=== PATIENT | female | born 1985 | race Caucasian/White ===

== ENCOUNTER → 2018-04-16 12:22 | Outpatient (CLI) | payer OTHER, SELFPAY ==
--- NOTE | 2018-04-16 | XR_ITS ---
XR lumbar spine min 4V Ordering Physician: Luciano Falk MD Patient Age: 32 years: Female HISTORY: ITS.REASON: ACUTE MID LBP WITHOUT SCIATICA Low back pain TECHNIQUE: Five-view lumbar spine series COMPARISON : CT lumbar spine 04/07/2014, & plain films lumbar spine 04/03/2014 FINDINGS . Large patient. Imaging is somewhat decreased resolution due to the patient's large size. Vertebral bodies appear intact L5/S1. Mild Degenerative disc space narrowing. Previous 2013 CT showed left paracentral disc protrusion.. Question, & suspect may have been been interval discectomy, laminectomy noting what appears to be partial resection at the inferior spinous process of L5 on the lateral view. Correlation clinically required. Mild degenerative facet changes L5-S1 L4/5 bilaterally evident. The other disc spaces the lumbar spine appear intact pedicles transverse processes SI joints unremarkable. Moderate stool throughout the colon IMPRESSION.......... No acute findings. Mild degenerative disc space narrowing at L5/S1. Question Possible previous discectomy & laminectomy at this L5/S1 level. -Question/ & suggestion partial resection inferior L5 spinous process on lateral view.
== END ==
PROVIDERS: PCP Internal Medicine Adolescent Medicine; Visit Provider Internal Medicine Adolescent Medicine
DX: M54.5 Low back pain (principal)
CPT/HCPCS: 72110

== ENCOUNTER → 2018-05-10 13:59 | Outpatient (POV) | payer OTHER, SELFPAY | PROVIDERS: Family Provider Internal Medicine Adolescent Medicine; PCP Internal Medicine Adolescent Medicine; Visit Provider Nurse Practitioner Acute Care | DX: Z00.00 Encounter for general adult medical examination without abnormal findings (principal) ==

== ENCOUNTER → 2018-05-11 10:33 | Outpatient (CLI) | payer OTHER, SELFPAY ==
--- NOTE | 2018-05-11 10:41 | NVE_ITS ---
Venous Exam Indications: 729.5 Pain in limb. IMPRESSIONS 1. There is no evidence of significant Reflux. 2. No evidence of deep or superficial vein thrombosis involving the right lower extremity 3. No evidence of deep or superficial vein thrombosis involving the left lower extremity Complete lower extremity venous duplex evaluation. Doppler flow study including spectral analysis, color and alberto scale imaging. Location: Vascular laboratory. Patient status: Outpatient. Tables: Venous flow and imaging: + +-------+ + Location Overall Flow properties + +-------+ + Right common femoral Patent Normal phasicity; spontaneous; normal augmentation; compressible + +-------+ + Right saphenofemoral junction Patent Compressible + +-------+ + Right profunda femoral Patent Compressible + +-------+ + Right femoral Patent Normal phasicity; spontaneous; normal augmentation; compressible; no reflux + +-------+ + Right greater saphenous Patent Normal phasicity; spontaneous; normal augmentation; compressible + +-------+ + Right popliteal Patent Normal phasicity; spontaneous; normal augmentation; compressible + +-------+ + Right posterior tibial Patent Compressible + +-------+ + Right peroneal Patent Compressible + +-------+ + Right gastrocnemius Patent Compressible + +-------+ + Right soleal Patent Compressible + +-------+ + Left common femoral Patent Normal phasicity; spontaneous; normal augmentation; compressible + +-------+ + Left saphenofemoral junction Patent Compressible + +-------+ + Left profunda femoral Patent Compressible + +-------+ + Left femoral Patent Normal phasicity; spontaneous; normal augmentation; compressible + +-------+ + Left greater saphenous Patent Normal phasicity; spontaneous; normal augmentation; compressible + +-------+ + Left popliteal Patent Normal phasicity; spontaneous; no
== END ==
PROVIDERS: Family Provider Internal Medicine Adolescent Medicine; PCP Internal Medicine Adolescent Medicine; Visit Provider Internal Medicine Adolescent Medicine
DX: M79.604 Pain in right leg (principal)
CPT/HCPCS: 93970

== ENCOUNTER → 2018-05-28 08:40 | Outpatient (CLI) | payer OTHER, SELFPAY ==
--- NOTE | 2018-05-28 08:44 | CT_ITS ---
CT angio chest HISTORY: Palpitations, chest pain, tension ascending aorta, heart murmur ITS.REASON: cta chest ORDERING PHYSICIAN: Woo Cleaning MD PATIENT AGE: 33 years COMPARISON: None TECHNIQUE: Axial images obtained following the administration of 75 mL of Isovue 370 . Sagittal, and coronal reformatted images are also generated and reviewed. All CT scans at the facility use one or more dose reduction, viz: automated exposure control, ma/kV adjustment per patient size (including targeted exams where dose is matched to indication, i.e. head), or iterative reconstruction technique. FINDINGS: PULMONARY ARTERIES:No pulmonary embolus evident. AORTA:No acute finding. No thoracic aortic aneurysm or dissection evident LUNGS:There is calcified granuloma right upper lobe. There are minimal dependent changes in the lung bases. Lungs are otherwise clear PLEURAL SPACES:No significant effusion. No evidence of pneumothorax. HEART:Unremarkable. Normal heart size. No significant pericardial effusion. MEDIASTINAL AND HILAR STRUCTURES:No mediastinal or hilar mass evident. No dominant adenopathy. BONY STRUCTURES:No acute bony abnormalities apparent LYMPH NODES:No enlarged lymph nodes evident UPPER ABDOMEN:Unremarkable IMPRESSION: No acute finding. No evidence of aortic aneurysm or dissection and no evidence of pulmonary embolus
== END ==
PROVIDERS: Family Provider Internal Medicine Adolescent Medicine; PCP Internal Medicine Adolescent Medicine; Visit Provider Internal Medicine
DX: R07.9 Chest pain, unspecified (principal); R06.00 Dyspnea, unspecified; R00.2 Palpitations; F41.9 Anxiety disorder, unspecified; G43.909 Migraine, unspecified, not intractable, without status migrainosus; I10 Essential (primary) hypertension; I95.1 Orthostatic hypotension; J45.909 Unspecified asthma, uncomplicated; K21.9 Gastro-esophageal reflux disease without esophagitis; Q79.6 Ehlers-Danlos syndromes; R42 Dizziness and giddiness; Z85.42 Personal history of malignant neoplasm of other parts of uterus; Z86.711 Personal history of pulmonary embolism; Z86.718 Personal history of other venous thrombosis and embolism; Z87.891 Personal history of nicotine dependence
CPT/HCPCS: 71275; Q9967

== ENCOUNTER → 2018-06-22 14:54 | Outpatient (CLI) | payer OTHER, SELFPAY ==
--- NOTE | 2018-06-22 14:56 | XR_ITS ---
XR foot wt bearing RT 3V HISTORY: ITS.REASON: pain ORDERING PHYSICIAN: Camilla Darden DPM PATIENT AGE: 33 years COMPARISON: None FINDINGS: No fracture or dislocation. No lytic or blastic change. There is normal mineralization.. The joint spaces are well-preserved. No significant degenerative/arthritic changes. No erosive changes evident. There is a small calcaneal spur without erosive change IMPRESSION: Negative, no acute finding
--- NOTE | 2018-06-22 14:56 | XR_ITS ---
XR ankle wt bearing RT min 3V HISTORY: ITS.REASON: pain ORDERING PHYSICIAN: Camilla Darden DPM PATIENT AGE: 33 years Comparison: None FINDINGS: No fracture or dislocation. No lytic or blastic change. There is normal mineralization.. The joint spaces are well-preserved. No significant degenerative/arthritic changes. No erosive changes evident. IMPRESSION: Negative ankle, no acute finding
--- NOTE | 2018-06-22 14:56 | XR_ITS ---
XR foot wt bearing LT 3V HISTORY: ITS.REASON: pain ORDERING PHYSICIAN: Camilla Darden DPM PATIENT AGE: 33 years COMPARISON: None FINDINGS: No fracture or dislocation. No lytic or blastic change. There is normal mineralization.. The joint spaces are well-preserved. No significant degenerative/arthritic changes. No erosive changes evident. Small calcific density overlies the mid aspect of the cuneiforms on the lateral view nonspecific. IMPRESSION: Negative, no acute finding
--- NOTE | 2018-06-22 14:56 | XR_ITS ---
XR ankle wt bearing LT min 3V HISTORY: ITS.REASON: pain ORDERING PHYSICIAN: Camilla Darden DPM PATIENT AGE: 33 years Comparison: None FINDINGS: No fracture or dislocation. No lytic or blastic change. There is normal mineralization.. The joint spaces are well-preserved. No significant degenerative/arthritic changes. No erosive changes evident. IMPRESSION: Negative ankle, no acute finding
== END ==
PROVIDERS: PCP Internal Medicine Adolescent Medicine; Visit Provider Podiatrist
DX: M19.072 Primary osteoarthritis, left ankle and foot (principal); M19.071 Primary osteoarthritis, right ankle and foot; M21.6X1 Other acquired deformities of right foot; M21.6X2 Other acquired deformities of left foot; M76.72 Peroneal tendinitis, left leg; M25.371 Other instability, right ankle; Q66.89 Other specified congenital deformities of feet
CPT/HCPCS: 73610; 73630

== ENCOUNTER → 2018-07-01 12:30 | Outpatient (CLI) | payer OTHER, SELFPAY ==
--- NOTE | 2018-07-01 12:32 | MR_ITS ---
MR foot LT wo/w con HISTORY: Right foot pain, pain in the entire foot ITS.REASON: pain ORDERING PHYSICIAN: Camilla Darden DPM PATIENT AGE: 33 years Comparison: None TECHNIQUE: Standard multiplanar multiecho sequences are performed without and with gadolinium enhancement. FINDINGS: The exam is performed of the entire foot and ankle. Larger field of view decreases the sensitivity of the exam. No obvious fracture or dislocation.. There is a small amount of fluid at the talonavicular joint with mild osteoarthritic changes of the talonavicular joint. Small amount of fluid is also present along the superior aspect of the calcaneus at the posterior talar calcaneal joint. There is increased T2 signal involving the central and inferior aspect of the calcaneus. This area measures approximate 8 mm. Just superior to this in the subarticular region of the posterior subtalar articulation there is a cystic area measuring 7 x 3 mm. This is of questioned clinical significance. There is some mild widening of the distal aspect of the posterior tibialis tendon just proximal to the navicular insertion suggesting tendinopathy/tendinosis with only slight increase T2 signal. No obvious ligamentous abnormalities. Small amount of fluid also noted at the first through fifth metatarsophalangeal joints. IMPRESSION: 1. Tendinopathy/tendinosis of the distal aspect of the posterior tibialis tendon. 2. First through fifth metatarsophalangeal joint synovitis 3. Nonspecific edema involves the mid aspect of the calcaneus with a small cystic area in the mid aspect of the calcaneus as well. 4. Osteoarthritic change of the talonavicular joint with small amount of fluid at this region
== END ==
PROVIDERS: PCP Internal Medicine Adolescent Medicine; Visit Provider Podiatrist
DX: Q66.89 Other specified congenital deformities of feet (principal)
CPT/HCPCS: 73720; A9576

== ENCOUNTER → 2018-07-16 12:56 | Outpatient (CLI) | payer OTHER, SELFPAY ==
--- NOTE | 2018-07-16 13:00 | MR_ITS ---
MR ankle RT wo con CLINICAL INDICATION: Ankle pain and instability ITS.REASON: pain ORDERING PHYSICIAN: Camilla Darden DPM PATIENT AGE: 33 years Comparison: 06/22/2018 TECHNIQUE: Routine multiplanar multiecho sequences are performed without contrast. The patient gives a history of allergic reaction to gadolinium therefore, gadolinium was not utilized. FINDINGS: There is slight increased T2 bone marrow signal intensity involving the mid aspect of the calcaneus laterally just inferior to the posterior subtalar joint. There is minimal increased T2 signal involving the anterior aspect of the calcaneus at the mid subtalar region. Small amount fluid is present posterior to the posterior talocalcaneal joint space. There is some increased T2 signal within the soft tissues in this region. Small amount fluid is also present posterior tibial talar joint. The talar dome has an unremarkable appearance. Small area of loculated fluid signal intensity is present along the anterolateral aspect of the midfoot adjacent to the anterior and lateral aspect of the distal aspect of the talus. This area measures approximately 19 x 7 mm and does not appear to be associated with the extensor digitorum longus. No obvious ligamentous or tendinous abnormality. IMPRESSION: 1. Bone marrow edema involving the mid aspect of the calcaneus which could be postinflammatory or posttraumatic. 2. Small posterior talocalcaneal effusion with a small amount loculated fluid at the posterior tibiotalar joint as well. 3. Loculated small collection of fluid along the anterior and lateral aspect of the distal talus.
--- NOTE | 2018-07-16 13:00 | MR_ITS ---
MR foot RT wo con CLINICAL INDICATION: Foot and ankle pain and instability ITS.REASON: pain ORDERING PHYSICIAN: Camilla Darden DPM PATIENT AGE: 33 years Comparison: None FINDINGS: Mild degree of artifact which does somewhat obscure fine detail There is slight increased T2 bone marrow signal intensity involving the mid aspect of the calcaneus laterally just inferior to the posterior subtalar joint. There is minimal increased T2 signal involving the anterior aspect of the calcaneus at the mid subtalar region. Small amount fluid is present posterior to the posterior talocalcaneal joint space. There is some increased T2 signal within the soft tissues in this region. Small amount fluid is also present posterior tibial talar joint. The talar dome has an unremarkable appearance. Small area of loculated fluid signal intensity is present along the anterolateral aspect of the midfoot adjacent to the anterior and lateral aspect of the distal aspect of the talus. This area measures approximately 19 x 7 mm and does not appear to be associated with the extensor digitorum longus. No obvious ligamentous or tendinous abnormality. No fracture or dislocation. No evidence of stress fracture. Normal alignment. A small amount fluid is present along the distal aspect of the first and second metatarsal junction IMPRESSION: 1. Bone marrow edema involving the mid aspect of the calcaneus which could be postinflammatory or posttraumatic. 2. Small posterior talocalcaneal effusion with a small amount loculated fluid at the posterior tibiotalar joint as well. 3. Loculated small collection of fluid along the anterior and lateral aspect of the distal talus. 4. Small amount of fluid between the distal aspect of the first and second metatarsal which may be due to intermetatarsal bursitis
[2018-07-16 14:45] LABS: Thyroid Stimulating Hormone 2.59 uIU/ml (0.358-3.740); Uric Acid 5.9 mg/dL (2.6-7.2)
[2018-07-16 15:13] LABS: Erythrocyte Sedimentation Rate 26 mm/hr (0-20)
[2018-07-19 09:34] LABS: Folate 11.1 ng/mL (>3.0); RA Latex Turbid. <10.0 IU/mL (0.0-13.9); Vitamin B12 593 pg/mL (232-1245); Vitamin D 25 Hydroxy 20.5 ng/mL (30.0-100.0)
[2018-07-20 10:28] LABS: Antinuclear Antibodies, IFA Positive (.)
== END ==
PROVIDERS: PCP Internal Medicine Adolescent Medicine; Visit Provider Podiatrist
DX: Q66.89 Other specified congenital deformities of feet (principal)
CPT/HCPCS: 36415; 73718; 73721; 82607; 82652; 82746; 84443; 84550; 85651; 86038; 86431

== ENCOUNTER → 2018-07-16 14:36 | Outpatient (CLI) | payer OTHER, SELFPAY ==
--- NOTE | 2018-07-16 14:50 | MM_ITS ---
MM Dig screening mamm BI w/CAD ORDERING PHYSICIAN : Luciano Falk MD PATIENT AGE: 33 years GENDER: Female COMPARISON: We have been waiting to obtain previous comparison mammogram studies from [facility] but they have not arrived. And in this appears to be a negative mammogram shows dictated facilitate patient care INDICATION: ITS.REASON: SCREENING. No hormones. Previous stereotactic biopsy left breast. Family history. Mother with breast cancer age 27. Maternal grandmother with breast cancer age 50. Maternal aunt with breast cancer age 40 TECHNIQUE: Standard CC and MLO images were obtained. R2 CAD reviewed. Additional nipple profile MLO views bilateral FINDINGS: Low-density breast with generalized fatty replacement. No dominant mass nor suspicious calcifications in either breast. RIGHT BREAST:No areas of significant concern. Follow-up in one year LEFT BREAST: . A metallic clip from previous stereotactic biopsy upper-outer quadrant left breast. Scant area minimal nodularity at left breast on cc view dissipates on the2 MLO views. Other to what appear to be small intramammary nodes in the deep axillary tail the left breast. These can be followed in one year. No significant areas of concern. IMPRESSION: No areas of significant concern in either breast. .. Low-density breast. Bilateral follow-up in one year recommended & should be encouraged-, particularly in view of family history BI-RADS Category: 2 Benign Finding(s) RECOMMENDED FOLLOW-UP: 1YR 1 YEAR FOLLOW-UP (A letter has been sent to the patient regarding results of the study.)
== END ==
PROVIDERS: PCP Internal Medicine Adolescent Medicine; Visit Provider Internal Medicine Adolescent Medicine
DX: N64.4 Mastodynia (principal)
CPT/HCPCS: 77067

== ENCOUNTER → 2018-08-12 12:00 | Outpatient (CLI) | payer OTHER, SELFPAY ==
--- NOTE | 2018-08-12 12:02 | XR_ITS ---
XR knee LT 4V, XR knee RT 4V Ordering Physician: Zully Hannon MD Patient Age: 33 years: Female HISTORY: ITS.REASON: b/l knee pain . Technique: Weightbearing AP, lateral and Krishnamurthy views were performed as well as oblique. Performed at left knee and right knee. === LEFT KNEE . Joint spaces adequate with no joint effusion. Medial and lateral compartment adequate maintained. Satisfactory patellofemoral relationships on the sunrise view Bones well mineralized. Soft tissues unremarkable ======= RIGHT KNEE Joint spaces adequate with no joint effusion. Medial and lateral compartment adequate maintained. Satisfactory patellofemoral relationships on the sunrise view Bones well mineralized. Soft tissues unremarkable IMPRESSION Right and left knee intact. Right and left knee joint spaces overall fairly well-maintained with no joint effusion evident either knee.
--- NOTE | 2018-08-12 14:56 | NVE_ITS ---
Venous Exam Indications: 729.81 Swelling of limb. 729.5 Pain in limb x 8 yrs IMPRESSIONS 1. There is no evidence of significant Reflux. 2. No evidence of deep or superficial vein thrombosis involving the right lower extremity and left lower extremity History: PMH: Pulmonary embolus. Deep vein thrombosis. Risk factors: Obese. Malignancy: skin, uterine. Complete lower extremity venous duplex evaluation. Doppler flow study including spectral analysis, color and alberto scale imaging. Location: Vascular laboratory. Patient status: Outpatient. Tables: Venous flow and imaging: + + + + + Location Overall Flow properties Comments + + + + + Right common femoral Patent Normal phasicity; spontaneous; normal augmentation; compressible + + + + + Right saphenofemoral Patent Compressible junction + + + + + Right profunda Patent Compressible femoral + + + + + Right femoral Patent Normal phasicity; spontaneous; normal augmentation; compressible; no reflux + + + + + Right greater Patent Normal phasicity; saphenous spontaneous; normal augmentation; compressible + + + + + Right popliteal Patent Normal phasicity; spontaneous; normal augmentation; compressible + + + + + Right posterior Difficult Compressible Difficult to tibial study image. + + + + + Right peroneal Difficult Compressible Difficult to study image. + + + + + Right gastrocnemius Not visualized + + + + + Right soleal Not visualized + + + + + Left common femoral Patent Normal p
== END ==
PROVIDERS: PCP Internal Medicine Adolescent Medicine; Visit Provider Orthopaedic Surgery
DX: M25.561 Pain in right knee (principal); M25.562 Pain in left knee
CPT/HCPCS: 73564; 93970

== ENCOUNTER → 2018-08-26 07:49 | Outpatient (CLI) | payer OTHER, SELFPAY ==
--- NOTE | 2018-08-26 07:52 | MR_ITS ---
MR knee LT wo con HISTORY: Posterior knee pain, hyperextension injury with instability ITS.REASON: left knee pain/ without contrast ORDERING PHYSICIAN: Zully Hannon MD PATIENT AGE: 33 years Comparison: 08/12/2019 TECHNIQUE: Standard multiplanar multiecho sequences are performed without contrast. FINDINGS: The knee is hyperextended. The posterior cruciate in the anterior cruciate ligaments are unremarkable. The collateral ligaments have an unremarkable appearance. No evidence of meniscal tear. Quadriceps tendon is unremarkable. The patellar tendon is buckled secondary to the hyperextension of the knee. There is lateral subluxation of the patella with a shallow trochlea groove. The medial trochlear facet appears somewhat small suggesting trochlear dysplasia. The patellar cartilage is preserved. There are small amount of fluid within the knee joint. No bone bruises are evident IMPRESSION: 1. Hyperextension of the knee with buckling of the patellar tendon 2. 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 3. No internal derangement
== END ==
PROVIDERS: PCP Internal Medicine Adolescent Medicine; Visit Provider Orthopaedic Surgery
DX: M21.869 Other specified acquired deformities of unspecified lower leg (principal)
CPT/HCPCS: 73721

== ENCOUNTER → 2018-09-09 12:51 | Outpatient (CLI) | payer OTHER, SELFPAY ==
--- NOTE | 2018-09-09 12:51 | MR_ITS ---
MR knee RT wo con HISTORY: ITS.REASON: Rt knee pain ORDERING PHYSICIAN: Zully Hannon MD PATIENT AGE: 33 years Comparison: 08/12/2018 TECHNIQUE: Standard multiplanar multiecho sequences are performed without contrast. The study is performed with a body coil therefore, there is some decrease in resolution FINDINGS: The cruciate ligaments, collateral ligaments, patellar tendon, and quadriceps tendon are intact. No evidence of meniscal tear. The patellar cartilage is preserved. There is some mild lateral patellar subluxation and there is shallow trochlear groove. The patellofemoral ligaments do appear intact. There is a small amount fluid within the knee joint. No fracture or dislocation. IMPRESSION: 1. 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 No evidence of internal derangement. 3. Small knee joint effusion
== END ==
PROVIDERS: PCP Internal Medicine Adolescent Medicine; Visit Provider Orthopaedic Surgery
DX: M25.561 Pain in right knee (principal)
CPT/HCPCS: 73721

== ENCOUNTER → 2018-10-11 14:43 | Outpatient (CLI) | payer OTHER, SELFPAY ==
[2018-10-11 15:07] LABS: Microscopic, Urine URINE MICROSCOPIC (MICROSCOPIC)
--- NOTE | 2018-10-11 15:28 | XR_ITS ---
XR chest 2V HISTORY: ITS.REASON: ASTHMA,H/O TOBACCO USE ORDERING PHYSICIAN: Camilla Darden DPM PATIENT AGE: 33 years COMPARISON: None FINDINGS: The cardiomediastinal silhouette and pulmonary vascularity are within normal limits. There is an ill-defined 1 cm nodular density in the right midlung zone laterally. This corresponds to a previously noted partially calcified nodule as seen on chest CT of 05/28/2018. The remaining lungs are clear. No acute bony findings. IMPRESSION: No change 1 cm nodule right midlung laterally consistent with a granuloma. No acute finding
[2018-10-11 15:35] LABS: Basophils % 0.3 % (0.1-2.0); Eosinophils # 0.3 K/mm3 (0.0-0.4); Eosinophils % 3.5 % (0.1-12.0); Hematocrit 39.4 % (37.0-47.0); Hemoglobin 12.8 g/dL (12.2-16.2); Lymphocytes # 2.8 K/mm3 (0.7-4.5); Lymphocytes % 33.3 % (10-50); Mean Corpuscular HGB Conc 32.4 g/dL (31.8-35.4); Mean Corpuscular Hemoglobin 26.5 pg (27.0-31.2); Mean Corpuscular Volume 81.7 fl (81-99); Mean Platelet Volume 7.4 fl (7.4-10.4); Monocytes # 0.5 K/mm3 (0.1-1.0); Monocytes % 5.7 % (1.7-9.3); Neutrophils # 4.8 K/mm3 (1.8-7.8); Neutrophils % 57.2 % (37.0-80.0); Platelet Count 302 K/mm3 (142-424); Red Blood Count 4.83 M/mm3 (4.20-5.40); Red Cell Distribution Width 14.7 % (11.5-17.5); White Blood Count 8.4 K/mm3 (4.8-10.8)
[2018-10-11 15:38] LABS: Prothrombin Time 10.3 seconds (9.4-11.8)
[2018-10-11 16:01] LABS: Amphetamine/Metha Screen,Urine Positive ng/mL (<1000); Barbiturates Screen,Urine Negative ng/mL (<200); Benzodiazepines Screen,Urine Negative ng/mL (<200); Cannabinoid Screen,Urine Positive ng/mL (<50); Cocaine Screen,Urine Negative ng/mL (<300); Methadone Screen,Urine Negative ng/mL (<300); Opiate Screen,Urine Positive ng/mL (<300); Phencyclidine Screen,Urine Negative ng/mL (<25)
[2018-10-11 16:41] LABS: Alanine Aminotransferase 21 U/L (12-78); Albumin Level 3.5 gm/dL (3.4-5.0); Albumin/Globulin Ratio 0.8 (1.1-1.8); Alkaline Phosphatase 147 U/L (46-116); Anion Gap 13.9 mEq/L (5-15); Aspartate Amino Transferase 18 U/L (15-37); Bilirubin,Total 0.4 mg/dL (0.2-1.0); Blood Urea Nitrogen 14 mg/dL (7-18); Carbon Dioxide 28 mmol/L (21.0-32.0); Chloride 103 mmol/L (98-107); Estimated Glomerular Filt Rate 63 ml/min (>60); GFR (African American) 77 ML/MIN (>60); Globulin 4.2 gm/dl (1.3-3.2); Glucose 87 mg/dL (74-106); Potassium 3.9 mmoL/L (3.5-5.1); Sodium 141 mmol/L (136-145); Total Protein,Serum 7.7 gm/dL (6.4-8.2)
[2018-10-12 00:41] LABS: Bilirubin,Urine Negative (Negative); Blood, Urine TRACE-I (Negative); Color,Urine YELLOW (Yellow); Glucose,Urine (UA) Negative (Negative); Ketones,Urine Negative (Negative); Leukocyte Esterase,Urine Negative (Negative); Nitrate,Urine Negative (Negative); PH,Urine 5.5 (5.0-8.5); Protein,Urine Negative (Negative); Specific Gravity, Urine >= 1.030 (1.005-1.030); Urobilinogen,Urine 0.2 EU/dl (0.2)
[2018-10-12 00:49] LABS: Appearance,Urine Slightly Cloudy (Clear)
[2018-10-12 01:04] LABS: Amorphous Sediment,Urine 3+ /lpf; Bacteria,Urine 1+ /lpf; Calcium Oxalate Crystals,Urine 1+ /lpf; WBC,Urine Occasional #/hpf (0-3)
[2018-10-13 08:06] LABS: Vitamin D 25 Hydroxy 19.1 ng/mL (30.0-100.0)
== END ==
PROVIDERS: PCP Internal Medicine Adolescent Medicine; Visit Provider Podiatrist
DX: Z01.818 Encounter for other preprocedural examination (principal); M25.372 Other instability, left ankle
CPT/HCPCS: 36415; 71046; 80053; 80305; 81001; 82652; 85025; 85610; 93005

== ENCOUNTER → 2018-11-01 06:41 | Outpatient (CLI) | payer OTHER, SELFPAY ==
--- NOTE | 2018-11-01 06:44 | CA_ITS ---
PROCEDURE: 2-D M-mode and color Doppler study INDICATIONS FOR THE TEST: Chest pain + COPD Heart Murmur Tobacco Smokingex Palpitations Fatigue Syncope Edema Hypertension+Diabetes Mellitus Rheumatic Fever SOB SEALS+Obesity Hyperlipidemia Family History HD Additional History a-fib,Estevan-Danlos disease,cardiac clearance PATIENT INFORMATION HEIGHT: 69 WEIGHT:300 GENDER: Female B/P:105/59 2-D/M-MODE INTERPRETATION: 2-D MEASUREMENTS OBSERVED VALUES IN CMS Right Ventricular Dimension (RVDd) 2.4 Interventricular Septum (Thickness)(IVsd) 0.6 Left Ventricular Internal Dimensions(LVIDd) 5.3 Left Ventricular Posterior Wall (Thickness)(LVPWd) 0.8 Aortic Root 2.3 Aortic Cusp Separation 2.1 Left Atrial Dimensions (LAD) 4.0 2D 1. Left atrium is normal size, left ventricle is normal size, there is no concentric left ventricular hypertrophy, visually estimated ejection fraction of 55% with no regional wall motion abnormality. 2. The right atrium and right ventricle are normal size and contractility. 3. The aortic, mitral and tricuspid valvular grossly normal. 4. The pulmonic valve is poorly visualized. 5. No significant pericardial effusion noted. DOPPLER INTERROGATION: Doppler interrogation of the aortic, mitral and tricuspid valve is essentially unremarkable, diastolic parameters are within normal range. CONCLUSION: 1. Normal left ventricular size, preserved left ventricular systolic function, visually estimated ejection fraction 55% with no regional wall motion abnormality, diastolic parameters are within normal range. 2. No significant pericardial effusion noted.
--- NOTE | 2018-11-01 06:46 | NM_ITS ---
History and Indications: Family history, chest pain, shortness of breath, syncope and fatigue Procedure: Patient received a 0.4 mg of intravenous Lexiscan, resting heart rate was 70 bpm resting blood pressure 153/94, with Lexiscan maximum heart rate achieved was 95 bpm which is less than 85% of the maximum] heart rate and a blood pressure was 156/93. With Lexiscan patient complained of dizziness Electrocardiogram: Resting electrocardiogram showed sinus rhythm with Lexiscan there is less than 1.[address] segment depression noted from the baseline EKG. The EKG portion of the Lexiscan Myoview is nondiagnostic. Cardiac stress and resting SPECT images: Cardiac stress and resting SPECT images were obtained using technetium 99 Myoview 31.4 mCi at stress and 10.9 mCi at rest. Gated SPECT further analysis of segmental wall motion and admission of the ejection fraction also done. Cardiac stress and resting SPECT images show a fixed defect in the anterior wall normal contractility in the gated SPECT is likely secondary to soft tissue attenuation, no reversible ischemia seen. Computer derived ejection fraction is over 65% with no regional wall motion abnormality, right ventricle is normal size and contractility. Conclusion: 1. The EKG portion of the Lexiscan Myoview is nondiagnostic. 2. No scintigraphic evidence of reversible ischemia seen, computer derived ejection fraction is over 65% with no regional wall motion abnormality, right ventricle is normal size and contractility. 3. Normal Lexiscan Myoview study.
--- NOTE | 2018-11-01 07:46 | HMH.ITSHM ---
Current Home Medications as stated by this patient Alexei Macias or liability claims representative. []propranolol
== END ==
PROVIDERS: PCP Internal Medicine Adolescent Medicine; Visit Provider Internal Medicine
DX: R07.9 Chest pain, unspecified (principal); R06.09 Other forms of dyspnea; I48.0 Paroxysmal atrial fibrillation; Q79.6 Ehlers-Danlos syndromes; F41.9 Anxiety disorder, unspecified; G43.909 Migraine, unspecified, not intractable, without status migrainosus; I10 Essential (primary) hypertension; J45.909 Unspecified asthma, uncomplicated; K21.9 Gastro-esophageal reflux disease without esophagitis; R00.2 Palpitations; R42 Dizziness and giddiness; R55 Syncope and collapse; Z01.818 Encounter for other preprocedural examination; Z85.42 Personal history of malignant neoplasm of other parts of uterus; Z86.711 Personal history of pulmonary embolism; Z86.718 Personal history of other venous thrombosis and embolism; Z87.891 Personal history of nicotine dependence
CPT/HCPCS: 78452; 93017; 93306; A9502; J2785

== ENCOUNTER 2018-12-02 20:24 | Observation (INO) ==
[2018-12-02 21:23] LABS: Basophils % 0.2 % (0.1-2.0); Eosinophils # 0.1 K/mm3 (0.0-0.4); Eosinophils % 0.3 % (0.1-12.0); Hematocrit 48.7 % (37.0-47.0); Hemoglobin 16.6 g/dL (12.2-16.2); Lymphocytes % 19.7 % (10-50); Mean Corpuscular HGB Conc 34.1 g/dL (31.8-35.4); Mean Corpuscular Hemoglobin 26.5 pg (27.0-31.2); Mean Corpuscular Volume 77.6 fl (81-99); Mean Platelet Volume 6.7 fl (7.4-10.4); Monocytes # 1.4 K/mm3 (0.1-1.0); Monocytes % 7.1 % (1.7-9.3); Neutrophils # 14.6 K/mm3 (1.8-7.8); Neutrophils % 72.7 % (37.0-80.0); Platelet Count 426 K/mm3 (142-424); Red Blood Count 6.27 M/mm3 (4.20-5.40); Red Cell Distribution Width 13.5 % (11.5-17.5); White Blood Count 20.1 K/mm3 (4.8-10.8)
[2018-12-02 21:43] LABS: Albumin Level 4.4 gm/dL (3.4-5.0); Albumin/Globulin Ratio 0.7 (1.1-1.8); Anion Gap 19.9 mEq/L (5-15); Bilirubin,Total 0.4 mg/dL (0.2-1.0); C-Reactive Protein 0.7 mg/L (0.0-0.9); Calcium 9.4 mg/dL (8.5-10.1); Globulin 6.1 gm/dl (1.3-3.2); Total Protein,Serum 10.5 gm/dL (6.4-8.2)
[2018-12-02 21:46] LABS: Potassium 2.9 mmoL/L (3.5-5.1)
--- NOTE | 2018-12-02 22:08 | Emergency Department Note ---
ED Disposition Clinical Impression: Gastroenteritis, Hypokalemia, Acute renal insufficiency Leukocytosis Qualifiers: Leukocytosis type: unspecified Qualified Code(s): D72.829 - Elevated white blood cell count, unspecified Obesity Qualifiers: Obesity type: due to excess calories Obesity classification: adult class 3 (BMI >= 40) Serious obesity comorbidity presence: with serious comorbidity Body mass index: BMI 40.0-44.9 Qualified Code(s): E66.01 - Morbid (severe) obesity due to excess calories; Z68.41 - Body mass index (BMI) 40.0-44.9, adult Disposition: Admitted as Observation Condition on Discharge: Fair - Critical Care Critical Care Time: No Attestation: On 12/02/18, the high probability of a clinically significant, sudden or life threatening deterioration of the following system(s) required my full and direct attention, intervention and personal management. The time I documented below is in addition to time spent performing reported procedures but includes the following listed in this critical care notation. Medical Decision Making - Medical Records Medical records reviewed: Yes: I reviewed the patient's medical records. - Dinesh Inquiry Pt receiving controlled substance: No Vital Signs: 12/02/18 20:37 Temperature 99 F Temperature Source Oral Pulse Rate [Right] 89 Respiratory Rate 18 Blood Pressure [Right Arm] 137/113 H Blood Pressure Mean [Right Arm] 121 Blood Pressure Source [Right Arm] Automatic Cuff Blood Pressure Position [Right Arm] Sitting 02 Sat by Pulse Oximetry 97 Oxygen Delivery Method Room Air - Lab Data Lab results reviewed: Yes: I reviewed the patient's lab results. Lab Results 12/02/18 20:15: Urine Color Dk yellow, Urine Appearance Sl cloudy, Urine pH 5.5, Ur Specific [place] >= 1.030, Urine Protein 3+, Urine Glucose (UA) Negative, Urine Ketones Negative, Urine Blood 3+, Urine Nitrate Negative, Urine Bilirubin Negative, Urine Urobilinogen 0.2, Ur Leukocyte Esterase Negative, Urine WBC Occasional, Ur Squamous Epith Cells Occasional, Amorphous Sediment Trace, Urine Bacteria 1+ 12/02/18 21:00: WBC 20.1 H*, RBC 6.27 H, Hgb 16.6 H, Hct 48.7 H, MCV 77.6 L, MCH 26.5 L, MCHC 34.1, RDW 13.5, Plt Count 426 H, MPV 6.7 L, Neut % (Auto) 72.7, Lymph % (Auto) 19.7, [place] % (Auto) 7.1, Eos % (Auto) 0.3, Baso % (Auto) 0.2, Neut # (Auto) 14.6 H, Lymph # (Auto) 4.0, [place] # (Auto) 1.4 H, Eos # (Auto) 0.1, Baso # (Auto) 0.0, Total Counted 100, Neutrophils % (Manual) 72, Lymphocytes % (Manual) 23, Monocytes % (Manual) 5, Platelet Estimate Normal, Anisocytosis 1+, ESR 39 H 12/02/18 21:00: Sodium 137, Potassium 2.9 L*, Chloride 96 L, Carbon Dioxide 24, Anion Gap 19.9 H, BUN 37 H, Creatinine 1.90 H, Estimated Creat Clear 44, Estimated GFR 30 L, Est GFR ( Amer) 37 L, Glucose 122 H, Calcium 9.4, Total Bilirubin 0.4, AST 11 L, ALT 20, Alkaline Phosphatase 139 H, C-Reactive Protein 0.7, Total Protein 10.5 H D, Albumin 4.4, Globulin 6.1 H, Albumin/Globulin Ratio 0.7 L, Amylase 94, Lipase 354 12/02/18 21:00: Lactate 1.7 Result diagrams: 12/02/18 21:00 12/02/18 21:00 Orders (Tests/Meds): ED MEDICATIONS Generic Name Dose Route Start Last Admin Trade Name Freq PRN Reason Stop Dose Admin Sodium Chloride 1,000 mls @ 999 mls/hr 12/02/18 21:15 12/02/18 21:18 Sod Chlor 0.9% 1000ml Bag IV 12/02/18 22:15 999 mls/hr .Q1H1M CLARISA Administration Sodium Chloride 1,000 mls @ 999 mls/hr 12/02/18 21:15 12/03/18 01:09 Sod Chlor 0.9% 1000ml Bag IV 12/02/18 22:15 999 mls/hr .Q1H1M CLARISA Administration Discontinued Medications Generic Name Dose Route Start Last Admin Trade Name Freq PRN Reason Stop Dose Admin Diatrizoate Meglum/Diatrizoate Sod 30 ml 12/02/18 20:45 12/02/18 21:19 Gastrografin 66%-10% 30ml PO 12/02/18 20:46 30 ml ONCE ONE Administration Famotidine 20 mg 12/03/18 01:02 12/03/18 01:08 Pepcid 20mg/2ml Vial IV 12/03/18 01:03 20 mg ONCE ONE Administration Ketorolac Tromethamine 30 mg 12/02/18 21:06 12/02/18 21:18 Toradol 30mg/Ml Vial IV 12/02/18 21:07 30 mg ONCE ONE Administration Metoclopramide HCl 10 mg 12/03/18 01:02 12/03/18 01:09 Reglan 10mg/2ml Vial IVP 12/03/18 01:03 10 mg ONCE ONE Administration Ondansetron HCl 4 mg 12/02/18 21:05 12/02/18 21:18 Zofran 4mg/2ml Vial IV 12/02/18 21:06 4 mg ONCE ONE Administration Potassium Chloride 20 meq 12/03/18 02:58 Klor-Con 20meq Tablet PO 12/03/18 02:59 ONCE ONE Promethazine HCl 25 mg 12/02/18 22:44 12/02/18 22:49 Phenergan 25mg/Ml 1ml Vial IV 12/02/18 22:45 25 mg ONCE ONE Administration Sodium Chloride 25 ml 12/02/18 22:44 12/02/18 22:49 Sod Chlor 0.9% 25ml Bag IV 12/02/18 22:45 25 ml ONCE ONE Administration ORDERS Category Date Time Status CT abdomen pelvis wo con Stat Cat Scan 12/02/18 20:45 Taken Diarrhea 6-11 Panel, Cdiff PCR Stat Lab 12/03/18 02:05 Received Blood Culture Stat Micro 12/02/18 21:00 Received - CT Data CT Scan: Abdomen, Pelvis Time Received: 03:[address] Reviewed: Yes: I have viewed the radiologist's interpretation Preliminary Findings: Abnormal (nonspecific ) - Physician Consults Physician Consulted: uriel Reason -: Admission Nausea/Vomiting/Diarrhea HPI - General Chief complaint: Nausea/Vomiting/Diarrhea Stated complaint: V&D,Fever Time Seen by Provider: 12/02/18 20:45 Mode of Arrival: Ambulatory Source of Information: Patient, Relative, Medical Record Limitations: No Limitations Description of Symptoms (Recalled from ER Triage Doc. by RN): Pt states she has has N/V/D for 3 days - History of Present Illness HPI Narrative: over the last few days has had n/v and diarrhea with some blood in stool- no known exposure - no fever but has crampy abd pain MD complaint: nausea, vomiting, diarrhea, abdominal pain Onset (ago): day(s) Associated Abdominal Pain: Yes Location of pain: diffuse Severity: moderate Associated symptoms: denies other symptoms - Related Data Home Medications Medication Instructions Recorded Confirmed propranolol 40 mg tablet 40 mg PO BID 05/17/18 12/02/18 Allergies Allergy/AdvReac Type Severity Reaction Status Date / Time From Lactose Intolerance AdvReac Mild NA-NAUSEA/V Uncoded 12/02/18 20:43 OMITING [facility] History - Hepatitis A Screen Drug use history?: No High risk sexual behaviors?: No History of sexually transmitted infection?: No Currently employed?: No Childcare worker?: No Do you have indoor plumbing?: Yes Do you have electricity?: Yes Attestation statement:: This patient has been screened for Hepatitis A risk factors. I have reviewed the patient's past medical history: Yes Medical History: Reports:: Anxiety, Arrhythmia, Asthma, Atrial Fibrillation, Cancer, Deep Vein Thrombosis, Gastroesophageal Reflux Disease(GERD), Heart Murmur, Hypertension, Migraine, Osteoporosis, Pulmonary Embolism, Supraventricular Tachycardia, Ulcer Denies:: Internal Pacemaker Other Medical History: Reports: Anemia, Arthritis, Blood Transfusion Reaction (anemia from transfusion ), Chemotherapy, Fibromyalgia, Hormone Therapy, Hypothyroidism, Liver Disease (being evaluated ), Osteoporosis Laterality Cases: Bilateral: Arthroscopy Knee Other Surgeries: Yes: BSO, EGD, Hysterectomy-Total, Other. No: Pacemaker Amputation: No Fractures: No Comment: Right foot surgery 2016, throat - Social History Smoking Status: Former smoker Alcohol Intake: never Alcohol Intake Frequency:: other Substance Use Type: denies use Occupational Status: unemployed, other - Psychiatric History Expresses thoughts of harming self/others: None Suicide Plan Description: No Plan Pschychiatric History:: Reports:: Anxiety Family Hx:: Hypertension, Thyroid Disorder ROS Obtained: Yes All systems reviewed & no additional complaints - Constitutional Constitutional: Denies fever(s) - Eyes Eyes: Denies change in vision - ENT Ears, Nose, Mouth, and Throat: Denies sinus pressure - Cardiovascular Cardiovascular: Denies chest pain - Respiratory Respiratory: No cough - Gastrointestinal Gastrointestingal: Reports: abdominal pain, diarrhea, nausea, vomiting - Genitourinary Female Genitourinary: Denies hematuria - Musculoskeletal Musculoskeletal: Denies joint pain, Denies neck pain - Integumentary/Breasts Skin/Breast: Denies rash - Neurologic Neurologic: Denies syncope Physical Exam - General General appearance: alert, obese - Head Head exam: atraumatic - Eye Eye exam: Present: PERRL, EOMI. Absent: scleral icterus - ENT ENT exam: Present: mucous membranes dry - Neck Neck exam: Present: trachea midline - Respiratory Respiratory exam: Absent: respiratory distress - Cardiovascular Cardiovascular exam: Present: regular rate - Abdominal Exam Abdominal exam: Present: soft, tenderness Abdominal tenderness: Present: epigastrium, moderate - Extremities Exam Extremities exam: Present: full ROM - Neurological Exam Neurological exam: Present: alert, oriented X3, CN II-XII intact - Psychiatric Psychiatric exam: Present: normal affect - Skin Skin exam: Absent: rash
[2018-12-02 22:20] LABS: Microscopic, Urine URINE MICROSCOPIC (MICROSCOPIC)
[2018-12-02 22:23] LABS: Appearance,Urine SL CLOUDY (Clear); Blood, Urine 3+ (Negative); Color,Urine DK YELLOW (Yellow); Glucose,Urine (UA) Negative (Negative); Ketones,Urine Negative (Negative); Leukocyte Esterase,Urine Negative (Negative); PH,Urine 5.5 (5.0-8.5); Protein,Urine 3+ (Negative); Specific Gravity, Urine >= 1.030 (1.005-1.030); Urobilinogen,Urine 0.2 EU/dl (0.2)
[2018-12-02 22:37] LABS: Bilirubin,Urine Negative (Negative)
[2018-12-02 22:43] LABS: Amorphous Sediment,Urine Trace /lpf; Bacteria,Urine 1+ /lpf; Squamous Epithelial Cell,Urine Occasional #/hpf (0-5); WBC,Urine Occasional #/hpf (0-3)
[2018-12-02 23:13] LABS: Anisocytosis 1+; Lymphocytes % 23 % (10-50); Monocytes % 5 % (2-9); Neutrophils % 72 % (42-76); Total Cells Counted 100
[2018-12-03 00:01] LABS: Erythrocyte Sedimentation Rate 39 mm/hr (0-20)
[2018-12-03 07:10] LABS: Basophils # 0.1 K/mm3 (0-0.2); Basophils % 0.3 % (0.1-2.0); Eosinophils % 0.1 % (0.1-12.0); Hematocrit 43.7 % (37.0-47.0); Lymphocytes # 4.1 K/mm3 (0.7-4.5); Lymphocytes % 23.9 % (10-50); Mean Corpuscular HGB Conc 32.9 g/dL (31.8-35.4); Mean Corpuscular Hemoglobin 26.2 pg (27.0-31.2); Mean Corpuscular Volume 79.8 fl (81-99); Mean Platelet Volume 7.2 fl (7.4-10.4); Monocytes # 1.3 K/mm3 (0.1-1.0); Monocytes % 7.6 % (1.7-9.3); Neutrophils # 11.7 K/mm3 (1.8-7.8); Neutrophils % 68.1 % (37.0-80.0); Platelet Count 337 K/mm3 (142-424); Red Blood Count 5.47 M/mm3 (4.20-5.40); Red Cell Distribution Width 13.4 % (11.5-17.5); White Blood Count 17.2 K/mm3 (4.8-10.8)
[2018-12-03 07:15] LABS: Anion Gap 16.3 mEq/L (5-15); Potassium 3.3 mmoL/L (3.5-5.1)
[2018-12-03 07:27] LABS: Hemoglobin 14.3 g/dL (12.2-16.2)
[2018-12-03 07:29] LABS: Calcium 8.5 mg/dL (8.5-10.1)
--- NOTE | 2018-12-03 07:29 | Pharmacy Consult Notes ---
[facility] Pharmacy VTE Monitoring - Patient Demographics Admission date: 12/03/18 Report Date: 12/03/18 Time: 07:28 Allergies/Adverse Reactions: Patient Allergies From Lactose Intolerance Adverse Reaction (Mild, Uncoded 12/02/18 20:43) NA-NAUSEA/VOMITING Height: 1.75 m Weight: 127.187 kg Patient Problems: Current Active Problems (Updated 12/03/18 @ 03:06 by Connor Soto MD) Gastroenteritis (Acute) Hypokalemia (Acute) Acute renal insufficiency (Acute) Leukocytosis (Acute) Obesity (Acute) - VTE Risk Labs: VTE Related Lab Results Hgb 14.3 g/dL (12.2-16.2) D 12/03/18 06:38 Hct 43.7 % (37.0-47.0) 12/03/18 06:38 Plt Count 337 K/mm3 (142-424) 12/03/18 06:38 BUN 41 mg/dL (7-18) H 12/03/18 06:38 Creatinine 1.67 mg/dL (0.55-1.02) H 12/03/18 06:38 Estimated Creat Clear 48 mL/min (50-200) 12/03/18 06:38 Was VTE Risk Assessment Performed: Yes VTE Score: 5 VTE Risk Level: Low Risk - Prophylaxis VTE Prophylaxis Ordered?: Yes Types of VTE Prophylaxis: TEDS Knee High Location of Applied Device: Not Applicable
--- NOTE | 2018-12-03 09:06 | History & Physical Report ---
*Admission Date: 12/03/18 *Chief complaint: diarrhea *History of present illness: Ms. Macias is a 33-year-old female with history of migraines who presents with 3 days of severe abdominal pain, nausea, copious watery diarrhea. Was into the emergency room last night due to persistent symptoms and dizziness. Found to have significant dehydration, hypokalemia, acute kidney injury, and imaging positive for colitis. Admitted for fluid rehydration and due to inability to tolerate p.o. This morning states she has had no further emesis. No anti- medics this morning. Remains afebrile. No diarrhea yet this morning. Review of labs showed panel was negative obtained in the ER. Denies chest pain, shortness of breath, palpitations [facility] History I have reviewed the patient's past medical history: Yes Medical History: Reports:: Anxiety, Arrhythmia, Asthma, Atrial Fibrillation, Cancer, Deep Vein Thrombosis, Gastroesophageal Reflux Disease(GERD), Heart Murmur, Hyperlipidemia, Hypertension, Migraine, Osteoporosis, Pulmonary Embolism, Supraventricular Tachycardia, Ulcer Denies:: Internal Pacemaker *Have you ever received a pneumonia vaccine?: No *Have you received a flu vaccine this season?: No Other Medical History: Reports: Anemia, Arthritis, Blood Transfusion Reaction (anemia from transfusion ), Chemotherapy, Fibromyalgia, Hormone Therapy, Hypothyroidism, Liver Disease (being evaluated ), Osteoporosis Laterality Cases: Bilateral: Arthroscopy Knee Other Surgeries: Yes: BSO, EGD, Hysterectomy-Total, Other. No: Pacemaker Amputation: No Fractures: No - *Social History Educational Level: Completed High School Smoking Status: Former smoker Alcohol Intake: never Alcohol Intake Frequency:: other Substance Use Type: denies use *Occupational Status:: unemployed, other *Travel in the last 8 weeks: None - Psychiatric History Expresses thoughts of harming self/others: None Suicide Plan Description: No Plan Pschychiatric History:: Reports:: Anxiety Family Hx:: Hypertension, Thyroid Disorder Review of Systems - Review of Systems Review of systems:: pertinent systems reviewed and negative unless documented below - *Neurologic Denies fainting Meds Home Medications Medication Instructions Recorded Confirmed Type propranolol 40 mg tablet 40 mg PO BID 05/17/18 12/03/18 History Allergies Allergy/AdvReac Type Severity Reaction Status Date / Time No Known Drug Allergies Allergy Unknown Verified 12/03/18 07:50 allergy reaction From Lactose Intolerance AdvReac Mild NA-NAUSEA/V Uncoded 12/02/18 20:43 OMITING Exam Vital signs and Labs for Last 24 Hours: Temp Pulse Resp BP Pulse Ox 98.4 F 71 16 135/80 97 12/03/18 08:00 12/03/18 08:00 12/03/18 08:00 12/03/18 08:00 12/03/18 08:00 Laboratory Results - last 24 hr 12/02/18 20:15: Urine Color Dk yellow, Urine Appearance Sl cloudy, Urine pH 5.5, Ur Specific [place] >= 1.030, Urine Protein 3+, Urine Glucose (UA) Negative, Urine Ketones Negative, Urine Blood 3+, Urine Nitrate Negative, Urine Bilirubin Negative, Urine Urobilinogen 0.2, Ur Leukocyte Esterase Negative, Urine WBC Occasional, Ur Squamous Epith Cells Occasional, Amorphous Sediment Trace, Urine Bacteria 1+ 12/02/18 21:00: WBC 20.1 H*, RBC 6.27 H, Hgb 16.6 H, Hct 48.7 H, MCV 77.6 L, MCH 26.5 L, MCHC 34.1, RDW 13.5, Plt Count 426 H, MPV 6.7 L, Neut % (Auto) 72.7, Lymph % (Auto) 19.7, [place] % (Auto) 7.1, Eos % (Auto) 0.3, Baso % (Auto) 0.2, Neut # (Auto) 14.6 H, Lymph # (Auto) 4.0, [place] # (Auto) 1.4 H, Eos # (Auto) 0.1, Baso # (Auto) 0.0, Total Counted 100, Neutrophils % (Manual) 72, Lymphocytes % (Manual) 23, Monocytes % (Manual) 5, Platelet Estimate Normal, Anisocytosis 1+, ESR 39 H 12/02/18 21:00: Sodium 137, Potassium 2.9 L*, Chloride 96 L, Carbon Dioxide 24, Anion Gap 19.9 H, BUN 37 H, Creatinine 1.90 H, Estimated Creat Clear 44, Estimated GFR 30 L, Est GFR ( Amer) 37 L, Glucose 122 H, Calcium 9.4, Total Bilirubin 0.4, AST 11 L, ALT 20, Alkaline Phosphatase 139 H, C-Reactive Protein 0.7, Total Protein 10.5 H D, Albumin 4.4, Globulin 6.1 H, Albumin/Globulin Ratio 0.7 L, Amylase 94, Lipase 354 12/02/18 21:00: Lactate 1.7 12/03/18 02:05: Stl Aeromonas (PCR) Not detected, Stl C. cayetanensis PCR Not detected, Stool Rotavirus (PCR) Not detected, Stl Adenov F 40/41 PCR Not detect ed, Stool Astrovirus (PCR) Not detected, Stool Campylobacter PCR Not detected, Stl C.difficile Tox PCR Not detected, Stool Cryptosporidium PCR Not detected, Stl E.coli Shiga Tox PCR Not detected, Stool E coli O157 PCR Not detected, Stl Enterotoxigenic E PCR Not detected, Stool EPEC (PCR) Not detected, Stool EAEC (PCR) Not detected, Stl E. histolytica PCR Not detected, Stool Giardia Lamblia PCR Not detected, Stool Salmonella PCR Not detected, Stool Sapovirus (PCR) Not detected, Stl P. shigelloides PCR Not detected, Stl Shigella/EIEC PCR Not detected, St Y.enterocolitica PCR Not detected, Stool Vibrio (PCR) Not detected, Stl Vibrio cholerae PCR Not detected, Stl Norovirus GI/GII PCR Not detected 12/03/18 06:38: WBC 17.2 H, RBC 5.47 H, Hgb 14.3 D, Hct 43.7, MCV 79.8 L, MCH 26.2 L, MCHC 32.9, RDW 13.4, Plt Count 337, MPV 7.2 L, Neut % (Auto) 68.1, Lymph % (Auto) 23.9, [place] % (Auto) 7.6, Eos % (Auto) 0.1, Baso % (Auto) 0.3, Neut # (Auto) 11.7 H, Lymph # (Auto) 4.1, [place] # (Auto) 1.3 H, Eos # (Auto) 0.0, Baso # (Auto) 0.1 12/03/18 06:38: Sodium 140, Potassium 3.3 L, Chloride 104, Carbon Dioxide 23, Anion Gap 16.3 H, BUN 41 H, Creatinine 1.67 H, Estimated Creat Clear 48, Estimated GFR 35 L, Est GFR ( Amer) 42 L, Glucose 104, Calcium 8.5, Magnesium 2.2 I & O for Last 24 hours: Intake & Output 11/30/18 12/01/18 12/02/18 12/03/18 23:59 23:59 23:59 23:59 Intake Total 2250 Output Total 0 / 0 Balance 2250 Weight 136.078 kg 127.187 kg - *Routine HEENT Exam Head: Present: normocephalic, atraumatic Eye: Present: EOMI, PERRL ENT: Present: mucous membranes moist - *Routine Neck Exam Present: supple - *Routine Respiratory Exam Present: CTA bilaterally. Absent: wheezes, crackles - *Routine Cardiovascular Exam Present: RRR, Normal S1. Absent: murmur - *Routine Abdominal Exam Present: soft, normoactive bowel sounds, tenderness (Diffuse, nonfocal) - *Routine Rectal Exam Patient deferred: visual exam - *Routine Exam Patient deferred: external exam - *Routine Extremities Exam Absent: cyanosis, clubbing, edema - *Routine Skin Exam Present: intact. Absent: cyanosis, erythema - *Routine Neurological Exam Present: alert, oriented X3. Absent: altered mental status - Routine Psychiatric Exam Present: normal affect, normal thought process, cooperative Assessment and Plan (1) Acute renal insufficiency Current visit: Yes Status: Acute Category: Medical Code(s): N28.9 - Disorder of kidney and ureter, unspecified Light improvement with fluid resuscitation. We will continue to monitor with repeat labs this evening in the morning. Continuing IV fluid rehydration (2) Gastroenteritis Current visit: Yes Status: Acute Category: Medical Code(s): K52.9 - Noninfective gastroenteritis and colitis, unspecified SPECT infectious even though stool sample negative. Continue treatment for nausea. Monitor for decrease in stools. No antibiotics initiated at this time. (3) Hypokalemia Current visit: Yes Status: Acute Category: Medical Code(s): E87.6 - Hypokalemia Suspect due to gastroenteritis, nausea and vomiting. Replete as necessary. (4) Obesity Current visit: Yes Status: Chronic Qualifiers: Obesity type: due to excess calories Obesity classification: adult class 3 (BMI >= 40) Serious obesity comorbidity presence: with serious comorbidity Body mass index: BMI 40.0-44.9 Qualified Code(s): E66.01 - Morbid (severe) obesity due to excess calories; Z68.41 - Body mass index (BMI) 40.0-44.9, adult Category: Medical Code(s): E66.9 - Obesity, unspecified Complicates all aspects of care - Assessment and plan all Dx Assessment and Plan for all problems:: Bonilla diet today to clear liquids. If tolerates, will advance to full liquids this evening. Continue to monitor. If significantly improved by this evening, will discharge home however if still having difficulty with p.o. fluid hydration, in the setting of an SHAUN, will likely discharge tomorrow.
[2018-12-03 11:09] LABS: Lymphocytes % 24 % (10-50); Monocytes % 6 % (2-9); Neutrophils % 67 % (42-76); RBC Morphology Normal; Total Cells Counted 100
[2018-12-03 16:23] LABS: Anion Gap 11.1 mEq/L (5-15); Calcium 8.3 mg/dL (8.5-10.1); Potassium 3.1 mmoL/L (3.5-5.1)
[2018-12-04 06:44] LABS: Basophils # 0.1 K/mm3 (0-0.2); Eosinophils # 0.1 K/mm3 (0.0-0.4); Lymphocytes # 4.3 K/mm3 (0.7-4.5); Red Cell Distribution Width 13.4 % (11.5-17.5)
[2018-12-04 06:56] LABS: Basophils % 0.6 % (0.1-2.0); Eosinophils % 1.3 % (0.1-12.0); Lymphocytes % 44.8 % (10-50); Mean Corpuscular HGB Conc 32.1 g/dL (31.8-35.4); Mean Corpuscular Hemoglobin 26.3 pg (27.0-31.2); Mean Corpuscular Volume 82.1 fl (81-99); Mean Platelet Volume 6.9 fl (7.4-10.4); Monocytes # 0.7 K/mm3 (0.1-1.0); Monocytes % 7.2 % (1.7-9.3); Neutrophils # 4.4 K/mm3 (1.8-7.8); Neutrophils % 46.1 % (37.0-80.0); Platelet Count 245 K/mm3 (142-424); Red Blood Count 4.87 M/mm3 (4.20-5.40); White Blood Count 9.6 K/mm3 (4.8-10.8)
[2018-12-04 06:58] LABS: Anion Gap 10.1 mEq/L (5-15); Calcium 8.4 mg/dL (8.5-10.1); Potassium 3.1 mmoL/L (3.5-5.1)
[2018-12-04 07:04] LABS: Hemoglobin 12.8 g/dL (12.2-16.2)
--- NOTE | 2018-12-04 08:07 | Discharge Summary ---
General - General Admission date:: 12/03/18 Discharge date: 12/04/18 HPI HPI: Ms. Macias is a 33-year-old female with history of migraines who presents with 3 days of severe abdominal pain, nausea, copious watery diarrhea. Was into the emergency room last night due to persistent symptoms and dizziness. Found to have significant dehydration, hypokalemia, acute kidney injury, and imaging positive for colitis. Admitted for fluid rehydration and due to inability to tolerate p.o. This morning states she has had no further emesis. No anti- medics this morning. Remains afebrile. No diarrhea yet this morning. Review of labs showed panel was negative obtained in the ER. Denies chest pain, shortness of breath, palpitations Hospital Course Hospital Course: Patient was admitted, placed on IV fluids, antiemetics. Did well, tolerated clear liquid and low-fat diet through the day yesterday and evening. This morning she has had some nausea but no vomiting. Exam is improved. She will be discharged home with antiemetics, and follow-up in our office in the next week. Objective Vital signs: Temp Pulse Resp BP Pulse Ox 97.8 F 64 16 123/68 98 12/04/18 04:00 12/04/18 04:00 12/04/18 04:00 12/04/18 04:00 12/04/18 04:00 Narrative: Patient is alert. Pleasant. Talkative. Oropharynx clear and moist. Previously noted tongue alterations unchanged. Lungs are clear, heart rate regular. Abdomen soft, minimal superficial tenderness but no deep tenderness or masses. No edema or clubbing. Results Labs on day of discharge: Labs from last 24 hours 12/04/18 12/04/18 12/03/18 06:10 06:10 16:02 WBC 9.6 D RBC 4.87 Hgb 12.8 D Hct 40.0 MCV 82.1 MCH 26.3 L MCHC 32.1 RDW 13.4 Plt Count 245 D MPV 6.9 L Neut % (Auto) 46.1 Lymph % (Auto) 44.8 [place] % (Auto) 7.2 Eos % (Auto) 1.3 Baso % (Auto) 0.6 Neut # (Auto) 4.4 Lymph # (Auto) 4.3 [place] # (Auto) 0.7 Eos # (Auto) 0.1 Baso # (Auto) 0.1 Total Counted Neutrophils % (Manual) Band Neutrophils % Lymphocytes % (Manual) Monocytes % (Manual) Platelet Estimate RBC Morphology Sodium 142 139 Potassium 3.1 L 3.1 L Chloride 106 103 Carbon Dioxide 29 28 D Anion Gap 10.1 11.1 BUN 25 H D 35 H Creatinine 1.13 H 1.35 H Estimated Creat Clear 71 59 Estimated GFR 55 L 45 L Est GFR ( Amer) 67 D 54 L D Glucose 84 87 Calcium 8.4 L 8.3 L Magnesium 2.1 12/03/18 06:38 WBC RBC Hgb Hct MCV MCH MCHC RDW Plt Count MPV Neut % (Auto) Lymph % (Auto) [place] % (Auto) Eos % (Auto) Baso % (Auto) Neut # (Auto) Lymph # (Auto) [place] # (Auto) Eos # (Auto) Baso # (Auto) Total Counted 100 Neutrophils % (Manual) 67 Band Neutrophils % 3.0 Lymphocytes % (Manual) 24 Monocytes % (Manual) 6 Platelet Estimate Normal RBC Morphology Normal Sodium Potassium Chloride Carbon Dioxide Anion Gap BUN Creatinine Estimated Creat Clear Estimated GFR Est GFR ( Amer) Glucose Calcium Magnesium DS: Diagnosis - Discharge Diagnosis (1) Acute renal insufficiency Status: Resolved (2) Gastroenteritis Status: Resolved (3) Hypokalemia Status: Resolved (4) Obesity Status: Chronic Problem details: Complicates all aspects of her care (5) History of major depression Status: Acute Problem details: Complicates all aspects of her care and follow- up Discharge Plan - Patient Discharge Instructions ACTIVITY: Continue current activity DIET: continue same diet - Follow up Plan Follow up with: Malini Mitchell APRN [Nurse Practitioner] - 12/08/18 Disposition: Home, Self-Halfway Medications: Home Medications Medication Instructions Recorded Confirmed Type propranolol 40 mg tablet 40 mg PO BID 05/17/18 12/03/18 History Ondansetron HCl [Zofran 4mg Tab] 4 mg PO TIDP PRN #15 tab 12/04/18 Rx Prescriptions/Medication Reconciliation: New Ondansetron HCl [Zofran 4mg Tab] 4 mg PO TIDP PRN #15 tab PRN Reason: Nausea Continued propranolol 40 mg tablet 40 mg PO BID
== END 2018-12-04 09:55 | disposition home or self-care (01) ==
LOC: 2ND 20:24 → ER 20:24 → 2ND 12-03 03:33
PROVIDERS: ADMIT Family Medicine; ATTEND Internal Medicine Adolescent Medicine
DX: F32.9 Major depressive disorder, single episode, unspecified; E66.01 Morbid (severe) obesity due to excess calories; N28.9 Disorder of kidney and ureter, unspecified; R11.2 Nausea with vomiting, unspecified; R19.7 Diarrhea, unspecified; R42 Dizziness and giddiness; E87.6 Hypokalemia; K52.9 Noninfective gastroenteritis and colitis, unspecified; Z79.899 Other long term (current) drug therapy; Z68.41 Body mass index [BMI] 40.0-44.9, adult; D72.829 Elevated white blood cell count, unspecified
CPT/HCPCS: 36415; 74176; 80048; 80053; 81001; 82150; 83605; 83690; 83735; 85007; 85025; 85651; 86140; 87040; 87506; 96365; 96366; 96375; 99285; G0378; J2405

== ENCOUNTER → 2018-12-13 14:54 | Outpatient (CLI) | payer OTHER, SELFPAY ==
--- NOTE | 2018-12-13 15:18 | XR_ITS ---
XR chest 2V HISTORY: Hypertension, former smoker, ITS.REASON: preop clearance ORDERING PHYSICIAN: Camilla Darden DPM PATIENT AGE: 33 years COMPARISON: 05/28/2018 FINDINGS: The cardiomediastinal silhouette and pulmonary vascularity are within normal limits. The lungs are clear without infiltrates, suspicious nodules, or pleural effusions. Partially calcified nodule is again noted in the right midlung laterally. No acute bony abnormalities. IMPRESSION: No acute finding
[2018-12-13 15:34] LABS: Basophils % 0.3 % (0.1-2.0); Eosinophils # 0.2 K/mm3 (0.0-0.4); Eosinophils % 1.6 % (0.1-12.0); Hematocrit 39.2 % (37.0-47.0); Hemoglobin 12.7 g/dL (12.2-16.2); Lymphocytes # 2.2 K/mm3 (0.7-4.5); Mean Corpuscular HGB Conc 32.4 g/dL (31.8-35.4); Mean Corpuscular Hemoglobin 26.6 pg (27.0-31.2); Mean Corpuscular Volume 82.3 fl (81-99); Mean Platelet Volume 7.3 fl (7.4-10.4); Monocytes # 0.6 K/mm3 (0.1-1.0); Monocytes % 6.1 % (1.7-9.3); Neutrophils # 6.3 K/mm3 (1.8-7.8); Neutrophils % 67.9 % (37.0-80.0); Platelet Count 277 K/mm3 (142-424); Red Blood Count 4.76 M/mm3 (4.20-5.40); Red Cell Distribution Width 13.8 % (11.5-17.5); White Blood Count 9.3 K/mm3 (4.8-10.8)
[2018-12-13 15:51] LABS: Amphetamine/Metha Screen,Urine Negative ng/mL (<1000); Barbiturates Screen,Urine Negative ng/mL (<200); Benzodiazepines Screen,Urine Negative ng/mL (<200); Cannabinoid Screen,Urine Negative ng/mL (<50); Cocaine Screen,Urine Negative ng/mL (<300); Methadone Screen,Urine Negative ng/mL (<300); Opiate Screen,Urine Negative ng/mL (<300); Phencyclidine Screen,Urine Negative ng/mL (<25)
[2018-12-13 16:04] LABS: Alanine Aminotransferase 23 U/L (12-78); Albumin Level 3.3 gm/dL (3.4-5.0); Albumin/Globulin Ratio 0.8 (1.1-1.8); Alkaline Phosphatase 113 U/L (46-116); Anion Gap 11.4 mEq/L (5-15); Aspartate Amino Transferase 9 U/L (15-37); Bilirubin,Total 0.2 mg/dL (0.2-1.0); Blood Urea Nitrogen 9 mg/dL (7-18); Calcium 8.7 mg/dL (8.5-10.1); Carbon Dioxide 28 mmol/L (21.0-32.0); Chloride 107 mmol/L (98-107); Creatinine,Serum 0.93 mg/dL (0.55-1.02); Estimated Glomerular Filt Rate 69 ml/min (>60); GFR (African American) 84 ML/MIN (>60); Globulin 4.1 gm/dl (1.3-3.2); Glucose 78 mg/dL (74-106); Potassium 3.4 mmoL/L (3.5-5.1); Sodium 143 mmol/L (136-145); Total Protein,Serum 7.4 gm/dL (6.4-8.2)
[2018-12-13 16:08] LABS: C-Reactive Protein < 0.2 mg/L (0.0-0.9)
[2018-12-13 16:13] LABS: Erythrocyte Sedimentation Rate 30 mm/hr (0-20)
[2018-12-15 12:42] LABS: Vitamin D 25 Hydroxy 16.5 ng/mL (30.0-100.0)
[2018-12-18 20:34] LABS: Cotinine None Detected (.); Nicotine 13.3 ng/mL (.)
== END ==
PROVIDERS: PCP Internal Medicine Adolescent Medicine; Visit Provider Podiatrist
DX: Z01.818 Encounter for other preprocedural examination (principal); Z98.890 Other specified postprocedural states; L02.619 Cutaneous abscess of unspecified foot; L03.119 Cellulitis of unspecified part of limb
CPT/HCPCS: 36415; 71046; 80053; 80305; 80323; 82652; 85025; 85651; 86140; 93005; G0480

== ENCOUNTER 2019-01-05 17:54 | Observation (INO) | payer OTHER, SELFPAY ==
[2019-01-04 13:12] VITALS: BMI 45.1
[2019-01-05] VITALS (18 sets, daily range): BP systolic 98–145; BP diastolic 61–103; PULSE 74–89; RESP 16–20; TEMP 36.2–43; O2SAT 92–99
[2019-01-05 09:13] LABS: Activated Partial Thrombo Time 23.8 seconds (23.6-34.0); INR 0.95 (0.9-1.1); Prothrombin Time 9.9 seconds (9.4-11.8)
[2019-01-05 09:25] LABS: Microscopic, Urine URINE MICROSCOPIC (MICROSCOPIC)
[2019-01-05 09:30] LABS: Appearance,Urine CLEAR (Clear); Bilirubin,Urine Negative (Negative); Blood, Urine 2+ (Negative); Color,Urine YELLOW (Yellow); Glucose,Urine (UA) Negative (Negative); Ketones,Urine Negative (Negative); Leukocyte Esterase,Urine Negative (Negative); Nitrate,Urine Negative (Negative); Protein,Urine Negative (Negative); Specific Gravity, Urine 1.025 (1.005-1.030); Urobilinogen,Urine 0.2 EU/dl (0.2)
[2019-01-05 09:43] LABS: Bacteria,Urine 3+ /lpf; Mucus,Urine 1+ /lpf; WBC,Urine Occasional #/hpf (0-3)
--- NOTE | 2019-01-05 10:24 | HMH.ANESCL ---
[facility] Anesthesia Checklist - Patient Identification Patient Identification: Arm Band, Verbal (Name & ) - Structural Data Admitted From: Home Planned Operative Procedure/s: Left ankle triple arthrodesis, synovectomy, tendon repair, ligament repair, Consent for Planned Operative Procedure(s) Verified: Yes Verified Documents: Surgical Consent, History and Physical, Cardiac Clearance - NPO Status Verified Time NPO: 21:30 - Chart Verification Results Verified: CBC, BMP, PT, PTT, INR - Additional verifications Patient : No Anesthesia Reactions: Yes (awareness during Hyster) - Airway Assessment C-Spine Mobility Assessed: Yes TMJ Mobility Assessed: Yes Dentition: Good Dentition (Split tongue) - Neurological Assessment Level of Consciousness: Awake Hx Seizures: No Numbness or tingling in extremities: No - Anesthesia Plan Anesthesia Risk discussed: Yes Anesthesia Plan: Verified ASA Class: IV Anesthesia Type: General (with PNB (popliteal)) [facility] History Medical History: Reports:: Anxiety, Arrhythmia, Asthma, Atrial Fibrillation, Cancer (endometrial and skin ), Deep Vein Thrombosis (3 years ago ), Gastroesophageal Reflux Disease(GERD), Heart Murmur, Hyperlipidemia, Hypertension, Migraine, Osteoporosis, Pulmonary Embolism, Supraventricular Tachycardia, Ulcer Denies:: Diabetes Mellitus Type 1, Diabetes Mellitus Type 2, Internal Pacemaker, MRSA, Seizures *Have you ever received a pneumonia vaccine?: Yes *Have you received a flu vaccine this season?: Yes Other Medical History: Reports: Anemia, Arthritis, Blood Transfusion Reaction (anemia from transfusion ), Chemotherapy, Fibromyalgia, Hormone Therapy, Hypothyroidism, Liver Disease (being evaluated ), Osteoporosis Laterality Cases: Bilateral: Arthroscopy Knee Other Surgeries: Yes: BSO, EGD, Hysterectomy-Total, Skin Cancer Excision, Other. No: Pacemaker Amputation: No Fractures: No - *Social History Educational Level: Attended College Smoking Status: Former smoker Alcohol Intake: never Alcohol Intake Frequency:: other Substance Use Type: marijuana *Occupational Status:: unemployed, other Housing: house Household Members: spouse *Travel in the last 8 weeks: None - Psychiatric History Expresses thoughts of harming self/others: None Suicide Plan Description: No Plan Pschychiatric History:: Reports:: Anxiety Family Hx:: Hypertension, Thyroid Disorder
--- NOTE | 2019-01-05 12:26 | HMH.OPNOTE ---
Date of procedure: 01/05/19 Pre-op Diagnosis:: 1. Posterior tibial tendon dysfunction (PTTD) of both lower extremities M76.821; M76.822 2. Acquired bilateral metatarsus adductus M21.6X1; M21.6X2 3. Primary osteoarthritis of both feet M19.071; M19.072 4. Edema of both lower extremities R60.0 5. Left ankle instability M25.372 6. 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 Synovitis of left foot M65.9 8. Peroneal tendonitis of left lower extremity M76.72 9. Posterior tibial tendinitis of left lower extremity M76.822 10. Bone marrow edema D75.89 11. History of pulmonary embolus (PE) Z86.711 12. History of chest pain Z87.898 13. Morbid obesity with BMI of 40.0-44.9, adult E66.01; Z68.41 14. Marijuana smoker F12.90 15. History of vitamin D deficiency Z86.39 16. Personal history of DVT (deep vein thrombosis) Z86.718 17. Rheumatoid arthritis involving multiple sites with positive rheumatoid factor M05.79 Post-op Diagnosis:: Same Procedure performed:: 1. Left triple arthrodesis 2. Left tarsal coalition resection 3. Left modified Brostrum lateral ankle ligament stabilization 4. Left gastroc recession 5. Left peroneal tendon debridement and brevis repair 6. Left posterior tibial tendon lenghtening, debridement and repair 7. Left ankle synovectomy 8. Left foot synovectomy 9. Application of amniotic membrane graft Surgeon:: Camilla Darden DPM INTEGRATED MARKETING MANAGER:: Luciano Brush Anesthesia: regional (L popliteal block), local (30cc 0.5% adalberto plain), LMA Estimated blood loss (mL): 100 Clinical Note:: MRI Right foot and ankle, 07/16/18: FOOT IMPRESSION: 1. Bone marrow edema involving the mid aspect of the calcaneus which could be post inflammatory or traumatic. 2. Small posterior talocalcaneal effusion with a small amount loculated fluid at the posterior tibiotalar joint as well. 3. Loculated small collection of fluid along the anterior and lateral aspect of the distal talus. 4. Small amount of fluid between the distal aspect of the first and second metatarsal which may be due to intermetatarsal bursitis. MRI Left foot and ankle, 07/16/18: FOOT IMPRESSION: 1. Tendinopathy/tendinosis of the distal aspect of the posterior tibialis tendon. 2. First through fifth metatarsophalangeal joint synovitis. 3. Nonspecific edema involves the mid aspect of the calcaneus with a small cystic area in the mid aspect of the calcaneus as well. 4. Osteoarthritic change of the talonavicular joint with small amount of fluid at this region. Radiographs and MRI images were reviewed and discussed with the patient. See impressions above. I discussed the condition and etiology of arthritis with the patient in detail. Patient has had symptoms since 15 y/o. I discussed the condition and etiology of peroneal tendonitis with the patient in detail. We discussed how inflammation can cause swelling and pain. Also explained how coalition can cause the subtalar joint range of motion restriction and pain. Would also explain the peroneal tendon symptoms and feelings of instability on the lateral foot and ankle. We discussed how weakness of the peroneal tendon can cause the instability and pain. After a long discussion with the patient in regards to the conservative versus surgical treatment for the arthritic deformity, the patient has elected to proceed with surgery because they have failed conservative treatment and continue to have pain and worsening symptoms affecting daily activities. Conservative treatment options were discussed with the patient in including strapping, taping, splints, icing, anti-inflammatory medication, change in shoe wear, prefab or custom orthotics, bracing, stretching, and physical therapy. At this point, she has failed NWB and WB immobilization in fracture boot and brace, failed NSAIDs, RICE protocol, physical therapy, modification of shoe gear and activity restriction with continued pain and symptoms. The patient has been instructed on the planned procedure, all r
--- NOTE | 2019-01-05 15:05 | SUR.OPER ---
1327-Family updated per Kip TAVERAS. 1455-Family updated per Kip TAVERAS.
[2019-01-05 15:12] LABS: Microscopic,Cath URINE MICROSCOPIC (MICROSCOPIC)
[2019-01-05 15:30] LABS: Appearance,Urine/Cath CLEAR (Clear); Bilirubin,Cath Negative (Negative); Blood, Urine/Cath 1+ (Negative); Color,Urine/Cath YELLOW (Yellow); Glucose,Urine/Cath (UA) Negative (Negative); Ketones,Urine/Cath Negative (Negative); Leukocyte Esterase,Cath Negative (Negative); Nitrate,Cath Negative (Negative); PH,Urine/Cath 6.5 (5.0-8.5); Protein,Urine/Cath Negative (Negative); Specific Gravity, Urine/Cath 1.015 (1.005-1.030); Urobilinogen,Cath 0.2 EU/dl (0.2)
[2019-01-05 15:59] LABS: Bacteria,Urine/Cath TRACE /lpf; RBC,Urine/Cath Occasional # /hpf (0-3); Squamous Epithelial Ur./Cath Occasional #/hpf (0-5)
--- NOTE | 2019-01-05 16:11 | XR_ITS ---
XR foot LT min 3V HISTORY: Follow-up ORIF ITS.REASON: PACU ORDERING PHYSICIAN: Camilla Darden DPM PATIENT AGE: 33 years COMPARISON: None FINDINGS: Status post ORIF. Long screws placed from the posterior inferior aspect of the calcaneus into the region of the neck of the talus inferiorly. Additional screws placed from the anterior medial aspect of the talus into the superior aspect of the calcaneus through this posterior subtalar region. Medial bone plate is present at the talus and navicular region with a lateral bone plate at the calcaneal cuneiform region. There has been osteotomy at the neck of the talus with the appearance of a bone graft at the talonavicular region. An additional screw is placed from the graft to the talus. There is overlying skin clips medially and laterally and a drain present laterally. There is good alignment. IMPRESSION: Status post hindfoot and midfoot fusion with talonavicular graft as described above
--- NOTE | 2019-01-05 16:11 | XR_ITS ---
XR calcaneus LT min 2V CLINICAL INDICATION: Follow-up ORIF ITS.REASON: PACU ORDERING PHYSICIAN: Camilla Darden DPM PATIENT AGE: 33 years Comparison: None FINDINGS: Status post ORIF. Long screws placed from the posterior inferior aspect of the calcaneus into the region of the neck of the talus inferiorly. Additional screws placed from the anterior medial aspect of the talus into the superior aspect of the calcaneus through this posterior subtalar region. Medial bone plate is present at the talus and navicular region with a lateral bone plate at the calcaneal cuneiform region. There has been osteotomy at the neck of the talus with the appearance of a bone graft at the talonavicular region. An additional screw is placed from the graft to the talus. There is overlying skin clips medially and laterally and a drain present laterally. There is good alignment. IMPRESSION: Status post hindfoot and midfoot fusion with talonavicular graft as described above
--- NOTE | 2019-01-05 16:11 | XR_ITS ---
XR ankle LT min 3V HISTORY: Follow-up surgery/ORIF ITS.REASON: PACU ORDERING PHYSICIAN: Camilla Darden DPM PATIENT AGE: 33 years Comparison: 06/22/2018 FINDINGS: Status post ORIF. Long screws placed from the posterior inferior aspect of the calcaneus into the region of the neck of the talus inferiorly. Additional screws placed from the anterior medial aspect of the talus into the superior aspect of the calcaneus through this posterior subtalar region. Medial bone plate is present at the talus and navicular region with a lateral bone plate at the calcaneal cuneiform region. There has been osteotomy at the neck of the talus with the appearance of a bone graft at the talonavicular region. An additional screw is placed from the graft to the talus. There is overlying skin clips medially and laterally and a drain present laterally. There is good alignment. IMPRESSION: Status post hindfoot and midfoot fusion with talonavicular graft as described above
--- NOTE | 2019-01-05 16:22 | XR_ITS ---
XR foot LT 2V HISTORY: ITS.REASON: ORIF LEFT FOOT ORDERING PHYSICIAN: Camilla Darden DPM PATIENT AGE: 33 years COMPARISON: None Fluoroscopy time: 2 minutes and 32 seconds FINDINGS: Status post ORIF left foot screws are placed from the talar neck posteriorly into the calcaneus and from the posterior inferior aspect of the calcaneus to the mid talar region. Bone plates are noted along the lateral aspect of the cuboid calcaneal region and medially at the talonavicular area with an additional screw from the navicular into the talus. IMPRESSION: Status post ORIF left foot with fluoroscopic guidance
--- NOTE | 2019-01-05 17:50 | P.PN_ITS ---
[facility] Anesthesia Record Part I Intake, IV Amount: 1,500 (.) Estimated blood loss (mL): 95 Urine output (mL): 1,900 Blood Products used (#): none Blood Pressure: 133/84 SaO2: 97 Pulse Rate: 86 Respiratory Rate: 20 Temperature: 97.2 F Patient is:: Awake, Nasal O2, Stable Stable to PACU at:: 17:40
--- NOTE | 2019-01-05 17:51 | P.PN_ITS ---
[facility] Anesthesia Record Part II Discharge Time: 18:10 Destination: Medical Surgical Department PACU nurse assessment reviewed?: Yes Patient Condition:: Good Anesthesia Complications:: None Swallowing reflex intact?: Yes Cyanosis?: No
--- NOTE | 2019-01-05 18:04 | HMH.ORTHHP ---
*Admission Date: 01/05/19 *Chief complaint: Left foot pain and ankle instability *History of present illness: Mrs. Macias is a 33 y/o F who is being admitted for 23-hour observations following a left foot and ankle surgery. The patient has an extensive medical history, including: Anxiety, Arrhythmia, Asthma, Atrial Fibrillation, Cancer (endometrial and skin), Deep Vein Thrombosis (3 years ago), Gastroesophageal Reflux Disease (GERD), Heart Murmur, Hyperlipidemia, Hypertension, Migraine, Osteoporosis, Pulmonary Embolism, Supraventricular Tachycardia and Ulcer. PCP: Dr. Falk and she sees [facility] cardiology. She reports history of DVT/PE in 2016 from [place] ride. She was treated with Lovenox x 6 months. She has not been on blood thinner for over 2.5 years. She also reports chronic knee and back pain. She has discussed bariatric surgery and breast reduction with a physician in [place]. They recommended to wait on these 2 things until the foot has been addressed. Patient also recently saw Dr. Hannon for chronic knee pain. Patient was seen by a Java Developer Architect many years ago but no definitive diagnosis given. She has experienced pain in the feet, ankle joints, hands and wrists. Patient's mother reports normal developmental and walking milestones. But reports a complication from some medication during , that left her in hospital for 7 months. Patient wore inserts as a child but denies bracing or casting. Given the recent lab work and Intra-Op findings will recommend rheumatology referral outpatient for new diagnosis of rheumatoid arthritis. [facility] History I have reviewed the patient's past medical history: Yes Medical History: Reports:: Anxiety, Arrhythmia, Asthma, Atrial Fibrillation, Cancer (endometrial and skin ), Deep Vein Thrombosis (3 years ago ), Gastroesophageal Reflux Disease(GERD), Heart Murmur, Hyperlipidemia, Hypertension, Migraine, Osteoporosis, Pulmonary Embolism, Supraventricular Tachycardia, Ulcer Denies:: Diabetes Mellitus Type 1, Diabetes Mellitus Type 2, Internal Pacemaker, MRSA, Seizures *Have you ever received a pneumonia vaccine?: Yes *Have you received a flu vaccine this season?: Yes Other Medical History: Reports: Anemia, Arthritis, Blood Transfusion Reaction (anemia from transfusion ), Chemotherapy, Fibromyalgia, Hormone Therapy, Hypothyroidism, Liver Disease (being evaluated ), Osteoporosis Laterality Cases: Bilateral: Arthroscopy Knee Other Surgeries: Yes: BSO, EGD, Hysterectomy-Total, Skin Cancer Excision, Other. No: Pacemaker Amputation: No Fractures: No - *Social History Educational Level: Attended College Smoking Status: Former smoker Alcohol Intake: never Alcohol Intake Frequency:: other Substance Use Type: marijuana *Occupational Status:: unemployed, other Housing: house Household Members: spouse *Travel in the last 8 weeks: None - Psychiatric History Expresses thoughts of harming self/others: None Suicide Plan Description: No Plan Pschychiatric History:: Reports:: Anxiety Family Hx:: Hypertension, Thyroid Disorder Review of Systems - Review of Systems Review of systems:: pertinent systems reviewed and negative unless documented below - Constitutional Reports fatigue, Reports weakness, Denies chills - Eyes Denies blurry vision - ENT Denies poor balance - *Cardiovascular Denies chest pain, Denies shortness of breath - *Respiratory Denies cough, Denies shortness of breath - *Gastrointestinal Denies abdominal pain, Denies loose stools, Denies nausea, Denies vomiting - *Genitourinary Denies abnormal periods - *Musculoskeletal Reports limited joint movement, Reports muscle weakness, Reports stiffness - Integumentary/Breasts Reports dry skin - *Neurologic Reports unsteadiness (ankle instability) - Psychiatric Reports anxiety - Endocrine Reports cold intolerance - Allergic/Immunologic Reports GI upset with certain foods Meds Home Medications Medication Instructi
--- NOTE | 2019-01-05 18:21 | P.HP_ITS ---
*Admission Date: 01/05/19 *Chief complaint: Left foot pain and ankle instability *History of present illness: Mrs. Macias is a 33 y/o F who is being admitted for 23-hour observations following a left foot and ankle surgery. The patient has an extensive medical history, including: Anxiety, Arrhythmia, Asthma, Atrial Fibrillation, Cancer (endometrial and skin), Deep Vein Thrombosis (3 years ago), Gastroesophageal Reflux Disease (GERD), Heart Murmur, Hyperlipidemia, Hypertension, Migraine, Osteoporosis, Pulmonary Embolism, Supraventricular Tachycardia and Ulcer. PCP: Dr. Falk and she sees [facility] cardiology. She reports history of DVT/PE in 2016 from [place] car ride. She was treated with Lovenox x 6 months. She has not been on blood thinner for over 2.5 years. She also reports chronic knee and back pain. She has discussed bariatric surgery and breast reduction with a physician in [place]. They recommended to wait on these 2 things until the foot has been addressed. Patient also recently saw Dr. Hannon for chronic knee pain. Patient was seen by a High Raw Sugar Boiler many years ago but no definitive diagnosis given. She has experienced pain in the feet, ankle joints, hands and wrists. Patient's mother reports normal developmental and walking milestones. But reports a complication from some medication during , that left her in hospital for 7 months. Patient wore inserts as a child but denies bracing or casting. Given the recent lab work and Intra-Op findings will recommend rheumatology referral outpatient for new diagnosis of rheumatoid arthritis. [facility] History I have reviewed the patient's past medical history: Yes Medical History: Reports:: Anxiety, Arrhythmia, Asthma, Atrial Fibrillation, Cancer (endometrial and skin ), Deep Vein Thrombosis (3 years ago ), Gastroesophageal Reflux Disease(GERD), Heart Murmur, Hyperlipidemia, Hypertension, Migraine, Osteoporosis, Pulmonary Embolism, Supraventricular Tachycardia, Ulcer Denies:: Diabetes Mellitus Type 1, Diabetes Mellitus Type 2, Internal Pacemaker, MRSA, Seizures *Have you ever received a pneumonia vaccine?: Yes *Have you received a flu vaccine this season?: Yes Other Medical History: Reports: Anemia, Arthritis, Blood Transfusion Reaction (anemia from transfusion ), Chemotherapy, Fibromyalgia, Hormone Therapy, Hypothyroidism, Liver Disease (being evaluated ), Osteoporosis Laterality Cases: Bilateral: Arthroscopy Knee Other Surgeries: Yes: BSO, EGD, Hysterectomy-Total, Skin Cancer Excision, Other. No: Pacemaker Amputation: No Fractures: No - *Social History Educational Level: Attended College Smoking Status: Former smoker Alcohol Intake: never Alcohol Intake Frequency:: other Substance Use Type: marijuana *Occupational Status:: unemployed, other Housing: house Household Members: spouse *Travel in the last 8 weeks: None - Psychiatric History Expresses thoughts of harming self/others: None Suicide Plan Description: No Plan Pschychiatric History:: Reports:: Anxiety Family Hx:: Hypertension, Thyroid Disorder Review of Systems - Review of Systems Review of systems:: pertinent systems reviewed and negative unless documented below - Constitutional Reports fatigue, Reports weakness, Denies chills - Eyes Denies blurry vision - ENT Denies poor balance - *Cardiovascular Denies chest pain, Denies shortness of breath - *Respiratory Denies cough, Denies shortness of breath - *Gastrointestinal Denies abdominal pain, Denies loose stools, Denies nausea, Denies vomiting - *Genitourinary Denies abnormal periods - *Musculoskeletal Reports limited joint m
--- NOTE | 2019-01-05 18:31 | PC.NURSE ---
1750-radiology at bedside for post op xrays. 1803-Dr. Darden at bedside.
--- NOTE | 2019-01-05 19:19 | PC.NURSE ---
report given to angelito
[2019-01-06 00:15] VITALS: BP 105/61; PULSE 82; RESP 16; TEMP 37.2; O2SAT 93
[2019-01-06 01:15] VITALS: BP 96/66; PULSE 83; RESP 16; TEMP 36.9; O2SAT 93
[2019-01-06 04:00] VITALS: BP 105/56; PULSE 75; RESP 16; TEMP 36.8; O2SAT 98
[2019-01-06 06:39] VITALS: BMI 45.2
--- NOTE | 2019-01-06 07:28 | P.CONPHA_ITS ---
[facility] Pharmacy VTE Monitoring - Patient Demographics Admission date: 01/05/19 Report Date: 01/06/19 Time: 07:27 Allergies/Adverse Reactions: Patient Allergies No Known Drug Allergies Allergy (Verified 01/05/19 08:27) Unknown allergy reaction cilantro Allergy (Severe, Uncoded 01/05/19 08:26) throat and tongue swells, hives on face From Lactose Intolerance Adverse Reaction (Mild, Uncoded 12/02/18 20:43) NA-NAUSEA/VOMITING Height: 1.75 m Weight: 138.998 kg Patient Problems: Current Active Problems (Updated 01/05/19 @ 18:59 by Camilla Darden DPM) Posterior tibial tendon dysfunction (PTTD) of left lower extremity (Acute) Metatarsus adductus of left foot (Acute) Gastrocnemius equinus of left lower extremity (Acute) Osteoarthritis of left ankle and foot (Acute) Rheumatoid arthritis (Acute) Left ankle instability (Acute) Vitamin D deficiency (Acute) Marijuana smoker (Acute) - VTE Risk Labs: VTE Related Lab Results PT 9.9 seconds (9.4-11.8) 01/05/19 08:47 INR 0.95 (0.9-1.1) 01/05/19 08:47 APTT 23.8 seconds (23.6-34.0) 01/05/19 08:47 Was VTE Risk Assessment Performed: Yes VTE Score: 4 VTE Risk Level: Low Risk - Prophylaxis VTE Prophylaxis Ordered?: Yes Types of VTE Prophylaxis: TEDS Knee High, IPCS Thigh High, Pharmacological Location of Applied Device: Right Leg Pharmacologic Type: Enoxaparin - VTE Diagnosis Confirmed Treatment or plan recommended: Continue Current Treatment
[2019-01-06 07:30] LABS: Basophils % 0.2 % (0.1-2.0); Eosinophils % 0.1 % (0.1-12.0); Hematocrit 31.2 % (37.0-47.0); Hemoglobin 10.2 g/dL (12.2-16.2); Lymphocytes # 2.5 K/mm3 (0.7-4.5); Lymphocytes % 19.2 % (10-50); Mean Corpuscular HGB Conc 32.7 g/dL (31.8-35.4); Mean Corpuscular Hemoglobin 27.2 pg (27.0-31.2); Mean Corpuscular Volume 83.2 fl (81-99); Mean Platelet Volume 6.8 fl (7.4-10.4); Monocytes % 7.7 % (1.7-9.3); Neutrophils # 9.6 K/mm3 (1.8-7.8); Neutrophils % 72.9 % (37.0-80.0); Platelet Count 254 K/mm3 (142-424); Red Blood Count 3.75 M/mm3 (4.20-5.40); Red Cell Distribution Width 14.7 % (11.5-17.5); White Blood Count 13.2 K/mm3 (4.8-10.8)
--- NOTE | 2019-01-06 07:32 | PC.NURSE ---
pt rested well. c/o pain throughout night. PRN meds admin with relief. VIRGINIE drain had 0ml. VSS. will cont to monitor.
[2019-01-06 07:35] LABS: Alanine Aminotransferase 36 U/L (12-78); Albumin Level 2.6 gm/dL (3.4-5.0); Albumin/Globulin Ratio 0.7 (1.1-1.8); Alkaline Phosphatase 89 U/L (46-116); Anion Gap 10.7 mEq/L (5-15); Aspartate Amino Transferase 21 U/L (15-37); Bilirubin,Total 0.3 mg/dL (0.2-1.0); Blood Urea Nitrogen 9 mg/dL (7-18); Carbon Dioxide 29 mmol/L (21.0-32.0); Chloride 105 mmol/L (98-107); Creatinine Clearance Estimated 90 mL/min (50-200); Creatinine,Serum 0.92 mg/dL (0.55-1.02); Estimated Glomerular Filt Rate 70 ml/min (>60); GFR (African American) 85 ML/MIN (>60); Globulin 3.5 gm/dl (1.3-3.2); Glucose 99 mg/dL (74-106); Potassium 3.7 mmoL/L (3.5-5.1); Sodium 141 mmol/L (136-145); Total Protein,Serum 6.1 gm/dL (6.4-8.2)
[2019-01-06 08:00] VITALS: BP 134/74; PULSE 64; RESP 17; TEMP 36.9; O2SAT 96
--- NOTE | 2019-01-06 08:07 | HMH.DCSUM ---
General - General Admission date:: 01/05/19 Discharge date: 01/06/19 HPI HPI: Ms. Macias is a pleasant 33-year-old female who was admitted 01/05/2019 after left foot and ankle reconstructive surgery. Patient is currently resting comfortably in bed. Pain controlled with Percocet. Anxiety controlled with Xanax. Hospital Course Hospital Course: Patient had a relatively uneventful hospital course. She was admitted overnight for 23-hour observation for pain control. Patient controlled with Percocet. She did report some anxiety which is controlled usually at home with marijuana. Patient understands she cannot use that in the perioperative course. She was given Xanax which she has taken in the past which she did very well with. The VIRGINIE drain to the left lower extremity was accidentally partially pulled out last night. Dressing reinforced today. Patient talked with case management and they will get her her DME. She has a rolling knee scooter at home and has family that will help her. She is ready for discharge, after one session of physical therapy this morning for transition and gait training. Objective Vital signs: Temp Pulse Resp BP Pulse Ox 98.2 F 75 16 105/56 L 98 01/06/19 04:00 01/06/19 04:00 01/06/19 04:00 01/06/19 04:00 01/06/19 04:00 no acute distress - *Routine HEENT Exam Head: Present: normocephalic Eye: Present: PERRL ENT: Present: mucous membranes moist - *Routine Neck Exam Present: supple - *Routine Respiratory Exam Present: accessory muscle use, CTA bilaterally - *Routine Cardiovascular Exam Present: RRR - *Routine Abdominal Exam Present: soft. Absent: guarding - *Routine Rectal Exam Patient deferred: visual exam - *Routine Exam Patient deferred: external exam - *Routine Extremities Exam Present: edema, pulses intact, normal capillary refill. Absent: calf tenderness - *Routine Skin Exam Present: intact - *Routine Neurological Exam Present: alert, oriented X3, moving all extremities - Detailed Lower Extremity Exam Comments: The left lower extremity dressing is clean dry and intact. There is some strikethrough noted to the left lateral heel. The VIRGINIE drain was pulled out last night. Dressing was reinforced. No active bleeding noted. Capillary fill time within normal limits. No calf or thigh pain and noted bilaterally. Results Labs on day of discharge: Labs from last 24 hours 01/06/19 01/06/19 01/05/19 05:47 05:47 12:11 WBC 13.2 H RBC 3.75 L Hgb 10.2 L Hct 31.2 L MCV 83.2 MCH 27.2 MCHC 32.7 RDW 14.7 Plt Count 254 MPV 6.8 L Neut % (Auto) 72.9 Lymph % (Auto) 19.2 [place] % (Auto) 7.7 Eos % (Auto) 0.1 Baso % (Auto) 0.2 Neut # (Auto) 9.6 H Lymph # (Auto) 2.5 [place] # (Auto) 1.0 Eos # (Auto) 0.0 Baso # (Auto) 0.0 PT INR APTT Sodium 141 Potassium 3.7 Chloride 105 Carbon Dioxide 29 Anion Gap 10.7 BUN 9 Creatinine 0.92 Estimated Creat Clear 90 Estimated GFR 70 Est GFR ( Amer) 85 Glucose 99 Calcium 8.0 L Total Bilirubin 0.3 AST 21 ALT 36 Alkaline Phosphatase 89 Total Protein 6.1 L Albumin 2.6 L Globulin 3.5 H Albumin/Globulin Ratio 0.7 L Urine Color Yellow Urine Appearance Clear Urine pH 6.5 Ur Specific [place] 1.015 Urine Protein Negative Urine Glucose (UA) Negative Urine Ketones Negative Urine Blood 1+ Urine Nitrate Negative Urine Bilirubin Negative Urine Urobilinogen 0.2 Ur Leukocyte Esterase Negative Urine RBC Occasional Urine WBC 3-5 Ur Squamous Epith Cells Occasional Urine Bacteria Trace Urine Mucus 01/05/19 01/05/19 08:47 08:17 WBC RBC Hgb Hct MCV MCH MCHC RDW Plt Count MPV Neut % (Auto) Lymph % (Auto) [place] % (Auto) Eos % (Auto) Baso % (Auto) Neut # (Auto) Lymph # (Auto) [place] # (Auto)
--- NOTE | 2019-01-06 08:11 | P.DS_ITS ---
General - General Admission date:: 01/05/19 Discharge date: 01/06/19 HPI HPI: Ms. Macias is a pleasant 33-year-old female who was admitted 01/05/2019 after left foot and ankle reconstructive surgery. Patient is currently resting comfortably in bed. Pain controlled with Percocet. Anxiety controlled with Xanax. Hospital Course Hospital Course: Patient had a relatively uneventful hospital course. She was admitted overnight for 23-hour observation for pain control. Patient controlled with Percocet. She did report some anxiety which is controlled usually at home with marijuana. Patient understands she cannot use that in the perioperative course. She was given Xanax which she has taken in the past which she did very well with. The [place] drain to the left lower extremity was accidentally partially pulled out last night. Dressing reinforced today. Patient talked with case management and they will get her her DME. She has a rolling knee scooter at home and has family that will help her. She is ready for discharge, after one session of physical therapy this morning for transition and gait training. Objective Vital signs: Temp Pulse Resp BP Pulse Ox 98.2 F 75 16 105/56 L 98 01/06/19 04:00 01/06/19 04:00 01/06/19 04:00 01/06/19 04:00 01/06/19 04:00 no acute distress - *Routine HEENT Exam Head: Present: normocephalic Eye: Present: PERRL ENT: Present: mucous membranes moist - *Routine Neck Exam Present: supple - *Routine Respiratory Exam Present: accessory muscle use, CTA bilaterally - *Routine Cardiovascular Exam Present: RRR - *Routine Abdominal Exam Present: soft. Absent: guarding - *Routine Rectal Exam Patient deferred: visual exam - *Routine Exam Patient deferred: external exam - *Routine Extremities Exam Present: edema, pulses intact, normal capillary refill. Absent: calf tenderness - *Routine Skin Exam Present: intact - *Routine Neurological Exam Present: alert, oriented X3, moving all extremities - Detailed Lower Extremity Exam Comments: The left lower extremity dressing is clean dry and intact. There is some strikethrough noted to the left lateral heel. The [place] drain was pulled out last night. Dressing was reinforced. No active bleeding noted. Capillary fill time within normal limits. No calf or thigh pain and noted bilaterally. Results Labs on day of discharge: Labs from last 24 hours 01/06/19 01/06/19 01/05/19 05:47 05:47 12:11 WBC 13.2 H RBC 3.75 L Hgb 10.2 L Hct 31.2 L MCV 83.2 MCH 27.2 MCHC 32.7 RDW 14.7 Plt Count 254 MPV 6.8 L Neut % (Auto) 72.9 Lymph % (Auto) 19.2 [place] % (Auto) 7.7 Eos % (Auto) 0.1 Baso % (Auto) 0.2 Neut # (Auto) 9.6 H Lymph # (Auto) 2.5 [place] # (Auto) 1.0 Eos # (Auto) 0.0 Baso # (Auto) 0.0 PT INR APTT Sodium 141 Potassium 3.7 Chloride 105 Carbon Dioxide 29 Anion Gap 10.7 BUN 9 Creatinine 0.92 Estimated Creat Clear 90 Estimated GFR 70 Est GFR ( Amer) 85 Glucose 99 Calcium 8.0 L Total Bilirubin
--- NOTE | 2019-01-06 08:29 | HMH.CONS ---
*Admission Date: 01/05/19 *Chief complaint: Status post podiatry surgery *History of present illness: Mrs. Macias is a 33 y/o F who is being admitted for 23-hour observations following a left foot and ankle surgery. The patient has an extensive medical history, including: Anxiety, Arrhythmia, Asthma, Atrial Fibrillation, Cancer (endometrial and skin), Deep Vein Thrombosis (3 years ago), Gastroesophageal Reflux Disease (GERD), Heart Murmur, Hyperlipidemia, Hypertension, Migraine, Osteoporosis, Pulmonary Embolism, Supraventricular Tachycardia and Ulcer. PCP: Dr. Falk and she sees [facility] cardiology. She reports history of DVT/PE in 2016 from [place] ride. She was treated with Lovenox x 6 months. She has not been on blood thinner for over 2.5 years. She also reports chronic knee and back pain. She has discussed bariatric surgery and breast reduction with a physician in [place]. They recommended to wait on these 2 things until the foot has been addressed. Patient also recently saw Dr. Hannon for chronic knee pain. Patient was seen by a [employer] many years ago but no definitive diagnosis given. She has experienced pain in the feet, ankle joints, hands and wrists. Patient's mother reports normal developmental and walking milestones. But reports a complication from some medication during , that left her in hospital for 7 months. Patient wore inserts as a child but denies bracing or casting. Given the recent lab work and Intra-Op findings will recommend rheumatology referral outpatient for new diagnosis of rheumatoid arthritis. Above note per Dr. Darden: Patient does have extensive medical problems are currently they are in remission state-she has been feeling well lately and has been much more functional. Currently on no medications at home except propranolol for rate control and mild anxiety. Her asthma has been under excellent control. She has had no recurrent clots She has a history of some substance abuse issues. Please see recent drug screens but in preparation for surgery has been able to be maintained/stay off controlled substances from the street. [facility] History I have reviewed the patient's past medical history: Yes Medical History: Reports:: Anxiety, Arrhythmia, Asthma, Atrial Fibrillation, Cancer (endometrial and skin ), Deep Vein Thrombosis, Gastroesophageal Reflux Disease(GERD), Heart Murmur, Hyperlipidemia, Hypertension, Migraine, Osteoporosis, Pulmonary Embolism, Supraventricular Tachycardia, Ulcer Denies:: Diabetes Mellitus Type 1, Diabetes Mellitus Type 2, Internal Pacemaker, MRSA, Seizures *Have you ever received a pneumonia vaccine?: No *Have you received a flu vaccine this season?: Yes Other Medical History: Reports: Anemia, Arthritis, Blood Transfusion Reaction (anemia from transfusion ), Chemotherapy, Fibromyalgia, Hormone Therapy, Hypothyroidism, Liver Disease (being evaluated ), Osteoporosis Laterality Cases: Bilateral: Arthroscopy Knee Other Surgeries: Yes: BSO, EGD, Hysterectomy-Total, Skin Cancer Excision, Other. No: Pacemaker Amputation: No Fractures: No - *Social History Educational Level: Completed High School Smoking Status: Former smoker Alcohol Intake: never Alcohol Intake Frequency:: other Substance Use Type: marijuana Last Used Substance: unknown *Occupational Status:: unemployed, other Housing: house Household Members: spouse *Travel in the last 8 weeks: None - Psychiatric History Expresses thoughts of harming self/others: None Suicide Plan Description: No Plan Pschychiatric History:: Reports:: Anxiety Family Hx:: Hypertension, Thyroid Disorder Review of Systems - Review of Systems Review of systems:: pertinent systems reviewed and negative unless documented below - *Neurologic Reports unsteadiness (ankle instability), Reports weakness Meds Home Medications Medication Instructions Recorded Confirmed Type propranolol 40 mg tablet 40 mg PO BID 05/17/18 01/05/19 History e
--- NOTE | 2019-01-06 08:32 | P.CONS_ITS ---
*Admission Date: 01/05/19 *Chief complaint: Status post podiatry surgery *History of present illness: Mrs. Macias is a 33 y/o F who is being admitted for 23-hour observations following a left foot and ankle surgery. The patient has an extensive medical history, including: Anxiety, Arrhythmia, Asthma, Atrial Fibrillation, Cancer (endometrial and skin), Deep Vein Thrombosis (3 years ago), Gastroesophageal Reflux Disease (GERD), Heart Murmur, Hyperlipidemia, Hypertension, Migraine, Osteoporosis, Pulmonary Embolism, Supraventricular Tachycardia and Ulcer. PCP: Dr. Falk and she sees [facility] cardiology. She reports history of DVT/PE in 2016 from cross country car ride. She was treated with Lovenox x 6 months. She has not been on blood thinner for over 2.5 years. She also reports chronic knee and back pain. She has discussed bariatric surgery and breast reduction with a physician in [place]. They recommended to wait on these 2 things until the foot has been addressed. Patient also recently saw Dr. Hannon for chronic knee pain. Patient was seen by a [employer] many years ago but no definitive diagnosis given. She has experienced pain in the feet, ankle joints, hands and wrists. Patient's mother reports normal developmental and walking milestones. But reports a complication from some medication during , that left her in hospital for 7 months. Patient wore inserts as a child but denies bracing or casting. Given the recent lab work and Intra-Op findings will recommend rheumatology referral outpatient for new diagnosis of rheumatoid arthritis. Above note per Dr. Darden: Patient does have extensive medical problems are currently they are in remission state-she has been feeling well lately and has been much more functional. Currently on no medications at home except propranolol for rate control and mild anxiety. Her asthma has been under excellent control. She has had no recurrent clots She has a history of some substance abuse issues. Please see recent drug s creens but in preparation for surgery has been able to be maintained/stay off controlled substances from the street. [facility] History I have reviewed the patient's past medical history: Yes Medical History: Reports:: Anxiety, Arrhythmia, Asthma, Atrial Fibrillation, Cancer (endometrial and skin ), Deep Vein Thrombosis, Gastroesophageal Reflux Disease(GERD), Heart Murmur, Hyperlipidemia, Hypertension, Migraine, Osteoporosis, Pulmonary Embolism, Supraventricular Tachycardia, Ulcer Denies:: Diabetes Mellitus Type 1, Diabetes Mellitus Type 2, Internal Pacemaker, MRSA, Seizures *Have you ever received a pneumonia vaccine?: No *Have you received a flu vaccine this season?: Yes Other Medical History: Reports: Anemia, Arthritis, Blood Transfusion Reaction (anemia from transfusion ), Chemotherapy, Fibromyalgia, Hormone Therapy, Hypothyroidism, Liver Disease (being evaluated ), Osteoporosis Laterality Cases: Bilateral: Arthroscopy Knee Other Surgeries: Yes: BSO, EGD, Hysterectomy-Total, Skin Cancer Excision, Other. No: Pacemaker Amputation: No Fractures: No - *Social History Educational Level: Completed High School Smoking Status: Former smoker Alcohol Intake: never Alcohol Intake Frequency:: other Substance Use Type: marijuana Last Used Substance: unknown *Occupational Status:: unemployed, other Housing: house Household Members: spouse *Travel in the last 8 weeks: None - Psychiatric History Expresses thoughts of harming self/others: None Suicide Plan Description: No Plan Pschychiatric History:: Reports:: Anxiety Family Hx:: Hypertension, Thyroid Disorder Review of Systems - Review of Systems Review
--- NOTE | 2019-01-06 08:34 | PC.NURSE ---
sanders catheter removed, patient educated on need inform us when she need to urinate. patient tolerated procedure without incident and voiced understanding
--- NOTE | 2019-01-06 09:10 | PC.NURSE ---
pt is wanting a bsc due to ankle surgery. distance to ambulate to the bathroom at home
--- NOTE | 2019-01-06 09:35 | PC.NURSE ---
0830 physician at bedside. jody drain pulled, patient tolerated without incident
--- NOTE | 2019-01-06 09:48 | HMH.PHAINT ---
DISCHARGE COUNSELING PROVIDED TO PATIENT FOR ALL MEDICATIONS. PATIENT VERBALIZED UNDERSTANDING AND DID NOT HAVE ANY QUESTIONS.
--- NOTE | 2019-01-06 09:51 | SW/DCPLANNER ---
Addendum entered by Lamar Holloway 01/06/19 11:49: Patient information was faxed to [facility]....Shirin stated that patient does NOT have a benefit under her insurance that covers DME. Shirin stated that she called and spoke with patient regarding situation and patient stated that her family was going to purchase a bedside commode private pay. Original Note: I have received an order for: bedside commode, shower chair, and wheelchair. Patient stated that she already has a wheel chair at home and is going to wait on getting a shower chair (insurance does NOT cover expense and family may have one). I have faxed order and patient information to [facility] for this patient to have a bedside commode at home. I will follow up with [facility] this morning. Patient will discharge home today.
--- NOTE | 2019-01-06 11:36 | PC.NURSE ---
discharged, patient transported via w/c to private vehicle, assisted patient to transfer self into car with non weight bearing left lower extremity. pateint awake alert and oriented, zero complaints at time of discharge. medications and belongings with patient
== END 2019-01-06 11:38 | disposition home or self-care (01) ==
LOC: 2ND 17:55
PROVIDERS: Admitting Provider Podiatrist; PCP Internal Medicine Adolescent Medicine; Visit Provider Podiatrist
PROC: (CPT 28715; principal; 2019-01-05 09:45)
DX: M76.821 Posterior tibial tendinitis, right leg (principal); M76.822 Posterior tibial tendinitis, left leg; M21.6X1 Other acquired deformities of right foot; M21.6X2 Other acquired deformities of left foot; M19.071 Primary osteoarthritis, right ankle and foot; M19.072 Primary osteoarthritis, left ankle and foot; M25.372 Other instability, left ankle; I10 Essential (primary) hypertension; I48.91 Unspecified atrial fibrillation; Q79.6 Ehlers-Danlos syndromes; E66.01 Morbid (severe) obesity due to excess calories; Z68.42 Body mass index [BMI] 45.0-49.9, adult; Q66.89 Other specified congenital deformities of feet; M05.79 Rheumatoid arthritis with rheumatoid factor of multiple sites without organ or systems involvement; F32.9 Major depressive disorder, single episode, unspecified
CPT/HCPCS: 28715; 28116; 27698; 27687; 27659; 27664; 27625; 73610; 73620; 73630; 73650; 76000; 80053; 81001; 85025; 85610; 85730; 87086; 88304; 88305; 96372; 96374; 97162; C1713; C1762; C1776; G0378; J2405

== ENCOUNTER → 2019-01-19 10:28 | Outpatient (CLI) | payer OTHER, SELFPAY ==
--- NOTE | 2019-01-19 10:34 | XR_ITS ---
XR ankle wt bearing LT min 3V HISTORY: Follow-up fusion ITS.REASON: post-op ORDERING PHYSICIAN: Camilla Darden DPM PATIENT AGE: 33 years Comparison: 01/05/2019 FINDINGS: There remains good alignment status post fusion of the talocalcaneal, talonavicular, and calcaneocuboid joint. Surgical hardware remains in place with good alignment. Posterior splint is noted and there are surgical skin clips present. IMPRESSION: No change status post hindfoot and midfoot fusion as described above
--- NOTE | 2019-01-19 10:34 | XR_ITS ---
XR foot wt bearing LT 3V HISTORY: Follow-up fusion, arthrodesis ITS.REASON: post-op ORDERING PHYSICIAN: Camilla Darden DPM PATIENT AGE: 33 years COMPARISON: 01/05/2019 FINDINGS: Posterior splint remains in place. Skin clips are also noted. Status post arthrodesis with fusion of the talocalcaneal joint, talonavicular joint, and calcaneocuboid joint with good alignment and no significant change. IMPRESSION: No change status post mid and hindfoot fusion
== END ==
PROVIDERS: PCP Internal Medicine Adolescent Medicine; Visit Provider Podiatrist
DX: Z98.890 Other specified postprocedural states (principal)
CPT/HCPCS: 73610; 73630

== ENCOUNTER → 2019-02-14 14:33 | Outpatient (CLI) | payer OTHER, SELFPAY ==
--- NOTE | 2019-02-14 14:44 | XR_ITS ---
XR foot wt bearing LT 3V HISTORY: Follow-up fusion ITS.REASON: post-op ORDERING PHYSICIAN: Camilla Darden DPM PATIENT AGE: 33 years COMPARISON: 01/19/2019 FINDINGS: The splint has been removed. Status post calcaneal cuboid arthrodesis with lateral bone plate. Status post talocalcaneal arthrodesis with longitudinal screw and medial bone plate. The longitudinal screw and the medial bone plate along the posterior and medial margin of the navicular. There remains good alignment. There is diffuse osteopenia. IMPRESSION: Interval removal of the posterior splint status post arthrodesis as described above with good alignment
--- NOTE | 2019-02-14 14:44 | XR_ITS ---
XR calcaneus LT min 2V CLINICAL INDICATION: Follow-up surgery ITS.REASON: post-op ORDERING PHYSICIAN: Camilla Darden DPM PATIENT AGE: 33 years Comparison: 01/05/2019 FINDINGS: The posterior splint has been removed. There remains good alignment status post arthrodesis of the talocalcaneal, calcaneocuboid, and talonavicular fusion. IMPRESSION: Status post arthrodesis of the mid and hindfoot with good alignment
== END ==
PROVIDERS: PCP Internal Medicine Adolescent Medicine; Visit Provider Podiatrist
DX: Z98.890 Other specified postprocedural states (principal)
CPT/HCPCS: 73630; 73650

== ENCOUNTER → 2019-02-24 15:47 | Outpatient (CLI) | payer OTHER, SELFPAY ==
--- NOTE | 2019-02-24 15:50 | XR_ITS ---
XR foot wt bearing LT 3V HISTORY: Follow-up fusion ITS.REASON: postop views ORDERING PHYSICIAN: Camilla Darden DPM PATIENT AGE: 33 years COMPARISON: 02/14/2019 FINDINGS: Overall no change status post arthrodesis of the talocalcaneal, talonavicular, and calcaneocuboid joint as previously described. There remains good alignment. There is mild disuse osteoporosis noted at the metatarsal heads. IMPRESSION: No change status post midfoot and hindfoot fusion
--- NOTE | 2019-02-24 15:50 | XR_ITS ---
XR calcaneus LT min 2V CLINICAL INDICATION: Follow-up surgery/fusion ITS.REASON: posotp views ORDERING PHYSICIAN: Camilla Darden DPM PATIENT AGE: 33 years Comparison: 02/14/2019 FINDINGS: Status post arthrodesis of the talocalcaneal joint, calcaneocuboid joint, and talonavicular joint as previously described. Orthopedic hardware is unchanged. No evidence of screw loosening or fracture. There is some persistent lucency in the subtalar region suggesting incomplete bony fusion. IMPRESSION: No change status post hind and midfoot arthrodesis as described above
== END ==
PROVIDERS: PCP Internal Medicine Adolescent Medicine; Visit Provider Podiatrist
DX: Z98.890 Other specified postprocedural states (principal)
CPT/HCPCS: 73630; 73650

== ENCOUNTER → 2019-03-22 12:54 | Outpatient (CLI) | payer OTHER, SELFPAY ==
--- NOTE | 2019-03-22 12:57 | XR_ITS ---
XR ankle wt bearing LT min 3V HISTORY: Follow-up fusion ITS.REASON: post operation ORDERING PHYSICIAN: Camilla Darden DPM PATIENT AGE: 33 years Comparison: 01/19/2019 FINDINGS: Status post subtalar fusion with fusion also at the calcaneocuboid and talonavicular region. There is diffuse disuse osteoporosis. The subtalar joint does appear to be fused. A cortical lucency is present at the talar dome consistent with the diffuse osteoporosis. IMPRESSION: Good alignment status post fusion with worsening disuse osteoporosis
--- NOTE | 2019-03-22 12:57 | XR_ITS ---
XR calcaneus LT min 2V CLINICAL INDICATION: Follow-up surgeryITS.REASON: post-op ORDERING PHYSICIAN: Camilla Darden DPM PATIENT AGE: 33 years Comparison: 02/24/2019 FINDINGS: Status post subtalar fusion, calcaneocuboid fusion, and talonavicular fusion. There remains good alignment with fusion of the subtalar joint. IMPRESSION: Good alignment, status post fusion
--- NOTE | 2019-03-22 12:57 | XR_ITS ---
XR foot wt bearing LT 3V HISTORY: Follow-up ORIF ITS.REASON: post-op ORDERING PHYSICIAN: Camilla Darden DPM PATIENT AGE: 33 years COMPARISON: 02/24/2019 FINDINGS: Status post subtalar arthrodesis, talonavicular fusion, and calcaneocuboid fusion. The subtalar joint does appear fused at least centrally and posteriorly. There is diffuse osteopenia which is worse compared to the previous exam. There remains good alignment. IMPRESSION: Good alignment status post subtalar and midfoot fusion with worsening disuse osteoporosis
== END ==
PROVIDERS: PCP Internal Medicine Adolescent Medicine; Visit Provider Podiatrist
DX: Z98.890 Other specified postprocedural states (principal); T81.31XA Disruption of external operation (surgical) wound, not elsewhere classified, initial encounter
CPT/HCPCS: 73610; 73630; 73650

== ENCOUNTER → 2019-04-12 10:05 | Outpatient (CLI) | payer OTHER, SELFPAY ==
--- NOTE | 2019-04-12 10:06 | CT_ITS ---
PROCEDURE: CT FOOT LT WO CON CLINICAL HISTORY: evaluate for postoperative changes and arthrodesis Persistent pain following surgery/arthrodesis, evaluate for fusion L 0 okay thanks my COMPARISON: from 03/22/2019 TECHNIQUE: Axial images obtained with sagittal and coronal reformats. All CT scans at the facility use one or more dose reduction, viz: automated exposure control, ma/kV adjustment per patient size (including targeted exams where dose is matched to indication, i.e. head), or iterative reconstruction technique. FINDINGS: There is diffuse osteopenia. Status post triple arthrodesis of the talocalcaneal, talonavicular, and calcaneocuboid joints as previously described with hardware in place as previously described. Lag screws are present from the lateral mid calcaneal region into the talus and the posterior calcaneal region into the talus. There is partial fusion of the subtalar joints with some persistent lucency along the posterior subtalar joint. Significant artifact is present from the hardware. Lateral bone plate is present at the calcaneocuboid region. A screws directed from the medial aspect of the navicular into the talus with talonavicular bone plate present. No abnormal fluid collections are evident. There is mild subcutaneous soft tissue swelling. IMPRESSION: Status post triple arthrodesis. There does not appear to be complete fusion with a faint lucency noted along the medial aspect of the talocalcaneal joint posteriorly. There are postsurgical changes with diffuse osteopenia as described above with good alignment. Dictated by: Errol Allen MD 04/12/2019 18:59 Signed by: <Electronically signed by Errol Allen MD in [place]> 04/14/2019 10:53
== END ==
PROVIDERS: PCP Internal Medicine Adolescent Medicine; Visit Provider Podiatrist
DX: Z98.890 Other specified postprocedural states (principal)
CPT/HCPCS: 73700

== ENCOUNTER 2019-05-28 15:51 | Observation (INO) ==
--- NOTE | 2019-05-28 16:15 | Emergency Department Note ---
ED Disposition Clinical Impression: Gastroenteritis, Leukocytosis Disposition: Admitted as Observation Condition on Discharge: Fair Referrals: Provider,Referral, [Primary Care Provider] - Time of Disposition: 19:33 - Critical Care Critical Care Time: No Attestation: On 05/28/19, the high probability of a clinically significant, sudden or life threatening deterioration of the following system(s) required my full and direct attention, intervention and personal management. The time I documented below is in addition to time spent performing reported procedures but includes the following listed in this critical care notation. Medical Decision Making - Medical Records Medical records reviewed: Yes: I reviewed the patient's medical records. - Dinesh Inquiry Pt receiving controlled substance: No Dinesh was queried for this patient: No Vital Signs: 05/28/19 15:59 05/28/19 17:25 05/28/19 17:58 Temperature 98.8 F Temperature Source Oral Pulse Rate [Right Radial] 53 L 52 L 59 L Respiratory Rate 22 Blood Pressure [Right Arm] 142/90 H 142/72 H 116/74 Blood Pressure Mean [Right Arm] 107 95 88 Blood Pressure Source [Right Arm] Automatic Cuff Blood Pressure Position [Right Arm] Sitting 02 Sat by Pulse Oximetry 98 98 99 Oxygen Delivery Method Room Air - Lab Data Lab results reviewed: Yes: I reviewed the patient's lab results. Lab Results 05/28/19 15:55: WBC 15.4 H, RBC 4.97, Hgb 12.5, Hct 42.0, MCV 84.5, MCH 25.1 L, MCHC 29.7 L, RDW 16.7, Plt Count 386, MPV 8.8, Neut % (Auto) 81.1 H, Lymph % (Auto) 13.3, [place] % (Auto) 5.0, Eos % (Auto) 0.2, Baso % (Auto) 0.4, Neut # (Auto) 12.5 H, Lymph # (Auto) 2.0, [place] # (Auto) 0.8, Eos # (Auto) 0.0, Baso # (Auto) 0.1, Total Counted 100, Neutrophils % (Manual) 78 H, Band Neutrophils % 1.0, Lymphocytes % (Manual) 18, Monocytes % (Manual) 3, Platelet Estimate Normal, Hypochromasia 2+ 05/28/19 15:55: Sodium 141, Potassium 3.5, Chloride 104, Carbon Dioxide 20 L, Anion Gap 20.5 H, BUN 8, Creatinine 1.15 H, Estimated Creat Clear 74, Estimated GFR 54 L, Est GFR ( Amer) 65, Glucose 165 H, Calcium 9.5, Total Bilirubin 0.5, AST 15, ALT 14, Alkaline Phosphatase 129 H, Total Protein 8.5 H D, Albumin 3.7, Globulin 4.8 H, Albumin/Globulin Ratio 0.8 L, Lipase 154 05/28/19 18:20: Lactate 2.6 H Result diagrams: 05/28/19 15:55 05/28/19 15:55 Orders (Tests/Meds): ED MEDICATIONS Generic Name Dose Route Start Last Admin Trade Name Freq PRN Reason Stop Dose Admin Sodium Chloride 1,000 mls @ 999 mls/hr 05/28/19 16:15 05/28/19 16:33 Sod Chlor 0.9% 1000ml Bag IV 05/28/19 18:15 999 mls/hr .Q1H1M CLARISA Administration Discontinued Medications Generic Name Dose Route Start Last Admin Trade Name Freq PRN Reason Stop Dose Admin Dicyclomine HCl 10 mg 05/28/19 16:11 05/28/19 16:33 Bentyl 10mg Capsule PO 05/28/19 16:12 10 mg ONCE ONE Administration Ioversol 75 ml 05/28/19 17:33 05/28/19 17:35 Rad-Optiray 350 100ml Vial IV 05/28/19 17:34 75 ml ONCE ONE Administration Protocol Ondansetron HCl 4 mg 05/28/19 18:46 05/28/19 18:54 Zofran 4mg/2ml Vial IV 05/28/19 18:47 4 mg ONCE ONE Administration Promethazine HCl 12.5 mg 05/28/19 16:10 05/28/19 16:23 Phenergan 25mg/Ml 1ml Vial IV 05/28/19 16:11 12.5 mg ONCE ONE Administration Sodium Chloride 25 ml 05/28/19 16:10 05/28/19 16:23 Sod Chlor 0.9% 25ml Bag IV 05/28/19 16:11 25 ml ONCE ONE Administration Sodium Chloride 10 ml 05/28/19 17:33 05/28/19 17:35 Rad-Saline Flush 10ml Syringe IV 05/28/19 17:34 10 ml ONCE ONE Administration ORDERS Category Date Time Status CT abdomen pelvis w con Stat Cat Scan 05/28/19 16:09 Taken Diarrhea 6-11 Panel, Cdiff PCR Stat Lab 05/28/19 19:14 Ordered UA [Urinalysis and Microscopic] Stat Lab 05/28/19 16:11 Ordered Blood Culture Stat Micro 05/28/19 18:20 Received Nausea/Vomiting/Diarrhea HPI - General Chief complaint: Nausea/Vomiting/Diarrhea Stated complaint: n/v/d/ Time Seen by Provider: 05/28/19 16:13 Mode of Arrival: Ambulatory Source of Information: Patient Limitations: No Limitations - History of Present Illness HPI Narrative: 2 days of n/v/d - Related Data Home Medications Medication Instructions Recorded Confirmed propranolol 40 mg tablet 40 mg PO BID 05/17/18 04/12/19 onabotulinumtoxinA 100 unit 300 unit INTRADERMA MONTHLY each 12/30/18 04/12/19 solution for injection alprazolam 0.5 mg tablet 0.5 mg PO #30 tab 01/12/19 04/14/19 fremanezumab-vfrm 225 mg/1.5 mL SQ #2 ml 04/14/19 04/14/19 subcutaneous syringe Allergies Allergy/AdvReac Type Severity Reaction Status Date / Time No Known Drug Allergies Allergy Unknown Verified 04/14/19 14:56 allergy reaction cilantro Allergy Severe throat and Uncoded 04/12/19 13:11 tongue swells, hives on face From Lactose Intolerance AdvReac Mild NA-NAUSEA/V Uncoded 04/12/19 13:11 OMITING [facility] History - Hepatitis A Screen Attestation statement:: This patient has been screened for Hepatitis A risk factors. I have reviewed the patient's past medical history: Yes Medical History: Reports:: Anxiety, Arrhythmia, Asthma, Atrial Fibrillation, Cancer, Deep Vein Thrombosis, Gastroesophageal Reflux Disease(GERD), Heart Murmur, Hyperlipidemia, Hypertension, Migraine, Osteoporosis, Pulmonary Embolism, Supraventricular Tachycardia, Ulcer Denies:: Diabetes Mellitus Type 1, Diabetes Mellitus Type 2, Internal Pacemaker, MRSA, Seizures Other Medical History: Reports: Anemia, Arthritis, Blood Transfusion Reaction (anemia from transfusion ), Chemotherapy, Fibromyalgia, Hormone Therapy, Hypothyroidism, Liver Disease (being evaluated ), Osteoporosis Laterality Cases: Other Surgeries: Yes: BSO, EGD, Hysterectomy-Total, Skin Cancer Excision, Other. No: Pacemaker Amputation: No Fractures: No Comment: Right foot surgery 2016, throat, abodminal exploratory, 2 back surgeries, esophagus stretching - Social History Smoking Status: Former smoker Alcohol Intake: never Alcohol Intake Frequency:: other Substance Use Type: marijuana Occupational Status: unemployed, other, disabled Housing: house Household Members: spouse - Psychiatric History Pschychiatric History:: Reports:: Anxiety Family Hx:: Hypertension, Thyroid Disorder ROS Obtained: Yes All systems reviewed & no additional complaints - Constitutional Constitutional: Reports chills - Cardiovascular Cardiovascular: Denies chest pain - Respiratory Respiratory: No chest congestion, No cough, No dyspnea - Gastrointestinal Gastrointestingal: Reports: cramping, diarrhea, vomiting - Genitourinary Female Genitourinary: Denies dysuria, Denies flank pain Physical Exam - General General appearance: alert, in distress, obese - Head Head exam: atraumatic, normocephalic, normal inspection - Eye Eye exam: Present: normal appearance, PERRL, EOMI - ENT ENT exam: Present: normal exam, normal oropharynx, mucous membranes moist, TM's normal bilaterally, normal external ear exam - Neck Neck exam: Present: normal inspection, full ROM, trachea midline. Absent: meningismus, lymphadenopathy - Chest Chest inspection: Present: normal inspection, symmetric chest wall rise. Absent : tenderness - Respiratory Respiratory exam: Present: normal lung sounds bilaterally. Absent: respiratory distress - Cardiovascular Cardiovascular exam: Present: regular rate, normal rhythm. Absent: JVD - Abdominal Exam Abdominal exam: Present: soft, tenderness. Absent: distention, guarding, rebound - Extremities Exam Extremities exam: Present: normal inspection, full ROM, normal capillary refill. Absent: calf tenderness - Back Exam Back exam: Present: normal inspection. Absent: tenderness - Neurological Exam Neurological exam: Present: alert, oriented X3 - Psychiatric Psychiatric exam: Present: normal affect, normal mood - Skin Skin exam: Present: warm, dry, intact, normal color
[2019-05-28 16:21] LABS: Basophils # 0.1 K/mm3 (0-0.2); Basophils % 0.4 % (0.1-2.0); Eosinophils % 0.2 % (0.1-12.0); Hemoglobin 12.5 g/dL (12.2-16.2); Lymphocytes % 13.3 % (10-50); Mean Corpuscular HGB Conc 29.7 g/dL (31.8-35.4); Mean Corpuscular Volume 84.5 fl (81-99); Mean Platelet Volume 8.8 fl (7.4-10.4); Monocytes # 0.8 K/mm3 (0.1-1.0); Neutrophils # 12.5 K/mm3 (1.8-7.8); Neutrophils % 81.1 % (37.0-80.0); Platelet Count 386 K/mm3 (142-424); Red Blood Count 4.97 M/mm3 (4.20-5.40); Red Cell Distribution Width 16.7 % (11.5-17.5); White Blood Count 15.4 K/mm3 (4.8-10.8)
[2019-05-28 16:32] LABS: Albumin Level 3.7 gm/dL (3.4-5.0); Albumin/Globulin Ratio 0.8 (1.1-1.8); Anion Gap 20.5 mEq/L (5-15); Bilirubin,Total 0.5 mg/dL (0.2-1.0); Calcium 9.5 mg/dL (8.5-10.1); Globulin 4.8 gm/dl (1.3-3.2); Total Protein,Serum 8.5 gm/dL (6.4-8.2)
[2019-05-28 17:55] LABS: Lymphocytes % 18 % (10-50); Neutrophils % 78 % (42-76); Total Cells Counted 100
[2019-05-28 17:56] LABS: Hypochromasia 2+; Monocytes % 3 % (2-9)
[2019-05-28 20:00] LABS: Appearance,Urine SL CLOUDY (Clear); Blood, Urine 3+ (Negative); Color,Urine YELLOW (Yellow); Glucose,Urine (UA) Negative (Negative); Ketones,Urine 3+ (Negative); Leukocyte Esterase,Urine Negative (Negative); Microscopic, Urine URINE MICROSCOPIC (MICROSCOPIC); PH,Urine 6.5 (5.0-8.5); Protein,Urine TRACE (Negative); Specific Gravity, Urine <= 1.005 (1.005-1.030); Urobilinogen,Urine 0.2 EU/dl (0.2)
[2019-05-28 20:02] LABS: Bilirubin,Urine Negative (Negative); WBC,Urine Occasional #/hpf (0-3)
[2019-05-29 06:03] LABS: Basophils % 0.1 % (0.1-2.0); Eosinophils # 0.1 K/mm3 (0.0-0.4); Eosinophils % 0.4 % (0.1-12.0); Hematocrit 36.5 % (37.0-47.0); Lymphocytes # 2.3 K/mm3 (0.7-4.5); Mean Corpuscular HGB Conc 29.6 g/dL (31.8-35.4); Mean Platelet Volume 8.3 fl (7.4-10.4); Monocytes % 8.2 % (1.7-9.3); Neutrophils # 8.8 K/mm3 (1.8-7.8); Neutrophils % 72.3 % (37.0-80.0); Platelet Count 310 K/mm3 (142-424); Red Blood Count 4.34 M/mm3 (4.20-5.40); Red Cell Distribution Width 16.8 % (11.5-17.5); White Blood Count 12.2 K/mm3 (4.8-10.8)
[2019-05-29 06:04] LABS: Hemoglobin 10.8 g/dL (12.2-16.2)
[2019-05-29 06:26] LABS: Phosphorous 2.7 mg/dL (2.4-4.9)
[2019-05-29 06:28] LABS: Calcium 8.2 mg/dL (8.5-10.1)
--- NOTE | 2019-05-29 09:14 | History & Physical Report ---
*Admission Date: 05/28/19 *Chief complaint: diarrhea and vomiting *History of present illness: Ms. Macias is a 34-year-old female with multiple comorbidities who presents with 3 to 4 days of diarrhea and subjective fevers. Started having emesis over the past 24 to 36 hours to the point that she is unable to hold down any fluids. States she is having decreased urine output, fatigue, dizziness. Came to the ER due to worsening symptoms and was found to be dehydrated, unable to tolerate oral intake. Did not respond to antiemetics and oral challenge. Was admitted for further management of her gastroenteritis and inability to maintain hydration enterally. On interview this morning, she states she still having vomiting that is strictly bilious at this time. Diarrhea is catrina liquid. Zofran not helping her nausea. No blood in vomit or stool. Feels weak but better since getting IV fluids. Review of labs this morning shows patient to have some hypokalemia consistent with her vomiting and diarrhea as well as mild SHAUN with a bump of 20% in her creatinine. Denies chest pain, shortness of breath, rash, syncope. [facility] History I have reviewed the patient's past medical history: Yes Medical History: Reports:: Anxiety, Arrhythmia, Asthma, Atrial Fibrillation, Cancer (ENDOMETRIAL, SKIN), Deep Vein Thrombosis, Gastroesophageal Reflux Disease(GERD), Heart Murmur, Hyperlipidemia, Hypertension, Migraine, Osteoporosis, Pulmonary Embolism, Supraventricular Tachycardia, Ulcer Denies:: Diabetes Mellitus Type 1, Diabetes Mellitus Type 2, Internal Pacemaker, MRSA, Seizures *Have you ever received a pneumonia vaccine?: Yes *Have you received a flu vaccine this season?: No Other Medical History: Reports: Anemia, Arthritis, Blood Transfusion Reaction (anemia from transfusion ), Chemotherapy, Fibromyalgia, Hormone Therapy, Hypothyroidism, Liver Disease (being evaluated ), Osteoporosis Laterality Cases: Bilateral: Arthroscopy Knee, Total Knee Replacement Other Surgeries: Yes: BSO, EGD, Hysterectomy-Total, Skin Cancer Excision, Other. No: Pacemaker Amputation: No Fractures: No - *Social History Educational Level: Completed College Smoking Status: Former smoker Tobacco Type: cigarettes # Packs/Day (cigarettes): 1 Alcohol Intake: never Alcohol Intake Frequency:: other Substance Use Type: marijuana Last Used Substance: days (ago) *Occupational Status:: unemployed, other, disabled Housing: house Household Members: spouse, family *Travel in the last 8 weeks: None - Psychiatric History Pschychiatric History:: Reports:: Anxiety Family Hx:: Cancer, Hypertension, Kidney Disease, Alcoholism, Mental illness Review of Systems - Review of Systems Review of systems:: pertinent systems reviewed and negative unless documented below Meds Home Medications Medication Instructions Recorded Confirmed Type propranolol 40 mg tablet 40 mg PO BID 05/17/18 05/28/19 History onabotulinumtoxinA 100 unit 300 unit INTRADERMA MONTHLY each 12/30/18 05/28/19 History solution for injection alprazolam 0.5 mg tablet 0.5 mg PO TIDP PRN #30 tab 01/12/19 05/28/19 History fremanezumab-vfrm 225 mg/1.5 mL 1.5 mg SQ MONTHLY #2 ml 04/14/19 05/28/19 History subcutaneous syringe Allergies Allergy/AdvReac Type Severity Reaction Status Date / Time No Known Drug Allergies Allergy Unknown Verified 04/14/19 14:56 allergy reaction cilantro Allergy Severe throat and Uncoded 04/12/19 13:11 tongue swells, hives on face From Lactose Intolerance AdvReac Mild NA-NAUSEA/V Uncoded 04/12/19 13:11 OMITING Exam Vital signs and Labs for Last 24 Hours: Temp Pulse Resp BP Pulse Ox 99.3 F 59 L 18 110/58 L 99 05/29/19 07:42 05/29/19 07:42 05/29/19 07:42 05/29/19 07:42 05/29/19 07:42 Laboratory Results - last 24 hr 05/28/19 15:55: WBC 15.4 H, RBC 4.97, Hgb 12.5, Hct 42.0, MCV 84.5, MCH 25.1 L, MCHC 29.7 L, RDW 16.7, Plt Count 386, MPV 8.8, Neut % (Auto) 81.1 H, Lymph % (Auto) 13.3, [place] % (Auto) 5.0, Eos % (Auto) 0.2, Baso % (Auto) 0.4, Neut # (Auto) 12.5 H, Lymph # (Auto) 2.0, [place] # (Auto) 0.8, Eos # (Auto) 0.0, Baso # (Auto) 0.1, Total Counted 100, Neutrophils % (Manual) 78 H, Band Neutrophils % 1.0, Lymphocytes % (Manual) 18, Monocytes % (Manual) 3, Platelet Estimate Normal, Hypochromasia 2+ 05/28/19 15:55: Sodium 141, Potassium 3.5, Chloride 104, Carbon Dioxide 20 L, Anion Gap 20.5 H, BUN 8, Creatinine 1.15 H, Estimated Creat Clear 74, Estimated GFR 54 L, Est GFR ( Amer) 65, Glucose 165 H, Calcium 9.5, Total Bilirubin 0.5, AST 15, ALT 14, Alkaline Phosphatase 129 H, Total Protein 8.5 H D, Albumin 3.7, Globulin 4.8 H, Albumin/Globulin Ratio 0.8 L, Lipase 154 05/28/19 18:20: Lactate 2.6 H 05/28/19 19:55: Urine Color Yellow, Urine Appearance Sl cloudy, Urine pH 6.5, Ur Specific [place] <= 1.005, Urine Protein Trace, Urine Glucose (UA) Negative, Urine Ketones 3+, Urine Blood 3+, Urine Nitrate Negative, Urine Bilirubin Negative, Urine Urobilinogen 0.2, Ur Leukocyte Esterase Negative, Urine RBC 5- 10, Urine WBC Occasional, Ur Squamous Epith Cells 10-20 05/28/19 22:15: Stl Aeromonas (PCR) Not detected, Stl C. cayetanensis PCR Not detected, Stool Rotavirus (PCR) Not detected, Stl Adenov F 40/41 PCR Not detected, Stool Astrovirus (PCR) Not detected, Stool Campylobacter PCR Detected A, Stl C.difficile Tox PCR Not detected, Stool Cryptosporidium PCR Not detected, Stl E.coli Shiga Tox PCR Not detected, Stool E coli O157 PCR Not detected, Stl Enterotoxigenic E PCR Not detected, Stool EPEC (PCR) Not detected, Stool EAEC (PCR) Not detected, Stl E. histolytica PCR Not detected, Stool Giardia Lamblia PCR Not detected, Stool Salmonella PCR Not detected, Stool Sapovirus (PCR) Not detected, Stl P. shigelloides PCR Not detected, Stl Shigella/EIEC PCR Not detected, St Y.enterocolitica PCR Not detected, Stool Vibrio (PCR) Not detected, Stl Vibrio cholerae PCR Not detected, Stl Norovirus GI/GII PCR Not detected 05/28/19 22:20: Lactate 2.6 H 05/29/19 00:30: Lactate 1.4 05/29/19 05:55: WBC 12.2 H, RBC 4.34, Hgb 10.8 L D, Hct 36.5 L, MCV 84.0, MCH 24.8 L, MCHC 29.6 L, RDW 16.8, Plt Count 310, MPV 8.3, Neut % (Auto) 72.3, Lymph % (Auto) 19.0, [place] % (Auto) 8.2, Eos % (Auto) 0.4, Baso % (Auto) 0.1, Neut # (Auto) 8.8 H, Lymph # (Auto) 2.3, [place] # (Auto) 1.0, Eos # (Auto) 0.1, Baso # (Auto) 0.0 05/29/19 05:55: Sodium 146 H, Potassium 3.0 L, Chloride 110 H, Carbon Dioxide 22, Anion Gap 17.0 H, BUN 7, Creatinine 1.05 H, Estimated Creat Clear 150, Estimated GFR 60, Est GFR ( Amer) 72, Glucose 123 H D, Calcium 8.2 L D, Phosphorus 2.7, Magnesium 1.5 I & O for Last 24 hours: Intake & Output 05/26/19 05/27/19 05/28/19 05/29/19 23:59 23:59 23:59 23:59 Intake Total 0 / 0 Output Total 400 / 400 Balance -400 / -400 0 / 0 Weight 129.274 kg 127.006 kg - Constitutional mild distress, morbidly obese - *Routine HEENT Exam Head: Present: normocephalic Eye: Present: EOMI, PERRL ENT: Present: mucous membranes moist - *Routine Neck Exam Present: supple. Absent: lymphadenopathy - *Routine Respiratory Exam Present: CTA bilaterally - *Routine Cardiovascular Exam Present: RRR - *Routine Abdominal Exam Present: soft Comments: Diffusely tender, worse in left side of abdomen. Bowel sounds hyperactive - *Routine Extremities Exam Absent: cyanosis, clubbing, edema - *Routine Skin Exam Present: warm. Absent: rash Comments: Numerous tattoos all over body - *Routine Neurological Exam Present: alert, oriented X3 Assessment and Plan (1) Class 3 severe obesity due to excess calories in adult Current visit: Yes Status: Acute Qualifiers: Serious obesity comorbidity presence: without serious comorbidity Body mass index: BMI 40.0-44.9 Qualified Code(s): E66.01 - Morbid (severe) obesity due to excess calories; Z68.41 - Body mass index (BMI) 40.0-44.9, adult Category: Medical Code(s): E66.01 - Morbid (severe) obesity due to excess calories Complicates all aspects of her care (2) SHAUN (acute kidney injury) Current visit: Yes Status: Acute Category: Medical Code(s): N17.9 - Acute kidney failure, unspecified Suspected due to prerenal given dehydration from vomiting and diarrhea. Will monitor for improvement with fluid resuscitation (3) Hypokalemia Current visit: Yes Status: Acute Category: Medical Code(s): E87.6 - Hypokalemia Secondary to vomiting diarrhea. Replace as needed (4) Gastroenteritis Current visit: Yes Status: Acute Category: Medical Code(s): K52.9 - Noninfective gastroenteritis and colitis, unspecified Stool sample obtained on admission. Patient found to have Campylobacter. Unable to tolerate p.o. intake at this time. We will continue aggressive antiemetics and p.o. challenge with clear liquid diet today. Until patient is able to keep down p.o. fluids and rehydrate, she requires inpatient management.
--- NOTE | 2019-05-29 11:37 | Pharmacy Consult Notes ---
[facility] Pharmacy VTE Monitoring - Patient Demographics Admission date: 05/28/19 Report Date: 05/29/19 Time: 11:37 Allergies/Adverse Reactions: Patient Allergies No Known Drug Allergies Allergy (Verified 04/14/19 14:56) Unknown allergy reaction cilantro Allergy (Severe, Uncoded 04/12/19 13:11) throat and tongue swells, hives on face From Lactose Intolerance Adverse Reaction (Mild, Uncoded 04/12/19 13:11) NA-NAUSEA/VOMITING Height: 1.78 m Weight: 127.006 kg Patient Problems: Current Active Problems Leukocytosis (Acute) Gastroenteritis (Acute) Class 3 severe obesity due to excess calories in adult (Acute) SHAUN (acute kidney injury) (Acute) Hypokalemia (Acute) - VTE Risk Labs: VTE Related Lab Results Hgb 10.8 g/dL (12.2-16.2) L D 05/29/19 05:55 Hct 36.5 % (37.0-47.0) L 05/29/19 05:55 Plt Count 310 K/mm3 (142-424) 05/29/19 05:55 BUN 7 mg/dL (7-18) 05/29/19 05:55 Creatinine 1.05 mg/dL (0.55-1.02) H 05/29/19 05:55 Estimated Creat Clear 150 mL/min (50-200) 05/29/19 05:55 Was VTE Risk Assessment Performed: Yes VTE Score: 7 VTE Risk Level: Moderate Risk - Prophylaxis VTE Prophylaxis Ordered?: Yes Types of VTE Prophylaxis: TEDS Knee High Location of Applied Device: Bilateral Lower Extremeties
--- NOTE | 2019-05-29 23:50 | Discharge Summary ---
General - General Admission date:: 05/28/19 Discharge date: 06/02/19 HPI HPI: Ms. Macias is a 34-year-old female with multiple comorbidities who presents with 3 to 4 days of diarrhea and subjective fevers. Started having emesis over the past 24 to 36 hours to the point that she is unable to hold down any fluids. States she is having decreased urine output, fatigue, dizziness. Came to the ER due to worsening symptoms and was found to be dehydrated, unable to tolerate oral intake. Did not respond to antiemetics and oral challenge. Was admitted for further management of her gastroenteritis and inability to maintain hydration enterally. On interview this morning, she states she still having vomiting that is strictly bilious at this time. Diarrhea is catrina liquid. Zofran not helping her nausea. No blood in vomit or stool. Feels weak but better since getting IV fluids. Review of labs this morning shows patient to have some hypokalemia consistent with her vomiting and diarrhea as well as mild SHAUN with a bump of 20% in her creatinine. Denies chest pain, shortness of breath, rash, syncope. Hospital Course Hospital Course: 34-year-old female who presented to the ER due to inability to keep down fluids and food for 4 to 5 days. She was admitted for gastroenteritis. Stool PCR found to be positive for Campylobacter. Initiated on aggressive and escalated antiemetic regimen during admission as she had significant nausea and vomiting throughout the entire admission. Diarrhea was very prominent, watery on initial presentation and gradually improved after treating Campylobacter with azit hromycin x3 days. Gradually had improvement in her emesis with escalation of therapy. Patient tolerating Zofran, Phenergan, Compazine, dexamethasone, sucralfate, Protonix twice daily. Initiated on probiotic. Tolerating p.o. fluids though intolerant of p.o. food. Further history elicits the patient has had similar episode several months ago where she had vomiting for days with initial inpatient treatment and symptoms resolving after about 2 weeks. Given that she continues to have some emesis but is tolerating p.o. intake with good urine output, feel she is stable enough to go home and continue oral outpatient regimen with follow-up in a week for repeat labs. Will pursue EGD over the next week as an outpatient to assess any gastric anomalies that may be underlying her emesis. ROS: Afebrile, no shortness of breath or chest pain. no Headache; abdominal pain intervally improved. Decreased stool output. Objective Vital signs: Temp Pulse Resp BP Pulse Ox 98.9 F 48 L 18 143/87 H 100 05/29/19 20:00 05/29/19 20:00 05/29/19 20:00 05/29/19 20:00 05/29/19 20:00 Narrative: - Constitutional No acute distress, morbidly obese - *Routine HEENT Exam Head: Present: normocephalic Eye: Present: EOMI, PERRL ENT: Present: mucous membranes moist - *Routine Neck Exam Present: supple. Absent: lymphadenopathy - *Routine Respiratory Exam Present: CTA bilaterally - *Routine Cardiovascular Exam Present: RRR - *Routine Abdominal Exam Present: soft Comments: Interval improvement in abdominal tenderness, most prominent in epigastric, bowel sounds normal, no CVA tenderness - *Routine Extremities Exam Absent: cyanosis, clubbing, edema - *Routine Skin Exam Present: warm. Absent: rash Comments: Numerous tattoos all over body - *Routine Neurological Exam Present: alert, oriented X3 Results Labs on day of discharge: Labs from last 24 hours 05/29/19 05/29/19 05/29/19 20:44 16:29 10:49 WBC RBC Hgb Hct MCV MCH MCHC RDW Plt Count MPV Neut % (Auto) Lymph % (Auto) [place] % (Auto) Eos % (Auto) Baso % (Auto) Neut # (Auto) Lymph # (Auto) [place] # (Auto) Eos # (Auto) Baso # (Auto) Sodium Potassium Chloride Carbon Dioxide Anion Gap BUN Creatinine Estimated Creat Clear Estimated GFR Est GFR ( Amer) Glucose POC Glucose 105 93 113 H Lactate Calcium Phosphorus Magnesium Stl Aeromonas (PCR) Stl C. cayetanensis PCR Stool Rotavirus (PCR) Stl Adenov F 40/41 PCR Stool Astrovirus (PCR) Stool Campylobacter PCR Stl C.difficile Tox PCR Stool Cryptosporidium PCR Stl E.coli Shiga Tox PCR Stool E coli O157 PCR Stl Enterotoxigenic E PCR Stool EPEC (PCR) Stool EAEC (PCR) Stl E. histolytica PCR Stool Giardia Lamblia PCR Stool Salmonella PCR Stool Sapovirus (PCR) Stl P. shigelloides PCR Stl Shigella/EIEC PCR St Y.enterocolitica PCR Stool Vibrio (PCR) Stl Vibrio cholerae PCR Stl Norovirus GI/GII PCR 05/29/19 05/29/19 05/29/19 05:55 05:55 00:30 WBC 12.2 H RBC 4.34 Hgb 10.8 L D Hct 36.5 L MCV 84.0 MCH 24.8 L MCHC 29.6 L RDW 16.8 Plt Count 310 MPV 8.3 Neut % (Auto) 72.3 Lymph % (Auto) 19.0 [place] % (Auto) 8.2 Eos % (Auto) 0.4 Baso % (Auto) 0.1 Neut # (Auto) 8.8 H Lymph # (Auto) 2.3 [place] # (Auto) 1.0 Eos # (Auto) 0.1 Baso # (Auto) 0.0 Sodium 146 H Potassium 3.0 L Chloride 110 H Carbon Dioxide 22 Anion Gap 17.0 H BUN 7 Creatinine 1.05 H Estimated Creat Clear 150 Estimated GFR 60 Est GFR ( Amer) 72 Glucose 123 H D POC Glucose Lactate 1.4 Calcium 8.2 L D Phosphorus 2.7 Magnesium 1.5 Stl Aeromonas (PCR) Stl C. cayetanensis PCR Stool Rotavirus (PCR) Stl Adenov F 40/41 PCR Stool Astrovirus (PCR) Stool Campylobacter PCR Stl C.difficile Tox PCR Stool Cryptosporidium PCR Stl E.coli Shiga Tox PCR Stool E coli O157 PCR Stl Enterotoxigenic E PCR Stool EPEC (PCR) Stool EAEC (PCR) Stl E. histolytica PCR Stool Giardia Lamblia PCR Stool Salmonella PCR Stool Sapovirus (PCR) Stl P. shigelloides PCR Stl Shigella/EIEC PCR St Y.enterocolitica PCR Stool Vibrio (PCR) Stl Vibrio cholerae PCR Stl Norovirus GI/GII PCR 05/28/19 22:15 WBC RBC Hgb Hct MCV MCH MCHC RDW Plt Count MPV Neut % (Auto) Lymph % (Auto) [place] % (Auto) Eos % (Auto) Baso % (Auto) Neut # (Auto) Lymph # (Auto) [place] # (Auto) Eos # (Auto) Baso # (Auto) Sodium Potassium Chloride Carbon Dioxide Anion Gap BUN Creatinine Estimated Creat Clear Estimated GFR Est GFR ( Amer) Glucose POC Glucose Lactate Calcium Phosphorus Magnesium Stl Aeromonas (PCR) Not detected Stl C. cayetanensis PCR Not detected Stool Rotavirus (PCR) Not detected Stl Adenov F 40/41 PCR Not detected Stool Astrovirus (PCR) Not detected Stool Campylobacter PCR Detected A Stl C.difficile Tox PCR Not detected Stool Cryptosporidium PCR Not detected Stl E.coli Shiga Tox PCR Not detected Stool E coli O157 PCR Not detected Stl Enterotoxigenic E PCR Not detected Stool EPEC (PCR) Not detected Stool EAEC (PCR) Not detected Stl E. histolytica PCR Not detected Stool Giardia Lamblia PCR Not detected Stool Salmonella PCR Not detected Stool Sapovirus (PCR) Not detected Stl P. shigelloides PCR Not detected Stl Shigella/EIEC PCR Not detected St Y.enterocolitica PCR Not detected Stool Vibrio (PCR) Not detected Stl Vibrio cholerae PCR Not detected Stl Norovirus GI/GII PCR Not detected DS: Diagnosis - Discharge Diagnosis (1) Class 3 severe obesity due to excess calories in adult Status: Chronic (2) SHAUN (acute kidney injury) Status: Resolved (3) Hypokalemia Status: Resolved (4) Gastroenteritis Status: Acute Problem details: Intractable nausea and vomiting with inability to tolerate p.o. intake until the last 24 hours before discharge. Discharge Plan - Patient Discharge Instructions ACTIVITY: Continue current activity DIET: advance to your usual diet Patient Instructions: DI for Bacterial Gastroenteritis -- Adult, Gastroenteritis Diet - Follow up Plan Follow up with: Jayden Marcum MD [Primary Care Provider] - Disposition: Home, Self-Skilled Nursing Medications: Home Medications Medication Instructions Recorded Confirmed Type propranolol 40 mg tablet 40 mg PO BID 05/17/18 05/28/19 History onabotulinumtoxinA 100 unit 300 unit INTRADERMA DIRECTED 12/30/18 05/29/19 History solution for injection each alprazolam 0.5 mg tablet 0.5 mg PO TIDP PRN #30 tab 01/12/19 05/28/19 History fremanezumab-vfrm 225 mg/1.5 mL 1.5 ml SQ MONTHLY #2 ml 04/14/19 05/29/19 History subcutaneous syringe Promethazine HCl [Phenergan 25mg 25 mg PO Q6H PRN 10 Days #40 tab 05/29/19 Rx tab] Dexamethasone [Decadron] 4 mg PO BID 3 Days #6 tab 06/02/19 Rx L. Acidophilus/Strept/LA P-Dennis 1 cap PO BID 30 Days #60 cap 06/02/19 Rx [Flores-Q Probiotic Capsule] Ondansetron [Zofran 4mg ODT] 4 mg PO TID PRN 5 Days #15 06/02/19 Rx tab.rapdis Pantoprazole Sodium [Protonix 40mg 40 mg PO BID 30 Days #60 tab 06/02/19 Rx tablet] Prochlorperazine Maleate 5 mg PO TID PRN 3 Days #5 tab 06/02/19 Rx [Compazine 10mg tablet] Promethazine HCl [Phenergan 25mg 25 mg PO Q6HP PRN 10 Days #40 tab 06/02/19 Rx tab] Sucralfate [Carafate 1gm/10mL 1 gm PO TID 10 Days #30 udc 06/02/19 Rx Susp] Prescriptions/Medication Reconciliation: New Promethazine HCl [Phenergan 25mg tab] 25 mg PO Q6H PRN 10 Days #40 tab PRN Reason: Nausea And Vomiting Sucralfate [Carafate 1gm/10mL Susp] 1 gm PO TID 10 Days #30 udc Prochlorperazine Maleate [Compazine 10mg tablet] 5 mg PO TID PRN 3 Days #5 tab PRN Reason: Nausea Dexamethasone [Decadron] 4 mg PO BID 3 Days #6 tab Pantoprazole Sodium [Protonix 40mg tablet] 40 mg PO BID 30 Days #60 tab Ondansetron [Zofran 4mg ODT] 4 mg PO TID PRN 5 Days #15 tab.rapdis PRN Reason: Nausea L. Acidophilus/Strept/LA P-Dennis [Flores-Q Probiotic Capsule] 1 cap PO BID 30 Days #60 cap Promethazine HCl [Phenergan 25mg tab] 25 mg PO Q6HP PRN 10 Days #40 tab PRN Reason: Nausea And Vomiting Continued propranolol 40 mg tablet 40 mg PO BID onabotulinumtoxinA 100 unit solution for injection 300 unit INTRADERMA DIRECTED each alprazolam 0.5 mg tablet 0.5 mg PO TIDP PRN #30 tab PRN Reason: Anxiety fremanezumab-vfrm 225 mg/1.5 mL subcutaneous syringe 1.5 ml SQ MONTHLY #2 ml - Problem Reconciliation Problems Reviewed?: Yes
[2019-05-30 07:28] LABS: Basophils % 0.2 % (0.1-2.0); Eosinophils % 0.1 % (0.1-12.0); Hematocrit 34.5 % (37.0-47.0); Hemoglobin 10.4 g/dL (12.2-16.2); Lymphocytes # 3.4 K/mm3 (0.7-4.5); Lymphocytes % 29.7 % (10-50); Mean Corpuscular HGB Conc 30.1 g/dL (31.8-35.4); Mean Corpuscular Volume 83.1 fl (81-99); Mean Platelet Volume 8.9 fl (7.4-10.4); Monocytes # 1.1 K/mm3 (0.1-1.0); Monocytes % 9.7 % (1.7-9.3); Neutrophils # 6.8 K/mm3 (1.8-7.8); Neutrophils % 60.3 % (37.0-80.0); Platelet Count 258 K/mm3 (142-424); Red Blood Count 4.15 M/mm3 (4.20-5.40); Red Cell Distribution Width 16.9 % (11.5-17.5); White Blood Count 11.3 K/mm3 (4.8-10.8)
[2019-05-30 07:31] LABS: Anion Gap 12.1 mEq/L (5-15); Calcium 8.5 mg/dL (8.5-10.1)
--- NOTE | 2019-05-30 08:59 | Progress Note ---
Internal Medicine - PN: Subj *Date: 05/30/19 *Time: 08:56 Interval history: Continues to complain of nausea and vomiting. Also complains of having diarrhea. Charted volumes do not quite match patient's reported output. Denies chest pain or shortness of breath however complains of abdominal discomfort still. Tolerating liquid diet but having emesis soon after. Denies blood in stool or vomit. Afebrile. Hemodynamically stable. Exam Vital signs and Labs for Last 24 Hours: Temp Pulse Resp BP Pulse Ox 97.9 F 45 L 17 129/79 95 05/30/19 08:00 05/30/19 08:00 05/30/19 08:00 05/30/19 08:00 05/30/19 08:00 Laboratory Results - last 24 hr 05/29/19 10:49: POC Glucose 113 H 05/29/19 16:29: POC Glucose 93 05/29/19 20:44: POC Glucose 105 05/30/19 05:34: POC Glucose 99 05/30/19 07:00: WBC 11.3 H, RBC 4.15 L, Hgb 10.4 L, Hct 34.5 L, MCV 83.1, MCH 25.0 L, MCHC 30.1 L, RDW 16.9, Plt Count 258, MPV 8.9, Neut % (Auto) 60.3, Lymph % (Auto) 29.7, [place] % (Auto) 9.7 H, Eos % (Auto) 0.1, Baso % (Auto) 0.2, Neut # (Auto) 6.8, Lymph # (Auto) 3.4, [place] # (Auto) 1.1 H, Eos # (Auto) 0.0, Baso # (Auto) 0.0 05/30/19 07:00: Sodium 144, Potassium 3.1 L, Chloride 109 H, Carbon Dioxide 26, Anion Gap 12.1, BUN 9 D, Creatinine 1.06 H, Estimated Creat Clear 80, Estimated GFR 59, Est GFR ( Amer) 71, Glucose 96, Calcium 8.5, Magnesium 1.6 I & O for Last 24 hours: Intake & Output 05/27/19 05/28/19 05/29/19 05/30/19 23:59 23:59 23:59 23:59 Intake Total 2783 / 2883 460 / 460 Output Total 400 / 400 Balance -400 / -400 2783 / 2883 460 / 460 Weight 129.274 kg 127.006 kg 130.635 kg Narrative: - Constitutional No acute distress, morbidly obese - *Routine HEENT Exam Head: Present: normocephalic Eye: Present: EOMI, PERRL ENT: Present: mucous membranes moist - *Routine Neck Exam Present: supple. Absent: lymphadenopathy - *Routine Respiratory Exam Present: CTA bilaterally - *Routine Cardiovascular Exam Present: RRR - *Routine Abdominal Exam Present: soft Comments: Diffusely tender, worse in left side of abdomen. Bowel sounds hyperactive - *Routine Extremities Exam Absent: cyanosis, clubbing, edema - *Routine Skin Exam Present: warm. Absent: rash Comments: Numerous tattoos all over body - *Routine Neurological Exam Present: alert, oriented X3 Assessment and Plan (1) Class 3 severe obesity due to excess calories in adult Current visit: Yes Status: Acute Qualifiers: Serious obesity comorbidity presence: without serious comorbidity Body mass index: BMI 40.0-44.9 Qualified Code(s): E66.01 - Morbid (severe) obesity due to excess calories; Z68.41 - Body mass index (BMI) 40.0-44.9, adult Category: Medical Code(s): E66.01 - Morbid (severe) obesity due to excess calories (2) SHAUN (acute kidney injury) Current visit: Yes Status: Acute Category: Medical Code(s): N17.9 - Acute kidney failure, unspecified (3) Hypokalemia Current visit: Yes Status: Acute Category: Medical Code(s): E87.6 - Hypokalemia (4) Gastroenteritis Current visit: Yes Status: Acute Category: Medical Code(s): K52.9 - Noninfective gastroenteritis and colitis, unspecified - Assessment and plan all Dx Assessment and Plan for all problems:: Patient continues to have significant symptoms and inability to tolerate p.o. intake. Needing continued IV hydration support. Boluses of LR PRN. Monitor for p.o. tolerance. If able to keep down fluids will meet criteria to go home. Strict I's and O's today.
[2019-05-31 07:18] LABS: Basophils # 0.1 K/mm3 (0-0.2); Basophils % 0.3 % (0.1-2.0); Eosinophils % 0.3 % (0.1-12.0); Hematocrit 37.2 % (37.0-47.0); Hemoglobin 11.1 g/dL (12.2-16.2); Lymphocytes # 3.4 K/mm3 (0.7-4.5); Lymphocytes % 24.8 % (10-50); Mean Corpuscular HGB Conc 29.8 g/dL (31.8-35.4); Mean Corpuscular Volume 83.4 fl (81-99); Mean Platelet Volume 8.8 fl (7.4-10.4); Monocytes # 1.1 K/mm3 (0.1-1.0); Monocytes % 8.4 % (1.7-9.3); Neutrophils % 66.2 % (37.0-80.0); Platelet Count 273 K/mm3 (142-424); Red Blood Count 4.46 M/mm3 (4.20-5.40); Red Cell Distribution Width 16.6 % (11.5-17.5); White Blood Count 13.6 K/mm3 (4.8-10.8)
[2019-05-31 07:33] LABS: Albumin Level 3.4 gm/dL (3.4-5.0); Albumin/Globulin Ratio 0.9 (1.1-1.8); Anion Gap 11.8 mEq/L (5-15); Bilirubin,Total 0.5 mg/dL (0.2-1.0); Calcium 8.5 mg/dL (8.5-10.1); Globulin 3.9 gm/dl (1.3-3.2); Phosphorous 2.1 mg/dL (2.4-4.9); Total Protein,Serum 7.3 gm/dL (6.4-8.2)
--- NOTE | 2019-05-31 09:39 | Progress Note ---
Internal Medicine - PN: Subj *Date: 05/31/19 *Time: 09:36 Interval history: Ms. Macias continues to have significant emesis and difficulty keeping down oral fluids. She had improvement in her urine output however with intermittent bolus rehydration. Additionally her stools are waning in frequency though still loose. Given her consistent emesis and symptomatic nature from her gastroenteritis due to Campylobacter, initiated azithromycin last night. Continuing to try different antiemetics with limited benefit. At this time she denies any other symptoms, confusion, blood in her vomit or her stool, fevers, dysuria, flank pain, chest pain, shortness of breath. Exam Vital signs and Labs for Last 24 Hours: Temp Pulse Resp BP Pulse Ox 99.0 F 52 L 20 155/86 H 99 05/31/19 08:00 05/31/19 08:00 05/31/19 08:00 05/31/19 08:00 05/31/19 08:00 Laboratory Results - last 24 hr 05/31/19 06:25: WBC 13.6 H, RBC 4.46, Hgb 11.1 L, Hct 37.2, MCV 83.4, MCH 24.9 L , MCHC 29.8 L, RDW 16.6, Plt Count 273, MPV 8.8, Neut % (Auto) 66.2, Lymph % (Auto) 24.8, [place] % (Auto) 8.4, Eos % (Auto) 0.3, Baso % (Auto) 0.3, Neut # (Auto) 9.0 H, Lymph # (Auto) 3.4, [place] # (Auto) 1.1 H, Eos # (Auto) 0.0, Baso # (Auto) 0.1 05/31/19 06:25: Sodium 143, Potassium 2.8 L*, Chloride 105, Carbon Dioxide 29, Anion Gap 11.8, BUN 8, Creatinine 1.27 H, Estimated Creat Clear 67, Estimated GFR 48 L, Est GFR ( Amer) 58 L, Glucose 83, Calcium 8.5, Phosphorus 2.1 L , Magnesium 1.9 D, Total Bilirubin 0.5, AST 70 H D, ALT 58 D, Alkaline Phosphatase 108, Total Protein 7.3, Albumin 3.4, Globulin 3.9 H, Albumin/Globulin Ratio 0.9 L I & O for Last 24 hours: Intake & Output 05/28/19 05/29/19 05/30/19 05/31/19 23:59 23:59 23:59 23:59 Intake Total 2783 / 2883 3285 / 3285 2091 Output Total 400 / 400 2600 / 2600 225 / 225 Balance -400 / -400 2783 / 2883 685 / 685 1867 / 1867 Weight 129.274 kg 127.006 kg 130.635 kg 130.635 kg Microbiology Reports for the Last 24 Hours: Microbiology 05/28/19 18:20 Blood Blood Culture - Preliminary NO GROWTH AFTER 48 HOURS 05/28/19 16:32 Blood Blood Culture - Preliminary NO GROWTH AFTER 48 HOURS Narrative: - Constitutional No acute distress, morbidly obese - *Routine HEENT Exam Head: Present: normocephalic Eye: Present: EOMI, PERRL ENT: Present: mucous membranes moist - *Routine Neck Exam Present: supple. Absent: lymphadenopathy - *Routine Respiratory Exam Present: CTA bilaterally - *Routine Cardiovascular Exam Present: RRR - *Routine Abdominal Exam Present: soft Comments: Diffusely tender, worse in left side of abdomen. Bowel sounds improving but still very active - *Routine Extremities Exam Absent: cyanosis, clubbing, edema - *Routine Skin Exam Present: warm. Absent: rash Comments: Numerous tattoos all over body - *Routine Neurological Exam Present: alert, oriented X3 Assessment and Plan (1) Class 3 severe obesity due to excess calories in adult Current visit: Yes Status: Acute Qualifiers: Serious obesity comorbidity presence: without serious comorbidity Body mass index: BMI 40.0-44.9 Qualified Code(s): E66.01 - Morbid (severe) obesity due to excess calories; Z68.41 - Body mass index (BMI) 40.0-44.9, adult Category: Medical Code(s): E66.01 - Morbid (severe) obesity due to excess calories (2) SHAUN (acute kidney injury) Current visit: Yes Status: Acute Category: Medical Code(s): N17.9 - Acute kidney failure, unspecified (3) Hypokalemia Current visit: Yes Status: Acute Category: Medical Code(s): E87.6 - Hypokalemia (4) Gastroenteritis Current visit: Yes Status: Acute Category: Medical Code(s): K52.9 - Noninfective gastroenteritis and colitis, unspecified - Assessment and plan all Dx Assessment and Plan for all problems:: 34-year-old with persistent nausea and vomiting due to Campylobacter enteritis. Improving quantity of diarrhea however still very loose watery. Initiated azithromycin. Add Compazine for antiemetic benefit today. Patient continues to be day by day as she is unable to tolerate oral fluids. Additionally will address hypokalemia with aggressive repletion today. Continues to require inpatient management as she is unable to tolerate oral fluids or keep down oral medications.
--- NOTE | 2019-05-31 16:33 | Electrocardiograph Report ---
APPROVED REPORT Exam: Resting ECG HR:61 bpm ECG Measurements Heart Rate 61 AXES AZ 114 P 32 QRSd 84 QRS 40 QT 436 T27 QTc 438 <Conclusion> Normal sinus rhythm with sinus arrhythmia Normal ECG Electronically signed by : Mak Edwards, 05/31/2019 16:32:59
[2019-06-01 09:00] LABS: Basophils % 0.5 % (0.1-2.0); Eosinophils # 0.2 K/mm3 (0.0-0.4); Eosinophils % 1.7 % (0.1-12.0); Hemoglobin 11.5 g/dL (12.2-16.2); Lymphocytes # 2.2 K/mm3 (0.7-4.5); Lymphocytes % 23.3 % (10-50); Mean Corpuscular Volume 81.2 fl (81-99); Mean Platelet Volume 8.6 fl (7.4-10.4); Monocytes % 10.1 % (1.7-9.3); Neutrophils # 6.2 K/mm3 (1.8-7.8); Neutrophils % 64.4 % (37.0-80.0); Platelet Count 206 K/mm3 (142-424); Red Blood Count 4.55 M/mm3 (4.20-5.40); Red Cell Distribution Width 16.4 % (11.5-17.5); White Blood Count 9.6 K/mm3 (4.8-10.8)
[2019-06-01 09:09] LABS: Anion Gap 12.9 mEq/L (5-15); Calcium 8.5 mg/dL (8.5-10.1)
--- NOTE | 2019-06-01 12:36 | Progress Note ---
Internal Medicine - PN: Subj *Date: 06/01/19 *Time: 12:32 Interval history: Ms. Macias continues to have emesis overnight. Poor tolerance of p.o. fluids. Having good urine output and decrease in stools. Had 3 small loose stools in the past 24 hours. Continues to complain of significant nausea. Gets the most benefit from Compazine. States her discomfort is predominantly mid epigastric and then through the distribution of her abdominal muscle. Denies any blood in her vomit or stool. No fever. Labs this morning her white count has normalized but she continues to have hypokalemia due to emesis. Discussed the need for her to challenge herself with oral fluids after taking medication for nausea especially if they decreased her nausea. She says she will try today. Exam Vital signs and Labs for Last 24 Hours: Temp Pulse Resp BP Pulse Ox 99.2 F 68 18 169/107 H 100 06/01/19 08:00 06/01/19 08:00 06/01/19 08:00 06/01/19 08:00 06/01/19 08:00 Laboratory Results - last 24 hr 06/01/19 08:50: WBC 9.6 D, RBC 4.55, Hgb 11.5 L, Hct 37.0, MCV 81.2, MCH 25.2 L , MCHC 31.0 L, RDW 16.4, Plt Count 206, MPV 8.6, Neut % (Auto) 64.4, Lymph % (Auto) 23.3, [place] % (Auto) 10.1 H, Eos % (Auto) 1.7, Baso % (Auto) 0.5, Neut # (Auto) 6.2, Lymph # (Auto) 2.2, [place] # (Auto) 1.0, Eos # (Auto) 0.2, Baso # (Auto) 0.0 06/01/19 08:50: Sodium 143, Potassium 2.9 L*, Chloride 104, Carbon Dioxide 29, Anion Gap 12.9, BUN 5 L D, Creatinine 1.05 H, Estimated Creat Clear 81, Estimated GFR 60, Est GFR ( Amer) 72 D, Glucose 86, Calcium 8.5, Magnesium 1.7 D I & O for Last 24 hours: Intake & Output 05/29/19 05/30/19 05/31/19 06/01/19 23:59 23:59 23:59 23:59 Intake Total 2783 / 2883 3285 / 3285 4030 / 4030 1434 / 1434 Output Total 2600 / 2600 2575 / 2575 1000 / 1000 Balance 2783 / 2883 685 / 685 1455 / 1455 434 / 434 Weight 127.006 kg 130.635 kg 130.635 kg 130.635 kg Narrative: - Constitutional No acute distress, morbidly obese - *Routine HEENT Exam Head: Present: normocephalic Eye: Present: EOMI, PERRL ENT: Present: mucous membranes moist - *Routine Neck Exam Present: supple. Absent: lymphadenopathy - *Routine Respiratory Exam Present: CTA bilaterally - *Routine Cardiovascular Exam Present: RRR - *Routine Abdominal Exam Present: soft Comments: Diffusely tender, worse in left side of abdomen. Bowel sounds improving but still very active - *Routine Extremities Exam Absent: cyanosis, clubbing, edema - *Routine Skin Exam Present: warm. Absent: rash Comments: Numerous tattoos all over body - *Routine Neurological Exam Present: alert, oriented X3 Assessment and Plan (1) Class 3 severe obesity due to excess calories in adult Current visit: Yes Status: Chronic Qualifiers: Serious obesity comorbidity presence: without serious comorbidity Body mass index: BMI 40.0-44.9 Qualified Code(s): E66.01 - Morbid (severe) obesity due to excess calories; Z68.41 - Body mass index (BMI) 40.0-44.9, adult Category: Medical Code(s): E66.01 - Morbid (severe) obesity due to excess calories (2) SHAUN (acute kidney injury) Current visit: Yes Status: Acute Category: Medical Code(s): N17.9 - Acute kidney failure, unspecified (3) Hypokalemia Current visit: Yes Status: Acute Category: Medical Code(s): E87.6 - Hypokalemia (4) Gastroenteritis Current visit: Yes Status: Acute Category: Medical Code(s): K52.9 - Noninfective gastroenteritis and colitis, unspecified - Assessment and plan all Dx Assessment and Plan for all problems:: 34-year-old female with intractable nausea and vomiting. Status post treatment for Campylobacter enteritis. White count has normalized. Continues to have electrolyte disturbances. Kidney function back to baseline. We will continue aggressive IV rehydration and treatment options for her nausea as she is not appropriate for discharge if she cannot tolerate oral medication or fluids. Would be at high risk for kidney injury and dehydration and readmission. We will add dexamethasone to her antiemetic regimen today. Additionally will add sucralfate to help coat and ease her stomach discomfort. Has finished 3 days of azithromycin for Campylobacter treatment. Encouraged to drink at least 8 ounces of fluid by 1 PM. If unable to tolerate further interval advancement, will need reassessment with possible EGD. Continues to require inpatient management at this time.
[2019-06-02 07:23] LABS: Anion Gap 12.4 mEq/L (5-15); Calcium 8.7 mg/dL (8.5-10.1)
== END 2019-06-02 16:13 | disposition home or self-care (01) ==
LOC: ER 15:51 → 2ND 15:51
PROVIDERS: ADMIT Emergency Medicine; ATTEND Internal Medicine Adolescent Medicine
CPT/HCPCS: 36415; 74177; 80048; 80053; 81001; 82962; 83605; 83690; 83735; 84100; 85007; 85025; 87040; 87506; 90686; 90732; 93005; 96365; 96375; 99284; G0378; J0456; J2405; Q9967

== ENCOUNTER → 2019-06-21 14:39 | Outpatient (CLI) | payer OTHER, SELFPAY ==
--- NOTE | 2019-06-21 14:42 | XR_ITS ---
PROCEDURE: XR FOOT WT BEARING LT 3V CLINICAL INDICATION: postop views Follow-up surgery, arthrodesis COMPARISON: FINDINGS: Status post triple arthrodesis of the talocalcaneal joint, talonavicular joint, and calcaneocuboid joint. There has been fusion of the talocalcaneal joint and near complete fusion of the tail 0 navicular joint. Calcaneocuboid joint remains patent. There is generalized osteopenia with mild osteoarthritic change of the 1st MTP joint IMPRESSION: Status post triple arthrodesis as described above with good alignment Dictated by: Errol Allen MD 06/21/2019 15:21 Electronically signed by Errol Allen MD in [facility] 06/21/2019 15:21
== END ==
PROVIDERS: PCP Internal Medicine Adolescent Medicine; Visit Provider Podiatrist
DX: M19.072 Primary osteoarthritis, left ankle and foot (principal); Z98.890 Other specified postprocedural states; M96.89 Other intraoperative and postprocedural complications and disorders of the musculoskeletal system
CPT/HCPCS: 73630

== ENCOUNTER 2019-07-21 14:00 | Outpatient (RCR) | payer OTHER, SELFPAY ==
--- NOTE | 2019-07-05 14:45 | HMH.PTOPEV ---
PT Outpatient Evaluation Rehab PT Outpatient Evaluation Start: 07/05/19 13:07 Freq: Status: Active Protocol: Document 07/05/19 14:24 PHOEUGENE (Rec: 07/05/19 14:44 PHORNE [id number]) Electronically Signed By Morris Maldonado, PT 07/05/19 14:24 Outpatient Therapy Subjective History Subjective History Pt is 34 yowf who presents with c/o pain in the left foot /ankle x ~ 6 mos S/P surgery for triple arthrodesis of the ankle and multiple tendon repairs/lengthenings. She reports significant pain in the forefoot with walking and some numbness along the lateral side of her left foot. She has significant PMH including: anxiety, asthma, a- fib, endometrial cancer, DRAKE/ BSO, DVT left LE, GERD, HL, HTN, PE, osteoporosis, fibromyalgia, B knee arthroscopy. Chief Complaint Pain Symptom Type Ache,Throb,Sharp,Stabbing, Numbness,Tingling,Shooting Symptoms Relieved By Heat Symptoms Aggravated By Standing,Walking Prior Functional Limitations None Current Functional Limitations Standing,Walking Symptom Description Constant but Variable Level of pain today (0-10) 5 Pain scale - at its worst (0-10) 8 Ankle/Foot Eval Gait Observation General Gait Pattern Observation Antalgic Gait,Wide Based Gait, Decrease Weight Bear (L) Palpation Tenderness left Ankle/Foot Palpation Findings Tenderness Ankle/Foot Palpation Overall Comment incisions ROM Ankle/Foot Dorsiflexion w/Knee Extended 0-8 Active Range Motion (degrees) Ankle/Foot Plantar Flexion Active Range 0-45 of Motion (degrees) Ankle/Foot Eversion Active Range of 0-5 Motion (degrees) Ankle/Foot Eversion Passive Range of 0-15 Motion (degrees) Ankle/Foot Inversion Active Range of 0-5 Motion (degrees) Ankle/Foot Inversion Passive Range of 0-20 Motion (degrees) MMT Ankle Dorsiflexion Strength Grade 4 Good Ankle Plantarflexion Strength Grade 4 Good Foot Eversion Strength Grade 2 Poor Foot Inversion Strength Grade 2 Poor Outpatient Therapy Assessment Impairments Problems/Impairmments Palpation Tenderness,Impaired Range of Motion,Impaired Strength,Impaired Endurance, Impaired
== END 2019-07-21 14:05 | disposition home or self-care (01) ==
LOC: PT 14:00
PROVIDERS: Visit Provider Podiatrist
DX: Z98.890 Other specified postprocedural states (principal); Z98.1 Arthrodesis status
CPT/HCPCS: 97010; 97014; 97110; 97140; 97163; G0283

== ENCOUNTER → 2019-08-03 16:02 | Outpatient (CLI) | payer OTHER, SELFPAY ==
--- NOTE | 2019-08-03 16:04 | MM_ITS ---
PROCEDURE: MM DIG SCREENING MAMM BI W/CAD CLINICAL INDICATION: SCREENING There is a history of breast cancer patient's mother diagnosed before menopause and the patient's maternal grandmother diagnosed after menopause and maternal aunt diagnosed before menopause. There has been a previous biopsy left breast for benign disease. COMPARISON: MAMMOGRAM, LT 1-6 MO F/U ([facility]) PG from 09/23/2016 MAMMOGRAM, ANNUAL SCREENING ([facility] ONLY) PG from 04/03/2017 [facility] MM Dig screening mamm BI w/CAD from 07/16/2018 TECHNIQUE: Standard CC and MLO images were obtained. R2 CAD reviewed. FINDINGS: The breasts are composed primarily of fat with minimal scattered fibroglandular densities throughout each breast. There is a biopsy clip left breast. There is no suspicious lesion and no suspicious microcalcifications. IMPRESSION: Fatty type breast parenchyma with no suspicious lesions seen BI-RAD Category: 2 Benign Finding(s) FOLLOW-UP: 1YR 1 Year Follow-up (A letter has been sent to the patient regarding results of the study.) Dictated by: Dr. Franky Rome MD 08/05/2019 08:[address] Franky Rome MD in [place] 08/05/2019 08:44
== END ==
PROVIDERS: PCP Internal Medicine Adolescent Medicine; Visit Provider Internal Medicine Adolescent Medicine
DX: Z12.31 Encounter for screening mammogram for malignant neoplasm of breast (principal)
CPT/HCPCS: 77067

== ENCOUNTER → 2019-09-07 11:30 | Outpatient (CLI) | payer OTHER, SELFPAY ==
--- NOTE | 2019-09-07 11:36 | XR_ITS ---
PROCEDURE: XR FOOT WT BEARING RT 3V CLINICAL INDICATION: Foot pain COMPARISON: FTWBR3 XR foot wt bearing RT 3V from 06/22/2018 FTWBL3 XR foot wt bearing LT 3V from 06/22/2018 XR FOOT WT BEARING LT 3V from 06/21/2019 FINDINGS: No fracture or dislocation. No lytic or blastic change. There is normal mineralization. There is mild subchondral sclerosis involving distal and proximal aspects of the 1st metatarsal and the distal 1st cuneiform and the navicular and talus at the talonavicular joint-findings consistent with mild osteoarthritis. Some loss of 1st and 2nd metatarsophalangeal joint spaces is noted. Moderate plantar calcaneal spurring is noted. Other findings:None. IMPRESSION: Mild multi joint osteoarthritis. No acute findings. Dictated by: Jamie Blancas 09/07/2019 15:38 Electronically signed by Jamie Blancas in [place] 09/07/2019 15:38
--- NOTE | 2019-09-07 11:36 | XR_ITS ---
PROCEDURE: XR FOOT WT BEARING LT 3V CLINICAL INDICATION: Foot Pain COMPARISON: FTWBR3 XR foot wt bearing RT 3V from 06/22/2018 FTWBL3 XR foot wt bearing LT 3V from 06/22/2018 CT ABDOMEN PELVIS W CON from 05/28/2019 XR FOOT WT BEARING LT 3V from 06/21/2019 FINDINGS: Postoperative change from triple arthrodesis of the talocalcaneal joint, talo navicular joint, and calcaneo cuboid joint are noted. Metallic hardware is in place. Interval fusion at the calcaneocuboid joint is noted. There is demineralization. There is osteoarthritis a multiple joint spaces perhaps greatest at 1st metatarsophalangeal joint. No significant degenerative/arthritic changes. No erosive changes evident. Other findings:None. IMPRESSION: Postoperative changes as described. No acute findings. Dictated by: Jamie Blancas 09/07/2019 16:08 Electronically signed by Jamie Blancas in [place] 09/07/2019 16:08
== END ==
PROVIDERS: PCP Internal Medicine Adolescent Medicine; Visit Provider Podiatrist
DX: M79.671 Pain in right foot (principal); M79.672 Pain in left foot
CPT/HCPCS: 73630

== ENCOUNTER → 2020-01-03 12:59 | Outpatient (CLI) | payer OTHER, SELFPAY ==
[2020-01-03 13:29] LABS: Basophils # 0.1 K/mm3 (0-0.2); Basophils % 0.5 % (0.1-2.0); Eosinophils # 0.5 K/mm3 (0.0-0.4); Eosinophils % 5.1 % (0.1-12.0); Hematocrit 38.9 % (37.0-47.0); Hemoglobin 12.4 g/dL (12.2-16.2); Lymphocytes # 2.5 K/mm3 (0.7-4.5); Lymphocytes % 28.2 % (10-50); Mean Corpuscular HGB Conc 31.8 g/dL (31.8-35.4); Mean Corpuscular Hemoglobin 26.1 pg (27.0-31.2); Mean Corpuscular Volume 82.1 fl (81-99); Mean Platelet Volume 8.1 fl (7.4-10.4); Monocytes # 0.5 K/mm3 (0.1-1.0); Monocytes % 5.9 % (1.7-9.3); Neutrophils # 5.4 K/mm3 (1.8-7.8); Neutrophils % 60.3 % (37.0-80.0); Platelet Count 245 K/mm3 (142-424); Red Blood Count 4.73 M/mm3 (4.20-5.40); Red Cell Distribution Width 15.9 % (11.5-17.5)
[2020-01-03 14:07] LABS: Erythrocyte Sedimentation Rate 21 mm/hr (0-20)
[2020-01-03 17:04] LABS: Alanine Aminotransferase 16 U/L (12-78); Albumin Level 4.3 g/dl (3.5-5.0); Albumin/Globulin Ratio 1.3 (1.1-1.8); Alkaline Phosphatase 113 U/L (38-126); Anion Gap 12.6 mEq/L (5-15); Aspartate Amino Transferase 24 U/L (14-36); Blood Urea Nitrogen 26 mg/dl (7-17); Calcium 9.7 mg/dl (8.4-10.2); Carbon Dioxide 27 mmol/L (22.0-30.0); Chloride 103 mmol/L (98-107); Estimated Glomerular Filt Rate 71 ml/min (>60); GFR (African American) 86 ML/MIN (>60); Globulin 3.4 g/dL (1.3-3.2); Glucose 92 mg/dl (74-100); Potassium 4.6 mmoL/L (3.5-5.1); Sodium 138 mmol/L (136-145); Total Protein,Serum 7.7 g/dl (6.3-8.2); Uric Acid 5.2 mg/dl (2.5-6.2)
[2020-01-03 17:13] LABS: C-Reactive Protein 3.2 mg/L (0-4)
[2020-01-03 17:27] LABS: Bilirubin,Total 0.1 mg/dl (0.2-1.3)
[2020-01-03 17:38] LABS: Thyroid Stimulating Hormone 2.65 uIU/mL (0.465-4.68)
[2020-01-04 11:28] LABS: Folate 7.4 ng/mL (>3.0); Vitamin B12 694 pg/mL (232-1245)
[2020-01-04 16:14] LABS: RA Latex Turbid. <10.0 IU/mL (0.0-13.9)
[2020-01-05 11:35] LABS: Antinuclear Antibodies, IFA Positive (.)
[2020-01-06 05:36] LABS: QuantiFERON-TB Gold Plus Negative (Negative)
== END ==
PROVIDERS: Podiatrist; Visit Provider Internal Medicine Adolescent Medicine
DX: M06.9 Rheumatoid arthritis, unspecified (principal); Z98.890 Other specified postprocedural states
CPT/HCPCS: 36415; 80053; 82607; 82652; 82746; 84443; 84550; 85025; 85651; 86038; 86140; 86431; 86480

== ENCOUNTER → 2020-01-27 13:28 | Outpatient (CLI) | payer OTHER, SELFPAY ==
--- NOTE | 2020-01-27 14:38 | MR_ITS ---
PROCEDURE: MR FOOT LT WO/W CON CLINICAL INDICATION: BILATERAL FOOT PAIN Prior surgery with pain prior triple arthrodesis, metatarsus at adductus, soft tissue mass, neuroma COMPARISON: FOOTLTWW MR foot LT wo/w con from 07/01/2018 XR FOOT WT BEARING LT 3V from 09/07/2019 TECHNIQUE: Routine multiplanar multi echo sequences are performed without and with gadolinium enhancement. FINDINGS: Extensive artifact is present from prior triple arthrodesis. There is mild metatarsus varus. The artifact obscures much of the tarsal bones. No obvious fracture or dislocation. There is some subcutaneous edema about the foot and ankle. There is a small ankle joint effusion. No abscess or abnormal enhancement apparent. No evidence of osteomyelitis. There is a small amount of subcortical increased T2 signal at the lateral tibial plafond the. Small amount of fluid is noted along the medial aspect of the 2nd metatarsal and at the distal aspect of the 1st intermetatarsal space. There is a small ankle joint effusion. Small amount of fluid also noted between the head of the 2nd and 3rd and 3rd and 4th metatarsal suggesting synovitis IMPRESSION: Status post triple arthrodesis with prominent artifact. Mild metatarsus varus with small ankle joint effusion and a small amount of fluid along the 1st intermetatarsal space distally and medial to the 2nd metatarsal. Small amount of fluid also noted between the head of the 2nd and 3rd and 3rd and 4th metatarsal suggesting synovitis. No mass abscess or other significant anomaly. Dictated by: Errol Allen MD 01/31/2020 09:42 Electronically signed by Errol Allen MD in [place] 01/31/2020 09:42
--- NOTE | 2020-01-27 14:38 | MR_ITS ---
PROCEDURE: MR FOOT RT WO/W CON CLINICAL INDICATION: BILATERAL FOOT PAIN Feet turning inward, painful to walk, metatarsus adductus COMPARISON: FOOTRTWO MR foot RT wo con from 07/16/2018 TECHNIQUE: Routine multiplanar multi echo sequences are performed without and with gadolinium enhancement. FINDINGS: Small ankle joint effusion. Small subarticular cyst involving the calcaneus anteriorly at the junction of the subtalar joints. Previously noted edema within the calcaneus at the posterior subtalar joint is less apparent now with a small cyst at this area. There is a small amount of bone marrow edema just inferior to the junction of the subtalar joints within the calcaneus. The talar dome has an unremarkable appearance. The peroneal tendons posterior tibialis, flexor hallucis longus and flexor digitorum longus have an unremarkable appearance. There is a small cystic area in the Achilles tendon at 3 mm. No evidence tendon rupture. This is not significantly changed. No ligamentous abnormality. There is a small amount of fluid between the 1st and 2nd metatarsals and 3rd and 4th metatarsals which may be due to mild intermetatarsal bursitis. No soft tissue mass. There is generalized subcutaneous edema at the ankle. No acute fracture.. IMPRESSION: There is a small subarticular cyst along the calcaneus at the junction of the posterior and anterior subtalar joint. There was some edema at this area which has improved. There is some small amount of edema just deep to the posterior aspect of the subtalar joint. Small ankle joint effusion. Possible small intermetatarsal bursitis at the 1st and 2nd and 3rd and 4th metatarsal area Dictated by: Errol Allen MD 01/31/2020 09:59 Electronically signed by Errol Allen MD in [place] 01/31/2020 09:59
== END ==
PROVIDERS: PCP Internal Medicine Adolescent Medicine; Visit Provider Podiatrist
DX: Q66.222 Congenital metatarsus adductus, left foot (principal); Q66.221 Congenital metatarsus adductus, right foot; M25.50 Pain in unspecified joint; M79.672 Pain in left foot; M79.671 Pain in right foot
CPT/HCPCS: 73720; A9576

== ENCOUNTER 2020-03-11 10:14 | Emergency (ER) | payer OTHER, SELFPAY ==
[2020-03-11] VITALS (7 sets, daily range): BP systolic 95–115; BP diastolic 56–76; PULSE 91–115; RESP 18–20; TEMP 37.2–39.2; O2SAT 87–96; BMI 41.3
--- NOTE | 2020-03-11 10:40 | XR_ITS ---
PROCEDURE: XR CHEST PORTABLE CLINICAL HISTORY: cough/fever COMPARISON: CXR1 CHEST-PORTABLE from 04/07/[address] angio chest from 05/28/2018 CXR2V XR chest 2V from 10/11/2018 FINDINGS: Expanded. There is moderately dense consolidation peripheral aspect of the right upper lobe primarily involving the anterior segment with faint air bronchograms seen. The cardiac size is normal. There is no pleural fluid. Right lower lobe and middle lobe appear clear, left lung purvis well expanded and clear. IMPRESSION: Moderately dense right upper lobe pneumonia Dictated by: Dr. Franky Rome MD 03/11/2020 11:[address] Franky Rome MD in [place] 03/11/2020 11:48
[2020-03-11 10:47] LABS: Appearance,Urine CLEAR (Clear); Bilirubin,Urine Negative (Negative); Blood, Urine 3+ (Negative); Color,Urine YELLOW (Yellow); Glucose,Urine (UA) Negative (Negative); Ketones,Urine Negative (Negative); Leukocyte Esterase,Urine Negative (Negative); Nitrate,Urine Negative (Negative); PH,Urine 8.5 (5.0-8.5); Protein,Urine 1+ (Negative); Specific Gravity, Urine 1.015 (1.005-1.030); Urobilinogen,Urine 0.2 EU/dl (0.2)
[2020-03-11 10:48] LABS: Microscopic, Urine URINE MICROSCOPIC (MICROSCOPIC)
--- NOTE | 2020-03-11 10:49 | PC.NURSE ---
got pt some warm [id number]
--- NOTE | 2020-03-11 10:50 | HMH.EDFEV ---
ED Disposition Clinical Impression: Community acquired bacterial pneumonia Community acquired pneumonia Qualifiers: Laterality: right Lung location: upper lobe of lung Qualified Code(s): J18.9 - Pneumonia, unspecified organism Disposition: Home, Self-Care Condition on Discharge: Good Instructions: Pneumonia-Adult Prescriptions: levoFLOXacin [Levofloxacin 750MG Tablet] 750 mg PO DAILY #7 tab Transmission Status: Sent to [id number] Referrals: Jayden Marcum MD [Primary Care Provider] - - Critical Care Critical Care Time: No Attestation: On 03/11/20, the high probability of a clinically significant, sudden or life threatening deterioration of the following system(s) required my full and direct attention, intervention and personal management. The time I documented below is in addition to time spent performing reported procedures but includes the following listed in this critical care notation. Medical Decision Making - Medical Records Medical records reviewed: Yes: I reviewed the patient's medical records. - Dinesh Inquiry Pt receiving controlled substance: No Vital Signs: 03/11/20 10:15 03/11/20 10:48 03/11/20 11:01 Temperature 102.5 F H Temperature Source Oral Pulse Rate [Left Radial] 115 H 108 H 109 H Respiratory Rate 20 20 Blood Pressure [Right Arm] 115/75 115/75 101/59 L Blood Pressure Mean [Right Arm] 88 88 73 Blood Pressure Source [Right Arm] Automatic Cuff Blood Pressure Position [Right Arm] Sitting Supine Sitting 02 Sat by Pulse Oximetry 94 L 96 87 L Oxygen Delivery Method Room Air Room Air - Lab Data Lab results reviewed: Yes: I reviewed the patient's lab results. Lab Results 03/11/20 10:25: WBC 24.3 H*, RBC 4.69, Hgb 13.1, Hct 39.1, MCV 83.4, MCH 27.9, MCHC 33.5, RDW 14.8, Plt Count 243, MPV 7.8, Neut % (Auto) 81.7 H, Lymph % (Auto) 9.7 L, [place] % (Auto) 7.7, Eos % (Auto) 0.7, Baso % (Auto) 0.2, Neut # (Auto) 19.9 H, Lymph # (Auto) 2.4, [place] # (Auto) 1.9 H, Eos # (Auto) 0.2, Baso # (Auto) 0.1, Total Counted 100, Neutrophils % (Manual) 71, Band Neutrophils % 2.0, Lymphocytes % (Manual) 15, Monocytes % (Manual) 9, Eosinophils % (Manual) 3, Platelet Estimate Normal, RBC Morphology Normal, ESR 22 H 03/11/20 10:25: Sodium 136, Potassium 4.1, Chloride 98, Carbon Dioxide 30, Anion Gap 12.1, BUN 12, Creatinine 0.90, Estimated Creat Clear 91, Estimated GFR 71, Est GFR ( Amer) 86, Glucose 118 H, Calcium 8.5, Total Bilirubin 0.6, AST 32, ALT 31, Alkaline Phosphatase 107, Total Protein 7.5, Albumin 3.7, Globulin 3.8 H, Albumin/Globulin Ratio 1.0 L 03/11/20 10:25: Lactate 1.5 03/11/20 10:25: Urine Color Yellow, Urine Appearance Clear, Urine pH 8.5, Ur Specific [place] 1.015, Urine Protein 1+, Urine Glucose (UA) Negative, Urine Ketones Negative, Urine Blood 3+, Urine Nitrate Negative, Urine Bilirubin Negative, Urine Urobilinogen 0.2, Ur Leukocyte Esterase Negative, Urine RBC 50-100, Urine WBC Occasional, Ur Squamous Epith Cells 10-20, Urine Bacteria None 03/11/20 10:30: Group A Strep Rapid Negative 03/11/20 11:01: Specimen Source Right radial, O2 % Room air, ABG pH 7.45, ABG pCO2 40.0, ABG pO2 67.8 L, ABG HCO3 27.1 H, ABG Total CO2 28.3 H, ABG O2 Saturation 94, ABG Base Excess 3.1 H, Errol Test Acceptable Result diagrams: 03/11/20 10:25 03/11/20 10:25 Orders (Tests/Meds): ED MEDICATIONS Generic Name Dose Route Start Last Admin Trade Name Freq PRN Reason Stop Dose Admin Sodium Chloride 500 mls @ 500 mls/hr 03/11/20 11:00 Sod Chlor 0.9% 500ml Bag IV 04/10/20 10:59 .Q1H CLARISA Ceftriaxone Sodium 1 gm/ 50 mls @ 100 mls/hr 03/11/20 11:30 03/11/20 11:21 Sodium Chloride IV 03/25/20 11:29 100 mls/hr Q24H CLARISA Administration Protocol Discontinued Medications Generic Name Dose Route Start Last Admin Trade Name Freq PRN Reason Stop Dose Admin Azithromycin 500 mg 03/11/20 11:17 Zithromax 250mg Tablet PO 03/11/20 11:18 ONCE ONE Protocol Jose
[2020-03-11 10:52] LABS: Basophils # 0.1 K/mm3 (0-0.2); Basophils % 0.2 % (0.1-2.0); Eosinophils # 0.2 K/mm3 (0.0-0.4); Eosinophils % 0.7 % (0.1-12.0); Hematocrit 39.1 % (37.0-47.0); Hemoglobin 13.1 g/dL (12.2-16.2); Lymphocytes # 2.4 K/mm3 (0.7-4.5); Lymphocytes % 9.7 % (10-50); Mean Corpuscular HGB Conc 33.5 g/dL (31.8-35.4); Mean Corpuscular Hemoglobin 27.9 pg (27.0-31.2); Mean Corpuscular Volume 83.4 fl (81-99); Mean Platelet Volume 7.8 fl (7.4-10.4); Monocytes # 1.9 K/mm3 (0.1-1.0); Monocytes % 7.7 % (1.7-9.3); Neutrophils # 19.9 K/mm3 (1.8-7.8); Neutrophils % 81.7 % (37.0-80.0); Platelet Count 243 K/mm3 (142-424); RBC,Urine 50-100 #/hpf (0-3); Red Blood Count 4.69 M/mm3 (4.20-5.40); Red Cell Distribution Width 14.8 % (11.5-17.5); WBC,Urine Occasional #/hpf (0-3); White Blood Count 24.3 K/mm3 (4.8-10.8)
[2020-03-11 10:53] LABS: Chloride 98 mmol/L (98-107); Potassium 4.1 mmoL/L (3.5-5.1); Sodium 136 mmol/L (136-145)
[2020-03-11 10:54] LABS: MANUAL DIFFERENTIAL MANUAL DIFFERENTIAL (MANUAL DIFF)
[2020-03-11 10:55] LABS: Alanine Aminotransferase 31 U/L (12-78); Aspartate Amino Transferase 32 U/L (14-36); Blood Urea Nitrogen 12 mg/dl (7-17); Creatinine Clearance Estimated 91 mL/min (50-200); Estimated Glomerular Filt Rate 71 ml/min (>60); GFR (African American) 86 ML/MIN (>60); Lactic Acid 1.5 mmol/L (0.7-2.1)
[2020-03-11 10:56] LABS: Albumin Level 3.7 g/dl (3.5-5.0); Alkaline Phosphatase 107 U/L (38-126); Anion Gap 12.1 mEq/L (5-15); Bilirubin,Total 0.6 mg/dl (0.2-1.3); Calcium 8.5 mg/dl (8.4-10.2); Carbon Dioxide 30 mmol/L (22.0-30.0); Globulin 3.8 g/dL (1.3-3.2); Glucose 118 mg/dl (74-100); Total Protein,Serum 7.5 g/dl (6.3-8.2)
[2020-03-11 10:58] LABS: Strep Scrn Group A (Rapid) Negative (Negative)
[2020-03-11 11:05] LABS: Eosinophils % 3 % (0-3); Lymphocytes % 15 % (10-50); Monocytes % 9 % (2-9); Neutrophils % 71 % (42-76); Platelet Estimate Normal; RBC Morphology Normal; Total Cells Counted 100
[2020-03-11 11:15] LABS: Erythrocyte Sedimentation Rate 22 mm/hr (0-20)
[2020-03-11 11:23] LABS: ABG Base Excess 3.1 mmol/L (-2.4-2.3); ABG HCO3 27.1 mmhg (22.0-26.0); ABG Oxygen Saturation 94 % (90-100); ABG PH 7.45 mmol/L (7.35-7.45); ABG PO2 67.8 mmhg (80-100); ABG TCO2 28.3 mmhg (23-27)
[2020-03-11 11:24] LABS: Allen's Test Acceptable
[2020-03-11 11:25] LABS: Source Right Radial
[2020-03-13 06:22] LABS: Covid-19 Nasal PCR Sendout UK NOT DETECTED
== END 2020-03-11 13:04 | disposition home or self-care (01) ==
PROVIDERS: Emergency Provider Emergency Medicine; PCP Internal Medicine Adolescent Medicine
DX: J18.9 Pneumonia, unspecified organism (principal); I48.20 Chronic atrial fibrillation, unspecified; K21.9 Gastro-esophageal reflux disease without esophagitis; E78.5 Hyperlipidemia, unspecified; I10 Essential (primary) hypertension; Z86.718 Personal history of other venous thrombosis and embolism; F41.9 Anxiety disorder, unspecified; M81.0 Age-related osteoporosis without current pathological fracture; M79.7 Fibromyalgia; Z87.891 Personal history of nicotine dependence; Z79.899 Other long term (current) drug therapy; Z03.818 Encounter for observation for suspected exposure to other biological agents ruled out
CPT/HCPCS: 71045; 80053; 81001; 82803; 83605; 85007; 85025; 85651; 87040; 87430; 96365; 96375; 99284; J2405; U0003

== ENCOUNTER → 2020-05-01 14:32 | Outpatient (CLI) | payer OTHER, SELFPAY ==
--- NOTE | 2020-05-01 14:48 | XR_ITS ---
PROCEDURE: XR LUMBAR SPINE MIN 4V CLINICAL INDICATION: LOW BACK PAIN ASSOCIATED W/ A SPINAL DISORDER COMPARISON: CR [id number] XR lumbar spine min 4V from 04/16/2018 FINDINGS: There is normal alignment. No acute fracture or dislocation is evident. There is degenerative disc disease at L5-S1 slightly worse than when compared to the previous exam. There is mild wedging of T11 probably unchanged. Other findings:None. IMPRESSION: Degenerative disc disease L5-S1 slightly worse Dictated by: Errol Allen MD 05/01/2020 17:48 Errol Allen MD in [place] 05/01/2020 17:48
--- NOTE | 2020-05-01 14:50 | US_ITS ---
PROCEDURE: US EXTREMITY LT LIMITED CLINICAL INDICATION: SUBCUTANEOUS NODULE OF L UPPER EXTREMITY, SKIN LESION COMPARISON: No exams were available for comparison FINDINGS: There is a well-circumscribed oval area of slight decreased echogenicity in the subcutaneous tissues in the left lower arm measuring 2 x 0.9 cm. An additional area is noted with similar echogenicity measuring 2 by 1.6 x 1 cm. A 3rd area in the lower arm measures 2 by 2 cm. These areas are of I so echogenicity in fairly well-circumscribed consistent with lipomas. IMPRESSION: At least 3 lipomas of the forearm Dictated by: Errol Allen MD 05/01/2020 19:11 Errol Allen MD in [place] 05/01/2020 19:11
== END ==
PROVIDERS: PCP Internal Medicine Adolescent Medicine; Visit Provider Internal Medicine Adolescent Medicine
DX: R22.32 Localized swelling, mass and lump, left upper limb (principal); M54.5 Low back pain
CPT/HCPCS: 72110; 76882

== ENCOUNTER → 2020-06-01 14:27 | Outpatient (CLI) | payer OTHER, SELFPAY ==
[2020-06-01 15:38] LABS: Basophils # 0.1 K/mm3 (0-0.2); Basophils % 0.6 % (0.1-2.0); Eosinophils # 0.2 K/mm3 (0.0-0.4); Eosinophils % 2.4 % (0.1-12.0); Hematocrit 44.8 % (37.0-47.0); Hemoglobin 13.8 g/dL (12.2-16.2); Lymphocytes # 2.7 K/mm3 (0.7-4.5); Lymphocytes % 31.2 % (10-50); Mean Corpuscular HGB Conc 30.9 g/dL (31.8-35.4); Mean Corpuscular Volume 87.6 fl (81-99); Mean Platelet Volume 7.6 fl (7.4-10.4); Monocytes # 0.5 K/mm3 (0.1-1.0); Monocytes % 5.6 % (1.7-9.3); Neutrophils # 5.2 K/mm3 (1.8-7.8); Neutrophils % 60.3 % (37.0-80.0); Platelet Count 311 K/mm3 (142-424); Red Blood Count 5.12 M/mm3 (4.20-5.40); Red Cell Distribution Width 14.5 % (11.5-17.5); White Blood Count 8.5 K/mm3 (4.8-10.8)
[2020-06-01 16:08] LABS: Chloride 103 mmol/L (98-107)
[2020-06-01 16:09] LABS: Erythrocyte Sedimentation Rate 12 mm/hr (0-20); Potassium 4.7 mmoL/L (3.5-5.1); Sodium 139 mmol/L (136-145)
[2020-06-01 16:11] LABS: Alanine Aminotransferase 57 U/L (12-78); Alkaline Phosphatase 114 U/L (38-126); Aspartate Amino Transferase 51 U/L (14-36); Bilirubin,Total 0.5 mg/dl (0.2-1.3); Blood Urea Nitrogen 18 mg/dl (7-17); Estimated Glomerular Filt Rate 71 ml/min (>60); GFR (African American) 86 ML/MIN (>60)
[2020-06-01 16:12] LABS: Albumin Level 4.4 g/dl (3.5-5.0); Albumin/Globulin Ratio 1.2 (1.1-1.8); Anion Gap 13.7 mEq/L (5-15); Calcium 9.4 mg/dl (8.4-10.2); Carbon Dioxide 27 mmol/L (22.0-30.0); Creatine Kinase 130 U/L (30-135); Globulin 3.7 g/dL (1.3-3.2); Glucose 80 mg/dl (74-100); Total Protein,Serum 8.1 g/dl (6.3-8.2)
[2020-06-01 16:17] LABS: C-Reactive Protein 10.2 mg/L (0-4)
[2020-06-03 11:21] LABS: Complement C3 169 mg/dL (82-167)
[2020-06-03 15:03] LABS: RA Latex Turbid. <10.0 IU/mL (0.0-13.9)
[2020-06-03 20:51] LABS: Hep A Ab, IgM Negative (Negative); Hepatitis B Core Antibody IgM Negative (Negative); Hepatitis B Surface Antigen Negative (Negative)
[2020-06-04 04:16] LABS: Hepatitis C Antibody <0.1 s/co ratio (0.0-0.9); Rapid Plasma Reagin Ab Titer Non Reactive (NonRea<1:1)
[2020-06-04 12:09] LABS: Angiotensin Converting Enzyme 34 U/L (14-82)
[2020-06-04 14:01] LABS: Antiscleroderma-70 Antibodies <0.2 AI (0.0-0.9); RNP Antibodies 0.5 AI (0.0-0.9)
[2020-06-04 16:11] LABS: Cytoplasmic (C-ANCA) <1:20 titer (Neg:<1:20)
[2020-06-05 07:57] LABS: Aldolase 5.4 U/L (3.3-10.3); Anti-DNA (DS) Ab Qn <1 IU/mL (0-9); Perinuclear (P-ANCA) <1:20 titer (Neg:<1:20)
[2020-06-05 19:18] LABS: Saccharomyces cerevisiae, IgA 69.6 Units (0.0-24.9); Saccharomyces cerevisiae, IgG 36.1 Units (0.0-24.9)
[2020-06-06 14:46] LABS: Antinuclear Antibodies, IFA Negative (.)
[2020-06-08 17:30] LABS: HLA-B27 Negative (.)
== END ==
PROVIDERS: Nurse Practitioner Family; Visit Provider Internal Medicine
DX: M25.50 Pain in unspecified joint (principal); K59.00 Constipation, unspecified; K30 Functional dyspepsia
CPT/HCPCS: 36415; 80053; 80074; 82085; 82164; 82550; 85025; 85651; 86038; 86140; 86161; 86225; 86235; 86256; 86431; 86592; 86671; 86812

== ENCOUNTER 2020-06-05 15:00 | Outpatient (RCR) | payer OTHER, SELFPAY ==
--- NOTE | 2020-05-10 15:42 | HMH.PTOPEV ---
PT Outpatient Evaluation Rehab PT Outpatient Evaluation Start: 05/10/20 14:52 Freq: Status: Active Protocol: Document 05/10/20 15:28 EVA (Rec: 05/10/20 15:42 EVA [id number]) Electronically Signed By Sherif Nguyễn, PT 05/10/20 15:28 Outpatient Therapy Subjective History Subjective History Patient is a 35 year old female presenting to outpatient PT with reports of chronic LBP of starting in 2016 after lumbar spine discectomy/laminectomy. Patient reports intermittent BLE radicular symptoms to B feet. Most recent imaging indicates L5/S1 DDD. Comorbidities include B foot/ ankle Sx, B knee Sx, Elhers- Danlos Syndrome, family hx of Marfans syndrome, heart murmur /tachycardia, hysterectomy and abdominal cancer. Chief Complaint Pain,Paresthesia Symptom Type Sharp,Numbness,Tingling, Shooting Symptoms Relieved By Rest/Positioning Symptoms Aggravated By Standing,Bending/Stooping, Physical Activity,Walking, Lifting Prior Functional Limitations None Current Functional Limitations Lifting,Housework,Sleeping, Standing,Squatting,Recreation Activity,Walking,Stairs, Balance,Bending/Stooping Symptom Description Constant but Variable Level of pain today (0-10) 5 Pain scale - at its best (0-10) 2 Pain scale - at its worst (0-10) 8 Lumbopelvic Eval Posture Thoracic Spine Posture Standing Position Increased Kyphosis Lumbar Spine Posture Standing Position Increased Lordosis Assistive device Assistive Devices None / NA Palapation tenderness bilateral lumbar spinal tenderness Yes: L4-S1 4/4 paraspinal tenderness Yes: buttock tenderness Yes: Lumbar/Sacral Palpation Findings Tenderness Accessory Movement L4 bilateral L5 bilateral S1 bilateral Range of Motion Lumbar Spine Active Flexion Range of 52 Motion (degrees) Lumbar Spine Active Extension Range of 12 Motion (degrees) Left Lumbar Spine Lateral Flexion Active 20 Range of Motion (degrees) Right Lumbar Spine Lateral Flexion 18 Active Range of Motion (degrees) Lumbar Spine ROM Limitations
== END 2020-06-05 15:05 | disposition home or self-care (01) ==
LOC: PT 15:00
PROVIDERS: Visit Provider Internal Medicine Adolescent Medicine
DX: M54.5 Low back pain (principal)
CPT/HCPCS: 97010; 97014; 97035; 97110; 97163; G0283

== ENCOUNTER → 2020-06-05 15:45 | Outpatient (CLI) | payer OTHER, SELFPAY ==
[2020-06-09 08:16] LABS: QuantiFERON-TB Gold Plus Negative (Negative)
== END ==
PROVIDERS: Visit Provider Internal Medicine
DX: M25.50 Pain in unspecified joint (principal)
CPT/HCPCS: 36415; 86480

== ENCOUNTER → 2020-06-27 15:03 | Outpatient (CLI) | payer OTHER, SELFPAY ==
[2020-06-27 17:10] LABS: Coronavirus 19 IgG Antibody Negative (Negative); Coronavirus 19 IgM Antibody Negative (Negative)
== END ==
PROVIDERS: Visit Provider Internal Medicine Gastroenterology
DX: Z01.818 Encounter for other preprocedural examination (principal); Z12.11 Encounter for screening for malignant neoplasm of colon
CPT/HCPCS: 36415; 86328

== ENCOUNTER 2020-06-29 09:52 | Day surgery (SDC) | payer OTHER, SELFPAY ==
[2020-06-21 15:24] VITALS: BMI 42.8
[2020-06-29] VITALS (7 sets, daily range): BP systolic 124–174; BP diastolic 76–98; PULSE 51–95; RESP 16–18; TEMP 36.1–36.3; O2SAT 96–100
--- NOTE | 2020-06-29 11:03 | P.PN_ITS ---
[facility] Anesthesia Checklist - Patient Identification Patient Identification: Arm Band - Structural Data Admitted From: Home Planned Operative Procedure/s: colonoscopy Consent for Planned Operative Procedure(s) Verified: Yes Verified Documents: Surgical Consent, History and Physical - NPO Status Verified Time NPO: 00:00 - Additional verifications Anesthesia Reactions: Yes (awareness during Hyster) Hx Blood Transfusions: Yes Blood Transfusion Reaction: Yes (anemia from transfusion ) - Airway Assessment C-Spine Mobility Assessed: Yes (mp2) TMJ Mobility Assessed: Yes Dentition: Good Dentition - Neurological Assessment Level of Consciousness: Awake, Alert - Anesthesia Plan Anesthesia Risk discussed: Yes Anesthesia Plan: Verified ASA Class: III Anesthesia Type: MAC [facility] History I have reviewed the patient's past medical history: Yes Medical History: Reports:: Anxiety, Arrhythmia, Asthma, Atrial Fibrillation, Cancer, Deep Vein Thrombosis (2016), Gastroesophageal Reflux Disease(GERD), Heart Murmur, Hyperlipidemia, Hypertension, Migraine, Osteoporosis, Pulmonary Embolism, Supraventricular Tachycardia, Ulcer Denies:: Diabetes Mellitus Type 1, Diabetes Mellitus Type 2, Internal Pacemaker, MRSA, Seizures *Have you ever received a pneumonia vaccine?: No *Have you received a flu vaccine this season?: No Other Medical History: Reports: Anemia, Arthritis, Blood Transfusion Reaction (anemia from transfusion ), Chemotherapy, Fibromyalgia, Hormone Therapy, Hypothyroidism, Liver Disease (being evaluated ), Osteoporosis Anesthesia experience/problems:: nac Laterality Cases: Left: Lumpectomy, Bilateral: Arthroscopy Knee Other Surgeries: Yes: BSO, EGD, Hysterectomy-Total, Skin Cancer Excision, Other. No: Pacemaker Amputation: No Fractures: Yes - *Social History Last grade of school completed: Advanced degree Smoking Status: Former smoker Tobacco Type: cigarettes # Packs/Day (cigarettes): 4 Alcohol Intake: never Alcohol Intake Frequency:: other Substance Use Type: marijuana *Occupational Status:: other Housing: other Household Members: other *Travel in the last 8 weeks: None - Psychiatric History Pschychiatric History:: Reports:: Anxiety Family Hx:: Cancer, Hypertension, Kidney Disease, Alcoholism, Mental illness
--- NOTE | 2020-06-29 11:13 | P.PCN_ITS ---
[facility] Procedure Note Procedure Note:: Attempted colonoscopy Procedure Report: Aborted colonoscopy (unprepped) Endoscopist: Juan Pablo Maddox II, MD Referring physician: Jayden Marcum MD Date of Procedure: June 29, 2020 Equipment: Olympus 180 variable stiffness pediatric colonoscope Sedation: MAC sedation Indication: Ms. Macias is a 35-year-old female with chronic IBS constipation with bloating and bowel irregularity. She continues to have abdominal pain. She has noted some improvement with Motegrity but continues to have symptoms. The patient does report some stress and anxiety. She does state that her mother had ulcerative colitis. Her great grandfather had gastric cancer. She continues to have generalized abdominal pain and discomfort and bowel irregularity. Procedure: Prior to the procedure, a history and physical exam was performed, and patient's medications and allergies were reviewed. The risks, benefits and alternatives of the sedation and procedure were discussed with the patient. All questions were answered and informed consent was obtained. The patient was brought to the procedure room. Patient identification and proposed procedure were verified by the physician and the nurse. The patient was placed in a left lateral decubitus position and the scope was passed under direct vision. Throughout the pr ocedure, the patient's blood pressure, pulse, and oxygen saturations were monitored continuously. The colonoscopy was accomplished without difficulty. The patient tolerated the procedure well. Findings: On digital rectal examination there was normal rectal tone. There were no external hemorrhoids. There were small external hemorrhoidal tags. The scope was then inserted through the anal canal to the rectum and advanced to the splenic flexure/descending colon. There was a marked amount of liquid yellow loose and semisolid stool making visualization very poor. The procedure was then aborted. Impression: 1. Unprepped colonoscopy Plan: I will recommend improved bowel preparation before next attempted colonoscopy. The patient has had longstanding symptoms and her functional intestinal disorder has been refractory to most treatments.
== END 2020-06-29 12:20 | disposition home or self-care (01) ==
LOC: OUTP 09:53
PROVIDERS: PCP Internal Medicine Adolescent Medicine; Visit Provider Internal Medicine Gastroenterology
PROC: 0DJD8ZZ Inspection of Lower Intestinal Tract, Via Natural or Artificial Opening Endoscopic (ICD-10-PCS; CPT 45378; principal; 2020-06-29 11:00)
DX: K58.1 Irritable bowel syndrome with constipation (principal); K64.0 First degree hemorrhoids
CPT/HCPCS: 45378

== ENCOUNTER → 2020-07-27 15:44 | Outpatient (CLI) | payer OTHER, SELFPAY ==
[2020-07-27 17:44] LABS: Coronavirus 19 IgG Antibody Negative (Negative); Coronavirus 19 IgM Antibody Negative (Negative)
[2020-07-27 19:14] LABS: Urine Pregnancy, HCG Qual. Negative (Negative)
== END ==
PROVIDERS: Visit Provider Internal Medicine Gastroenterology
DX: Z01.818 Encounter for other preprocedural examination (principal); Z12.11 Encounter for screening for malignant neoplasm of colon; K59.00 Constipation, unspecified
CPT/HCPCS: 36415; 81025; 86328

== ENCOUNTER 2020-07-30 10:13 | Day surgery (SDC) | payer OTHER, SELFPAY ==
[2020-07-26 14:27] VITALS: BMI 44.3
[2020-07-30 10:52] VITALS: BP 143/102; PULSE 78; RESP 18; TEMP 36.6; O2SAT 98
[2020-07-30 11:13] VITALS: O2SAT 96
--- NOTE | 2020-07-30 11:26 | HMH.ANESCL ---
[facility] Anesthesia Checklist - Patient Identification Patient Identification: Arm Band, Verbal (Name & ) - Structural Data Admitted From: Home Planned Operative Procedure/s: Colonoscopy Consent for Planned Operative Procedure(s) Verified: Yes Verified Documents: Surgical Consent, History and Physical - NPO Status Verified Time NPO: 00:00 - Chart Verification Results Verified: CBC, BMP - Additional verifications Patient : No Anesthesia Reactions: Yes (awareness during Hyster) Hx Blood Transfusions: Yes Blood Transfusion Reaction: Yes (anemia from transfusion ) - Airway Assessment C-Spine Mobility Assessed: Yes TMJ Mobility Assessed: Yes Dentition: Good Dentition - Neurological Assessment Level of Consciousness: Awake, Alert, Appropriate, Follows Commands Hx Seizures: No Numbness or tingling in extremities: No - Anesthesia Plan Anesthesia Risk discussed: Yes Anesthesia Plan: Verified ASA Class: III Anesthesia Type: MAC [facility] History I have reviewed the patient's past medical history: Yes Medical History: Reports:: Anxiety, Arrhythmia, Asthma, Atrial Fibrillation, Cancer, Deep Vein Thrombosis (2016), Gastroesophageal Reflux Disease(GERD), Heart Murmur, Hyperlipidemia, Hypertension, Migraine, Osteoporosis, Pulmonary Embolism, Supraventricular Tachycardia, Ulcer Denies:: Diabetes Mellitus Type 1, Diabetes Mellitus Type 2, Internal Pacemaker, MRSA, Seizures *Have you ever received a pneumonia vaccine?: No *Have you received a flu vaccine this season?: No Other Medical History: Reports: Anemia, Arthritis, Blood Transfusion Reaction (anemia from transfusion ), Chemotherapy, Fibromyalgia, Hormone Therapy, Hypothyroidism, Osteoporosis Anesthesia experience/problems:: Awareness Laterality Cases: Left: Lumpectomy, Bilateral: Arthroscopy Knee Other Surgeries: Yes: BSO, EGD, Hysterectomy-Total, Skin Cancer Excision, Other. No: Pacemaker Amputation: No Fractures: Yes - *Social History Last grade of school completed: Advanced degree Smoking Status: Former smoker Tobacco Type: cigarettes # Packs/Day (cigarettes): 4 #Yrs smoked (if former smoker): 12 Smoking End Date: 2014 Alcohol Intake: never Alcohol Intake Frequency:: other Substance Use Type: marijuana Last Used Substance: unknown *Occupational Status:: other Housing: other Household Members: other *Travel in the last 8 weeks: None - Psychiatric History Pschychiatric History:: Reports:: Anxiety Family Hx:: Cancer, Hypertension, Kidney Disease, Alcoholism, Mental illness
--- NOTE | 2020-07-30 11:39 | P.PCN_ITS ---
[facility] Procedure Note Procedure Note:: Colonoscopy Procedure Report: Colonoscopy Endoscopist: Juan Pablo Maddox II, MD Referring physician: Luciano Falk M.D./Jayden Marcum M.D. Date of Procedure: July 30, 2020 Equipment: Olympus 180 variable stiffness pediatric colonoscope Sedation: MAC sedation Indication: Ms. Macias is a 35-year-old female with IBS constipation, bloating and bowel irregularity. The patient did have a double positive ASCA IgG and IgA antibody but negative p-ANCA. Her hemoglobin 13.8 and hematocrit 44.8 were normal. She had a slightly elevated C-reactive protein of 10.2. She had some improvement with Motegrity. Her mother had ulcerative colitis. She does report generalized abdominal pain and discomfort. She had attempted colonoscopy on June 29, 2020 but this was unprepped. She reports no rectal bleeding or weight loss. Procedure: Prior to the procedure, a history and physical exam was performed, and patient's medications and allergies were reviewed. The risks, benefits and alternatives of the sedation and procedure were discussed with the patient. All questions were answered and informed consent was obtained. The patient was brought to the procedure room. Patient identification and proposed procedure were verified by the physician and the nurse. The patient was placed in a left lateral decubitus position and the scope was passed under direct vision. Throughout the procedure, the patient's blood pressure, pulse, and oxygen saturations were monitored continuously. The colonoscopy was accomplished without difficulty. The patient tolerated the procedure well. Findings: On digital rectal examination there was normal rectal tone. There were no external hemorrhoids. The colonoscope was introduced through the anal canal to the rectum and advanced to the cecum. The ileocecal valve and appendiceal orifice were identified. The scope was advanced a short distance into the ileum which appeared grossly normal. The scope was then withdrawn into the colon. The cecum, ascending, transverse, descending, sigmoid and rectum were grossly normal. There were no mucosal abnormalities identified. Upon retroflexion within the rectum there were grade 1-2 internal hemorrhoids.The preparation was good throughout with [place] Preparation Score of 7 out of 9. The cecal time was 11 minutes. Impression: 1. Normal colonoscopy with intubation of the terminal ileum 2. Grade 1-2 internal hemorrhoids Plan: There was no evidence of Crohn's disease or colitis. I would continue Motegrity and fiber bowel regimen. We will discuss dietary measures to follow. I would consider adding treatment for visceral sensitivity. I will discuss the findings with the patient and family.
[2020-07-30 11:40] VITALS: BP 96/56; PULSE 75; RESP 16; TEMP 36.3; O2SAT 96
[2020-07-30 11:50] VITALS: BP 109/68; PULSE 78; RESP 16; O2SAT 97
[2020-07-30 12:00] VITALS: BP 103/70; PULSE 77; RESP 16; O2SAT 97
[2020-07-30 12:10] VITALS: BP 112/71; PULSE 75; RESP 16; TEMP 36.3; O2SAT 98
== END 2020-07-30 12:36 | disposition home or self-care (01) ==
LOC: OUTP 10:14
PROVIDERS: PCP Internal Medicine Adolescent Medicine; Visit Provider Internal Medicine Gastroenterology
PROC: 0DJD8ZZ Inspection of Lower Intestinal Tract, Via Natural or Artificial Opening Endoscopic (ICD-10-PCS; CPT 45378; principal; 2020-07-30 11:30)
DX: K58.1 Irritable bowel syndrome with constipation (principal); K64.0 First degree hemorrhoids; R79.89 Other specified abnormal findings of blood chemistry; I10 Essential (primary) hypertension; G47.33 Obstructive sleep apnea (adult) (pediatric); F41.9 Anxiety disorder, unspecified; K21.9 Gastro-esophageal reflux disease without esophagitis; Z86.718 Personal history of other venous thrombosis and embolism; Z86.711 Personal history of pulmonary embolism
CPT/HCPCS: 45378

== ENCOUNTER → 2020-07-30 12:55 | Outpatient (CLI) | payer OTHER, SELFPAY ==
[2020-07-30 13:45] LABS: Basophils % 0.4 % (0.1-2.0); Eosinophils # 0.1 K/mm3 (0.0-0.4); Eosinophils % 1.6 % (0.1-12.0); Hematocrit 44.7 % (37.0-47.0); Hemoglobin 14.4 g/dL (12.2-16.2); Lymphocytes # 2.3 K/mm3 (0.7-4.5); Lymphocytes % 27.5 % (10-50); Mean Corpuscular HGB Conc 32.1 g/dL (31.8-35.4); Mean Corpuscular Hemoglobin 27.1 pg (27.0-31.2); Mean Corpuscular Volume 84.3 fl (81-99); Mean Platelet Volume 7.9 fl (7.4-10.4); Monocytes # 0.5 K/mm3 (0.1-1.0); Monocytes % 6.1 % (1.7-9.3); Neutrophils # 5.3 K/mm3 (1.8-7.8); Neutrophils % 64.5 % (37.0-80.0); Platelet Count 279 K/mm3 (142-424); Red Cell Distribution Width 14.6 % (11.5-17.5); White Blood Count 8.2 K/mm3 (4.8-10.8)
[2020-07-30 14:17] LABS: Hemoglobin A1C 5.2 % (4.0-6.0)
[2020-07-30 15:08] LABS: Alanine Aminotransferase 27 U/L (12-78); Albumin Level 4.8 g/dl (3.5-5.0); Albumin/Globulin Ratio 1.3 (1.1-1.8); Alkaline Phosphatase 130 U/L (38-126); Anion Gap 14.3 mEq/L (5-15); Aspartate Amino Transferase 32 U/L (14-36); Bilirubin,Total 0.6 mg/dl (0.2-1.3); Blood Urea Nitrogen 9 mg/dl (7-17); Calcium 9.8 mg/dl (8.4-10.2); Carbon Dioxide 24 mmol/L (22.0-30.0); Chloride 104 mmol/L (98-107); Chol/HDL Ratio 2.8 (1-3.5); Cholesterol 245 mg/dl (140-200); Estimated Glomerular Filt Rate 71 ml/min (>60); GFR (African American) 86 ML/MIN (>60); Globulin 3.8 g/dL (1.3-3.2); Glucose 85 mg/dl (74-100); HDL Cholesterol 86 mg/dl (40-60); Iron 124 ug/dL (37-170); Phosphorous 3.5 mg/dl (2.5-4.5); Potassium 4.3 mmoL/L (3.5-5.1); Sodium 138 mmol/L (136-145); Total Protein,Serum 8.6 g/dl (6.3-8.2); Triglycerides 69 mg/dl (30-150); VLDL Cholesterol 14 mg/dL (0-40)
[2020-07-30 15:22] LABS: Direct LDL Cholesterol 119.21 mg/dL (100-129)
[2020-07-30 15:23] LABS: Intact Parathyroid Hormone 47.8 pg/mL (7.5-53.5)
[2020-07-30 15:29] LABS: 25-OH Vitamin D, Total 43.3 ng/mL (30-100)
[2020-07-30 15:41] LABS: Thyroid Stimulating Hormone 0.74 uIU/mL (0.465-4.68)
[2020-08-02 02:28] LABS: Prealbumin 19 mg/dL (14-35)
[2020-08-04 20:53] LABS: Vitamin A 33.2 ug/dL (18.9-57.3)
[2020-08-05 15:19] LABS: Vitamin E Alpha Tocopherol 9.6 mg/L (5.9-19.4)
[2020-08-05 15:46] LABS: Vitamin B1 141.5 nmol/L (66.5-200.0); Vitamin E Gamma Tocopherol 2.2 mg/L (0.7-4.9)
[2020-08-07 05:08] LABS: Methylmalonic Acid 126 nmol/L (0-378)
== END ==
PROVIDERS: Visit Provider Physician Assistant
DX: E78.5 Hyperlipidemia, unspecified (principal); E66.01 Morbid (severe) obesity due to excess calories; D50.9 Iron deficiency anemia, unspecified; E55.9 Vitamin D deficiency, unspecified
CPT/HCPCS: 36415; 80053; 80061; 82131; 82306; 82728; 82746; 83036; 83540; 83735; 83970; 84100; 84134; 84425; 84443; 84446; 84590; 85025

== ENCOUNTER → 2020-08-02 15:17 | Outpatient (CLI) | payer OTHER, SELFPAY ==
--- NOTE | 2020-08-02 15:20 | XR_ITS ---
PROCEDURE: XR FOOT WT BEARING RT 3V CLINICAL INDICATION: pain COMPARISON: CR [id number] XR foot wt bearing LT 3V from 06/22/2018 CR XR FOOT WT BEARING LT 3V from 06/21/2019 CR XR FOOT WT BEARING RT 3V from 09/07/2019 CR XR FOOT WT BEARING LT 3V from 09/07/2019 CR XR ANKLE WT BEARING LT MIN 3V from 08/02/2020 CR XR ANKLE WT BEARING RT MIN 3V from 08/02/2020 FINDINGS: No fracture or dislocation. No lytic or blastic change. There is normal mineralization. The joint spaces are well-preserved. No significant degenerative/arthritic changes. No erosive changes evident. Other findings:Mildly prominent calcaneal spur with pes planus Unremarkable appearing ankle IMPRESSION: Pes planus with mildly prominent calcaneal spur Dictated by: Errol Allen MD 08/02/2020 16:35 Errol Allen MD in [place] 08/02/2020 16:35
--- NOTE | 2020-08-02 15:20 | XR_ITS ---
PROCEDURE: XR ANKLE WT BEARING LT MIN 3V CLINICAL INDICATION: pain COMPARISON: CR ANKR3 ANKLE-RT-3 VIEWS from 04/07/2014 CR [id number] XR ankle wt bearing RT min 3V from 06/22/2018 CR [id number] XR ankle wt bearing LT min 3V from 06/22/2018 FINDINGS: There is some sclerosis of the tibial plafond and the talar dome. No fracture or dislocation. No lytic or blastic change. Status post talocalcaneal, calcaneocuboid, and talonavicular fusion with good alignment.. IMPRESSION: Mild sclerosis at the ankle joint nonspecific. Prior triple arthrodesis. Dictated by: Errol Allen MD 08/02/2020 16:34 Errol Allen MD in [place] 08/02/2020 16:34
== END ==
PROVIDERS: PCP Internal Medicine Adolescent Medicine; Visit Provider Podiatrist
DX: M19.072 Primary osteoarthritis, left ankle and foot (principal); M65.9 Synovitis and tenosynovitis, unspecified; M76.822 Posterior tibial tendinitis, left leg; Q66.221 Congenital metatarsus adductus, right foot; Q66.222 Congenital metatarsus adductus, left foot
CPT/HCPCS: 73610; 73630

== ENCOUNTER → 2020-08-06 14:54 | Outpatient (CLI) | payer OTHER, SELFPAY ==
--- NOTE | 2020-08-06 14:57 | MM_ITS ---
PROCEDURE: MM DIG SCREENING MAMM BI W/CAD Digital Breast Tomosynthesis Included CLINICAL INDICATION: SCREENING Breast cancer in the patient's mother diagnosed at age 27 and in the patient's maternal grandmother diagnosed after menopause and maternal aunt diagnosed before menopause there has been a previous biopsy left breast benign disease COMPARISON: MG MAMMOGRAM, ANNUAL SCREENING ([facility] ONLY) PG from 04/03/2017 MG SCBI MM Dig screening mamm BI w/CAD from 07/16/2018 MG MM DIG SCREENING MAMM BI W/CAD from 08/03/2019 TECHNIQUE: Standard CC and MLO images and 3D Tomosynthesis was obtained. R2 CAD reviewed. FINDINGS: The breasts are composed primarily of fat with scattered fibroglandular densities throughout each breast. There is a subtle diffuse area of increased density upper inner quadrant right breast apparently secondary to bruise from an IV. There is a biopsy clip outer quadrant left breast. There is a stable tiny nodular density near the axillary tail left breast. There is no suspicious lesion and no suspicious microcalcifications. IMPRESSION: Fatty type breast parenchyma with no suspicious lesions seen BI-RAD Category: 2 Benign Finding(s) FOLLOW-UP: 1YR 1 Year Follow-up (A letter has been sent to the patient regarding results of the study.) Dictated by: Dr. Franky Rome MD 08/08/2020 13:09 Dr. Franky Rome MD in [place] 08/08/2020 13:09
== END ==
PROVIDERS: PCP Internal Medicine Adolescent Medicine; Visit Provider Internal Medicine Adolescent Medicine
DX: Z12.31 Encounter for screening mammogram for malignant neoplasm of breast (principal)
CPT/HCPCS: 77063; 77067

== ENCOUNTER → 2020-08-07 14:10 | Outpatient (CLI) | payer OTHER, SELFPAY ==
--- NOTE | 2020-08-07 14:11 | CA_ITS ---
APPROVED REPORT EXAM: Comprehensive 2D, Doppler, and color-flow Echocardiogram It Service Technician: Mabel Nunez RVT Ht: 5 ft 9 in Wt: 300lbs BSA: 2.45 BP: 132/72 mmHg Indications: PRE-OP,BIGG DANLOS SYNDROME,A-FIB,MURMUR,HTN,HLD,OBESITY,ASTHMA,SVT,GERD 2D Dimensions LVOT 2.35 cm (M/F) 1.5-2.5 M-Mode Dimensions RVDd 2.78 cm (0.9-2.6) LA Diam 4.17 cm (1.9-4.0) LVDd 4.56 cm (3.5-5.7) Ao Diam 2.81 cm (2.0-3.7) LVDs 2.88 cm (3.5-5.7) IVSd 0.87 cm (0.6-1.1) PWd 0.77 cm (0.6-1.1) EF (Teich) 66.80% FS 36.80% EDV (Teich) 95.40 mL ESV (Teich) 31.70 mL LV Diastology E Decel Time 170.00 (160-240 msec) E/A Ratio 1.5 MED E' 9.10 (< 7 cm/sec) E'/MED E' Ratio 8.48 (>14) LAT E' 13.00 (<10 cm/sec) E/LAT E' Ratio 5.94 (>14) Mitral Valve MV E Max Cristian. 77.00 (40-130 cm/s) MV A Velocity 52.00 (40-130 cm/s) E/A Ratio 1.49 MV Decel. Time 170.00 (160-240 ms) MV PHT 50.00 ms Pulmonary Valve PV Peak Velocity 85.00 (50-150 cm/s) Tricuspid Valve TR P. Velocity 301.00 cm/s RAP Estimate 10.00 mmHg RVSP 46.20 mmHg Left Ventricle Left atrium is normal size, left ventricle is normal size, there is no concentric left ventricular hypertrophy, visually estimated ejection fraction 55% with no regional wall motion abnormality, diastolic parameters are within normal range. Right Ventricle Right atrium and right ventricle are normal size and contractility. Aortic Valve Aortic valve is grossly normal. There is no aortic stenosis or aortic insufficiency. Mitral Valve Mitral valve is grossly normal, there is trace mitral regurgitation. Tricuspid Valve Tricuspid valve is grossly normal, there is trace tricuspid regurgitation, tricuspid regurgitation jet velocity is inadequate for calculation of the right ventricular systolic pressure. Pulmonic Valve Pulmonic valve is poorly visualized. Great Vessels Aortic root is normal size. Pericardium No significant pericardial effusion noted. Conclusion 1. Normal left ventricular size, preserved left ventricular systolic function, visually estimated ejection fraction 55% with no regional wall motion abnormality, diastolic parameters are within normal range. 2. Trace mitral and tricuspid regurgitation. 3. No significant pericardial effusion noted. Electronically signed by : Derek Crespo, 08/08/2020 06:16:39
== END ==
PROVIDERS: PCP Internal Medicine Adolescent Medicine; Visit Provider Physician Assistant
DX: Z01.818 Encounter for other preprocedural examination (principal); R07.89 Other chest pain; R06.09 Other forms of dyspnea; I10 Essential (primary) hypertension; I48.0 Paroxysmal atrial fibrillation; K21.9 Gastro-esophageal reflux disease without esophagitis; M19.071 Primary osteoarthritis, right ankle and foot; M19.072 Primary osteoarthritis, left ankle and foot; M76.61 Achilles tendinitis, right leg; Q79.60 Ehlers-Danlos syndrome, unspecified; E66.01 Morbid (severe) obesity due to excess calories; Z68.41 Body mass index [BMI] 40.0-44.9, adult; Z98.890 Other specified postprocedural states
CPT/HCPCS: 93306

== ENCOUNTER 2020-08-07 14:54 | Emergency (ER) | payer OTHER, SELFPAY ==
[2020-08-07 15:26] VITALS: BMI 34.9
[2020-08-07 15:35] VITALS: BP 126/80; PULSE 75; RESP 20; TEMP 36.8; O2SAT 96; BMI 34.8
[2020-08-07 15:43] VITALS: BP 126/80; PULSE 75; RESP 20; TEMP 36.8; O2SAT 96
== END 2020-08-07 15:45 | disposition home or self-care (01) ==
LOC: UTC 14:55
PROVIDERS: Emergency Provider Nurse Practitioner; PCP Internal Medicine Adolescent Medicine
DX: Z23 Encounter for immunization (principal)
CPT/HCPCS: 90686; G0008

== ENCOUNTER → 2020-08-14 08:36 | Outpatient (CLI) | payer OTHER, SELFPAY ==
--- NOTE | 2020-08-14 08:36 | MR_ITS ---
PROCEDURE: MR ANKLE RT WO/W CON CLINICAL INDICATION: Achilles tendon pain, ankle pain COMPARISON: CR XR ANKLE WT BEARING RT MIN 3V from 08/02/2020 TECHNIQUE: Routine multiplanar multi echo sequences are performed without and with gadolinium enhancement. FINDINGS: No fracture. No bone marrow edema. There is a small cyst within the calcaneus just posterior to the sinus tarsi region. This measures approximately 5 mm. The tibiofibular ligaments have an unremarkable appearance. There is some slight increased T2 signal of the ATFL. The PT FL appears intact as does the deltoid ligament. The peroneal tendons, posterior tibialis, flexor digitorum longus and flexor hallucis longus tendons as well as the anterior extensor tendons appear intact. The Achilles tendon has an unremarkable appearance. Minimal amount of fluid signal intensity noted along the anterior aspect of the Achilles distally. Small amount fluid loculated appearing is present in the posterior talocalcaneal region consistent with bursitis. Small amount loculated fluid is also present along the anterior aspect of the talus at the talonavicular area laterally suggesting some bursitis. IMPRESSION: 1. No evidence of Achilles tendon tear. No evidence of tendinopathy or tendinosis. Minimal amount fluid is noted along the anterior aspect of the Achilles tendon distally just proximal to the calcaneal insertion. 2. Loculated fluid noted at the posterior talocalcaneal region and at the talonavicular area suggesting bursitis. 3. Slight increased T2 signal of the ATFL which could be due to prior sprain. Dictated by: Errol Allen MD 09/03/2020 11:23 Errol Allen MD in [place] 09/03/2020 11:23
== END ==
PROVIDERS: PCP Internal Medicine Adolescent Medicine; Visit Provider Podiatrist
DX: M76.61 Achilles tendinitis, right leg (principal)
CPT/HCPCS: 73723; A9576

== ENCOUNTER → 2021-02-06 14:39 | Outpatient (CLI) | payer OTHER, SELFPAY | PROVIDERS: Visit Provider Surgery | DX: Z01.812 Encounter for preprocedural laboratory examination (principal); Z11.52 Encounter for screening for COVID-19; D17.22 Benign lipomatous neoplasm of skin and subcutaneous tissue of left arm; D17.21 Benign lipomatous neoplasm of skin and subcutaneous tissue of right arm | CPT/HCPCS: U0003 ==

== ENCOUNTER 2021-02-08 06:16 | Day surgery (SDC) | payer OTHER, SELFPAY ==
[2021-02-07 10:00] VITALS: BMI 41.8
[2021-02-08] VITALS (10 sets, daily range): BP systolic 107–148; BP diastolic 68–92; PULSE 52–83; RESP 16–20; TEMP 36.1–36.4; O2SAT 93–100
--- NOTE | 2021-02-08 07:57 | HMH.ANESCL ---
[facility] Anesthesia Checklist - Patient Identification Patient Identification: Arm Band - Structural Data Admitted From: Home Planned Operative Procedure/s: Excision neoplasm/lesion bilateral arms lipoma removal Consent for Planned Operative Procedure(s) Verified: Yes - NPO Status Verified Time NPO: 00:00 - Additional verifications Anesthesia Reactions: Yes (awareness during Hyster) Hx Blood Transfusions: Yes Blood Transfusion Reaction: Yes (anemia from transfusion ) - Airway Assessment C-Spine Mobility Assessed: Yes TMJ Mobility Assessed: Yes Dentition: Good Dentition - Neurological Assessment Level of Consciousness: Awake Hx Seizures: No Numbness or tingling in extremities: Yes - Anesthesia Plan Anesthesia Risk discussed: Yes Anesthesia Plan: Verified ASA Class: III Anesthesia Type: Local & MAC [facility] History I have reviewed the patient's past medical history: Yes Medical History: Reports:: Anxiety, Arrhythmia (Stress test - next week. Natural Resource Specialist - Dr. Cleaning. last appointment 2 d.), Asthma, Cancer (skin cancer, endometrial cancer), Deep Vein Thrombosis, Gastroesophageal Reflux Disease(GERD), Heart Murmur, Hyperlipidemia, Hypertension, Migraine, Osteoporosis, Pulmonary Embolism, Supraventricular Tachycardia, Ulcer Denies:: Diabetes Mellitus Type 1, Diabetes Mellitus Type 2, Internal Pacemaker, MRSA, Seizures *Have you ever received a pneumonia vaccine?: Yes *Have you received a flu vaccine this season?: No Other Medical History: Reports: Anemia, Arthritis, Blood Transfusion Reaction (anemia from transfusion ), Chemotherapy, Fibromyalgia, Hormone Therapy, Hypothyroidism, Liver Disease (being evaluated ), Osteoporosis, Other (Ehler's Danlos) Anesthesia experience/problems:: Woke up during hysterectomy Laterality Cases: Left: Lumpectomy, Bilateral: Arthroscopy Knee Other Surgeries: Yes: BSO, EGD, Hysterectomy-Total, Skin Cancer Excision, Other. No: Pacemaker Amputation: No Fractures: Yes - *Social History Last grade of school completed: Advanced degree Smoking Status: Former smoker Tobacco Type: cigarettes # Packs/Day (cigarettes): 4 #Yrs smoked (if former smoker): 12 Smoking End Date: 5 years ago Alcohol Intake: former Alcohol Intake Frequency:: holidays/special occasions only Substance Use Type: marijuana Last Used Substance: days (ago) (2 days ago) *Occupational Status:: unemployed Housing: house Household Members: family *Travel in the last 8 weeks: None - Psychiatric History Pschychiatric History:: Reports:: Anxiety Family Hx:: Cancer, Kidney Disease
--- NOTE | 2021-02-08 10:31 | P.OP_ITS ---
Date of procedure: 02/08/21 Pre-op Diagnosis:: Bilateral upper extremity lipomas Post-op Diagnosis:: Same Procedure performed:: Excision of adjacent 2 cm lipomatous lesions from left upper extremity Excision of 1 cm distal left upper extremity lipoma Excision 1 cm right upper extremity lipoma Surgeon:: Gilberto Carrillo MD Sintering Plant Supervisor(s):: Carleen POWDER COAT PAINTER:: Moise Mejias Anesthesia: local, LMA Estimated blood loss (mL): 5 Operative findings:: Lipomatous lesions and subcutaneous tissue Operative note:: After informed consent was obtained the patient was taken to the operating room and placed in the supine position. General anesthesia with laryngeal mask airway was achieved. Her distal bilateral upper extremities were prepped and draped in a sterile fashion. After infiltration local anesthetic the 1 cm right upper extremity lipomatous lesion was excised sharply and passed off for patholo gic evaluation. Electrocautery was utilized to achieve hemostasis. Skin was reapproximated with 4-0 Monocryl in a subcuticular fashion. Adjacent 2 cm lipomatous lesions of the left upper extremity were excised in a similar manner. A 1 cm distal left upper extremity lipoma was also excised in a similar manner. Electrocautery was utilized to achieve hemostasis on these 3 separate incisions. Skin was reapproximated with 4-0 Monocryl in a subcuticular fashion. Dressings were applied and the patient was transferred to recovery in stable condition after removal of her laryngeal mask airway. Condition: stable Disposition: PACU Specimens:: Adjacent to centimeter left upper extremity lipomatous 1 cm distal left upper extremity lipoma 1 cm right upper extremity lipoma Complications:: No immediate
--- NOTE | 2021-02-08 10:43 | HMH.ANESI ---
[facility] Anesthesia Record Part I Intake, IV Amount: 900 Estimated blood loss (mL): 5 Urine output (mL): 0 Blood Pressure: 107/75 SaO2: 96 Pulse Rate: 79 Respiratory Rate: 16 Temperature: 97.4 F Patient is:: Drowsy, Stable Stable to PACU at:: 10:40
--- NOTE | 2021-02-11 08:48 | HMH.ANESII ---
[facility] Anesthesia Record Part II Discharge Time: 11:10 Destination: Surgical Day Care (OP Surgery) PACU nurse assessment reviewed?: Yes Patient Condition:: Good Anesthesia Complications:: None Swallowing reflex intact?: Yes Cyanosis?: No Blood Pressure: 111/71 Pulse Rate: 63 Temperature: 97 F Mental Status: Alert & Oriented Pain level:: 0 Nausea and/or vomitting:: None Intake, IV Amount: 0
[2021-02-11 08:49] VITALS: BP 111/71; PULSE 63; TEMP 36.1
== END 2021-02-08 11:56 | disposition home or self-care (01) ==
LOC: OR 06:17
PROVIDERS: PCP Internal Medicine Adolescent Medicine; Visit Provider Surgery
PROC: (CPT 11401; principal; 2021-02-08 07:30)
DX: D23.61 Other benign neoplasm of skin of right upper limb, including shoulder (principal); D23.62 Other benign neoplasm of skin of left upper limb, including shoulder; D17.22 Benign lipomatous neoplasm of skin and subcutaneous tissue of left arm; Z85.828 Personal history of other malignant neoplasm of skin; Z85.42 Personal history of malignant neoplasm of other parts of uterus; I49.9 Cardiac arrhythmia, unspecified; J45.909 Unspecified asthma, uncomplicated; K21.9 Gastro-esophageal reflux disease without esophagitis; E78.5 Hyperlipidemia, unspecified; I10 Essential (primary) hypertension; Z86.711 Personal history of pulmonary embolism; Z86.718 Personal history of other venous thrombosis and embolism
CPT/HCPCS: 11401 ×2; 11402; 88304; 96374; J2405

== ENCOUNTER 2021-02-09 19:39 | Emergency (ER) | payer OTHER, SELFPAY ==
[2021-02-09 19:39] VITALS: BP 132/114; PULSE 61; RESP 20; TEMP 36.6; O2SAT 97; BMI 41.8
--- NOTE | 2021-02-09 19:51 | ECG_ITS ---
APPROVED REPORT Exam: Resting ECG HR:58 bpm ECG Measurements Heart Rate 58 AXES CA 120 P 57 QRSd 92 QRS 38 QT 454 T 33 QTc 445 Conclusion Sinus bradycardia with sinus arrhythmia Nonspecific ST and T wave abnormality Abnormal ECG Electronically signed by : Luciano Falk, 02/11/2021 17:33:24
--- NOTE | 2021-02-09 19:58 | CT_ITS ---
PROCEDURE INFORMATION: Exam: CT Abdomen And Pelvis With Contrast Exam date and time: 02/09/2021 7:58 PM Age: 35 years old Clinical indication: Nausea and vomiting; Prior surgery; Surgery date: 1-6 months; Patient HX: N/v/d, abd and chest pain, gastric bypass SX 3 month ago TECHNIQUE: Imaging protocol: Computed tomography of the abdomen and pelvis with contrast. Radiation optimization: All CT scans at this facility use at least one of these dose optimization techniques: automated exposure control; mA and/or kV adjustment per patient size (includes targeted exams where dose is matched to clinical indication); or iterative reconstruction. Contrast material: ISOVUE; Contrast volume: 75 ml; Contrast route: IV; COMPARISON: CT ABDOMEN PELVIS W CON 05/28/2019 4:58 PM FINDINGS: Liver: Normal. No mass. Gallbladder and bile ducts: Normal. No calcified stones. No ductal dilation. Pancreas: Normal. No ductal dilation. Spleen: Normal. No splenomegaly. Adrenal glands: Normal. No mass. Kidneys and ureters: Normal. No hydronephrosis. Stomach and bowel: Operative changes of the stomach are seen. Appendix: No evidence of appendicitis. Intraperitoneal space: Unremarkable. No free air. No significant fluid collection. Vasculature: Unremarkable. No abdominal aortic aneurysm. Lymph nodes: Unremarkable. No enlarged lymph nodes. Urinary bladder: Unremarkable as visualized. Reproductive: There has been a hysterectomy. No adnexal cysts or masses are identified. Bones/joints: Stable mild degenerative osseous changes. Soft tissues: Unremarkable. IMPRESSION: No acute findings.
--- NOTE | 2021-02-09 19:58 | XR_ITS ---
PROCEDURE INFORMATION: Exam: XR Chest Exam date and time: 02/09/2021 7:58 PM Age: 35 years old Clinical indication: Chest pressure; Patient HX: Chest pain, n/v/d; Additional info: Cp TECHNIQUE: Imaging protocol: XR of the chest. Views: 1 view. COMPARISON: CR XR CHEST PORTABLE 03/11/2020 11:01 AM FINDINGS: Lungs: There is a 12 mm nodule demonstrated within the lateral aspect of the right mid lung. This is in the region of infiltrate on the prior study. Consider follow-up CT scan without IV contrast if clinically mid. No other significant interval changes are seen. Pleural spaces: Unremarkable. No pleural effusion. No pneumothorax. Heart/Mediastinum: Unremarkable. No cardiomegaly. Bones/joints: Unremarkable. IMPRESSION: There is a 12 mm nodule demonstrated within the lateral aspect of the right mid lung. This is in the region of infiltrate on the prior study. Consider follow-up CT scan without IV contrast if clinically mid. No other significant interval changes are seen.
--- NOTE | 2021-02-09 20:31 | HMH.EDNVD ---
ED Disposition Clinical Impression: Abdominal pain Qualifiers: Abdominal location: epigastric Qualified Code(s): R10.13 - Epigastric pain Disposition: Home, Self-Care Condition on Discharge: Good Instructions: DI for Vomiting -- Adult Additional Instructions: fluids and call pcp and surg for follow up Referrals: Jayden Marcum MD [Primary Care Provider] - - Critical Care Critical Care Time: No Attestation: On 02/09/21, the high probability of a clinically significant, sudden or life threatening deterioration of the following system(s) required my full and direct attention, intervention and personal management. The time I documented below is in addition to time spent performing reported procedures but includes the following listed in this critical care notation. Medical Decision Making - Medical Records Medical records reviewed: Yes: I reviewed the patient's medical records. - Dinesh Inquiry Pt receiving controlled substance: No Vital Signs: 02/09/21 19:39 02/09/21 21:32 Temperature 97.8 F Temperature Source Oral Pulse Rate 88 Pulse Rate [Right] 61 Respiratory Rate 20 17 Blood Pressure 141/81 H Blood Pressure [Right Arm] 132/114 H Blood Pressure Mean [Right Arm] 120 02 Sat by Pulse Oximetry 97 99 - Lab Data Lab results reviewed: Yes: I reviewed the patient's lab results. Lab Results 02/09/21 20:28: WBC 12.4 H, RBC 5.01, Hgb 14.0, Hct 41.0, MCV 81.8, MCH 28.0, MCHC 34.2, RDW 15.3, Plt Count 226, MPV 9.6, Neut % (Auto) 80.1 H, Lymph % (Auto) 14.8, [place] % (Auto) 4.3, Eos % (Auto) 0.3, Baso % (Auto) 0.4, Neut # (Auto) 9.9 H, Lymph # (Auto) 1.8, [place] # (Auto) 0.5, Eos # (Auto) 0.0, Baso # (Auto) 0.1, ESR 25 H 02/09/21 20:28: Sodium 142, Potassium 3.7, Chloride 107, Carbon Dioxide 19 L, Anion Gap 19.7 H, BUN 8, Creatinine 0.70, Estimated Creat Clear 116, Estimated GFR 95, Est GFR ( Amer) 115, Glucose 127 H, Calcium 9.5, Total Bilirubin 0.7, AST 33, ALT 27, Alkaline Phosphatase 118, Troponin I < 0.01, C-Reactive Protein 15.3 H, Total Protein 8.5 H, Albumin 4.6, Globulin 3.9 H, Albumin/Globulin Ratio 1.2, Amylase 80, Procalcitonin 0.056 02/09/21 20:28: Lipase 97 02/09/21 21:35: Urine Color Yellow, Urine Appearance Sl cloudy, Urine pH 7.0, Ur Specific [place] 1.020, Urine Protein Trace, Urine Glucose (UA) Negative, Urine Ketones 3+, Urine Blood 2+, Urine Nitrate Negative, Urine Bilirubin Negative, Urine Urobilinogen 0.2, Ur Leukocyte Esterase Negative, Urine RBC 5-10, Urine WBC 3-5, Ur Squamous Epith Cells 5-10, Urine Bacteria 2+ Result diagrams: 02/09/21 20:28 02/09/21 20:28 Orders (Tests/Meds): ED MEDICATIONS Generic Name Dose Route Start Last Admin Trade Name Freq PRN Reason Stop Dose Admin Sodium Chloride 1,000 mls @ 999 mls/hr 02/09/21 20:00 02/09/21 20:32 Sod Chlor 0.9% 1000ml Bag IV 02/09/21 21:00 999 mls/hr .Q1H1M CLARISA Administration Sodium Chloride 8 ml 02/09/21 20:00 Sodium Chloride 0.9% 10ml Vial IV 03/11/21 19:59 NEEDED PRN dilute pepcid Discontinued Medications Generic Name Dose Route Start Last Admin Trade Name Freq PRN Reason Stop Dose Admin Famotidine 20 mg 02/09/21 20:00 02/09/21 20:31 Famotidine 20mg/2ml Vial IV 02/09/21 20:01 20 mg ONCE ONE Administration Iopamidol 75 ml 02/09/21 21:16 02/09/21 21:17 Iopamidol-370 (76%);100ml Bottle IV 02/09/21 21:17 75 ml ONCE ONE Administration Ketorolac Tromethamine 30 mg 02/09/21 20:00 02/09/21 20:32 Ketorolac 30mg/Ml Vial IV 02/09/21 20:01 Not Given ONCE ONE Metoclopramide HCl 10 mg 02/09/21 20:00 02/09/21 20:31 Metoclopramide Hcl 10mg/2ml Vial IVP 02/09/21 20:01 10 mg ONCE ONE Administration Ondansetron HCl 4 mg 02/09/21 20:00 02/09/21 20:31 Ondansetron 4mg/2ml Vial IV 02/09/21 20:01 4 mg ONCE ONE Administration Promethazine HCl 25 mg 02/09/21 20:30 02/09/21 20:31 Promethazine Hcl 25mg/Ml 1ml Vial IV 02/09/21 20:31 25 mg ONC
[2021-02-09 20:38] LABS: Basophils # 0.1 K/mm3 (0-0.2); Basophils % 0.4 % (0.1-2.0); Eosinophils % 0.3 % (0.1-12.0); Lymphocytes # 1.8 K/mm3 (0.7-4.5); Lymphocytes % 14.8 % (10-50); Mean Corpuscular HGB Conc 34.2 g/dL (31.8-35.4); Mean Corpuscular Volume 81.8 fl (81-99); Mean Platelet Volume 9.6 fl (7.4-10.4); Monocytes # 0.5 K/mm3 (0.1-1.0); Monocytes % 4.3 % (1.7-9.3); Neutrophils # 9.9 K/mm3 (1.8-7.8); Neutrophils % 80.1 % (37.0-80.0); Platelet Count 226 K/mm3 (142-424); Red Blood Count 5.01 M/mm3 (4.20-5.40); Red Cell Distribution Width 15.3 % (11.5-17.5); White Blood Count 12.4 K/mm3 (4.8-10.8)
[2021-02-09 20:41] LABS: Lipase 97 U/L (23-300)
[2021-02-09 20:42] LABS: Alanine Aminotransferase 27 U/L (12-78); Albumin Level 4.6 g/dl (3.5-5.0); Albumin/Globulin Ratio 1.2 (1.1-1.8); Alkaline Phosphatase 118 U/L (38-126); Amylase 80 U/L (30-110); Anion Gap 19.7 mEq/L (5-15); Aspartate Amino Transferase 33 U/L (14-36); Bilirubin,Total 0.7 mg/dl (0.2-1.3); Blood Urea Nitrogen 8 mg/dl (7-17); Calcium 9.5 mg/dl (8.4-10.2); Carbon Dioxide 19 mmol/L (22.0-30.0); Chloride 107 mmol/L (98-107); Creatinine Clearance Estimated 116 mL/min (50-200); Estimated Glomerular Filt Rate 95 ml/min (>60); GFR (African American) 115 ML/MIN (>60); Globulin 3.9 g/dL (1.3-3.2); Glucose 127 mg/dl (74-100); Potassium 3.7 mmoL/L (3.5-5.1); Sodium 142 mmol/L (136-145); Total Protein,Serum 8.5 g/dl (6.3-8.2)
[2021-02-09 20:48] LABS: C-Reactive Protein 15.3 mg/L (0-4)
--- NOTE | 2021-02-09 20:50 | PC.NURSE ---
pt gone to radiology.
[2021-02-09 21:00] LABS: Troponin I < 0.01 ng/ml (0.00-0.034)
[2021-02-09 21:01] LABS: Procalcitonin 0.056 ng/mL (0.0-2.0)
[2021-02-09 21:10] LABS: Erythrocyte Sedimentation Rate 25 mm/hr (0-20)
[2021-02-09 21:32] VITALS: BP 141/81; PULSE 88; RESP 17; O2SAT 99
[2021-02-09 21:44] LABS: Microscopic, Urine URINE MICROSCOPIC (MICROSCOPIC)
[2021-02-09 21:51] LABS: Appearance,Urine SL CLOUDY (Clear); Blood, Urine 2+ (Negative); Color,Urine YELLOW (Yellow); Glucose,Urine (UA) Negative (Negative); Ketones,Urine 3+ (Negative); Leukocyte Esterase,Urine Negative (Negative); Nitrate,Urine Negative (Negative); Protein,Urine TRACE (Negative); Urobilinogen,Urine 0.2 EU/dl (0.2)
[2021-02-09 21:54] LABS: Bilirubin,Urine Negative (Negative)
[2021-02-09 22:03] LABS: Bacteria,Urine 2+ /lpf
[2021-02-09 22:06] VITALS: BP 124/77; PULSE 54; RESP 15; O2SAT 98
[2021-02-09 22:48] VITALS: BP 120/72; PULSE 59; RESP 16; TEMP 36.6; O2SAT 98
== END 2021-02-09 22:50 | disposition home or self-care (01) ==
PROVIDERS: Family Medicine; Emergency Provider Emergency Medicine; PCP Internal Medicine Adolescent Medicine
DX: R10.13 Epigastric pain (principal); I48.0 Paroxysmal atrial fibrillation; F41.9 Anxiety disorder, unspecified; K21.9 Gastro-esophageal reflux disease without esophagitis; I10 Essential (primary) hypertension; E78.5 Hyperlipidemia, unspecified; I47.1 Supraventricular tachycardia; Z87.891 Personal history of nicotine dependence; Z79.899 Other long term (current) drug therapy
CPT/HCPCS: 71045; 74177; 80053; 81001; 82150; 83690; 84145; 84484; 85025; 85651; 86140; 87086; 93005; 96365; 96375; 99283; J2405; Q9967

== ENCOUNTER → 2021-02-13 07:06 | Outpatient (CLI) | payer OTHER, SELFPAY ==
--- NOTE | 2021-02-13 07:07 | NM_ITS ---
APPROVED REPORT Exam: Nuclear Stress Test Indication: HYPERLIPIDEMIA, FM. HX, C.P., SOB, PALPITATIONS Patient Location: Outpatient Stress Tech: Keely Elizalde [place] Tech:Mayra White, ARRT RT (R)(N)(M) Ht: 5 ft 9 in Wt: 283 lbs Bra Size: 42HH HR: 67 bpm BP: 127/74 mmHg BSA: 2.39 m2 BMI: 41.7 History: HYPERLIPIDEMIA, FM. HX, C.P., SOB, PALPITATIONS Procedure: Patient received a 0.4 mg of intravenous Lexiscan, resting heart rate 67 bpm, resting blood pressure 127/74 mmHg, with Lexiscan maximum heart rate achived was 107 bpm which is Less than 85 % of the maximum predicted heart rate and blood pressure was 129/82 mmHg. With Lexiscan, patient denied any complaint of chest pain. TIGHTNESS IN THE THROAT AND NECK WITH H.A. Electrocardiogram Resting electrocardiogram showed sinus rhythm anterolateral ST-T changes consider subendocardial ischemia, with Lexiscan there is less than 1.[address] segment depression noted from the baseline EKG. The EKG portion of the Lexiscan is nondiagnostic. Cardiac Stress and Resting SPECT Images: Cardiac Stress and Resting SPECT images were obtained using technetium 99m Myoview 31.3 mCi stress and 10.02 mCi at rest. Gated SPECT for analysis of segmental wall motion and calculation of the ejection fraction also done, prone images were also obtained. Cardiac stress and resting SPECT images show moderate area partial reversible defect involving the anterior apical and anteroseptal wall consistent with area of nontransmural myocardial scarring, no significant marcell-infarct ischemia seen, computer derived ejection fraction is 46% with moderate anterior anterior apical and anteroseptal wall hypokinesis, right ventricle is normal size and contractility. Conclusion: 1. The EKG portion of the Lexiscan is nondiagnostic. 2. Scintigraphic evidence of nontransmural myocardial scarring involving the anterior apical and anteroseptal wall as described above, computer derived ejection fraction is 46% with segmental wall motion abnormality as described above, right ventricle is normal size and contractility 3. Abnormal Lexiscan Myoview study. Electronically signed by : Derek Crespo, 02/14/2021 10:34:16
--- NOTE | 2021-02-13 08:02 | CA_ITS ---
APPROVED REPORT Home Health Care Provider: MIMI Laterality: Bilateral Study Quality: Good Indications: bilateral carotid artery stenosis Risk Factors Hyperlipidemia Smoking Doppler Spectral Velocity Analysis ECA (R) 68.10/15.40 cm/s ECA (L) 75.60/17.20 cm/s dICA (R) 95.40/31.80 cm/s dICA (L) 116.50/49.70 cm/s [place] (R) 112.70/43.30 cm/s [place] (L) 114.80/55.70 cm/s pICA (R) 59.10/27.60 cm/s pICA (L) 87.40/35.10 cm/s dCCA (R) 59.70/15.40 cm/s pCCA (L) 74.10/17.20 cm/s pCCA (R) 70.60/12.80 cm/s Vert (L) 37.90/13.50 cm/s Vert (R) 36.70/12.70 cm/s Findings Duplex evaluation demonstrates stenosis of the right proximal internal carotid artery <20% with PSV <140 cm/sec, EDV <100 cm/sec, and IC/CC Ratio <4.0. Duplex evaluation demonstrates stenosis of the left proximal internal carotid artery <20% with PSV <140 cm/sec, EDV <100 cm/sec, and IC/CC Ratio <4.0. Duplex evaluation demonstrates antegrade flow of the bilateral Vertebral Arteries. Conclusion Duplex evaluation demonstrates stenosis of the right proximal internal carotid artery <20% with PSV <140 cm/sec, EDV <100 cm/sec, and IC/CC Ratio <4.0. Duplex evaluation demonstrates stenosis of the left proximal internal carotid artery <20% with PSV <140 cm/sec, EDV <100 cm/sec, and IC/CC Ratio <4.0. Duplex evaluation demonstrates antegrade flow of the bilateral Vertebral Arteries. Electronically signed by : Errol Allen MD 02/13/2021 16:59:56
--- NOTE | 2021-02-13 08:09 | HMH.ITSHM ---
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 []PRUCALOPRIDE PROPRANOLOL PREGABALIN OMEPRAZOLE METOCLOPRAMIDE ALPRAZOLAM AJOVY BUSPIRONE
--- NOTE | 2021-02-13 09:43 | CA_ITS ---
APPROVED REPORT Exam: Pharmacologic Technologist: Keely Elizalde, Ht: 5 ft 8 in Wt: 280 lbs BSA: 2.36 m2 HR: 67 bpm BP: 127/74 mmHg Medical History Medications: Omeprazole,,,,, Propranolol,,,,, Buspirone,,,,, Pregabalin,,,,, Alpazolam,,,,, Fremanezumab-vfrm,,,,, Metoclopramide-HCI,,,,, BOtox,,,,, Prucalopride,,,,, Stress Test Details Test: LEXISCAN Reversal agent Aminophyline 100.0 mg, given intravenously for headache. HR Resting HR: 70 bpm Max Heart Rate (APMHR): 184.987988 bpm Max HR Achieved: 109 bpm Target HR (85% APMHR): 156.042391 bpm % of APMHR: 59.24 Recovery HR: 83 bpm BP Resting BP: 127/74 mmHg Max BP: 132/83 mmHg Recovery BP: 120.0/84.0 mmHg ECG Resting ECG: NSR, T wave abns, low voltage QRS Clinical Exercise duration: 04:00 min Highest Stage Achieved: Exercise capacity: 1.0 METs Stress ECG Conclusion Tightness in throat, neck, head. Malaise Severe NEVAREZ. Other sxs resolved. Aminophylline 100mg slow IV given Sxs (NEVAREZ) no better. Aminophylline 100mg slow IV given NEVAREZ getting better Symptoms: Tightness in throat, neck and head. NEVAREZ. Arrhythmias/Ectopy: None ST-T Changes: mild exaggeration of baseline T wave abns. Conclusion: Non-diagnostic Lexiscan stress. Myoview images reported separately. Test Summary REST . . . . . . . Resting REST 11:52 . . 70 . 127/ 74 . . Stage 1 . . . . . . . Cardiolite injected Stage 1 01:00 . . 85 . . . . Stage 2 01:00 . . 103 . 122/ 74 . . Stage 3 01:00 . . 106 . 129/ 82 . . Stage 4 01:00 . . 99 . 128/ 83 . Stop exercise at 04:00 RECOVERY 01:00 . . 96 . . . . RECOVERY 02:00 . . 89 . 132/ 83 . . RECOVERY 03:00 . . 85 . 132/ 83 . . RECOVERY 04:00 . . 84 . 132/ 83 . . RECOVERY 05:00 . . 83 . 120/ 84 . . RECOVERY 06:00 . . 77 . 120/ 84 . . RECOVERY 07:00 . . 71 . 120/ 84 . . RECOVERY 08:00 . . 75 . 120/ 84 . . RECOVERY 09:00 . . 69 . 120/ 84 . . RECOVERY 10:00 . . 67 . 120/ 84 . . RECOVERY 10:12 . . 67 . 120/ 84 . . Electronically signed by : Derek Crespo, 02/14/2021 10:18:42
== END ==
PROVIDERS: PCP Internal Medicine Adolescent Medicine; Visit Provider Nurse Practitioner Family
DX: I10 Essential (primary) hypertension (principal); K21.9 Gastro-esophageal reflux disease without esophagitis; R00.2 Palpitations; R06.00 Dyspnea, unspecified; R07.9 Chest pain, unspecified; Z86.718 Personal history of other venous thrombosis and embolism; I65.29 Occlusion and stenosis of unspecified carotid artery
CPT/HCPCS: 78452; 93017; 93880; A9502; J0280; J2785

== ENCOUNTER → 2021-03-19 13:21 | Outpatient (CLI) | payer OTHER, SELFPAY | PROVIDERS: PCP Internal Medicine Adolescent Medicine; Visit Provider Internal Medicine | DX: R07.9 Chest pain, unspecified (principal); R06.00 Dyspnea, unspecified; R00.2 Palpitations; I10 Essential (primary) hypertension; K21.9 Gastro-esophageal reflux disease without esophagitis; R60.9 Edema, unspecified; Z86.718 Personal history of other venous thrombosis and embolism | CPT/HCPCS: 93270 ==

== ENCOUNTER → 2021-06-10 14:05 | Outpatient (CLI) | payer OTHER, SELFPAY ==
--- NOTE | 2021-06-10 14:58 | MR_ITS ---
PROCEDURE INFORMATION: Exam: MR Left Upper Extremity Joint Without Contrast; Shoulder Exam date and time: 06/10/2021 2:58 PM Age: 36 years old Clinical indication: Pain; Shoulder; Left; Additional info: Acute pain of left shoulder. Pain of left shoulder. Feels like it dislocates. No injury or trauma. Weakness in arm. No prior, TECHNIQUE: Imaging protocol: MR of the Left upper extremity without contrast. Exam focused on the shoulder. COMPARISON: 1. US EXTREMITY LT LIMITED 05/01/2020 3:22 PM (outside the field of view of the MRI) 2. CR XR CHEST PORTABLE 02/09/2021 9:04 PM FINDINGS: Bones and cartilage: The undersurface of the acromion is flat, consistent with a type I acromion. There is no acute fracture or dislocation. No aggressive bone lesions are present. Subchondral cystic change involving the superomedial humeral head suggests overlying foci of full-thickness cartilage fissuring that is beyond the resolution of this study (series 10/image 6). A small subchondral cyst involves the posteroinferior humeral head near the bare area. There is no acute fracture or dislocation. No aggressive bone lesions are present. Joint spaces: No significant degenerative change involves the acromioclavicular joint. A normal amount of fluid is present in the glenohumeral joint. Glenoid labrum: Unremarkable. No evidence of tear. Supraspinatus tendon: Mild tendinosis involves the supraspinatus tendon. Infraspinatus tendon: Mild tendinosis involves the infraspinatus tendon. Subscapularis tendon: No tear or significant tendinosis involves the subscapularis tendon. Teres minor tendon: No tear or significant tendinosis involves the teres minor tendon. Tendon of biceps brachii: Mild tendinosis involves the intra-articular portion of the long head of the biceps tendon. Glenohumeral ligaments: Unremarkable. Muscles: The rotator cuff musculature demonstrates no significant edema or atrophy. Soft tissues: Unremarkable. IMPRESSION: 1. Mild tendinosis of the supraspinatus, infraspinatus and long head of the biceps tendons. 2. Probable full-thickness cartilage fissuring involving the superomedial humeral head, as suggested by subchondral cystic change.
[2021-06-10 15:08] LABS: Basophils # 0.1 K/mm3 (0-0.2); Basophils % 0.7 % (0.1-2.0); Eosinophils # 0.1 K/mm3 (0.0-0.4); Hematocrit 45.1 % (37.0-47.0); Hemoglobin 14.1 g/dL (12.2-16.2); Mean Corpuscular HGB Conc 31.4 g/dL (31.8-35.4); Mean Corpuscular Hemoglobin 28.8 pg (27.0-31.2); Mean Corpuscular Volume 91.7 fl (81-99); Mean Platelet Volume 8.8 fl (7.4-10.4); Monocytes # 0.6 K/mm3 (0.1-1.0); Monocytes % 4.8 % (1.7-9.3); Neutrophils # 8.2 K/mm3 (1.8-7.8); Neutrophils % 68.5 % (37.0-80.0); Platelet Count 281 K/mm3 (142-424); Red Blood Count 4.91 M/mm3 (4.20-5.40); Red Cell Distribution Width 14.5 % (11.5-17.5); White Blood Count 11.9 K/mm3 (4.8-10.8)
[2021-06-10 15:17] LABS: Anion Gap 15.5 mEq/L (5-15); Blood Urea Nitrogen 14 mg/dl (7-17); Calcium 9.5 mg/dl (8.4-10.2); Carbon Dioxide 28 mmol/L (22.0-30.0); Chloride 105 mmol/L (98-107); Estimated Glomerular Filt Rate 94 ml/min (>60); GFR (African American) 114 ML/MIN (>60); Glucose 84 mg/dl (74-100); Potassium 4.5 mmoL/L (3.5-5.1); Sodium 144 mmol/L (136-145)
== END ==
PROVIDERS: Nurse Practitioner Family; Visit Provider Internal Medicine Adolescent Medicine
DX: Z01.812 Encounter for preprocedural laboratory examination (principal); Z11.52 Encounter for screening for COVID-19; M25.512 Pain in left shoulder
CPT/HCPCS: 36415; 73221; 80048; 85025; C9803; U0003; U0005

== ENCOUNTER 2021-06-12 08:50 | Day surgery (SDC) | payer OTHER, SELFPAY ==
[2021-06-12] VITALS (12 sets, daily range): BP systolic 102–124; BP diastolic 58–90; PULSE 58–90; RESP 16–18; TEMP 36.6; O2SAT 93–100; BMI 37.3
--- NOTE | 2021-06-12 | IR_ITS ---
APPROVED REPORT Patient Location: Outpatient Tub Puller: BUTCH Juarez RT (R) PROCEDURES Left heart catheterization Left ventriculogram Selective coronary angiogram INDICATION Angina pectoris, Abnormal stress test, Preoperative evaluation Informed consent was obtained prior to the procedure. COMPLICATIONS NONE Estimated Blood Loss: LESS THAN 10 ML TECHNIQUE One percent lidocaine used to anesthetize the right anterior aspect of the wrist. The right radial artery was accessed via the Seldinger technique. A 6 Tamazight sheath was placed in the right radial artery. 2.5 mg of verapamil, 800 mcg of nitroglycerin, 1mg Lidocaine and 5000 U Heparin were given through the arterial sheath. The trap catheter was also used to perform left heart catheterization, left ventriculogram and selective coronary angiogram. At the end of the procedure the sheath was removed good hemostasis was achieved using Traclet band, patient was transferred to the postop holding area in stable condition. ANGIOGRAPHIC RESULTS The left main artery Normal The left anterior descending artery Normal The circumflex artery Normal The right coronary artery Dominant normal The RAMIREZ ventriculogram reveals Normal 65% The left ventricular end-diastolic pressure 30 mmHg IMPRESSION Normal coronary arteries Normal ejection fraction Moderate to severely elevated LVEDP PLAN 1. Patient is alone acceptable risk to proceed with surgery 2. Treat diastolic dysfunction Electronically signed by : Woo Cleaning MD 06/12/2021 13:58:26
== END 2021-06-12 15:15 | disposition home or self-care (01) ==
LOC: CATHLAB 08:51
PROVIDERS: PCP Internal Medicine Adolescent Medicine; Visit Provider Internal Medicine
DX: R94.39 Abnormal result of other cardiovascular function study (principal); I25.118 Atherosclerotic heart disease of native coronary artery with other forms of angina pectoris; I48.0 Paroxysmal atrial fibrillation; Z79.899 Other long term (current) drug therapy; I11.0 Hypertensive heart disease with heart failure; K21.9 Gastro-esophageal reflux disease without esophagitis
CPT/HCPCS: 93458; 99152; C1725; C1769; J1644; Q9967

== ENCOUNTER → 2021-06-21 13:57 | Outpatient (CLI) | payer OTHER, SELFPAY ==
--- NOTE | 2021-06-21 13:58 | MR_ITS ---
PROCEDURE INFORMATION: Exam: MR Right Lower Extremity Joint Without and With Contrast; Ankle Exam date and time: 06/21/2021 1:58 PM Age: 36 years old Clinical indication: Pain; Ankle; Right; Additional info: Achilles tendon pain. Posterior ankle pain with burning pain xyrs. No injury or trauma. Prior MR 08-14-20 23ml prohance given. TECHNIQUE: Imaging protocol: MR of the Right lower extremity without and with contrast. Exam focused on the ankle. Contrast material: PROHANCE; Contrast volume: 23 ml; Contrast route: IV; COMPARISON: MR ANKLE RT WO/W CON 08/14/2020 8:51 AM FINDINGS: Bones and cartilage: A small T2 hyperintense cyst or prominent vascular remnant is seen within the bone marrow of the calcaneus. Significant marrow edema is identified within the proximal 1st metatarsal bone and distal 2nd metatarsal bone, new compared to the prior study. Periosteal edema visualized. Mild marrow edema involving the medial cuneiform bone. Differential considerations include trauma, stress injuries, and osteomyelitis. Minimal patchy STIR hyperintensity within the bone marrow of the distal tibia and fibula, which is nonspecific. This can be contributed by red marrow, although marrow edema is also considered. This is a progression from the prior study. Joint spaces: Small subtalar joint effusion. Small collections of fluid are again identified posterior to the talus. Minimal fluid or effusion medial to the 1st metatarsal-tarsal joint. LIGAMENTS: Distal tibiofibular syndesmosis: No tear. Anterior talofibular ligament: Mild edema adjacent to the anterior talofibular ligament and calcaneofibular ligament, suggestive of ligament sprain. Posterior talofibular ligament: No tear. Calcaneofibular ligament: No tear. Deltoid ligament complex: Heterogeneous signal intensity of the deltoid ligament, without definitive tear. TENDONS: Flexor tendons of foot: See below. Tibialis posterior tendon: Minimal tenosynovitis of the posterior tibialis tendon, flexor digitorum tendon, and peroneal tendons. Peroneal tendons: See above. Extensor tendons of foot: Unremarkable as visualized. Tibialis anterior tendon: Unremarkable as visualized. Achilles tendon: Minimal fluid anterior to the distal Achilles tendon. No visualized Achilles tendon tear. Mild swelling identified anteromedial to the Achilles tendon, suggestive of Achilles paratenonitis. This has mildly progressed. Tarsal canal (Sinus tarsi): Edema within the sinus tarsi. Lateral to the talar head/neck and extending into the sinus tarsi, there is an irregular collection of fluid measuring approximately 2.1 x 0.6 x 0.6 cm. This likely represents a ganglion cyst and is similar to the prior study. Muscles: No visualized acute abnormality. Soft tissues: Mild soft tissue swelling lateral to the ankle and hindfoot. Plantar fascia: Focal thinning of the medial band of the plantar fascia, which is stable compared to the previous exam. IMPRESSION: 1. Significant marrow edema is identified within the proximal 1st metatarsal bone and distal 2nd metatarsal bone, new compared to the prior study. Mild marrow edema involving the medial cuneiform bone. Differential considerations include trauma, stress injuries, and osteomyelitis. Clinical correlation recommended. 2. Mild swelling identified anteromedial to the Achilles tendon, suggestive of Achilles paratenonitis. This has mildly progressed. 3. Lateral to the talar head/neck and extending into the sinus tarsi, there is an irregular collection of fluid measuring approximately 2.1 x 0.6 x 0.6 cm. This likely represents a ganglion cyst and is similar to the prior study.
== END ==
PROVIDERS: PCP Internal Medicine Adolescent Medicine; Visit Provider Podiatrist
DX: M76.61 Achilles tendinitis, right leg (principal)
CPT/HCPCS: 73723; A9576

== ENCOUNTER → 2021-07-15 13:50 | Outpatient (CLI) | payer OTHER, SELFPAY ==
--- NOTE | 2021-07-15 14:16 | XR_ITS ---
PROCEDURE: XR CHEST 2V CLINICAL HISTORY: HX OF ASTHMA COMPARISON: CT AGCHEST CT angio chest from 05/28/2018 CR CXR2V XR chest 2V from 10/11/2018 CR XR CHEST PORTABLE from 03/11/2020 CR XR CHEST PORTABLE from 02/09/2021 FINDINGS: The cardiomediastinal silhouette and pulmonary vascularity are within normal limits. Partially calcified nodule right upper lobe posterior laterally. No acute bony abnormalities. IMPRESSION: No acute findings. Dictated by: Errol Allen MD 07/15/2021 16:05 Errol Allen MD in [place] 07/15/2021 16:05
[2021-07-15 14:34] LABS: Basophils # 0.1 K/mm3 (0-0.2); Basophils % 0.8 % (0.1-2.0); Eosinophils # 0.2 K/mm3 (0.0-0.4); Hematocrit 44.6 % (37.0-47.0); Hemoglobin 14.7 g/dL (12.2-16.2); Lymphocytes # 3.3 K/mm3 (0.7-4.5); Lymphocytes % 31.4 % (10-50); Mean Corpuscular HGB Conc 32.9 g/dL (31.8-35.4); Mean Corpuscular Hemoglobin 29.2 pg (27.0-31.2); Mean Platelet Volume 9.2 fl (7.4-10.4); Monocytes # 0.7 K/mm3 (0.1-1.0); Monocytes % 6.6 % (1.7-9.3); Neutrophils # 6.2 K/mm3 (1.8-7.8); Neutrophils % 59.2 % (37.0-80.0); Platelet Count 266 K/mm3 (142-424); Red Blood Count 5.01 M/mm3 (4.20-5.40); Red Cell Distribution Width 13.6 % (11.5-17.5); White Blood Count 10.4 K/mm3 (4.8-10.8)
[2021-07-15 15:38] LABS: Alanine Aminotransferase 22 U/L (12-78); Albumin Level 4.5 g/dl (3.5-5.0); Albumin/Globulin Ratio 1.4 (1.1-1.8); Alkaline Phosphatase 142 U/L (38-126); Aspartate Amino Transferase 38 U/L (14-36); Bilirubin,Total 0.5 mg/dl (0.2-1.3); Blood Urea Nitrogen 15 mg/dl (7-17); Calcium 9.5 mg/dl (8.4-10.2); Carbon Dioxide 30 mmol/L (22.0-30.0); Chloride 105 mmol/L (98-107); Estimated Glomerular Filt Rate 81 ml/min (>60); GFR (African American) 98 ML/MIN (>60); Globulin 3.2 g/dL (1.3-3.2); Glucose 93 mg/dl (74-100); Sodium 144 mmol/L (136-145); Total Protein,Serum 7.7 g/dl (6.3-8.2)
== END ==
PROVIDERS: Visit Provider Podiatrist
DX: Z01.818 Encounter for other preprocedural examination (principal); Z20.822 Contact with and (suspected) exposure to COVID-19; M76.61 Achilles tendinitis, right leg
CPT/HCPCS: 71046; 80053; 85025; C9803; U0003; U0005

== ENCOUNTER 2021-07-17 06:01 | Day surgery (SDC) | payer OTHER, SELFPAY ==
[2021-07-15 08:44] VITALS: BMI 36.9
[2021-07-17] VITALS (11 sets, daily range): BP systolic 116–142; BP diastolic 77–93; PULSE 68–74; RESP 16–22; TEMP 36.3–43; O2SAT 94–100
--- NOTE | 2021-07-17 06:56 | HMH.ANESCL ---
[facility] Anesthesia Checklist - Patient Identification Patient Identification: Arm Band - Structural Data Admitted From: Home Planned Operative Procedure/s: R. achilles tendon lengthening Consent for Planned Operative Procedure(s) Verified: Yes - NPO Status Verified Time NPO: 00:00 - Additional verifications Anesthesia Reactions: Yes (awareness during Hysterectomy) Hx Blood Transfusions: Yes Blood Transfusion Reaction: No - Airway Assessment C-Spine Mobility Assessed: Yes TMJ Mobility Assessed: Yes - Neurological Assessment Level of Consciousness: Awake Hx Seizures: No Numbness or tingling in extremities: No - Anesthesia Plan Anesthesia Risk discussed: Yes Anesthesia Plan: Verified ASA Class: III Anesthesia Type: General w/block [facility] History I have reviewed the patient's past medical history: Yes Medical History: Reports:: Anxiety, Arrhythmia, Asthma, Atrial Fibrillation, Cancer (endometrial), Deep Vein Thrombosis, Gastroesophageal Reflux Disease(GERD), Heart Murmur, Hyperlipidemia, Hypertension, Migraine, Osteoporosis, Pulmonary Embolism, Supraventricular Tachycardia, Ulcer Denies:: Diabetes Mellitus Type 1, Diabetes Mellitus Type 2, Internal Pacemaker, MRSA, Seizures *Have you ever received a pneumonia vaccine?: No *Have you received a flu vaccine this season?: Yes Other Medical History: Reports: Anemia, Arthritis, Chemotherapy, Fibromyalgia, Hormone Therapy, Hypothyroidism, Liver Disease (being evaluated ), Osteoporosis, Other (Ehler's Danlos). Denies: Blood Transfusion Reaction Anesthesia experience/problems:: None Laterality Cases: Left: Lumpectomy, Bilateral: Arthroscopy Knee Other Surgeries: Yes: Bariatric Surgery, BSO, Cardiac Catheterization, EGD, Hysterectomy-Total, Skin Cancer Excision, Other. No: Pacemaker Amputation: No Fractures: Yes - *Social History Last grade of school completed: Advanced degree Smoking Status: Former smoker Tobacco Type: cigarettes # Packs/Day (cigarettes): 4 #Yrs smoked (if former smoker): 12 Alcohol Intake: never Alcohol Intake Frequency:: holidays/special occasions only Substance Use Type: marijuana *Occupational Status:: disabled Housing: house Household Members: spouse *Travel in the last 8 weeks: None - Psychiatric History Pschychiatric History:: Reports:: Anxiety Family Hx:: Cancer, Kidney Disease
--- NOTE | 2021-07-17 07:36 | HMH.OPNOTE ---
Date of procedure: 07/17/21 Pre-op Diagnosis:: 1. Right Achilles tendinitis 2. Gastrocnemius equinus of right lower extremity 3. Right foot pain 4. Primary osteoarthritis of right foot 5. Metatarsus adductus of both feet 6. Bone marrow edema 7. Ganglion cyst of right foot 8. Fibromyalgia 9. Obesity, Class II, BMI 35-39.9 Post-op Diagnosis:: Same Procedure performed:: 1. Right achilles tenosynovectomy 2. Right gastroc recession 3. Right ankle arthrotomy and synovectomy 4. Right foot soft tissue mass/cyst excision 5. Right calcaneus bone curette/debridement, open bone biospy 6. Application of graft 7. Application of posterior splint/cast Surgeon:: Camilla Darden DPM PROJECT MANAGEMENT INSTRUCTOR:: Zane Mallory Anesthesia: GETA, regional (right popliteal nerve block) Estimated blood loss (mL): 15 Clinical Note:: The patient is a 36-year-old female with a history of metatarsus adductus and bilateral foot pain. Presents with continued right Achilles pain with stressing the first MPJ. We had discussed hindfoot (triple arthrodesis) surgery with FRANCHESKA versus gastrocnemius recession. We discussed risks and benefits of surgery. Patient did have some relief with the left foot triple arthrodesis but still has impingement and met adductus pain. I explained if patient did not get full relief of symptoms on the left, it is unlikely she would on the right side. We discussed realistic expectations with the right foot surgery. I explained that we can hold off on osseous surgery, and instead do Achilles debridement with a partial lengthening to relieve some of the equinus contracture and pain. She has elected to proceed with surgery because she has failed conservative treatment and continues to have pain and worsening symptoms affecting daily activities. The patient has been instructed on the planned procedure, all risk versus benefits of the procedure discussed. These include but are not limited to: bleeding, infection, nerve and blood vessel damage, need for further surgery, delay in healing of soft tissue or bone, tendon re-rupture, failure of bones to heal, non-union, mal-union, failure of the implant, prolonged pain and recovery, CPRS/RSD, DVT and anesthetic complications. No guarantees were given. All questions fully answered. The patient verbalized understanding and agreed to proceed with surgery. Written consent was obtained. Necessary labs and pre-op testing ordered: CBC, CMP, EKG, CXR, covid. Cardiac clearance granted. She has a fx boot, crutches and RKS. Will need Rx for [place] 7.5mg, Zofran 4mg, aspirin 81mg for DVT ppt. Operative findings:: Right ankle equinus contracture noted. Right distal Achilles tenosynovitis. Ankle synovitis noted. Lateral sinus tarsi had soft tissue mass, aspects of chile filled cyst as well as lipoma noted. Lateral calcaneus had a soft indentation which does correlate to the cystic area on the MRI, bone sent for specimen. The case did take 30 minutes longer than normal due to patient's large body habitus and obesity which required more meticulous dissection given the degree of subcutaneous fatty tissue. Operative note:: On this date and time, the patient was deemed an appropriate surgical candidate. With informed consent signed, the patient was taken to the operating theater after regional popliteal nerve block was given by anesthesia. Patient was positioned supine. General anesthesia induced. 2 g IV Ancef infused. Tourniquet was applied to the right thigh at 250 mmHg. The right lower extremity was prepped and draped in normal sterile fashion. Right gastroc recession: Attention was directed to the posterior leg medially a linear incision was mapped out. Layer dissection carried down to the peritenon overlying the gastrocnemius muscle, with care taken to maintain surgical hemostasis and retract neurovascular structures. There was an abundance of subcutaneous tissue. The peritenon was transected and preserved for later closure. The gastroc was identified and
--- NOTE | 2021-07-17 08:38 | SUR.OPER ---
0804-family updated at this time
--- NOTE | 2021-07-17 08:51 | XR_ITS ---
PROCEDURE: XR ANKLE RT 2V CLINICAL INDICATION: RT ACHILLES TENDON LENGTHENING, ANKLE SYNOVECTOMY COMPARISON: CR [id number] XR ankle wt bearing RT min 3V from 06/22/2018 CR XR ANKLE WT BEARING LT MIN 3V from 03/22/2019 CR XR ANKLE WT BEARING RT MIN 3V from 08/02/2020 CR XR ANKLE WT BEARING LT MIN 3V from 08/02/2020 FINDINGS: Fluoroscopy time: 0.1 minutes. 2 lateral views of ankle are performed 1 of which shows a para hemostats present overlying the ankle with the tip along the cephalad aspect of the mid aspect of the calcaneus IMPRESSION: Intraoperative C-arm images performed as described Dictated by: Errol Allen MD 07/17/2021 17:09 Errol Allen MD in [place] 07/17/2021 17:09
--- NOTE | 2021-07-17 09:00 | XR_ITS ---
PROCEDURE: XR ANKLE RT MIN 3V XR foot right minimum three view CLINICAL INDICATION: s/p right ankle, cyst removal COMPARISON: CR XR ANKLE WT BEARING LT MIN 3V from 03/22/2019 CR XR ANKLE WT BEARING RT MIN 3V from 08/02/2020 CR XR ANKLE WT BEARING LT MIN 3V from 08/02/2020 MR MR ANKLE RT WO/W CON from 08/14/2020 MR MR ANKLE RT WO/W CON from 06/21/2021 CR XR FOOT RT MIN 3V from 07/17/2021 CR XR ANKLE RT 2V from 07/17/2021 FINDINGS: There is a posterior splint in place. Soft tissue gas noted along the dorsal aspect of the distal tibia and at the ankle joint region. There is good alignment. Right foot: Posterior splint is in place. Good alignment. No acute fracture or dislocation. IMPRESSION: Postsurgical changes with posterior splint in place. Dictated by: Errol Allen MD 07/17/2021 17:01 Errol Allen MD in [place] 07/17/2021 17:01
--- NOTE | 2021-07-17 09:26 | HMH.ANESI ---
[facility] Anesthesia Record Part I Intake, IV Amount: 1,000 Estimated blood loss (mL): 0 Urine output (mL): 0 Blood Pressure: 129/93 SaO2: 95 Pulse Rate: 70 Respiratory Rate: 20 Temperature: 98.9 F Patient is:: Drowsy Stable to PACU at:: 09:23
--- NOTE | 2021-07-17 11:25 | HMH.ANESII ---
[facility] Anesthesia Record Part II Discharge Time: 09:53 Destination: Surgical Day Care (OP Surgery) PACU nurse assessment reviewed?: Yes Patient Condition:: Good Anesthesia Complications:: None Swallowing reflex intact?: Yes Cyanosis?: No Blood Pressure: 118/78 Pulse Rate: 68 Temperature: 98 F Mental Status: Alert & Oriented Pain level:: 0 Nausea and/or vomitting:: None Intake, IV Amount: 0
== END 2021-07-17 10:35 | disposition home or self-care (01) ==
LOC: OR 06:03
PROVIDERS: PCP Internal Medicine Adolescent Medicine; Visit Provider Podiatrist
PROC: (CPT 27687; principal; 2021-07-17 07:30)
DX: M76.61 Achilles tendinitis, right leg (principal); M21.6X1 Other acquired deformities of right foot; M79.671 Pain in right foot; M19.071 Primary osteoarthritis, right ankle and foot; M21.41 Flat foot [pes planus] (acquired), right foot; M67.471 Ganglion, right ankle and foot
CPT/HCPCS: 27687; 27626; 28090; 15275; 20240; 73600; 73610; 73630; 76000; 88305; 88307; 88311; 96374; J0131; J2405; Q4211

== ENCOUNTER → 2021-07-26 12:05 | Outpatient (CLI) | payer OTHER, SELFPAY ==
--- NOTE | 2021-07-26 12:07 | XR_ITS ---
PROCEDURE: XR SHOULDER LT MIN 2V CLINICAL INDICATION: LT shoulder pain COMPARISON: No exams were available for comparison FINDINGS: No fracture or dislocation. No lytic or blastic change. There is normal mineralization. The joint spaces are well-preserved. No significant degenerative/arthritic changes. No erosive changes evident. Other findings:None. IMPRESSION: No acute findings. Dictated by: Errol Allen MD 07/26/2021 13:30 Errol Allen MD in [place] 07/26/2021 13:30
== END ==
PROVIDERS: PCP Internal Medicine Adolescent Medicine; Visit Provider Orthopaedic Surgery
DX: M25.512 Pain in left shoulder (principal); Z98.890 Other specified postprocedural states
CPT/HCPCS: 73030; 87070; 87077; 87186; 87205

== ENCOUNTER → 2021-08-12 16:42 | Outpatient (CLI) | payer OTHER, SELFPAY ==
--- NOTE | 2021-08-12 16:42 | XR_ITS ---
PROCEDURE: XR CALCANEUS RT MIN 2V CLINICAL INDICATION: PAIN COMPARISON: CR XR ANKLE RT MIN 3V from 07/17/2021 CR XR FOOT WT BEARING LT 3V from 08/12/2021 FINDINGS: No fracture or dislocation. No lytic or blastic change. There is normal mineralization. The joint spaces are well-preserved. No significant degenerative/arthritic changes. No erosive changes evident. There a small calcaneal spur. Mild osteoarthritic changes are present at the navicular cuneiform and talonavicular joint. IMPRESSION: Small calcaneal spur with mild osteoarthritic change in the midfoot Dictated by: Errol Allen MD 08/13/2021 11:44 Errol Allen MD in [place] 08/13/2021 11:44
--- NOTE | 2021-08-12 16:42 | XR_ITS ---
PROCEDURE: XR FOOT WT BEARING LT 3V CLINICAL INDICATION: PAIN COMPARISON: CR XR FOOT WT BEARING LT 3V from 09/07/2019 CR XR FOOT RT MIN 3V from 07/17/2021 FINDINGS: Status post triple arthrodesis with fusion of the talocalcaneal, talonavicular, and calcaneocuboid joints. Good alignment. No fracture or dislocation. IMPRESSION: Postsurgical changes which appear stable Dictated by: Errol Allen MD 08/13/2021 11:38 Errol Allen MD in [place] 08/13/2021 11:38
--- NOTE | 2021-08-12 16:44 | MM_ITS ---
PROCEDURE INFORMATION: Exam: MG Bilateral Screening 3D Mammography Exam date and time: 08/12/2021 4:44 PM Age: 36 years old Clinical indication: Screening mammogram TECHNIQUE: Imaging protocol: Bilateral screening tomosynthesis and 2D mammography including computer-aided detection (CAD) when performed. COMPARISON: 1. MG MM DIG SCREENING MAMM BI W/CAD 08/06/2020 3:24 PM 2. MG MM DIG SCREENING MAMM BI W/CAD 08/03/2019 4:10 PM 3. MG SCBI MM Dig screening mamm BI w/CAD 07/16/2018 2:57 PM 4. MG MAMMOGRAM ANNUAL SCREENING [facility] ONLY PG 12/17/2010 3:49 PM FINDINGS: MAMMOGRAPHY: Breast composition: There are scattered areas of fibroglandular density. Mass: Stable benign-appearing subcentimeter nodules are present in the bilateral breasts. No new or morphologically suspicious nodule has developed to suggest malignancy. Architectural distortion: No new or suspicious architectural distortion. Calcifications: No new or suspicious calcifications are present Asymmetric density: No new or suspicious asymmetric density is present Skin thickening: None. Axillary adenopathy: None. IMPRESSION: No mammographic evidence of malignancy. Recommend annual screening mammography unless otherwise clinically indicated. ASSESSMENT: BI-RADS category 2: Benign
== END ==
PROVIDERS: PCP Internal Medicine Adolescent Medicine; Visit Provider Internal Medicine Adolescent Medicine
DX: Z12.31 Encounter for screening mammogram for malignant neoplasm of breast (principal); M79.671 Pain in right foot; Z98.890 Other specified postprocedural states
CPT/HCPCS: 73630; 73650; 77063; 77067

== ENCOUNTER 2021-11-27 15:30 | Emergency (ER) | payer OTHER, SELFPAY ==
[2021-11-27 15:47] VITALS: BP 129/91; PULSE 67; RESP 18; TEMP 36.7; O2SAT 100; BMI 34.2
--- NOTE | 2021-11-27 15:58 | CT_ITS ---
PROCEDURE INFORMATION: Exam: CT Abdomen And Pelvis Without Contrast Exam date and time: 11/27/2021 4:44 PM Age: 36 years old Clinical indication: Abdominal pain; Prior surgery; Additional info: Bloody stools/abd pain TECHNIQUE: Imaging protocol: Computed tomography of the abdomen and pelvis without contrast. Radiation optimization: All CT scans at this facility use at least one of these dose optimization techniques: automated exposure control; mA and/or kV adjustment per patient size (includes targeted exams where dose is matched to clinical indication); or iterative reconstruction. COMPARISON: CT ABDOMEN PELVIS W CON 02/09/2021 8:58 PM FINDINGS: Lungs: Clear lung bases. Liver: Normal liver. Gallbladder and bile ducts: Prior cholecystectomy. No biliary ductal dilation. Pancreas: Normal pancreas. Spleen: Normal spleen. Adrenal glands: Adrenal glands are normal. Kidneys and ureters: Normal kidneys and ureters. Stomach and bowel: Prior gastric bypass without complications. No bowel obstruction or significant bowel wall thickening. There is mildly excessive colonic stool content. Appendix: Normal appendix. Intraperitoneal space: No free fluid, fluid collections, or pneumoperitoneum. Arteries: Unremarkable. No abdominal aortic aneurysm. Lymph nodes: No retroperitoneal, pelvic, or mesenteric adenopathy. Urinary bladder: The bladder is decompressed. Reproductive: Prior hysterectomy. No complications. Bones/joints: Multilevel vertebral body hemangiomas. No acute skeletal pathology. Mild multilevel degenerative changes of the spine, as manifested by multilevel anterior osteophytes and multilevel decrease in intervertebral disc space. Soft tissues: Body wall soft tissues are unremarkable. IMPRESSION: No acute abdominopelvic pathology.
[2021-11-27 16:19] LABS: Chloride 105 mmol/L (98-107)
[2021-11-27 16:20] LABS: Potassium 3.7 mmoL/L (3.5-5.1); Sodium 140 mmol/L (136-145)
[2021-11-27 16:22] LABS: Alanine Aminotransferase 25 U/L (12-78); Aspartate Amino Transferase 31 U/L (14-36); Blood Urea Nitrogen 26 mg/dl (7-17); Creatinine Clearance Estimated 116 mL/min (50-200); Estimated Glomerular Filt Rate 56 ml/min (>60); GFR (African American) 68 ML/MIN (>60)
[2021-11-27 16:23] LABS: Albumin Level 4.5 g/dl (3.5-5.0); Albumin/Globulin Ratio 1.2 (1.1-1.8); Alkaline Phosphatase 127 U/L (38-126); Anion Gap 13.7 mEq/L (5-15); Bilirubin,Total 0.7 mg/dl (0.2-1.3); Calcium 8.7 mg/dl (8.4-10.2); Carbon Dioxide 25 mmol/L (22.0-30.0); Globulin 3.9 g/dL (1.3-3.2); Glucose 86 mg/dl (74-100); Total Protein,Serum 8.4 g/dl (6.3-8.2)
[2021-11-27 16:25] LABS: Basophils # 0.2 K/mm3 (0-0.2); Basophils % 1.4 % (0.1-2.0); Eosinophils # 0.1 K/mm3 (0.0-0.4); Eosinophils % 0.7 % (0.1-12.0); Hematocrit 46.5 % (37.0-47.0); Hemoglobin 15.3 g/dL (12.2-16.2); Lymphocytes # 3.4 K/mm3 (0.7-4.5); Lymphocytes % 31.7 % (10-50); Mean Corpuscular HGB Conc 32.9 g/dL (31.8-35.4); Mean Corpuscular Hemoglobin 29.4 pg (27.0-31.2); Mean Corpuscular Volume 89.3 fl (81-99); Mean Platelet Volume 9.1 fl (7.4-10.4); Monocytes # 0.7 K/mm3 (0.1-1.0); Monocytes % 6.2 % (1.7-9.3); Neutrophils # 6.5 K/mm3 (1.8-7.8); Platelet Count 301 K/mm3 (142-424); Red Cell Distribution Width 13.1 % (11.5-17.5); White Blood Count 10.8 K/mm3 (4.8-10.8)
[2021-11-27 16:31] VITALS: BP 134/77; PULSE 58; O2SAT 96
--- NOTE | 2021-11-27 16:46 | PC.NURSE ---
patient to CT with data collection technician by wheelchair
[2021-11-27 17:03] VITALS: BP 114/80; PULSE 78; O2SAT 96
[2021-11-27 17:32] VITALS: BP 57/39; PULSE 65; O2SAT 98
--- NOTE | 2021-11-27 17:37 | HMH.EDGENADL ---
ED Disposition Clinical Impression: Occult blood positive stool Diarrhea Qualifiers: Diarrhea type: unspecified type Qualified Code(s): R19.7 - Diarrhea, unspecified Abdominal pain Qualifiers: Abdominal location: epigastric Qualified Code(s): R10.13 - Epigastric pain Nausea and vomiting Qualifiers: Vomiting type: unspecified Qualified Code(s): R11.2 - Nausea with vomiting, unspecified Disposition: Home, Self-Care Condition on Discharge: Fair Instructions: DI for Diarrhea and Traveler's Diarrhea -- Adult, DI for Vomiting -- Adult, DI for Abdominal Pain-Adult Additional Instructions: Protonix as prescribed. Collect a diarrhea sample using the provided supplies and return it along with the order form to ER registration at [facility] for testing. Obtain the results of this test from your primary care provider the next day. See Dr. Marcum or Dr. Falk in the office this week. Call tomorrow make appointment. Tylenol 3 as needed for pain, Phenergan as needed for nausea and vomiting. Additional instructions for ABDOMINAL PAIN: See your physician as soon as possible for further evaluation. Return immediately if worsening abdominal pain, passing large amounts of blood per rectum, intractable vomiting, shortness of breath, fever, vomiting of blood or abdominal distention. Prescriptions: Pantoprazole Sodium [Protonix 40mg tablet] 40 mg PO DAILY #15 tab Transmission Status: [facility] to [facility] Referrals: Jayden Marcum MD [Primary Care Provider] - - Critical Care Critical Care Time: No Attestation: On 11/27/21, the high probability of a clinically significant, sudden or life threatening deterioration of the following system(s) required my full and direct attention, intervention and personal management. The time I documented below is in addition to time spent performing reported procedures but includes the following listed in this critical care notation. Medical Decision Making - Dinesh Inquiry Pt receiving controlled substance: No Vital Signs: 11/27/21 15:47 11/27/21 16:31 11/27/21 17:03 Temperature 98.1 F Temperature Source Oral Pulse Rate 58 L 78 Pulse Rate [Left Radial] 67 Respiratory Rate 18 Blood Pressure 134/77 114/80 Blood Pressure [Right Arm] 129/91 H Blood Pressure Mean 96 87 Blood Pressure Mean [Right Arm] 103 02 Sat by Pulse Oximetry 100 96 96 Oxygen Delivery Method Room Air 11/27/21 17:32 11/27/21 18:31 Temperature Temperature Source Pulse Rate 65 62 Pulse Rate [Left Radial] Respiratory Rate Blood Pressure 57/39 L 113/94 H Blood Pressure [Right Arm] Blood Pressure Mean 45 98 Blood Pressure Mean [Right Arm] 02 Sat by Pulse Oximetry 98 98 Oxygen Delivery Method - Lab Data Lab Results 11/27/21 16:07: WBC 10.8, RBC 5.20, Hgb 15.3, Hct 46.5, MCV 89.3, MCH 29.4, MCHC 32.9, RDW 13.1, Plt Count 301, MPV 9.1, Neut % (Auto) 60.0, Lymph % (Auto) 31.7, Boyle % (Auto) 6.2, Eos % (Auto) 0.7, Baso % (Auto) 1.4, Neut # (Auto) 6.5, Lymph # (Auto) 3.4, Boyle # (Auto) 0.7, Eos # (Auto) 0.1, Baso # (Auto) 0.2 11/27/21 16:07: Sodium 140, Potassium 3.7, Chloride 105, Carbon Dioxide 25, Anion Gap 13.7, BUN 26 H, Creatinine 1.10 H, Estimated Creat Clear 116, Estimated GFR 56 L, Est GFR ( Amer) 68, Glucose 86, Calcium 8.7, Total Bilirubin 0.7, AST 31, ALT 25, Alkaline Phosphatase 127 H, Total Protein 8.4 H, Albumin 4.5, Globulin 3.9 H, Albumin/Globulin Ratio 1.2 11/27/21 17:45: Stool Occult Blood Positive A 11/27/21 17:57: Urine Color Yellow, Urine Appearance Clear, Urine pH 6.5, Ur Specific [place] 1.015, Urine Protein Trace, Urine Glucose (UA) Negative, Urine Ketones Negative, Urine Blood Negative, Urine Nitrate Positive, Urine Bilirubin Negative, Urine Urobilinogen 0.2, Ur Leukocyte Esterase Negative, Urine RBC Occasional, Urine WBC 5-10, Ur Squamous Epith Cells 3-5, Urine Bacteria 4+ Result diagrams: 11/27/21 16:07 11/27/21 16:07 Orders (Tests/
[2021-11-27 18:12] LABS: Microscopic, Urine URINE MICROSCOPIC (MICROSCOPIC)
[2021-11-27 18:14] LABS: Occult Blood,Stool Positive (Negative)
[2021-11-27 18:25] LABS: Appearance,Urine CLEAR (Clear); Bilirubin,Urine Negative (Negative); Blood, Urine Negative (Negative); Color,Urine YELLOW (Yellow); Glucose,Urine (UA) Negative (Negative); Ketones,Urine Negative (Negative); Leukocyte Esterase,Urine Negative (Negative); Nitrate,Urine POSITIVE (Negative); PH,Urine 6.5 (5.0-8.5); Protein,Urine TRACE (Negative); Specific Gravity, Urine 1.015 (1.005-1.030); Urobilinogen,Urine 0.2 EU/dl (0.2)
[2021-11-27 18:31] VITALS: BP 113/94; PULSE 62; O2SAT 98
[2021-11-27 18:39] LABS: Bacteria,Urine 4+ /lpf; RBC,Urine Occasional #/hpf (0-3)
--- NOTE | 2021-11-27 18:46 | PC.NURSE ---
called dr heller per er doctor dr lyman convention worker for dr arron lyman called er doctor
[2021-11-27 19:05] VITALS: BP 112/62; PULSE 78; RESP 17; TEMP 36.8; O2SAT 97
== END 2021-11-27 19:10 | disposition home or self-care (01) ==
PROVIDERS: Emergency Provider Emergency Medicine; PCP Internal Medicine Adolescent Medicine
DX: R19.7 Diarrhea, unspecified (principal); K62.5 Hemorrhage of anus and rectum; R10.13 Epigastric pain; K21.9 Gastro-esophageal reflux disease without esophagitis; F41.9 Anxiety disorder, unspecified; M79.7 Fibromyalgia; I10 Essential (primary) hypertension; E78.5 Hyperlipidemia, unspecified; E03.9 Hypothyroidism, unspecified; Z87.891 Personal history of nicotine dependence; Z79.899 Other long term (current) drug therapy
CPT/HCPCS: 74176; 80053; 81001; 82272; 85025; 87086; 96365; 96375; 99284; G0328; J2405

== ENCOUNTER → 2021-12-02 17:05 | Outpatient (CLI) | payer OTHER, SELFPAY ==
[2021-12-02 17:30] LABS: Adenovirus F 40/41, stool Not Detected (NotDetected); Astrovirus Not Detected (NotDetected); Campylobacter Not Detected (NotDetected); Clostridium Difficile A/B, PCR Not Detected (NotDetected); Cryptosporidium Not Detected (NotDetected); Cyclospora Cayetanesis Not Detected (NotDetected); Entamoeba histolytica Not Detected (NotDetected); Enteroaggregative E coli Not Detected (NotDetected); Enteropathogenic E coli Not Detected (NotDetected); Enterotoxigenic E coli Not Detected (NotDetected); Giardia lamblia Not Detected (NotDetected); Norovirus Not Detected (NotDetected); Plesimonas Shigalloides, PCR Not Detected (NotDetected); Rotavirus A Not Detected (NotDetected); Salmonella, PCR Not Detected (NotDetected); Sapovirus Not Detected (NotDetected); Shiga-like toxin E coli Not Detected (NotDetected); Shigella Enterovasive E coli Not Detected (NotDetected); Vibrio Cholerae Not Detected (NotDetected); Vibrio, PCR Not Detected (NotDetected); Yersinia Entercolitica, PCR Not Detected (NotDetected)
== END ==
PROVIDERS: PCP Internal Medicine Adolescent Medicine; Visit Provider Internal Medicine Adolescent Medicine
DX: R19.7 Diarrhea, unspecified (principal)
CPT/HCPCS: 87507

== ENCOUNTER → 2022-02-14 09:59 | Outpatient (CLI) | payer OTHER, SELFPAY ==
--- NOTE | 2022-02-14 10:04 | CT_ITS ---
FINAL REPORT TECHNIQUE: After the administration of oral and intravenous contrast, axial images were obtained through the abdomen and pelvis by computed tomography. The study was performed with techniques to keep radiation dose as low as reasonably achievable, (ALARA). Individual dose reduction techniques using automated exposure control or adjustment of mA and/or kV according to the patient's size were employed. CLINICAL HISTORY: ABD PAIN, UPPER ABD PAIN INTO RIGHT SIDE COMPARISON: 11/27/2021 FINDINGS: Abdomen: The lung bases are clear. The liver is normal in size and attenuation. The patient is status post cholecystectomy and gastric bypass surgery. The spleen is unremarkable. The adrenals are normal. The pancreas is unremarkable. The kidneys enhance appropriately. The aorta is normal in caliber. There is no free fluid or adenopathy. Pelvis: The appendix is not identified. Note is made of hysterectomy. The urinary bladder is unremarkable. There is no free fluid or adenopathy. IMPRESSION: No acute intra-abdominal process. Reviewed, Interpreted and Dictated by Paul Cordero III, MD Transcribed by [place] Authenticated and [facility]
== END ==
PROVIDERS: PCP Internal Medicine Adolescent Medicine; Visit Provider Internal Medicine Adolescent Medicine
DX: R10.84 Generalized abdominal pain (principal)
CPT/HCPCS: 74177; Q9967

== ENCOUNTER 2022-07-31 19:48 | Emergency (ER) | payer OTHER, SELFPAY ==
--- NOTE | 2022-07-31 19:46 | ECG_ITS ---
APPROVED REPORT Exam: Resting ECG HR:81 bpm ECG Measurements Heart Rate 81 AXES TN 146 P 53 QRSd 90 QRS 60 QT 352 T 56 QTc 389 Conclusion SINUS RHYTHM NORMAL ECG UNCONFIRMED REPORT Electronically signed by : Luciano Falk MD 08/01/2022 16:44:57
[2022-07-31 19:48] VITALS: BP 124/93; PULSE 91; RESP 18; TEMP 37.1; O2SAT 99; BMI 29.5
--- NOTE | 2022-07-31 20:07 | XR_ITS ---
PROCEDURE INFORMATION: Exam: XR Chest Exam date and time: 07/31/2022 8:08 PM Age: 37 years old Clinical indication: Sternal or substernal pain; Additional info: Chest pain TECHNIQUE: Imaging protocol: Radiologic exam of the chest. Views: 2 views. COMPARISON: CR XR CHEST 2V 07/15/2021 2:28 PM FINDINGS: Lungs: No acute airspace consolidation. No appreciable pulmonary edema. Stable appearance of right upper lobe pulmonary nodule compared with prior chest radiograph performed on 07/15/2021. Pleural spaces: No pleural effusion. No pneumothorax. Heart/Mediastinum: Cardiomediastinal silouhette is within normal limits. Bones/joints: Minor anterior vertebral body wedging in the lower thoracic spine, unchanged from prior exam. No evidence of acute osseous abnormality. IMPRESSION: 1. No evidence of acute process in the chest. 2. Additional chronic ancillary findings are unchanged from prior exam.
[2022-07-31 20:18] LABS: Basophils # 0.1 K/mm3 (0-0.2); Basophils % 1.7 % (0.1-2.0); Eosinophils # 0.2 K/mm3 (0.0-0.4); Eosinophils % 2.3 % (0.1-12.0); Hematocrit 42.6 % (37.0-47.0); Lymphocytes # 2.9 K/mm3 (0.7-4.5); Lymphocytes % 34.4 % (10-50); Mean Corpuscular HGB Conc 32.9 g/dL (31.8-35.4); Mean Corpuscular Hemoglobin 27.5 pg (27.0-31.2); Mean Corpuscular Volume 83.4 fl (81-99); Mean Platelet Volume 8.7 fl (7.4-10.4); Monocytes # 0.5 K/mm3 (0.1-1.0); Monocytes % 6.4 % (1.7-9.3); Neutrophils # 4.6 K/mm3 (1.8-7.8); Neutrophils % 55.3 % (37.0-80.0); Platelet Count 298 K/mm3 (142-424); Red Blood Count 5.11 M/mm3 (4.20-5.40); Red Cell Distribution Width 14.7 % (11.5-17.5); White Blood Count 8.4 K/mm3 (4.8-10.8)
[2022-07-31 20:19] LABS: Coronavirus 19, PCR Not Detected (NotDetected); Influenza A, PCR Not Detected (NotDetected); Influenza B, PCR Not Detected (NotDetected)
[2022-07-31 20:25] LABS: Alanine Aminotransferase 19 U/L (12-78); Alkaline Phosphatase 187 U/L (38-126); Anion Gap 10.8 mEq/L (5-15); Aspartate Amino Transferase 33 U/L (14-36); Bilirubin,Direct 0.1 mg/dl (0.0-0.4); Bilirubin,Indirect 0.2 mg/dL (0.0-0.9); Bilirubin,Total 0.3 mg/dl (0.2-1.3); Bilirubin,Unconjugated 0.2 mg/dL (0.0-1.1); Blood Urea Nitrogen 8 mg/dl (7-17); Carbon Dioxide 25 mmol/L (22.0-30.0); Chloride 108 mmol/L (98-107); Creatinine Clearance Estimated 137 mL/min (50-200); Estimated Glomerular Filt Rate 80 ml/min (>60); GFR (African American) 97 ML/MIN (>60); Glucose 90 mg/dl (74-100); Potassium 3.8 mmoL/L (3.5-5.1); Sodium 140 mmol/L (136-145); Total Protein,Serum 7.1 g/dl (6.3-8.2)
[2022-07-31 20:37] LABS: Troponin I < 0.01 ng/ml (0.00-0.034)
--- NOTE | 2022-07-31 22:00 | HMH.EDCP ---
Discharge Plan Disposition Patient Disposition: Home, Self-Care Prescriptions Prescriptions: New prednisone [prednisone] 20 mg tablet 20 mg PO BID Qty: 10 0RF No Action propranolol 40 mg tablet 40 mg PO DAILY alprazolam 0.5 mg tablet 0.5 mg PO TIDP PRN (Reason: Anxiety) Qty: 30 Label Comments: TAKE 1 TABLET BY MOUTH EVERY 8 HOURS NEEDED FOR ANXIETY MAY CAUSEDROWSINESS pregabalin 200 mg capsule 200 mg PO BID atorvastatin 40 mg tablet See Rx Instructions .ROUTE .COMPLEX Qty: 90 3RF Dose Instruction: TAKE 1 TABLET DAILY Rx Instructions: TAKE 1 TABLET DAILY buspirone 10 MG tablet 10 mg PO BID Referrals Follow up/Referrals: Luciano Falk MD [Primary Care Provider] - See instructions Clinical Impressions Clinical Impression: Atypical chest pain Instructions Patient Instructions: DI for Atypical Chest Pain Discharge ED Provider: Connor Soto Chest Pain HPI General Chief Complaint: Chest Pain Stated Complaint: chest discomfort Time Seen by Provider: 07/31/22 22:00 Mode of Arrival: Family Vehicle Source of Information: Patient and Medical Record Limitations: No Limitations Description of Symptoms (Recalled from ER Triage Doc. by RN): 37 yo female brought in by EMS for complaints of chest discomfort that exacerbated by shopping at [employer] and walking the length of the parking lot. She stated that she has had discomfort in her chest that has radiated up into her left jaw for 3 days. Further states it comes and goes and only eases with decrease in activity. 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 Patient further elaborates that she has received all of her Immunizations: covid,flu,pneumonia, but has had covid contact and fever in the last couple of weeks. A&ox4. VSS. History of Present Illness HPI narrative: pt with chest pain on lt side with rad to back with hx of viral illness about 3 weeks ago - worse with insp and helped with leaning forward - no fever/rash or trauma and no sig cough - has hx of dvt and pul emboli and sticky blood - MD complaint: chest pain Onset (ago): hour(s) Duration: intermittent Activity at onset: light activity Pain location: left chest Severity: moderate Quality: sharp Context: recent illness and history of DVT/PE Risk Factors for CAD: Hypertension, Family Hx of CAD and Smoking Treatments prior to or on arrival for Cardiac Chest Pain: none SHELBI Score for Non-Stemi Age of Patient: 30-39 years old Heart Rate: 90-109 bpm Systolic Blood Pressure: 120-139 mmhg Serum Creatinine: 0.80-1.19 mg/dl CHF [place] Class: I-No CHF Other Risk Factors: None Non-Stemi Risk Score: 64 Related Data On Oral Contraceptives: No Home Medications Medication Instructions Recorded Confirmed alprazolam 0.5 mg tablet 0.5 mg PO TIDP PRN Anxiety #30 tabs 01/12/19 09/05/21 buspirone 10 mg tablet 10 mg PO BID Anxiety 07/26/20 09/05/21 pregabalin 200 mg capsule 200 mg PO BID RLS 02/05/21 09/05/21 propranolol 40 mg tablet 40 mg PO DAILY htn 08/01/21 09/05/21 Previous Rx's Medication Instructions Recorded atorvastatin 40 mg tablet See Rx Instructions .Route 06/23/22 .COMPLEX #90 tabs prednisone 20 mg tablet 20 mg PO BID #10 tabs 08/01/22 Allergies Allergy/AdvReac Type Severity Reaction Status Date / Time hydromorphone [From Dilaudid] Allergy Intermediate Verified 09/05/21 11:19 NSAIDS (Non-Steroidal Allergy Unknown Verified 09/05/21 11:19 Anti-Inflamma lactose AdvReac Mild Nausea Verified 09/05/21 11:19 cilantro Allergy Severe throat and Uncoded 07/26/21 13:23 tongue swells, hives on face PFSH [facility] Disclaimer: The information contained in this section may have been updated after the patient was seen, as this information can be updated by other users. Medical History (Updated 08/01/22 @ 01:11 by Connor Soto MD) History of pul
--- NOTE | 2022-07-31 22:05 | CT_ITS ---
PROCEDURE INFORMATION: Exam: CTA Chest With Contrast Exam date and time: 07/31/2022 11:11 PM Age: 37 years old Clinical indication: Shortness of breath; Additional info: History of dvt TECHNIQUE: Imaging protocol: Computed tomographic angiography of the chest with contrast. 3D rendering (Not supervised by radiologist): MIP and/or 3D reconstructed images were created by the technologist. Radiation optimization: All CT scans at this facility use at least one of these dose optimization techniques: automated exposure control; mA and/or kV adjustment per patient size (includes targeted exams where dose is matched to clinical indication); or iterative reconstruction. Contrast material: ISOVUE; Contrast volume: 70 ml; Contrast route: INTRAVENOUS (IV); COMPARISON: [facility] CT angio chest 05/28/2018 8:56 AM FINDINGS: Pulmonary arteries: No pulmonary emboli. Aorta: Aorta is normal in caliber. Lungs: No acute airspace consolidation. No appreciable pulmonary edema. Calcified pulmonary granuloma in the right upper lobe compatible with chronic sequelae of prior granulomatous disease, unchanged. Noncalcified 4 mm pulmonary nodule in the left lung apex, unchanged since at least 05/28/2018 CT and most likely benign. No further follow-up recommended. (Reference: Jermaine) Pleural spaces: No pneumothorax. No pleural effusion. Heart: No cardiomegaly. No significant pericardial effusion. Lymph nodes: No enlarged lymph nodes by CT criteria. Bones/joints: No acute osseous abnormality. Soft tissues: Unremarkable. IMPRESSION: 1. No evidence of pulmonary embolism or other acute cardiopulmonary process. 2. Additional chronic ancillary findings are unchanged from prior exam, as detailed above. REFERENCES: Jermaine H, et al. Guidelines for Management of Incidental Pulmonary Nodules Detected on CT Images: From the Fleischner Society 2017. Radiology. 2017;284(1):228-243.
[2022-07-31 22:32] LABS: C-Reactive Protein 4.4 mg/L (0-4)
[2022-07-31 22:45] LABS: Troponin I < 0.01 ng/ml (0.00-0.034)
[2022-07-31 23:18] LABS: Prothrombin Time 10.8 seconds (10.1-12.5)
[2022-07-31 23:43] LABS: Erythrocyte Sedimentation Rate 24 mm/hr (0-20)
[2022-08-01 01:13] VITALS: BP 112/78; PULSE 88; RESP 18; TEMP 36.7; O2SAT 99
[2022-08-02 14:46] LABS: Homocyst(e)ine 12.6 umol/L (0.0-14.5)
[2022-08-07 13:09] LABS: Anti-Thrombin III Antigen 68 % (72-124); Antithrombin Activity 85 % (75-135); Factor VIII Activity 135 % (56-140); Protein C Functional 94 % (73-180); Protein S, Free 66 % (61-136); Protein S, Total 72 % (60-150); Protein S-Functional 67 % (63-140)
[2022-08-13 04:57] LABS: Protein C Antigen 102 % (60-150)
== END 2022-08-01 01:42 | disposition home or self-care (01) ==
PROVIDERS: Emergency Provider Emergency Medicine; PCP Internal Medicine Adolescent Medicine
DX: R07.9 Chest pain, unspecified (principal); R68.84 Jaw pain; M54.9 Dorsalgia, unspecified; I47.1 Supraventricular tachycardia; Z20.822 Contact with and (suspected) exposure to COVID-19; R01.1 Cardiac murmur, unspecified; I48.91 Unspecified atrial fibrillation; K21.9 Gastro-esophageal reflux disease without esophagitis; E78.5 Hyperlipidemia, unspecified; M19.90 Unspecified osteoarthritis, unspecified site; G62.9 Polyneuropathy, unspecified; J90 Pleural effusion, not elsewhere classified; F32.A Depression, unspecified; F41.9 Anxiety disorder, unspecified; Z79.52 Long term (current) use of systemic steroids; Z79.899 Other long term (current) drug therapy; Z88.5 Allergy status to narcotic agent; Z88.6 Allergy status to analgesic agent; Z88.8 Allergy status to other drugs, medicaments and biological substances; Z86.2 Personal history of diseases of the blood and blood-forming organs and certain disorders involving the immune mechanism; Z86.718 Personal history of other venous thrombosis and embolism; Z86.711 Personal history of pulmonary embolism; Z87.891 Personal history of nicotine dependence; Z81.2 Family history of tobacco abuse and dependence; Z82.49 Family history of ischemic heart disease and other diseases of the circulatory system
CPT/HCPCS: 71046; 71275; 80048; 80076; 81241; 83090; 83880; 84484; 85025; 85240; 85300; 85301; 85302; 85305; 85306; 85610; 85651; 86140; 86148; 93005; 96361; 96374; 96375; 99285; C9803; Q9967; U0003; U0005

== ENCOUNTER → 2022-08-07 13:49 | Outpatient (POV) | payer OTHER, SELFPAY ==
[2022-08-07 14:25] VITALS: BP 130/80; PULSE 78; RESP 18; O2SAT 97; BMI 29.5
--- NOTE | 2022-08-07 15:56 | EXP.PAIN.OV ---
HPI Data of Consult Patient: new to practice Consult date: 08/07/22 Requesting Physician: GIA Orozco Primary Care Provider: Luciano Falk MD Consult Narrative Reason for consult: LBP. right shoulder pain, left ankle pain History of present illness: Ms. Macias is a 37 year old female who presents today as a new patient. Patient is referred by Dr. Falk. Thank you for the referral. 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 She is more worried about her back pain today. According to the pt, she had a discectomy and laminectomy in 2016 when she was living in [facility]. She had some relief after that procedure. She moved to [place] in 2019. More recently, she has been having some increasing low back pain. She wanted to see NSx but was advised to see pain management first. She has not had any recent PT or lumbar imaging. For her shoulder pain, she says that she has been dislocating her right shoulder almost every morning that she wakes up. For pain, she takes OTCmeds. She is also prescribed pregabalin 200mg BID by PCP for her fibromyalgia. She had a bariatric surgery in the past so she cannot take any NSAIDs. Dinesh [id number], MEQ 0. CC: GIA Orozco [facility] Disclaimer: The information contained in this section may have been updated after the patient was seen, as this information can be updated by other users. Medical History (Updated 08/07/22 @ 16:03 by GIA Orozco) Afib Anxiety Arrhythmia Asthma DVT (deep venous thrombosis) GERD (gastroesophageal reflux disease) Heart murmur History of left heart catheterization History of pulmonary embolism HLD (hyperlipidemia) HTN (hypertension) Migraine Osteoarthritis Pulmonary embolism SVT (supraventricular tachycardia) Surgical History (Updated 08/07/22 @ 14:45 by Sharmin Coyne RN) H/O foot surgery H/O knee surgery History of esophageal surgery History of lumpectomy of left breast Previous back surgery Social History (Updated 08/07/22 @ 14:45 by Sharmin Coyne RN) Smoking Status: Former smoker pack-years: 12 second hand exposure: No alcohol intake: never substance use type: marijuana current occupational status: unemployed Travel in the last 8 weeks: None household members: spouse housing: house number of children: 0 current occupational exposures/hazards: No caffeine: No Review of Systems Review of Systems Review of systems (narrative): Review of Systems: General: No recent weight changes, no fever, no sleep disturbances Respiratory: No cough, no shortness of air, no recurring pulmonary infections Cardiovascular/peripheral vascular: No chest pain, no palpitations, no edema, no shortness of breath Gastrointestinal: No new onset incontinence, normal bowel movements reported Genitourinary: No new onset incontinence Musculoskeletal: Right shoulder pain, low back pain, left ankle pain Psychiatric: [Normal mood/affect] Neurological: [Denies weakness in extremities], [denies balance issues] Meds Home Medications and Allergies Home Medications Medication Instructions Recorded Confirmed Type alprazolam 0.5 mg tablet 0.5 mg PO TIDP PRN Anxiety #30 tabs 01/12/19 08/07/22 History buspirone 10 mg tablet 10 mg PO BID Anxiety 07/26/20 08/07/22 History pregabalin 200 mg capsule 200 mg PO BID RLS 02/05/21 08/07/22 History propranolol 40 mg tablet 40 mg PO DAILY htn 08/01/21 08/07/22 History atorvastatin 40 mg tablet See Rx Instructions .Route 08/07/22 08/07/22 History .COMPLEX Cholesterol prednisone 20 mg tablet 20 mg PO BID . 08/07/22 08/07/22 History New Prescriptions to Start Prescriptions: Allergies Allergy/AdvReac Type Severity Reaction Status Date / Time hydromorphone [From Dilaudid] Allergy Intermediate Verified 09/05/21 11:19 NSAIDS (Non-Steroidal Allergy Unknown Verified 09/05/21 11:19 Anti-Inflamma lactose AdvReac Mild Nausea Verified
== END ==
PROVIDERS: PCP Internal Medicine Adolescent Medicine; Visit Provider Student in an Organized Health Care Education/Training Program
DX: M19.072 Primary osteoarthritis, left ankle and foot; M54.50 Low back pain, unspecified; M25.511 Pain in right shoulder; Q79.6 Ehlers-Danlos syndromes
CPT/HCPCS: 99202; G0463

== ENCOUNTER → 2022-08-19 16:51 | Outpatient (CLI) | payer OTHER, SELFPAY ==
--- NOTE | 2022-08-19 16:55 | MR_ITS ---
PROCEDURE INFORMATION: Exam: MR Lumbar Spine Without Contrast Exam date and time: 08/19/2022 5:07 PM Age: 37 years old Clinical indication: Low back pain; Additional info: Lbp. Numbness down bilateral legs and feet. No injury. X few months TECHNIQUE: Imaging protocol: Magnetic resonance imaging of the lumbar spine without contrast. COMPARISON: CR XR LUMBAR SPINE MIN 4V 05/01/2020 3:02 PM FINDINGS: Bones/joints: Unremarkable. No fracture. Normal alignment. Spinal cord: Visualized cord, conus medullaris and cauda equina are unremarkable without compression. L1-L2: No significant disc disease. No significant spinal canal stenosis. There is a 7 mm right nerve root sheath cyst producing moderate to severe stenosis of the right L1 neural exit foramen. L2-L3: No significant disc disease. No significant spinal canal stenosis. No neural foraminal stenosis. L3-L4: There is mild disc desiccation and slight diffuse disc bulge as well as mild bilateral facet arthropathy. These findings produce mild central canal stenosis and mild narrowing of the bilateral neural exit foramina. L4-L5: There is slight left eccentric disc bulge and moderate bilateral facet arthropathy producing mild central canal stenosis and moderate left neural foramen narrowing. L5-S1: There is disc desiccation with severe disc space narrowing, diffuse disc bulge and mild uncovertebral spurring as well as evidence of prior L5 laminectomy. There is moderate bilateral L5 neural foramen narrowing and mild canal stenosis. Soft tissues: Unremarkable. IMPRESSION: 1. 7 mm right nerve root sheath cyst producing moderate to severe stenosis of the right L1 neural exit foramen 2. Severe degenerative disc changes at the lumbosacral junction producing moderate narrowing of the bilateral L5 neural exit foramina. 3. Mild degenerative changes at L3-L4 and L4-L5 as described
== END ==
PROVIDERS: PCP Internal Medicine Adolescent Medicine; Visit Provider Nurse Practitioner Family
DX: M54.50 Low back pain, unspecified (principal); M25.511 Pain in right shoulder; M25.572 Pain in left ankle and joints of left foot
CPT/HCPCS: 72148; 76376

== ENCOUNTER → 2022-08-25 14:18 | Outpatient (POV) | payer OTHER, SELFPAY ==
--- NOTE | 2022-08-25 15:30 | EXP.PAIN.SOA ---
[facility] Pain Management SOAP Note Subjective:: Patient is a pleasant 37-year-old female who presents today for lumbar MRI follow-up. We are currently treating the patient for chronic low back pain, right shoulder pain, osteoarthritis of the left ankle and foot, chronic Effler's Danlos disease. Today the patient rates her pain a 7 out of 10. Patient denies any new trauma or injury. Patient denies any change to location or type of pain she experiences. Patient states she continues to experience chronic pain in her low back with radiating symptoms. Patient has had 2 prior back surgeries including a laminectomy and discectomy from Dr. Hernandez. Patient states she has had multiple injections in the past and a facility in [place] approximately . Patient states she did not get significant improvement following these injections and is not currently interested in additional injections. Patient is currently prescribed pregabalin 200 mg twice a day from her primary care doctor's office. Patient denies any side effects from this medication. She states this medication helps. Patient was also recently given a 2-day dose of Tylenol [address] Soto's office. Her Dinesh is [id number]. Its been reviewed and appropriate. Review of Systems: General: No recent weight changes, no fever, no sleep disturbances Respiratory: No cough, no shortness of air, no recurring pulmonary infections Cardiovascular/peripheral vascular: No chest pain, no palpitations, no edema, no shortness of breath Gastrointestinal: No new onset incontinence, normal bowel movements reported Genitourinary: No new onset incontinence Musculoskeletal: Low back pain Psychiatric: [Normal mood/affect] Neurological: [Denies weakness in extremities], [denies balance issues] Objective:: Physical Exam: General: Alert and oriented x3, no acute distress, pleasant and cooperative Lungs: Respirations even and unlabored, symmetrical chest expansion Eyes: PERRL Musculoskeletal: Flexion and extension of lumbar [spine] somewhat guarded secondary to pain, [antalgic gait noted] Neurological: Speech clear, no gross sensory deficit PROCEDURE INFORMATION: Exam: MR Lumbar Spine Without Contrast Exam date and time: 08/19/2022 5:07 PM Age: 37 years old Clinical indication: Low back pain; Additional info: Lbp. Numbness down bilateral legs and feet. No injury. X few months TECHNIQUE: Imaging protocol: Magnetic resonance imaging of the lumbar spine without contrast. COMPARISON: CR XR LUMBAR SPINE MIN 4V 05/01/2020 3:02 PM FINDINGS: Bones/joints: Unremarkable. No fracture. Normal alignment. Spinal cord: Visualized cord, conus medullaris and cauda equina are unremarkable without compression. L1-L2:? No significant disc disease. No significant spinal canal stenosis.? There is a 7 mm right nerve root sheath cyst producing moderate to severe stenosis of the right L1 neural exit foramen. L2-L3:? No significant disc disease. No significant spinal canal stenosis. No neural foraminal stenosis. L3-L4:? There is mild disc desiccation and slight diffuse disc bulge as well as mild bilateral facet arthropathy.? These findings produce mild central canal stenosis and mild narrowing of the bilateral neural exit foramina. L4-L5:? There is slight left eccentric disc bulge and moderate bilateral facet arthropathy producing mild central canal stenosis and moderate left neural foramen narrowing.? L5-S1:? There is disc desiccation with severe disc space narrowing, diffuse disc bulge and mild uncovertebral spurring as well as evidence of prior L5 laminectomy.? There is moderate bilateral L5 neural foramen narrowing and mild canal stenosis. Soft tissues: Unremarkable. IMPRESSION: 1. 7 mm right nerve root sheath cyst producing moderate to severe stenosis of the right L1 neural exit foramen 2. Severe degenerative disc changes at the lumbosacral junction producing moderate narrowing of the bilateral L5 neural exit foramina
[2022-08-25 15:35] VITALS: BP 126/69; PULSE 87; RESP 18; O2SAT 97; BMI 31.7
== END ==
PROVIDERS: Visit Provider Nurse Practitioner Family
DX: M19.072 Primary osteoarthritis, left ankle and foot (principal); M54.50 Low back pain, unspecified; G89.29 Other chronic pain; M25.511 Pain in right shoulder; Q79.60 Ehlers-Danlos syndrome, unspecified
CPT/HCPCS: 99212; G0463

== ENCOUNTER → 2022-08-26 11:22 | Outpatient (CLI) | payer OTHER, SELFPAY ==
[2022-08-26 17:13] LABS: Chloride 104 mmol/L (98-107); Potassium 3.9 mmoL/L (3.5-5.1); Sodium 144 mmol/L (136-145)
[2022-08-26 17:16] LABS: Anion Gap 12.9 mEq/L (5-15); Blood Urea Nitrogen 10 mg/dl (7-17); Calcium 9.3 mg/dl (8.4-10.2); Carbon Dioxide 31 mmol/L (22.0-30.0); Estimated Glomerular Filt Rate 80 ml/min (>60); GFR (African American) 97 ML/MIN (>60); Glucose 88 mg/dl (74-100)
== END ==
PROVIDERS: Visit Provider Nurse Practitioner
DX: R42 Dizziness and giddiness (principal)
CPT/HCPCS: 36415; 80048

== ENCOUNTER → 2022-08-26 13:02 | Outpatient (CLI) | payer OTHER, SELFPAY ==
--- NOTE | 2022-08-26 13:06 | CA_ITS ---
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 Matt, MADYSON, RVS Ht: 5 ft 9 in Wt: 219lbs BSA: 2.15 BP: 95/60 mmHg Indications: SOA, Afib, LEONORA, Obesity, Ex-smoker, Murmur, HTN, HLD 2D Dimensions IVSd 0.79 cm LVEF (Visual) 54.90 % PWd 0.74 cm LA Volume 54.30 mL LVDd 5.26 cm LA Volume Index 24.70 mL/m2 (M/F) 16-34 LVDs 3.75 cm Aortic Root 3.00 cm Left Atrium 3.69 cm LVOT 1.97 cm (M/F) 1.5-2.5 M-Mode Dimensions LA Diam 3.62 cm (1.9-4.0) Ao Diam 3.05 cm (2.0-3.7) EPSs 0.72 cm TAPSE 1.75 (<1.7) LV Diastology E Decel Time 210.00 (160-240 msec) E/A Ratio 1.17 MED E' 11.00 (< 7 cm/sec) MED A' 7.70 cm/s E'/MED E' Ratio 6.57 (>14) LAT E' 14.00 (<10 cm/sec) LAT A' 8.20 cm/s E/LAT E' Ratio 5.16 (>14) Aortic Valve LVOT Max 94.00 (70-110 cm/s) LVOT VTI 21.13 cm AoV Peak Cristian. 114.00 (50-130 cm/s) AO Peak GR. 5.20 mmHg AO Mean GR. 2.60 (<5 mmHg) AO VTI 25.79 (18-25 cm) SAHRA (VTI) 2.50 (2.5-4.5 cm2) Mitral Valve MV A Velocity 62.00 (40-130 cm/s) E/A Ratio 1.17 MV Decel. Time 210.00 (160-240 ms) MV PHT 63.00 ms Pulmonary Valve PV Peak Velocity 79.00 (50-150 cm/s) Tricuspid Valve TR P. Velocity 216.00 cm/s RAP Estimate 10.00 mmHg RVSP 28.60 mmHg Left Ventricle Left atrium is normal size left ventricle is normal size, estimated ejection fraction 55% with no regional wall motion abnormality, diastolic parameters are within normal range. Right Ventricle Right atrium and right ventricle are normal size and contractility. Aortic Valve Aortic valve is grossly normal there is no aortic stenosis or aortic insufficiency. Mitral Valve Mitral valve is grossly normal, there is trace mitral regurgitation. Tricuspid Valve Tricuspid valve grossly normal, there is trace tricuspid regurgitation, tricuspid regurgitation jet velocity is inadequate for calculation of the right ventricular systolic pressure. Pulmonic Valve Pulmonic valve is poorly visualized. Great Vessels Aortic root is normal size. Inferior vena cava is poorly visualized. Pericardium No significant pericardial effusion noted. Conclusion 1. Normal left ventricular size preserved left ventricular systolic function, estimated ejection fraction 45 with no regional wall motion abnormality, diastolic parameters are within normal range. 2. Trace mitral and tricuspid regurgitation. 3. No significant pericardial effusion noted. 4. Inferior vena cava is poorly visualized. Electronically signed by : Derek Crespo MD 08/27/2022 12:23:40
== END ==
PROVIDERS: PCP Internal Medicine Adolescent Medicine; Visit Provider Nurse Practitioner Family
DX: R06.09 Other forms of dyspnea (principal); R07.89 Other chest pain; R60.9 Edema, unspecified; R94.30 Abnormal result of cardiovascular function study, unspecified
CPT/HCPCS: 93306

== ENCOUNTER → 2022-08-27 11:22 | Outpatient (CLI) | payer OTHER, SELFPAY | PROVIDERS: Visit Provider Nurse Practitioner | DX: R07.9 Chest pain, unspecified (principal); R06.00 Dyspnea, unspecified ==

== ENCOUNTER → 2022-09-10 16:08 | Outpatient (CLI) | payer OTHER, SELFPAY ==
--- NOTE | 2022-09-10 16:10 | MM_ITS ---
PROCEDURE INFORMATION: Exam: MG Bilateral Screening 3D Mammography Exam date and time: 09/10/2022 4:03 PM Age: 37 years old Clinical indication: Screening examination TECHNIQUE: Imaging protocol: Bilateral Screening tomosynthesis and 2D mammography including computer-aided detection (CAD) when performed. COMPARISON: 1. MG MM DIG SCREENING MAMM BI W/CAD 08/12/2021 4:47 PM 2. MG MM DIG SCREENING MAMM BI W/CAD 08/06/2020 3:24 PM FINDINGS: MAMMOGRAPHY: Breast composition: The breasts are almost entirely fatty. Mass: None. Architectural distortion: None. Calcifications: No suspicious calcifications. Asymmetric density: None. Skin thickening: None. Axillary adenopathy: None. IMPRESSION: No mammographic evidence of malignancy. Annual screening is recommended unless otherwise clinically indicated. ASSESSMENT: BI-RADS Category 1: Negative
[2022-09-10 16:37] LABS: Microscopic, Urine URINE MICROSCOPIC (MICROSCOPIC)
[2022-09-10 17:53] LABS: Basophils # 0.1 K/mm3 (0-0.2); Basophils % 0.8 % (0.1-2.0); Eosinophils # 0.2 K/mm3 (0.0-0.4); Eosinophils % 1.5 % (0.1-12.0); Hematocrit 42.4 % (37.0-47.0); Hemoglobin 13.1 g/dL (12.2-16.2); Lymphocytes # 2.2 K/mm3 (0.7-4.5); Lymphocytes % 22.4 % (10-50); Mean Corpuscular Hemoglobin 26.7 pg (27.0-31.2); Mean Corpuscular Volume 86.2 fl (81-99); Mean Platelet Volume 8.9 fl (7.4-10.4); Monocytes # 0.5 K/mm3 (0.1-1.0); Monocytes % 4.8 % (1.7-9.3); Neutrophils % 70.5 % (37.0-80.0); Platelet Count 328 K/mm3 (142-424); Red Blood Count 4.92 M/mm3 (4.20-5.40); Red Cell Distribution Width 14.4 % (11.5-17.5)
[2022-09-10 18:25] LABS: Alanine Aminotransferase 27 U/L (12-78); Albumin Level 4.7 g/dl (3.5-5.0); Albumin/Globulin Ratio 1.5 (1.1-1.8); Alkaline Phosphatase 141 U/L (38-126); Anion Gap 14.2 mEq/L (5-15); Aspartate Amino Transferase 42 U/L (14-36); Bilirubin,Total 0.4 mg/dl (0.2-1.3); Blood Urea Nitrogen 21 mg/dl (7-17); Carbon Dioxide 28 mmol/L (22.0-30.0); Chloride 101 mmol/L (98-107); Estimated Glomerular Filt Rate 56 ml/min (>60); GFR (African American) 67 ML/MIN (>60); Globulin 3.2 g/dL (1.3-3.2); Glucose 73 mg/dl (74-100); Phosphorous 5.1 mg/dl (2.5-4.5); Potassium 4.2 mmoL/L (3.5-5.1); Sodium 139 mmol/L (136-145); Total Protein,Serum 7.9 g/dl (6.3-8.2)
[2022-09-10 18:42] LABS: 25-OH Vitamin D, Total 46.1 ng/mL (30-100); Free T4 (Free Thyroxine) 1.22 ng/dl (0.78-2.19)
[2022-09-10 20:45] LABS: Iron 37 ug/dL (37-170)
[2022-09-10 21:00] LABS: Total Iron Binding Capacity 315 ug/dL (265-497)
[2022-09-10 21:22] LABS: Ferritin 21.9 ng/ml (6.24-137)
[2022-09-10 22:04] LABS: Appearance,Urine CLEAR (Clear); Bilirubin,Urine Negative (Negative); Blood, Urine TRACE-I (Negative); Color,Urine YELLOW (Yellow); Glucose,Urine (UA) Negative (Negative); Ketones,Urine Negative (Negative); Leukocyte Esterase,Urine Negative (Negative); Nitrate,Urine Negative (Negative); Protein,Urine Negative (Negative); Urobilinogen,Urine 0.2 EU/dl (0.2)
[2022-09-10 23:07] LABS: Hyaline Casts,Urine Occasional #/lpf (0)
[2022-09-13 08:13] LABS: Zinc 66 ug/dL (44-115)
[2022-09-14 09:09] LABS: Vitamin B1 148.4 nmol/L (66.5-200.0)
[2022-09-14 16:58] LABS: Methylmalonic Acid 424 nmol/L (0-378)
[2022-09-16 16:43] LABS: Selenium 181 ug/L (100-340)
[2022-09-17 11:58] LABS: Vitamin A 41.1 ug/dL (18.9-57.3); Vitamin E Alpha Tocopherol 9.7 mg/L (5.9-19.4)
== END ==
LOC: RAD 16:08
PROVIDERS: Nurse Practitioner; Physician Assistant; PCP Internal Medicine Adolescent Medicine; Visit Provider Internal Medicine Adolescent Medicine
DX: R60.9 Edema, unspecified (principal); Z12.31 Encounter for screening mammogram for malignant neoplasm of breast
CPT/HCPCS: 36415; 77063; 77067; 80053; 81001; 82131; 82306; 82525; 82728; 82746; 83540; 83550; 83735; 84100; 84255; 84425; 84439; 84443; 84446; 84590; 84630; 85025

== ENCOUNTER → 2022-10-29 14:21 | Outpatient (POV) | payer OTHER, SELFPAY ==
[2022-10-29 15:10] VITALS: BP 89/58; PULSE 75; RESP 20; BMI 29.5
--- NOTE | 2022-10-29 15:14 | EXP.PAIN.SOA ---
[facility] Pain Management SOAP Note Subjective:: Patient is a pleasant 37-year-old female who presents today for follow-up. We are currently treating the patient for chronic low back pain, right shoulder pain, osteoarthritis left ankle and foot, chronic Effler's Danlos disease. Today she rates her pain a 7 out of 10. Patient denies any new trauma or injury. Patient denies any change to location or type of pain she experiences she does states she continues to have significant pain in her low back that runs down her lower extremities as well as shoulder pain. Patient has had 2 prior back surgeries including a laminectomy and discectomy. She has had multiple injections in the past however these did not provide significant relief. She is also tried oral medications such as rspw-drk-sjytkcn Tylenol and ibuprofen, heat and ice and ikwb-pyo-xbscncp topicals with no additional relief. Patient has had physical therapy in the past however this aggravated her symptoms. She is prescribed pregabalin 200 mg twice a day and alprazolam 0.5 mg 3 times a day from her primary care doctor. Patient denies any side effects from this medication. At her last visit we did discuss that she may be a beneficial candidate for a spinal cord stimulator trial. She was given educational handouts at that visit and she states she would like to proceed forward with this plan of care. Her Dinesh is [id number]. Its been reviewed and appropriate. Review of Systems: General: No recent weight changes, no fever, no sleep disturbances Respiratory: No cough, no shortness of air, no recurring pulmonary infections Cardiovascular/peripheral vascular: No chest pain, no palpitations, no edema, no shortness of breath Gastrointestinal: No new onset incontinence, normal bowel movements reported Genitourinary: No new onset incontinence Musculoskeletal: Low back pain, leg pain Psychiatric: [Normal mood/affect] Neurological: [Denies weakness in extremities], [denies balance issues] Objective:: Physical Exam: General: Alert and oriented x3, no acute distress, pleasant and cooperative Lungs: Respirations even and unlabored, symmetrical chest expansion Eyes: PERRL Musculoskeletal: Flexion and extension of lumbar [spine] somewhat guarded secondary to pain, [antalgic gait noted] Neurological: Speech clear, no gross sensory deficit Assessment:: Chronic low back pain with lumbar radiculopathy symptoms, right shoulder pain, osteoarthritis left ankle and foot, chronic effleurage Danlos disease Plan:: Patient continues to experience significant pain in her low back and legs with limited range of motion. I have discussed the spinal cord stimulator trial with her going back over the risk and benefits and she would like to proceed forward with this plan of care. I will order a psychiatric evaluation at today's visit. I have counseled the patient that if she is deemed an appropriate candidate we will proceed forward with the spinal cord stimulator trial. Patient has been instructed to contact the clinic with any concerns before the next appointment. Dr. Jung has reviewed this note and agrees with this plan of care. This note was dictated using voice recognition software and make contain errors or omissions. [facility] Disclaimer: The information contained in this section may have been updated after the patient was seen, as this information can be updated by other users. Medical History Afib Anxiety Arrhythmia Asthma DVT (deep venous thrombosis) Edema Elevated left ventricular end-diastolic pressure (LVEDP) GERD (gastroesophageal reflux disease) Heart murmur History of left heart catheterization History of pulmonary embolism HLD (hyperlipidemia) HTN (hypertension) Migraine LEONORA (obstructive sleep apnea) Osteoarthritis Pulmonary embolism SVT (supraventricular tachycardia) Surgical History H/O foot surge
== END ==
PROVIDERS: PCP Internal Medicine Adolescent Medicine; Visit Provider Nurse Practitioner Family
DX: M54.16 Radiculopathy, lumbar region (principal); M54.50 Low back pain, unspecified; M25.511 Pain in right shoulder; M19.072 Primary osteoarthritis, left ankle and foot; G89.29 Other chronic pain; Q79.60 Ehlers-Danlos syndrome, unspecified
CPT/HCPCS: 99212; G0463

== ENCOUNTER 2022-11-08 14:59 | Emergency (ER) | payer OTHER, SELFPAY ==
[2022-11-08 15:00] VITALS: BP 165/90; PULSE 93; RESP 14; TEMP 36.9; O2SAT 98; BMI 29.5
--- NOTE | 2022-11-08 15:03 | PC.NURSE ---
EKG machine not working, RT notified and have brought down another machine and is obtaining EKG at this time
--- NOTE | 2022-11-08 15:13 | ECG_ITS ---
APPROVED REPORT Exam: Resting ECG HR:94 bpm ECG Measurements Heart Rate 94 AXES WI 141 P 56 QRSd 98 QRS 73 QT 352 T 56 QTc 404 Conclusion SINUS RHYTHM Normal ECG UNCONFIRMED REPORT Electronically signed by : Luciano Falk MD 11/08/2022 20:25:05
--- NOTE | 2022-11-08 15:25 | HMH.EDGENADL ---
Discharge Plan Disposition Patient Disposition: Home, Self-Care Condition: Fair Prescriptions Prescriptions: New famotidine 20 mg tablet 20 mg PO BID Qty: 28 0RF pantoprazole 40 mg tablet,delayed release (DR/EC) 40 mg PO DAILY 28 Days Qty: 28 0RF famotidine 20 mg tablet 20 mg PO BID Qty: 28 0RF No Action alprazolam 0.5 mg tablet 0.5 mg PO TIDP PRN (Reason: Anxiety) Qty: 30 Label Comments: TAKE 1 TABLET BY MOUTH EVERY 8 HOURS NEEDED FOR ANXIETY MAY CAUSEDROWSINESS pregabalin 200 mg capsule 200 mg PO BID pantoprazole 40 mg tablet,delayed release (DR/EC) 40 mg PO DAILY atorvastatin 40 mg tablet See Rx Instructions .ROUTE .COMPLEX Rx Instructions: TAKE 1 TABLET DAILY buspirone 10 MG tablet 10 mg PO BID furosemide [Lasix] 40 mg tablet 40 mg PO DAILY spironolactone [Aldactone] 25 mg tablet 25 mg PO DAILY Referrals Follow up/Referrals: Provider,Referral, MD [Referring] - See instructions Activity Restrictions/Add. Instructions Additional Instructions/Restrictions: If you are considering a second opinion please make an appointment with Dr. Pena at [facility]. You could also consider getting tested for H. pylori with your PCP. Please return with any new or worsening symptoms. Clinical Impressions Clinical Impression: Peptic ulcer disease Instructions Patient Instructions: DI for Peptic Ulcer Discharge ED Provider: Romeo Perera General Adult HPI General Chief complaint: Chest Pain Stated complaint: chest pain, abd pain Time Seen by Provider: 11/08/22 15:26 Mode of Arrival: Ambulatory Source of Information: Patient Limitations: No Limitations Description of Symptoms (Recalled from ER Triage Doc. by RN): Presents via POV d/t multiple complaints. 1. Reports hypotension 70's/50's x 3 days, however normotensive today. Constant midsternum chest pain radiation to left chest, shoulder, and jaw x [address] Cleaning d/t hx of CHF, tachycardia, and murmur. Last routine appt x 1 mon. Denies worsening or alleviating factors. 2. LLQ abd pain radiation to RLQ with n/v/d and intermittent low-grade fever < 100F. Reports coffee ground emesis. Hx of bariatric surg x [address] Velez. Reports bleeding ulcer x 4 mons. History of Present Illness HPI narrative: Patient is a 37-year-old female with a past medical history of gastric bypass via Keena-en-Y who presents with multiple complaints. She says that over the last few days she has had recurrent episodes of hypotension. She says that during this time she has been having epigastric pain and also has some midsternal pain. She says they feel like they connect. She has been taking her medications as prescribed. She also complains of some low-grade fevers around 99-100. She also notes that she has been having some coffee-ground emesis and has a history of a bleeding ulcer 4 months ago. She has been taking her Protonix as prescribed. She says that she has been following with Dr. Velez who is her surgeon who has been managing this. Denies any diarrhea but does note some melena. Related Data Home Medications Medication Instructions Recorded Confirmed alprazolam 0.5 mg tablet 0.5 mg PO TIDP PRN Anxiety #30 tabs 01/12/19 10/06/22 buspirone 10 mg tablet 10 mg PO BID Anxiety 07/26/20 10/06/22 pregabalin 200 mg capsule 200 mg PO BID RLS 02/05/21 10/06/22 atorvastatin 40 mg tablet See Rx Instructions .Route 08/07/22 10/06/22 .COMPLEX Cholesterol pantoprazole 40 mg tablet,delayed 40 mg PO DAILY STOMACH 08/18/22 10/06/22 release furosemide 40 mg tablet (Lasix) 40 mg PO DAILY Fluid 08/25/22 10/06/22 spironolactone 25 mg tablet 25 mg PO DAILY Fluid 08/25/22 10/06/22 (Aldactone) Previous Rx's Medication Instructions Recorded famotidine 20 mg tablet 20 mg PO BID #28 tabs 11/08/22 famotidine 20 mg tablet 20 mg PO BID #28 tabs 11/08/22 pantoprazole 40
--- NOTE | 2022-11-08 15:27 | CT_ITS ---
PROCEDURE INFORMATION: Exam: CT Abdomen And Pelvis With Contrast Exam date and time: 11/08/2022 4:01 PM Age: 37 years old Clinical indication: Nausea and vomiting; Prior surgery; Surgery date: 6+ months; Surgery type: Gastric bypass 2 years ago; Additional info: Hemateasis , vomiting TECHNIQUE: Imaging protocol: Computed tomography of the abdomen and pelvis with contrast. Radiation optimization: All CT scans at this facility use at least one of these dose optimization techniques: automated exposure control; mA and/or kV adjustment per patient size (includes targeted exams where dose is matched to clinical indication); or iterative reconstruction. Contrast material: ISOVUE; Contrast volume: 75 ml; Contrast route: IV; REPORTING DATA: Count of CT and Cardiac NM exams in prior 12 months: This patient has received 3 known CTs and 0 known cardiac nuclear medicine studies in the 12 months prior to the current study. COMPARISON: CT ABDOMEN PELVIS W CON 02/14/2022 10:20 AM FINDINGS: Liver: Normal. No mass. Gallbladder and bile ducts: Cholecystectomy. Pancreas: Normal. No ductal dilation. Spleen: Normal. No splenomegaly. Adrenal glands: Normal. No mass. Kidneys and ureters: Normal. No hydronephrosis. Stomach and bowel: Gastric bypass Appendix: No evidence of appendicitis. Intraperitoneal space: Unremarkable. No free air. No significant fluid collection. Vasculature: Unremarkable. No abdominal aortic aneurysm. Lymph nodes: Unremarkable. No enlarged lymph nodes. Urinary bladder: Unremarkable as visualized. Reproductive: Hysterectomy. Bones/joints: Unremarkable. No acute fracture. Soft tissues: Unremarkable. IMPRESSION: No evidence of acute abnormality.
[2022-11-08 15:30] VITALS: BP 117/81; PULSE 91; RESP 18; O2SAT 98
[2022-11-08 15:42] LABS: Basophils # 0.1 K/mm3 (0-0.2); Basophils % 0.8 % (0.1-2.0); Eosinophils # 0.2 K/mm3 (0.0-0.4); Eosinophils % 2.8 % (0.1-12.0); Hematocrit 38.5 % (37.0-47.0); Hemoglobin 12.5 g/dL (12.2-16.2); Lymphocytes # 2.2 K/mm3 (0.7-4.5); Lymphocytes % 27.5 % (10-50); Mean Corpuscular HGB Conc 32.5 g/dL (31.8-35.4); Mean Corpuscular Hemoglobin 27.7 pg (27.0-31.2); Mean Corpuscular Volume 85.3 fl (81-99); Monocytes # 0.5 K/mm3 (0.1-1.0); Monocytes % 6.5 % (1.7-9.3); Neutrophils % 62.5 % (37.0-80.0); Platelet Count 232 K/mm3 (142-424); Red Blood Count 4.51 M/mm3 (4.20-5.40); Red Cell Distribution Width 14.6 % (11.5-17.5)
[2022-11-08 15:46] LABS: Chloride 106 mmol/L (98-107); Potassium 3.5 mmoL/L (3.5-5.1); Sodium 141 mmol/L (136-145)
[2022-11-08 15:47] LABS: HCG Qualitative, Serum Negative (Negative)
[2022-11-08 15:49] LABS: Alanine Aminotransferase 23 U/L (12-78); Albumin Level 4.3 g/dl (3.5-5.0); Albumin/Globulin Ratio 1.3 (1.1-1.8); Alkaline Phosphatase 135 U/L (38-126); Anion Gap 10.5 mEq/L (5-15); Aspartate Amino Transferase 39 U/L (14-36); Bilirubin,Total 0.3 mg/dl (0.2-1.3); Blood Urea Nitrogen 7 mg/dl (7-17); Calcium 9.2 mg/dl (8.4-10.2); Carbon Dioxide 28 mmol/L (22.0-30.0); Creatinine Clearance Estimated 156 mL/min (50-200); Estimated Glomerular Filt Rate 94 ml/min (>60); GFR (African American) 113 ML/MIN (>60); Globulin 3.3 g/dL (1.3-3.2); Glucose 108 mg/dl (74-100); Lipase 79 U/L (23-300); Total Protein,Serum 7.6 g/dl (6.3-8.2)
[2022-11-08 15:55] LABS: C-Reactive Protein 3.5 mg/L (0-4)
[2022-11-08 16:03] LABS: Troponin I < 0.01 ng/ml (0.00-0.034)
[2022-11-08 16:05] LABS: Erythrocyte Sedimentation Rate 26 mm/hr (0-20)
[2022-11-08 16:30] VITALS: BP 105/72; PULSE 75; RESP 18; O2SAT 100
--- NOTE | 2022-11-08 16:32 | PC.NURSE ---
Patient states that she now has a migraine, informed
[2022-11-08 17:00] VITALS: BP 103/72; PULSE 79; RESP 18; O2SAT 98
--- NOTE | 2022-11-08 17:02 | PC.NURSE ---
Rounded on patient, patient states she is starting to have abdominal pain. MD notified. Call light within reach
[2022-11-08 17:24] LABS: Microscopic, Urine URINE MICROSCOPIC (MICROSCOPIC)
[2022-11-08 17:25] LABS: Acetaminophen < 10 ug/ml (10-30)
[2022-11-08 17:28] LABS: Appearance,Urine CLEAR (Clear); Bilirubin,Urine Negative (Negative); Blood, Urine 2+ (Negative); Color,Urine YELLOW (Yellow); Glucose,Urine (UA) Negative (Negative); Ketones,Urine Negative (Negative); Leukocyte Esterase,Urine Negative (Negative); Nitrate,Urine Negative (Negative); Protein,Urine Negative (Negative); Specific Gravity, Urine <= 1.005 (1.005-1.030); Urobilinogen,Urine 0.2 EU/dl (0.2)
[2022-11-08 19:09] VITALS: BP 117/70; PULSE 90; RESP 18; TEMP 36.9; O2SAT 96
== END 2022-11-08 19:09 | disposition home or self-care (01) ==
PROVIDERS: Emergency Provider Student in an Organized Health Care Education/Training Program; PCP Internal Medicine Adolescent Medicine
DX: R07.9 Chest pain, unspecified (principal); R10.9 Unspecified abdominal pain
CPT/HCPCS: 74177; 80053; 80329; 81001; 83690; 84484; 84703; 85025; 85651; 86140; 93005; 96360; 96374; 96375; 99285; Q9967

== ENCOUNTER → 2023-01-21 15:00 | Outpatient (POV) | payer OTHER, SELFPAY ==
[2023-01-21 15:57] VITALS: BP 125/73; PULSE 113; RESP 18; O2SAT 97; BMI 27.3
--- NOTE | 2023-01-21 15:58 | EXP.PAIN.SOA ---
[facility] Pain Management SOAP Note Subjective:: Patient is a pleasant 37-year-old female who presents today for follow-up.? We are currently treating the patient for chronic low back pain, right shoulder pain, osteoarthritis left ankle and foot, chronic Effler's Danlos disease.? Today she rates her pain a 7 out of 10.? Patient denies any new trauma or injury.? Patient denies any change to location or type of pain she experiences. She does state that after talking to her primary care doctor she does think that she may benefit from the intrathecal pain pump trial more than the spinal cord stimulator. Patient does state that she has pain in multiple areas however she feels like her back pain is the more prominent location and would be more beneficial to start there. She does describe her pain as a constant aching, throbbing sensation that is worse with increased activity. She has a past history of 2 prior back surgeries including a laminectomy and discectomy.? She has tried multiple injections with minimal improvement..? She is also tried oral medications such as mhlb-eid-npnqwdh Tylenol and ibuprofen, heat and ice and xfpm-iwg-duhqmgg topicals with no additional relief.? Patient has had physical therapy in the past however this aggravated her symptoms.? She is currently managed with pregabalin 200 mg twice a day and alprazolam 0.5 mg 3 times a day from her primary care doctor.? Patient denies any side effects from this medication.? Her Dinesh is [id number]. Reviewed and appropriate. Its been reviewed and appropriate.? Review of Systems: General: No recent weight changes, no fever, no sleep disturbances Respiratory: No cough, no shortness of air, no recurring pulmonary infections Cardiovascular/peripheral vascular: No chest pain, no palpitations,? no edema, no shortness of breath Gastrointestinal: No new onset incontinence, normal bowel movements reported Genitourinary: No new onset incontinence Musculoskeletal: Low back pain, leg pain Psychiatric: [Normal mood/affect] Neurological: [Denies weakness in extremities], [denies balance issues] Objective:: Physical Exam: General: Alert and oriented x3, no acute distress, pleasant and cooperative Lungs: Respirations even and unlabored, symmetrical chest expansion Eyes: PERRL Musculoskeletal: Flexion and extension of lumbar [spine] somewhat guarded secondary to pain, [antalgic gait noted] Neurological: Speech clear, no gross sensory deficit Assessment:: Chronic low back pain, right shoulder pain, osteoarthritis left ankle and foot, chronic efflers Danlos disease Plan:: Patient continues to experience significant pain throughout multiple joints including her low back with limited range of motion. Patient would like to do the pain pump trial over the spinal cord stimulator trial. I have explained the risk and benefits of this procedure to the patient and she would like to proceed forward with this plan of care. Patient has already had a psychological evaluation and was deemed an appropriate candidate. Patient has tried and failed conservative therapy such as yzsl-ehh-otrmzwx medications, heat and ice, topicals, physical therapy and at home stretching and exercise for longer than 6 weeks. We will resubmit to insurance for the intrathecal pain pump trial and contact the patient once we have approval for procedure date. Patient has been instructed to contact the clinic with any concerns before the next appointment. Dr. Jung has reviewed this note and agrees with this plan of care. This note was dictated using voice recognition software and make contain errors or omissions. [facility] Disclaimer: The information contained in this section may have been updated after the patient was seen, as this information can be updated by other users. Medical History Afib Anxiety Arrhythmia Asthma DVT (deep venous thrombosis) Edema Elevated left ventricular end-diastolic pressure (LVEDP
== END ==
PROVIDERS: PCP Internal Medicine Adolescent Medicine; Visit Provider Nurse Practitioner Family
DX: M54.50 Low back pain, unspecified (principal); G89.29 Other chronic pain; M25.511 Pain in right shoulder; M19.072 Primary osteoarthritis, left ankle and foot; Q79.60 Ehlers-Danlos syndrome, unspecified
CPT/HCPCS: 99212; G0463

== ENCOUNTER 2023-02-06 10:50 | Day surgery (SDC) | payer OTHER, SELFPAY ==
[2023-02-06 11:22] VITALS: BP 116/82; BP 126/84; PULSE 71; PULSE 77; PULSE 91; RESP 18; TEMP 37.1; O2SAT 100; O2SAT 99; BMI 28.0
[2023-02-06 11:30] VITALS: BP 119/74; PULSE 72; RESP 20; O2SAT 99
[2023-02-06 11:45] VITALS: BP 109/65; PULSE 76; RESP 20; O2SAT 100
[2023-02-06 12:00] VITALS: BP 103/65; PULSE 75; RESP 20; O2SAT 99
[2023-02-06 12:15] VITALS: BP 103/63; PULSE 69; RESP 20; O2SAT 98
--- NOTE | 2023-02-06 12:26 | PC.NURSE ---
1130-pt returned to bay, accompanied by nursing staff. pt rates pain 5/10, lumbar dressing c/d/i. VSS. pt given PO fluids per request. family at bedside. 1145-pt resting in chair. VSS, pain 2/10. dressing c/d/i. tolerating PO fluids. family remains at bedside. 1200-pt resting in chair. VSS, denies pain. Dressing c/d/i. no needs or concerns at this time. family at bedside. 1215-pt resting in chair. VSS, denies pain. Dressing c/d/i. no needs or concerns at this time. family at bedside. 1220-pt ambulated to nursing station, accompanied by nursing staff. gait steady. no c/o pain 1226- Dr. Jung at bedside
[2023-02-06 12:45] VITALS: BP 102/63; PULSE 75; RESP 20
--- NOTE | 2023-02-06 14:17 | EXP.PAIN.PRO ---
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 She has pain in multiple areas including back neck legs and feet. She has failed all previous conservative treatments including injections, oral medications, physical therapy and she is not a candidate for surgery. She presents for intrathecal pump trial today. She has had a successful psychological evaluation. Procedure Details:: Pain pump trial Pain pump trial Informed consent was obtained and the risk and benefits of the procedure was explained to the patient. The patient was taken to the procedure room and placed prone on the procedure table. Patient was prepped and draped in sterile fashion. C-arm fluoroscopy was used to view the lumbar spine. The skin and subcutaneous tissues were anesthetized using lidocaine. I placed a 18-gauge spinal needle into the L4-5 interspace and advanced until clear CSF was obtained. After this intrathecal catheter was inserted and advanced very easily to the L1 vertebral body. The needle was withdrawn. We were able to freely withdraw clear CSF through the catheter. We then injected intrathecal opioid single shot bolus of 25 mcg followed by saline and followed by the previous CSF that was withdrawn. The needle and catheter were then removed and a Band-Aid was placed. Patient tolerated the procedure well with no complications. We reevaluated the patient after 30 minutes to 1 hour. She was also reassessed by physical therapy. Patient had 90 to 100% relief in pain symptoms. She was much more functional. Pain score went down from a 7 out of 10 to a 0 out of 10. She was doing very well by all indications this was a successful trial. Patient was discharged home neurologic intact with good relief of pain symptoms. Plan and Disposition:: We will follow-up with this patient in 1 week. We will seek approval for permanent placement if this is truly successful. We will plan on permanent placement with intrathecal morphine 1 mg per mall to start at 0.1 mg/day. Catheter tip will be the T8 vertebral body.
== END 2023-02-06 13:30 | disposition home or self-care (01) ==
LOC: SC.PAINP 10:51
PROVIDERS: PCP Internal Medicine Adolescent Medicine; Visit Provider Anesthesiology
DX: M51.16 Intervertebral disc disorders with radiculopathy, lumbar region (principal); Q79.60 Ehlers-Danlos syndrome, unspecified; M79.605 Pain in left leg; M79.604 Pain in right leg; M25.572 Pain in left ankle and joints of left foot
CPT/HCPCS: 62323; 96365

== ENCOUNTER → 2023-02-12 12:07 | Outpatient (CLI) | payer OTHER, SELFPAY ==
[2023-02-12 12:40] LABS: Basophils % 0.5 % (0.1-2.0); Eosinophils # 0.3 K/mm3 (0.0-0.4); Hemoglobin 12.4 g/dL (12.2-16.2); Lymphocytes % 27.9 % (10-50); Mean Corpuscular HGB Conc 31.8 g/dL (31.8-35.4); Mean Corpuscular Hemoglobin 26.4 pg (27.0-31.2); Mean Corpuscular Volume 83.2 fl (81-99); Mean Platelet Volume 8.7 fl (7.4-10.4); Monocytes # 0.4 K/mm3 (0.1-1.0); Monocytes % 6.2 % (1.7-9.3); Neutrophils # 4.4 K/mm3 (1.8-7.8); Neutrophils % 61.4 % (37.0-80.0); Platelet Count 309 K/mm3 (142-424); Red Blood Count 4.69 M/mm3 (4.20-5.40); Red Cell Distribution Width 14.3 % (11.5-17.5); White Blood Count 7.2 K/mm3 (4.8-10.8)
[2023-02-12 13:27] LABS: Alanine Aminotransferase 21 U/L (12-78); Albumin/Globulin Ratio 1.3 (1.1-1.8); Alkaline Phosphatase 120 U/L (38-126); Amylase 83 U/L (30-110); Anion Gap 14.4 mEq/L (5-15); Aspartate Amino Transferase 27 U/L (14-36); Bilirubin,Total 0.2 mg/dl (0.2-1.3); Blood Urea Nitrogen 11 mg/dl (7-17); Calcium 8.9 mg/dl (8.4-10.2); Carbon Dioxide 27 mmol/L (22.0-30.0); Chloride 103 mmol/L (98-107); Estimated Glomerular Filt Rate 94 ml/min (>60); GFR (African American) 113 ML/MIN (>60); Globulin 3.1 g/dL (1.3-3.2); Glucose 69 mg/dl (74-100); Lipase 121 U/L (23-300); Potassium 4.4 mmoL/L (3.5-5.1); Sodium 140 mmol/L (136-145); Total Protein,Serum 7.1 g/dl (6.3-8.2)
[2023-02-12 14:28] LABS: Adenovirus F 40/41, stool Not Detected (NotDetected); Astrovirus Not Detected (NotDetected); Campylobacter Not Detected (NotDetected); Clostridium Difficile A/B, PCR Not Detected (NotDetected); Cryptosporidium Not Detected (NotDetected); Cyclospora Cayetanesis Not Detected (NotDetected); Entamoeba histolytica Not Detected (NotDetected); Enteroaggregative E coli Not Detected (NotDetected); Enteropathogenic E coli Not Detected (NotDetected); Enterotoxigenic E coli Not Detected (NotDetected); Giardia lamblia Not Detected (NotDetected); Norovirus Not Detected (NotDetected); Plesimonas Shigalloides, PCR Not Detected (NotDetected); Rotavirus A Not Detected (NotDetected); Salmonella, PCR Not Detected (NotDetected); Sapovirus Not Detected (NotDetected); Shiga-like toxin E coli Not Detected (NotDetected); Shigella Enterovasive E coli Not Detected (NotDetected); Vibrio Cholerae Not Detected (NotDetected); Vibrio, PCR Not Detected (NotDetected); Yersinia Entercolitica, PCR Not Detected (NotDetected)
== END ==
PROVIDERS: PCP Internal Medicine Adolescent Medicine; Visit Provider Nurse Practitioner Family
DX: K58.1 Irritable bowel syndrome with constipation (principal); K30 Functional dyspepsia; K27.9 Peptic ulcer, site unspecified, unspecified as acute or chronic, without hemorrhage or perforation; R19.4 Change in bowel habit; R19.7 Diarrhea, unspecified; R11.2 Nausea with vomiting, unspecified; R10.84 Generalized abdominal pain
CPT/HCPCS: 36415; 80053; 82150; 83690; 85025; 87507

== ENCOUNTER → 2023-02-25 08:08 | Outpatient (CLI) | payer OTHER, SELFPAY ==
--- NOTE | 2023-02-25 10:20 | CT_ITS ---
FINAL REPORT TECHNIQUE: After the administration of oral and intravenous contrast, axial images were obtained through the abdomen and pelvis by computed tomography. The study was performed with techniques to keep radiation dose as low as reasonably achievable, (ALARA). Individual dose reduction techniques using automated exposure control or adjustment of mA and/or kV according to the patient's size were employed. CLINICAL HISTORY: IRRITABLE BOWEL W/CONSTIPATION,PFPTIC ULCER,N/V ABD PAIN COMPARISON: 11/08/2022 FINDINGS: Abdomen: There is mild bibasilar atelectasis. The liver is normal in size and attenuation. The patient is status post cholecystectomy. There are also postoperative changes from gastric bypass. There is inflammatory fat stranding adjacent to the stomach, may represent gastritis. The spleen is unremarkable. The adrenals are normal. The pancreas is unremarkable. The kidneys enhance appropriately. The aorta is normal in caliber. There is no free fluid or adenopathy. Pelvis: The appendix is normal. There are postoperative changes from hysterectomy. The urinary bladder is unremarkable. There is no free fluid or adenopathy. IMPRESSION: Findings worrisome for gastritis or other inflammatory process. Reviewed, Interpreted and Dictated by Paul Cordero III, MD Transcribed by [place] Authenticated and [facility]
== END ==
PROVIDERS: PCP Internal Medicine Adolescent Medicine; Visit Provider Nurse Practitioner Family
DX: K58.1 Irritable bowel syndrome with constipation (principal); K30 Functional dyspepsia; K27.9 Peptic ulcer, site unspecified, unspecified as acute or chronic, without hemorrhage or perforation; R19.4 Change in bowel habit; R11.2 Nausea with vomiting, unspecified; R10.84 Generalized abdominal pain; R19.7 Diarrhea, unspecified
CPT/HCPCS: 74177; Q9967

== ENCOUNTER → 2023-03-12 10:02 | Outpatient (CLI) | payer OTHER, SELFPAY ==
[2023-03-12 10:22] LABS: Basophils % 0.3 % (0.1-2.0); Eosinophils # 0.2 K/mm3 (0.0-0.4); Eosinophils % 2.9 % (0.1-12.0); Hematocrit 40.4 % (37.0-47.0); Hemoglobin 12.9 g/dL (12.2-16.2); Lymphocytes # 1.9 K/mm3 (0.7-4.5); Mean Corpuscular Hemoglobin 26.7 pg (27.0-31.2); Mean Corpuscular Volume 83.4 fl (81-99); Mean Platelet Volume 8.7 fl (7.4-10.4); Monocytes # 0.4 K/mm3 (0.1-1.0); Monocytes % 6.6 % (1.7-9.3); Neutrophils # 3.5 K/mm3 (1.8-7.8); Neutrophils % 58.2 % (37.0-80.0); Platelet Count 249 K/mm3 (142-424); Red Blood Count 4.85 M/mm3 (4.20-5.40); Red Cell Distribution Width 14.9 % (11.5-17.5); White Blood Count 5.9 K/mm3 (4.8-10.8)
[2023-03-12 11:24] LABS: Anion Gap 15.2 mEq/L (5-15); Blood Urea Nitrogen 11 mg/dl (7-17); Calcium 9.5 mg/dl (8.4-10.2); Carbon Dioxide 27 mmol/L (22.0-30.0); Chloride 109 mmol/L (98-107); Estimated Glomerular Filt Rate 80 ml/min (>60); GFR (African American) 97 ML/MIN (>60); Glucose 91 mg/dl (74-100); Potassium 4.2 mmoL/L (3.5-5.1); Sodium 147 mmol/L (136-145)
== END ==
PROVIDERS: PCP Internal Medicine Adolescent Medicine; Visit Provider Anesthesiology
DX: Z01.812 Encounter for preprocedural laboratory examination (principal); M51.36 Other intervertebral disc degeneration, lumbar region
CPT/HCPCS: 36415; 80048; 85025

== ENCOUNTER 2023-03-13 08:41 | Day surgery (SDC) | payer OTHER, SELFPAY ==
[2023-03-13] VITALS (7 sets, daily range): BP systolic 97–121; BP diastolic 64–74; PULSE 73–85; RESP 16–18; TEMP 36.7; O2SAT 97–100; BMI 24.8
--- NOTE | 2023-03-13 10:48 | P.PNANES_ITS ---
[facility] Disclaimer: The information contained in this section may have been updated after the patient was seen, as this information can be updated by other users. Medical History Afib Anxiety Arrhythmia Asthma DVT (deep venous thrombosis) Edema Elevated left ventricular end-diastolic pressure (LVEDP) GERD (gastroesophageal reflux disease) Heart murmur History of left heart catheterization History of pulmonary embolism HLD (hyperlipidemia) HTN (hypertension) Migraine LEONORA (obstructive sleep apnea) Osteoarthritis Pulmonary embolism SVT (supraventricular tachycardia) Surgical History (Updated 03/13/23 @ 09:02 by Gloria Haley RN) H/O foot surgery H/O knee surgery History of bariatric surgery History of cholecystectomy History of esophageal surgery History of exploratory laparotomy History of lumpectomy of left breast Previous back surgery Family History (Updated 03/13/23 @ 09:02 by Gloria Haley RN) Other Family history of cancer Family history of hypertension Social History (Updated 03/13/23 @ 09:02 by Gloria Haley RN) Smoking Status: Current every day smoker tobacco type: cigarettes packs per day: 4 second hand exposure: No alcohol intake: never substance use type: marijuana current occupational status: other Travel in the last 8 weeks: None household members: spouse housing: house number of children: 0 current occupational exposures/hazards: No caffeine: No [facility] Anesthesia Checklist Patient Identification Patient Identification: Verbal (Name & ) Structural Data Admitted From: Home Planned Operative Procedure/s: pain pump insertion Additional verifications Anesthesia Reactions: Yes (awareness during Hysterectomy) Hx Blood Transfusions: Yes Blood Transfusion Reaction: No Airway Assessment C-Spine Mobility Assessed: Yes TMJ Mobility Assessed: Yes Dentition: Good Dentition Neurological Assessment Level of Consciousness: Awake, Alert and Appropriate Anesthesia Plan Anesthesia Risk discussed: Yes Anesthesia Plan: Verified ASA Class: II Anesthesia Type: MAC
--- NOTE | 2023-03-13 14:23 | EXP.OP.NOTE ---
Date of procedure: 03/13/23 Pre-op Diagnosis:: Degenerative disc disease of lumbar spine with lumbar radiculopathy symptoms and Estevan-Danlos syndrome Post-op Diagnosis:: Same Procedure performed:: Permanent placement intrathecal pain pump with tunneled intrathecal catheter and pain pump generator placement Surgeon:: Valentin Jung MD X RAY E[employer]IPMENT TESTER:: Other Anesthesia: MAC Estimated blood loss (mL): 5 Clinical Note:: This patient is a pleasant 37-year-old white female who we have been treating for low back pain with lumbar radiculopathy symptoms and foot pain with Estevan-Danlos syndrome. Patient has been multiple pain areas including neck low back and feet. She has failed all previous conservative treatments including injections, oral medications, physical therapy and she is not a candidate for any surgery. She has had a successful intrathecal pump trial. She is also had a successful psychological evaluation. She presents for permanent placement of her intrathecal pain pump today. Operative findings:: None Operative note:: Informed consent was obtained risk and benefits of the procedure were explained to the patient. Patient was taken the operating room placed prone on the procedure table. He was prepped and draped in sterile fashion. C-arm fluoroscopy was used to view the left flank senior care between the ribs and iliac crest we made an incision after anesthetizing the skin and subcutaneous tissues. We created the generator pocket. C-arm fluoroscopy was then used to view the lumbar spine. The skin and subcutaneous tissues adjacent to L4-5 and L5-S1 were anesthetized using lidocaine. I made an incision and dissected down to the lumbar paraspinous fascia. A 14-gauge spinal needle was inserted and advanced into the L4-5 interspace until clear CSF was obtained. After this intrathecal catheter was inserted and advanced very easily to the T8 vertebral body. The catheter was found to be posterior and lateral view. The stylette of the catheter and the needle were withdrawn. The catheter was secured to the fascia with anchoring devices and 2-0 Prolene. I filled the pump was 20 mils of intrathecal morphine 1 mg per mill. I tunneled the catheter from the back to the generator pocket. I attached the catheter to the generator. We were able to freely withdraw clear CSF through the sideport. A antibiotic pouch was placed into the pocket. Both incisions were irrigated with antibiotic solution. Both incisions were then closed with 2-0 Vicryl followed by 4-0 nylon and absorbable emma. Patient tolerated the procedure well with no complications. Pump was interrogated and started at 100 mcg/day of intrathecal morphine. Patient was discharged home neurologic intact with good relief of pain symptoms. Plan and disposition: We will follow-up with this patient in 1 week for wound check and reprogram. We will follow-up in 2 weeks for suture removal. Condition: stable Disposition: PACU Complications:: None
== END 2023-03-13 12:35 | disposition home or self-care (01) ==
PROVIDERS: PCP Internal Medicine Adolescent Medicine; Visit Provider Anesthesiology
PROC: (CPT 62350; principal; 2023-03-13 09:30)
DX: M51.16 Intervertebral disc disorders with radiculopathy, lumbar region (principal); Q79.60 Ehlers-Danlos syndrome, unspecified
CPT/HCPCS: 62350; 62362; 96374; C1755; C1772

== ENCOUNTER → 2023-03-19 09:24 | Outpatient (POV) | payer OTHER, SELFPAY ==
--- NOTE | 2023-03-19 09:51 | EXP.PAIN.PRO ---
Procedure Date: 03/19/23 Time: 09:51 Anesthesiologist:: Karen Gracia APRN Complications:: None Pre-procedure Diagnosis:: Degenerative disc disease of lumbar spine with lumbar radiculopathy symptoms, Effler's Danlos syndrome, chronic low back pain, right shoulder pain, osteoarthritis left ankle and foot Post-procedure Diagnosis:: Same Indications for Procedure:: Patient is a pleasant 37-year-old female who presents today for follow-up. We are currently treating the patient for chronic low back pain, right shoulder pain, osteoarthritis left ankle and foot, chronic Effler's Danlos disease. Today she rates her pain a 9 out of 10. Patient denies any new trauma or injury. She does state that she continues to be experiencing lower left abdominal pain along with diarrhea and nausea vomiting and decreased appetite. Patient does state that this has been a chronic issue and has been going on prior to her intrathecal pump implant on 02/06/2023. Patient is currently managed with morphine 1 mg/mL with a daily dose of 0.1 mg/day. Patient denies any side effects from this medication. She states she does see Dr. Maddox for her IBS?C and that she saw him last month and was diagnosed with a gastric ulcer. She states he did put her on medication. She does state that she is scheduled to see him next month. She has had 2 prior back surgeries including a laminectomy and discectomy. She is prescribed pregabalin 200 mg twice a day and alprazolam 0.5 mg 3 times a day from her primary care doctor. Patient denies any side effects from this medication. Her Dinesh is [id number]. Its been reviewed and appropriate. Physical Exam: General: Alert and oriented x3, no acute distress, pleasant and cooperative Lungs: Respirations even and unlabored, symmetrical chest expansion Eyes: PERRL Musculoskeletal: Flexion and extension of lumbar [spine] somewhat guarded secondary to pain, [antalgic gait noted] Neurological: Speech clear, no gross sensory deficit Skin: Incision sites clean, dry, well approximated, sutures intact along the lateral border of incision Procedure Details:: Informed consent was obtained and the risk and benefits of the procedure were explained to the patient. Patient was taken to the procedure room where noninvasive monitoring was placed including noninvasive blood pressure cuff and pulse oximeter. Patient's pump was interrogated and was reprogrammed to morphine 0.11 mg/day. The patient tolerated the procedure well with no complications. Plan and Disposition:: Patient tolerated her intrathecal increase with no complications. I have counseled the patient that our next visit we will plan on removing the remainder of her sutures and apply skin glue and Steri-Strips to the one lateral incision. I have also counseled the patient to follow-up with Dr. Maddox regarding her chronic abdominal pain. Patient was set up with her PTM device during today's visit. Patient will return to clinic in 1 week for reevaluation of symptoms and possible intrathecal adjustment reprogramming. Patient has been instructed to contact the clinic with any concerns before the next appointment. Dr. Jung has reviewed this note and agrees with this plan of care. This note was dictated using voice recognition software and make contain errors or omissions. -- It Is medically necessary for this patient to continue to have their intrathecal pump refilled at regular intervals. This patient had an intrathecal pain pump implanted after meeting criteria of chronic intractable pain for greater than 3 months and failing conservative treatments. Patient has committed and been compliant to the treatment plan and all planned follow up care. Since implantation of the intrathecal pain pump, the patient has had decreased pain and been more functional. Oral medications have been reduced including intake of oral opioids. Patient continues to do well with intrathecal therapy with decrease in pain symptom
[2023-03-19 13:12] VITALS: BP 110/82; PULSE 96; RESP 20; O2SAT 97; BMI 27.3
== END | disposition home or self-care (01) ==
PROVIDERS: Visit Provider Nurse Practitioner Family
DX: M51.16 Intervertebral disc disorders with radiculopathy, lumbar region (principal); Q79.60 Ehlers-Danlos syndrome, unspecified; M54.50 Low back pain, unspecified; G89.29 Other chronic pain; M25.511 Pain in right shoulder; M19.072 Primary osteoarthritis, left ankle and foot; Z97.8 Presence of other specified devices
CPT/HCPCS: 62368

== ENCOUNTER → 2023-03-25 11:38 | Outpatient (POV) | payer OTHER, SELFPAY ==
[2023-03-25 11:58] VITALS: BMI 25.8
--- NOTE | 2023-03-25 12:56 | EXP.PAIN.PRO ---
Procedure Date: 03/25/23 Time: 12:20 Anesthesiologist:: Karen Gracia APRN Complications:: None Pre-procedure Diagnosis:: Degenerative disc disease of lumbar spine with lumbar radiculopathy symptoms, Effler's Danlos syndrome, chronic low back pain, right shoulder pain, osteoarthritis left ankle and foot Post-procedure Diagnosis:: Same Indications for Procedure:: Patient is a pleasant 37-year-old female who presents today for follow-up. We are currently treating the patient for degenerative disc disease of lumbar spine with lumbar radiculopathy symptoms, adverse Danlos syndrome, chronic low back pain, right shoulder pain, osteoarthritis left ankle and left foot. Patient rates her pain today a 6 out of 10. Patient denies any new trauma or injury following her intrathecal pain pump placement. She is currently managed with morphine 1 mg/mL with a daily dose of 0.11 mg/day. Patient denies any side effects from this medication. She is also prescribed pregabalin 200 mg twice a day and alprazolam 0.5 mg 3 times a day from outside providers. Her Dinesh is [id number]. It has been reviewed and appropriate. Physical Exam: General: Alert and oriented x3, no acute distress, pleasant and cooperative Lungs: Respirations even and unlabored, symmetrical chest expansion Eyes: PERRL Musculoskeletal: Flexion and extension of lumbar [spine] somewhat guarded secondary to pain, [antalgic gait noted] Neurological: Speech clear, no gross sensory deficit Skin: Incision site clean, dry, well-approximated with minimal erythema noted, left lateral incision does have a moderate seroma present, sutures intact Procedure Details:: Informed consent was obtained and the risk and benefits of the procedure were explained to the patient. Patient was taken to the procedure room where noninvasive monitoring was placed including noninvasive blood pressure cuff and pulse oximeter. Patient's pump was interrogated and was reprogrammed to morphine 0.1-1 1 mg/day. The patient tolerated the procedure well with no complications. Plan and Disposition:: Patient's incision site is clean, dry, well-approximated with minimal erythema noted however her left lateral incision does have a moderate seroma present. I have discussed this with the patient that this can be drained if it is causing worsening symptoms however she states it is okay and as long as she is not pressed up against something that is not really causing any additional pain. We did remove her sutures during today's visit and applied Steri-Strips. I have counseled the patient to continue her postop restrictions of minimal bending, lifting or twisting, no submerging in water until her incisions are fully healed and to continue to wear at her abdominal binder due to her present seroma formation. Patient did tolerate her intrathecal increase with no complications and was discharged neurologically intact. Patient will return to clinic in 2 weeks for reevaluation of symptoms and possible readjustment of her intrathecal pump. Patient has been instructed to contact the clinic with any concerns before the next appointment. Dr. Jung has reviewed this note and agrees with this plan of care. This note was dictated using voice recognition software and make contain errors or omissions. -- It Is medically necessary for this patient to continue to have their intrathecal pump refilled at regular intervals. This patient had an intrathecal pain pump implanted after meeting criteria of chronic intractable pain for greater than 3 months and failing conservative treatments. Patient has committed and been compliant to the treatment plan and all planned follow up care. Since implantation of the intrathecal pain pump, the patient has had decreased pain and been more functional. Oral medications have been reduced including intake of oral opioids. Patient continues to do well with intrathecal therapy with decrease in pain symptoms and increase in functional sta
== END | disposition home or self-care (01) ==
PROVIDERS: PCP Internal Medicine Adolescent Medicine; Visit Provider Nurse Practitioner Family
DX: M51.16 Intervertebral disc disorders with radiculopathy, lumbar region (principal); Q79.60 Ehlers-Danlos syndrome, unspecified; M54.50 Low back pain, unspecified; G89.29 Other chronic pain; M25.511 Pain in right shoulder; M19.072 Primary osteoarthritis, left ankle and foot; Z97.8 Presence of other specified devices
CPT/HCPCS: 62368

== ENCOUNTER → 2023-04-02 10:48 | Outpatient (POV) | payer OTHER, SELFPAY ==
[2023-04-02 11:21] VITALS: BP 113/79; PULSE 84; RESP 18; O2SAT 99; BMI 26.6
--- NOTE | 2023-04-02 12:06 | EXP.PAIN.PRO ---
Procedure Date: 04/02/23 Time: 11:21 Anesthesiologist:: Karen Gracia APRN Complications:: None Pre-procedure Diagnosis:: Degenerative disc disease of lumbar spine with lumbar radiculopathy symptoms, Effler's Danlos syndrome, chronic low back pain, right shoulder pain, osteoarthritis left ankle and foot, lumbar seroma Post-procedure Diagnosis:: Same Indications for Procedure:: Patient is a pleasant 37-year-old female who presents today for follow-up and intrathecal adjustment and reprogram. We are currently treating the patient for degenerative disc disease of lumbar spine with lumbar radiculopathy symptoms, Effler's Danlos syndrome, chronic low back pain, right shoulder pain, osteoarthritis left ankle and left foot, lumbar seroma. Today she rates her pain a 4 out of 10. Patient states from our last visit she started to have some pain around the site of her pump where her seroma is at. Previously we had discussed about drainage of the seroma however it was not causing any additional symptoms for her and she chose to hold off. Today she also states she has been having some trouble reading her pump for her boluses. Patient is currently managed with morphine 1 mg/mL with a daily dose of 0.1-1 1 mg/day. Patient denies any specific side effects from this medication. She does state that she does get some edema to her left ankle and that she is on a water pill as needed for this. Patient states that she has had surgery with hardware placed at this location in the past. Patient does state that she has some left leg numbness as well. Patient did mention that she has had a higher temperature the last couple of days however it is not gone above 99.6. Patient is also prescribed pregabalin 200 mg twice a day and alprazolam 0.5 mg 3 times a day from an outside provider. Her Dinesh is [id number]. Its been reviewed and appropriate. Physical Exam: General: Alert and oriented x3, no acute distress, pleasant and cooperative Lungs: Respirations even and unlabored, symmetrical chest expansion Eyes: PERRL Musculoskeletal: Flexion and extension of lumbar [spine] somewhat guarded secondary to pain, [antalgic gait noted] Neurological: Speech clear, no gross sensory deficit Skin: Incision sites are clean, dry, well approximated with no erythema noted, moderate seroma at left lateral incision site Procedure Details:: Informed consent was obtained and the risk and benefits of the procedure were explained to the patient. Patient was taken to the procedure room where noninvasive monitoring was placed including noninvasive blood pressure cuff and pulse oximeter. Patient's pump was interrogated and was reprogrammed to morphine 0.1332 mg/day. The patient tolerated the procedure well with no complications. Patient's left lateral incision was cleansed with ChloraPrep as a cleansing solution. Using an 18-gauge sterile needle it was inserted superiorly into her left lateral incision with approximately 44 mL of serous solution removed. Needle was removed and a sterile bandage was applied. Patient tolerated the procedure with no complications. Plan and Disposition:: Patient did well with her drainage of her lumbar seroma as well as her intrathecal increase with no complications and was discharged neurologically intact. I have reiterated with the patient of the high importance to continue to use her abdominal binder to prevent additional fluid accumulation. Patient will return to clinic in 2 weeks for reevaluation of symptoms and plan of care. Patient has been instructed to contact the clinic with any concerns before the next appointment. Dr. Jung has reviewed this note and agrees with this plan of care. This note was dictated using voice recognition software and make contain errors or omissions. -- It Is medically necessary for this patient to continue to have their intrathecal pump refilled at regular intervals. This patient had an intrathecal pain pump implanted after meeti
== END ==
PROVIDERS: PCP Internal Medicine Adolescent Medicine; Visit Provider Nurse Practitioner Family
DX: M51.16 Intervertebral disc disorders with radiculopathy, lumbar region (principal); Q79.60 Ehlers-Danlos syndrome, unspecified; M54.50 Low back pain, unspecified; G89.29 Other chronic pain; M25.511 Pain in right shoulder; M19.072 Primary osteoarthritis, left ankle and foot; S34.109D Unspecified injury to unspecified level of lumbar spinal cord, subsequent encounter
CPT/HCPCS: 62368; 99213; G0463

== ENCOUNTER → 2023-04-16 13:59 | Outpatient (POV) | payer OTHER, SELFPAY ==
--- NOTE | 2023-04-16 14:38 | EXP.PAIN.PRO ---
Procedure Date: 04/16/23 Time: 14:38 Anesthesiologist:: Karen Gracia APRN Complications:: None Pre-procedure Diagnosis:: Degenerative disc disease of lumbar spine with lumbar radiculopathy symptoms, Effler's Danlos syndrome, chronic low back pain, right shoulder pain, osteoarthritis left ankle and foot, lumbar seroma Post-procedure Diagnosis:: Same Indications for Procedure:: Patient is a pleasant 37-year-old female who presents today for follow-up. We are currently treating the patient for degenerative disc disease of lumbar spine with lumbar radiculopathy symptoms, Effler's Danlos syndrome, chronic low back pain, right shoulder pain, osteoarthritis left ankle and foot and lumbar seroma. Today she rates her pain a 4 out of 10. Patient denies any new trauma or injury. At our last visit the patient did have approximately 44 mL of fluid removed off her left lateral incision from a seroma. Patient denies any additional issues. She states she was continuing to wear her abdominal binder and has not noticed any additional fluid buildup in this location. Patient is currently managed with morphine 1 mg/mL with a daily dose of 0.1332 mg/day. Patient denies any side effects from this medication. She states that this has been a huge improvement from what her pain had been prior to this device. Patient does feel like she could still use a little bit of an increase at today's visit. Patient is prescribed. Gabapentin 200 mg twice a day and alprazolam 0.5 mg 3 times a day from an outside provider. Her Dinesh is [id number]. Its been reviewed and appropriate. Physical Exam: General: Alert and oriented x3, no acute distress, pleasant and cooperative Lungs: Respirations even and unlabored, symmetrical chest expansion Eyes: PERRL Musculoskeletal: Flexion and extension of lumbar [spine] somewhat guarded secondary to pain, [antalgic gait noted] Neurological: Speech clear, no gross sensory deficit Skin: Incision sites are clean, dry, well approximated with no erythema noted, minimal seroma noted at her left lateral incision incisions are fully healed Procedure Details:: Informed consent was obtained and the risk and benefits of the procedure were explained to the patient. Patient was taken to the procedure room where noninvasive monitoring was placed including noninvasive blood pressure cuff and pulse oximeter. Patient's pump was interrogated and was reprogrammed to morphine 0.1466 mg/day. The patient tolerated the procedure well with no complications. Plan and Disposition:: Patient tolerated her intrathecal increase with no complications. I have discussed with the patient to continue to monitor where her previous seroma was for any additional fluid buildup. I have counseled the patient that she is now officially off postop restrictions. Patient will return to clinic in 1 month for reevaluation of symptoms and possible readjustment of intrathecal pain pump. Patient was discharged neurologically intact Patient has been instructed to contact the clinic with any concerns before the next appointment. Dr. Jung has reviewed this note and agrees with this plan of care. This note was dictated using voice recognition software and make contain errors or omissions. -- It Is medically necessary for this patient to continue to have their intrathecal pump refilled at regular intervals. This patient had an intrathecal pain pump implanted after meeting criteria of chronic intractable pain for greater than 3 months and failing conservative treatments. Patient has committed and been compliant to the treatment plan and all planned follow up care. Since implantation of the intrathecal pain pump, the patient has had decreased pain and been more functional. Oral medications have been reduced including intake of oral opioids. Patient continues to do well with intrathecal therapy with decrease in pain symptoms and increase in functional status. Stopping intrathecal medications can lead
[2023-04-17 08:10] VITALS: BP 135/85; PULSE 79; RESP 18; O2SAT 100; BMI 26.1
== END | disposition home or self-care (01) ==
PROVIDERS: PCP Internal Medicine Adolescent Medicine; Visit Provider Nurse Practitioner Family
DX: M51.16 Intervertebral disc disorders with radiculopathy, lumbar region (principal); Q79.60 Ehlers-Danlos syndrome, unspecified; G89.29 Other chronic pain; M25.511 Pain in right shoulder; M19.072 Primary osteoarthritis, left ankle and foot; Z97.8 Presence of other specified devices
CPT/HCPCS: 62368

== ENCOUNTER 2023-04-20 15:26 | Emergency (ER) | payer OTHER, SELFPAY ==
[2023-04-20 15:27] VITALS: BP 118/70; PULSE 89; RESP 16; TEMP 36.9; O2SAT 99; BMI 26.1
--- NOTE | 2023-04-20 15:30 | PC.NURSE ---
report given to chris henson
--- NOTE | 2023-04-20 16:07 | ECG_ITS ---
APPROVED REPORT Exam: Resting ECG HR:84 bpm ECG Measurements Heart Rate 84 AXES AR 146 P 71 QRSd 97 QRS 72 QT 343 T 61 QTc 383 Conclusion SINUS RHYTHM POSSIBLE RIGHT VENTRICULAR CONDUCTION DELAY [RSR (QR) IN V1/V2] BORDERLINE ECG UNCONFIRMED REPORT Electronically signed by : Luciano Falk MD 04/21/2023 19:57:17
[2023-04-20 16:17] VITALS: BMI 25.2
[2023-04-20 16:38] LABS: Basophils % 0.6 % (0.1-2.0); Eosinophils # 0.3 K/mm3 (0.0-0.4); Eosinophils % 4.2 % (0.1-12.0); Hemoglobin 11.8 g/dL (12.2-16.2); Lymphocytes # 2.9 K/mm3 (0.7-4.5); Lymphocytes % 41.9 % (10-50); Mean Corpuscular HGB Conc 31.2 g/dL (31.8-35.4); Mean Corpuscular Hemoglobin 27.4 pg (27.0-31.2); Mean Corpuscular Volume 88.1 fl (81-99); Mean Platelet Volume 8.1 fl (7.4-10.4); Monocytes # 0.3 K/mm3 (0.1-1.0); Neutrophils # 3.3 K/mm3 (1.8-7.8); Neutrophils % 48.4 % (37.0-80.0); Platelet Count 229 K/mm3 (142-424); Red Blood Count 4.32 M/mm3 (4.20-5.40); Red Cell Distribution Width 15.1 % (11.5-17.5); White Blood Count 6.9 K/mm3 (4.8-10.8)
--- NOTE | 2023-04-20 16:44 | PC.NURSE ---
called [facility] for transfer to [facility] for SI
[2023-04-20 16:45] LABS: Chloride 105 mmol/L (98-107); Potassium 4.4 mmoL/L (3.5-5.1); Sodium 142 mmol/L (136-145)
[2023-04-20 16:47] LABS: Alanine Aminotransferase 25 U/L (12-78); Aspartate Amino Transferase 40 U/L (14-36); Blood Urea Nitrogen 13 mg/dl (7-17); Creatinine Clearance Estimated 83 mL/min (50-200); Estimated Glomerular Filt Rate 62 ml/min (>60); GFR (African American) 75 ML/MIN (>60)
[2023-04-20 16:48] LABS: Albumin Level 4.2 g/dl (3.5-5.0); Albumin/Globulin Ratio 1.1 (1.1-1.8); Alkaline Phosphatase 108 U/L (38-126); Anion Gap 16.4 mEq/L (5-15); Bilirubin,Total 0.2 mg/dl (0.2-1.3); Calcium 9.3 mg/dl (8.4-10.2); Carbon Dioxide 25 mmol/L (22.0-30.0); Globulin 3.7 g/dL (1.3-3.2); Glucose 119 mg/dl (74-100); Total Protein,Serum 7.9 g/dl (6.3-8.2)
[2023-04-20 16:50] LABS: Acetaminophen < 10 ug/ml (10-30); Salicylate < 1.0 mg/dL (2.0-20.0)
--- NOTE | 2023-04-20 16:50 | PC.NURSE ---
Addendum entered by Marisabel Palacios, DARCY 04/20/23 17:09: pt accepted to [facility] Original Note: Dr Urrutia speaking with Dr Henry at [facility]
[2023-04-20 16:51] LABS: Microscopic, Urine URINE MICROSCOPIC (MICROSCOPIC)
[2023-04-20 17:10] LABS: Amphetamine/Metha Screen,Urine Negative ng/ml (<1000); Benzodiazepines Screen,Urine Positive ng/ml (<200)
[2023-04-20 17:11] LABS: Barbiturates Screen,Urine Negative ng/ml (<200)
[2023-04-20 17:12] LABS: Ethyl Alcohol < 10 mg/dl (0-10)
[2023-04-20 17:12] LABS: Cannabinoid Screen,Urine Positive ng/ml (<50); Methadone Screen,Urine Negative ng/ml (<300)
--- NOTE | 2023-04-20 17:12 | HMH.EDGENADL ---
Discharge Plan Disposition Patient Disposition: Xfer Short-Term Hosp Prescriptions Prescriptions: No Action alprazolam 0.5 mg tablet 0.5 mg PO TIDP PRN (Reason: Anxiety) Qty: 30 Patient Comments: TAKE 1 TABLET BY MOUTH EVERY 8 HOURS NEEDED FOR ANXIETY MAY CAUSEDROWSINESS pregabalin 200 mg capsule 200 mg PO BID pantoprazole 40 mg tablet,delayed release (DR/EC) 40 mg PO DAILY furosemide 40 mg tablet 40 mg PO NEEDED PRN (Reason: swelling) Rx Instructions: TAKE ONE TABLET BY MOUTH EVERY DAY spironolactone 25 mg tablet See Rx Instructions .ROUTE .COMPLEX Rx Instructions: TAKE ONE TABLET BY MOUTH EVERY DAY promethazine 12.5 mg tablet 12.5 mg PO BID PRN (Reason: nausea/vomiting) misoprostol 200 mcg tablet 200 mcg PO BID desvenlafaxine succinate [Pristiq] 50 mg Tablet Extended Release 24 Hr 50 mg PO DAILY buspirone 10 MG tablet 10 mg PO BID famotidine 20 mg tablet 20 mg PO BID Referrals Follow up/Referrals: Luciano Falk MD [Primary Care Provider] - See instructions Clinical Impressions Clinical Impression: Psychiatric care Stand Alone Forms Stand Alone Forms: Transfer Record - ED Discharge ED Provider: William Vera General Adult HPI General Chief complaint: Psychiatric Symptoms Stated complaint: SI Time Seen by Provider: 04/20/23 16:23 Mode of Arrival: Ambulatory Source of Information: Patient Limitations: No Limitations Description of Symptoms (Recalled from ER Triage Doc. by RN): Pt reports here r/t thoughts of self harm, states she spoke with her couselor this morning who recommended she come to the ER to seek help, pt requesting admission. Pt reports intrusive thoughts (that got worse lastnight) about her dog dying a few years ago and the images of the what that looked like. pt states the vet didn't do it right . Pt also reports intrusive thoughts of hearing voices of her estranged saying things to her about being worthless , making me kill myself by driving me insane . Pt reports visual hallucinations that she has had for several months but have been getting worse in the past couple days. Pt reports visuals of gutting herself and frequent visuals of shimmering figures . History of Present Illness HPI narrative: Patient is a 37-year-old female with history of anxiety, depression, previous suicide ideation presenting to the emergency department suicidal ideation. Patient is reporting intrusive thoughts about stabbing herself. She reports that she has thoughts of taking a knife and gutting herself. Patient reports that she is scared to do the dishes because she is afraid she is going to kill herself. Patient reports that she is engaged in self-harm by trying to break her fingers and punching things. She has not done this in a few days and reports no pain right now. Patient's been hospitalized once previously in 2014 for similar symptoms. Patient is interested in hospitalization as she is scared to be alone right now. She reports that she does not have a plan to act on these thoughts but if she would, she would stab herself. Related Data Home Medications Medication Instructions Recorded Confirmed alprazolam 0.5 mg tablet 0.5 mg PO TIDP PRN Anxiety #30 tabs 01/12/19 04/20/23 buspirone 10 mg tablet 10 mg PO BID Anxiety 07/26/20 04/17/23 pregabalin 200 mg capsule 200 mg PO BID RLS 02/05/21 04/20/23 pantoprazole 40 mg tablet,delayed 40 mg PO DAILY STOMACH 08/18/22 04/17/23 release famotidine 20 mg tablet 20 mg PO BID STOMACH 01/21/23 04/17/23 furosemide 40 mg tablet 40 mg PO NEEDED PRN swelling 03/13/23 04/20/23 spironolactone 25 mg tablet See Rx Instructions .Route 03/13/23 04/20/23 .COMPLEX BP desvenlafaxine succinate 50 mg 50 mg PO DAILY Depression 04/20/23 04/20/23 tablet,extended release 24 hr (Pristiq) misoprostol 200 mcg tablet 200 mcg PO BID stomach 04/20/23 04/20/23 margarita
[2023-04-20 17:13] LABS: Cocaine Screen,Urine Negative ng/ml (<300)
[2023-04-20 17:14] LABS: Opiate Screen,Urine Negative ng/ml (<300); Phencyclidine Screen,Urine Negative ng/ml (<25)
[2023-04-20 17:26] LABS: Color,Urine Yellow (Yellow)
[2023-04-20 17:27] LABS: Appearance,Urine Slightly Cloudy (Clear); Protein,Urine Negative (Negative); Specific Gravity, Urine >= 1.030 (1.005-1.030)
[2023-04-20 17:28] LABS: Bilirubin,Urine Negative (Negative); Blood, Urine 1+ (Negative); Glucose,Urine (UA) Negative (Negative); Ketones,Urine Negative (Negative); Leukocyte Esterase,Urine Negative (Negative); Nitrate,Urine Negative (Negative); Squamous Epithelial Cell,Urine Occasional #/hpf (0-5); Urobilinogen,Urine 0.2 EU/dl (0.2)
--- NOTE | 2023-04-20 19:12 | PC.NURSE ---
staff at bedside
[2023-04-20 21:10] VITALS: BP 106/68; PULSE 85; RESP 16; TEMP 36.7; O2SAT 100
== END 2023-04-20 21:11 | disposition short-term general hospital (02) ==
PROVIDERS: Emergency Provider Emergency Medicine; PCP Internal Medicine Adolescent Medicine
DX: R45.851 Suicidal ideations (principal); R44.1 Visual hallucinations; F41.9 Anxiety disorder, unspecified; F32.A Depression, unspecified; I48.91 Unspecified atrial fibrillation; J45.909 Unspecified asthma, uncomplicated; R01.1 Cardiac murmur, unspecified; K21.9 Gastro-esophageal reflux disease without esophagitis; E78.5 Hyperlipidemia, unspecified; I10 Essential (primary) hypertension; G47.33 Obstructive sleep apnea (adult) (pediatric); I47.1 Supraventricular tachycardia; Z86.711 Personal history of pulmonary embolism
CPT/HCPCS: 36415; 80053; 80305; 80329; 81001; 85025; 93005; 99285

== ENCOUNTER 2023-06-23 13:57 | Day surgery (SDC) | payer OTHER, SELFPAY ==
[2023-06-23 14:05] VITALS: BP 131/71; PULSE 105; RESP 16; O2SAT 96; BMI 25.8
[2023-06-23 14:41] VITALS: BP 137/98; PULSE 60; RESP 18
[2023-06-23 14:42] VITALS: BP 137/98; PULSE 60; RESP 18; O2SAT 96
--- NOTE | 2023-06-23 14:48 | P.PCN_ITS ---
Procedure Date: 06/23/23 Time: 14:30 Anesthesiologist:: Akil Avila CRNA Complications:: None Pre-procedure Diagnosis:: Degenerative disc lumbar spine multilevel lumbar spine. Lumbar radiculopathy. Post-procedure Diagnosis:: Same. Indications for Procedure:: Patient is a pleasant 38-year-old female that comes our clinic today for intrathecal pain pump interrogation refill. Patient currently being managed with morphine sulfate 1 mg/mL at a rate of 0.1466 mg/day. She is doing very we ll to current settings. She does not request any changes. Patient does not report any side effects or complications regarding intrathecal management. Procedure Details:: Details of the procedure explained to the patient. The patient taken procedure room placed in sitting position. The area of the pump is cleansed using chlorhexidine's cleansing solution. The pump was interrogated. The pump was accessed with ease using a 22-gauge inch and half needle. 3.5 mL solution was withdrawn discarded appropriately. The pump was then filled with 20 cc of a solution containing morphine sulfate 1 mg/mL. Patient tolerated procedure without difficulty. No complications. Pump rate will continue at a rate of 0.1466 mg/day Plan and Disposition:: Patient was discharged without incident.
[2023-06-23 14:50] VITALS: BP 116/68; PULSE 93; RESP 16; O2SAT 96
== END 2023-06-23 14:50 | disposition home or self-care (01) ==
LOC: SC.PAINP 13:57
PROVIDERS: PCP Internal Medicine Adolescent Medicine; Visit Provider Nurse Anesthetist, Certified Registered
DX: M51.16 Intervertebral disc disorders with radiculopathy, lumbar region (principal); Z97.8 Presence of other specified devices
CPT/HCPCS: 95991

== ENCOUNTER → 2023-07-07 10:44 | Outpatient (CLI) | payer OTHER, SELFPAY ==
--- NOTE | 2023-07-07 10:48 | XR_ITS ---
FINAL REPORT CLINICAL HISTORY: right hip pain COMPARISON: None FINDINGS: RIGHT HIP Two views of the right hip demonstrate no acute fracture or dislocation. The joint spaces appear normal. The visualized bony structures are well aligned. No soft tissue abnormality is seen. IMPRESSION: No acute bony abnormality. Reviewed, Interpreted and Dictated by Paul Cordero III, MD Transcribed by Sakshi Valdez Authenticated and [facility]
--- NOTE | 2023-07-07 10:48 | XR_ITS ---
FINAL REPORT CLINICAL HISTORY: left hip pain COMPARISON: None FINDINGS: LEFT HIP: Two views of the left hip demonstrate no acute fracture or dislocation. The joint spaces appear normal. The visualized bony structures are well aligned. No soft tissue abnormality is seen. IMPRESSION: No acute bony abnormality. Reviewed, Interpreted and Dictated by Paul Cordero III, MD Transcribed by Sakshi Valdez Authenticated and [facility]
== END ==
PROVIDERS: PCP Internal Medicine Adolescent Medicine; Visit Provider Orthopaedic Surgery
DX: M25.551 Pain in right hip (principal); M25.552 Pain in left hip
CPT/HCPCS: 73502

== ENCOUNTER 2023-08-06 15:36 | Emergency (ER) | payer OTHER, SELFPAY ==
[2023-08-06 15:37] VITALS: BP 118/82; PULSE 87; RESP 20; TEMP 36.6; O2SAT 97; BMI 25.8
--- NOTE | 2023-08-06 15:42 | ECG_ITS ---
APPROVED REPORT Exam: Resting ECG HR:82 bpm ECG Measurements Heart Rate 82 AXES SC 165 P 73 QRSd 101 QRS 72 QT 373 T 64 QTc 411 Conclusion SINUS RHYTHM POSSIBLE RIGHT VENTRICULAR CONDUCTION DELAY [RSR (QR) IN V1/V2] BORDERLINE ECG UNCONFIRMED REPORT Electronically signed by : Luciano Falk MD 08/06/2023 19:43:16
--- NOTE | 2023-08-06 15:54 | CT_ITS ---
PROCEDURE INFORMATION: Exam: CT Head Without Contrast Exam date and time: 08/06/2023 4:39 PM Age: 38 years old Clinical indication: Syncope and collapse; Additional info: Near syncope, new headache TECHNIQUE: Imaging protocol: Computed tomography of the head without contrast. Radiation optimization: All CT scans at this facility use at least one of these dose optimization techniques: automated exposure control; mA and/or kV adjustment per patient size (includes targeted exams where dose is matched to clinical indication); or iterative reconstruction. REPORTING DATA: Count of CT and Cardiac NM exams in prior 12 months: This patient has received 2 known CTs and 0 known cardiac nuclear medicine studies in the 12 months prior to the current study. COMPARISON: US CA CAROTID DUPLEX BI 02/13/2021 9:11 AM FINDINGS: Brain: Normal. No hemorrhage. Unremarkable white matter. No mass effect. Cerebral ventricles: No ventriculomegaly. Paranasal sinuses: Visualized sinuses are unremarkable. No fluid levels. Mastoid air cells: Visualized mastoid air cells are well aerated. Bones/joints: Unremarkable. No acute fracture. Soft tissues: Unremarkable. IMPRESSION: No acute intracranial abnormality.
--- NOTE | 2023-08-06 15:56 | XR_ITS ---
PROCEDURE INFORMATION: Exam: XR Chest Exam date and time: 08/06/2023 4:43 PM Age: 38 years old Clinical indication: Other: Cp, syncope; Additional info: Chest pain, near syncope TECHNIQUE: Imaging protocol: Radiologic exam of the chest. Views: 2 views. COMPARISON: CT ANGIO CHEST PE PROTOCOL 07/31/2022 11:11 PM FINDINGS: Lungs: 10 mm calcified granuloma noted in the right upper lobe. No active pulmonary infiltrate. Pleural spaces: Unremarkable. No pleural effusion. No pneumothorax. Heart/Mediastinum: Unremarkable. No cardiomegaly. Bones/joints: Mild thoracic scoliosis and multilevel degenerative disc disease. No acute fracture. IMPRESSION: No active disease
[2023-08-06 16:00] VITALS: PULSE 79; O2SAT 100
[2023-08-06 16:06] LABS: Basophils # 0.1 K/mm3 (0-0.2); Basophils % 0.7 % (0.1-2.0); Eosinophils # 1.1 K/mm3 (0.0-0.4); Eosinophils % 12.3 % (0.1-12.0); Hematocrit 33.6 % (37.0-47.0); Hemoglobin 11.3 g/dL (12.2-16.2); Lymphocytes # 2.4 K/mm3 (0.7-4.5); Lymphocytes % 28.4 % (10-50); Mean Corpuscular HGB Conc 33.5 g/dL (31.8-35.4); Mean Corpuscular Hemoglobin 26.1 pg (27.0-31.2); Mean Platelet Volume 8.8 fl (7.4-10.4); Monocytes # 0.8 K/mm3 (0.1-1.0); Monocytes % 9.3 % (1.7-9.3); Neutrophils # 4.2 K/mm3 (1.8-7.8); Neutrophils % 49.2 % (37.0-80.0); Platelet Count 249 K/mm3 (142-424); Red Blood Count 4.31 M/mm3 (4.20-5.40); Red Cell Distribution Width 16.4 % (11.5-17.5); White Blood Count 8.5 K/mm3 (4.8-10.8)
[2023-08-06 16:26] LABS: Chloride 104 mmol/L (98-107); Potassium 4.4 mmoL/L (3.5-5.1); Sodium 141 mmol/L (136-145)
[2023-08-06 16:28] LABS: Blood Urea Nitrogen 15 mg/dl (7-17); Creatinine Clearance Estimated 95 mL/min (50-200); Estimated Glomerular Filt Rate 62 ml/min (>60); GFR (African American) 75 ML/MIN (>60)
[2023-08-06 16:29] LABS: Alanine Aminotransferase 19 U/L (12-78); Albumin Level 4.2 g/dl (3.5-5.0); Albumin/Globulin Ratio 1.2 (1.1-1.8); Alkaline Phosphatase 88 U/L (38-126); Anion Gap 9.4 mEq/L (5-15); Aspartate Amino Transferase 54 U/L (14-36); Bilirubin,Total 0.5 mg/dl (0.2-1.3); Calcium 8.4 mg/dl (8.4-10.2); Carbon Dioxide 32 mmol/L (22.0-30.0); Globulin 3.5 g/dL (1.3-3.2); Glucose 93 mg/dl (74-100); Total Protein,Serum 7.7 g/dl (6.3-8.2)
[2023-08-06 16:31] LABS: HCG Qualitative, Serum Negative (Negative)
[2023-08-06 16:44] LABS: Troponin I < 0.01 ng/ml (0.00-0.034)
[2023-08-06 16:47] LABS: T4 (Thyroxine) 8.9 ug/dl (5.53-11.0)
[2023-08-06 16:56] LABS: D-Dimer 0.84 ug/mL (0.0-0.5)
[2023-08-06 17:01] LABS: Thyroid Stimulating Hormone 0.98 uIU/mL (0.465-4.68)
--- NOTE | 2023-08-06 17:01 | HMH.EDGENADL ---
Discharge Plan Disposition Patient Disposition: Home, Self-Care Condition: Good Prescriptions Prescriptions: No Action alprazolam 0.5 mg tablet 0.5 mg PO TIDP PRN (Reason: Anxiety) Qty: 30 Patient Comments: TAKE 1 TABLET BY MOUTH EVERY 8 HOURS NEEDED FOR ANXIETY MAY CAUSEDROWSINESS pregabalin 200 mg capsule 200 mg PO BID pantoprazole 40 mg tablet,delayed release (DR/EC) 40 mg PO DAILY furosemide 40 mg tablet 40 mg PO NEEDED PRN (Reason: swelling) Rx Instructions: TAKE ONE TABLET BY MOUTH EVERY DAY spironolactone 25 mg tablet See Rx Instructions .ROUTE .COMPLEX Rx Instructions: TAKE ONE TABLET BY MOUTH EVERY DAY promethazine 12.5 mg tablet 12.5 mg PO BID PRN (Reason: nausea/vomiting) misoprostol 200 mcg tablet 200 mcg PO BID desvenlafaxine succinate [Pristiq] 50 mg Tablet Extended Release 24 Hr 50 mg PO DAILY cyclobenzaprine 10 mg tablet 10 mg PO TID PRN (Reason: Anxiety) Patient Comments: TAKE ONE TABLET BY MOUTH THREE TIMES DAILY NEEDED hydroxyzine pamoate 50 mg capsule 50 mg PO Q4-6H PRN (Reason: Anxiety) Patient Comments: TAKE ONE CAPSULE BY MOUTH EVERY 4 HOURS NEEDED MAY CAUSE DROWSINESS quetiapine 100 mg tablet See Rx Instructions .ROUTE .COMPLEX Patient Comments: TAKE ONE TABLET BY MOUTH EVERY DAY AT BEDTIME Rx Instructions: 100 mg orally colestipol 1 gram tablet 1 g PO DAILY Patient Comments: TAKE ONE TABLET BY MOUTH ONCE DAILY DIRECTED lamotrigine 100 mg tablet 100 mg PO BID Patient Comments: TAKE ONE TABLET BY MOUTH TWICE DAILY metoclopramide HCl 10 mg tablet 10 mg PO BID Patient Comments: TAKE ONE TABLET BY MOUTH TWICE DAILY buspirone 10 MG tablet 10 mg PO BID famotidine 20 mg tablet 20 mg PO BID Referrals Follow up/Referrals: Provider,Referral, MD [Primary Care Provider] - See instructions Activity Restrictions/Add. Instructions Additional Instructions/Restrictions: You were evaluated in the emergency department today. Please make sure that you are staying hydrated and eating a well-balanced diet. Follow-up with your primary care provider for reassessment. Return to the emergency department for new or worsening symptoms. Clinical Impressions Clinical Impression: Pre-syncope Instructions Patient Instructions: DI for Syncope in Adults (Fainting) Discharge ED Provider: Karen Walter General Adult HPI General Chief complaint: Hyper/Hypoglycemia Stated complaint: syncope Time Seen by Provider: 08/06/23 15:40 Mode of Arrival: EMS Source of Information: Patient and EMS Limitations: No Limitations Description of Symptoms (Recalled from ER Triage Doc. by RN): pt was walking into eye dr appt and felt weak and shaky with no loc, per ems fbs was 72 and they gave her oral glucose and patient started to feel better and perk up. pt states she is 3 days late passed her migraine shot and didnt know if that would affect it or not. History of Present Illness HPI narrative: This patient is a 38-year-old female with a history of Estevan-Danlos, tachycardia, migraines, LEONORA, previous history of gastric bypass surgery, hypertension, GERD, asthma, anxiety, MDD, presyncope presenting to the emergency department for presyncope. Patient reports that she was walking into go to the eye doctor when she reached out to pull on the door handle, and she felt a wave come over her body like she was going to pass out. She states that she felt shaky and weak. She did not lose consciousness. EMS noted a fingerstick blood glucose was 72. They gave her some oral glucose, and she felt better. She states that at this time, she is feeling okay except she has a headache. She states that she has had a headache since yesterday on the left posterior aspect of her head, which is different from her usual migraines which are typically on the right side
[2023-08-06 17:10] LABS: Coronavirus 19, PCR Not Detected (NotDetected); Influenza A, PCR Not Detected (NotDetected); Influenza B, PCR Not Detected (NotDetected)
[2023-08-06 18:13] VITALS: BP 101/71; BP 104/72; BP 105/78; PULSE 70; PULSE 73; PULSE 80
[2023-08-06 19:25] LABS: Troponin I < 0.01 ng/ml (0.00-0.034)
--- NOTE | 2023-08-06 19:49 | PC.NURSE ---
Updated patient and family
[2023-08-06 19:58] VITALS: BP 100/67; PULSE 78; RESP 18; TEMP 36.7; O2SAT 100
== END 2023-08-06 20:00 | disposition home or self-care (01) ==
PROVIDERS: Emergency Provider Emergency Medicine
DX: R55 Syncope and collapse (principal); Q79.60 Ehlers-Danlos syndrome, unspecified; I10 Essential (primary) hypertension; K21.9 Gastro-esophageal reflux disease without esophagitis; I48.0 Paroxysmal atrial fibrillation; J45.909 Unspecified asthma, uncomplicated; E78.5 Hyperlipidemia, unspecified; Z86.718 Personal history of other venous thrombosis and embolism; G43.909 Migraine, unspecified, not intractable, without status migrainosus
CPT/HCPCS: 70450; 71046; 80053; 83735; 84436; 84443; 84484; 84703; 85025; 85378; 87636; 93005; 96361; 96374; 96375; 99285; J0131

== ENCOUNTER 2023-09-01 15:17 | Outpatient (CLI) | payer OTHER, SELFPAY ==
--- NOTE | 2023-09-01 15:21 | XR_ITS ---
FINAL REPORT CLINICAL HISTORY: EVAULATE PAIN PUMP PRIOR TO MRI. FINDINGS: TWO-VIEW ABDOMEN There is a nonspecific, nonobstructive bowel gas pattern. No bowel dilation is identified. No abnormal calcification is seen. There is no free air. The pain pump is not oriented 90 degrees to the Z axis. The pain pump is oriented approximately 16 degrees with respect to the z-axis. IMPRESSION: Location of pain pump as detailed above. Reviewed, Interpreted and Dictated by Paul Cordero III, MD Transcribed by Chacha Park Authenticated and [facility]
--- NOTE | 2023-09-01 15:40 | MR_ITS ---
FINAL REPORT CLINICAL HISTORY: bilateral hip pain. COMPARISON: None FINDINGS: Multiplanar MR imaging of the left hip was performed without contrast. There is no evidence of fracture or dislocation. There is no evidence of avascular necrosis. No bony mass is identified. No labral tear is identified. No significant joint effusion is seen. The tendons are intact. There is abnormal signal in the inferior aspect of the gluteus medius muscle, that may represent mild injury to the muscle. There is also fluid lateral to the greater trochanter, likely bursitis. No soft tissue mass or cyst is identified. IMPRESSION: Abnormal signal in the inferior aspect of the gluteus medius muscle, may represent mild injury to the muscle. Fluid lateral to the greater trochanter, likely trochanteric bursitis. Reviewed, Interpreted and Dictated by Paul Cordero III, MD Transcribed by Sakshi Valdez Authenticated and [facility]
--- NOTE | 2023-09-01 15:40 | MR_ITS ---
FINAL REPORT CLINICAL HISTORY: bilaTeral hip pain. FINDINGS: Multiplanar MR imaging of the right hip was performed without contrast. There is no evidence of fracture or dislocation. There is no evidence of avascular necrosis. No bony mass is identified. No labral tear is identified. No significant joint effusion is seen. The tendons are intact. The musculature is intact. There is fluid adjacent to the greater trochanter, may represent greater trochanteric bursitis. IMPRESSION: Findings may represent greater trochanteric bursitis. Reviewed, Interpreted and Dictated by Paul Cordero III, MD Transcribed by Chacha Park Authenticated and [facility]
== END 2023-09-01 23:59 ==
PROVIDERS: Visit Provider Orthopaedic Surgery
DX: M25.551 Pain in right hip (principal); M25.552 Pain in left hip
CPT/HCPCS: 73721; 74019

== ENCOUNTER 2023-09-15 11:00 | Day surgery (SDC) | payer OTHER, SELFPAY ==
[2023-09-15 11:14] VITALS: BP 125/75; PULSE 82; RESP 18; O2SAT 97; BMI 25.1
--- NOTE | 2023-09-15 11:40 | EXP.PAIN.PRO ---
Procedure Date: 09/15/23 Time: 11:30 Anesthesiologist:: Akil Avila CRNA Complications:: None Pre-procedure Diagnosis:: Degenerative disc lumbar spine multilevels. Lumbar radiculopathy. Post-procedure Diagnosis:: Same. Indications for Procedure:: Patient is a very pleasant 38-year-old female comes our clinic today for intrathecal pain pump interrogation refill. She is currently being managed with morphine sulfate 1 mg/mL rate of 0.1466 mg/day. She is doing very well with her current settings. She is not requesting any changes. She does not report any side effects or complications. Procedure Details:: Details of the procedure explained to the patient. Patient taken to procedure room placed in the sitting position. The area of the pumps cleansed using chlorhexidine's cleansing solution. The pump was interrogated. The pump was accessed with ease using a 22-gauge inch and half needle. 5.5 mL of solution was withdrawn discarded appropriate. The pump was then filled with 20 cc of solution containing morphine sulfate 1 mg/mL. Patient tolerated procedure without difficulty. There are no complications. Plan and Disposition:: Patient was discharged without incident.
[2023-09-15 11:45] VITALS: BP 117/72; PULSE 72; RESP 18; O2SAT 97
[2023-09-15 12:06] VITALS: BP 123/87; PULSE 79; RESP 18; O2SAT 99
== END 2023-09-15 11:45 | disposition home or self-care (01) ==
PROVIDERS: PCP Internal Medicine Adolescent Medicine; Visit Provider Nurse Anesthetist, Certified Registered
DX: M51.16 Intervertebral disc disorders with radiculopathy, lumbar region (principal); Z97.8 Presence of other specified devices; Z45.1 Encounter for adjustment and management of infusion pump
CPT/HCPCS: 95991

== ENCOUNTER → 2023-09-16 11:50 | Outpatient (POV) | payer OTHER, SELFPAY ==
[2023-09-16 12:00] VITALS: BP 105/66; PULSE 76; RESP 20; O2SAT 98; BMI 25.1
--- NOTE | 2023-09-16 12:33 | A.OFFVIS_ITS ---
[facility] Pain Management SOAP Note Subjective:: Patient is a pleasant 38-year-old female who presents today for follow-up. Currently treating the patient for degenerative disc disease of lumbar spine with lumbar radiculopathy symptoms. Today she rates her pain a 5 out of 10. Patient denies any new trauma or injury or any change location or type of pain she experiences. Patient states that she had her intrathecal pump refilled yesterday and then later when she was at home last night she felt like the pump had moved and was sticking more out along the lateral side. Patient states she was concerned whether or not it had flipped and was going to cause additional issues. Patient is currently managed with morphine 1 mg/mL with a daily dose of 0.1466 mg/day. Patient denies any side effects from this medication. Patient is prescribed pregabalin 200 mg twice daily and alprazolam 0.5 mg 3 times a day from her PCP Dr. Her Montiel has been reviewed and is appropriate. Review of Systems: General: No recent weight changes, no fever, no sleep disturbances Respiratory: No cough, no shortness of air, no recurring pulmonary infections Cardiovascular/peripheral vascular: No chest pain, no palpitations, no edema, no shortness of breath Gastrointestinal: No new onset incontinence, normal bowel movements reported Genitourinary: No new onset incontinence Musculoskeletal: Low back pain Psychiatric: [Normal mood/affect] Neurological: [Denies weakness in extremities], [denies balance issues] Objective:: Physical Exam: General: Alert and oriented x3, no acute distress, pleasant and cooperative Lungs: Respirations even and unlabored, symmetrical chest expansion Eyes: PERRL Musculoskeletal: Flexion and extension of lumbar [spine] somewhat guarded secondary to pain, [antalgic gait noted] Neurological: Speech clear, no gross sensory deficit Skin: Pump site is clean, dry with no erythema noted, pump is in standard position with no abnormal findings Assessment:: Degenerative disc disease lumbar spine with lumbar radiculopathy symptoms, chronic pain syndrome Plan:: I have discussed with the patient that everything appears to be within normal limits regarding her pump placement. I have counseled the patient that we will confirm that it has not flipped at her next intrathecal refill date. We had no problems scanning her device during today's visit. Patient does already have h er next intrathecal refill date and we will keep this in place. We will see the patient back in the clinic at the next intrathecal refill. Patient has been instructed to contact the clinic with any concerns before the next appointment. Dr. Jung has reviewed this note and agrees with this plan of care. This note was dictated using voice recognition software and make contain errors or omissions. -- It Is medically necessary for this patient to continue to have their intrathecal pump refilled at regular intervals. This patient had an intrathecal pain pump implanted after meeting criteria of chronic intractable pain for greater than 3 months and failing conservative treatments. Patient has committed and been compliant to the treatment plan and all planned follow up care. Since implantation of the intrathecal pain pump, the patient has had decreased pain and been more functional. Oral medications have been reduced including intake of oral opioids. Patient continues to do well with intrathecal therapy with decrease in pain symptoms and increase in functional status. Stopping intrathecal medications can lead to life threatening withdrawal, seizures, cardiac arrest, severe pain, and possible . Pumps that are not refilled at regular intervals can be damages and cause and need for replacement. We continually titrate dose and concentration to optimize pain relief and function. We are limited in concentration for certain drugs to safely deliver medications through the pump and stay within the recommendations from the Polyanalgesic Consensus Committee Guidelines. Depending on dose and concentration these pumps may need to be refilled sooner than 3 months as we titrate. [facility] Disclaimer: The information contained in this section may have been updated after the patient was seen, as this information can be updated by other users. Medical History Afib Anxiety Arrhythmia Asthma DVT (deep venous thrombosis) Edema Elevated left ventricular end-diastolic pressure (LVEDP) GERD (gastroesophageal reflux disease) Heart murmur History of left heart catheterization History of pulmonary embolism HLD (hyperlipidemia) HTN (hypertension) Migraine LEONORA (obstructive sleep apnea) Osteoarthritis Pulmonary embolism SVT (supraventricular tachycardia) Surgical History H/O foot surgery H/O knee surgery History of bariatric surgery History of cholecystectomy History of esophageal surgery History of exploratory laparotomy History of lumpectomy of left breast Previous back surgery Family History Other Family history of cancer Family history of hypertension Social History Smoking Status: Current every day smoker tobacco type: cigarettes packs per day: 4 second hand exposure: No alcohol intake: never substance use type: marijuana current occupational status: other Travel in the last 8 weeks: None household members: spouse housing: house number of children: 0 current occupational exposures/hazards: No caffeine: No
== END ==
LOC: SC.PAIN 11:50
PROVIDERS: Visit Provider Nurse Practitioner Family
DX: M51.16 Intervertebral disc disorders with radiculopathy, lumbar region (principal); G89.4 Chronic pain syndrome; Z97.8 Presence of other specified devices
CPT/HCPCS: 99212; G0463

== ENCOUNTER 2023-09-25 10:48 | Outpatient (POV) | payer OTHER, SELFPAY ==
[2023-09-25 10:58] VITALS: BP 112/72; PULSE 82; RESP 18; O2SAT 100; BMI 25.1
--- NOTE | 2023-09-25 13:27 | P.PCN_ITS ---
Procedure Date: 09/25/23 Time: 13:27 Anesthesiologist:: Valentin Jung MD Complications:: None Pre-procedure Diagnosis:: Degenerative disc disease of lumbar spine with lumbar radiculopathy symptoms Post-procedure Diagnosis:: Same Indications for Procedure:: This patient is a pleasant 38-year-old white female who we are treating for low back pain with lumbar radiculopathy symptoms. She is having some increasing pain in her mid back area and she is also concerned about movement of her pump. Will take a look at her pump under fluoroscopy to confirm that it is not flipped and or moved around. Also we we will increase her intrathecal infusion today to see if this will give her relief of her pain symptoms. Procedure Details:: Adjustment of intrathecal pain pump. Informed consent was obtained the risk and benefits of the procedure were e xplained to the patient. The patient was taken the procedure room. We did look at the pump under fluoroscopy the pump is in appropriate position. The pump was not flipped or turned around. I did reassure the patient that the pump was in the proper position. We then interrogated the pump and increase her intrathecal morphine infusion to 0.2 mg/day. We also increased PTM boluses to 0.02 mg up to 8 times a day with a 3-hour lockout. The patient tolerated the procedure well with no complications. Patient does have antalgic gait. Motor strength of lower extremities is 5/5. There is no gross sensory deficit. Patient refill date is on 11/07/2023. Plan and Disposition:: Will follow-up with this patient in 2 weeks. Will reevaluate symptoms at that time. Her refill date is now on November 07, 2023.
== END 2023-09-25 23:59 | disposition home or self-care (01) ==
PROVIDERS: PCP Internal Medicine Adolescent Medicine; Visit Provider Nurse Practitioner Family
DX: M51.16 Intervertebral disc disorders with radiculopathy, lumbar region (principal); Z97.8 Presence of other specified devices; Z45.1 Encounter for adjustment and management of infusion pump
CPT/HCPCS: 62368; 99212; G0463

== ENCOUNTER 2023-09-30 00:53 | Emergency (ER) | payer OTHER, SELFPAY ==
[2023-09-30] VITALS (8 sets, daily range): BP systolic 91–110; BP diastolic 56–80; PULSE 57–71; RESP 12–19; TEMP 36.7–36.9; O2SAT 98–100; BMI 25.1
--- NOTE | 2023-09-30 00:54 | ECG_ITS ---
APPROVED REPORT Exam: Resting ECG HR:68 bpm ECG Measurements Heart Rate 68 AXES SC 154 P 56 QRSd 94 QRS 62 QT 422 T 52 QTc 440 Conclusion SINUS RHYTHM NORMAL ECG UNCONFIRMED REPORT Electronically signed by : Luciano Falk MD 09/30/2023 20:58:53
--- NOTE | 2023-09-30 01:03 | PC.NURSE ---
in room talking with patient at this time.
--- NOTE | 2023-09-30 01:06 | CT_ITS ---
PROCEDURE INFORMATION: Exam: CTA Chest With Contrast Exam date and time: 09/30/2023 1:33 AM Age: 38 years old Clinical indication: Pain; Chest pressure; Additional info: Chest pain, h/o pe, h/o endocarditis TECHNIQUE: Imaging protocol: Computed tomographic angiography of the chest with contrast. Exam focused on the arteries. 3D rendering (Not supervised by radiologist): MIP and/or 3D reconstructed images were created by the technologist. Radiation optimization: All CT scans at this facility use at least one of these dose optimization techniques: automated exposure control; mA and/or kV adjustment per patient size (includes targeted exams where dose is matched to clinical indication); or iterative reconstruction. Contrast material: ISOVUE; Contrast volume: 70 ml; Contrast route: INTRAVENOUS (IV); COMPARISON: CT ANGIO CHEST PE PROTOCOL 07/31/2022 11:11 PM FINDINGS: Pulmonary arteries: Normal. No pulmonary emboli. Aorta: Unremarkable. No aortic aneurysm. No aortic dissection. Lungs: Calcified granuloma within the periphery of the right upper lobe. Pleural spaces: Unremarkable. No pneumothorax. No pleural effusion. Heart: Unremarkable. No cardiomegaly. No pericardial effusion. Lymph nodes: Calcified right hilar lymph node, compatible with prior granulomatous disease. Stomach and bowel: Changes of prior gastric bypass partially visualized. Bones/joints: Unremarkable. No acute fracture. Soft tissues: Unremarkable. IMPRESSION: No acute thoracic abnormality.
[2023-09-30] MEDS: ACETAMINOPHEN 500MG TAB 1000 MG PO (01:13)
[2023-09-30] MEDS: ONDANSETRON 4MG/2ML VIAL 4 MG IV (01:15)
[2023-09-30] MEDS: MORPHINE 4MG/ML SYRINGE 4 MG IV (01:15)
--- NOTE | 2023-09-30 01:15 | ED_ITS ---
Discharge Plan Disposition Patient Disposition: Home, Self-Care Condition: Good Prescriptions Prescriptions: No Action alprazolam 0.5 mg tablet 0.5 mg PO TIDP PRN (Reason: Anxiety) Qty: 30 Patient Comments: TAKE 1 TABLET BY MOUTH EVERY 8 HOURS NEEDED FOR ANXIETY MAY CAUSEDROWSINESS pregabalin 200 mg capsule 200 mg PO BID pantoprazole 40 mg tablet,delayed release (DR/EC) 40 mg PO DAILY spironolactone 25 mg tablet See Rx Instructions .ROUTE .COMPLEX Qty: 90 4RF Dose Instruction: TAKE ONE TABLET BY MOUTH EVERY DAY Rx Instructions: TAKE ONE TABLET BY MOUTH EVERY DAY furosemide 40 mg tablet See Rx Instructions .ROUTE .COMPLEX Qty: 90 1RF Dose Instruction: TAKE ONE TABLET BY MOUTH EVERY DAY Rx Instructions: TAKE ONE TABLET BY MOUTH EVERY DAY promethazine 12.5 mg tablet 12.5 mg PO BID PRN (Reason: nausea/vomiting) misoprostol 200 mcg tablet 200 mcg PO BID desvenlafaxine succinate [Pristiq] 50 mg Tablet Extended Release 24 Hr 50 mg PO DAILY cyclobenzaprine 10 mg tablet 10 mg PO TID PRN (Reason: Anxiety) Patient Comments: TAKE ONE TABLET BY MOUTH THREE TIMES DAILY NEEDED hydroxyzine pamoate 50 mg capsule 50 mg PO Q4-6H PRN (Reason: Anxiety) Patient Comments: TAKE ONE CAPSULE BY MOUTH EVERY 4 HOURS NEEDED MAY CAUSE DROWSINESS quetiapine 100 mg tablet See Rx Instructions .ROUTE .COMPLEX Patient Comments: TAKE ONE TABLET BY MOUTH EVERY DAY AT BEDTIME Rx Instructions: 100 mg orally colestipol 1 gram tablet 1 g PO DAILY Patient Comments: TAKE ONE TABLET BY MOUTH ONCE DAILY DIRECTED lamotrigine 100 mg tablet 100 mg PO BID Patient Comments: TAKE ONE TABLET BY MOUTH TWICE DAILY metoclopramide HCl 10 mg tablet 10 mg PO BID Patient Comments: TAKE ONE TABLET BY MOUTH TWICE DAILY buspirone 10 MG tablet 10 mg PO BID famotidine 20 mg tablet 20 mg PO BID Referrals Follow up/Referrals: Woo Cleaning MD [Staff Physician] - See instructions ProviderMichelle MD [Primary Care Provider] - See instructions Activity Restrictions/Add. Instructions Additional Instructions/Restrictions: You were evaluated in the emergency department today. Please follow-up closely with your primary care provider as well as cardiology. You will need to contact them to schedule an appointment. Return to the emergency department for new or worsening symptoms. Take Tylenol at home as needed for pain. Clinical Impressions Clinical Impression: Chest pain Instructions Patient Instructions: DI for Atypical Chest Pain Discharge ED Provider: Karen Walter HPI General Chief Complaint: Chest Pain Stated Complaint: Chest pain Time Seen by Provider: 09/30/23 01:00 Mode of Arrival: Wheelchair Source of Information: Patient Limitations: No Limitations Description of Symptoms (Recalled from ER Triage Doc. by RN): Pt presents with sudden onset of chest pain that began 2 hrs ago, midsternal radiating under left breast associated with N/V, and low BP reading at home. Pt is currently 110/80. Hx of heart failure. History of Present Illness HPI narrative: This patient is a 38-year-old female with extensive past medical history including hypertension, Estevan-Danlos syndrome, history of DVT, atrial fibrillation, LEONORA, history of PE, anxiety, dizziness, palpitations, and chronic pain presented to the emergency department for evaluation with concern for chest pain. She states that it started suddenly approximately 2 hours ago. It is midsternal radiating under her left breast as well as up into her clavicle. She states she also had a low blood pressure reading at home. She notes a history of pericardial effusion as well as heart failure. She states this feels the same as when she had an effusion in the past. She denies any fevers, chills, diaphoresis, or other concerns, but she does note shortness of breath, nausea, and vomiting associated with this. Patient denies h/o IVDU. Related Data Home Medications Medication Instructions Recorded Confirmed alprazolam 0.5 mg tablet 0.5 mg PO TIDP PRN Anxiety #30 tabs 01/12/19 09/25/23 buspirone 10 mg tablet 10 mg PO BID Anxiety 07/26/20 09/25/23 pregabalin 200 mg capsule 200 mg PO BID RLS 02/05/21 09/25/23 pantoprazole 40 mg tablet,delayed 40 mg PO DAILY STOMACH 08/18/22 09/25/23 release famotidine 20 mg tablet 20 mg PO BID STOMACH 01/21/23 09/25/23 desvenlafaxine succinate 50 mg 50 mg PO DAILY Depression 04/20/23 09/25/23 tablet,extended release 24 hr (Pristiq) misoprostol 200 mcg tablet 200 mcg PO BID stomach 04/20/23 09/25/23 promethazine 12.5 mg tablet 12.5 mg PO BID PRN nausea/vomiting 04/20/23 09/25/23 colestipol 1 gram tablet 1 g PO DAILY 08/06/23 09/25/23 cyclobenzaprine 10 mg tablet 10 mg PO TID PRN Anxiety 08/06/23 09/25/23 hydroxyzine pamoate 50 mg capsule 50 mg PO Q4-6H PRN Anxiety 08/06/23 09/25/23 lamotrigine 100 mg tablet 100 mg PO BID 08/06/23 09/25/23 metoclopramide HCl 10 mg tablet 10 mg PO BID 08/06/23 09/25/23 quetiapine 100 mg tablet See Rx Instructions .Route .COMPLEX 08/06/23 09/25/23 Previous Rx's Medication Instructions Recorded spironolactone 25 mg tablet See Rx Instructions .Route 08/18/23 .COMPLEX #90 tabs furosemide 40 mg tablet See Rx Instructions .Route 08/26/23 .COMPLEX #90 tabs Allergies Allergy/AdvReac Type Severity Reaction Status Date / Time hydromorphone [From Dilaudid] Allergy Intermediate Verified 09/25/23 10:59 NSAIDS (Non-Steroidal Allergy Unknown Verified 09/25/23 10:59 Anti-Inflamma lactose AdvReac Mild Nausea Verified 09/25/23 10:59 cilantro Allergy Severe throat and Uncoded 07/07/23 15:04 tongue swells, hives on face [facility] Disclaimer: The information contained in this section may have been updated after the patient was seen, as this information can be updated by other users. Medical History Afib Anxiety Arrhythmia Asthma DVT (deep venous thrombosis) Edema Elevated left ventricular end-diastolic pressure (LVEDP) GERD (gastroesophageal reflux disease) Heart murmur History of left heart catheterization History of pulmonary embolism HLD (hyperlipidemia) HTN (hypertension) Migraine LEONORA (obstructive sleep apnea) Osteoarthritis Pulmonary embolism SVT (supraventricular tachycardia) Surgical History H/O foot surgery H/O knee surgery History of bariatric surgery History of cholecystectomy History of esophageal surgery History of exploratory laparotomy History of lumpectomy of left breast Previous back surgery Family History Other Family history of cancer Family history of hypertension Social History Smoking Status: Current every day smoker tobacco type: cigarettes packs per day: 4 second hand exposure: No alcohol intake: never substance use type: marijuana current occupational status: other Travel in the last 8 weeks: None household members: spouse housing: house number of children: 0 current occupational exposures/hazards: No caffeine: No ROS Obtained: Yes All systems reviewed & no additional complaints except as documented Physical Exam General General appearance: alert, in no apparent distress and anxious Head Head exam: atraumatic and normocephalic Eye Eye exam: Present normal appearance, PERRL and EOMI ENT ENT exam: Present normal exam, normal oropharynx, mucous membranes moist and normal external ear exam Neck Neck exam: Present normal inspection, full ROM and trachea midline; Absent tenderness Chest Chest inspection: Present normal inspection and symmetric chest wall rise; Absent tenderness Respiratory Respiratory exam: Present normal lung sounds bilaterally; Absent respiratory distress, wheezes, stridor or accessory muscle use Cardiovascular Cardiovascular exam: Present regular rate and normal rhythm Abdominal Exam Abdominal exam: Present soft; Absent distention, tenderness, guarding, rebound or rigidity Extremities Exam Extremities exam: Present normal inspection, full ROM and normal capillary refill; Absent tenderness or edema Back Exam Back exam: Present normal inspection and full ROM; Absent tenderness Neurological Exam Neurological exam: Present alert, oriented X3, CN II-XII intact and normal gait; Absent motor sensory deficit Psychiatric Psychiatric exam: Present normal affect and normal mood Skin Skin exam: Present warm and dry HEART Score HEART Score HEART Score assessment performed?: Yes History (anamnesis): Moderately suspicious ECG: Normal Age: <45 years Risk factors: 3 or more risk factors Troponin: </= normal limit HEART Score: 3 Procedures Limited Ultrasound Indication:: Limited cardiac ultrasound Indication: Chest pain Identified cardiac views: [-Cardiac parasternal long axis] [-Cardiac parasternal short axis] [-Cardiac apical four-chamber] Findings: [-Cardiac activity present -Gross wall motion normal -Pericardial effusion absent -Right heart strain absent] Impression: -[From above] Images [were saved] to permanent archive The study [was] technically adequate CPT: 39133 This study was performed by me, and I personally interpreted all images/videos. Based on my clinical judgement, these images were [adequate] and [did not] necessitate further imaging. Critical Care Critical Care Time Critical Care Time: No Medical Decision Making Medical Records Medical records reviewed: Yes I reviewed the patient's medical records. Dinesh Inquiry Pt receiving controlled substance: No Vital Signs Vital Signs: 09/30/23 00:53 09/30/23 01:00 09/30/23 02:00 Temperature 98.5 F Temperature Source Oral Pulse Rate 64 60 Pulse Rate [Left] 71 Respiratory Rate 16 16 12 Blood Pressure 109/79 L 95/56 L Blood Pressure [Right Arm] 110/80 Blood Pressure Mean 84 Blood Pressure Mean [Right Arm] 90 Blood Pressure Source Blood Pressure Source [Right Arm] Automatic Cuff Blood Pressure Position Blood Pressure Position [Right Arm] Sitting 02 Sat by Pulse Oximetry 100 98 98 Oxygen Delivery Method Room Air Room Air 09/30/23 02:30 09/30/23 03:00 09/30/23 03:30 Temperature Temperature Source Pulse Rate 68 68 62 Pulse Rate [Left] Respiratory Rate 12 13 13 Blood Pressure 91/61 L 98/65 L 96/70 L Blood Pressure [Right Arm] Blood Pressure Mean Blood Pressure Mean [Right Arm] Blood Pressure Source Blood Pressure Source [Right Arm] Blood Pressure Position Blood Pressure Position [Right Arm] 02 Sat by Pulse Oximetry 100 99 100 Oxygen Delivery Method 09/30/23 04:01 09/30/23 04:00 Temperature 98.0 F Temperature Source Oral Pulse Rate 57 L 60 Pulse Rate [Left] Respiratory Rate 19 18 Blood Pressure 96/65 L 96/65 L Blood Pressure [Right Arm] Blood Pressure Mean 69 Blood Pressure Mean [Right Arm] Blood Pressure Source Automatic Cuff Blood Pressure Source [Right Arm] Blood Pressure Position Sitting Blood Pressure Position [Right Arm] 02 Sat by Pulse Oximetry 99 Oxygen Delivery Method Room Air Room Air Lab Data Labs: Lab Results 09/30/23 00:58: WBC 10.4, RBC 4.64, Hgb 12.0 L, Hct 35.8 L, MCV 77.1 L, MCH 25.9 L, MCHC 33.6, RDW 20.9 H, Plt Count 228, MPV 8.5, Neut % (Auto) 54.1, Lymph % (Auto) 36.0, Nance % (Auto) 5.8, Eos % (Auto) 3.8, Baso % (Auto) 0.4, Neut # (Auto) 5.6, Lymph # (Auto) 3.7, Nance # (Auto) 0.6, Eos # (Auto) 0.4, Baso # (A uto) 0.0, ESR 16, Sodium 136, Potassium 4.1, Chloride 105, Carbon Dioxide 28, Anion Gap 7.1, BUN 25 H, Creatinine 0.80, Estimated Creat Clear 115, Estimated GFR 80, Est GFR ( Amer) 97, Glucose 88, Calcium 8.7, Total Bilirubin 0.2, AST 29, ALT 18, Alkaline Phosphatase 93, Troponin I < 0.01, C-Reactive Protein 1.7, Total Protein 6.7, Albumin 3.8, Globulin 2.9, Albumin/Globulin Ratio 1.3, Lipase 270 09/30/23 03:30: Troponin I < 0.01 09/30/23 00:58 09/30/23 00:58 Response Orders (Tests/Meds): ED MEDICATIONS Discontinued Medications Generic Name Dose Route Start Last Admin Trade Name Freq PRN Reason Stop Dose Admin Acetaminophen 1,000 mg 09/30/23 01:06 09/30/23 01:13 Acetaminophen 500mg Tab PO 09/30/23 01:07 1,000 mg ONCE ONE Administration Lactated Ringer's 1,000 mls @ 999 mls/hr 09/30/23 02:08 09/30/23 02:10 Lactated Ringer's 1000 Ml Bag IV 09/30/23 03:08 999 mls/hr .Q1H1M ONE Administration Iopamidol 70 ml 09/30/23 01:39 09/30/23 01:41 Iopamidol-370 (76%);100ml Bottle IV 09/30/23 01:40 70 ml ONCE ONE Administration Morphine Sulfate 4 mg 09/30/23 01:06 09/30/23 01:15 Morphine 4mg/Ml Syringe IV 09/30/23 01:07 4 mg ONCE ONE Administration Ondansetron HCl 4 mg 09/30/23 01:06 09/30/23 01:15 Ondansetron 4mg/2ml Vial IV 09/30/23 01:07 4 mg ONCE ONE Administration Sodium Chloride 10 ml 09/30/23 01:39 09/30/23 01:41 Sodium Chloride 0.9% 10ml Syr (Rad Only) IV 09/30/23 01:40 10 ml ONCE ONE Administration ORDERS Category Date Time Status CTA Chest [CT angio chest PE protocol] Stat Cat Scan 09/30/23 01:06 Completed POCUS Point of Care (ER Only) Stat Exams 09/30/23 01:06 Taken POCUS Point of Care (ER Only) Stat Exams 09/30/23 01:45 Taken C-Reactive Protein Stat Lab 09/30/23 00:58 Completed Complete Blood Count Auto Diff Stat Lab 09/30/23 00:58 Completed Comprehensive Metabolic Panel Stat Lab 09/30/23 00:58 Completed Erythrocyte Sedimentation Rate Stat Lab 09/30/23 00:58 Completed Lipase Stat Lab 09/30/23 00:58 Completed Troponin I Q3H Lab 09/30/23 03:30 Completed Troponin I Q3H Lab 09/30/23 07:15 Ordered Troponin I Stat Lab 09/30/23 00:58 Completed ECG initial Besson Routine Y 09/30/23 00:54 Completed ECG Data Tracing #1: Attestation: I reviewed this ECG and interpreted as documented below: ECG Narrative: Normal sinus rhythm with a ventricular rate of 68 beats per minute. No acute ST changes concerning for ischemia. No significant changes noted from prior EKG. ECG initial impression date: 09/30/23 ECG initial impression time: 00:59 MDM Narrative Medical Decision Narrative: In summary, this patient is a 38-year-old female presenting to the Emergency Department for evaluation of chest pain, shortness of breath, nausea, and vomiting. Differential diagnoses considered include but are not limited to viral syndrome, ACS, dysrhythmia, GERD, pericarditis, myocarditis, endocarditis. Ruling out the most morbid conditions drove assessment. On exam, the patient is very well-appearing with normal Vital signs on cardiac telemetry. She is anxious appearing. Cardiopulmonary exam is reassuring. She is afebrile and has not had fevers at home. Workup included CBC, CMP, troponin, ESR, CRP, CTA PE protocol, and bedside ultrasound. She was given IV morphine, Zofran, and oral Tylenol for symptomatic improvement. She states that she cannot take NSAIDs, including aspirin. EKG is reassuring with no acute changes. I independently interpreted CT scan prior to the radiologist read and noted pulmonary embolus, focal consolidation, or other concern. Please see their read for final interpretation. Bedside cardiac ultrasound was performed that was nonconcerning. Please see procedure note for further documentation. Labs were obtained that demonstrated negative initial troponin without other acutely concerning abnormalities. Second troponin is pending at this time. Patient did have symptomatic improvement after administration of interventions as above. Patient was placed in ED observation status at 0200 pending second troponin to determine whether or not the patient with the criteria for inpatient admission would be appropriate for discharge for further evaluation and management as an outpatient. She was provided with serial exams and continuous cardiac telemetry during this. On reassessment, the patient is in no acute distress with normal vital signs on cardiac telemetry. Second troponin is also negative. Based on reassuring workup and exam, I feel the patient is appropriate for discharge with close follow-up with her primary care provider and supervisor [employer]. I had a [id number] discussion with the patient to give her discharge instructions. Less than 30 minutes was spent preparing for discharge. She was given strict return precautions and she was discharged in stable condition after 2 hours of ED observation.
[2023-09-30 01:19] LABS: Basophils % 0.4 % (0.1-2.0); Eosinophils # 0.4 K/mm3 (0.0-0.4); Eosinophils % 3.8 % (0.1-12.0); Hematocrit 35.8 % (37.0-47.0); Lymphocytes # 3.7 K/mm3 (0.7-4.5); Mean Corpuscular HGB Conc 33.6 g/dL (31.8-35.4); Mean Corpuscular Hemoglobin 25.9 pg (27.0-31.2); Mean Corpuscular Volume 77.1 fl (81-99); Mean Platelet Volume 8.5 fl (7.4-10.4); Monocytes # 0.6 K/mm3 (0.1-1.0); Monocytes % 5.8 % (1.7-9.3); Neutrophils # 5.6 K/mm3 (1.8-7.8); Neutrophils % 54.1 % (37.0-80.0); Platelet Count 228 K/mm3 (142-424); Red Blood Count 4.64 M/mm3 (4.20-5.40); Red Cell Distribution Width 20.9 % (11.5-17.5); White Blood Count 10.4 K/mm3 (4.8-10.8)
[2023-09-30 01:24] LABS: Alanine Aminotransferase 18 U/L (12-78); Albumin Level 3.8 g/dl (3.5-5.0); Albumin/Globulin Ratio 1.3 (1.1-1.8); Alkaline Phosphatase 93 U/L (38-126); Anion Gap 7.1 mEq/L (5-15); Aspartate Amino Transferase 29 U/L (14-36); Bilirubin,Total 0.2 mg/dl (0.2-1.3); Blood Urea Nitrogen 25 mg/dl (7-17); Calcium 8.7 mg/dl (8.4-10.2); Carbon Dioxide 28 mmol/L (22.0-30.0); Chloride 105 mmol/L (98-107); Creatinine Clearance Estimated 115 mL/min (50-200); Estimated Glomerular Filt Rate 80 ml/min (>60); GFR (African American) 97 ML/MIN (>60); Globulin 2.9 g/dL (1.3-3.2); Glucose 88 mg/dl (74-100); Potassium 4.1 mmoL/L (3.5-5.1); Sodium 136 mmol/L (136-145); Total Protein,Serum 6.7 g/dl (6.3-8.2)
[2023-09-30 01:26] LABS: Lipase 270 U/L (23-300)
[2023-09-30 01:29] LABS: C-Reactive Protein 1.7 mg/L (0-4)
--- NOTE | 2023-09-30 01:29 | PC.NURSE ---
patient gone to RAD at this time.
--- NOTE | 2023-09-30 01:37 | PC.NURSE ---
patient back in room at this time.
[2023-09-30 01:39] LABS: Troponin I < 0.01 ng/ml (0.00-0.034)
[2023-09-30] MEDS: SODIUM CHLORIDE 0.9% 10ML SYR (RAD ONLY) 10 ML IV (01:41)
[2023-09-30] MEDS: IOPAMIDOL-370 (76%);100ML BOTTLE 70 ML IV (01:41)
--- NOTE | 2023-09-30 01:43 | PC.NURSE ---
at bedside with US at this time.
[2023-09-30 01:45] LABS: Erythrocyte Sedimentation Rate 16 mm/hr (0-20)
[2023-09-30] MEDS: LACTATED RINGERS 1000ML 1,000 ML 999 ML IV (02:10)
[2023-09-30 03:56] LABS: Troponin I < 0.01 ng/ml (0.00-0.034)
== END 2023-09-30 04:08 | disposition home or self-care (01) ==
PROVIDERS: Emergency Provider Emergency Medicine; PCP Internal Medicine Adolescent Medicine
DX: R07.89 Other chest pain (principal); I10 Essential (primary) hypertension; I48.0 Paroxysmal atrial fibrillation; K21.9 Gastro-esophageal reflux disease without esophagitis; E78.5 Hyperlipidemia, unspecified; F17.210 Nicotine dependence, cigarettes, uncomplicated; Z86.718 Personal history of other venous thrombosis and embolism
CPT/HCPCS: 71275; 80053; 83690; 84484; 85025; 85651; 86140; 93005; 96361; 96374; 96375; 99285; J2405; Q9967

== ENCOUNTER → 2023-12-01 10:04 | Day surgery (SDC) | payer OTHER, SELFPAY ==
[2023-12-01 10:18] VITALS: BP 124/73; PULSE 81; RESP 18; O2SAT 100; BMI 24.5
--- NOTE | 2023-12-01 10:41 | EXP.PAIN.PRO ---
Procedure Date: 12/01/23 Time: 10:30 Anesthesiologist:: Akil Avila CRNA Complications:: None Pre-procedure Diagnosis:: Degenerative disc disease lumbar spine multilevels. Lumbar radiculopathy. Post-procedure Diagnosis:: Same. Indications for Procedure:: Patient is a very pleasant 38-year-old female that comes our clinic today for intrathecal pain pump interrogation refill. She is currently being managed with morphine sulfate 1 mg/mL. She is currently at a rate of 0.2 mg/day. Patient also has access to PTM boluses 0.02 mg up to 8 times per day with a 3-hour lockout. She is doing very well since her dose was increased on 09/25/2023. She is requesting additional increase today in her intrathecal rate. Will increase her by 20%. Patient reports the previous increase did help significantly. She reports having some low lumbar back pain with activity. Procedure Details:: Details of the procedure explained to the patient. The patient taken the procedure and placed in the sitting position. The area of the pump was cleaned using chlorhexidine as a cleansing solution. The pump was interrogated. The pump was accessed with ease using a 22-gauge inch and half needle. 1.1 mL of solution was withdrawn discarded appropriate. The pump was then filled with 20 cc of solution containing morphine sulfate 2 mg/mL. The rate was increased by 20%. Her new rate will be 0.2398 mg/day patient tolerated procedure without difficulty. There are no complications Plan and Disposition:: Patient was discharged without incident.
[2023-12-01 10:42] VITALS: BP 120/76; PULSE 82; RESP 18; O2SAT 100
[2023-12-01 10:43] VITALS: BP 120/76; PULSE 77; RESP 18; O2SAT 100
== END | disposition home or self-care (01) ==
PROVIDERS: PCP Internal Medicine Adolescent Medicine; Visit Provider Nurse Anesthetist, Certified Registered
DX: M51.16 Intervertebral disc disorders with radiculopathy, lumbar region (principal); Z97.8 Presence of other specified devices; Z45.1 Encounter for adjustment and management of infusion pump
CPT/HCPCS: 62370

== ENCOUNTER 2023-12-01 17:51 | Emergency (ER) | payer OTHER, SELFPAY ==
[2023-12-01] VITALS (8 sets, daily range): BP systolic 92–123; BP diastolic 69–80; PULSE 59–81; RESP 11–17; TEMP 36.9–37.3; O2SAT 97–100; BMI 24.3
--- NOTE | 2023-12-01 | ECG_ITS ---
APPROVED REPORT Exam: Resting ECG HR:84 bpm ECG Measurements Heart Rate 84 AXES WV 154 P 59 QRSd 100 QRS 62 QT 371 T 54 QTc 412 Conclusion SINUS RHYTHM POSSIBLE RIGHT VENTRICULAR CONDUCTION DELAY [RSR (QR) IN V1/V2] NONSPECIFIC T-WAVE ABNORMALITY BORDERLINE ECG UNCONFIRMED REPORT Electronically signed by : HARESH SANDHU, 12/02/2023 06:52:06
--- NOTE | 2023-12-01 17:56 | XR_ITS ---
PROCEDURE INFORMATION: Exam: XR Chest Exam date and time: 12/01/2023 6:19 PM Age: 38 years old Clinical indication: Angina pectoris; Patient HX: Chest pain , pain down left arm TECHNIQUE: Imaging protocol: Radiologic exam of the chest. Views: 2 views. COMPARISON: CT ANGIO CHEST PE PROTOCOL 09/30/2023 1:33 AM FINDINGS: Lungs: Densely calcified granuloma laterally right upper lung. Pleural spaces: Unremarkable. No pleural effusion. No pneumothorax. Heart/Mediastinum: Unremarkable. No cardiomegaly. Bones/joints: Unremarkable. IMPRESSION: No evidence of acute cardiopulmonary disease.
[2023-12-01 18:14] LABS: Basophils # 0.2 K/mm3 (0-0.2); Basophils % 3.1 % (0.1-2.0); Eosinophils # 0.1 K/mm3 (0.0-0.4); Eosinophils % 1.8 % (0.1-12.0); Hematocrit 43.2 % (37.0-47.0); Hemoglobin 13.7 g/dL (12.2-16.2); Lymphocytes # 1.8 K/mm3 (0.7-4.5); Lymphocytes % 23.6 % (10-50); Mean Corpuscular HGB Conc 31.6 g/dL (31.8-35.4); Mean Corpuscular Hemoglobin 28.5 pg (27.0-31.2); Mean Platelet Volume 8.3 fl (7.4-10.4); Monocytes # 0.7 K/mm3 (0.1-1.0); Monocytes % 8.5 % (1.7-9.3); Neutrophils # 4.9 K/mm3 (1.8-7.8); Platelet Count 252 K/mm3 (142-424); Red Cell Distribution Width 17.1 % (11.5-17.5); White Blood Count 7.8 K/mm3 (4.8-10.8)
[2023-12-01 18:28] LABS: Chloride 105 mmol/L (98-107); Potassium 3.5 mmoL/L (3.5-5.1); Sodium 138 mmol/L (136-145)
[2023-12-01 18:30] LABS: Blood Urea Nitrogen 11 mg/dl (7-17); Creatinine Clearance Estimated 112 mL/min (50-200); Estimated Glomerular Filt Rate 80 ml/min (>60); GFR (African American) 97 ML/MIN (>60)
[2023-12-01 18:31] LABS: Alanine Aminotransferase 19 U/L (12-78); Albumin/Globulin Ratio 1.2 (1.1-1.8); Alkaline Phosphatase 121 U/L (38-126); Anion Gap 6.5 mEq/L (5-15); Aspartate Amino Transferase 32 U/L (14-36); Bilirubin,Total 0.3 mg/dl (0.2-1.3); Calcium 9.4 mg/dl (8.4-10.2); Carbon Dioxide 30 mmol/L (22.0-30.0); Globulin 3.3 g/dL (1.3-3.2); Glucose 122 mg/dl (74-100); Total Protein,Serum 7.3 g/dl (6.3-8.2)
--- NOTE | 2023-12-01 18:36 | HMH.EDGENADL ---
Discharge Plan Disposition Patient Disposition: Home, Self-Care Condition: Good Prescriptions Prescriptions: No Action alprazolam 0.5 mg tablet 0.5 mg PO TIDP PRN (Reason: Anxiety) Qty: 30 Patient Comments: TAKE 1 TABLET BY MOUTH EVERY 8 HOURS NEEDED FOR ANXIETY MAY CAUSEDROWSINESS pregabalin 200 mg capsule 200 mg PO BID pantoprazole 40 mg tablet,delayed release (DR/EC) 40 mg PO DAILY spironolactone 25 mg tablet See Rx Instructions .ROUTE .COMPLEX Qty: 90 4RF Dose Instruction: TAKE ONE TABLET BY MOUTH EVERY DAY Rx Instructions: TAKE ONE TABLET BY MOUTH EVERY DAY furosemide 40 mg tablet See Rx Instructions .ROUTE .COMPLEX Qty: 90 1RF Dose Instruction: TAKE ONE TABLET BY MOUTH EVERY DAY Rx Instructions: TAKE ONE TABLET BY MOUTH EVERY DAY promethazine 12.5 mg tablet 12.5 mg PO BID PRN (Reason: nausea/vomiting) misoprostol 200 mcg tablet 200 mcg PO BID desvenlafaxine succinate [Pristiq] 50 mg Tablet Extended Release 24 Hr 50 mg PO DAILY cyclobenzaprine 10 mg tablet 10 mg PO TID PRN (Reason: Anxiety) Patient Comments: TAKE ONE TABLET BY MOUTH THREE TIMES DAILY NEEDED hydroxyzine pamoate 50 mg capsule 50 mg PO Q4-6H PRN (Reason: Anxiety) Patient Comments: TAKE ONE CAPSULE BY MOUTH EVERY 4 HOURS NEEDED MAY CAUSE DROWSINESS quetiapine 100 mg tablet See Rx Instructions .ROUTE .COMPLEX Patient Comments: TAKE ONE TABLET BY MOUTH EVERY DAY AT BEDTIME Rx Instructions: 100 mg orally colestipol 1 gram tablet 1 g PO DAILY Patient Comments: TAKE ONE TABLET BY MOUTH ONCE DAILY DIRECTED lamotrigine 100 mg tablet 100 mg PO BID Patient Comments: TAKE ONE TABLET BY MOUTH TWICE DAILY metoclopramide HCl 10 mg tablet 10 mg PO BID Patient Comments: TAKE ONE TABLET BY MOUTH TWICE DAILY buspirone 10 MG tablet 10 mg PO BID famotidine 20 mg tablet 20 mg PO BID Referrals Follow up/Referrals: Provider,Referral, [Primary Care Provider] - See instructions Activity Restrictions/Add. Instructions Additional Instructions/Restrictions: Please follow-up with your primary care physician. Please return if you experience any new or worsening symptoms. I recommend you take Tylenol throughout the day as needed for your pain which may have been exacerbated by your frequent coughing. Clinical Impressions Clinical Impression: Acute chest pain Discharge ED Provider: Jaya Hobson Adult HPI General Chief complaint: Chest Pain Stated complaint: Chest Pain Time Seen by Provider: 12/01/23 18:36 Mode of Arrival: Family Vehicle Source of Information: Patient and Medical Record Limitations: No Limitations Description of Symptoms (Recalled from ER Triage Doc. by RN): Pt c/o chest pain that began last night and has continued through today. States it began under her left breast and went up to her neck and down her left arm. States she the pain radiates to RUQ of ABD. She has has a hx of PE and DVT of LLE. She also states she was told she has sticky blood . This occurred in 2017 and she did not need to stay on termite helper anticoagulatants. She also reports n/v/d. Denies any fever, chills, or cough. History of Present Illness HPI narrative: Patient presents for evaluation of substernal nonradiating, occasionally pleuritic, nonexertional, nonpositional, dull chest pain in the absence of palpitations, hemoptysis, unilateral leg pain or leg swelling. She does report history of pulmonary embolism in the past that was provoked by long travel. She denies any recreational drug use. She denies any fevers or chills however does report recent cough. The pain is exacerbated by cough and upon further questioning is reproducible to palpation. She denies any syncope or presyncope. She denies any pain elsewhere. Denies any blood thinner usage. Please note that above description of symptoms, in this electronic medical record under categorization of recalled from ER triage doctor by RN are reflective of an initial nursing assessment, however, is not reflective of my full history and physical exam that was personally taken and clarified. Consequentially, this preceding description of symptoms, which may include the patient's categorized chief complaint in the EMR, do not reflect my personal clinical impression, and the ultimate description of history of present illness and patient stated complaints should be deferred to this section of the note. Unless stated otherwise or congruent with this section of the note, additional signs, symptoms, or incongruence should be interpreted as inaccurate with my clinical impression. Related Data Home Medications Medication Instructions Recorded Confirmed alprazolam 0.5 mg tablet 0.5 mg PO TIDP PRN Anxiety #30 tabs 01/12/19 12/01/23 buspirone 10 mg tablet 10 mg PO BID Anxiety 07/26/20 12/01/23 pregabalin 200 mg capsule 200 mg PO BID RLS 02/05/21 12/01/23 pantoprazole 40 mg tablet,delayed 40 mg PO DAILY STOMACH 08/18/22 12/01/23 release famotidine 20 mg tablet 20 mg PO BID STOMACH 01/21/23 12/01/23 desvenlafaxine succinate 50 mg 50 mg PO DAILY Depression 04/20/23 12/01/23 tablet,extended release 24 hr (Pristiq) misoprostol 200 mcg tablet 200 mcg PO BID stomach 04/20/23 12/01/23 promethazine 12.5 mg tablet 12.5 mg PO BID PRN nausea/vomiting 04/20/23 12/01/23 colestipol 1 gram tablet 1 g PO DAILY 08/06/23 12/01/23 cyclobenzaprine 10 mg tablet 10 mg PO TID PRN Anxiety 08/06/23 12/01/23 hydroxyzine pamoate 50 mg capsule 50 mg PO Q4-6H PRN Anxiety 08/06/23 12/01/23 lamotrigine 100 mg tablet 100 mg PO BID 08/06/23 12/01/23 metoclopramide HCl 10 mg tablet 10 mg PO BID 08/06/23 12/01/23 quetiapine 100 mg tablet See Rx Instructions .Route .COMPLEX 08/06/23 12/01/23 Previous Rx's Medication Instructions Recorded spironolactone 25 mg tablet See Rx Instructions .Route 08/18/23 .COMPLEX #90 tabs furosemide 40 mg tablet See Rx Instructions .Route 08/26/23 .COMPLEX #90 tabs Allergies Allergy/AdvReac Type Severity Reaction Status Date / Time hydromorphone [From Dilaudid] Allergy Intermediate Verified 12/01/23 10:19 NSAIDS (Non-Steroidal Allergy Unknown Verified 12/01/23 10:19 Anti-Inflamma lactose AdvReac Mild Nausea Verified 12/01/23 10:19 cilantro Allergy Severe throat and Uncoded 07/07/23 15:04 tongue swells, hives on face [facility] Disclaimer: The information contained in this section may have been updated after the patient was seen, as this information can be updated by other users. Medical History Afib Anxiety Arrhythmia Asthma DVT (deep venous thrombosis) Edema Elevated left ventricular end-diastolic pressure (LVEDP) GERD (gastroesophageal reflux disease) Heart murmur History of left heart catheterization History of pulmonary embolism HLD (hyperlipidemia) HTN (hypertension) Migraine LEONORA (obstructive sleep apnea) Osteoarthritis Pulmonary embolism SVT (supraventricular tachycardia) Surgical History H/O foot surgery H/O knee surgery History of bariatric surgery History of cholecystectomy History of esophageal surgery History of exploratory laparotomy History of lumpectomy of left breast Previous back surgery Family History Other Family history of cancer Family history of hypertension Social History Smoking Status: Light tobacco smoker tobacco type: cigarettes packs per day: 4 second hand exposure: No alcohol intake: never substance use type: marijuana current occupational status: other Travel in the last 8 weeks: None household members: spouse housing: house number of children: 0 current occupational exposures/hazards: No caffeine: No ROS Obtained: Yes Systems reviewed as appropriate & no additional complaints except as documented As per HPI Physical Exam General General appearance: alert and in no apparent distress Head Head exam: atraumatic and normocephalic Eye Eye exam: Present normal appearance Neck Neck exam: Present normal inspection Chest Chest inspection: Present normal inspection and symmetric chest wall rise Respiratory Respiratory exam: Present normal lung sounds bilaterally; Absent respiratory distress Cardiovascular Cardiovascular exam: Present regular rate and normal rhythm Abdominal Exam Abdominal exam: Present soft Neurological Exam Neurological exam: Present alert and oriented X3 Psychiatric Psychiatric exam: Present normal affect and normal mood Skin Skin exam: Present warm and dry Medical Decision Making Medical Records Medical records reviewed: Yes I reviewed the patient's medical records. Dinesh Inquiry Pt receiving controlled substance: No Vital Signs: 12/01/23 17:52 12/01/23 19:00 12/01/23 19:30 Temperature 99.1 F Temperature Source Oral Pulse Rate 59 L 63 Pulse Rate [Right] 81 Respiratory Rate 17 11 L 12 Blood Pressure 116/71 112/73 Blood Pressure [Right Arm] 123/78 Blood Pressure Mean 79 Blood Pressure Mean [Right Arm] 93 Blood Pressure Source [Right Arm] Automatic Cuff 02 Sat by Pulse Oximetry 100 97 99 Oxygen Delivery Method Room Air Room Air 12/01/23 20:00 12/01/23 20:30 12/01/23 21:00 Temperature Temperature Source Pulse Rate 62 63 81 Pulse Rate [Right] Respiratory Rate 12 12 15 Blood Pressure 99/70 L 101/71 L 92/69 L Blood Pressure [Right Arm] Blood Pressure Mean 75 74 75 Blood Pressure Mean [Right Arm] Blood Pressure Source [Right Arm] 02 Sat by Pulse Oximetry 100 100 100 Oxygen Delivery Method 12/01/23 21:30 12/01/23 22:04 Temperature 98.4 F Temperature Source Oral Pulse Rate 71 71 Pulse Rate [Right] Respiratory Rate 14 14 Blood Pressure 101/80 L 101/80 L Blood Pressure [Right Arm] Blood Pressure Mean 86 Blood Pressure Mean [Right Arm] Blood Pressure Source [Right Arm] 02 Sat by Pulse Oximetry 100 Oxygen Delivery Method Room Air Lab Data Lab Results 12/01/23 17:56: WBC 7.8, RBC 4.80, Hgb 13.7, Hct 43.2, MCV 90.0, MCH 28.5, MCHC 31.6 L, RDW 17.1, Plt Count 252, MPV 8.3, Neut % (Auto) 63.0, Lymph % (Auto) 23.6, [place] % (Auto) 8.5, Eos % (Auto) 1.8, Baso % (Auto) 3.1 H, Neut # (Auto) 4.9, Lymph # (Auto) 1.8, [place] # (Auto) 0.7, Eos # (Auto) 0.1, Baso # (Auto) 0.2, PT 10.9, INR 1.01, Sodium 138, Potassium 3.5, Chloride 105, Carbon Dioxide 30, Anion Gap 6.5, BUN 11, Creatinine 0.80, Estimated Creat Clear 112, Estimated GFR 80, Est GFR ( Amer) 97, Glucose 122 H, Calcium 9.4, Total Bilirubin 0.3, AST 32, ALT 19, Alkaline Phosphatase 121, Troponin I < 0.01, Total Protein 7.3, Albumin 4.0, Globulin 3.3 H, Albumin/Globulin Ratio 1.2 12/01/23 20:49: Troponin I < 0.01 12/01/23 17:56 12/01/23 17:56 Orders (Tests/Meds): ED MEDICATIONS Discontinued Medications Generic Name Dose Route Start Last Admin Trade Name Freq PRN Reason Stop Dose Admin Belladonna Alkaloids 60 ml 12/01/23 21:06 12/01/23 21:26 Belladonna Alkaloids 60 Ml Ml PO 12/01/23 21:07 60 ml ONCE ONE Administration Iopamidol 70 ml 12/01/23 19:58 12/01/23 19:59 Iopamidol-370 (76%);100ml Bottle IV 12/01/23 19:59 70 ml ONCE ONE Administration Ketorolac Tromethamine 15 mg 12/01/23 19:08 12/01/23 19:30 Ketorolac 30mg/Ml Vial IV 12/01/23 19:09 Not Given ONCE ONE Ketorolac Tromethamine 15 mg 12/01/23 21:06 12/01/23 21:35 Ketorolac 30mg/Ml Vial IV 12/01/23 21:07 Not Given ONCE ONE Methocarbamol 500 mg 12/01/23 21:06 12/01/23 21:26 Methocarbamol 500mg Tablet PO 12/01/23 21:07 500 mg ONCE STA Administration Nitroglycerin 0.4 mg 12/01/23 20:52 12/01/23 20:58 Nitroglycerin 0.4mg Sl Tablet SL 12/31/23 20:51 0.4 mg Q5MINP PRN Administration Chest Pain Sodium Chloride 50 ml 12/01/23 19:58 12/01/23 19:59 0.9 % Sodium Chloride 50 Ml Vial IV 12/01/23 19:59 50 ml ONCE ONE Administration Sodium Chloride 10 ml 12/01/23 19:58 12/01/23 19:59 Sodium Chloride 0.9% 10ml Syr (Rad Only) IV 12/01/23 19:59 10 ml ONCE ONE Administration ORDERS Category Date Time Status CTA Chest [CT angio chest PE protocol] Stat Cat Scan 12/01/23 19:08 Completed CXR 2 view (NOT portable) [XR chest 2V] Stat Exams 12/01/23 17:56 Completed Complete Blood Count Auto Diff Stat Lab 12/01/23 17:56 Completed Comprehensive Metabolic Panel Stat Lab 12/01/23 17:56 Completed PT INR [Prothrombin Time INR] Stat Lab 12/01/23 17:56 Completed Troponin I Q3H Lab 12/01/23 20:49 Completed Troponin I Stat Lab 12/01/23 17:56 Completed HEART Score History (anamnesis): Slightly suspicious ECG: Non-specific disturbance Age: <45 years Risk factors: No known risk factors Troponin: </= normal limit HEART Score: 1 Medical Decision Narrative: Patient with history and exam per above presenting for evaluation of acute chest pain Diagnoses considered include ACS, aortic dissection, pericarditis, PE, pneumothorax, pneumonia, GERD, costochondritis, referred pain ED workup and treatment included: ED MEDICATIONS Discontinued Medications Generic Name Dose Route Start Last Admin Trade Name Freq PRN Reason Stop Dose Admin Belladonna Alkaloids 60 ml 12/01/23 21:06 12/01/23 21:26 Belladonna Alkaloids 60 Ml Ml PO 12/01/23 21:07 60 ml ONCE ONE Administration Iopamidol 70 ml 12/01/23 19:58 12/01/23 19:59 Iopamidol-370 (76%);100ml Bottle IV 12/01/23 19:59 70 ml ONCE ONE Administration Ketorolac Tromethamine 15 mg 12/01/23 19:08 12/01/23 19:30 Ketorolac 30mg/Ml Vial IV 12/01/23 19:09 Not Given ONCE ONE Ketorolac Tromethamine 15 mg 12/01/23 21:06 12/01/23 21:35 Ketorolac 30mg/Ml Vial IV 12/01/23 21:07 Not Given ONCE ONE Methocarbamol 500 mg 12/01/23 21:06 12/01/23 21:26 Methocarbamol 500mg Tablet PO 12/01/23 21:07 500 mg ONCE STA Administration Nitroglycerin 0.4 mg 12/01/23 20:52 12/01/23 20:58 Nitroglycerin 0.4mg Sl Tablet SL 12/31/23 20:51 0.4 mg Q5MINP PRN Administration Chest Pain Sodium Chloride 50 ml 12/01/23 19:58 12/01/23 19:59 0.9 % Sodium Chloride 50 Ml Vial IV 12/01/23 19:59 50 ml ONCE ONE Administration Sodium Chloride 10 ml 12/01/23 19:58 12/01/23 19:59 Sodium Chloride 0.9% 10ml Syr (Rad Only) IV 12/01/23 19:59 10 ml ONCE ONE Administration ORDERS Category Date Time Status CTA Chest [CT angio chest PE protocol] Stat Cat Scan 12/01/23 19:08 Completed CXR 2 view (NOT portable) [XR chest 2V] Stat Exams 12/01/23 17:56 Completed Complete Blood Count Auto Diff Stat Lab 12/01/23 17:56 Completed Comprehensive Metabolic Panel Stat Lab 12/01/23 17:56 Completed PT INR [Prothrombin Time INR] Stat Lab 12/01/23 17:56 Completed Troponin I Q3H Lab 12/01/23 20:49 Completed Troponin I Stat Lab 12/01/23 17:56 Completed Labs were independently interpreted by me, significant for no leukocytosis, coags within normal limits, troponins undetectable x 2 Imaging was independently visualized and interpreted by me, significant for granuloma, for which patient was instructed of this incidental finding, instructed to follow-up with the primary care provider. Pplease refer to radiology report for full details. My clinical impression at this time is most consistent with costochondritis. Patient reports improvement of symptoms upon repeat evaluation. I discussed my clinical impression with patient and answered all questions. At this time, the evidence for any other entities in the differential is insufficient to warrant any further testing or ED observation. This was explained to the patient. The patient was advised that persistent or worsening symptoms require further evaluation. I confirmed the patient's understanding of this discussion. Critical Care Critical Care Time Critical Care Time: No
[2023-12-01 18:43] LABS: Troponin I < 0.01 ng/ml (0.00-0.034)
--- NOTE | 2023-12-01 19:08 | CT_ITS ---
PROCEDURE INFORMATION: Exam: CTA Chest With Contrast Exam date and time: 12/01/2023 7:52 PM Age: 38 years old Clinical indication: Pain; Chest pressure; Additional info: HX pe, pleuritic chest pain, SOA TECHNIQUE: Imaging protocol: Computed tomographic angiography of the chest with contrast. Exam focused on the arteries. 3D rendering (Not supervised by radiologist): MIP and/or 3D reconstructed images were created by the technologist. Radiation optimization: All CT scans at this facility use at least one of these dose optimization techniques: automated exposure control; mA and/or kV adjustment per patient size (includes targeted exams where dose is matched to clinical indication); or iterative reconstruction. Contrast material: ISOVUE 370; Contrast volume: 70 ml; Contrast route: INTRAVENOUS (IV); COMPARISON: CT ANGIO CHEST PE PROTOCOL 09/30/2023 1:33 AM FINDINGS: Pulmonary arteries: There is suboptimal opacification of pulmonary arteries due to contrast bolus timing. Aorta: Unremarkable. No aortic aneurysm. No aortic dissection. Lungs: Densely calcified granuloma right upper lobe Pleural spaces: Unremarkable. No pneumothorax. No pleural effusion. Heart: Unremarkable. No cardiomegaly. No pericardial effusion. Lymph nodes: Unremarkable. No enlarged lymph nodes. Stomach and bowel: Gastric bypass partially visualized. Bones/joints: Unremarkable. No acute fracture. Soft tissues: Unremarkable. IMPRESSION: 1. No large or central pulmonary embolus. Evaluation of the peripheral pulmonary arteries is limited. 2. No evidence of acute intrathoracic abnormality.
[2023-12-01 19:24] LABS: INR 1.01 (0.9-1.1); Prothrombin Time 10.9 seconds (10.1-12.5)
--- NOTE | 2023-12-01 19:29 | PC.NURSE ---
pt states she has bleeding ulcers and is unable to take the torodol. When rounding on pt she denies any new complaints. no needs voiced. call silva in reach.
[2023-12-01] MEDS: 0.9 % SODIUM CHLORIDE 50 ML VIAL IV (19:59)
[2023-12-01] MEDS: IOPAMIDOL-370 (76%);100ML BOTTLE 70 ML IV (19:59)
[2023-12-01] MEDS: SODIUM CHLORIDE 0.9% 10ML SYR (RAD ONLY) 10 ML IV (19:59)
--- NOTE | 2023-12-01 20:52 | PC.NURSE ---
I rounded on the pt, she states she is having severe sharp pain that is 8/10. I notified whom states he will order her something for pain.
[2023-12-01] MEDS: NITROGLYCERIN 0.4MG SL TABLET 0.400000000000000022 MG SL (20:58)
--- NOTE | 2023-12-01 21:00 | PC.NURSE ---
I took the pt a warm blanket
[2023-12-01] MEDS: METHOCARBAMOL 500MG TABLET 500 MG PO (21:26)
[2023-12-01] MEDS: BELLADONNA ALKALOIDS 60 ML ML PO (21:26)
[2023-12-01 21:43] LABS: Troponin I < 0.01 ng/ml (0.00-0.034)
== END 2023-12-01 22:04 | disposition home or self-care (01) ==
PROVIDERS: Emergency Provider Emergency Medicine
DX: R07.89 Other chest pain (principal); R05.9 Cough, unspecified; F17.210 Nicotine dependence, cigarettes, uncomplicated; I20.9 Angina pectoris, unspecified; K21.9 Gastro-esophageal reflux disease without esophagitis; J45.909 Unspecified asthma, uncomplicated; I10 Essential (primary) hypertension; E78.5 Hyperlipidemia, unspecified; Z86.711 Personal history of pulmonary embolism
CPT/HCPCS: 71046; 71275; 80053; 84484; 85025; 85610; 93005; 96374; 96376; 99285; Q9967

== ENCOUNTER 2023-12-01 23:48 | Outpatient (CLI) | payer OTHER, SELFPAY ==
[2023-12-02 02:15] LABS: Benzodiazepines Screen,Urine Positive ng/ml (<200)
[2023-12-02 02:16] LABS: Amphetamine/Metha Screen,Urine Negative ng/ml (<1000)
[2023-12-02 02:17] LABS: Barbiturates Screen,Urine Positive ng/ml (<200); Cannabinoid Screen,Urine Positive ng/ml (<50)
[2023-12-02 02:18] LABS: Cocaine Screen,Urine Negative ng/ml (<300); Methadone Screen,Urine Negative ng/ml (<300)
[2023-12-02 02:19] LABS: Phencyclidine Screen,Urine Negative ng/ml (<25)
[2023-12-02 02:20] LABS: Opiate Screen,Urine Negative ng/ml (<300)
--- NOTE | 2023-12-04 10:00 | PC.NURSE ---
order sent to lab for additional testing on pt urine drug screen that was done on 12/01/23.
--- NOTE | 2023-12-07 08:32 | PC.NURSE ---
spoke with Brittany in lab r/t lab order send down 12/04/23 for additional testing. Brittany states unable to do additional testing on that specimen r/t not enough specimen left for further analysis. Will notify provider GINA Lazcano
[2023-12-07 11:23] LABS: Codeine Negative (Cutoff=100); Hydrocodone Negative (Cutoff=100); Hydromorphone Negative (Cutoff=100); Morphine Positive (.); Opiates Positive (.)
== END 2023-12-01 23:59 | disposition home or self-care (01) ==
LOC: LAB 12-02 00:06
PROVIDERS: Visit Provider Anesthesiology
DX: Z79.891 Long term (current) use of opiate analgesic (principal); M51.36 Other intervertebral disc degeneration, lumbar region
CPT/HCPCS: 80307; 80361; 80365; G0480

== ENCOUNTER 2023-12-13 23:14 | Emergency (ER) | payer OTHER, SELFPAY ==
[2023-12-13 23:16] VITALS: BP 126/88; PULSE 70; RESP 16; TEMP 37.1; O2SAT 97; BMI 23.6
--- NOTE | 2023-12-13 23:21 | ED_ITS ---
Discharge Plan Disposition Patient Disposition: Home, Self-Care Prescriptions Prescriptions: New promethazine 12.5 mg tablet 12.5 mg PO TID PRN (Reason: nausea and vomiting) Qty: 30 0RF No Action alprazolam 0.5 mg tablet 0.5 mg PO TIDP PRN (Reason: Anxiety) Qty: 30 Patient Comments: TAKE 1 TABLET BY MOUTH EVERY 8 HOURS NEEDED FOR ANXIETY MAY CAUSEDROWSINESS pregabalin 200 mg capsule 200 mg PO BID pantoprazole 40 mg tablet,delayed release (DR/EC) 40 mg PO DAILY spironolactone 25 mg tablet See Rx Instructions .ROUTE .COMPLEX Qty: 90 4RF Dose Instruction: TAKE ONE TABLET BY MOUTH EVERY DAY Rx Instructions: TAKE ONE TABLET BY MOUTH EVERY DAY furosemide 40 mg tablet See Rx Instructions .ROUTE .COMPLEX Qty: 90 1RF Dose Instruction: TAKE ONE TABLET BY MOUTH EVERY DAY Rx Instructions: TAKE ONE TABLET BY MOUTH EVERY DAY promethazine 12.5 mg tablet 12.5 mg PO BID PRN (Reason: nausea/vomiting) misoprostol 200 mcg tablet 200 mcg PO BID desvenlafaxine succinate [Pristiq] 50 mg Tablet Extended Release 24 Hr 50 mg PO DAILY cyclobenzaprine 10 mg tablet 10 mg PO TID PRN (Reason: Anxiety) Patient Comments: TAKE ONE TABLET BY MOUTH THREE TIMES DAILY NEEDED hydroxyzine pamoate 50 mg capsule 50 mg PO Q4-6H PRN (Reason: Anxiety) Patient Comments: TAKE ONE CAPSULE BY MOUTH EVERY 4 HOURS NEEDED MAY CAUSE DROWSINESS quetiapine 100 mg tablet See Rx Instructions .ROUTE .COMPLEX Patient Comments: TAKE ONE TABLET BY MOUTH EVERY DAY AT BEDTIME Rx Instructions: 100 mg orally colestipol 1 gram tablet 1 g PO DAILY Patient Comments: TAKE ONE TABLET BY MOUTH ONCE DAILY DIRECTED lamotrigine 100 mg tablet 100 mg PO BID Patient Comments: TAKE ONE TABLET BY MOUTH TWICE DAILY metoclopramide HCl 10 mg tablet 10 mg PO BID Patient Comments: TAKE ONE TABLET BY MOUTH TWICE DAILY buspirone 10 MG tablet 10 mg PO BID famotidine 20 mg tablet 20 mg PO BID Referrals Follow up/Referrals: Luciano Falk MD [Primary Care Provider] - See instructions Activity Restrictions/Add. Instructions Additional Instructions/Restrictions: Please follow-up with your primary care provider. Please return to the emergency department if you develop any new or worsening symptoms or become concerned for your health. Please take Phenergan as needed for nausea and vomiting. Clinical Impressions Clinical Impression: Nausea vomiting and diarrhea, Abdominal pain, Headache Instructions Patient Instructions: DI for Acute Abdominal Pain Discharge ED Provider: Bogdan Addison General Adult HPI General Chief complaint: Abdominal Pain Stated complaint: vomiting, nausea, fever, diahrrea, chills Time Seen by Provider: 12/13/23 23:21 History of Present Illness HPI narrative: 38-year-old female with extensive past medical history including migraine headaches, prior endometrial cancer status post abdominal hysterectomy, hypertension, A-fib, Estevan-Danlos, GERD, psychiatric comorbidities presents with multiple complaints. She reports that for the last 3 days she has had nausea, vomiting, diarrhea, headache, body aches, sore throat cough, shortness of breath. She reports her headache is worse than her typical migraines. Reports that she has history of stomach ulcers and when she vomits and has diarrhea it often has some blood in it. She thinks she sees some blood in her vomit and diarrhea currently. She reports fever at home. She takes Phenergan at home but has not been helpful for her nausea vomiting. She denies any history of pancreatitis. She denies any urinary symptoms. Related Data Home Medications Medication Instructions Recorded Confirmed alprazolam 0.5 mg tablet 0.5 mg PO TIDP PRN Anxiety #30 tabs 01/12/19 12/01/23 buspirone 10 mg tablet 10 mg PO BID Anxiety 07/26/20 12/01/23 pregabalin 200 mg capsule 200 mg PO BID RLS 02/05/21 12/01/23 pantoprazole 40 mg tablet,delayed 40 mg PO DAILY STOMACH 08/18/22 12/01/23 release famotidine 20 mg tablet 20 mg PO BID STOMACH 01/21/23 12/01/23 desvenlafaxine succinate 50 mg 50 mg PO DAILY Depression 04/20/23 12/01/23 tablet,extended release 24 hr (Pristiq) misoprostol 200 mcg tablet 200 mcg PO BID stomach 04/20/23 12/01/23 promethazine 12.5 mg tablet 12.5 mg PO BID PRN nausea/vomiting 04/20/23 12/01/23 colestipol 1 gram tablet 1 g PO DAILY 08/06/23 12/01/23 cyclobenzaprine 10 mg tablet 10 mg PO TID PRN Anxiety 08/06/23 12/01/23 hydroxyzine pamoate 50 mg capsule 50 mg PO Q4-6H PRN Anxiety 08/06/23 12/01/23 lamotrigine 100 mg tablet 100 mg PO BID 08/06/23 12/01/23 metoclopramide HCl 10 mg tablet 10 mg PO BID 08/06/23 12/01/23 quetiapine 100 mg tablet See Rx Instructions .Route .COMPLEX 08/06/23 12/01/23 Previous Rx's Medication Instructions Recorded spironolactone 25 mg tablet See Rx Instructions .Route 08/18/23 .COMPLEX #90 tabs furosemide 40 mg tablet See Rx Instructions .Route 08/26/23 .COMPLEX #90 tabs promethazine 12.5 mg tablet 12.5 mg PO TID PRN nausea and 12/14/23 vomiting #30 tabs Allergies Allergy/AdvReac Type Severity Reaction Status Date / Time hydromorphone [From Dilaudid] Allergy Intermediate Verified 12/01/23 10:19 NSAIDS (Non-Steroidal Allergy Unknown Verified 12/01/23 10:19 Anti-Inflamma lactose AdvReac Mild Nausea Verified 12/01/23 10:19 cilantro Allergy Severe throat and Uncoded 07/07/23 15:04 tongue swells, hives on face [facility] Disclaimer: The information contained in this section may have been updated after the patient was seen, as this information can be updated by other users. Medical History Afib Anxiety Arrhythmia Asthma DVT (deep venous thrombosis) Edema Elevated left ventricular end-diastolic pressure (LVEDP) GERD (gastroesophageal reflux disease) Heart murmur History of left heart catheterization History of pulmonary embolism HLD (hyperlipidemia) HTN (hypertension) Migraine LEONORA (obstructive sleep apnea) Osteoarthritis Pulmonary embolism SVT (supraventricular tachycardia) Surgical History H/O foot surgery H/O knee surgery History of bariatric surgery History of cholecystectomy History of esophageal surgery History of exploratory laparotomy History of lumpectomy of left breast Previous back surgery Family History Other Family history of cancer Family history of hypertension Social History Smoking Status: Current every day smoker tobacco type: cigarettes packs per day: 4 second hand exposure: No alcohol intake: never substance use type: marijuana current occupational status: other Travel in the last 8 weeks: None household members: spouse housing: house number of children: 0 current occupational exposures/hazards: No caffeine: No ROS Obtained: Yes All systems reviewed & no additional complaints except as documented Physical Exam General General appearance: alert Comment: Uncomfortable appearing Head Head exam: atraumatic and normocephalic Eye Eye exam: Present normal appearance, PERRL and EOMI ENT ENT exam: Present normal oropharynx, mucous membranes dry and normal external ear exam Neck Neck exam: Present normal inspection and full ROM Chest Chest inspection: Present normal inspection, symmetric chest wall rise and tenderness (Mild, generalized) Respiratory Respiratory exam: Present normal lung sounds bilaterally; Absent respiratory distress Cardiovascular Cardiovascular exam: Present regular rate and normal rhythm Abdominal Exam Abdominal exam: Present soft and tenderness (Mild, generalized, worse in the epigastric); Absent distention or guarding Extremities Exam Extremities exam: Present normal inspection; Absent edema or joint swelling Back Exam Back exam: Present normal inspection; Absent tenderness Neurological Exam Neurological exam: Present alert and oriented X3; Absent motor sensory deficit Psychiatric Psychiatric exam: Present normal affect and normal mood Skin Skin exam: Present warm, dry and normal color Lymphatic Lymphatic Findings: no adenopathy Medical Decision Making Medical Records Medical records reviewed: Yes I reviewed the patient's medical records. Dinesh Inquiry Pt receiving controlled substance: No Dinesh was queried for this patient: No Vital Signs: 12/13/23 23:16 12/14/23 01:21 Temperature 98.7 F 97.6 F Temperature Source Oral Oral Pulse Rate 61 Pulse Rate [Left] 70 Respiratory Rate 16 14 Blood Pressure 84/60 L Blood Pressure [Right Arm] 126/88 Blood Pressure Mean [Right Arm] 100 02 Sat by Pulse Oximetry 97 Oxygen Delivery Method Room Air Room Air Lab Data Lab results reviewed: Yes I reviewed the patient's lab results. Lab Results 12/13/23 00:00: SARS-CoV-2 (PCR) Not detected, Influenza A Untype (PCR) Not detected, Influenza Type B (PCR) Not detected 12/13/23 23:44: WBC 12.3 H, RBC 4.51, Hgb 13.0, Hct 40.3, MCV 89.2, MCH 28.8, MCHC 32.3, RDW 16.3, Plt Count 257, MPV 8.0, Neut % (Auto) 74.9, Lymph % (Auto) 16.2, [place] % (Auto) 5.6, Eos % (Auto) 2.6, Baso % (Auto) 0.6, Neut # (Auto) 9.2 H, Lymph # (Auto) 2.0, [place] # (Auto) 0.7, Eos # (Auto) 0.3, Baso # (Auto) 0.1, Sodium 139, Potassium 3.6, Chloride 106, Carbon Dioxide 30, Anion Gap 6.6, BUN 13, Creatinine 0.70, Estimated Creat Clear 124, Estimated GFR 93, Est GFR ( Amer) 113, Glucose 112 H, Calcium 9.2, Total Bilirubin 0.3, AST 26, ALT 17, Alkaline Phosphatase 108, Total Protein 6.8, Albumin 3.8, Globulin 3.0, Albumin/Globulin Ratio 1.3, Lipase 147 12/13/23 23:44 12/13/23 23:44 Orders (Tests/Meds): ED MEDICATIONS Discontinued Medications Generic Name Dose Route Start Last Admin Trade Name Zahida PRN Reason Stop Dose Admin Acetaminophen 1,000 mg 12/13/23 23:27 12/13/23 23:54 Acetaminophen 500mg Tab PO 12/13/23 23:28 1,000 mg ONCE ONE Administration Belladonna Alkaloids 60 ml 12/13/23 23:27 12/13/23 23:53 Belladonna Alkaloids 60 Ml Ml PO 12/13/23 23:28 60 ml ONCE ONE Administration Diphenhydramine HCl 25 mg 12/13/23 23:27 12/13/23 23:54 Diphenhydramine 50mg/Ml Vial IV 12/13/23 23:28 25 mg ONCE ONE Administration Lactated Ringer's 1,000 mls @ 999 mls/hr 12/13/23 23:30 12/13/23 23:54 Lactated Ringer's 1000 Ml Bag IV 12/14/23 00:30 999 mls/hr .Q1H1M CLARISA Administration Magnesium Sulfate 2 gm in 50 mls @ 50 mls/hr 12/13/23 23:27 12/13/23 23:54 Magnesium Sulfate 2gm/50ml Premix IV 12/14/23 00:26 50 mls/hr ONCE ONE Administration Prochlorperazine Edisylate 10 mg 12/13/23 23:27 12/13/23 23:54 Prochlorperazine 10mg/2ml Vial IV 12/13/23 23:28 10 mg ONCE ONE Administration ORDERS Category Date Time Status CXR --portable [XR chest portable] Stat Exams 12/13/23 23:27 Completed CBC w/Auto Diff [Complete Blood Count Auto Diff] Stat Lab 12/13/23 23:44 Completed CMP [Comprehensive Metabolic Panel] Stat Lab 12/13/23 23:44 Completed Lipase Stat Lab 12/13/23 23:44 Completed Rapid PCR Covid and Flu A/B Stat Lab 12/13/23 00:00 Completed Medical Decision Narrative: 38-year-old female with history as reported above presents with multiple complaints including body aches nausea vomiting diarrhea headache cough sore throat shortness of breath. History was obtained interactive discussion with patient, chart review. On arrival, patient is afebrile, hemodynamically stable, satting provide room air, alert and oriented x 4, moving all extremities spontaneously. Full physical exam performed and significant for dry mucous membranes, clear lung exam, normal neuroexam, generalized tenderness of the chest and abdomen Differential includes but is not limited to COVID, flu, pneumonia, tension headache, migraine headache, gastroenteritis, pancreatitis, dehydration,. Patient was given p.o. Tylenol and GI cocktail, IV Toradol, Compazine, Benadryl, IV magnesium 1 L fluid bolus for symptomatic management and correction of underlying abnormalities. Workup initiated including CBC CMP lipase chest x-ray COVID flu. On re-evaluation, patient [remains afebrile, HD stable.] Reports marked symptomatic improvement in her headache, nausea vomiting and abdominal pain. Laboratory workup independently interpreted by me and significant for mild leukocytosis, normal renal function, no significant electrolyte derangement, negative lipase.. CT imaging of the abdomen pelvis was considered, but deemed unnecessary due to history and exam. Given patient history, exam and workup, patient's presentation most likely represents mild dehydration and subsequent headache in the setting of likely gastroenteritis. I had extensive discussion with patient regarding her presentation. Patient was discharged with additional prescription for Phenergan, return precautions given. Patient discharged in stable condition. Procedures Risk/Benefits of Procedure(s) Were Explained: Yes Critical Care Critical Care Time Critical Care Time: No
--- NOTE | 2023-12-13 23:27 | XR_ITS ---
PROCEDURE INFORMATION: Exam: XR Chest Exam date and time: 12/13/2023 11:42 PM Age: 38 years old Clinical indication: Shortness of breath; Additional info: Fever, cough TECHNIQUE: Imaging protocol: Radiologic exam of the chest. Views: 1 view. COMPARISON: CT ANGIO CHEST PE PROTOCOL 12/01/2023 7:52 PM FINDINGS: Lungs: Stable calcified granuloma in the peripheral right mid lung. Pleural spaces: No large effusion or pneumothorax. Heart/Mediastinum: Stable cardiac and mediastinal contours. Bones/joints: No evidence of acute osseous abnormalities within the visualized portions of the thoracic spine and ribs. Osseous structures appear appropriate for patient age. IMPRESSION: No dense parenchymal consolidation, pleural effusion, or pneumothorax.
[2023-12-13] MEDS: BELLADONNA ALKALOIDS 60 ML ML PO (23:53)
[2023-12-13] MEDS: diphenhydrAMINE 50MG/ML VIAL 25 MG IV (23:54)
[2023-12-13] MEDS: ACETAMINOPHEN 500MG TAB 1000 MG PO (23:54)
[2023-12-13] MEDS: PROCHLORPERAZINE 10MG/2ML VIAL 10 MG IV (23:54)
[2023-12-13] MEDS: LACTATED RINGERS 1000ML 1,000 ML 999 ML IV (23:54)
[2023-12-13] MEDS: MAGNESIUM SULFATE IN WATER 2 GM/50 ML PIGGYBACK IV (23:54)
[2023-12-13 23:55] LABS: Basophils # 0.1 K/mm3 (0-0.2); Basophils % 0.6 % (0.1-2.0); Eosinophils # 0.3 K/mm3 (0.0-0.4); Eosinophils % 2.6 % (0.1-12.0); Hematocrit 40.3 % (37.0-47.0); Lymphocytes % 16.2 % (10-50); Mean Corpuscular HGB Conc 32.3 g/dL (31.8-35.4); Mean Corpuscular Hemoglobin 28.8 pg (27.0-31.2); Mean Corpuscular Volume 89.2 fl (81-99); Monocytes # 0.7 K/mm3 (0.1-1.0); Monocytes % 5.6 % (1.7-9.3); Neutrophils # 9.2 K/mm3 (1.8-7.8); Neutrophils % 74.9 % (37.0-80.0); Platelet Count 257 K/mm3 (142-424); Red Blood Count 4.51 M/mm3 (4.20-5.40); Red Cell Distribution Width 16.3 % (11.5-17.5); White Blood Count 12.3 K/mm3 (4.8-10.8)
[2023-12-14 00:04] LABS: Alanine Aminotransferase 17 U/L (12-78); Albumin Level 3.8 g/dl (3.5-5.0); Albumin/Globulin Ratio 1.3 (1.1-1.8); Alkaline Phosphatase 108 U/L (38-126); Anion Gap 6.6 mEq/L (5-15); Aspartate Amino Transferase 26 U/L (14-36); Bilirubin,Total 0.3 mg/dl (0.2-1.3); Blood Urea Nitrogen 13 mg/dl (7-17); Calcium 9.2 mg/dl (8.4-10.2); Carbon Dioxide 30 mmol/L (22.0-30.0); Chloride 106 mmol/L (98-107); Creatinine Clearance Estimated 124 mL/min (50-200); Estimated Glomerular Filt Rate 93 ml/min (>60); GFR (African American) 113 ML/MIN (>60); Glucose 112 mg/dl (74-100); Lipase 147 U/L (23-300); Potassium 3.6 mmoL/L (3.5-5.1); Sodium 139 mmol/L (136-145); Total Protein,Serum 6.8 g/dl (6.3-8.2)
[2023-12-14 00:09] LABS: Coronavirus 19, PCR Not Detected (NotDetected); Influenza A, PCR Not Detected (NotDetected); Influenza B, PCR Not Detected (NotDetected)
[2023-12-14 01:21] VITALS: BP 84/60; PULSE 61; RESP 14; TEMP 36.4; O2SAT 96
== END 2023-12-14 01:27 | disposition home or self-care (01) ==
PROVIDERS: Emergency Provider Emergency Medicine; PCP Internal Medicine Adolescent Medicine
DX: R10.9 Unspecified abdominal pain (principal); R11.2 Nausea with vomiting, unspecified; R51.9 Headache, unspecified; K21.9 Gastro-esophageal reflux disease without esophagitis; F17.210 Nicotine dependence, cigarettes, uncomplicated; I10 Essential (primary) hypertension; E78.5 Hyperlipidemia, unspecified
CPT/HCPCS: 71045; 80053; 83690; 85025; 87636; 96365; 96375; 99284; J3475

== ENCOUNTER 2023-12-29 14:00 | Day surgery (SDC) | payer OTHER, SELFPAY ==
[2023-12-29 14:10] VITALS: BP 131/73; PULSE 80; RESP 18; TEMP 36.4; O2SAT 100; BMI 23.3
[2023-12-29 14:26] VITALS: BP 120/69; PULSE 79; RESP 18; O2SAT 100
[2023-12-29 14:33] VITALS: BP 120/69; PULSE 79; RESP 18; O2SAT 100
[2023-12-29 14:36] VITALS: BP 113/79; PULSE 71; RESP 18; O2SAT 100
--- NOTE | 2023-12-29 14:56 | EXP.PAIN.PRO ---
Procedure Date: 12/29/23 Time: 14:00 Anesthesiologist:: Akil Avila CRNA Complications:: None Pre-procedure Diagnosis:: Degenerative disc lumbar spine multilevels. Lumbar radiculopathy. Post-procedure Diagnosis:: Same. Indications for Procedure:: This patient is a pleasant 38-year-old female comes our clinic today for intrathecal pain pump interrogation refill. She is currently being managed with morphine sulfate 1 mg/mL at a rate of 0.2398 mg/day. We will be exchanging her medication for morphine sulfate 2 mg/mL. She is not asking for any changes in the intrathecal pain pump management. She is not reporting side effects or complications. Procedure Details:: Details of the procedure explained to the patient. The patient taken procedure and placed in sitting position. The area of the pump was cleansed using chlorhexidine's cleansing solution. The pump was interrogated. The pump was accessed with ease using a 22-gauge inch and half needle. 11 cc of solution was withdrawn discarded appropriate. The pump was then filled with 20 cc of a solution containing morphine sulfate 2 mg/mL. The pump rate will continue at 0.2398 mg/day. Patient tolerated procedure without difficulty. There are no complications. Plan and Disposition:: Patient was discharged without incident.
== END 2023-12-29 14:36 | disposition home or self-care (01) ==
LOC: SC.PAINP 14:01
PROVIDERS: PCP Internal Medicine Adolescent Medicine; Visit Provider Nurse Anesthetist, Certified Registered
DX: M51.16 Intervertebral disc disorders with radiculopathy, lumbar region (principal); Z97.8 Presence of other specified devices; Z45.1 Encounter for adjustment and management of infusion pump
CPT/HCPCS: 95991

== ENCOUNTER 2024-01-28 11:44 | Emergency (ER) | payer OTHER, SELFPAY ==
[2024-01-28 11:45] VITALS: BP 109/74; PULSE 95; RESP 16; TEMP 36.8; O2SAT 99; BMI 23.6
[2024-01-28 12:14] LABS: Basophils # 0.1 K/mm3 (0-0.2); Basophils % 0.7 % (0.1-2.0); Eosinophils # 0.2 K/mm3 (0.0-0.4); Hematocrit 37.1 % (37.0-47.0); Hemoglobin 11.6 g/dL (12.2-16.2); Lymphocytes # 1.8 K/mm3 (0.7-4.5); Lymphocytes % 18.7 % (10-50); Mean Corpuscular HGB Conc 31.2 g/dL (31.8-35.4); Mean Corpuscular Hemoglobin 28.5 pg (27.0-31.2); Mean Corpuscular Volume 91.5 fl (81-99); Mean Platelet Volume 8.6 fl (7.4-10.4); Monocytes # 0.4 K/mm3 (0.1-1.0); Monocytes % 4.1 % (1.7-9.3); Neutrophils # 7.2 K/mm3 (1.8-7.8); Neutrophils % 74.5 % (37.0-80.0); Platelet Count 282 K/mm3 (142-424); Red Blood Count 4.05 M/mm3 (4.20-5.40); Red Cell Distribution Width 13.6 % (11.5-17.5); White Blood Count 9.6 K/mm3 (4.8-10.8)
[2024-01-28 12:17] LABS: Chloride 107 mmol/L (98-107); Potassium 4.1 mmoL/L (3.5-5.1); Sodium 141 mmol/L (136-145)
[2024-01-28 12:20] LABS: Alanine Aminotransferase 21 U/L (12-78); Albumin Level 3.7 g/dl (3.5-5.0); Albumin/Globulin Ratio 1.1 (1.1-1.8); Alkaline Phosphatase 99 U/L (38-126); Anion Gap 9.1 mEq/L (5-15); Aspartate Amino Transferase 31 U/L (14-36); Bilirubin,Total 0.4 mg/dl (0.2-1.3); Blood Urea Nitrogen 22 mg/dl (7-17); Carbon Dioxide 29 mmol/L (22.0-30.0); Creatinine Clearance Estimated 124 mL/min (50-200); Estimated Glomerular Filt Rate 93 ml/min (>60); GFR (African American) 113 ML/MIN (>60); Globulin 3.5 g/dL (1.3-3.2); Glucose 93 mg/dl (74-100); Total Protein,Serum 7.2 g/dl (6.3-8.2)
--- NOTE | 2024-01-28 14:04 | PC.NURSE ---
Dr. Gerardo lyles.
[2024-01-28] MEDS: PANTOPRAZOLE 40MG VIAL 40 MG IV (14:15)
--- NOTE | 2024-01-28 14:15 | PC.NURSE ---
calling [facility] at this time.
[2024-01-28 14:16] LABS: Activated Partial Thrombo Time 28.8 seconds (22.8-30.6); INR 1.06 (0.9-1.1); Prothrombin Time 11.4 seconds (10.1-12.5)
[2024-01-28] MEDS: MORPHINE 4MG/ML SYRINGE 4 MG IV (14:16)
[2024-01-28] MEDS: LACTATED RINGERS 1000ML 1,000 ML 999 ML IV (14:16)
[2024-01-28] MEDS: ONDANSETRON 4MG/2ML VIAL 4 MG IV (14:16)
--- NOTE | 2024-01-28 14:25 | PC.NURSE ---
talking to at this time .
--- NOTE | 2024-01-28 14:35 | HMH.EDGENADL ---
Discharge Plan Disposition Patient Disposition: Xfer Other Chief Complaint: Nausea/Vomiting/Diarrhea Prescriptions Prescriptions: No Action alprazolam 0.5 mg tablet 0.5 mg PO TIDP PRN (Reason: Anxiety) Qty: 30 Patient Comments: TAKE 1 TABLET BY MOUTH EVERY 8 HOURS NEEDED FOR ANXIETY MAY CAUSEDROWSINESS pregabalin 200 mg capsule 200 mg PO BID pantoprazole 40 mg tablet,delayed release (DR/EC) 40 mg PO DAILY spironolactone 25 mg tablet See Rx Instructions .ROUTE .COMPLEX Qty: 90 4RF Dose Instruction: TAKE ONE TABLET BY MOUTH EVERY DAY Rx Instructions: TAKE ONE TABLET BY MOUTH EVERY DAY furosemide 40 mg tablet See Rx Instructions .ROUTE .COMPLEX Qty: 90 1RF Dose Instruction: TAKE ONE TABLET BY MOUTH EVERY DAY Rx Instructions: TAKE ONE TABLET BY MOUTH EVERY DAY promethazine 12.5 mg tablet 12.5 mg PO BID PRN (Reason: nausea/vomiting) misoprostol 200 mcg tablet 200 mcg PO BID desvenlafaxine succinate [Pristiq] 50 mg Tablet Extended Release 24 Hr 50 mg PO DAILY cyclobenzaprine 10 mg tablet 10 mg PO TID PRN (Reason: Anxiety) Patient Comments: TAKE ONE TABLET BY MOUTH THREE TIMES DAILY NEEDED hydroxyzine pamoate 50 mg capsule 50 mg PO Q4-6H PRN (Reason: Anxiety) Patient Comments: TAKE ONE CAPSULE BY MOUTH EVERY 4 HOURS NEEDED MAY CAUSE DROWSINESS quetiapine 100 mg tablet See Rx Instructions .ROUTE .COMPLEX Patient Comments: TAKE ONE TABLET BY MOUTH EVERY DAY AT BEDTIME Rx Instructions: 100 mg orally colestipol 1 gram tablet 1 g PO DAILY Patient Comments: TAKE ONE TABLET BY MOUTH ONCE DAILY DIRECTED lamotrigine 100 mg tablet 100 mg PO BID Patient Comments: TAKE ONE TABLET BY MOUTH TWICE DAILY metoclopramide HCl 10 mg tablet 10 mg PO BID Patient Comments: TAKE ONE TABLET BY MOUTH TWICE DAILY buspirone 10 MG tablet 10 mg PO BID famotidine 20 mg tablet 20 mg PO BID promethazine 12.5 mg tablet 12.5 mg PO TID PRN (Reason: nausea and vomiting) Qty: 30 0RF Referrals Follow up/Referrals: Luciano Falk MD [Primary Care Provider] - See instructions Clinical Impressions Clinical Impression: Acute upper GI bleed Instructions Patient Instructions: DI for Nausea -- Adult, DI for Nausea -- Child, DI for Diarrhea and Traveler's Diarrhea -- Adult, DI for Diarrhea and Traveler's Diarrhea -- Child Discharge ED Provider: Kamla Rosas General Adult HPI General Chief complaint: Nausea/Vomiting/Diarrhea Stated complaint: throwing up blood Time Seen by Provider: 01/28/24 13:56 Mode of Arrival: Wheelchair Source of Information: Patient Limitations: No Limitations Description of Symptoms (Recalled from ER Triage Doc. by RN): Patient reports vomiting blood since 4am. States she has known ulcers and never vomited up this much blood. 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 Her surgery was within the last several years by Dr. Velez at [facility]. She states that since this morning she is been throwing up blood has had melena had some abdominal cramping that started yesterday. No anticoagulation or antiplatelet use. No history of liver disease or cirrhosis. No history of varices that she is aware of. Related Data Home Medications Medication Instructions Recorded Confirmed alprazolam 0.5 mg tablet 0.5 mg PO TIDP PRN Anxiety #30 tabs 01/12/19 12/29/23 buspirone 10 mg tablet 10 mg PO BID Anxiety 07/26/20 12/29/23 pregabalin 200 mg capsule 200 mg PO BID RLS 02/05/21 12/29/23 pantoprazole 40 mg tablet,delayed 40 mg PO DAILY STOMACH 08/18/22 12/29/23 release famotidine 20 mg tablet 20 mg PO BID STOMACH 01/21/23 12/29/23 desvenlafaxine succinate 50 mg 50 mg PO DAILY Depression 04/20/23 12/29/23 tablet,extended release 24 hr (Pristiq) misoprostol 200 mcg tablet 200 mcg PO BID stomach 04/20/23 12/29/23 promethazine 12.5 mg tablet 12.5 mg PO BID PRN nausea/vomiting 04/20/23 12/29/23 colestipol 1 gram tablet 1 g PO DAILY 08/06/23 12/29/23 cyclobenzaprine 10 mg tablet 10 mg PO TID PRN Anxiety 08/06/23 12/29/23 hydroxyzine pamoate 50 mg capsule 50 mg PO Q4-6H PRN Anxiety 08/06/23 12/29/23 lamotrigine 100 mg tablet 100 mg PO BID 08/06/23 12/29/23 metoclopramide HCl 10 mg tablet 10 mg PO BID 08/06/23 12/29/23 quetiapine 100 mg tablet See Rx Instructions .Route .COMPLEX 08/06/23 12/29/23 Previous Rx's Medication Instructions Recorded spironolactone 25 mg tablet See Rx Instructions .Route 08/18/23 .COMPLEX #90 tabs furosemide 40 mg tablet See Rx Instructions .Route 08/26/23 .COMPLEX #90 tabs promethazine 12.5 mg tablet 12.5 mg PO TID PRN nausea and 12/14/23 vomiting #30 tabs Allergies Allergy/AdvReac Type Severity Reaction Status Date / Time hydromorphone [From Dilaudid] Allergy Intermediate Verified 12/29/23 14:11 NSAIDS (Non-Steroidal Allergy Unknown Verified 12/29/23 14:11 Anti-Inflamma lactose AdvReac Mild Nausea Verified 12/29/23 14:11 cilantro Allergy Severe throat and Uncoded 07/07/23 15:04 tongue swells, hives on face [facility] Disclaimer: The information contained in this section may have been updated after the patient was seen, as this information can be updated by other users. Medical History Afib Anxiety Arrhythmia Asthma DVT (deep venous thrombosis) Edema Elevated left ventricular end-diastolic pressure (LVEDP) GERD (gastroesophageal reflux disease) Heart murmur History of left heart catheterization History of pulmonary embolism HLD (hyperlipidemia) HTN (hypertension) Migraine LEONORA (obstructive sleep apnea) Osteoarthritis Pulmonary embolism SVT (supraventricular tachycardia) Surgical History H/O foot surgery H/O knee surgery History of bariatric surgery History of cholecystectomy History of esophageal surgery History of exploratory laparotomy History of lumpectomy of left breast Previous back surgery Family History Other Family history of cancer Family history of hypertension Social History Smoking Status: Current every day smoker tobacco type: cigarettes packs per day: 4 second hand exposure: No alcohol intake: never substance use type: marijuana current occupational status: other Travel in the last 8 weeks: None household members: spouse housing: house number of children: 0 current occupational exposures/hazards: No caffeine: No ROS Obtained: Yes All systems reviewed & no additional complaints except as documented Physical Exam General General appearance: alert Respiratory Respiratory exam: Present normal lung sounds bilaterally Cardiovascular Cardiovascular exam: Present regular rate and normal rhythm Abdominal Exam Abdominal exam: Present soft; Absent distention or tenderness Neurological Exam Neurological exam: Present alert and oriented X3 Medical Decision Making Dinesh Inquiry Pt receiving controlled substance: No Vital Signs: 01/28/24 11:45 Temperature 98.2 F Temperature Source Oral Pulse Rate [Radial] 95 H Respiratory Rate 16 Blood Pressure [Right Arm] 109/74 L Blood Pressure Mean [Right Arm] 85 Blood Pressure Source [Right Arm] Automatic Cuff Blood Pressure Position [Right Arm] Sitting 02 Sat by Pulse Oximetry 99 Oxygen Delivery Method Room Air Lab Data Lab results reviewed: Yes I reviewed the patient's lab results. Lab Results 01/28/24 11:51: WBC 9.6, RBC 4.05 L, Hgb 11.6 L, Hct 37.1, MCV 91.5, MCH 28.5, MCHC 31.2 L, RDW 13.6, Plt Count 282, MPV 8.6, Neut % (Auto) 74.5, Lymph % (Auto) 18.7, Navarro % (Auto) 4.1, Eos % (Auto) 2.0, Baso % (Auto) 0.7, Neut # (Auto) 7.2, Lymph # (Auto) 1.8, Navarro # (Auto) 0.4, Eos # (Auto) 0.2, Baso # (Auto) 0.1, Sodium 141, Potassium 4.1, Chloride 107, Carbon Dioxide 29, Anion Gap 9.1, BUN 22 H, Creatinine 0.70, Estimated Creat Clear 124, Estimated GFR 93, Est GFR ( Amer) 113, Glucose 93, Calcium 9.0, Total Bilirubin 0.4, AST 31, ALT 21, Alkaline Phosphatase 99, Total Protein 7.2, Albumin 3.7, Globulin 3.5 H, Albumin/Globulin Ratio 1.1 01/28/24 11:51 01/28/24 11:51 Orders (Tests/Meds): ED MEDICATIONS Generic Name Dose Route Start Last Admin Trade Name Freq PRN Reason Stop Dose Admin Lactated Ringer's 1,000 mls @ 999 mls/hr 01/28/24 14:15 01/28/24 14:16 Lactated Ringer's 1000 Ml Bag IV 01/28/24 15:15 999 mls/hr .Q1H1M CLARISA Administration Sodium Chloride 10 ml 01/28/24 14:04 Sodium Chloride 0.9% 10ml Vial IV 02/27/24 14:03 NEEDED PRN dilute protonix Discontinued Medications Generic Name Dose Route Start Last Admin Trade Name Freq PRN Reason Stop Dose Admin Morphine Sulfate 4 mg 01/28/24 14:04 01/28/24 14:16 Morphine 4mg/Ml Syringe IV 01/28/24 14:05 4 mg ONCE ONE Administration Ondansetron HCl 4 mg 01/28/24 14:04 01/28/24 14:16 Ondansetron 4mg/2ml Vial IV 01/28/24 14:05 4 mg ONCE ONE Administration Pantoprazole Sodium 40 mg 01/28/24 14:04 01/28/24 14:15 Pantoprazole 40mg Vial IV 01/28/24 14:05 40 mg ONCE ONE Administration ORDERS Category Date Time Status Type and Screen Stat BBK 01/28/24 14:12 Received CMP [Comprehensive Metabolic Panel] Stat Lab 01/28/24 11:51 Completed Complete Blood Count Auto Diff Stat Lab 01/28/24 11:51 Completed PT/PTT Stat Lab 01/28/24 11:51 Received Medical Decision Narrative: She was [id number] female presents today with hematemesis and melena. Most recent episode was around 11 AM. She did bring in a cup of the cup and it does very clearly appear to be bright red blood. She has not had any hematemesis in the last 2 and half hours while she is been in the emergency department she has remained hemodynamically stable as well. Hemoglobin baseline is around 14 and now is 11.6. She seems to have been bleeding whole blood may take a while for this to settle out was volume has redistributed. Mild BUN/creatinine ratio elevation consistent with upper GI bleed. Type and screen was sent. She is been given IV fluids and IV pantoprazole. No further interventions necessary at the moment other than symptomatic control including pain medicine nausea medicine. I spoke with Dr. Blankenship our general surgeon who would not like to manage this given the fact that this is a bariatric surgery complication. I subsequently spoke with Dr. Gonzalez who is on-call for Dr. Velez's team at [facility] explained the case to her she agreed to see the patient in consultation and to admit the patient to medicine and I subsequently spoke to Dr. Santos at [facility] who accepted the patient. Patient is agreeable to this plan was transferred. Critical Care Critical Care Time Critical Care Time: Yes Attestation: On 01/28/24, the high probability of a clinically significant, sudden or life threatening deterioration of the following system(s) required my full and direct attention, intervention and personal management. The time I documented below is in addition to time spent performing reported procedures but includes the following listed in this critical care notation. Total Time Total Critical Care Time: 35
--- NOTE | 2024-01-28 14:49 | PC.NURSE ---
in room talking with patient at this time.
[2024-01-28 15:23] VITALS: BP 89/51; PULSE 83; O2SAT 97
[2024-01-28 15:25] VITALS: BP 89/57; PULSE 71; O2SAT 95
[2024-01-28 15:30] VITALS: BP 91/53; PULSE 71; O2SAT 98
--- NOTE | 2024-01-28 15:41 | PC.NURSE ---
Report called to DARCY Trinidad at [facility].
--- NOTE | 2024-01-28 15:50 | PC.NURSE ---
EMS notified of ALS patient transport to [facility]
[2024-01-28 16:53] VITALS: BP 101/80; PULSE 71; RESP 19; TEMP 36.8; O2SAT 98
--- NOTE | 2024-01-30 18:17 | PC.NURSE ---
Printed face-sheet for EMS
== END 2024-01-28 16:55 | disposition other institution (70) ==
PROVIDERS: Student in an Organized Health Care Education/Training Program; Emergency Provider Emergency Medicine; PCP Internal Medicine Adolescent Medicine
DX: K92.2 Gastrointestinal hemorrhage, unspecified (principal); K92.0 Hematemesis; K95.89 Other complications of other bariatric procedure; F17.210 Nicotine dependence, cigarettes, uncomplicated; K21.9 Gastro-esophageal reflux disease without esophagitis; I10 Essential (primary) hypertension; E78.5 Hyperlipidemia, unspecified; Z86.718 Personal history of other venous thrombosis and embolism; Z86.711 Personal history of pulmonary embolism; Z98.84 Bariatric surgery status
CPT/HCPCS: 80053; 85025; 85610; 85730; 86850; 96361; 96374; 96375; 99285; J2270; J2405; J7120

== ENCOUNTER 2024-03-15 14:10 | Day surgery (SDC) | payer OTHER, SELFPAY ==
[2024-03-15 14:30] VITALS: BP 98/66; PULSE 76; RESP 18; TEMP 36.2; O2SAT 98; BMI 20.7
[2024-03-15 14:57] VITALS: BP 109/74; PULSE 72; RESP 18; O2SAT 100
[2024-03-15 14:58] VITALS: BP 109/74; PULSE 72; RESP 18; O2SAT 100
[2024-03-15 15:00] VITALS: BP 80/50; PULSE 63; RESP 18; O2SAT 98
--- NOTE | 2024-03-15 15:00 | P.PCN_ITS ---
Procedure Date: 03/15/24 Time: 14:50 Anesthesiologist:: Akil Avila CRNA Complications:: None Pre-procedure Diagnosis:: Degenerative disc lumbar spine multilevels. Lumbar radiculopathy. Post-procedure Diagnosis:: Same. Indications for Procedure:: Patient very pleasant 38-year-old female comes our clinic today for intrathecal pain pump interrogation and refill. Patient is currently being managed with morphine sulfate 2 mg/mL at a rate of 0.2398 mg today. She is doing very well at her current settings. She not reporting side effects or complications. She is not requesting any changes. Procedure Details:: Details of the procedure explained to the patient. The patient taken to procedure room placed in the sitting position. The area of the pump was cleansed using chlorhexidine as a cleansing solution. The pump was interrogate d. The pump was accessed with ease using a 22-gauge inch and half needle. 7.5 mL of solution was withdrawn discarded appropriate. The pump was then filled with 20 cc of solution containing morphine sulfate 2 mg/mL. The rate will continue the same. Patient tolerated procedure without difficulty. There are no complications. Plan and Disposition:: Patient was discharged without incident.
--- NOTE | 2024-03-15 15:03 | PC.NURSE ---
pt report this as a normal bp reading for her. Pt declines wanting to stay have bp monitored.
== END 2024-03-15 15:04 | disposition home or self-care (01) ==
PROVIDERS: PCP Internal Medicine Adolescent Medicine; Visit Provider Nurse Anesthetist, Certified Registered
DX: G89.29 Other chronic pain (principal); M54.16 Radiculopathy, lumbar region; M51.36 Other intervertebral disc degeneration, lumbar region
CPT/HCPCS: 95991

== ENCOUNTER 2024-04-26 10:22 | Emergency (ER) | payer OTHER, SELFPAY ==
[2024-04-26 10:35] VITALS: BP 110/79; PULSE 89; RESP 18; TEMP 36.9; O2SAT 100
--- NOTE | 2024-04-26 10:46 | EXP.UTC ---
Discharge Plan Disposition Patient Disposition: Home, Self-Care Condition: Good Prescriptions Prescriptions: No Action alprazolam 0.5 mg tablet 0.5 mg PO TIDP PRN (Reason: Anxiety) Qty: 30 Patient Comments: TAKE 1 TABLET BY MOUTH EVERY 8 HOURS NEEDED FOR ANXIETY MAY CAUSEDROWSINESS pregabalin 200 mg capsule 200 mg PO BID pantoprazole 40 mg tablet,delayed release (DR/EC) 40 mg PO DAILY spironolactone 25 mg tablet See Rx Instructions .ROUTE .COMPLEX Qty: 90 4RF Dose Instruction: TAKE ONE TABLET BY MOUTH EVERY DAY Rx Instructions: TAKE ONE TABLET BY MOUTH EVERY DAY furosemide 40 mg tablet See Rx Instructions .ROUTE .COMPLEX Qty: 90 1RF Dose Instruction: TAKE ONE TABLET BY MOUTH EVERY DAY Rx Instructions: TAKE ONE TABLET BY MOUTH EVERY DAY promethazine 12.5 mg tablet 12.5 mg PO BID PRN (Reason: nausea/vomiting) misoprostol 200 mcg tablet 200 mcg PO BID desvenlafaxine succinate [Pristiq] 50 mg Tablet Extended Release 24 Hr 50 mg PO DAILY cyclobenzaprine 10 mg tablet 10 mg PO TID PRN (Reason: Anxiety) Patient Comments: TAKE ONE TABLET BY MOUTH THREE TIMES DAILY NEEDED hydroxyzine pamoate 50 mg capsule 50 mg PO Q4-6H PRN (Reason: Anxiety) Patient Comments: TAKE ONE CAPSULE BY MOUTH EVERY 4 HOURS NEEDED MAY CAUSE DROWSINESS quetiapine 100 mg tablet See Rx Instructions .ROUTE .COMPLEX Patient Comments: TAKE ONE TABLET BY MOUTH EVERY DAY AT BEDTIME Rx Instructions: 100 mg orally colestipol 1 gram tablet 1 g PO DAILY Patient Comments: TAKE ONE TABLET BY MOUTH ONCE DAILY DIRECTED lamotrigine 100 mg tablet 100 mg PO BID Patient Comments: TAKE ONE TABLET BY MOUTH TWICE DAILY metoclopramide HCl 10 mg tablet 10 mg PO BID Patient Comments: TAKE ONE TABLET BY MOUTH TWICE DAILY buspirone 10 MG tablet 10 mg PO BID famotidine 20 mg tablet 20 mg PO BID promethazine 12.5 mg tablet 12.5 mg PO TID PRN (Reason: nausea and vomiting) Qty: 30 0RF Referrals Follow up/Referrals: Luciano Falk MD [Primary Care Provider] - See instructions Activity Restrictions/Add. Instructions Additional Instructions/Restrictions: Follow up with your Family Doctor next week for the test results and discuss Keep area clean and dry Straight to ER if any life threatening symptoms Clinical Impressions Clinical Impression: Exposure to hepatitis C Instructions Patient Instructions: Hepatitis C Virus, DI for Hepatitis C Print Language Print Language: [place] Discharge ED Provider: Hoda Palacios [facility] – [place], [place] HPI General Stated complaint: needle stick Mode of Arrival: Ambulatory Source of Information: Patient Limitations: No Limitations Time Seen by Provider: 04/26/24 10:46 Description of Symptoms (Recalled from Triage Doc. by RN): PATIENT REPORTS STEPPING ON A USED TAZER PRONG 2 WEEKS AGO. PATIENT STATES HER BOYFRIEND MAY HAVE CONTRACTED HEPATITIS C AND WANTS TESTED HEENT Symptoms (Recalled from RN notes): No Resp Symptoms (Recalled from RN notes): No Skin Symptoms (Recalled from RN notes): Yes MS Symptoms (Recalled from RN notes): No Functional Status (Recalled from RN notes): WNL History of Present Illness Provider Complaint: Patient states she stepped on a tazer prong about 2 weeks ago in her driveway from where they had to taze her significant other 2 weeks ago, States she later found out that he tested positive for Hep C States now she is worried and wanted to get tested for Hepatitis C and HIV tetanus up to date Related Data Home Medications ?Medication ?Instructions ?Recorded ?Confirmed alprazolam 0.5 mg tablet 0.5 mg PO TIDP PRN Anxiety #30 tabs 01/12/19 03/15/24 buspirone 10 mg tablet 10 mg PO BID Anxiety 07/26/20 03/15/24 pregabalin 200 mg capsule 200 mg PO BID RLS 02/05/21 03/15/24 pantoprazole 40 mg tablet,delayed 40 mg PO DAILY STOMACH 08/18/22 03/15/24 release famotidine 20 mg tablet 20 mg PO BID STOMACH 01/21/23 03/15/24 desvenlafaxine succinate 50 mg 50 mg PO DAILY Depression 04/20/23 03/15/24 tablet,extended release 24 hr (Pristiq) misoprostol 200 mcg tablet 200 mcg PO BID stomach 04/20/23 03/15/24 promethazine 12.5 mg tablet 12.5 mg PO BID PRN nausea/vomiting 04/20/23 03/15/24 colestipol 1 gram tablet 1 g PO DAILY 08/06/23 03/15/24 cyclobenzaprine 10 mg tablet 10 mg PO TID PRN Anxiety 08/06/23 03/15/24 hydroxyzine pamoate 50 mg capsule 50 mg PO Q4-6H PRN Anxiety 08/06/23 03/15/24 lamotrigine 100 mg tablet 100 mg PO BID 08/06/23 03/15/24 metoclopramide HCl 10 mg tablet 10 mg PO BID 08/06/23 03/15/24 quetiapine 100 mg tablet See Rx Instructions .Route .COMPLEX 08/06/23 03/15/24 Previous Rx's ?Medication ?Instructions ?Recorded spironolactone 25 mg tablet See Rx Instructions .Route 08/18/23 .COMPLEX #90 tabs furosemide 40 mg tablet See Rx Instructions .Route 08/26/23 .COMPLEX #90 tabs promethazine 12.5 mg tablet 12.5 mg PO TID PRN nausea and 12/14/23 vomiting #30 tabs Allergies Allergy/AdvReac Type Severity Reaction Status Date / Time hydromorphone [From Dilaudid] Allergy Intermediate Verified 03/15/24 14:31 NSAIDS (Non-Steroidal Allergy Unknown Verified 03/15/24 14:31 Anti-Inflamma lactose AdvReac Mild Nausea Verified 03/15/24 14:31 cilantro Allergy Severe throat and Uncoded 07/07/23 15:04 tongue swells, hives on epic interface analyst's Comp Is this a Worker's Comp case?: No [facility] Disclaimer: The information contained in this section may have been updated after the patient was seen, as this information can be updated by other users. Medical History Afib Anxiety Arrhythmia Asthma DVT (deep venous thrombosis) Edema Elevated left ventricular end-diastolic pressure (LVEDP) GERD (gastroesophageal reflux disease) Heart murmur History of left heart catheterization History of pulmonary embolism HLD (hyperlipidemia) HTN (hypertension) Migraine LEONORA (obstructive sleep apnea) Osteoarthritis Pulmonary embolism SVT (supraventricular tachycardia) Surgical History H/O foot surgery H/O knee surgery History of bariatric surgery History of cholecystectomy History of esophageal surgery History of exploratory laparotomy History of lumpectomy of left breast Previous back surgery Family History Other Family history of cancer Family history of hypertension Social History Smoking Status: Current every day smoker tobacco type: cigarettes packs per day: 4 second hand exposure: No alcohol intake: never substance use type: marijuana current occupational status: other Travel in the last 8 weeks: None household members: spouse housing: house number of children: 0 current occupational exposures/hazards: No caffeine: No ROS Obtained: Yes All systems reviewed & no additional complaints except as documented and Yes Systems reviewed as appropriate & no additional complaints except as documented Constitutional Constitutional: Reports system reviewed and no additional complaints, except as documented and Reports as per HPI ENT Ears, Nose, Mouth, and Throat: Reports system reviewed and no additional complaints, except as documented and Reports as per HPI Cardiovascular Cardiovascular: Reports system reviewed and no additional complaints, except as documented and Reports as per HPI Respiratory Respiratory: Reports system reviewed and no additional complaints, except as documented and Reports as per HPI Gastrointestinal Gastrointestingal: Reports system reviewed and no additional complaints, except as documented and as per HPI Musculoskeletal Musculoskeletal: Reports system reviewed and no additional complaints, except as documented and Reports as per HPI Integumentary/Breasts Skin/Breast: Reports system reviewed and no additional complaints, except as documented and Reports as per HPI Comments: Stepped on tazer prong 2 weeks ago and later found out the person that was tazed has since tested positive for Hep C Physical Exam General General appearance: alert and in no apparent distress ENT ENT exam: Present mucous membranes moist Respiratory Respiratory exam: Present normal lung sounds bilaterally; Absent respiratory distress or wheezes Cardiovascular Cardiovascular exam: Present regular rate, normal rhythm and normal heart sounds Abdominal Exam Abdominal exam: Present soft and normal bowel sounds; Absent distention or tenderness Neurological Exam Neurological exam: Present alert, oriented X3 and normal gait Medical Decision Making Dinesh Inquiry Pt receiving controlled substance: No Dinesh was queried for this patient: No Vital Signs: 04/26/24 10:35 Temperature 98.4 F Temperature Source Oral Pulse Rate [Left Brachial] 89 Respiratory Rate 18 Blood Pressure [Left Arm] 110/79 Blood Pressure Mean [Left Arm] 89 Blood Pressure Source [Left Arm] Automatic Cuff Blood Pressure Position [Left Arm] Sitting 02 Sat by Pulse Oximetry 100 Oxygen Delivery Method Room Air
[2024-04-26 11:21] VITALS: BP 110/79; PULSE 89; RESP 18; TEMP 36.9; O2SAT 100
[2024-04-26 13:45] LABS: HIV (1&2) Antibody Rapid NONREACTIVE (NONREACTIVE)
[2024-04-27 08:49] LABS: HBsAg Screen Negative (Negative); HCV Ab Non Reactive (Non Reactive); Hep A Ab, IGM Negative (Negative); Hep B Core Ab, IgM Negative (Negative); Hepatitis B Surface Antigen Negative (Negative)
== END 2024-04-26 11:24 | disposition home or self-care (01) ==
PROVIDERS: Emergency Provider Nurse Practitioner; PCP Internal Medicine Adolescent Medicine
DX: Z11.3 Encounter for screening for infections with a predominantly sexual mode of transmission (principal)
CPT/HCPCS: 80074; 87389; 99202; 99212; G0463

== ENCOUNTER 2024-05-31 11:50 | Day surgery (SDC) | payer OTHER, SELFPAY ==
[2024-05-31 12:06] VITALS: BP 111/71; PULSE 72; RESP 16; O2SAT 98; BMI 19.9
[2024-05-31 12:18] VITALS: BP 127/90; PULSE 74; RESP 18; O2SAT 99
[2024-05-31 12:20] VITALS: BP 127/90; PULSE 74; RESP 18; O2SAT 99
--- NOTE | 2024-05-31 12:24 | EXP.PAIN.PRO ---
Procedure Date: 05/31/24 Time: 12:15 Anesthesiologist:: Akil Avila CRNA Complications:: None Pre-procedure Diagnosis:: Degenerative disc lumbar spine multilevels. Lumbar radiculopathy. Post-procedure Diagnosis:: Same. Indications for Procedure:: Patient is a very pleasant 39-year-old female comes our clinic today for intrathecal pain pump interrogation and refill and reprogramming. Patient is currently being managed with morphine sulfate 2 mg/mL at a rate of 0.2398 mg/day. She is doing very well with her current settings. She is not requesting any changes. She is not reporting side effects or complications. Patient is awake alert Bol[place]ar x 3. No acute distress. Flexion-extension lumbar spine somewhat guarded secondary to pain. Deep tendon reflexes upper and lower extremities normal. Motor strength upper and lower extremities normal. There is no gross sensory deficit. Gait is normal. Procedure Details:: Details of the procedure explained to the patient. The patient taken into the procedure room and placed in the sitting position. They over the pump was cleansed using chlorhexidine as a cleansing solution. The pump was interrogated. Pump was accessed with ease using a 22-gauge inch and half needle. 7 mL of solution was withdrawn discarded appropriate. The pump was then filled with 20 cc of solution containing morphine sulfate 2 mg/mL. The rate will remain the same. 0.2398 mg/day. Patient tolerated procedure without difficulty. There are no complications. Plan and Disposition:: Patient was discharged without incident.
[2024-05-31 12:28] VITALS: BP 111/72; PULSE 71; RESP 16; O2SAT 99
== END 2024-05-31 12:28 | disposition home or self-care (01) ==
PROVIDERS: PCP Internal Medicine Adolescent Medicine; Visit Provider Nurse Anesthetist, Certified Registered
DX: M51.16 Intervertebral disc disorders with radiculopathy, lumbar region (principal)
CPT/HCPCS: 62370

== ENCOUNTER 2024-07-01 16:42 | Emergency (ER) | payer OTHER, SELFPAY ==
[2024-07-01 17:10] VITALS: BP 116/68; PULSE 78; RESP 18; TEMP 37.3; O2SAT 99; BMI 20.8
--- NOTE | 2024-07-01 17:26 | EXP.UTC ---
Discharge Plan Disposition Patient Disposition: Home, Self-Care Condition: Good Prescriptions Prescriptions: New azithromycin [Zithromax] 250 mg tablet 250 mg PO UD DOSE PK Qty: 6 0RF Rx Instructions: Take two (2) tablets today, then one (1) tablet days #2 thru #5 promethazine 25 mg tablet 25 mg PO TID PRN (Reason: nausea and vomiting) Qty: 20 0RF No Action alprazolam 0.5 mg tablet 0.5 mg PO TIDP PRN (Reason: Anxiety) Qty: 30 Patient Comments: TAKE 1 TABLET BY MOUTH EVERY 8 HOURS NEEDED FOR ANXIETY MAY CAUSEDROWSINESS pregabalin 200 mg capsule 200 mg PO BID Referrals Follow up/Referrals: Luciano Falk MD [Primary Care Provider] - See instructions Activity Restrictions/Add. Instructions Additional Instructions/Restrictions: Drink plenty of fluids. Take tylenol or ibuprofen for pain or fever. Take the medications as directed. Follow up with your regular doctor. GO TO THE ER FOR ANY WORSENING SYMPTOMS If your diarrhea continues, please return a stool sample to the lab using the supplies we are giving you. The promethazine will make you drowsy, so don't drive or operate heavy machinery after taking it. Clinical Impressions Clinical Impression: Diarrhea Instructions Patient Instructions: Promethazine, Azithromycin Print Language Print Language: Kazakh Discharge ED Provider: Jayden Robles [facility] General Stated complaint: nausea, vomiting, blood in stool Mode of Arrival: Ambulatory Source of Information: Patient Limitations: No Limitations Time Seen by Provider: 07/01/24 17:26 Description of Symptoms (Recalled from Triage Doc. by RN): PATIENT C/O VOMITING, DIARRHEA, FEVER, AND STOMACH PAIN. SHE REPORTS HER HAS E-COLI AND CHAMPELOBACTER HEENT Symptoms (Recalled from RN notes): No Resp Symptoms (Recalled from RN notes): No Skin Symptoms (Recalled from RN notes): No MS Symptoms (Recalled from RN notes): No Functional Status (Recalled from RN notes): WNL Related Data Home Medications ?Medication ?Instructions ?Recorded ?Confirmed alprazolam 0.5 mg tablet 0.5 mg PO TIDP PRN Anxiety #30 tabs 01/12/19 07/01/24 pregabalin 200 mg capsule 200 mg PO BID RLS 06/22/21 11/15/24 Previous Rx's ?Medication ?Instructions ?Recorded azithromycin 250 mg tablet 250 mg PO UD DOSE PK #6 tabs 07/01/24 (Zithromax) promethazine 25 mg tablet 25 mg PO TID PRN nausea and 07/01/24 vomiting #20 tabs Allergies Allergy/AdvReac Type Severity Reaction Status Date / Time hydromorphone (From Dilaudid) Allergy Intermediate Verified 03/15/24 14:31 NSAIDS (Non-Steroidal Allergy Unknown Verified 03/15/24 14:31 Anti-Inflamma lactose AdvReac Mild Nausea Verified 03/15/24 14:31 cilantro Allergy Severe throat and Uncoded 07/07/23 15:04 tongue swells, 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 Medical History Afib Anxiety Arrhythmia Asthma DVT (deep venous thrombosis) Edema Elevated left ventricular end-diastolic pressure (LVEDP) GERD (gastroesophageal reflux disease) Heart murmur History of left heart catheterization History of pulmonary embolism HLD (hyperlipidemia) HTN (hypertension) Migraine LEONORA (obstructive sleep apnea) Osteoarthritis Pulmonary embolism SVT (supraventricular tachycardia) Surgical History H/O foot surgery H/O knee surgery History of bariatric surgery History of cholecystectomy History of esophageal surgery History of exploratory laparotomy History of lumpectomy of left breast Previous back surgery Family History Other Family history of cancer Family history of hypertension Social History Smoking Status: Current every day smoker tobacco type: cigarettes packs per day: 4 second hand exposure: No alcohol intake: never substance use type: marijuana current occupational status: other Travel in the last 8 weeks: None household members: spouse housing: house number of children: 0 current occupational exposures/hazards: No caffeine: No ROS Obtained: Yes All systems reviewed & no additional complaints except as documented Constitutional Constitutional: Reports chills and Reports fever(s) Eyes Eyes: Denies eye discharge ENT Ears, Nose, Mouth, and Throat: Reports as per HPI Cardiovascular Cardiovascular: Denies chest pain Respiratory Respiratory: Denies chest congestion and Reports cough Gastrointestinal Gastrointestingal: Reports nausea; Denies abdominal pain, constipation, cramping, diarrhea or vomiting Musculoskeletal Musculoskeletal: Denies arthralgias Integumentary/Breasts Skin/Breast: Denies rash Neurologic Neurologic: Denies paresthesias Physical Exam General General appearance: alert and in no apparent distress Head Head exam: atraumatic, normocephalic and normal inspection Eye Eye exam: Present normal appearance, PERRL and EOMI ENT ENT exam: Present mucous membranes moist and normal external ear exam Expanded ENT Exam TM/Canal exam: Bilateral TM: erythema and bulging Nose exam: Absent sinus tenderness Mouth exam: Present normal external inspection; Absent drooling Teeth exam: Present normal inspection Throat exam: Present tonsillar erythema, tonsillomegaly and tonsillar exudate Neck Neck exam: Present normal inspection, full ROM and trachea midline; Absent tenderness, meningismus or lymphadenopathy Chest Chest inspection: Present normal inspection and symmetric chest wall rise; Absent tenderness Respiratory Respiratory exam: Present normal lung sounds bilaterally; Absent respiratory distress, wheezes, stridor or accessory muscle use Cardiovascular Cardiovascular exam: Present regular rate and normal rhythm; Absent systolic murmur or diastolic murmur Abdominal Exam Abdominal exam: Present soft and normal bowel sounds; Absent distention, tenderness, guarding, rebound or rigidity Extremities Exam Extremities exam: Present normal inspection and normal capillary refill; Absent calf tenderness Back Exam Back exam: Present normal inspection and full ROM; Absent tenderness, CVA tenderness (R) or CVA tenderness (L) Neurological Exam Neurological exam: Present alert, oriented X3 and CN II-XII intact Psychiatric Psychiatric exam: Present normal affect and normal mood Skin Skin exam: Present warm, dry, intact and normal color Medical Decision Making Medical Records Medical records reviewed: No I reviewed the patient's medical records. Screening: Per USPSTF and CDC recommendations, given the prevalence of disease in our region, it is our hospital?s policy to screen for HIV and viral Hepatitis for all patients aged 18 and over and those with ongoing risk factors. Dinesh Inquiry Pt receiving controlled substance: No Vital Signs: 07/01/24 17:10 Temperature 99.1 F Temperature Source Oral Pulse Rate [Left Brachial] 78 Respiratory Rate 18 Blood Pressure [Left Arm] 116/68 Blood Pressure Mean [Left Arm] 84 Blood Pressure Source [Left Arm] Automatic Cuff Blood Pressure Position [Left Arm] Sitting 02 Sat by Pulse Oximetry 99 Oxygen Delivery Method Room Air
[2024-07-01 17:49] VITALS: BP 116/68; PULSE 78; RESP 18; TEMP 37.3; O2SAT 99
== END 2024-07-01 17:52 | disposition home or self-care (01) ==
PROVIDERS: Emergency Provider Nurse Practitioner Family; PCP Internal Medicine Adolescent Medicine
DX: R19.7 Diarrhea, unspecified (principal)
CPT/HCPCS: 99213; G0381

== ENCOUNTER 2024-07-03 16:27 | Outpatient (CLI) | payer OTHER, SELFPAY ==
[2024-07-03 16:34] LABS: Adenovirus F 40/41, stool Not Detected (NotDetected); Astrovirus Not Detected (NotDetected); Campylobacter Not Detected (NotDetected); Clostridium Difficile A/B, PCR Not Detected (NotDetected); Cryptosporidium Not Detected (NotDetected); Cyclospora Cayetanesis Not Detected (NotDetected); Entamoeba histolytica Not Detected (NotDetected); Enteroaggregative E coli Not Detected (NotDetected); Enteropathogenic E coli Not Detected (NotDetected); Enterotoxigenic E coli Not Detected (NotDetected); Giardia lamblia Not Detected (NotDetected); Norovirus Not Detected (NotDetected); Plesimonas Shigalloides, PCR Not Detected (NotDetected); Rotavirus A Not Detected (NotDetected); Salmonella, PCR Not Detected (NotDetected); Sapovirus Not Detected (NotDetected); Shiga-like toxin E coli Not Detected (NotDetected); Shigella Enterovasive E coli Not Detected (NotDetected); Vibrio Cholerae Not Detected (NotDetected); Vibrio, PCR Not Detected (NotDetected); Yersinia Entercolitica, PCR Not Detected (NotDetected)
== END 2024-07-03 23:59 | disposition home or self-care (01) ==
PROVIDERS: Visit Provider Nurse Practitioner Family
DX: R19.7 Diarrhea, unspecified (principal)
CPT/HCPCS: 87507

== ENCOUNTER 2024-07-13 22:29 | Emergency (ER) | payer OTHER, SELFPAY ==
--- NOTE | 2024-07-13 22:27 | ECG_ITS ---
APPROVED REPORT Exam: Resting ECG HR:72 bpm ECG Measurements Heart Rate 72 AXES CA 138 P 54 QRSd 90 QRS 61 QT 373 T 60 QTc 398 Conclusion SINUS RHYTHM POSSIBLE RIGHT VENTRICULAR CONDUCTION DELAY [RSR (QR) IN V1/V2] BORDERLINE ECG Electronically signed by : LIVAN HERR, 07/14/2024 00:15:37
[2024-07-13 22:30] VITALS: BP 135/100; PULSE 66; RESP 12; TEMP 36.8; O2SAT 99; BMI 19.5
[2024-07-13 22:55] VITALS: PULSE 66
[2024-07-13 23:00] VITALS: BP 133/94; RESP 15; O2SAT 96
--- NOTE | 2024-07-13 23:09 | CT_ITS ---
PROCEDURE INFORMATION: Exam: CTA Chest With Contrast Exam date and time: 07/13/2024 11:47 PM Age: 39 years old Clinical indication: Pain; Chest pressure; Additional info: Cp, SOA, prior pe TECHNIQUE: Imaging protocol: Computed tomographic angiography of the chest with contrast. Exam focused on the arteries. 3D rendering (Not supervised by radiologist): MIP and/or 3D reconstructed images were created by the technologist. Radiation optimization: All CT scans at this facility use at least one of these dose optimization techniques: automated exposure control; mA and/or kV adjustment per patient size (includes targeted exams where dose is matched to clinical indication); or iterative reconstruction. Contrast material: ISOVUE; Contrast volume: 70 ml; Contrast route: INTRAVENOUS (IV); COMPARISON: CT ANGIO CHEST PE PROTOCOL 12/01/2023 7:52 PM FINDINGS: Tubes, catheters and devices: Spinal stimulator device or infusion device Pulmonary arteries: No CT evidence of acute pulmonary embolus. Aorta: No aortic dissection. Lungs: Peripheral calcified granuloma right upper lobe image number 53. No acute airspace disease Pleural spaces: No pleural effusion. No pneumothorax. Heart: Unremarkable. No cardiomegaly. No pericardial effusion. Lymph nodes: Unremarkable. No enlarged lymph nodes. Stomach: Previous gastric surgery Bones/joints: Unremarkable. No acute fracture. Soft tissues: Unremarkable. IMPRESSION: 1. No CT evidence of acute pulmonary embolus. 2. Old granulomatous disease 3. No visible acute intrathoracic abnormality
--- NOTE | 2024-07-13 23:14 | HMH.EDGENADL ---
Discharge Plan Prescriptions Prescriptions: No Action alprazolam 0.5 mg tablet 0.5 mg PO TIDP PRN (Reason: Anxiety) Qty: 30 Patient Comments: TAKE 1 TABLET BY MOUTH EVERY 8 HOURS NEEDED FOR ANXIETY MAY CAUSEDROWSINESS pregabalin 200 mg capsule 200 mg PO BID azithromycin [Zithromax] 250 mg tablet 250 mg PO UD DOSE PK Qty: 6 0RF Rx Instructions: Take two (2) tablets today, then one (1) tablet days #2 thru #5 promethazine 25 mg tablet 25 mg PO TID PRN (Reason: nausea and vomiting) Qty: 20 0RF Referrals Follow up/Referrals: Provider,Referral, MD [Primary Care Provider] - See instructions Activity Restrictions/Add. Instructions Additional Instructions/Restrictions: Please follow-up with your primary care provider. Please return to the emergency department if you develop any new or worsening symptoms or become concerned for your health. Clinical Impressions Clinical Impression: Chest pain, Head ache, Chronic nausea Print Language Print Language: Ukrainian Discharge ED Provider: Bogdan Addison Adult HPI General Chief complaint: Chest Pain Stated complaint: CP Time Seen by Provider: 07/13/24 23:01 Mode of Arrival: Wheelchair Source of Information: Patient Limitations: Physical Limitations Description of Symptoms (Recalled from ER Triage Doc. by RN): Pt presents to ED for CP that started approx 5 hours ago. Pt states she has lengthy medical hx. Pt had a PE in 2017 so she was concerned. Pt is A&O*4 and family is bedside. VSS at this time. EKG done on arrival. History of Present Illness HPI narrative: 39-year-old female with extensive past medical history presents for chest pain. She reports that started earlier today. The centrally located. She denies associated shortness of breath or cough. She reports history of PE and reports that this feels somewhat like when she had a PE last time. She also reports chronic nausea and abdominal pain is unchanged from baseline. She also reports headache that is somewhat worse than normal. Related Data Home Medications ?Medication ?Instructions ?Recorded ?Confirmed alprazolam 0.5 mg tablet 0.5 mg PO TIDP PRN Anxiety #30 tabs 01/12/19 07/01/24 pregabalin 200 mg capsule 200 mg PO BID RLS 02/05/21 07/01/24 Previous Rx's ?Medication ?Instructions ?Recorded azithromycin 250 mg tablet 250 mg PO UD DOSE PK #6 tabs 07/01/24 (Zithromax) promethazine 25 mg tablet 25 mg PO TID PRN nausea and 07/01/24 vomiting #20 tabs Allergies Allergy/AdvReac Type Severity Reaction Status Date / Time hydromorphone (From Dilaudid) Allergy Intermediate Verified 03/15/24 14:31 NSAIDS (Non-Steroidal Allergy Unknown Verified 03/15/24 14:31 Anti-Inflamma lactose AdvReac Mild Nausea Verified 03/15/24 14:31 cilantro Allergy Severe throat and Uncoded 07/07/23 15:04 tongue swells, hives on face [facility] Disclaimer: The information contained in this section may have been updated after the patient was seen, as this information can be updated by other users. Medical History Afib Anxiety Arrhythmia Asthma DVT (deep venous thrombosis) Edema Elevated left ventricular end-diastolic pressure (LVEDP) GERD (gastroesophageal reflux disease) Heart murmur History of left heart catheterization History of pulmonary embolism HLD (hyperlipidemia) HTN (hypertension) Migraine LEONORA (obstructive sleep apnea) Osteoarthritis Pulmonary embolism SVT (supraventricular tachycardia) Surgical History H/O foot surgery H/O knee surgery History of bariatric surgery History of cholecystectomy History of esophageal surgery History of exploratory laparotomy History of lumpectomy of left breast Previous back surgery Family History Other Family history of cancer Family history of hypertension Social History Smoking Status: Current every day smoker tobacco type: cigarettes packs per day: 4 second hand exposure: No alcohol intake: never substance use type: marijuana current occupational status: other household members: spouse housing: house number of children: 0 current occupational exposures/hazards: No caffeine: No Other Medical History Have you received the Flu Vaccine for this season: No Have you received the Pneumonia Vaccine: No ROS Obtained: Yes All systems reviewed & no additional complaints except as documented Physical Exam General General appearance: alert Comment: Thin and uncomfortable appearing Head Head exam: atraumatic and normocephalic Eye Eye exam: Present normal appearance, PERRL and EOMI ENT ENT exam: Present normal oropharynx and normal external ear exam Neck Neck exam: Present normal inspection and full ROM Chest Chest inspection: Present normal inspection and symmetric chest wall rise; Absent tenderness Respiratory Respiratory exam: Present normal lung sounds bilaterally; Absent respiratory distress Cardiovascular Cardiovascular exam: Present regular rate and normal rhythm Abdominal Exam Abdominal exam: Present soft; Absent distention, tenderness or guarding Extremities Exam Extremities exam: Present normal inspection; Absent edema or joint swelling Back Exam Back exam: Present normal inspection; Absent tenderness Neurological Exam Neurological exam: Present alert and oriented X3; Absent motor sensory deficit Psychiatric Psychiatric exam: Present normal affect and normal mood Skin Skin exam: Present warm, dry and normal color Lymphatic Lymphatic Findings: no adenopathy Medical Decision Making Medical Records Medical records reviewed: Yes I reviewed the patient's medical records. Screening: Per USPSTF and CDC recommendations, given the prevalence of disease in our region, it is our hospital?s policy to screen for HIV and viral Hepatitis for all patients aged 18 and over and those with ongoing risk factors. Dinesh Inquiry Pt receiving controlled substance: No Dinesh was queried for this patient: No Vital Signs: 07/13/24 22:30 07/13/24 22:55 07/13/24 23:00 Temperature 98.2 F Temperature Source Oral Pulse Rate 66 Pulse Rate [Left] 66 Respiratory Rate 12 15 Blood Pressure 133/94 H Blood Pressure [Right Arm] 135/100 H Blood Pressure Mean 101 Blood Pressure Mean [Right Arm] 111 Blood Pressure Source Blood Pressure Position 02 Sat by Pulse Oximetry 99 96 Oxygen Delivery Method Room Air Room Air 07/13/24 23:15 07/13/24 23:31 07/14/24 00:00 Temperature Temperature Source Pulse Rate 75 64 Pulse Rate [Left] Respiratory Rate 14 18 14 Blood Pressure 138/95 H 115/77 106/68 L Blood Pressure [Right Arm] Blood Pressure Mean 105 91 84 Blood Pressure Mean [Right Arm] Blood Pressure Source Blood Pressure Position 02 Sat by Pulse Oximetry 98 98 95 Oxygen Delivery Method Room Air Room Air Room Air 07/14/24 00:15 07/14/24 00:30 07/14/24 00:45 Temperature Temperature Source Pulse Rate 65 63 63 Pulse Rate [Left] Respiratory Rate 15 14 14 Blood Pressure 110/72 102/55 L 95/49 L Blood Pressure [Right Arm] Blood Pressure Mean 81 70 63 Blood Pressure Mean [Right Arm] Blood Pressure Source Blood Pressure Position 02 Sat by Pulse Oximetry 97 96 96 Oxygen Delivery Method Room Air Room Air Room Air 07/14/24 01:00 07/14/24 01:15 07/14/24 01:30 Temperature Temperature Source Pulse Rate 62 66 66 Pulse Rate [Left] Respiratory Rate 14 13 17 Blood Pressure 92/53 L 96/59 L 142/96 H Blood Pressure [Right Arm] Blood Pressure Mean 61 67 106 Blood Pressure Mean [Right Arm] Blood Pressure Source Blood Pressure Position 02 Sat by Pulse Oximetry 96 98 98 Oxygen Delivery Method Room Air Room Air Room Air 07/14/24 02:02 Temperature 98.1 F Temperature Source Tympanic Pulse Rate 70 Pulse Rate [Left] Respiratory Rate 16 Blood Pressure 117/79 Blood Pressure [Right Arm] Blood Pressure Mean Blood Pressure Mean [Right Arm] Blood Pressure Source Automatic Cuff Blood Pressure Position Sitting 02 Sat by Pulse Oximetry Oxygen Delivery Method Room Air Lab Data Lab results reviewed: Yes I reviewed the patient's lab results. Lab Results 07/13/24 22:31: WBC 9.5, RBC 5.10, Hgb 11.5 L, Hct 37.1, MCV 72.6 L, MCH 22.6 L, MCHC 31.2 L, RDW 18.2 H, Plt Count 358, MPV 7.6, Neut % (Auto) 53.9, Lymph % (Auto) 33.2, [place] % (Auto) 7.3, Eos % (Auto) 4.5, Baso % (Auto) 1.1, Neut # (Auto) 5.1, Lymph # (Auto) 3.2, [place] # (Auto) 0.7, Eos # (Auto) 0.4, Baso # (Auto) 0.1, Sodium 139, Potassium 4.2, Chloride 102, Carbon Dioxide 30, Anion Gap 11.2, BUN 12, Creatinine 0.80, Estimated Creat Clear 88, Estimated GFR 79, Est GFR ( Amer) 96, Glucose 109 H, Calcium 9.4, Phosphorus 4.3, Magnesium 2.0, Total Bilirubin 0.3, AST 33, ALT 19, Alkaline Phosphatase 153 H, Troponin I < 0.01, Total Protein 8.0, Albumin 4.5, Globulin 3.5 H, Albumin/Globulin Ratio 1.3, Lipase 248 11/27/24 23:16: SARS-CoV-2 (PCR) Not detected, Influenza A Untype (PCR) Not detected, Influenza Type B (PCR) Not detected 07/14/24 01:20: Troponin I < 0.01 07/13/24 22:31 07/13/24 22:31 Orders (Tests/Meds): ED MEDICATIONS Discontinued Medications Generic Name Dose Route Start Last Admin Trade Name Freq PRN Reason Stop Dose Admin Acetaminophen 1,000 mg 07/13/24 23:09 07/13/24 23:20 Acetaminophen 1,000mg/100ml Vial IV 07/13/24 23:10 1,000 mg ONCE ONE Administration Belladonna Alkaloids 60 ml 07/14/24 01:11 07/14/24 01:17 Belladonna Alkaloids 60 Ml Ml PO 07/14/24 01:12 60 ml ONCE ONE Administration Sodium Chloride 1,000 mls @ 999 mls/hr 07/13/24 23:15 07/13/24 23:20 Sod Chlor 0.9% 1000ml Bag IV 07/14/24 00:15 999 mls/hr .Q1H1M CLARISA Administration Magnesium Sulfate 2 gm in 50 mls @ 50 mls/hr 07/13/24 23:13 07/13/24 23:20 Magnesium Sulfate 2gm/50ml Premix IV 07/14/24 00:12 50 mls/hr ONCE ONE Administration Iopamidol 70 ml 07/13/24 23:50 07/13/24 23:51 Iopamidol-370 (76%);100ml Bottle IV 07/13/24 23:51 70 ml ONCE ONE Administration Prochlorperazine Edisylate 10 mg 07/13/24 23:09 07/13/24 23:20 Prochlorperazine 10mg/2ml Vial IV 07/13/24 23:10 10 mg ONCE ONE Administration Promethazine HCl 25 mg 07/14/24 01:38 07/14/24 01:39 Promethazine Hcl 25mg/Ml 1ml Vial IV 07/14/24 01:39 25 mg ONCE ONE Administration Sodium Chloride 50 ml 07/13/24 23:50 07/13/24 23:51 0.9 % Sodium Chloride 50 Ml Vial IV 07/13/24 23:51 50 ml ONCE ONE Administration Sodium Chloride 10 ml 07/13/24 23:50 07/13/24 23:51 Sodium Chloride 0.9% 10ml Syr (Rad Only) IV 08/12/24 23:49 10 ml NEEDED PRN Administration Maintain IV Site Sodium Chloride 25 ml 07/14/24 01:38 07/14/24 01:40 Sodium Chloride 0.9% 25ml Bag IV 07/14/24 01:39 25 ml ONCE ONE Administration ORDERS Category Date Time Status CT angio chest PE protocol Stat Cat Scan 07/13/24 23:09 Completed CBC w/Auto Diff [Complete Blood Count Auto Diff] Stat Lab 07/13/24 22:31 Completed CMP [Comprehensive Metabolic Panel] Stat Lab 07/13/24 22:31 Completed Lipase Stat Lab 07/13/24 22:31 Completed Magnesium Stat Lab 07/13/24 22:31 Completed PHOS [Phosphorous] Stat Lab 07/13/24 22:31 Completed Rapid PCR Covid and Flu A/B Stat Lab 07/13/24 23:16 Completed Troponin I Q3H Lab 07/13/24 22:31 Completed Troponin I Q3H Lab 07/14/24 01:20 Completed ECG Data Tracing #1: I reviewed this ECG and interpreted as documented below: Sinus rhythm, ventricular rate of 72, RSR prime noted, no concerning ST or T wave changes, no evidence of arrhythmia ECG initial impression date: 07/13/24 ECG initial impression time: 22:27 Tracing #2: I reviewed this ECG and interpreted as documented below: Sinus rhythm, rate of 70, no ischemic changes, stable EKG from prior ECG initial impression date: 07/13/24 ECG initial impression time: 23:36 HEART Score History (anamnesis): Slightly suspicious ECG: Normal Age: <45 years Risk factors: 1-2 risk factors Troponin: </= normal limit HEART Score: 1 Medical Decision Narrative: 39-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 History was obtained via interactive discussion with patient, family, chart review. On arrival, patient is [afebrile, hemodynamically stable, satting appropriately, alert, oriented x4, GCS 15], moving all extremities spontaneously. Full physical exam performed and significant for no significant physical exam abnormalities. Differential includes but is not limited to PE, reflux, musculoskeletal chest pain, pneumonia, ACS, tension headache, migraine headache, dehydration, electrolyte derangement. Patient reports she is unable to take NSAIDs due to stomach ulcer and was not given aspirin. Patient was given 1 L IV fluids, GI cocktail, 2 g mag, IV Tylenol Toradol Compazine and Phenergan for symptomatic management and correction of underlying abnormalities. Workup initiated including CBC CMP lipase mag Phos troponin mag EKG CTA chest. On re-evaluation, patient reports improvement in chest pain and headache. Laboratory workup independently interpreted by me and significant for stable anemia, no significant leukocytosis, no significant electrolyte derangement, normal renal function, negative troponin x 2. Imaging independently interpreted by me and significant for no evidence of PE or aortic pathology, no pneumonia. See radiology read for full review of final results. Given patient history, exam and workup, patient's presentation most likely represents reflux and tension headache. No evidence of emergent pathology at this time. Patient was discharged in stable condition with return precautions.. Procedures Risk/Benefits of Procedure(s) Were Explained: Yes Critical Care Critical Care Time Critical Care Time: No
[2024-07-13 23:15] VITALS: BP 138/95; RESP 14; O2SAT 98
[2024-07-13 23:20] LABS: Coronavirus 19, PCR Not Detected (NotDetected); Influenza A, PCR Not Detected (NotDetected); Influenza B, PCR Not Detected (NotDetected)
[2024-07-13 23:20] LABS: Basophils # 0.1 K/mm3 (0-0.2); Basophils % 1.1 % (0.1-2.0); Eosinophils # 0.4 K/mm3 (0.0-0.4); Eosinophils % 4.5 % (0.1-12.0); Hematocrit 37.1 % (37.0-47.0); Hemoglobin 11.5 g/dL (12.2-16.2); Lymphocytes # 3.2 K/mm3 (0.7-4.5); Lymphocytes % 33.2 % (10-50); Mean Corpuscular HGB Conc 31.2 g/dL (31.8-35.4); Mean Corpuscular Hemoglobin 22.6 pg (27.0-31.2); Mean Corpuscular Volume 72.6 fl (81-99); Mean Platelet Volume 7.6 fl (7.4-10.4); Monocytes # 0.7 K/mm3 (0.1-1.0); Monocytes % 7.3 % (1.7-9.3); Neutrophils # 5.1 K/mm3 (1.8-7.8); Neutrophils % 53.9 % (37.0-80.0); Platelet Count 358 K/mm3 (142-424); Red Cell Distribution Width 18.2 % (11.5-17.5); White Blood Count 9.5 K/mm3 (4.8-10.8)
[2024-07-13] MEDS: 0.9 % SODIUM CHLORIDE 1000ML 1,000 ML 999 ML IV (23:20)
[2024-07-13] MEDS: MAGNESIUM SULFATE IN WATER 2 GM/50 ML PIGGYBACK IV (23:20)
[2024-07-13] MEDS: PROCHLORPERAZINE 10MG/2ML VIAL 10 MG IV (23:20)
[2024-07-13] MEDS: ACETAMINOPHEN 1,000MG/100ML VIAL 1000 MG IV (23:20)
[2024-07-13 23:22] LABS: Albumin Level 4.5 g/dl (3.5-5.0); Chloride 102 mmol/L (98-107)
[2024-07-13 23:23] LABS: Potassium 4.2 mmoL/L (3.5-5.1); Sodium 139 mmol/L (136-145)
[2024-07-13 23:25] LABS: Alanine Aminotransferase 19 U/L (12-78); Albumin/Globulin Ratio 1.3 (1.1-1.8); Alkaline Phosphatase 153 U/L (38-126); Anion Gap 11.2 mEq/L (5-15); Aspartate Amino Transferase 33 U/L (14-36); Bilirubin,Total 0.3 mg/dl (0.2-1.3); Blood Urea Nitrogen 12 mg/dl (7-17); Carbon Dioxide 30 mmol/L (22.0-30.0); Creatinine Clearance Estimated 88 mL/min (50-200); Estimated Glomerular Filt Rate 79 ml/min (>60); GFR (African American) 96 ML/MIN (>60); Globulin 3.5 g/dL (1.3-3.2); Phosphorous 4.3 mg/dl (2.5-4.5)
[2024-07-13 23:26] LABS: Calcium 9.4 mg/dl (8.4-10.2); Glucose 109 mg/dl (74-100); Lipase 248 U/L (23-300)
[2024-07-13 23:31] VITALS: BP 115/77; PULSE 75; RESP 18; O2SAT 98
--- NOTE | 2024-07-13 23:36 | ECG_ITS ---
APPROVED REPORT Exam: Resting ECG HR:70 bpm ECG Measurements Heart Rate 70 AXES IL 152 P 64 QRSd 92 QRS 50 QT 403 T 46 QTc 423 Conclusion SINUS RHYTHM POSSIBLE LEFT ATRIAL ENLARGEMENT [-0.1mV P-WAVE IN V1/V2] POSSIBLE RIGHT VENTRICULAR CONDUCTION DELAY [RSR (QR) IN V1/V2] BORDERLINE ECG UNCONFIRMED REPORT Electronically signed by : HARESH SANDHU, 07/14/2024 06:27:52
[2024-07-13 23:39] LABS: Troponin I < 0.01 ng/ml (0.00-0.034)
[2024-07-13] MEDS: SODIUM CHLORIDE 0.9% 10ML SYR (RAD ONLY) 10 ML IV (23:51)
[2024-07-13] MEDS: IOPAMIDOL-370 (76%);100ML BOTTLE 70 ML IV (23:51)
[2024-07-13] MEDS: 0.9 % SODIUM CHLORIDE 50 ML VIAL IV (23:51)
--- NOTE | 2024-07-13 23:54 | PC.NURSE ---
patient back from radiology
[2024-07-14] VITALS (8 sets, daily range): BP systolic 92–142; BP diastolic 49–96; PULSE 62–70; RESP 13–17; TEMP 36.7; O2SAT 95–98
[2024-07-14] MEDS: BELLADONNA ALKALOIDS 60 ML ML PO (01:17)
[2024-07-14] MEDS: PROMETHAZINE HCL 25MG/ML 1ML VIAL 25 MG IV (01:39)
[2024-07-14] MEDS: SODIUM CHLORIDE 0.9% 25ML BAG 25 ML IV (01:40)
[2024-07-14 01:47] LABS: Troponin I < 0.01 ng/ml (0.00-0.034)
== END 2024-07-14 02:13 | disposition home or self-care (01) ==
PROVIDERS: Emergency Provider Emergency Medicine
DX: R07.9 Chest pain, unspecified (principal); R11.0 Nausea; R10.9 Unspecified abdominal pain; R51.9 Headache, unspecified
CPT/HCPCS: 71275; 80053; 83690; 83735; 84100; 84484; 85025; 87636; 93005; 96361; 96365; 96374; 96375; 99285; J0131; J0780; J2550; J3475; J7030; Q9967

== ENCOUNTER 2024-07-18 13:52 | Outpatient (CLI) | payer OTHER, SELFPAY ==
[2024-07-18 15:38] LABS: Alanine Aminotransferase 25 U/L (12-78); Albumin Level 3.9 g/dl (3.5-5.0); Alkaline Phosphatase 117 U/L (38-126); Aspartate Amino Transferase 47 U/L (14-36); Bilirubin,Direct 0.2 mg/dl (0.0-0.4); Bilirubin,Total 0.2 mg/dl (0.2-1.3); Chol/HDL Ratio 1.8 (1-3.5); Cholesterol 177 mg/dl (140-200); HDL Cholesterol 96 mg/dl (40-60); Total Protein,Serum 6.8 g/dl (6.3-8.2); Triglycerides 73 mg/dl (30-150); VLDL Cholesterol 15 mg/dL (0-40)
[2024-07-18 15:50] LABS: Direct LDL Cholesterol 80.57 mg/dL (100-129)
[2024-07-18 15:59] LABS: Free Thyroxine Index 2.3 ug/dL (5.93-13.13); T4 (Thyroxine) 7.9 ug/dl (5.53-11.0); Triiodothryronine (T3) Uptake 29 % (23.5-40.5)
[2024-07-18 16:12] LABS: Thyroid Stimulating Hormone 1.59 uIU/mL (0.465-4.68)
== END 2024-07-18 23:59 | disposition home or self-care (01) ==
LOC: LAB 13:53
PROVIDERS: Nurse Practitioner; PCP Internal Medicine Adolescent Medicine; Visit Provider Internal Medicine
DX: R06.02 Shortness of breath (principal); R55 Syncope and collapse; R07.9 Chest pain, unspecified; R00.0 Tachycardia, unspecified; R00.2 Palpitations
CPT/HCPCS: 36415; 80061; 80076; 84436; 84443; 84479; 93270

== ENCOUNTER 2024-08-02 12:40 | Emergency (ER) | payer OTHER, SELFPAY ==
[2024-08-02] VITALS (8 sets, daily range): BP systolic 100–146; BP diastolic 58–102; PULSE 75–102; RESP 18; TEMP 37.1; O2SAT 97–100; BMI 19.8
--- NOTE | 2024-08-02 12:38 | ECG_ITS ---
APPROVED REPORT Exam: Resting ECG HR:94 bpm ECG Measurements Heart Rate 94 AXES RI 144 P 73 QRSd 89 QRS 74 QT 329 T 61 QTc 380 Conclusion SINUS RHYTHM WITH SINUS ARRHYTHMIA POSSIBLE LEFT ATRIAL ENLARGEMENT [-0.1mV P-WAVE IN V1/V2] POSSIBLE RIGHT VENTRICULAR CONDUCTION DELAY [RSR (QR) IN V1/V2] Electronically signed by : WALTER BRADFORD, 08/02/2024 15:31:05
--- NOTE | 2024-08-02 12:51 | PC.NURSE ---
ROSELYN HERMOSILLO AT BEDSIDE
--- NOTE | 2024-08-02 13:05 | ED_ITS ---
<Statement entered by Karen Walter DO - 08/02/24 15:16> I was consulted by the TRISTEN, and we discussed the complexity of the problems being addressed. I approved the treatment and management plan for this patient's care in the emergency department, thus performing a substantive portion of the medical decision making. Karen Walter DO Discharge Plan Disposition Patient Disposition: Home, Self-Care Condition: Good Prescriptions Prescriptions: No Action lamotrigine 150 mg tablet 150 mg PO BID Patient Comments: TAKE ONE TABLET BY MOUTH TWICE DAILY lamotrigine 200 mg tablet 200 mg PO BID Patient Comments: TAKE ONE TABLET BY MOUTH TWICE DAILY hydroxyzine pamoate 50 mg capsule 50 mg PO Q4H PRN Patient Comments: TAKE ONE CAPSULE BY MOUTH EVERY 4 HOURS NEEDED quetiapine 100 mg tablet 100 mg PO HS Patient Comments: TAKE ONE TABLET BY MOUTH AT BEDTIME buspirone 15 mg tablet 15 mg PO TID Patient Comments: TAKE ONE TABLET BY MOUTH THREE TIMES DAILY alprazolam 0.5 mg tablet 0.5 mg PO TIDP PRN (Reason: Anxiety) Qty: 30 Patient Comments: TAKE 1 TABLET BY MOUTH EVERY 8 HOURS NEEDED FOR ANXIETY MAY CAUSEDROWSINESS pregabalin 200 mg capsule 200 mg PO BID promethazine 25 mg tablet 25 mg PO TID PRN (Reason: nausea and vomiting) Qty: 20 0RF Referrals Follow up/Referrals: Juan Pablo Maddox II, MD [Staff Physician] - See instructions Arcelia Valencia APRN [Nurse Practitioner] - See instructions Activity Restrictions/Add. Instructions Additional Instructions/Restrictions: As we have discussed I have referred you to Dr. Maddox of gastroenterology for further evaluation and care. Please call tomorrow to make your appointment. You likely would benefit from upper endoscopy and other studies. I have also referred you to behavioral health for better management of your anxiety disorder. Please call tomorrow to make an appointment. Follow-up with cardiology as already scheduled. Follow-up with your bariatric surgeon as scheduled. Return to the ER for any worsening signs or symptoms as needed. Clinical Impressions Clinical Impression: Chest pain, non-cardiac, Chronic upper abdominal pain, Generalized anxiety disorder Print Language Print Language: Kyrgyz Discharge ED Provider: Ernesto Bolton General Adult HPI <GIA Mcneil - Last Filed: 12/17/24 20:02> General Chief complaint: Arrhythmia/Palpitations Stated complaint: CP Time Seen by Provider: 08/02/24 12:43 Mode of Arrival: Ambulatory Source of Information: Patient Limitations: No Limitations Description of Symptoms (Recalled from ER Triage Doc. by RN): PT C/O ONGOING CHEST AND ABDOMINAL PAIN FOR MONTHS PT REPORTS LIVER PAIN, TORSO PAIN AND PALPITATIONS RECENTLY HAD HEART MONITOR, SEVERAL RECENT VISITS TO , [facility], [facility] AND HERE FOR SIMILAR ISSUES. History of Present Illness HPI narrative: Patient presents for thoracicoabdominal pain. Patient has had a complicated medical history that started status post Keena-en-Y gastric bypass in 2020. She has had multiple complications since including anastomotic ulcer and most recently diagnosed with heart failure and is followed by cardiology here. She recently wore a heart monitor however the results of that are not back. Patient states that she began having this epigastric/chest/upper abdominal pain that is now involving my liver . Patient denies vomiting fever chills hemoptysis hematochezia melena nausea vomiting but has daily loose stool. Related Data Home Medications ?Medication ?Instructions ?Recorded ?Confirmed alprazolam 0.5 mg tablet 0.5 mg PO TIDP PRN Anxiety #30 tabs 01/12/19 07/18/24 pregabalin 200 mg capsule 200 mg PO BID RLS 02/05/21 07/18/24 buspirone 15 mg tablet 15 mg PO TID 07/18/24 07/18/24 hydroxyzine pamoate 50 mg capsule 50 mg PO Q4H PRN 07/18/24 07/18/24 lamotrigine 150 mg tablet 150 mg PO BID 07/18/24 07/18/24 lamotrigine 200 mg tablet 200 mg PO BID 07/18/24 07/18/24 quetiapine 100 mg tablet 100 mg PO HS 07/18/24 07/18/24 Previous Rx's ?Medication ?Instructions ?Recorded promethazine 25 mg tablet 25 mg PO TID PRN nausea and 07/01/24 vomiting #20 tabs Allergies Allergy/AdvReac Type Severity Reaction Status Date / Time hydromorphone (From Dilaudid) Allergy Intermediate Verified 07/18/24 13:26 NSAIDS (Non-Steroidal Allergy Unknown Verified 07/18/24 13:26 Anti-Inflamma lactose AdvReac Mild Nausea Verified 07/18/24 13:26 cilantro Allergy Severe throat and Uncoded 07/18/24 13:26 tongue swells, hives on face [facility] <GIA Mcneil - Last Filed: 08/02/24 20:02> [facility] Disclaimer: The information contained in this section may have been updated after the patient was seen, as this information can be updated by other users. Medical History (Updated 08/02/24 @ 16:39 by GIA Mcneil) Tachycardia Shortness of breath Syncope LEONORA (obstructive sleep apnea) Elevated left ventricular end-diastolic pressure (LVEDP) Edema History of left heart catheterization SVT (supraventricular tachycardia) Pulmonary embolism Osteoarthritis Migraine HTN (hypertension) HLD (hyperlipidemia) Heart murmur GERD (gastroesophageal reflux disease) DVT (deep venous thrombosis) Afib Asthma Arrhythmia Anxiety History of pulmonary embolism Surgical History History of bariatric surgery History of exploratory laparotomy History of cholecystectomy History of lumpectomy of left breast H/O knee surgery History of esophageal surgery H/O foot surgery Previous back surgery Family History Other Family history of cancer Family history of hypertension Social History Smoking Status: Current every day smoker tobacco type: cigarettes packs per day: 4 second hand exposure: No alcohol intake: never substance use type: marijuana current occupational status: other Travel in the last 8 weeks: None household members: spouse housing: house number of children: 0 current occupational exposures/hazards: No caffeine: No Have you lived/traveled outside [place] in past 30 days?: No Contact w/someone who lives/traveled outside US past 30 days?: No Exposure to someone with infectious disease in past 14 days?: No Do you have a fever (greater than 100.4 F or 38 C)?: No Have you tested positive for COVID-19: No Exposed to someone with COVID-19 in past 14 days?: No Do you have a sore throat?: No Do you have a cough?: No Do you have any weakness?: No Do you have any diarrhea?: No Are you experiencing any unusual bleeding?: No Do you have any muscle aches/pain?: No Do you have any abdominal pain?: No Are you experiencing loss of taste or smell?: No Other Medical History Have you received the Flu Vaccine for this season: No Have you received the Pneumonia Vaccine: No <GIA Mcneil - Last Filed: 08/02/24 20:02> ROS Obtained: Yes Systems reviewed as appropriate & no additional complaints except as documented Physical Exam <GIA Mcneil - Last Filed: 08/02/24 20:02> General General appearance: alert and anxious Respiratory Respiratory exam: Present normal lung sounds bilaterally Cardiovascular Cardiovascular exam: Present regular rate Neurological Exam Neurological exam: Present alert and oriented X3 Medical Decision Making <GIA Mcneil - Last Filed: 08/02/24 20:02> Medical Records Medical records reviewed: Yes I reviewed the patient's medical records. Screening: Per USPSTF and CDC recommendations, given the prevalence of disease in our region, it is our hospital?s policy to screen for HIV and viral Hepatitis for all patients aged 18 and over and those with ongoing risk factors. Dinesh Inquiry Pt receiving controlled substance: No Vital Signs: 08/02/24 12:40 08/02/24 13:00 08/02/24 13:30 Temperature 98.8 F Temperature Source Oral Pulse Rate 96 H 83 Pulse Rate [Apical] 102 H Respiratory Rate 18 Blood Pressure 143/93 H 146/102 H Blood Pressure [Right Arm] 134/98 H Blood Pressure Mean [Right Arm] 110 Blood Pressure Source Blood Pressure Source [Right Arm] Automatic Cuff Blood Pressure Position [Right Arm] Sitting 02 Sat by Pulse Oximetry 100 100 99 Oxygen Delivery Method Room Air Room Air Room Air 08/02/24 14:01 08/02/24 14:30 08/02/24 15:00 Temperature Temperature Source Pulse Rate 75 96 H 98 H Pulse Rate [Apical] Respiratory Rate Blood Pressure 124/83 119/87 116/77 Blood Pressure [Right Arm] Blood Pressure Mean [Right Arm] Blood Pressure Source Blood Pressure Source [Right Arm] Blood Pressure Position [Right Arm] 02 Sat by Pulse Oximetry 100 98 97 Oxygen Delivery Method Room Air Room Air Room Air 08/02/24 15:30 08/02/24 16:56 Temperature 98.8 F Temperature Source Oral Pulse Rate 75 75 Pulse Rate [Apical] Respiratory Rate 18 Blood Pressure 100/58 L 131/82 Blood Pressure [Right Arm] Blood Pressure Mean [Right Arm] Blood Pressure Source Automatic Cuff Blood Pressure Source [Right Arm] Blood Pressure Position [Right Arm] 02 Sat by Pulse Oximetry 97 Oxygen Delivery Method Room Air Room Air Lab Data Lab results reviewed: Yes I reviewed the patient's lab results. Lab Results 08/02/24 12:38: WBC 9.1, RBC 5.34, Hgb 12.1 L, Hct 38.7, MCV 72.4 L, MCH 22.7 L, MCHC 31.4 L, RDW 19.2 H, Plt Count 409, MPV 7.7, Neut % (Auto) 69.5, Lymph % (Auto) 20.3, Bradford % (Auto) 6.5, Eos % (Auto) 2.7, Baso % (Auto) 1.0, Neut # (Auto) 6.3, Lymph # (Auto) 1.9, Bradford # (Auto) 0.6, Eos # (Auto) 0.3, Baso # (Auto) 0.1, Sodium 141, Potassium 4.1, Chloride 105, Carbon Dioxide 28, Anion Gap 12.1, BUN 13, Creatinine 0.80, Estimated Creat Clear 90, Estimated GFR 79, Est GFR ( Amer) 96, Glucose 130 H, Calcium 9.0, Phosphorus 4.1, Magnesium 2.0, Total Bilirubin 0.3, AST 36, ALT 18, Alkaline Phosphatase 121, Troponin I < 0.01, Total Protein 7.9, Albumin 4.3, Globulin 3.6 H, Albumin/Globulin Ratio 1.2 08/02/24 15:50: Lactate 1.0, Troponin I < 0.01 08/02/24 12:38 08/02/24 12:38 Orders (Tests/Meds): ED MEDICATIONS Discontinued Medications Generic Name Dose Route Start Last Admin Trade Name Freq PRN Reason Stop Dose Admin Acetaminophen 1,000 mg 08/02/24 13:09 08/02/24 13:21 Acetaminophen 1,000mg/100ml Vial IV 08/02/24 13:10 1,000 mg ONCE ONE Administration Belladonna Alkaloids 60 ml 08/02/24 13:09 08/02/24 13:21 Belladonna Alkaloids 60 Ml Ml PO 08/02/24 13:10 60 ml ONCE ONE Administration Droperidol 2.5 mg 08/02/24 14:31 08/02/24 14:47 Droperidol 5mg/2ml Vial IV 08/02/24 14:32 2.5 mg ONCE ONE Administration Sodium Chloride 1,000 mls @ 999 mls/hr 08/02/24 13:09 08/02/24 13:21 Sod Chlor 0.9% 1000ml Bag IV 08/02/24 14:09 999 mls/hr .Q1H1M ONE Administration Ondansetron HCl 4 mg 08/02/24 13:09 08/02/24 13:21 Ondansetron 4mg/2ml Vial IV 08/02/24 13:10 4 mg ONCE ONE Administration Sodium Chloride 10 ml 08/02/24 12:45 Sodium Chloride 0.9% 10ml Flush Syringe IV 09/01/24 12:44 NEEDED PRN Maintain IV Site ORDERS Category Date Time Status CBC w/Auto Diff [Complete Blood Count Auto Diff] Stat Lab 08/02/24 12:38 Completed CMP [Comprehensive Metabolic Panel] Stat Lab 08/02/24 12:38 Completed Lactic Acid Stat Lab 08/02/24 15:50 Completed Magnesium Stat Lab 08/02/24 12:38 Completed Phosphorous Stat Lab 08/02/24 12:38 Completed Thiamine level [Vitamin B1] Stat Lab 08/02/24 16:13 Received Trop I [Troponin I] Stat Lab 08/02/24 12:38 Completed Troponin I Q3H Lab 08/02/24 15:50 Completed HEART Score History (anamnesis): Slightly suspicious ECG: Normal Age: 45-65 years Risk factors: 3 or more risk factors Troponin: </= normal limit HEART Score: 3 Medical Decision Narrative: In summary patient is a 39-year-old female who presents to the emergency department for evaluation of thoracicoabdominal pain. Patient is hemodynamically stable upon arrival, afebrile. Physical exam is remarkable for a well-nourished well-developed 39-year-old female who does not appear to be in acute distress however appears to be extraordinarily anxious. She is clutching her upper abdomen but states that she is having chest pain. Breath sounds are clear and equal bilaterally to the bases without adventitious sounds. There is tenderness to palpation in the upper abdomen but nonfocal he with no rebound or guarding or rigidity normal bowel sounds. No palpable masses.. Differential diagnosis includes ACS versus gastritis versus ulcer pain versus spasm of the esophagus or stomach etc. Initial workup will be conducted with hematologic labs. Initial interventions include Tylenol crystalloid bolus and GI cocktail. Initial workup reviewed by me and reassuringly all of her laboratory investigations are within normal limits including troponins negative x 2 and all of her electrolytes as well as her albumin and protein. Upon repeat evaluation patient reported minimal improvement after GI cocktail initial intervention. Given this the patient was placed in observation status at 1430. Medical necessity for observational status is serial troponins and observation after droperidol. The patient was provided serial reevaluations continuous cardiac monitoring and pulse oximetry while awaiting results. Again showed 2 negative troponins. However patient had complete resolution of her symptoms after administration of droperidol suggesting that this is esophageal spasm along with possibly poorly manage general anxiety disorder. Patient currently is only on Xanax for anxiety management. Given this I believe patient will benefit from evaluation by behavioral health for better anxiety control and given her Keena-en-Y gastric bypass she may have difficulty metabolizing or breaking down oral medications under current regimen and may require different dosing strategies. Additionally patient will be referred to gastroenterology Dr. Maddox for further GI investigation including endoscopy potentially.. Total time in observation was 3 hours. <Karen Walter, DO - Last Filed: 08/02/24 13:29> Vital Signs: 08/02/24 12:40 08/02/24 13:00 08/02/24 13:30 Temperature 98.8 F Temperature Source Oral Pulse Rate 96 H 83 Pulse Rate [Apical] 102 H Respiratory Rate 18 Blood Pressure 143/93 H 146/102 H Blood Pressure [Right Arm] 134/98 H Blood Pressure Mean [Right Arm] 110 Blood Pressure Source Blood Pressure Source [Right Arm] Automatic Cuff Blood Pressure Position [Right Arm] Sitting 02 Sat by Pulse Oximetry 100 100 99 Oxygen Delivery Method Room Air Room Air Room Air 08/02/24 14:01 08/02/24 14:30 08/02/24 15:00 Temperature Temperature Source Pulse Rate 75 96 H 98 H Pulse Rate [Apical] Respiratory Rate Blood Pressure 124/83 119/87 116/77 Blood Pressure [Right Arm] Blood Pressure Mean [Right Arm] Blood Pressure Source Blood Pressure Source [Right Arm] Blood Pressure Position [Right Arm] 02 Sat by Pulse Oximetry 100 98 97 Oxygen Delivery Method Room Air Room Air Room Air 08/02/24 15:30 08/02/24 16:56 Temperature 98.8 F Temperature Source Oral Pulse Rate 75 75 Pulse Rate [Apical] Respiratory Rate 18 Blood Pressure 100/58 L 131/82 Blood Pressure [Right Arm] Blood Pressure Mean [Right Arm] Blood Pressure Source Automatic Cuff Blood Pressure Source [Right Arm] Blood Pressure Position [Right Arm] 02 Sat by Pulse Oximetry 97 Oxygen Delivery Method Room Air Room Air Lab Data Lab Results 08/02/24 12:38: WBC 9.1, RBC 5.34, Hgb 12.1 L, Hct 38.7, MCV 72.4 L, MCH 22.7 L, MCHC 31.4 L, RDW 19.2 H, Plt Count 409, MPV 7.7, Neut % (Auto) 69.5, Lymph % (Auto) 20.3, Bradford % (Auto) 6.5, Eos % (Auto) 2.7, Baso % (Auto) 1.0, Neut # (Auto) 6.3, Lymph # (Auto) 1.9, Bradford # (Auto) 0.6, Eos # (Auto) 0.3, Baso # (Auto) 0.1, Sodium 141, Potassium 4.1, Chloride 105, Carbon Dioxide 28, Anion Gap 12.1, BUN 13, Creatinine 0.80, Estimated Creat Clear 90, Estimated GFR 79, Est GFR ( Amer) 96, Glucose 130 H, Calcium 9.0, Phosphorus 4.1, Magnesium 2.0, Total Bilirubin 0.3, AST 36, ALT 18, Alkaline Phosphatase 121, Troponin I < 0.01, Total Protein 7.9, Albumin 4.3, Globulin 3.6 H, Albumin/Globulin Ratio 1.2 08/02/24 15:50: Lactate 1.0, Troponin I < 0.01 Orders (Tests/Meds): ED MEDICATIONS Discontinued Medications Generic Name Dose Route Start Last Admin Trade Name Freq PRN Reason Stop Dose Admin Acetaminophen 1,000 mg 08/02/24 13:09 08/02/24 13:21 Acetaminophen 1,000mg/100ml Vial IV 08/02/24 13:10 1,000 mg ONCE ONE Administration Belladonna Alkaloids 60 ml 08/02/24 13:09 08/02/24 13:21 Belladonna Alkaloids 60 Ml Ml PO 08/02/24 13:10 60 ml ONCE ONE Administration Droperidol 2.5 mg 08/02/24 14:31 08/02/24 14:47 Droperidol 5mg/2ml Vial IV 08/02/24 14:32 2.5 mg ONCE ONE Administration Sodium Chloride 1,000 mls @ 999 mls/hr 08/02/24 13:09 08/02/24 13:21 Sod Chlor 0.9% 1000ml Bag IV 08/02/24 14:09 999 mls/hr .Q1H1M ONE Administration Ondansetron HCl 4 mg 08/02/24 13:09 08/02/24 13:21 Ondansetron 4mg/2ml Vial IV 08/02/24 13:10 4 mg ONCE ONE Administration Sodium Chloride 10 ml 08/02/24 12:45 Sodium Chloride 0.9% 10ml Flush Syringe IV 09/01/24 12:44 NEEDED PRN Maintain IV Site ORDERS Category Date Time Status CBC w/Auto Diff [Complete Blood Count Auto Diff] Stat Lab 08/02/24 12:38 Completed CMP [Comprehensive Metabolic Panel] Stat Lab 08/02/24 12:38 Completed Lactic Acid Stat Lab 08/02/24 15:50 Completed Magnesium Stat Lab 08/02/24 12:38 Completed Phosphorous Stat Lab 08/02/24 12:38 Completed Thiamine level [Vitamin B1] Stat Lab 08/02/24 16:13 Received Trop I [Troponin I] Stat Lab 08/02/24 12:38 Completed Troponin I Q3H Lab 08/02/24 15:50 Completed ECG Data Tracing #1: I reviewed this ECG and interpreted as documented below: Normal sinus rhythm with sinus arrhythmia. Ventricular rate of [address] changes concerning for ischemia. Right ventricular conduction delay. No changes from prior EKG. ECG initial impression date: 08/02/24 ECG initial impression time: 12:39 Critical Care <GIA Mcneil - Last Filed: 08/02/24 20:02> Critical Care Time Critical Care Time: No
[2024-08-02] MEDS: ACETAMINOPHEN 1,000MG/100ML VIAL 1000 MG IV (13:21)
[2024-08-02] MEDS: ONDANSETRON 4MG/2ML VIAL 4 MG IV (13:21)
[2024-08-02] MEDS: 0.9 % SODIUM CHLORIDE 1000ML 1,000 ML 999 ML IV (13:21)
[2024-08-02] MEDS: BELLADONNA ALKALOIDS 60 ML ML PO (13:21)
[2024-08-02 13:23] LABS: Basophils # 0.1 K/mm3 (0-0.2); Eosinophils # 0.3 K/mm3 (0.0-0.4); Eosinophils % 2.7 % (0.1-12.0); Hematocrit 38.7 % (37.0-47.0); Hemoglobin 12.1 g/dL (12.2-16.2); Lymphocytes # 1.9 K/mm3 (0.7-4.5); Lymphocytes % 20.3 % (10-50); Mean Corpuscular HGB Conc 31.4 g/dL (31.8-35.4); Mean Corpuscular Hemoglobin 22.7 pg (27.0-31.2); Mean Corpuscular Volume 72.4 fl (81-99); Mean Platelet Volume 7.7 fl (7.4-10.4); Monocytes # 0.6 K/mm3 (0.1-1.0); Monocytes % 6.5 % (1.7-9.3); Neutrophils # 6.3 K/mm3 (1.8-7.8); Neutrophils % 69.5 % (37.0-80.0); Platelet Count 409 K/mm3 (142-424); Red Blood Count 5.34 M/mm3 (4.20-5.40); Red Cell Distribution Width 19.2 % (11.5-17.5); White Blood Count 9.1 K/mm3 (4.8-10.8)
[2024-08-02 13:24] LABS: Phosphorous 4.1 mg/dl (2.5-4.5)
[2024-08-02 13:25] LABS: Alanine Aminotransferase 18 U/L (12-78); Albumin Level 4.3 g/dl (3.5-5.0); Albumin/Globulin Ratio 1.2 (1.1-1.8); Alkaline Phosphatase 121 U/L (38-126); Anion Gap 12.1 mEq/L (5-15); Aspartate Amino Transferase 36 U/L (14-36); Bilirubin,Total 0.3 mg/dl (0.2-1.3); Blood Urea Nitrogen 13 mg/dl (7-17); Carbon Dioxide 28 mmol/L (22.0-30.0); Chloride 105 mmol/L (98-107); Creatinine Clearance Estimated 90 mL/min (50-200); Estimated Glomerular Filt Rate 79 ml/min (>60); GFR (African American) 96 ML/MIN (>60); Globulin 3.6 g/dL (1.3-3.2); Glucose 130 mg/dl (74-100); Potassium 4.1 mmoL/L (3.5-5.1); Sodium 141 mmol/L (136-145); Total Protein,Serum 7.9 g/dl (6.3-8.2)
[2024-08-02 13:40] LABS: Troponin I < 0.01 ng/ml (0.00-0.034)
[2024-08-02] MEDS: droPERidol 5MG/2ML VIAL 2.5 MG IV (14:47)
[2024-08-02 16:29] LABS: Troponin I < 0.01 ng/ml (0.00-0.034)
[2024-08-05 18:08] LABS: Vitamin B1 95.6 nmol/L (66.5-200.0)
== END 2024-08-02 16:57 | disposition home or self-care (01) ==
PROVIDERS: Physician Assistant; Emergency Provider Emergency Medicine
DX: R07.89 Other chest pain (principal); F41.1 Generalized anxiety disorder; R10.10 Upper abdominal pain, unspecified; R07.9 Chest pain, unspecified; R10.13 Epigastric pain; R00.2 Palpitations
CPT/HCPCS: 80053; 83605; 83735; 84100; 84425; 84484; 85025; 93005; 96361; 96374; 96375; 99283; J0131; J1790; J2405; J7030

== ENCOUNTER 2024-08-19 10:38 | Day surgery (SDC) | payer OTHER, SELFPAY ==
--- NOTE | 2024-08-19 11:03 | P.PCN_ITS ---
Procedure Date: 08/19/24 Time: 11:29 Anesthesiologist:: Karen Gracia APRN Complications:: None Pre-procedure Diagnosis:: Degenerative disc disease of lumbar spine with lumbar radiculopathy symptoms Post-procedure Diagnosis:: Same Indications for Procedure:: Patient is a pleasant 39-year-old female who presents today for intrathecal refill and reprogram. She rates her pain today a 4 out of 10. She denies any new trauma or injury. She does state that she has been having a little bit more pain that is waking her up in the middle the night. She is asking if we can go up on her pump. She is currently managed with morphine 2 mg/mL with a daily dose of 0.2398 mg/day she denies any side effects from this medication. She is prescribed alprazolam and pregabalin from outside providers. Her Dinesh has been reviewed and is appropriate. Physical Exam: General: Alert and oriented x3, no acute distress, pleasant and cooperative Lungs: Respirations even and unlabored, symmetrical chest expansion Eyes: PERRL Musculoskeletal: Flexion and extension of lumbar [spine] somewhat guarded s econdary to pain, [antalgic gait noted] Neurological: Speech clear, no gross sensory deficit Procedure Details:: Informed consent was obtained and the risk and benefits of the procedure were explained to the patient. The patient had noninvasive monitoring placed including noninvasive blood pressure cuff and pulse oximeter. Patient's pump was interrogated. The area over the pump was cleansed with chlorhexidine as a cleansing solution. In sterile fashion the pump was accessed with a 22-gauge needle. Approximately 8.4 mls of the pump solution was removed and discarded appropriately. The pump was then refilled with 20 mL's of morphine 20 mg/mL. The needle was withdrawn and a bandage was placed over the puncture site. The infusion rate was reprogrammed and increased 10% to morphine 0.2635 mg/day. The patient tolerated well with no complication. Plan and Disposition:: Patient tolerated her intrathecal refill and reprogram with no complications and was discharged neurologically intact. Patient will return to clinic on or before her next intrathecal refill date. We will see the patient back in the clinic at the next intrathecal refill. Patient has been instructed to contact the clinic with any concerns before the next appointment. Dr. Jung has reviewed this note and agrees with this plan of care. This note was dictated using voice recognition software and make contain errors or omissions. -- It Is medically necessary for this patient to continue to have their intrathecal pump refilled at regular intervals. This patient had an intrathecal pain pump implanted after meeting criteria of chronic intractable pain for greater than 3 months and failing conservative treatments. Patient has committed and been compliant to the treatment plan and all planned follow up care. Since implantation of the intrathecal pain pump, the patient has had decreased pain and been more functional. Oral medications have been reduced including intake of oral opioids. Patient continues to do well with intrathecal therapy with decrease in pain symptoms and increase in functional status. Stopping intrathecal medications can lead to life threatening withdrawal, seizures, cardiac arrest, severe pain, and possible . Pumps that are not refilled at regular intervals can be damages and cause and need for replacement. We continually titrate dose and concentration to optimize pain relief and function. We are limited in concentration for certain drugs to safely deliver medications through the pump and stay within the recommendations from the Polyanalges[employer] Consensus Committee Guidelines. Depending on dose and concentration these pumps may need to be refilled sooner than 3 months as we titrate. A UDS is needed to verify patient's compliance with our office pain contract. This is ordered based off specific treatments related to chronic pain with the potential to abuse certain medications.
[2024-08-19 11:20] VITALS: BP 119/80; PULSE 89; RESP 16; O2SAT 98
[2024-08-19 11:24] VITALS: BP 110/72; PULSE 91; RESP 18; O2SAT 97
[2024-08-19 11:26] VITALS: BP 110/72; PULSE 91; RESP 18; O2SAT 97
[2024-08-19 11:37] VITALS: BP 94/63; PULSE 88; RESP 16; O2SAT 98
== END 2024-08-19 11:37 | disposition home or self-care (01) ==
PROVIDERS: PCP Internal Medicine Adolescent Medicine; Visit Provider Nurse Practitioner Family
DX: M51.16 Intervertebral disc disorders with radiculopathy, lumbar region (principal)
CPT/HCPCS: 62370

== ENCOUNTER 2024-08-24 13:39 | Outpatient (POV) | payer OTHER, SELFPAY ==
--- NOTE | 2024-08-24 14:16 | EXP.PAIN.SOA ---
[facility] Disclaimer: The information contained in this section may have been updated after the patient was seen, as this information can be updated by other users. Medical History (Updated 08/24/24 @ 14:19 by Karen Gracia APRN) Tachycardia Shortness of breath Syncope LEONORA (obstructive sleep apnea) Elevated left ventricular end-diastolic pressure (LVEDP) Edema History of left heart catheterization SVT (supraventricular tachycardia) Pulmonary embolism Osteoarthritis Migraine HTN (hypertension) HLD (hyperlipidemia) Heart murmur GERD (gastroesophageal reflux disease) DVT (deep venous thrombosis) Afib Asthma Arrhythmia Anxiety History of pulmonary embolism Surgical History History of bariatric surgery History of exploratory laparotomy History of cholecystectomy History of lumpectomy of left breast H/O knee surgery History of esophageal surgery H/O foot surgery Previous back surgery Family History Other Family history of cancer Family history of hypertension Social History Smoking Status: Current every day smoker tobacco type: cigarettes packs per day: 4 second hand exposure: No alcohol intake: never substance use type: marijuana current occupational status: other Travel in the last 8 weeks: None household members: spouse housing: house number of children: 0 current occupational exposures/hazards: No caffeine: No PM Subjective & Objective Subjective Subjective:: Patient is a pleasant 39-year-old female who presents today for questions regarding Botox for migraines. Today she rates her pain a 7 out of 10. She denies any new trauma or injury. She does state that our last intrathecal increase did help significantly and she is doing well with that current dosage of morphine 2 mg/mL with a daily dose of 0.2635 mg/day. Patient does state however that she has always had headaches and migraines since she was around 17 years old and that she has tried multiple medications. Patient does mention Angeltepaula, Truong, Ajdayana. She states that she was seeing the neurologist at [facility] Dr. Vivi Velez however she has now relocated to [place] and she is no longer seeing her as a provider. Patient states she was getting Botox injections with this provider and that it was helping to decrease her migraines from daily to about twice per week. Patient states that she has not had any injections since February 2024. Patient is interested in getting started back with this. Patient does also state that she was getting the Ajovy samples from this provider however her insurance would not cover this medication and that it did really help. Patient states that her primary care has not prescribed her anything for this. Patient is asking if there is anything we can send in. Her Dinesh has been reviewed and is appropriate. Review of Systems: General: No recent weight changes, no fever, no sleep disturbances Respiratory: No cough, no shortness of air, no recurring pulmonary infections Cardiovascular/peripheral vascular: No chest pain, no palpitations, no edema, no shortness of breath Gastrointestinal: No new onset incontinence, normal bowel movements reported Genitourinary: No new onset incontinence Musculoskeletal: Headaches, migraines Psychiatric: [Normal mood/affect] Neurological: [Denies weakness in extremities], [denies balance issues] Pain at rest (0-10 scale): 7 Objective Objective:: Physical Exam: General: Alert and oriented x3, no acute distress, pleasant and cooperative Lungs: Respirations even and unlabored, symmetrical chest expansion Eyes: PERRL Musculoskeletal: Flexion and extension of lumbar [spine] somewhat guarded secondary to pain, [antalgic gait noted] Neurological: Speech clear, no gross sensory deficit Has patient had previous pain injection?: No Conservative treatment options previously tried: Home exercise plan Length of treatment: Longer than 12 Meds Home Medications and Allergies Home Medications ?Medication ?Instructions ?Recorded ?Confirmed ?Type alprazolam 0.5 mg tablet 0.5 mg PO TIDP PRN Anxiety #30 tabs 01/12/19 08/19/24 History pregabalin 200 mg capsule 200 mg PO BID RLS 02/05/21 08/19/24 History promethazine 25 mg tablet 25 mg PO TID PRN nausea and 07/01/24 08/19/24 Rx vomiting #20 tabs buspirone 15 mg tablet 15 mg PO TID 07/18/24 08/19/24 History hydroxyzine pamoate 50 mg capsule 50 mg PO Q4H PRN . 07/18/24 08/19/24 History lamotrigine 150 mg tablet 150 mg PO BID 07/18/24 08/19/24 History lamotrigine 200 mg tablet 200 mg PO BID 07/18/24 08/19/24 History quetiapine 100 mg tablet 100 mg PO HS 07/18/24 08/19/24 History New Prescriptions to Start Prescriptions: Allergies Allergy/AdvReac Type Severity Reaction Status Date / Time hydromorphone (From Dilaudid) Allergy Intermediate Verified 07/18/24 13:26 NSAIDS (Non-Steroidal Allergy Unknown Verified 07/18/24 13:26 Anti-Inflamma lactose AdvReac Mild Nausea Verified 07/18/24 13:26 cilantro Allergy Severe throat and Uncoded 07/18/24 13:26 tongue swells, hives on face Assessment and Plan *Assessment and plan (1) Chronic headaches: Status: Acute Category: Medical Code(s): R51.9 - Headache, unspecified; G89.29 - Other chronic pain (2) Migraine: Status: Acute Category: Medical Code(s): G43.909 - Migraine, unspecified, not intractable, without status migrainosus Plan I did discuss at length with the patient that we will submit for her records from Dr. Vivi Velez's office and I have also recommended that she do the same. Patient was counseled that we will plan on getting her scheduled for Botox in the future once we have documentation to review over medications that she has tried and failed in the past as well as Botox history. Patient acknowledges understanding. Patient was also counseled that we do not prescribe headache medications due to this not being a common medication used in our clinic. I will send her to neurology for evaluation and to establish care. Patient will return to clinic in 2 weeks for reevaluation of symptoms and plan of care. Patient has been instructed to contact the clinic with any concerns before the next appointment. Dr. Jung has reviewed this note and agrees with this plan of care. This note was dictated using voice recognition software and make contain errors or omissions. All injections are used with Lidocaine, Bupivacaine and Depo Medrol. Occasionally urine drug screen is needed to verify patient's compliance with our office pain contract. This is ordered based off specific treatments related to chronic pain with the potential to abuse certain medications.
[2024-08-24 14:25] VITALS: BP 110/64; PULSE 89; RESP 16; O2SAT 100; BMI 20.2
== END 2024-08-24 23:59 | disposition home or self-care (01) ==
LOC: SC.PAIN 13:40
PROVIDERS: PCP Internal Medicine Adolescent Medicine; Visit Provider Nurse Practitioner Family
DX: G43.909 Migraine, unspecified, not intractable, without status migrainosus (principal); F17.210 Nicotine dependence, cigarettes, uncomplicated
CPT/HCPCS: 99212; G0463

== ENCOUNTER 2024-08-31 15:01 | Outpatient (CLI) | payer OTHER, SELFPAY ==
[2024-08-31 15:29] LABS: Basophils % 0.5 % (0.1-2.0); Eosinophils # 0.3 K/mm3 (0.0-0.4); Eosinophils % 3.7 % (0.1-12.0); Hematocrit 33.2 % (37.0-47.0); Lymphocytes # 2.2 K/mm3 (0.7-4.5); Lymphocytes % 30.5 % (10-50); Mean Corpuscular HGB Conc 30.1 g/dL (31.8-35.4); Mean Corpuscular Hemoglobin 21.4 pg (27.0-31.2); Mean Corpuscular Volume 70.9 fl (81-99); Mean Platelet Volume 9.5 fl (7.4-10.4); Monocytes # 0.6 K/mm3 (0.1-1.0); Monocytes % 8.2 % (1.7-9.3); Neutrophils # 4.2 K/mm3 (1.8-7.8); Platelet Count 318 K/mm3 (142-424); Red Blood Count 4.68 M/mm3 (4.20-5.40); Red Cell Distribution Width 20.7 % (11.5-17.5); White Blood Count 7.3 K/mm3 (4.8-10.8)
[2024-08-31 15:42] LABS: Albumin Level 4.2 g/dl (3.5-5.0); Chloride 103 mmol/L (98-107); Potassium 4.2 mmoL/L (3.5-5.1); Sodium 136 mmol/L (136-145)
[2024-08-31 15:44] LABS: Alanine Aminotransferase 15 U/L (12-78); Amylase 90 U/L (30-110); Anion Gap 8.2 mEq/L (5-15); Aspartate Amino Transferase 30 U/L (14-36); Blood Urea Nitrogen 16 mg/dl (7-17); Carbon Dioxide 29 mmol/L (22.0-30.0); Estimated Glomerular Filt Rate 93 ml/min (>60); GFR (African American) 112 ML/MIN (>60)
[2024-08-31 15:45] LABS: Albumin/Globulin Ratio 1.4 (1.1-1.8); Alkaline Phosphatase 118 U/L (38-126); Bilirubin,Total 0.2 mg/dl (0.2-1.3); Calcium 9.5 mg/dl (8.4-10.2); Glucose 89 mg/dl (74-100); Iron 26 ug/dL (37-170); Lipase 227 U/L (23-300); Total Protein,Serum 7.2 g/dl (6.3-8.2)
[2024-08-31 15:54] LABS: Total Iron Binding Capacity 420 ug/dL (265-497)
[2024-09-01 14:10] LABS: Actin (Smooth Muscle) Antibody 20 Units (0-19); Mitochondrial (M2) Antibody <20.0 Units (0.0-20.0)
== END 2024-08-31 23:59 | disposition home or self-care (01) ==
LOC: LAB 15:02
PROVIDERS: PCP Internal Medicine Adolescent Medicine; Visit Provider Internal Medicine Gastroenterology
DX: R74.8 Abnormal levels of other serum enzymes (principal); R10.11 Right upper quadrant pain; K74.69 Other cirrhosis of liver; B19.20 Unspecified viral hepatitis C without hepatic coma
CPT/HCPCS: 36415; 80053; 82150; 82728; 83540; 83550; 83690; 85025; 86255; 86256

== ENCOUNTER 2024-09-07 13:57 | Outpatient (POV) | payer OTHER, SELFPAY ==
[2024-09-07 14:30] VITALS: BP 114/69; PULSE 76; RESP 14; O2SAT 99; BMI 19.9
--- NOTE | 2024-09-07 15:12 | EXP.PAIN.SOA ---
[facility] Disclaimer: The information contained in this section may have been updated after the patient was seen, as this information can be updated by other users. Medical History Tachycardia Shortness of breath Syncope LEONORA (obstructive sleep apnea) Elevated left ventricular end-diastolic pressure (LVEDP) Edema History of left heart catheterization SVT (supraventricular tachycardia) Pulmonary embolism Osteoarthritis Migraine HTN (hypertension) HLD (hyperlipidemia) Heart murmur GERD (gastroesophageal reflux disease) DVT (deep venous thrombosis) Afib Asthma Arrhythmia Anxiety History of pulmonary embolism Surgical History History of bariatric surgery History of exploratory laparotomy History of cholecystectomy History of lumpectomy of left breast H/O knee surgery History of esophageal surgery H/O foot surgery Previous back surgery Family History Other Family history of cancer Family history of hypertension Social History (Updated 08/31/24 @ 13:49 by ATTILA Garza) Smoking Status: Current every day smoker tobacco type: cigarettes packs per day: 4 second hand exposure: No alcohol intake: never substance use type: marijuana current occupational status: other Travel in the last 8 weeks: None household members: spouse housing: house number of children: 0 current occupational exposures/hazards: No caffeine: No PM Subjective & Objective Subjective Subjective:: Patient is a pleasant 39-year-old female who presents today for follow-up. Today she rates her pain a 7 out of 10. She denies any new trauma or injury. She does state that she is still having the headaches and migraines very frequently and still would like to proceed forward with the Botox. Patient was seen Vivi Velez at [place] however her office is closed now. Patient has tried Nurtec, Inderal, Ajovy for migraines in the past. Patient states she has also tried [id number] medications. She does state that she was getting Botox injections at the [place] location. Her Dinesh has been reviewed and is appropriate. Review of Systems: General: No recent weight changes, no fever, no sleep disturbances Respiratory: No cough, no shortness of air, no recurring pulmonary infections Cardiovascular/peripheral vascular: No chest pain, no palpitations, no edema, no shortness of breath Gastrointestinal: No new onset incontinence, normal bowel movements reported Genitourinary: No new onset incontinence Musculoskeletal: Headaches, migraines Psychiatric: [Normal mood/affect] Neurological: [Denies weakness in extremities], [denies balance issues] Pain at rest (0-10 scale): 7 Objective Objective:: Physical Exam: General: Alert and oriented x3, no acute distress, pleasant and cooperative Lungs: Respirations even and unlabored, symmetrical chest expansion Eyes: PERRL Musculoskeletal: Flexion and extension of cervical [spine] within normal limits Neurological: Speech clear, no gross sensory deficit Has patient had previous pain injection?: No Conservative treatment options previously tried: Home exercise plan Length of treatment: Longer than 12 weeks Meds Home Medications and Allergies Home Medications ?Medication ?Instructions ?Recorded ?Confirmed ?Type alprazolam 0.5 mg tablet 0.5 mg PO TIDP PRN Anxiety #30 tabs 01/12/19 09/07/24 History pregabalin 200 mg capsule 200 mg PO BID RLS 02/05/21 09/07/24 History buspirone 15 mg tablet 15 mg PO TID 07/18/24 09/07/24 History hydroxyzine pamoate 50 mg capsule 50 mg PO Q4H PRN . 07/18/24 09/07/24 History lamotrigine 200 mg tablet 200 mg PO BID 07/18/24 09/07/24 History quetiapine 100 mg tablet 100 mg PO HS 07/18/24 09/07/24 History linaclotide 145 mcg capsule 145 mcg PO DAILY #30 caps 08/31/24 09/07/24 Rx (Linzess) lorazepam 1 mg tablet 1 mg PO BID PRN abdominal pain #60 08/31/24 09/07/24 Rx tabs pediatric multivitamin 1 tab PO DAILY 08/31/24 09/07/24 History (Flintstones Multivitamin chewable tablet) New Prescriptions to Start Prescriptions: Allergies Allergy/AdvReac Type Severity Reaction Status Date / Time hydromorphone (From Dilaudid) Allergy Intermediate Verified 08/31/24 13:47 NSAIDS (Non-Steroidal Allergy Unknown Verified 08/31/24 13:47 Anti-Inflamma lactose AdvReac Mild Nausea Verified 08/31/24 13:47 cilantro Allergy Severe throat and Uncoded 08/31/24 13:47 tongue swells, hives on face Assessment and Plan *Assessment and plan (1) Migraine: Status: Acute Category: Medical Code(s): G43.909 - Migraine, unspecified, not intractable, without status migrainosus (2) Chronic headaches: Status: Acute Category: Medical Code(s): R51.9 - Headache, unspecified; G89.29 - Other chronic pain Plan I did discuss at length with the patient that I would like to see a copy of her records from Dr. Velez's office and that if she is unable to pull them up on her portal and get us copies would be wonderful. We will still try and reach out again to this office and see if we can get copies of her records. We will submit for Botox for chronic migraines. Patient has been instructed to contact the clinic with any concerns before the next appointment. Dr. Jung has reviewed this note and agrees with this plan of care. This note was dictated using voice recognition software and make contain errors or omissions. All injections are used with Lidocaine, Bupivacaine and Depo Medrol. Occasionally urine drug screen is needed to verify patient's compliance with our office pain contract. This is ordered based off specific treatments related to chronic pain with the potential to abuse certain medications.
== END 2024-09-07 23:59 | disposition home or self-care (01) ==
LOC: SC.PAIN 13:58
PROVIDERS: PCP Internal Medicine Adolescent Medicine; Visit Provider Nurse Practitioner Family
DX: G43.909 Migraine, unspecified, not intractable, without status migrainosus (principal); G89.29 Other chronic pain; F17.210 Nicotine dependence, cigarettes, uncomplicated
CPT/HCPCS: 99212; G0463

== ENCOUNTER 2024-09-16 10:16 | Outpatient (CLI) | payer OTHER, SELFPAY ==
--- NOTE | 2024-09-16 10:21 | US_ITS ---
FINAL REPORT CLINICAL HISTORY: Right upper quadrant abdominal pain COMPARISON: None FINDINGS: Sonographic images of the right upper quadrant were obtained. The pancreas is almost completely obscured.The liver has an unremarkable appearance. The gallbladder has been surgically resected. There is no evidence of biliary ductal dilatation.The common duct measures 5 mm. Limited images of the right kidney are unremarkable. IMPRESSION: Prior cholecystectomy without evidence of biliary ductal dilatation. Reviewed, Interpreted and Dictated by Carrington Snyder MD Transcribed by Sakshi Valdez Authenticated and [facility]
== END 2024-09-16 23:59 | disposition home or self-care (01) ==
LOC: RAD 10:17
PROVIDERS: PCP Internal Medicine Adolescent Medicine; Visit Provider Internal Medicine Gastroenterology
DX: R10.11 Right upper quadrant pain (principal); R74.8 Abnormal levels of other serum enzymes
CPT/HCPCS: 76705

== ENCOUNTER 2024-09-26 14:33 | Day surgery (SDC) | payer OTHER, SELFPAY ==
--- NOTE | 2024-09-26 14:44 | P.PCN_ITS ---
Procedure Date: 09/26/24 Time: 15:18 Anesthesiologist:: Karen Gracia APRN Complications:: None Pre-procedure Diagnosis:: Degenerative disc disease of lumbar spine with lumbar radiculopathy symptoms, migraines, headaches Post-procedure Diagnosis:: Same Indications for Procedure:: Patient is a pleasant 47-year-old female who presents today for Botox injections for migraines. Today she rates her pain a 7 out of 10. She denies any new falls or injuries. Patient does state that she is having some issues with detoxing. She states that she got put on a new medication from her GI doctor that does also help with anxiety and that her primary care then canceled her Xanax. She states that she does have random moments of where she is shaking and having some withdrawal symptoms. Patient does state that she is planning on seeing a new primary care. Patient is currently managed with the 2 mg/mL with a daily dose of 0.2635 mg/day. She denies any side effects from this medication. Patient has been prescribed lorazepam and alprazolam from providers. Her Dinesh has been reviewed. Physical Exam: General: Alert and oriented x3, no acute distress, pleasant and cooperative Lungs: Respirations even and unlabored, symmetrical chest expansion Eyes: PERRL Musculoskeletal: Flexion and extension of cervical [spine] somewhat guarded secondary to pain, [antalgic gait noted] Neurological: Speech clear, no gross sensory deficit Procedure Details:: Patient was taken to the procedure room and placed in a seated position. The area over injection sites was cleansed with alcohol pads. Onabotulinum toxin a at a dilution of 5 units per 0.1 mL (50 units per 1 mL) was injected via a 30- gauge by 0.5 inch disposable needle with the following muscles: 1. Left radiotelegrapher?1 site, 5 units 2. Right core greater?1 site, 5 units 3. Procerus?1 site, 5 units 4. Frontalis?4 sites, 20 units 5. Left temporalis?4 sites, 20 units 6. Right temporalis?4 sites, 20 units 7. Left occipitalis?3 sites, 15 units 8. Right occipitalis?3 sites, 15 units 9. Left cervical paraspinous muscles?2 sites, 10 units 10. Right cervical paraspinous muscles?2 sites, 10 units 11. Left trapezius?3 sites, 15 units 12. Right trapezius?3 sites, 15 units Plan and Disposition:: Patient tolerated the procedure well with no complications and was discharged neurologically intact. I did discuss with the patient that she may also benefit from cervical epidurals in the future with the combination of the Botox. Risk and benefits were discussed with the patient and she does states she is a little leery about having injections that are in her neck. We will follow-up with her at her next appointment regarding this option. We will reassess efficacy in 2 weeks. Patient is doing well with her intrathecal pump and current settings. We will see the patient back in the clinic at the next intrathecal refill. Patient has been instructed to contact the clinic with any concerns before the next appointment. Dr. Jung has reviewed this note and agrees with this plan of care. This note was dictated using voice recognition software and make contain errors or omissions. -- It Is medically necessary for this patient to continue to have their intrathecal pump refilled at regular intervals. This patient had an intrathecal pain pump implanted after meeting criteria of chronic intractable pain for greater than 3 months and failing conservative treatments. Patient has committed and been compliant to the treatment plan and all planned follow up care. Since implantation of the intrathecal pain pump, the patient has had decreased pain and been more functional. Oral medications have been reduced including intake of oral opioids. Patient continues to do well with intrathecal therapy with decrease in pain symptoms and increase in functional status. Stopping intrathecal medications can lead to life threatening withdrawal, seizures, cardiac arrest, severe pain, and possible . Pumps that are not refilled at regular intervals can be damages and cause and need for replacement. We continually titrate dose and concentration to optimize pain relief and function. We are limited in concentration for certain drugs to safely deliver medications through the pump and stay within the recommendations from the Polyanalges[employer] Consensus Committee Guidelines. Depending on dose and concentration these pumps may need to be refilled sooner than 3 months as we titrate. A UDS is needed to verify patient's compliance with our office pain contract. This is ordered based off specific treatments related to chronic pain with the potential to abuse certain medications.
[2024-09-26 14:50] VITALS: BP 92/60; PULSE 76; RESP 18; O2SAT 99; BMI 20.7
[2024-09-26 14:58] VITALS: BP 110/71; PULSE 71; RESP 18; O2SAT 100
[2024-09-26 15:00] VITALS: BP 110/71; PULSE 71; RESP 18; O2SAT 100
[2024-09-26] MEDS: BOTULINUM TOXIN TYPE A 100 UNIT/ML 155 UNIT IM (15:09)
[2024-09-26 15:25] VITALS: BP 117/77; PULSE 71; RESP 18; O2SAT 100
== END 2024-09-26 15:30 | disposition home or self-care (01) ==
PROVIDERS: PCP Internal Medicine Adolescent Medicine; Visit Provider Nurse Practitioner Family
DX: G43.909 Migraine, unspecified, not intractable, without status migrainosus (principal); M51.16 Intervertebral disc disorders with radiculopathy, lumbar region
CPT/HCPCS: 20553; J0585

== ENCOUNTER 2024-10-10 14:00 | Outpatient (POV) | payer OTHER, SELFPAY ==
[2024-10-10 14:04] VITALS: BP 114/80; PULSE 83; RESP 16; O2SAT 100
--- NOTE | 2024-10-10 14:24 | A.OFFVIS_ITS ---
[facility] Disclaimer: The information contained in this section may have been updated after the patient was seen, as this information can be updated by other users. Medical History Tachycardia Shortness of breath Syncope LEONORA (obstructive sleep apnea) Elevated left ventricular end-diastolic pressure (LVEDP) Edema History of left heart catheterization SVT (supraventricular tachycardia) Pulmonary embolism Osteoarthritis Migraine HTN (hypertension) HLD (hyperlipidemia) Heart murmur GERD (gastroesophageal reflux disease) DVT (deep venous thrombosis) Afib Asthma Arrhythmia Anxiety History of pulmonary embolism Surgical History History of bariatric surgery History of exploratory laparotomy History of cholecystectomy History of lumpectomy of left breast H/O knee surgery History of esophageal surgery H/O foot surgery Previous back surgery Family History Other Family history of cancer Family history of hypertension Social History Smoking Status: Current every day smoker tobacco type: cigarettes packs per day: 4 second hand exposure: No alcohol intake: never substance use type: marijuana current occupational status: other Travel in the last 8 weeks: None household members: spouse housing: house number of children: 0 current occupational exposures/hazards: No caffeine: No Have you lived/traveled outside [place] in past 30 days?: No Contact w/someone who lives/traveled outside [place] past 30 days?: No Exposure to someone with infectious disease in past 14 days?: No Do you have a fever (greater than 100.4 F or 38 C)?: No Have you tested positive for COVID-19: No Exposed to someone with COVID-19 in past 14 days?: No Do you have a sore throat?: No Do you have a cough?: No Do you have any weakness?: No Are you experiencing any nausea/vomitting?: No Do you have any diarrhea?: No Are you experiencing any unusual bleeding?: No Do you have any muscle aches/pain?: No Do you have any abdominal pain?: No Are you experiencing loss of taste or smell?: No PM Subjective & Objective Subjective Subjective:: Patient is a pleasant 39-year-old female who presents today for follow-up of Botox injections for migraines on 09/26/2024. Today she rates her pain a 6 out of 10. She does state that she has had approximately 45 to 50% improvement following these injections however today she is having a really bad migraine. Patient states that she is not yet gotten into see Dr. Carlisle however she did just recently get something in the mail regarding this. Patient was sent referral from our office over a month ago. Patient does have a intrathecal pain pump in place with morphine 2 mg/mL with a daily dose of 0.2635 mg/day. She denies any side effects from this medication. Her Dinesh has been reviewed and is appropriate. Review of Systems: General: No recent weight changes, no fever, no sleep disturbances Respiratory: No cough, no shortness of air, no recurring pulmonary infections Cardiovascular/peripheral vascular: No chest pain, no palpitations, no edema, no shortness of breath Gastrointestinal: No new onset incontinence, normal bowel movements reported Genitourinary: No new onset incontinence Musculoskeletal: Migraine, low back pain Psychiatric: [Normal mood/affect] Neurological: [Denies weakness in extremities], [denies balance issues] Pain at rest (0-10 scale): 6 Objective Objective:: Physical Exam: General: Alert and oriented x3, no acute distress, pleasant and cooperative Lungs: Respirations even and unlabored, symmetrical chest expansion Eyes: PERRL Musculoskeletal: Flexion and extension of lumbar [spine] somewhat guarded secondary to pain, [antalgic gait noted] Neurological: Speech clear, no gross sensory deficit Has patient had previous pain injection?: Yes Percent improvement in pain since last injection: 45 to 50% Conservative treatment options previously tried: Home exercise plan Length of treatment: Longer than 12 weeks Meds Home Medications and Allergies Home Medications ?Medication ?Instructions ?Recorded ?Confirmed ?Type alprazolam 0.5 mg tablet 0.5 mg PO TIDP PRN Anxiety #30 tabs 01/12/19 10/10/24 H istory pregabalin 200 mg capsule 200 mg PO BID RLS 02/05/21 10/10/24 History buspirone 15 mg tablet 15 mg PO TID 07/18/24 10/10/24 History hydroxyzine pamoate 50 mg capsule 50 mg PO Q4H PRN . 07/18/24 10/10/24 History lamotrigine 200 mg tablet 200 mg PO BID 07/18/24 10/10/24 History quetiapine 100 mg tablet 100 mg PO HS 07/18/24 10/10/24 History linaclotide 145 mcg capsule 145 mcg PO DAILY #30 caps 08/31/24 10/10/24 Rx (Linzess) lorazepam 1 mg tablet 1 mg PO BID PRN abdominal pain #60 08/31/24 10/10/24 Rx tabs pediatric multivitamin 1 tab PO DAILY 08/31/24 10/10/24 History (Flintstones Multivitamin chewable tablet) New Prescriptions to Start Prescriptions: Allergies Allergy/AdvReac Type Severity Reaction Status Date / Time hydromorphone (From Dilaudid) Allergy Intermediate Unknown Verified 10/10/24 14:05 allergy reaction NSAIDS (Non-Steroidal Allergy Unknown Unknown Verified 10/10/24 14:05 Anti-Inflamma allergy reaction lactose AdvReac Mild Nausea Verified 10/10/24 14:05 cilantro Allergy Severe throat and Uncoded 08/31/24 13:47 tongue swells, hives on face Assessment and Plan *Assessment and plan (1) Migraine: Status: Acute Category: Medical Code(s): G43.909 - Migraine, unspecified, not intractable, without status migrainosus Plan Patient has had significant improvement following her Botox injections and definitely states that she has noticed that they are not as frequent. Patient was discussed that we will plan on following up with her on her migraines as well as her pump at her next intrathecal refill date. Patient was recommended to try Excedrin Migraine [id number] until she has gotten into see Dr. Carlisle. She agrees with this plan of care. Patient will return to clinic on or before her next intrathecal refill. We will see the patient back in the clinic at the next intrathecal refill. Patient has been instructed to contact the clinic with any concerns before the next appointment. Dr. Jung has reviewed this note and agrees with this plan of care. This note was dictated using voice recognition software and make contain errors or omissions. -- It Is medically necessary for this patient to continue to have their intrathecal pump refilled at regular intervals. This patient had an intrathecal pain pump implanted after meeting criteria of chronic intractable pain for greater than 3 months and failing conservative treatments. Patient has committed and been compliant to the treatment plan and all planned follow up care. Since implantation of the intrathecal pain pump, the patient has had decreased pain and been more functional. Oral medications have been reduced including intake of oral opioids. Patient continues to do well with intrathecal therapy with decrease in pain symptoms and increase in functional status. Stopping intrathecal medications can lead to life threatening withdrawal, seizures, cardiac arrest, severe pain, and possible . Pumps that are not refilled at regular intervals can be damages and cause and need for replacement. We continually titrate dose and concentration to optimize pain relief and function. We are limited in concentration for certain drugs to safely deliver medications through the pump and stay within the recommendations from the [employer] Guidelines. Depending on dose and concentration these pumps may need to be refilled sooner than 3 months as we titrate. A UDS is needed to verify patient's compliance with our office pain contract. This is ordered based off specific treatments related to chronic pain with the potential to abuse certain medications.
== END 2024-10-10 23:59 | disposition home or self-care (01) ==
PROVIDERS: PCP Internal Medicine Adolescent Medicine; Visit Provider Nurse Practitioner Family
DX: G43.909 Migraine, unspecified, not intractable, without status migrainosus (principal); F17.210 Nicotine dependence, cigarettes, uncomplicated
CPT/HCPCS: 99212; G0463

== ENCOUNTER 2024-11-04 09:00 | Day surgery (SDC) | payer OTHER, SELFPAY ==
[2024-11-04 09:12] VITALS: BP 91/55; PULSE 65; RESP 16; TEMP 36.8; O2SAT 98; BMI 20.7
--- NOTE | 2024-11-04 09:22 | P.PCN_ITS ---
Procedure Date: 11/04/24 Time: 09:28 Anesthesiologist:: Karen Gracia APRN Complications:: None Pre-procedure Diagnosis:: Degenerative disc disease of lumbar spine with lumbar radiculopathy symptoms, chronic headaches, chronic pain syndrome Post-procedure Diagnosis:: Same Indications for Procedure:: Patient is a pleasant 39-year-old female who presents today for intrathecal refill and reprogram. Today she rates her pain a 7 out of 10. Patient denies any new trauma or injury. Patient is currently managed with morphine 2 mg/mL with a daily dose of 0.2635 mg/day. She denies any side effects. She does state that her back is bothering her more and she would like an adjustment if we can go up. Patient is prescribed lorazepam and pregabalin from an outside provider. Her Dinesh has been reviewed and is appropriate. Physical Exam: General: Alert and oriented x3, no acute distress, pleasant and cooperative Lungs: Respirations even and unlabored, symmetrical chest expansion Eyes: PERRL Musculoskeletal: Flexion and extension of lumbar [spine] somewhat guarded secondary to pain, [antalgic gait noted] Neurological: Speech clear, no gross sensory deficit Procedure Details:: Informed consent was obtained and the risk and benefits of the procedure were explained to the patient. The patient had noninvasive monitoring placed including noninvasive blood pressure cuff and pulse oximeter. Patient's pump was interrogated. The area over the pump was cleansed with chlorhexidine as a cleansing solution. In sterile fashion the pump was accessed with a 22-gauge needle. Approximately 8.8 mls of the pump solution was removed and discarded appropriately. The pump was then refilled with 20 mL's of morphine 2 mg/mL. The needle was withdrawn and a bandage was placed over the puncture site. The infusion rate was reprogrammed and increased 10% to morphine 0.2897 mg/day. The patient tolerated well with no complication. Plan and Disposition:: Patient tolerated the procedure well with no complications and was discharged neurologically intact. Patient will return to clinic on or before their next intrathecal refill date. We will see the patient back in the clinic at the next intrathecal refill. Patient has been instructed to contact the clinic with any concerns before the next appointment. Dr. Jung has reviewed this note and agrees with this plan of care. This note was dictated using voice recognition software and make contain errors or omissions. -- It Is medically necessary for this patient to continue to have their intrathecal pump refilled at regular intervals. This patient had an intrathecal pain pump implanted after meeting criteria of chronic intractable pain for greater than 3 months and failing conservative treatments. Patient has committed and been compliant to the treatment plan and all planned follow up care. Since implantation of the intrathecal pain pump, the patient has had decreased pain and been more functional. Oral medications have been reduced including intake of oral opioids. Patient continues to do well with intrathecal therapy with decrease in pain symptoms and increase in functional status. Stopping intrathecal medications can lead to life threatening withdrawal, seizures, cardiac arrest, severe pain, and possible . Pumps that are not refilled at regular intervals can be damages and cause and need for replacement. We c ontinually titrate dose and concentration to optimize pain relief and function. We are limited in concentration for certain drugs to safely deliver medications through the pump and stay within the recommendations from the [employer]ensus [employer] Guidelines. Depending on dose and concentration these pumps may need to be refilled sooner than 3 months as we titrate. A UDS is needed to verify patient's compliance with our office pain contract. This is ordered based off specific treatments related to chronic pain with the potential to abuse certain medications.
[2024-11-04 09:25] VITALS: BP 101/60; PULSE 67; RESP 18; O2SAT 100
[2024-11-04 09:26] VITALS: BP 101/60; PULSE 67; RESP 18; O2SAT 100
[2024-11-04 09:39] VITALS: BP 99/61; PULSE 66; RESP 16; O2SAT 99
== END 2024-11-04 09:39 | disposition home or self-care (01) ==
PROVIDERS: PCP Nurse Practitioner Family; Visit Provider Nurse Practitioner Family
DX: M51.16 Intervertebral disc disorders with radiculopathy, lumbar region (principal); G89.4 Chronic pain syndrome; R51.9 Headache, unspecified
CPT/HCPCS: 62370

== ENCOUNTER 2024-11-28 14:00 | Outpatient (CLI) | payer OTHER, SELFPAY ==
--- OUTSIDE RECORDS SUMMARY | 2024-11-28 14:03 | XMS_ITS | Data Portability ---
Author Organization [facility] - [facility] ADMIN Address [address] [place] [id number] Assessment Encounter Date Assessment Date Assessment LastModified by Organization Details LastModified Time 06/23/2024 06/23/2024 Ms. Macias was referred by Dr. Velez (neurology) for management of chronic migraines. She denies DM, history of infection, or anti-coagulan t use. [email or web address] Not available 06/23/2024 17:51:54 Plan of Treatment Reminders Order Date Submit Date Provider Last Modified By Organization Details Last Modified Time Details Appointments None recorded. Lab vitamin D, 25-hydroxy, total, serum 2023 024 MARYAM [facility], [address], [address], [place], [address], 4 20:39:28 CBC w/ auto diff 2023 024 MARYAM [facility], [address], [address], [place], [address], 4 20:39:24 thiamine, QN, blood 2023 024 MARYAM [facility], [address], [address], [place], [address], 4 20:39:29 prealbumin, serum 2023 024 MARYAM [facility], [address], [address], [place], [address], 4 20:39:33 copper, serum or plasma 2023 024 MARYAM [facility], [address], [address], [place], [address], 4 20:39:31 selenium, quantitativ e, blood 2023 024 MARYAM [facility], [address], [address], [place], [address], 4 20:39:33 zinc, serum or plasma 2023 024 MARYAM [facility], [address], [address], [place], [address], 4 20:39:32 CMP, serum or plasma 2023 024 MARYAM [facility], [address], [address], [place], [address], 4 20:39:25 iron + TIBC + ferritin, serum 2023 024 MARYAM [facility], [address], [address], [place], [address], 4 20:39:22 folate, serum 2023 024 MARYAM [facility], [address], [address], [place], [address], 4 20:39:27 vitamin E, serum 2023 024 MARYAM [facility], [address], [address], [place], [address], 4 20:39:26 vitamin A (retinol), serum 2023 024 MARYAM [facility], [address], [address], [place], [address], 4 20:39:28 TSH + free T4, serum 2023 024 MARYAM [facility], [address], [address], [place], [address], 4 20:39:23 methylmalon ate, QN, serum or plasma 2023 024 MARYAM [facility], [address], [address], [place], [address], 4 20:39:30 Referral None recorded. Procedures chemodenerv ation of muscle(s); muscle(s) innervated by facial, trigeminal, cervical spinal and accessory nerves, bilateral (PROC) - 09362, Botox injections for migraines - 155 units 2023 024 [email or web address] Not available 5 11:34:23 Surgeries esophagogas troduodenos copy (SURG) 2023 024 [email or web address] Mia Landaverde MD, [address], [address], [place], [address], 4 11:36:46 Imaging RF, upper gastrointes tinal tract + small bowel, w/ contrast PO 2023 024 [facility] ([facility] Sched[facility]), [address], [place], [address], 4 13:11:31 Medication Orders Botox 200 unit injection 2023 024 [email or web address] Not available 4 10:31:07 Botox 200 unit injection 2023 024 [email or web address] Not available 4 10:09:04 Botox 200 unit injection 2023 024 [email or web address] Not available 4 11:28:34 thiamine HCl (vitamin B1) 100 mg/mL injection solution 2023 024 [email or web address] Not available 4 10:37:12 cyanocobala min (vit B-12) 1,000 mcg/mL injection solution 2023 024 [email or web address] Not available 4 10:35:04 Patient TargetsNo targets recorded. Patient Instructions Encounter Date Encounter Id Patient Instructions Last Modified By Organization Details Last Modified Time 06/23/2024 [id number] I have discussed in great detail our potential treatment options which would include a rehabilitative approach to care. This program would include medication management, Physical Therapy, consideration for interventional procedures as appropriate, and lifestyle modification (diet, weight loss, exercise, smoking/tobacco cessation, holistic approach including meditation and yoga). The patient understands and agrees prior to proceeding with this plan. _ __ __ __ __ __ __ __ __ __ __ __ __ __ __ __ __ __ __ __ __ __ __ __ __ __ __ __ _ RECORDS REVIEW: As per clinic policy, we will have the patient sign a release to obtain previous imaging and clinical notes. - PROCEDURE: I counseled the patient extensively and informed of the risks of the procedure, including the risk of paralysis, nerve damage, respiratory arrest, arrhythmias, stroke, weakness, and infection, which although very low, could result in or disability. The patient acknowledged to me that they understand and accept these risks. RN EDUCATION Extensive coordination of care provided by RN to educate patient on upcoming procedure and to coordinate obtaining extensive incoming medical records. _ __ __ __ __ __ __ __ __ __ __ __ __ __ __ __ __ __ __ __ __ __ __ __ __ __ __ __ _ PSYCH: Pain affecting Neuro-psych behavior was discussed. Discussed about pain psychological counseling as a part of the multimodal approach to pain treatment. _ __ __ __ __ __ __ __ __ __ __ __ __ __ __ __ __ __ __ __ __ __ __ __ __ __ __ __ _ REHABILITATION: Discussed with the patient the importance of diet, daily physical activity and PT. Discussed with the patient the need to be scheduled for physical therapy since physical therapy will prolong the benefits of the procedure and interventions. _ __ __ __ __ __ __ __ __ __ __ __ __ __ __ __ __ __ __ __ __ __ __ __ __ __ __ __ _ JACQUI: [id number] I have reviewed patient's JACQUI report prior to prescribing Schedule II, III, and IV medications that require review by law. [email or web address] Not available 06/23/2024 17:53:22 Reason for Referral None Reported. Results Created Date Observation Date Name Description Value Unit Range Abnormal Flag Note LastModifiedBy Organization Detail LastModifiedTime 08/25/19 24 08/26/2023 FE+TI BC+FE R iron bind.cap.(TI BC) 340 ug/dL 250-45 0 Not Available [facility] ([facility]) [address] [place], [address], 08/31/2023 20:39:22 08/25/19 24 08/26/2023 FE+TI BC+FE R UIBC 323 ug/dL 131-42 5 Not Available [facility] ([facility]) [address] [place], [address], 08/31/2023 20:39:22 08/25/19 24 08/26/2023 FE+TI BC+FE R iron 17 ug/dL 27-159 below low normal Not Available [facility] ([facility]) [address] [place], [address], 08/31/2023 20:39:22 08/25/19 24 08/26/2023 FE+TI BC+FE R iron saturation 5 % 15-55 alert low Not Available [facility] ([facility]) [address] [place], [address], 08/31/2023 20:39:22 08/25/19 24 08/26/2023 FE+TI BC+FE R ferritin 19 NG/mL 15-150 Not Available [facility] ([facility]) [address] [place], [address], 08/31/2023 20:39:22 08/25/19 24 08/26/2023 TSH+F REE T4 TSH 1.120 uIU/m L 0.450- 4.500 Not Available [facility] ([facility]) [address] [facility], [place], [address], 08/31/2023 20:39:23 08/25/19 24 08/26/2023 TSH+F REE T4 T4,free(dire ct) 1.10 NG/dL 0.82-1 .77 Not Available [facility] ([facility]) [address] [place], [address], 08/31/2023 20:39:23 08/25/19 24 08/26/2023 CBC WITH DIFFE RENTI AL/PL ATELE T WBC 7.8 x10e3 /uL 3.4-10 .8 Not Available [facility] ([facility]) [address] [place], [address], 08/31/2023 20:39:24 08/25/19 24 08/26/2023 CBC WITH DIFFE RENTI AL/PL ATELE T RBC 4.40 x10e6 /uL 3.77-5 .28 Not Available [facility] ([facility]) [address] [place], [address], 08/31/2023 20:39:24 08/25/19 24 08/26/2023 CBC WITH DIFFE RENTI AL/PL ATELE T hemoglobin 10.6 g/dL 11.1-1 5.9 below low normal Not Available [facility] ([facility]) [address] [facility], [place], [address], 08/31/2023 20:39:24 08/25/19 24 08/26/2023 CBC WITH DIFFE RENTI AL/PL ATELE T hematocrit 34.5 % 34.0-4 6.6 Not Available [facility] ([facility]) [address] [facility], [place], [address], 08/31/2023 20:39:24 08/25/19 24 08/26/2023 CBC WITH DIFFE RENTI AL/PL ATELE T MCV 78 fL 79-97 below low normal Not Available [facility] ([facility]) [address] [facility], [place], [address], 08/31/2023 20:39:24 08/25/19 24 08/26/2023 CBC WITH DIFFE RENTI AL/PL ATELE T MCH 24.1 pg 26.6-3 3.0 below low normal Not Available [facility] ([facility]) [address] [place], [address], 08/31/2023 20:39:24 08/25/19 24 08/26/2023 CBC WITH DIFFE RENTI AL/PL ATELE T MCHC 30.7 g/dL 31.5-3 5.7 below low normal Not Available [facility] ([facility]) [address] [place], [address], 08/31/2023 20:39:24 08/25/19 24 08/26/2023 CBC WITH DIFFE RENTI AL/PL ATELE T RDW 16.1 % 11.7-1 5.4 above high normal Not Available [facility] ([facility]) [address] [place], [address], 08/31/2023 20:39:24 08/25/19 24 08/26/2023 CBC WITH DIFFE RENTI AL/PL ATELE T platelets 263 x10e3 /uL 150-45 0 Not Available [facility] ([facility]) [address] [facility], [place], [address], 08/31/2023 20:39:24 08/25/19 24 08/26/2023 CBC WITH DIFFE RENTI AL/PL ATELE T neutrophils 48 % not estab. Not Available [facility] ([facility]) [address] [facility], [place], [address], 08/31/2023 20:39:24 08/25/19 24 08/26/2023 CBC WITH DIFFE RENTI AL/PL ATELE T lymphs 30 % not estab. Not Available [facility] ([facility]) [address] [facility], [place], [address], 08/31/2023 20:39:24 08/25/19 24 08/26/2023 CBC WITH DIFFE RENTI AL/PL ATELE T monocytes 7 % not estab. Not Available [facility] ([facility]) [address] [facility], [place], [address], 08/31/2023 20:39:24 08/25/19 24 08/26/2023 CBC WITH DIFFE RENTI AL/PL ATELE T eos 14 % not estab. Not Available [facility] ([facility]) [address] [facility], [place], [address], 08/31/2023 20:39:24 08/25/19 24 08/26/2023 CBC WITH DIFFE RENTI AL/PL ATELE T basos 1 % not estab. 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 0 Not Available [facility] ([facility]) [address] [facility], [place], [address], 08/31/2023 20:39:24 08/25/19 24 08/26/2023 CBC WITH DIFFE RENTI AL/PL ATELE T lymphs (absolute) 2.3 x10e3 /uL 0.7-3. 1 Not Available [facility] ([facility]) [address] [facility], [place], [address], 08/31/2023 20:39:24 08/25/19 24 08/26/2023 CBC WITH DIFFE RENTI AL/PL ATELE T monocytes(ab solute) 0.5 x10e3 /uL 0.1-0. 9 Not Available [facility] ([facility]) [address] [facility], [place], [address], 08/31/2023 20:39:24 08/25/19 24 08/26/2023 CBC WITH DIFFE RENTI AL/PL ATELE T eos (absolute) 1.1 x10e3 /uL 0.0-0. 4 above high normal Not Available [facility] ([facility]) [address] [facility], [place], [address], 08/31/2023 20:39:24 08/25/19 24 08/26/2023 CBC WITH DIFFE RENTI AL/PL ATELE T baso (absolute) 0.1 x10e3 /uL 0.0-0. 2 Not Available [facility] ([facility]) [address] [place], [address], 08/31/2023 20:39:24 08/25/19 24 08/26/2023 CBC WITH DIFFE RENTI AL/PL ATELE T immature granulocytes 0 % not estab. Not Available [facility] ([facility]) [address] [facility], [place], [address], 08/31/2023 20:39:24 08/25/19 24 08/26/2023 CBC WITH DIFFE RENTI AL/PL ATELE T immature grans (abs) 0.0 x10e3 /uL 0.0-0. 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 METAB OLIC PANEL (14) glucose 109 mg/dL 70-99 above high normal Not Available [facility] ([facility]) [address] [facility], [place], [address], 08/31/2023 20:39:25 08/25/19 24 08/26/2023 COMP. METAB OLIC PANEL (14) BUN 10 mg/dL 6-20 Not Available [facility] ([facility]) [address] [facility], [place], [address], 08/31/2023 20:39:25 08/25/19 24 08/26/2023 COMP. METAB OLIC PANEL (14) creatinine 0.92 mg/dL 0.57-1 .00 Not Available [facility] ([facility]) [address] [facility], [place], [address], 08/31/2023 20:39:25 08/25/19 24 08/26/2023 COMP. METAB OLIC PANEL (14) eGFR 81 mL/mi n/1.7 3 >59 Not Available [facility] ([facility]) [address] [facility], [place], [address], 08/31/2023 20:39:25 08/25/19 24 08/26/2023 COMP. METAB OLIC PANEL (14) BUN/creatini ne ratio 11 9-23 Not Available [facility] ([facility]) [address] [facility], [place], [address], 08/31/2023 20:39:25 08/25/19 24 08/26/2023 COMP. METAB OLIC PANEL (14) sodium 144 mmol/ L 134-14 4 Not Available [facility] ([facility]) [address] [facility], [place], [address], 08/31/2023 20:39:25 08/25/19 24 08/26/2023 COMP. METAB OLIC PANEL (14) potassium 4.2 mmol/ L 3.5-5. 2 Not Available [facility] ([facility]) [address] [facility], [place], [address], 08/31/2023 20:39:25 08/25/19 24 08/26/2023 COMP. METAB OLIC PANEL (14) chloride 103 mmol/ L 96-106 Not Available [facility] ([facility]) [address] [facility], [place], [address], 08/31/2023 20:39:25 08/25/19 24 08/26/2023 COMP. METAB OLIC PANEL (14) carbon dioxide, total 22 mmol/ L 20-29 Not Available [facility] ([facility]) [address] [facility], [place], [address], 08/31/2023 20:39:25 08/25/19 24 08/26/2023 COMP. METAB OLIC PANEL (14) calcium 9.1 mg/dL 8.7-10 .2 Not Available [facility] ([facility]) [address] [facility] [place], [address], 08/31/2023 20:39:25 08/25/19 24 08/26/2023 COMP. METAB OLIC PANEL (14) protein, total 7.1 g/dL 6.0-8. 5 Not Available [facility] ([facility]) [address] [facility], [place], [address], 08/31/2023 20:39:25 08/25/19 24 08/26/2023 COMP. METAB OLIC PANEL (14) albumin 4.3 g/dL 3.9-4. 9 Not Available [facility] ([facility]) [address] [facility], [place], [address], 08/31/2023 20:39:25 08/25/19 24 08/26/2023 COMP. METAB OLIC PANEL (14) globulin, total 2.8 g/dL 1.5-4. 5 Not Available [facility] ([facility]) [address] [place], [address], 08/31/2023 20:39:25 08/25/19 24 08/26/2023 COMP. METAB OLIC PANEL (14) A/G ratio 1.5 1.2-2. 2 Not Available [facility] ([facility]) [address] [place], [address], 08/31/2023 20:39:25 08/25/19 24 08/26/2023 COMP. METAB OLIC PANEL (14) bilirubin, total 0.2 mg/dL 0.0-1. 2 Not Available [facility] ([facility]) [address] [facility] [place], [address], 08/31/2023 20:39:25 08/25/19 24 08/26/2023 COMP. METAB OLIC PANEL (14) alkaline phosphatase 116 IU/L 44-121 Not Available [facility] ([facility]) [address] [place], [address], 08/31/2023 20:39:25 08/25/19 24 08/26/2023 COMP. METAB OLIC PANEL (14) AST (SGOT) 22 IU/L 0-40 Not Available [facility] ([facility]) [address] [facility] [place], [address], 08/31/2023 20:39:25 08/25/19 24 08/26/2023 COMP. METAB OLIC PANEL (14) ALT (SGPT) 12 IU/L 0-32 Not Available [facility] ([facility]) [address] [place], [address], 08/31/2023 20:39:25 08/25/19 24 08/30/2023 VITAM IN E vitamin E(alpha tocopherol) 8.0 mg/L 5.9-19 .4 Not Available [facility] ([facility]) [address] [facility], [place], [address], 08/31/2023 20:39:26 08/25/19 24 08/30/2023 VITAM IN E vitamin E(gamma tocopherol) 0.8 mg/L 0.7-4. 9 Refer ence inter vals for alpha and gamma -toco phero l deter mined from [facility] and Nutri tion Exami natio n Surve y, 2004- 2005. Indiv idual s with alpha -toco phero l level s less than 5.0 mg/L are consi dered vitam in E defic ient. Not Available [facility] ([facility]) [address] [place], [address], 08/31/2023 20:39:26 08/25/19 24 08/26/2023 FOLAT E (FOLI C ACID) , SERUM folate (folic acid), serum 13.0 NG/mL >3.0 A serum folat e francia ntrat ion of less than 3.1 ng/mL is consi dered to repre sent clini omar defic iency . Not Available [facility] ([facility]) [address] [facility], [place], [address], 08/31/2023 20:39:27 08/25/19 24 08/30/2023 VITAM IN A, SERUM vitamin A 21.2 ug/dL 18.9-5 7.3 Refer ence inter vals for vitam in A deter mined from [facility] inter nal studi es. Indiv idual s with vitam in A less than 20 ug/dL are consi dered vitam in A defic ient and those with serum francia ntrat ions less than 10 ug/dL are consi dered sever daphne defic ient. This test was devel oped and its perfo rmanc e dana cteri stics deter mined by [facility]. It has not been clear ed or appro sylvester by the Food and Drug Admin istra tion. Not Available [facility] ([facility]) [address] [facility], [place], [address], 08/31/2023 20:39:28 08/25/19 24 08/26/2023 VITAM IN D, 25-HY DROXY vitamin D, 25-hydroxy 31.4 NG/mL 30.0-1 00.0 Vitam in D defic iency has been defin ed by the Insti tute of Medic ine and an Endoc rine Socie ty pract ice guide line as a level of serum 25-OH vitam in D less than 20 ng/mL (1,2) . The Endoc rine Socie ty went on to furth er defin e vitam in D insuf ficie ncy as a level betwe en 21 and 29 ng/mL (2). 1. IOM (Inst itute of Medic ine). 2009. Dieta ry refer ence intak es for calci um and D. Ada vieira [place]: The Natio nal [facility] Press . 2. Luis Carlos xiao MF, Binraffaele ey [place], Belkis off-F errar i NEVAREZ, et al. Evalu ation , treat ment, and preve ntion of vitam in D defic iency : an Endoc rine Socie ty clini omar pract ice guide line. JCEM. 2010; 96(7) :1911 -30. Not Available [facility] ([facility]) [address] [facility], [place], [address], 08/31/2023 20:39:28 08/25/19 24 08/29/2023 VITAM IN B1 (THIA MINE) , BLOOD vit. B1, whole blood 104.3 nmol/ L 66.5-2 00.0 Not Available [facility] ([facility]) [address] [facility] [place], [address], 08/31/2023 20:39:29 08/25/19 24 08/31/2023 METHY LMALO YVETTE ACID, SERUM methylmaloni c acid, serum 327 nmol/ L 0-378 Not Available [facility] ([facility]) [address] [facility], [place], [address], 08/31/2023 20:39:30 08/25/19 24 08/27/2023 COPPE R, SERUM OR PLASM A copper, serum or plasma 146 ug/dL 80-158 Detec tion Limit = 5 Not Available [facility] ([facility]) [address] [place], [address], 08/31/2023 20:39:31 08/25/19 24 08/27/2023 ZINC, PLASM A OR SERUM zinc, plasma or serum 73 ug/dL 44-115 Detec tion Limit = 5 Not Available [facility] ([facility]) [address] [facility], [place], [address], 08/31/2023 20:39:32 08/25/19 24 08/26/2023 PREAL BUMIN prealbumin 12 mg/dL 14-35 below low normal Not Available [facility] ([facility]) [address] [facility], [place], [address], 08/31/2023 20:39:32 08/25/19 24 08/28/2023 SELEN IUM, BLOOD selenium, blood 161 ug/L 100-34 0 Detec tion Limit = 10 Not Available [facility] ([facility]) [address] [facility], [place], [address], 08/31/2023 20:39:33 Result Notes None recorded. Problems Name Problem SNOMED Code Status Onset Date Resolution Date Notes Provider Name and Address Organization Details Recorded Time Anxiety 46725620 Active 2023 Carline Beardswort h null, [place] - [facility] - [place] & [place] 4 14:56:25 Irritable bowel syndrome 30367531 Active 2023 [place] Beardswort h [place], [place] [facility] [place] 14:56:37 Malignant neoplastic disease 332045409 Active 2023 [place] Beardswort h [place], [place] [facility] [place] 14:56:45 Fibromyalg ia 435626325 Active 2023 [place] Beardswort h [place] [facility] [place] 4 14:57:44 Migraine 84610420 Active 2023 [place] Beardswort [place] [facility] [place] 14:57:51 Hyperlipid emia 10666137 Active 2023 [place] Beardswort h [place], [place] [facility] [place] 4 14:57:57 Depressive disorder 45155332 Active 2023 [place] Beardswort [place] [facility] [place] 4 14:58:03 Sleep apnea 66428794 Active 2023 [place] Beardswort [place] [facility] [place] 4 14:58:21 Arthritis 6163506 Active 2023 [place] Beardswort [place] 4 14:58:26 Osteoporos is 07991042 Active 2023 [place] Beardswort [place] 4 14:58:35 Gastroesop hageal reflux disease 706970540 Active 2023 [place] Beardswort h [place] [facility] [place] 4 14:58:40 Chronic migraine without aura 5680369230854 05 Active 2023 Milli Walkerkins [place], [place] [facility] 4 17:49:42 Episodic migraine 6661420648010 06 Active 2023 Milli Cornejo [place], [place] [facility] [place] 4 17:49:50 Headache 22288194 Active 2023 Milli Cornejo [place] [facility] 4 17:49:57 Chronic intractabl e migraine without aura 7532943405569 05 Active 2021 Vivi Velez, DO [address] [facility], [place], [address] , [place] [facility] [place] & [place] 2 10:20:51 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 Procedures Surgical History Date Name Laterality Status Provider Name and Address Organization Details Recorded Time 2023 ESOPHAGOGASTRODUODENOSCOPY (SURG) completed Kelli Gray [place] [facility] - [place] & [place] 4 11:31:36 2020 repair of tendo achilles completed Bree Dalla [place] - [place] - [place] & [place] 2 16:28:15 2020 Gastric Bypass completed Bree Dalla [place] 2 16:27:48 2018 ankle reconstruction completed Bree Dalla [place] [facility] [place] 2 16:27:01 2015 Lumbar Spine Surgery completed Bree Dalla [place] [facility] [place] 2 16:21:33 EGD completed Jan Maldonado-Sindhu lashon [place] - [place] & [place] 3 10:36:17 Total hysterectomy completed Bree Dalla [place] [facility] - [place] & [place] 2 16:20:22 partial fasciectomy of plantar fascia completed Bree Dalla [place] 2 16:20:47 Knee Surgery completed Bree Dalla [place] [facility] [place] 2 16:21:04 exploratory laparotomy completed Earlene Allena [place] & [place] 2 16:21:59 Transfusion bld/bld compnt completed Bree Dalla [place] 2 16:26:38 Cholecystectomy completed Bree Dalla [place] & [place] 2 10:18:00 Imaging Results None recorded. Procedure Notes None recorded. Medical Equipment None Reported. Allergies Allergen ID Allergen Name Allergen Category Reaction Reaction Severity Criticality Documentation Date Start Date Code Code System Note Provider Name and Address Organization Details Recorded Time 960620 Non-stero idal anti-infl ammatory agent (product) medicatio n Not available Not available Not available 02/26/2024 42027 005 SNOMED Other react ions and sever ities : 'Adve rse react ion to subst ance' . Bree mcelroy, ANDREY - [facility] - [place] & [place] 4 10:32:00 [id number] hydromorp eladio medicatio n rash severe Not available 02/26/2024 3423 RxNorm Bree mcelroy, ANDREY - [facility] - [place] & [place] 4 10:32:00 [id number] ketorolac medicatio n rash Not available Not available 02/26/2024 45241 RxNorm Bree mcelroy, ANDREY - [facility] - [place] & [place] 4 10:32:00 412009 Milk (substan e) food,medi cation Not available Not available Not available 06/23/2024 72901 002 SNOMED Carline mcelroy, ANDREY - LPNT [facility] & [place] 4 14:55:40 Medications Name Sig Start Date Stop Date Status Note LastModified by Organization Details LastModified Time cyclobenzap rine 10 mg tablet TAKE ONE TABLET BY MOUTH THREE TIMES DAILY NEEDED 08/25 completed Not Available Not Available Not Available furosemide 40 mg tablet TAKE ONE TABLET BY MOUTH EVERY DAY active Not Available Not Available No t Available atorvastati n 40 mg tablet TAKE ONE TABLET BY MOUTH EVERY DAY 08/25 completed Not Available Not Available Not Available lamotrigine 150 mg tablet TAKE ONE TABLET BY MOUTH TWICE DAILY active Not Available Not Available No t Available lamotrigine 200 mg tablet TAKE ONE TABLET BY MOUTH TWICE DAILY active Not Available Not Available No t Available clindamycin HCl 300 mg capsule TAKE ONE CAPSULE BY MOUTH THREE TIMES DAILY FOR 7 DAYS. administe r with a large GLASS of water -- FINISH ALL MEDICINE -- 05/22 completed Not Available Not Available Not Available triazolam 0.25 mg tablet TAKE TWO TABLETS BY MOUTH 1 hour BEFORE dental appointme nt, THEN bring THE third tablet with you TO appointme nt 05/29 completed Not Available Not Available Not Available atorvastati n 10 mg tablet Take 1 tablet every day by oral route. 08/29 completed Not Available Not Available Not Available azithromyci n 250 mg tablet TAKE 2 TABLETS BY MOUTH ON DAY 1, THEN TAKE 1 TABLET DAILY ON DAYS 2-5 active Not Available Not Available No t Available fluconazole 150 mg tablet TAKE ONE TABLET BY MOUTH A ONE-TIME DOSE. MAY REPEAT DOSE AFTER 72 hours if symptoms persist 08/25 completed Not Available Not Available Not Available promethazin e 12.5 mg tablet TAKE ONE TABLET BY MOUTH EVERY 8 HOURS NEEDED MAY CAUSE DROWSINES S 02/25 completed Not Available Not Available Not Available prednisone 20 mg tablet TAKE ONE TABLET BY MOUTH TWICE DAILY --TAKE WITH FOOD-- 08/29 completed Not Available Not Available Not Available hydroxyzine pamoate 50 mg capsule TAKE ONE CAPSULE BY MOUTH EVERY 4 HOURS NEEDED active Not Available Not Available No t Available sulfamethox azole 800 mg-trimetho prim 160 mg tablet TAKE ONE TABLET BY MOUTH TWICE DAILY -- FINISH ALL MEDICINE -- 05/29 completed Not Available Not Available Not Available aspirin 81 mg tablet,ivan yed release TAKE ONE TABLET BY MOUTH EVERY DAY 05/22 completed Not Available Not Available Not Available tramadol 50 mg tablet TAKE ONE TABLET BY MOUTH EVERY 6 HOURS NEEDED FOR PAIN MAY CAUSE DROWSINES S 05/22 completed Not Available Not Available Not Available quetiapine 100 mg tablet TAKE ONE TABLET BY MOUTH AT BEDTIME active Not Available Not Available No t Available spironolact one 25 mg tablet TAKE ONE TABLET BY MOUTH EVERY DAY active Not Available Not Available No t Available pantoprazol e 20 mg tablet,ivan yed release Take 2 tablets twice a day by oral route. 02/27 completed Not Available Not Available Not Available alprazolam 0.5 mg tablet TAKE ONE TABLET BY MOUTH EVERY 8 HOURS NEEDED MAY CAUSE DROWSINES S active Not Available Not Available No t Available thiamine HCl (vitamin B1) 100 mg/mL injection solution 200mg IM today in office 02/25 completed Not Available Not Available Not Available propranolol 40 mg tablet TAKE ONE TABLET BY MOUTH TWICE DAILY 08/29 completed Not Available Not Available Not Available famotidine 20 mg tablet TAKE ONE TABLET BY MOUTH TWICE DAILY 08/25 completed Not Available Not Available Not Available dicyclomine 20 mg tablet Take 1 tablet 4 times a day by oral route for 30 days. 05/20 completed Not Available Not Available Not Available hydrocodone 7.5 mg-acetamin ophen 325 mg tablet TAKE ONE TABLET BY MOUTH EVERY 4 TO 6 HOURS NEEDED FOR post op pain MAY CAUSE DROWSINES S 05/22 completed Not Available Not Available Not Available pantoprazol e 40 mg tablet,ivan yed release TAKE ONE TABLET BY MOUTH TWICE DAILY active Not Available Not Available No t Available cyanocobala min (vit B-12) 1,000 mcg/mL injection solution inject 1 ML SUBCUTANE OUSLY ONCE WEEKLY 02/25 completed Not Available Not Available Not Available neomycin-po lymyxin-dex ameth 3.5 mg/mL-10,00 0 unit/mL-0.1 % eye drops INSTILL ONE DROP IN EACH EYE FOUR TIMES DAILY FOR FOUR DAYS 05/22 completed Not Available Not Available Not Available buspirone 10 mg tablet TAKE ONE TABLET BY MOUTH THREE TIMES DAILY 02/25 completed Not Available Not Available Not Available misoprostol 200 mcg tablet TAKE ONE TABLET BY MOUTH TWICE DAILY active Not Available Not Available No t Available lidocaine 5 % topical patch APPLY 1 PATCH TOPICALLY TO THE AFFECTED AREA ONCE DAILY AND LEAVE IN PLACE FOR 12 HOURS, THEN REMOVE AND LEAVE OFF FOR 12 HOURS active Not Available Not Available No t Available promethazin e 25 mg tablet TAKE ONE TABLET BY MOUTH THREE TIMES DAILY NEEDED FOR NAUSEA AND VOMITING MAY CAUSE DROWSINES S active Not Available Not Available No t Available BD Luer-Sharri Syringe 3 mL 25 gauge x 1 USE WEEKLY WITH B12 INJECTION S 06/23 completed Not Available Not Available Not Available ondansetron 4 mg disintegrat ing tablet DISSOLVE ONE TABLET IN MOUTH EVERY 6-8 HOURS NEEDED active Not Available Not Available No t Available fluticasone propionate 50 mcg/actuati on nasal spray,suspe nsion INSTILL 2 SPRAYS IN EACH NOSTRIL ONCE DAILY active Not Available Not Available No t Available colestipol 1 gram tablet TAKE ONE TABLET BY MOUTH ONCE DAILY DIRECTED 08/25 completed Not Available Not Available Not Available lamotrigine 100 mg tablet TAKE ONE TABLET BY MOUTH TWICE DAILY 02/25 completed Not Available Not Available Not Available metoclopram jose carlos 10 mg tablet TAKE ONE TABLET BY MOUTH TWICE DAILY 08/25 completed Not Available Not Available Not Available buspirone 15 mg tablet TAKE ONE TABLET BY MOUTH THREE TIMES DAILY active Not Available Not Available No t Available hydroxyzine pamoate 25 mg capsule 05/29 completed Not Available Not Available Not Available pregabalin 200 mg capsule TAKE ONE CAPSULE BY MOUTH TWICE DAILY MAY CAUSE DROWSINES S active Not Available Not Available No t Available Protonix 40 mg granules delayed-rel ease packet Take 1 packet every day by oral route. 05/29 completed Not Available Not Available Not Available desvenlafax ine succinate ER 50 mg tablet,exte nded release 24 hr TAKE ONE TABLET BY MOUTH EVERY MORNING 08/25 completed Not Available Not Available Not Available Feraheme 510 mg/17 mL (30 mg/mL) intravenous solution active Not Available Not Available Not Available Botox 200 unit injection Take 200 units every 3 months by injection route. 2023 active Not Available Not Available Not Avai lable cyanocobala min (vit B-12) 1,000 mcg/mL injection kit Inject 1 mL every week by subcutane ous route. 02/25 completed Not Available Not Available Not Available desvenlafax ine succinate ER 25 mg tablet,exte nded release 24 hr TAKE ONE TABLET BY MOUTH EVERY DAY IN THE MORNING 02/27 completed Not Available Not Available Not Available Entresto 24 mg-26 mg tablet TAKE ONE TABLET BY MOUTH TWICE DAILY 11/28 completed Not Available Not Available Not Available Ajovy Syringe 225 mg/1.5 mL subcutaneou s Inject every month by subcutane ous route. active Not Available Not Available No t Available Motegrity 1 mg tablet Take 2 tablets as needed by oral route for 30 days. 08/29 completed Not Available Not Available Not Available Vitals Date Recorded Body height Body mass index (BMI) Body weight Heart rate Body temperature Systolic blood pressure Diastolic blood pressure Provider Name and Address Organization Details Last Updated DateTime 4 175.26 cm 25.7 kg/m2 61104.0 7 g 90 /min 98.3 [degF] 110 mm[Hg] 70 mm[Hg] Abby Zhang BALDERAS - NT - [place] & [place] 4 14:45:58 Date Recorded Body height Body mass index (BMI) Body weight Heart rate Systolic blood pressure Diastolic blood pressure Provider Name and Address Organization Details Last Updated DateTime 4 175.26 cm 26.2 kg/m2 33470.5 7 g 80 /min 107 mm[Hg] 79 mm[Hg] Bree BALDERAS - LPNT [facility] & [place] 4 11:29:00 Date Recorded Body height Body mass index (BMI) Body weight Heart rate Systolic blood pressure Diastolic blood pressure Provider Name and Address Organization Details Last Updated DateTime 4 175.26 cm 24.6 kg/m2 07554.1 3 g 81 /min 122 mm[Hg] 80 mm[Hg] Bree BALDERAS - LPNT [facility] & [place] 4 10:10:48 Date Recorded Body height Body mass index (BMI) Body weight Heart rate Systolic blood pressure Diastolic blood pressure Provider Name and Address Organization Details Last Updated DateTime 4 175.26 cm 20.7 kg/m2 45857.9 3 g 75 /min 110 mm[Hg] 68 mm[Hg] Bree BALDERAS - NT [facility] & [place] 4 10:38:55 Date Recorded Body height Body mass index (BMI) Body weight Body temperature Oxygen saturation Oxygen saturation in Arterial blood by Pulse oximetry Heart rate Systolic blood pressure Diastolic blood pressure Provider Name and Address Organization Details Last Updated DateTime 4 175.26 cm 19.9 kg/m2 46841.9 7 g 97.1 [degF] 99 % 99 % 83 /min 121 mm[Hg] 80 mm[Hg] [facility] ANDREY [facility] & [place] 4 14:54:56 Social History Question Answer Notes LastModified by Organizat ion Details LastModified Time Tobacco Smoking Status Former Smoker no tobacco use x 7yr, currently daily mariuana use GIA Wright [address] , [place], [address], [facility] & [place] 09/10/2022 13:43:16 Do You Have An Advance Directive? No Information not available 08/29/2022 What Is Your Level Of Alcohol Consumption? None Information not available 05/19/2022 Are You Blind Or Do You Have Difficulty Seeing? No Information not available 08/29/2022 What Is Your Level Of Caffeine Consumption? Occasional Information not available 08/29/2022 Are You Currently Employed? No Disabled Information not available 08/29/2022 What Was The Date Of Your Most Recent Tobacco Screening? 05/22/2022 Information not available 08/29/2022 Do You Have Any Pets? Yes Information not available 08/29/2022 What Is Your Relationship Status? Single Engaged Information not available 11/27/2023 Are You Sexually Active? Yes Information not available 11/27/2023 Are You Passively Exposed To Smoke? Yes Information not available 08/29/2022 Do You Feel Stressed (tense, Restless, Nervous, Or Anxious, Or Unable To Sleep At Night)? [id number] Information not available 08/29/2022 Do You Use Any Illicit Or Recreational Drugs? No Information not available 05/19/2022 Are You Currently In School? No Some College Information not available 11/27/2023 Sex: Unknown Functional Status Question Answer Note LastModified by Organizat ion Details LastModified Time Do you have transportation difficulties? No Information not available 08/29/2022 Are you able to care for yourself? Yes lives in house with parents Information not available 08/29/2022 What is your exercise level? Occasional Information not available 08/29/2022 Mental Status None recorded. Family History Relationship Description Onset Age of this Age Resolved Age Notes LastModified by Organization Details LastModified Time Mother Malignant tumor of breast [email or web address] Not available 02/2022 08:21:12 Mother Allergy pt. added direct ly (05/22) [email or web address] Not available 05/22/2022 12:36:00 Father Malignant tumor of kidney [email or web address] Not available 02/2022 08:21:12 Father Disorder of thyroid gland ldalla Not available 2021 16:14:17 Father Malignant neoplastic disease pancre as ldalla Not available 08/28/2023 11:32:59 Father Carcinoma of urinary bladder ldalla Not available 2023 11:33:16 Maternal Grandfather Malignant neoplastic disease ldalla Not available 2023 11:32:59 Notes:endometrial cancer Medical History Condition Response Other Y Hospitalizations Y Migraines Y GI Problems Y Osteoporosis/Osteopenia Y Clotting Disorder Y Anemia Y Spine Problems Y Deep Vein Thrombosis Y Obstructive Sleep Apnea Y Neurological Problems Y Anxiety Disorder Y Arthritis Y Blood Clot Y Cancer Y Back Problems Y Reflux/GERD Y High Cholesterol Y Heart Disease Psychiatric/Mental Health Condition Y Rheumatoid Arthritis Y Fibromyalgia Y Headaches Y Gynecological History Statement/Question Response Abnormal Pap N Sexually Active? N Obstetrics History GPAL:G 0 P 0 0 0 0 Immunizations Vaccine Type Date Status Note Provider Nam e and Address Organization Details Recorded Time influenza, unspecified formulation 06/03/2023 completed Abby Holcomb [facility] & [place] 08/25/2023 14:44:46 Past Encounters Encounter ID Performer Location Encounter Start Date Encounter Closed Date Diagnosis/Indication Diagnosis SNOMED-CT Code Diagnosis ICD10 Code Diagnosis Note [id number] [facility] [address] [place] [address] 05/20/2022 10:08:09 05/20/2022 10:40:41 Chronic intractable migraine without aura 5436801321 56108 G43.719 She has done very well on the combinatio n of botox and ajovy but due to insurance change can no longer stay on this dual therapies. She will discontinu e the ajovy and I will have the office seek a new approval to continue with her botox treatments .In the meantime she is asked to keep a headache log. [id number] DO SHANNA Diehl [facility] [address] [place] [address] 05/23/2022 08:19:26 05/23/2022 08:47:35 Chronic intractable migraine without aura 1064078608 30767 G43.719 [id number] [facility] [address] [place] [address] 08/29/2022 08:21:08 08/29/2022 08:56:01 Chronic intractable migraine without aura [id number] 03667 G43.719 [id number] GIA Wright [facility] [address] [place] [address] 09/10/2022 13:07:45 09/10/2022 14:53:51 Gastrojejunal ulcer 13215193 K28.[address] Fitz Velez today. Long discussion today regarding needed improvemen t of nutrition and vitamin supplement ation. Patient advised to get in at least 70 g of protein. Patient met with dietitian for additional dietary education. Vitamin supplement ation reviewed with patient today.Dior ent is to continue b.i.d. pantoprazo le and misoprosto l t.i.d. she will have repeat upper endoscopy to check resolution of anastomoti c ulcer. History of bypass of stomach 220047053 Z98.84 Long discussion today regarding need for routine follow-up and vitamin checks. patient voices understand ing of needed routine follow-up and agrees to be compliant with this. We are checking full bariatric panel today. Iron deficiency 72601642 E61.1 Vitamin D deficiency 347 49857 E55.9 History of gastrectomy 966144489 Z90.3 Patient is status post bariatric surgery and at increased risk for vitamin deficienci es and malnutriti on. Bariatric vitamin panel ordered today. Patient will be contacted to correct any vitamin deficienci es. [id number] Vivi DO Agustin [facility] [address] [place] [address] 11/28/2022 08:14:33 11/28/2022 08:55:55 Chronic intractable migraine without aura 7525485556 26099 G43.719 Chronic condition that is stable. She is given Ajovy samples today. [id number] Vivi Velez DO [facility] [address] [place] [address] 02/27/2023 11:05:14 02/27/2023 11:33:40 Chronic intractable migraine without aura 2775167094 18547 G43.719 [id number] Vivi Velze DO [facility] [address] [place] [address] 05/29/2023 11:13:34 05/29/2023 11:43:52 Chronic intractable migraine without aura 4353325617 68269 G43.719 [id number] GIA Wright [facility] [address] [facility] [facility] [place] [address] 08/25/2023 14:29:17 08/25/2023 15:27:36 Vomiting 930727063 R11.10 Discussed previous endoscopy September 2022 showing jejunal ulcer and need for anastomoti c stretching . Patient did not return to clinic as advised for follow-up. She may have recurrent ulcer. We will schedule patient for upper GI with small-marietta l follow-thr ough and upper endoscopy with possible dilatation Will have patient sign a records release for ED visits and Dr. Farris's notes.Give n patient's frequent vomiting we will give patient B1 and B12 injection today. Discussed the importance of these vitamins. Advised patient take 200 mg thiamin p.o. daily.We are checking bariatric lab panel and will manage further deficienci es if foundPatie nt is to continue daily misoprosto l and PPIWe will see patient in follow-up after upper endoscopy and upper GI have been resulted. Nutritiona lly compromised 845286265 E63.9 Discussed need for increased nutritiona l intake. Advised patient attempt p.o. stage I/2 as tolerated with focus on 70 g of protein and a 1000 calories. We will have dietitian meet with patient today for additional dietary support. History of gastrectomy 663446326 Z90.3 Patient is status post bariatric surgery and at increased risk for vitamin deficienci es and malnutriti on. Bariatric vitamin panel ordered today. Patient will be contacted to correct any vitamin deficienci es. Vitamin D deficiency 347 82156 E55.9 Marijuana user [id number] F12.90 [id number] RUSSELL BREWSTER BS, RDN, LD [facility] [address] [facility] [address] [place] [address] 08/25/2023 15:31:07 08/25/2023 16:02:52 History of bypass of stomach 212774081 Z98.84 EGD ordered today, hx of jejunal anastomoti c ulcer [id number] DO SHANNA Diehl [facility] [address] [place] [address] 08/28/2023 11:21:49 08/28/2023 11:48:46 Chronic intractable migraine without aura 4665759316 20380 G43.368 [id number] Vivi Velez DO [facility] [address] [place] [address] 11/27/2023 10:00:13 11/27/2023 10:35:46 Chronic intractable migraine without aura 8112087016 00206 G43.719 She is given a sample of Ajovy todayAjovy quantity: 1, Lot #: [id number], Exp: 06/17/2025 [id number] Vivi Velez DO [facility] [address] [place] [address] 02/26/2024 10:25:30 02/26/2024 11:08:39 Chronic intractable migraine without aura 2325210170 24837 G43.719 She is given a sample of Ajovy todayAjovy quantity: 2, Lot #: [id number] , Exp: 12/2025 [id number] Ajit Grande MD [facility] [address] [place] [address] 06/23/2024 14:31:23 06/23/2024 14:58:43 Chronic migraine without aura 2146803395 77101 G43.709 - It appears that the intensity and frequency of migraine headaches has decreased since starting Botox injections .- Prior to starting Botox injections , the patient had a migraine headache daily, exceeding 15 migraine headache days per month, most of which lasted more than 4-6 hours despite abortive therapy.- Migraine headache has been refractory to conservati ve and pharmacolo gic approaches (prophylac tic and abortive). The patient has taken numerous medication s without significan t benefit or tolerabili ty.- It appears that migraine headache severely limits function and ability to perform ADLs or work, thereby negatively impacting quality of life.- The patient received Botox injections for migraine headache on 03/03/24, which was successful , as she noticed significan t (50% reduction in intensity and frequency of migraine headache and a decrease in headache hours per month by at least 100 hours) benefit following the procedure. - I think that the patient is a good candidate for quarterly Botox injections for migraine headache, so I will proceed with scheduling a repeat procedure. - I will plan on managing medication for migraine headache too, but the patient doesn't need refills at this time.- I will perform Botox injections for migraine headache on or after 07/04/24.- I will follow up with the patient for Botox injections . Episodic migraine 587117 4069 57614 G43.C1 Headache 93856852 R51.9 Health Concerns Section Related Observation LastModified by Organization Detai ls LastModified Time None Recorded Concern Status LastModified by Organization Details LastModified Time None Recorded Advance Directives Directive N: Payers Encounter Date Sequence Insurance Name Policy Number Policy Vaughn Covered Member ID Vaughn Member ID Guarantor Name 08/25/2023 2 [employer] [facility] (MEDICAID HMO) Alexei Macias [id number] Alexei Macias 08/25/2023 1 [place] - [place] PRIOR TO 2024 - [employer] [place] ( - PPO) Denilson Macias [id number] Alexei Macias 08/28/2023 2 [employer] [facility] (MEDICAID O) Alexeiroderick Macias [id number] Alexeiroderick Macias 08/28/2023 1 [place] - DOS PRIOR TO 2024 - [employer] [place] ( - PPO) Denilson Macias [id number] Alexei Macias 11/27/2023 2 [employer] [facility] (MEDICAID HMO) Alexei Macias [id number] Alexeiroderick Macias 11/27/2023 1 [place] - DOS PRIOR TO 2024 - [employer] [place] ( - PPO) Denilson Macias [id number] Alexei Macias 02/26/2024 2 [employer] [facility] (MEDICAID HMO) Alexei Macias [id number] Alexei Macias 02/26/2024 1 [place] - DOS PRIOR TO 2024 - [employer] - [place] ( - PPO) Denilson Macias [id number] Alexei Macias 06/23/2024 2 [facility] (MEDICAID HMO) Alexei Macias [id number] Alexei Macias 06/23/2024 1 [place] - DOS PRIOR TO 2024 - [employer] - [place] ( - PPO) Denilson Macias [id number] Alexei Macias Notes Date Note Type Note Provider Name and Address Organization Details Recorded Time 08/25/2023 text/html Patient is statu s post Keena-en-Y October [address] Velez. XIOMARA Aug Endoscopy Findings: Patient has a jejunal ulcer that appears to be improving from her previous endoscopy report done elsewhere. We will continue the medication and the other instructions that we have given her. We will have her follow back up in the office in 2 weeks and schedule a repeat endoscopy approximately 4-6 weeks from now. At that time if we see continued improvement of the ulcer I would like to attempt dilating her to see if this improves her dysphagia. ---patient did not return to clinic for follow-up as advised Patient returns to clinic today complaining of abdominal pain. She reports 2 areas of pain 1. Left upper quadrant and 2. Right mid quadrant. She reports continued vomiting and loss of appetite. She reports pain worsening over last 5 months. She has been seen in the ED. she is poor historian and can not tell me what workup has been done. She does not feel like she has had any imaging or labs recently. She does report she saw Dr. Maddox approximately 2 weeks ago and was told to stop Reglan and colestipol. Patient reports frequent vomiting. She states after only 3 bites substance comes back up. She has significant fatigue and feels like she is malnourished. She has smell and taste aversion.She is taking flintstone vitamin daily. Patient does give history of iron and vitamin-D deficiencyPatient previously gave history of daily marijuana use. Ja n 2022 OV _ 37-year-old female referred by Dr. Maddox for anastomotic ulcer. Patient is status post Keena-en-Y October [address] Velez. patient reports epigastric pain and poor p.o. intake with frequent vomiting times 2-3 months. She reports occasional hemoptysis. Dr. Maddox completed EGD 09/03/2022 and this showed large marginal/ anastomotic ulcer jejunal side encompassing 3/4 of the circumference of the lumen with deep ulceration and visible vessel.Patient is taking b.i.d. pantoprazole and misoprostol 3 times daily. She has been on this med x 2wks.She reports 15g protein daily.Patient denies tobacco use for 7 years but is using marijuana daily.She is currently taking multivitamin only. She has a history of vitamin-D B12 and iron deficiency. Last labs approximately 2 weeks ago at [facility]. Past history: March 06 upper GI normal. 02/10/21 patient was seen in the ED with CT showing cholelithiasis. Patient had cholecystectomy and upper endoscopy February 2021. No anastomotic ulcer seen at that time. Dr. Neal did upper endoscopy June 06 showing anastomotic ulcer. Followup via telehealth with his office Jun 2021 and pt hsa had no followup in either their or our office since [facility] [address], [place], [address], [place] - [place] - [place] & [place] 08/25/2023 15:42:54 08/25/2023 text/html RDN met w/ Alexei Macias who is s/p RNY (surgery date 2020) following their office visit regarding concern for recurring anastomotic ulcer. RDN reviewed diet stages 1 and 2 and advised ways to manage nausea. Pt expressed concerns that she is anorexic and also disclosed some concerns with memory issues. RDN scheduled pt to see psych in [facility] on Thursday to address these concerns. We discussed plant based protein options because she says she does not like dairy. Pt was verbally agreeable to recommendations, denied further questions/concerns, advised pt to reach out at any time if she needs additional support related to diet or other concerns. BMI: 25.7Current Weight: 174 lbsGoal Weight: n/a N/V/C/D: V - solids and thick liquids immediately after ingestionOther Symptoms: poor appetitePertinent Meds/Labs: starting phenegran today Physical activity: pt did not discloseFood records: not currently Estimated Current IntakeNotes: attempting PO no more than 2x/day, says she has not eaten in 5 days d/t how sick she becomes Fluid: very minimal oz/dSource: water RUSSELL BREWSTER BS, RDN, LD [address], [place], [address], [facility] - [place] - [place] & [place] 08/25/2023 16:37:41 08/28/2023 text/html Vikash comes in to day for routine BOTOX injections. She has done well since the last visit. She reports one bad migraine with prominent N/V since the last visit. She does still find the combination of ajovy and botox to work the best for her migraines. She remains sample dependant on her Ajovy. PRIOR VISIT: (05/29/23)Alexei comes in today for routine BOTOX injections. She has been doing well. The botox started wearing off about a week ago. She is still sample dependant on Ajovy but with this combination she has had almost no headaches. She does not have an abortive at home. In the past she really did not have much success with multiple triptans or the ubrelvy/nurtec. PRIOR VISIT: (02/27/23)Alexei comes in for her routine BOTOX injections. She had a really bad week of migraine about six weeks ago. This was around the time she found out her dad had cancer. She has recovered from that and her migraine control has been stable. She uses zofran when she gets a headache but due to GI issues really can not tolerate any abortives. She continues to also use ajovy but is sample dependant due to insurance. PRIOR VISIT: (11/28/22)Alexei comes in today for routine botox injections. She is doing well since the last visit. She notices the botox wear off a few weeks before her injections but the headaches are not as severe. She typically just lays down and takes some zofran to manage her migraine. She also still remains on ajovy but is sample dependant as insurance will not cover this class of medications for her while on botox.No new health concerns reported today. PRIOR VISIT: (08/29/22)Vikash comes in today for routine botox injections. She reports improvement in her migraines. She noticed it to start wearing off about two weeks ago and she has had several recent migraines. She has not found any abortives to really be that effective.She is still on ajovy but sample dependant as her insurance will not cover this medication. She tried to go off in the past but her migraines were much worse.She has recently been found to have cardiomyopathy and being worked up to find the cause. She has had more chest pains and fatigue in recent months. PRIOR VISIT: (05/23/22)Vikash comes in today for her routine botox injections. She had been without her botox for almost six months until we did her injections in February. She definitely has appreciated a decrease in her migraines from daily to every other day but not yet gotten back to her previous level of control when she was consistently having her injections every three months. She continues to also use ajovy which has helped improve her migraines as well.She has tried sumatriptan and rizatriptan in the past without good results. She has a migraine today. Vivi Velez, DO [address] [facility], [place], [address], [place] - [place] - [place] & [place] 08/28/2023 11:53:09 11/27/2023 text/html Vikash comes in to day for routine BOTOX injections. She has done very well since the last visit. Only a few migraines. She just goes to bed when she gets a migraine and sleeps it off. No new health issues to report. She had no side effects from her last injections. She is still sample dependant on Ajovy. PRIOR VISIT: (08/28/23)Vikash comes in today for routine BOTOX injections. She has done well since the last visit. She reports one bad migraine with prominent N/V since the last visit. She does still find the combination of ajovy and botox to work the best for her migraines. She remains sample dependant on her Ajovy. PRIOR VISIT: (05/29/23)Alexei comes in today for routine BOTOX injections. She has been doing well. The botox started wearing off about a week ago. She is still sample dependant on Ajovy but with this combination she has had almost no headaches. She does not have an abortive at home. In the past she really did not have much success with multiple triptans or the ubrelvy/nurtec. PRIOR VISIT: (02/27/23)Alexei comes in for her routine BOTOX injections. She had a really bad week of migraine about six weeks ago. This was around the time she found out her dad had cancer. She has recovered from that and her migraine control has been stable. She uses zofran when she gets a headache but due to GI issues really can not tolerate any abortives. She continues to also use ajovy but is sample dependant due to insurance. PRIOR VISIT: (11/28/22)Alexei comes in today for routine botox injections. She is doing well since the last visit. She notices the botox wear off a few weeks before her injections but the headaches are not as severe. She typically just lays down and takes some zofran to manage her migraine. She also still remains on ajovy but is sample dependant as insurance will not cover this class of medications for her while on botox.No new health concerns reported today. PRIOR VISIT: (08/29/22)Vikash comes in today for routine botox injections. She reports improvement in her migraines. She noticed it to start wearing off about two weeks ago and she has had several recent migraines. She has not found any abortives to really be that effective.She is still on ajovy but sample dependant as her insurance will not cover this medication. She tried to go off in the past but her migraines were much worse.She has recently been found to have cardiomyopathy and being worked up to find the cause. She has had more chest pains and fatigue in recent months. PRIOR VISIT: (05/23/22)Vikash comes in today for her routine botox injections. She had been without her botox for almost six months until we did her injections in February. She definitely has appreciated a decrease in her migraines from daily to every other day but not yet gotten back to her previous level of control when she was consistently having her injections every three months. She continues to also use ajovy which has helped improve her migraines as well.She has tried sumatriptan and rizatriptan in the past without good results. She has a migraine today. Vivi Velez, DO [address], [place], [address], [place] - [place] - [place] & [place] 11/27/2023 10:28:31 02/26/2024 text/html Alexei comes in t radames for her routine BOTOX injections. She continues to do very well with the botox and ajovy combination. She has only had two migraines in the last three months. PRIOR VISIT: (11/27/23)Vikash comes in today for routine BOTOX injections. She has done very well since the last visit. Only a few migraines. She just goes to bed when she gets a migraine and sleeps it off. No new health issues to report. She had no side effects from her last injections. She is still sample dependant on Ajovy. PRIOR VISIT: (08/28/23)Vikash comes in today for routine BOTOX injections. She has done well since the last visit. She reports one bad migraine with prominent N/V since the last visit. She does still find the combination of ajovy and botox to work the best for her migraines. She remains sample dependant on her Ajovy. PRIOR VISIT: (05/29/23)Alexei comes in today for routine BOTOX injections. She has been doing well. The botox started wearing off about a week ago. She is still sample dependant on Ajovy but with this combination she has had almost no headaches. She does not have an abortive at home. In the past she really did not have much success with multiple triptans or the ubrelvy/nurtec. PRIOR VISIT: (02/27/23)Alexei comes in for her routine BOTOX injections. She had a really bad week of migraine about six weeks ago. This was around the time she found out her dad had cancer. She has recovered from that and her migraine control has been stable. She uses zofran when she gets a headache but due to GI issues really can not tolerate any abortives. She continues to also use ajovy but is sample dependant due to insurance. PRIOR VISIT: (11/28/22)Alexei comes in today for routine botox injections. She is doing well since the last visit. She notices the botox wear off a few weeks before her injections but the headaches are not as severe. She typically just lays down and takes some zofran to manage her migraine. She also still remains on ajovy but is sample dependant as insurance will not cover this class of medications for her while on botox.No new health concerns reported today. PRIOR VISIT: (08/29/22)Vikash comes in today for routine botox injections. She reports improvement in her migraines. She noticed it to start wearing off about two weeks ago and she has had several recent migraines. She has not found any abortives to really be that effective.She is still on ajovy but sample dependant as her insurance will not cover this medication. She tried to go off in the past but her migraines were much worse.She has recently been found to have cardiomyopathy and being worked up to find the cause. She has had more chest pains and fatigue in recent months. PRIOR VISIT: (05/23/22)Vikash comes in today for her routine botox injections. She had been without her botox for almost six months until we did her injections in February. She definitely has appreciated a decrease in her migraines from daily to every other day but not yet gotten back to her previous level of control when she was consistently having her injections every three months. She continues to also use ajovy which has helped improve her migraines as well.She has tried sumatriptan and rizatriptan in the past without good results. She has a migraine today. Vivi Velez, DO [address] [facility], [place], [address], [place] - [place] - [place] & [place] 02/26/2024 12:14:39 06/23/2024 text/html Ms. Macias was ref erred by Dr. Velez (neurology) for management of chronic migraines. She denies DM, history of infection, or anti-coagulant use. The patient has been receiving Botox injections for migraines since 05/2018 which has been significantly helpful along with abortive medications in managing migraines long-term. She mentions that without Botox injections, she averages at least 16-18 migraines/month. The patient has tried/failed propranolol, Lyrica, rizatriptan, sumatriptan, Ubrelvy, and Nurtec. She states that she is currently on Ajovy which has been helpful along with Botox, but her insurance will not cover the injections so Dr. Velez has been providing her with samples as needed. Dr. Velez is leaving practice and the patient is wanting to establish care for continuance of Botox injections. Initial complaint: chronic migraines Onset: 5+ years Context: worsening over time Character: sharp, aching, throbbing Location: head Duration: constant with fluctuations Initial Intensity: 8/10 Worse: N/A Better: N/A Associated symptoms: Denies saddle anaesthesia, denies acute bowel/bladder changes, denies acute power loss. ADLs: The patient's pain interferes with daily chores, exercise, sleep, relationships, and walking. Current Pain Medications: Ajovy injections Prior Pain Medications: propranolol, Lyrica, rizatriptan, sumatriptan, Ubrelvy, Nurtec NSAIDS/OTC: mildly helpful Non-interventional Tx: none Physical Therapy: none Interventional Tx: none Surgery: none Imaging/Studies: none Ajit Grande MD [address] [facility], [place], [address], [facility] & [place] 06/24/2024 09:49:17 OBGyn Episode No OBEpisode recorded.
--- OUTSIDE RECORDS SUMMARY | 2024-11-28 14:03 | XMS_ITS | Continuity of Care Document ---
Author Name [facility] Organization [facility] Care Team Providers Care Can Pusher Name Role Phone [facility] Unavailable Unavailable Problems Combined list of problems from Department of [facility] and [facility] facilities. It does not include entries that were removed or entered in error. 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 It does not include entries that were removed or entered in error. Substance Category Reaction Severity Reaction type Status Date Reported Comments Source acetaminophen -propoxyphene Propensity to adverse reactions to substance Rash Active 6 Unknown Organizat ion Darvocet A500 Drug allergy Rash Active [facility] Dilaudid Drug allergy Rash Active [facility] HYDROmorphone Propensity to adverse reactions to substance Rash Active 6 Unknown Organizat ion ketorolac Propensity to adverse reactions to substance Rash Active 6 Unknown Organizat ion Toradol Drug allergy Rash Active [facility] Immunizations Combined list of available immunizations from the Department of Defense and Veterans Affairs facilities. 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 Grade Teacher Status Comments Source hepatitis A-hepatitis B vaccine 2016 Pedro xiong Arm [id number] 104 OrganizedWisdom ne complet ed hepatitis A-hepatit is B vaccine 03/27/17 Given Ambulat ory Pharmac y Influenza, trivlanent, adjuvanted, pf 2015 zzLef t Arm [id number] Seqirus complet ed Influenza , trivlanen t, adjuvante d, pf 07/09/16 Given Ambulat ory Pharmac y tetanus, diphtheria, acellular pertu is 2015 Kala Arm [id number] 115 GlaxoSmithKli ne complet ed tetanus, diphtheri a, acellular pertussis 07/09/16 Given Ambulat ory Pharmac y pneumococcal polysaccharid e, 23 valent 2015 zzLef t Arm [id number] [employer] complet ed pneumococ omar polysacch aride, 23 valent 07/09/16 Given Ambulat ory Pharmac y measles/mumps /rubella virus vaccine 2014 Body, whole TRANSCR IBED 03 complet ed measles/m umps/rube lla virus vaccine 08/06/15 Given Ambulat ory Pharmac y hepatitis A-hepatitis B vaccine 2014 Body, whole TRANSCR IBED 104 complet ed hepatitis A-hepatit is B vaccine 07/03/15 Given Ambulat ory Pharmac y varicella virus vaccine 2014 Body, whole TRANSCR IBED 21 complet ed varicella virus vaccine 07/03/15 Given Ambulat ory Pharmac y haemophilus b conjugate (PRP-T) vaccine 2014 Body, whole TRANSCR IBED 48 complet ed haemophil us b conjugate (PRP-T) vaccine 06/06/15 Given Ambulat ory Pharmac y Human Papillomaviru s,quadrivalen t(HPV4) 2014 Body, whole TRANSCR IBED 62 complet ed Human Papilloma virus,elizabeth drivalent (HPV4) 06/06/15 Given Ambulat ory Pharmac y poliovirus vaccine, inactivated 2014 Body, whole TRANSCR IBED 10 complet ed polioviru s vaccine, inactivat ed 06/06/15 Given Ambulat ory Pharmac y pneumococcal 13-valent conjugate (PCV13) 2014 Body, whole TRANSCR IBED 133 complet ed pneumococ omar 13-valent conjugate (PCV13) 06/05/15 Given Ambulat ory Pharmac y meningococcal A,C,Y,W-135 (MCV4P) 2014 Body, whole TRANSCR IBED 114 complet ed meningoco ccal A,C,Y,W-1 35 (MCV4P) 06/04/15 Given Ambulat ory Pharmac y hepatitis A-hepatitis B vaccine 2014 Body, whole TRANSCR IBED 104 complet ed hepatitis A-hepatit is B vaccine 06/04/15 Given Ambulat ory Pharmac y varicella virus vaccine 2014 Body, whole TRANSCR IBED 21 complet ed varicella virus vaccine 06/04/15 Given Ambulat ory Pharmac y measles/mumps /rubella virus vaccine 2014 Body, whole TRANSCR IBED 03 complet ed measles/m umps/rube lla virus vaccine 06/04/15 Given Ambulat ory Pharmac y influenza, seasonal, injectable-pf 2014 Body, whole TRANSCR IBED 140 complet ed influenza , seasonal, injectabl e-pf 05/30/15 Given Ambulat ory Pharmac y tetanus, diphtheria, acellular pertu is 2013 Body, whole TRANSCR IBED 115 complet ed tetanus, diphtheri a, acellular pertussis 04/07/14 Given Ambulat ory Pharmac y Vital Signs Combined list of inpatient and outpatient Vital Signs from Department of Defense and Veterans Affairs, ranging from 12 months to all on record, depending upon the facility. Vital Sign Value Date Comments Source Heart Rate Monitored 74 bpm 08/12/2017 07:34:[address] [place] [address] Heart Rate Monitored 96 bpm 08/12/2017 07:31:[address] [place] [address] Heart Rate Monitored 75 bpm 08/12/2017 05:58:[address] [place] [address] Respiratory Rate 16 br/min 09/01/2017 16:30:00 [facility] [place] Diastolic Blood Pressure 91 mm[Hg] 12/05/2017 03:33:[address] [place] [address] Systolic Blood Pressure 123 mm[Hg] 12/05/2017 03:33:[address] [place] [address] Peripheral Pulse Rate 92 bpm 12/05/2017 03:33:[address] [place] [address] Respiratory Rate 18 br/min 12/05/2017 03:33:[address] [place] [address] Mean Arterial Pressure, Calc 88 mm[Hg] 12/02/2017 20:31:[address] [place] [address] Efrem digan Temperature Tympanic 36.6 Berta 12/02/2017 20:31:[address] [place] [address] Systolic Blood Pressure 120 mm[Hg] 01/19/2018 18:01:00 [facility] Harpreet Diastolic Blood Pressure 89 mm[Hg] 01/19/2018 18:01:00 [facility] Harpreet Respiratory Rate 18 br/min 01/19/2018 18:01:00 [facility] Harpreet Temperature Tympanic 36.5 Berta 01/19/2018 18:01:00 [facility]12[facility] Harpreet Peripheral Pulse Rate 86 bpm 01/19/2018 18:01:00 [facility]12[facility] Harpreet Mean Arterial Pressure, Calc 99 mm[Hg] 01/19/2018 18:01:00 [place] [place] Efrem phillips Respiratory Rate 16 br/min 08/12/2017 09:18:00 [facility]12[facility] Harpreet Heart Rate Monitored 91 bpm 08/12/2017 09:18:00 [facility]12[facility] Harpreet Systolic Blood Pressure 133 mm[Hg] 02/03/2018 15:56:00 012[facility] [place]preet Diastolic Blood Pressure 87 mm[Hg] 02/03/2018 15:56:00 012[facility] Harpreet Mean Arterial Pressure, Calc 102 mm[Hg] 02/03/2018 15:56:00 012[facility] [place] Efrem phillips Peripheral Pulse Rate 107 bpm 02/03/2018 15:56:00 [facility]12[facility] Harpreet Mean Arterial Pressure, Calc 91 mm[Hg] 09/30/2017 22:07:00 IngridJeffery n Winner Temperature Tympanic 36 Berta 09/30/2017 22:07:00 1480CJaycob Winner Temperature Tympanic 36.2 Breta 07/23/2017 17:47:00 Ambulatory Pharmacy Heart Rate Monitored 81 bpm 08/12/2017 08:18:00 [facility]12[facility] Harpreet Respiratory Rate 16 br/min 08/12/2017 08:18:00 [facility]12[facility] Harpreet Heart Rate Monitored 79 bpm 08/12/2017 07:19:00 012[facility] Harpreet Heart Rate Monitored 79 bpm 08/12/2017 07:08:00 012[facility] Harpreet Systolic Blood Pressure 108 mm[Hg] 12/09/2017 21:49:00 1485[facility] [place]om[place]ord Diastolic Blood Pressure 76 mm[Hg] 12/09/2017 21:49:00 1485C-C McChord Respiratory Rate 17 br/min 12/09/2017 21:49:00 148YessiTio Gallegos Temperature Tympanic 36.7 Berta 12/09/2017 21:49:00 1485C-Tio Gallegos Mean Arterial Pressure, Calc 87 mm[Hg] 12/09/2017 21:49:00 1485C-C Bk Kapadia Peripheral Pulse Rate 100 bpm 12/09/2017 21:49:00 1485C-Tio Gallegos Respiratory Rate 18 br/min 01/25/2018 20:32:00 [facility]12[facility] Harpreet Temperature Tympanic 35.4 Berta 01/25/2018 20:32:00 0125[facility] [place]reet Peripheral Pulse Rate 95 bpm 01/25/2018 20:32:00 012[place] [place] Harpreet Mean Arterial Pressure, Calc 96 mm[Hg] 01/25/2018 20:32:00 0125[facility] [place] Efrem phillips Systolic Blood Pressure 137 mm[Hg] 01/25/2018 20:32:00 0125[facility] [place] Harpreet Diastolic Blood Pressure 76 mm[Hg] 01/25/2018 20:32:00 012[facility] [place] Harpreet Systolic Blood Pressure 125 mm[Hg] 02/25/2018 17:27:00 0125[facility] [place] Harpreet Diastolic Blood Pressure 85 mm[Hg] 02/25/2018 17:27:00 0125[facility] [place] Harpreet Temperature Tympanic 36.2 Berta 02/25/2018 17:27:00 0125[facility] [place] Harpreet Mean Arterial Pressure, Calc 98 mm[Hg] 02/25/2018 17:27:00 0125[facility] [place] Efrem phillips Peripheral Pulse Rate 90 bpm 02/25/2018 17:27:00 0125[facility] [place] Harpreet Temperature Tympanic 36.2 Berta 12/16/2017 15:20:00 1480C-Harpreet Winner Mean Arterial Pressure, Calc 80 mm[Hg] 12/16/2017 15:20:00 1480C-Williana n Winner Systolic Blood Pressure 118 mm[Hg] 12/16/2017 15:20:00 1480C-Harpreet Winner Diastolic Blood Pressure 61 mm[Hg] 12/16/2017 15:20:00 1480C-Harpreet Winner Peripheral Pulse Rate 82 bpm 12/16/2017 15:20:00 1480C-Harpreet Winner Heart Rate Monitored 74 bpm 08/12/2017 06:19:00 0125[facility] [place] Harpreet Diastolic Blood Pressure 94 mm[Hg] 12/05/2017 05:04:00 JUDY Mullins Systolic Blood Pressure 141 mm[Hg] 12/05/2017 05:04:00 012JACE Mullins Respiratory Rate 16 br/min 12/05/2017 05:04:00 012JACE Mullins Peripheral Pulse Rate 81 bpm 12/05/2017 05:04:00 JUDY Mullins Heart Rate Monitored 91 bpm 08/12/2017 07:01:00 012JACE Mullins Temperature Temporal Artery 36.6 Berta 08/12/2017 02:56:00 012JACE phillips Systolic Blood Pressure 190 mm[Hg] 01/22/2018 19:31:00 012OLGA Mullins Diastolic Blood Pressure 80 mm[Hg] 01/22/2018 19:31:00 012OLGA Mullins Temperature Tympanic 36.4 Berta 01/22/2018 19:31:00 012OLGA Mullins Peripheral Pulse Rate 82 bpm 01/22/2018 19:31:00 012OLGA Mullins Mean Arterial Pressure, Calc 117 mm[Hg] 01/22/2018 19:31:00 012OLGA phillips Temperature Temporal Artery 36.9 Berta 12/05/2017 00:42:00 012JACE phillips Respiratory Rate 20 br/min 12/05/2017 00:42:00 JUDY Mullins Mean Arterial Pressure, Calc 88 mm[Hg] 12/15/2017 16:21:00 012OLGA phillips Peripheral Pulse Rate 97 bpm 12/15/2017 16:21:00 012OLGA Mullins Systolic Blood Pressure 120 mm[Hg] 12/15/2017 16:21:00 012OLGA Mullins Diastolic Blood Pressure 72 mm[Hg] 12/15/2017 16:21:00 012OLGA Mullins Temperature Tympanic 36.4 Berta 12/15/2017 16:21:00 012OLGA Mullins Respiratory Rate 18 br/min 12/15/2017 16:21:00 012OLGA Mullins Procedures Combined list of: 1) Procedures from Department of Veterans Affairs facilities going back up to [facility] 18 months, not all VA non-surgical procedures are included; 2) All procedures from the Department of Defense facilities. Procedure Procedure Type Code Date Perfomer Comments Sourc e No data available for this section Ambulatory P harmacy Social History Combined list of available smoking, tobacco, and other social history from Department of Defense and Veterans Affairs facilities. Social History Type Response Date Comment Sourc e Smoking Status Former smoker, quit more than 30 days ago 02/25/2018 Unknown Organization Sex Representation Female (finding) 05/22/2017 Unknown Organization Sexual Orientation Ambula tory Pharmacy Gender identity Ambulator y Pharmacy Assessment and Plan Combined list of future care activities from Department of Defense and Veterans Affairs facilities (e.g., assessment and plan notes, appointments, orders, and referrals). Additional future care activities may be listed in the Plan of Care section. Result Assessment and Plan Date Source Assessment and Plan Extracted from:Title : Neurology Office Visit Note Author: SEUN TAPIA Date: 02/26/18 Cervico-occipital neuralgia ? 1.?Headaches. Given the positive response, I will?bring the patient back for scheduled?Botox dosing, which will be administered at a later time/date.?We discussed the possibility of changing or adding an oral preventative as an adjunct which helps synergistically but mutually decided to keep the current regimen unchanged. The abortives will remain unchanged as well. 2. Cervicalgia. ?I will proceed with Botox today. 3.?Occipital neuralgia. ?We will administer block admixed with Botox as discussed with pain management. 4. TMJ. ?She describes severe teeth clenching which seem to be triggering her migraines and that she may benefit from masseter and temporalis injections as well. The risks, benefits, side effects, and alternatives of therapy discussed with the patient, who verbalizes understanding. I spent 21 minutes of my 40 minutes [id number] with the patient discussing the examination, therapy, epidemiology, history, and natural course of the patient's condition to include the importance of sleep, weight loss, and stress avoidance; I also emphasized the need for regular q3 months dosing as well as the need for oral medications to help bridge the transient frequency increase between doses.?Thank you for allowing us to participate in the care of this patient. ? The pt gave informed consent and risk, benefits, and alternatives to this procedure were discussed. The pt was positioned in the sitting position and the target sites was identified. The area was prepped with an alcohol pad. 2cc of a 100u/cc dilution of Botox-A was administered intramuscularly at the following sites: ? 2.5u x 2 corrugators 5u x 5 frontalis 10u x 2 bilateral temporalis 15u x 2 splenius capitis 15u x 2 occipitalis 15u x 2 splenius cervicalis 10u x 2 cervical paraspinal ? Next, we proceeded with occipital nerve block. ?Area was prepped with an alcohol pad. 1.6cc of a?0.1cc dilution of?100u/cc of Botox-A was?admixed with 0.5 cc lidocaine/Marcaine/Kenalog was?administered intramuscularly?at the bilateral greater occipital notch into 4 separate injections each. ? After the nerve block, the patient was in extreme pain and thus we did not proceed with TMJ injections but will entertain at the next session. ?I counseled her that this may provoke a more severe migraine and she is used to following Botox. ? ? The patient tolerated the procedure well.? ? Seun Tapia MD [facility], Interventional Neuroradiology Staff [facility] ? Ordered: onabotulinumtoxinA, 200 units, IntraMuscular, Injection, Once, First Dose: 02/25/2018 16:00:00 PDT, Stop Date: 02/25/2018 16:00:00 PDT CHEMODEN,1 EXT;EA ADD,1-4 MUSC 30552 N Block Inj, Occipital 34625 ? Common migraine without aura Ordered: onabotulinumtoxinA, 200 units, IntraMuscular, Injection, Once, First Dose: 02/25/2018 16:00:00 PDT, Stop Date: 02/25/2018 16:00:00 PDT Chemodenerv Musc Migraine 12467 ? Extracted from:Title: Office Clinic Note Author: JACOBY JONAS Date: 01/26/18 1.?Device status Ordered: Ankle foot orthosis, ankle gauntlet L1902 Foot, arch support, removable, premolded, longitudinal L3040 Orthotic Mgmt+Trainj Uxtr Lxtr+/Trnk Ea 15 Min 55021 ? 2.?Tibialis tendonitis Ordered: Ankle foot orthosis, ankle gauntlet L1902 Foot, arch support, removable, premolded, longitudinal L3040 Orthotic Mgmt+Trainj Uxtr Lxtr+/Trnk Ea 15 Min 02402 ? 3.?Tibialis tendonitis Ordered: Ankle foot orthosis, ankle gauntlet L1902 Foot, arch support, removable, premolded, longitudinal L3040 Orthotic Mgmt+Trainj Uxtr Lxtr+/Trnk Ea 15 Min 81492 ? Extracted from:Title: Neurology Office Visit Note Author: SEUN TAPIA Date: 01/22/18 Cervico-occipital neuralgia ? 1.?Headaches. Given the positive response?other than the most recent dose, I will?continue her Botox regimen in one month.?I also discussed the possibility of having a bad? b atch ? of Botox which I have seen in the past. 2. ?Cervicalgia. ?I will continue her Botox regimen in one month. 3. ?Possible occipital neuralgia. ?I will try a nerve block today and if this benefits her, we will continue them at the same time as her Botox injections. The risks, benefits, side effects, and alternatives of therapy discussed with the patient, who verbalizes understanding. I spent 21 minutes of my 40 minutes [id number] with the patient discussing the examination, therapy, epidemiology, history, and natural course of the patient's condition to include the importance of sleep, weight loss, and stress avoidance; I also emphasized the need for regular q3 months dosing as well as the need for oral medications to help bridge the transient frequency increase between doses. Thank you for allowing us to participate in the care of this patient. The pt gave informed consent and risk, benefits, and alternatives to this procedure were discussed. The pt was positioned in the sitting position and the target sites was identified. The area was prepped with an alcohol pad. 1cc of a?1.5 cc mixture of 1:1:1 lidocaine: Marcaine: Kenalog?was administered?at the greater occipital notch bilaterally spread equally into 4 quadrants. ? ? The patient tolerated the procedure well.? ? MD NICCI Cox, Interventional Neuroradiology ? Ordered: Bilateral N Block Inj, Occipital 37473 Office Visit Level 4 Est 89711 ? Extracted from:Title: General Surgery Clinic Note Author: SOO CERRATO Date: 12/15/17 32yoF with non-reducible LLQ mass. Potential hernia given previous surgery, but current mass is lateral to previous incision. Also potential for scar endometriosis, but acute onset would be atypical. No concern for strangulation/incarceration.?Will obtain CT abdomen/pelvis to better characterize mass. Extracted from:Title: Office Clinic Note Author: JOSE PAZ Date: 12/09/17 1.?Low back pain Chronic Will place new referral back to Neurosurgery. Continue all routine meds. Refill Lidoderm 5% patches. Plan of care developed with the patient incorporates patient s /caregiver(s) preferences and functional lifestyle goals and includes evidenced based treatment goals. Assessed patient for barriers to care, medication misunderstandings or compliance issues. As appropriate, instructions on disease management and follow up were provided. Assessed patient for care management support need. Per our clinic standard, all medications were reviewed and reconciled. Verbal and written instructions regarding dose, route, frequency, indication, administration, and side effects will be provided by the clinic pharmacy for all new prescriptions. Written care plan provided to patient. Patient verbalized understanding. ? Ordered: Office Visit Level 4 Est 46590 ? 2.?Pendulous breast Bilateral. Will refer back to Plastics Clinic for further evaluation and treatment. Ordered: Office Visit Level 4 Est 52070 ? 3.?Bilateral foot pain Chronic. Will get bilateral foot xrays and will refer patient to Podiatry Clinic. patient is aware that her weight is a contributing factor. ? Jose Paz, COMBINATION WELDER, ELECTRONEURODIAGNOSTIC TECHNICIAN ? Ordered: Office Visit Level 4 Est 48004 XR Foot 2 Views Bilateral ? Orders: lidocaine topical, 1 patches, Topical, Daily, Leave on for up to 12 hours within a 24 hour period (12 hours on, 12 hours off), # 30 patches, 5 total refill(s), [facility] pharmacy dispense (Rx) [Not filled] Medical Referral Request Medical Referral Request Medical Referral Request Extracted from:Title: Botox injections for migraine Author: NICHOLE AU Date: 12/03/17 1.?Common migraine without aura OnabotulinumtoxinA(Botox) injections Lot #: [id number]?Expiration Date: MAR 2020 Concentration: 0.1ml = 5 units, no EMG guidance Muscle?Right ?Left Procerus?midline 5 Boat Worker?5 units?5 units Frontalis?5 units x 2?5 units x 2 Temporalis?5 units x 4?5 units x 4 Occipitalis?5 units x 3?5 units x 3 Cervical Paraspinal(sup)?5 units x 2?5 units x 2 Trapezius?5 units x 3 ?5 units x 3 Total Units injected: 155 Patient tolerated procedure well without complications. -Patient will call to schedule follow up Botox injections in three months with Dr Tapia. ? Ordered: onabotulinumtoxinA, 155 units, IntraMuscular, Injection, Once, First Dose: 12/03/2017 15:00:00 PDT, Stop Date: 12/03/2017 15:00:00 PDT Chemodenerv Musc Migraine 98619 Office Visit Level 2 Est 59789 ? Extracted from:Title: Clinical Pharmacy Note Bariatric Pathway Author: JONH JACOBSEN Date: 08/06/17 1.?Drug monitoring done As part of the medication review for bariatric surgery pathway, the following was discussed: ??Patient identified by full name and . Patient is enrolled in the Bariatric Pathway. ??Identification of long acting medications which may be safely crushed vs. conversion to immediate release preparations: none ??Avoidance of any of NSAIDS/URIAS II, including OTC preparations and use of alternatives if required counseled on pre-surgery instructions of discontinuing these types medication. Counseled to use Acetaminophen for pain and to follow the Surgeon s instruction for post-operative pain care. ?? Discussion of potential problems with swallowing tablets and alternatives: o?Patient takes several medications that should not be crushed or altered Bupropion SR, Ibandronate (Boniva Eq) and Ferrous sulfate EC, o?Patient takes Ferrous sulfate, folic acid and MNV if not tolerable, immediate release liquid formulations are available. o?Patient takes Calcium carbonate data suggest the absorption is impaired when stomach acidity is decreased. Recommend using calcium citrate. o?Mental health RYGB patients who require medication for psychiatric illnesses may require more diligent monitoring to ensure correct dosing of their medication. Patient was instructed to report any behavioral changes to her PCM/Surgeon. o?Patient was instructed to report any swallowing difficulties to their PCM/Surgeon. ??Discussion of potential problem with dumping syndrome patient instructed to minimize or avoid the use of OTC products with sucrose, corn syrup, maltose, fructose, lactose, honey and mannitol. ??Post bariatric surgery requirements for supplementation: calcium supplements (calcium citrate), fat-soluble vitamins (vitamin A, D); folic acid, thiamine, iron, selenium, zinc. ??Discussed Plan with patient: o?Patient encouraged to follow medication instructions per Surgeon/PCM o?Patient encouraged to report any post operatively behavioral changes to her PCM/Surgeon o?Continue to maximize on healthy lifestyles behaviors o?Follow-up as required per Bariatric Surgery pathway. o?All questions answered and patient verbalizes understanding ?Total time spent with the patient was 20 minutes. ? Ordered: Medication Therapy Each Additional 15 Min 67155 Medication Therapy Initial 15 Min New Patient 85720 ? Extracted from:Title: Neurology Office Visit Note Author: REGINA SEUN Date: 07/24/17 Common migraine without aura ? Impression and Plan: 1. Headaches. Despite the poor interval, I will give Botox today. Since she has been on Botox for a while, I will try re-introducing Maxalt as I discussed more triptan efficacy when prophylactic control is improved and she is agreeable. I instructed her to take those when she has the b ubble? sensation. For the pm headaches, I gave her Phenergan and Benadryl to take together before she goes to bed. This will improve sleep and hopefully abort synergistically. 2. Stress and depression: We discussed how depression often manifests as migraines through a unifying serotonergic mechanisms and how anti-depressants can sometimes improve migraines as preventatives. At this time the patient declines adding another anti-depressant, but will note in headache diary provocation of migraines with stressors. The risks, benefits, side effects, and alternatives of therapy discussed with the patient, who verbalizes understanding. I spent 21 minutes of my 40 minutes [id number] with the patient discussing the examination, therapy, epidemiology, history, and natural course of the patient's condition to include the importance of sleep, weight loss, and stress avoidance; I also emphasized the need for regular q3 months dosing as well as the need for oral medications to help bridge the transient frequency increase between doses. Thank you for allowing us to participate in the care of this patient. ? The pt gave informed consent and risk, benefits, and alternatives to this procedure were discussed. The pt was positioned in the sitting position and the target sites was identified. The area was prepped with an alcohol pad. 2cc of a 100u/cc dilution of Botox-A was administered intramuscularly at the following sites: ??? 2.5u x 2 corrugators 5u x 5 frontalis 10u x 2 bilateral temporalis 15u x 2 splenius capitis 15u x 2 occipitalis 15u x 2 splenius cervicalis 20u x 2 cervical paraspinal ??? The patient tolerated the procedure well. ??? Seun Tapia MD Interventional Neuroradiology ? Extracted from:Title: Heel Pain, LEFT Author: JESUS ROBLES Date: 07/20/17 1.?Heel pain ?Tx acute pain w/ naprosyn (pt has used before and causes no issue despite h/o allergy to toredol.? X-ray today - R/O fx.? If neg will consider heel cups or podiatry referral. Ordered: naproxen, 1 tabs, Oral, BID, # 30 tabs, 0 total refill(s), 08/20/2017, [facility] pharmacy dispense (Rx) [Not filled] XR Calcaneous Left ? 11/28/[address] [place] [address] Assessment and Plan Extracted from:Title : Neurology Office Visit Note Author: SEUN TAPIA Date: 02/26/18 Cervico-occipital neuralgia ? 1.?Headaches. Given the positive response, I will?bring the patient back for scheduled?Botox dosing, which will be administered at a later time/date.?We discussed the possibility of changing or adding an oral preventative as an adjunct which helps synergistically but mutually decided to keep the current regimen unchanged. The abortives will remain unchanged as well. 2. Cervicalgia. ?I will proceed with Botox today. 3.?Occipital neuralgia. ?We will administer block admixed with Botox as discussed with pain management. 4. TMJ. ?She describes severe teeth clenching which seem to be triggering her migraines and that she may benefit from masseter and temporalis injections as well. The risks, benefits, side effects, and alternatives of therapy discussed with the patient, who verbalizes understanding. I spent 21 minutes of my 40 minutes [id number] with the patient discussing the examination, therapy, epidemiology, history, and natural course of the patient's condition to include the importance of sleep, weight loss, and stress avoidance; I also emphasized the need for regular q3 months dosing as well as the need for oral medications to help bridge the transient frequency increase between doses.?Thank you for allowing us to participate in the care of this patient. ? The pt gave informed consent and risk, benefits, and alternatives to this procedure were discussed. The pt was positioned in the sitting position and the target sites was identified. The area was prepped with an alcohol pad. 2cc of a 100u/cc dilution of Botox-A was administered intramuscularly at the following sites: ? 2.5u x 2 corrugators 5u x 5 frontalis 10u x 2 bilateral temporalis 15u x 2 splenius capitis 15u x 2 occipitalis 15u x 2 splenius cervicalis 10u x 2 cervical paraspinal ? Next, we proceeded with occipital nerve block. ?Area was prepped with an alcohol pad. 1.6cc of a?0.1cc dilution of?100u/cc of Botox-A was?admixed with 0.5 cc lidocaine/Marcaine/Kenalog was?administered intramuscularly?at the bilateral greater occipital notch into 4 separate injections each. ? After the nerve block, the patient was in extreme pain and thus we did not proceed with TMJ injections but will entertain at the next session. ?I counseled her that this may provoke a more severe migraine and she is used to following Botox. ? ? The patient tolerated the procedure well.? ? MD NICCI Cox, Interventional Neuroradiology Staff [facility] ? Ordered: onabotulinumtoxinA, 200 units, IntraMuscular, Injection, Once, First Dose: 02/25/2018 16:00:00 PDT, Stop Date: 02/25/2018 16:00:00 PDT CHEMODEN,1 EXT;EA ADD,1-4 [facility] 07662 N Block Inj, Occipital 14869 ? Common migraine without aura Ordered: onabotulinumtoxinA, 200 units, IntraMuscular, Injection, Once, First Dose: 02/25/2018 16:00:00 PDT, Stop Date: 02/25/2018 16:00:00 PDT [facility] Musc Migraine 86415 ? Extracted from:Title: Office Clinic Note Author: JACOBY JONAS Date: 01/26/18 1.?Device status Ordered: Ankle foot orthosis, ankle gauntlet L1902 Foot, arch support, removable, premolded, longitudinal L3040 Orthotic Mgmt+Trainj Uxtr Lxtr+/Trnk Ea 15 Min 10889 ? 2.?Tibialis tendonitis Ordered: Ankle foot orthosis, ankle gauntlet L1902 Foot, arch support, removable, premolded, longitudinal L3040 Orthotic Mgmt+Trainj Uxtr Lxtr+/Trnk Ea 15 Min 55290 ? 3.?Tibialis tendonitis Ordered: Ankle foot orthosis, ankle gauntlet L1902 Foot, arch support, removable, premolded, longitudinal L3040 Orthotic Mgmt+Trainj Uxtr Lxtr+/Trnk Ea 15 Min 19843 ? Extracted from:Title: Neurology Office Visit Note Author: SEUN TAPIA Date: 01/22/18 Cervico-occipital neuralgia ? 1.?Headaches. Given the positive response?other than the most recent dose, I will?continue her Botox regimen in one month.?I also discussed the possibility of having a bad? b atch ? of Botox which I have seen in the past. 2. ?Cervicalgia. ?I will continue her Botox regimen in one month. 3. ?Possible occipital neuralgia. ?I will try a nerve block today and if this benefits her, we will continue them at the same time as her Botox injections. The risks, benefits, side effects, and alternatives of therapy discussed with the patient, who verbalizes understanding. I spent 21 minutes of my 40 minutes [id number] with the patient discussing the examination, therapy, epidemiology, history, and natural course of the patient's condition to include the importance of sleep, weight loss, and stress avoidance; I also emphasized the need for regular q3 months dosing as well as the need for oral medications to help bridge the transient frequency increase between doses. Thank you for allowing us to participate in the care of this patient. The pt gave informed consent and risk, benefits, and alternatives to this procedure were discussed. The pt was positioned in the sitting position and the target sites was identified. The area was prepped with an alcohol pad. 1cc of a?1.5 cc mixture of 1:1:1 lidocaine: Marcaine: Kenalog?was administered?at the greater occipital notch bilaterally spread equally into 4 quadrants. ? ? The patient tolerated the procedure well.? ? Seun Tapia MD [facility] Interventional Neuroradiology ? Ordered: Bilateral N Block Inj, Occipital 37844 Office Visit Level 4 Est 53287 ? Extracted from:Title: General Surgery Clinic Note Author: SOO CERRATO Date: 12/15/17 32yoF with non-reducible LLQ mass. Potential hernia given previous surgery, but current mass is lateral to previous incision. Also potential for scar endometriosis, but acute onset would be atypical. No concern for strangulation/incarceration.?Will obtain CT abdomen/pelvis to better characterize mass. Extracted from:Title: Office Clinic Note Author: JOSE PAZ Date: 12/09/17 1.?Low back pain Chronic Will place new referral back to Neurosurgery. Continue all routine meds. Refill Lidoderm 5% patches. Plan of care developed with the patient incorporates patient s /caregiver(s) preferences and functional lifestyle goals and includes evidenced based treatment goals. Assessed patient for barriers to care, medication misunderstandings or compliance issues. As appropriate, instructions on disease management and follow up were provided. Assessed patient for care management support need. Per our clinic standard, all medications were reviewed and reconciled. Verbal and written instructions regarding dose, route, frequency, indication, administration, and side effects will be provided by the clinic pharmacy for all new prescriptions. Written care plan provided to patient. Patient verbalized understanding. ? Ordered: Office Visit Level 4 Est 28698 ? 2.?Pendulous breast Bilateral. Will refer back to Plastics Clinic for further evaluation and treatment. Ordered: Office Visit Level 4 Est 63578 ? 3.?Bilateral foot pain Chronic. Will get bilateral foot xrays and will refer patient to Podiatry Clinic. patient is aware that her weight is a contributing factor. ? Jose Paz, COMBINATION WELDER, ELECTRONEURODIAGNOSTIC TECHNICIAN ? Ordered: Office Visit Level 4 Est 51246 XR Foot 2 Views Bilateral ? Orders: lidocaine topical, 1 patches, Topical, Daily, Leave on for up to 12 hours within a 24 hour period (12 hours on, 12 hours off), # 30 patches, 5 total refill(s), [facility] pharmacy dispense (Rx) [Not filled] Medical Referral Request Medical Referral Request Medical Referral Request Extracted from:Title: Botox injections for migraine Author: NICHOLE AU Date: 12/03/17 1.?Common migraine without aura OnabotulinumtoxinA(Botox) injections Lot #: [id number] C3?Expiration Date: MAR 2020 Concentration: 0.1ml = 5 units, no EMG guidance Muscle?Right ?Left Procerus?midline 5 Boat Worker?5 units?5 units Frontalis?5 units x 2?5 units x 2 Temporalis?5 units x 4?5 units x 4 Occipitalis?5 units x 3?5 units x 3 Cervical Paraspinal(sup)?5 units x 2?5 units x 2 Trapezius?5 units x 3 ?5 units x 3 Total Units injected: 155 Patient tolerated procedure well without complications. -Patient will call to schedule follow up Botox injections in three months with Dr Tapia. ? Ordered: onabotulinumtoxinA, 155 units, IntraMuscular, Injection, Once, First Dose: 12/03/2017 15:00:00 PDT, Stop Date: 12/03/2017 15:00:00 PDT [facility] Musc Migraine 23452 Office Visit Level 2 Est 11182 ? Extracted from:Title: Clinical Pharmacy Note Bariatric Pathway Author: JONH JACOBSEN Date: 08/06/17 1.?Drug monitoring done As part of the medication review for bariatric surgery pathway, the following was discussed: ??Patient identified by full name and . Patient is enrolled in the Bariatric Pathway. ??Identification of long acting medications which may be safely crushed vs. conversion to immediate release preparations: none ??Avoidance of any of NSAIDS/URIAS II, including OTC preparations and use of alternatives if required counseled on pre-surgery instructions of discontinuing these types medication. Counseled to use Acetaminophen for pain and to follow the Surgeon s instruction for post-operative pain care. ?? Discussion of potential problems with swallowing tablets and alternatives: o?Patient takes several medications that should not be crushed or altered Bupropion SR, Ibandronate (Boniva Eq) and Ferrous sulfate EC, o?Patient takes Ferrous sulfate, folic acid and MNV if not tolerable, immediate release liquid formulations are available. o?Patient takes Calcium carbonate data suggest the absorption is impaired when stomach acidity is decreased. Recommend using calcium citrate. o?Mental health RYGB patients who require medication for psychiatric illnesses may require more diligent monitoring to ensure correct dosing of their medication. Patient was instructed to report any behavioral changes to her PCM/Surgeon. o?Patient was instructed to report any swallowing difficulties to their PCM/Surgeon. ??Discussion of potential problem with dumping syndrome patient instructed to minimize or avoid the use of OTC products with sucrose, corn syrup, maltose, fructose, lactose, honey and mannitol. ??Post bariatric surgery requirements for supplementation: calcium supplements (calcium citrate), fat-soluble vitamins (vitamin A, D); folic acid, thiamine, iron, selenium, zinc. ??Discussed Plan with patient: o?Patient encouraged to follow medication instructions per Surgeon/PCM o?Patient encouraged to report any post operatively behavioral changes to her PCM/Surgeon o?Continue to maximize on healthy lifestyles behaviors o?Follow-up as required per Bariatric Surgery pathway. o?All questions answered and patient verbalizes understanding ?Total time spent with the patient was 20 minutes. ? Ordered: Medication Therapy Each Additional 15 Min 11240 Medication Therapy Initial 15 Min New Patient 28923 ? Extracted from:Title: Neurology Office Visit Note Author: SEUN TAPIA Date: 07/24/17 Common migraine without aura ? Impression and Plan: 1. Headaches. Despite the poor interval, I will give Botox today. Since she has been on Botox for a while, I will try re-introducing Maxalt as I discussed more triptan efficacy when prophylactic control is improved and she is agreeable. I instructed her to take those when she has the b ubble? sensation. For the pm headaches, I gave her Phenergan and Benadryl to take together before she goes to bed. This will improve sleep and hopefully abort synergistically. 2. Stress and depression: We discussed how depression often manifests as migraines through a unifying serotonergic mechanisms and how anti-depressants can sometimes improve migraines as preventatives. At this time the patient declines adding another anti-depressant, but will note in headache diary provocation of migraines with stressors. The risks, benefits, side effects, and alternatives of therapy discussed with the patient, who verbalizes understanding. I spent 21 minutes of my 40 minutes [id number]-uguu with the patient discussing the examination, therapy, epidemiology, history, and natural course of the patient's condition to include the importance of sleep, weight loss, and stress avoidance; I also emphasized the need for regular q3 months dosing as well as the need for oral medications to help bridge the transient frequency increase between doses. Thank you for allowing us to participate in the care of this patient. ? The pt gave informed consent and risk, benefits, and alternatives to this procedure were discussed. The pt was positioned in the sitting position and the target sites was identified. The area was prepped with an alcohol pad. 2cc of a 100u/cc dilution of Botox-A was administered intramuscularly at the following sites: ??? 2.5u x 2 corrugators 5u x 5 frontalis 10u x 2 bilateral temporalis 15u x 2 splenius capitis 15u x 2 occipitalis 15u x 2 splenius cervicalis 20u x 2 cervical paraspinal ??? The patient tolerated the procedure well. ??? Seun Tapia MD Interventional Neuroradiology ? Extracted from:Title: Heel Pain, LEFT Author: JESUS ROBLES Date: 07/20/17 1.?Heel pain ?Tx acute pain w/ naprosyn (pt has used before and causes no issue despite h/o allergy to toredol.? X-ray today - R/O fx.? If neg will consider heel cups or podiatry referral. Ordered: naproxen, 1 tabs, Oral, BID, # 30 tabs, 0 total refill(s), 08/20/2017, [facility] pharmacy dispense (Rx) [Not filled] XR Calcaneous Left ? 11/28/[address] [place] [address] Functional Status Combined list of recent functional and cognitive assessments recorded at [employer] [facility] Functional [place] Measurement (FIM) Scale: 1 = Total Assistance (Subject = 0% +), 2 = Maximal Assistance (Subject = 25% +), 3 = Moderate Assistance (Subject = 50% +), 4 = Minimal Assistance (Subject = 75% +), 5 = Supervision, 6 = Modified [place] (Device), 7 = Complete [place] (Timely, Safely). Assessment Date/Time Source Assessment Type Assessment Skill Assessment Score Assessment Details FUNCTIONAL 12/16/17 Home Dietary Supplements Captured Yes
[2024-11-28] MEDS: SODIUM CHLORIDE 0.9% 10ML FLUSH SYRINGE 10 ML IV (14:22)
[2024-11-28] MEDS: FERRIC CARBOXYMALTOSE 750 MG in 0.9 % SODIUM CHLORIDE 250 ML 530 MG IV (14:22)
[2024-11-28] MEDS: SODIUM CHLORIDE 0.9% 50ML BAG 50 ML IV (14:23)
[2024-11-28 15:15] VITALS: BP 97/65; PULSE 70; RESP 18; TEMP 36.8; O2SAT 99
== END 2024-11-28 15:15 | disposition home or self-care (01) ==
LOC: INF 14:01
PROVIDERS: PCP Nurse Practitioner Family; Visit Provider Nurse Practitioner Family
DX: D50.9 Iron deficiency anemia, unspecified (principal)
CPT/HCPCS: 96365; J1439

== ENCOUNTER 2024-12-08 14:01 | Outpatient (CLI) | payer OTHER, SELFPAY ==
--- OUTSIDE RECORDS SUMMARY | 2024-12-08 14:04 | XMS_ITS | Data Portability ---
Author Organization [facility] - [facility] ADMIN Address [address] [place] [id number] Assessment Encounter Date Assessment Date Assessment LastModified by Organization Details LastModified Time 06/23/2024 06/23/2024 Ms. Macias was referred by Dr. Velez (neurology) for management of chronic migraines. She denies DM, history of infection, or anti-coagulan t use. [email or web address] Not available 06/23/2024 17:51:54 Plan of Treatment Reminders Order Date Submit Date Provider Last Modified By Organization Details Last Modified Time Details Appointments None recorded. Lab vitamin D, 25-hydroxy, total, serum 2023 024 MARYAM [facility], [address], [address], [place], [address], 4 20:39:28 CBC w/ auto diff 2023 024 MARYAM [facility], [address], [address], [place], [address], 4 20:39:24 thiamine, QN, blood 2023 024 MARYAM [facility], [address], [address], [place], [address], 4 20:39:29 prealbumin, serum 2023 024 MARYAM [facility], [address], [address], [place], [address], 4 20:39:33 copper, serum or plasma 2023 024 MARYAM [facility], [address], [address], [place], [address], 4 20:39:31 selenium, quantitativ e, blood 2023 024 MARYAM [facility], [address], [address], [place], [address], 4 20:39:33 zinc, serum or plasma 2023 024 MARYAM [facility], [address], [address], [place], [address], 4 20:39:32 CMP, serum or plasma 2023 024 MARYAM [facility], [address], [address], [place], [address], 4 20:39:25 iron + TIBC + ferritin, serum 2023 024 MARYAM [facility], [address], [address], [place], [address], 4 20:39:22 folate, serum 2023 024 MARYAM [facility], [address], [address], [place], [address], 4 20:39:27 vitamin E, serum 2023 024 MARYAM [facility], [address], [address], [place], [address], 4 20:39:26 vitamin A (retinol), serum 2023 024 MARYAM [facility], [address], [address], [place], [address], 4 20:39:28 TSH + free T4, serum 2023 024 MARYAM [facility], [address], [address], [place], [address], 4 20:39:23 methylmalon ate, QN, serum or plasma 2023 024 MARYAM [facility], [address], [address], [place], [address], 4 20:39:30 Referral None recorded. Procedures chemodenerv ation of muscle(s); muscle(s) innervated by facial, trigeminal, cervical spinal and accessory nerves, bilateral (PROC) - [address], Botox injections for migraines - 155 units 2023 024 [email or web address] Not available 5 11:34:23 Surgeries esophagogas troduodenos copy (SURG) 2023 024 [email or web address] Mia Landaverde MD, [address], [address], [place], [address], 4 11:36:46 Imaging RF, upper gastrointes tinal tract + small bowel, w/ contrast PO 2023 024 [email or web address] [facility] (Centralized Scheduling), [address], [place], [address], 4 13:11:31 Medication Orders Botox 200 unit injection 2023 024 [email or web address] Not available 4 10:31:07 Botox 200 unit injection 2023 024 Not available 4 10:09:04 Botox 200 unit injection 2023 024 Not available 4 11:28:34 thiamine HCl (vitamin B1) 100 mg/mL injection solution 2023 024 [email or web address] Not available 4 10:37:12 cyanocobala min (vit B-12) 1,000 mcg/mL injection solution 2023 024 [email or web address] Not available 4 10:35:04 Patient TargetsNo targets recorded. Patient Instructions Encounter Date Encounter Id Patient Instructions Last Modified By Organization Details Last Modified Time 06/23/2024 [id number] I have discussed in great detail our [...] __ __ __ __ __ _ JACQUI: [id number] I have reviewed patient's JACQUI report prior to prescribing Schedule II, III, and IV medications that require review by law. [email or web address] Not available 06/23/2024 17:53:22 Reason for Referral None Reported. Results Created Date Observation Date Name Description Value Unit Range Abnormal Flag Note LastModifiedBy Organization Detail LastModifiedTime 08/25/19 24 08/26/2023 FE+TI BC+FE R iron bind.cap.(TI BC) 340 ug/dL 250-45 0 Not Available [facility] ([facility]) [address] [place], [address], 08/31/2023 20:39:22 08/25/19 24 08/26/2023 FE+TI BC+FE R UIBC 323 ug/dL 131-42 5 Not Available [facility] ([facility]) [address] [place], [address], 08/31/2023 20:39:22 08/25/19 24 08/26/2023 FE+TI BC+FE R iron 17 ug/dL 27-159 below low normal Not Available [facility] ([facility]) [address] [place], [address], 08/31/2023 20:39:22 08/25/19 24 08/26/2023 FE+TI BC+FE R iron saturation 5 % 15-55 alert low Not Available [facility] ([facility]) [address] [place], [address], 08/31/2023 20:39:22 08/25/19 24 08/26/2023 FE+TI BC+FE R ferritin 19 NG/mL 15-150 Not Available [facility] ([facility]) [address] [place], [address], 08/31/2023 20:39:22 08/25/19 24 08/26/2023 TSH+F REE T4 TSH 1.120 uIU/m L 0.450- 4.500 Not Available [facility] ([facility]) [address] [facility], [place], [address], 08/31/2023 20:39:23 08/25/19 24 08/26/2023 TSH+F REE T4 T4,free(dire ct) 1.10 NG/dL 0.82-1 .77 Not Available [facility] ([facility]) [address] [place], [address], 08/31/2023 20:39:23 08/25/19 24 08/26/2023 CBC WITH DIFFE RENTI AL/PL ATELE T WBC 7.8 x10e3 /uL 3.4-10 .8 Not Available [facility] ([facility]) [address] [place], [address], 08/31/2023 20:39:24 08/25/19 24 08/26/2023 CBC WITH DIFFE RENTI AL/PL ATELE T RBC 4.40 x10e6 /uL 3.77-5 .28 Not Available [facility] ([facility]) [address] [place], [address], 08/31/2023 20:39:24 08/25/19 24 08/26/2023 CBC WITH DIFFE RENTI AL/PL ATELE T hemoglobin 10.6 g/dL 11.1-1 5.9 below low normal Not Available [facility] ([facility]) [address] [facility], [place], [address], 08/31/2023 20:39:24 08/25/19 24 08/26/2023 CBC WITH DIFFE RENTI AL/PL ATELE T hematocrit 34.5 % 34.0-4 6.6 Not Available [facility] ([facility]) [address] [facility], [place], [address], 08/31/2023 20:39:24 08/25/19 24 08/26/2023 CBC WITH DIFFE RENTI AL/PL ATELE T MCV 78 fL 79-97 below low normal Not Available [facility] ([facility]) [address] [facility], [place], [address], 08/31/2023 20:39:24 08/25/19 24 08/26/2023 CBC WITH DIFFE RENTI AL/PL ATELE T MCH 24.1 pg 26.6-3 3.0 below low normal Not Available [facility] ([facility]) [address] [place], [address], 08/31/2023 20:39:24 08/25/19 24 08/26/2023 CBC WITH DIFFE RENTI AL/PL ATELE T MCHC 30.7 g/dL 31.5-3 5.7 below low normal Not Available [facility] ([facility]) [address] [place], [address], 08/31/2023 20:39:24 08/25/19 24 08/26/2023 CBC WITH DIFFE RENTI AL/PL ATELE T RDW 16.1 % 11.7-1 5.4 above high normal Not Available [facility] ([facility]) [address] [place], [address], 08/31/2023 20:39:24 08/25/19 24 08/26/2023 CBC WITH DIFFE RENTI AL/PL ATELE T platelets 263 x10e3 /uL 150-45 0 Not Available [facility] ([facility]) [address] [facility], [place], [address], 08/31/2023 20:39:24 08/25/19 24 08/26/2023 CBC WITH DIFFE RENTI AL/PL ATELE T neutrophils 48 % not estab. Not Available [facility] ([facility]) [address] [facility], [place], [address], 08/31/2023 20:39:24 08/25/19 24 08/26/2023 CBC WITH DIFFE RENTI AL/PL ATELE T lymphs 30 % not estab. Not Available [facility] ([facility]) [address] [facility], [place], [address], 08/31/2023 20:39:24 08/25/19 24 08/26/2023 CBC WITH DIFFE RENTI AL/PL ATELE T monocytes 7 % not estab. Not Available [facility] ([facility]) [address] [facility], [place], [address], 08/31/2023 20:39:24 08/25/19 24 08/26/2023 CBC WITH DIFFE RENTI AL/PL ATELE T eos 14 % not estab. Not Available [facility] ([facility]) [address] [facility], [place], [address], 08/31/2023 20:39:24 08/25/19 24 08/26/2023 CBC WITH DIFFE RENTI AL/PL ATELE T basos 1 % not estab. Not Available [facility] ([facility]) [address] [facility], [place], [address], 08/31/2023 20:39:24 08/25/19 24 08/26/2023 CBC WITH DIFFE RENTI AL/PL ATELE T immature cells SEED PELLETER Not Available [facility] ([facility]) [address] [facility], [place], [address], 08/31/2023 20:39:24 08/25/19 24 08/26/2023 CBC WITH DIFFE RENTI AL/PL ATELE T neutrophils (absolute) 3.9 x10e3 /uL 1.4-7. 0 Not Available [facility] ([facility]) [address] [facility], [place], [address], 08/31/2023 20:39:24 08/25/19 24 08/26/2023 CBC WITH DIFFE RENTI AL/PL ATELE T lymphs (absolute) 2.3 x10e3 /uL 0.7-3. 1 Not Available [facility] ([facility]) [address] [facility], [place], [address], 08/31/2023 20:39:24 08/25/19 24 08/26/2023 CBC WITH DIFFE RENTI AL/PL ATELE T monocytes(ab solute) 0.5 x10e3 /uL 0.1-0. 9 Not Available [facility] ([facility]) [address] [facility], [place], [address], 08/31/2023 20:39:24 08/25/19 24 08/26/2023 CBC WITH DIFFE RENTI AL/PL ATELE T eos (absolute) 1.1 x10e3 /uL 0.0-0. 4 above high normal Not Available [facility] ([facility]) [address] [facility], [place], [address], 08/31/2023 20:39:24 08/25/19 24 08/26/2023 CBC WITH DIFFE RENTI AL/PL ATELE T baso (absolute) 0.1 x10e3 /uL 0.0-0. 2 Not Available [facility] ([facility]) [address] [place], [address], 08/31/2023 20:39:24 08/25/19 24 08/26/2023 CBC WITH DIFFE RENTI AL/PL ATELE T immature granulocytes 0 % not estab. Not Available [facility] ([facility]) [address] [facility], [place], [address], 08/31/2023 20:39:24 08/25/19 24 08/26/2023 CBC WITH DIFFE RENTI AL/PL ATELE T immature grans (abs) 0.0 x10e3 /uL 0.0-0. 1 Not Available [facility] ([facility]) [address] [facility], [place], [address], 08/31/2023 20:39:24 08/25/19 24 08/26/2023 CBC WITH DIFFE RENTI AL/PL ATELE T NRBC SEED PELLETER Not Available [facility] ([facility]) [address] [facility], [place], [address], 08/31/2023 20:39:24 08/25/19 24 08/26/2023 CBC WITH DIFFE RENTI AL/PL ATELE T hematology comments: SEED PELLETER Not Available [facility] ([facility]) [address] [facility], [place], [address], 08/31/2023 20:39:24 08/25/19 24 08/26/2023 COMP. METAB OLIC PANEL (14) glucose 109 mg/dL 70-99 above high normal Not Available [facility] ([facility]) [address] [facility], [place], [address], 08/31/2023 20:39:25 08/25/19 24 08/26/2023 COMP. METAB OLIC PANEL (14) BUN 10 mg/dL 6-20 Not Available [facility] ([facility]) [address] [facility], [place], [address], 08/31/2023 20:39:25 08/25/19 24 08/26/2023 COMP. METAB OLIC PANEL (14) creatinine 0.92 mg/dL 0.57-1 .00 Not Available [facility] ([facility]) [address] [facility], [place], [address], 08/31/2023 20:39:25 08/25/19 24 08/26/2023 COMP. METAB OLIC PANEL (14) eGFR 81 mL/mi n/1.7 3 >59 Not Available [facility] ([facility]) [address] [facility], [place], [address], 08/31/2023 20:39:25 08/25/19 24 08/26/2023 COMP. METAB OLIC PANEL (14) BUN/creatini ne ratio 11 9-23 Not Available [facility] ([facility]) [address] [facility], [place], [address], 08/31/2023 20:39:25 08/25/19 24 08/26/2023 COMP. METAB OLIC PANEL (14) sodium 144 mmol/ L 134-14 4 Not Available [facility] ([facility]) [address] [facility], [place], [address], 08/31/2023 20:39:25 08/25/19 24 08/26/2023 COMP. METAB OLIC PANEL (14) potassium 4.2 mmol/ L 3.5-5. 2 Not Available [facility] ([facility]) [address] [facility], [place], [address], 08/31/2023 20:39:25 08/25/19 24 08/26/2023 COMP. METAB OLIC PANEL (14) chloride 103 mmol/ L 96-106 Not Available [facility] ([facility]) [address] [facility], [place], [address], 08/31/2023 20:39:25 08/25/19 24 08/26/2023 COMP. METAB OLIC PANEL (14) carbon dioxide, total 22 mmol/ L 20-29 Not Available [facility] ([facility]) [address] [facility], [place], [address], 08/31/2023 20:39:25 08/25/19 24 08/26/2023 COMP. METAB OLIC PANEL (14) calcium 9.1 mg/dL 8.7-10 .2 Not Available [facility] ([facility]) [address] [facility] [place], [address], 08/31/2023 20:39:25 08/25/19 24 08/26/2023 COMP. METAB OLIC PANEL (14) protein, total 7.1 g/dL 6.0-8. 5 Not Available [facility] ([facility]) [address] [facility], [place], [address], 08/31/2023 20:39:25 08/25/19 24 08/26/2023 COMP. METAB OLIC PANEL (14) albumin 4.3 g/dL 3.9-4. 9 Not Available [facility] ([facility]) [address] [facility], [place], [address], 08/31/2023 20:39:25 08/25/19 24 08/26/2023 COMP. METAB OLIC PANEL (14) globulin, total 2.8 g/dL 1.5-4. 5 Not Available [facility] ([facility]) [address] [place], [address], 08/31/2023 20:39:25 08/25/19 24 08/26/2023 COMP. METAB OLIC PANEL (14) A/G ratio 1.5 1.2-2. 2 Not Available [facility] ([facility]) [address] [place], [address], 08/31/2023 20:39:25 08/25/19 24 08/26/2023 COMP. METAB OLIC PANEL (14) bilirubin, total 0.2 mg/dL 0.0-1. 2 Not Available [facility] ([facility]) [address] [facility] [place], [address], 08/31/2023 20:39:25 08/25/19 24 08/26/2023 COMP. METAB OLIC PANEL (14) alkaline phosphatase 116 IU/L 44-121 Not Available [facility] ([facility]) [address] [place], [address], 08/31/2023 20:39:25 08/25/19 24 08/26/2023 COMP. METAB OLIC PANEL (14) AST (SGOT) 22 IU/L 0-40 Not Available [facility] ([facility]) [address] [facility] [place], [address], 08/31/2023 20:39:25 08/25/19 24 08/26/2023 COMP. METAB OLIC PANEL (14) ALT (SGPT) 12 IU/L 0-32 Not Available [facility] ([facility]) [address] [place], [address], 08/31/2023 20:39:25 08/25/19 24 08/30/2023 VITAM IN E vitamin E(alpha tocopherol) 8.0 mg/L 5.9-19 .4 Not Available [facility] ([facility]) [address] [facility], [place], [address], 08/31/2023 20:39:26 08/25/19 24 08/30/2023 VITAM IN [...] in E defic ient. Not Available [facility] ([facility]) [address] [place], [address], 08/31/2023 20:39:26 08/25/19 24 08/26/2023 FOLAT E (FOLI C ACID) , SERUM folate (folic acid), serum 13.0 NG/mL >3.0 A serum folat e francia ntrat ion of less than 3.1 ng/mL is consi dered to repre sent clini omar defic iency . Not Available [facility] ([facility]) [address] [facility], [place], [address], 08/31/2023 20:39:27 08/25/19 24 08/30/2023 VITAM IN [...] Drug Admin istra tion. Not Available [facility] ([facility]) [address] [facility], [place], [address], 08/31/2023 20:39:28 08/25/19 24 08/26/2023 VITAM IN [...] Ada vieira [place]: The [facility] . 2. Luis Carlos xiao MF, Binraffaele ey [place], Belkis off-F errar i NEVAREZ, et al. Evalu ation , treat ment, and preve ntion of vitam in D defic iency : an Endoc rine Socie ty clini omar pract ice guide line. JCEM. 2010; 96(7) :1911 -30. Not Available [facility] ([facility]) [address] [facility], [place], [address], 08/31/2023 20:39:28 08/25/19 24 08/29/2023 VITAM IN B1 (THIA MINE) , BLOOD vit. B1, whole blood 104.3 nmol/ L 66.5-2 00.0 Not Available [facility] ([facility]) [address] [facility] [place], [address], 08/31/2023 20:39:29 08/25/19 24 08/31/2023 METHY LMALO YVETTE ACID, SERUM methylmaloni c acid, serum 327 nmol/ L 0-378 Not Available [facility] ([facility]) [address] [facility], [place], [address], 08/31/2023 20:39:30 08/25/19 24 08/27/2023 COPPE R, SERUM OR PLASM A copper, serum or plasma 146 ug/dL 80-158 Detec tion Limit = 5 Not Available [facility] ([facility]) [address] [place], [address], 08/31/2023 20:39:31 08/25/19 24 08/27/2023 ZINC, PLASM A OR SERUM zinc, plasma or serum 73 ug/dL 44-115 Detec tion Limit = 5 Not Available [facility] ([facility]) [address] [facility], [place], [address], 08/31/2023 20:39:32 08/25/19 24 08/26/2023 PREAL BUMIN prealbumin 12 mg/dL 14-35 below low normal Not Available [facility] ([facility]) [address] [facility], [place], [address], 08/31/2023 20:39:32 08/25/19 24 08/28/2023 SELEN IUM, BLOOD selenium, blood 161 ug/L 100-34 0 Detec tion Limit = 10 Not Available [facility] ([facility]) [address] [facility], [place], [address], 08/31/2023 20:39:33 Result Notes None recorded. Problems Name Problem SNOMED Code Status Onset Date Resolution Date Notes Provider Name and Address Organization Details Recorded Time Anxiety 91193092 Active 2023 Carline Beardswort h null, [place] - [facility] - [place] & [place] 4 14:56:25 Irritable bowel syndrome 20928656 Active 2023 [place] Beard[place], [place] [facility] [place] & [place] 14:56:37 Malignant neoplastic disease 295923404 Active 2023 [place] Beard[place], [place] [facility] [place] 14:56:45 Fibromyalg ia 747336945 Active 2023 [place] Beard[place] [facility] [place] & [place] 4 14:57:44 Migraine 79199349 Active 2023 [place] Beard[place] [facility] [place] 14:57:51 Hyperlipid emia 21003860 Active 2023 [place] Beard[place], [place] [facility] [place] 4 14:57:57 Depressive disorder 88500995 Active 2023 [place] Beard[place] [facility] [place] 4 14:58:03 Sleep apnea 33628341 Active 2023 [place] Beard[place] [facility] [place] 4 14:58:21 Arthritis 1479972 Active 2023 [place]ard[place] [facility] [place] 4 14:58:26 Osteoporos is 70488433 Active 2023 [place] Beard[place] [facility] [place] & [place] 4 14:58:35 Gastroesop hageal reflux disease 633668302 Active 2023 [place] Beard[place] [facility] [place] 4 14:58:40 Chronic migraine without aura 2932387757778 05 Active 2023 Milli Walkerkins [place] [facility] [place] 4 17:49:42 Episodic migraine 9637841065726 06 Active 2023 Milli Cornejo [place] [facility] [place] 4 17:49:50 Headache 75076756 Active 2023 Milli [place]nejo [place] [facility] [place] & [place] 4 17:49:57 Chronic intractabl e migraine without aura 5357893407518 05 Active 2021 Vivi Velez, DO [address] [facility], [place], [address] , [place] - [facility] [place] & [place] 2 10:20:51 History of bypass of stomach 457359076 Active 2022 GIA Wright [address] , [place], [address] , [place] [facility] [place] & [place] 3 13:58:14 Iron deficiency 64212241 Active 2022 GIA Wright [address], [place], [address] , [place] [facility] [place] & [place] 3 13:58:16 Vitamin D deficiency 69499603 Active 2022 GIA Wright [address], [place], [address] , [place] [facility] [place] & [place] 3 13:58:17 Gastrointe stinal hemorrhage 70609238 Active Breerobyn Bautista null, [place] [facility] & [place] 4 10:30:39 Problem Notes None recorded. Procedures Surgical History Date Name Laterality Status Provider Name and Address Organization Details Recorded Time 2023 ESOPHAGOGASTRODUODENOSCOPY (SURG) completed Kelli Gray [place] - [facility] - [place] & [place] 4 11:31:36 2020 repair of tendo achilles completed Bree Dalla [place] - [facility] - [place] & [place] 2 16:28:15 2020 Gastric Bypass completed Bree Dalla [place] - [facility] [place] & [place] 2 16:27:48 2018 ankle reconstruction completed Bree Dalla [place] - [facility] [place] & [place] 2 16:27:01 2015 Lumbar Spine Surgery completed Bree Dalla [place] - [facility] - [place] & [place] 2 16:21:33 EGD completed Jan Maldonado-Sindhu lashon [place] - [facility] - [place] & [place] 3 10:36:17 Total hysterectomy completed Bree Dalla [place] - [facility] - [place] & [place] 2 16:20:22 partial fasciectomy of plantar fascia completed Bree Dalla [place] - [facility] [place] & [place] 2 16:20:47 Knee Surgery completed Bree Dalla [place] - [facility] [place] & [place] 2 16:21:04 exploratory laparotomy completed Earlene Allena [place] - [facility] [place] & [place] 2 16:21:59 Transfusion bld/bld compnt completed Bree Dalla [place] - [facility] & [place] 2 16:26:38 Cholecystectomy completed Bree Dalla [place] - [facility] [place] & [place] 2 10:18:00 Imaging Results None recorded. Procedure Notes None recorded. Medical Equipment None Reported. Allergies Allergen ID Allergen Name Allergen Category Reaction Reaction Severity Criticality Documentation Date Start Date Code Code System Note Provider Name and Address Organization Details Recorded Time 439701 Non-stero idal anti-infl ammatory agent (product) medicatio n Not available Not available Not available 02/26/2024 95443 005 SNOMED Other react ions and sever ities : 'Adve rse react ion to subst ance' . Bree mcelroy, [place]RE[place] - [facility] - [place] & [place] 4 10:32:00 648278 hydromorp eladio medicatio n rash severe Not available 02/26/2024 3423 RxNorm Bree mcelroy, ANDRE[place] - [facility] - [place] & [place] 4 10:32:00 555354 ketorolac medicatio n rash Not available Not available 02/26/2024 61414 RxNorm Bree mcelroy, ANDRE[place] - [facility] - [place] & [place] 4 10:32:00 664337 Milk (substan e) food,medi cation Not available Not available Not available 06/23/2024 91315 002 SNOMED Carline mcelroy, [place] - [facility] & [place] 4 14:55:40 Medications Name Sig Start Date [...] Updated DateTime 4 175.26 cm 25.7 kg/m2 79650.0 7 g 90 /min 98.3 [degF] 110 mm[Hg] 70 mm[Hg] Abby Zhang BALDERAS - [place] - [place] & [place] 4 14:45:58 Date Recorded Body height Body mass index (BMI) Body weight Heart rate Systolic blood pressure Diastolic blood pressure Provider Name and Address Organization Details Last Updated DateTime 4 175.26 cm 26.2 kg/m2 16651.5 7 g 80 /min 107 mm[Hg] 79 mm[Hg] Bree BALDERAS - [facility] & [place] 4 11:29:00 Date Recorded Body height Body mass index (BMI) Body weight Heart rate Systolic blood pressure Diastolic blood pressure Provider Name and Address Organization Details Last Updated DateTime 4 175.26 cm 24.6 kg/m2 47847.1 3 g 81 /min 122 mm[Hg] 80 mm[Hg] Bree BALDERAS - [facility] & [place] 4 10:10:48 Date Recorded Body height Body mass index (BMI) Body weight Heart rate Systolic blood pressure Diastolic blood pressure Provider Name and Address Organization Details Last Updated DateTime 4 175.26 cm 20.7 kg/m2 93020.9 3 g 75 /min 110 mm[Hg] 68 mm[Hg] Bree BALDERAS - NT [facility] & [place] 4 10:38:55 Date Recorded Body height Body mass index (BMI) Body weight Body temperature Oxygen saturation Oxygen saturation in Arterial blood by Pulse oximetry Heart rate Systolic blood pressure Diastolic blood pressure Provider Name and Address Organization Details Last Updated DateTime 4 175.26 cm 19.9 kg/m2 71402.9 7 g 97.1 [degF] 99 % 99 % 83 /min 121 mm[Hg] 80 mm[Hg] [facility] ANDREY [facility] & [place] 4 14:54:56 Social History Question Answer Notes LastModified by Organizat ion Details LastModified Time Tobacco Smoking Status Former Smoker no tobacco use x 7yr, currently daily mariuana use GIA Wright [address] , [place], [address] & [place] 09/10/2022 13:43:16 Do You Have An Advance [...] Anxious, Or Unable To Sleep At Night)? [id number] Information not available 08/29/2022 Do You Use [...] LastModified Time Mother Malignant tumor of breast [id number] Not available 02/2022 08:21:12 Mother Allergy pt. added direct ly (05/22) [id number] Not available 05/22/2022 12:36:00 Father Malignant tumor of kidney [id number] Not available 02/2022 08:21:12 Father Disorder of [...] influenza, unspecified formulation 06/03/2023 completed Abby Holcomb [facility] & [place] 08/25/2023 14:44:46 Past Encounters Encounter ID Performer Location Encounter Start Date Encounter Closed Date Diagnosis/Indication Diagnosis SNOMED-CT Code Diagnosis ICD10 Code Diagnosis Note [id number] Viv[facility]DO [facility] [address] [place] [address] 05/20/2022 10:08:09 05/20/2022 10:40:41 Chronic intractable migraine without aura [id number] 41779 G43.719 She has done very well on the combinatio n of botox and ajovy but due to insurance change can no longer stay on this dual therapies. She will discontinu e the ajovy and I will have the office seek a new approval to continue with her botox treatments .In the meantime she is asked to keep a headache log. [id number] DO SHANNA [facility]hl [facility] [address] [place] [address] 05/23/2022 08:19:26 05/23/2022 08:47:35 Chronic intractable migraine without aura [id number] 89802 G43.719 [id number] Viv[facility]DO [facility] [address] [place] [address] 08/29/2022 08:21:08 08/29/2022 08:56:01 Chronic intractable migraine without aura [id number] 87599 G43.719 [id number] GIA Wright [facility] [address] [place] [address] 09/10/2022 13:07:45 09/10/2022 14:53:51 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 Fitz Velez [...] c ulcer. History of bypass of stomach 644835533 Z98.84 Long discussion today regarding need for routine follow-up and vitamin checks. patient voices understand ing of needed routine follow-up and agrees to be compliant with this. We are checking full bariatric panel today. Iron deficiency 04886684 E61.1 Vitamin D deficiency 347 87797 E55.9 History of gastrectomy 399931843 Z90.3 Patient is status post bariatric surgery and at increased risk for vitamin deficienci es and malnutriti on. Bariatric vitamin panel ordered today. Patient will be contacted to correct any vitamin deficienci es. [id number] Vivi DO Agustin [facility] [address] [place] [address] 11/28/2022 08:14:33 11/28/2022 08:55:55 Chronic intractable migraine without aura [id number] 48461 G43.719 Chronic condition that is stable. She is given Ajovy samples today. [id number] Vivi Velez DO [facility] [address] [place] [address] 02/27/2023 11:05:14 02/27/2023 11:33:40 Chronic intractable migraine without aura 0821729031 28994 G43.719 [id number] Vivi Velez DO [facility] [address] [place] [address] 05/29/2023 11:13:34 05/29/2023 11:43:52 Chronic intractable migraine without aura [id number] 95223 G43.719 [id number] GIA Wright [facility] [address] [facility] [address] [place] [address] 08/25/2023 14:29:17 08/25/2023 15:27:36 Vomiting 022419618 R11.10 Discussed previous endoscopy September 2022 showing [...] GI have been resulted. Nutritiona lly compromised 981202136 E63.9 Discussed need for increased nutritiona l intake. Advised patient attempt p.o. stage I/2 as tolerated with focus on 70 g of protein and a 1000 calories. We will have dietitian meet with patient today for additional dietary support. History of gastrectomy 443968409 Z90.3 Patient is status post bariatric surgery and at increased risk for vitamin deficienci es and malnutriti on. Bariatric vitamin panel ordered today. Patient will be contacted to correct any vitamin deficienci es. Vitamin D deficiency 347 58102 E55.9 Marijuana user [id number] F12.90 [id number] RUSSELL BREWSTER BS, RDN, LD [facility] [address] [facility] [address] [place] [address] 08/25/2023 15:31:07 08/25/2023 16:02:52 History of bypass of stomach 263025926 Z98.84 EGD ordered today, hx of jejunal anastomoti c ulcer [id number] DO SHANNA Diehl [facility] [address] [place] [address] 08/28/2023 11:21:49 08/28/2023 11:48:46 Chronic intractable migraine without aura [id number] 12967 G43.581 [id number] Vivi Velez DO [facility] [address] [place] [address] 11/27/2023 10:00:13 11/27/2023 10:35:46 Chronic intractable migraine without aura 4276995702 32107 G43.719 She is given a sample of Ajovy todayAjovy quantity: 1, Lot #: [id number], Exp: 06/17/2025 [id number] Vivi Velez DO [facility] [address] [place] [address] 02/26/2024 10:25:30 02/26/2024 11:08:39 Chronic intractable migraine without aura 6517329593 59898 G43.719 She is given a sample of Ajovy todayAjovy quantity: 2, Lot #: [id number] , Exp: 12/2025 [id number] Ajit Grande MD [facility] [address] [place] [address] 06/23/2024 14:31:23 06/23/2024 14:58:43 Chronic migraine without aura 0651410805 69970 G43.709 - It appears that the intensity [...] patient for Botox injections . Episodic migraine 407163 3258 30931 G43.C1 Headache 08842733 R51.9 Health Concerns Section Related Observation LastModified by Organization Detai ls LastModified Time None Recorded Concern Status LastModified by Organization Details LastModified Time None Recorded Advance Directives Directive N: Payers Encounter Date Sequence Insurance Name Policy Number Policy Vaughn Covered Member ID Vaughn Member ID Guarantor Name 08/25/2023 2 [employer] [facility] (MEDICAID HMO) Alexei Macias [id number] Alexei Macias 08/25/2023 1 [place] - DOS PRIOR TO 2024 - [employer] - [place] ( - PPO) Denilson Macias [id number] Alexei Macias 08/28/2023 2 [employer] [facility] (MEDICAID O) Alexeiroderick Macias [id number] Alexeiroderick Macias 08/28/2023 1 [place] - DOS PRIOR TO 2024 - [employer] - [place] ( - PPO) Denilson Macias [id number] Alexei Macias 11/27/2023 2 [employer] [facility] (MEDICAID HMO) Alexei Macias [id number] Alexeiroderick Macias 11/27/2023 1 [place] - DOS PRIOR TO 2024 - [employer] - [place] ( - PPO) Denilson Macias [id number] Alexei Macias 02/26/2024 2 [employer] [facility] (MEDICAID HMO) Alexei Macias [id number] Alexei Macias 02/26/2024 1 [place] - DOS PRIOR TO 2024 - [employer] - [place] ( - PPO) Denilson Macias [id number] Alexei Macias 06/23/2024 2 [facility] (MEDICAID HMO) Alexei Macias [id number] Alexei Macias 06/23/2024 1 [place] - DOS PRIOR TO 2024 - [employer] - [place] ( - PPO) Denilson Macias [id number] Alexei Macias Notes Date Note Type Note [...] Last labs approximately 2 weeks ago at [facility]. Past history: March 06 upper [...] office since GIA Wright [address], [place], [address], [place] - [place] - [place] & [place] 08/25/2023 15:42:54 08/25/2023 text/html RDN met w/ Alexei Macias who is s/p RNY (surgery date 2020) following their office visit regarding concern for recurring anastomotic ulcer. RDN reviewed diet stages 1 and 2 and advised ways to manage nausea. Pt expressed concerns that she is anorexic and also disclosed some concerns with memory issues. RDN scheduled pt to see psych in [facility] [place] on Thursday to address these concerns. We [...] BREWSTER BS, RDN, LD [address], [place], [address], [facility] - [place] - [place] & [place] 08/25/2023 16:37:41 08/28/2023 text/html Vikash comes in [...] a migraine today. Vivi Velez, DO [address], [place], [address], [place] - [place] - [place] & [place] 08/28/2023 11:53:09 11/27/2023 text/html Vikash comes in [...] today. Vivi Velez, DO [address], [place], [address], [place] - [place] - [place] & [place] 11/27/2023 10:28:31 02/26/2024 text/html Alexei comes in [...] a migraine today. Vivi Velez, DO [address], [place], [address], [place] - [place] - [place] & [place] 02/26/2024 12:14:39 06/23/2024 text/html Ms. Macias was [...] Surgery: none Imaging/Studies: none Ajit Grande MD [address], [place], [address], [facility] & [place] 06/24/2024 09:49:17 OBGyn Episode No OBEpisode recorded.
--- OUTSIDE RECORDS SUMMARY | 2024-12-08 14:04 | XMS_ITS | Continuity of Care Document ---
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 It does not include entries that were removed or entered in error. Problem Status Onset Date Problem Type Date of Resolution Comments Source Cervico-occipital neuralgia Active 8 Condition Unknown Organization Common migraine without aura Active 7 Condition Unknown Organization Personal history of malignant neoplasm, unspecified Active 7 Condition DoD Adjustment disorder with anxious mood (disorder) Active [...] Organization Osteoporosis (disorder) Active Condition Unknown Organization Other osteoporosis without current pathological fracture Active Condition DoD Occipital neuralgia Active Condition DoD Encounter for examination and observation for other specified reasons Active Condition DoD Vitamin D deficiency, unspecified Active Condition DoD 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 Condition DoD Nicotine dependence, cigarettes, uncomplicated Active Condition DoD Abnormal levels of other serum enzymes Active Condition DoD Migraine with aura, not intractable, without status migrainosus Active Condition DoD Unspecified asthma, uncomplicated Active Condition DoD Nicotine dependence, unspecified, uncomplicated Active Condition DoD Adjustment disorder with mixed anxiety and depressed mood Active Condition DoD Low back pain Active Condition DoD Unspecified lump in breast Active Condition DoD Encounter for therapeutic drug level monitoring Active Condition DoD 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 It does not include entries that were removed or entered in error. Substance Category Reaction Severity Reaction type Status Date Reported Comments Source acetaminophen -propoxyphene Propensity to adverse reactions to substance Rash Active 6 Unknown Organizat ion Darvocet A500 Drug allergy [facility] DARVOCET A500 (PROPOXYPHENE NAP/ACETAMINO PHEN) Drug allergy (disorder) Rash active 6 [facility] Dilaudid Drug allergy Rash Active [address] [place] [address] DILAUDID (HYDROMORPHON E HCL) Drug allergy (disorder) Rash active 6 [facility] HYDROmorphone Propensity to adverse reactions to substance Rash Active 6 Unknown Organizat ion ketorolac Propensity to adverse reactions to substance Rash Active 6 Unknown Organizat ion Toradol Drug allergy Rash [facility] McCho TORADOL (KETOROLAC TROMETHAMINE) Drug allergy (disorder) Rash active 6 [facility] Immunizations Combined list of available immunizations from the Department of Defense and Veterans Affairs facilities. Immunization Series Date Given Administered By Site Reaction Lot Number CVX Code Drug Quirk Sander Status Comments Source Tdap 2020 RADHA, () Not Given Tdap DoD Influenza, injectable, MDCK, preservative free, quadrivalent 2020 RADHA, () Not Given Influenza , injectabl e, MDCK, preservat elizabeth free, quadrival ent DoD pneumococcal polysaccharid e PPV23 2020 RADHA, () Not Given pneumococ omar polysacch aride PPV23 DoD COVID-19, mRNA, LNP-S, PF, 30 mcg/0.3 mL dose 2020 JENNIFER KIM, [place] (PFR) Not Given COVID-19, mRNA, LNP-S, PF, 30 mcg/0.3 mL dose DoD COVID-19, mRNA, LNP-S, PF, 30 mcg/0.3 mL dose 2020 ABHISHEK [place] (PFR) Not Given COVID-19, mRNA, LNP-S, PF, 30 mcg/0.3 mL dose DoD HPV9 2020 TIANA, () Not Given HPV9 DoD HPV9 2020 GURJIT, () Not Given HPV9 DoD HPV9 2020 GURJIT, () Not Given HPV9 DoD HPV9 2020 GURJIT, () Not Given HPV9 DoD influenza, injectable, quadrivalent, preservative free 2016 RUBY LUCAS () Not Given influenza , injectabl e, quadrival ent, preservat elizabeth free DoD hepatitis A-hepatitis B vaccine 2016 zzLef t Arm [id number] GlaxoSmithKli ne complet ed hepatitis A-hepatit is B vaccine 03/27/17 Given Ambulat ory Pharmac y hepatitis A and hepatitis B vaccine 1 2016 JEFERSON RANDALL [id number] 104 Smithine (SKB) complet ed hepatitis A and hepatitis B vaccine DoD Influenza, trivlanent, adjuvanted, pf 2015 zzLef t Arm [id number] Seqirus complet ed Influenza , trivlanen t, adjuvante d, pf 07/09/16 Given Ambulat ory Pharmac y tetanus, diphtheria, acellular pertu is 2015 zzChandra Arm [id number] 115 GlaxoSmithKli ne complet ed tetanus, diphtheri a, acellular pertussis 07/09/16 Given Ambulat ory Pharmac y pneumococcal polysaccharid e, 23 valent 2015 zzLef t Arm [id number] Merck & Company Inc complet ed pneumococ omar polysacch aride, 23 valent 07/09/16 Given Ambulat ory Pharmac y pneumococcal polysaccharid e vaccine, 23 valent 1 2015 FILIPE TRAMMELL [id number] Merck (MSD) compl et ed pneumococ omar polysacch aride vaccine, 23 valent DoD tetanus toxoid, reduced diphtheria toxoid, and acellular pertu is vaccine, adsorbed 1 2015 FILIPE TRAMMELL [id number] 115 Smithine (SKB) complet ed tetanus toxoid, reduced diphtheri a toxoid, and acellular pertussis vaccine, adsorbed DoD Influenza, seasonal, injectable, preservative free 1 2015 Unknown, Provider [id number] Seqirus (SEQ) complet ed Influenza , seasonal, injectabl e, preservat elizabeth free DoD Seasonal trivalent influenza vaccine, adjuvanted, preservative free 1 2015 FILIPE TRAMMELL [id number] Seqirus (SEQ) com plet ed Seasonal trivalent influenza vaccine, adjuvante d, preservat elizabeth free DoD measles/mumps /rubella virus vaccine 2014 Body, whole TRANSCR IBED 03 complet ed measles/m umps/rube lla virus vaccine 08/06/15 Given Ambulat ory Pharmac y measles, mumps and rubella virus vaccine 2 2014 03 Transcribed (TRS) complet ed measles, mumps and rubella virus vaccine DoD hepatitis A-hepatitis B vaccine 2014 Body, whole TRANSCR IBED 104 complet ed hepatitis A-hepatit is B vaccine 07/03/15 Given Ambulat ory Pharmac y varicella virus vaccine 2014 Body, whole TRANSCR IBED 21 complet ed varicella virus vaccine 07/03/15 Given Ambulat ory Pharmac y Hep A-Hep B 2014 CAT, () Not Given Hep A-Hep B DoD varicella 2014 CAT, () Not Given varicella DoD varicella virus vaccine 2 2014 21 Transcribed (TRS) complet ed varicella virus vaccine DoD hepatitis A and hepatitis B vaccine 2 2014 104 Transcribed (TRS) complet ed hepatitis A and hepatitis B vaccine DoD haemophilus b conjugate (PRP-T) vaccine 2014 Body, [...] ed 06/06/15 Given Ambulat ory Pharmac y poliovirus vaccine, inactivated 1 2014 10 Transcribed (TRS) complet ed polioviru s vaccine, inactivat ed DoD Haemophilus influenzae type b vaccine, PRP-T conjugate 1 2014 48 Transcribed (TRS) complet ed Haemophil us influenza e type b vaccine, PRP-T conjugate DoD human papilloma virus vaccine, quadrivalent 1 2014 62 Transcribed (TRS) complet ed human papilloma virus vaccine, quadrival ent DoD pneumococcal 13-valent conjugate (PCV13) 2014 Body, whole TRANSCR IBED 133 complet ed pneumococ omar 13-valent conjugate (PCV13) 06/05/15 Given Ambulat ory Pharmac y pneumococcal conjugate vaccine, 13 valent 1 2014 133 Transcribed (TRS) complet ed pneumococ omar conjugate vaccine, 13 valent DoD meningococcal A,C,Y,W-135 (MCV4P) 2014 Body, whole TRANSCR [...] vaccine 06/04/15 Given Ambulat ory Pharmac y Hep A-Hep B 2014 CAT, () Not Given Hep A-Hep B DoD varicella 2014 CAT, () Not Given varicella DoD meningococcal MCV4P 2014 CAT, () Not Given meningoco ccal MCV4P DoD measles, mumps and rubella virus vaccine 1 2014 03 Transcribed (TRS) complet ed measles, mumps and rubella virus vaccine DoD varicella virus vaccine 1 2014 21 Transcribed (TRS) complet ed varicella virus vaccine DoD hepatitis A and hepatitis B vaccine 2 2014 104 Transcribed (TRS) complet ed hepatitis A and hepatitis B vaccine DoD meningococcal polysaccharid e (groups A, C, Y and W-135) diphtheria toxoid conjugate vaccine (MCV4P) 1 2014 114 Transcribed (TRS) complet ed meningoco ccal polysacch aride (groups A, C, Y and W-135) diphtheri a toxoid conjugate vaccine (MCV4P) DoD MMR 2014 CAT, () Not Given MMR DoD influenza, seasonal, injectable-pf 2014 Body, whole TRANSCR IBED 140 complet ed influenza , seasonal, injectabl e-pf 05/30/15 Given Ambulat ory Pharmac y Influenza, seasonal, injectable, preservative free 1 2014 140 Transcribed (TRS) complet ed Influenza , seasonal, injectabl e, preservat elizabeth free DoD tetanus, diphtheria, acellular pertu is 2013 Body, whole TRANSCR IBED 115 complet ed tetanus, diphtheri a, acellular pertussis 04/07/14 Given Ambulat ory Pharmac y tetanus toxoid, reduced diphtheria toxoid, and acellular pertu is vaccine, adsorbed 2 2013 115 Transcribed (TRS) complet ed tetanus toxoid, reduced diphtheri a toxoid, and acellular pertussis vaccine, adsorbed DoD Vital Signs Combined list of inpatient and outpatient Vital Signs from Department of Defense and Veterans Affairs, ranging from 12 months to all on record, depending upon the facility. Vital Sign Value Date Comments Source Heart Rate Monitored 74 bpm 08/12/2017 07:34:[address] [place] [address] Heart Rate Monitored 96 bpm 08/12/2017 07:31:[address] [place] [address] Heart Rate Monitored 75 bpm 08/12/2017 05:58:[address] [place] [address] Respiratory Rate 16 br/min 09/01/2017 16:30:00 [facility] [place] Diastolic Blood Pressure 91 mm[Hg] 12/05/2017 03:33:[address] [place] [address] Harpreet Systolic Blood Pressure 123 mm[Hg] 12/05/2017 03:33:[address] [place], [place] [address]igan Peripheral Pulse Rate 92 bpm 12/05/2017 03:33:[address] [place] [address] Respiratory Rate 18 br/min 12/05/2017 03:33:[address] [place] [address] Harpreet Mean Arterial Pressure, Calc 88 mm[Hg] 12/02/2017 20:31:[address] [place] [address] Efrem phillips Temperature Tympanic 36.6 Berta 12/02/2017 [facility]:31[facility]reet Systolic Blood Pressure 120 mm[Hg] 01/19/2018 18:01:[address] [place] [address] Harpreet Diastolic Blood Pressure 89 mm[Hg] 01/19/2018 18:01:00 012[facility] Harpreet Respiratory Rate 18 br/min 01/19/2018 18:01:00 012[facility] Harpreet Temperature Tympanic 36.5 Berta 01/19/2018 18:01:00 012[facility] Harpreet Peripheral Pulse Rate 86 bpm 01/19/2018 18:01:00 012[facility] Harpreet Mean Arterial Pressure, Calc 99 mm[Hg] 01/19/2018 18:01:00 012-[facility] Efrem phillips Respiratory Rate 16 br/min 08/12/2017 09:18:00 012[facility] Harpreet Heart Rate Monitored 91 bpm 08/12/2017 09:18:00 012[facility] Harpreet Systolic Blood Pressure 133 mm[Hg] 02/03/2018 15:56:00 012[facility] Harpreet Diastolic Blood Pressure 87 mm[Hg] 02/03/2018 15:56:00 012[facility] Harpreet Mean Arterial Pressure, Calc 102 mm[Hg] 02/03/2018 15:56:00 012-[facility] Efrem phillips Peripheral Pulse Rate 107 bpm 02/03/2018 15:56:00 012[facility] Harpreet Mean Arterial Pressure, Calc 91 mm[Hg] 09/30/2017 22:07:00 1480Har[facility]eta n [place] Temperature Tympanic 36 Berta 09/30/2017 22:07:00 1480[facility] [place] Temperature Tympanic 36.2 Berta 07/23/2017 17:47:00 Ambulatory Pharmacy Heart Rate Monitored 81 bpm 08/12/2017 08:18:00 012[facility] Harpreet Respiratory Rate 16 br/min 08/12/2017 08:18:00 012[facility] Harpreet Heart Rate Monitored 79 bpm 08/12/2017 07:19:00 012[facility] Harpreet Heart Rate Monitored 79 bpm 08/12/2017 07:08:00 012[facility] Harpreet Systolic Blood Pressure 108 mm[Hg] 12/09/2017 21:49:00 1485C[facility] Diastolic Blood Pressure 76 mm[Hg] 12/09/2017 21:49:00 1485[facility] [place] Respiratory Rate 17 br/min 12/09/2017 21:49:00 1485[facility] [place] Temperature Tympanic 36.7 Berta 12/09/2017 21:49:00 1485[facility] [place] Mean Arterial Pressure, Calc 87 mm[Hg] 12/09/2017 21:49:00 148-[facility] Bk Kapadia Peripheral Pulse Rate 100 bpm 12/09/2017 21:49:00 148-[facility] [place] Respiratory Rate 18 br/min 01/25/2018 20:32:00 012[facility] Harpreet Temperature Tympanic 35.4 Berta 01/25/2018 20:32:00 012-[facility] Harpreet Peripheral Pulse Rate 95 bpm 01/25/2018 20:32:00 012[facility] Harpreet Mean Arterial Pressure, Calc 96 mm[Hg] 01/25/2018 20:32:00 012-[facility] Efrem phillips Systolic Blood Pressure 137 mm[Hg] 01/25/2018 20:32:00 012-[facility] Harpreet Diastolic Blood Pressure 76 mm[Hg] 01/25/2018 20:32:00 012-[facility] Harpreet Systolic Blood Pressure 125 mm[Hg] 02/25/2018 17:27:00 012-[facility] Harpreet Diastolic Blood Pressure 85 mm[Hg] 02/25/2018 17:27:00 012[facility] Harpreet Temperature Tympanic 36.2 Berta 02/25/2018 17:27:00 012-[facility] Harpreet Mean Arterial Pressure, Calc 98 mm[Hg] 02/25/2018 17:27:00 0125C-[facility] Efrem phillips Peripheral Pulse Rate 90 bpm 02/25/2018 17:27:00 0125C-[facility] Harpreet Temperature Tympanic 36.2 Berta 12/16/2017 15:20:00 1480C[facility] [place] Mean Arterial Pressure, Calc 80 mm[Hg] 12/16/2017 15:20:00 1480C-Williana n [place] Systolic Blood Pressure 118 mm[Hg] 12/16/2017 15:20:00 1480[facility] [place] Diastolic Blood Pressure 61 mm[Hg] 12/16/2017 15:20:00 1480[facility] [place] Peripheral Pulse Rate 82 bpm 12/16/2017 15:20:00 1480[facility] [place] Heart Rate Monitored 74 bpm 08/12/2017 06:19:00 012-[facility] Harpreet Diastolic Blood Pressure 94 mm[Hg] 12/05/2017 05:04:00 012-[facility] Harpreet Systolic Blood Pressure 141 mm[Hg] 12/05/2017 05:04:00 0125A-RAMIRO [facility] Respiratory Rate 16 br/min 12/05/2017 05:04:00 012Mirta-RAMIRO [facility] Peripheral Pulse Rate 81 bpm 12/05/2017 05:04:00 012Mirta-RAMIRO [facility] Heart Rate Monitored 91 bpm 08/12/2017 07:01:00 012Mirta-RAMIRO [facility] Temperature Temporal Artery 36.6 Berta 08/12/2017 02:56:00 0125A-RAMIRO phillips Systolic Blood Pressure 190 mm[Hg] 01/22/2018 19:31:00 0125C-RAMIRO [facility] Diastolic Blood Pressure 80 mm[Hg] 01/22/2018 19:31:00 012Krishna-RAMIRO [facility] Temperature Tympanic 36.4 Berta 01/22/2018 19:31:00 0125C-RAMIRO [facility] Peripheral Pulse Rate 82 bpm 01/22/2018 19:31:00 012Krishna-RAMIRO [facility] Mean Arterial Pressure, Calc 117 mm[Hg] 01/22/2018 19:31:00 012Krishna-RAMIRO phillips Temperature Temporal Artery 36.9 Berta 12/05/2017 00:42:00 0125A-RAMIRO phillips Respiratory Rate 20 br/min 12/05/2017 00:42:00 012Mirta-RAMIRO Mullins Mean Arterial Pressure, Calc 88 mm[Hg] 12/15/2017 16:21:00 0125C-RAMIRO phillips Peripheral Pulse Rate 97 bpm 12/15/2017 16:21:00 0125C-RAMIRO Mullins Systolic Blood Pressure 120 mm[Hg] 12/15/2017 16:21:00 0125C-RAMIRO [facility]ins Diastolic Blood Pressure 72 mm[Hg] 12/15/2017 16:21:00 012Krishna-RAMIRO [facility] Temperature Tympanic 36.4 Berta 12/15/2017 16:21:00 0125C-RAMIRO Mullins Respiratory Rate 18 br/min 12/15/2017 16:21:00 0125C-RAMIRO Mullins Encounters Combined list of: 1) Encounters from Department of Veterans Affairs facilities going backup to the last 18 months, not all VA inpatient encounters are included; 2) Encounters from the Department of Defense facilities going backup to 280 months. Location Location Details Encounter Type Encounter Number Reason For Visit Attending Provider ADM Date DC Date Status Disposition Source [facility](Can non_FHC_T eam B) TELE CONSULT [id number] Notes Entered by: SHAHRIAR SIERRA 06 Mar 2015 1329 ------- ------- ------- ------- -- NETWORK RESULT- -02/28 ARELI ZAMARRIPA 03/06 [facility](C annon_F HC_Team B) [facility](Can non_FHC_T eam B) OUTPATIENT [id number] F/U COLEEN WILLETT 03/28 Released w/o Limitations [facility](C annon_F HC_Team B) [facility]) OUTPATIENT [id number] Per [facility] JOSE MCINTYRE 04/03 Released w/o Limitations [facility]) [facility]) OUTPATIENT [id number] [facility] JOSE MCINTYRE 04/10 Released w/o Limitations [facility]) [facility](Can non_FHC_T eam B) OUTPATIENT [id number] F/u per [facility] COLEEN WILLETT 04/11 Released w/o Limitations [facility](C annon_F HC_Team B) [facility](Can non_OpMed _Team A) TELE CONSULT [id number] Notes Entered by: MERLY WILKERSON 16 Apr 2015 1518 ------- ------- ------- ------- -- MRI script COLEEN WILLETT 04/16 [facility](C annon_O pMed_Te am A) [facility](Can non_FHC_T eam B) OUTPATIENT [id number] F/u Medicat COLEEN Molina 04/25 Released w/o Limitations [facility](C annon_F HC_Team B) [facility] OUTPATIENT [id number] MARGARITA MAYSDorcas Marshall 04/25 Released w/o Limitations [facility]) [facility]) OUTPATIENT [id number] JOSE MAYS 04/26 Released w/o Limitations [facility]) [facility](Can non_FHC_T eam B) TELE CONSULT [id number] Notes Entered by: SHAHRIAR SIERRA 30 Apr 2015 1024 ------- ------- ------- ------- -- NETWORK TANNER- R KNEE NORAAY-05/2015 COLEEN WILLETT 04/[facility](C rashidaF HC_Team B) [facility]) OUTPATIENT [id number] [facility] MARGARITA MCINTYREDorcas Marshall 04/30 Released w/o Limitations [facility]) [facility]) TELE CONSULT [id number] Notes Entered by: JOSE MCINTYRE 02 May 2015 0731 ------- ------- ------- ------- -- JOSE Jennings 05/[facility]) [facility](Can non_FHC_T eam B) TELE CONSULT [id number] Notes Entered by: ANISA MACHUCA 02 May 2015 0812 ------- ------- ------- ------- -- ANGUS STAPLES 05/02 Referred for Appointment [facility](C annbipinF HC_Team B) [facility](Can non_FHC_T eam B) TELE CONSULT [id number] Notes Entered by: HEATHER RUIZ 03 May 2015 1326 ------- ------- ------- ------- -- Network Results - Podiatr y - 04/2015 COLEEN WILLETT 05/[facility](C annon_F HC_Team B) [facility](Can non_[facility]_T ea B) TELE CONSULT [id number] Notes Entered by: LEATHA CARO 06 May 2015 1727 ------- ------- ------- ------- -- Network Results - MRI Brain - [id number] 8. COLEEN WILLETT 05/[facility](C annrhina_F HC_Team B) [facility](Can non_[facility] e[facility] B) TELE CONSULT [id number] Notes Entered by: Dorcas ARZOLA 10 May 2015 1151 ------- ------- ------- ------- -- BILATER AL MAMMOGR AM. LEFT BREAST ULTRASO UND RESULTS LINDA OAKES 05/10 [facility](C annrhina_F HC_Team B) [facility]) TELE CONSULT [id number] Notes Entered by: JOSE MCINTYRE 10 May 2015 1900 ------- ------- ------- ------- -- [facility]SE MCINTYRE 05/[facility]) [facility]) OUTPATIENT [id number] [facility] JOSE MCINTYRE 05/11 Admitted [facility]) [facility] OUT[facility] [id number] Pt [facility] ng [facility] COLEEN WILLETT 06/06 Released w/o Limitations [facility](Tio lawson_F HC_Team B) [facility]) TELE CONSULT [id number] Notes Entered by: JOSE MCINTYRE 06 Jun 2015 1302 ------- ------- ------- ------- -- JOSE Jennings 06/[facility]) [facility](Can non_[facility]_T eam A) TELE CONSULT [id number] Notes Entered by: SAMANTHA WILLIS 11 Jun 2015 1109 ------- ------- ------- ------- -- Needle Stick AISHWARYA KLEIN 06/[facility](Tio Mcnamara ed_Team A) [facility]) OUTPATIENT [id number] [facility] JOSE MCINTYRE 06/12 Released w/o Limitations [facility]) [facility]) OUTPATIENT [id number] PAP. 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 06/25 Released w/o Limitations [facility]) [facility](Can non_C_T eam B) TELE CONSULT [id number] Notes Entered by: ISHA RIZZO 26 Jun 2015 1322 ------- ------- ------- ------- -- 16 June 2015 [facility] ER GLENDY Grove 06/[facility](C lulu_F HC_Team B) [facility]) TELE CONSULT [id number] Notes Entered by: CHALINO MCGARRY 26 Jun 2015 1328 ------- ------- ------- ------- -- Care Coordin JOSE Hernandez 06/[facility](Can non_FHC_T eam B) TELE CONSULT [id number] Notes Entered by: NEETU PEREZ 02 Jul 2015 0913 ------- ------- ------- ------- -- LAB RESULTS AISHWARYA KLEIN 07/[facility](C annon_F HC_Team B) [facility](Can non_FHC_T eam B) OUTPATIENT [id number] URINATI NG BLOOD X2 DAYS COLEEN WILLETT 07/03 Released w/o Limitations [facility](C annon_F HC_Team B) [facility](Opt ometry [facility]) OUTPATIENT [id number] routine -ss TERRELL WILLAMS 07/03 Released w/o Limitations th [facility](O ptometr y [facility]) [facility](Can non_FHC_T eam B) TELE CONSULT [id number] Notes Entered by: HEATHER RUIZ 06 Jul 2015 1022 ------- ------- ------- ------- -- Network Results - Mental Health - 06/2015 COLEEN WILLTET 07/[facility](C annon_F HC_Team B) [facility] [facility]IENT [id number] [facility] JOSE MCINTYRE 07/10 Released w/o Limitations th [employer]([facility]) th [employer](Can non_FHC_T eam B) TELE CONSULT [id number] Notes Entered by: MISA CASH 16 Jul 2015 1425 ------- ------- ------- ------- -- NETWORK RESULTS -ER- COLEEN WILLETT 07/16th [employer](C annon_F HC_Team B) th [employer](Can non_FHC_T eam B) OUTPATIENT [id number] Resched uled Thyroid blookwo rk COLEEN WILLETT 07/17 Released w/o Limitations th [employer](C annon_F HC_Team B) [employer](EFM P) TELE CONSULT [id number] Notes Entered by: NATALIIA LIRA 17 Jul 2015 1524 ------- ------- ------- ------- -- [facility] Case Review SHAHEED BUCIO 07/17th [employer](E [facility]) th [employer](Can non_FHC_T eam B) TELE CONSULT [id number] Notes Entered by: NEETU PEREZ 18 Jul 2015 0746 ------- ------- ------- ------- -- BACK IS OUT GLENDY SILVA 07/18th [employer](C annrhina_F HC_Team B) [employer](Can non_FHC_T eam B) TELE CONSULT [id number] Notes Entered by: MISA CASH 18 Jul 2015 1152 ------- ------- ------- ------- -- NETWORK RESULTS -DELPHINE Marshall-07/17 COLEEN WILLETT 07/18th [employer](C annon_F HC_Team B) 27th [employer](Can non_FHC_T eam B) TELE CONSULT [id number] Notes Entered by: MISA CASH 18 Jul 2015 1625 ------- ------- ------- ------- -- NETWORK RESULTS -MRI L SPINE-1 09/18/14 COLEEN WILLETT 07/18 [employer](C annrhina_F HC_Team B) th [employer](Can non_FHC_T eam B) TELE CONSULT [id number] Notes Entered by: MISA CASH 20 Jul 2015 0943 ------- ------- ------- ------- -- NETWORK RESULTS -ER and ER (2)- COLEEN WILLETT 07/20 [employer](C annrhina_F HC_Team B) [employer](Can non_FHC_T eam B) TELE CONSULT [id number] Notes Entered by: THOMPSON 20 Jul 2015 1104 ------- ------- ------- ------- -- NETWORK RESULT- ER-JUL 01 COLEEN WILLETT 07/20 [employer](C annrhina_F HC_Team B) th [employer](Can non_FHC_T eam B) TELE CONSULT [id number] Notes Entered by: THOMPSON 20 Jul 2015 1117 ------- ------- ------- ------- -- NETWORK RESULT- ER(2)-2 JUL 01 COLEEN WILLETT 07/20 [employer](C annon_F HC_Team B) th [employer](Can non_FHC_T eam B) TELE CONSULT [id number] Notes Entered by: ANISA MACHUCA 24 Jul 2015 0925 ------- ------- ------- ------- -- GLENDY LOUIE 07/24th [employer](C annon_F HC_Team B) [employer](Can non_[facility]_T ea B) TELE CONSULT [id number] Notes Entered by: MISA CASH 24 Jul 2015 1005 ------- ------- ------- ------- -- NETWORK RESULTS -HOLTER MONITOR -08/31 COLEEN WILLETT 07/24 [employer](C annon_F HC_Team B) [employer](Can non_[facility]_T ea B) TELE CONSULT [id number] Notes Entered by: HEATHER RUIZ 25 Jul 2015 0829 ------- ------- ------- ------- -- Network Results - Neurolo gy - 06/2015 COLEEN WILLETT 07/25th [employer](C annon_F HC_Team B) [employer](Can non_[facility]_T ea B) TELE CONSULT [id number] Notes Entered by: NEETU PEREZ 30 Jul 2015 1404 ------- ------- ------- ------- -- URINE TEST GLENDY SILVA 07/30th [employer](C annon_F HC_Team B) th [employer](Angel Neal [facility] t) TELE CONSULT [id number] Notes Entered by: TYRON HAYES 31 Jul 2015 1307 ------- ------- ------- ------- -- Elzbieta wells [facility] M&V JOSR BAEZA 07/31 Other Not Elsewhere Classified th [employer](N urse Case Managem ent) 27th [employer](Angel se Case Managemen t) TELE CONSULT [id number] Notes Entered by: TYRON HAYES 01 Aug 2015 1423 ------- ------- ------- ------- -- [facility] JOSR HAYES 08/01 Other Not Elsewhere Classified 27th [employer](N urse Case Managem ent) 27th [employer](Can non_FHC_T eam B) TELE CONSULT [id number] Notes Entered by: ISHA RIZZO 07 Aug 2015 1440 ------- ------- ------- ------- -- [id number] [facility] AISHWARYA KLEIN 08/07th [employer](C annon_F HC_Team B) th [employer](Can non_FHC_T eam B) TELE CONSULT [id number] Notes Entered by: MISA CASH 20 Aug 2015 1015 ------- ------- ------- ------- -- NETWORK RESULTS -OPERAT ELIZABETH NOTE- COLEEN WILLETT 08/20th [employer](C annon_F HC_Team B) th [employer](Can non_FHC_T eam B) TELE CONSULT [id number] Notes Entered by: HEATHER RUIZ 21 Aug 2015 1250 ------- ------- ------- ------- -- Network Results - Cardiol ogy - 07/2015 COLEEN WILLETT 08/21th [employer](C annon_F HC_Team B) 27th [employer](Can non_FHC_T eam B) TELE CONSULT [id number] Notes Entered by: HEATHER RUIZ 31 Aug 2015 1010 ------- ------- ------- ------- -- Network Results - Cardiol ogy - 07/2015 COLEEN WILLETT 08/31th [employer](C annon_F HC_Team B) th [employer](Can non_FHC_T eam B) OUTPATIENT [id number] lab work for hep COLEEN Gallego 09/04 Released w/o Limitations th [employer](C annon_F HC_Team B) th [employer](Can non_FHC_T eam B) TELE CONSULT [id number] Notes Entered by: ANISA MACHUCA 13 Sep 2015 1328 ------- ------- ------- ------- -- SLEEP MACHINE NEEDED AISHWARYA KLEIN 09/13 [employer](C annon_F HC_Team B) th [employer](Can non_FHC_T eam B) TELE CONSULT [id number] Notes Entered by: ANISA MACHUCA 17 Sep 2015 1420 ------- ------- ------- ------- -- MEDICAT ION GLENDY HARRIS 09/17 [employer](C annon_F HC_Team B) th [employer](Can non_FHC_T eam B) TELE CONSULT [id number] Notes Entered by: HEATHER RUIZ 20 Sep 2015 1015 ------- ------- ------- ------- -- Network Results - Neurolo gy - 08/2015 COLEEN WILLETT 09/20th [employer](C annon_F HC_Team B) th [employer](Can non_FHC_T eam B) TELE CONSULT [id number] Notes Entered by: HEATHER RUIZ 25 Sep 2015 0844 ------- ------- ------- ------- -- Network Results - Sleep Study - 07/2015 COLEEN WILLETT 09/25th [employer](C annon_F HC_Team B) 27th [employer](Can non_FHC_T eam B) TELE CONSULT [id number] Notes Entered by: MISA CASH 08 Oct 2015 0757 ------- ------- ------- ------- -- NETWORK RESULTS -CARDIO LOGY- COLEEN WILLETT 10/08th [employer](C annon_F HC_Team B) th [employer](Can non_FHC_T eam B) OUTPATIENT [id number] CC ACID REFLUX COLEEN WILLETT 10/08 Released w/o Limitations th [employer](C annon_F HC_Team B) 27th [employer](Can non_FHC_T eam B) TELE CONSULT [id number] Notes Entered by: Wicho EDWARDS 12 Oct 2015 1512 ------- ------- ------- ------- -- Possibl e yeast infecti on due to antibio tics GLENDY SILVA 10/12 [employer](C annon_F HC_Team B) th [employer](Can non_FHC_T eam B) TELE CONSULT [id number] Notes Entered by: NEETU PEREZ 15 Oct 2015 1325 ------- ------- ------- ------- -- MED EDUARDO CASH Released w/o Limitations th [employer](C annon_F HC_Team B) th [employer](Can non_FHC_T eam B) TELE CONSULT [id number] Notes Entered by: HEATHER RUIZ 16 Oct 2015 1453 ------- ------- ------- ------- -- Network Results - Endocri nology - 08/2015 COLEEN WILLETT 10/15 [employer](C annrhina_F HC_Team B) [facility] [employer]([facility]) TELE CONSULT [id number] Notes Entered by: LANI BARNHART 19 Oct 2015 1015 ------- ------- ------- ------- -- VULVA BLEEDIN LUIS MANUEL Maddox R ED AND SWOLLEN ALL BERNAL 10/18 [employer]([facility]) [facility] [employer]([facility] [place]) OUTPATIENT [id number] pelvic exam ALL BERNAL 10/21 Released w/o Limitations [employer]([facility]) [facility] [employer](Can non_FHC_T eam B) TELE CONSULT [id number] Notes Entered by: LANI BARNHART 23 Oct 2015 1223 ------- ------- ------- ------- -- LAB RESULTS ALL BERNAL 10/22 [employer](C annrhina_F HC_Team B) [facility] [employer](Can non_FHC_T eam B) TELE CONSULT [id number] Notes Entered by: MISA CASH 12 Nov 2015 1559 ------- ------- ------- ------- -- NETWORK RESULTS -CPAP COMPLIA NCE REPORT- 6 COLEEN WILLETT 11/11 [employer](C lulu_F HC_Team B) [facility] [employer](Can non_FHC_T eam B) OUTPATIENT [id number] CC KNEES PAINFUL AND SWELLIN G GETTING WORSE COLEEN WILLETT 11/15 Released w/o Limitations [employer](C annrhina_F HC_Team B) th [employer](Can non_FHC_T eam B) TELE CONSULT [id number] Notes Entered by: HEATHER RUIZ 16 Nov 2015 1410 ------- ------- ------- ------- -- Network Results - Neurosu rgery - 07/2015 ; Pain Managem ent - 10/2015 ; ARELI ZAMARRIPA 11/15 [employer](C annrhina_F HC_Team B) [employer]([facility]) OUTPATIENT [id number] Obesity , unspeci fied MANUEL MOSS 11/19 Released w/o Limitations [employer]([facility]) [employer](Can non_FHC_T eam B) TELE CONSULT [id number] Notes Entered by: MISA CASH 21 Nov 2015 1352 ------- ------- ------- ------- -- NETWORK RESULTS -CAROSOSA D ARTERY DUPLEX REPORT- 6 COLEEN WILLETT 11/20 [employer] [facility] [employer](C annrhina_F HC_Team B) [employer](Can non_FHC_T eam B) TELE CONSULT [id number] Notes Entered by: MISA CASH 23 Nov 2015 1718 ------- ------- ------- ------- -- NETWORK RESULTS -CARDIO LOGY- COLEEN WILLETT 11/22th [employer] [facility] [employer](C annrhina_F HC_Team B) th [employer] [facility] [employer](Can non_FHC_T eam B) TELE CONSULT [id number] Notes Entered by: MISA CASH 27 Nov 2015 1620 ------- ------- ------- ------- -- NETWORK RESULTS -MRI L and R KNEES-0 11/26/15 BOSTONDIMITRY N 11/26 Advice Assessment th [employer] [employer] [facility] [employer](C annon_F HC_Team B) th [employer](Can non_FHC_T eam B) TELE CONSULT [id number] Notes Entered by: Linh SILVA 28 Nov 2015 1545 ------- ------- ------- ------- -- Med request GLENDY SILVA 11/27th [employer](C annon_F HC_Team B) th [employer] [facility] [employer](Can non_FHC_T eam B) TELE CONSULT [id number] Notes Entered by: HEATHER RUIZ 04 Dec 2015 1058 ------- ------- ------- ------- -- Network Results - Podiatr y - 11/2015 COLEEN WILLETT 12/03th [employer](C annon_F HC_Team B) th [employer](Can non_FHC_T eam B) TELE CONSULT [id number] Notes Entered by: MISA CASH 05 Dec 2015 1551 ------- ------- ------- ------- -- NETWORK RESULTS -UPPER GI ENDOSCO PY-10/17 09/01 COLEEN WILLETT 12/04th [employer](C annon_F HC_Team B) th [employer](Can non_FHC_T eam B) TELE CONSULT [id number] Notes Entered by: Wicho EDWARDS 06 Dec 2015 1050 ------- ------- ------- ------- -- Elzbieta WILSONDIMITRY Wicho 12/05 Referred for Appointment 27th [employer] [facility] [employer](C annon_F HC_Team B) 27th [employer](Can non_FHC_T eam B) TELE CONSULT [id number] Notes Entered by: MISA CASH 06 Dec 2015 1722 ------- ------- ------- ------- -- NETWORK RESULTS -CARDIO LOGY- COLEEN WILLETT 12/05th [employer](C annon_F HC_Team B) 27th [employer](Can non_FHC_T eam B) TELE CONSULT [id number] Notes Entered by: KODI COREY 10 Dec 2015 1133 ------- ------- ------- ------- -- Candelario wolffogpia. [id number] COLEEN WILLETT 12/09th [employer] [facility] [employer](C annon_F HC_Team B) 27th [employer](Can non_FHC_T eam B) [id number] [facility] COLEEN Vieyra 12/11 Released w/o Limitations 27th [employer](C annon_F HC_Team B) 27th [employer](Can non_FHC_T eam B) TELE CONSULT [id number] Notes Entered by: LANI BARNHART 18 Dec 2015 1034 ------- ------- ------- ------- -- MEDICAT ION REFILL GLENDY SILVA 12/17th [employer] [facility] [employer](C annon_F HC_Team B) [facility] , [facility] TO [facility] [id number] MAHAMED POWER 01/14 DISCHARGED HOME [facility] [facility], DIRECT TO [facility] [id number] MAHAMED POWER 01/21 DISCHARGED HOME [facility]([facility] [address]) OUTPATIENT [id number] HAVING A REACTIO N TO HER BLOOD THINNER MICHAEL ROMERO Kamla 02/11 Released w/o Limitations [facility] [address]) [facility]([facility] [address]) OUTPATIENT [id number] Notes Entered by: Lnih FAM 13 Feb 2016 1322 ------- ------- ------- ------- -- Risk Managem ent Review SOHAM FAM 02/12 Released w/o Limitations [facility] [address]) [facility] [facility], DIRECT TO [facility] [phone] [id number] ERIC ARTEAGA 02/13 DISCHARGED HOME [facility] INPATIENT [id number] [facility] JEFF SAUCEDO 02/13 Inpatient- Still a Patient [facility] sc[facility] bi) [facility] [facility]tico[facility] lation) TELE CONSULT [id number] Notes Entered by: LUNA 19 Feb 2016 1555 ------- ------- ------- ------- -- Follow up hospita l davidar STEVEN Begum 02/18 [facility] Cardiol ogy Anticoa gulatio n) [facility]([facility] F[facility]) OUTPATIENT [id number] Notes Entered by: Linh FAM 20 Feb 2016 1024 ------- ------- ------- ------- -- case managem ent SOHAM FAM 02/19 Released w/o Limitations [facility] [address]) [facility] [place] [facility]) OUTPATIENT [id number] Pulmona ry embolis STEVEN Gutierrez 02/20 Released w/o Limitations [facility](M ad[facility] Cardiol ogy Anticoa gulatio n) [facility]([facility]tico[facility] l[facility]) TELE CONSULT [id number] Notes Entered by: Pia ESTEVES 25 Feb 2016 0932 ------- ------- ------- ------- -- Labs STEVEN BAXTER 02/24 [facility](M ad[place] Cardiol ogy Anticoa gulatio n) [facility] [facility]tico[facility] lation) TELE CONSULT [id number] Notes Entered by: LUNA 25 Feb 2016 1511 ------- ------- ------- ------- -- Pt not able to do labs today STEVEN BAXTER 02/24 [facility](M ad[place] Cardiol ogy Anticoa gulatio n) [facility]([facility] Medical [address] [place]) TELE CONSULT [id number] Notes Entered by: VÍCTOR RODRIGUEZ 26 Feb 2016 0838 ------- ------- ------- ------- -- Appoint ment SOHAM FAM 02/25 [facility] [address]) [facility] [place] [facility]ticoagu lation) TELE CONSULT [id number] Notes Entered by: LUNA 26 Feb 2016 1603 ------- ------- ------- ------- -- basilio valerioion of INR results and STEVEN Albright 02/25 [facility]([place] Cardiol ogy Anticoa gulatio n) [facility] TELE CONSULT [id number] Notes Entered by: GABY MOLINA 27 Feb 2016 1116 ------- ------- ------- ------- -- Family hx breast/ ocarian cancers GABY MORE 02/26 [facility]([facility] Medical [address]) OUTPATIENT [id number] Notes Entered by: Linh FAM 28 Feb 2016 1049 ------- ------- ------- ------- -- case SOHAM Muniz 02/27 Released w/o Limitations [facility] F[facility]) [facility]([facility] igan Cardiolog y Anticoagu lation) TELE CONSULT [id number] Notes Entered by: ALEJANDRA AGRAWAL 29 Feb 2016 1636 ------- ------- ------- ------- -- nano devlinm ALEJANDRA Betts 02/28 [facility](M [facility] Cardiol ogy Anticoa gulatio n) [facility]([facility] igan Cardiolog y Anticoagu lation) TELE CONSULT [id number] Notes Entered by: ALEJANDRA AGRAWAL 10 Mar 2016 1348 ------- ------- ------- ------- -- nano devlinm ALEJANDRA Betts 03/10 [facility]([place] [facility] Cardiol ogy Anticoa gulatio n) [facility]([facility]) OUTPATIENT [id number] Prebx appt GABY MORE F 03/10 Released w/o Limitations [facility]) [facility] OUTPATIENT [id number] Prebx ed/coun carrie GABY MORE F 03/13 Released w/o Limitations [facility]) [facility]([facility] igan Cardiolog y Anticoagu lation) TELE CONSULT [id number] Notes Entered by: KENNEDY E 13 Mar 2016 1519 ------- ------- ------- ------- -- Patient has upcomin g procedu re, may need to tempora rily discont inue anticoSTEVEN Kasper 03/13 [facility]([place] [facility] Cardiol ogy Anticoa gulatio n) [facility]([facility] igan Cardiolog y Anticoagu lation) TELE CONSULT [id number] Notes Entered by: ISHA MUNOZ 14 Mar 2016 1258 ------- ------- ------- ------- -- Documen tation of INR results and warfari ng dosing. \ ISHA MUNOZ 03/14 [facility]([place] [facility] Cardiol ogy Anticoa gulatio n) [facility]([facility] igan Cardiolog y Anticoagu lation) TELE CONSULT [id number] Notes Entered by: ISHA MUNOZ 17 Mar 2016 1325 ------- ------- ------- ------- -- Documen tation of INR results and warfari ng dosing. ISHA MUNOZ [facility] Anticoa [facility]atio n) [facility]([facility]) TELE CONSULT [id number] Notes Entered by: Steff JACOBSEN 18 Mar 2016 0905 ------- ------- ------- ------- -- Virtual Polypha rmacy review IAW SAÚL/MA DC Policy Omlina [id number] JONH JACOBSEN 03/18 [facility] [address]) [facility]([facility]ticoagu lation) TELE CONSULT [id number] Notes Entered by: Mali GROVES 21 Mar 2016 1445 ------- ------- ------- ------- -- INR results and dosing plan GEORGETTE MOTA 03/21 [facility]([place] [facility] Cardiol ogy Anticoa gulatio n) [facility]([facility]) TELE CONSULT [id number] Notes Entered by: GABY MOLINA 02 Apr 2016 1327 ------- ------- ------- ------- -- Breast biopsy results GABY MORE 04/02 [facility] [facility]ticoagu lation) TELE CONSULT [id number] Notes Entered by: SARA DAIGLE 04 Apr 2016 1145 ------- ------- ------- ------- -- Patient concern s ISHA MUNOZ 04/04 [facility](M [facility] Cardiol ogy Anticoa gulatio n) [facility]([facility]) OUTPATIENT [id number] migrane s/dizzy HARSHA Snyder 04/07 Released w/o Limitations [facility]) [facility] [place] [facility]ticoagu lation) TELE CONSULT [id number] Notes Entered by: Mali GROVES 11 Apr 2016 1526 ------- ------- ------- ------- -- INR results and dosing plan , venlafa xine 100mg starts tomorro ALEJANDRA Muñiz 04/11 [facility](Re[facility]omas [facility]iol [facility] Anticoa gulatio n) [facility]([address]) TELE CONSULT [id number] Notes Entered by: Linh FAM 22 May 2016 0905 ------- ------- ------- ------- -- f/u HARSHA De La Cruz 05/22 [facility](A [address]) [facility]([facility]) TELE CONSULT [id number] Notes Entered by: GABY MOLINA 29 May 2016 1311 ------- ------- ------- ------- -- Family hx breast cancer GABY MORE 05/29 [facility]) [facility]([address]) TELE CONSULT [id number] Notes Entered by: JOSSELIN NEGRON 30 May 2016 1508 ------- ------- ------- ------- -- Med Rx problem s JOSSELIN NEGRON 05/30 [facility] [address]) [facility]([address]) TELE CONSULT [id number] Notes Entered by: JASMEET WOLFF 02 Jun 2016 0803 ------- ------- ------- ------- -- prescri ption not called in correct ly JOSSELIN NEGRON 06/02 [facility](A [address]) [facility]([address]) TELE CONSULT [id number] Notes Entered by: SAWYER GOIRDANO 16 Jun 2016 0854 ------- ------- ------- ------- -- [facility] ANDI GIORDAN[facility] 06/16 [facility] for [facility](A [address]) [facility]([address]) OUTPATIENT [id number] [facility] pain ARLINE HARSHA Cason 06/18 Released w/o Limitations [facility](A [address]) [facility]olog y Anticoagu lation) TELE CONSULT [id number] Notes Entered by: ISHA MUNOZ 24 Jun 2016 1245 ------- ------- ------- ------- -- Pt had PT/INR drawn with request of INR results and warfari n dosing / Documen tat ISHA MUNOZ 06/24 [facility]iol [facility] Anticoa gulatio n) [facility]([address]) OUTPATIENT [id number] pain VÍCTOR Wheat 07/07 [facility]ased w/o Limitations [facility](A [address]) [facility]([address]) TELE CONSULT [id number] Notes Entered by: VÍCTOR RODRIGUEZ 09 Jul 2016 1231 ------- ------- ------- ------- -- Adrianat FILIPE Maxwell 07/09 [facility] Self [facility](A [address]) [facility]) OUTPATIENT [id number] Migrain e, unspeci fied, not intract able, with status migrain osus ADRIAN TAPIA 07/16 Released w/o Limitations [facility]) [facility]([address]) TELE CONSULT [id number] Notes Entered by: Linh FAM 16 Jul 2016 1325 ------- ------- ------- ------- -- MRI order needed for Neurosu VÍCTOR Mustafa 07/16 [facility](A [address]) [facility]([place] Intervent ional Radiology ) OUTPATIENT [id number] Notes Entered by: NORBERT TAPIA 16 Jul 2016 1431 ------- ------- ------- ------- -- Botox ADRIAN TAPIA 07/16 Released w/o Limitations [facility](Rebecca thomas Interve ntional Radiolo gy) [facility]([address]) TELE CONSULT [id number] Notes Entered by: Linh FAM 17 Jul 2016 0912 ------- ------- ------- ------- -- rx request VÍCTOR RODRIGUEZ 07/17 [facility](A [address]) [facility](Ana rosurgery ) OUTPATIENT [id number] Low back pain DEEDEE LAWRENCE 07/22 Released w/o Limitations [facility](N eurosur melissa) [facility]([place] Cardiolog y Anticoagu lation) TELE CONSULT [id number] Notes Entered by: ISHA MUNOZ 24 Jul 2016 0941 ------- ------- ------- ------- -- Pt had PT/INR drawn with request of INR results and warfari n dosing / Documen tat ISHA MUNOZ 07/24 [facility]([place] Cardiol ogy Anticoa gulatio n) [facility]([place] RCC) TELE CONSULT [id number] Notes Entered by: SENTHIL SandsSAHARA Dorcas 29 Jul 2016 1019 ------- ------- ------- ------- -- NETWORK RESULTS /GI/REF LUX EVAL/DO S 6[facility]/29 Other Not Elsewhere Classified [facility](M [facility] RCC) [facility]([place] [facility]) TELE CONSULT [id number] Notes Entered by: SENTHIL SandsSAHARA Dorcas 29 Jul 2016 1217 ------- ------- ------- ------- -- NETWORK RESULTS /GI/LAB RS/DOS /[facility] Dorcas 07/29 Other Not Elsewhere Classified [facility](M [facility] RCC) [facility] F[facility]) OUTPATIENT [id number] DISCUSS BARIATR IC SURGERY VÍCTOR RODRIGUEZ 07/31 Released w/o Limitations [facility](A y Medical Home F01B [facility]) [facility] F[facility]) OUTPATIENT [id number] Notes Entered by: Linh FAM 05 Aug 2016 1252 ------- ------- ------- ------- -- case manage ent SOHAM FAM 08/05 Released w/o Limitations [facility](A y Medical Home F01B [facility]) [facility] F[facility]B [facility]) TELE CONSULT [id number] Notes Entered by: Linh FAM 05 Aug 2016 1258 ------- ------- ------- ------- -- bladder concern s VÍCTOR RODRIGUEZ 08/05 [facility](A y Medical Home F01B [facility]) [facility] y Medical [facility] F[facility]B [facility]) TELE CONSULT [id number] Notes Entered by: VÍCTOR RODRIGUEZ 05 Aug 2016 1442 ------- ------- ------- ------- -- Parking Sticker JOSSELIN NEGRON Sanjay 08/05 Referred for Appointment [facility] [address]) [facility](Ana rosurgery ) OUTPATIENT [id number] 2ND OPINION , PRIOR DR DK Ross PT. RAYMOND KENNEDY 08/06 Released w/o Limitations [facility](N eurosur melissa) [facility] Medical [address]) TELE CONSULT [id number] Notes Entered by: VÍCTOR RODRIGUEZ 06 Aug 2016 1508 ------- ------- ------- ------- -- Urine results DONNA REESE 08/06 Referred for Appointment [facility](A [address]) [facility]([place] Cardiolog y Anticoagu lation) TELE CONSULT [id number] Notes Entered by: LUNA 07 Aug 2016 144 ------- ------- ------- ------- -- End of Oral Anticoa gulatio n Therapy STEVEN BAXTER 08/07 [facility]([place] Cardiol ogy Anticoa gulatio n) [facility]([place] Pain Interdisc iplinary) OUTPATIENT [id number] INTAKE DARRIAN LEACH 08/12 Released w/o Limitations [facility]([place] Pain Interdi sciplin bi) [facility]([place] [facility]) TELE CONSULT [id number] Notes Entered by: Vickie PEREZ 13 Aug 2016 1542 ------- ------- ------- ------- -- NETWORK RESULTS GI EGD 016 JO PEREZ Sanjay 08/13 Other Not Elsewhere Classified [facility] [facility]) Harpreet [facility] F[facility]B [facility]) OUTPATIENT [id number] pain in back,ri bs and hips,fe ll last week VÍCTOR RODRIGUEZ 08/14 Released w/o Limitations [facility](A rmy Medical [facility] F01B [facility]) [facility] TELE CONSULT [id number] Notes Entered by: VÍCTOR RODRIGUEZ 15 Aug 2016 1432 ------- ------- ------- ------- -- Follow- up VÍCTOR RODRIGUEZ 08/15 [facility](A r[facility] Medical [facility] F[facility]) [facility](Uro logy) TELE CONSULT [id number] Notes Entered by: REJI DIAZ 19 Aug 2016 1427 ------- ------- ------- ------- -- Hematur ia DANYELL DIAZ 08/19 Released w/o Limitations [facility](U rology) [facility]([place] [facility]) TELE CONSULT [id number] Notes Entered by: SINTIA NAVARRETE 20 Aug 2016 0805 ------- ------- ------- ------- -- NETWORK RESULTS /US RUQ/DOS [id number]/ UPLOADE D INTO [facility] KHADAR NAVARRETE 08/20 Other Not Elsewhere Classified [facility] [facility]) [facility](Gen eral Surgery) OUTPATIENT [id number] Obesity , unspeci fied IAN LOPEZ 08/21 Released w/o Limitations [facility](G eneral Surgery ) [facility]([place] [facility]) TELE CONSULT [id number] Notes Entered by: BRANDT BATISTA 22 Aug 2016 1103 ------- ------- ------- ------- -- NETWORK RESULTS GI DIAGNOS TIC STUDIES / LABS DOS 12.9.20 16 BRANDT BATISTA 08/22 Other Not Elsewhere Classified [facility] [facility]) [facility]([place] Pain Interdisc iplinary) OUTPATIENT [id number] low back pain (INT EVAL) FROILAN MORRIS 08/27 Released w/o Limitations [facility]([place] Pain Interdi sciplin bi) [facility] F[facility]) TELE CONSULT [id number] JOSSELIN NEGRON 08/29 Referred for Appointment [facility]B [facility]) [facility] ADMISSION RESULTING FROM [facility], DIRECT TO [facility] [id number] RAYMOND KENNEDY 09/01 DISCHARGED HOME [facility]([place] Weight Managemen t Case Managemen t) OUTPATIENT [id number] Notes Entered by: MARISELA CANALES 04 Sep 2016 1447 ------- ------- ------- ------- -- removal from bariatr ic pathway JOSE E CANALES 09/04 Released w/o Limitations [facility]([place] Weight Managem ent Case Managem ent) [facility] F[facility]B [facility]) TELE CONSULT [id number] Notes Entered by: GIANFRANCO MONTALVO 05 Sep 2016 0857 ------- ------- ------- ------- -- [facility] Inpatie nt Follow Up GIANFRANCO MONTALVO 09/05 [facility] F[facility]B [facility]) [facility] F[facility]B [facility]) TELE CONSULT [id number] Notes Entered by: VÍCTOR RODRIGUEZ 05 Sep 2016 1117 ------- ------- ------- ------- -- ECHO Pain Report VÍCTOR RODRIGUEZ 09/05 [facility] [address]) [facility] ER, DIRECT TO [facility] [id number] ARELI COUCH 09/08 DISCHARGED HOME [facility] Medical Home [address]) TELE CONSULT [id number] Notes Entered by: GIANFRANCO MONTALVO 12 Sep 2016 0831 ------- ------- ------- ------- -- [facility]AM[facility] Inpatie nt Follow Up VÍCTOR RODRIGUEZ 09/12 [facility] [address]) [facility]) TELE CONSULT [id number] Notes Entered by: GABY MOLINA 17 Sep 2016 1101 ------- ------- ------- ------- -- Br cancer hi risk f/u GABY MORE 09/17 [facility]) [facility]([address]) TELE CONSULT [id number] Notes Entered by: Linh FAM 17 Sep 2016 1529 ------- ------- ------- ------- -- med refill SOHAM FAM 09/17 [facility] [address]) [facility]) OUTPATIENT [id number] Med Review BRADY SAUCEDO 09/19 Released w/o Limitations [facility]- armacy [facility]) [facility] Medical [address]) OUTPATIENT [id number] f/u hosp discect malorie/torrez inectom y L5 VÍCTOR RODRIGUEZ 09/19 Released w/o Limitations [facility](A y Medical Home 1B [facility]) [facility](Uro logy) OUTPATIENT [id number] hematur OLIVE Ledbetter 09/23 Released w/o Limitations [facility](U rology) [facility] Medical [address] [place]) OUTPATIENT [id number] Notes Entered by: Linh FAM 23 Sep 2016 1508 ------- ------- ------- ------- -- case managem ent SOHAM FAM 09/23 Released w/o Limitations [facility](A [facility] [place] [id number] [facility]) [facility]([address] [facility]) TELE CONSULT [id number] Notes Entered by: VÍCTOR RODRIGUEZ 24 Sep 2016 0717 ------- ------- ------- ------- -- SOHAM Nicholson 09/24 [facility] 1B [facility]) [facility](Ana rosurgery ) OUTPATIENT [id number] post-op f/u, DOS 08 September 2016 RAYMOND KENNEDY 09/24 Released w/o Limitations [facility](N eurosur melissa) [facility]([address] [place]) TELE CONSULT [id number] Notes Entered by: Linh FAM 24 Sep 2016 0943 ------- ------- ------- ------- -- SOHAM Trejo 09/24 [facility](A [facility] [place] [id number] [facility]) [facility]([place] Application Support Lead Oncology) OUTPATIENT [id number] GENETIC CROP SCOUT ING/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/?H RT IESHA DAVALOS 09/30 Released w/o Limitations [facility]([place] Application Support Lead Oncolog y) [facility] Medical [place] [id number] [facility]) OUTPATIENT [id number] Notes Entered by: Linh FAM 20 Oct 2016 1455 ------- ------- ------- ------- -- Case Managerebecca ent SOHAM FAM 10/20 Released w/o Limitations [facility]B [facility]) [facility] Medical [address]) TELE CONSULT [id number] Notes Entered by: JOSSELIN NEGRON 28 Oct 2016 1504 ------- ------- ------- ------- -- Labs prior to apptj JOSSELIN NEGRON 10/28 Referred for Appointment [facility] [address]) [facility](Ana rology Clinic) OUTPATIENT [id number] ADRIAN Mejia 10/29 Released w/o Limitations [facility](N eurolog y Clinic) [facility]([address]) OUTPATIENT [id number] F/U FOR IRON LEVELS IRINA GIL 11/05 Released w/o Limitations [facility](A [facility] Home 1B [facility]) [facility]([place] [facility]) TELE CONSULT [id number] Notes Entered by: SAHARA POLLACK 06 Nov 2016 0928 ------- ------- ------- ------- -- NETWORK RESULTS /GI/EGD BX/DOS 7/UPLOA DED IN TEJAS SAHARA RAMÍREZ 11/06 Other Not Elsewhere Classified [facility](M martha RCC) [facility]([place] Echo Pain Teleconfe ren) TELE CONSULT [id number] Notes Entered by: Salinas LEACH 13 Nov 2016 1735 ------- ------- ------- ------- -- ECHO Pain TeleCon ference Present ation 04 Sep 2016 MARTINEZ LEACHI Linh 11/14 [facility](Rebecca kongsonia Echo Pain Telecon ference ) [facility]([address]) OUTPATIENT [id number] Notes Entered by: Linh FAM 30 Dec 2016 1731 ------- ------- ------- ------- -- case managem ent SOHAM FAM 12/31 Released w/o Limitations [facility](A [address]) [facility]([address]) TELE CONSULT [id number] Notes Entered by: Linh FAM 08 Jan 2017 1427 ------- ------- ------- ------- -- radiolo gy request s JOSSELIN NEGRON 01/08 Referred for Appointment [facility](A [address]) [facility]([address]) OUTPATIENT [id number] Pt fell, hurt her back PABLO HILLS 01/08 Released w/o Limitations [facility](A [address]) [facility](Ana rosurgery ) OUTPATIENT [id number] had fall recentl y needs reeval. RAYMOND KENNEDY 01/20 Released w/o Limitations [facility]([place]) [facility] Health Outcome Managemen t) OUTPATIENT [id number] Notes Entered by: Linh FAM 26 Jan 2017 1212 ------- ------- ------- ------- -- case managem ent SOHAM FAM 01/26 Released w/o Limitations [facility] Health Outcome Managem ent) [facility]([address]) TELE CONSULT [id number] Notes Entered by: JOSSELIN NEGRON 29 Jan 2017 0838 ------- ------- ------- ------- -- Imaging results ERIC JESSICA 01/29 Referred for Appointment [facility](A [facility] F01B [facility]) [facility]([place] [address] Griff) OUTPATIENT [id number] review dexa scan and labs RUANOJOSE V 02/06 Released w/o Limitations [facility](A [facility] F01B [facility]) [facility] Optometry ) OUTPATIENT [id number] eye exam PAU KOEHLER 02/13 Released w/o Limitations [facility] Optomet ry) [facility] Health Outcome Managemen t) OUTPATIENT [id number] Notes Entered by: Linh FAM 17 Mar 2017 1106 ------- ------- ------- ------- -- case managem ent SOHAM FAM 03/17 [facility] Health Outcome Managem ent) [facility]([place] [address] [facility]) TELE CONSULT [id number] Notes Entered by: Linh FAM 19 Mar 2017 1640 ------- ------- ------- ------- -- referra l request for Bariatr ic Surgery ERIC JESSICA 03/19 Referred for Appointment [facility](A [place] [id number] [facility]) [facility]([place] [address] Griff) OUTPATIENT [id number] referra villeda for bariatr ic surgery [place] 03/23 Released w/o Limitations [facility](A [place] [address] [facility]) [facility]) OUTPATIENT [id number] well woman exam/di scuss hormone s MARIBELL JOHN 03/26 Released w/o Limitations [facility]) [facility]) TELE CONSULT [id number] Notes Entered by: GABY MOLINA 01 Apr 2017 1447 ------- ------- ------- ------- -- Family hx bresat cancer membership counselor GABY MORE 04/01 [facility]) [facility]) TELE CONSULT [id number] Notes Entered by: Linh FAM 16 Apr 2017 1408 ------- ------- ------- ------- -- MED REFILL ERIC JESSICA 04/16 Medication Refill Forwarded [facility](A [facility] F0 [facility]) [facility] Health Outcome Managemen t) OUTPATIENT [id number] Notes Entered by: Linh FAM 21 Apr 2017 0929 ------- ------- ------- ------- -- case managem ent SOHAM FAM 04/21 Released w/o Limitations [facility] Health Outcome Managem ent) [facility](Gen eral Surgery) OUTPATIENT [id number] Obesity , unspeci fied IAN LOPEZ 04/23 Released w/o Limitations [facility](G eneral Surgery ) [facility](Ana rology Clinic) OUTPATIENT [id number] Botox ADRIAN TAPIA 04/24 Released w/o Limitations [facility](N eurolog y Clinic) [facility] Weight Managemen t Case Managemen t) OUTPATIENT [id number] BariJOSE E Paulson 04/28 Released w/o Limitations [facility] Weight Managem ent Case Managem ent) [facility]) OUTPATIENT [id number] healthy eating PATEL QUINN 04/28 Released w/o Limitations [facility](Rebecca thomas Nutriti on Clinic) [facility] F[facility]B [facility]) OUTPATIENT [id number] [facility] [place] Wero 04/28 Released w/o Limitations [facility](A [facility] Medical [facility] F01B [place]) [facility]([place] Social Work Outpatien t) OUTPATIENT [id number] [facility]3] Support Group FRANSICO VEGA 04/29 Released w/o Limitations [facility]([place] Social Work Outpati ent) [facility] F[facility]) TELE CONSULT [id number] [place] Wero 05/05 [facility](A [facility] Medical Home F01B [place]) [facility]([place] Application Support Lead Oncology) OUTPATIENT [id number] PT ESTEVAN BARTON GENETIC CROP SCOUT ING W/STG OCT 03, COULD NO RETRIEV E RCLIN, GEORGIE GREENE 05/19 Released w/o Limitations [facility]([place] Application Support Lead Oncolog y) [facility]([place] Weight Managemen t Case Managemen t) OUTPATIENT [id number] Notes Entered by: ZARINA IBRAHIM 21 May 2017 0752 ------- ------- ------- ------- -- Chart review for [facility] DEVORAH ALCARAZ 05/21 Released w/o Limitations [facility]([place] Weight Managem ent Case Managem ent) Procedures Combined list of: 1) Procedures from Department of Veterans Affairs facilities going back up to thelast 18 months, not all VA non-surgical procedures are included; 2) All procedures from the Department of Defense facilities. Procedure Procedure Type Code Date Perfomer Comments Sourc e No data available for this section [facility] TELE ASSESS & MGT SRV PROV QUAL NONPHYS HLTH CARE PRO TO EST PAT,PARENT,GUARD NOT ORIG REL ASSESS & MGT SRV PROV W/IN PREV 7 DAYS NOR LEAD ASSESS & MGT SRV/PX W/IN NXT 24 HR/SOON APT;5-10 MIN MED DIS 11/27 DoD MEDICAL NUTRITION THERAPY; GROUP (2 OR MORE INDIVIDUAL(S)), EACH 30 MINUTES 11/19 DoD TELE ASSESS & MGT SRV PROV QUAL NONPHYS HLTH CARE PRO TO EST PAT,PARENT,GUARD NOT ORIG REL ASSESS & MGT SRV PROV W/IN PREV 7 DAYS NOR LEAD ASSESS & MGT SRV/PX W/IN NXT 24 HR/SOON APT;5-10 MIN MED DIS 10/12 DoD TELE ASSESS & MGT SRV PROV QUAL NONPHYS HLTH CARE PRO TO EST PAT,PARENT,GUARD NOT ORIG REL ASSESS & MGT SRV PROV W/IN PREV 7 DAYS NOR LEAD ASSESS & MGT SRV/PX W/IN NXT 24 HR/SOON APT;5-10 MIN MED DIS 09/13 DoD CASE MANAGEMENT, EACH 15 MINUTES 08/01 DoD CASE MANAGEMENT, EACH 15 MINUTES 07/31 DoD TELE ASSESS & MGT SRV PROV QUAL NONPHYS HLTH CARE PRO TO EST PAT,PARENT,GUARD NOT ORIG REL ASSESS & MGT SRV PROV W/IN PREV 7 DAYS NOR LEAD ASSESS & MGT SRV/PX W/IN NXT 24 HR/SOON APT;5-10 MIN MED DIS 07/30 DoD DETERMINATION OF REFRACTIVE STATE 07/03 DoD TELE ASSESS & MGT SRV PROV QUAL NONPHYS HLTH CARE PRO TO EST PAT,PARENT,GUARD NOT ORIG REL ASSESS & MGT SRV PROV W/IN PREV 7 DAYS NOR LEAD ASSESS & MGT SRV/PX W/IN NXT 24 HR/SOON APT;5-10 MIN MED DIS 06/26 DoD SCREENING PAPANICOLAOU SMEAR; OBTAINING, PREPARING AND CONVEYANCE OF CERVICAL OR VAGINAL SMEAR TO LABORATORY 06/25 DoD TELE ASSESS & MGT SRV PROV QUAL NONPHYS HLTH CARE PRO TO EST PAT,PARENT,GUARD NOT ORIG REL ASSESS & MGT SRV PROV W/IN PREV 7 DAYS NOR LEAD ASSESS & MGT SRV/PX W/IN NXT 24 HR/SOON APT;5-10 MIN MED DIS 06/11 DoD TELE ASSESS & MGT SRV PROV QUAL NONPHYS HLTH CARE PRO TO EST PAT,PARENT,GUARD NOT ORIG REL ASSESS & MGT SRV PROV W/IN PREV 7 DAYS NOR LEAD ASSESS & MGT SRV/PX W/IN NXT 24 HR/SOON APT;5-10 MIN MED DIS 05/02 DoD PSYCHOTHERAPY, 60 MINUTES WITH PATIENT 06/04 DoD COORDINATED CARE FEE, MAINTENANCE RATE 05/21 DoD HEALTH AND BEHAVIOR INTERVENTION, EACH 15 MINUTES, [id number]; GROUP (2 OR MORE PATIENTS) 04/28 [facility] MEDICAL NUTRITION THERAPY; GROUP (2 OR MORE INDIVIDUAL(S)), EACH 30 MINUTES 04/28 DoD COORDINATED CARE FEE, RISK ADJUSTED MAINTENANCE 04/28 DoD INJECTION(S), ANESTHETIC AGENT(S) AND/OR STEROID; GREATER OCCIPITAL NERVE 04/24 DoD PSYCHOTHERAPY, 60 MINUTES WITH PATIENT 04/23 DoD PHYS/OTH QUALIFIED HEALTH PLAN MANAGER QUALIFIED,EDUCATIO N,TRAIN,LICENSURE/ REGULATION (WHEN APPLICABLE) EDUC SER RENDERED TO PATS IN A GRP SETTING (EG,,OBESI TY,OR DIABETIC INSTRUCT) 04/23 DoD BRIEF EMOTIONAL/BEHAVIOR AL ASSESSMENT (EG, DEPRESSION INVENTORY, ATTENTION-DEFICIT/ HYPERACTIVITY DISORDER [ADHD] SCALE), WITH SCORING AND DOCUMENTATION, PER STANDARDIZED INSTRUMENT 04/21 DoD CASE MANAGEMENT, EACH 15 MINUTES 04/21 DoD PSYCHOTHERAPY, 60 MINUTES WITH PATIENT 04/16 DoD PSYCHOTHERAPY, 60 MINUTES WITH PATIENT 04/02 DoD HEPATITIS A AND HEPATITIS B VACCINE (HEPA-HEPB), ADULT DOSAGE, FOR INTRAMUSCULAR USE 03/27 DoD PSYCHOTHERAPY, 60 MINUTES WITH PATIENT 03/24 DoD BRIEF EMOTIONAL/BEHAVIOR AL ASSESSMENT (EG, DEPRESSION INVENTORY, ATTENTION-DEFICIT/ HYPERACTIVITY DISORDER [ADHD] SCALE), WITH SCORING AND DOCUMENTATION, PER STANDARDIZED INSTRUMENT 03/20 DoD CASE MANAGEMENT, EACH 15 MINUTES 03/17 [facility] DETERMINATION OF REFRACTIVE STATE 02/13 DoD BRIEF EMOTIONAL/BEHAVIOR AL ASSESSMENT (EG, DEPRESSION INVENTORY, ATTENTION-DEFICIT/ HYPERACTIVITY DISORDER [ADHD] SCALE), WITH SCORING AND DOCUMENTATION, PER STANDARDIZED INSTRUMENT 01/30 DoD COORDINATED CARE FEE, RISK ADJUSTED MAINTENANCE 01/26 DoD CASE MANAGEMENT, EACH 15 MINUTES 12/30 DoD PSYCHOTHERAPY, 60 MINUTES WITH PATIENT 12/24 DoD BRIEF EMOTIONAL/BEHAVIOR AL ASSESSMENT (EG, DEPRESSION INVENTORY, ATTENTION-DEFICIT/ HYPERACTIVITY DISORDER [ADHD] SCALE), WITH SCORING AND DOCUMENTATION, PER STANDARDIZED INSTRUMENT 12/19 DoD PSYCHOTHERAPY, 60 MINUTES WITH PATIENT 11/26 DoD PSYCHOTHERAPY, 60 MINUTES WITH PATIENT 11/13 DoD INJECTION(S), ANESTHETIC AGENT(S) AND/OR STEROID; GREATER OCCIPITAL NERVE 10/29 DoD CASE MANAGEMENT, EACH 15 MINUTES 10/20 DoD PSYCHOTHERAPY, 60 MINUTES WITH PATIENT 10/09 DoD PSYCHOTHERAPY, 60 MINUTES WITH PATIENT 10/01 DoD PSYCHOTHERAPY, 60 MINUTES WITH PATIENT 09/24 DoD CASE MANAGEMENT, EACH 15 MINUTES 09/23 DoD URINALYSIS, BY DIP STICK OR TABLET REAGENT FOR BILIRUBIN, GLUCOSE, HEMOGLOBIN, KETONES, LEUKOCYTES, NITRITE, PH, PROTEIN, SPEC GRAVITY, UROBILINOGEN, ANY NUMBER OF CONSTITUENTS; W/O MICRO, NON-AUTO 09/23 [facility] MEDICATION THERAPY MGT SERVICE(S) PROVIDED,A PHARMACISTWOOD F YAHAIRA-TO-FACE W PATIENT,WITH ASSESS & INTERVENE IF PROVIDED;EA ADDITION 15 MINUTES (LIST SEPARATELY IN ADDITION TO CODE FOR PRIM SERVICE) 09/19 [facility] COORDINATED CARE FEE, RISK ADJUSTED MAINTENANCE, LEVEL 3 09/16 [facility] INSPECTION OF LUMBOSACRAL JOINT, OPEN APPROACH 09/11 [facility] EXCISION OF LUMBOSACRAL DISC, OPEN APPROACH 09/11 [facility] POSTOPERATIVE FOLLOW-UP VISIT, NORMALLY INCLUDED IN THE SURGICAL PACKAGE, INDICATE THAT EVALUATION & MANAGEMENT SERVICE WAS PERFORMED DURING A POSTOPERATIVE PERIOD REASON RELATED ORIGINAL PROCEDURE 09/11 DoD POSTOPERATIVE FOLLOW-UP VISIT, NORMALLY INCLUDED IN THE SURGICAL PACKAGE, INDICATE THAT EVALUATION & MANAGEMENT SERVICE WAS PERFORMED DURING A POSTOPERATIVE PERIOD REASON RELATED ORIGINAL PROCEDURE 09/10 [facility] POSTOPERATIVE FOLLOW-UP VISIT, NORMALLY INCLUDED IN THE SURGICAL PACKAGE, INDICATE THAT EVALUATION & MANAGEMENT SERVICE WAS PERFORMED DURING A POSTOPERATIVE PERIOD REASON RELATED ORIGINAL PROCEDURE 09/09 [facility] LAMINOTOMY (HEMILAMINECTOMY), WITH DECOMPRESSION OF NERVE ROOT(S), INCLUDING PARTIAL FACETECTOMY, FORAMINOTOMY &/ EXCISION OF HERNIATED INTERVERTEBRAL DISC, REEXPLORATION, SINGLE INTERSPACE; LUMBAR 09/08 [facility] INJECTION, ONDANSETRON HCL, PER 1 MG 09/08 [facility] CASE MANAGEMENT, EACH 15 MINUTES 09/04 DoD RELEASE LUMBAR NERVE, OPEN APPROACH 09/02 DoD EXCISION OF LUMBOSACRAL DISC, OPEN APPROACH 09/02 DoD CASE MANAGEMENT, EACH 15 MINUTES 09/02 DoD LAMINECTOMY,FACETE CTOMY & FORAMINOTOMY (UNILATERAL OR BILATERAL W DECOMPRESSION OF SPINAL CORD,CAUDA EQUINA &/ NERVE ROOT[S],[EG,SPINAL OR LATERAL RECESS STENOSIS]),SINGLE VERTEBRAL SEGMENT;LUMBAR 09/02 DoD INJECTION, ONDANSETRON HCL, PER 1 MG 09/01 DoD PSYCHOTHERAPY, 60 MINUTES WITH PATIENT 08/26 DoD PHYS/OTH QUALIFIED HEALTH PLAN MANAGER QUALIFIED,EDUCATIO N,TRAIN,LICENSURE/ REGULATION (WHEN APPLICABLE) EDUC SER RENDERED TO PATS IN A GRP SETTING (EG,,OBESI TY,OR DIABETIC INSTRUCT) 08/21 DoD CASE MANAGEMENT, EACH 15 MINUTES 08/20 DoD PSYCHIATRIC DIAGNOSTIC EVALUATION WITH MEDICAL SERVICES 08/07 DoD CASE MANAGEMENT, EACH 15 MINUTES 08/05 DoD BRIEF EMOTIONAL/BEHAVIOR AL ASSESSMENT (EG, DEPRESSION INVENTORY, ATTENTION-DEFICIT/ HYPERACTIVITY DISORDER [ADHD] SCALE), WITH SCORING AND DOCUMENTATION, PER STANDARDIZED INSTRUMENT 08/04 DoD PSYCHIATRIC DIAGNOSTIC EVALUATION 07/31 DoD CASE MANAGEMENT, EACH 15 MINUTES 07/29 DoD INJECTION(S), ANESTHETIC AGENT(S) AND/OR STEROID; GREATER OCCIPITAL NERVE 07/16 DoD CASE MANAGEMENT, EACH 15 MINUTES 07/15 [facility] PNEUMOCOCCAL POLYSACCHARIDE VACCINE, 23-VALENT (PPSV23), ADULT OR IMMUNOSUPPRESSED PATIENT DOSAGE, WHEN ADMINISTERED TO INDIVIDUALS 2 YEARS OR OLDER, FOR SUBCUTANEOUS OR INTRAMUSCULAR USE 07/09 DoD PSYCHOTHERAPY, 45 MINUTES WITH PATIENT 07/09 DoD CASE MANAGEMENT, EACH 15 MINUTES 07/09 DoD CASE MANAGEMENT, EACH 15 MINUTES 07/02 DoD PSYCHOTHERAPY, 45 MINUTES WITH PATIENT 06/17 DoD INTRAVENOUS INFUSION, HYDRATION; EACH ADDITIONAL HOUR (LIST SEPARATELY IN ADDITION TO CODE FOR PRIMARY PROCEDURE) 06/14 [facility] COORDINATED CARE FEE, RISK ADJUSTED MAINTENANCE 05/20 DoD CASE MANAGEMENT, EACH 15 MINUTES 05/14 DoD TELE ASSESS & MGT SRV PROV QUAL NONPHYS HLTH CARE PRO TO EST PAT,PARENT,GUARD NOT ORIG REL ASSESS & MGT SRV PROV W/IN PREV 7 DAYS NOR LEAD ASSESS & MGT SRV/PX W/IN NXT 24 HR/SOON APT;5-10 MIN MED DIS 04/11 DoD TELE ASSESS & MGT SRV PROV QUAL NONPHYS HLTH CARE PRO TO EST PAT,PARENT,GUARD NOT ORIG REL ASSESS & MGT SRV PROV W/IN PREV 7 DAYS NOR LEAD ASSESS & MGT SRV/PX W/IN NXT 24 HR/SOON APT;5-10 MIN MED DIS 03/21 DoD BIOPSY,BREAST,W PLACEMENT OF BREAST LOCALIZATION DEVICE(S) (EG,CLIP,METALLIC PELLET),WHEN PERFORMED,AND IMAGING OF THE BIOPSY SPECIMEN,WHEN PERFORMED,PERCUT;F IRST LESION,INCLUDING ULTRASOUND GUIDANCE 03/18 [facility] PHYS/OTH QUALIFIED HEALTH PLAN MANAGER QUALIFIED,EDUCATIO N,TRAIN,LICENSURE/ REGULATION (WHEN APPLICABLE) EDUC SER RENDERED TO PATS IN A GRP SETTING (EG,,OBESI TY,OR DIABETIC INSTRUCT) 03/13 DoD CASE MANAGEMENT, EACH 15 MINUTES 02/27 [facility] EDUCATION &TRAINING, PATIENT SELF-MGT QUALIFIED, NONPHYSICIAN HEALTH PLAN MANAGER USING STDIZED CURRICULUM, [id number] W THE PATIENT (COULD INCL CAREGIVER/FAMILY) EA 30 MIN; INDIVIDUAL PATIENT 02/20 DoD CASE MANAGEMENT, EACH 15 MINUTES 02/19 DoD INTRODUCTION OF OTHER THERAPEUTIC SUBSTANCE INTO SUBCUTANEOUS TISSUE, PERCUTANEOUS APPROACH 02/14 DoD INJECTION, ENOXAPARIN SODIUM, 10 MG 02/13 DoD CASE MANAGEMENT, EACH 15 MINUTES 02/12 DoD TRANSFUSION OF NONAUTOLOGOUS RED BLOOD CELLS INTO PERIPHERAL VEIN, PERCUTANEOUS APPROACH 01/27 DoD HEALTH AND BEHAVIOR INTERVENTION, EACH 15 MINUTES, [id number]; FAMILY (WITH THE PATIENT PRESENT) 01/23 DoD HEALTH&BEHAV ASSESSMENT (EG, HEALTH-FOC CLINICAL INTERVIEW, BEHAVIORAL OBSERVATIONS, PSYCHOPHYSICOLOGIC AL MONITOR, HEALTH-ORIENT QUESTIONNAIRES), EA 15 MIN [id number] W THE PATIENT; INIT ASSESSMENT 01/22 DoD INJECTION, NALOXONE HCL, PER 1 MG 01/22 DoD HOME MANAGEMENT TREATMENT USING ASSISTIVE, ADAPTIVE, SUPPORTIVE OR PROTECTIVE EQUIPMENT 01/20 DoD FEEDING/EATING ASSESSMENT 01/20 DoD DRESSING ASSESSMENT USING ASSISTIVE, ADAPTIVE, SUPPORTIVE OR PROTECTIVE EQUIPMENT 01/20 DoD GAIT AND/OR BALANCE ASSESSMENT USING ASSISTIVE, ADAPTIVE, SUPPORTIVE OR PROTECTIVE EQUIPMENT 01/20 DoD TRANSFER ASSESSMENT USING ASSISTIVE, ADAPTIVE, SUPPORTIVE OR PROTECTIVE EQUIPMENT 01/20 DoD BED MOBILITY ASSESSMENT USING ASSISTIVE, ADAPTIVE, SUPPORTIVE OR PROTECTIVE EQUIPMENT 01/20 DoD RANGE OF MOTION AND JOINT INTEGRITY ASSESSMENT OF MUSCULOSKELETAL SYSTEM - LOWER BACK / LOWER EXTREMITY 01/20 [facility] MUSCLE PERFORMANCE ASSESSMENT OF MUSCULOSKELETAL SYSTEM - LOWER BACK / LOWER EXTREMITY USING ASSISTIVE, ADAPTIVE, SUPPORTIVE OR PROTECTIVE EQUIPMENT 01/20 [facility] RANGE OF MOTION AND JOINT INTEGRITY ASSESSMENT OF MUSCULOSKELETAL SYSTEM - UPPER BACK / UPPER EXTREMITY 01/20 [facility] MUSCLE PERFORMANCE ASSESSMENT OF MUSCULOSKELETAL SYSTEM - UPPER BACK / UPPER EXTREMITY USING ASSISTIVE, ADAPTIVE, SUPPORTIVE OR PROTECTIVE EQUIPMENT 01/20 [facility] TRANSFER TRAINING TREATMENT USING ASSISTIVE, ADAPTIVE, SUPPORTIVE OR PROTECTIVE EQUIPMENT 01/20 [facility] GROOMING/PERSONAL HYGIENE ASSESSMENT USING ASSISTIVE, ADAPTIVE, SUPPORTIVE OR PROTECTIVE EQUIPMENT 01/20 [facility] ERGONOMICS AND BODY MECHANICS ASSESSMENT USING ASSISTIVE, ADAPTIVE, SUPPORTIVE OR PROTECTIVE EQUIPMENT 01/20 [facility] BED MOBILITY TREATMENT USING ASSISTIVE, ADAPTIVE, SUPPORTIVE OR PROTECTIVE EQUIPMENT 01/20 [facility] INTRODUCTION OF OTHER THERAPEUTIC SUBSTANCE INTO SUBCUTANEOUS TISSUE, PERCUTANEOUS APPROACH 01/20 [facility] MOTOR FUNCTION ASSESSMENT OF NEUROLOGICAL SYSTEM - LOWER BACK / LOWER EXTREMITY 01/20 [facility] INTRODUCTION OF ANALGESICS, HYPNOTICS, SEDATIVES INTO PERIPHERAL VEIN, PERCUTANEOUS APPROACH 01/20 DoD HEALTH&BEHAV ASSESSMENT (EG, HEALTH-FOC CLINICAL INTERVIEW, BEHAVIORAL OBSERVATIONS, PSYCHOPHYSICOLOGIC AL MONITOR, HEALTH-ORIENT QUESTIONNAIRES), EA 15 MIN [id number] W THE PATIENT; INIT ASSESSMENT 01/17 [facility] INJECTION, MORPHINE SULFATE, UP TO 10 MG 01/13 [facility] Coordinated care fee, risk adjusted maintenance 02/18 SOHAM FAM [facility] Non-Physician Phone Call To Patient/Provider Brief (5-10min) Non-Physician Phone Call To Patient/Provider Brief (5-10min) [id number] 11/27 GLENDY SILVA [facility] Medical Nutrition Therapy Group (2 or More Individual(s)) Medical Nutrition Therapy Group (2 or More Individual(s)) [id number] 11/22 MANUEL MOSS [facility] Non-Physician Phone Call To Patient/Provider Brief (5-10min) Non-Physician Phone Call To Patient/Provider Brief (5-10min) [id number] GLENDY SILVA [facility] Non-Physician Phone Call To Patient/Provider Brief (5-10min) Non-Physician Phone Call To Patient/Provider Brief (5-10min) [id number] 09/13 AISHWARYA KLEIN [facility] Non-Physician Phone Call To Patient/Provider Brief (5-10min) Non-Physician Phone Call To Patient/Provider Brief (5-10min) [id number] 08/20 GLENDY SILVA [facility] Case Management, each 15 minutes 08/01 JOSR HAYES DoD Case Management, each 15 minutes 07/31 JOSR HAYES 45 minutes - review of records, completion and fax of UHCM&V CM referral, and documentation [facility] Determination Of Refractive State Determination Of Refractive State [id number] 07/04 TERRELL WILLAMS [facility] Ophthalmological New Patient Start Comprehensive Care Ophthalmological New Patient Start Comprehensive Care [id number] 07/04 TERRELL WILLAMS [facility] Non-Physician Phone Call To Patient/Provider Brief (5-10min) Non-Physician Phone Call To Patient/Provider Brief (5-10min) [phone] 06/26 GLENDY SILVA [facility] Screening papanicolaou smear; obtaining, preparing and conveyance of cervical or vaginal smear to laboratory 06/25 ALL BERNAL [facility] Non-Physician Phone Call To Patient/Provider Brief (5-10min) Non-Physician Phone Call To Patient/Provider Brief (5-10min) [id number] 06/11 AISHWARYA KLEIN [facility] Non-Physician Phone Call To Patient/Provider Brief (5-10min) Non-Physician Phone Call To Patient/Provider Brief (5-10min) [id number] 05/03 ANGUS PEREZ [facility] Case Management, each 15 minutes 05/21 DEVORAH ALCARAZ Chart review, relay health, and documentation [facility] Coordinated care fee, maintenance rate 05/21 DEVORAH ALCARAZ [facility] Health And Behav Intervention, Each 15 Min Grp (2 Or More) Health And Behav Intervention, Each 15 Min Grp (2 Or More) [id number] 04/29 FRANSICO VEGA [facility] Medical Nutrition Therapy Group (2 or More Individual(s)) Medical Nutrition Therapy Group (2 or More Individual(s)) [id number] 04/28 PATEL JARA [facility] Coordinated care fee, risk adjusted maintenance 04/28 JOSE E CANALES [facility] Case Management, each 15 minutes 04/28 JOSE E CANALES AG#1,5,1,17 [facility] Injection, onabotulinumtoxina , 1 unit 04/26 ADRIAN TAPIA Nerve Block Greater Occipital 04/[address]Supervised Group Educational Services -Supervised Group Educational Services [id number] 04/[address]Supervised Services Provision Of Educational Supplies -Supervised Services Provision Of Educational Supplies [id number] 04/24 IAN LOPEZ Case Management, each 15 minutes 04/23 SOHAM FAM 2.5 hours for targeted assessment and coordination of services. [facility] Coordinated care fee, maintenance rate 04/23 SOHAM FAM Immunization Administration One Vaccine Immunization Administration One Vaccine 74009 03/27 [place] Hepatitis A And Hepatitis B (Intramuscular Use) Adult Dosage Hepatitis A And Hepatitis B (Intramuscular Use) Adult Dosage 43952 03/27 [place] Hep A-Hep B; Series #: 1; 1.0 mL; IM; Left Arm; Mfg: Prescient; Lot: [id number]; VIS given (Michael: 03/05/16; 03/05/16). [facility] Case Management, each 15 minutes 03/19 3 hours for targeted assessmetn and complex coordination of services. [facility] Coordinated care fee, risk adjusted maintenance 03/19 [facility] Determination Of Refractive State Determination Of Refractive State [id number] 02/13 CHAO KOEHLER [facility] Ophthalmological New Patient Start Comprehensive Care Ophthalmological New Patient Start Comprehensive Care [id number] 02/13 CHAO KOEHLER Coordinated care fee, risk adjusted maintenance 01/30 SOHAM FAM 3.5 hrs spent on coordination of care, targeted assessment, and emotional support. Hanane Case Management, each 15 minutes 01/30 SOHAM FAM Case Management, each 15 minutes 01/06 SOHAM FAM 4 hrs for targeted assessment, coordination of services, and careplan. [facility] Coordinated care fee, risk adjusted maintenance 01/06 SOHAM FAM Nerve Block Greater Occipital 10/30 ADRIAN TAPIA Injection, onabotulinumtoxina , 1 unit 10/30 REGINA, YINCE DoD Case Management, each 15 minutes 10/22 SOHAM FAM 3 hours for targeted assessment, coordination of care, and followup phone calls. [facility] Coordinated care fee, risk adjusted maintenance 10/22 SOHAM FAM [facility] Coordinated care fee, risk adjusted maintenance 09/26 SOHAM FAM Case Management, each 15 minutes 09/26 SOHAM FAM 4 hrs for targeted assessment, 3 phone followups, complex coordination of services, and patient activation simple for education. [facility] Routine UA Without Microscopic Examination Routine UA Without Microscopic Examination 60571 09/23 DOUGIE DIAZ Cystoscopy (Diagnostic) Cystoscopy (Diagnostic) 80200 09/23 DOUGIE DIAZ Medication Management By Pharmacist Each Additional 15 Min Medication Management By Pharmacist Each Additional 15 Min [id number] 09/19 BRADY SAUCEDO Med Management By Pharmacist Initial 15 Min New Patient Med Management By Pharmacist Initial 15 Min New Patient [id number] 09/19 BRADY SAUCEDO Intervention And Counseling On Ce ation Of Tobacco Use Intervention And Counseling On Cessation Of Tobacco Use 4000F 09/19 BRADY SAUCEDO Case Management, each 15 minutes 09/17 SOHAM FAM 2 hrs spent doing inpatient hospital followup and coordination of services. [facility] Coordinated care fee, risk adjusted maintenance, Level 3 09/17 SOHAM FAM [facility] Case Management, each 15 minutes 09/05 SOHAM FAM 4 hours for inpatient hospital followup, complex coordination of services, Multi D meeting for pain mgmt, and 2 followup phone calls. [facility] Coordinated care fee, risk adjusted maintenance 09/05 SOHAM FAM [facility] Coordinated care fee, maintenance rate 09/04 JOSE E CANALES DoD Case Management, each 15 minutes 09/04 JOSE E CANALES AG#2 DoD Case Management, each 15 minutes 08/26 SOHAM FAM 3 hours for targeted assessment, coordination of services with , emotional support. [facility] Coordinated care fee, risk adjusted maintenance 08/26 SOHAM FAM [facility] Psychiatric Evaluation Review of Records and Reports Psychiatric Evaluation Review of Records and Reports [id number] 08/21 IESHA LUONG The patient's available records (medication/pres criptions, relevant progress notes, and relevant labs) were reviewed outside of a face to face appointment for the purpose of aiding in treatment planning and/or development of diagnoses. [facility] Case Management, each 15 minutes 08/07 SOHAM FAM 3 hrs spent with patient for targeted assessments, followup phone calls X 3, complex coordination of services. [facility] Coordinated care fee, risk adjusted maintenance 08/07 SOHAM FAM Psychiatric Evaluation Comprehensive Examination Psychiatric Evaluation Comprehensive Examination 26260 07/31 YURIY LOPEZ Case Management, each 15 minutes 07/31 SOHAM FAM 3 hours for targeted assessment, complex coordination of care. [facility] Coordinated care fee, risk adjusted maintenance 07/31 SOHAM FAM Case Management, each 15 minutes 07/18 SOHAM FAM 4 hrs this week working on targeted assessment, complex coordination of services with multiple providers of care, multiple followup phone calls to patient, [facility] Coordinated care fee, risk adjusted maintenance, Level 3 07/18 SOHAM FAM Nerve Block Greater Occipital 07/16 ADRIAN TAPIA Injection, onabotulinumtoxina , 1 unit 07/16 ADRIAN TAPIA [facility] Psychiat Ther Indiv Interactive Approximately 45-50 Minutes 07/16 VÍCTOR CRUZ [facility] Case Management, each 15 minutes 07/16 SOHAM FAM 3 hours for targeted assessment, coordination of referrals, and emotional support for pain management and lack of function. [facility] Coordinated care fee, risk adjusted maintenance 07/16 SOHAM FAM [facility] Immunization Administration One Vaccine Immunization Administration One Vaccine 14305 07/09 VÍCTOR RODRIGUEZ [facility] Immunization Administration Each Additional Vaccine Immunization Administration Each Additional Vaccine 36946 07/09 VÍCTOR RODRIGUEZ 1. Patient denies feeling sick with fever 2. Patient denies having a serious reaction to a flu vaccine 3. Patient denies having Gu[place] syndrom (GBS) 4. Patient denies having a allergy to components of vaccine 5. Patient denies being Patient is reporting for flu immunization administration. Pt identity verified with full name and . Order and patient's five rights verified. Patient's health history reviewed and Seasonal Influenza Vaccination Program Adult Screening and Immunization worksheet was completed by patient, per protocol. No allergies to medication or contraindication s noted. Patient has read and has been explained the information in the current influenza vaccine information statement (VIS). The patient had a chance to ask questions and they were answered to their satisfaction. The patient understands the benefits and risks of the influenza vaccine. [facility] Tdap Vaccine Tdap Vaccine 36004 07/09 VÍCTOR RODRIGUEZ Tdap; Series #: 1; .5 mL; IM; Right Arm; Mfg: Prescient; Lot: [id number]; VIS given (Michael: 10/10/14). [facility] Pneumococcal Polysaccharide Vaccine (Age 2Y+) Pneumococcal Polysaccharide Vaccine (Age 2Y+) 33362 07/09 VÍCTOR RODRIGUEZ Pneumococcal polysaccharide PPV23; Series #: 1; .5 mL; IM; Left Arm; Mfg: [id number]; Lot: [id number]; VIS given (Michael: 12/08/14). [facility] Case Management, each 15 minutes 07/03 SOHAM FAM Targeted assessment, coordination of care, Multi D discussions. [facility] Coordinated care fee, risk adjusted maintenance 07/03 SOHAM FAM Psychiat Ther Indiv Interactive Approximately 45-50 Minutes 06/24 VÍCTOR CRUZ Case Management, each 15 minutes 05/22 SOHAM FAM 3 hours for targeted assessment and complex coordination of care, [facility] Coordinated care fee, risk adjusted maintenance 05/22 SOHAM FAM Case Management, each 15 minutes 05/15 SOHAM FAM 5 hours for comprehensive care to targeted/modifie d followup for pain, updated careplan, complex coordination of services for multiple referrals, individual emotional support to include LUKSA and Depression scoring. [facility] Coordinated care fee, risk adjusted maintenance 05/15 SOHAM FAM Non-Physician Phone Call To Patient/Provider Brief (5-10min) Non-Physician Phone Call To Patient/Provider Brief (5-10min) [id number] 04/14 KATHY GROVES Non-Physician Phone Call To Patient/Provider Brief (5-10min) Non-Physician Phone Call To Patient/Provider Brief (5-10min) [phone] 03/[address].-Supervised Services Provision Of Educational Supplies -Supervised Services Provision Of Educational Supplies [id number] 03/13 GABY MORE [facility] -Supervised Group Educational Services -Supervised Group Educational Services [id number] 03/13 GABY MORE [facility] Case Management, each 15 minutes 03/04 SOHAM FAM 3 hours with multiple f/u calls to patient, complex coordinaton of services with multiple specialties and appts needed, Mult D meeting with two providers of care. [facility] Coordinated care fee, risk adjusted maintenance 03/04 SOHAM FAM Medication Management By Pharmacist Each Additional 15 Min Medication Management By Pharmacist Each Additional 15 Min [id number] 02/25 STEVEN BAXTER Med Management By Pharmacist Initial 15 Min New Patient Med Management By Pharmacist Initial 15 Min New Patient [id number] 02/25 STEVEN BAXTER Preventive Medicine Anticoagulant Therapy Warfarin Preventive Medicine Anticoagulant Therapy Warfarin 4012F 02/25 STEVEN BAXTER Patient Counseling Medical Management Individual Patient Patient Counseling Medical Management Individual Patient [id number] 02/25 STEVEN BAXTER Case Management, each 15 minutes 02/21 SOHAM FAM 3 hrs spent doing Transitional Care post discharge from hospital, multi D with several providers of care, patient teaching/activat ion regarding anticoagulation therapy to assess understanding, and coordination of service. [facility] Coordinated care fee, risk adjusted maintenance, Level 3 02/21 SOHAM FAM Case Management, each 15 minutes 02/18 SOHAM FAM 5 hrs spent on the following: Initial Assessment, Face To Face Health Care Goal Planning, Complex Coordination of a Service with multiple specialties, Risk Assessment, Hospital Discharge, [facility] Social History Combined list of available smoking, tobacco, and other social history from [facility] Defense and [facility] facilities. Social History Type Response Date Comment Sour e Smoking Status Former smoker, quit more than 30 days ago 02/25/2018 Unknown Organization Sex Representation Female (finding) 05/22/2017 Unknown Organization Sexual Orientation [facility] Gender identity [facility] This section is an empty social history section. [facility] Assessment and Plan Combined list of future care activities from Department of Defense and Veterans Affairs facilities (e.g., assessment and plan notes, appointments, orders, and referrals). Additional future care activities may be listed in the Plan of Care section. Result Assessment and Plan Date Source Assessment and Plan Extracted from:Title : Neurology Office Visit Note Author: ADRIAN TAPIA Date: 02/26/18 Cervico-occipital neuralgia ? 1.?Headaches. [...] spent 21 minutes of my 40 minutes [id number] with the patient discussing the examination, therapy, [...] ? MD NICCI Cox, Interventional Neuroradiology Staff [facility] ? Ordered: onabotulinumtoxinA, 200 units, IntraMuscular, Injection, Once, First Dose: 02/25/2018 16:00:00 PDT, Stop Date: 02/25/2018 16:00:00 PDT CHEMODEN,1 EXT;EA ADD,1-4 [facility]C 43760 N Block Inj, Occipital 90859 ? Common migraine without aura Ordered: onabotulinumtoxinA, 200 units, IntraMuscular, Injection, Once, First Dose: 02/25/2018 16:00:00 PDT, Stop Date: 02/25/2018 16:00:00 PDT Chemodenerv Musc Migraine 42087 ? Extracted from:Title: Office Clinic Note Author: JACOBY JONAS Date: 01/26/18 1.?Device status Ordered: Ankle foot orthosis, ankle gauntlet L1902 Foot, arch support, removable, premolded, longitudinal L3040 Orthotic Mgmt+Trainj Uxtr Lxtr+/Trnk Ea 15 Min 36163 ? 2.?Tibialis tendonitis Ordered: Ankle foot orthosis, ankle gauntlet L1902 Foot, arch support, removable, premolded, longitudinal L3040 Orthotic Mgmt+Trainj Uxtr Lxtr+/Trnk Ea 15 Min 65161 ? 3.?Tibialis tendonitis Ordered: Ankle foot orthosis, ankle gauntlet L1902 Foot, arch support, removable, premolded, longitudinal L3040 Orthotic Mgmt+Trainj Uxtr Lxtr+/Trnk Ea 15 Min 49172 ? Extracted from:Title: Neurology Office Visit Note Author: ADRIAN TAPIA Date: 01/22/18 Cervico-occipital neuralgia ? 1.?Headaches. [...] spent 21 minutes of my 40 minutes [id number] with the patient discussing the examination, therapy, [...] The patient tolerated the procedure well.? ? Adrian Tapia MD [facility], Interventional Neuroradiology ? Ordered: Bilateral N Block Inj, Occipital 02847 Office Visit Level 4 Est 46228 ? Extracted from:Title: General Surgery Clinic Note Author: SOO CERRATO Date: 12/15/17 32yoF with non-reducible LLQ mass. Potential hernia given previous surgery, but current mass is lateral to previous incision. Also potential for scar endometriosis, but acute onset would be atypical. No concern for strangulation/incarceration.?Will obtain CT abdomen/pelvis to better characterize mass. Extracted from:Title: Office Clinic Note Author: PABLO HILLS Date: 12/09/17 1.?Low back pain Chronic Will [...] ? Ordered: Office Visit Level 4 Est [address]34 ? 2.?Pendulous breast Bilateral. Will refer back to Plastics Clinic for further evaluation and treatment. Ordered: Office Visit Level 4 Est 76939 ? 3.?Bilateral foot pain Chronic. Will get bilateral foot xrays and will refer patient to Podiatry Clinic. patient is aware that her weight is a contributing factor. ? Pablo Hills, IT SYSTEMS ENGINEER, [employer] ? Ordered: Office Visit Level 4 Est 19696 XR Foot 2 Views Bilateral ? Orders: [...] no EMG guidance Muscle?Right ?Left Procerus?midline 5 Go Go Dancer?5 units?5 units Frontalis?5 units x 2?5 units [...] Date: 12/03/2017 15:00:00 PDT [place] [facility] Migraine 60976 Office Visit Level 2 Est 88192 ? Extracted from:Title: Clinical Pharmacy Note Bariatric [...] Ordered: Medication Therapy Each Additional 15 Min 25376 Medication Therapy Initial 15 Min New Patient [id number] ? Extracted from:Title: Neurology Office Visit Note Author: REGINANORBERTGOPAL Date: 07/24/17 Common migraine without aura ? [...] spent 21 minutes of my 40 minutes hjvi-[id number] with the patient discussing the examination, therapy, [...] The patient tolerated the procedure well. ??? Adrian Tapia MD Interventional Neuroradiology ? Extracted from:Title: Heel Pain, LEFT Author: BENITEZDAMIENBRYAN JESUS Date: 07/20/17 1.?Heel pain ?Tx acute pain w/ naprosyn (pt has used before and causes no issue despite h/o allergy to toredol.? X-ray today - R/O fx.? If neg will consider heel cups or podiatry referral. Ordered: naproxen, 1 tabs, Oral, BID, # 30 tabs, 0 total refill(s), 08/20/2017, [facility] pharmacy dispense (Rx) [Not filled] XR Calcaneous Left ? 12/08/[address] [place] [address] Assessment and Plan Extracted from:Title : Neurology Office Visit Note Author: ADRIAN TAPIA Date: 02/26/18 Cervico-occipital neuralgia ? 1.?Headaches. [...] spent 21 minutes of my 40 minutes [id number] with the patient discussing the examination, therapy, [...] The patient tolerated the procedure well.? ? Adrian Tapia MD [facility], Interventional Neuroradiology Staff [facility] ? Ordered: onabotulinumtoxinA, 200 units, IntraMuscular, Injection, Once, First Dose: 02/25/2018 16:00:00 PDT, Stop Date: 02/25/2018 16:00:00 PDT CHEMODEN,1 EXT;EA ADD,1-4 [facility] 40362 N Block Inj, Occipital 78261 ? Common migraine without aura Ordered: onabotulinumtoxinA, 200 units, IntraMuscular, Injection, Once, First Dose: 02/25/2018 16:00:00 PDT, Stop Date: 02/25/2018 16:00:00 PDT [place] [facility]c Migraine 30764 ? Extracted from:Title: Office Clinic Note Author: JACOBY JONAS Date: 01/26/18 1.?Device status Ordered: Ankle foot orthosis, ankle gauntlet L1902 Foot, arch support, removable, premolded, longitudinal L3040 Orthotic Mgmt+Trainj Uxtr Lxtr+/Trnk Ea 15 Min 52269 ? 2.?Tibialis tendonitis Ordered: Ankle foot orthosis, ankle gauntlet L1902 Foot, arch support, removable, premolded, longitudinal L3040 Orthotic Mgmt+Trainj Uxtr Lxtr+/Trnk Ea 15 Min 66732 ? 3.?Tibialis tendonitis Ordered: Ankle foot orthosis, ankle gauntlet L1902 Foot, arch support, removable, premolded, longitudinal L3040 Orthotic Mgmt+Trainj Uxtr Lxtr+/Trnk Ea 15 Min 79529 ? Extracted from:Title: Neurology Office Visit Note Author: ADRIAN TAPIA Date: 01/22/18 Cervico-occipital neuralgia ? 1.?Headaches. [...] spent 21 minutes of my 40 minutes [id number] with the patient discussing the examination, therapy, [...] The patient tolerated the procedure well.? ? Adrian Tapia MD [facility], Interventional Neuroradiology ? Ordered: Bilateral N Block Inj, Occipital 66642 Office Visit Level 4 Est 31324 ? Extracted from:Title: General Surgery Clinic Note Author: SOO CERRATO Date: 12/15/17 32yoF with non-reducible LLQ mass. Potential hernia given previous surgery, but current mass is lateral to previous incision. Also potential for scar endometriosis, but acute onset would be atypical. No concern for strangulation/incarceration.?Will obtain CT abdomen/pelvis to better characterize mass. Extracted from:Title: Office Clinic Note Author: PABLO HILLS Date: 12/09/17 1.?Low back pain Chronic Will [...] ? Ordered: Office Visit Level 4 Est 14287 ? 2.?Pendulous breast Bilateral. Will refer back to Plastics Clinic for further evaluation and treatment. Ordered: Office Visit Level 4 Est 37871 ? 3.?Bilateral foot pain Chronic. Will get bilateral foot xrays and will refer patient to Podiatry Clinic. patient is aware that her weight is a contributing factor. ? Pablo Hills, GINA, [employer] ? Ordered: Office Visit Level 4 Est 35021 XR Foot 2 Views Bilateral ? Orders: lidocaine topical, 1 patches, Topical, Daily, Leave on for up to 12 hours within a 24 hour period (12 hours on, 12 hours off), # 30 patches, 5 total refill(s), [facility] pharmacy dispense (Rx) [Not filled] Medical Referral Request Medical Referral Request Medical Referral Request Extracted from:Title: Botox injections for migraine Author: NICHOLE AU Date: 12/03/17 1.?Common migraine without aura OnabotulinumtoxinA(Botox) injections Lot #: [id number]?Expiration Date: MAR 2020 Concentration: 0.1ml = 5 units, no EMG guidance Muscle?Right ?Left Procerus?midline 5 Go Go Dancer?5 units?5 units Frontalis?5 units x 2?5 units [...] Date: 12/03/2017 15:00:00 PDT [place] [facility] Migraine 39810 Office Visit Level 2 Est 31313 ? Extracted from:Title: Clinical Pharmacy Note Bariatric [...] Ordered: Medication Therapy Each Additional 15 Min 00657 Medication Therapy Initial 15 Min New Patient 43048 ? Extracted from:Title: Neurology Office Visit Note Author: ADRIAN TAPIA Date: 07/24/17 Common migraine without aura [...] spent 21 minutes of my 40 minutes [id number] with the patient discussing the examination, therapy, [...] The patient tolerated the procedure well. ??? Adrian Tapia MD Interventional Neuroradiology ? Extracted from:Title: Heel Pain, LEFT Author: JESUS ROBLES Date: 07/20/17 1.?Heel pain ?Tx acute pain w/ naprosyn (pt has used before and causes no issue despite h/o allergy to toredol.? X-ray today - R/O fx.? If neg will consider heel cups or podiatry referral. Ordered: naproxen, 1 tabs, Oral, BID, # 30 tabs, 0 total refill(s), 08/20/2017, [facility] pharmacy dispense (Rx) [Not filled] XR Calcaneous Left ? 12/08/2024 [id number] [place] Functional Status Combined list of recent functional and cognitive assessments recorded at [facility] [employer] [facility] [employer] [facility] Functional [place] Measurement (FIM) Scale: 1 = Total Assistance (Subject = 0% +), 2 = Maximal Assistance (Subject = 25% +), 3 = Moderate Assistance (Subject = 50% +), 4 = Minimal Assistance (Subject = 75% +), 5 = Supervision, 6 = Modified [place] (Device), 7 = Complete [place] (Timely, Safely). Assessment Date/Time Source Assessment Type Assessment Skill Assessment Score Assessment Details FUNCTIONAL 12/16/17 Home Dietary Supplements Captured Yes
[2024-12-08] MEDS: diphenhydrAMINE 25MG CAPSULE 25 MG PO (14:24)
[2024-12-08] MEDS: ACETAMINOPHEN 325MG TAB 650 MG PO (14:24)
[2024-12-08] MEDS: SODIUM CHLORIDE 0.9% 10ML FLUSH SYRINGE 10 ML IV (14:32)
[2024-12-08] MEDS: SODIUM CHLORIDE 0.9% 50ML BAG 50 ML IV (14:34)
[2024-12-08 14:50] VITALS: BP 107/75; PULSE 75; RESP 16; TEMP 36.8; O2SAT 97
[2024-12-08] MEDS: FERRIC CARBOXYMALTOSE 750 MG in 0.9 % SODIUM CHLORIDE 250 ML 530 MG IV (14:50)
== END 2024-12-08 23:59 | disposition home or self-care (01) ==
LOC: INF 14:02
PROVIDERS: PCP Nurse Practitioner Family; Visit Provider Nurse Practitioner Family
DX: D50.9 Iron deficiency anemia, unspecified (principal)
CPT/HCPCS: 96365; J1439

== ENCOUNTER 2025-01-13 16:25 | Outpatient (CLI) | payer OTHER, SELFPAY ==
--- OUTSIDE RECORDS SUMMARY | 2025-01-13 16:27 | XMS_ITS | Continuity of Care Document ---
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 DoD [...] ion Darvocet A500 Drug allergy [id number] DARVOCET A500 (PROPOXYPHENE NAP/ACETAMINO PHEN) Drug allergy (disorder) Rash active 6 [facility] Dilaudid Drug allergy Rash Active [address] [place] [address] DILAUDID (HYDROMORPHON E HCL) Drug allergy (disorder) Rash active 6 [facility] HYDROmorphone Propensity to adverse reactions to substance Rash Active 6 Unknown Organizat ion ketorolac Propensity to adverse reactions to substance Rash Active 6 Unknown Organizat ion Toradol Drug allergy Rash [id number] McCho TORADOL (KETOROLAC TROMETHAMINE) Drug allergy (disorder) Rash active 6 [facility] Immunizations Combined list of available immunizations from the Department of Defense and Veterans Affairs facilities. Immunization Series Date Given Administered By Site Reaction Lot Number CVX Code Drug [place] Worker Status Comments Source Tdap 2020 RADHA, () Not Given Tdap DoD Influenza, injectable, MDCK, preservative free, quadrivalent 2020 RADHA, () Not Given Influenza , injectabl e, MDCK, preservat elizabeth free, quadrival ent DoD pneumococcal polysaccharid e PPV23 2020 RADHA, () Not Given pneumococ omar polysacch aride PPV23 DoD COVID-19, mRNA, LNP-S, PF, 30 mcg/0.3 mL dose 2020 JENNIFER KIM, [employer] [place] (PFR) Not Given COVID-19, mRNA, LNP-S, PF, 30 mcg/0.3 mL dose DoD COVID-19, mRNA, LNP-S, PF, 30 mcg/0.3 mL dose 2020 ABHISHEK [employer] [place] (PFR) Not Given COVID-19, mRNA, LNP-S, PF, 30 mcg/0.3 mL dose DoD HPV9 2020 TIAAN, () Not Given HPV9 DoD HPV9 2020 [...] trivlanent, adjuvanted, pf 2015 zzLef t Arm [id number] Seqirus complet ed Influenza , trivlanen t, adjuvante d, pf 07/09/16 Given Ambulat ory Pharmac y tetanus, diphtheria, acellular pertu is 2015 zzChandra Arm [id number] 115 Gl[employer]Smith[employer] ne complet ed tetanus, diphtheri a, acellular pertussis 07/09/16 Given Ambulat ory Pharmac y pneumococcal polysaccharid e, 23 valent 2015 zzLef t Arm [id number] [employer] Inc complet ed pneumococ omar polysacch aride, 23 valent 07/09/16 Given Ambulat ory Pharmac y pneumococcal polysaccharid e vaccine, 23 valent 1 2015 FILIPE TRAMMELL [id number] Merck (MSD) compl et ed pneumococ omar polysacch aride vaccine, 23 valent DoD tetanus toxoid, reduced diphtheria toxoid, and acellular pertu is vaccine, adsorbed 1 2015 FILIPE TRAMMELL [id number] 115 Smithine (SKB) complet ed tetanus toxoid, reduced diphtheri a toxoid, and acellular pertussis vaccine, adsorbed DoD Influenza, seasonal, injectable, preservative free 1 2015 Unknown, Provider [id number] Seqirus (SEQ) complet ed Influenza , seasonal, injectabl e, preservat elizabeth free DoD Seasonal trivalent influenza vaccine, adjuvanted, preservative free 1 2015 FILIPE TRAMMELL [id number] Seqirus (SEQ) com plet ed Seasonal [...] Rate Monitored 74 bpm 08/12/2017 07:34:[address] [place] [address] Heart Rate Monitored 96 bpm 08/12/2017 07:31:[address] [place] [address] Heart Rate Monitored 75 bpm 08/12/2017 05:58:[address] [place] [address] Respiratory Rate 16 br/min 09/01/2017 16:30:00 [facility] [place] Diastolic Blood Pressure 91 mm[Hg] 12/05/2017 03:33:[address] [place] [address] Harpreet Systolic Blood Pressure 123 mm[Hg] 12/05/2017 03:33:[address] [place], [place] [address]igan Peripheral Pulse Rate 92 bpm 12/05/2017 03:33:[address] [place] [address] Respiratory Rate 18 br/min 12/05/2017 03:33:[address] [place] [address] Harpreet Mean Arterial Pressure, Calc 88 mm[Hg] 12/02/2017 20:31:[address] [place] [address] Efrem phillips Temperature Tympanic 36.6 Berta 12/02/2017 [facility]:31[facility] Systolic Blood Pressure 120 mm[Hg] 01/19/2018 18:01:[address] [place] [address] Harpreet Diastolic Blood Pressure 89 mm[Hg] 01/19/2018 18:01:00 [facility] Harpreet Respiratory Rate 18 br/min 01/19/2018 18:01:00 [facility] Harpreet Temperature Tympanic 36.5 Berta 01/19/2018 18:01:00 [facility]12[facility] Harpreet Peripheral Pulse Rate 86 bpm 01/19/2018 18:01:00 [facility] Harpreet Mean Arterial Pressure, Calc 99 mm[Hg] 01/19/2018 18:01:00 [facility] Efrem phillips Respiratory Rate 16 br/min 08/12/2017 09:18:00 012[facility] Harpreet Heart Rate Monitored 91 bpm 08/12/2017 09:18:00 012[facility] Harpreet Systolic Blood Pressure 133 mm[Hg] 02/03/2018 15:56:00 012[facility] Harpreet Diastolic Blood Pressure 87 mm[Hg] 02/03/2018 15:56:00 012[facility] Harpreet Mean Arterial Pressure, Calc 102 mm[Hg] 02/03/2018 15:56:00 [facility] Efrem phillips Peripheral Pulse Rate 107 bpm 02/03/2018 15:56:00 [facility]12[facility] Harpreet Mean Arterial Pressure, Calc 91 mm[Hg] 09/30/2017 22:07:00 1480Harrieta n [place] Temperature Tympanic 36 Berta 09/30/2017 22:07:00 1480[facility] [place] Temperature Tympanic 36.2 Berta 07/23/2017 17:47:00 Ambulatory Pharmacy Heart Rate Monitored 81 bpm 08/12/2017 08:18:00 012[facility] Harpreet Respiratory Rate 16 br/min 08/12/2017 08:18:00 012[facility] Harpreet Heart Rate Monitored 79 bpm 08/12/2017 07:19:00 012[facility] Harpreet Heart Rate Monitored 79 bpm 08/12/2017 07:08:00 012[facility] Harpreet Systolic Blood Pressure 108 mm[Hg] 12/09/2017 21:49:00 1485[facility] [place] Diastolic Blood Pressure 76 mm[Hg] 12/09/2017 21:49:00 1485[facility] [place] Respiratory Rate 17 br/min 12/09/2017 21:49:00 1485[facility] [place] Temperature Tympanic 36.7 Berta 12/09/2017 21:49:00 1485[facility] [place] Mean Arterial Pressure, Calc 87 mm[Hg] 12/09/2017 21:49:00 148-[facility] Bk [place] Peripheral Pulse Rate 100 bpm 12/09/2017 21:49:00 148-[facility] [place]ord Respiratory Rate 18 br/min 01/25/2018 20:32:00 [facility]12[facility] Harpreet Temperature Tympanic 35.4 Berta 01/25/2018 20:32:00 012[facility] [place]preet Peripheral Pulse Rate 95 bpm 01/25/2018 20:32:00 [facility]12[facility] Harpreet Mean Arterial Pressure, Calc 96 mm[Hg] 01/25/2018 20:32:00 012[facility] Efrem phillips Systolic Blood Pressure 137 mm[Hg] 01/25/2018 20:32:00 012[facility] Harpreet Diastolic Blood Pressure 76 mm[Hg] 01/25/2018 20:32:00 012[facility] Harpreet Systolic Blood Pressure 125 mm[Hg] 02/25/2018 17:27:00 012[facility] Harpreet Diastolic Blood Pressure 85 mm[Hg] 02/25/2018 17:27:00 [facility]12[facility] Harpreet Temperature Tympanic 36.2 Berta 02/25/2018 17:27:00 012[facility] Harpreet Mean Arterial Pressure, Calc 98 mm[Hg] 02/25/2018 17:27:00 0125[facility] Efrem phillips Peripheral Pulse Rate 90 bpm 02/25/2018 17:27:00 0125[facility] Harpreet Temperature Tympanic 36.2 Berta 12/16/2017 15:20:00 1480[facility] [place] Mean Arterial Pressure, Calc 80 mm[Hg] 12/16/2017 15:20:00 1480C-[place]iana n [place] Systolic Blood Pressure 118 mm[Hg] 12/16/2017 15:20:00 1480[facility] [place] Diastolic Blood Pressure 61 mm[Hg] 12/16/2017 15:20:00 1480[facility] [place] Peripheral Pulse Rate 82 bpm 12/16/2017 15:20:00 1480[facility] [place] Heart Rate Monitored 74 bpm 08/12/2017 06:19:00 012[facility] Harpreet Diastolic Blood Pressure 94 mm[Hg] 12/05/2017 05:04:00 012[facility] Harpreet Systolic Blood Pressure 141 mm[Hg] 12/05/2017 [...] ADM Date DC Date Status Disposition Source [facility](Can non_FHC_T eam B) TELE CONSULT [id number] Notes Entered by: SHAHRIAR SIERRA 06 Mar 2015 1329 ------- ------- ------- ------- -- NETWORK RESULT- -02/28 ARELI ZAMARRIPA 03/06 [facility](C annon_F HC_Team B) [facility](Can non_FHC_T eam B) OUTPATIENT [id number] F/U COLEEN WILLETT 03/28 Released w/o Limitations [facility] [employer] [facility](C annon_F HC_Team B) [facility]) OUTPATIENT [id number] Per [facility] JOSE MCINTYRE 04/03 Released w/o Limitations [facility](B [facility]) [facility]) OUTPATIENT [id number] [facility] JOSE MCINTYRE 04/10 Released w/o Limitations [facility](B [facility]) [facility](Can non_FHC_T eam B) OUTPATIENT [id number] F/u per [facility] COLEEN WILLETT 04/11 Released w/o Limitations [facility](C annon_F HC_Team B) [facility](Can non_OpMed _Team A) TELE CONSULT [id number] Notes Entered by: MERLY WILKERSON 16 Apr 2015 1518 ------- ------- ------- ------- -- MRI script COLEEN WILLETT 04/16 [facility](C annon_O pMed_Te am A) [facility] [employer] [facility](Can non_FHC_T eam B) OUTPATIENT [id number] F/u Medicat COLEEN Molina 04/25 Released w/o Limitations [facility](C annon_F HC_Team B) [facility] [employer] [facility] OUTPATIENT [id number] MARGARITA MAYSDorcas Marshall 04/25 Released w/o Limitations [facility]) [facility]) OUTPATIENT [id number] JOSE MAYS 04/26 Released w/o Limitations [facility]) th [facility](Can non_FHC_T eam B) TELE CONSULT [id number] Notes Entered by: SHAHRIAR SIERRA 30 Apr 2015 1024 ------- ------- ------- ------- -- NETWORK TANNER- R KNEE NORAAY-05/2015 COLEEN WILLETT 04/[facility](C rashidaF HC_Team B) [facility]) OUTPATIENT [id number] [facility] MARGARITA MCINTYREDorcas Marshall 04/30 Released w/o Limitations [facility]) [facility]) TELE CONSULT [id number] Notes Entered by: JOSE MCINTYRE 02 May 2015 0731 ------- ------- ------- ------- -- JOSE Jennings 05/[facility]) [facility](Can non_FHC_T eam B) TELE CONSULT [id number] Notes Entered by: ANISA MACHUCA 02 May 2015 0812 ------- ------- ------- ------- -- ANGUS STAPLES 05/02 Referred for Appointment [facility](C annbipinF HC_Team B) th [facility](Can non_FHC_T eam B) TELE CONSULT [id number] Notes Entered by: HEATHER RUIZ 03 May 2015 1326 ------- ------- ------- ------- -- Network Results - Podiatr y - 04/2015 COLEEN WILLETT 05/[facility](C annon_F HC_Team B) [facility]_T ea B) TELE CONSULT [id number] Notes Entered by: LEATHA CARO 06 May 2015 1727 ------- ------- ------- ------- -- Network Results - MRI Brain - [id number] 8. COLEEN WILLETT 05/[facility](C annrhina_F HC_Team B) [facility](Can non_[facility] ea B) TELE CONSULT [id number] Notes Entered by: Dorcas ARZOLA 10 May 2015 1151 ------- ------- ------- ------- -- BILATER AL MAMMOGR AM. LEFT BREAST ULTRASO UND RESULTS LINDA OAKES 05/10 [facility](C annrhina_F HC_Team B) [facility]) TELE CONSULT [id number] Notes Entered by: JOSE MCINTYRE 10 May 2015 1900 ------- ------- ------- ------- -- [facility] JOSE MCINTYRE 05/[facility]) [facility]) OUTPATIENT [id number] [facility] JOSE MCINTYRE 05/11 Admitted th [facility]) [facility]) OUTPATIENT [id number] Pt is followi ng [facility] COLEEN WILLETT 06/06 Released w/o Limitations [facility](Tio lawson_F HC_Team B) th [facility]) TELE CONSULT [id number] Notes Entered by: JOSE MCINTYRE 06 Jun 2015 1302 ------- ------- ------- ------- -- JOSE Jennings 06/[facility]) [facility](Can non_[facility]_T eam A) TELE CONSULT [id number] Notes Entered by: SAMANTHA WILLIS 11 Jun 2015 1109 ------- ------- ------- ------- -- Needle Stick AISHWARYA KLEIN 06/11[facility](Tio Mcnamara ed_Team A) [facility]) OUTPATIENT [id number] [facility] JOSE MCINTYRE 06/12 Released w/o Limitations [facility]) [facility]) OUTPATIENT [id number] PAP. 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 06/25 Released w/o Limitations 27 [facility](G yn [facility]) 27 [facility](Can non_C_T eam B) TELE CONSULT [id number] Notes Entered by: ISHA RIZZO 26 Jun 2015 1322 ------- ------- ------- ------- -- 16 June 2015 [facility] ER GLENDY Grove 06/[facility](C lulu_F HC_Team B) [facility]) TELE CONSULT [id number] Notes Entered by: CHALINO MCGARRY 26 Jun 2015 1328 ------- ------- ------- ------- -- Care Coordin JOSE Hernandez 06/[facility](Can non_FHC_T eam B) TELE CONSULT [id number] Notes Entered by: NEETU PEREZ 02 Jul 2015 0913 ------- ------- ------- ------- -- LAB RESULTS AISHWARYA KLEIN 07/02[facility](C annon_F HC_Team B) [facility](Can non_FHC_T eam B) OUTPATIENT [id number] URINATI NG BLOOD X2 DAYS COLEEN WILLETT 07/03 Released w/o Limitations th [facility](C annon_F HC_Team B) [facility](Opt ometry [facility]) OUTPATIENT [id number] routine -ss TERRELL WILLAMS 07/03 Released w/o Limitations th [facility](O ptometr y [facility]) [facility](Can non_FHC_T eam B) TELE CONSULT [id number] Notes Entered by: HEATHER RUIZ 06 Jul 2015 1022 ------- ------- ------- ------- -- Network Results - Mental Health - 06/2015 COLEEN WILLETT 07/[facility](C annon_F HC_Team B) th [facility] OUTPATIENT [id number] [facility] JOSE MCINTYRE 07/10 Released w/o Limitations th [facility]) th [facility](Can non_FHC_T eam B) TELE CONSULT [id number] Notes Entered by: MISA CASH 16 Jul 2015 1425 ------- ------- ------- ------- -- NETWORK RESULTS -ER- COLEEN WILLETT 07/16[facility](C annon_F HC_Team B) th [facility](Can non_FHC_T eam B) OUTPATIENT [id number] Resched uled Thyroid blookwo rk COLEEN WILLETT 07/17 Released w/o Limitations th [facility](C annon_F HC_Team B) [facility] P) TELE CONSULT [id number] Notes Entered by: NATALIIA LIRA 17 Jul 2015 1524 ------- ------- ------- ------- -- [facility] Case Review SHAHEED BUCIO 07/[facility](E [facility]) th [facility](Can non_FHC_T eam B) TELE CONSULT [id number] Notes Entered by: NEETU PEREZ 18 Jul 2015 0746 ------- ------- ------- ------- -- BACK IS OUT GLENDY SILVA 07/18th [facility](C annrhina_F HC_Team B) [facility](Can non_FHC_T eam B) TELE CONSULT [id number] Notes Entered by: MISA CASH 18 Jul 2015 1152 ------- ------- ------- ------- -- NETWORK RESULTS -DELPHINE Marshall-07/17 COLEEN WILLETT 07/18[facility](C annon_F HC_Team B) [facility](Can non_FHC_T eam B) TELE CONSULT [id number] Notes Entered by: MISA CASH 18 Jul 2015 1625 ------- ------- ------- ------- -- NETWORK RESULTS -MRI L SPINE-1 09/18/14 COLEEN WILLETT 07/18 [facility](C annrhina_F HC_Team B) th [facility](Can non_FHC_T eam B) TELE CONSULT [id number] Notes Entered by: MISA CASH 20 Jul 2015 0943 ------- ------- ------- ------- -- NETWORK RESULTS -ER and ER (2)- COLEEN WILLETT 07/20 [facility](C annrhina_F HC_Team B) [facility](Can non_FHC_T eam B) TELE CONSULT [id number] Notes Entered by: THOMPSON 20 Jul 2015 1104 ------- ------- ------- ------- -- NETWORK RESULT- ER-JUL 01 COLEEN WILLETT 07/20 [facility](C annrhina_F HC_Team B) th [facility](Can non_FHC_T eam B) TELE CONSULT [id number] Notes Entered by: THOMPSON 20 Jul 2015 1117 ------- ------- ------- ------- -- NETWORK RESULT- ER(2)-2 JUL 01 COLEEN WILLETT 07/20 [facility](C annon_F HC_Team B) th [facility](Can non_FHC_T eam B) TELE CONSULT [id number] Notes Entered by: ANISA MACHUCA 24 Jul 2015 0925 ------- ------- ------- ------- -- GLENDY LOUIE 07/24th [facility](C annon_F HC_Team B) [facility](Can non_[facility]_T ea B) TELE CONSULT [id number] Notes Entered by: MISA CASH 24 Jul 2015 1005 ------- ------- ------- ------- -- NETWORK RESULTS -HOLTER MONITOR -08/31 COLEEN WILLETT 07/24 [facility](C annon_F HC_Team B) [facility]_T ea B) TELE CONSULT [id number] Notes Entered by: HEATHER RUIZ 25 Jul 2015 0829 ------- ------- ------- ------- -- Network Results - Neurolo gy - 06/2015 COLEEN WILLETT 07/25th [facility](C annon_F HC_Team B) [facility]_T ea B) TELE CONSULT [id number] Notes Entered by: NEETU PEREZ 30 Jul 2015 1404 ------- ------- ------- ------- -- URINE TEST GLENDY SILVA 07/30th [facility](C annon_F HC_Team B) th [facility](Angel [facility] t) TELE CONSULT [id number] Notes Entered by: TYRON HAYES 31 Jul 2015 1307 ------- ------- ------- ------- -- Elzbieta wells [facility] M&V JOSR ABEZA 07/31 Other Not Elsewhere Classified th [facility](N urse Case Managem ent) [facility](Angel se Case Managemen t) TELE CONSULT [id number] Notes Entered by: TYRON HAYES 01 Aug 2015 1423 ------- ------- ------- ------- -- [facility] JOSR HAYES 08/01 Other Not Elsewhere Classified [facility](N urse Case Managem ent) [facility](Can non_FHC_T eam B) TELE CONSULT [id number] Notes Entered by: ISHA RIZZO 07 Aug 2015 1440 ------- ------- ------- ------- -- [id number] [facility] AISHWARYA KLEIN 08/07th [facility](C annon_F HC_Team B) th [facility](Can non_FHC_T eam B) TELE CONSULT [id number] Notes Entered by: MISA CASH 20 Aug 2015 1015 ------- ------- ------- ------- -- NETWORK RESULTS -OPERAT ELIZABETH NOTE- COLEEN WILLETT 08/[facility](C annon_F HC_Team B) th [facility](Can non_FHC_T eam B) TELE CONSULT [id number] Notes Entered by: HEATHER RUIZ 21 Aug 2015 1250 ------- ------- ------- ------- -- Network Results - Cardiol ogy - 07/2015 COLEEN WILLETT 08/21th [facility](C annon_F HC_Team B) [facility](Can non_FHC_T eam B) TELE CONSULT [id number] Notes Entered by: HEATHER RUIZ 31 Aug 2015 1010 ------- ------- ------- ------- -- Network Results - Cardiol ogy - 07/2015 COLEEN WILLETT 08/31th [facility](C annon_F HC_Team B) th [facility](Can non_FHC_T eam B) OUTPATIENT [id number] lab work for hep COLEEN Gallego 09/04 Released w/o Limitations th [facility](C annon_F HC_Team B) th [facility](Can non_FHC_T eam B) TELE CONSULT [id number] Notes Entered by: ANISA MACHUCA 13 Sep 2015 1328 ------- ------- ------- ------- -- SLEEP MACHINE NEEDED AISHWARYA KLEIN 09/13 [facility](C annon_F HC_Team B) th [facility](Can non_FHC_T eam B) TELE CONSULT [id number] Notes Entered by: ANISA MACHUCA 17 Sep 2015 1420 ------- ------- ------- ------- -- MEDICAT ION GLENDY HARRIS 09/17 [facility](C annon_F HC_Team B) th [facility](Can non_FHC_T eam B) TELE CONSULT [id number] Notes Entered by: HEATHER RUIZ 20 Sep 2015 1015 ------- ------- ------- ------- -- Network Results - Neurolo gy - 08/2015 COLEEN WILLETT 09/[facility](C annon_F HC_Team B) th [facility](Can non_FHC_T eam B) TELE CONSULT [id number] Notes Entered by: HEATHER RUIZ 25 Sep 2015 0844 ------- ------- ------- ------- -- Network Results - Sleep Study - 07/2015 COLEEN WILLETT 09/[facility](C annon_F HC_Team B) [facility](Can non_FHC_T eam B) TELE CONSULT [id number] Notes Entered by: MISA CASH 08 Oct 2015 0757 ------- ------- ------- ------- -- NETWORK RESULTS -CARDIO LOGY- COLEEN WILLETT 10/08th [facility](C annon_F HC_Team B) th [facility](Can non_FHC_T eam B) OUTPATIENT [id number] CC ACID REFLUX COLEEN WILLETT 10/08 Released w/o Limitations th [facility](C annon_F HC_Team B) [facility](Can non_FHC_T eam B) TELE CONSULT [id number] Notes Entered by: Wicho EDWARDS 12 Oct 2015 1512 ------- ------- ------- ------- -- Possibl e yeast infecti on due to antibio tics GLENDY SILVA 10/12 [facility](C annon_F HC_Team B) th [facility](Can non_FHC_T eam B) TELE CONSULT [id number] Notes Entered by: NEETU PEREZ 15 Oct 2015 1325 ------- ------- ------- ------- -- MED EDUARDO CASH Released w/o Limitations th [facility](C annon_F HC_Team B) th [facility](Can non_FHC_T eam B) TELE CONSULT [id number] Notes Entered by: HEATHER RUIZ 16 Oct 2015 1453 ------- ------- ------- ------- -- Network Results - Endocri nology - 08/2015 COLEEN WILLETT 10/15 [facility](C annrhina_F HC_Team B) [facility]) TELE CONSULT [id number] Notes Entered by: LANI BARNHART 19 Oct 2015 1015 ------- ------- ------- ------- -- VULVA BLEEDIN LUIS MANUEL Maddox R ED AND SWOLLEN ALL BENRAL 10/18 [facility]) OUTPATIENT [id number] pelvic exam ALL BERNAL 10/21 Released w/o Limitations [facility](Can non_FHC_T eam B) TELE CONSULT [id number] Notes Entered by: LANI BARNHART 23 Oct 2015 1223 ------- ------- ------- ------- -- LAB RESULTS ALL BERNAL 10/22 [facility](C annrhina_F HC_Team B) [facility](Can non_FHC_T eam B) TELE CONSULT [id number] Notes Entered by: MISA CASH 12 Nov 2015 1559 ------- ------- ------- ------- -- NETWORK RESULTS -CPAP COMPLIA NCE REPORT- 6 COLEEN WILLETT 11/11 [facility](C lulu_F HC_Team B) [facility](Can non_FHC_T eam B) OUTPATIENT [id number] CC KNEES PAINFUL AND SWELLIN G GETTING WORSE COLEEN WILLETT 11/15 Released w/o Limitations [facility](C annrhina_F HC_Team B) th [facility](Can non_FHC_T eam B) TELE CONSULT [id number] Notes Entered by: HEATHER RUIZ 16 Nov 2015 1410 ------- ------- ------- ------- -- Network Results - Neurosu rgery - 07/2015 ; Pain Managem ent - 10/2015 ; ARELI ZAMARRIPA 11/15 [facility] [employer] [facility](C annrhina_F HC_Team B) [facility]) OUTPATIENT [id number] Obesity , unspeci fied MANUEL MOSS 11/19 Released w/o Limitations [facility]) [facility](Can non_FHC_T eam B) TELE CONSULT [id number] Notes Entered by: MISA CASH 21 Nov 2015 1352 ------- ------- ------- ------- -- NETWORK RESULTS -CAROSOSA D ARTERY DUPLEX REPORT- 6 COLEEN WILLETT 11/20 [facility](C annrhina_F HC_Team B) [facility](Can non_FHC_T eam B) TELE CONSULT [id number] Notes Entered by: MISA CASH 23 Nov 2015 1718 ------- ------- ------- ------- -- NETWORK RESULTS -CARDIO LOGY- COLEEN WILLETT 11/22th [facility](C annrhina_F HC_Team B) th [facility](Can non_FHC_T eam B) TELE CONSULT [id number] Notes Entered by: MISA CASH 27 Nov 2015 1620 ------- ------- ------- ------- -- NETWORK RESULTS -MRI L and R KNEES-0 11/26/15 [place] 11/26 Advice Assessment th [facility](C annon_F HC_Team B) th [facility](Can non_FHC_T eam B) TELE CONSULT [id number] Notes Entered by: Linh SILVA 28 Nov 2015 1545 ------- ------- ------- ------- -- Med request GLENDY SILVA 11/27th [facility](C annon_F HC_Team B) th [facility](Can non_FHC_T eam B) TELE CONSULT [id number] Notes Entered by: HEATHER RUIZ 04 Dec 2015 1058 ------- ------- ------- ------- -- Network Results - Podiatr y - 11/2015 COLEEN WILLETT 12/03th [facility](C annon_F HC_Team B) th [facility](Can non_FHC_T eam B) TELE CONSULT [id number] Notes Entered by: MISA CASH 05 Dec 2015 1551 ------- ------- ------- ------- -- NETWORK RESULTS -UPPER GI ENDOSCO PY-10/17 09/01 COLEEN WILLETT 12/04th [facility](C annon_F HC_Team B) th [facility](Can non_FHC_T eam B) TELE CONSULT [id number] Notes Entered by: Wicho EDWARDS 06 Dec 2015 1050 ------- ------- ------- ------- -- Elzbieta WILSONDIMITRY Wicho 12/05 Referred for Appointment 27th [facility](C annon_F HC_Team B) [facility](Can non_FHC_T eam B) TELE CONSULT [id number] Notes Entered by: MISA CASH 06 Dec 2015 1722 ------- ------- ------- ------- -- NETWORK RESULTS -CARDIO LOGY- COLEEN WILLETT 12/05th [facility](C annon_F HC_Team B) 27[facility](Can non_FHC_T eam B) TELE CONSULT [id number] Notes Entered by: KODI COREY 10 Dec 2015 1133 ------- ------- ------- ------- -- Candelario wolffogpia. [id number] COLEEN WILLETT 12/09th [facility](C annon_F HC_Team B) [facility](Can non_FHC_T eam B) [id number] [facility] COLEEN Vieyra 12/11 Released w/o Limitations 27[facility](C annon_F HC_Team B) [facility](Can non_FHC_T eam B) TELE CONSULT [id number] Notes Entered by: LANI BARNHART 18 Dec 2015 1034 ------- ------- ------- ------- -- MEDICAT ION REFILL GLENDY SILVA 12/17th [facility](C annon_F HC_Team B) [facility] , [id number] MAHAMED POWER 01/14 DISCHARGED HOME [facility], [facility] [id number] MAHAMED POWER 01/21 DISCHARGED HOME [facility] [address]) OUTPATIENT [id number] HAVING A REACTIO N TO HER BLOOD THINNER MICHAEL ROMERO Kamla 02/11 Released w/o Limitations [facility] [address]) [facility] [address]) OUTPATIENT [id number] Notes Entered by: Linh FAM 13 Feb 2016 1322 ------- ------- ------- ------- -- Risk Managem ent Review SOHAM FAM 02/12 Released w/o Limitations [facility] [address]) [facility], [facility] [id number] ERIC ARTEAGA 02/13 DISCHARGED HOME [facility] [facility] INPATIENT [id number] [facility] JEFF SAUCEDO 02/13 Inpatient- Still a Patient [facility]([place] [facility] Interdi sciplin bi) [facility] [facility]) TELE CONSULT [id number] Notes Entered by: LUNA 19 Feb 2016 1555 ------- ------- ------- ------- -- Follow up hospita l davidar STEVEN Begum 02/18 [facility]([place] [facility] Cardiol ogy Anticoa gulatio n) [facility]) OUTPATIENT [id number] Notes Entered by: Linh FAM 20 Feb 2016 1024 ------- ------- ------- ------- -- case managem ent SOHAM FAM 02/19 Released w/o Limitations [facility] [address]) [facility] [facility]) OUTPATIENT [id number] Pulmona ry embolis STEVEN Gutierrez 02/20 Released w/o Limitations [facility] Cardiol ogy Anticoa gulatio n) [facility]([place] [facility]) TELE CONSULT [id number] Notes Entered by: Pia ESTEVES 25 Feb 2016 0932 ------- ------- ------- ------- -- Labs STEVEN BAXTER 02/24 [facility]([place] [facility] Cardiol ogy Anticoa gulatio n) [facility]([place] [facility]) TELE CONSULT [id number] Notes Entered by: LUNA 25 Feb 2016 1511 ------- ------- ------- ------- -- Pt not able to do labs today STEVEN BAXTER 02/24 [facility]([place] [facility] Cardiol ogy Anticoa gulatio n) [facility] [address] [place]) TELE CONSULT [id number] Notes Entered by: VÍCTOR RODRIGUEZ 26 Feb 2016 0838 ------- ------- ------- ------- -- Appoint ment SOHAM FAM 02/25 [facility] [address]) [facility]([place] [facility] l[facility]) TELE CONSULT [id number] Notes Entered by: LUNA 26 Feb 2016 1603 ------- ------- ------- ------- -- basilio valerioion of INR results and STEVEN Albright 02/25 [facility]([place] Cardiol ogy Anticoa gulatio n) [facility] TELE CONSULT [id number] Notes Entered by: GABY MOLINA 27 Feb 2016 1116 ------- ------- ------- ------- -- Family hx breast/ ocarian cancers GABY MORE 02/26 [facility]) [facility] [address]) OUTPATIENT [id number] Notes Entered by: Linh FAM 28 Feb 2016 1049 ------- ------- ------- ------- -- case SOHAM Muniz 02/27 Released w/o Limitations [facility] F[facility]) [facility] igan Cardiolog y Anticoagu lation) TELE CONSULT [id number] Notes Entered by: ALEJANDRA AGRAWAL 29 Feb 2016 1636 ------- ------- ------- ------- -- nano devlinm ALEJANDRA Betst 02/28 [facility]([place] [facility] Cardiol ogy Anticoa gulatio n) [facility] igan Cardiolog y Anticoagu lation) TELE CONSULT [id number] Notes Entered by: ALEJANDRA AGRAWAL 10 Mar 2016 1348 ------- ------- ------- ------- -- nano devlinm ALEJANDRA Betts 03/10 [facility]([place] Cardiol [facility]gy Anticoa gulatio n) [facility]) OUTPATIENT [id number] Prebx appt GABY MORE F 03/10 Released w/o Limitations [facility]) [facility] OUTPATIENT [id number] Prebx ed/coun carrie GABY MORE F 03/13 Released w/o Limitations [facility]) [facility] igan Cardiolog y Anticoagu lation) TELE CONSULT [id number] Notes Entered by: KENNEDY E 13 Mar 2016 1519 ------- ------- ------- ------- -- Patient has upcomin g procedu re, may need to tempora rily discont inue anticoSTEVEN Kasper 03/13 [facility]([place] Cardiol [facility]gy Anticoa gulatio n) [facility] igan Cardiolog y Anticoagu lation) TELE CONSULT [id number] Notes Entered by: ISHA MUNOZ 14 Mar 2016 1258 ------- ------- ------- ------- -- Documen tation of INR results and warfari ng dosing. \ ISHA MUNOZ 03/14 [facility]([place] [facility] Cardiol [facility]gy Anticoa gulatio n) [facility] igan Cardiolog y Anticoagu lation) TELE CONSULT [id number] Notes Entered by: ISHA MUNOZ 17 Mar 2016 1325 ------- ------- ------- ------- -- Documen tation of INR results and warfari ng dosing. ISHA MUNOZ 03/17 [facility]ticoa [facility]atio n) [facility]) TELE CONSULT [id number] Notes Entered by: Steff JACOBSEN 18 Mar 2016 0905 ------- ------- ------- ------- -- Virtual Polypha rmacy review IAW SAÚL/ID DC Policy Molina [id number] JONH JACOBSEN 03/18 [facility] [address]) [facility]([place] [facility]) TELE CONSULT [id number] Notes Entered by: Mali GROVES 21 Mar 2016 1445 ------- ------- ------- ------- -- INR results and dosing plan GEORGETTE MOTA 03/21 [facility]([place] Cardiol ogy Anticoa gulatio n) [facility]) TELE CONSULT [id number] Notes Entered by: GABY MOLINA 02 Apr 2016 1327 ------- ------- ------- ------- -- Breast biopsy results GABY MORE 04/02 [facility]) [facility]([place] [facility] l[facility]) TELE CONSULT [id number] Notes Entered by: SARA DAIGLE 04 Apr 2016 1145 ------- ------- ------- ------- -- Patient concern s ISHA MUNOZ 04/04 [facility]([place] Cardiol [facility]gy Anticoa gulatio n) [facility]) OUTPATIENT [id number] migrane s/dizzy HARSHA Snyder 04/07 Released w/o Limitations [facility]) [facility]([place] [facility]) TELE CONSULT [id number] Notes Entered by: Mali GROVES 11 Apr 2016 1526 ------- ------- ------- ------- -- INR results and dosing plan , venlafa xine 100mg starts tomorro ALEJANDRA Muñiz 04/11 [facility](Rebecca thomas Cardiol ogy Anticoa gulatio n) [facility]([address]) TELE CONSULT [id number] Notes Entered by: Linh FAM 22 May 2016 0905 ------- ------- ------- ------- -- f/u HARSHA De La Cruz 05/22 [facility](A [address]) [facility]) TELE CONSULT [id number] Notes Entered by: GABY MOLINA 29 May 2016 1311 ------- ------- ------- ------- -- Family hx breast cancer GABY MORE 05/29 [facility]) [facility]([address]) TELE CONSULT [id number] Notes Entered by: JOSSELIN NEGRON 30 May 2016 1508 ------- ------- ------- ------- -- Med Rx problem s JOSSELIN NEGRON 05/30 [facility] [address]([address]) TELE CONSULT [id number] Notes Entered by: JASMEET WOLFF 02 Jun 2016 0803 ------- ------- ------- ------- -- prescri ption not called in correct ly JOSSELIN NEGRON 06/02 [facility] [address]) [facility]([address]) TELE CONSULT [id number] Notes Entered by: SAWYER GIORDANO 16 Jun 2016 0854 ------- ------- ------- ------- -- [facility] ANDI [facility] 06/16 [facility] for [facility](A [address]) [facility]([address]) OUTPATIENT [id number] [facility] [facility] back pain ARLINE HARSHA Cason 06/18 [facility]ased w/o Limitations [facility]A [address]) [facility] y [facility]agu l[facility]) TELE CONSULT [id number] Notes Entered by: ISHA MUNOZ 24 Jun 2016 1245 ------- ------- ------- ------- -- Pt had PT/INR drawn with request of INR results and warfari n dosing / Documen tat ISHA MUNOZ 06/24 [facility] [facility] Anticoa gulatio n) [facility]([address]) OUTPATIENT [id number] pain VÍCTOR Wheat 07/07 [facility] w/o Limitations [facility](A [address]) [facility]([address]) TELE CONSULT [id number] Notes Entered by: VÍCTOR RODRIGUEZ 09 Jul 2016 1231 ------- ------- ------- ------- -- Adrianat FILIPE Maxwell 07/09 [facility] to [facility] [address]) [facility]) OUTPATIENT [id number] Migrain e, unspeci fied, not intract able, with status migrain osus ADRIAN TAPIA 07/16 [facility]ased w/o Limitations [facility]) [facility]([address]) TELE CONSULT [id number] Notes Entered by: Linh FAM 16 Jul 2016 1325 ------- ------- ------- ------- -- MRI order needed for Neurosu VÍCTOR Mustafa 07/16 [facility](A [address]) [facility]([place] [facility] ) OUTPATIENT [id number] Notes Entered by: NORBERT TAPIA 16 Jul 2016 1431 ------- ------- ------- ------- -- Botox ADRIAN TAPIA 07/16 [facility] w/o Limitations [facility](Rebecca thomas Interve ntional Radiolo gy) [facility]([address]) TELE CONSULT [id number] Notes Entered by: Linh FAM 17 Jul 2016 0912 ------- ------- ------- ------- -- rx request VÍCTOR RODRIGUEZ 07/17 [facility](A [address]) [facility](Ana rosurgery ) OUTPATIENT [id number] Low back pain DEEDEE LAWRENCE 07/22 [facility]ased w/o Limitations [facility](N eurosur melissa) [facility]([place] [facility]tico[facility] lation) TELE CONSULT [id number] Notes Entered by: ISHA MUNOZ 24 Jul 2016 0941 ------- ------- ------- ------- -- Pt had PT/INR drawn with request of INR results and warfari n dosing / Documen tat ISHA MUNOZ 07/24 [facility] Cardiol [facility]gy Anticoa gulatio n) [facility]([place] [facility]) TELE CONSULT [id number] Notes Entered by: SENTHIL SandsSAHARA Dorcas 29 Jul 2016 1019 ------- ------- ------- ------- -- NETWORK RESULTS /GI/REF LUX EVAL/DO S 6/UPLOA DED IN [facility]ENTER[facility] Dorcas 07/29 Other Not Elsewhere Classified [facility]) [facility]([place] [facility]) TELE CONSULT [id number] Notes Entered by: SENTHIL SandsSAHARA Dorcas 29 Jul 2016 1217 ------- ------- ------- ------- -- NETWORK RESULTS /GI/LAB RS/DOS /UPLOA DED IN THE MEDICAL CENTERMS [facility] Dorcas 07/29 Other Not Elsewhere Classified [facility] [facility]) [facility]) OUTPATIENT [id number] DISCUSS BARIATR IC SURGERY VÍCTOR RODRIGUEZ 07/31 Released w/o Limitations [facility] F[facility]) [facility]) OUTPATIENT [id number] Notes Entered by: Linh FAM 05 Aug 2016 1252 ------- ------- ------- ------- -- case manage ent SOHAM FAM 08/05 Released w/o Limitations [facility] F[facility]) [facility]) TELE CONSULT [id number] Notes Entered by: Linh FAM 05 Aug 2016 1258 ------- ------- ------- ------- -- bladder concern s VÍCTOR RODRIGUEZ 08/05 [facility] F[facility]) [facility]) TELE CONSULT [id number] Notes Entered by: VÍCTOR RODRIGUEZ 05 Aug 2016 1442 ------- ------- ------- ------- -- Parking Sticker JOSSELIN NEGRON Sanjay 08/05 [facility] for [facility] [address]) [facility](Ana rosurgery ) OUTPATIENT [id number] 2ND OPINION , PRIOR DR DK Ross PT. RAYMOND KENNEDY 08/06 Released w/o Limitations [facility](N eurosur melissa) [facility] [address]) TELE CONSULT [id number] Notes Entered by: VÍCTOR RODRIGUEZ 06 Aug 2016 1508 ------- ------- ------- ------- -- Urine results DONNA REESE 08/06 [facility] [address]) [facility]([place] [facility]ticoagu lation) TELE CONSULT [id number] Notes Entered by: LUNA 07 Aug 2016 144 ------- ------- ------- ------- -- End of Oral Anticoa gulatio n Therapy STEVEN BAXTER 08/07 [facility]([place] Cardiol ogy Anticoa gulatio n) [facility]([place] [facility]) OUTPATIENT [id number] INTAKE DARRIAN LEACH 08/12 Released w/o Limitations [facility]([place] Pain Interdi sciplin bi) [facility]([place] [facility]) TELE CONSULT [id number] Notes Entered by: Vickie PEREZ 13 Aug 2016 1542 ------- ------- ------- ------- -- NETWORK RESULTS GI EGD 016 JO PEREZ Sanjay 08/13 Other Not Elsewhere Classified [facility] [facility]) [facility]) OUTPATIENT [id number] pain in back,ri bs and hips,fe ll last week VÍCTOR RODRIGUEZ 08/14 Released w/o Limitations [facility] F[facility]) [facility] TELE CONSULT [id number] Notes Entered by: VÍCTOR RODRIGUEZ 15 Aug 2016 1432 ------- ------- ------- ------- -- Follow- up VÍCTOR RODRIGUEZ 08/15 [facility](A [facility] F[facility]) [facility](Uro logy) TELE CONSULT [id number] Notes Entered by: REJI DIAZ 19 Aug 2016 1427 ------- ------- ------- ------- -- Hematur ia DANYELL DIAZ 08/19 Released w/o Limitations [facility](U rology) [facility]([place] [facility]) TELE CONSULT [id number] Notes Entered by: SINTIA NAVARRETE 20 Aug 2016 0805 ------- ------- ------- ------- -- NETWORK RESULTS /US RUQ/DOS [id number]/ UPLOADE D INTO [facility] KHADAR NAVARRETE 08/20 Other Not Elsewhere Classified [facility]) [facility](Gen eral Surgery) OUTPATIENT [id number] Obesity , unspeci fied IAN LOPEZ 08/21 Released w/o Limitations [facility](G eneral Surgery ) [facility]([place] [facility]) TELE CONSULT [id number] Notes Entered by: BRANDT BATISTA 22 Aug 2016 1103 ------- ------- ------- ------- -- NETWORK RESULTS GI DIAGNOS TIC STUDIES / LABS DOS 12.9.20 16 BRANDT BATISTA 08/22 Other Not Elsewhere Classified [facility]) [facility]([place] [facility]) OUTPATIENT [id number] low back pain (INT EVAL) FROILAN MORRIS 08/27 Released w/o Limitations [facility]([place] Pain Interdi sciplin bi) [facility]) TELE CONSULT [id number] JOSSELIN NEGRON 08/29 [facility]) [facility] ADMISSION RESULTING FROM [facility], [id number] RAYMOND KENNEDY 09/01 DISCHARGED HOME [facility]([place] Weight [facility]ag[facility] t Case Managemen t) OUTPATIENT [id number] Notes Entered by: MARISELA CANALES 04 Sep 2016 1447 ------- ------- ------- ------- -- removal from bariatr ic pathway JOSE E CANALES 09/04 Released w/o Limitations [facility](M [place] Weight Managem ent Case Managem ent) [facility]) TELE CONSULT [id number] Notes Entered by: GIANFRANCO MONTALVO 05 Sep 2016 0857 ------- ------- ------- ------- -- [facility] Inpatie nt Follow Up GIANFRANCO MONTALVO 09/05 [facility] F[facility]B [facility]) [facility] F[facility]) TELE CONSULT [id number] Notes Entered by: VÍCTOR RODRIGUEZ 05 Sep 2016 1117 ------- ------- ------- ------- -- ECHO Pain Report VÍCTOR RODRIGUEZ 09/05 [facility] [address]) [facility] ER, [facility] [id number] ARELI COUCH 09/08 DISCHARGED HOME [facility] [address]) TELE CONSULT [id number] Notes Entered by: GIANFRANCO MONTALVO 12 Sep 2016 0831 ------- ------- ------- ------- -- [facility] Inpatie nt Follow Up VÍCTOR RODRIGUEZ 09/12 [facility] Jerry([facility] [address]) [facility]) TELE CONSULT [id number] Notes Entered by: GABY MOLINA 17 Sep 2016 1101 ------- ------- ------- ------- -- Br cancer hi risk f/u GABY MORE 09/17 [facility]) [facility]([address]) TELE CONSULT [id number] Notes Entered by: Linh FAM 17 Sep 2016 1529 ------- ------- ------- ------- -- med refill SOHAM FAM 09/17 [facility] [address]) [facility]) OUTPATIENT [id number] Med Review BRADY SAUCEDO 09/19 Released w/o Limitations [facility]) [facility] [address]) OUTPATIENT [id number] f/u hosp discect malorie/torrez inectom y L5 VÍCTOR RODRIGUEZ 09/19 Released w/o Limitations [facility](A y Medical Home [address] [place]) [facility](Uro logy) OUTPATIENT [id number] hematur OLIVE Ledbetter 09/23 Released w/o Limitations [facility](U rology) [facility] [address] [place]) OUTPATIENT [id number] Notes Entered by: Linh FAM 23 Sep 2016 1508 ------- ------- ------- ------- -- case managem ent SOHAM FAM 09/23 Released w/o Limitations [facility] [place] [id number] [place]) [facility]([address] [place]) TELE CONSULT [id number] Notes Entered by: VÍCTOR RODRIGUEZ 24 Sep 2016 0717 ------- ------- ------- ------- -- SOHAM Nicholson 09/24 [facility] [address] [place]) [facility](Ana rosurgery ) OUTPATIENT [id number] post-op f/u, DOS 08 September 2016 RAYMOND KENNEDY 09/24 Released w/o Limitations [facility](N eurosur melissa) [facility]([address] [place]) TELE CONSULT [id number] Notes Entered by: Linh FAM 24 Sep 2016 0943 ------- ------- ------- ------- -- SOHAM Trejo 09/24 [facility] [place] [id number] [place]) [facility]([place] [employer] Oncology) OUTPATIENT [id number] 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/?H RT IESHA DAVALOS 09/30 Released w/o Limitations [facility]([place] [employer] Oncolog y) [facility] [place] [id number] [facility]) OUTPATIENT [id number] Notes Entered by: Linh FAM 20 Oct 2016 1455 ------- ------- ------- ------- -- Case Managerebecca ent SOHAM FAM 10/20 Released w/o Limitations [facility] 1B [facility]) [facility] [address]) TELE CONSULT [id number] Notes Entered by: JOSSELIN NEGRON 28 Oct 2016 1504 ------- ------- ------- ------- -- Labs prior to apptj JOSSELIN NEGRON 10/28 Referred for Appointment [facility] [address]) [facility](Ana rology Clinic) OUTPATIENT [id number] ADRIAN Mejia 10/29 Released w/o Limitations [facility](N eurolog y Clinic) [facility]([address]) OUTPATIENT [id number] F/U FOR IRON LEVELS IRINA GIL 11/05 Released w/o Limitations [facility]) [facility]([place] [facility]) TELE CONSULT [id number] Notes Entered by: SAHARA POLLACK 06 Nov 2016 0928 ------- ------- ------- ------- -- NETWORK RESULTS /GI/EGD BX/DOS 7/UPLOA DED IN TEJAS SAHARA RAMÍREZ 11/06 Other Not Elsewhere Classified [facility](M martha [facility]) [facility]([place] Echo Pain Teleconfe ren) TELE CONSULT [id number] Notes Entered by: [place] LEACH 13 Nov 2016 1735 ------- ------- ------- ------- -- ECHO Pain TeleCon ference Present ation 04 Sep 2016 MARTINEZ LEACHI Linh 11/14 [facility]([place]becca [place] Echo Pain Telecon ference ) [facility]([address]) OUTPATIENT [id number] Notes Entered by: Linh FAM 30 Dec 2016 1731 ------- ------- ------- ------- -- case managem ent SOHAM FAM 12/31 Released w/o Limitations [facility](A [address]) [facility]([address]) TELE CONSULT [id number] Notes Entered by: Linh FAM 08 Jan 2017 1427 ------- ------- ------- ------- -- radiolo gy request s JOSSELIN NEGRON 01/08 [facility] [address]) OUTPATIENT [id number] Pt fell, hurt her back [place] 01/08 Released w/o Limitations [facility](A [address]) [facility]a [facility] ) OUTPATIENT [id number] had fall recentl y needs reeval. RAYMOND KENNEDY 01/20 Released w/o Limitations [facility](N [place] [facility]) [facility] Health Outcome Managemen t) OUTPATIENT [id number] Notes Entered by: Linh FAM 26 Jan 2017 1212 ------- ------- ------- ------- -- case managem ent SOHAM FAM 01/26 Released w/o Limitations [facility] Health Outcome Managem ent) [facility]([address]) TELE CONSULT [id number] Notes Entered by: JOSSELIN NEGRON 29 Jan 2017 0838 ------- ------- ------- ------- -- Imaging results ERIC JESSICA 01/29 [facility] F01B [place]) [facility]([place] [id number] [place]) OUTPATIENT [id number] review dexa scan and labs RUANOJOSE V 02/06 [facility]ased w/o Limitations [facility] F01B [place]) [facility] Optometry ) OUTPATIENT [id number] eye exam PAU KOEHLER 02/13 [facility]ased w/o Limitations [facility] Optomet ry) [facility] Health Outcome Managemen t) OUTPATIENT [id number] Notes Entered by: Linh FAM 17 Mar 2017 1106 ------- ------- ------- ------- -- case managem ent SOHAM FAM 03/17 [facility] Health Outcome Managem ent) [facility]([place] [address] [place]) TELE CONSULT [id number] Notes Entered by: Linh FAM 19 Mar 2017 1640 ------- ------- ------- ------- -- referra l request for Bariatr ic Surgery ERIC JESSICA 03/19 [facility] for [facility]([place] [id number] [place]) [facility]([place] [address] [place]) OUTPATIENT [id number] referra villeda for bariatr ic surgery [place] 03/23 Released w/o Limitations [facility]([place] [address] [place]) OUTPATIENT [id number] well woman exam/di scuss hormone s MARIBELL JOHN 03/26 Released w/o Limitations [facility]) [facility]) TELE CONSULT [id number] Notes Entered by: GABY MOLINA 01 Apr 2017 1447 ------- ------- ------- ------- -- 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 GABY MORE 04/01 [facility]) [facility]) TELE CONSULT [id number] Notes Entered by: Linh FAM 16 Apr 2017 1408 ------- ------- ------- ------- -- MED REFILL ERIC JESSICA 04/16 Medication [facility]ill [facility]ed [facility]) [facility] Health Outcome Managemen t) OUTPATIENT [id number] Notes Entered by: Linh FAM 21 Apr 2017 0929 ------- ------- ------- ------- -- case managem ent SOHAM FAM 04/21 Released w/o Limitations [facility] Health Outcome Managem ent) [facility](Gen eral [facility]) OUTPATIENT [id number] Obesity , unspeci fied IAN LOPEZ 04/23 [facility]ased w/o Limitations [facility] ) [facility] OUTPATIENT [id number] Botox ADRIAN TAPIA 04/24 [facility]ased w/o Limitations [facility]) [facility] Case Managemen t) OUTPATIENT [id number] BariJOSE E Paulson 04/28 Released w/o Limitations [facility] Weight Managem ent Case Managem ent) [facility]) OUTPATIENT [id number] healthy eating PATEL QUINN 04/28 Released w/o Limitations [facility](Re[facility] Nutrit[facility] on [facility]) [facility] F[facility] [place]) OUTPATIENT [id number] Initial bariatr ic pathway [place] Wero 04/28 Released w/o Limitations [facility](A [facility] F[address] [place]) [facility]([place] [employer]) OUTPATIENT [id number] [facility] Support Group FRANSICO VEGA 04/29 Released w/o Limitations [facility]([place] [employer] Outpati ent) [facility] F[facility] [place]) TELE CONSULT [id number] JEANAPABLO MARMOLEJO Wero 05/05 [facility](A [facility] F[address] [place]) [facility]([place] [employer] Oncology) OUTPATIENT [id number] PT ESTEVAN BARTON 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, COULD NO RETRIEV E RCLIN, GEORGIE GREENE 05/19 Released w/o Limitations [facility]([place] [employer] Right Of Way Oncolog y) [facility]([place] [employer]emen [employer] Case Managemen t) OUTPATIENT [id number] Notes Entered by: ZARINA IBRAHIM 21 May 2017 0752 ------- ------- ------- ------- -- [facility] DEVORAH ALCARAZ 05/21 Released w/o Limitations [facility]([place] Weight Managem ent Case Managem ent) Procedures Combined list of: 1) Procedures from Department of Veterans Affairs facilities going back up to thelast 18 months, not all VA non-surgical procedures are included; 2) All procedures from the Department of Defense facilities. Procedure Procedure Type Code Date Perfomer Comments Sourc e No data available for this section [facility] PSYCHOTHERAPY, 60 MINUTES WITH PATIENT 06/04 [facility] COORDINATED CARE FEE, MAINTENANCE RATE 05/21 DoD HEALTH AND BEHAVIOR INTERVENTION, EACH 15 MINUTES, [id number]; GROUP (2 OR MORE PATIENTS) 04/28 [facility] MEDICAL NUTRITION THERAPY; GROUP (2 OR MORE INDIVIDUAL(S)), EACH 30 MINUTES 04/28 DoD COORDINATED CARE FEE, RISK ADJUSTED MAINTENANCE 04/28 DoD INJECTION(S), ANESTHETIC AGENT(S) AND/OR STEROID; GREATER OCCIPITAL NERVE 04/24 DoD PSYCHOTHERAPY, 60 MINUTES WITH PATIENT 04/23 DoD PHYS/OTH QUALIFIED HEALTH ANALYTICS SENIOR MANAGER QUALIFIED,EDUCATIO N,TRAIN,LICENSURE/ REGULATION (WHEN APPLICABLE) EDUC [...] DoD CASE MANAGEMENT, EACH 15 MINUTES 03/17 DoD DETERMINATION OF REFRACTIVE STATE 02/13 DoD BRIEF [...] NUMBER OF CONSTITUENTS; W/O MICRO, NON-AUTO 09/23 [facility] MEDICATION THERAPY MGT SERVICE(S) PROVIDED,A PHARMACIST,Wero MUIR YAHAIRA-TO-FACE W PATIENT,WITH ASSESS & INTERVENE IF PROVIDED;EA ADDITION 15 MINUTES (LIST SEPARATELY IN ADDITION TO CODE FOR PRIM SERVICE) 09/19 [facility] COORDINATED CARE FEE, RISK ADJUSTED MAINTENANCE, LEVEL 3 09/16 [facility] INSPECTION OF LUMBOSACRAL JOINT, OPEN APPROACH 09/11 DoD EXCISION OF LUMBOSACRAL DISC, OPEN APPROACH 09/11 DoD POSTOPERATIVE FOLLOW-UP VISIT, NORMALLY INCLUDED IN THE SURGICAL PACKAGE, INDICATE THAT EVALUATION & MANAGEMENT SERVICE WAS PERFORMED DURING A POSTOPERATIVE PERIOD REASON RELATED ORIGINAL PROCEDURE 09/11 DoD POSTOPERATIVE FOLLOW-UP VISIT, NORMALLY INCLUDED IN THE SURGICAL PACKAGE, INDICATE THAT EVALUATION & MANAGEMENT SERVICE WAS PERFORMED DURING A POSTOPERATIVE PERIOD REASON RELATED ORIGINAL PROCEDURE 09/10 DoD POSTOPERATIVE FOLLOW-UP VISIT, NORMALLY INCLUDED IN THE SURGICAL PACKAGE, INDICATE THAT EVALUATION & MANAGEMENT SERVICE WAS PERFORMED DURING A POSTOPERATIVE PERIOD REASON RELATED ORIGINAL PROCEDURE 09/09 [facility] LAMINOTOMY (HEMILAMINECTOMY), WITH DECOMPRESSION OF NERVE ROOT(S), INCLUDING PARTIAL FACETECTOMY, FORAMINOTOMY &/ EXCISION OF HERNIATED INTERVERTEBRAL DISC, REEXPLORATION, SINGLE INTERSPACE; LUMBAR 09/08 DoD INJECTION, ONDANSETRON HCL, PER 1 MG 09/08 DoD CASE MANAGEMENT, EACH 15 MINUTES 09/04 DoD [...] WITH PATIENT 08/26 DoD PHYS/OTH QUALIFIED HEALTH ANALYTICS SENIOR MANAGER QUALIFIED,EDUCATIO N,TRAIN,LICENSURE/ REGULATION (WHEN APPLICABLE) EDUC SER RENDERED TO PATS IN A GRP SETTING (EG,,OBESI TY,OR DIABETIC INSTRUCT) 08/21 DoD CASE MANAGEMENT, EACH 15 MINUTES 08/20 [facility] PSYCHIATRIC DIAGNOSTIC EVALUATION WITH MEDICAL SERVICES 08/07 DoD CASE MANAGEMENT, EACH 15 MINUTES 08/05 [facility] BRIEF EMOTIONAL/BEHAVIOR AL ASSESSMENT (EG, DEPRESSION INVENTORY, ATTENTION-DEFICIT/ HYPERACTIVITY DISORDER [ADHD] SCALE), WITH SCORING AND DOCUMENTATION, PER STANDARDIZED INSTRUMENT 08/04 [facility] PSYCHIATRIC DIAGNOSTIC EVALUATION 07/31 DoD CASE MANAGEMENT, EACH 15 MINUTES 07/29 DoD INJECTION(S), ANESTHETIC AGENT(S) AND/OR STEROID; GREATER OCCIPITAL NERVE 07/16 DoD CASE MANAGEMENT, EACH 15 MINUTES 07/15 [facility] PNEUMOCOCCAL POLYSACCHARIDE VACCINE, 23-VALENT (PPSV23), ADULT OR IMMUNOSUPPRESSED PATIENT DOSAGE, WHEN ADMINISTERED TO INDIVIDUALS 2 YEARS OR OLDER, FOR SUBCUTANEOUS OR INTRAMUSCULAR USE 07/09 [facility] PSYCHOTHERAPY, 45 MINUTES WITH PATIENT 07/09 DoD CASE MANAGEMENT, EACH 15 MINUTES 07/09 DoD CASE MANAGEMENT, EACH 15 MINUTES 07/02 DoD PSYCHOTHERAPY, 45 MINUTES WITH PATIENT 06/17 DoD INTRAVENOUS INFUSION, HYDRATION; EACH ADDITIONAL HOUR (LIST SEPARATELY IN ADDITION TO CODE FOR PRIMARY PROCEDURE) 06/14 [facility] COORDINATED CARE FEE, RISK ADJUSTED MAINTENANCE 05/20 [...] SPECIMEN,WHEN PERFORMED,PERCUT;F IRST LESION,INCLUDING ULTRASOUND GUIDANCE 03/18 [facility] PHYS/OTH QUALIFIED HEALTH ANALYTICS SENIOR MANAGER QUALIFIED,EDUCATIO N,TRAIN,LICENSURE/ REGULATION (WHEN APPLICABLE) EDUC SER RENDERED TO PATS IN A GRP SETTING (EG,,OBESI TY,OR DIABETIC INSTRUCT) 03/13 DoD CASE MANAGEMENT, EACH 15 MINUTES 02/27 [facility] EDUCATION &TRAINING, PATIENT SELF-MGT QUALIFIED, NONPHYSICIAN HEALTH ANALYTICS SENIOR MANAGER USING STDIZED CURRICULUM, [id number] W THE PATIENT (COULD INCL CAREGIVER/FAMILY) EA 30 MIN; INDIVIDUAL PATIENT 02/20 DoD CASE MANAGEMENT, EACH 15 MINUTES 02/19 DoD INTRODUCTION OF OTHER THERAPEUTIC SUBSTANCE INTO SUBCUTANEOUS TISSUE, PERCUTANEOUS APPROACH 02/14 DoD INJECTION, ENOXAPARIN SODIUM, 10 MG 02/13 DoD CASE MANAGEMENT, EACH 15 MINUTES 02/12 [facility] TRANSFUSION OF NONAUTOLOGOUS RED BLOOD CELLS INTO PERIPHERAL VEIN, PERCUTANEOUS APPROACH 01/27 DoD HEALTH AND BEHAVIOR INTERVENTION, EACH 15 MINUTES, [id number]; FAMILY (WITH THE PATIENT PRESENT) 01/23 DoD HEALTH&BEHAV ASSESSMENT (EG, HEALTH-FOC CLINICAL INTERVIEW, BEHAVIORAL OBSERVATIONS, PSYCHOPHYSICOLOGIC AL MONITOR, HEALTH-ORIENT QUESTIONNAIRES), EA 15 MIN PHNV-QX-DFAS W THE PATIENT; INIT ASSESSMENT 01/22 DoD INJECTION, NALOXONE HCL, PER 1 MG 01/22 [facility] HOME MANAGEMENT TREATMENT USING ASSISTIVE, ADAPTIVE, SUPPORTIVE [...] - LOWER BACK / LOWER EXTREMITY 01/20 DoD MUSCLE PERFORMANCE ASSESSMENT OF MUSCULOSKELETAL SYSTEM - LOWER BACK / LOWER EXTREMITY USING ASSISTIVE, ADAPTIVE, SUPPORTIVE OR PROTECTIVE EQUIPMENT 01/20 DoD RANGE OF MOTION AND JOINT INTEGRITY ASSESSMENT OF MUSCULOSKELETAL SYSTEM - UPPER BACK / UPPER EXTREMITY 01/20 DoD MUSCLE PERFORMANCE ASSESSMENT OF MUSCULOSKELETAL SYSTEM - UPPER BACK / UPPER EXTREMITY USING ASSISTIVE, ADAPTIVE, SUPPORTIVE OR PROTECTIVE EQUIPMENT 01/20 DoD TRANSFER TRAINING TREATMENT USING ASSISTIVE, ADAPTIVE, SUPPORTIVE OR PROTECTIVE EQUIPMENT 01/20 DoD GROOMING/PERSONAL HYGIENE ASSESSMENT USING ASSISTIVE, ADAPTIVE, SUPPORTIVE OR PROTECTIVE EQUIPMENT 01/20 DoD ERGONOMICS AND BODY MECHANICS ASSESSMENT USING ASSISTIVE, ADAPTIVE, SUPPORTIVE OR PROTECTIVE EQUIPMENT 01/20 [facility] BED MOBILITY TREATMENT USING ASSISTIVE, ADAPTIVE, SUPPORTIVE OR PROTECTIVE EQUIPMENT 01/20 [facility] INTRODUCTION OF OTHER THERAPEUTIC SUBSTANCE INTO SUBCUTANEOUS TISSUE, PERCUTANEOUS APPROACH 01/20 [facility] MOTOR FUNCTION ASSESSMENT OF NEUROLOGICAL SYSTEM - LOWER BACK / LOWER EXTREMITY 01/20 [facility] INTRODUCTION OF ANALGESICS, HYPNOTICS, SEDATIVES INTO PERIPHERAL VEIN, PERCUTANEOUS APPROACH 01/20 DoD HEALTH&BEHAV ASSESSMENT (EG, HEALTH-FOC CLINICAL INTERVIEW, BEHAVIORAL OBSERVATIONS, PSYCHOPHYSICOLOGIC AL MONITOR, HEALTH-ORIENT QUESTIONNAIRES), EA 15 MIN MBWM-IN-IOAL W THE PATIENT; INIT ASSESSMENT 01/17 [facility] INJECTION, MORPHINE SULFATE, UP TO 10 MG 01/13 DoD TELE ASSESS & MGT SRV PROV [...] HR/SOON APT;5-10 MIN MED DIS 05/02 DoD Coordinated care fee, risk adjusted maintenance 02/18 SOHAM FAM [facility] Non-Physician Phone Call To Patient/Provider Brief (5-10min) Non-Physician Phone Call To Patient/Provider Brief (5-10min) [id number] 11/27 GLENDY SILVA [facility] Medical Nutrition Therapy Group (2 or More Individual(s)) Medical Nutrition Therapy Group (2 or More Individual(s)) [id number] 11/22 MANUEL MOSS [facility] Non-Physician Phone Call To Patient/Provider Brief (5-10min) Non-Physician Phone Call To Patient/Provider Brief (5-10min) [id number] GLENDY SILVA [facility] Non-Physician Phone Call To Patient/Provider Brief (5-10min) Non-Physician Phone Call To Patient/Provider Brief (5-10min) [id number] 09/13 AISHWARYA KLEIN [facility] Non-Physician Phone Call To Patient/Provider Brief (5-10min) Non-Physician Phone Call To Patient/Provider Brief (5-10min) [id number] 08/20 GLENDY SILVA [facility] Case Management, each 15 minutes 08/01 JOSR HAYES DoD Case Management, each 15 minutes 07/31 JOSR HAYES 45 minutes - review of records, completion and fax of UHCM&V CM referral, and documentation [facility] Determination Of Refractive State Determination Of Refractive State [id number] 07/04 TERRELL WILLAMS [facility] Ophthalmological New Patient Start Comprehensive Care Ophthalmological New Patient Start Comprehensive Care [id number] 07/04 TERRELL WILLAMS [facility] Non-Physician Phone Call To Patient/Provider Brief (5-10min) Non-Physician Phone Call To Patient/Provider Brief (5-10min) [id number] 06/26 GLENDY SILVA [facility] Screening papanicolaou smear; obtaining, preparing and conveyance of cervical or vaginal smear to laboratory 06/25 ALL BERNAL [facility] Non-Physician Phone Call To Patient/Provider Brief (5-10min) Non-Physician Phone Call To Patient/Provider Brief (5-10min) [id number] 06/11 AISHWARYA KLEIN [facility] Non-Physician Phone Call To Patient/Provider Brief (5-10min) Non-Physician Phone Call To Patient/Provider Brief (5-10min) [id number] 05/03 ANGUS PEREZ [facility] Case Management, each 15 minutes 05/21 DEVORAH ALCARAZ Chart review, relay health, and documentation [facility] Coordinated care fee, maintenance rate 05/21 DEVORAH ALCARAZ [facility] Health And Behav Intervention, Each 15 Min Grp (2 Or More) Health And Behav Intervention, Each 15 Min Grp (2 Or More) [id number] 04/29 FRANSICO VEGA [facility] Medical Nutrition Therapy Group (2 or More Individual(s)) Medical Nutrition Therapy Group (2 or More Individual(s)) [id number] 04/28 PATEL JARA [facility] Coordinated care fee, risk adjusted maintenance 04/28 JOSE E CANALES [facility] Case Management, each 15 minutes 04/28 JOSE E CANALES AG#1,5,1,17 [facility] Injection, onabotulinumtoxina , 1 unit 04/26 ADRIAN TAPIA Nerve Block Greater Occipital 04/[address]Supervised Group Educational Services -Supervised Group Educational Services [id number] 04/[address]Supervised Services Provision Of Educational Supplies -Supervised Services Provision Of Educational Supplies [id number] 04/24 IAN LOPEZ Case Management, each 15 minutes 04/23 SOHAM FAM 2.5 hours for targeted assessment and coordination of services. [facility] Coordinated care fee, maintenance rate 04/23 SOHAM FAM Immunization Administration One Vaccine Immunization Administration One Vaccine 48397 03/27 [place] Hepatitis A And Hepatitis B (Intramuscular Use) Adult Dosage Hepatitis A And Hepatitis B (Intramuscular Use) Adult Dosage 11353 03/27 [place] Hep A-Hep B; Series #: 1; 1.0 mL; IM; Left Arm; Mfg: First Aid Shot Therapy; Lot: [id number]; VIS given (Michael: 03/05/16; 03/05/16). [facility] Case Management, each 15 minutes 03/19 3 hours for targeted assessmetn and complex coordination of services. [facility] Coordinated care fee, risk adjusted maintenance 03/19 [facility] Determination Of Refractive State Determination Of Refractive State [id number] 02/13 CHAO KOEHLER [facility] Ophthalmological New Patient Start Comprehensive Care Ophthalmological New Patient Start Comprehensive Care [id number] 02/13 CHAO KOEHLER Coordinated care fee, risk adjusted maintenance 01/30 SOAHM FAM 3.5 hrs spent on coordination of care, targeted assessment, and emotional support. Hanane Case Management, each 15 minutes 01/30 SOHAM FAM Case Management, each 15 minutes 01/06 SOHAM FAM 4 hrs for targeted assessment, coordination of services, and careplan. [facility] Coordinated care fee, risk adjusted maintenance 01/06 SOHAM FAM Nerve Block Greater Occipital 10/30 ADRIAN TAPIA Injection, onabotulinumtoxina , 1 unit 10/30 REGINA, YINCE DoD Case Management, each 15 minutes 10/22 SOHAM FAM 3 hours for targeted assessment, coordination of care, and followup phone calls. [facility] Coordinated care fee, risk adjusted maintenance 10/22 SOHAM FAM [facility] Coordinated care fee, risk adjusted maintenance 09/26 SOHAM FAM Case Management, each 15 minutes 09/26 SOHAM FAM 4 hrs for targeted assessment, 3 phone followups, complex coordination of services, and patient activation simple for education. [facility] Routine UA Without Microscopic Examination Routine UA Without Microscopic Examination [id number] 09/23 DOUGIE DIAZ Cystoscopy (Diagnostic) Cystoscopy (Diagnostic) 63386 09/23 DOUGIE DIAZ Medication Management By Pharmacist Each Additional 15 Min Medication Management By Pharmacist Each Additional 15 Min [id number] 09/19 BRADY SAUCEDO Med Management By Pharmacist Initial 15 Min New Patient Med Management By Pharmacist Initial 15 Min New Patient [id number] 09/19 BRADY SAUCEDO Intervention And Counseling On Ce ation Of Tobacco Use Intervention And Counseling On Cessation Of Tobacco Use 4000F 09/19 BRADY SAUCEDO Case Management, each 15 minutes 09/17 SOHAM FAM 2 hrs spent doing inpatient hospital followup and coordination of services. [facility] Coordinated care fee, risk adjusted maintenance, Level 3 09/17 SOHAM FAM [facility] Case Management, each 15 minutes 09/05 SOHAM FAM 4 hours for inpatient hospital followup, complex coordination of services, Multi D meeting for pain mgmt, and 2 followup phone calls. [facility] Coordinated care fee, risk adjusted maintenance 09/05 SOHAM FAM [facility] Coordinated care fee, maintenance rate 09/04 JOSE E CANALES [facility] Case Management, each 15 minutes 09/04 JOSE E CANALES AG#2 [facility] Case Management, each 15 minutes 08/26 SOHAM FAM 3 hours for targeted assessment, coordination of services with , emotional support. [facility] Coordinated care fee, risk adjusted maintenance 08/26 SOHAM FAM [facility] Psychiatric Evaluation Review of Records and Reports Psychiatric Evaluation Review of Records and Reports [id number] 08/21 IESHA LUONG The patient's available records (medication/pres criptions, relevant progress notes, and relevant labs) were reviewed outside of a face to face appointment for the purpose of aiding in treatment planning and/or development of diagnoses. [facility] Case Management, each 15 minutes 08/07 SOHAM FAM 3 hrs spent with patient for targeted assessments, followup phone calls X 3, complex coordination of services. [facility] Coordinated care fee, risk adjusted maintenance 08/07 SOHAM FAM Psychiatric Evaluation Comprehensive Examination Psychiatric Evaluation Comprehensive Examination 44689 07/31 YURIY LOPEZ Case Management, each 15 minutes 07/31 SOHAM FAM 3 hours for targeted assessment, complex coordination of care. [facility] Coordinated care fee, risk adjusted maintenance 07/31 SOHAM FAM Case Management, each 15 minutes 07/18 SOHAM FAM 4 hrs this week working on targeted assessment, complex coordination of services with multiple providers of care, multiple followup phone calls to patient, [facility] Coordinated care fee, risk adjusted maintenance, Level 3 07/18 SOHAM FAM Nerve Block Greater Occipital 07/16 ADRIAN TAPIA Injection, onabotulinumtoxina , 1 unit 07/16 ADRIAN TAPIA [facility] Psychiat Ther Indiv Interactive Approximately 45-50 Minutes 07/16 VÍCTOR CRUZ [facility] Case Management, each 15 minutes 07/16 SOHAM FAM 3 hours for targeted assessment, coordination of referrals, and emotional support for pain management and lack of function. [facility] Coordinated care fee, risk adjusted maintenance 07/16 SOHAM FAM [facility] Immunization Administration One Vaccine Immunization Administration One Vaccine 88093 07/09 VÍCTOR RODRIGUEZ [facility] Immunization Administration Each Additional Vaccine Immunization Administration Each Additional Vaccine 89467 07/09 VÍCTOR RODRIGUEZ 1. Patient denies feeling sick with fever 2. Patient denies having a serious reaction to a flu vaccine 3. Patient denies having [place] syndrom (GBS) 4. Patient denies having a [...] benefits and risks of the influenza vaccine. [facility] Tdap Vaccine Tdap Vaccine 27083 07/09 VÍCTRO RODRIGUEZ Tdap; Series #: 1; .5 mL; IM; Right Arm; Mfg: First Aid Shot Therapy; Lot: [id number]; VIS given (Michael: 10/10/14). [facility] Pneumococcal Polysaccharide Vaccine (Age 2Y+) Pneumococcal Polysaccharide Vaccine (Age 2Y+) 48666 07/09 VÍCTOR RODRIGUEZ Pneumococcal polysaccharide PPV23; Series #: 1; .5 mL; IM; Left Arm; Mfg: tagga; Lot: [id number]; VIS given (Michael: 12/08/14). [facility] Case Management, each 15 minutes 07/03 SOHAM FAM Targeted assessment, coordination of care, Multi D discussions. [facility] Coordinated care fee, risk adjusted maintenance 07/03 SOHAM FAM Psychiat Ther Indiv Interactive Approximately 45-50 Minutes 06/24 VÍCTOR CRUZ Case Management, each 15 minutes 05/22 SOHAM FAM 3 hours for targeted assessment and complex coordination of care, [facility] Coordinated care fee, risk adjusted maintenance 05/22 SOHAM FAM Case Management, each 15 minutes 05/15 SOHAM FAM 5 hours for comprehensive care to targeted/modifie d followup for pain, updated careplan, complex coordination of services for multiple referrals, individual emotional support to include LUKAS and Depression scoring. [facility] Coordinated care fee, risk adjusted maintenance 05/15 SOHAM FAM Non-Physician Phone Call To Patient/Provider Brief (5-10min) Non-Physician Phone Call To Patient/Provider Brief (5-10min) [id number] 04/14 KATHY GROVES Non-Physician Phone Call To Patient/Provider Brief (5-10min) Non-Physician Phone Call To Patient/Provider Brief (5-10min) [id number] 03/[address]Supervised Services Provision Of Educational Supplies -Supervised Services Provision Of Educational Supplies 72825 03/13 GABY MORE [facility] -Supervised Group Educational Services -Supervised Group Educational Services [id number] 03/13 GABY MORE [facility] Case Management, each 15 minutes 03/04 SOHAM FAM 3 hours with multiple f/u calls to patient, complex coordinaton of services with multiple specialties and appts needed, Mult D meeting with two providers of care. [facility] Coordinated care fee, risk adjusted maintenance 03/04 SOHAM FAM Medication Management By Pharmacist Each Additional 15 Min Medication Management By Pharmacist Each Additional 15 Min [id number] 02/25 STEVEN BAXTER Med Management By Pharmacist Initial 15 Min New Patient Med Management By Pharmacist Initial 15 Min New Patient [id number] 02/25 STEVEN BAXTER Preventive Medicine Anticoagulant Therapy Warfarin Preventive Medicine Anticoagulant Therapy Warfarin 4012F 02/25 STEVEN BAXTER Patient Counseling Medical Management Individual Patient Patient Counseling Medical Management Individual Patient [id number] 02/25 STEVEN BAXTER Case Management, each 15 minutes 02/21 SOHAM FAM 3 hrs spent doing Transitional Care post discharge from hospital, multi D with several providers of care, patient teaching/activat ion regarding anticoagulation therapy to assess understanding, and coordination of service. [facility] Coordinated care fee, risk adjusted maintenance, Level 3 02/21 SOHAM FAM Case Management, each 15 minutes 02/18 SOHAM FAM 5 hrs spent on the following: Initial Assessment, Face To Face Health Care Goal Planning, Complex Coordination of a Service with multiple specialties, Risk Assessment, Hospital Discharge, [facility] Social History Combined list of available smoking, [...] section is an empty social history section. [facility] Assessment and Plan Combined list of future care activities from Department of Defense and Veterans Affairs facilities (e.g., assessment and plan notes, appointments, orders, and referrals). Additional future care activities may be listed in the Plan of Care section. Result Assessment and Plan Date Source Assessment and Plan Extracted from:Title : Neurology Office Visit Note Author: ADRIAN TAPIA Date: 02/26/18 Cervico-occipital neuralgia 1. H eadaches. Given the positive response, I will b ring the patient back for scheduled B otox dosing, which will be administered at a later time/date. Lucinda santillan discussed the possibility of changing or adding an oral preventative as an adjunct which helps synergistically but mutually decided to keep the current regimen unchanged. The abortives will remain unchanged as well. 2. Cervicalgia. I will proceed with Botox today. 3. O ccipital neuralgia. W jacque will administer block admixed with Botox as discussed with pain management. 4. TMJ. S he describes severe teeth clenching which seem to be triggering her migraines and that she may benefit from masseter and temporalis injections as well. The risks, benefits, side effects, and alternatives of therapy discussed with the patient, who verbalizes understanding. I spent 21 minutes of my 40 minutes sxwq-jd-iwar with the patient discussing the examination, therapy, epidemiology, history, and natural course of the patient's condition to include the importance of sleep, weight loss, and stress avoidance; I also emphasized the need for regular q3 months dosing as well as the need for oral medications to help bridge the transient frequency increase between doses. Inga selby for allowing us to participate in the care of this patient. The pt gave informed consent and risk, benefits, and alternatives to this procedure were discussed. The pt was positioned in the sitting position and the target sites was identified. The area was prepped with an alcohol pad. 2cc of a 100u/cc dilution of Botox-A was administered intramuscularly at the following sites: 2.5u x 2 corrugators 5u x 5 frontalis 10u x 2 bilateral temporalis 15u x 2 splenius capitis 15u x 2 occipitalis 15u x 2 splenius cervicalis 10u x 2 cervical paraspinal Next, we proceeded with occipital nerve block. A tiffany was prepped with an alcohol pad. 1.6cc of a 0 .1cc dilution of 1 00u/cc of Botox-A was a dmixed with 0.5 cc lidocaine/Marcaine/Kenalog was a dministered intramuscularly a t the bilateral greater occipital notch into 4 separate injections each. After the nerve block, the patient was in extreme pain and thus we did not proceed with TMJ injections but will entertain at the next session. I counseled her that this may provoke a more severe migraine and she is used to following Botox. The patient tolerated the procedure well. MD NICCI Cox, Interventional Neuroradiology Staff [facility] Ordered: onabotulinumtoxinA, 200 units, IntraMuscular, Injection, Once, First Dose: 02/25/2018 16:00:00 PDT, Stop Date: 02/25/2018 16:00:00 PDT CHEMODEN,1 EXT;EA ADD,1-4 [facility] 99442 N Block Inj, Occipital 91237 Common migraine without aura Ordered: onabotulinumtoxinA, 200 units, IntraMuscular, Injection, Once, First Dose: 02/25/2018 16:00:00 PDT, Stop Date: 02/25/2018 16:00:00 PDT [facility] Musc Migraine 22134 Extracted from:Title: Office Clinic Note Author: JACOBY JONAS Date: 01/26/18 1. D evice status Ordered: Ankle foot orthosis, ankle gauntlet L1902 Foot, arch support, removable, premolded, longitudinal L3040 Orthotic Mgmt+Trainj Uxtr Lxtr+/Trnk Ea 15 Min 74221 2. T ibialis tendonitis Ordered: Ankle foot orthosis, ankle gauntlet L1902 Foot, arch support, removable, premolded, longitudinal L3040 Orthotic Mgmt+Trainj Uxtr Lxtr+/Trnk Ea 15 Min 83119 3. T ibialis tendonitis Ordered: Ankle foot orthosis, ankle gauntlet L1902 Foot, arch support, removable, premolded, longitudinal L3040 Orthotic Mgmt+Trainj Uxtr Lxtr+/Trnk Ea 15 Min 12819 Extracted from:Title: Neurology Office Visit Note Author: ADRIAN TAPIA Date: 01/22/18 Cervico-occipital neuralgia 1. H eadaches. Given the positive response o ther than the most recent dose, I will?continue her Botox regimen in one month. I also discussed the possibility of having a bad? b atch of Botox which I have seen in the past. 2. C ervicalgia. I will continue her Botox regimen in one month. 3. P ossible occipital neuralgia. I will try a nerve block today and if this benefits her, we will continue them at the same time as her Botox injections. The risks, benefits, side effects, and alternatives of therapy discussed with the patient, who verbalizes understanding. I spent 21 minutes of my 40 minutes yaig-dl-mfyc with the patient discussing the examination, therapy, [...] prepped with an alcohol pad. 1cc of a 1 .5 cc mixture of 1:1:1 lidocaine: Marcaine: Kenalog w as administered a t the greater occipital notch bilaterally spread equally into 4 quadrants. ? The patient tolerated the procedure well. Adrian Tapia MD [facility] Interventional Neuroradiology Ordered: Bilateral N Block Inj, Occipital 38702 Office Visit Level 4 Est 69443 Extracted from:Title: General Surgery Clinic Note Author: SOO CERRATO Date: 12/15/17 32yoF with non-reducible LLQ mass. Potential hernia given previous surgery, but current mass is lateral to previous incision. Also potential for scar endometriosis, but acute onset would be atypical. No concern for strangulation/incarceration. W ill obtain CT abdomen/pelvis to better characterize mass. Extracted from:Title: Office Clinic Note Author: PABLO HILLS Date: 12/09/17 1. L ow back pain Chronic Will place new referral [...] plan provided to patient. Patient verbalized understanding. Ordered: Office Visit Level 4 Est 25285 2. P endulous breast Bilateral. Will refer back to Plastics Clinic for further evaluation and treatment. Ordered: Office Visit Level 4 Est 52932 3. B ilateral foot pain Chronic. Will get bilateral foot xrays and will refer patient to Podiatry Clinic. patient is aware that her weight is a contributing factor. [place], [employer], SOUBRETTE Ordered: Office Visit Level 4 Est 78505 XR Foot 2 Views Bilateral Orders: lidocaine topical, 1 patches, Topical, Daily, Leave on for up to 12 hours within a 24 hour period (12 hours on, 12 hours off), # 30 patches, 5 total refill(s), [facility] dispense (Rx) [Not filled] Medical Referral Request Medical Referral Request Medical Referral Request Extracted from:Title: Botox injections for migraine Author: NICHOLE AU Date: 12/03/17 1. C ommon migraine without aura OnabotulinumtoxinA(Botox) injections Lot #: [id number] Expiration Date: MAR 2020 Concentration: 0.1ml = 5 units, no EMG guidance Muscle Right ? L eft Procerus midline 5 Clean Rice Grader And Reel Tender 5 units ? 5 units Frontalis 5 units x 2 ? 5 units x 2 Temporalis 5 units x 4 ? 5 units x 4 Occipitalis 5 units x 3 5 units x 3 Cervical Paraspinal(sup) 5 units x 2? 5 units x 2 Trapezius 5 units x 3 ? 5 units x 3 Total Units injected: 155 Patient tolerated procedure well without complications. -Patient will call to schedule follow up Botox injections in three months with Dr Tapia. Ordered: onabotulinumtoxinA, 155 units, IntraMuscular, Injection, Once, First Dose: 12/03/2017 15:00:00 PDT, Stop Date: 12/03/2017 15:00:00 PDT [facility] Musc Migraine 09006 Office Visit Level 2 Est 08046 Extracted from:Title: Clinical Pharmacy Note Bariatric Pathway Author: JONH JACOBSEN Date: 08/06/17 1. D rug monitoring done As part of the medication review for bariatric surgery pathway, the following was discussed: Patient identified by full name and . Patient is enrolled in the Bariatric Pathway. Identification of long acting medications which may be safely crushed vs. conversion to immediate release preparations: none Avoidance of any of NSAIDS/URIAS II, including OTC preparations and use of alternatives if required counseled on pre-surgery instructions of discontinuing these types medication. Counseled to use Acetaminophen for pain and to follow the Surgeon s instruction for post-operative pain care. Discussion of potential problems with swallowing tablets and alternatives: o P atient takes several medications that should not be crushed or altered Bupropion SR, Ibandronate (Boniva Eq) and Ferrous sulfate EC, o P atient takes Ferrous sulfate, folic acid and MNV if not tolerable, immediate release liquid formulations are available. o P atient takes Calcium carbonate data suggest the absorption is impaired when stomach acidity is decreased. Recommend using calcium citrate. o [facility] RY[facility] patients who require medication for psychiatric illnesses may require more diligent monitoring to ensure correct dosing of their medication. Patient was instructed to report any behavioral changes to her PCM/Surgeon. o P atient was instructed to report any swallowing difficulties to their PCM/Surgeon. Discussion of potential problem with dumping syndrome patient instructed to minimize or avoid the use of OTC products with sucrose, corn syrup, maltose, fructose, lactose, honey and mannitol. Post bariatric surgery requirements for supplementation: calcium supplements (calcium citrate), fat-soluble vitamins (vitamin A, D); folic acid, thiamine, iron, selenium, zinc. Discussed Plan with patient: o P atient encouraged to follow medication instructions per Surgeon/PCM o P atient encouraged to report any post operatively behavioral changes to her PCM/Surgeon o C ontinue to maximize on healthy lifestyles behaviors o F ollow-up as required per Bariatric Surgery pathway. o A ll questions answered and patient verbalizes understanding Total time spent with the patient was 20 minutes. Ordered: Medication Therapy Each Additional 15 Min 60246 Medication Therapy Initial 15 Min New Patient [id number] Extracted from:Title: Neurology Office Visit Note Author: ADRIAN TAPIA Date: 07/24/17 Common migraine without aura Impression and Plan: 1. Headaches. Despite the [...] spent 21 minutes of my 40 minutes cycf-kt-wrea with the patient discussing the examination, therapy, [...] was administered intramuscularly at the following sites: 2.5u x 2 corrugators 5u x 5 frontalis 10u x 2 bilateral temporalis 15u x 2 splenius capitis 15u x 2 occipitalis 15u x 2 splenius cervicalis 20u x 2 cervical paraspinal The patient tolerated the procedure well. Adrian Tapia MD Interventional Neuroradiology Extracted from:Title: Heel Pain, LEFT Author: JESUS ROBLES Date: 07/20/17 1. H eel pain T x acute pain w/ naprosyn (pt has used before and causes no issue despite h/o allergy to toredol. X-ray today - R/O fx. If neg will consider heel cups or podiatry referral. Ordered: naproxen, 1 tabs, Oral, BID, # 30 tabs, 0 total refill(s), 08/20/2017, [facility] pharmacy dispense (Rx) [Not filled] XR Calcaneous Left 01/13/[address] [place] [address] Assessment and Plan Extracted from:Title : Neurology Office Visit Note Author: ADRIAN TAPIA Date: 02/26/18 Cervico-occipital neuralgia 1. H eadaches. Given the positive response, I will b ring the patient back for scheduled B otox dosing, which will be administered at a later time/date. Lucinda santillan discussed the possibility of changing or adding an oral preventative as an adjunct which helps synergistically but mutually decided to keep the current regimen unchanged. The abortives will remain unchanged as well. 2. Cervicalgia. I will proceed with Botox today. 3. O ccipital neuralgia. W jacque will administer block admixed with Botox as discussed with pain management. 4. TMJ. S he describes severe teeth clenching which seem to be triggering her migraines and that she may benefit from masseter and temporalis injections as well. The risks, benefits, side effects, and alternatives of therapy discussed with the patient, who verbalizes understanding. I spent 21 minutes of my 40 minutes wuxx-nf-flif with the patient discussing the examination, therapy, epidemiology, history, and natural course of the patient's condition to include the importance of sleep, weight loss, and stress avoidance; I also emphasized the need for regular q3 months dosing as well as the need for oral medications to help bridge the transient frequency increase between doses. T travis you for allowing us to participate in the care of this patient. The pt gave informed consent and risk, benefits, and alternatives to this procedure were discussed. The pt was positioned in the sitting position and the target sites was identified. The area was prepped with an alcohol pad. 2cc of a 100u/cc dilution of Botox-A was administered intramuscularly at the following sites: 2.5u x 2 corrugators 5u x 5 frontalis 10u x 2 bilateral temporalis 15u x 2 splenius capitis 15u x 2 occipitalis 15u x 2 splenius cervicalis 10u x 2 cervical paraspinal Next, we proceeded with occipital nerve block. A tiffany was prepped with an alcohol pad. 1.6cc of a 0 .1cc dilution of 1 00u/cc of Botox-A was a dmixed with 0.5 cc lidocaine/Marcaine/Kenalog was a dministered intramuscularly a t the bilateral greater occipital notch into 4 separate injections each. After the nerve block, the patient was in extreme pain and thus we did not proceed with TMJ injections but will entertain at the next session. I counseled her that this may provoke a more severe migraine and she is used to following Botox. The patient tolerated the procedure well. Adrian Tapia MD [facility], Interventional Neuroradiology Staff [facility] Ordered: onabotulinumtoxinA, 200 units, IntraMuscular, Injection, Once, First Dose: 02/25/2018 16:00:00 PDT, Stop Date: 02/25/2018 16:00:00 PDT CHEMODEN,1 EXT;EA ADD,1-4 [facility] 68494 N Block Inj, Occipital 82009 Common migraine without aura Ordered: onabotulinumtoxinA, 200 units, IntraMuscular, Injection, Once, First Dose: 02/25/2018 16:00:00 PDT, Stop Date: 02/25/2018 16:00:00 PDT [facility] Musc Migraine 51156 Extracted from:Title: Office Clinic Note Author: JACOBY JONAS Date: 01/26/18 1. D evice status Ordered: Ankle foot orthosis, ankle gauntlet L1902 Foot, arch support, removable, premolded, longitudinal L3040 Orthotic Mgmt+Trainj Uxtr Lxtr+/Trnk Ea 15 Min 63602 2. T ibialis tendonitis Ordered: Ankle foot orthosis, ankle gauntlet L1902 Foot, arch support, removable, premolded, longitudinal L3040 Orthotic Mgmt+Trainj Uxtr Lxtr+/Trnk Ea 15 Min 59888 3. T ibialis tendonitis Ordered: Ankle foot orthosis, ankle gauntlet L1902 Foot, arch support, removable, premolded, longitudinal L3040 Orthotic Mgmt+Trainj Uxtr Lxtr+/Trnk Ea 15 Min 34983 Extracted from:Title: Neurology Office Visit Note Author: ADRIAN TAPIA Date: 01/22/18 Cervico-occipital neuralgia 1. H eadaches. Given the positive response o ther than the most recent dose, I will?continue her Botox regimen in one month. I also discussed the possibility of having a bad? b atch of Botox which I have seen in the past. 2. C ervicalgia. I will continue her Botox regimen in one month. 3. P ossible occipital neuralgia. I will try a nerve block today and if this benefits her, we will continue them at the same time as her Botox injections. The risks, benefits, side effects, and alternatives of therapy discussed with the patient, who verbalizes understanding. I spent 21 minutes of my 40 minutes gxzi-kc-tyrk with the patient discussing the examination, therapy, [...] prepped with an alcohol pad. 1cc of a 1 .5 cc mixture of 1:1:1 lidocaine: Marcaine: Kenalog w as administered a t the greater occipital notch bilaterally spread equally into 4 quadrants. ? The patient tolerated the procedure well. Adrian Tapia MD [facility] Interventional Neuroradiology Ordered: Bilateral N Block Inj, Occipital 12607 Office Visit Level 4 Est 25505 Extracted from:Title: General Surgery Clinic Note Author: SOO CERRATO Date: 12/15/17 32yoF with non-reducible LLQ mass. Potential hernia given previous surgery, but current mass is lateral to previous incision. Also potential for scar endometriosis, but acute onset would be atypical. No concern for strangulation/incarceration. W ill obtain CT abdomen/pelvis to better characterize mass. Extracted from:Title: Office Clinic Note Author: PABLO HILLS Date: 12/09/17 1. L ow back pain Chronic Will place new referral [...] plan provided to patient. Patient verbalized understanding. Ordered: Office Visit Level 4 Est 70628 2. P endulous breast Bilateral. Will refer back to Plastics Clinic for further evaluation and treatment. Ordered: Office Visit Level 4 Est 05041 3. B ilateral foot pain Chronic. Will get bilateral foot xrays and will refer patient to Podiatry Clinic. patient is aware that her weight is a contributing factor. [place], [employer], SOUBRETTE Ordered: Office Visit Level 4 Est 22858 XR Foot 2 Views Bilateral Orders: lidocaine topical, 1 patches, Topical, Daily, Leave on for up to 12 hours within a 24 hour period (12 hours on, 12 hours off), # 30 patches, 5 total refill(s), [facility] dispense (Rx) [Not filled] Medical Referral Request Medical Referral Request Medical Referral Request Extracted from:Title: Botox injections for migraine Author: NICHOLE AU Date: 12/03/17 1. C ommon migraine without aura OnabotulinumtoxinA(Botox) injections Lot #: [id number] Expiration Date: MAR 2020 Concentration: 0.1ml = 5 units, no EMG guidance Muscle Right ? L eft Procerus midline 5 Clean Rice Grader And Reel Tender 5 units ? 5 units Frontalis 5 units x 2 ? 5 units x 2 Temporalis 5 units x 4 ? 5 units x 4 Occipitalis 5 units x 3 5 units x 3 Cervical Paraspinal(sup) 5 units x 2? 5 units x 2 Trapezius 5 units x 3 ? 5 units x 3 Total Units injected: 155 Patient tolerated procedure well without complications. -Patient will call to schedule follow up Botox injections in three months with Dr Tapia. Ordered: onabotulinumtoxinA, 155 units, IntraMuscular, Injection, Once, First Dose: 12/03/2017 15:00:00 PDT, Stop Date: 12/03/2017 15:00:00 PDT [place] [facility] [place] [address] Office Visit Level 2 Est 91912 Extracted from:Title: Clinical Pharmacy Note Bariatric Pathway Author: JONH JACOBSEN Date: 08/06/17 1. D rug monitoring done As part of the medication review for bariatric surgery pathway, the following was discussed: Patient identified by full name and . Patient is enrolled in the Bariatric Pathway. Identification of long acting medications which may be safely crushed vs. conversion to immediate release preparations: none Avoidance of any of NSAIDS/URIAS II, including OTC preparations and use of alternatives if required counseled on pre-surgery instructions of discontinuing these types medication. Counseled to use Acetaminophen for pain and to follow the Surgeon s instruction for post-operative pain care. Discussion of potential problems with swallowing tablets and alternatives: o P atient takes several medications that should not be crushed or altered Bupropion SR, Ibandronate (Boniva Eq) and Ferrous sulfate EC, o P atient takes Ferrous sulfate, folic acid and MNV if not tolerable, immediate release liquid formulations are available. o P atient takes Calcium carbonate data suggest the absorption is impaired when stomach acidity is decreased. Recommend using calcium citrate. o [facility] patients who require medication for psychiatric illnesses may require more diligent monitoring to ensure correct dosing of their medication. Patient was instructed to report any behavioral changes to her PCM/Surgeon. o P atient was instructed to report any swallowing difficulties to their PCM/Surgeon. Discussion of potential problem with dumping syndrome patient instructed to minimize or avoid the use of OTC products with sucrose, corn syrup, maltose, fructose, lactose, honey and mannitol. Post bariatric surgery requirements for supplementation: calcium supplements (calcium citrate), fat-soluble vitamins (vitamin A, D); folic acid, thiamine, iron, selenium, zinc. Discussed Plan with patient: o P atient encouraged to follow medication instructions per Surgeon/PCM o P atient encouraged to report any post operatively behavioral changes to her PCM/Surgeon o C ontinue to maximize on healthy lifestyles behaviors o F ollow-up as required per Bariatric Surgery pathway. o A ll questions answered and patient verbalizes understanding Total time spent with the patient was 20 minutes. Ordered: Medication Therapy Each Additional 15 Min 12294 Medication Therapy Initial 15 Min New Patient [id number] Extracted from:Title: Neurology Office Visit Note Author: REGINANORBERTGOPAL Date: 07/24/17 Common migraine without aura Impression and Plan: 1. Headaches. Despite the [...] spent 21 minutes of my 40 minutes [id number] with the patient discussing the examination, therapy, [...] was administered intramuscularly at the following sites: 2.5u x 2 corrugators 5u x 5 frontalis 10u x 2 bilateral temporalis 15u x 2 splenius capitis 15u x 2 occipitalis 15u x 2 splenius cervicalis 20u x 2 cervical paraspinal The patient tolerated the procedure well. Adrian Tapia MD Interventional Neuroradiology Extracted from:Title: Heel Pain, LEFT Author: JESUS ROBLES Date: 07/20/17 1. H eel pain T x acute pain w/ naprosyn (pt has used before and causes no issue despite h/o allergy to toredol. X-ray today - R/O fx. If neg will consider heel cups or podiatry referral. Ordered: naproxen, 1 tabs, Oral, BID, # 30 tabs, 0 total refill(s), 08/20/2017, [facility] pharmacy dispense (Rx) [Not filled] XR Calcaneous Left 01/13/[address] [place] [address] Functional Status Combined list of recent functional and cognitive assessments recorded at [facility] [employer] [facility] [place] Functional Bucks Measurement (FIM) Scale: 1 = Total Assistance (Subject = 0% +), 2 = Maximal Assistance (Subject = 25% +), 3 = Moderate Assistance (Subject = 50% +), 4 = Minimal Assistance (Subject = 75% +), 5 = Supervision, 6 = Modified Bucks (Device), 7 = Complete Bucks (Timely, Safely). Assessment Date/Time Source Assessment Type Assessment Skill Assessment Score Assessment Details FUNCTIONAL 12/16/17 Home Dietary Supplements Captured Yes
--- OUTSIDE RECORDS SUMMARY | 2025-01-13 16:28 | XMS_ITS | Data Portability ---
Author Organization [facility] - [facility] ADMIN Address [address] [place] [id number] Assessment Encounter Date Assessment Date Assessment LastModified by Organization Details LastModified Time 06/23/2024 06/23/2024 Ms. Macias was referred by Dr. Velez (neurology) for management of chronic migraines. She denies DM, history of infection, or anti-coagulan t use. [email or web address] Not available 06/23/2024 17:51:54 Plan of Treatment Reminders Order Date Submit Date Provider Last Modified By Organization Details Last Modified Time Details Appointments None recorded. Lab vitamin D, 25-hydroxy, total, serum 2023 024 MARYAM [facility], [address], [address], [place], [address], 4 20:39:28 CBC w/ auto diff 2023 024 MARYAM [facility], [address], [address], [place], [address], 4 20:39:24 thiamine, QN, blood 2023 024 MARYAM [facility], [address], [address], [place], [address], 4 20:39:29 prealbumin, serum 2023 024 MARYAM [facility], [address], [address], [place], [address], 4 20:39:33 copper, serum or plasma 2023 024 MARYAM [facility], [address], [address], [place], [address], 4 20:39:31 selenium, quantitativ e, blood 2023 024 MARYAM [facility], [address], [address], [place], [address], 4 20:39:33 zinc, serum or plasma 2023 024 MARYAM [facility], [address], [address], [place], [address], 4 20:39:32 CMP, serum or plasma 2023 024 MARYAM [facility], [address], [address], [place], [address], 4 20:39:25 iron + TIBC + ferritin, serum 2023 024 MARYAM [facility], [address], [address], [place], [address], 4 20:39:22 folate, serum 2023 024 MARYAM [facility], [address], [address], [place], [address], 4 20:39:27 vitamin E, serum 2023 024 MARYAM [facility], [address], [address], [place], [address], 4 20:39:26 vitamin A (retinol), serum 2023 024 MARYAM [facility], [address], [address], [place], [address], 4 20:39:28 TSH + free T4, serum 2023 024 MARYAM [facility], [address], [address], [place], [address], 4 20:39:23 methylmalon ate, QN, serum or plasma 2023 024 MARYAM [facility], [address], [address], [place], [address], 4 20:39:30 Referral None recorded. Procedures chemodenerv ation of muscle(s); muscle(s) innervated by facial, trigeminal, cervical spinal and accessory nerves, bilateral (PROC) - 61729, Botox injections for migraines - 155 units 2023 024 [email or web address] Not available 5 11:34:23 Surgeries esophagogas troduodenos copy (SURG) 2023 024 [email or web address] Mia Landaverde MD, [address], [address], [place], [address], 4 11:36:46 Imaging RF, upper gastrointes tinal tract + small bowel, w/ contrast PO 2023 024 [facility] ([facility] Scheduling), [address], [place], [address], 4 13:11:31 Medication Orders Botox 200 unit injection 2023 024 [email or web address] Not available 4 10:31:07 Botox 200 unit injection 2023 024 [email or web address] Not available 4 10:09:04 Botox 200 unit injection 2023 024 [email or web address] Not available 4 11:28:34 thiamine HCl (vitamin B1) 100 mg/mL injection solution 2023 024 [email or web address] Not available 4 10:37:12 cyanocobala min (vit B-12) 1,000 mcg/mL injection solution 2023 024 [email or web address] Not available 4 10:35:04 Patient TargetsNo targets recorded. Patient Instructions Encounter Date Encounter Id Patient Instructions Last Modified By Organization Details Last Modified Time 06/23/2024 [id number] I have discussed in great detail our [...] __ __ __ __ __ _ JACQUI: [id number] I have reviewed patient's JACQUI report prior to prescribing Schedule II, III, and IV medications that require review by law. [email or web address] Not available 06/23/2024 17:53:22 Reason for Referral None Reported. Results Created Date Observation Date Name Description Value Unit Range Abnormal Flag Note LastModifiedBy Organization Detail LastModifiedTime 08/25/19 24 08/26/2023 FE+TI BC+FE R iron bind.cap.(TI BC) 340 ug/dL 250-45 0 Not Available [facility] ([facility]) [address] [place], [address], 08/31/2023 20:39:22 08/25/19 24 08/26/2023 FE+TI BC+FE R UIBC 323 ug/dL 131-42 5 Not Available [facility] ([facility]) [address] [place], [address], 08/31/2023 20:39:22 08/25/19 24 08/26/2023 FE+TI BC+FE R iron 17 ug/dL 27-159 below low normal Not Available [facility] ([facility]) [address] [place], [address], 08/31/2023 20:39:22 08/25/19 24 08/26/2023 FE+TI BC+FE R iron saturation 5 % 15-55 alert low Not Available [facility] ([facility]) [address] [place], [address], 08/31/2023 20:39:22 08/25/19 24 08/26/2023 FE+TI BC+FE R ferritin 19 NG/mL 15-150 Not Available [facility] ([facility]) [address] [place], [address], 08/31/2023 20:39:22 08/25/19 24 08/26/2023 TSH+F REE T4 TSH 1.120 uIU/m L 0.450- 4.500 Not Available [facility] ([facility]) [address] [facility], [place], [address], 08/31/2023 20:39:23 08/25/19 24 08/26/2023 TSH+F REE T4 T4,free(dire ct) 1.10 NG/dL 0.82-1 .77 Not Available [facility] ([facility]) [address] [place], [address], 08/31/2023 20:39:23 08/25/19 24 08/26/2023 CBC WITH DIFFE RENTI AL/PL ATELE T WBC 7.8 x10e3 /uL 3.4-10 .8 Not Available [facility] ([facility]) [address] [place], [address], 08/31/2023 20:39:24 08/25/19 24 08/26/2023 CBC WITH DIFFE RENTI AL/PL ATELE T RBC 4.40 x10e6 /uL 3.77-5 .28 Not Available [facility] ([facility]) [address] [place], [address], 08/31/2023 20:39:24 08/25/19 24 08/26/2023 CBC WITH DIFFE RENTI AL/PL ATELE T hemoglobin 10.6 g/dL 11.1-1 5.9 below low normal Not Available [facility] ([facility]) [address] [facility], [place], [address], 08/31/2023 20:39:24 08/25/19 24 08/26/2023 CBC WITH DIFFE RENTI AL/PL ATELE T hematocrit 34.5 % 34.0-4 6.6 Not Available [facility] ([facility]) [address] [facility], [place], [address], 08/31/2023 20:39:24 08/25/19 24 08/26/2023 CBC WITH DIFFE RENTI AL/PL ATELE T MCV 78 fL 79-97 below low normal Not Available [facility] ([facility]) [address] [facility], [place], [address], 08/31/2023 20:39:24 08/25/19 24 08/26/2023 CBC WITH DIFFE RENTI AL/PL ATELE T MCH 24.1 pg 26.6-3 3.0 below low normal Not Available [facility] ([facility]) [address] [place], [address], 08/31/2023 20:39:24 08/25/19 24 08/26/2023 CBC WITH DIFFE RENTI AL/PL ATELE T MCHC 30.7 g/dL 31.5-3 5.7 below low normal Not Available [facility] ([facility]) [address] [place], [address], 08/31/2023 20:39:24 08/25/19 24 08/26/2023 CBC WITH DIFFE RENTI AL/PL ATELE T RDW 16.1 % 11.7-1 5.4 above high normal Not Available [facility] ([facility]) [address] [place], [address], 08/31/2023 20:39:24 08/25/19 24 08/26/2023 CBC WITH DIFFE RENTI AL/PL ATELE T platelets 263 x10e3 /uL 150-45 0 Not Available [facility] ([facility]) [address] [facility], [place], [address], 08/31/2023 20:39:24 08/25/19 24 08/26/2023 CBC WITH DIFFE RENTI AL/PL ATELE T neutrophils 48 % not estab. Not Available [facility] ([facility]) [address] [facility], [place], [address], 08/31/2023 20:39:24 08/25/19 24 08/26/2023 CBC WITH DIFFE RENTI AL/PL ATELE T lymphs 30 % not estab. Not Available [facility] ([facility]) [address] [facility], [place], [address], 08/31/2023 20:39:24 08/25/19 24 08/26/2023 CBC WITH DIFFE RENTI AL/PL ATELE T monocytes 7 % not estab. Not Available [facility] ([facility]) [address] [facility], [place], [address], 08/31/2023 20:39:24 08/25/19 24 08/26/2023 CBC WITH DIFFE RENTI AL/PL ATELE T eos 14 % not estab. Not Available [facility] ([facility]) [address] [facility], [place], [address], 08/31/2023 20:39:24 08/25/19 24 08/26/2023 CBC WITH DIFFE RENTI AL/PL ATELE T basos 1 % not estab. Not Available [facility] ([facility]) [address] [facility], [place], [address], 08/31/2023 20:39:24 08/25/19 24 08/26/2023 CBC WITH DIFFE RENTI AL/PL ATELE T immature cells SENIOR GIS ANALYST Not Available [facility] ([facility]) [address] [facility], [place], [address], 08/31/2023 20:39:24 08/25/19 24 08/26/2023 CBC WITH DIFFE RENTI AL/PL ATELE T neutrophils (absolute) 3.9 x10e3 /uL 1.4-7. 0 Not Available [facility] ([facility]) [address] [facility], [place], [address], 08/31/2023 20:39:24 08/25/19 24 08/26/2023 CBC WITH DIFFE RENTI AL/PL ATELE T lymphs (absolute) 2.3 x10e3 /uL 0.7-3. 1 Not Available [facility] ([facility]) [address] [facility], [place], [address], 08/31/2023 20:39:24 08/25/19 24 08/26/2023 CBC WITH DIFFE RENTI AL/PL ATELE T monocytes(ab solute) 0.5 x10e3 /uL 0.1-0. 9 Not Available [facility] ([facility]) [address] [facility], [place], [address], 08/31/2023 20:39:24 08/25/19 24 08/26/2023 CBC WITH DIFFE RENTI AL/PL ATELE T eos (absolute) 1.1 x10e3 /uL 0.0-0. 4 above high normal Not Available [facility] ([facility]) [address] [facility], [place], [address], 08/31/2023 20:39:24 08/25/19 24 08/26/2023 CBC WITH DIFFE RENTI AL/PL ATELE T baso (absolute) 0.1 x10e3 /uL 0.0-0. 2 Not Available [facility] ([facility]) [address] [place], [address], 08/31/2023 20:39:24 08/25/19 24 08/26/2023 CBC WITH DIFFE RENTI AL/PL ATELE T immature granulocytes 0 % not estab. Not Available [facility] ([facility]) [address] [facility], [place], [address], 08/31/2023 20:39:24 08/25/19 24 08/26/2023 CBC WITH DIFFE RENTI AL/PL ATELE T immature grans (abs) 0.0 x10e3 /uL 0.0-0. 1 Not Available [facility] ([facility]) [address] [facility], [place], [address], 08/31/2023 20:39:24 08/25/19 24 08/26/2023 CBC WITH DIFFE RENTI AL/PL ATELE T NRBC SENIOR GIS ANALYST Not Available [facility] ([facility]) [address] [facility], [place], [address], 08/31/2023 20:39:24 08/25/19 24 08/26/2023 CBC WITH DIFFE RENTI AL/PL ATELE T hematology comments: SENIOR GIS ANALYST Not Available [facility] ([facility]) [address] [facility], [place], [address], 08/31/2023 20:39:24 08/25/19 24 08/26/2023 COMP. METAB OLIC PANEL (14) glucose 109 mg/dL 70-99 above high normal Not Available [facility] ([facility]) [address] [facility], [place], [address], 08/31/2023 20:39:25 08/25/19 24 08/26/2023 COMP. METAB OLIC PANEL (14) BUN 10 mg/dL 6-20 Not Available [facility] ([facility]) [address] [facility], [place], [address], 08/31/2023 20:39:25 08/25/19 24 08/26/2023 COMP. METAB OLIC PANEL (14) creatinine 0.92 mg/dL 0.57-1 .00 Not Available [facility] ([facility]) [address] [facility], [place], [address], 08/31/2023 20:39:25 08/25/19 24 08/26/2023 COMP. METAB OLIC PANEL (14) eGFR 81 mL/mi n/1.7 3 >59 Not Available [facility] ([facility]) [address] [facility], [place], [address], 08/31/2023 20:39:25 08/25/19 24 08/26/2023 COMP. METAB OLIC PANEL (14) BUN/creatini ne ratio 11 9-23 Not Available [facility] ([facility]) [address] [facility], [place], [address], 08/31/2023 20:39:25 08/25/19 24 08/26/2023 COMP. METAB OLIC PANEL (14) sodium 144 mmol/ L 134-14 4 Not Available [facility] ([facility]) [address] [facility], [place], [address], 08/31/2023 20:39:25 08/25/19 24 08/26/2023 COMP. METAB OLIC PANEL (14) potassium 4.2 mmol/ L 3.5-5. 2 Not Available [facility] ([facility]) [address] [facility], [place], [address], 08/31/2023 20:39:25 08/25/19 24 08/26/2023 COMP. METAB OLIC PANEL (14) chloride 103 mmol/ L 96-106 Not Available [facility] ([facility]) [address] [facility], [place], [address], 08/31/2023 20:39:25 08/25/19 24 08/26/2023 COMP. METAB OLIC PANEL (14) carbon dioxide, total 22 mmol/ L 20-29 Not Available [facility] ([facility]) [address] [facility], [place], [address], 08/31/2023 20:39:25 08/25/19 24 08/26/2023 COMP. METAB OLIC PANEL (14) calcium 9.1 mg/dL 8.7-10 .2 Not Available [facility] ([facility]) [address] [place], [address], 08/31/2023 20:39:25 08/25/19 24 08/26/2023 COMP. METAB OLIC PANEL (14) protein, total 7.1 g/dL 6.0-8. 5 Not Available [facility] ([facility]) [address] [facility], [place], [address], 08/31/2023 20:39:25 08/25/19 24 08/26/2023 COMP. METAB OLIC PANEL (14) albumin 4.3 g/dL 3.9-4. 9 Not Available [facility] ([facility]) [address] [facility], [place], [address], 08/31/2023 20:39:25 08/25/19 24 08/26/2023 COMP. METAB OLIC PANEL (14) globulin, total 2.8 g/dL 1.5-4. 5 Not Available [facility] ([facility]) [address] [place], [address], 08/31/2023 20:39:25 08/25/19 24 08/26/2023 COMP. METAB OLIC PANEL (14) A/G ratio 1.5 1.2-2. 2 Not Available [facility] ([facility]) [address] [place], [address], 08/31/2023 20:39:25 08/25/19 24 08/26/2023 COMP. METAB OLIC PANEL (14) bilirubin, total 0.2 mg/dL 0.0-1. 2 Not Available [facility] ([facility]) [address] [place], [address], 08/31/2023 20:39:25 08/25/19 24 08/26/2023 COMP. METAB OLIC PANEL (14) alkaline phosphatase 116 IU/L 44-121 Not Available [facility] ([facility]) [address] [place], [address], 08/31/2023 20:39:25 08/25/19 24 08/26/2023 COMP. METAB OLIC PANEL (14) AST (SGOT) 22 IU/L 0-40 Not Available [facility] ([facility]) [address] [place], [address], 08/31/2023 20:39:25 08/25/19 24 08/26/2023 COMP. METAB OLIC PANEL (14) ALT (SGPT) 12 IU/L 0-32 Not Available [facility] ([facility]) [address] [place], [address], 08/31/2023 20:39:25 08/25/19 24 08/30/2023 VITAM IN E vitamin E(alpha tocopherol) 8.0 mg/L 5.9-19 .4 Not Available [facility] ([facility]) [address] [facility], [place], [address], 08/31/2023 20:39:26 08/25/19 24 08/30/2023 VITAM IN [...] in E defic ient. Not Available [facility] ([facility]) [address] [place], [address], 08/31/2023 20:39:26 08/25/19 24 08/26/2023 FOLAT E (FOLI C ACID) , SERUM folate (folic acid), serum 13.0 NG/mL >3.0 A serum folat e francia ntrat ion of less than 3.1 ng/mL is consi dered to repre sent clini omar defic iency . Not Available [facility] ([facility]) [address] [facility], [place], [address], 08/31/2023 20:39:27 08/25/19 24 08/30/2023 VITAM IN [...] Drug Admin istra tion. Not Available [facility] ([facility]) [address] [facility], [place], [address], 08/31/2023 20:39:28 08/25/19 24 08/26/2023 VITAM IN [...] Ada vieira [place]: The [facility] . 2. Luis Carlos xiao MF, Binraffaele ey [place], Belkis off-F errar i NEVAREZ, et al. Evalu ation , treat ment, and preve ntion of vitam in D defic iency : an Endoc rine Socie ty clini omar pract ice guide line. JCEM. 2010; 96(7) :1911 -30. Not Available [facility] ([facility]) [address] [facility], [place], [address], 08/31/2023 20:39:28 08/25/19 24 08/29/2023 VITAM IN B1 (THIA MINE) , BLOOD vit. B1, whole blood 104.3 nmol/ L 66.5-2 00.0 Not Available [facility] ([facility]) [address] [place], [address], 08/31/2023 20:39:29 08/25/19 24 08/31/2023 METHY LMALO YVETTE ACID, SERUM methylmaloni c acid, serum 327 nmol/ L 0-378 Not Available [facility] ([facility]) [address] [facility], [place], [address], 08/31/2023 20:39:30 08/25/19 24 08/27/2023 COPPE R, SERUM OR PLASM A copper, serum or plasma 146 ug/dL 80-158 Detec tion Limit = 5 Not Available [facility] ([facility]) [address] [place], [address], 08/31/2023 20:39:31 08/25/19 24 08/27/2023 ZINC, PLASM A OR SERUM zinc, plasma or serum 73 ug/dL 44-115 Detec tion Limit = 5 Not Available [facility] ([facility]) [address] [facility], [place], [address], 08/31/2023 20:39:32 08/25/19 24 08/26/2023 PREAL BUMIN prealbumin 12 mg/dL 14-35 below low normal Not Available [facility] ([facility]) [address] [facility], [place], [address], 08/31/2023 20:39:32 08/25/19 24 08/28/2023 SELEN IUM, BLOOD selenium, blood 161 ug/L 100-34 0 Detec tion Limit = 10 Not Available [facility] ([facility]) [address] [facility], [place], [address], 08/31/2023 20:39:33 Result Notes None recorded. Problems Name Problem SNOMED Code Status Onset Date Resolution Date Notes Provider Name and Address Organization Details Recorded Time Anxiety 33067753 Active 2023 Carline Beardswort h null, [place] [facility] [place] & [place] 4 14:56:25 Irritable bowel syndrome 52731369 Active 2023 Virginia Beardswort h null, [place] [facility] [place] 14:56:37 Malignant neoplastic disease 253199566 Active 2023 Virginia Beardswort h [place] [facility] [place] 14:56:45 Fibromyalg ia 584304959 Active 2023 Virginia Beardswort h [place] [facility] [place] & [place] 4 14:57:44 Migraine 51409958 Active 2023 Virginia Beardswort h [place] [facility] [place] 14:57:51 Hyperlipid emia 77809305 Active 2023 Virginia Beardswort h [place] [facility] [place] 4 14:57:57 Depressive disorder 94186498 Active 2023 Virginia Beardswort h [place] [facility] [place] 4 14:58:03 Sleep apnea 88296527 Active 2023 Virginia Beardswort h [place] [facility] [place] 4 14:58:21 Arthritis 8121375 Active 2023 Virginia Beardswort h [place] [facility] [place] 4 14:58:26 Osteoporos is 94136929 Active 2023 Virginia Beardswort h [place] [facility] [place] 4 14:58:35 Gastroesop hageal reflux disease 663383788 Active 2023 Virginia Beardswort h [place] [facility] [place] 4 14:58:40 Chronic migraine without aura 9275702014532 05 Active 2023 Milli Walkerkins [place] [facility] [place] 4 17:49:42 Episodic migraine 2533008039536 06 Active 2023 Milil Cornejo null, [place] [facility] [place] 4 17:49:50 Headache 56663780 Active 2023 Milli Cornejo null, [place] [facility] [place] & [place] 4 17:49:57 Chronic intractabl e migraine without aura 2924916801921 05 Active 2021 Vivi Velez, DO [address] [facility], [place], [address] , [place] [facility] - [place] & [place] 2 10:20:51 History of bypass of stomach 149885519 Active 2022 GIA Wright [address] , [place], [address] , [place] [facility] [place] & [place] 3 13:58:14 Iron deficiency 77249192 Active 2022 GIA Wright [address], [place], [address] , [place] [facility] [place] & [place] 3 13:58:16 Vitamin D deficiency 47460465 Active 2022 GIA Wright [address], [place], [address] , [place] [facility] [place] & [place] 3 13:58:17 Gastrointe stinal hemorrhage 50151071 Active Breerobyn Bautista null, [place] [facility] & [place] 4 10:30:39 Problem Notes None recorded. Procedures Surgical History Date Name Laterality Status Provider Name and Address Organization Details Recorded Time 2023 ESOPHAGOGASTRODUODENOSCOPY (SURG) completed Kelli Gray [place] - [facility] - [place] & [place] 4 11:31:36 2020 repair of tendo achilles completed Bree Dalla [place] - [facility] [place] & [place] 2 16:28:15 2020 Gastric Bypass completed Bree Dalla [place] - [facility] [place] & [place] 2 16:27:48 2018 ankle reconstruction completed Bree Dalla [place] - [facility] [place] & [place] 2 16:27:01 2015 Lumbar Spine Surgery completed Bree Dalla [place] - [facility] [place] & [place] 2 16:21:33 EGD completed Jan Maldonado-Sindhu lashon [place] - [facility] - [place] & [place] 3 10:36:17 Total hysterectomy completed Bree Dalla [place] - [facility] - [place] & [place] 2 16:20:22 partial fasciectomy of plantar fascia completed Bree Dalla [place] - [facility] [place] & [place] 2 16:20:47 Knee Surgery completed Bree Dalla [place] - [facility] [place] & [place] 2 16:21:04 exploratory laparotomy completed Earlene Allena [place] - [facility] [place] & [place] 2 16:21:59 Transfusion bld/bld compnt completed Bree Dalla [place] [facility] [place] & [place] 2 16:26:38 Cholecystectomy completed Bree Dalla [place] - [facility] [place] & [place] 2 10:18:00 Imaging Results None recorded. Procedure Notes None recorded. Medical Equipment None Reported. Allergies Allergen ID Allergen Name Allergen Category Reaction Reaction Severity Criticality Documentation Date Start Date Code Code System Note Provider Name and Address Organization Details Recorded Time 854769 Non-stero idal anti-infl ammatory agent (product) medicatio n Not available Not available Not available 02/26/2024 01529 005 SNOMED Other react ions and sever ities : 'Adve rse react ion to subst ance' . Bree mcelroy, ANDRE[place] - [facility] - [place] & [place] 4 10:32:00 545018 hydromorp eladio medicatio n rash severe Not available 02/26/2024 3423 RxNorm Bree mcelroy, ANDREY - [facility] - [place] & [place] 4 10:32:00 672404 ketorolac medicatio n rash Not available Not available 02/26/2024 67179 RxNorm Bree mcelroy, ANDREY - [facility] - [place] & [place] 4 10:32:00 321904 Milk (substan e) food,medi cation Not available Not available Not available 06/23/2024 27720 002 SNOMED Carline mcelroy, [place] - [facility] & [place] 4 14:55:40 Medications Name Sig Start Date [...] Updated DateTime 4 175.26 cm 25.7 kg/m2 89917.0 7 g 90 /min 98.3 [degF] 110 mm[Hg] 70 mm[Hg] Abby Zhang BALDERAS - [place] - [place] & [place] 4 14:45:58 Date Recorded Body height Body mass index (BMI) Body weight Heart rate Systolic blood pressure Diastolic blood pressure Provider Name and Address Organization Details Last Updated DateTime 4 175.26 cm 26.2 kg/m2 23980.5 7 g 80 /min 107 mm[Hg] 79 mm[Hg] [facility] & [place] 4 11:29:00 Date Recorded Body height Body mass index (BMI) Body weight Heart rate Systolic blood pressure Diastolic blood pressure Provider Name and Address Organization Details Last Updated DateTime 4 175.26 cm 24.6 kg/m2 04561.1 3 g 81 /min 122 mm[Hg] 80 mm[Hg] Bree BALDERAS [facility] & [place] 4 10:10:48 Date Recorded Body height Body mass index (BMI) Body weight Heart rate Systolic blood pressure Diastolic blood pressure Provider Name and Address Organization Details Last Updated DateTime 4 175.26 cm 20.7 kg/m2 56100.9 3 g 75 /min 110 mm[Hg] 68 mm[Hg] Bree BALDERAS [facility] & [place] 4 10:38:55 Date Recorded Body height Body mass index (BMI) Body weight Body temperature Oxygen saturation Oxygen saturation in Arterial blood by Pulse oximetry Heart rate Systolic blood pressure Diastolic blood pressure Provider Name and Address Organization Details Last Updated DateTime 4 175.26 cm 19.9 kg/m2 58687.9 7 g 97.1 [degF] 99 % 99 % 83 /min 121 mm[Hg] 80 mm[Hg] [facility] & [place] 4 14:54:56 Social History Question Answer Notes LastModified by Organizat ion Details LastModified Time Tobacco Smoking Status Former Smoker no tobacco use x 7yr, currently daily mariuana use GIA Wright [address] , [place], [address], [facility] & [place] 09/10/2022 13:43:16 Do You Have An Advance Directive? No Information not available 08/29/2022 Are You Blind Or Do You Have Difficulty Seeing? No Information not available 08/29/2022 What Is Your Level Of Caffeine Consumption? Occasional Information not available 08/29/2022 What Was The Date Of Your Most Recent Tobacco Screening? 05/22/2022 Information not available 08/29/2022 Do You Have Any Pets? Yes Information not available 08/29/2022 What Is Your Relationship Status? Single Engaged Information not available 11/27/2023 Are You Sexually Active? Yes Information not available 11/27/2023 Are You Passively Exposed To Smoke? Yes Information not available 08/29/2022 Are You Currently In School? No Some College Information not available 11/27/2023 Sex: Unknown Functional Status Question Answer Note LastModified by Organizat ion Details LastModified Time Do you use any illicit or recreational drugs? No Information not available 05/19/2022 What is your level of alcohol consumption? None Information not available 05/19/2022 Are you currently employed? No disabled Information not available 08/29/2022 Do you have transportation difficulties? No Information not available 08/29/2022 Are you able to care for yourself? Yes lives in house with parents Information not available 08/29/2022 What is your exercise level? Occasional Information not available 08/29/2022 Mental Status Question Answer Note LastModified by Organization D etails LastModified Time Do you feel stressed (tense, restless, nervous, or anxious, or unable to sleep at night)? [id number] Information not available 08/29/2022 Family History Relationship Description Onset Age of this Age Resolved Age Notes LastModified by Organization Details LastModified Time Mother Malignant tumor of breast [id number] Not available 02/2022 08:21:12 Mother Allergy pt. added direct ly (05/22) [email or web address] Not available 05/22/2022 12:36:00 Father Malignant tumor of kidney [id number] Not available 02/2022 08:21:12 Father Disorder of [...] Recorded Time influenza, unspecified formulation 06/03/2023 completed ANDREY Burton [facility] & [place] 08/25/2023 14:44:46 Past Encounters Encounter ID Performer Location Encounter Start Date Encounter Closed Date Diagnosis/Indication Diagnosis SNOMED-CT Code Diagnosis ICD10 Code Diagnosis Note [id number] Vivi DO Agustin [facility] Neurology [address] [facility],[address] [place] [address] 05/20/2022 10:08:09 05/20/2022 10:40:41 Chronic intractable migraine without aura [id number] 62845 G43.719 She has done very well on the combinatio n of botox and ajovy but due to insurance change can no longer stay on this dual therapies. She will discontinu e the ajovy and I will have the office seek a new approval to continue with her botox treatments .In the meantime she is asked to keep a headache log. [id number] [facility] [address] [facility],[address] [place] [address] 05/23/2022 08:19:26 05/23/2022 08:47:35 Chronic intractable migraine without aura 2422812789 19520 G43.719 [id number] [facility] [address] [facility] [address] [facility],[address] [place] [address] 08/29/2022 08:21:08 08/29/2022 08:56:01 Chronic intractable migraine without aura [id number] 66398 G43.719 [id number] GIA Wright [facility] [address] [place] [address] 09/10/2022 13:07:45 09/10/2022 14:53:51 Gastrojejunal ulcer 69842878 K28.[address] Fitz Velez [...] c ulcer. History of bypass of stomach 803659646 Z98.84 Long discussion today regarding need for routine follow-up and vitamin checks. patient voices understand ing of needed routine follow-up and agrees to be compliant with this. We are checking full bariatric panel today. Iron deficiency 80866940 E61.1 Vitamin D deficiency 347 82413 E55.9 History of gastrectomy 466064880 Z90.3 Patient is status post bariatric surgery and at increased risk for vitamin deficienci es and malnutriti on. Bariatric vitamin panel ordered today. Patient will be contacted to correct any vitamin deficienci es. [id number] DO SHANNA Diehl [facility] Neurology [address] [place] [address] 11/28/2022 08:14:33 11/28/2022 08:55:55 Chronic intractable migraine without aura 0155085196 41467 G43.719 Chronic condition that is stable. She is given Ajovy samples today. [id number] DO SHANNA Diehl [facility] Neurology [address] [facility],[address] [place] [address] 02/27/2023 11:05:14 02/27/2023 11:33:40 Chronic intractable migraine without aura 9630699284 51232 G43.719 [id number] Vivi Velez DO [facility] Neurology [address] [facility],[address] [place] [address] 05/29/2023 11:13:34 05/29/2023 11:43:52 Chronic intractable migraine without aura [id number] 24773 G43.719 [id number] GIA Wright [facility]ariat[facility] Adv [facility] [address] [place] [address] 08/25/2023 14:29:17 08/25/2023 15:27:36 Vomiting 928281699 R11.10 Discussed previous endoscopy September 2022 showing [...] GI have been resulted. Nutritiona lly compromised 978691649 E63.9 Discussed need for increased nutritiona l intake. Advised patient attempt p.o. stage I/2 as tolerated with focus on 70 g of protein and a 1000 calories. We will have dietitian meet with patient today for additional dietary support. History of gastrectomy 182728361 Z90.3 Patient is status post bariatric surgery and at increased risk for vitamin deficienci es and malnutriti on. Bariatric vitamin panel ordered today. Patient will be contacted to correct any vitamin deficienci es. Vitamin D deficiency 347 80915 E55.9 Marijuana user [id number] F12.90 [id number] RUSSELL BREWSTER BS, RDN, LD [facility] [address] [place] [address] 08/25/2023 15:31:07 08/25/2023 16:02:52 History of bypass of stomach 536971795 Z98.84 EGD ordered today, hx of jejunal anastomoti c ulcer [id number] DO SHANNA Diehl [facility] [address] [facility],[address] [place] [address] 08/28/2023 11:21:49 08/28/2023 11:48:46 Chronic intractable migraine without aura 6218270540 64676 G43.438 [id number] Vivi Velez DO [facility] Neurology [address] [facility],[address] [place] [address] 11/27/2023 10:00:13 11/27/2023 10:35:46 Chronic intractable migraine without aura 5950921652 65075 G43.719 She is given a sample of Ajovy todayAjovy quantity: 1, Lot #: [id number], Exp: 06/17/2025 [id number] Vivi Velez DO [facility] Neurology [address] [facility],[address] [place] [address] 02/26/2024 10:25:30 02/26/2024 11:08:39 Chronic intractable migraine without aura 0045744328 60927 G43.719 She is given a sample of Ajovy todayAjovy quantity: 2, Lot #: [id number] , Exp: 12/2025 [id number] Ajit Grande MD [facility] [address] [place] [address] 06/23/2024 14:31:23 06/23/2024 14:58:43 Chronic migraine without aura 8890207912 22795 G43.709 - It appears that the intensity [...] patient for Botox injections . Episodic migraine 039586 0577 84656 G43.C1 Headache 06225067 R51.9 Health Concerns Section Related Observation LastModified by Organization Detai ls LastModified Time None Recorded Concern Status LastModified by Organization Details LastModified Time None Recorded Advance Directives Directive N: Payers Insurance Date Sequence Insurance Name Policy Number Policy Vaughn Covered Member ID Vaughn Member ID Guarantor Name 05/15/2022 1 [employer] ( - PPO) Denilson Macias [id number] Alexei Macias 06/23/2024 1 FOR LIFE () Sandi Macias [id number] Alexei Macias 07/22/2024 1 [employer] [place] ( - PPO) Denilson Macias [id number] Alexei Macias 07/19/2024 2 [facility] (MEDICAID HMO) Alexei Macias [id number] Alexei Macias 05/20/2022 3 [employer] - [employer] () Denilson Macias [id number] Alexei Macias 06/25/2022 1 UNSPECIFIED REMIT PAYOR Alexei Macias 06/23/2024 1 [employer] - [employer] () Alexei Macias [id number] Alexei Macias 06/10/2023 1 [employer] LIFE ( - MEDICARE SUPPLEMENT) Denilson Macias [id number] Alexei Macias 03/16/2024 1 UNSPECIFIED REMIT PAYOR Alexei Macias 07/09/2020 SLIDING FEE SCHEDULE - DISCOUNT Alexei Macias 07/09/2020 SLIDING FEE SCHEDULE - DISCOUNT Alexei Macias 10/03/2021 1 [facility] () Denilson Macias [id number] Alexei Macias 06/23/2024 1 [employer] LIFE () Alexei Macias [id number] Alexei Macias Notes Date Note Type Note [...] Last labs approximately 2 weeks ago at [facility]. Past history: March 06 upper GI normal. [...] office since GIA Wright [address], [place], [address], [facility] & [place] 08/25/2023 15:42:54 08/25/2023 text/html RDN met w/ Alexei Macias who is s/p RNY (surgery date 2020) following their office visit regarding concern for recurring anastomotic ulcer. RDN reviewed diet stages 1 and 2 and advised ways to manage nausea. Pt expressed concerns that she is anorexic and also disclosed some concerns with memory issues. RDN scheduled pt to see psych in [facility] on Thursday to address these concerns. We [...] water RUSSELL BREWSTER BS, RDN, LD [address], [place], [address], [place] [facility] - [place] & [place] 08/25/2023 16:37:41 08/28/2023 text/html Vikash comes in [...] a migraine today. Vivi Velez, DO [address] [facility], [place], [address], [place] [facility] - [place] & [place] 08/28/2023 11:53:09 11/27/2023 text/html Vikash comes in [...] today. Vivi Velez, DO [address], [place], [address], [facility] - [place] & [place] 11/27/2023 10:28:31 02/26/2024 text/html Alexei comes in [...] a migraine today. Vivi Velez, DO [address] [facility], [place], [address], [facility] [place] - [place] & [place] 02/26/2024 12:14:39 06/23/2024 text/html Ms. Macias was [...] Surgery: none Imaging/Studies: none Ajit Grande MD [address] [facility], [place], [address], [facility] & [place] 06/24/2024 09:49:17 OBGyn Episode No OBEpisode recorded.
--- NOTE | 2025-01-13 16:30 | MM_ITS ---
PROCEDURE INFORMATION: Exam: MG Bilateral Screening 3D Mammography Exam date and time: 01/13/2025 4:29 PM Age: 39 years old Clinical indication: Screening. Her mother breast cancer in her 20s, maternal aunt had breast cancer in her 40s, and maternal grandmother had in her 30s. TECHNIQUE: Imaging protocol: Bilateral Screening tomosynthesis and 2D mammography including computer-aided detection (CAD) when performed. COMPARISON: 1. MG MM DIG SCREENING MAMM BI W/CAD 09/10/2022 4:03 PM 2. MG MM DIG SCREENING MAMM BI W/CAD 08/12/2021 4:47 PM 3. MG MM DIG SCREENING MAMM BI W/CAD 08/06/2020 3:24 PM 4. MG MM DIG SCREENING MAMM BI W/CAD 08/03/2019 4:10 PM FINDINGS: MAMMOGRAPHY: Breast composition: The breasts are almost entirely fatty. Mass: None. Architectural distortion: None. Calcifications: No suspicious calcifications. Asymmetric density: None. Skin thickening: None. Axillary adenopathy: None. IMPRESSION: No mammographic evidence of malignancy. Annual screening is recommended unless otherwise clinically indicated. Given the reported risk factors, a breast cancer risk assessment may prove useful for further evaluation. ASSESSMENT: BI-RADS Category 1: Negative.
== END 2025-01-13 23:59 | disposition home or self-care (01) ==
LOC: RAD 16:26
PROVIDERS: PCP Nurse Practitioner Family; Referring Provider Nurse Practitioner Obstetrics & Gynecology; Visit Provider Nurse Practitioner Obstetrics & Gynecology
DX: Z12.31 Encounter for screening mammogram for malignant neoplasm of breast (principal); R92.313 Mammographic fatty tissue density, bilateral breasts; Z80.3 Family history of malignant neoplasm of breast
CPT/HCPCS: 77063; 77067

== ENCOUNTER 2025-01-18 14:16 | Outpatient (CLI) | payer OTHER, SELFPAY ==
--- OUTSIDE RECORDS SUMMARY | 2025-01-18 14:17 | XMS_ITS | Continuity of Care Document ---
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 DoD [...] ion Darvocet A500 Drug allergy [facility] DARVOCET A500 (PROPOXYPHENE NAP/ACETAMINO PHEN) Drug allergy (disorder) Rash active 6 [facility] Dilaudid Drug allergy Rash Active [address] [place] [address] DILAUDID (HYDROMORPHON E HCL) Drug allergy (disorder) Rash active 6 [facility] HYDROmorphone Propensity to adverse reactions to substance Rash Active 6 Unknown Organizat ion ketorolac Propensity to adverse reactions to substance Rash Active 6 Unknown Organizat ion Toradol Drug allergy Rash [facility] McCho TORADOL (KETOROLAC TROMETHAMINE) Drug allergy (disorder) Rash active 6 [facility] Immunizations Combined list of available immunizations from the Department of Defense and Veterans Affairs facilities. Immunization Series Date Given Administered By Site Reaction Lot Number CVX Code Drug Intranet Developer Status Comments Source Tdap 2020 RADHA, () Not Given Tdap DoD Influenza, injectable, MDCK, preservative free, quadrivalent 2020 RADHA, () Not Given Influenza , injectabl e, MDCK, preservat elizabeth free, quadrival ent DoD pneumococcal polysaccharid e PPV23 2020 RADHA, () Not Given pneumococ omar polysacch aride PPV23 DoD COVID-19, mRNA, LNP-S, PF, 30 mcg/0.3 mL dose 2020 JENNIFER KIM, [employer] (PFR) Not Given COVID-19, mRNA, LNP-S, PF, 30 mcg/0.3 mL dose DoD COVID-19, mRNA, LNP-S, PF, 30 mcg/0.3 mL dose 2020 ABHISHEK [employer] (PFR) Not Given COVID-19, mRNA, LNP-S, [...] trivlanent, adjuvanted, pf 2015 zzLef t Arm [id number] [employer] complet ed Influenza , trivlanen t, adjuvante d, pf 07/09/16 Given Ambulat ory Pharmac y tetanus, diphtheria, acellular pertu is 2015 zzChandra Arm [id number] 115 [employer] complet ed tetanus, diphtheri a, acellular pertussis 07/09/16 Given Ambulat ory Pharmac y pneumococcal polysaccharid e, 23 valent 2015 zzLef t Arm [id number] [employer] complet ed pneumococ omar polysacch aride, 23 valent 07/09/16 Given Ambulat ory Pharmac y pneumococcal polysaccharid e vaccine, 23 valent 1 2015 FILIPE TRAMMELL [id number] Merck (MSD) compl et ed pneumococ omar polysacch aride vaccine, 23 valent DoD tetanus toxoid, reduced diphtheria toxoid, and acellular pertu is vaccine, adsorbed 1 2015 FILIPE TRAMMELL [id number] 115 Smithine (SKB) complet ed tetanus toxoid, reduced diphtheri a toxoid, and acellular pertussis vaccine, adsorbed DoD Influenza, seasonal, injectable, preservative free 1 2015 Unknown, Provider [id number] [employer] (SEQ) complet ed Influenza , seasonal, injectabl e, preservat elizabeth free DoD Seasonal trivalent influenza vaccine, adjuvanted, preservative free 1 2015 FILIPE TRAMMELL [id number] [employer] (SEQ) com plet ed Seasonal [...] Heart Rate Monitored 74 bpm 08/12/2017 07:34:[address] [place] [address] Heart Rate Monitored 96 bpm 08/12/2017 07:31:[address] [place] [address] Heart Rate Monitored 75 bpm 08/12/2017 05:58:[address] [place] [address] Respiratory Rate 16 br/min 09/01/2017 16:30:00 [facility] [place] Diastolic Blood Pressure 91 mm[Hg] 12/05/2017 03:33:[address] [place] [address] Harpreet Systolic Blood Pressure 123 mm[Hg] 12/05/2017 03:33:[address] [place], [place] [address]igan Peripheral Pulse Rate 92 bpm 12/05/2017 03:33:[address] [place] [address] Respiratory Rate 18 br/min 12/05/2017 03:33:[address] [place] [address] Harpreet Mean Arterial Pressure, Calc 88 mm[Hg] 12/02/2017 20:31:[address] [place] [address] Efrem phillips Temperature Tympanic 36.6 Berta 12/02/2017 20:31:00 [facility] Harpreet Systolic Blood Pressure 120 mm[Hg] 01/19/2018 18:01:[address] [place] [address] Harpreet Diastolic Blood Pressure 89 mm[Hg] 01/19/2018 18:01:00 [facility] Harpreet Respiratory Rate 18 br/min 01/19/2018 18:01:00 [facility] Harpreet Temperature Tympanic 36.5 Berta 01/19/2018 18:01:00 [facility] Harpreet Peripheral Pulse Rate 86 bpm 01/19/2018 18:01:00 [facility] Harpreet Mean Arterial Pressure, Calc 99 mm[Hg] 01/19/2018 18:01:00 012[facility] Efrem phillips Respiratory Rate 16 br/min 08/12/2017 09:18:00 [facility] Harpreet Heart Rate Monitored 91 bpm 08/12/2017 09:18:00 [facility] Harpreet Systolic Blood Pressure 133 mm[Hg] 02/03/2018 15:56:00 [facility] Harpreet Diastolic Blood Pressure 87 mm[Hg] 02/03/2018 15:56:00 [facility] Harpreet Mean Arterial Pressure, Calc 102 mm[Hg] 02/03/2018 15:56:00 012-[facility] Efrem phillips Peripheral Pulse Rate 107 bpm 02/03/2018 15:56:00 [facility] Harpreet Mean Arterial Pressure, Calc 91 mm[Hg] 09/30/2017 22:07:00 1480Harrieta n [place] Temperature Tympanic 36 Berta 09/30/2017 22:07:00 1480C-Harpreet [place] Temperature Tympanic 36.2 Berta 07/23/2017 17:47:00 Ambulatory Pharmacy Heart Rate Monitored 81 bpm 08/12/2017 08:18:00 [facility] Harpreet Respiratory Rate 16 br/min 08/12/2017 08:18:00 [facility] Harpreet Heart Rate Monitored 79 bpm 08/12/2017 07:19:00 [facility] Harpreet Heart Rate Monitored 79 bpm 08/12/2017 07:08:00 [facility] Harpreet Systolic Blood Pressure 108 mm[Hg] 12/09/2017 21:49:00 1485C-C [place] Diastolic Blood Pressure 76 mm[Hg] 12/09/2017 21:49:00 1485C-[facility] [place] Respiratory Rate 17 br/min 12/09/2017 21:49:00 1485[facility] [place] Temperature Tympanic 36.7 Berta 12/09/2017 21:49:00 1485C-[facility] [place] Mean Arterial Pressure, Calc 87 mm[Hg] 12/09/2017 21:49:00 148-[facility] Bk Kap[place] Peripheral Pulse Rate 100 bpm 12/09/2017 21:49:00 148-[facility] [place]ord Respiratory Rate 18 br/min 01/25/2018 20:32:00 [facility] Harpreet Temperature Tympanic 35.4 Berta 01/25/2018 20:32:00 012-[facility] Harpreet Peripheral Pulse Rate 95 bpm 01/25/2018 20:32:00 [facility] Harpreet Mean Arterial Pressure, Calc 96 mm[Hg] 01/25/2018 20:32:00 012-[facility] Efrem phillips Systolic Blood Pressure 137 mm[Hg] 01/25/2018 20:32:00 012-[facility] Harpreet Diastolic Blood Pressure 76 mm[Hg] 01/25/2018 20:32:00 012-[facility] Harpreet Systolic Blood Pressure 125 mm[Hg] 02/25/2018 17:27:00 012-[facility] Harpreet Diastolic Blood Pressure 85 mm[Hg] 02/25/2018 17:27:00 [facility] Harpreet Temperature Tympanic 36.2 Berta 02/25/2018 17:27:00 012-[facility] Harpreet Mean Arterial Pressure, Calc 98 mm[Hg] 02/25/2018 17:27:00 0125C-[facility] Efrem phillips Peripheral Pulse Rate 90 bpm 02/25/2018 17:27:00 0125C[facility] Harpreet Temperature Tympanic 36.2 Berta 12/16/2017 15:20:00 1480C-Harpreet [place] Mean Arterial Pressure, Calc 80 mm[Hg] 12/16/2017 15:20:00 1480C-Williana n [place] Systolic Blood Pressure 118 mm[Hg] 12/16/2017 15:20:00 1480C-Harpreet [place] Diastolic Blood Pressure 61 mm[Hg] 12/16/2017 15:20:00 1480C-Harpreet [place] Peripheral Pulse Rate 82 bpm 12/16/2017 15:20:00 1480C-Harpreet [place] Heart Rate Monitored 74 bpm 08/12/2017 06:19:00 012-[facility] Harpreet Diastolic Blood Pressure 94 mm[Hg] 12/05/2017 05:04:00 012-[facility] Harpreet Systolic Blood Pressure 141 mm[Hg] 12/05/2017 [...] ADM Date DC Date Status Disposition Source [facility](Can non_FHC_T eam B) TELE CONSULT [id number] Notes Entered by: SHAHRIAR SIERRA 06 Mar 2015 1329 ------- ------- ------- ------- -- NETWORK RESULT- -02/28 ARELI ZAMARRIPA 03/06 [facility] [employer] [employer] [facility](C annon_F HC_Team B) [facility] [employer] [facility] [employer](Can non_FHC_T eam B) OUTPATIENT [id number] F/U COLEEN WILLETT 03/28 Released w/o Limitations [employer] [employer] [employer] [facility] [employer](C annon_F HC_Team B) [facility] [employer] [facility]) OUTPATIENT [id number] Per [facility] JOSE MCINTYRE 04/03 Released w/o Limitations [facility] [employer] [employer] [facility]) [facility] [employer] [facility]) OUTPATIENT [id number] [facility] JOSE MCINTYRE 04/10 Released w/o Limitations [facility](B [facility]) [facility](Can non_FHC_T eam B) OUTPATIENT [id number] F/u per [facility] CLOEEN WILLETT 04/11 Released w/o Limitations [facility](C annon_F HC_Team B) [facility] [employer] [facility](Can non_OpMed _Team A) TELE CONSULT [id number] Notes Entered by: MERLY WILKERSON 16 Apr 2015 1518 ------- ------- ------- ------- -- MRI script COLEEN WILLETT 04/16 [facility](C annon_O pMed_Te am A) [facility] [employer] [facility] [employer](Can non_FHC_T eam B) OUTPATIENT [id number] F/u Medicat COLEEN Molina 04/25 Released w/o Limitations [facility](C annon_F HC_Team B) [facility] OUTPATIENT [id number] MARGARITA MAYSDorcas Marshall 04/25 Released w/o Limitations [facility]) [facility]) OUTPATIENT [id number] JOSE MAYS 04/26 Released w/o Limitations [facility]) th [facility](Can non_FHC_T eam B) TELE CONSULT [id number] Notes Entered by: SHAHRIAR SIERRA 30 Apr 2015 1024 ------- ------- ------- ------- -- NETWORK TANNER- R KNEE NORAAY-05/2015 COLEEN WILLETT 04/[facility](C rashidaF HC_Team B) [facility]) OUTPATIENT [id number] [facility] MARGARITA MCINTYREDorcas Marshall 04/30 Released w/o Limitations [facility]) [facility]) TELE CONSULT [id number] Notes Entered by: JOSE MCINTYRE 02 May 2015 0731 ------- ------- ------- ------- -- JOSE Jennings 05/[facility]) [facility](Can non_FHC_T eam B) TELE CONSULT [id number] Notes Entered by: ANISA MACHUCA 02 May 2015 0812 ------- ------- ------- ------- -- ANGUS STAPLES 05/02 Referred for Appointment [facility](C annbipinF HC_Team B) [facility](Can non_FHC_T eam B) TELE CONSULT [id number] Notes Entered by: HEATHER RUIZ 03 May 2015 1326 ------- ------- ------- ------- -- Network Results - Podiatr y - 04/2015 COLEEN WILLETT 05/[facility](C annon_F HC_Team B) [facility](Can non_[facility]_T ea B) TELE CONSULT [id number] Notes Entered by: LEATHA CARO 06 May 2015 1727 ------- ------- ------- ------- -- Network Results - MRI Brain - [id number] 8. COLEEN WILLETT 05/[facility](C annrhina_F HC_Team B) [facility](Can non_[facility] ea B) TELE CONSULT [id number] Notes Entered by: Dorcas ARZOLA 10 May 2015 1151 ------- ------- ------- ------- -- BILATER AL MAMMOGR AM. LEFT BREAST ULTRASO UND RESULTS LINDA OAKES 05/10 [facility](C annrhina_F HC_Team B) [facility]) TELE CONSULT [id number] Notes Entered by: JOSE MCINTYRE 10 May 2015 1900 ------- ------- ------- ------- -- [facility] JOSE MCINTYRE 05/11[facility]) [facility]) OUTPATIENT [id number] [facility] JOSE MCINTYRE 05/11 Admitted th [facility]) [facility]) OUTPATIENT [id number] Pt [facility]i ng [facility] CO[facility] WILLETT 06/06 Released w/o Limitations [facility](Tio lawson_F HC_Team B) [facility]) TELE CONSULT [id number] Notes Entered by: JOSE MCINTYRE 06 Jun 2015 1302 ------- ------- ------- ------- -- JOSE Jennings 06/[facility]) [facility](Can non_[facility]_T eam A) TELE CONSULT [id number] Notes Entered by: SAMANTHA WILLIS 11 Jun 2015 1109 ------- ------- ------- ------- -- Needle Stick AISHWARYA KLEIN 06/11[facility](Tio Mcnamara ed_Team A) [facility]) OUTPATIENT [id number] [facility] JOSE MCINTYRE 06/12 Released w/o Limitations [facility]) [facility]) OUTPATIENT [id number] PAP. 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 06/25 Released w/o Limitations [facility](G yn [facility]) 27 [facility](Can non_C_T eam B) TELE CONSULT [id number] Notes Entered by: ISHA RIZZO 26 Jun 2015 1322 ------- ------- ------- ------- -- 16 June 2015 [facility] ER GLENDY Grove 06/[facility](C lulu_F HC_Team B) [facility]) TELE CONSULT [id number] Notes Entered by: CHALINO MCGARRY 26 Jun 2015 1328 ------- ------- ------- ------- -- Care Coordin JOSE Hernandez 06/[facility](Can non_FHC_T eam B) TELE CONSULT [id number] Notes Entered by: NEETU PEREZ 02 Jul 2015 0913 ------- ------- ------- ------- -- LAB RESULTS AISHWARYA KLEIN 07/[facility](C annon_F HC_Team B) [facility](Can non_FHC_T eam B) OUTPATIENT [id number] URINATI NG BLOOD X2 DAYS COLEEN WILLETT 07/03 Released w/o Limitations th [facility](C annon_F HC_Team B) [facility](Opt ometry [facility]) OUTPATIENT [id number] routine -ss TERRELL WILLAMS 07/03 Released w/o Limitations th [facility](O ptometr y [facility]) [facility](Can non_FHC_T eam B) TELE CONSULT [id number] Notes Entered by: HEATHER RUIZ 06 Jul 2015 1022 ------- ------- ------- ------- -- Network Results - Mental Health - 06/2015 COLEEN WILLETT 07/[facility](C annon_F HC_Team B) th [facility]) OUTPATIENT [id number] [facility] JOSE MCINTYRE 07/10 Released w/o Limitations [facility]) th [facility](Can non_FHC_T eam B) TELE CONSULT [id number] Notes Entered by: MISA CASH 16 Jul 2015 1425 ------- ------- ------- ------- -- NETWORK RESULTS -ER- COLEEN WILLETT 07/[facility](C annon_F HC_Team B) th [facility](Can non_FHC_T eam B) OUTPATIENT [id number] Resched uled Thyroid blookwo rk COLEEN WILLETT 07/17 Released w/o Limitations th [facility](C annon_F HC_Team B) [facility] P) TELE CONSULT [id number] Notes Entered by: NATALIIA LIRA 17 Jul 2015 1524 ------- ------- ------- ------- -- [facility] Case Review SHAHEED BUCIO 07/[facility](E [facility]) th [facility](Can non_FHC_T eam B) TELE CONSULT [id number] Notes Entered by: NEETU PEREZ 18 Jul 2015 0746 ------- ------- ------- ------- -- BACK IS OUT GLENDY SILVA 07/18[facility](C annrhina_F HC_Team B) [facility](Can non_FHC_T eam B) TELE CONSULT [id number] Notes Entered by: MISA CASH 18 Jul 2015 1152 ------- ------- ------- ------- -- NETWORK RESULTS -DELPHINE Marshall-07/17 COLEEN WILLETT 07/[facility](C annon_F HC_Team B) [facility](Can non_FHC_T eam B) TELE CONSULT [id number] Notes Entered by: MISA CASH 18 Jul 2015 1625 ------- ------- ------- ------- -- NETWORK RESULTS -MRI L SPINE-1 09/18/14 COLEEN WILLETT 07/18 [facility](C annrhina_F HC_Team B) th [facility](Can non_FHC_T eam B) TELE CONSULT [id number] Notes Entered by: MISA CASH 20 Jul 2015 0943 ------- ------- ------- ------- -- NETWORK RESULTS -ER and ER (2)- COLEEN WILLETT 07/20 [facility](C annrhina_F HC_Team B) [facility](Can non_FHC_T eam B) TELE CONSULT [id number] Notes Entered by: THOMPSON 20 Jul 2015 1104 ------- ------- ------- ------- -- NETWORK RESULT- ER-JUL 01 COLEEN WILLETT 07/20 [facility](C annrhina_F HC_Team B) th [facility](Can non_FHC_T eam B) TELE CONSULT [id number] Notes Entered by: THOMPSON 20 Jul 2015 1117 ------- ------- ------- ------- -- NETWORK RESULT- ER(2)-2 JUL 01 COLEEN WILLETT 07/20 [facility](C annon_F HC_Team B) th [facility](Can non_FHC_T eam B) TELE CONSULT [id number] Notes Entered by: ANISA MACHUCA 24 Jul 2015 0925 ------- ------- ------- ------- -- GLENDY LOUIE 07/[facility](C annon_F HC_Team B) [facility](Can non_[facility]_T ea B) TELE CONSULT [id number] Notes Entered by: MISA CASH 24 Jul 2015 1005 ------- ------- ------- ------- -- NETWORK RESULTS -HOLTER MONITOR -08/31 COLEEN WILLETT 07/24 [facility](C annon_F HC_Team B) [facility](Can non_[facility]_T ea B) TELE CONSULT [id number] Notes Entered by: HEATHER RUIZ 25 Jul 2015 0829 ------- ------- ------- ------- -- Network Results - Neurolo gy - 06/2015 COLEEN WILLETT 07/25[facility](C annon_F HC_Team B) [facility](Can non_[facility]_T ea B) TELE CONSULT [id number] Notes Entered by: NEETU PEREZ 30 Jul 2015 1404 ------- ------- ------- ------- -- URINE TEST GLENDY SILVA 07/30[facility](C annon_F HC_Team B) th [facility](Angel Neal [facility] t) TELE CONSULT [id number] Notes Entered by: TYRON HAYES 31 Jul 2015 1307 ------- ------- ------- ------- -- Elzbieta wells [facility] M&V JOSR BAEZA 07/31 Other Not Elsewhere Classified th [facility](N urse Case Managem ent) [facility](Angel se Case Managemen t) TELE CONSULT [id number] Notes Entered by: TYRON HAYES 01 Aug 2015 1423 ------- ------- ------- ------- -- [facility] JOSR HAYES 08/01 Other Not Elsewhere Classified [facility](N urse Case Managem ent) [facility](Can non_FHC_T eam B) TELE CONSULT [id number] Notes Entered by: ISHA RIZZO 07 Aug 2015 1440 ------- ------- ------- ------- -- [id number] [facility] AISHWARYA KLEIN 08/07th [facility](C annon_F HC_Team B) th [facility](Can non_FHC_T eam B) TELE CONSULT [id number] Notes Entered by: MISA CASH 20 Aug 2015 1015 ------- ------- ------- ------- -- NETWORK RESULTS -OPERAT ELIZABETH NOTE- COLEEN WILLETT 08/[facility](C annon_F HC_Team B) th [facility](Can non_FHC_T eam B) TELE CONSULT [id number] Notes Entered by: HEATHER RUIZ 21 Aug 2015 1250 ------- ------- ------- ------- -- Network Results - Cardiol ogy - 07/2015 COLEEN WILLETT 08/21[facility](C annon_F HC_Team B) [facility](Can non_FHC_T eam B) TELE CONSULT [id number] Notes Entered by: HEATHER RUIZ 31 Aug 2015 1010 ------- ------- ------- ------- -- Network Results - Cardiol ogy - 07/2015 COLEEN WILLETT 08/31[facility](C annon_F HC_Team B) th [facility](Can non_FHC_T eam B) OUTPATIENT [id number] lab work for hep COLEEN Gallego 09/04 Released w/o Limitations th [facility](C annon_F HC_Team B) th [facility](Can non_FHC_T eam B) TELE CONSULT [id number] Notes Entered by: ANISA MACHUCA 13 Sep 2015 1328 ------- ------- ------- ------- -- SLEEP MACHINE NEEDED AISHWARYA KLEIN 09/13 [facility](C annon_F HC_Team B) th [facility](Can non_FHC_T eam B) TELE CONSULT [id number] Notes Entered by: ANISA MACHUCA 17 Sep 2015 1420 ------- ------- ------- ------- -- MEDICAT ION GLENDY HARRIS 09/17 [facility](C annon_F HC_Team B) th [facility](Can non_FHC_T eam B) TELE CONSULT [id number] Notes Entered by: HEATHER RUIZ 20 Sep 2015 1015 ------- ------- ------- ------- -- Network Results - Neurolo gy - 08/2015 COLEEN WILLETT 09/[facility](C annon_F HC_Team B) th [facility](Can non_FHC_T eam B) TELE CONSULT [id number] Notes Entered by: HEATHER RUIZ 25 Sep 2015 0844 ------- ------- ------- ------- -- Network Results - Sleep Study - 07/2015 COLEEN WILLETT 09/[facility](C annon_F HC_Team B) [facility](Can non_FHC_T eam B) TELE CONSULT [id number] Notes Entered by: MISA CASH 08 Oct 2015 0757 ------- ------- ------- ------- -- NETWORK RESULTS -CARDIO LOGY- COLEEN WILLETT 10/08th [facility](C annon_F HC_Team B) th [facility](Can non_FHC_T eam B) OUTPATIENT [id number] CC ACID REFLUX COLEEN WILLETT 10/08 Released w/o Limitations th [facility](C annon_F HC_Team B) [facility](Can non_FHC_T eam B) TELE CONSULT [id number] Notes Entered by: Wicho EDWARDS 12 Oct 2015 1512 ------- ------- ------- ------- -- Possibl e yeast infecti on due to antibio tics GLENDY SILVA 10/12 [facility](C annon_F HC_Team B) [facility](Can non_FHC_T eam B) TELE CONSULT [id number] Notes Entered by: NEETU PEREZ 15 Oct 2015 1325 ------- ------- ------- ------- -- MED EDUARDO CASH Released w/o Limitations th [facility](C annon_F HC_Team B) th [facility](Can non_FHC_T eam B) TELE CONSULT [id number] Notes Entered by: HEATHER RUIZ 16 Oct 2015 1453 ------- ------- ------- ------- -- Network Results - Endocri nology - 08/2015 COLEEN WILLETT 10/15 [facility](C annrhina_F HC_Team B) [facility]) TELE CONSULT [id number] Notes Entered by: LANI BARNHART 19 Oct 2015 1015 ------- ------- ------- ------- -- VULVA BLEEDIN LUIS MANUEL Maddox R ED AND SWOLLEN ALL BERNAL 10/18 [facility] [employer]([facility]) [facility] [employer] [facility] [employer]([facility]) OUTPATIENT [id number] pelvic exam ALL BERNAL 10/21 Released w/o Limitations [employer]([facility]) [facility] [employer] [facility] [employer](Can non_FHC_T eam B) TELE CONSULT [id number] Notes Entered by: LANI BARNHART 23 Oct 2015 1223 ------- ------- ------- ------- -- LAB RESULTS ALL BERNAL 10/22 [employer] [employer](C annrhina_F HC_Team B) [facility] [employer](Can non_FHC_T eam B) TELE CONSULT [id number] Notes Entered by: MISA CASH 12 Nov 2015 1559 ------- ------- ------- ------- -- NETWORK RESULTS -CPAP COMPLIA NCE REPORT- 6 COLEEN WILLETT 11/11 [facility] [employer] [facility] [employer](C lulu_F HC_Team B) [facility] [employer] [facility] [employer](Can non_FHC_T eam B) OUTPATIENT [id number] CC KNEES PAINFUL AND SWELLIN G GETTING WORSE COLEEN WILLETT 11/15 Released w/o Limitations [employer] [facility] [employer] [facility] [employer](C annrhina_F HC_Team B) th [facility](Can non_FHC_T eam B) TELE CONSULT [id number] Notes Entered by: HEATHER RUIZ 16 Nov 2015 1410 ------- ------- ------- ------- -- Network Results - Neurosu rgery - 07/2015 ; Pain Managem ent - 10/2015 ; ARELI ZAMARRIPA 11/15 [facility] [employer] [facility] [employer](C annrhina_F HC_Team B) [employer] [facility] [employer]([facility]) OUTPATIENT [id number] Obesity , unspeci fied MANUEL MOSS 11/19 Released w/o Limitations [employer] [facility] [employer] [facility] [employer]([facility]) [facility] [employer](Can non_FHC_T eam B) TELE CONSULT [id number] Notes Entered by: MISA CASH 21 Nov 2015 1352 ------- ------- ------- ------- -- NETWORK RESULTS -CAROSOSA D ARTERY DUPLEX REPORT- 6 COLEEN WILLETT 11/20 [facility] [employer] [facility](C annrhina_F HC_Team B) [facility](Can non_FHC_T eam B) TELE CONSULT [id number] Notes Entered by: MISA CASH 23 Nov 2015 1718 ------- ------- ------- ------- -- NETWORK RESULTS -CARDIO LOGY- COLEEN WILLETT 11/22th [facility] [employer] [facility](C annrhina_F HC_Team B) th [facility](Can non_FHC_T eam B) TELE CONSULT [id number] Notes Entered by: MISA CASH 27 Nov 2015 1620 ------- ------- ------- ------- -- NETWORK RESULTS -MRI L and R KNEES-0 11/26/15 DECATURDIMITRY N 11/26 Advice Assessment th [facility](C annon_F HC_Team B) th [facility](Can non_FHC_T eam B) TELE CONSULT [id number] Notes Entered by: Linh SILVA 28 Nov 2015 1545 ------- ------- ------- ------- -- Med request GLENDY SILVA 11/27th [facility] [employer] [facility](C annon_F HC_Team B) th [facility](Can non_FHC_T eam B) TELE CONSULT [id number] Notes Entered by: HEATHER RUIZ 04 Dec 2015 1058 ------- ------- ------- ------- -- Network Results - Podiatr y - 11/2015 COLEEN WILLETT 12/03th [facility](C annon_F HC_Team B) th [facility](Can non_FHC_T eam B) TELE CONSULT [id number] Notes Entered by: MISA CASH 05 Dec 2015 1551 ------- ------- ------- ------- -- NETWORK RESULTS -UPPER GI ENDOSCO PY-10/17 09/01 COLEEN WILLETT 12/04th [facility](C annon_F HC_Team B) th [facility](Can non_FHC_T eam B) TELE CONSULT [id number] Notes Entered by: Wicho EDWARDS 06 Dec 2015 1050 ------- ------- ------- ------- -- Elzbieta WILSONDIMITRY Wicho 12/05 Referred for Appointment 27[facility](C annon_F HC_Team B) 27[facility](Can non_FHC_T eam B) TELE CONSULT [id number] Notes Entered by: MISA CASH 06 Dec 2015 1722 ------- ------- ------- ------- -- NETWORK RESULTS -CARDIO LOGY- COLEEN WILLETT 12/05th [facility](C annon_F HC_Team B) 27[facility](Can non_FHC_T eam B) TELE CONSULT [id number] Notes Entered by: KODI COREY 10 Dec 2015 1133 ------- ------- ------- ------- -- Candelario wolffogpia. [id number] COLEEN WILLETT 12/09th [facility](C annon_F HC_Team B) [facility](Can non_FHC_T eam B) [id number] COLEEN Vieyra 12/11 Released w/o Limitations 27[facility](C annon_F HC_Team B) 27[facility](Can non_FHC_T eam B) TELE CONSULT [id number] Notes Entered by: LANI BARNHART 18 Dec 2015 1034 ------- ------- ------- ------- -- MEDICAT ION REFILL GLENDY SILVA 12/17th [facility](C annon_F HC_Team B) [facility] [place] , [facility] TO [facility] [id number] MAHAMED POWER 01/14 DISCHARGED HOME [facility], DIRECT TO [facility] [id number] MAHAMED POWER 01/21 DISCHARGED HOME [facility] [address]) OUTPATIENT [id number] HAVING A REACTIO N TO HER BLOOD THINNER MICHAEL ROMERO Kamla 02/11 Released w/o Limitations [facility](A y [facility] [address]) [facility] [place]([facility] [address]) OUTPATIENT [id number] Notes Entered by: Linh FAM 13 Feb 2016 1322 ------- ------- ------- ------- -- Risk Managem ent Review SOHAM FAM 02/12 Released w/o Limitations [facility] [address]) [facility], DIRECT TO [facility] [id number] ERIC ARTEAGA 02/13 DISCHARGED HOME [facility] [place] [facility] [id number] [facility] JEFF SAUCEDO 02/13 Inpatient- Still a Patient [facility] Pain Interdi sciplin bi) [facility] Cardiolog y Anticoagu lation) TELE CONSULT [id number] Notes Entered by: LUNA 19 Feb 2016 1555 ------- ------- ------- ------- -- Follow up hospita l davidar STEVEN Begum 02/18 [facility] Cardiol ogy Anticoa gulatio n) [facility]([facility]) OUTPATIENT [id number] Notes Entered by: Linh AFM 20 Feb 2016 1024 ------- ------- ------- ------- -- case managem ent SOHAM FAM 02/19 Released w/o Limitations [facility] [address]) [facility] [facility] Anticoagu lation) OUTPATIENT [id number] Pulmona ry embolis STEVEN Gutierrez 02/20 Released w/o Limitations [facility] Cardiol ogy Anticoa gulatio n) [facility] Cardiolog y Anticoagu lation) TELE CONSULT [id number] Notes Entered by: Pia ESTEVES 25 Feb 2016 0932 ------- ------- ------- ------- -- Labs STEVEN BAXTER 02/24 [facility] Cardiol ogy Anticoa gulatio n) [facility] Cardiolog y Anticoagu lation) TELE CONSULT [id number] Notes Entered by: LUNA 25 Feb 2016 1511 ------- ------- ------- ------- -- Pt not able to do labs today STEVEN BAXTER 02/24 [facility] Cardiol ogy Anticoa gulatio n) [facility]([facility] [address] [place]) TELE CONSULT [id number] Notes Entered by: VÍCTOR RODRIGUEZ 26 Feb 2016 0838 ------- ------- ------- ------- -- Appoint ment SOHAM FAM 02/25 [facility] [address]) [facility] Cardiolog y Anticoagu lation) TELE CONSULT [id number] Notes Entered by: LUNA 26 Feb 2016 1603 ------- ------- ------- ------- -- basilio valerioion of INR results and STEVEN Albright 02/25 [facility]([place] [facility] Cardiol ogy Anticoa gulatio n) [facility] TELE CONSULT [id number] Notes Entered by: GABY MOLINA 27 Feb 2016 1116 ------- ------- ------- ------- -- Family hx breast/ ocarian cancers GABY MORE 02/26 [facility]) [facility]([facility] [address]) OUTPATIENT [id number] Notes Entered by: Linh FAM 28 Feb 2016 1049 ------- ------- ------- ------- -- case SOHAM Muniz 02/27 Released w/o Limitations [facility] F[facility]) [facility]([facility] igan Cardiolog y Anticoagu lation) TELE CONSULT [id number] Notes Entered by: ALEJANDRA AGRAWAL 29 Feb 2016 1636 ------- ------- ------- ------- -- nano devlinm ALEJANDRA Betts 02/28 [facility] Cardiol ogy Anticoa gulatio n) [facility]([facility] igan Cardiolog y Anticoagu lation) TELE CONSULT [id number] Notes Entered by: ALEJANDRA AGRAWAL 10 Mar 2016 1348 ------- ------- ------- ------- -- nano devlinm ALEJANDRA Betts 03/10 [facility] Cardiol ogy Anticoa gulatio n) [facility]([facility]) OUTPATIENT [id number] Prebx appt GABY MORE F 03/10 Released w/o Limitations [facility]) [facility]) OUTPATIENT [id number] Prebx ed/coun carrie GABY MORE F 03/13 Released w/o Limitations [facility]) [facility]([facility] igan Cardiolog y Anticoagu lation) TELE CONSULT [id number] Notes Entered by: KENNEDY E 13 Mar 2016 1519 ------- ------- ------- ------- -- Patient has upcomin g procedu re, may need to tempora rily discont inue anticoSTEVEN Kasper 03/13 [facility] Cardiol ogy Anticoa gulatio n) [facility]([facility] igan Cardiolog y Anticoagu lation) TELE CONSULT [id number] Notes Entered by: ISHA MUNOZ 14 Mar 2016 1258 ------- ------- ------- ------- -- Documen tation of INR results and warfari ng dosing. \ ISHA MUNOZ 03/14 [facility] Cardiol ogy Anticoa gulatio n) [facility]([facility] igan Cardiolog y Anticoagu lation) TELE CONSULT [id number] Notes Entered by: ISHA MUNOZ 17 Mar 2016 1325 ------- ------- ------- ------- -- Documen tation of INR results and warfari ng dosing. ISHA MUNOZ 03/17 [facility] Anticoa gulatio n) [facility]([facility]) TELE CONSULT [id number] Notes Entered by: Steff JACOBSEN 18 Mar 2016 0905 ------- ------- ------- ------- -- Virtual Polypha rmacy review IAW SAÚL/AR DC Policy Molina [id number] JONH JACOBSEN 03/18 [facility] [address]) [facility] [facility]olog y Anticoagu lation) TELE CONSULT [id number] Notes Entered by: Mali GROVES 21 Mar 2016 1445 ------- ------- ------- ------- -- INR results and dosing plan GEORGETTE MOTA 03/21 [facility] Cardiol ogy Anticoa gulatio n) [facility]([facility]) TELE CONSULT [id number] Notes Entered by: GABY MOLINA 02 Apr 2016 1327 ------- ------- ------- ------- -- Breast biopsy results GABY MORE 04/02 [facility]) [facility] [facility] Anticoagu lation) TELE CONSULT [id number] Notes Entered by: SARA DAIGLE 04 Apr 2016 1145 ------- ------- ------- ------- -- Patient concern s ISHA MUNOZ 04/04 [facility] Cardiol ogy Anticoa gulatio n) [facility]([facility]) OUTPATIENT [id number] migrane s/dizzy HARSHA Snyder 04/07 Released w/o Limitations [facility]) [facility] [facility] Anticoagu lation) TELE CONSULT [id number] Notes Entered by: Mali GROVES 11 Apr 2016 1526 ------- ------- ------- ------- -- INR results and dosing plan , venlafa xine 100mg starts tomorro ALEJANDRA Muñiz 04/11 [facility](Rebecca thomas Cardiol ogy Anticoa gulatio n) [facility]([address]) TELE CONSULT [id number] Notes Entered by: Linh FAM 22 May 2016 0905 ------- ------- ------- ------- -- f/u HARSHA De La Cruz 05/22 [facility](A [address]) [facility]([facility]) TELE CONSULT [id number] Notes Entered by: GABY MOLINA 29 May 2016 1311 ------- ------- ------- ------- -- Family hx breast cancer GABY MORE 05/29 [facility]) [facility]([address]) TELE CONSULT [id number] Notes Entered by: JOSSELIN NEGRON 30 May 2016 1508 ------- ------- ------- ------- -- Med Rx problem s JOSSELIN NEGRON 05/30 [facility] [address]([address]) TELE CONSULT [id number] Notes Entered by: JASMEET WOLFF 02 Jun 2016 0803 ------- ------- ------- ------- -- prescri ption not called in correct ly JOSSELIN NEGRON 06/02 [facility]A [address]) [facility]([address]) TELE CONSULT [id number] Notes Entered by: SAWYER GIORDANO 16 Jun 2016 0854 ------- ------- ------- ------- -- [facility] ANDI GIORDANO 06/16 [facility] for [facility]ment [facility](A [address]) [facility]([address]) OUTPATIENT [id number] [facility] ARLINE HARSHA Cason 06/18 [facility]ased w/o Limitations [facility](A [address]) [facility] Cardiolog y Anticoagu lation) TELE CONSULT [id number] Notes Entered by: ISHA MUNOZ 24 Jun 2016 1245 ------- ------- ------- ------- -- Pt had PT/INR drawn with request of INR results and warfari n dosing / Documen tat ISHA MUNOZ 06/24 [facility] Cardiol ogy Anticoa gulatio n) [facility]([address]) OUTPATIENT [id number] pain VÍCTOR Wheat 07/07 [facility]ased w/o Limitations [facility](A [address]) [facility]([address]) TELE CONSULT [id number] Notes Entered by: VÍCTOR RODRIGUEZ 09 Jul 2016 1231 ------- ------- ------- ------- -- Adrianat FILIPE Maxwell 07/09 [facility] to [facility]A [address]) [facility]) OUTPATIENT [id number] Migrain e, unspeci fied, not intract able, with status migrain osus ADRIAN TAPIA 07/16 [facility]ased w/o Limitations [facility]) [facility]([address]) TELE CONSULT [id number] Notes Entered by: Linh FAM 16 Jul 2016 1325 ------- ------- ------- ------- -- MRI order needed for Neurosu VÍCTOR Mustafa 07/16 [facility](A [address]) [facility] Intervent ional Radiology ) OUTPATIENT [id number] Notes Entered by: NORBERT TAPIA 16 Jul 2016 1431 ------- ------- ------- ------- -- Botox ADRIAN TAPIA 07/16 [facility]ased w/o Limitations [facility](Rebecca thomas Interve ntional Radiolo gy) [facility]([address]) TELE CONSULT [id number] Notes Entered by: Linh FAM 17 Jul 2016 0912 ------- ------- ------- ------- -- rx request VÍCTOR RODRIGUEZ 07/17 [facility](A [address]) [facility](Ana rosurgery ) OUTPATIENT [id number] Low back pain DEEDEE LAWRENCE 07/22 [facility]ased w/o Limitations [facility](N eurosur melissa) [facility] Cardiolog y Anticoagu lation) TELE CONSULT [id number] Notes Entered by: ISHA MUNOZ 24 Jul 2016 0941 ------- ------- ------- ------- -- Pt had PT/INR drawn with request of INR results and warfari n dosing / Documen tat ISHA MUNOZ 07/24 [facility](M [facility] Cardiol ogy Anticoa gulatio n) [facility] [facility]) TELE CONSULT [id number] Notes Entered by: SENTHIL SandsSAHARA Dorcas 29 Jul 2016 1019 ------- ------- ------- ------- -- NETWORK RESULTS /GI/REF LUX EVAL/DO S 6/[facility]29 Other Not Elsewhere Classified [facility](M [facility]) [facility] [facility]) TELE CONSULT [id number] Notes Entered by: SENTHIL SandsSAHARA Dorcas 29 Jul 2016 1217 ------- ------- ------- ------- -- NETWORK RESULTS /GI/LAB RS/DOS /UPLOA [facility] Dorcas 07/29 Other Not Elsewhere Classified [facility](M [facility]) [facility]([facility]) OUTPATIENT [id number] DISCUSS BARIATR IC SURGERY VÍCTOR RODRIGUEZ 07/31 Released w/o Limitations [facility] F[facility]) [facility]([facility]) OUTPATIENT [id number] Notes Entered by: Linh FAM 05 Aug 2016 1252 ------- ------- ------- ------- -- case manage ent SOHAM FAM 08/05 Released w/o Limitations [facility] F[facility]) [facility]) TELE CONSULT [id number] Notes Entered by: Linh FAM 05 Aug 2016 1258 ------- ------- ------- ------- -- bladder concern s VÍCTOR RODRIGUEZ 08/05 [facility] F[facility]) [facility]) TELE CONSULT [id number] Notes Entered by: VÍCTOR RODRIGUEZ 05 Aug 2016 1442 ------- ------- ------- ------- -- Parking Sticker JOSSELIN NEGRON Sanjay 08/05 [facility] for [facility] [address]) [facility](Ana rosurgery ) OUTPATIENT [id number] 2ND OPINION , PRIOR DR DK Ross PT. RAYMOND KENNEDY 08/06 Released w/o Limitations [facility](N eurosur melissa) [facility]([facility] [address]) TELE CONSULT [id number] Notes Entered by: VÍCTOR RODRIGUEZ 06 Aug 2016 1508 ------- ------- ------- ------- -- Urine results DONNA REESE 08/06 [facility] [address]) [facility] Cardiolog y Anticoagu lation) TELE CONSULT [id number] Notes Entered by: LUNA 07 Aug 2016 144 ------- ------- ------- ------- -- End of Oral Anticoa gulatio n Therapy STEVEN BAXTER 08/07 [facility](M ad[facility] Cardiol ogy Anticoa gulatio n) [facility] [facility]) OUTPATIENT [id number] INTAKE DARRIAN LEACH 08/12 Released w/o Limitations [facility] Pain Interdi sciplin bi) [facility] [facility]) TELE CONSULT [id number] Notes Entered by: Vickie PEREZ 13 Aug 2016 1542 ------- ------- ------- ------- -- NETWORK RESULTS GI EGD 016 JO PEREZ Sanjay 08/13 Other Not Elsewhere Classified [facility](M [facility]) [facility]([facility]) OUTPATIENT [id number] pain in back,ri bs and hips,fe ll last week VÍCTOR RODRIGUEZ 08/14 Released w/o Limitations [facility]) [facility]) TELE CONSULT [id number] Notes Entered by: VÍCTOR RODRIGUEZ 15 Aug 2016 1432 ------- ------- ------- ------- -- Follow- up VÍCTOR RODRIGUEZ 08/15 [facility](A [facility] F[facility]) [facility](Uro logy) TELE CONSULT [id number] Notes Entered by: REJI DIAZ 19 Aug 2016 1427 ------- ------- ------- ------- -- Hematur ia DANYELL DIAZ 08/19 Released w/o Limitations [facility](U rology) [facility] [facility]) TELE CONSULT [id number] Notes Entered by: SINTIA NAVARRETE 20 Aug 2016 0805 ------- ------- ------- ------- -- NETWORK RESULTS /US RUQ/DOS [id number]/ U[facility] D INTO [facility] KHADAR NAVARRETE 08/20 Other Not Elsewhere Classified [facility](M [facility]) [facility](Gen eral Surgery) OUTPATIENT [id number] Obesity , unspeci fied IAN LOPEZ 08/21 Released w/o Limitations [facility](G eneral Surgery ) [facility] [facility]) TELE CONSULT [id number] Notes Entered by: BRANDT BATISTA 22 Aug 2016 1103 ------- ------- ------- ------- -- NETWORK RESULTS GI DIAGNOS TIC STUDIES / LABS DOS 12.9.20 16 BRANDT BATISTA 08/22 Other Not Elsewhere Classified [facility](M [facility]) [facility]([place] [facility]) OUTPATIENT [id number] low back pain (INT EVAL) FROILAN MORRIS 08/27 Released w/o Limitations [facility](M [facility] Pain Interdi sciplin bi) [facility]) TELE CONSULT [id number] JOSSELIN NEGRON 08/29 [facility]) [facility] ADMISSION RESULTING FROM [facility], DIRECT TO [facility] [id number] RAYMOND KENNEDY 09/01 DISCHARGED HOME [facility]([place] Weight Managemen t Case Managemen t) OUTPATIENT [id number] Notes Entered by: MARISELA CANALES 04 Sep 2016 1447 ------- ------- ------- ------- -- removal from bariatr ic pathway JOSE E CANALES 09/04 Released w/o Limitations [facility](M [facility] Weight Managem ent Case Managem ent) [facility]) TELE CONSULT [id number] Notes Entered by: GIANFRANCO MONTALVO 05 Sep 2016 0857 ------- ------- ------- ------- -- [facility] Inpatie nt Follow Up GIANFRANCO MONTALVO 09/05 [facility] F01B [facility]) [facility]) TELE CONSULT [id number] Notes Entered by: VÍCTOR RODRIGUEZ 05 Sep 2016 1117 ------- ------- ------- ------- -- ECHO Pain Report VÍCTOR RODRIGUEZ 09/05 [facility] [address]) [facility], DIRECT TO [facility] [id number] ARELI COUCH 09/08 DISCHARGED HOME [facility]([facility] [address]) TELE CONSULT [id number] Notes Entered by: GIANFRANCO MONTALVO 12 Sep 2016 0831 ------- ------- ------- ------- -- [facility] Inpatie nt Follow Up VÍCTOR RODRIGUEZ 09/12 [facility] [address]) [facility]([facility]) TELE CONSULT [id number] Notes Entered by: GABY MOLINA 17 Sep 2016 1101 ------- ------- ------- ------- -- Br cancer hi risk f/u GABY MORE 09/17 [facility]) [facility]([address]) TELE CONSULT [id number] Notes Entered by: Linh FAM 17 Sep 2016 1529 ------- ------- ------- ------- -- med refill SOHAM FAM 09/17 [facility] Medical Home [address]) [facility]) OUTPATIENT [id number] Med Review BRADY SAUCEDO 09/19 Released w/o Limitations [facility]- armacy [facility]) [facility] Medical [address]) OUTPATIENT [id number] f/u hosp discect malorie/torrez inectom y L5 VÍCTOR RODRIGUEZ 09/19 Released w/o Limitations [facility](A y Medical Home [address] [place]) [facility](Uro logy) OUTPATIENT [id number] hematur OLIVE Ledbetter 09/23 Released w/o Limitations [facility](U rology) [facility] Medical [address] [place]) OUTPATIENT [id number] Notes Entered by: Linh FAM 23 Sep 2016 1508 ------- ------- ------- ------- -- case managem ent SOHAM FAM 09/23 Released w/o Limitations [facility](A [facility] Medical [place] [id number] [place]) [facility]([address] [place]) TELE CONSULT [id number] Notes Entered by: VÍCTOR RODRIGUEZ 24 Sep 2016 0717 ------- ------- ------- ------- -- SOHAM Nicholson 09/24 [facility] [address] [place]) [facility](Ana rosurgery ) OUTPATIENT [id number] post-op f/u, DOS 08 September 2016 RAYMOND KENNEDY 09/24 Released w/o Limitations [facility](N eurosur melissa) [facility]([address] [place]) TELE CONSULT [id number] Notes Entered by: Linh FAM 24 Sep 2016 0943 ------- ------- ------- ------- -- SOHAM Trejo 09/24 [facility](A [facility] Medical [place] [id number] [place]) [facility]([employer] Oncology) OUTPATIENT [id number] 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/?H RT IESHA DAVALOS 09/30 Released w/o Limitations [facility]([place] [employer] [facility] Oncolog y) [facility] Medical [place] [id number] [facility]) OUTPATIENT [id number] Notes Entered by: Linh FAM 20 Oct 2016 1455 ------- ------- ------- ------- -- Case Managerebecca ent SOHAM FAM 10/20 Released w/o Limitations [facility] 1B [facility]) [facility] Medical [address]) TELE CONSULT [id number] Notes Entered by: JOSSELIN NEGRON 28 Oct 2016 1504 ------- ------- ------- ------- -- Labs prior to apptj JOSSELIN NEGRON 10/28 Referred for Appointment [facility] Medical Home [address]) [facility](Ana rology Clinic) OUTPATIENT [id number] ADRIAN Mejia 10/29 Released w/o Limitations [facility](N eurolog y Clinic) [facility]([address]) OUTPATIENT [id number] F/U FOR IRON LEVELS IRINA GIL 11/05 Released w/o Limitations [facility](A [facility] Home 1B [facility]) [facility]([place] [facility]) TELE CONSULT [id number] Notes Entered by: SAHARA POLLACK 06 Nov 2016 0928 ------- ------- ------- ------- -- NETWORK RESULTS /GI/EGD BX/DOS 7/UPLOA DED IN TEJAS SAHARA RAMÍREZ 11/06 Other Not Elsewhere Classified [facility](M martha [facility]) [facility]([place] [facility] Pain Teleconfe ren) TELE CONSULT [id number] Notes Entered by: [place] LEACH 13 Nov 2016 1735 ------- ------- ------- ------- -- ECHO Pain TeleCon ference Present ation 04 Sep 2016 MARTINEZ LEACHI Linh 11/14 [facility]([place]becca [place] Echo Pain Telecon ference ) [facility]([address]) OUTPATIENT [id number] Notes Entered by: Linh FAM 30 Dec 2016 1731 ------- ------- ------- ------- -- case managem ent SOHAM FAM 12/31 Released w/o Limitations [facility](A [address]) [facility]([address]) TELE CONSULT [id number] Notes Entered by: Linh FAM 08 Jan 2017 1427 ------- ------- ------- ------- -- radiolo gy request s JOSSELIN NEGRON 01/08 [facility] [address] OUTPATIENT [id number] Pt fell, hurt her back [place] 01/08 [facility]ased w/o Limitations [facility]A [address]) [facility]Ana [facility] ) OUTPATIENT [id number] had fall recentl y needs reeval. RAYMOND KENNEDY 01/20 [facility]ased w/o Limitations [facility]) [facility] Health Outcome Managemen t) OUTPATIENT [id number] Notes Entered by: Linh FAM 26 Jan 2017 1212 ------- ------- ------- ------- -- case managem ent SOHAM FAM 01/26 Released w/o Limitations [facility] Health Outcome Managem ent) [facility]([address]) TELE CONSULT [id number] Notes Entered by: JOSSELIN NEGRON 29 Jan 2017 0838 ------- ------- ------- ------- -- Imaging results ERIC JESSICA 01/29 [facility] F[facility] [place]) [facility]([place] [id number] [place]) OUTPATIENT [id number] review dexa scan and labs RUANOJOSE V 02/06 [facility]ased w/o Limitations [facility] F[facility] [place]) [facility] Optometry ) OUTPATIENT [id number] eye exam PAU KOEHLER 02/13 [facility]ased w/o Limitations [facility] Optomet ry) [facility] Health Outcome Managemen t) OUTPATIENT [id number] Notes Entered by: Linh FAM 17 Mar 2017 1106 ------- ------- ------- ------- -- case managem ent SOHAM FAM 03/17 [facility] Health Outcome Managem ent) [facility]([place] [id number] [place]) TELE CONSULT [id number] Notes Entered by: Linh FAM 19 Mar 2017 1640 ------- ------- ------- ------- -- referra l request for Bariatr ic Surgery ERIC JESSICA 03/19 [facility] for [facility] [id number] [place]) [facility]([place] [id number] [place]) OUTPATIENT [id number] referra villeda for bariatr ic surgery [place] 03/23 [facility]ased w/o Limitations [facility] [id number] [place]) 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 GABY MORE 04/01 [facility]) [facility]) TELE CONSULT [id number] Notes Entered by: Linh FAM 16 Apr 2017 1408 ------- ------- ------- ------- -- MED REFILL ERIC JESSICA 04/16 Medication Refill Forwarded [facility]) [facility] Health Outcome Managemen t) OUTPATIENT [id number] Notes Entered by: Linh FAM 21 Apr 2017 0929 ------- ------- ------- ------- -- case managem ent SOHAM FAM 04/21 Released w/o Limitations [facility] Health Outcome Managem ent) [facility](Gen eral Surgery) OUTPATIENT [id number] Obesity , unspeci fied IAN LOPEZ 04/23 [facility]ased w/o Limitations [facility]G [facility] ) [facility]y [facility]) OUTPATIENT [id number] Botox ADRIAN TAPIA 04/24 [facility]ased w/o Limitations [facility]) [facility] Weight Managemen t Case Managemen t) OUTPATIENT [id number] BariJOSE E Paulson 04/28 Released w/o Limitations [facility] Weight Managem ent Case Managem ent) [facility]) OUTPATIENT [id number] healthy eating PATEL QUINN 04/28 Released w/o Limitations [facility](Rebecca [facility]omas Nutriti on Clinic) [facility] F[facility]B [place]) OUTPATIENT [id number] Initial [facility] pathway [place] Wero 04/28 Released w/o Limitations [facility](A [facility] Medical [facility] F[address] [place]) [facility]([place] [employer] [facility]) OUTPATIENT [id number] [facility] FRANSICO VEGA 04/29 Released w/o Limitations [facility]([place] [employer] Outpati ent) [facility] F[facility] [place]) TELE CONSULT [id number] [place] Wero 05/05 [facility](A [facility] Medical Home F01B [place]) [facility]([place] [employer] Manager Oncology) OUTPATIENT [id number] PT ESTEVAN BARTON 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 W/STG OCT 03, COULD NO RETRIEV E RCLIN, GEORGIE GREENE 05/19 Released w/o Limitations [facility]([place] [employer] [employer] [facility] Manager Oncolog y) [facility]([place] [facility] Managemen [facility] Case Managemen t) OUTPATIENT [id number] Notes Entered by: ZARINA IBRAHIM 21 May 2017 0752 ------- ------- ------- ------- -- Chart review for [facility] DEVORAH ALCARAZ 05/21 [facility]ased w/o Limitations [facility]([place] Weight Managem ent Case [...] HEALTH AND BEHAVIOR INTERVENTION, EACH 15 MINUTES, [id number]; GROUP (2 OR MORE PATIENTS) 04/28 [facility] MEDICAL NUTRITION THERAPY; GROUP (2 OR MORE INDIVIDUAL(S)), EACH 30 MINUTES 04/28 [facility]D COORDINATED CARE FEE, RISK ADJUSTED MAINTENANCE 04/28 DoD INJECTION(S), ANESTHETIC AGENT(S) AND/OR STEROID; GREATER OCCIPITAL NERVE 04/24 DoD PSYCHOTHERAPY, 60 MINUTES WITH PATIENT 04/23 DoD PHYS/OTH QUALIFIED HEALTH BEADING INSTALLER QUALIFIED,EDUCATIO N,TRAIN,LICENSURE/ REGULATION (WHEN APPLICABLE) EDUC SER [...] DoD CASE MANAGEMENT, EACH 15 MINUTES 03/17 [facility] DETERMINATION OF REFRACTIVE STATE 02/13 DoD BRIEF [...] NUMBER OF CONSTITUENTS; W/O MICRO, NON-AUTO 09/23 [facility] MEDICATION THERAPY MGT SERVICE(S) PROVIDED,A PHARMACISTWOOD F YAHAIRA-TO-FACE W PATIENT,WITH ASSESS & INTERVENE IF PROVIDED;EA ADDITION 15 MINUTES (LIST SEPARATELY IN ADDITION TO CODE FOR PRIM SERVICE) 09/19 [facility] COORDINATED CARE FEE, RISK ADJUSTED MAINTENANCE, LEVEL 3 09/16 [facility] INSPECTION OF LUMBOSACRAL JOINT, OPEN APPROACH 09/11 [facility] EXCISION OF LUMBOSACRAL DISC, OPEN APPROACH 09/11 [facility] POSTOPERATIVE FOLLOW-UP VISIT, NORMALLY INCLUDED IN THE SURGICAL PACKAGE, INDICATE THAT EVALUATION & MANAGEMENT SERVICE WAS PERFORMED DURING A POSTOPERATIVE PERIOD REASON RELATED ORIGINAL PROCEDURE 09/11 DoD POSTOPERATIVE FOLLOW-UP VISIT, NORMALLY INCLUDED IN THE SURGICAL PACKAGE, INDICATE THAT EVALUATION & MANAGEMENT SERVICE WAS PERFORMED DURING A POSTOPERATIVE PERIOD REASON RELATED ORIGINAL PROCEDURE 09/10 [facility] POSTOPERATIVE FOLLOW-UP VISIT, NORMALLY INCLUDED IN THE SURGICAL PACKAGE, INDICATE THAT EVALUATION & MANAGEMENT SERVICE WAS PERFORMED DURING A POSTOPERATIVE PERIOD REASON RELATED ORIGINAL PROCEDURE 09/09 [facility] LAMINOTOMY (HEMILAMINECTOMY), WITH DECOMPRESSION OF NERVE ROOT(S), INCLUDING PARTIAL FACETECTOMY, FORAMINOTOMY &/ EXCISION OF HERNIATED INTERVERTEBRAL DISC, REEXPLORATION, SINGLE INTERSPACE; LUMBAR 09/08 [facility] INJECTION, ONDANSETRON HCL, PER 1 MG 09/08 [facility] CASE MANAGEMENT, EACH 15 MINUTES 09/04 DoD [...] WITH PATIENT 08/26 DoD PHYS/OTH QUALIFIED HEALTH BEADING INSTALLER QUALIFIED,EDUCATIO N,TRAIN,LICENSURE/ REGULATION (WHEN APPLICABLE) EDUC SER [...] DoD CASE MANAGEMENT, EACH 15 MINUTES 07/15 [facility] PNEUMOCOCCAL POLYSACCHARIDE VACCINE, 23-VALENT (PPSV23), ADULT [...] ADDITION TO CODE FOR PRIMARY PROCEDURE) 06/14 [facility] COORDINATED CARE FEE, RISK ADJUSTED MAINTENANCE [...] SPECIMEN,WHEN PERFORMED,PERCUT;F IRST LESION,INCLUDING ULTRASOUND GUIDANCE 03/18 [facility] PHYS/OTH QUALIFIED HEALTH BEADING INSTALLER QUALIFIED,EDUCATIO N,TRAIN,LICENSURE/ REGULATION (WHEN APPLICABLE) EDUC SER RENDERED TO PATS IN A GRP SETTING (EG,,OBESI TY,OR DIABETIC INSTRUCT) 03/13 DoD CASE MANAGEMENT, EACH 15 MINUTES 02/27 [facility] EDUCATION &TRAINING, PATIENT SELF-MGT QUALIFIED, NONPHYSICIAN HEALTH BEADING INSTALLER USING STDIZED CURRICULUM, [id number] W THE PATIENT (COULD INCL CAREGIVER/FAMILY) EA [...] HEALTH AND BEHAVIOR INTERVENTION, EACH 15 MINUTES, [id number]; FAMILY (WITH THE PATIENT PRESENT) 01/23 DoD HEALTH&BEHAV ASSESSMENT (EG, HEALTH-FOC CLINICAL INTERVIEW, BEHAVIORAL OBSERVATIONS, PSYCHOPHYSICOLOGIC AL MONITOR, HEALTH-ORIENT QUESTIONNAIRES), EA 15 MIN [id number] W THE PATIENT; INIT ASSESSMENT 01/22 DoD [...] - LOWER BACK / LOWER EXTREMITY 01/20 [facility] MUSCLE PERFORMANCE ASSESSMENT OF MUSCULOSKELETAL SYSTEM - LOWER BACK / LOWER EXTREMITY USING ASSISTIVE, ADAPTIVE, SUPPORTIVE OR PROTECTIVE EQUIPMENT 01/20 [facility] RANGE OF MOTION AND JOINT INTEGRITY ASSESSMENT OF MUSCULOSKELETAL SYSTEM - UPPER BACK / UPPER EXTREMITY 01/20 [facility] MUSCLE PERFORMANCE ASSESSMENT OF MUSCULOSKELETAL SYSTEM - UPPER BACK / UPPER EXTREMITY USING ASSISTIVE, ADAPTIVE, SUPPORTIVE OR PROTECTIVE EQUIPMENT 01/20 [facility] TRANSFER TRAINING TREATMENT USING ASSISTIVE, ADAPTIVE, SUPPORTIVE OR PROTECTIVE EQUIPMENT 01/20 [facility] GROOMING/PERSONAL HYGIENE ASSESSMENT USING ASSISTIVE, ADAPTIVE, SUPPORTIVE OR PROTECTIVE EQUIPMENT 01/20 [facility] ERGONOMICS AND BODY MECHANICS ASSESSMENT USING ASSISTIVE, ADAPTIVE, SUPPORTIVE OR PROTECTIVE EQUIPMENT 01/20 [facility] BED MOBILITY TREATMENT USING ASSISTIVE, ADAPTIVE, SUPPORTIVE OR PROTECTIVE EQUIPMENT 01/20 [facility] INTRODUCTION OF OTHER THERAPEUTIC SUBSTANCE INTO SUBCUTANEOUS TISSUE, PERCUTANEOUS APPROACH 01/20 [facility] MOTOR FUNCTION ASSESSMENT OF NEUROLOGICAL SYSTEM - LOWER BACK / LOWER EXTREMITY 01/20 [facility] INTRODUCTION OF ANALGESICS, HYPNOTICS, SEDATIVES INTO PERIPHERAL VEIN, PERCUTANEOUS APPROACH 01/20 DoD HEALTH&BEHAV ASSESSMENT (EG, HEALTH-FOC CLINICAL INTERVIEW, BEHAVIORAL OBSERVATIONS, PSYCHOPHYSICOLOGIC AL MONITOR, HEALTH-ORIENT QUESTIONNAIRES), EA 15 MIN [id number] W THE PATIENT; INIT ASSESSMENT 01/17 [facility] INJECTION, MORPHINE SULFATE, UP TO 10 MG 01/13 [facility] Coordinated care fee, risk adjusted maintenance 02/18 SOAHM FAM [facility] Non-Physician Phone Call To Patient/Provider Brief (5-10min) Non-Physician Phone Call To Patient/Provider Brief (5-10min) [id number] 11/27 GLENDY SILVA [facility] Medical Nutrition Therapy Group (2 or More Individual(s)) Medical Nutrition Therapy Group (2 or More Individual(s)) [id number] 11/22 MANUEL MOSS [facility] Non-Physician Phone Call To Patient/Provider Brief (5-10min) Non-Physician Phone Call To Patient/Provider Brief (5-10min) [id number] GLENDY SILVA [facility] Non-Physician Phone Call To Patient/Provider Brief (5-10min) Non-Physician Phone Call To Patient/Provider Brief (5-10min) [id number] 09/13 AISHWARYA KLEIN [facility] Non-Physician Phone Call To Patient/Provider Brief (5-10min) Non-Physician Phone Call To Patient/Provider Brief (5-10min) [id number] 08/20 GLENDY SILVA [facility] Case Management, each 15 minutes 08/01 JOSR HAYES DoD Case Management, each 15 minutes 07/31 JOSR HAYES 45 minutes - review of records, completion and fax of UHCM&V CM referral, and documentation [facility] Determination Of Refractive State Determination Of Refractive State [id number] 07/04 TERRELL WILLAMS [facility] Ophthalmological New Patient Start Comprehensive Care Ophthalmological New Patient Start Comprehensive Care [id number] 07/04 TERRELL WILLAMS [facility] Non-Physician Phone Call To Patient/Provider Brief (5-10min) Non-Physician Phone Call To Patient/Provider Brief (5-10min) [id number] 06/26 GLENDY SILVA [facility] Screening papanicolaou smear; obtaining, preparing and conveyance of cervical or vaginal smear to laboratory 06/25 ALL BERNAL [facility] Non-Physician Phone Call To Patient/Provider Brief (5-10min) Non-Physician Phone Call To Patient/Provider Brief (5-10min) [id number] 06/11 AISHWARYA KLEIN [facility] Non-Physician Phone Call To Patient/Provider Brief (5-10min) Non-Physician Phone Call To Patient/Provider Brief (5-10min) [id number] 05/03 ANGUS PEREZ [facility] Case Management, each 15 minutes 05/21 DEVORAH ALCARAZ Chart review, relay health, and documentation [facility] Coordinated care fee, maintenance rate 05/21 DEVORAH ALCARAZ [facility] Health And Behav Intervention, Each 15 Min Grp (2 Or More) Health And Behav Intervention, Each 15 Min Grp (2 Or More) [id number] 04/29 FRANSICO VEGA [facility] Medical Nutrition Therapy Group (2 or More Individual(s)) Medical Nutrition Therapy Group (2 or More Individual(s)) [id number] 04/28 PATEL JARA [facility] Coordinated care fee, risk adjusted maintenance 04/28 JOSE E CANALES [facility] Case Management, each 15 minutes 04/28 JOSE E CANALES AG#1,5,1,17 [facility] Injection, onabotulinumtoxina , 1 unit 04/26 ADRIAN TAPIA Nerve Block Greater Occipital 04/[address]Supervised Group Educational Services -Supervised Group Educational Services [id number] 04/[address]Supervised Services Provision Of Educational Supplies -Supervised Services Provision Of Educational Supplies [id number] 04/24 IAN LOPEZ Case Management, each 15 minutes 04/23 SOHAM FAM 2.5 hours for targeted assessment and coordination of services. [facility] Coordinated care fee, maintenance rate 04/23 SOHAM FAM Immunization Administration One Vaccine Immunization Administration One Vaccine 36124 03/27 [place] Hepatitis A And Hepatitis B (Intramuscular Use) Adult Dosage Hepatitis A And Hepatitis B (Intramuscular Use) Adult Dosage 13912 03/27 [place] Hep A-Hep B; Series #: 1; 1.0 mL; IM; Left Arm; Mfg: [employer]; Lot: [id number]; VIS given (Michael: 03/05/16; 03/05/16). [facility] Case Management, each 15 minutes 03/19 3 hours for targeted assessmetn and complex coordination of services. [facility] Coordinated care fee, risk adjusted maintenance 03/19 [facility] Determination Of Refractive State Determination Of Refractive State [id number] 02/13 CHAO KOEHLER [facility] Ophthalmological New Patient Start Comprehensive Care Ophthalmological New Patient Start Comprehensive Care [id number] 02/13 CHAO KOEHLER Coordinated care fee, risk adjusted maintenance 01/30 SOHAM FAM 3.5 hrs spent on coordination of care, targeted assessment, and emotional support. Hanane Case Management, each 15 minutes 01/30 SOHAM FAM Case Management, each 15 minutes 01/06 SOHAM FAM 4 hrs for targeted assessment, coordination of services, and careplan. [facility] Coordinated care fee, risk adjusted maintenance 01/06 SOHAM FAM Nerve Block Greater Occipital 10/30 ADRIAN TAPIA Injection, onabotulinumtoxina , 1 unit 10/30 REGINA, YINCE DoD Case Management, each 15 minutes 10/22 SOHAM FAM 3 hours for targeted assessment, coordination of care, and followup phone calls. [facility] Coordinated care fee, risk adjusted maintenance 10/22 SOHAM FAM [facility] Coordinated care fee, risk adjusted maintenance 09/26 SOHAM FAM Case Management, each 15 minutes 09/26 SOHAM FAM 4 hrs for targeted assessment, 3 phone followups, complex coordination of services, and patient activation simple for education. [facility] Routine UA Without Microscopic Examination Routine UA Without Microscopic Examination 21489 09/23 DOUGIE DIAZ Cystoscopy (Diagnostic) Cystoscopy (Diagnostic) 96926 09/23 DOUGIE DIAZ Medication Management By Pharmacist Each Additional 15 Min Medication Management By Pharmacist Each Additional 15 Min [id number] 09/19 BRADY SAUCEDO Med Management By Pharmacist Initial 15 Min New Patient Med Management By Pharmacist Initial 15 Min New Patient [id number] 09/19 BRADY SAUCEDO Intervention And Counseling On Ce ation Of Tobacco Use Intervention And Counseling On Cessation Of Tobacco Use 4000F 09/19 BRADY SAUCEDO Case Management, each 15 minutes 09/17 SOHAM FAM 2 hrs spent doing inpatient hospital followup and coordination of services. [facility] Coordinated care fee, risk adjusted maintenance, Level 3 09/17 SOHAM FAM [facility] Case Management, each 15 minutes 09/05 SOHAM FAM 4 hours for inpatient hospital followup, complex coordination of services, Multi D meeting for pain mgmt, and 2 followup phone calls. [facility] Coordinated care fee, risk adjusted maintenance 09/05 SOHAM FAM [facility] Coordinated care fee, maintenance rate 09/04 JOSE E CANALES DoD Case Management, each 15 minutes 09/04 JOSE E CANALES AG#2 DoD Case Management, each 15 minutes 08/26 SOHAM FAM 3 hours for targeted assessment, coordination of services with , emotional support. [facility] Coordinated care fee, risk adjusted maintenance 08/26 SOHAM FAM [facility] Psychiatric Evaluation Review of Records and Reports Psychiatric Evaluation Review of Records and Reports [id number] 08/21 IESHA LUONG The patient's available records (medication/pres criptions, relevant progress notes, and relevant labs) were reviewed outside of a face to face appointment for the purpose of aiding in treatment planning and/or development of diagnoses. [facility] Case Management, each 15 minutes 08/07 SOHAM FAM 3 hrs spent with patient for targeted assessments, followup phone calls X 3, complex coordination of services. [facility] Coordinated care fee, risk adjusted maintenance 08/07 SOHAM FAM Psychiatric Evaluation Comprehensive Examination Psychiatric Evaluation Comprehensive Examination 76967 07/31 YURIY LOPEZ Case Management, each 15 minutes 07/31 SOHAM FAM 3 hours for targeted assessment, complex coordination of care. [facility] Coordinated care fee, risk adjusted maintenance 07/31 SOHAM FAM Case Management, each 15 minutes 07/18 SOHAM FAM 4 hrs this week working on targeted assessment, complex coordination of services with multiple providers of care, multiple followup phone calls to patient, [facility] Coordinated care fee, risk adjusted maintenance, Level 3 07/18 SOHAM FAM Nerve Block Greater Occipital 07/16 ADRIAN TAPIA Injection, onabotulinumtoxina , 1 unit 07/16 ADRIAN TAPIA [facility] Psychiat Ther Indiv Interactive Approximately 45-50 Minutes 07/16 VÍCTOR CRUZ [facility] Case Management, each 15 minutes 07/16 SOHAM FAM 3 hours for targeted assessment, coordination of referrals, and emotional support for pain management and lack of function. [facility] Coordinated care fee, risk adjusted maintenance 07/16 SOHAM FAM [facility] Immunization Administration One Vaccine Immunization Administration One Vaccine 16170 07/09 VÍCTOR RODRIGUEZ [facility] Immunization Administration Each Additional Vaccine Immunization Administration Each Additional Vaccine 45386 07/09 VCÍTOR RODRIGUEZ 1. Patient denies feeling sick with fever 2. Patient denies having a serious reaction to a flu vaccine 3. Patient denies having Gu[place] syndrom (GBS) 4. Patient denies having a [...] benefits and risks of the influenza vaccine. [facility] Tdap Vaccine Tdap Vaccine 99746 07/09 VÍCTOR RODRIGUEZ Tdap; Series #: 1; .5 mL; IM; Right Arm; Mfg: [employer]; Lot: [id number]; VIS given (Mcihael: 10/10/14). [facility] Pneumococcal Polysaccharide Vaccine (Age 2Y+) Pneumococcal Polysaccharide Vaccine (Age 2Y+) 00742 07/09 VÍCTOR RODRIGUEZ Pneumococcal polysaccharide PPV23; Series #: 1; .5 mL; IM; Left Arm; Mfg: [employer]; Lot: [id number]; VIS given (Michael: 12/08/14). [facility] Case Management, each 15 minutes 07/03 SOHAM FAM Targeted assessment, coordination of care, Multi D discussions. [facility] Coordinated care fee, risk adjusted maintenance 07/03 SOHAM FAM Psychiat Ther Indiv Interactive Approximately 45-50 Minutes 06/24 VÍCTOR CRUZ Case Management, each 15 minutes 05/22 SOHAM FAM 3 hours for targeted assessment and complex coordination of care, [facility] Coordinated care fee, risk adjusted maintenance 05/22 SOHAM FAM Case Management, each 15 minutes 05/15 SOHAM FAM 5 hours for comprehensive care to targeted/modifie d followup for pain, updated careplan, complex coordination of services for multiple referrals, individual emotional support to include LUKAS and Depression scoring. [facility] Coordinated care fee, risk adjusted maintenance 05/15 SOHAM FAM Non-Physician Phone Call To Patient/Provider Brief (5-10min) Non-Physician Phone Call To Patient/Provider Brief (5-10min) [id number] 04/14 KATYH GROVES Non-Physician Phone Call To Patient/Provider Brief (5-10min) Non-Physician Phone Call To Patient/Provider Brief (5-10min) 61742 03/[address]Supervised Services Provision Of Educational Supplies -Supervised Services Provision Of Educational Supplies 98164 03/13 GABY MORE [facility] -Supervised Group Educational Services -Supervised Group Educational Services 45001 03/13 GABY MORE [facility] Case Management, each 15 minutes 03/04 SOHAM FAM 3 hours with multiple f/u calls to patient, complex coordinaton of services with multiple specialties and appts needed, Mult D meeting with two providers of care. [facility] Coordinated care fee, risk adjusted maintenance 03/04 SOHAM FAM Medication Management By Pharmacist Each Additional 15 Min Medication Management By Pharmacist Each Additional 15 Min [id number] 02/25 STEVEN BAXTER Med Management By Pharmacist Initial 15 Min New Patient Med Management By Pharmacist Initial 15 Min New Patient [id number] 02/25 STEVEN BAXTER Preventive Medicine Anticoagulant Therapy Warfarin Preventive Medicine Anticoagulant Therapy Warfarin 4012F 02/25 STEVEN BAXTER Patient Counseling Medical Management Individual Patient Patient Counseling Medical Management Individual Patient [id number] 02/25 STEVEN BAXTER Case Management, each 15 minutes 02/21 SOHAM FAM 3 hrs spent doing Transitional Care post discharge from hospital, multi D with several providers of care, patient teaching/activat ion regarding anticoagulation therapy to assess understanding, and coordination of service. [facility] Coordinated care fee, risk adjusted maintenance, Level 3 02/21 SOHAM FAM Case Management, each 15 minutes 02/18 SOHAM FAM 5 hrs spent on the following: Initial Assessment, Face To Face Health Care Goal Planning, Complex Coordination of a Service with multiple specialties, Risk Assessment, Hospital Discharge, [facility] Social History Combined list of available [...] section is an empty social history section. [facility] Assessment and Plan Combined list of [...] spent 21 minutes of my 40 minutes [id number] with the patient discussing the examination, therapy, [...] well. MD NICCI Cox, Interventional Neuroradiology Staff [facility] Ordered: onabotulinumtoxinA, 200 units, IntraMuscular, Injection, Once, First Dose: 02/25/2018 16:00:00 PDT, Stop Date: 02/25/2018 16:00:00 PDT CHEMODEN,1 EXT;EA ADD,1-4 [facility] 90969 N Block Inj, Occipital 66967 Common migraine without aura Ordered: onabotulinumtoxinA, 200 units, IntraMuscular, Injection, Once, First Dose: 02/25/2018 16:00:00 PDT, Stop Date: 02/25/2018 16:00:00 PDT [facility] Migraine 02818 Extracted from:Title: Office Clinic Note Author: JACOBY JONAS Date: 01/26/18 1. D evice status Ordered: Ankle foot orthosis, ankle gauntlet L1902 Foot, arch support, removable, premolded, longitudinal L3040 Orthotic Mgmt+Trainj Uxtr Lxtr+/Trnk Ea 15 Min 59937 2. T ibialis tendonitis Ordered: Ankle foot orthosis, ankle gauntlet L1902 Foot, arch support, removable, premolded, longitudinal L3040 Orthotic Mgmt+Trainj Uxtr Lxtr+/Trnk Ea 15 Min 99627 3. T ibialis tendonitis Ordered: Ankle foot orthosis, ankle gauntlet L1902 Foot, arch support, removable, premolded, longitudinal L3040 Orthotic Mgmt+Trainj Uxtr Lxtr+/Trnk Ea 15 Min 98418 Extracted from:Title: Neurology Office Visit Note Author: [...] spent 21 minutes of my 40 minutes [id number] with the patient discussing the examination, therapy, [...] tolerated the procedure well. Adrian Tapia MD [facility] Interventional Neuroradiology Ordered: Bilateral N Block Inj, Occipital 54611 Office Visit Level 4 Est 45855 Extracted from:Title: General Surgery Clinic Note Author: [...] understanding. Ordered: Office Visit Level 4 Est 18743 2. P endulous breast Bilateral. Will refer back to Plastics Clinic for further evaluation and treatment. Ordered: Office Visit Level 4 Est 79747 3. B ilateral foot pain Chronic. Will get bilateral foot xrays and will refer patient to Podiatry Clinic. patient is aware that her weight is a contributing factor. [place], [employer], [employer] Ordered: Office Visit Level 4 Est 64434 XR Foot 2 Views Bilateral Orders: lidocaine [...] Right ? L eft Procerus midline 5 Student Dean 5 units ? 5 units Frontalis 5 [...] Date: 12/03/2017 15:00:00 PDT [facility] Migraine 23401 Office Visit Level 2 Est 11060 Extracted from:Title: Clinical Pharmacy Note Bariatric Pathway [...] decreased. Recommend using calcium citrate. o M [facility] patients who require medication for [...] Ordered: Medication Therapy Each Additional 15 Min 63224 Medication Therapy Initial 15 Min New Patient 10686 Extracted from:Title: Neurology Office Visit Note Author: [...] spent 21 minutes of my 40 minutes [id number] with the patient discussing the examination, therapy, [...] # 30 tabs, 0 total refill(s), 08/20/2017, [facility] pharmacy dispense (Rx) [Not filled] XR Calcaneous Left 01/18/[address] [place] [address] Assessment and Plan Extracted from:Title : Neurology [...] spent 21 minutes of my 40 minutes [id number] with the patient discussing the examination, therapy, [...] tolerated the procedure well. Adrian Tapia MD [facility], Interventional Neuroradiology Staff [facility] Ordered: onabotulinumtoxinA, 200 units, IntraMuscular, Injection, Once, First Dose: 02/25/2018 16:00:00 PDT, Stop Date: 02/25/2018 16:00:00 PDT CHEMODEN,1 EXT;EA ADD,1-4 [facility] 06582 N Block Inj, Occipital 31348 Common migraine without aura Ordered: onabotulinumtoxinA, 200 units, IntraMuscular, Injection, Once, First Dose: 02/25/2018 16:00:00 PDT, Stop Date: 02/25/2018 16:00:00 PDT [facility] Migraine 39942 Extracted from:Title: Office Clinic Note Author: JACOBY JONAS Date: 01/26/18 1. D evice status Ordered: Ankle foot orthosis, ankle gauntlet L1902 Foot, arch support, removable, premolded, longitudinal L3040 Orthotic Mgmt+Trainj Uxtr Lxtr+/Trnk Ea 15 Min 68448 2. T ibialis tendonitis Ordered: Ankle foot orthosis, ankle gauntlet L1902 Foot, arch support, removable, premolded, longitudinal L3040 Orthotic Mgmt+Trainj Uxtr Lxtr+/Trnk Ea 15 Min 22672 3. T ibialis tendonitis Ordered: Ankle foot orthosis, ankle gauntlet L1902 Foot, arch support, removable, premolded, longitudinal L3040 Orthotic Mgmt+Trainj Uxtr Lxtr+/Trnk Ea 15 Min 75382 Extracted from:Title: Neurology Office Visit Note Author: [...] spent 21 minutes of my 40 minutes [id number] with the patient discussing the examination, therapy, [...] tolerated the procedure well. Adrian Tapia MD [facility] Interventional Neuroradiology Ordered: Bilateral N Block Inj, Occipital 24228 Office Visit Level 4 Est 12366 Extracted from:Title: General Surgery Clinic Note Author: [...] understanding. Ordered: Office Visit Level 4 Est 43095 2. P endulous breast Bilateral. Will refer back to Plastics Clinic for further evaluation and treatment. Ordered: Office Visit Level 4 Est 45951 3. B ilateral foot pain Chronic. Will get bilateral foot xrays and will refer patient to Podiatry Clinic. patient is aware that her weight is a contributing factor. [place], [employer], [employer] Ordered: Office Visit Level 4 Est 69154 XR Foot 2 Views Bilateral Orders: lidocaine [...] Right ? L eft Procerus midline 5 Student Dean 5 units ? 5 units Frontalis 5 [...] Date: 12/03/2017 15:00:00 PDT [place] Migraine 09227 Office Visit Level 2 Est 29292 Extracted from:Title: Clinical Pharmacy Note Bariatric Pathway [...] decreased. Recommend using calcium citrate. o M [facility] patients who require medication for [...] Ordered: Medication Therapy Each Additional 15 Min 03851 Medication Therapy Initial 15 Min New Patient 60089 Extracted from:Title: Neurology Office Visit Note Author: [...] spent 21 minutes of my 40 minutes [id number] with the patient discussing the examination, therapy, [...] # 30 tabs, 0 total refill(s), 08/20/2017, [facility] pharmacy dispense (Rx) [Not filled] XR Calcaneous Left 01/18/[address] [place] [address] Functional Status Combined list of recent functional and cognitive assessments recorded at [facility] [place] Functional [place] Measurement (FIM) Scale: 1 = Total Assistance (Subject = 0% +), 2 = Maximal Assistance (Subject = 25% +), 3 = Moderate Assistance (Subject = 50% +), 4 = Minimal Assistance (Subject = 75% +), 5 = Supervision, 6 = Modified [place] (Device), 7 = Complete [place] (Timely, Safely). Assessment Date/Time Source Assessment Type Assessment Skill Assessment Score Assessment Details FUNCTIONAL 12/16/17 Home Dietary Supplements Captured Yes
--- OUTSIDE RECORDS SUMMARY | 2025-01-18 14:20 | XMS_ITS | Data Portability ---
Author Organization [facility] ADMIN Address [address] [place] [id number] Assessment Encounter Date Assessment Date Assessment LastModified by Organization Details LastModified Time 06/23/2024 06/23/2024 Ms. Macias was referred by Dr. Velez (neurology) for management of chronic migraines. She denies DM, history of infection, or anti-coagulan t use. [email or web address] Not available 06/23/2024 17:51:54 Plan of Treatment Reminders Order Date Submit Date Provider Last Modified By Organization Details Last Modified Time Details Appointments None recorded. Lab vitamin D, 25-hydroxy, total, serum 2023 024 MARYAM [facility], [address], [address], [place], [address], 4 20:39:28 CBC w/ auto diff 2023 024 MARYAM [facility], [address], [address], [place], [address], 4 20:39:24 thiamine, QN, blood 2023 024 MARYAM [facility], [address], [address], [place], [address], 4 20:39:29 prealbumin, serum 2023 024 MARYAM [facility], [address], [address], [place], [address], 4 20:39:33 copper, serum or plasma 2023 024 MARYAM [facility], [address], [address], [place], [address], 4 20:39:31 selenium, quantitativ e, blood 2023 024 MARYAM [facility], [address], [address], [place], [address], 4 20:39:33 zinc, serum or plasma 2023 024 MARYAM [facility], [address], [address], [place], [address], 4 20:39:32 CMP, serum or plasma 2023 024 MARYAM [facility], [address], [address], [place], [address], 4 20:39:25 iron + TIBC + ferritin, serum 2023 024 MARYAM [facility], [address], [address], [place], [address], 4 20:39:22 folate, serum 2023 024 MARYAM [facility], [address], [address], [place], [address], 4 20:39:27 vitamin E, serum 2023 024 MARYAM [facility], [address], [address], [place], [address], 4 20:39:26 vitamin A (retinol), serum 2023 024 MARYAM [facility], [address], [address], [place], [address], 4 20:39:28 TSH + free T4, serum 2023 024 MARYAM [facility], [address], [address], [place], [address], 4 20:39:23 methylmalon ate, QN, serum or plasma 2023 024 MARYAM [facility], [address], [address], [place], [address], 4 20:39:30 Referral None recorded. Procedures chemodenerv ation of muscle(s); muscle(s) innervated by facial, trigeminal, cervical spinal and accessory nerves, bilateral (PROC) - 40089, Botox injections for migraines - 155 units 2023 024 [email or web address] Not available 5 11:34:23 Surgeries esophagogas troduodenos copy (SURG) 2023 024 [email or web address] Mia Landaverde MD, [address], [address], [place], [address], 4 11:36:46 Imaging RF, upper gastrointes tinal tract + small bowel, w/ contrast PO 2023 024 [facility] (Centralized Scheduling), [address], [place], [address], 4 13:11:31 Medication Orders Botox 200 unit injection 2023 024 [email or web address] Not available 4 10:31:07 Botox 200 unit injection 2023 024 [email or web address] Not available 4 10:09:04 Botox 200 unit injection 2023 024 [email or web address] Not available 4 11:28:34 thiamine HCl (vitamin B1) 100 mg/mL injection solution 2023 024 [email or web address] Not available 4 10:37:12 cyanocobala min (vit B-12) 1,000 mcg/mL injection solution 2023 024 [email or web address] Not available 4 10:35:04 Patient TargetsNo targets recorded. Patient Instructions Encounter Date Encounter Id Patient Instructions Last Modified By Organization Details Last Modified Time 06/23/2024 [id number] I have discussed in great detail our [...] __ __ __ __ __ _ JACQUI: [id number] I have reviewed patient's JACQUI report prior to prescribing Schedule II, III, and IV medications that require review by law. [email or web address] Not available 06/23/2024 17:53:22 Reason for Referral None Reported. Results Created Date Observation Date Name Description Value Unit Range Abnormal Flag Note LastModifiedBy Organization Detail LastModifiedTime 08/25/19 24 08/26/2023 FE+TI BC+FE R iron bind.cap.(TI BC) 340 ug/dL 250-45 0 Not Available [facility] ([facility]) [address] [place], [address], 08/31/2023 20:39:22 08/25/19 24 08/26/2023 FE+TI BC+FE R UIBC 323 ug/dL 131-42 5 Not Available [facility] ([facility]) [address] [place], [address], 08/31/2023 20:39:22 08/25/19 24 08/26/2023 FE+TI BC+FE R iron 17 ug/dL 27-159 below low normal Not Available [facility] ([facility]) [address] [place], [address], 08/31/2023 20:39:22 08/25/19 24 08/26/2023 FE+TI BC+FE R iron saturation 5 % 15-55 alert low Not Available [facility] ([facility]) [address] [place], [address], 08/31/2023 20:39:22 08/25/19 24 08/26/2023 FE+TI BC+FE R ferritin 19 NG/mL 15-150 Not Available [facility] ([facility]) [address] [place], [address], 08/31/2023 20:39:22 08/25/19 24 08/26/2023 TSH+F REE T4 TSH 1.120 uIU/m L 0.450- 4.500 Not Available [facility] ([facility]) [address] [facility], [place], [address], 08/31/2023 20:39:23 08/25/19 24 08/26/2023 TSH+F REE T4 T4,free(dire ct) 1.10 NG/dL 0.82-1 .77 Not Available [facility] ([facility]) [address] [place], [address], 08/31/2023 20:39:23 08/25/19 24 08/26/2023 CBC WITH DIFFE RENTI AL/PL ATELE T WBC 7.8 x10e3 /uL 3.4-10 .8 Not Available [facility] ([facility]) [address] [place], [address], 08/31/2023 20:39:24 08/25/19 24 08/26/2023 CBC WITH DIFFE RENTI AL/PL ATELE T RBC 4.40 x10e6 /uL 3.77-5 .28 Not Available [facility] ([facility]) [address] [place], [address], 08/31/2023 20:39:24 08/25/19 24 08/26/2023 CBC WITH DIFFE RENTI AL/PL ATELE T hemoglobin 10.6 g/dL 11.1-1 5.9 below low normal Not Available [facility] ([facility]) [address] [facility], [place], [address], 08/31/2023 20:39:24 08/25/19 24 08/26/2023 CBC WITH DIFFE RENTI AL/PL ATELE T hematocrit 34.5 % 34.0-4 6.6 Not Available [facility] ([facility]) [address] [facility], [place], [address], 08/31/2023 20:39:24 08/25/19 24 08/26/2023 CBC WITH DIFFE RENTI AL/PL ATELE T MCV 78 fL 79-97 below low normal Not Available [facility] ([facility]) [address] [facility], [place], [address], 08/31/2023 20:39:24 08/25/19 24 08/26/2023 CBC WITH DIFFE RENTI AL/PL ATELE T MCH 24.1 pg 26.6-3 3.0 below low normal Not Available [facility] ([facility]) [address] [place], [address], 08/31/2023 20:39:24 08/25/19 24 08/26/2023 CBC WITH DIFFE RENTI AL/PL ATELE T MCHC 30.7 g/dL 31.5-3 5.7 below low normal Not Available [facility] ([facility]) [address] [place], [address], 08/31/2023 20:39:24 08/25/19 24 08/26/2023 CBC WITH DIFFE RENTI AL/PL ATELE T RDW 16.1 % 11.7-1 5.4 above high normal Not Available [facility] ([facility]) [address] [place], [address], 08/31/2023 20:39:24 08/25/19 24 08/26/2023 CBC WITH DIFFE RENTI AL/PL ATELE T platelets 263 x10e3 /uL 150-45 0 Not Available [facility] ([facility]) [address] [facility], [place], [address], 08/31/2023 20:39:24 08/25/19 24 08/26/2023 CBC WITH DIFFE RENTI AL/PL ATELE T neutrophils 48 % not estab. Not Available [facility] ([facility]) [address] [facility], [place], [address], 08/31/2023 20:39:24 08/25/19 24 08/26/2023 CBC WITH DIFFE RENTI AL/PL ATELE T lymphs 30 % not estab. Not Available [facility] ([facility]) [address] [facility], [place], [address], 08/31/2023 20:39:24 08/25/19 24 08/26/2023 CBC WITH DIFFE RENTI AL/PL ATELE T monocytes 7 % not estab. Not Available [facility] ([facility]) [address] [facility], [place], [address], 08/31/2023 20:39:24 08/25/19 24 08/26/2023 CBC WITH DIFFE RENTI AL/PL ATELE T eos 14 % not estab. Not Available [facility] ([facility]) [address] [facility], [place], [address], 08/31/2023 20:39:24 08/25/19 24 08/26/2023 CBC WITH DIFFE RENTI AL/PL ATELE T basos 1 % not estab. Not Available [facility] (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) [address] [facility], [place], [address], 08/31/2023 20:39:24 08/25/19 24 08/26/2023 CBC WITH DIFFE RENTI AL/PL ATELE T neutrophils (absolute) 3.9 x10e3 /uL 1.4-7. 0 Not Available [facility] ([facility]) [address] [facility], [place], [address], 08/31/2023 20:39:24 08/25/19 24 08/26/2023 CBC WITH DIFFE RENTI AL/PL ATELE T lymphs (absolute) 2.3 x10e3 /uL 0.7-3. 1 Not Available [facility] ([facility]) [address] [facility], [place], [address], 08/31/2023 20:39:24 08/25/19 24 08/26/2023 CBC WITH DIFFE RENTI AL/PL ATELE T monocytes(ab solute) 0.5 x10e3 /uL 0.1-0. 9 Not Available [facility] ([facility]) [address] [facility], [place], [address], 08/31/2023 20:39:24 08/25/19 24 08/26/2023 CBC WITH DIFFE RENTI AL/PL ATELE T eos (absolute) 1.1 x10e3 /uL 0.0-0. 4 above high normal Not Available [facility] ([facility]) [address] [facility], [place], [address], 08/31/2023 20:39:24 08/25/19 24 08/26/2023 CBC WITH DIFFE RENTI AL/PL ATELE T baso (absolute) 0.1 x10e3 /uL 0.0-0. 2 Not Available [facility] ([facility]) [address] [place], [address], 08/31/2023 20:39:24 08/25/19 24 08/26/2023 CBC WITH DIFFE RENTI AL/PL ATELE T immature granulocytes 0 % not estab. Not Available [facility] ([facility]) [address] [facility], [place], [address], 08/31/2023 20:39:24 08/25/19 24 08/26/2023 CBC WITH DIFFE RENTI AL/PL ATELE T immature grans (abs) 0.0 x10e3 /uL 0.0-0. 1 Not Available [facility] (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) [address] [facility], [place], [address], 08/31/2023 20:39:24 08/25/19 24 08/26/2023 COMP. METAB OLIC PANEL (14) glucose 109 mg/dL 70-99 above high normal Not Available [facility] ([facility]) [address] [facility], [place], [address], 08/31/2023 20:39:25 08/25/19 24 08/26/2023 COMP. METAB OLIC PANEL (14) BUN 10 mg/dL 6-20 Not Available [facility] ([facility]) [address] [facility], [place], [address], 08/31/2023 20:39:25 08/25/19 24 08/26/2023 COMP. METAB OLIC PANEL (14) creatinine 0.92 mg/dL 0.57-1 .00 Not Available [facility] ([facility]) [address] [facility], [place], [address], 08/31/2023 20:39:25 08/25/19 24 08/26/2023 COMP. METAB OLIC PANEL (14) eGFR 81 mL/mi n/1.7 3 >59 Not Available [facility] ([facility]) [address] [facility], [place], [address], 08/31/2023 20:39:25 08/25/19 24 08/26/2023 COMP. METAB OLIC PANEL (14) BUN/creatini ne ratio 11 9-23 Not Available [facility] ([facility]) [address] [facility], [place], [address], 08/31/2023 20:39:25 08/25/19 24 08/26/2023 COMP. METAB OLIC PANEL (14) sodium 144 mmol/ L 134-14 4 Not Available [facility] ([facility]) [address] [facility], [place], [address], 08/31/2023 20:39:25 08/25/19 24 08/26/2023 COMP. METAB OLIC PANEL (14) potassium 4.2 mmol/ L 3.5-5. 2 Not Available [facility] ([facility]) [address] [facility], [place], [address], 08/31/2023 20:39:25 08/25/19 24 08/26/2023 COMP. METAB OLIC PANEL (14) chloride 103 mmol/ L 96-106 Not Available [facility] ([facility]) [address] [facility], [place], [address], 08/31/2023 20:39:25 08/25/19 24 08/26/2023 COMP. METAB OLIC PANEL (14) carbon dioxide, total 22 mmol/ L 20-29 Not Available [facility] ([facility]) [address] [facility], [place], [address], 08/31/2023 20:39:25 08/25/19 24 08/26/2023 COMP. METAB OLIC PANEL (14) calcium 9.1 mg/dL 8.7-10 .2 Not Available [facility] ([facility]) [address] [place], [address], 08/31/2023 20:39:25 08/25/19 24 08/26/2023 COMP. METAB OLIC PANEL (14) protein, total 7.1 g/dL 6.0-8. 5 Not Available [facility] ([facility]) [address] [facility], [place], [address], 08/31/2023 20:39:25 08/25/19 24 08/26/2023 COMP. METAB OLIC PANEL (14) albumin 4.3 g/dL 3.9-4. 9 Not Available [facility] ([facility]) [address] [facility], [place], [address], 08/31/2023 20:39:25 08/25/19 24 08/26/2023 COMP. METAB OLIC PANEL (14) globulin, total 2.8 g/dL 1.5-4. 5 Not Available [facility] ([facility]) [address] [place], [address], 08/31/2023 20:39:25 08/25/19 24 08/26/2023 COMP. METAB OLIC PANEL (14) A/G ratio 1.5 1.2-2. 2 Not Available [facility] ([facility]) [address] [place], [address], 08/31/2023 20:39:25 08/25/19 24 08/26/2023 COMP. METAB OLIC PANEL (14) bilirubin, total 0.2 mg/dL 0.0-1. 2 Not Available [facility] ([facility]) [address] [place], [address], 08/31/2023 20:39:25 08/25/19 24 08/26/2023 COMP. METAB OLIC PANEL (14) alkaline phosphatase 116 IU/L 44-121 Not Available [facility] ([facility]) [address] [place], [address], 08/31/2023 20:39:25 08/25/19 24 08/26/2023 COMP. METAB OLIC PANEL (14) AST (SGOT) 22 IU/L 0-40 Not Available [facility] ([facility]) [address] [place], [address], 08/31/2023 20:39:25 08/25/19 24 08/26/2023 COMP. METAB OLIC PANEL (14) ALT (SGPT) 12 IU/L 0-32 Not Available [facility] ([facility]) [address] [place], [address], 08/31/2023 20:39:25 08/25/19 24 08/30/2023 VITAM IN E vitamin E(alpha tocopherol) 8.0 mg/L 5.9-19 .4 Not Available [facility] ([facility]) [address] [facility], [place], [address], 08/31/2023 20:39:26 08/25/19 24 08/30/2023 VITAM IN [...] E defic ient. Not Available [facility] ([facility]) [address] [place], [address], 08/31/2023 20:39:26 08/25/19 24 08/26/2023 FOLAT E (FOLI C ACID) , SERUM folate (folic acid), serum 13.0 NG/mL >3.0 A serum folat e francia ntrat ion of less than 3.1 ng/mL is consi dered to repre sent clini omar defic iency . Not Available [facility] ([facility]) [address] [facility], [place], [address], 08/31/2023 20:39:27 08/25/19 24 08/30/2023 VITAM IN [...] Admin istra tion. Not Available [facility] ([facility]) [address] [facility], [place], [address], 08/31/2023 20:39:28 08/25/19 24 08/26/2023 VITAM IN [...] Ada vieira [place]: [facility] . 2. Luis Carlos xiao MF, Binraffaele ey [place], Belkis off-F errar i NEVAREZ, et al. Evalu ation , treat ment, and preve ntion of vitam in D defic iency : an Endoc rine Socie ty clini omar pract ice guide line. JCEM. 2010; 96(7) :1911 -30. Not Available [facility] ([facility]) [address] [facility], [place], [address], 08/31/2023 20:39:28 08/25/19 24 08/29/2023 VITAM IN B1 (THIA MINE) , BLOOD vit. B1, whole blood 104.3 nmol/ L 66.5-2 00.0 Not Available [facility] ([facility]) [address] [place], [address], 08/31/2023 20:39:29 08/25/19 24 08/31/2023 METHY LMALO YVETTE ACID, SERUM methylmaloni c acid, serum 327 nmol/ L 0-378 Not Available [facility] ([facility]) [address] [facility], [place], [address], 08/31/2023 20:39:30 08/25/19 24 08/27/2023 COPPE R, SERUM OR PLASM A copper, serum or plasma 146 ug/dL 80-158 Detec tion Limit = 5 Not Available [facility] ([facility]) [address] [place], [address], 08/31/2023 20:39:31 08/25/19 24 08/27/2023 ZINC, PLASM A OR SERUM zinc, plasma or serum 73 ug/dL 44-115 Detec tion Limit = 5 Not Available [facility] ([facility]) [address] [facility], [place], [address], 08/31/2023 20:39:32 08/25/19 24 08/26/2023 PREAL BUMIN prealbumin 12 mg/dL 14-35 below low normal Not Available [facility] ([facility]) [address] [facility], [place], [address], 08/31/2023 20:39:32 08/25/19 24 08/28/2023 SELEN IUM, BLOOD selenium, blood 161 ug/L 100-34 0 Detec tion Limit = 10 Not Available [facility] ([facility]) [address] [facility], [place], [address], 08/31/2023 20:39:33 Result Notes None recorded. Problems Name Problem SNOMED Code Status Onset Date Resolution Date Notes Provider Name and Address Organization Details Recorded Time Anxiety 21836909 Active 2023 Carline Beardswort h null, [place] - [facility] [place] & [place] 4 14:56:25 Irritable bowel syndrome 70037336 Active 2023 [place] Beard[place] h [place], [place] [facility] [place] 14:56:37 Malignant neoplastic disease 893970792 Active 2023 [place] Beard[place], [place] [facility] [place] 14:56:45 Fibromyalg ia 174090794 Active 2023 [place] Beard[place], [place] [facility] [place] & [place] 4 14:57:44 Migraine 04193602 Active 2023 [place] Beard[place], [place] [facility] [place] 14:57:51 Hyperlipid emia 46449157 Active 2023 [place] Beard[place], [place] [facility] [place] & [place] 4 14:57:57 Depressive disorder 55818112 Active 2023 [place] Beard[place], [place] [facility] [place] 4 14:58:03 Sleep apnea 81892601 Active 2023 [place] Beard[place], [place] [facility] [place] 4 14:58:21 Arthritis 6108502 Active 2023 [place] Beard[place] [facility] [place] 4 14:58:26 Osteoporos is 56149679 Active 2023 [place] Beard[place] [facility] [place] 4 14:58:35 Gastroesop hageal reflux disease 309963703 Active 2023 [place] Beard[place], [place] [facility] [place] 4 14:58:40 Chronic migraine without aura 3351227208677 05 Active 2023 Milli Walkerkins [place], [place] [facility] [place] & [place] 4 17:49:42 Episodic migraine 6968187039303 06 Active 2023 Milli Cornejo null, [place] [facility] [place] & [place] 4 17:49:50 Headache 20086980 Active 2023 Milli Cornejo null, [place] [facility] [place] & [place] 4 17:49:57 Chronic intractabl e migraine without aura 6876348581551 05 Active 2021 Vivi Velez, DO [address] [facility], [place], [address] , [place] - [facility] - [place] & [place] 2 10:20:51 History of bypass of stomach 078952092 Active 2022 GIA Wright [address] , [place], [address] , [place] [facility] [place] & [place] 3 13:58:14 Iron deficiency 65695607 Active 2022 GIA Wright [address], [place], [address] , [place] [facility] [place] & [place] 3 13:58:16 Vitamin D deficiency 90356899 Active 2022 GIA Wright [address], [place], [address] , [place] [facility] [place] & [place] 3 13:58:17 Gastrointe stinal hemorrhage 71377853 Active Breerobyn Bautista null, [place] - [facility] - [facility] & [place] 4 10:30:39 Problem Notes None recorded. Procedures Surgical History Date Name Laterality Status Provider Name and Address Organization Details Recorded Time 2023 ESOPHAGOGASTRODUODENOSCOPY (SURG) completed Kelli Gray [place] - [facility] - [place] & [place] 4 11:31:36 2020 repair of tendo achilles completed Bree Dalla [place] - [facility] - [place] & [place] 2 16:28:15 2020 Gastric Bypass completed Bree Dalla [place] - [facility] [place] & [place] 2 16:27:48 2018 ankle reconstruction completed Bree Dalla [place] - [facility] - [place] & [place] 2 16:27:01 2015 Lumbar Spine Surgery completed Bree Dalla [place] - [facility] - [place] & [place] 2 16:21:33 EGD completed Jan Maldonado-Sindhu lashon [place] - [facility] - [place] & [place] 3 10:36:17 Total hysterectomy completed Bree Dalla [place] - [facility] - [place] & [place] 2 16:20:22 partial fasciectomy of plantar fascia completed Bree Dalla [place] - [facility] - [place] & [place] 2 16:20:47 Knee Surgery completed Bree Dalla [place] - [facility] - [place] & [place] 2 16:21:04 exploratory laparotomy completed Earlene Allena [place] - [facility] - [place] & [place] 2 16:21:59 Transfusion bld/bld compnt completed Bree Dalla [place] - [facility] [place] & [place] 2 16:26:38 Cholecystectomy completed Bree Dalla [place] - [facility] - [place] & [place] 2 10:18:00 Imaging Results None recorded. Procedure Notes None recorded. Medical Equipment None Reported. Allergies Allergen ID Allergen Name Allergen Category Reaction Reaction Severity Criticality Documentation Date Start Date Code Code System Note Provider Name and Address Organization Details Recorded Time 175512 Non-stero idal anti-infl ammatory agent (product) medicatio n Not available Not available Not available 02/26/2024 37012 005 SNOMED Other react ions and sever ities : 'Adve rse react ion to subst ance' . Bree mcelroy, ANDREY - [facility] - [place] & [place] 4 10:32:00 968906 hydromorp eladio medicatio n rash severe Not available 02/26/2024 3423 RxNorm Bree mcelroy, ANDREY - [facility] - [place] & [place] 4 10:32:00 804032 ketorolac medicatio n rash Not available Not available 02/26/2024 25101 RxNorm Bree mcelroy, ANDREY - [facility] - [place] & [place] 4 10:32:00 791072 Milk (substan e) food,medi cation Not available Not available Not available 06/23/2024 89908 002 SNOMED Carline mcelroy, [place] - [facility] & [place] 4 14:55:40 Medications Name Sig Start Date [...] Updated DateTime 4 175.26 cm 25.7 kg/m2 54134.0 7 g 90 /min 98.3 [degF] 110 mm[Hg] 70 mm[Hg] Abby Zhang BALDERAS - [place] - [place] & [place] 4 14:45:58 Date Recorded Body height Body mass index (BMI) Body weight Heart rate Systolic blood pressure Diastolic blood pressure Provider Name and Address Organization Details Last Updated DateTime 4 175.26 cm 26.2 kg/m2 86653.5 7 g 80 /min 107 mm[Hg] 79 mm[Hg] [facility] & [place] 4 11:29:00 Date Recorded Body height Body mass index (BMI) Body weight Heart rate Systolic blood pressure Diastolic blood pressure Provider Name and Address Organization Details Last Updated DateTime 4 175.26 cm 24.6 kg/m2 20401.1 3 g 81 /min 122 mm[Hg] 80 mm[Hg] Bree BALDERAS [facility] & [place] 4 10:10:48 Date Recorded Body height Body mass index (BMI) Body weight Heart rate Systolic blood pressure Diastolic blood pressure Provider Name and Address Organization Details Last Updated DateTime 4 175.26 cm 20.7 kg/m2 05136.9 3 g 75 /min 110 mm[Hg] 68 mm[Hg] Bree BALDERAS [facility] & [place] 4 10:38:55 Date Recorded Body height Body mass index (BMI) Body weight Body temperature Oxygen saturation Oxygen saturation in Arterial blood by Pulse oximetry Heart rate Systolic blood pressure Diastolic blood pressure Provider Name and Address Organization Details Last Updated DateTime 4 175.26 cm 19.9 kg/m2 69807.9 7 g 97.1 [degF] 99 % 99 % 83 /min 121 mm[Hg] 80 mm[Hg] [facility] & [place] 4 14:54:56 Social History Question Answer Notes LastModified by Organizat ion Details LastModified Time Tobacco Smoking Status Former Smoker no tobacco use x 7yr, currently daily mariuana use GIA Wright [address] , [place], [address], [facility] & [place] 09/10/2022 13:43:16 Do You Have An Advance [...] anxious, or unable to sleep at night)? [id number] Information not available 08/29/2022 Family History Relationship Description Onset Age of this Age Resolved Age Notes LastModified by Organization Details LastModified Time Mother Malignant tumor of breast [email or web address] Not available 02/2022 08:21:12 Mother Allergy pt. added direct ly (05/22) [email or web address] Not available 05/22/2022 12:36:00 Father Malignant tumor of kidney [email or web address] Not available 02/2022 08:21:12 Father Disorder of thyroid gland [email or web address] Not available 2021 16:14:17 Father Malignant neoplastic disease pancre as ldalla Not available 08/28/2023 11:32:59 Father Carcinoma of urinary bladder ldalla Not available 2023 11:33:16 Maternal Grandfather Malignant neoplastic disease ldalla Not available 2023 11:32:59 Notes:endometrial cancer Medical History Condition Response Other Y Clotting Disorder Y Spine Problems Y Deep Vein Thrombosis Y Obstructive Sleep Apnea Y Anxiety Disorder Y Arthritis Y Blood Clot Y Cancer Y High Cholesterol Y Psychiatric/Mental Health Condition Y Rheumatoid Arthritis Y Headaches Y Fibromyalgia Y Hospitalizations Y Migraines Y GI Problems Y Osteoporosis/Osteopenia Y Anemia Y Neurological Problems Y Back Problems Y Reflux/GERD Y Heart Disease Gynecological History Statement/Question Response Abnormal Pap N Sexually Active? N Obstetrics History GPAL:G 0 P 0 0 0 0 Immunizations Vaccine Type Date Status Note Provider Nam e and Address Organization Details Recorded Time influenza, unspecified formulation 06/03/2023 completed ANDREY Burton [facility] & [place] 08/25/2023 14:44:46 Past Encounters Encounter ID Performer Location Encounter Start Date Encounter Closed Date Diagnosis/Indication Diagnosis SNOMED-CT Code Diagnosis ICD10 Code Diagnosis Note [id number] Vivi VelezDO [facility] [address] [facility],[address] [place] [address] 05/20/2022 10:08:09 05/20/2022 10:40:41 Chronic intractable migraine without aura [id number] 40447 G43.719 She has done very well on the combinatio n of botox and ajovy but due to insurance change can no longer stay on this dual therapies. She will discontinu e the ajovy and I will have the office seek a new approval to continue with her botox treatments .In the meantime she is asked to keep a headache log. [id number] Vivi [facility] [address] [facility] [facility],[address] [place] [address] 05/23/2022 08:19:26 05/23/2022 08:47:35 Chronic intractable migraine without aura [id number] 85448 G43.719 [id number] [facility] [address] [facility],[address] [place] [address] 08/29/2022 08:21:08 08/29/2022 08:56:01 Chronic intractable migraine without aura [id number] 58303 G43.719 [id number] GIA Wright [facility] [address] [place] [address] 09/10/2022 13:07:45 09/10/2022 14:53:51 Gastrojejunal ulcer 36809812 K28.[address] Fitz Velez [...] c ulcer. History of bypass of stomach 347742932 Z98.84 Long discussion today regarding need for routine follow-up and vitamin checks. patient voices understand ing of needed routine follow-up and agrees to be compliant with this. We are checking full bariatric panel today. Iron deficiency 15801440 E61.1 Vitamin D deficiency 347 60096 E55.9 History of gastrectomy 032986924 Z90.3 Patient is status post bariatric surgery and at increased risk for vitamin deficienci es and malnutriti on. Bariatric vitamin panel ordered today. Patient will be contacted to correct any vitamin deficienci es. [id number] DO SHANNA Diehl [facility] Neu[facility] [address] [facility],[address] [place] [address] 11/28/2022 08:14:33 11/28/2022 08:55:55 Chronic intractable migraine without aura 5912698902 02575 G43.719 Chronic condition that is stable. She is given Ajovy samples today. [id number] DO SHANNA Diehl [facility] [address] [facility],[address] [place] [address] 02/27/2023 11:05:14 02/27/2023 11:33:40 Chronic intractable migraine without aura [id number] 82565 G43.719 [id number] Vivi Velez DO [facility] [address] [facility] [place] [address] 05/29/2023 11:13:34 05/29/2023 11:43:52 Chronic intractable migraine without aura [id number] 03359 G43.719 [id number] GIA Wright [facility] [address] [facility] [address] [place] [address] 08/25/2023 14:29:17 08/25/2023 15:27:36 Vomiting 367051694 R11.10 Discussed previous endoscopy September 2022 showing [...] GI have been resulted. Nutritiona lly compromised 509527446 E63.9 Discussed need for increased nutritiona l intake. Advised patient attempt p.o. stage I/2 as tolerated with focus on 70 g of protein and a 1000 calories. We will have dietitian meet with patient today for additional dietary support. History of gastrectomy 564416390 Z90.3 Patient is status post bariatric surgery and at increased risk for vitamin deficienci es and malnutriti on. Bariatric vitamin panel ordered today. Patient will be contacted to correct any vitamin deficienci es. Vitamin D deficiency 347 51005 E55.9 Marijuana user [id number] F12.90 [id number] RUSSELL BREWSTER BS, RDN, LD [facility] [address] [facility] [address] [place] [address] 08/25/2023 15:31:07 08/25/2023 16:02:52 History of bypass of stomach 326046749 Z98.84 EGD ordered today, hx of jejunal anastomoti c ulcer [id number] DO SHANNA Diehl [facility] [address] [facility],[address] [place] [address] 08/28/2023 11:21:49 08/28/2023 11:48:46 Chronic intractable migraine without aura 8566430152 72302 G43.146 [id number] Vivi Velez DO [facility] [address] [facility],[address] [place] [address] 11/27/2023 10:00:13 11/27/2023 10:35:46 Chronic intractable migraine without aura [id number] 89264 G43.719 She is given a sample of Ajovy todayAjovy quantity: 1, Lot #: [id number], Exp: 06/17/2025 [id number] Vivi Velez DO [facility] [address] [facility],[address] [place] [address] 02/26/2024 10:25:30 02/26/2024 11:08:39 Chronic intractable migraine without aura 2746101819 37693 G43.719 She is given a sample of Ajovy todayAjovy quantity: 2, Lot #: [id number] , Exp: 12/2025 [id number] Ajit Grande MD [facility] [address] [place] [address] 06/23/2024 14:31:23 06/23/2024 14:58:43 Chronic migraine without aura [id number] 82665 G43.709 - It appears that the intensity [...] patient for Botox injections . Episodic migraine 024743 3833 04102 G43.C1 Headache 16790134 R51.9 Health Concerns Section Related Observation LastModified by Organization Detai ls LastModified Time None Recorded Concern Status LastModified by Organization Details LastModified Time None Recorded Advance Directives Directive N: Payers Insurance Date Sequence Insurance Name Policy Number Policy Vaughn Covered Member ID Vaughn Member ID Guarantor Name 05/15/2022 1 [place] ( - PPO) Denilson Macias [id number] Alexei Macias 06/23/2024 1 FOR LIFE () Sandi Macias [id number] Alexei Macias 07/22/2024 1 [place] [place] ( - PPO) Denilson Macias [id number] Alexei Macias 07/19/2024 2 [facility] (MEDICAID HMO) Alexei Macias [id number] Alexei Macias 05/20/2022 3 [employer] - [employer] () Denilson Macias [id number] Alexei Macias 06/25/2022 1 UNSPECIFIED REMIT PAYOR Alexei Macias 06/23/2024 1 [employer] () Alexei Macias [id number] Alexei Macias 06/10/2023 1 [employer] ( - MEDICARE SUPPLEMENT) Denilson Macias [id number] Alexei Macias 03/16/2024 1 UNSPECIFIED REMIT PAYOR Alexei Macias 07/09/2020 SLIDING FEE SCHEDULE - DISCOUNT Alexei Macias 07/09/2020 SLIDING FEE SCHEDULE - DISCOUNT Alexei Macias 10/03/2021 1 [facility] () Denilson Macias [id number] Alexei Macias 06/23/2024 1 [employer] LIFE () Alexei Macias [id number] Alexei Macias Notes Date Note Type Note [...] Last labs approximately 2 weeks ago at [facility]. Past history: March 06 upper GI [...] office since GIA Wright [address], [place], [address], [facility] [place] 08/25/2023 15:42:54 08/25/2023 text/html RDN met w/ Alexei Macias who is s/p RNY (surgery date 2020) following their office visit regarding concern for recurring anastomotic ulcer. RDN reviewed diet stages 1 and 2 and advised ways to manage nausea. Pt expressed concerns that she is anorexic and also disclosed some concerns with memory issues. RDN scheduled pt to see psych in [facility] on Thursday to address these concerns. We [...] water RUSSELL BREWSTER BS, RDN, LD [address], [place], [address], [place] [facility] [place] [facility] [place] 08/25/2023 16:37:41 08/28/2023 text/html Vikash comes in [...] a migraine today. Vivi Velez, DO [address] [facility], [place], [address], [place] [facility] [place] [facility] [place] 08/28/2023 11:53:09 11/27/2023 text/html Vikash comes in [...] today. Vivi Velez, DO [address], [place], [address], [facility] [place] & [place] 11/27/2023 10:28:31 02/26/2024 text/html Alexei comes in [...] a migraine today. Vivi Velez, DO [address] [facility], [place], [address], [facility] - [place] & [place] 02/26/2024 12:14:39 06/23/2024 text/html Ms. Macias was [...] none Imaging/Studies: none Ajit Grande MD [address] [facility], [place], [address], [facility] [place] 06/24/2024 09:49:17 OBGyn Episode No OBEpisode recorded.
[2025-01-18 14:53] LABS: Basophils # 0.1 K/mm3 (0-0.2); Eosinophils # 0.5 Kmm3 (0.0-0.4); Eosinophils % 7.4 % (0.1-12.0); Hematocrit 39.7 % (37.0-47.0); Hemoglobin 12.5 g/dL (12.2-16.2); Immature Granulocytes # 0.02 10^3uL; Immature Granulocytes % 0.3 %; Lymphocytes # 2.5 K/mm3 (0.7-4.5); Lymphocytes % 40.5 % (10-50); Mean Corpuscular HGB Conc 31.5 g/dL (31.8-35.4); Mean Corpuscular Hemoglobin 25.8 pg (27.0-31.2); Mean Platelet Volume 10.4 fl (7.4-10.4); Monocytes # 0.6 K/mm3 (0.1-1.0); Monocytes % 9.4 % (1.7-9.3); Neutrophils # 2.5 K/mm3 (1.8-7.8); Neutrophils % 41.4 % (37.0-80.0); Nucleated Red Blood Cells # 0 10^3/uL; Nucleated Red Blood Cells % 0 %; Platelet Count 224 K/mm3 (142-424); Red Blood Count 4.84 M/mm3 (4.20-5.40); White Blood Count 6.1 K/mm3 (4.8-10.8)
[2025-01-18 15:24] LABS: Alanine Aminotransferase 12 U/L (12-78); Albumin Level 3.8 g/dl (3.5-5.0); Albumin/Globulin Ratio 1.3 (1.1-1.8); Alkaline Phosphatase 127 U/L (38-126); Anion Gap 9.5 mEq/L (5-15); Aspartate Amino Transferase 25 U/L (14-36); Bilirubin,Total 0.3 mg/dl (0.2-1.3); Blood Urea Nitrogen 12 mg/dl (7-17); Carbon Dioxide 32 mmol/L (22.0-30.0); Chloride 105 mmol/L (98-107); Chol/HDL Ratio 2.2 (1-3.5); Cholesterol 164 mg/dl (140-200); Estimated Glomerular Filt Rate 79 ml/min (>60); GFR (African American) 96 ML/MIN (>60); Globulin 2.9 g/dL (1.3-3.2); Glucose 82 mg/dl (74-100); HDL Cholesterol 73 mg/dl (40-60); Potassium 4.5 mmoL/L (3.5-5.1); Sodium 142 mmol/L (136-145); Total Protein,Serum 6.7 g/dl (6.3-8.2); Triglycerides 85 mg/dl (30-150); VLDL Cholesterol 17 mg/dL (0-40)
[2025-01-18 15:34] LABS: Direct LDL Cholesterol 62.56 mg/dL (100-129)
[2025-01-18 15:41] LABS: 25-OH Vitamin D, Total 42.6 ng/mL (30-100)
[2025-01-18 15:43] LABS: Free Thyroxine Index 2.4 ug/dL (5.93-13.13); T4 (Thyroxine) 8.4 ug/dl (5.53-11.0); Triiodothryronine (T3) Uptake 29 % (23.5-40.5)
[2025-01-18 15:56] LABS: Thyroid Stimulating Hormone 0.86 uIU/mL (0.465-4.68)
[2025-01-18 16:14] LABS: Vitamin B12 811 pg/mL (239-931)
== END 2025-01-18 23:59 | disposition home or self-care (01) ==
LOC: LAB 14:17
PROVIDERS: PCP Nurse Practitioner Family; Visit Provider Nurse Practitioner Obstetrics & Gynecology
DX: R53.83 Other fatigue (principal)
CPT/HCPCS: 36415; 80053; 80061; 82306; 82607; 84436; 84443; 84479; 85025

== ENCOUNTER 2025-01-27 09:10 | Day surgery (SDC) | payer OTHER, SELFPAY ==
[2025-01-27 09:20] VITALS: BP 107/66; PULSE 89; RESP 16; O2SAT 99; BMI 19.2
--- NOTE | 2025-01-27 09:37 | P.HP_ITS ---
History of Present Illness *Admission Date: 01/27/25 *Reason for visit:: Intrathecal refill; DDD *History of present illness: Same [facility] Disclaimer: The information contained in this section may have been updated after the patient was seen, as this information can be updated by other users. Medical History (Updated 01/27/25 @ 09:39 by Karen Gracia APRN) Chronic pain Encounter for routine gynecological examination Chronic upper abdominal pain Nausea vomiting and diarrhea Anxiety Psychiatric care Severe anxiety Peptic ulcer disease Edema Chronic low back pain Right shoulder pain Dizziness Atypical chest pain Nausea and vomiting Occult blood positive stool Atypical angina Diarrhea Abnormal result of cardiovascular function study Encounter for pre-operative cardiovascular clearance Abdominal pain Flu vaccine need Community acquired pneumonia Community acquired bacterial pneumonia Synovitis of right foot Morbid obesity with BMI of 40.0-44.9, adult Multiple joint pain Synovitis of left foot Metatarsus adductus of both feet Hypokalemia SHAUN (acute kidney injury) Class 3 severe obesity due to excess calories in adult Gastroenteritis Left ankle instability Metatarsus adductus of left foot Gastrocnemius equinus of left lower extremity Posterior tibial tendon dysfunction (PTTD) of left lower extremity Obesity Leukocytosis Acute renal insufficiency Hypokalemia Near syncope Gastroenteritis History of DVT (deep vein thrombosis) Palpitations Dizziness Ex-smoker Preoperative clearance Dyspnea Bilateral hip pain Chest pain Chest pain Pre-syncope Acute chest pain Acute upper GI bleed Headache Abdominal pain Exposure to hepatitis C Head ache Chronic nausea Chest pain Diarrhea Chest pain, non-cardiac Chronic headaches Right upper quadrant abdominal pain Tachycardia Shortness of breath Syncope LEONORA (obstructive sleep apnea) Elevated left ventricular end-diastolic pressure (LVEDP) Edema History of left heart catheterization SVT (supraventricular tachycardia) Pulmonary embolism Osteoarthritis Migraine HTN (hypertension) HLD (hyperlipidemia) Heart murmur GERD (gastroesophageal reflux disease) DVT (deep venous thrombosis) Afib Asthma Arrhythmia Anxiety History of pulmonary embolism Surgical History History of total abdominal hysterectomy Status post foot surgery History of bariatric surgery History of exploratory laparotomy History of cholecystectomy History of lumpectomy of left breast H/O knee surgery History of esophageal surgery H/O foot surgery Previous back surgery Family History Mother Family history of cancer Grandmother Family history of cancer Other Family history of hypertension Kidney disease Social History Smoking Status: Current every day smoker tobacco type: cigarettes packs per day: 4 second hand exposure: No alcohol intake: never substance use type: marijuana current occupational status: other Travel in the last 8 weeks?: None household members: spouse housing: house number of children: 0 current occupational exposures/hazards: No caffeine: No Have you lived/traveled outside US in past 30 days?: No Contact w/someone who lives/traveled outside US past 30 days?: No Exposure to someone with infectious disease in past 14 days?: No Do you have a fever (greater than 100.4 F or 38 C)?: No Have you tested positive for COVID-19?: No Exposed to someone with COVID-19 in past 14 days?: No Do you have a sore throat?: No Do you have a cough?: No Do you have any weakness?: No Do you have any diarrhea?: No Are you experiencing any unusual bleeding?: No Do you have any muscle aches/pain?: No Do you have any abdominal pain?: No Are you experiencing loss of taste or smell?: No Other Medical History Have you received the Flu Vaccine for this season: No Have you received the Pneumonia Vaccine: No Review of Systems Review of Systems Review of systems:: pertinent systems reviewed and negative unless documented below Review of systems (narrative): Review of Systems: General: No recent weight changes, no fever, no sleep disturbances Respiratory: No cough, no shortness of air, no recurring pulmonary infections Cardiovascular/peripheral vascular: No chest pain, no palpitations, no edema, no shortness of breath Gastrointestinal: No new onset incontinence, normal bowel movements reported Genitourinary: No new onset incontinence Musculoskeletal: Chronic back pain Psychiatric: [Normal mood/affect] Neurological: [Denies weakness in extremities], [denies balance issues] Meds Home Medications and Allergies Home Medications ?Medication ?Instructions ?Recorded ?Confirmed ?Type pregabalin 200 mg capsule 200 mg PO BID RLS 02/05/21 0 01/27/25 History hydroxyzine pamoate 50 mg capsule 50 mg PO Q4H PRN . 1 09/18/23 01/27/25 History quetiapine 100 mg tablet 100 mg PO HS 07/18/24 History linaclotide 145 mcg capsule 145 mcg PO DAILY #30 caps 08/31/24 01/27/25 Rx (Linzess) ferric carboxymaltose 50 mg 750 mg (15 mL) IV Q7D 2 do ses 11/02/24 01/27/25 Rx iron/mL intravenous solution (Injectafer) lorazepam 1 mg tablet 1 mg PO BID PRN abdominal pa in #60 12/05/24 01/27/25 Rx tabs estradiol 0.01% (0.1 mg/gram) 0.25 appful vaginal .twi ce weekly 01/10/25 01/27/25 Rx vaginal cream (Estrace) #42.5 grams New Prescriptions to Start Prescriptions: Allergies Allergy/AdvReac Type Severity Reaction Status Date / Time hydromorphone (From Dilaudid) Allergy Intermediate Unknown Verified 01/10/25 14:43 allergy reaction NSAIDS (Non-Steroidal Allergy Unknown Unknown Verified 01/10/25 14:43 Anti-Inflamma allergy reaction lactose AdvReac Mild Nausea Verified 01/10/25 14:43 cilantro Allergy Severe throat and Uncoded 01/10/25 14:43 tongue swells, hives on face Exam Data for Last 24 hours Vital signs and Labs for Last 24 Hours: Pulse Resp BP Pulse Ox O2 Del Method 89 16 107/66 L 99 Room Air 01/27/25 09:20 01/27/25 09:20 01/27/25 09:20 01/27/25 09:20 01/27/25 09:20 I & O for Last 24 hours: Intake & Output 01/24/25 01/25/25 01/26/25 01/27/25 23:59 23:59 23:59 23:59 Weight 130 lb Constitutional Constitutional: no acute distress *Routine HEENT Exam Head: Present normocephalic and atraumatic Eye: Present PERRL ENT: Present mucous membranes moist *Routine Neck Exam Neck: Present supple *Routine Respiratory Exam Respiratory: Present CTA bilaterally *Routine Cardiovascular Exam Cardiovascular: Present RRR *Routine Abdominal Exam Abdominal: Present soft *Routine Rectal Exam Rectal:: deferred *Routine Genitalia Exam Genitalia:: deferred Routine Back/Spine/Pelvis Exam Back/Spine: Present pain with flexion *Routine Skin Exam Skin: Present intact and warm *Routine Neurological Exam Neurological: Present alert and oriented X3 Routine Psychiatric Exam Psychiatric: Present normal affect and normal thought process Assessment and Plan *Assessment and plan (1) Chronic pain: Status: Acute Category: Medical Code(s): G89.29 - Other chronic pain Plan Patient has been instructed to contact the clinic with any concerns before the next appointment. Dr. Jung has reviewed this note and agrees with this plan of care. This note was dictated using voice recognition software and make contain errors or omissions. All injections are used with Lidocaine, Bupivacaine and dexamethasone. Occasionally urine drug screen is needed to verify patient's compliance with our office pain contract. This is ordered based off specific treatments related to chronic pain with the potential to abuse certain medications.
[2025-01-27 09:39] VITALS: BP 106/63; PULSE 99; RESP 18; O2SAT 98
--- NOTE | 2025-01-27 09:39 | EXP.PAIN.PRO ---
Procedure Date: 01/27/25 Time: 09:45 Anesthesiologist:: Karen Gracia APRN Complications:: None Pre-procedure Diagnosis:: Degenerative disc disease of lumbar spine, chronic pain syndrome, migraines Post-procedure Diagnosis:: Same Indications for Procedure:: Patient is a pleasant 39-year-old female who presents today for intrathecal refill and reprogram. Today she rates her pain a 6 out of 10. Patient denies any new falls or injuries. Patient is currently managed with morphine 2 mg/mL with a daily dose of 0.2897 mg/day. She denies any side effects. She is prescribed lorazepam and pregabalin from an outside provider. Her Dinesh has been reviewed and is appropriate. Physical Exam: General: Alert and oriented x3, no acute distress, pleasant and cooperative Lungs: Respirations even and unlabored, symmetrical chest expansion Eyes: PERRL Musculoskeletal: Flexion and extension of lumbar [spine] somewhat guarded secondary to pain, [antalgic gait noted] Neurological: Speech clear, no gross sensory deficit Procedure Details:: Informed consent was obtained and the risk and benefits of the procedure were explained to the patient. The patient had noninvasive monitoring placed including noninvasive blood pressure cuff and pulse oximeter. Patient's pump was interrogated. The area over the pump was cleansed with chlorhexidine as a cleansing solution. In sterile fashion the pump was accessed with a 22-gauge needle. Approximately 6.4 mls of the pump solution was removed and discarded appropriately. The pump was then refilled with 20 mL's of morphine 2 mg/mL. The needle was withdrawn and a bandage was placed over the puncture site. The infusion rate was reprogrammed and continued at the current dosage. The patient tolerated well with no complication. Plan and Disposition:: Patient tolerated the procedure well with no complications and was discharged neurologically intact. Patient will return to clinic on or before their next intrathecal refill date. We will see the patient back in the clinic at the next intrathecal refill. Patient has been instructed to contact the clinic with any concerns before the next appointment. Dr. Jung has reviewed this note and agrees with this plan of care. This note was dictated using voice recognition software and make contain errors or omissions. -- It Is medically necessary for this patient to continue to have their intrathecal pump refilled at regular intervals. This patient had an intrathecal pain pump implanted after meeting criteria of chronic intractable pain for greater than 3 months and failing conservative treatments. Patient has committed and been compliant to the treatment plan and all planned follow up care. Since implantation of the intrathecal pain pump, the patient has had decreased pain and been more functional. Oral medications have been reduced including intake of oral opioids. Patient continues to do well with intrathecal therapy with decrease in pain symptoms and increase in functional status. Stopping intrathecal medications can lead to life threatening withdrawal, seizures, cardiac arrest, severe pain, and possible . Pumps that are not refilled at regular intervals can be damages and cause and need for replacement. We continually titrate dose and concentration to optimize pain relief and function. We are limited in concentration for certain drugs to safely deliver medications through the pump and stay within the recommendations from the Polyanalgesic Consensus Committee Guidelines. Depending on dose and concentration these pumps may need to be refilled sooner than 3 months as we titrate. A UDS is needed to verify patient's compliance with our office pain contract. This is ordered based off specific treatments related to chronic pain with the potential to abuse certain medications.
[2025-01-27 09:51] VITALS: BP 101/62; PULSE 94; RESP 16; O2SAT 98
== END 2025-01-27 09:51 | disposition home or self-care (01) ==
PROVIDERS: PCP Nurse Practitioner Family; Visit Provider Nurse Practitioner Family
DX: Z45.1 Encounter for adjustment and management of infusion pump (principal); M51.369 Other intervertebral disc degeneration, lumbar region without mention of lumbar back pain or lower extremity pain; G89.4 Chronic pain syndrome; G43.909 Migraine, unspecified, not intractable, without status migrainosus; Z68.41 Body mass index [BMI] 40.0-44.9, adult; E66.813 Obesity, class 3; Z86.718 Personal history of other venous thrombosis and embolism; I10 Essential (primary) hypertension; E78.5 Hyperlipidemia, unspecified; G47.33 Obstructive sleep apnea (adult) (pediatric); K21.9 Gastro-esophageal reflux disease without esophagitis; I48.91 Unspecified atrial fibrillation; J45.909 Unspecified asthma, uncomplicated; Z86.711 Personal history of pulmonary embolism; Z98.84 Bariatric surgery status; F17.210 Nicotine dependence, cigarettes, uncomplicated; Z79.899 Other long term (current) drug therapy; Z88.5 Allergy status to narcotic agent; Z88.8 Allergy status to other drugs, medicaments and biological substances; Z88.6 Allergy status to analgesic agent; Z91.011 Allergy to milk products
CPT/HCPCS: 62370

== ENCOUNTER 2025-01-28 19:47 | Emergency (ER) | payer OTHER, SELFPAY ==
[2025-01-28] VITALS (9 sets, daily range): BP systolic 101–151; BP diastolic 68–100; PULSE 63–112; RESP 18–22; TEMP 36.9; O2SAT 96–100; BMI 18.8
--- OUTSIDE RECORDS SUMMARY | 2025-01-28 19:53 | XMS_ITS | Continuity of Care Document ---
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 Medication Details Route Status Patient Instructions Prescription Expires Prescription Number Last Dispense Date Ordering Provider Order Date Order Qty Source acetaminoph en 325 mg oral tablet 3 tabs, Oral, every 8 hr, X 10 days, # 100 tabs, 0 total refill(s ), Acute, 12/15/17 1:14:00 AM [facility], [facility] pharmacy dispense (Rx) Oral (given by mouth) Complet ed 12/15/20172017 100.0 0125A-A Harpreet ALBUTEROL SULFATE, 90 MCG, HFA AER AD, INHALATION ALBUTERO L SULFATE, 90 MCG, HFA AER AD, INHALATI ON Start Date: 05/22/17 Stop Date: 09/01/17 Status: Disconti silvia Repeat number: 1 Discont inued 09/01/20172017 No Facilit y Access Anaprox-DS 550 mg oral tablet 1 tabs, Oral, BID, # 60 tabs, 1 total refill(s ), Acute, 05/15/19 2:00:00 AM T, [facility] pharmacy dispense (Rx) Oral (given by mouth) Complet ed 05/15/20192018 60.0 0125C-A Harpreet Benadryl 25 mg oral capsule 1 cap, Oral, every day at bedtime, PRN insomnia , # 30 cap, 0 total refill(s ), Acute, 12/09/17 5:55:00 PM [facility], [facility] pharmacy dispense (Rx) Oral (given by mouth) Discont inued 12/09/2017 7 2017 30.0 0125C-A CEM Mullins buPROPion 200 mg/12 hours (SR) oral tablet, extended release 1 tabs, Oral, BID, # 60 tabs, 1 total refill(s ), [facility] Oral (given by mouth) Discont inued 12/16/2017 8 2017 60.0 1480C-M martha Collins buPROPion 200 mg/12 hours (SR) oral tablet, extended release buPROPio n 200 mg/12 hours (SR) oral tablet, extended release Start Date: 05/22/17 Stop Date: 09/30/17 Status: Linaonti silvia Repeat number: 1 Discont inued 09/30/20172017 No Facilit y Access calcium (as carbonate)- vitamin D 600 mg-400 intl units oral tablet calcium (as carbonat e)-vitam in D 600 mg-400 intl units oral tablet Start Date: 05/22/17 Stop Date: 12/09/17 Status: Disconti silvia Repeat number: 1 Discont inued 12/09/20172017 No Facilit y Access conjugated estrogens 0.625 mg/g vaginal cream with applicator conjugat ed estrogen s 0.625 mg/g vaginal cream with applicat or Start Date: 05/22/17 Status: Ordered Repeat number: 1 Ordered 2016 No Facilit y Access diclofenac 1% topical gel diclofen ac 1% topical gel Start Date: 05/22/17 Status: Ordered Repeat number: 1 Ordered 2016 No Facilit y Access DULoxetine 30 mg oral delayed release capsule See Instruct ions, 1 po daily for 7 - 14 days then 2 daily, # 60 cap, 1 total refill(s ), [facility] pharmacy dispense (Rx) Discont inued 12/09/2017 8 2017 60.0 1480C-M adigan Westby DULoxetine 30 mg oral delayed release capsule 1 cap, Oral, BID, 1 cap oral daily for 7 -14 days then two po daily, # 60 cap, 2 total refill(s ), [facility] (Rx) Oral (given by mouth) Ordered 8 2017 60.0 1480C-M adigan Westby ergocalcife rol 50,000 intl units (1.25 mg) oral capsule cap, Oral, 0 total refill(s ), [facility] Oral (given by mouth) Discont inued 09/01/20172017 0125C-A CEM Mullins Ferrous Sulfate (Ferosul Eq.) Tablet 325 mg Oral Ferrous Sulfate (Ferosul Eq.) Tablet 325 mg Oral Start Date: 05/22/17 Stop Date: 12/09/17 Status: Disconti silvia Repeat number: 1 Discont inued 12/09/20172017 No Facilit y Access folic acid 1 mg oral tablet folic acid 1 mg oral tablet Start Date: 05/22/17 Stop Date: 09/01/17 Status: Iandavid vega Repeat number: 1 Discont inued 09/01/20172017 No Facilit y Access gabapentin 600 mg oral tablet 1 tabs, Oral, BID, 3 day coverage supply, # 6 tabs, 0 total refill(s ), Hard Stop, 09/01/17 11:00:46 AM [facility] pharmacy dispense (Rx) Oral (given by mouth) Complet ed 09/01/2017 8 2017 6.0 1480C-M martha Westby gabapentin 600 mg oral tablet 1 tabs, Oral, BID, 3 day coverage supply, # 180 tabs, 0 total refill(s ), [facility] pharmacy dispense (Rx) Oral (given by mouth) Discont inued 12/09/2017 8 2017 180.0 1480C-M martha Westby gabapentin 600 mg oral tablet gabapent in 600 mg oral tablet Start Date: 05/22/17 Stop Date: 08/27/17 Status: Mary vega Repeat number: 1 Discont inued 08/27/20172017 No Facilit y Access ibuprofen 600 mg oral tablet 1 tabs, Oral, every 8 hr, X 10 days, # 30 tabs, 0 total refill(s ), Acute, 12/09/17 5:55:00 PM CD, [facility] pharmacy dispense (Rx) Oral (given by mouth) Discont inued 12/09/20172017 30.0 0125A-A CEM Mullins Icy Hot with Capsaicin 0.025% topical cream 1 appl, Topical, BID, X 14 days, # 20 g, 0 total refill(s ), Acute, [facility] pharmacy dispense (Rx) Topica l (on the skin) Complet ed 08/26/20172017 20.0 0125A-A Harpreet lidocaine 5% topical film 1 patches, Topical, Daily, # 30 patches, 0 total refill(s ), Alekseytendorcas [facility] pharmacy dispense (Rx) Topica l (on the skin) Discont inued 12/09/2017 8 2017 30.0 0125A-A Harpreet Lidoderm 5% topical film 1 patches, Topical, Daily, Leave on for up to 12 hours within a 24 hour period (12 hours on, 12 hours off), # 30 patches, 5 total refill(s ), Gabby [facility] pharmacy dispense (Rx) Topica l (on the skin) Ordered 8 2017 30.0 1485C-A HC McChord Lyrica 150 mg Cap 150 mg, Oral, BID, # 60 EA, 3 total refill(s ), Hard Stop Oral (given by mouth) Complet ed 10/12/2017 8 2017 60.0 Ambulat ory Pharmac y magnesium aspartate 615 mg (61 mg magnesium) oral delayed release tablet 2 tabs, Oral, BID, # 120 tabs, 0 total refill(s ), Gabby 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 10 mg oral tablet, disintegrat ing 1 tabs, Oral, Daily, PRN migraine headache , may repeat dose every 2 hours up to a maximum of 30 mg in 24 hours, # 6 tabs, 0 total refill(s ), Acute, 12/09/17 5:55:00 PM CDT [facility] pharmacy dispense (Rx) Oral (given by mouth) Discont inued 12/09/2017 7 2017 6.0 0125C-A Harpreet Naprosyn 250 mg oral tablet 1 tabs, Oral, BID, # 30 tabs, 0 total refill(s ), Acute, 08/20/17 2:00:00 AM [facility] pharmacy dispense (Rx) Oral (given by mouth) Complet ed 08/20/2017 7 2017 30.0 1485C-A HC El ondansetron 8 mg Tab-Dis 8 mg, # 30 EA, 3 total refill(s ), Hard Stop Discont inued 12/09/2017 8 2017 30.0 Ambulat ory Pharmac y pregabalin 150 mg oral capsule 1 cap, Oral, BID, # 60 cap, 3 total refill(s ), [facility] pharmacy dispense (Rx) Oral (given by mouth) Discont inued 02/25/2018 8 2017 60.0 0125C-A Harpreet pregabalin 150 mg oral capsule 1 cap, Oral, BID, # 180 cap, 3 total refill(s ), [facility] (Rx) Oral (given by mouth) Ordered 8 2017 180.0 0125C-A Harpreet pregabalin 150 mg oral capsule pregabal in 150 mg oral capsule Start Date: 05/22/17 Stop Date: 08/27/17 Status: Disconti nulauri Repeat number: 1 Discont inued 08/27/20172017 No Facilit y Access Multivitami ns with Folic Acid 1 mg oral tablet Multivit amins with Folic Acid 1 mg oral tablet Start Date: 05/22/17 Stop Date: 12/09/17 Status: Disconti nulauri Repeat number: 1 Discont inued 12/09/20172017 No Facilit y Access promethazin e 25 mg oral tablet 1 tabs, Oral, every 4 hr, PRN nausea/v omiting, # 60 tabs, 0 total refill(s ), [facility] (Rx) Oral (given by mouth) Discont inued 02/25/2018 7 2017 60.0 0125C-A Harpreet promethazin e 25 mg oral tablet 1 tabs, Oral, every 4 hr, PRN nausea/v omiting, # 60 tabs, 0 total refill(s ), [facility] pharmacy dispense (Rx) Oral (given by mouth) Ordered 8 2017 60.0 0125C-A Harpreet propranolol 40 mg oral tablet 1 tabs, Oral, BID, Coverage supply, # 6 tabs, 0 total refill(s ), [facility] Stop, [facility] pharmacy dispense (Rx) Oral (given by mouth) Complet ed 09/01/2017 8 2017 6.0 1480C-M adigan Westby propranolol 40 mg oral tablet 1 tabs, Oral, BID, # 60 tabs, 0 total refill(s ), [facility] dispense (Rx) Oral (given by mouth) Discont inued 07/28/2017 7 2016 60.0 1480C-M adigan Westby propranolol 40 mg oral tablet 1 tabs, Oral, BID, # 60 tabs, 0 total refill(s ), [facility], [facility] pharmacy dispense (Rx) Oral (given by mouth) Complet ed 08/27/2017 7 2017 60.0 1480C-M sonia Westby propranolol 40 mg oral tablet 1 tabs, Oral, BID, Coverage supply, # 60 tabs, 2 total refill(s ), Hard Stop, [facility] pharmacy dispense (Rx) Oral (given by mouth) Complet ed 12/16/2017 8 2017 60.0 1480C-M adsonia Westby propranolol 40 mg oral tablet 1 tabs, Oral, BID, Coverage supply, # 60 tabs, 2 total refill(s ), Gabby [facility] pharmacy dispense (Rx) Oral (given by mouth) Ordered 8 2017 60.0 1480C-M adigan Westby propranolol 40 mg oral tablet proprano lol 40 mg oral tablet Start Date: 05/22/17 Stop Date: 06/24/17 Status: Mary vega Repeat number: 1 Discont inued 06/24/20172016 No Facilit y Access traZODone 50 mg oral tablet traZODon e 50 mg oral tablet Start Date: 05/22/17 Stop Date: 09/01/17 Status: Iani silvia Repeat number: 1 Discont inued 09/01/20172017 No Facilit y Access zolpidem 5 mg oral tablet 1 tabs, Oral, Daily, PRN sleep, # 3 tabs, 0 total refill(s ), Hard Stop, 09/01/17 11:00:46 AM [facility], [facility] pharmacy dispense (Rx) Oral (given by mouth) Complet ed 09/01/2017 8 2017 3.0 1480-M kongsonia Westby zolpidem 5 mg oral tablet 1 tabs, Oral, Daily, PRN sleep, # 30 tabs, 2 total refill(s ), Gabby benjamin, [facility] pharmacy dispense (Rx) Oral (given by mouth) Ordered 8 2017 30.0 1480C-M adsonia Westby zolpidem 5 mg oral tablet zolpidem 5 mg oral tablet Start Date: 05/22/17 Stop Date: 08/27/17 Status: Iani silvia Repeat number: 1 Discont inued 08/27/20172017 No Facilit y Access zolpidem 5 mg Tab See Rx Instruct ions, Oral, # 30 EA, 0 total refill(s ), Hard Stop Oral (given by mouth) Discont inued 08/27/2017 7 2017 30.0 Ambulat ory Pharmac y Allergies, Adverse Reactions, Alerts Combined list of allergies from Department of Defense and Veterans Affairs facilities. It does not include entries that were removed or entered in error. Substance Category Reaction Severity Reaction type Status Date Reported Comments Source acetaminophen -propoxyphene Propensity to adverse reactions to substance Rash Active 6 Unknown Organizat ion Darvocet A500 Drug allergy Rash Active [facility] El DARVOCET A500 (PROPOXYPHENE NAP/ACETAMINO PHEN) Drug allergy (disorder) Rash active 6 Harpreet Edwards Dilaudid Drug allergy Rash Active [facility] El DILAUDID (HYDROMORPHON E HCL) Drug allergy (disorder) Rash active 6 Harpreet Edwards HYDROmorphone Propensity to adverse reactions to substance Rash Active 6 Unknown Organizat ion ketorolac Propensity to adverse reactions to substance Rash Active 6 Unknown Organizat ion Toradol Drug allergy Rash Active [address] [place] [address] TORADOL (KETOROLAC TROMETHAMINE) Drug allergy (disorder) Rash active 6 Harpreet [facility] Immunizations Combined list of available immunizations from the Department of Defense and Veterans Affairs facilities. 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 Comments Source Tdap 2020 RADHA, () Not Given Tdap DoD Influenza, injectable, MDCK, preservative free, quadrivalent 2020 RADHA, () Not Given Influenza , injectabl e, MDCK, preservat elizabeth free, quadrival ent DoD pneumococcal polysaccharid e PPV23 2020 RADHA, () Not Given pneumococ omar polysacch aride PPV23 DoD COVID-19, mRNA, LNP-S, PF, 30 mcg/0.3 mL dose 2020 JENNIFER KIM30 [employer] [place] (PFR) Not Given COVID-19, mRNA, LNP-S, PF, 30 mcg/0.3 mL dose DoD COVID-19, mRNA, LNP-S, PF, 30 mcg/0.3 mL dose 2020 [id number] [employer] [place] (PFR) Not Given COVID-19, mRNA, LNP-S, [...] free DoD hepatitis A-hepatitis B vaccine 2016 Pedro xiong Arm [id number] 104 [employer] complet ed hepatitis A-hepatit is B vaccine 03/27/17 Given Ambulat ory Pharmac y hepatitis A and hepatitis B vaccine 1 2016 JEFERSON RANDALL [id number] 104 [facility] ([facility] complet ed hepatitis A and hepatitis B vaccine DoD Influenza, trivlanent, adjuvanted, pf 2015 zzLef t Arm [id number] [employer] complet ed Influenza , trivlanen t, adjuvante d, pf 07/09/16 Given Ambulat ory Pharmac y tetanus, diphtheria, acellular pertu is 2015 zzRig ht Arm [id number] 115 [employer] complet ed tetanus, diphtheri a, acellular pertussis 07/09/16 Given Ambulat ory Pharmac y pneumococcal polysaccharid e, 23 valent 2015 zzLef t Arm [id number] [employer] complet ed pneumococ omar polysacch aride, 23 valent 07/09/16 Given Ambulat ory Pharmac y pneumococcal polysaccharid e vaccine, 23 valent 1 2015 FILIPE TRAMMELL [id number] Merck (MSD) compl et ed pneumococ omar polysacch aride vaccine, 23 valent DoD tetanus toxoid, reduced diphtheria toxoid, and acellular pertu is vaccine, adsorbed 1 2015 FILIPE TRAMMELL [id number] 115 [facility] ([facility]) complet ed tetanus toxoid, reduced diphtheri a toxoid, and acellular pertussis vaccine, adsorbed DoD Influenza, seasonal, injectable, preservative free 1 2015 Unknown, Provider [id number] [employer] (SEQ) complet ed Influenza , seasonal, injectabl e, preservat elizabeth free DoD Seasonal trivalent influenza vaccine, adjuvanted, preservative free 1 2015 FILIPE TRAMMELL [id number] [employer] (SEQ) com plet ed Seasonal [...] ory Pharmac y Hep A-Hep B 2014 [place], () Not Given Hep A-Hep B DoD varicella 2014 [place], () Not Given varicella DoD varicella virus [...] Heart Rate Monitored 74 bpm 08/12/2017 07:34:00 012JACE Mullins Heart Rate Monitored 96 bpm 08/12/2017 07:31:00 JUDY Mullins Heart Rate Monitored 75 bpm 08/12/2017 05:58:00 JUDY Mullins Respiratory Rate 16 br/min 09/01/2017 16:30:00 1480CJaycob Westby Diastolic Blood Pressure 91 mm[Hg] 12/05/2017 03:33:00 JUDY Mullins Systolic Blood Pressure 123 mm[Hg] 12/05/2017 03:33:00 JUDY Mullins Peripheral Pulse Rate 92 bpm 12/05/2017 03:33:00 012JACE Mullins Respiratory Rate 18 br/min 12/05/2017 03:33:00 012JACE Mullins Mean Arterial Pressure, Calc 88 mm[Hg] 12/02/2017 20:31:00 012OLGA phillips Temperature Tympanic 36.6 Berta 12/02/2017 20:31:00 FELIPE Mullins Systolic Blood Pressure 120 mm[Hg] 01/19/2018 18:01:00 012OLGA Mullins Diastolic Blood Pressure 89 mm[Hg] 01/19/2018 18:01:00 012OLGA Mullins Respiratory Rate 18 br/min 01/19/2018 18:01:00 FELIPE Mullins Temperature Tympanic 36.5 Berta 01/19/2018 18:01:00 FELIPE Mullins Peripheral Pulse Rate 86 bpm 01/19/2018 18:01:00 FELIPE Mullins Mean Arterial Pressure, Calc 99 mm[Hg] 01/19/2018 18:01:00 FELIPE phillips Respiratory Rate 16 br/min 08/12/2017 09:18:00 012JACE Mullins Heart Rate Monitored 91 bpm 08/12/2017 09:18:00 [facility] [place] Harpreet Systolic Blood Pressure 133 mm[Hg] 02/03/2018 15:56:00 012[facility] [place]preet Diastolic Blood Pressure 87 mm[Hg] 02/03/2018 15:56:00 012[facility] Harpreet Mean Arterial Pressure, Calc 102 mm[Hg] 02/03/2018 15:56:00 0125[facility] Efrem phillips Peripheral Pulse Rate 107 bpm 02/03/2018 15:56:00 012[facility] Harpreet Mean Arterial Pressure, Calc 91 mm[Hg] 09/30/2017 22:07:00 1480CJeffery n Westby Temperature Tympanic 36 Berta 09/30/2017 22:07:00 1480C-Harpreet Westby Temperature Tympanic 36.2 Berta 07/23/2017 17:47:00 Ambulatory Pharmacy Heart Rate Monitored 81 bpm 08/12/2017 08:18:00 012[facility] Harpreet Respiratory Rate 16 br/min 08/12/2017 08:18:00 012[facility] Harpreet Heart Rate Monitored 79 bpm 08/12/2017 07:19:00 012[facility] Harpreet Heart Rate Monitored 79 bpm 08/12/2017 07:08:00 [facility] [place] Harpreet Systolic Blood Pressure 108 mm[Hg] 12/09/2017 21:49:00 1485C-C McChord Diastolic Blood Pressure 76 mm[Hg] 12/09/2017 21:49:00 1485C-C McChord Respiratory Rate 17 br/min 12/09/2017 21:49:00 1485C-C McChord Temperature Tympanic 36.7 Berta 12/09/2017 21:49:00 1485C-C McChord Mean Arterial Pressure, Calc 87 mm[Hg] 12/09/2017 21:49:00 1485C-C Mc Chord Peripheral Pulse Rate 100 bpm 12/09/2017 21:49:00 1485C-C McChord Respiratory Rate 18 br/min 01/25/2018 20:32:00 012[facility] Harpreet Temperature Tympanic 35.4 Berta 01/25/2018 20:32:00 0125[facility] Harpreet Peripheral Pulse Rate 95 bpm 01/25/2018 20:32:00 012[facility] Harpreet Mean Arterial Pressure, Calc 96 mm[Hg] 01/25/2018 20:32:00 012[facility] Efrem phillips Systolic Blood Pressure 137 mm[Hg] 01/25/2018 20:32:00 012[facility] Harpreet Diastolic Blood Pressure 76 mm[Hg] 01/25/2018 20:32:00 012[facility] Harpreet Systolic Blood Pressure 125 mm[Hg] 02/25/2018 17:27:00 012[facility] Harpreet Diastolic Blood Pressure 85 mm[Hg] 02/25/2018 17:27:00 012[facility] Harpreet Temperature Tympanic 36.2 Berta 02/25/2018 17:27:[address] [place], [place] [address]igan Mean Arterial Pressure, Calc 98 mm[Hg] 02/25/2018 17:27:00 012[facility] Efrem phillips Peripheral Pulse Rate 90 bpm 02/25/2018 17:27:00 012[facility] Harpreet Temperature Tympanic 36.2 Berta 12/16/2017 15:20:00 1480C-Harpreet Westby Mean Arterial Pressure, Calc 80 mm[Hg] 12/16/2017 15:20:00 1480C-Williana n Westby Systolic Blood Pressure 118 mm[Hg] 12/16/2017 15:20:00 1480C-Harpreet Westby Diastolic Blood Pressure 61 mm[Hg] 12/16/2017 15:20:00 1480C-Harpreet Westby Peripheral Pulse Rate 82 bpm 12/16/2017 15:20:00 1480C-Harpreet Westby Heart Rate Monitored 74 bpm 08/12/2017 06:19:00 012[facility] Harpreet Diastolic Blood Pressure 94 mm[Hg] 12/05/2017 05:04:00 012[facility] Harpreet Systolic Blood Pressure 141 mm[Hg] 12/05/2017 05:04:[address] [place], [place] [address]igan Respiratory Rate 16 br/min 12/05/2017 05:04:00 012[facility] Harpreet Peripheral Pulse Rate 81 bpm 12/05/2017 05:04:00 012[facility] Harpreet Heart Rate Monitored 91 bpm 08/12/2017 07:01:[address] [place], [place] [address]igan Temperature Temporal Artery 36.6 Berta 08/12/2017 02:56:00 012[facility] Efrem phillips Systolic Blood Pressure 190 mm[Hg] 01/22/2018 19:31:00 012[facility] Harpreet Diastolic Blood Pressure 80 mm[Hg] 01/22/2018 19:31:[address] [place], [place] [address]igan Temperature Tympanic 36.4 Berta 01/22/2018 19:31:00 0125C-RAMIRO Mullins Peripheral Pulse Rate 82 bpm 01/22/2018 19:31:00 0125C-RAMIRO Mullins Mean Arterial Pressure, Calc 117 mm[Hg] 01/22/2018 19:31:00 0125C-RAMIRO phillips Temperature Temporal Artery 36.9 Berta 12/05/2017 00:42:00 0125A-RAMIRO phillips Respiratory Rate 20 br/min 12/05/2017 00:42:00 0125A-RAMIRO Mullins Mean Arterial Pressure, Calc 88 mm[Hg] 12/15/2017 16:21:00 0125C-RAMIRO phillips Peripheral Pulse Rate 97 bpm 12/15/2017 16:21:00 0125C-RAMIRO Mullins Systolic Blood Pressure 120 mm[Hg] 12/15/2017 16:21:00 0125C-RAMIRO Mullins Diastolic Blood Pressure 72 mm[Hg] 12/15/2017 16:21:00 0125C-RAMIRO Mullins Temperature Tympanic 36.4 Berta 12/15/2017 16:21:00 0125C-RAMIRO Mullins Respiratory Rate 18 br/min 12/15/2017 16:21:00 012Krishna-RAMIRO Mullins Encounters Combined list of: 1) Encounters from Department of Veterans Affairs facilities going backup to the last 18 months, not all VA inpatient encounters are included; 2) Encounters from the Department of Defense facilities going backup to 280 months. Location Location Details Encounter Type Encounter Number Reason For Visit Attending Provider ADM Date DC Date Status Disposition Source [facility](Can non_FHC_T eam B) TELE CONSULT [id number] Notes Entered by: SHAHRIAR SIERRA 06 Mar 2015 1329 ------- ------- ------- ------- -- NETWORK RESULT- ER-02/28 ARELI ZAMARRIPA 03/[facility]th [facility](Tio lawson_Wero HC_Team B) [facility](Can non_FHC_T eam B) OUTPATIENT [id number] CC F/U COLEEN WILLETT 03/28 Released w/o Limitations th [facility](Tio fieldF HC_Team B) [facility]) OUTPATIENT [id number] Per [facility] IDALIAMONALISADavid JOSE M 04/03 Released w/o Limitations [facility]) [facility]) OUTPATIENT [id number] ROTHMANDavidMARGARITADorcas Marshall 04/10 Released w/o Limitations th [facility]) [facility](Can non_FHC_T eam B) OUTPATIENT [id number] F/u per [facility] COLEEN WILLETT 04/11 Released w/o Limitations [facility](C annon_F HC_Team B) [facility](Can non_OpMed _Team A) TELE CONSULT [id number] Notes Entered by: MERLY WILKERSON 16 Apr 2015 1518 ------- ------- ------- ------- -- [facility] COLEEN WILLETT 04/[facility](C annon_O pMed_Te am A) [facility](Can non_FHC_T eam B) OUTPATIENT [id number] F/u [facility] COLEEN WILLETT 04/25 Released w/o Limitations th [facility](C annon_F HC_Team B) th [facility]) OUTPATIENT [id number] SIMSESDorcas Marshall 04/25 Released w/o Limitations [facility]) [facility]) OUTPATIENT [id number] JOSE MAYS 04/26 Released w/o Limitations th [facility]) th [facility](Can non_FHC_T eam B) TELE CONSULT [id number] Notes Entered by: SHAHRIAR SIRERA 30 Apr 2015 1024 ------- ------- ------- ------- -- NETWORK RESULT- R KNEE XRAY-05/2015 COLEEN WILLETT 04/30 [facility](C annrhina_F HC_Team B) [facility]) OUTPATIENT [id number] [facility] JOSE MCINTYRE 04/30 Released w/o Limitations [facility]) [facility]) TELE CONSULT [id number] Notes Entered by: JOSE MCINTYRE 02 May 2015 0731 ------- ------- ------- ------- -- JOSE Jennings 05/[facility]) [facility](Can non_FHC_T eam B) TELE CONSULT [id number] Notes Entered by: ANISA MACHUCA 02 May 2015 0812 ------- ------- ------- ------- -- ANGUS STAPLES 05/02 Referred for Appointment [facility](C annrhina_F HC_Team B) [facility](Can non_FHC_T eam B) TELE CONSULT [id number] Notes Entered by: HEATHER RUIZ 03 May 2015 1326 ------- ------- ------- ------- -- Network Results - Podiatr y - 04/2015 COLEEN WILLETT 05/03th [facility] [employer] [facility] [employer](C annon_F HC_Team B) [facility](Can non_FHC_T eam B) TELE CONSULT [id number] Notes Entered by: LEATHA CARO 06 May 2015 1727 ------- ------- ------- ------- -- Network Results - MRI Brain - [id number]. COLEEN WILLETT 05/06th [facility](C annrhina_F HC_Team B) th [facility](Can non_FHC_T eam B) TELE CONSULT [id number] Notes Entered by: Dorcas ARZOLA 10 May 2015 1151 ------- ------- ------- ------- -- BILATER AL MAMMOGR AM. LEFT BREAST ULTRASO UND RESULTS LINDA OAKES 05/10 [facility] [employer] [facility](C annrhina_F HC_Team B) [facility]) TELE CONSULT [id number] Notes Entered by: JOSE MCINTYRE 10 May 2015 1900 ------- ------- ------- ------- -- Coordin [facility] JOSE MCINTYRE 05/11th [facility] [employer] [facility]) [facility]) OUTPATIENT [id number] OP JOSE MCINTYRE 05/11 Admitted [facility]) [facility](Can non_FHC_T ea B) OUTPATIENT [id number] Pt is followi ng up followi ng inpatie nt unit COLEEN WILLETT 06/06 Released w/o Limitations th [facility] [employer] [facility](C annrihna_F HC_Team B) [facility] [employer]([facility]) TELE CONSULT [id number] Notes Entered by: JOSE MCINTYRE 06 Jun 2015 1302 ------- ------- ------- ------- -- JOSE Jennings 06/06th [facility]) th [facility](Can non_Ped_T eam A) TELE CONSULT [id number] Notes Entered by: SAMANTHA WILLIS 11 Jun 2015 1109 ------- ------- ------- ------- -- Needle Stick AISHWARYA KLEIN 06/11th [facility] [employer] [facility] [employer](Tio lawson_P ed_Team A) [facility] [employer]([facility]) OUTPATIENT [id number] [facility] JOSE MCINTYRE 06/12 Released w/o Limitations th [facility]) 27 [facility] [employer]([facility]) OUTPATIENT [id number] PAP. 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 06/25 Released w/o Limitations th [facility] [employer] [facility]) th [facility](Can non_FHC_T eam B) TELE CONSULT [id number] Notes Entered by: ISHA RIZZO 26 Jun 2015 1322 ------- ------- ------- ------- -- 16 June 2015 [facility] ER GLENDY Grove 06/26th [facility] [employer] [facility] [employer](Tio Mccrary HC_Team B) [facility]) TELE CONSULT [id number] Notes Entered by: CHALINO MCGARRY 26 Jun 2015 1328 ------- ------- ------- ------- -- Care Coordin JOSE Hernandez 06/26th [facility] [employer] [facility]) [facility](Can non_FHC_T eam B) TELE CONSULT [id number] Notes Entered by: NEETU PEREZ 02 Jul 2015 0913 ------- ------- ------- ------- -- LAB RESULTS ERNIEAISHWARYA CASTELLANOS Rolando 07/02th [facility](C annon_F HC_Team B) th [facility](Can non_FHC_T eam B) OUTPATIENT [id number] KATTY NG BLOOD X2 DAYS COLEEN WILLETT 07/03 Released w/o Limitations th [facility] [employer] [facility](C annon_F HC_Team B) [facility]) OUTPATIENT [id number] routine -ss IMER TERRELL P 07/03 Released w/o Limitations th [facility]) th [facility](Can non_FHC_T eam B) TELE CONSULT [id number] Notes Entered by: HEATHER RUIZ 06 Jul 2015 1022 ------- ------- ------- ------- -- Network Results - Mental Health - 06/2015 COLEEN WILLETT 07/06th [facility](C annon_F HC_Team B) th [facility]) OUTPATIENT [id number] [facility] JOSE MCINTYRE 07/10 Released w/o Limitations th [facility]) th [facility](Can non_FHC_T eam B) TELE CONSULT [id number] Notes Entered by: MISA CASH 16 Jul 2015 1425 ------- ------- ------- ------- -- NETWORK RESULTS -ER- COLEEN WILLETT 07/16th [facility](C annon_F HC_Team B) th [facility](Can non_FHC_T eam B) OUTPATIENT [id number] Resched uled Thyroid blookwo rk COLEEN WILLETT 07/17 Released w/o Limitations th [facility](C annon_F HC_Team B) th [facility] P) TELE CONSULT [id number] Notes Entered by: NATALIIA LIRA 17 Jul 2015 1524 ------- ------- ------- ------- -- EF Case Review SHAHEED BUCIO 07/17 [facility](E [facility]) [facility](Can non_FHC_T eam B) TELE CONSULT [id number] Notes Entered by: NEETU PEREZ 18 Jul 2015 0746 ------- ------- ------- ------- -- BACK IS OUT GLENDY SILVA 07/18 [facility](C annrhina_F HC_Team B) [facility](Can non_FHC_T eam B) TELE CONSULT [id number] Notes Entered by: MISA CASH 18 Jul 2015 1152 ------- ------- ------- ------- -- NETWORK RESULTS -ECHOCA RDIOGRA M-07/17 COLEEN WILLETT 07/18 [facility](C annon_F HC_Team B) [facility](Can non_FHC_T eam B) TELE CONSULT [id number] Notes Entered by: MISA CASH 18 Jul 2015 1625 ------- ------- ------- ------- -- NETWORK RESULTS -MRI L SPINE-1 09/18/14 COLEEN WILLETT 07/18 [facility](C annrhina_F HC_Team B) th [facility](Can non_FHC_T eam B) TELE CONSULT [id number] Notes Entered by: MISA CASH 20 Jul 2015 0943 ------- ------- ------- ------- -- NETWORK RESULTS -ER and ER (2)- COLEEN WILLETT 07/20th [facility](C annon_F HC_Team B) th [facility](Can non_FHC_T eam B) TELE CONSULT [id number] Notes Entered by: THOMPSON 20 Jul 2015 1104 ------- ------- ------- ------- -- NETWORK RESULT- ER-JUL 01 COLEEN WILLETT 07/20th [facility](C annon_F HC_Team B) th [facility](Can non_FHC_T eam B) TELE CONSULT [id number] Notes Entered by: THOMPSON 20 Jul 2015 1117 ------- ------- ------- ------- -- NETWORK RESULT- ER(2)-2 JUL 01 COLEEN WILLETT 07/20th [facility](C annon_F HC_Team B) th [facility](Can non_FHC_T eam B) TELE CONSULT [id number] Notes Entered by: ANISA MACHUCA 24 Jul 2015 0925 ------- ------- ------- ------- -- GLENDY LOUIE 07/24th [facility] [employer] [facility](C annon_F HC_Team B) th [facility](Can non_FHC_T eam B) TELE CONSULT [id number] Notes Entered by: MISA CASH 24 Jul 2015 1005 ------- ------- ------- ------- -- NETWORK RESULTS -HOLTER MONITOR DAY-08/31 COLEEN WILLETT 07/24th [facility](C annon_F HC_Team B) [facility](Can non_FHC_T eam B) TELE CONSULT [id number] Notes Entered by: HEATHER RUIZ 25 Jul 2015 0829 ------- ------- ------- ------- -- Network [facility] - Neurolo gy - 06/2015 COLEEN WILLETT 07/25th [facility](C annon_F HC_Team B) [facility](Can non_FHC_T eam B) TELE CONSULT [id number] Notes Entered by: NEETU PEREZ 30 Jul 2015 1404 ------- ------- ------- ------- -- URINE TEST GLENDY SILVA 07/30th [facility](C annon_F HC_Team B) [facility]([employer]) TELE CONSULT [id number] Notes Entered by: TYRON HAYES 31 Jul 2015 1307 ------- ------- ------- ------- -- Elzbieta villeda for [facility] M[facility]V JOSR HAYES 07/31 Other Not Elsewhere Classified [facility](N urse Case [employer]agem ent) [facility]([employer]) TELE CONSULT [id number] Notes Entered by: TYRON HAYES 01 Aug 2015 1423 ------- ------- ------- ------- -- [facility] JOSR HAYES 08/01 Other Not Elsewhere Classified [facility](N urse Case Managem ent) [facility](Can non_FHC_T eam B) TELE CONSULT [id number] Notes Entered by: ISHA RIZZO 07 Aug 2015 1440 ------- ------- ------- ------- -- [id number] [facility] Log AISHWARYA KLEIN 08/07 [facility](C annon_F HC_Team B) [facility](Can non_FHC_T eam B) TELE CONSULT [id number] Notes Entered by: MISA CASH 20 Aug 2015 1015 ------- ------- ------- ------- -- NETWORK RESULTS -OPERAT ELIZABETH NOTE- COLEEN WILLETT 08/20th [facility](C annon_F HC_Team B) [facility](Can non_FHC_T eam B) TELE CONSULT [id number] Notes Entered by: HEATHER RUIZ 21 Aug 2015 1250 ------- ------- ------- ------- -- Network Results - Cardiol ogy - 07/2015 COLEEN WILLETT 08/21th [facility](C annon_F HC_Team B) th [facility](Can non_FHC_T eam B) TELE CONSULT [id number] Notes Entered by: HEATHER RUIZ 31 Aug 2015 1010 ------- ------- ------- ------- -- Network Results - Cardiol ogy - 07/2015 COLEEN WILLETT 08/31th [facility](C annon_F HC_Team B) [facility](Can non_FHC_T eam B) OUTPATIENT [id number] lab work for COLEEN Sadler 09/04 Released w/o Limitations [facility](C annon_F HC_Team B) [facility](Can non_FHC_T eam B) TELE CONSULT [id number] Notes Entered by: ANISA MACHUCA 13 Sep 2015 1328 ------- ------- ------- ------- -- SLEEP MACHINE NEEDED AISHWARYA KLEIN 09/13th [facility](C annon_F HC_Team B) th [facility](Can non_FHC_T eam B) TELE CONSULT [id number] Notes Entered by: ANISA MACHUCA 17 Sep 2015 1420 ------- ------- ------- ------- -- MEDICAT ION GLENDY HARRIS 09/17 [facility] annon_F HC_Team B) th [facility](Can non_FHC_T eam B) TELE CONSULT [id number] Notes Entered by: HEATHER RUIZ 20 Sep 2015 1015 ------- ------- ------- ------- -- Network Results - Neurolo gy - 08/2015 COLEEN WILLETT 09/20 [facility](C annon_F HC_Team B) th [facility](Can non_FHC_T eam B) TELE CONSULT [id number] Notes Entered by: HEATHER RUIZ 25 Sep 2015 0844 ------- ------- ------- ------- -- Network Results - Sleep Study - 07/2015 COLEEN WILLETT 09/25th [facility](C annon_F HC_Team B) th [facility](Can non_FHC_T eam B) TELE CONSULT [id number] Notes Entered by: MISA CASH 08 Oct 2015 0757 ------- ------- ------- ------- -- NETWORK RESULTS -CARDIO LOGY- COLEEN WILLETT 10/08th [facility](C annon_F HC_Team B) th [facility](Can non_FHC_T eam B) OUTPATIENT [id number] CC ACID REFLUX COLEEN WILLETT 10/08 Released w/o Limitations [facility] annon_F HC_Team B) th [facility](Can non_FHC_T eam B) TELE CONSULT [id number] Notes Entered by: Wicho EDWARDS 12 Oct 2015 1512 ------- ------- ------- ------- -- Possibl e yeast infecti on due to antibio tics GLENDY SILVA 10/12 [facility](C annon_F HC_Team B) th [facility](Can non_FHC_T eam B) TELE CONSULT [id number] Notes Entered by: NEETU PEREZ 15 Oct 2015 1325 ------- ------- ------- ------- -- MED EDUARDO CASH Released w/o Limitations [facility] annon_F HC_Team B) th [facility](Can non_FHC_T eam B) TELE CONSULT [id number] Notes Entered by: HEATHER RUIZ 16 Oct 2015 1453 ------- ------- ------- ------- -- Network Results - Endocri nology - 08/2015 COLEEN WILLETT 10/15th [facility](C annon_F HC_Team B) th [facility]) TELE CONSULT [id number] Notes Entered by: LANI BARNHART 19 Oct 2015 1015 ------- ------- ------- ------- -- VULVA BLEEDIN G, ITCHY,R ED AND SWOLLEN BERNALALL FRANCOIS Steff 10/18 [facility] OUTPATIENT [id number] pelvic exam ALL BERNAL Steff 10/21 Released w/o Limitations [facility](Can non_FHC_T eam B) TELE CONSULT [id number] Notes Entered by: LANI BARNHART 23 Oct 2015 1223 ------- ------- ------- ------- -- LAB RESULTS BERNALALL FRANCOIS Steff 10/22 [facility](C [facility]rhina_F HC_Team B) [facility](Can non_FHC_T eam B) TELE CONSULT [id number] Notes Entered by: MISA CASH 12 Nov 2015 1559 ------- ------- ------- ------- -- NETWORK RESULTS -CPAP COMPLIA NCE REPORT- 6 COLEEN WILLETT 11/11 [facility](C annrhina_F HC_Team B) [facility](Can non_FHC_T eam B) OUTPATIENT [id number] CC KNEES PAINFUL AND SWELLIN G GETTING WORSE COLEEN WILLETT 11/15 Released w/o Limitations [facility](C [facility]rhina_F HC_Team B) [facility](Can non_FHC_T eam B) TELE CONSULT [id number] Notes Entered by: HEATHER RUIZ 16 Nov 2015 1410 ------- ------- ------- ------- -- Network Results - Neurosu rgery - 07/2015 ; Pain Managem ent - 10/2015 ; ARELI ZAMARRIPA A 11/15 [facility](C annon_F HC_Team B) th [facility] OUTPATIENT [id number] Obesity , unspeci MANUEL Brown A 11/19 Released w/o Limitations [facility](N utritio nal Medicin e) [facility](Can non_FHC_T eam B) TELE CONSULT [id number] Notes Entered by: MISA CASH 21 Nov 2015 1352 ------- ------- ------- ------- -- NETWORK RESULTS -CAROTI D ARTERY DUPLEX REPORT- 6 COLEEN WILLETT 11/20 [facility](C annon_F HC_Team B) th [facility](Can non_FHC_T eam B) TELE CONSULT [id number] Notes Entered by: MISA CASH 23 Nov 2015 1718 ------- ------- ------- ------- -- NETWORK RESULTS -CARDIO LOGY- COLEEN WILLETT 11/22th [facility](C annon_F HC_Team B) th [facility](Can non_FHC_T eam B) TELE CONSULT [id number] Notes Entered by: MISA CASH 27 Nov 2015 1620 ------- ------- ------- ------- -- NETWORK RESULTS -MRI L and R KNEES-0 11/26/15 DIMITRY WILSON 11/26 Advice Assessment th [facility](C annon_F HC_Team B) th [facility](Can non_FHC_T eam B) TELE CONSULT [id number] Notes Entered by: Christiana SILVA 28 Nov 2015 1545 ------- ------- ------- ------- -- Med GLENDY Crabtree 11/27 [facility](C annon_F HC_Team B) [facility](Can non_FHC_T eam B) TELE CONSULT [id number] Notes Entered by: HEATHER RUIZ 04 Dec 2015 1058 ------- ------- ------- ------- -- Network Results - Podiatr y - 11/2015 COLEEN WILLETT 12/03th [facility](C annon_F HC_Team B) [facility](Can non_FHC_T eam B) TELE CONSULT [id number] Notes Entered by: MISA CASH 05 Dec 2015 1551 ------- ------- ------- ------- -- NETWORK RESULTS -UPPER GI ENDOSCO PY-10/17 09/01 COLEEN WILLETT 12/04 27[facility](C annon_F HC_Team B) 27[facility](Can non_FHC_T eam B) TELE CONSULT [id number] Notes Entered by: Wicho EDWARDS 06 Dec 2015 1050 ------- ------- ------- ------- -- DIMITRY Light 12/05 Referred for Appointment [facility](C annon_F HC_Team B) [facility](Can non_FHC_T eam B) TELE CONSULT [id number] Notes Entered by: MISA CASH 06 Dec 2015 1722 ------- ------- ------- ------- -- NETWORK RESULTS -CARDIO LOGY- COLEEN WILLETT 04/21 /2016 [facility](C annon_F HC_Team B) [facility](Can non_FHC_T eam B) TELE CONSULT [id number] Notes Entered by: KODI COREY 10 Dec 2015 1133 ------- ------- ------- ------- -- Candelario shepard. [id number] COLEEN WILLETT 12/09 [facility](C annon_F HC_Team B) [facility](Can non_FHC_T eam B) OUTPATIENT [id number] thyriod f/u request ing [facility] COLEEN WILLETT 12/11 Released w/o Limitations [facility](C annon_F HC_Team B) th [facility](Can non_FHC_T eam B) TELE CONSULT [id number] Notes Entered by: LANI BARNHART 18 Dec 2015 1034 ------- ------- ------- ------- -- MEDICAT ION REFGLENDY MONTAGUE 12/17 [facility](C annon_F HC_Team B) [facility] TO [facility] [id number] MAHAMED POWER 01/14 DISCHARGED HOME Har[facility]reet [facility] [place] [facility]reet [facility], [facility] TO [facility] [phone] [id number] MAHAMED POWER 01/21 DISCHARGED HOME [facility] OUTPATIENT [id number] HAVING A REACTIO N TO HER BLOOD THINNER MICHAEL ROMERO 02/11 Released w/o Limitations [facility]reet [facility]) [facility]) OUTPATIENT [id number] Notes Entered by: Christiana FAM 13 Feb 2016 1322 ------- ------- ------- ------- -- Risk Managem ent Review SOHAM FAM 02/12 Released w/o Limitations [facility] Leanne Hirsch) [facility], DIRECT TO [phone] SIGNSERIC 02/13 DISCHARGED HOME [facility] [id number] [facility] JEFF SAUCEDO 02/13 Inpatient- Still a Patient [facility]([place] [facility] sciplin bi) [facility] [facility]tico[facility]ation) TELE CONSULT [id number] Notes Entered by: LNUA 19 Feb 2016 1555 ------- ------- ------- ------- -- [facility] STEVEN Begum 02/18 [facility]([place] Cardiol ogy Anticoa gulatio n) [facility] Leanne [facility]sch) OUTPATIENT [id number] Notes Entered by: Christiana FAM 20 Feb 2016 1024 ------- ------- ------- ------- -- case managem ent SOHAM FAM 02/19 Released w/o Limitations [facility]) [facility] [facility] OUTPATIENT [id number] Pulmona ry embolis STEVEN Gutierrez 02/20 Released w/o Limitations [facility]([place] Cardiol ogy Anticoa gulatio n) [facility] [facility]) TELE CONSULT [id number] Notes Entered by: Esther ESTEVES 25 Feb 2016 0932 ------- ------- ------- ------- -- Labs STEVEN BAXTER 02/24 [facility]([place] Cardiol ogy Anticoa gulatio n) [facility]([place] [facility]tico[facility]ation) TELE CONSULT [id number] Notes Entered by: LUNA 25 Feb 2016 1511 ------- ------- ------- ------- -- Pt not able to do labs today STEVEN BAXTER 02/24 [facility]([place] Cardiol [facility]gy Anticoa gulatio n) [facility] [address]) TELE CONSULT [id number] Notes Entered by: VÍCTOR RODRIGUEZ 26 Feb 2016 0838 ------- ------- ------- ------- -- Appoint SOHAM Mejia 02/25 [facility] [address]) [facility] [facility]tico[facility]) TELE CONSULT [id number] Notes Entered by: LUNA 26 Feb 2016 1603 ------- ------- ------- ------- -- documen tation of INR results and mariahari STEVEN Morales 02/25 [facility]([place] Cardiol [facility]gy Anticoa gulatio n) [facility]) TELE CONSULT [id number] Notes Entered by: GABY MOLINA 27 Feb 2016 1116 ------- ------- ------- ------- -- Family hx breast/ ocarian cancers GABY MORE 02/26 [facility]) [facility] [place] [facility]) OUTPATIENT [id number] Notes Entered by: Christiana FAM 28 Feb 2016 1049 ------- ------- ------- ------- -- case managem ent SOHAM FAM 02/27 Released w/o Limitations [facility]) [facility] [facility]) TELE CONSULT [id number] Notes Entered by: AELJANDRA AGRAWAL 29 Feb 2016 1636 ------- ------- ------- ------- -- nano berg managem ent ALEJANDRA AGRAWAL 02/28 [facility]([place] Cardiol [facility]gy Anticoa gulatio n) [facility] [facility]) TELE CONSULT [id number] Notes Entered by: ALEJANDRA AGRAWAL 10 Mar 2016 1348 ------- ------- ------- ------- -- nano berg managem ent ALEJANDRA AGRAWAL 03/10 [facility]([place] Cardiol [facility]gy Anticoa gulatio n) [facility]) OUTPATIENT [id number] Prebx appt GABY MORE 03/10 Released w/o Limitations [facility]) [facility]) OUTPATIENT [id number] Prebx ed/coun carrie GABY MORE 03/13 Released w/o Limitations [facility] [facility]) TELE CONSULT [id number] Notes Entered by: LUNA 13 Mar 2016 1519 ------- ------- ------- ------- -- Patient has upcomin g procedu re, may need to tempora radha vail inSTEVEN Dailey 03/13 [facility]([place] Cardiol [facility] Anticoa gulatio n) [facility]([place] [facility]) TELE CONSULT [id number] Notes Entered by: ISAH MUNOZ 14 Mar 2016 1258 ------- ------- ------- ------- -- Documen tation of INR results and warfari ng dosing. \ ISHA [facility]UNOZ 03/14 [facility] [facility]) [facility] [facility]) TELE CONSULT [id number] Notes Entered by: ISHA MUNOZ 17 Mar 2016 1325 ------- ------- ------- ------- -- Documen tation of INR results and warfari ng dosing. ISHA MUNOZ 03/17 [facility]([place] Cardiol [facility] Anticoa gulatio n) [facility] [address]) TELE CONSULT [id number] Notes Entered by: Steff JACOBSEN 18 Mar 2016 0905 ------- ------- ------- ------- -- Virtual [facility] [place] [id number] JONH JACOBSEN 03/18 [facility] [address]) [facility]([place] [facility]tico[facility]ation) TELE CONSULT [id number] Notes Entered by: Mali GROVES 21 Mar 2016 1445 ------- ------- ------- ------- -- INR results and dosing plan GEORGETTE MOTA 03/21 [facility]([place] Cardiol [facility]gy Anticoa gulatio n) [facility] TELE CONSULT [id number] Notes Entered by: GABY MOLINA 02 Apr 2016 1327 ------- ------- ------- ------- -- Breast biopsy results GABY MORE 04/02 [facility](M [facility] Breast Pathway [facility]) [facility] igan Cardiolog y Anticoagu lation) TELE CONSULT [id number] Notes Entered by: SARA DAIGLE 04 Apr 2016 1145 ------- ------- ------- ------- -- Patient concern s ISHA MUNOZ 04/04 [facility]([place] Cardiol ogy Anticoa gulatio n) [facility] [address]) OUTPATIENT [id number] migrane s/dizzy HARSHA Snyder 04/07 Released w/o Limitations [facility](A [facility] [address]) [facility] igan Cardiolog y Anticoagu lation) TELE CONSULT [id number] Notes Entered by: Mali GROVES 11 Apr 2016 1526 ------- ------- ------- ------- -- INR results and dosing plan , venlafa xine 100mg starts tomorro w. ALEJANDRA AGRAWAL 04/11 [facility]([place] Cardiol ogy Anticoa gulatio n) [facility]([address]) TELE CONSULT [id number] Notes Entered by: Christiana FAM 22 May 2016 0905 ------- ------- ------- ------- -- f/u med HARSHA NUNN 05/22 [facility](A [facility] [address]) [facility] Breast [facility]) TELE CONSULT [id number] Notes Entered by: GABY MOLINA 29 May 2016 1311 ------- ------- ------- ------- -- Family hx breast cancer GABY MORE 05/29 [facility]) [facility]([address]) TELE CONSULT [id number] Notes Entered by: JOSSELIN NEGRON 30 May 2016 1508 ------- ------- ------- ------- -- Med Rx problem s JOSSELIN NEGRON 05/30 [facility]A [address]) [facility]([address]) TELE CONSULT [id number] Notes Entered by: JASMEET WOLFF 02 Jun 2016 0803 ------- ------- ------- ------- -- prescri ption not called in correct ly JOSSELIN NEGRON 06/02 [facility](A [address]) [facility]([address]) TELE CONSULT [id number] Notes Entered by: SAWYER GIORDANO 16 Jun 2016 0854 ------- ------- ------- ------- -- Mendy [facility] ANDI GIORDANO 06/16 [facility] for [facility]ment [facility](A [address]) [facility]([address]) [facility]PAT[facility] [id number] [facility] myrandayness back pain HARSHA NUNN 06/18 Released w/o Limitations [facility](A [address]) [facility]([place] Cardiolog y Anticoagu lation) TELE CONSULT [id number] Notes Entered by: ISHA MUNOZ 24 Jun 2016 1245 ------- ------- ------- ------- -- Pt had PT/INR drawn with request of INR results and warfari n dosing / Documen tat ISHA MUNOZ 06/24 [facility]([place] Cardiol ogy Anticoa gulatio n) [facility]([address]) OUTPATIENT [id number] VÍCTOR Munoz 07/07 Released w/o Limitations [facility](A [address]) [facility]([address]) TELE CONSULT [id number] Notes Entered by: VÍCTOR RODRIGUEZ 09 Jul 2016 1231 ------- ------- ------- ------- -- Medicat FILIPE Maxwell 07/09 [facility]ased to Self Care [facility](A [address]) [facility]) OUTPATIENT [id number] Migrain e, unspeci fied, not intract able, with status migrain osus ADRIAN TAPIA 07/16 Released w/o Limitations [facility]rolog [facility]) [facility]([address]) TELE CONSULT [id number] Notes Entered by: Christiana FAM 16 Jul 2016 1325 ------- ------- ------- ------- -- MRI order needed for Neurosu VÍCTOR Mustafa 07/16 [facility](A [address]) [facility] iga Intervent ional Radiology ) OUTPATIENT [id number] Notes Entered by: NORBERT TAPIA 16 Jul 2016 1431 ------- ------- ------- ------- -- Botox ADRIAN TAPIA 07/16 Released w/o Limitations [facility]([place] Interve ntional Radiolo gy) [facility] F[facility]) TELE CONSULT [id number] Notes Entered by: Christiana FAM 17 Jul 2016 0912 ------- ------- ------- ------- -- rx request VÍCTOR RODRIGUEZ 07/17 [facility](A [facility] F01B [facility]) [facility](Naa rosurgery ) OUTPATIENT [id number] Low back pain HOWARD DEEDEE L 07/22 Released w/o Limitations [facility](N eurosur melissa) [facility]([place] Cardiolog y Anticoagu lation) TELE CONSULT [id number] Notes Entered by: ISHA MUNOZ 24 Jul 2016 0941 ------- ------- ------- ------- -- Pt had PT/INR drawn with request of INR results and warfari n dosing / Documen tat ISHA MUNOZ 07/24 [facility]([place] Cardiol ogy Anticoa gulatio n) [facility]([place] [facility]) TELE CONSULT [id number] Notes Entered by: SAHARA POLLACK 29 Jul 2016 1019 ------- ------- ------- ------- -- NETWORK RESULTS /GI/REF LUX EVAL/DO S 6/UPLOA DED IN TEJAS SAHARA RAMÍREZ 07/29 Other Not Elsewhere Classified [facility](M ad[place] RCC) [facility]([place] [facility]) TELE CONSULT [id number] Notes Entered by: SAHARA POLLACK 29 Jul 2016 1217 ------- ------- ------- ------- -- NETWORK RESULTS /GI/LAB RS/DOS 6/UPLOA DED IN SAHARA MAXWELL 07/29 Other Not Elsewhere Classified [facility](Rolando thomas [facility]) [facility] F[facility]B [facility]) OUTPATIENT [id number] DISCUSS BARIATR IC SURGERY VÍCTOR RODRIGUEZ 07/31 Released w/o Limitations [facility](A y Medical Home F01B [place]) [facility](Arm y Medical [place] F01B [facility]) OUTPATIENT [id number] Notes Entered by: Christiana FAM 05 Aug 2016 1252 ------- ------- ------- ------- -- case manage ent SOHAM FAM 08/05 Released w/o Limitations [facility](A [facility] F01B [place]) [facility](Arm [place] [facility]) TELE CONSULT [id number] Notes Entered by: Christiana FAM 05 Aug 2016 1258 ------- ------- ------- ------- -- bladder concern s VÍCTOR RODRIGUEZ 08/05 [facility](A [facility] 1B [place]) [facility]([place] [address] [facility]) TELE CONSULT [id number] Notes Entered by: VÍCTOR RODRIGUEZ 05 Aug 2016 1442 ------- ------- ------- ------- -- Parking JOSSELIN Littlejohn 08/05 Referred for Appointment [facility](A [facility] F01B [place]) [facility](Ana rosurgery ) OUTPATIENT [id number] 2ND OPINION , PRIOR DR DK Ross PT. RAYMOND KENNEDY 08/06 Released w/o Limitations [facility](N eurosur melissa) [facility]) TELE CONSULT [id number] Notes Entered by: VÍCTOR RODRIGUEZ 06 Aug 2016 1508 ------- ------- ------- ------- -- Urine results DONNA REESE Christiana 08/06 [facility] [address]) [facility]([place] Cardiolog y Anticoagu lation) TELE CONSULT [id number] Notes Entered by: LUNA 07 Aug 2016 1442 ------- ------- ------- ------- -- End of Oral Anticoa gulatio n Therapy STEVEN BAXTER 08/07 [facility]([place] Cardiol ogy Anticoa gulatio n) [facility]([place] Pain Interdisc iplinary) OUTPATIENT [id number] INTAKE DARRIAN LEACH Christiana 08/12 Released w/o Limitations [facility]([place] Pain Interdi sciplin bi) [facility]([place] [facility]) TELE CONSULT [id number] Notes Entered by: Vickie PEREZ 13 Aug 2016 1542 ------- ------- ------- ------- -- NETWORK RESULTS GI EGD 016 JO PEREZ 08/13 Other Not Elsewhere Classified [facility] [facility]) [facility]) OUTPATIENT [id number] pain in back,ri bs and hips,fe ll last week VÍCOTR RODRIGUEZ 08/14 Released w/o Limitations [facility](A [facility]) [facility]) TELE CONSULT [id number] Notes Entered by: VÍCTOR RODRIGUEZ 15 Aug 2016 1432 ------- ------- ------- ------- -- Follow- up VÍCTOR RODRIGUEZ 08/15 [facility](A [facility] F01B [place]) [facility](Uro logy) TELE CONSULT [id number] Notes Entered by: REJI DIAZ 19 Aug 2016 1427 ------- ------- ------- ------- -- Hematur ia DANYELL DIAZ 08/19 Released w/o Limitations [facility](U rology) [facility]([place] RCC) TELE CONSULT [id number] Notes Entered by: SINTIA NAVARRETE 20 Aug 2016 0805 ------- ------- ------- ------- -- NETWORK RESULTS /US RUQ/DOS [id number]/ UPLOADE D INTO [facility] KHADAR NAVARRETE 08/20 Other Not Elsewhere Classified [facility]([place] [facility] [facility]) [facility](Gen eral Surgery) OUTPATIENT [id number] Obesity , unspeci fied IAN LOPEZ 08/21 Released w/o Limitations [facility](G eneral Surgery ) [facility]([place] RCC) TELE CONSULT [id number] Notes Entered by: BRANDT BATISTA 22 Aug 2016 1103 ------- ------- ------- ------- -- NETWORK RESULTS GI DIAGNOS TIC STUDIES / LABS DOS 12.9.20 16 BRANDT BATISTA 08/22 Other Not Elsewhere Classified [facility] [facility]) [facility]([place] Pain Interdisc iplinary) OUTPATIENT [id number] low back pain (INT EVAL) FROILAN MORRIS 08/27 Released w/o Limitations [facility]([place] Pain Interdi sciplin bi) [facility] Medical [facility] F01B [facility]) TELE CONSULT [id number] JOSSELIN NEGRON 08/29 [facility]ment [facility] [place]) [facility] ADMISSION RESULTING FROM [facility], DIRECT TO [facility]ATED [facility]IN [facility] [id number] RAYMOND KENNEDY 09/01 DISCHARGED HOME [facility]([place] Weight Managemen t Case Managemen t) OUTPATIENT [id number] Notes Entered by: MARISELA CANALES 04 Sep 2016 1447 ------- ------- ------- ------- -- removal from bariatr ic pathway JOSE E CANALES 09/04 Released w/o Limitations [facility](M [place] Weight Managem ent Case Managem ent) [facility](Arm Medical [facility] [address] [place]) TELE CONSULT [id number] Notes Entered by: GIANFRANCO MONTALVO 05 Sep 2016 0857 ------- ------- ------- ------- -- MAMC Inpatie nt Follow Up GIANFRANCO MONTALVO 09/05 [facility](A [facility] [address] [place]) [facility] [place]) TELE CONSULT [id number] Notes Entered by: VÍCTOR RODRIGUEZ 05 Sep 2016 1117 ------- ------- ------- ------- -- ECHO Pain Report VÍCTOR RODRIGUEZ 09/05 [facility] 1B [place]) [facility], [facility] [id number] ARELI COUCH 09/08 [facility]GED HOME [facility] [place]) TELE CONSULT [id number] Notes Entered by: GIANFRANCO MONTALVO 12 Sep 2016 0831 ------- ------- ------- ------- -- MAMC Inpatie nt Follow Up VÍCTOR RODRIGUEZ 09/12 [facility] 1B [place]) [facility] Breast Pathway [facility]) TELE CONSULT [id number] Notes Entered by: GABY MOLINA 17 Sep 2016 1101 ------- ------- ------- ------- -- Br cancer hi risk f/u GABY MORE 09/17 [facility] Breast Pathway [facility]) [facility] [place] [address] [facility]) TELE CONSULT [id number] Notes Entered by: Christiana FAM 17 Sep 2016 1529 ------- ------- ------- ------- -- med refill SOHAM FAM 09/17 [facility] 1[facility] [place]) [facility]) OUTPATIENT [id number] Med Review BRADY SAUCEDO 09/19 Released w/o Limitations [facility]) [facility] [place] [address]) OUTPATIENT [id number] f/u hosp discect malorie/torrez inectom y L5 VÍCTOR RODRIGUEZ 09/19 Released w/o Limitations [facility](A [facility] 1B [place]) [facility](Uro logy) OUTPATIENT [id number] hematur OLIVE Ledbetter 09/23 Released w/o Limitations [facility](U rology) [facility] [place] [address]) OUTPATIENT [id number] Notes Entered by: Christiana FAM 23 Sep 2016 1508 ------- ------- ------- ------- -- case managem ent SOHAM FAM 09/23 Released w/o Limitations [facility](A y [facility] 1B [place]) [facility](Arm [facility] Medical Home [facility]) TELE CONSULT [id number] Notes Entered by: VÍCTOR RODRIGUEZ 24 Sep 2016 0717 ------- ------- ------- ------- -- Low Vit D SOHAM FAM 09/24 [facility]) [facility](Ana rosurgery ) OUTPATIENT [id number] post-op f/u, DOS 08 September 2016 RAYMOND KENNEDY 09/24 Released w/o Limitations [facility](N eurosur melissa) [facility] Medical Home [address]) TELE CONSULT [id number] Notes Entered by: Christiana FAM 24 Sep 2016 0943 ------- ------- ------- ------- -- referra SOHAM Kraus 09/24 [facility] 1B [place]) [facility] [employer] [facility] OUTPATIENT [id number] 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/?H RT IESHA DAVALOS 09/30 Released w/o Limitations [facility]([place] [facility] [employer] [facility]) [facility] Medical [facility]) OUTPATIENT [id number] Notes Entered by: Christiana FAM 20 Oct 2016 1455 ------- ------- ------- ------- -- Case Managem ent SOHAM FAM 10/20 Released w/o Limitations [facility] 1B [place]) [facility](Arm y Medical [address]) TELE CONSULT [id number] Notes Entered by: JOSSELIN NEGRON 28 Oct 2016 1504 ------- ------- ------- ------- -- Labs prior to apptj JOSSELIN NEGRON Sanjay 10/28 Referred for Appointment [facility](A [facility] F01B [place]) [facility](Ana rology Clinic) OUTPATIENT [id number] SantiagoADRIAN Parson 10/29 Released w/o Limitations [facility](N eurolog y Clinic) [facility](Arm [facility] Medical [place] F01B [facility]) OUTPATIENT [id number] F/U FOR IRON LEVELS JEFFERYIRINA Steff 11/05 Released w/o Limitations [facility] [place] F01B [place]) [facility]([place] RCC) TELE CONSULT [id number] Notes Entered by: SAHARA POLLACK 06 Nov 2016 0928 ------- ------- ------- ------- -- NETWORK RESULTS /GI/EGD BX/DOS 7/UPLOA DED IN TEJAS SAHARA RAMÍREZ 11/06 Other Not Elsewhere Classified [facility](M [facility] [facility]) [facility]([place] Echo Pain Teleconfe ren) TELE CONSULT [id number] Notes Entered by: [place] LECAH 13 Nov 2016 1735 ------- ------- ------- ------- -- ECHO Pain TeleCon ference Present ation 04 Sep 2016 DARRIAN LEACH 11/14 [facility]([place] Echo Pain Telecon ference ) [facility] [place] F01B [facility]) OUTPATIENT [id number] Notes Entered by: Christiana FAM 30 Dec 2016 1731 ------- ------- ------- ------- -- case managem ent SOHAM FAM 12/31 Released w/o Limitations [facility] [place] F01B [place]) [facility] F01B [place]) TELE CONSULT [id number] Notes Entered by: Christiana FAM 08 Jan 2017 1427 ------- ------- ------- ------- -- radiolo gy request s JOSSELIN NEGRON 01/08 [facility]ment [facility] 1[facility] [place]) [facility]) OUTPATIENT [id number] Pt fell, hurt her back JEANA PABLO Wero 01/08 Released w/o Limitations [facility]) [facility](Ana rosurgery ) OUTPATIENT [id number] had fall recentl y needs reeval. RAYMOND KENNEDY 01/20 Released w/o Limitations [facility](N eurosur melissa) [facility] Health Outcome Managemen t) OUTPATIENT [id number] Notes Entered by: Christiana FAM 26 Jan 2017 1212 ------- ------- ------- ------- -- case managem ent SOHAM FAM 01/26 Released w/o Limitations [facility] Health Outcome Managem ent) [facility] [place] [address]) TELE CONSULT [id number] Notes Entered by: JOSSELIN NEGRON 29 Jan 2017 0838 ------- ------- ------- ------- -- Imaging results ERIC JESSIAC 01/29 [facility] for Appointment [facility] 1[facility] [place]) [facility] y Medical [place] [address]) OUTPATIENT [id number] review dexa scan and labs JOSE RUANO V 02/06 Released w/o Limitations [facility] 1[facility] [place]) [facility] ) OUTPATIENT [id number] eye exam PAU KOEHLER 02/13 Released w/o Limitations [facility] Optomet ry) [facility] Health Outcome Managemen t) OUTPATIENT [id number] Notes Entered by: Christiana FAM 17 Mar 2017 1106 ------- ------- ------- ------- -- case managem ent SOHAM FAM 03/17 [facility] Health Outcome Managem ent) [facility]([address] [place]) TELE CONSULT [id number] Notes Entered by: Christiana FAM 19 Mar 2017 1640 ------- ------- ------- ------- -- referra christiana request for Bariatr ic Surgery ERIC JESSICA 03/19 [facility] for [facility]ment [facility](A [place] [address] [facility]) [facility]([place] [address] Griff) OUTPATIENT [id number] referra villeda for bariatr ic surgery PABLO HILLS 03/23 Released w/o Limitations [facility](A [place] [address]3031[place] [facility]) [facility]) OUTPATIENT [id number] well woman exam/di scuss hormone MARIBELL Zazueta 03/26 Released w/o Limitations [facility]) [facility] Breast Pathway [facility]) TELE CONSULT [id number] Notes Entered by: GABY MOLINA 01 Apr 2017 1447 ------- ------- ------- ------- -- Family armando castañeda cancer evp general counsel GABY MORE 04/01 [facility] Breast Pathway [facility]) [facility]([place] [address] [facility]) TELE CONSULT [id number] Notes Entered by: Christiana FAM 16 Apr 2017 1408 ------- ------- ------- ------- -- MED REFILL JESSICAERIC MG Christiana 04/16 Medication Refill Forwarded [facility](A y Medical Home F01B [place]) [facility] C Health Outcome Managemen t) OUTPATIENT [id number] Notes Entered by: Christiana FAM 21 Apr 2017 0929 ------- ------- ------- ------- -- case managem ent SOHAM FAM 04/21 Released w/o Limitations [facility] Health Outcome Managem ent) [facility](Gen eral Surgery) OUTPATIENT [id number] Obesity , unspeci fied IAN LOPEZ 04/23 Released w/o Limitations [facility](G eneral Surgery ) [facility](Ana rology Clinic) OUTPATIENT [id number] BotADRIAN Parson 04/24 Released w/o Limitations [facility](N eurolog y Clinic) [facility]([place] Weight Managemen t Case Managemen t) OUTPATIENT [id number] Bariatr ic intake JOSE E CANALES 04/28 Released w/o Limitations [facility]([place] Weight Managem ent Case Managem ent) [facility] Nutrition Clinic) OUTPATIENT [id number] healthy eating PATEL QUINN 04/28 Released w/o Limitations [facility]([place] Nutriti on Clinic) [facility] y Medical Home F01B [place]) OUTPATIENT [id number] Initial bariatr ic pathway PABLO HILLS 04/28 Released w/o Limitations [facility](A y Medical Home F01B [place]) [facility]([place] Social Work Outpatien t) OUTPATIENT [id number] Bariatr ic Support Group FRANSICO VEGA 04/29 Released w/o Limitations [facility](M ad[place] Social Work Outpati ent) [facility] Medical [facility] [place] [place]) TELE CONSULT [id number] PABLO HILLS 05/05 [facility](A [facility] Medical Home F01B [place]) [facility]([place] [facility] [employer] [facility]) OUTPATIENT [id number] JERROD BARTON 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, COULD NO RETRIEV E RCLIN, GEORGIE GREENE 05/19 Released w/o Limitations [facility]([place] [facility] [employer] [facility]) [facility]([place] Weight Managemen t Case Managemen t) OUTPATIENT [id number] Notes Entered by: ZARINA IBRAHIM 21 May 2017 0752 ------- ------- ------- ------- -- Chart review for bariamna akins DEVORAH ALCARAZ 05/21 Released w/o Limitations [facility]([place] Weight Managem ent Case Managem ent) [...] Pharmacy PSYCHOTHERAPY, 60 MINUTES WITH PATIENT 06/04 DoD COORDINATED CARE FEE, MAINTENANCE RATE 05/21 DoD HEALTH AND BEHAVIOR INTERVENTION, EACH 15 MINUTES, [id number]; GROUP (2 OR MORE PATIENTS) 04/28 [facility] MEDICAL NUTRITION THERAPY; GROUP (2 OR MORE INDIVIDUAL(S)), EACH 30 MINUTES 04/28 DoD COORDINATED CARE FEE, RISK ADJUSTED MAINTENANCE 04/28 DoD INJECTION(S), ANESTHETIC AGENT(S) AND/OR STEROID; GREATER OCCIPITAL NERVE 04/24 DoD PSYCHOTHERAPY, 60 MINUTES WITH PATIENT 04/23 DoD PHYS/OTH QUALIFIED HEALTH SENSOR OPERATOR QUALIFIED,EDUCATIO N,TRAIN,LICENSURE/ REGULATION (WHEN APPLICABLE) EDUC SER RENDERED TO PATS IN A GRP SETTING (EG,,OBESI TY,OR DIABETIC INSTRUCT) 04/23 [facility] BRIEF EMOTIONAL/BEHAVIOR AL ASSESSMENT (EG, DEPRESSION [...] NUMBER OF CONSTITUENTS; W/O MICRO, NON-AUTO 09/23 [facility] MEDICATION THERAPY MGT SERVICE(S) PROVIDED,A PHARMACISTWOOD F YAHAIRA-TO-FACE W PATIENT,WITH ASSESS & INTERVENE IF PROVIDED;EA ADDITION 15 MINUTES (LIST SEPARATELY IN ADDITION TO CODE FOR PRIM SERVICE) 09/19 DoD COORDINATED CARE FEE, RISK ADJUSTED MAINTENANCE, LEVEL 3 09/16 DoD EXCISION OF LUMBOSACRAL DISC, OPEN APPROACH 09/11 DoD INSPECTION OF LUMBOSACRAL JOINT, OPEN APPROACH 09/11 DoD POSTOPERATIVE FOLLOW-UP VISIT, [...] POSTOPERATIVE PERIOD REASON RELATED ORIGINAL PROCEDURE 09/09 DoD LAMINOTOMY (HEMILAMINECTOMY), WITH DECOMPRESSION OF NERVE ROOT(S), [...] DoD PSYCHOTHERAPY, 60 MINUTES WITH PATIENT 08/26 [facility] PHYS/OTH QUALIFIED HEALTH SENSOR OPERATOR QUALIFIED,EDUCATIO N,TRAIN,LICENSURE/ REGULATION (WHEN APPLICABLE) EDUC SER RENDERED TO PATS IN A GRP SETTING (EG,,OBESI TY,OR DIABETIC INSTRUCT) 08/21 DoD CASE MANAGEMENT, EACH 15 MINUTES 08/20 DoD PSYCHIATRIC DIAGNOSTIC EVALUATION WITH MEDICAL SERVICES 08/07 DoD CASE MANAGEMENT, EACH 15 MINUTES 08/05 DoD BRIEF EMOTIONAL/BEHAVIOR AL ASSESSMENT (EG, DEPRESSION INVENTORY, ATTENTION-DEFICIT/ HYPERACTIVITY DISORDER [ADHD] SCALE), WITH SCORING AND DOCUMENTATION, PER STANDARDIZED INSTRUMENT 08/04 [facility] PSYCHIATRIC DIAGNOSTIC EVALUATION 07/31 DoD CASE MANAGEMENT, EACH 15 MINUTES 07/29 DoD INJECTION(S), ANESTHETIC AGENT(S) AND/OR STEROID; GREATER OCCIPITAL NERVE 07/16 [facility] CASE MANAGEMENT, EACH 15 MINUTES 07/15 [facility] PNEUMOCOCCAL POLYSACCHARIDE VACCINE, 23-VALENT (PPSV23), ADULT OR IMMUNOSUPPRESSED PATIENT DOSAGE, WHEN ADMINISTERED TO INDIVIDUALS 2 YEARS OR OLDER, FOR SUBCUTANEOUS OR INTRAMUSCULAR USE 07/09 [facility] PSYCHOTHERAPY, 45 MINUTES WITH PATIENT 07/09 DoD CASE MANAGEMENT, EACH 15 MINUTES 07/09 DoD CASE MANAGEMENT, EACH 15 MINUTES 07/02 DoD PSYCHOTHERAPY, 45 MINUTES WITH PATIENT 06/17 [facility] INTRAVENOUS INFUSION, HYDRATION; EACH ADDITIONAL HOUR (LIST SEPARATELY IN ADDITION TO CODE FOR PRIMARY PROCEDURE) 06/14 [facility] COORDINATED CARE FEE, RISK ADJUSTED MAINTENANCE [...] 24 HR/SOON APT;5-10 MIN MED DIS 03/21 [facility] BIOPSY,BREAST,W PLACEMENT OF BREAST LOCALIZATION DEVICE(S) (EG,CLIP,METALLIC PELLET),WHEN PERFORMED,AND IMAGING OF THE BIOPSY SPECIMEN,WHEN PERFORMED,PERCUT;F IRST LESION,INCLUDING ULTRASOUND GUIDANCE 03/18 [facility] PHYS/OTH QUALIFIED HEALTH SENSOR OPERATOR QUALIFIED,EDUCATIO N,TRAIN,LICENSURE/ REGULATION (WHEN APPLICABLE) EDUC SER RENDERED TO PATS IN A GRP SETTING (EG,,OBESI TY,OR DIABETIC INSTRUCT) 03/13 [facility] CASE MANAGEMENT, EACH 15 MINUTES 02/27 [facility] EDUCATION &TRAINING, PATIENT SELF-MGT QUALIFIED, NONPHYSICIAN HEALTH SENSOR OPERATOR USING STDIZED CURRICULUM, [id number] W THE PATIENT (COULD INCL CAREGIVER/FAMILY) EA 30 MIN; INDIVIDUAL PATIENT 02/20 [facility] CASE MANAGEMENT, EACH 15 MINUTES 02/19 [facility] INTRODUCTION OF OTHER THERAPEUTIC SUBSTANCE INTO SUBCUTANEOUS TISSUE, PERCUTANEOUS APPROACH 02/14 DoD INJECTION, ENOXAPARIN SODIUM, 10 MG 02/13 DoD CASE MANAGEMENT, EACH 15 MINUTES 02/12 DoD TRANSFUSION OF NONAUTOLOGOUS RED BLOOD CELLS INTO PERIPHERAL VEIN, PERCUTANEOUS APPROACH 01/27 DoD HEALTH AND BEHAVIOR INTERVENTION, EACH 15 MINUTES, [id number]; FAMILY (WITH THE PATIENT PRESENT) 01/23 DoD HEALTH&BEHAV ASSESSMENT (EG, HEALTH-FOC CLINICAL INTERVIEW, BEHAVIORAL OBSERVATIONS, PSYCHOPHYSICOLOGIC AL MONITOR, HEALTH-ORIENT QUESTIONNAIRES), EA 15 MIN [id number] W THE PATIENT; INIT ASSESSMENT 01/22 DoD [...] OR PROTECTIVE EQUIPMENT 01/20 DoD BED MOBILITY TREATMENT USING ASSISTIVE, ADAPTIVE, SUPPORTIVE OR PROTECTIVE EQUIPMENT 01/20 DoD INTRODUCTION OF OTHER THERAPEUTIC SUBSTANCE INTO SUBCUTANEOUS TISSUE, PERCUTANEOUS APPROACH 01/20 DoD MOTOR FUNCTION ASSESSMENT OF NEUROLOGICAL SYSTEM - LOWER BACK / LOWER EXTREMITY 01/20 DoD INTRODUCTION OF ANALGESICS, HYPNOTICS, SEDATIVES INTO PERIPHERAL VEIN, PERCUTANEOUS APPROACH 01/20 DoD HEALTH&BEHAV ASSESSMENT (EG, HEALTH-FOC CLINICAL INTERVIEW, BEHAVIORAL OBSERVATIONS, PSYCHOPHYSICOLOGIC AL MONITOR, HEALTH-ORIENT QUESTIONNAIRES), EA 15 MIN [id number] W THE PATIENT; INIT ASSESSMENT 01/17 DoD INJECTION, MORPHINE SULFATE, UP TO 10 MG [...] 24 HR/SOON APT;5-10 MIN MED DIS 05/02 [facility] Coordinated care fee, risk adjusted maintenance 02/18 SOHAM FAM [facility] Non-Physician Phone Call To Patient/Provider Brief (5-10min) Non-Physician Phone Call To Patient/Provider Brief (5-10min) [id number] 11/27 GLENDY SILVA [facility] Medical Nutrition Therapy Group (2 or More Individual(s)) Medical Nutrition Therapy Group (2 or More Individual(s)) [id number] 11/22 MANUEL MOSS [facility] Non-Physician Phone Call To Patient/Provider Brief (5-10min) Non-Physician Phone Call To Patient/Provider Brief (5-10min) [id number] GLENDY SILVA [facility] Non-Physician Phone Call To Patient/Provider Brief (5-10min) Non-Physician Phone Call To Patient/Provider Brief (5-10min) [id number] 09/13 AISHWARYA KLEIN [facility] Non-Physician Phone Call To Patient/Provider Brief (5-10min) Non-Physician Phone Call To Patient/Provider Brief (5-10min) [id number] 08/20 GLENDY SILVA [facility] Case Management, each 15 minutes 08/01 JOSR HAYES [facility] Case Management, each 15 minutes 07/31 JOSR HAYES 45 minutes - review of records, completion and fax of UHCM&V CM referral, and documentation [facility] Determination Of Refractive State Determination Of Refractive State 72528 07/04 TERRELL WILLAMS [facility] Ophthalmological New Patient Start Comprehensive Care Ophthalmological New Patient Start Comprehensive Care [id number] 07/04 TERRELL WILLAMS [facility] Non-Physician Phone Call To Patient/Provider Brief (5-10min) Non-Physician Phone Call To Patient/Provider Brief (5-10min) [id number] 06/26 GLENDY SILVA [facility] Screening papanicolaou smear; obtaining, preparing and conveyance of cervical or vaginal smear to laboratory 06/25 ALL BERNAL [facility] Non-Physician Phone Call To Patient/Provider Brief (5-10min) Non-Physician Phone Call To Patient/Provider Brief (5-10min) [id number] 06/11 AISHWARYA KLEIN [facility] Non-Physician Phone Call To Patient/Provider Brief (5-10min) Non-Physician Phone Call To Patient/Provider Brief (5-10min) [id number] 05/03 ANGUS PEREZ [facility] Case Management, each 15 minutes 05/21 DEVORAH ALCARAZ Chart review, relay health, and documentation [facility] Coordinated care fee, maintenance rate 05/21 DEVORAH ALCARAZ [facility] Health And Behav Intervention, Each 15 Min Grp (2 Or More) Health And Behav Intervention, Each 15 Min Grp (2 Or More) [id number] 04/29 FRANSICO VEGA [facility] Medical Nutrition Therapy Group (2 or More Individual(s)) Medical Nutrition Therapy Group (2 or More Individual(s)) [id number] 04/28 PATEL JARA [facility] Coordinated care fee, risk adjusted maintenance 04/28 JOSE E CANALES [facility] Case Management, each 15 minutes 04/28 JOSE E CANALES AG#1,5,1,17 [facility] Injection, onabotulinumtoxina , 1 unit 04/26 ADRIAN TAPIA [facility] Nerve Block Greater Occipital 04/26 ADRIAN TAPIA [facility] -Supervised Group Educational Services -Supervised Group Educational Services [id number] 04/24 IAN LOPEZ [facility] -Supervised Services Provision Of Educational Supplies -Supervised Services Provision Of Educational Supplies [id number] 04/24 IAN LOPEZ [facility] Case Management, each 15 minutes 04/23 SOHAM FAM 2.5 hours for targeted assessment and coordination of services. [facility] Coordinated care fee, maintenance rate 04/23 SOHAM FAM Immunization Administration One Vaccine Immunization Administration One Vaccine 82442 03/27 PABLO HILLS Hepatitis A And Hepatitis B (Intramuscular Use) Adult Dosage Hepatitis A And Hepatitis B (Intramuscular Use) Adult Dosage 70346 03/27 [place]LO [place] Hep A-Hep B; Series #: 1; 1.0 mL; IM; Left Arm; Mfg: [employer]; Lot: [id number]; VIS given (Michael: 03/05/16; 03/05/16). [facility] Case Management, each 15 minutes 03/19 3 hours for targeted assessmetn and complex coordination of services. [facility] Coordinated care fee, risk adjusted maintenance 03/19 [facility] Determination Of Refractive State Determination Of Refractive State 47181 02/13 CHAO KOEHLER [facility] Ophthalmological New Patient Start Comprehensive Care Ophthalmological New Patient Start Comprehensive Care [id number] 02/13 CHAO KOEHLER Coordinated care fee, risk adjusted maintenance 01/30 SOHAM FAM 3.5 hrs spent on coordination of care, targeted assessment, and emotional support. Hanane Case Management, each 15 minutes 01/30 SOHAM FAM Case Management, each 15 minutes 01/06 SOHAM FAM 4 hrs for targeted assessment, coordination of services, and careplan. [facility] Coordinated care fee, risk adjusted maintenance 01/06 SOHAM FAM Nerve Block Greater Occipital 10/30 ADRIAN TAPIA Injection, onabotulinumtoxina , 1 unit 10/30 ADRIAN TAPIA Case Management, each 15 minutes 10/22 SOHAM FAM 3 hours for targeted assessment, coordination of care, and followup phone calls. [facility] Coordinated care fee, risk adjusted maintenance 10/22 SOHAM FAM Coordinated care fee, risk adjusted maintenance 09/26 SOHAM FAM Case Management, each 15 minutes 09/26 SOHAM FAM 4 hrs for targeted assessment, 3 phone followups, complex coordination of services, and patient activation simple for education. [facility] Routine UA Without Microscopic Examination Routine UA Without Microscopic Examination 99643 09/23 DOUGIE DIAZ Cystoscopy (Diagnostic) Cystoscopy (Diagnostic) 09749 09/23 DOUGIE DIAZ [facility] Medication Management By Pharmacist Each Additional 15 Min Medication Management By Pharmacist Each Additional 15 Min [id number] 09/19 BRADY SAUCEDO [facility] Med Management By Pharmacist Initial 15 Min New Patient Med Management By Pharmacist Initial 15 Min New Patient [id number] 09/19 BRADY SAUCEDO [facility] Intervention And Counseling On Ce ation Of Tobacco Use Intervention And Counseling On Cessation Of Tobacco Use 4000F 09/19 BRADY SAUCEDO [facility] Case Management, each 15 minutes 09/17 SOHAM FAM 2 hrs spent doing inpatient hospital followup and coordination of services. [facility] Coordinated care fee, risk adjusted maintenance, Level 3 09/17 SOHAM FAM DoD Case Management, each 15 minutes 09/05 SOHAM FAM 4 hours for inpatient hospital followup, complex coordination of services, Multi D meeting for pain mgmt, and 2 followup phone calls. [facility] Coordinated care fee, risk adjusted maintenance 09/05 SOHAM FAM [facility] Coordinated care fee, maintenance rate 09/04 JOSE E CANALES DoD Case Management, each 15 minutes 09/04 JOSE E CANALES AG#2 DoD Case Management, each 15 minutes 08/26 SOHAM FAM 3 hours for targeted assessment, coordination of services with , emotional support. [facility] Coordinated care fee, risk adjusted maintenance 08/26 SOHAM FAM [facility] Psychiatric Evaluation Review of Records and Reports Psychiatric Evaluation Review of Records and Reports 74194 08/21 IESHA LUONG The patient's available records (medication/pres criptions, relevant progress notes, and relevant labs) were reviewed outside of a face to face appointment for the purpose of aiding in treatment planning and/or development of diagnoses. DoD Case Management, each 15 minutes 08/07 SOHAM FAM 3 hrs spent with patient for targeted assessments, followup phone calls X 3, complex coordination of services. [facility] Coordinated care fee, risk adjusted maintenance 08/07 SOHAM AFM [facility] Psychiatric Evaluation Comprehensive Examination Psychiatric Evaluation Comprehensive Examination 97738 07/31 YURIY LOPEZ DoD Case Management, each 15 minutes 07/31 SOHAM FAM 3 hours for targeted assessment, complex coordination of care. DoD Coordinated care fee, risk adjusted maintenance 07/31 SOHAM FAM Case Management, each 15 minutes 07/18 SOHAM FAM 4 hrs this week working on targeted assessment, complex coordination of services with multiple providers of care, multiple followup phone calls to patient, [facility] Coordinated care fee, risk adjusted maintenance, Level 3 07/18 SOHAM FAM Nerve Block Greater Occipital 07/16 ADRIAN TAPIA Injection, onabotulinumtoxina , 1 unit 07/16 ADRIAN TAPIA Psychiat Ther Indiv Interactive Approximately 45-50 Minutes 07/16 VÍCTOR CRUZ Case Management, each 15 minutes 07/16 SOHAM FAM 3 hours for targeted assessment, coordination of referrals, and emotional support for pain management and lack of function. [facility] Coordinated care fee, risk adjusted maintenance 07/16 SOHAM FAM Immunization Administration One Vaccine Immunization Administration One Vaccine 58777 07/09 VÍCTOR RODRIGUEZ [facility] Immunization Administration Each Additional Vaccine Immunization Administration Each Additional Vaccine 00645 07/09 VÍCTOR RODRIGUEZ 1. Patient denies feeling sick with fever 2. Patient denies having a serious reaction to a flu vaccine 3. Patient denies having [place] syndrom (GBS) 4. Patient denies having a [...] benefits and risks of the influenza vaccine. [facility] Tdap Vaccine Tdap Vaccine 81765 07/09 VÍCTOR RODRIGUEZ Tdap; Series #: 1; .5 mL; IM; Right Arm; Mfg: [employer]; Lot: [id number]; VIS given (Michael: 10/10/14). [facility] Pneumococcal Polysaccharide Vaccine (Age 2Y+) Pneumococcal Polysaccharide Vaccine (Age 2Y+) 06408 07/09 VÍCTOR RODRIGUEZ Pneumococcal polysaccharide PPV23; Series #: 1; .5 mL; IM; Left Arm; Mfg: [employer]; Lot: [id number]; VIS given (Michael: 12/08/14). [facility] Case Management, each 15 minutes 07/03 SOHAM FAM Targeted assessment, coordination of care, Multi D discussions. [facility] Coordinated care fee, risk adjusted maintenance 07/03 SOHAM FAM [facility] Psychiat Ther Indiv Interactive Approximately 45-50 Minutes 06/24 VÍCTOR CRUZ Case Management, each 15 minutes 05/22 SOHAM FAM 3 hours for targeted assessment and complex coordination of care, [facility] Coordinated care fee, risk adjusted maintenance 05/22 SOHAM FAM Case Management, each 15 minutes 05/15 SOHAM FAM 5 hours for comprehensive care to targeted/modifie d followup for pain, updated careplan, complex coordination of services for multiple referrals, individual emotional support to include LUKAS and Depression scoring. [facility] Coordinated care fee, risk adjusted maintenance 05/15 SOHAM FAM Non-Physician Phone Call To Patient/Provider Brief (5-10min) Non-Physician Phone Call To Patient/Provider Brief (5-10min) [id number] 04/14 KATHY GROVES Non-Physician Phone Call To Patient/Provider Brief (5-10min) Non-Physician Phone Call To Patient/Provider Brief (5-10min) 58523 03/[address]Supervised Services Provision Of Educational Supplies -Supervised Services Provision Of Educational Supplies 80387 03/[address]Supervised Group Educational Services -Supervised Group Educational Services 13649 03/13 GABY MORE Case Management, each 15 minutes 03/04 SOHAM FAM 3 hours with multiple f/u calls to patient, complex coordinaton of services with multiple specialties and appts needed, Mult D meeting with two providers of care. [facility] Coordinated care fee, risk adjusted maintenance 03/04 SOHAM FAM Medication Management By Pharmacist Each Additional 15 Min Medication Management By Pharmacist Each Additional 15 Min 17846 02/25 STEVEN BAXTER Med Management By Pharmacist Initial 15 Min New Patient Med Management By Pharmacist Initial 15 Min New Patient [id number] 02/25 STEVEN BAXTER Preventive Medicine Anticoagulant Therapy Warfarin Preventive Medicine Anticoagulant Therapy Warfarin 4012F 02/25 STEVEN BAXTER Patient Counseling Medical Management Individual Patient Patient Counseling Medical Management Individual Patient [id number] 02/25 STEVEN BAXTER Case Management, each 15 minutes 02/21 SOHAM FAM 3 hrs spent doing Transitional Care post discharge from hospital, multi D with several providers of care, patient teaching/activat ion regarding anticoagulation therapy to assess understanding, and coordination of service. [facility] Coordinated care fee, risk adjusted maintenance, Level 3 02/21 SOHAM FAM Case Management, each 15 minutes 02/18 SOHAM FAM 5 hrs spent on the following: Initial Assessment, Face To Face Health Care Goal Planning, Complex Coordination of a Service with multiple specialties, Risk Assessment, Hospital Discharge, [facility] Social History Combined list of available [...] section is an empty social history section. [facility] Assessment and Plan Combined list of [...] will be administered at a later time/date. W e discussed the possibility of changing or adding an oral preventative as an adjunct which helps synergistically but mutually decided to keep the current regimen unchanged. The abortives will remain unchanged as well. 2. Cervicalgia. I will proceed with Botox today. 3. O ccipital neuralgia. W e will administer block admixed with Botox as discussed with pain management. 4. TMJ. S he describes severe teeth clenching which seem to be triggering her migraines and that she may benefit from masseter and temporalis injections as well. The risks, benefits, side effects, and alternatives of therapy discussed with the patient, who verbalizes understanding. I spent 21 minutes of my 40 minutes [id number] with the patient discussing the examination, therapy, [...] the procedure well. Adrian Tapia MD [facility] Interventional Neuroradiology Staff [facility] Ordered: onabotulinumtoxinA, 200 units, IntraMuscular, Injection, Once, First Dose: 02/25/2018 16:00:00 PDT, Stop Date: 02/25/2018 16:00:00 PDT CHEMODEN,1 EXT;EA ADD,1-4 [facility] [place] [address] N Block Inj, Occipital 77550 Common migraine without aura Ordered: onabotulinumtoxinA, 200 units, IntraMuscular, Injection, Once, First Dose: 02/25/2018 16:00:00 PDT, Stop Date: 02/25/2018 16:00:00 PDT [place] Musc Migraine 86302 Extracted from:Title: Office Clinic Note Author: PRITESHJACOBY Date: 01/26/18 1. D evice status Ordered: Ankle foot orthosis, ankle gauntlet L1902 Foot, arch support, removable, premolded, longitudinal L3040 Orthotic Mgmt+Trainj Uxtr Lxtr+/Trnk Ea 15 Min 85409 2. T ibialis tendonitis Ordered: Ankle foot orthosis, ankle gauntlet L1902 Foot, arch support, removable, premolded, longitudinal L3040 Orthotic Mgmt+Trainj Uxtr Lxtr+/Trnk Ea 15 Min 47983 3. T ibialis tendonitis Ordered: Ankle foot orthosis, ankle gauntlet L1902 Foot, arch support, removable, premolded, longitudinal L3040 Orthotic Mgmt+Trainj Uxtr Lxtr+/Trnk Ea 15 Min 32619 Extracted from:Title: Neurology Office Visit Note Author: [...] spent 21 minutes of my 40 minutes [id number] with the patient discussing the examination, therapy, [...] the procedure well. Adrian Tapia MD [facility] Interventional Neuroradiology Ordered: Bilateral N Block Inj, Occipital 79712 Office Visit Level 4 Est 22874 Extracted from:Title: General Surgery Clinic Note Author: SAQIB SOO Date: 12/15/17 32yoF with non-reducible LLQ mass. [...] understanding. Ordered: Office Visit Level 4 Est 59985 2. P endulous breast Bilateral. Will refer back to Plastics Clinic for further evaluation and treatment. Ordered: Office Visit Level 4 Est 30528 3. B ilateral foot pain Chronic. Will get bilateral foot xrays and will refer patient to Podiatry Clinic. patient is aware that her weight is a contributing factor. 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 C najmaadama migraine without aura OnabotulinumtoxinA(Botox) injections Lot #: [id number] Expiration Date: MAR 2020 Concentration: 0.1ml = 5 units, no EMG guidance Muscle Right ? L eft Procerus midline 5 Property Manager 5 units ? 5 units Frontalis 5 [...] Date: 12/03/2017 15:00:00 PDT [place] Musc Migraine 06189 Office Visit Level 2 Est 99545 Extracted from:Title: Clinical Pharmacy Note Bariatric Pathway [...] decreased. Recommend using calcium citrate. o [facility] patients who require medication for [...] Ordered: Medication Therapy Each Additional 15 Min 94776 Medication Therapy Initial 15 Min New Patient [id number] Extracted from:Title: Neurology Office Visit Note Author: [...] spent 21 minutes of my 40 minutes [id number] with the patient discussing the examination, therapy, [...] # 30 tabs, 0 total refill(s), 08/20/2017, [facility] pharmacy dispense (Rx) [Not filled] XR Calcaneous Left 01/28/[address] [place] [address] Assessment and Plan Extracted from:Title : Neurology [...] with Botox today. 3. O ccipital neuralgia. Lucinda santillan will administer block admixed with Botox as discussed with pain management. 4. TMJ. S he describes severe teeth clenching which seem to be triggering her migraines and that she may benefit from masseter and temporalis injections as well. The risks, benefits, side effects, and alternatives of therapy discussed with the patient, who verbalizes understanding. I spent 21 minutes of my 40 minutes [id number] with the patient discussing the examination, therapy, [...] the procedure well. Adrian Tapia MD [facility] Interventional Neuroradiology Staff [facility] Ordered: onabotulinumtoxinA, 200 units, IntraMuscular, Injection, Once, First Dose: 02/25/2018 16:00:00 PDT, Stop Date: 02/25/2018 16:00:00 PDT CHEMODEN,1 EXT;EA ADD,1-4 [facility] [place] [address] N Block Inj, Occipital 10279 Common migraine without aura Ordered: onabotulinumtoxinA, 200 units, IntraMuscular, Injection, Once, First Dose: 02/25/2018 16:00:00 PDT, Stop Date: 02/25/2018 16:00:00 PDT [place] [facility] [id number] Extracted from:Title: Office Clinic Note Author: JACOBY JONAS Date: 01/26/18 1. D evice status Ordered: Ankle foot orthosis, ankle gauntlet L1902 Foot, arch support, removable, premolded, longitudinal L3040 Orthotic Mgmt+Trainj Uxtr Lxtr+/Trnk Ea 15 Min 66025 2. T ibialis tendonitis Ordered: Ankle foot orthosis, ankle gauntlet L1902 Foot, arch support, removable, premolded, longitudinal L3040 Orthotic Mgmt+Trainj Uxtr Lxtr+/Trnk Ea 15 Min 64386 3. T ibialis tendonitis Ordered: Ankle foot orthosis, ankle gauntlet L1902 Foot, arch support, removable, premolded, longitudinal L3040 Orthotic Mgmt+Trainj Uxtr Lxtr+/Trnk Ea 15 Min 39133 Extracted from:Title: Neurology Office Visit Note Author: [...] spent 21 minutes of my 40 minutes [id number] with the patient discussing the examination, therapy, [...] tolerated the procedure well. Adrian Tapia MD [facility], Interventional Neuroradiology Ordered: Bilateral N Block Inj, Occipital 07650 Office Visit Level 4 Est 67597 Extracted from:Title: General Surgery Clinic Note Author: [...] understanding. Ordered: Office Visit Level 4 Est 41705 2. P endulous breast Bilateral. Will refer back to Plastics Clinic for further evaluation and treatment. Ordered: Office Visit Level 4 Est 88076 3. B ilateral foot pain Chronic. Will get bilateral foot xrays and will refer patient to Podiatry Clinic. patient is aware that her weight is a contributing factor. 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 C reva migraine without aura OnabotulinumtoxinA(Botox) injections Lot #: [id number] Expiration Date: MAR 2020 Concentration: 0.1ml = 5 units, no EMG guidance Muscle Right ? L eft Procerus midline 5 Property Manager 5 units ? 5 units Frontalis 5 [...] Date: 12/03/2017 15:00:00 PDT [place] 59744 Office Visit Level 2 Est 35121 Extracted from:Title: Clinical Pharmacy Note Bariatric Pathway [...] decreased. Recommend using calcium citrate. o [facility] patients who require medication for [...] Ordered: Medication Therapy Each Additional 15 Min 15733 Medication Therapy Initial 15 Min New Patient [id number] Extracted from:Title: Neurology Office Visit Note Author: [...] spent 21 minutes of my 40 minutes [id number] with the patient discussing the examination, therapy, [...] # 30 tabs, 0 total refill(s), 08/20/2017, [facility] pharmacy dispense (Rx) [Not filled] XR Calcaneous Left 01/28/[address] [place] [address] Functional Status Combined list of recent functional and cognitive assessments recorded at [facility] Functional [place] Measurement (FIM) Scale: 1 = Total Assistance (Subject = 0% +), 2 = Maximal Assistance (Subject = 25% +), 3 = Moderate Assistance (Subject = 50% +), 4 = Minimal Assistance (Subject = 75% +), 5 = Supervision, 6 = Modified [place] (Device), 7 = Complete [place] (Timely, Safely). Assessment Date/Time Source Assessment Type Assessment Skill Assessment Score Assessment Details FUNCTIONAL 12/16/17 Home Dietary Supplements Captured Yes
--- NOTE | 2025-01-28 19:55 | CT_ITS ---
PROCEDURE INFORMATION: Exam: CT Abdomen And Pelvis With Contrast Exam date and time: 01/28/2025 9:02 PM Age: 39 years old Clinical indication: Fever and vomiting; Additional info: Vomiting, fever, abd pain TECHNIQUE: Imaging protocol: Computed tomography of the abdomen and pelvis with contrast. Total images: 292 Radiation optimization: All CT scans at this facility use at least one of these dose optimization techniques: automated exposure control; mA and/or kV adjustment per patient size (includes targeted exams where dose is matched to clinical indication); or iterative reconstruction. Contrast material: ISOVUE; Contrast volume: 75 ml; Contrast route: IV; COMPARISON: CT ABDOMEN PELVIS W CON 02/25/2023 10:49 AM FINDINGS: Tubes, catheters and devices: Implanted medical superintendent/pain pump in the left flank subcutaneous tissues with catheter extending into the lower dorsal spine. Lungs: Lung bases are clear. Heart: Normal heart size. Liver: Mild decreased liver attenuation from phase of contrast versus steatosis. Profound focal fatty infiltration in the left hepatic lobe segment 4B. No concerning liver mass. Gallbladder and biliary ducts: Status post cholecystectomy. Interval mild biliary ductal dilatation with the common duct measuring 11 mm. Pancreas: Normal. No ductal dilation. Spleen: Subcentimeter splenic hypodensities too small to characterize but statistically a cyst. No splenomegaly. Adrenal glands: Normal. No mass. Kidneys and ureters: No hydronephrosis, nephrolithiasis, or renal mass. No perinephric fluid. Stomach and bowel: Status post gastric bypass. Considerable gastric wall thickening with submucosal edema and adjacent perigastric edema. Edematous change at the gastrojejunostomy anastomosis as shown previously. Mild fluid distended duodenum. Wall thickening of the proximal jejunum, corresponding with the jejunal anastomosis with short segmental nonobstructing intussusception, axial image 42 through 45. No ileus or bowel obstruction. Fluid-filled nondilated distal small bowel. Unremarkable terminal ileum. Moderate colonic stool burden. Mild sigmoid diverticulosis without diverticulitis. Collapsed rectum. Appendix: No evidence for appendicitis. Intraperitoneal space: Mild mesenteric edema. No ascites. No free air. Vasculature: Nonaneurysmal abdominal aorta. Major abdominal vessels enhance appropriately. Pelvic phleboliths. Lymph nodes: Unremarkable. No enlarged lymph nodes. Urinary bladder: Unremarkable as visualized. Reproductive: Status post hysterectomy. No pelvic mass. Bones/joints: Severe degenerative disc disease L5-S1. Scattered mild degenerative changes remainder of the thoracolumbar spine. Multilevel vertebral body hemangiomas. Partially visualized mild anterior wedging of T10 and T11 vertebral bodies with nonacute features. Soft tissues: Mild body wall edema/anasarca. IMPRESSION: 1. Considerable gastric wall thickening with submucosal edema and adjacent perigastric edema in keeping with acute gastritis. 2. Proximal jejunal wall thickening at the jejunal anastomosis, further complicated by a short segmental intussusception. 3. Mild mesenteric and body wall edema. 4. No bowel obstruction or free air. 5. Fluid-filled nondilated distal small bowel likely sequela of enteritis. 6. Hepatic steatosis. 7. Status post gastric bypass. 8. Additional chronic and incidental findings.
--- OUTSIDE RECORDS SUMMARY | 2025-01-28 19:55 | XMS_ITS | Referral Summary ---
Author Organization [facility] Address [address] [place] [address] Care Team Providers Care Water Conservation Specialist Name Role Phone Luciano Falk MD Primary Care Provider [phone] Allergies No known active allergies Social History Tobacco Use Types Packs/Day Years Used Date Smoking Tobacco: Never Assessed Interpersonal Safety Answer Date Record ed Family or friends hurt you Not on file 09/04 Family or friends insult you Not on file Family or friends threaten you Not on file 0 09/04/2023 Family or friends scream or curse at you Not on file 09/04/2023 Housing Stability Answer Date Recorded Living situation today Not on file Living situation problems Not on file 2023 Food Insecurity Answer Date Recorded Food run out past 12 months Not on file 08/17 Food did not last past 12 months Not on file 09/04/2023 Employment Answer Date Recorded Help finding and keeping a job Not on file 0 09/04/2023 Family and Community Support Answer Jim e Recorded Help with Day to Day Activities Not on file 09/04/2023 Feeling Lonely or Isolated Not on file 09/04 Educational Attainment Answer Date Reese rded Speak language other than Monegasque at home Not on file 09/04/2023 Want help with school or training Not on file 09/04/2023 Depression Answer Date Recorded PHQ-2 Risk Not on file 09/04/2023 Disabilities Answer Date Recorded Difficulty concentrating Not on file 024 Difficulty doing errands alone Not on file 0 09/04/2023 Substance Use Answer Date Recorded Used prescription meds for non-medical reasons N ot on file 09/04/2023 Used illegal drugs past 12 months Not on file 09/04/2023 Comments Unknown Sex and Gender Information Value Date Recorded Sex Assigned at Not on file Legal Sex Female 7:03 PM CDT Gender Identity Not on file Sexual Orientation Not on file Last Filed Vital Signs Vital Sign Reading Time Taken Comments Blood Pressure 107/68 05/09/2023 12:44 PM EDT Pulse 95 05/09/2023 12:44 PM EDT Temperature 36.9 C (98.4 F) 05/09/2023 12:44 PM EDT Respiratory Rate 16 05/09/2023 12:44 PM EDT Oxygen Saturation 100% 05/09/2023 12:44 PM EDT Inhaled Oxygen Concentration - - Weight 81.6 kg (180 lb) 05/09/2023 12:44 PM EDT Height 177.8 cm (5' 10 ) 05/09/2023 12:44 PM EDT Body Mass Index 25.83 05/09/2023 12:44 PM EDT Plan of Treatment Not on file Insurance [facility] Care Teams Water Conservation Specialist Relationship Specialty Start Date End Date Luciano Falk MD [address] [place] [address] PCP - General Adolescent Medicine 05/09/23
--- OUTSIDE RECORDS SUMMARY | 2025-01-28 19:55 | XMS_ITS | Data Portability ---
Author Organization [facility] - [facility] ADMIN Address [address] [place] [id number] Assessment Encounter Date Assessment Date Assessment LastModified by Organization Details LastModified Time 06/23/2024 06/23/2024 Ms. Castrejon was referred by Dr. Velez (neurology) for management of chronic migraines. She denies DM, history of infection, or anti-coagulan t use. [email or web address] Not available 06/23/2024 17:51:54 Plan of Treatment Reminders Order Date Submit Date Provider Last Modified By Organization Details Last Modified Time Details Appointments None recorded. Lab vitamin D, 25-hydroxy, total, serum 2023 024 MARYAM [facility], [address], [address], [place], [address], 4 20:39:28 CBC w/ auto diff 2023 024 MARYAM [facility], [address], [address], [place], [address], 4 20:39:24 thiamine, QN, blood 2023 024 MARYAM [facility], [address], [address], [place], [address], 4 20:39:29 prealbumin, serum 2023 024 MARYAM [facility], [address], [address], [place], [address], 4 20:39:33 copper, serum or plasma 2023 024 MARYAM [facility], [address], [address], [place], [address], 4 20:39:31 selenium, quantitativ e, blood 2023 024 MARYAM [facility], [address], [address], [place], [address], 4 20:39:33 zinc, serum or plasma 2023 024 MARYAM [facility], [address], [address], [place], [address], 4 20:39:32 CMP, serum or plasma 2023 024 MARYAM [facility], [address], [address], [place], [address], 4 20:39:25 iron + TIBC + ferritin, serum 2023 024 MARYAM [facility], [address], [address], [place], [address], 4 20:39:22 folate, serum 2023 024 MARYAM [facility], [address], [address], [place], [address], 4 20:39:27 vitamin E, serum 2023 024 MARYAM [facility], [address], [address], [place], [address], 4 20:39:26 vitamin A (retinol), serum 2023 024 MARYAM [facility], [address], [address], [place], [address], 4 20:39:28 TSH + free T4, serum 2023 024 MARYAM [facility], [address], [address], [place], [address], 4 20:39:23 methylmalon ate, QN, serum or plasma 2023 024 MARYAM [facility], [address], [address], [place], [address], 4 20:39:30 Referral None recorded. Procedures chemodenerv ation of muscle(s); muscle(s) innervated by facial, trigeminal, cervical spinal and accessory nerves, bilateral (PROC) - 93[address], Botox injections for migraines - 155 units 2023 024 [email or web address] Not available 5 11:34:23 Surgeries esophagogas troduodenos copy (SURG) 2023 024 [email or web address] Mia Landaverde MD, [address], [address], [place], [address], 4 11:36:46 Imaging RF, upper gastrointes tinal tract + small bowel, w/ contrast PO 2023 024 [facility] (Centralized Scheduling), [address], [place], [address], 4 13:11:31 Medication Orders Botox 200 unit injection 2023 024 [email or web address] Not available 4 10:31:07 Botox 200 unit injection 2023 024 [email or web address] Not available 4 10:09:04 Botox 200 unit injection 2023 024 [email or web address] Not available 4 11:28:34 thiamine HCl (vitamin B1) 100 mg/mL injection solution 2023 024 [email or web address] Not available 4 10:37:12 cyanocobala min (vit B-12) 1,000 mcg/mL injection solution 2023 024 [email or web address] Not available 4 10:35:04 Patient TargetsNo targets recorded. Patient Instructions Encounter Date Encounter Id Patient Instructions Last Modified By Organization Details Last Modified Time 06/23/2024 [id number] I have discussed in great detail our [...] __ __ __ __ __ _ JACQUI: [id number] I have reviewed patient's JACQUI report prior to prescribing Schedule II, III, and IV medications that require review by law. [email or web address] Not available 06/23/2024 17:53:22 Reason for Referral None Reported. Results Created Date Observation Date Name Description Value Unit Range Abnormal Flag Note LastModifiedBy Organization Detail LastModifiedTime 08/25/19 24 08/26/2023 FE+TI BC+FE R iron bind.cap.(TI BC) 340 ug/dL 250-45 0 Not Available [facility] ([facility]) [address] [place], [address], 08/31/2023 20:39:22 08/25/19 24 08/26/2023 FE+TI BC+FE R UIBC 323 ug/dL 131-42 5 Not Available [facility] ([facility]) [address] [place], [address], 08/31/2023 20:39:22 08/25/19 24 08/26/2023 FE+TI BC+FE R iron 17 ug/dL 27-159 below low normal Not Available [facility] ([facility]) [address] [place], [address], 08/31/2023 20:39:22 08/25/19 24 08/26/2023 FE+TI BC+FE R iron saturation 5 % 15-55 alert low Not Available [facility] ([facility]) [address] [place], [address], 08/31/2023 20:39:22 08/25/19 24 08/26/2023 FE+TI BC+FE R ferritin 19 NG/mL 15-150 Not Available [facility] ([facility]) [address] [place], [address], 08/31/2023 20:39:22 08/25/19 24 08/26/2023 TSH+F REE T4 TSH 1.120 uIU/m L 0.450- 4.500 Not Available [facility] ([facility]) [address] [facility], [place], [address], 08/31/2023 20:39:23 08/25/19 24 08/26/2023 TSH+F REE T4 T4,free(dire ct) 1.10 NG/dL 0.82-1 .77 Not Available [facility] ([facility]) [address] [place], [address], 08/31/2023 20:39:23 08/25/19 24 08/26/2023 CBC WITH DIFFE RENTI AL/PL ATELE T WBC 7.8 x10e3 /uL 3.4-10 .8 Not Available [facility] ([facility]) [address] [place], [address], 08/31/2023 20:39:24 08/25/19 24 08/26/2023 CBC WITH DIFFE RENTI AL/PL ATELE T RBC 4.40 x10e6 /uL 3.77-5 .28 Not Available [facility] ([facility]) [address] [place], [address], 08/31/2023 20:39:24 08/25/19 24 08/26/2023 CBC WITH DIFFE RENTI AL/PL ATELE T hemoglobin 10.6 g/dL 11.1-1 5.9 below low normal Not Available [facility] ([facility]) [address] [facility], [place], [address], 08/31/2023 20:39:24 08/25/19 24 08/26/2023 CBC WITH DIFFE RENTI AL/PL ATELE T hematocrit 34.5 % 34.0-4 6.6 Not Available [facility] ([facility]) [address] [facility], [place], [address], 08/31/2023 20:39:24 08/25/19 24 08/26/2023 CBC WITH DIFFE RENTI AL/PL ATELE T MCV 78 fL 79-97 below low normal Not Available [facility] ([facility]) [address] [facility], [place], [address], 08/31/2023 20:39:24 08/25/19 24 08/26/2023 CBC WITH DIFFE RENTI AL/PL ATELE T MCH 24.1 pg 26.6-3 3.0 below low normal Not Available [facility] ([facility]) [address] [place], [address], 08/31/2023 20:39:24 08/25/19 24 08/26/2023 CBC WITH DIFFE RENTI AL/PL ATELE T MCHC 30.7 g/dL 31.5-3 5.7 below low normal Not Available [facility] ([facility]) [address] [place], [address], 08/31/2023 20:39:24 08/25/19 24 08/26/2023 CBC WITH DIFFE RENTI AL/PL ATELE T RDW 16.1 % 11.7-1 5.4 above high normal Not Available [facility] ([facility]) [address] [place], [address], 08/31/2023 20:39:24 08/25/19 24 08/26/2023 CBC WITH DIFFE RENTI AL/PL ATELE T platelets 263 x10e3 /uL 150-45 0 Not Available [facility] ([facility]) [address] [facility], [place], [address], 08/31/2023 20:39:24 08/25/19 24 08/26/2023 CBC WITH DIFFE RENTI AL/PL ATELE T neutrophils 48 % not estab. Not Available [facility] ([facility]) [address] [facility], [place], [address], 08/31/2023 20:39:24 08/25/19 24 08/26/2023 CBC WITH DIFFE RENTI AL/PL ATELE T lymphs 30 % not estab. Not Available [facility] ([facility]) [address] [facility], [place], [address], 08/31/2023 20:39:24 08/25/19 24 08/26/2023 CBC WITH DIFFE RENTI AL/PL ATELE T monocytes 7 % not estab. Not Available [facility] ([facility]) [address] [facility], [place], [address], 08/31/2023 20:39:24 08/25/19 24 08/26/2023 CBC WITH DIFFE RENTI AL/PL ATELE T eos 14 % not estab. Not Available [facility] ([facility]) [address] [facility], [place], [address], 08/31/2023 20:39:24 08/25/19 24 08/26/2023 CBC WITH DIFFE RENTI AL/PL ATELE T basos 1 % not estab. Not Available [facility] ([facility]) [address] [facility], [place], [address], 08/31/2023 20:39:24 08/25/19 24 08/26/2023 CBC WITH DIFFE RENTI AL/PL ATELE T immature cells AUDIT MGR Not Available [facility] ([facility]) [address] [facility], [place], [address], 08/31/2023 20:39:24 08/25/19 24 08/26/2023 CBC WITH DIFFE RENTI AL/PL ATELE T neutrophils (absolute) 3.9 x10e3 /uL 1.4-7. 0 Not Available [facility] ([facility]) [address] [facility], [place], [address], 08/31/2023 20:39:24 08/25/19 24 08/26/2023 CBC WITH DIFFE RENTI AL/PL ATELE T lymphs (absolute) 2.3 x10e3 /uL 0.7-3. 1 Not Available [facility] ([facility]) [address] [facility], [place], [address], 08/31/2023 20:39:24 08/25/19 24 08/26/2023 CBC WITH DIFFE RENTI AL/PL ATELE T monocytes(ab solute) 0.5 x10e3 /uL 0.1-0. 9 Not Available [facility] ([facility]) [address] [facility], [place], [address], 08/31/2023 20:39:24 08/25/19 24 08/26/2023 CBC WITH DIFFE RENTI AL/PL ATELE T eos (absolute) 1.1 x10e3 /uL 0.0-0. 4 above high normal Not Available [facility] ([facility]) [address] [facility], [place], [address], 08/31/2023 20:39:24 08/25/19 24 08/26/2023 CBC WITH DIFFE RENTI AL/PL ATELE T baso (absolute) 0.1 x10e3 /uL 0.0-0. 2 Not Available [facility] ([facility]) [address] [place], [address], 08/31/2023 20:39:24 08/25/19 24 08/26/2023 CBC WITH DIFFE RENTI AL/PL ATELE T immature granulocytes 0 % not estab. Not Available [facility] ([facility]) [address] [facility], [place], [address], 08/31/2023 20:39:24 08/25/19 24 08/26/2023 CBC WITH DIFFE RENTI AL/PL ATELE T immature grans (abs) 0.0 x10e3 /uL 0.0-0. 1 Not Available [facility] ([facility]) [address] [facility], [place], [address], 08/31/2023 20:39:24 08/25/19 24 08/26/2023 CBC WITH DIFFE RENTI AL/PL ATELE T NRBC AUDIT MGR Not Available [facility] ([facility]) [address] [facility], [place], [address], 08/31/2023 20:39:24 08/25/19 24 08/26/2023 CBC WITH DIFFE RENTI AL/PL ATELE T hematology comments: AUDIT MGR Not Available [facility] ([facility]) [address] [facility], [place], [address], 08/31/2023 20:39:24 08/25/19 24 08/26/2023 COMP. METAB OLIC PANEL (14) glucose 109 mg/dL 70-99 above high normal Not Available [facility] ([facility]) [address] [facility], [place], [address], 08/31/2023 20:39:25 08/25/19 24 08/26/2023 COMP. METAB OLIC PANEL (14) BUN 10 mg/dL 6-20 Not Available [facility] ([facility]) [address] [facility], [place], [address], 08/31/2023 20:39:25 08/25/19 24 08/26/2023 COMP. METAB OLIC PANEL (14) creatinine 0.92 mg/dL 0.57-1 .00 Not Available [facility] ([facility]) [address] [facility], [place], [address], 08/31/2023 20:39:25 08/25/19 24 08/26/2023 COMP. METAB OLIC PANEL (14) eGFR 81 mL/mi n/1.7 3 >59 Not Available [facility] ([facility]) [address] [facility], [place], [address], 08/31/2023 20:39:25 08/25/19 24 08/26/2023 COMP. METAB OLIC PANEL (14) BUN/creatini ne ratio 11 9-23 Not Available [facility] ([facility]) [address] [facility], [place], [address], 08/31/2023 20:39:25 08/25/19 24 08/26/2023 COMP. METAB OLIC PANEL (14) sodium 144 mmol/ L 134-14 4 Not Available [facility] ([facility]) [address] [facility], [place], [address], 08/31/2023 20:39:25 08/25/19 24 08/26/2023 COMP. METAB OLIC PANEL (14) potassium 4.2 mmol/ L 3.5-5. 2 Not Available [facility] ([facility]) [address] [facility], [place], [address], 08/31/2023 20:39:25 08/25/19 24 08/26/2023 COMP. METAB OLIC PANEL (14) chloride 103 mmol/ L 96-106 Not Available [facility] ([facility]) [address] [facility], [place], [address], 08/31/2023 20:39:25 08/25/19 24 08/26/2023 COMP. METAB OLIC PANEL (14) carbon dioxide, total 22 mmol/ L 20-29 Not Available [facility] ([facility]) [address] [facility], [place], [address], 08/31/2023 20:39:25 08/25/19 24 08/26/2023 COMP. METAB OLIC PANEL (14) calcium 9.1 mg/dL 8.7-10 .2 Not Available [facility] ([facility]) [address] [place] [place], [address], 08/31/2023 20:39:25 08/25/19 24 08/26/2023 COMP. METAB OLIC PANEL (14) protein, total 7.1 g/dL 6.0-8. 5 Not Available [facility] ([facility]) [address] [facility], [place], [address], 08/31/2023 20:39:25 08/25/19 24 08/26/2023 COMP. METAB OLIC PANEL (14) albumin 4.3 g/dL 3.9-4. 9 Not Available [facility] ([facility]) [address] [facility], [place], [address], 08/31/2023 20:39:25 08/25/19 24 08/26/2023 COMP. METAB OLIC PANEL (14) globulin, total 2.8 g/dL 1.5-4. 5 Not Available [facility] ([facility]) [address] [place], [address], 08/31/2023 20:39:25 08/25/19 24 08/26/2023 COMP. METAB OLIC PANEL (14) A/G ratio 1.5 1.2-2. 2 Not Available [facility] ([facility]) [address] [place], [address], 08/31/2023 20:39:25 08/25/19 24 08/26/2023 COMP. METAB OLIC PANEL (14) bilirubin, total 0.2 mg/dL 0.0-1. 2 Not Available [facility] ([facility]) [address] [facility] [place], [address], 08/31/2023 20:39:25 08/25/19 24 08/26/2023 COMP. METAB OLIC PANEL (14) alkaline phosphatase 116 IU/L 44-121 Not Available [facility] ([facility]) [address] [place], [address], 08/31/2023 20:39:25 08/25/19 24 08/26/2023 COMP. METAB OLIC PANEL (14) AST (SGOT) 22 IU/L 0-40 Not Available [facility] ([facility]) [address] [facility] [place], [address], 08/31/2023 20:39:25 08/25/19 24 08/26/2023 COMP. METAB OLIC PANEL (14) ALT (SGPT) 12 IU/L 0-32 Not Available [facility] ([facility]) [address] [place], [address], 08/31/2023 20:39:25 08/25/19 24 08/30/2023 VITAM IN E vitamin E(alpha tocopherol) 8.0 mg/L 5.9-19 .4 Not Available [facility] ([facility]) [address] [facility], [place], [address], 08/31/2023 20:39:26 08/25/19 24 08/30/2023 VITAM IN [...] in E defic ient. Not Available [facility] ([facility]) [address] [place], [address], 08/31/2023 20:39:26 08/25/19 24 08/26/2023 FOLAT E (FOLI C ACID) , SERUM folate (folic acid), serum 13.0 NG/mL >3.0 A serum folat e francia ntrat ion of less than 3.1 ng/mL is consi dered to repre sent clini omar defic iency . Not Available [facility] ([facility]) [address] [facility], [place], [address], 08/31/2023 20:39:27 08/25/19 24 08/30/2023 VITAM IN [...] Drug Admin istra tion. Not Available [facility] ([facility]) [address] [facility], [place], [address], 08/31/2023 20:39:28 08/25/19 24 08/26/2023 VITAM IN [...] Ada vieira [place]: [facility] . 2. Luis Carlos xiao MF, Binraffaele ey [place], Belkis off-F errar i NEVAREZ, et al. Evalu ation , treat ment, and preve ntion of vitam in D defic iency : an Endoc rine Socie ty clini omar pract ice guide line. JCEM. 2010; 96(7) :1911 -30. Not Available [facility] ([facility]) [address] [facility], [place], [address], 08/31/2023 20:39:28 08/25/19 24 08/29/2023 VITAM IN B1 (THIA MINE) , BLOOD vit. B1, whole blood 104.3 nmol/ L 66.5-2 00.0 Not Available [facility] ([facility]) [address] [facility] [place], [address], 08/31/2023 20:39:29 08/25/19 24 08/31/2023 METHY LMALO YVETTE ACID, SERUM methylmaloni c acid, serum 327 nmol/ L 0-378 Not Available [facility] ([facility]) [address] [facility], [place], [address], 08/31/2023 20:39:30 08/25/19 24 08/27/2023 COPPE R, SERUM OR PLASM A copper, serum or plasma 146 ug/dL 80-158 Detec tion Limit = 5 Not Available [facility] ([facility]) [address] [place], [address], 08/31/2023 20:39:31 08/25/19 24 08/27/2023 ZINC, PLASM A OR SERUM zinc, plasma or serum 73 ug/dL 44-115 Detec tion Limit = 5 Not Available [facility] ([facility]) [address] [facility], [place], [address], 08/31/2023 20:39:32 08/25/19 24 08/26/2023 PREAL BUMIN prealbumin 12 mg/dL 14-35 below low normal Not Available [facility] ([facility]) [address] [facility], [place], [address], 08/31/2023 20:39:32 08/25/19 24 08/28/2023 SELEN IUM, BLOOD selenium, blood 161 ug/L 100-34 0 Detec tion Limit = 10 Not Available [facility] ([facility]) [address] [facility], [place], [address], 08/31/2023 20:39:33 Result Notes None recorded. Problems Name Problem SNOMED Code Status Onset Date Resolution Date Notes Provider Name and Address Organization Details Recorded Time Anxiety 98998300 Active 2023 Carline Beardswort h null, [place] - [facility] - [place] & [place] 4 14:56:25 Irritable bowel syndrome 09187833 Active 2023 [place] Beardswort h null, [place] [facility] [place] 14:56:37 Malignant neoplastic disease 152886886 Active 2023 [place] Beard[place] null, [place] [facility] [place] & [place] 14:56:45 Fibromyalg ia 107325026 Active 2023 [place] Beard[place], [place] [facility] [place] 4 14:57:44 Migraine 27773145 Active 2023 [place] Beard[place], [place] [facility] [place] 14:57:51 Hyperlipid emia 80923845 Active 2023 [place] Beardsw[place] h [place], [place] [facility] [place] 4 14:57:57 Depressive disorder 87268945 Active 2023 [place] Beard[place], [place] [facility] [place] 4 14:58:03 Sleep apnea 63824427 Active 2023 [place] Beard[place], [place] [facility] [place] 4 14:58:21 Arthritis 1816931 Active 2023 [place] Beard[place], [place] [facility] [place] 4 14:58:26 Osteoporos is 29766399 Active 2023 [place] Beard[place], [place] [facility] [place] 4 14:58:35 Gastroesop hageal reflux disease 548840843 Active 2023 [place] Beard[place], [place] [facility] [place] 4 14:58:40 Chronic migraine without aura 1225817288944 05 Active 2023 Milli Walkerkins null, [place] [facility] [place] 4 17:49:42 Episodic migraine 7489988849834 06 Active 2023 Milli Cornejo null, [place] [facility] [place] 4 17:49:50 Headache 48941585 Active 2023 Milli Cornejo null, [place] [facility] [place] 4 17:49:57 Chronic intractabl e migraine without aura 4615089331483 05 Active 2021 Vivi Velez, DO [address] [facility], [place], [address] , [place] - [facility] - [place] & [place] 2 10:20:51 History of bypass of stomach 524844959 Active 2022 GIA Wright [address] , [place], [address] , [place] - [facility] [place] 3 13:58:14 Iron deficiency 76057417 Active 2022 GIA Wright [address], [place], [address] , [place] [facility] [place] 3 13:58:16 Vitamin D deficiency 70788366 Active 2022 GIA Wright [address], [place], [address] , [place] [facility] [place] 3 13:58:17 Gastrointe stinal hemorrhage 71464551 Active Breerobyn Bautista null, [place] - [facility] - [facility] & [place] 4 10:30:39 Problem Notes Documentation Provider Name and Address Organization Details Recorded Time Discharge Summary : Consult History and Physical [facility] Name Alexei Castrejon Date of Service 0742 [id number] (F) Attending GRACIE COLE Admitted [id number] Discharged Primary JESSICA ROOT - Addendum I have seen and evaluated the patient independently today. She and I have had very extensive conversations about her gastric ulcer. She has a severe gastric ulcer which she has known about for multiple years she states. She notes that she is not always compliant with her medications, she has anorexia and is aware of the fact that she is not ingesting enough protein (she is under the care of a therapist for this), and she is smoking both tobacco and marijuana daily. She denies exposure to NSAIDs or steroids. We discussed that with her current nutritional state, any surgery would be high risk, especially the creation of any new anastomosis as her risk of complications and anastomotic failure are very high. We also discussed her many high risk behaviors which are contributing to her ulcer disease and precenting healing. She expresses understanding and knows that she will need to make multiple lifestyle changes in order to heal. She also knows the risks of continuing these behaviors. We will attempt to correct her hypovolemia and get off of the pressors. We will continue to watch her Hgb and trend this. At this time we will avoid surgical intervention if at all possible due to the very high risks in her current state. Electronically signed by CALEB DE LA ROSA on 7308 Chief Complaint blood in vomit History of Present Illness Patient reports doing well. Pain is well controlled. She states that her pain is in her chest area. Patient denies any nausea. Patient is tolerating p.o. intake, ambulating and is using incentive spirometer. Patient reports voiding without any issues. Patient tells me that she does smoke approximately 3 cigarettes a day. She was last seen at [facility] yesterday and got 1 L of IV fluids but no scans were performed. She tells me that she has had fevers off and on for the past 2 days. She tells me that she threw up roughly 2-3 cup fulls of coffee-ground vomit for the past 2 days. She has also had some blood in her bowel movements. She tells me that she has had problems with having ulcer for the past 2 years. She does take medicine for her stomach but does not recall the actual name. Nurse today is actually going to call her pharmacy to get an updated list of medications. Reason for Consultation Patient is a previous Keena-en-Y gastric bypass approximately [address] Velez. She tells me that she was last seen in our office roughly about 5 months ago. Past Medical History Anorexia nervosa Heart failure Fibromyalgia Osteoarthritis Rheumatoid arthritis Personality disorder Chronic depression Gastric ulcer Irritable bowel syndrome Pericardial effusion Obstructive sleep apnea syndrome, unable to tolerate cpap Tachycardia Heart murmur Primary malignant neoplasm of endometrium Malignant neoplasm of skin Pulmonary embolism Deep venous thrombosis Chronic pain Arthritis Anxiety Migraine Constipation 1 of 6 Consult History and Physical [facility] Name Alexei Castrejon Date of Service 0742 [id number] (F) Attending GRACIE COLE Admitted [id number] Discharged Primary JESSICA ROOT - Past Surgical History Plantar fasciectomy, right foot in 2016 Diagnostic laparoscopy in 2005 Laminectomy in 2016 Esophagogastroduodenoscopy in 2019 Reconstruction of left ankle in 2018 Total abdominal hysterectomy in 2008 Esophagogastroduodenoscopy in 2020 Repair of tendo achilles, right Exploratory laparotomy Excision of benign tumor of breast Discectomy of spine Insertion of infusion pump, back, pain pump Excision of lipoma Procedure on back Arthroscopy of knee, left Keena-en-Y gastrojejunostomy Appendectomy Operation on oral cavity Colonoscopy Arthroscopy of knee, right Esophagogastroduodenoscopy in 2023 Esophagogastroduodenoscopy in 2023 Social History tobacco use Current Every Day Smoker, 20 yrs, Smoking Cessation Yes alcohol use No Known Use drug use No Known Use marital status Legally Smokes approximately 2-3 cigarettes a day. Nurse this morning states that boyfriend brought in candles and NSAIDs to burn her bedside last night. 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 Patient's boyfriend was told not to bring these items in he then brought in a bib box that is full of demons that is at her bedside. Family History Parents Father Alive 70y Malignant tumor of kidney; Hyperthyroidism; Hypertensive disorder; Malignant tumor of kidney; Malignant tumor of stomach Mother Alive 69y Malignant tumor of breast; Endometrial carcinoma; Malignant tumor of cervix; Degenerative disorder of macula; Mnire's disease; Hypertensive disorder Allergies NSAIDs - Not Specified DILAUDID - Rash CILANTRO - anaphylaxis KETOROLAC - Rash LACTOSE INTOLERANCE (GI) - Nausea Active Medications 2 of 6 Consult History and Physical [facility] Name Alexei Castrejon Date of Service 0742 [id number] (F) Attending GRACIE COLE Admitted [id number] Discharged Primary JESSICA ROOT - potassium chloride PREMIX 10 MEQ/100 ML Dose Range IV SS SSPRN for OTHER (SEE COMMENT) *FOR PATIENTS WITH CVC/PICC LINES ONLY* PRN FOR HYPOKALEMIA potassium chloride (K-DUR) Dose Range PO SSPRN for OTHER (SEE COMMENT) potassium bicarb (EFFER-K) Dose Range PO SSPRN for OTHER (SEE COMMENT) magnesium sulfate PREMIX 2 GM/50 ML Dose Range IV SS SSPRN for OTHER (SEE COMMENT) dextrose 5% - NS 0.45% 1000 ML IV Continuous 100 ML/HR norepinephrine (LEVOPHED) 1 MG/ML 4 MG IV TITRATEPRN for PER PROTOCOL dextrose 5% 250 ML norepinephrine (LEVOPHED) 1 MG/ML 4 MG IV TITRATEPRN for PER PROTOCOL dextrose 5% 250 ML NOZIN NASAL STITCHER AROUND POPSWAB 1 EA NASAL BID APPLY TO EACH NOSTRIL acetaminophen (TYLENOL) 500 MG PO Q4HPRN for MODERATE PAIN 4-6 PAIN SCALE pantoprazole (PROTONIX) 40 MG IV Q5H 10 ML/HR sodium chloride 0.9% 50 ML sodium chloride 0.9% FLUSH 10 ML IV PUSH PRN for FLUSH IV LINE ondansetron (ZOFRAN) INJ 4 MG/2 ML 4 MG IV PUSH Q6HPRN for NAUSEA VOMITING MIRALAX PACKET 17 GM PO DAILYPRN for CONSTIPATION DUONEB 0.5-2.5 MG/3 ML 3 ML INHALED [id number] for SHORTNESS OF BREATH Review of Systems Narrative All 12-point review of systems were reviewed and are all negative except as above Vital Signs 0545 HR 54 RR 19 BP 84 / 54 (L) O2Sat 93 0530 HR 51 RR 11 (L) BP 88 / 53 (L) O2Sat 93 0416 T 97.7 (L) 0117 T 97.7 (L) Intake and Output previous current encounter day day cumulative Intake 4 - 2573 Output 651 - 651 Balance 1922 - 1922 Physical Exam Narrative General appearance: Well-nourished, well-hydrated, no acute distress. Alert and oriented x 4. 3 of 6 Consult History and Physical [facility] Name Alexei Castrejon Date of Service 0742 [id number] (F) Attending GRACIE COLE Admitted [id number] Discharged Primary JESSICA ROOT - Head: Normocephalic, atraumatic. Eyes: Extraocular movements intact bilaterally. Conjunctivae clear. Lids normal. Neck: Supple. No masses. Trachea midline. Cardiovascular: Regular rate and rhythm. Normal S1, S2. Lungs: Clear to auscultation in all lung purvis. Breathing nonlabored. Abdomen: Soft, nondistended, tender appropriate, bowel sounds present x4 quadrants, incision within normal limits. Skin: Moist and pink Lab Results 0557 Hematology HGB 9.0 (L) HCT 27.4 (L) 239 Chemistry NA 141 K 3.5 (L) CHLORIDE 107 CO2 25.4 AGAP 12.1 GLUC 121 (H) BUN 17 CREAT 0.7 GFR >60 CALCIUM 7.9 (L) MG 1.7 (L) 024 Hematology WBC 7.7 RBCS 3.3 (L) HGB 9.3 (L) HCT 28.9 (L) MCV 87.3 MCH 28.1 MCHC 32.2 RDW 13.5 PLT S 210 MPV 10.1 (H) NEUT% 44.4 LYMPH% 45.1 MONO% 6.8 EOS% 3.1 (H) BASO% 0.5 IG% 0.1 NRBC% 0.0 NEUT# 3.4 LYMPH# 3.5 (H) MONO# 0.5 EOS# 0.2 BASO# 0.0 IG# 0.01 NRBC# 0.[address] Scanning C6CABP 2329 Blood Bank STATUS Transfused COMPAT Compatible UNIT TYP A Pos UNIT # [id number] DT/TM [id number] PRD CODE [id number] PROD ID Red Blood Cells VOLUME 350 SPEC EXP [id number] 2114 Hematology HGB 8.4 (L) HCT 25.3 (L) 2114 Blood Bank HISTCHK Completed ABO/RH A Positive ABS Negative STATUS Completed 1838 Chemistry NA 142 K 4.3 CHLORIDE 106 CO2 27.7 AGAP 12.6 GLUC 88 BUN 24 (H) CREAT 0.7 GFR >60 TP 6.3 (L) ALB 2.8 (L) GLOB 3.5 ALB/GLOB 0.8 CALCIUM 8.4 (L) BILI TOT 0.30 AST 11 ALT 17 ALP 91 MG 1.9 1838 Hematology WBC 10.1 RBCS 3.5 (L) HGB 9.9 (L) HCT 30.6 (L) MCV 87.2 MCH 28.2 MCHC 32.4 RDW 13.3 PLT S 246 MPV 9.8 (H) NEUT% 63.3 LYMPH% 29.2 MONO% 5.6 EOS% 1.3 BASO% 0.3 IG% 0.3 NRBC% 0.0 NEUT# 6.4 (H) LYMPH# 3.0 (H) MONO# 0.6 EOS# 0.1 BASO# 0.0 IG# 0.03 NRBC# 0.00 MANDIFF No 1838 4 of 6 Consult History and Physical [facility] Name Alexei Castrejon Date of Service 0742 [id number] (F) Attending GRACIE COLE Admitted [id number] Discharged Primary JESSICA ROOT - Coagulation PT 10.9 PTT 25.6 INR 1.0 Imaging Results [facility] [address] [place] [address] Name: ALEXEI CASTREJON Exam Date: 01/28/2024 : 1985 Age 38 years Gender: F Physician: DAMON LAZO Facility: [facility] Facility HSV: Inpatient Exam: CT ABD PEL W/W/O FINAL REPORT TECHNIQUE: Pre-and postcontrast axial CT images of the abdomen and pelvis were obtained. Coronal reformatted images were also obtained and reviewed.This study was performed with techniques to keep radiation doses as low as reasonably achievable (ALARA). Individualized dose reduction techniques using automated exposure control or adjustment of mA and/or kV according to the patient''''s size were employed. CLINICAL HISTORY: GI bleed, shock FINDINGS: CT OF THE ABDOMEN AND PELVIS WITH AND WITHOUT CONTRAST LOWER CHEST: The heart is normal size. The lung bases are clear. ABDOMEN/PELVIS: Liver, gallbladder and bile ducts: The liver enhances homogeneously without suspicious focal hepatic lesion. There has been a prior cholecystectomy. There is no definite biliary duct dilatation. Adrenal glands: The adrenal glands are morphologically unremarkable without suspicious lesion. Kidneys, ureter and urinary bladder: No suspicious renal lesion. No hydronephrosis. Urinary bladder is unremarkable. Spleen: The spleen is normal size. Pancreas: The pancreas is grossly unremarkable. GI systems and mesentery: Patient is status post Keena-en-Y gastric bypass. There is a significant amount of inflammation present about the gastrojejunostomy with an adjacent extraluminal collection near the gastrojejunostomy anastomosis compatible with a marginal ulcer. There is a moderate colonic stool burden. No evidence of bowel obstruction. The appendix is visualized and unremarkable in appearance. No significant mesenteric inflammation. Lymph nodes: No definite pathologically enlarged abdominal or pelvic Legally authenticated by NICO Toscano 2024-01-29 00:13:55 lymph nodes present. Vessels: The aorta and abdominal arteries are grossly patent. The IVC and portal vein are patent and grossly unremarkable. Peritoneum: No free intraperitoneal fluid or pneumoperitoneum. Pelvic viscera: No acute findings. Body wall: No body wall contusion. No significant body wall hernias. Bones: No acute fracture. IMPRESSION: 5 of 6 Consult History and Physical [facility] Name Alexei Castrejon Date of Service 0742 [id number] (F) Attending GRACIE COLE Admitted [id number] Discharged Primary JESSICA ROOT - Findings are compatible with a gastrojejunostomy marginal ulcer. Surgical consult is recommended. Reviewed, Interpreted and Dictated by Kyle Marie MD Transcribed by Sayda Rosas Authenticated and [facility] Dictated By: Kyle Marie Transcribed By: Transcribed On: 01/29/2024 12:13 AM Electronically signed by: Kyle Marie 01/29/2024 Thank you for referring ALEXEI CASTREJON to [facility]. Problem List Gastrointestinal hemorrhage Assessment/Plan Will relay this information on to Dr. Velez and Dr. Landaverde. Assessment and plan Patient doing well. Encouraged ambulation and use of incentive spirometer frequently.. Follow-up in office i once discharged. Electronically signed by BERNARD BARR APRN on 4454 I hereby attest the note that was written on this patient accurately reflects the notations made when patient was examined. Electronically signed by CALEB DE LA ROSA on 0412 6 of 6 CC'ed Logic: Ordering Provider: GIA Hadley [address], [place], [address], [place] - [facility] - [place] & [place] 02/16/2024 13:06:51 Procedures Surgical History Date Name Laterality Status Provider Name and Address Organization Details Recorded Time 2023 ESOPHAGOGASTRODUODENOSCOPY (SURG) completed Kelli BALDERAS - [facility] & [place] 4 11:31:36 2020 repair of tendo achilles completed Bree BALDERAS - [facility] & [place] 2 16:28:15 2020 Gastric Bypass completed Bree BALDERAS - [facility] - [place] & [place] 2 16:27:48 2018 ankle reconstruction completed Bree BALDERAS - [facility] & [place] 2 16:27:01 2015 Lumbar Spine Surgery completed Bree BALDERAS - [facility] - [place] & [place] 2 16:21:33 EGD completed Jan Maldonado-Bec lashon BALDERAS - [facility] & [place] 3 10:36:17 Total hysterectomy completed Bree BALDERAS - [facility] & [place] 2 16:20:22 partial fasciectomy of plantar fascia completed Bree Allena [place] - [facility] & [place] 2 16:20:47 Knee Surgery completed Bree BALDERAS - [facility] & [place] 2 16:21:04 exploratory laparotomy completed Earlene BALDERAS - [facility] & [place] 2 16:21:59 Transfusion bld/bld compnt completed Bree BALDERAS - [facility] & [place] 2 16:26:38 Cholecystectomy completed Bree Allena [place] - [facility] & [place] 2 10:18:00 Imaging Results None recorded. Procedure Notes None recorded. Medical Equipment None Reported. Allergies Allergen ID Allergen Name Allergen Category Reaction Reaction Severity Criticality Documentation Date Start Date Code Code System Note Provider Name and Address Organization Details Recorded Time 600180 Non-stero idal anti-infl ammatory agent (product) medicatio n Not available Not available Not available 02/26/2024 53249 005 SNOMED Other react ions and sever ities : 'Adve rse react ion to subst ance' . Bree mcelroy, [place] - [facility] & [place] 4 10:32:00 755300 hydromorp eladio medicatio n rash severe Not available 02/26/2024 3423 RxNorm Bree Michele null, [place] - [facility] & [place] 4 10:32:00 154748 ketorolac medicatio n rash Not available Not available 02/26/2024 95383 RxNorm Bree mcelroy, [place] - [facility] & [place] 4 10:32:00 248510 Milk (substanc e) food,medi cation Not available Not available Not available 06/23/2024 51251 002 SNOMED Carline mcelroy, [place] - [facility] - [place] & [place] 4 14:55:40 Medications Name Sig [...] active Not Available Not Available Not Avai rasheed cyanocobala min (vit B-12) 1,000 mcg/mL injection [...] Updated DateTime 4 175.26 cm 25.7 kg/m2 01693.0 7 g 90 /min 98.3 [degF] 110 mm[Hg] 70 mm[Hg] Abby Holcomb [facility] & [place] 4 14:45:58 Date Recorded Body height Body mass index (BMI) Body weight Heart rate Systolic blood pressure Diastolic blood pressure Provider Name and Address Organization Details Last Updated DateTime 4 175.26 cm 26.2 kg/m2 03263.5 7 g 80 /min 107 mm[Hg] 79 mm[Hg] Bree Bautista [facility] & [place] 4 11:29:00 Date Recorded Body height Body mass index (BMI) Body weight Heart rate Systolic blood pressure Diastolic blood pressure Provider Name and Address Organization Details Last Updated DateTime 4 175.26 cm 24.6 kg/m2 61669.1 3 g 81 /min 122 mm[Hg] 80 mm[Hg] Bree BALDERAS - [facility] & [place] 4 10:10:48 Date Recorded Body height Body mass index (BMI) Body weight Heart rate Systolic blood pressure Diastolic blood pressure Provider Name and Address Organization Details Last Updated DateTime 4 175.26 cm 20.7 kg/m2 48667.9 3 g 75 /min 110 mm[Hg] 68 mm[Hg] Bree BALDERAS [facility] & [place] 4 10:38:55 Date Recorded Body height Body mass index (BMI) Body weight Body temperature Oxygen saturation Oxygen saturation in Arterial blood by Pulse oximetry Heart rate Systolic blood pressure Diastolic blood pressure Provider Name and Address Organization Details Last Updated DateTime 4 175.26 cm 19.9 kg/m2 85162.9 7 g 97.1 [degF] 99 % 99 % 83 /min 121 mm[Hg] 80 mm[Hg] [facility] & [place] 4 14:54:56 Social History Question Answer Notes LastModified by Organizat ion Details LastModified Time Tobacco Smoking Status Former Smoker no tobacco use x 7yr, currently daily mariuana use GIA Wright [address] [facility], [place], [address], [facility] & [place] 09/10/2022 13:43:16 Do You Have [...] anxious, or unable to sleep at night)? [id number] Information not available 08/29/2022 Family History Relationship Description Onset Age of this Age Resolved Age Notes LastModified by Organization Details LastModified Time Mother Malignant tumor of breast [id number] Not available 02/2022 08:21:12 Mother Allergy pt. added direct ly (05/22) API-13 Not available 05/22/2022 12:36:00 Father Malignant tumor of kidney [id number] Not available 02/2022 08:21:12 Father Disorder of [...] influenza, unspecified formulation 06/03/2023 completed Abby Holcomb [facility], [facility] & [place] 08/25/2023 14:44:46 Past Encounters Encounter ID Performer Location Encounter Start Date Encounter Closed Date Diagnosis/Indication Diagnosis SNOMED-CT Code Diagnosis ICD10 Code Diagnosis Note [id number] Vivi VelezDO [facility]cher [facility] [address] [facility],[address] [place] [address] 05/20/2022 10:08:09 05/20/2022 10:40:41 Chronic intractable migraine without aura [id number] 43032 G43.719 She has done very well on the combinatio n of botox and ajovy but due to insurance change can no longer stay on this dual therapies. She will discontinu e the ajovy and I will have the office seek a new approval to continue with her botox treatments .In the meantime she is asked to keep a headache log. [id number] Vivi VelezDO OTERO [facility] [address] [facility],[address] [place] [address] 05/23/2022 08:19:26 05/23/2022 08:47:35 Chronic intractable migraine without aura [id number] 95892 G43.719 [id number] [facility] [address] [facility] [place] [address] 08/29/2022 08:21:08 08/29/2022 08:56:01 Chronic intractable migraine without aura [id number] 52032 G43.719 [id number] [facility] [address] [facility] [address] [place] [address] 09/10/2022 13:07:45 09/10/2022 14:53:51 Gastrojejunal ulcer 65125364 K28.[address] Fitz Velez [...] c ulcer. History of bypass of stomach 127137921 Z98.84 Long discussion today regarding need for routine follow-up and vitamin checks. patient voices understand ing of needed routine follow-up and agrees to be compliant with this. We are checking full bariatric panel today. Iron deficiency 05959450 E61.1 Vitamin D deficiency 347 87653 E55.9 History of gastrectomy 265443799 Z90.3 Patient is status post bariatric surgery and at increased risk for vitamin deficienci es and malnutriti on. Bariatric vitamin panel ordered today. Patient will be contacted to correct any vitamin deficienci es. [id number] Vivi Velez DO [facility] [address] [facility],[address] [place] [address] 11/28/2022 08:14:33 11/28/2022 08:55:55 Chronic intractable migraine without aura 9266165458 20485 G43.719 Chronic condition that is stable. She is given Ajovy samples today. [id number] Vivi Velez DO [facility] [address] [facility] [place] [address] 02/27/2023 11:05:14 02/27/2023 11:33:40 Chronic intractable migraine without aura 5526256294 05390 G43.719 [id number] Vivi Velez DO [facility] [address] [facility] [place] [address] 05/29/2023 11:13:34 05/29/2023 11:43:52 Chronic intractable migraine without aura [id number] 40088 G43.719 [id number] [facility] [address] [facility] [address] [place] [address] 08/25/2023 14:29:17 08/25/2023 15:27:36 Vomiting 328010267 R11.10 Discussed previous endoscopy September 2022 showing [...] GI have been resulted. Nutritiona lly compromised 453353932 E63.9 Discussed need for increased nutritiona l intake. Advised patient attempt p.o. stage I/2 as tolerated with focus on 70 g of protein and a 1000 calories. We will have dietitian meet with patient today for additional dietary support. History of gastrectomy 318981285 Z90.3 Patient is status post bariatric surgery and at increased risk for vitamin deficienci es and malnutriti on. Bariatric vitamin panel ordered today. Patient will be contacted to correct any vitamin deficienci es. Vitamin D deficiency 347 82370 E55.9 Marijuana user 932710914 F12.90 [id number] RUSSELL BREWSTER BS, RDN, LD [facility] Adv S[facility] [address] [facility] [address] [place] [address] 08/25/2023 15:31:07 08/25/2023 16:02:52 History of bypass of stomach 116290199 Z98.84 EGD ordered today, hx of jejunal anastomoti c ulcer [id number] [facility] [address] [place] [address] 08/28/2023 11:21:49 08/28/2023 11:48:46 Chronic intractable migraine without aura 3568784319 75691 G43.006 [id number] Vivi Velez DO [facility] [address] [facility] [place] [address] 11/27/2023 10:00:13 11/27/2023 10:35:46 Chronic intractable migraine without aura 9379965901 43950 G43.719 She is given a sample of Ajovy todayAliangvy quantity: 1, Lot #: [id number], Exp: 06/17/2025 [id number] Vivi Velez, DO ZZ [facility] [address] [facility],[address] [place] [address] 02/26/2024 10:25:30 02/26/2024 11:08:39 Chronic intractable migraine without aura 6675724179 58650 G43.719 She is given a sample of Ajovy todayAliangvy quantity: 2, Lot #: [id number] , Exp: 12/2025 [id number] Ajit Grande MD [facility] [address] [place] [address] 06/23/2024 14:31:23 06/23/2024 14:58:43 Chronic migraine without aura 7181533353 07526 G43.709 - It appears that the intensity [...] patient for Botox injections . Episodic migraine 160296 4261 43470 G43.C1 Headache 25981555 R51.9 Health Concerns Section Related Observation LastModified by Organization Detai ls LastModified Time None Recorded Concern Status LastModified by Organization Details LastModified Time None Recorded Advance Directives Directive N: Payers Insurance Date Sequence Insurance Name Policy Number Policy Vaughn Covered Member ID Vaughn Member ID Guarantor Name 05/15/2022 1 [employer] - [employer] ( - PPO) Denilson Castrejon [id number] Alexei Castrejon 06/23/2024 1 FOR LIFE () Sandi Castrejon [id number] Alexei Castrejon 07/22/2024 1 [place] - [employer] [place] ( - PPO) Denilson Castrejon [id number] Alexei Castrejon 07/19/2024 2 [facility] (MEDICAID HMO) Alexei Castrejon [id number] Alexei Castrejon 05/20/2022 3 EAST - [employer] () Denilson Castrejon [id number] Alexei Castrejon 06/25/2022 1 UNSPECIFIED REMIT PAYOR Alexei Castrejon 06/23/2024 1 [employer] - [employer] () Alexei Castrejon [id number] Alexei Castrejon 06/10/2023 1 FOR LIFE ( - MEDICARE SUPPLEMENT) Denilson Castrejon [id number] Alexei Castrejon 03/16/2024 1 UNSPECIFIED REMIT PAYOR Alexei Castrejon 07/09/2020 SLIDING FEE SCHEDULE - DISCOUNT Alexei Castrejon 07/09/2020 SLIDING FEE SCHEDULE - DISCOUNT Alexei Castrejon 10/03/2021 1 EAST - [employer] () Denilson Castrejon [id number] Alexei Castrejon 06/23/2024 1 FOR LIFE () Alexei Castrejon [id number] Alexei Castrejon Notes Date Note Type Note Provider Name [...] Last labs approximately 2 weeks ago at [facility]. Past history: March 06 upper GI [...] office since GIA Wright [address], [place], [address], [facility] & [place] 08/25/2023 15:42:54 08/25/2023 text/html RDN met w/ Alexei Castrejon who is s/p RNY (surgery date 2020) following their office visit regarding concern for recurring anastomotic ulcer. RDN reviewed diet stages 1 and 2 and advised ways to manage nausea. Pt expressed concerns that she is anorexic and also disclosed some concerns with memory issues. RDN scheduled pt to see psych in [facility] on Thursday to address these concerns. We [...] oz/dSource: water RUSSELL BREWSTER BS, RDN, LD [address] , [place], [address], [facility] & [place] 08/25/2023 16:37:41 08/28/2023 text/html Vikash [...] migraine today. Vivi Velez, DO [address], [place], [address], [place] - [facility] - [place] & [place] 08/28/2023 11:53:09 11/27/2023 text/html Vikash [...] migraine today. Vivi Velez, DO [address] [facility], [place], [address], [place] - [facility] - [place] & [place] 11/27/2023 10:28:31 02/26/2024 text/html Alexei [...] migraine today. Vivi Velez, DO [address] [facility], [place], [address], [facility] - [facility] - [place] & [place] 02/26/2024 12:14:39 06/23/2024 text/html Ms. Castrejon was ref erred by Dr. Velez (neurology) [...] none Imaging/Studies: none Ajit Grande MD [address], [place], [address], [facility] & [place] 06/24/2024 09:49:17 OBGyn Episode No OBEpisode recorded.
--- OUTSIDE RECORDS SUMMARY | 2025-01-28 19:55 | XMS_ITS | Clinical Summary ---
Author Organization [facility] [employer] Address [address] [place] [address] Care Team Providers Care Mig Welder Name Role Phone Luciano Falk MD Primary Care Provider [phone] Allergies No known active allergies Social History [...] Date Reese rded Speak language other than Palestinian at home Not on file 09/04/2023 Want [...] 05/09/2023 12:44 PM EDT Plan of Treatment Health Maintenance Due Date Last Done Comments Depression Screening (12+) 1996 Tobacco Cessation Counseling and Screening (12+) 1996 HIV Screening 1999 Hepatitis C Screening 2002 Pap Smear 2005 COVID-19 VACCINE ( season) 2024 01/26/2021, 12/27/2020 Breast Cancer Screening 2024 Influenza Vaccine (Season Ended) 2025 06/30/2022, 05/16/2022, 05/27/2021, Additional history exists DTAP/TDAP/TD VACCINES (4 - Td or Tdap) 07/03/2031 07/03/2021, 07/09/2016, 04/07/2014 Pneumococcal Vaccine: 0-49 Years Aged Out 05/27/2021, 06/02/2019, 07/09/2016, Additional history exists No longer eligible based on patient's age to complete this topic Insurance [address] [place] [id number] [employer] [facility] [employer] [facility] Care Teams Mig Welder Relationship Specialty Start Date End Date Luciano Falk MD [address] [place] [address] [place] [address] PCP - General Adolescent Medicine 05/09/23
--- OUTSIDE RECORDS SUMMARY | 2025-01-28 19:56 | XMS_ITS | Clinical Summary ---
Author Organization [facility] Address [address] [place] [address] Care Team Providers Care Blade Grinder Name Role Phone Luciano Falk MD Primary Care Provider + [phone] Allergies Active Allergy Reactions Criticality Noted Date Comments Hydromorphone Rash Low 02/13/2016 Patient reported being able to take if given diphenhydramine Ketorolac Anaphylaxis,Rash High 02/13/2016 Ketorolac Tromethamine Unknown - Patient states they do not know rxn details Low 04/20/2023 Medications * This document contains information received from the source organization and may not represent a complete record from that organization. ALPRAZolam (Xanax) 0.5 MG tabletIndicati ons:Anxiety Take 1 tablet (0.5 mg) by mouth 3 (three) times a day if needed for anxiety. Active pregabalin (Lyrica) 200 MG capsuleIndicat ions:Pain Take 1 capsule (200 mg) by mouth 2 (two) times a day. Active pantoprazole (Protonix) 40 MG EC tabletIndicati ons:Gastroesop hageal Reflux Disease Take 1 tablet (40 mg) by mouth 2 (two) times a day. Active furosemide (Lasix) 40 MG tabletIndicati ons:Heart Failure,Patien t's home med Take 1 tablet (40 mg) by mouth 1 (one) time each day. Active spironolactone (Aldactone) 25 MG tabletIndicati ons:HFpEF Take 1 tablet (25 mg) by mouth 1 (one) time each day. Active promethazine (Phenergan) 12.5 MG tabletIndicati ons:Nausea Take 1 tablet (12.5 mg) by mouth every 8 (eight) hours if needed. Active miSOPROStol (Cytotec) 200 MCG tabletIndicati ons:Gastric Ulcer Take 1 tablet (200 mcg) by mouth 2 (two) times a day. 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 Morphine Medtronic Pain Pump - 1mg/mL Rate: 0.15mg/day Bolus: 0.011mg every 6 hours PRN Active colestipol (Colestid) 1 g tabletIndicati ons:Hyperchole sterolemia Take 1 tablet (1 g) by mouth 1 (one) time each day. Take at least 1 hour after or 4 hours before other medications. Active fluticasone (Flonase) 50 MCG/ACT nasal sprayIndicatio ns:Allergic Rhinitis Administer 1 spray into each nostril 1 (one) time each day. Shake gently. Before first use, prime pump. After use, clean tip and replace cap. Active busPIRone (Buspar) 10 MG tablet Take 1 tablet (10 mg) by mouth 3 (three) times a day. Active hydrOXYzine pamoate (Vistaril) 50 MG capsule Take 1 capsule (50 mg) by mouth every 4 (four) hours if needed for anxiety. Active lamoTRIgine (LaMICtal) 100 MG tablet Take 1 tablet (100 mg) by mouth 2 (two) times a day. Active cyanocobalamin (Vitamin B-12) 1000 MCG/ML injection Inject 1 mL (1,000 mcg) into the muscle every 7 (seven) days. Active QUEtiapine (SEROquel) 100 MG tablet Take 1 tablet (100 mg) by mouth every night. Active Fremanezumab-v frm (AJOVY SC) Inject under the skin every 30 (thirty) days. Active Active Problems Problem Noted Date Diagnosed Date Chest pain not due to acute coronary syndrome Mood disorder 04/21/2023 Adjustment disorder with anxiety 04/20/2023 04/20/2023 Adjustment disorder with mixed anxiety and depre ssed mood 04/20/2023 04/20/2023 Vitamin D deficiency, unspecified 04/20/2023 04/20/2023 Unspecified asthma, uncomplicated 04/20/2023 04/20/2023 Osteoporosis 04/20/2023 04/20/2023 Obesity, unspecified 04/20/2023 04/20/2023 Nicotine dependence 04/20/2023 04/20/2023 Major depressive disorder, recurrent, moderate 0 04/20/2023 04/20/2023 Lump of breast 04/20/2023 04/20/2023 Low back pain 04/20/2023 04/20/2023 Iron deficiency anemia secondary to blood loss ( chronic) 04/20/2023 04/20/2023 Insomnia due to mental disorder 04/20/2023 04/20/2023 Chronic arthritis 04/20/2023 04/20/2023 Occipital neuralgia 01/22/2018 04/20/2023 Common migraine without aura 07/23/201711/2022 Resolved Problems Problem Noted Date Diagnosed Date Resolved Date Suicidal ideation 04/23/2023 04/24/2023 Encounter for psychiatric assessment 04/23/2023 04/24/2023 Immunizations Immunization Administration Dates Next Due HPV, Quadrivalent 06/06/2015 Hep A / Hep B 03/27/2017,07/03/2015,06/04/2015 Hib (PRP-T) 06/06/2015 IPV 06/06/2015 Influenza, seasonal, injecta ble, preservative free 07/09/2016,05/30/2015 Influenza, trivalent, adjuvanted 07/09/2016 MMR 08/06/2015,06/04/2015 Meningococcal MCV4P 06/04/2015 Pneumococcal Conjugate PCV 13 06/05/2015 Pneumococcal Polysaccharide PPV23 07/09/2016 Tdap 07/09/2016,04/07/2014 Varicella 07/03/2015,06/04/2015 Social History Tobacco Use Types Packs/Day Years Used Date Smoking Tobacco: Never Smokeless Tobacco: Never Alcohol Use Standard Drinks/Week Comments Never 0 (1 standard drink = 0.6 oz pur e alcohol) Humiliation, Afraid, Rape, and Kick questionnair e Answer Date Recorded Within the last year, have y ou been afraid of your partner or ex-partner? No 11/13/2023 Within the last year, have y ou been humiliated or emotionally abused in other ways by your partner or ex-partner? No Within the last year, have y ou been kicked, hit, slapped, or otherwise physically hurt by your partner or ex-partner? No 11/13/2023 Within the last year, have y ou been raped or forced to have any kind of sexual activity by your partner or ex-partner? No 11/13/2023 Social Connection and Isolation Panel Answer Date Recorded In a typical week, how many times do you talk on the phone with family, friends, or neighbors? More than three times a week 04/21/2023 How often do you get togethe r with friends or relatives? Never 04/21/2023 How often do you attend chur or scientologist services? Never 04/21/2023 Do you belong to any clubs o r organizations such as sabianism groups, unions, fraternal or athletic groups, or school groups? Yes 04/21/2023 How often do you attend meet ings of the clubs or organizations you belong to? Never 04/21/2023 Are you , , di vorced, , never , or living with a partner? 04/21/2023 AUDIT-C Answer Date Recorded Q1: How often do you have a drink containing alcohol? Never 04/21/2023 Q2: How many drinks containi ng alcohol do you have on a typical day when you are drinking? Patient does not drink Q3: How often do you have si x or more drinks on one occasion? Never 04/21/2023 Overall Financial Resource Strain (CARDIA) Answe r Date Recorded How hard is it for you to pa y for the very basics like food, housing, medical care, and heating? Not very hard 04/21/2023 PHQ-2 Answer Date Recorded Patient Health Questionnaire-2 Score 4 04/21/2023 [facility] [place] of Occupat ional Health - Occupational Stress Questionnaire Answer Date Recorded Do you feel stress - tense, restless, nervous, or anxious, or unable to sleep at night because your mind is troubled all the time - these days? Very much 04/21/2023 Exercise Vital Sign Answer Date Recorde d On average, how many days pe r week do you engage in moderate to strenuous exercise (like a brisk walk)? 7 days 04/21/2023 On average, how many minutes do you engage in exercise at this level? 30 min 04/21/2023 Hunger Vital Sign Answer Date Recorded Within the past 12 months, y ou worried that your food would run out before you got the money to buy more. Never true 11/13/19 24 Within the past 12 months, t he food you bought just didn't last and you didn't have money to get more. Never true 11/13/2023 PRAPARE - Transportation Answer Date Re corded In the past 12 months, has l ack of transportation kept you from medical appointments or from getting medications? No 10/16 In the past 12 months, has l ack of transportation kept you from meetings, work, or from getting things needed for daily living? No 11/13/2023 Housing Stability Vital Sign Answer Jim e Recorded In the last 12 months, was t here a time when you were not able to pay the mortgage or rent on time? No 11/13/2023 In the last 12 months, how many places have you lived? 1 11/13/2023 In the last 12 months, was t here a time when you did not have a steady place to sleep or slept in a fpc (including now)? No 11/13/2023 CAGE ASSESSMENT Answer Date Recorded Cage unable to access Not on file 04/22/2023 Cage max number of drinks Not on file 2022 Cage Beverages a week Not on file 04/22/2023 Have you ever felt you should CUT down on your d rinking? 0 04/22/2023 Have you been ANNOYED by people criticizing your drinking? 0 04/22/2023 Have you felt GUILTY about your drinking? 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 0 04/22/2023 CAGE Questionnaire Score 0 023 Utilities Answer Date Recorded In the past 12 months has th e electric, gas, oil, or water company threatened to shut off services in your home? No 11/13/2023 PHQ-2A Answer Date Recorded Patient Health Questionnaire-2 Score 4 04/21/2023 Comments Unknown Sex and Gender Information Value Date Recorded Sex Assigned at Not on file Legal Sex Female 8:57 PM EDT Gender Identity Not on file Sexual Orientation Not on file Last Filed Vital Signs Vital Sign Reading Time Taken Comments Blood Pressure 111/66 11/14/2023 4:47 PM EDT Pulse 84 11/14/2023 4:47 PM EDT Temperature 36.7 C (98.1 F) 11/14/2023 4:47 PM EDT Respiratory Rate 19 11/14/2023 4:47 PM EDT Oxygen Saturation 96% 11/14/2023 4:47 PM EDT Inhaled Oxygen Concentration - - Weight 73 kg (161 lb) 11/13/2023 12:08 AM EDT Height 175.3 cm (5' 9 ) 11/13/2023 12:08 AM EDT Body Mass Index 23.78 11/13/2023 12:08 AM EDT Plan of Treatment Health Maintenance Due Date Last Done Comments [facility]-Bone Density Scan 1984 [facility]-Infant/Child/Adol SDOH Screenings 1984 [facility]-Obesity Intervention 1990 [facility]- SDOH Screenings 2002 [facility]-Adult SDOH Screenings 2002 [facility]-Pap Smear 2005 [facility]-Cervical Cancer Screening 2014 [facility]-HPV/Cotest 2014 [facility]-IPV Vaccines (2 of 3 - Adult catch-up series) 07/04/2015 06/06/2015 HPV Vaccines (3 - 3-dose series) 02/15/2021 11/23/2020, 10/18/2020, 06/06/2015 [id number] Vaccine (4 - season) 2024 06/11/2023, 01/26/2021, 12/27/2020 [facility]-Depression Screening 04/21/2024 04/21/2023 [facility]-Influenza Vaccine (Season Ended) 2025 06/11/2023, 06/03/2023, 06/30/2022, Additional history exists [facility]-DTaP,Tdap,and Td Vaccines (4 - Td or Tdap) 07/03/2031 07/03/2021, 07/09/2016, 04/07/2014 [facility]-Pneumococcal Vaccine: Pediatrics (0 to 5 Years) and At-Risk Patients (6 to 49 Years) (3 of 3 - PCV20 or PCV21) 2034 06/24/2023, 05/27/2021, 06/02/2019, Additional history exists [facility]-Zoster Vaccines (1 of 2) 2034 07/03/2015, 06/04/2015 [facility]-HIB Vaccines Aged Out 06/06/2015 No longer e ligible based on patient's age to complete this topic [facility]-Varicella Vaccines Completed 07/03/2015, 2014 [facility]-Hepatitis A Vaccines Aged Out 017, 07/03/2015, 06/04/2015 No longer eligible based on patient's age to complete this topic [facility]-Hepatitis B Vaccines Completed 017, 07/03/2015, 06/04/2015 [facility]-HIV Screening Completed 04/20/2023 [facility]-Hepatitis C Screening Completed 04/20/2023 [facility]-Rotavirus Vaccines Aged Out No lo nger eligible based on patient's age to complete this topic Procedures Procedure Name Priority Date/Time Associated Diagnosis Comments HEPATITIS C ANTIBODY - ED W/REFLEX TO HCV QUANT PCR STAT 04/20/2023 11:18 PM EDT ED HIV 1/2 ANTIBODY/ANTIGEN SCREEN WITH REFLEX TO HIV I/II DIFFERENTIATION STAT 04/20/2023 11:18 PM EDT from Last 3 Months or Most Recently Relevant to Health Maintenance Results * ED HIV 1/2 Antibody/Antigen Screen w/Reflex to HIV 1/2 Differentiation (04/20/2023 11:18 PM EDT) HIV 1 & 2 Antibody/Antigen Screen Non Reactive Non Reactive 04/20/2023 11:54 PM EDT [facility] Comment:Screening for HIV 1 & 2 antibodies, and P24 antigen is NONREACTIVE. No confirmatory testing is required. Blood Venous blood specimen / Unknown Venipuncture / Unknown 04/20/2023 11:18 PM EDT 04/20/2023 11:20 PM EDT us Kate B Idris MEDIA ASSISTANT LAB BLOOD ORDERABLES [facility] [address] [place] [address] * Hepatitis C Antibody - ED (04/20/2023 11:18 PM EDT) Hepatitis C Antibody Negative Negative 04/20/2023 11:49 PM EDT [facility] Blood Venous blood specimen / Unknown Venipuncture / Unknown 04/20/2023 11:18 PM EDT 04/20/2023 11:20 PM EDT us Kate Grace Idris MEDIA ASSISTANT LAB BLOOD ORDERABLES [facility] [address] [place] [address] from Last 3 Months or Most Recently Relevant to Health Maintenance Insurance [employer] MEDICAID [facility] Advance Directives Documents on File Type Date Recorded 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 Yes * Full Code Date Activated Date Inactivated Comments 04/21/2023 12:10 AM 04/24/2023 4:04 PM Question Answer Comments Patient has decision-making capacity? Yes Care Teams Blade Grinder Relationship Specialty Start Date End Date Luciano Falk MD [address] [place] [address] PCP - General Internal Medicine 04/20/23
--- NOTE | 2025-01-28 19:57 | HMH.EDGENADL ---
Discharge Plan Disposition Patient Disposition: Home, Self-Care Condition: Good Prescriptions Prescriptions: New metoclopramide HCl [Reglan] 10 mg tablet 10 mg PO Q6H PRN (Reason: nausea and vomiting) Qty: 20 0RF esomeprazole magnesium 20 mg capsule,delayed release(DR/EC) 20 mg PO DAILY 56 Days Qty: 56 1RF No Action hydroxyzine pamoate 50 mg capsule 50 mg PO Q4H PRN (Reason: .) Patient Comments: TAKE ONE CAPSULE BY MOUTH EVERY 4 HOURS NEEDED quetiapine 100 mg tablet 100 mg PO HS Patient Comments: TAKE ONE TABLET BY MOUTH AT BEDTIME Linzess 145 mcg capsule 145 mcg PO DAILY Qty: 30 12RF Rx Instructions: Please take 1 capsule p.o. every morning (30 to 60 minutes prior to eating) pregabalin 200 mg capsule 200 mg PO BID Injectafer 50 mg iron/mL solution 750 mg IV Q7D estradiol [Estrace] 0.01 % (0.1 mg/gram) cream 0.25 appful vaginal .twice weekly Qty: 42.5 2RF Rx Instructions: please dispose of the applicator. Please apply a blueberry amount every night for two weeks. After this please apply twice a week for maintenance. lorazepam 1 mg tablet 1 mg PO BID PRN (Reason: abdominal pain) Qty: 60 2RF Rx Instructions: Please take 1/2 tablet to 1 tablet p.o. twice daily as needed abdominal pain Referrals Follow up/Referrals: Juan Pablo Maddox II, MD [Staff Physician, Gastroenterology] - See instructions Rupa Hicks APRN [Primary Care Provider, Family Practice] - See instructions Activity Restrictions/Add. Instructions Additional Instructions/Restrictions: As we discussed I am referring you to gastroenterology for upper endoscopy. Please call on Thursday to make your appointment. Also as we discussed I recommend discontinuation of marijuana use as it may be a complicating factor for your abdominal pain. If you have any persistent new or worsening signs or symptoms follow-up with your PCP or return to the ER as needed. 40 mg of esomeprazole (acid medication) each night prior to going to bed. Reglan as needed for nausea and vomiting. Clinical Impressions Clinical Impression: Acute exacerbation of chronic abdominal pain, Gastroenteritis Instructions Patient Instructions: DI for Acute Abdominal Pain Print Language Print Language: Nepali Discharge ED Provider: Che,Ross A General Adult HPI <GIA Mcneil - Last Filed: 01/28/25 22:08> General Chief complaint: Abdominal Pain Stated complaint: extreme stomache pain, fever N/v Time Seen by Provider: 01/28/25 19:55 History of Present Illness HPI narrative: Patient presents for evaluation of abdominal pain. Patient is status post gastric bypass and since her surgery has had multiple difficulties postoperatively. She has had chronic abdominal pain with previous diagnosis of anastomotic ulcer as well as anorexia. Patient states that her pain has been the same for months is just gotten acutely worse. She denies any fever chills hemoptysis hematochezia melena hematemesis hematuria. Related Data Home Medications ?Medication ?Instructions ?Recorded ?Confirmed pregabalin 200 mg capsule 200 mg PO BID RLS 02/05/21 01/27/25 hydroxyzine pamoate 50 mg capsule 50 mg PO Q4H PRN . 07/18/24 01/27/25 quetiapine 100 mg tablet 100 mg PO HS 07/18/24 01/27/25 Previous Rx's ?Medication ?Instructions ?Recorded linaclotide 145 mcg capsule 145 mcg PO DAILY #30 caps 08/31/24 (Linzess) ferric carboxymaltose 50 mg 750 mg (15 mL) IV Q7D 2 doses 11/02/24 iron/mL intravenous solution (Injectafer) lorazepam 1 mg tablet 1 mg PO BID PRN abdominal pain #60 12/05/24 tabs estradiol 0.01% (0.1 mg/gram) 0.25 appful vaginal .twice weekly 01/10/25 vaginal cream (Estrace) #42.5 grams esomeprazole magnesium 20 mg 20 mg PO DAILY 8 weeks #56 caps 01/28/25 capsule,delayed release metoclopramide HCl 10 mg tablet 10 mg PO Q6H PRN nausea and 01/28/25 (Reglan) vomiting #20 tabs Allergies Allergy/AdvReac Type Severity Reaction Status Date / Time hydromorphone (From Dilaudid) Allergy Intermediate Unknown Verified 01/10/25 14:43 allergy reaction NSAIDS (Non-Steroidal Allergy Unknown Unknown Verified 01/10/25 14:43 Anti-Inflamma allergy reaction lactose AdvReac Mild Nausea Verified 01/10/25 14:43 cilantro Allergy Severe throat and Uncoded 01/10/25 14:43 tongue swells, hives on face [facility] <GIA Mcneil - Last Filed: 01/28/25 22:08> [facility] Disclaimer: The information contained in this section may have been updated after the patient was seen, as this information can be updated by other users. Medical History (Updated 01/28/25 @ 22:40 by Ernesto Bolton MD) Chronic pain Encounter for routine gynecological examination Chronic upper abdominal pain Nausea vomiting and diarrhea Anxiety Psychiatric care Severe anxiety Peptic ulcer disease Edema Chronic low back pain Right shoulder pain Dizziness Atypical chest pain Nausea and vomiting Occult blood positive stool Atypical angina Diarrhea Abnormal result of cardiovascular function study Encounter for pre-operative cardiovascular clearance Abdominal pain Flu vaccine need Community acquired pneumonia Community acquired bacterial pneumonia Synovitis of right foot Morbid obesity with BMI of 40.0-44.9, adult Multiple joint pain Synovitis of left foot Metatarsus adductus of both feet Hypokalemia SHAUN (acute kidney injury) Class 3 severe obesity due to excess calories in adult Gastroenteritis Left ankle instability Metatarsus adductus of left foot Gastrocnemius equinus of left lower extremity Posterior tibial tendon dysfunction (PTTD) of left lower extremity Obesity Leukocytosis Acute renal insufficiency Hypokalemia Near syncope Gastroenteritis History of DVT (deep vein thrombosis) Palpitations Dizziness Ex-smoker Preoperative clearance Dyspnea Bilateral hip pain Chest pain Chest pain Pre-syncope Acute chest pain Acute upper GI bleed Headache Abdominal pain Exposure to hepatitis C Head ache Chronic nausea Chest pain Diarrhea Chest pain, non-cardiac Chronic headaches Right upper quadrant abdominal pain Tachycardia Shortness of breath Syncope LEONORA (obstructive sleep apnea) Elevated left ventricular end-diastolic pressure (LVEDP) Edema History of left heart catheterization SVT (supraventricular tachycardia) Pulmonary embolism Osteoarthritis Migraine HTN (hypertension) HLD (hyperlipidemia) Heart murmur GERD (gastroesophageal reflux disease) DVT (deep venous thrombosis) Afib Asthma Arrhythmia Anxiety History of pulmonary embolism Surgical History History of total abdominal hysterectomy Status post foot surgery History of bariatric surgery History of exploratory laparotomy History of cholecystectomy History of lumpectomy of left breast H/O knee surgery History of esophageal surgery H/O foot surgery Previous back surgery Family History Mother Family history of cancer Grandmother Family history of cancer Other Family history of hypertension Kidney disease Social History Smoking Status: Current some day smoker tobacco type: cigarettes packs per day: 4 second hand exposure: No alcohol intake: never substance use type: marijuana current occupational status: other Travel in the last 8 weeks?: None household members: spouse housing: house number of children: 0 current occupational exposures/hazards: No caffeine: No Have you lived/traveled outside [place] in past 30 days?: No Contact w/someone who lives/traveled outside [place] past 30 days?: No Exposure to someone with infectious disease in past 14 days?: No Do you have a fever (greater than 100.4 F or 38 C)?: No Have you tested positive for COVID-19?: No Exposed to someone with COVID-19 in past 14 days?: No Do you have a sore throat?: No Do you have a cough?: No Do you have any weakness?: No Do you have any diarrhea?: No Are you experiencing any unusual bleeding?: No Do you have any muscle aches/pain?: No Do you have any abdominal pain?: No Are you experiencing loss of taste or smell?: No Other Medical History Have you received the Flu Vaccine for this season: No Have you received the Pneumonia Vaccine: No <GIA Mcneil - Last Filed: 01/28/25 22:08> ROS Obtained: Yes Systems reviewed as appropriate & no additional complaints except as documented Physical Exam <GIA Mcneil - Last Filed: 01/28/25 22:08> General General appearance: alert and in no apparent distress Respiratory Respiratory exam: Present normal lung sounds bilaterally Cardiovascular Cardiovascular exam: Present tachycardia Neurological Exam Neurological exam: Present alert and oriented X3 Medical Decision Making <GIA Mcneil - Last Filed: 01/28/25 22:08> Medical Records Medical records reviewed: Yes I reviewed the patient's medical records. Screening: Per USPSTF and CDC recommendations, given the prevalence of disease in our region, it is our hospital?s policy to screen for HIV and viral Hepatitis for all patients aged 18 and over and those with ongoing risk factors. Dinesh Inquiry Pt receiving controlled substance: No Vital Signs: 01/28/25 19:56 01/28/25 20:00 06/14/25 20:29 Temperature 98.4 F Temperature Source Oral Pulse Rate 103 H 94 H Pulse Rate [Left] 112 H Respiratory Rate 22 Blood Pressure 137/96 H 110/70 Blood Pressure [Right Arm] 151/100 H Blood Pressure Mean [Right Arm] 117 Blood Pressure Source [Right Arm] Automatic Cuff Blood Pressure Position [Right Arm] Sitting 02 Sat by Pulse Oximetry 100 96 98 Oxygen Delivery Method Room Air 01/28/25 20:30 01/28/25 21:00 Temperature Temperature Source Pulse Rate 89 63 Pulse Rate [Left] Respiratory Rate Blood Pressure 113/83 101/68 L Blood Pressure [Right Arm] Blood Pressure Mean [Right Arm] Blood Pressure Source [Right Arm] Blood Pressure Position [Right Arm] 02 Sat by Pulse Oximetry 97 97 Oxygen Delivery Method Lab Data Lab results reviewed: Yes I reviewed the patient's lab results. Lab Results 01/28/25 20:09: WBC 8.4, RBC 5.23, Hgb 13.9, Hct 43.5, MCV 83.2, MCH 26.6 L, MCHC 32.0, RDW 24.6 H, Plt Count 291, MPV 9.2, Neut % (Auto) 60.1, Lymph % (Auto) 29.1, [place] % (Auto) 5.9, Eos % (Auto) 4.2, Baso % (Auto) 0.5, Neut # (Auto) 5.1, Lymph # (Auto) 2.5, [place] # (Auto) 0.5, Eos # (Auto) 0.4, Baso # (Auto) 0.0, ESR 20, Sodium 140, Potassium 4.1, Chloride 103, Carbon Dioxide 32 H, Anion Gap 9.1, BUN 10, Creatinine 0.80, Estimated Creat Clear 86, Estimated GFR 79, Est GFR ( Amer) 96, Glucose 131 H, Calcium 9.8, Phosphorus 3.1, Magnesium 2.0, Total Bilirubin 0.4, AST 39 H, ALT 15, Alkaline Phosphatase 131 H, C-Reactive Protein 2.3, Total Protein 8.2, Albumin 4.4, Globulin 3.8 H, Albumin/Globulin Ratio 1.2, Lipase 182, Procalcitonin 0.035, HCG, Quant < 2 01/28/25 20:24: VBG pH 7.32, VBG pCO2 58.8 H, VBG pO2 29.0, VBG HCO3 29.3, VBG Total CO2 31.1 H, VBG O2 Saturation 56.4, VBG Base Excess 3.1 H, VBG Lactic Acid 2.8 H 01/28/25 20:09 01/28/25 20:09 Orders (Tests/Meds): ED MEDICATIONS Generic Name Dose Route Start Last Admin Trade Name Frefausto PRN Reason Stop Dose Admin Sodium Chloride 10 ml 01/28/25 21:06 01/28/25 21:07 Sodium Chloride 0.9% 10ml Syr (Rad Only) IV 02/27/25 21:05 10 ml NEEDED PRN Administration Maintain IV Site Discontinued Medications Generic Name Dose Route Start Last Admin Trade Name Freq PRN Reason Stop Dose Admin Droperidol 2.5 mg 01/28/25 20:02 01/28/25 20:21 Droperidol 5mg/2ml Vial IV 01/28/25 20:03 2.5 mg ONCE ONE Administration Lactated Ringer's 1,000 mls @ 999 mls/hr 01/28/25 19:55 01/28/25 20:30 Lactated Ringer's 1000 Ml Bag IV 01/28/25 20:55 Not Given .Q1H1M ONE Sodium Chloride 1,000 mls @ 999 mls/hr 01/28/25 20:03 01/28/25 20:21 Sod Chlor 0.9% 1000ml Bag IV 01/28/25 21:03 999 mls/hr .Q1H1M ONE Administration Iopamidol 75 ml 01/28/25 21:06 01/28/25 21:07 Iopamidol-370 (76%);100ml Bottle IV 01/28/25 21:07 75 ml ONCE ONE Administration Morphine Sulfate 4 mg 01/28/25 19:55 01/28/25 20:21 Morphine 4mg/Ml Syringe IV 01/28/25 19:56 4 mg ONCE ONE Administration Ondansetron HCl 4 mg 01/28/25 19:55 01/28/25 20:22 Ondansetron 4mg/2ml Vial IV 01/28/25 19:56 4 mg ONCE ONE Administration ORDERS Category Date Time Status CT abdomen pelvis w con Stat Cat Scan 01/28/25 19:55 Completed CBC w/Auto Diff [Complete Blood Count Auto Diff] Stat Lab 01/28/25 20:09 Completed CMP [Comprehensive Metabolic Panel] Stat Lab 01/28/25 20:09 Completed CRP [C-Reactive Protein] Stat Lab 01/28/25 20:09 Completed ESR [Erythrocyte Sedimentation Rate] Stat Lab 01/28/25 20:09 Completed HCG,Quantitative Stat Lab 01/28/25 20:09 Completed Lipase Stat Lab 01/28/25 20:09 Completed Magnesium Stat Lab 01/28/25 20:09 Completed Phosphorous Stat Lab 01/28/25 20:09 Completed Procalcitonin Stat Lab 01/28/25 20:09 Completed UA [Urinalysis and Microscopic] Stat Lab 01/28/25 20:03 Ordered UDS [Drug Screen,Urine] Stat Lab 01/28/25 20:04 Ordered VBG [Venous Blood Gas] Stat RT 01/28/25 20:24 Completed Medical Decision Narrative: In summary patient is a 39-year-old female who presents to the emergency department for evaluation of acute on chronic abdominal pain. Patient is initially normotensive with a blood pressure 151/100 tachycardic at 112 with sinus tachycardia the bedside monitor breathing 22 times a minute satting at 100% on room air upon arrival, afebrile at 90.4. Physical exam is remarkable for an unwell appearing cachectic appearing 39-year-old female who is in moderate amount of abdominal pain but otherwise in no acute distress. Examination of breath sounds visibly clear and equal bilaterally to the bases without adventitious sounds examination abdomen feels to be soft exquisitely tender to even light palpation with no rebound or guarding or rigidity. Bowel sounds normal active.. Differential diagnosis includes bowel obstruction versus electrolyte abnormality versus dumping syndrome versus gastroenteritis versus anastomotic ulcer etc. Initial workup will be conducted with hematologic labs urinalysis urine drug screen CT scan abdomen pelvis. Initial interventions include crystalloid bolus and droperidol. Initial workup reviewed by me shows patient's hematologic labs significant for white count of 8.4 H&H of 13.9 and 43.5 respectively with an absolute neutrophil count of 5.1 sed rate is 20 VBG shows a pH of 7.32 pCO2 of 58.8 VBG lactic acid 2.8, glucose is 131 sodium 140 potassium is 4.1 chloride is 103 CO2 72 anion gap is 9.1 calcium is 9.8 phosphorus 3.1 magnesium is 2 AST is 39 8 alk phos is 131 CRP is 2.3 albumin is 4.4 total protein 8.2 lipase is 182 procalcitonin is 0.035. My informed interpretation of her CT scan abdomen pelvis shows fluid-filled small bowel but is not dilated and no other acute processes prior to radiology read. Please see final read for formal interpretation. Upon repeat evaluation has had significant improvement after droperidol. Given this patient is appropriate for discharge with referral to gastroenterology for upper endoscopy to rule out other pathology, I did have a discussion about hyperemesis of cannabis syndrome as patient uses marijuana for pain control but her marijuana use predates her onset of pain and that could be a possibility as a cause of worsening abdominal pain. Patient verbalized understanding and agreement. <Ernesto Bolton MD - Last Filed: 01/28/25 22:40> Vital Signs: 01/28/25 19:56 01/28/25 20:00 01/28/25 20:29 Temperature 98.4 F Temperature Source Oral Pulse Rate 103 H 94 H Pulse Rate [Left] 112 H Respiratory Rate 22 Blood Pressure 137/96 H 110/70 Blood Pressure [Right Arm] 151/100 H Blood Pressure Mean [Right Arm] 117 Blood Pressure Source [Right Arm] Automatic Cuff Blood Pressure Position [Right Arm] Sitting 02 Sat by Pulse Oximetry 100 96 98 Oxygen Delivery Method Room Air 01/28/25 20:30 01/28/25 21:00 Temperature Temperature Source Pulse Rate 89 63 Pulse Rate [Left] Respiratory Rate Blood Pressure 113/83 101/68 L Blood Pressure [Right Arm] Blood Pressure Mean [Right Arm] Blood Pressure Source [Right Arm] Blood Pressure Position [Right Arm] 02 Sat by Pulse Oximetry 97 97 Oxygen Delivery Method Lab Data Lab Results 01/28/25 20:09: WBC 8.4, RBC 5.23, Hgb 13.9, Hct 43.5, MCV 83.2, MCH 26.6 L, MCHC 32.0, RDW 24.6 H, Plt Count 291, MPV 9.2, Neut % (Auto) 60.1, Lymph % (Auto) 29.1, [place] % (Auto) 5.9, Eos % (Auto) 4.2, Baso % (Auto) 0.5, Neut # (Auto) 5.1, Lymph # (Auto) 2.5, [place] # (Auto) 0.5, Eos # (Auto) 0.4, Baso # (Auto) 0.0, ESR 20, Sodium 140, Potassium 4.1, Chloride 103, Carbon Dioxide 32 H, Anion Gap 9.1, BUN 10, Creatinine 0.80, Estimated Creat Clear 86, Estimated GFR 79, Est GFR ( Amer) 96, Glucose 131 H, Calcium 9.8, Phosphorus 3.1, Magnesium 2.0, Total Bilirubin 0.4, AST 39 H, ALT 15, Alkaline Phosphatase 131 H, C-Reactive Protein 2.3, Total Protein 8.2, Albumin 4.4, Globulin 3.8 H, Albumin/Globulin Ratio 1.2, Lipase 182, Procalcitonin 0.035, HCG, Quant < 2 01/28/25 20:24: VBG pH 7.32, VBG pCO2 58.8 H, VBG pO2 29.0, VBG HCO3 29.3, VBG Total CO2 31.1 H, VBG O2 Saturation 56.4, VBG Base Excess 3.1 H, VBG Lactic Acid 2.8 H Orders (Tests/Meds): ED MEDICATIONS Generic Name Dose Route Start Last Admin Trade Name Freq PRN Reason Stop Dose Admin Sodium Chloride 10 ml 01/28/25 21:06 01/28/25 21:07 Sodium Chloride 0.9% 10ml Syr (Rad Only) IV 02/27/25 21:05 10 ml NEEDED PRN Administration Maintain IV Site Discontinued Medications Generic Name Dose Route Start Last Admin Trade Name Freq PRN Reason Stop Dose Admin Droperidol 2.5 mg 01/28/25 20:02 01/28/25 20:21 Droperidol 5mg/2ml Vial IV 01/28/25 20:03 2.5 mg ONCE ONE Administration Lactated Ringer's 1,000 mls @ 999 mls/hr 01/28/25 19:55 01/28/25 20:30 Lactated Ringer's 1000 Ml Bag IV 01/28/25 20:55 Not Given .Q1H1M ONE Sodium Chloride 1,000 mls @ 999 mls/hr 01/28/25 20:03 01/28/25 20:21 Sod Chlor 0.9% 1000ml Bag IV 01/28/25 21:03 999 mls/hr .Q1H1M ONE Administration Iopamidol 75 ml 01/28/25 21:06 01/28/25 21:07 Iopamidol-370 (76%);100ml Bottle IV 01/28/25 21:07 75 ml ONCE ONE Administration Morphine Sulfate 4 mg 01/28/25 19:55 01/28/25 20:21 Morphine 4mg/Ml Syringe IV 01/28/25 19:56 4 mg ONCE ONE Administration Ondansetron HCl 4 mg 01/28/25 19:55 01/28/25 20:22 Ondansetron 4mg/2ml Vial IV 01/28/25 19:56 4 mg ONCE ONE Administration ORDERS Category Date Time Status CT abdomen pelvis w con Stat Cat Scan 01/28/25 19:55 Completed CBC w/Auto Diff [Complete Blood Count Auto Diff] Stat Lab 01/28/25 20:09 Completed CMP [Comprehensive Metabolic Panel] Stat Lab 01/28/25 20:09 Completed CRP [C-Reactive Protein] Stat Lab 01/28/25 20:09 Completed ESR [Erythrocyte Sedimentation Rate] Stat Lab 01/28/25 20:09 Completed HCG,Quantitative Stat Lab 01/28/25 20:09 Completed Lipase Stat Lab 01/28/25 20:09 Completed Magnesium Stat Lab 01/28/25 20:09 Completed Phosphorous Stat Lab 01/28/25 20:09 Completed Procalcitonin Stat Lab 01/28/25 20:09 Completed UA [Urinalysis and Microscopic] Stat Lab 01/28/25 20:03 Ordered UDS [Drug Screen,Urine] Stat Lab 01/28/25 20:04 Ordered VBG [Venous Blood Gas] Stat RT 01/28/25 20:24 Completed Medical Decision Narrative: In summary patient is a 39-year-old female who presents to the emergency department for evaluation of acute on chronic abdominal pain. Patient is initially normotensive with a blood pressure 151/100 tachycardic at 112 with sinus tachycardia the bedside monitor breathing 22 times a minute satting at 100% on room air upon arrival, afebrile at 90.4. Physical exam is remarkable for an unwell appearing cachectic appearing 39-year-old female who is in moderate amount of abdominal pain but otherwise in no acute distress. Examination of breath sounds visibly clear and equal bilaterally to the bases without adventitious sounds examination abdomen feels to be soft exquisitely tender to even light palpation with no rebound or guarding or rigidity. Bowel sounds normal active.. Differential diagnosis includes bowel obstruction versus electrolyte abnormality versus dumping syndrome versus gastroenteritis versus anastomotic ulcer etc. Initial workup will be conducted with hematologic labs urinalysis urine drug screen CT scan abdomen pelvis. Initial interventions include crystalloid bolus and droperidol. Initial workup reviewed by me shows patient's hematologic labs significant for white count of 8.4 H&H of 13.9 and 43.5 respectively with an absolute neutrophil count of 5.1 sed rate is 20 VBG shows a pH of 7.32 pCO2 of 58.8 VBG lactic acid 2.8, glucose is 131 sodium 140 potassium is 4.1 chloride is 103 CO2 72 anion gap is 9.1 calcium is 9.8 phosphorus 3.1 magnesium is 2 AST is 39 8 alk phos is 131 CRP is 2.3 albumin is 4.4 total protein 8.2 lipase is 182 procalcitonin is 0.035. My informed interpretation of her CT scan abdomen pelvis shows fluid-filled small bowel but is not dilated and no other acute processes prior to radiology read. Please see final read for formal interpretation. Upon repeat evaluation has had significant improvement after droperidol. Given this patient is appropriate for discharge with referral to gastroenterology for upper endoscopy to rule out other pathology, I did have a discussion about hyperemesis of cannabis syndrome as patient uses marijuana for pain control but her marijuana use predates her onset of pain and that could be a possibility as a cause of worsening abdominal pain. Patient verbalized understanding and agreement. I was consulted by the TRISTEN, and we discussed the complexity of the problems being addressed. I approved the treatment and management plan for this patient's care in the Emergency Department, thus performing a substantive portion of the medical decision making. CT seems consistent with gastritis, small bowel inflammation, fluid-filled loops of bowel and enteritis. Ernesto Bolton MD Critical Care <GIA Mcneil - Last Filed: 01/28/25 22:08> Critical Care Time Critical Care Time: No
--- NOTE | 2025-01-28 20:10 | ECG_ITS ---
APPROVED REPORT Exam: Resting ECG HR:89 bpm ECG Measurements Heart Rate 89 AXES DE 150 P 81 QRSd 86 QRS 81 QT 328 T 70 QTc 374 Conclusion SINUS RHYTHM NORMAL ECG Electronically signed by : LIVAN HERR, 01/30/2025 07:02:08
[2025-01-28 20:19] LABS: Basophils % 0.5 % (0.1-2.0); Eosinophils # 0.4 Kmm3 (0.0-0.4); Eosinophils % 4.2 % (0.1-12.0); Hematocrit 43.5 % (37.0-47.0); Hemoglobin 13.9 g/dL (12.2-16.2); Immature Granulocytes # 0.02 10^3uL; Immature Granulocytes % 0.2 %; Lymphocytes # 2.5 K/mm3 (0.7-4.5); Lymphocytes % 29.1 % (10-50); Mean Corpuscular Hemoglobin 26.6 pg (27.0-31.2); Mean Corpuscular Volume 83.2 fl (81-99); Mean Platelet Volume 9.2 fl (7.4-10.4); Monocytes # 0.5 K/mm3 (0.1-1.0); Monocytes % 5.9 % (1.7-9.3); Neutrophils # 5.1 K/mm3 (1.8-7.8); Neutrophils % 60.1 % (37.0-80.0); Nucleated Red Blood Cells # 0 10^3/uL; Nucleated Red Blood Cells % 0 %; Platelet Count 291 K/mm3 (142-424); Red Blood Count 5.23 M/mm3 (4.20-5.40); Red Cell Distribution Width 24.6 % (11.5-17.5); Red Cell Distribution Width-SD 69.8 fL; White Blood Count 8.4 K/mm3 (4.8-10.8)
[2025-01-28] MEDS: 0.9 % SODIUM CHLORIDE 1000ML 1,000 ML 999 ML IV (20:21)
[2025-01-28] MEDS: droPERidol 5MG/2ML VIAL 2.5 MG IV (20:21)
[2025-01-28] MEDS: MORPHINE 4MG/ML SYRINGE 4 MG IV (20:21)
[2025-01-28] MEDS: ONDANSETRON 4MG/2ML VIAL 4 MG IV (20:22)
[2025-01-28 20:26] LABS: Alanine Aminotransferase 15 U/L (12-78); Albumin Level 4.4 g/dl (3.5-5.0); Albumin/Globulin Ratio 1.2 (1.1-1.8); Alkaline Phosphatase 131 U/L (38-126); Anion Gap 9.1 mEq/L (5-15); Aspartate Amino Transferase 39 U/L (14-36); Bilirubin,Total 0.4 mg/dl (0.2-1.3); Blood Urea Nitrogen 10 mg/dl (7-17); Calcium 9.8 mg/dl (8.4-10.2); Carbon Dioxide 32 mmol/L (22.0-30.0); Chloride 103 mmol/L (98-107); Creatinine Clearance Estimated 86 mL/min (50-200); Estimated Glomerular Filt Rate 79 ml/min (>60); GFR (African American) 96 ML/MIN (>60); Globulin 3.8 g/dL (1.3-3.2); Glucose 131 mg/dl (74-100); Lipase 182 U/L (23-300); Potassium 4.1 mmoL/L (3.5-5.1); Sodium 140 mmol/L (136-145); Total Protein,Serum 8.2 g/dl (6.3-8.2)
[2025-01-28 20:27] LABS: Phosphorous 3.1 mg/dl (2.5-4.5)
[2025-01-28 20:31] LABS: VBG Base Excess 3.1 mmol/L (-2.4-2.3); VBG HCO3 29.3 mmol/L (23-30); VBG Oxygen Saturation 56.4 % (50-70); VBG PH 7.32 mmol/L (7.31-7.41); VBG Total CO2 31.1 mmol/L (23-27)
[2025-01-28 20:32] LABS: C-Reactive Protein 2.3 mg/L (0-4)
[2025-01-28 20:37] LABS: Lactate Venous 2.8 mmol/L (0.4-2.0); VBG PCO2 58.8 mmol/L (35-51)
[2025-01-28 20:45] LABS: Procalcitonin 0.035 ng/mL (0.0-2.0)
[2025-01-28 20:53] LABS: Erythrocyte Sedimentation Rate 20 mm/hr (0-20)
[2025-01-28 20:59] LABS: HCG,Quantitative < 2 mIU/ml (0-5.42)
[2025-01-28] MEDS: IOPAMIDOL-370 (76%);100ML BOTTLE 75 ML IV (21:07)
[2025-01-28] MEDS: SODIUM CHLORIDE 0.9% 10ML SYR (RAD ONLY) 10 ML IV (21:07)
--- NOTE | 2025-01-28 22:43 | PC.NURSE ---
IV discontinued. Catheter tip intact. Bleeding controlled.
[2025-01-29 00:36] LABS: Reflex Lactic Add Lactic Reflex
== END 2025-01-28 22:50 | disposition home or self-care (01) ==
PROVIDERS: Physician Assistant; Emergency Provider Emergency Medicine; PCP Nurse Practitioner Family
DX: R10.9 Unspecified abdominal pain (principal); K52.9 Noninfective gastroenteritis and colitis, unspecified; R00.0 Tachycardia, unspecified; R50.9 Fever, unspecified; F17.210 Nicotine dependence, cigarettes, uncomplicated
CPT/HCPCS: 74177; 80053; 82803; 83690; 83735; 84100; 84145; 84702; 85025; 85651; 86140; 93005; 96361; 96374; 96375; 99285; J1790; J2270; J2405; J7030; Q9967

== ENCOUNTER 2025-02-06 13:32 | Outpatient (POV) | payer OTHER, SELFPAY ==
--- OUTSIDE RECORDS SUMMARY | 2025-02-06 13:35 | XMS_ITS | Continuity of Care Document ---
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 pharmacy dispense (Rx) Oral (given [...] refill(s ), Acute, 05/15/19 2:00:00 AM T, [facility] pharmacy dispense (Rx) Oral (given by mouth) Complet ed 05/15/20192018 60.0 0125C-A Harpreet Benadryl 25 mg oral capsule 1 cap, Oral, every day at bedtime, PRN insomnia , # 30 cap, 0 total refill(s ), Acute, 12/09/17 5:55:00 PM [facility], [facility] pharmacy dispense (Rx) Oral (given by mouth) Discont inued 12/09/2017 7 2017 30.0 0125C-A CEM Mullins buPROPion 200 mg/12 hours (SR) oral tablet, extended release 1 tabs, Oral, BID, # 60 tabs, 1 total refill(s ), [facility]) Oral (given by [...] # 60 cap, 1 total refill(s ), [facility] pharmacy dispense (Rx) Discont inued 12/09/2017 8 2017 60.0 1480C-M adigan [place] DULoxetine 30 mg oral delayed release capsule 1 cap, Oral, BID, 1 cap oral daily for 7 -14 days then two po daily, # 60 cap, 2 total refill(s ), [facility]) Oral (given by mouth) Ordered 8 2017 60.0 1480C-M adigan [place] ergocalcife rol 50,000 intl units (1.25 mg) oral capsule cap, Oral, 0 total refill(s ), [facility] Oral (given by mouth) Discont inued 09/01/20172017 [...] refill(s ), Hard Stop, 09/01/17 11:00:46 AM [facility] pharmacy dispense (Rx) Oral (given by mouth) Complet ed 09/01/2017 8 2017 6.0 1480C-M martha [place] gabapentin 600 mg oral tablet 1 tabs, Oral, BID, 3 day coverage supply, # 180 tabs, 0 total refill(s ), [facility] pharmacy dispense (Rx) Oral (given by mouth) Discont inued 12/09/2017 8 2017 180.0 1480C-M martha [place] gabapentin 600 mg oral tablet gabapent in 600 mg oral tablet Start Date: 05/22/17 Stop Date: 08/27/17 Status: Mary vega Repeat number: 1 Discont inued 08/27/20172017 No Facilit y Access ibuprofen 600 mg oral tablet 1 tabs, Oral, every 8 hr, X 10 days, # 30 tabs, 0 total refill(s ), Acute, 12/09/17 5:55:00 PM CD, [facility] pharmacy dispense (Rx) Oral (given by mouth) Discont inued 12/09/20172017 30.0 0125A-A CEM Mullins Icy Hot with Capsaicin 0.025% topical cream 1 appl, Topical, BID, X 14 days, # 20 g, 0 total refill(s ), Acute, [facility] pharmacy dispense (Rx) Topica l (on the skin) Complet ed 08/26/20172017 20.0 0125A-A Harpreet lidocaine 5% topical film 1 patches, Topical, Daily, # 30 patches, 0 total refill(s ), Alekseytendorcas [facility] pharmacy dispense (Rx) Topica l (on the skin) Discont inued 12/09/2017 8 2017 30.0 0125A-A Harpreet Lidoderm 5% topical film 1 patches, Topical, Daily, Leave on for up to 12 hours within a 24 hour period (12 hours on, 12 hours off), # 30 patches, 5 total refill(s ), Gabby [facility] pharmacy dispense (Rx) Topica l (on the [...] 120 tabs, 0 total refill(s ), Gabby [facility] pharmacy dispense (Rx) Oral (given by mouth) Ordered 2017 120.0 0125C-A Harpreet [employer]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 pharmacy dispense (Rx) Oral (given by mouth) Discont inued 12/09/2017 7 2017 6.0 0125C-A Harpreet Naprosyn 250 mg oral tablet 1 tabs, Oral, BID, # 30 tabs, 0 total refill(s ), Acute, 08/20/17 2:00:00 AM [facility] pharmacy dispense (Rx) Oral (given by mouth) Complet ed 08/20/2017 7 2017 30.0 1485C-A HC El ondansetron 8 mg Tab-Dis 8 mg, # 30 EA, 3 total refill(s ), Hard Stop Discont inued 12/09/2017 8 2017 30.0 Ambulat ory Pharmac y pregabalin 150 mg oral capsule 1 cap, Oral, BID, # 60 cap, 3 total refill(s ), [facility] pharmacy dispense (Rx) Oral (given by mouth) Discont inued 02/25/2018 8 2017 60.0 0125C-A Harpreet pregabalin 150 mg oral capsule 1 cap, Oral, BID, # 180 cap, 3 total refill(s ), [facility] (Rx) Oral (given by [...] # 60 tabs, 0 total refill(s ), [facility] (Rx) Oral (given by mouth) Discont inued 02/25/2018 7 2017 60.0 0125C-A Harpreet promethazin e 25 mg oral tablet 1 tabs, Oral, every 4 hr, PRN nausea/v omiting, # 60 tabs, 0 total refill(s ), [facility] pharmacy dispense (Rx) Oral (given by mouth) Ordered 8 2017 60.0 0125C-A Harpreet propranolol 40 mg oral tablet 1 tabs, Oral, BID, Coverage supply, # 6 tabs, 0 total refill(s ), [facility] Stop, [facility] pharmacy dispense (Rx) Oral (given by mouth) Complet ed 09/01/2017 8 2017 6.0 1480C-M adigan [place] propranolol 40 mg oral tablet 1 tabs, Oral, BID, # 60 tabs, 0 total refill(s ), [facility] pharmacy dispense (Rx) Oral (given by mouth) Discont inued 07/28/2017 7 2016 60.0 1480C-M adigan [place] propranolol 40 mg oral tablet 1 tabs, Oral, BID, # 60 tabs, 0 total refill(s ), [facility], [facility] pharmacy dispense (Rx) Oral (given by mouth) Complet ed 08/27/2017 7 2017 60.0 1480C-M sonia [place] propranolol 40 mg oral tablet 1 tabs, Oral, BID, Coverage supply, # 60 tabs, 2 total refill(s ), Hard Stop, [facility] pharmacy dispense (Rx) Oral (given by mouth) Complet ed 12/16/2017 8 2017 60.0 1480C-M adsonia [place] propranolol 40 mg oral tablet 1 tabs, Oral, BID, Coverage supply, # 60 tabs, 2 total refill(s ), Gabby [facility] pharmacy dispense (Rx) Oral (given by mouth) Ordered 8 2017 60.0 1480C-M adigan [place] propranolol 40 mg oral tablet proprano lol [...] refill(s ), Hard Stop, 09/01/17 11:00:46 AM [facility], [facility] pharmacy dispense (Rx) Oral (given by mouth) Complet ed 09/01/2017 8 2017 3.0 1480-M kongsonia [place] zolpidem 5 mg oral tablet 1 tabs, Oral, Daily, PRN sleep, # 30 tabs, 2 total refill(s ), Gabby benjamin, [facility] pharmacy dispense (Rx) Oral (given by mouth) Ordered 8 2017 30.0 1480C-M adsonia [place] zolpidem 5 mg oral tablet zolpidem 5 [...] ion Darvocet A500 Drug allergy Rash Active 1485[facility] El DARVOCET A500 (PROPOXYPHENE NAP/ACETAMINO PHEN) Drug allergy (disorder) Rash active 6 Harpreet Edwards Dilaudid Drug allergy Rash Active 1485C-[facility] El DILAUDID (HYDROMORPHON E HCL) Drug allergy (disorder) Rash active 6 Harpreet Edwards HYDROmorphone Propensity to adverse reactions to substance Rash Active 6 Unknown Organizat ion ketorolac Propensity to adverse reactions to substance Rash Active 6 Unknown Organizat ion Toradol Drug allergy Rash Active [address] [place] [address] TORADOL (KETOROLAC TROMETHAMINE) Drug allergy (disorder) Rash active 6 Harpreet [facility] Immunizations Combined list of available immunizations from the Department of Defense and Veterans Affairs facilities. Immunization Series Date Given Administered By Site Reaction Lot Number CVX Code Drug Bottom Scrubber Status Comments Source Tdap 2020 RADHA, () Not Given Tdap DoD Influenza, injectable, MDCK, preservative free, quadrivalent 2020 RADHA, () Not Given Influenza , injectabl e, MDCK, preservat elizabeth free, quadrival ent DoD pneumococcal polysaccharid e PPV23 2020 RADHA, () Not Given pneumococ omar polysacch aride PPV23 DoD COVID-19, mRNA, LNP-S, PF, 30 mcg/0.3 mL dose 2020 JENNIFER KIMPongo [place]ume [place] (PFR) Not Given COVID-19, mRNA, LNP-S, PF, 30 mcg/0.3 mL dose DoD COVID-19, mRNA, LNP-S, PF, 30 mcg/0.3 mL dose 2020 ABHISHEKPongo Resume [place] (PFR) Not Given COVID-19, mRNA, LNP-S, [...] vaccine 2016 Pedro xiong Arm [id number] 104 [employer] ne complet ed hepatitis A-hepatit is B vaccine 03/27/17 Given Ambulat ory Pharmac y hepatitis A and hepatitis B vaccine 1 2016 JEFERSON RANDALL NZ3TA 104 [facility] ([facility]) complet ed hepatitis A and hepatitis B vaccine DoD Influenza, trivlanent, adjuvanted, pf 2015 zzLef t Arm [id number] [employer] complet ed Influenza , trivlanen t, adjuvante d, pf 07/09/16 Given Ambulat ory Pharmac y tetanus, diphtheria, acellular pertu is 2015 zzRig ht Arm K2D2T 115 [employer] ne complet ed tetanus, diphtheri a, acellular pertussis 07/09/16 Given Ambulat ory Pharmac y pneumococcal polysaccharid e, 23 valent 2015 zzLef t Arm [id number] [employer] complet ed pneumococ omar polysacch aride, 23 valent 07/09/16 Given Ambulat ory Pharmac y pneumococcal polysaccharid e vaccine, 23 valent 1 2015 FILIPE TRAMMELL [id number] 33 Merck (MSD) compl et ed pneumococ omar polysacch aride vaccine, 23 valent DoD tetanus toxoid, reduced diphtheria toxoid, and acellular pertu is vaccine, adsorbed 1 2015 FILIPE TRAMMELL [id number] 115 [facility] ([facility]) complet ed tetanus toxoid, reduced diphtheri a toxoid, and acellular pertussis vaccine, adsorbed DoD Influenza, seasonal, injectable, preservative free 1 2015 Unknown, Provider [id number] [employer] (SEQ) complet ed Influenza , seasonal, injectabl e, preservat elizabeth free DoD Seasonal trivalent influenza vaccine, adjuvanted, preservative free 1 2015 FILIPE TRAMMELL [id number] [employer] (SEQ) com plet ed Seasonal [...] ory Pharmac y Hep A-Hep B 2014 [place], () Not Given Hep A-Hep B DoD varicella 2014 [place], () Not Given varicella DoD varicella virus [...] Respiratory Rate 16 br/min 09/01/2017 16:30:00 1480CJaycob [place] Diastolic Blood Pressure 91 mm[Hg] 12/05/2017 03:33:00 [...] Heart Rate Monitored 91 bpm 08/12/2017 09:18[facility]reet Systolic Blood Pressure 133 mm[Hg] 02/03/2018 15:56:00 012-[facility] [place] Diastolic Blood Pressure 87 mm[Hg] 02/03/2018 15:56:00 [facility] Harpreet Mean Arterial Pressure, Calc 102 mm[Hg] 02/03/2018 15:56:00 0125C-[facility] Efrem phillips Peripheral Pulse Rate 107 bpm 02/03/2018 15:56:00 [facility] Harpreet Mean Arterial Pressure, Calc 91 mm[Hg] 09/30/2017 22:07:00 1480CJeffery n [place] Temperature Tympanic 36 Berta 09/30/2017 22:07:00 1480C-Harpreet [place] Temperature Tympanic 36.2 Berta 07/23/2017 17:47:00 Ambulatory Pharmacy Heart Rate Monitored 81 bpm 08/12/2017 08:18:00 [facility] Harpreet Respiratory Rate 16 br/min 08/12/2017 08:18:00 [facility] Harpreet Heart Rate Monitored 79 bpm 08/12/2017 07:19:00 [facility] Harpreet Heart Rate Monitored 79 bpm 08/12/2017 07:08:00 [facility] [place]preet Systolic Blood Pressure 108 mm[Hg] 12/09/2017 21:49:00 1485C-C [place] Diastolic Blood Pressure 76 mm[Hg] 12/09/2017 21:49:00 1485C-C [place] Respiratory Rate 17 br/min 12/09/2017 21:49:00 1485C-C [place] Temperature Tympanic 36.7 Berta 12/09/2017 21:49:00 1485C-C [place] Mean Arterial Pressure, Calc 87 mm[Hg] 12/09/2017 21:49:00 1485C-C Mc Chord Peripheral Pulse Rate 100 bpm 12/09/2017 21:49:00 1485C-C [place] Respiratory Rate 18 br/min 01/25/2018 20:32:00 012-[facility] Harpreet Temperature Tympanic 35.4 Berta 01/25/2018 20:32:00 0125C-[facility] [place]preet Peripheral Pulse Rate 95 bpm 01/25/2018 20:32:00 012-[facility] Harpreet Mean Arterial Pressure, Calc 96 mm[Hg] 01/25/2018 20:32:00 012-[facility] Efrem phillips Systolic Blood Pressure 137 mm[Hg] 01/25/2018 20:32:00 [facility]12[facility] Harpreet Diastolic Blood Pressure 76 mm[Hg] 01/25/2018 20:32:00 012[facility] Harpreet Systolic Blood Pressure 125 mm[Hg] 02/25/2018 17:27:00 012[facility] Harpreet Diastolic Blood Pressure 85 mm[Hg] 02/25/2018 17:27:00 [facility]12[facility] Harpreet Temperature Tympanic 36.2 Berta 02/25/2018 17:27:[address] [place], [place] [address]igan Mean Arterial Pressure, Calc 98 mm[Hg] 02/25/2018 17:27:00 [facility]12[facility] Efrem phillips Peripheral Pulse Rate 90 bpm 02/25/2018 17:27:00 [facility]12[facility] Harpreet Temperature Tympanic 36.2 Berta 12/16/2017 15:20:00 1480C-Harpreet [place] Mean Arterial Pressure, Calc 80 mm[Hg] 12/16/2017 15:20:00 1480C-Williana n [place] Systolic Blood Pressure 118 mm[Hg] 12/16/2017 15:20:00 1480C-Harpreet [place] Diastolic Blood Pressure 61 mm[Hg] 12/16/2017 15:20:00 1480C-Harpreet [place] Peripheral Pulse Rate 82 bpm 12/16/2017 15:20:00 1480C-Harpreet [place] Heart Rate Monitored 74 bpm 08/12/2017 06:19:00 [facility] Harpreet Diastolic Blood Pressure 94 mm[Hg] 12/05/2017 05:04:00 [facility] Harpreet Systolic Blood Pressure 141 mm[Hg] 12/05/2017 05:04:[address] [place], [place] [address]igan Respiratory Rate 16 br/min 12/05/2017 05:04:00 [facility] Harpreet Peripheral Pulse Rate 81 bpm 12/05/2017 05:04:00 [facility]12[facility] Harpreet Heart Rate Monitored 91 bpm 08/12/2017 07:01:[address] [place], [place] [address]igan Temperature Temporal Artery 36.6 Berta 08/12/2017 02:56:00 [facility] Efrem phillips Systolic Blood Pressure 190 mm[Hg] 01/22/2018 19:31:00 [facility]12[facility] Harpreet Diastolic Blood Pressure 80 mm[Hg] 01/22/2018 19:31:[address] [place], [place] [address]igan Temperature Tympanic 36.4 Berta 01/22/2018 19:31:00 0125C-RAMIRO [...] Medical Group(Can non_FHC_T eam B) TELE CONSULT [id number] Notes Entered by: SHAHRIAR SIERRA 06 Mar 2015 1329 ------- ------- ------- ------- -- NETWORK RESULT- ER-02/28 ARELI ZAMARRIPA 03/[facility]th [employer] [employer] [facility] [employer](Tio lawson_Wero HC_Team B) [facility] [employer] [facility] [employer](Can non_FHC_T eam B) OUTPATIENT [id number] CC F/U COLEEN WILLETT 03/28 Released w/o Limitations th [facility] [employer] [employer] [facility] [employer](Tio fieldF HC_Team B) [facility] [employer] [facility]) OUTPATIENT [id number] Per [facility] IDALIAMONALISADavid JOSE M 04/03 Released w/o Limitations [facility] [employer] [employer] [facility] [employer]([facility]) [facility]) OUTPATIENT [id number] ROTHMANDavidMARGARITADorcas Marshall 04/10 Released w/o Limitations th [facility] [employer] [facility] [employer]([facility]) [facility] [employer] [facility] [employer](Can non_FHC_T eam B) OUTPATIENT [id number] F/u per [facility] COLEEN WILLETT 04/11 Released w/o Limitations [facility] [employer](C annon_F HC_Team B) [facility](Can non_OpMed _Team A) TELE CONSULT [id number] Notes Entered by: MERLY WILKERSON 16 Apr 2015 1518 ------- ------- ------- ------- -- [facility] COLEEN WILLETT 04/16th [facility] [employer] [facility] [employer](C annon_O pMed_Te am A) [facility] [employer] [facility] [employer](Can non_FHC_T eam B) OUTPATIENT [id number] F/u Medicat [facility] COLEEN WILLETT 04/25 Released w/o Limitations th [facility] [employer] [facility] [employer](C annon_F HC_Team B) th [facility] [employer] [facility] [employer]([facility]) OUTPATIENT [id number] SIMSESDorcas Marshall 04/25 Released w/o Limitations [facility] [employer] [facility] [employer]([facility]) [facility]) OUTPATIENT [id number] JOSE MAYS 04/26 Released w/o Limitations th [facility]) th [facility](Can non_FHC_T eam B) TELE CONSULT [id number] Notes Entered by: SHAHRIAR SIERRA 30 Apr 2015 1024 ------- ------- ------- ------- -- NETWORK RESULT- R KNEE XRAY-05/2015 COLEEN WILLETT 04/30 [facility](C annrhina_F HC_Team B) [facility]) OUTPATIENT [id number] [facility] JOSE MCINTYRE 04/30 Released w/o Limitations [facility] [employer] [facility]) [facility] [employer] [facility] [employer]([facility]) TELE CONSULT [id number] Notes Entered by: OJSE MCINTYRE 02 May 2015 0731 ------- ------- ------- ------- -- JOSE Jennings 05/02th [facility]) 27 [facility](Can non_FHC_T eam B) TELE CONSULT [id number] Notes Entered by: ANISA MACHUCA 02 May 2015 0812 ------- ------- ------- ------- -- ANGUS STAPLES 05/02 Referred for Appointment [facility](C annrhina_F HC_Team B) [facility](Can non_FHC_T eam B) TELE CONSULT [id number] Notes Entered by: HEATHER RUIZ 03 May 2015 1326 ------- ------- ------- ------- -- Network Results - Podiatr y - 04/2015 COLEEN WILLETT 05/03th [facility](C annon_F HC_Team B) [facility](Can non_FHC_T eam B) TELE CONSULT [id number] Notes Entered by: LEATHA CARO 06 May 2015 1727 ------- ------- ------- ------- -- Network Results - MRI Brain - [id number] 8. COLEEN WILLETT 05/06th [facility](C annrhina_F HC_Team B) th [facility](Can non_FHC_T eam B) TELE CONSULT [id number] Notes Entered by: Dorcas ARZOLA 10 May 2015 1151 ------- ------- ------- ------- -- BILATER AL MAMMOGR AM. LEFT BREAST ULTRASO UND RESULTS LINDA OAKES 05/10 [facility](C annrhina_F HC_Team B) [facility]) TELE CONSULT [id number] Notes Entered by: JOSE MCINTYRE 10 May 2015 1900 ------- ------- ------- ------- -- Coordin [facility] JOSE MCINTYRE 05/11th [facility]) [facility]) OUTPATIENT [id number] OP JOSE MCINTYRE 05/11 Admitted [facility]) [facility](Can non_FHC_T ea B) OUTPATIENT [id number] Pt is followi ng up followi ng inpatie nt unit COLEEN WILLETT 06/06 Released w/o Limitations th [facility](C annrhina_F HC_Team B) [facility]) TELE CONSULT [id number] Notes Entered by: JOSE MCINTYRE 06 Jun 2015 1302 ------- ------- ------- ------- -- JOSE Jennings 06/06th [facility]) th [facility](Can non_Ped_T eam A) TELE CONSULT [id number] Notes Entered by: SAMANTHA WILLIS 11 Jun 2015 1109 ------- ------- ------- ------- -- Needle Stick AISHWARYA KLEIN 06/11th [facility](Tio lawson_P ed_Team A) [facility]) OUTPATIENT [id number] [facility] JOSE MCINTYRE 06/12 Released w/o Limitations th [facility]) 27 [facility]) OUTPATIENT [id number] PAP. 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 06/25 Released w/o Limitations th [facility]) th [facility](Can non_FHC_T eam B) TELE CONSULT [id number] Notes Entered by: ISHA RIZZO 26 Jun 2015 1322 ------- ------- ------- ------- -- 16 June 2015 [facility] ER GLENDY Grove 06/[facility](Tio Mccrary HC_Team B) [facility]) TELE CONSULT [id number] Notes Entered by: CHALINO MCGARRY 26 Jun 2015 1328 ------- ------- ------- ------- -- Care Coordin JOSE Hernandez 06/26th [facility]) [facility](Can non_FHC_T eam B) TELE CONSULT [id number] Notes Entered by: NEETU PEREZ 02 Jul 2015 0913 ------- ------- ------- ------- -- LAB RESULTS ERNIEAISHWARYA CASTELLANOS Rolando 07/02th [facility](C annon_F HC_Team B) th [facility](Can non_FHC_T eam B) OUTPATIENT [id number] KATTY NG BLOOD X2 DAYS COLEEN WILLETT 07/03 Released w/o Limitations th [facility](C annon_F HC_Team B) [facility]) OUTPATIENT [id number] routine -ss IMER TERRELL P 07/03 Released w/o Limitations th [facility] th [facility](Can non_FHC_T eam B) TELE CONSULT [id number] Notes Entered by: HEATHER RUIZ 06 Jul 2015 1022 ------- ------- ------- ------- -- Network Results - Mental Health - 06/2015 COLEEN WILLETT 07/06th [facility](C annon_F HC_Team B) th [facility]) OUTPATIENT [id number] [facility] JOSE MCINTYRE 07/10 Released w/o Limitations th [facility]) th [facility](Can non_FHC_T eam B) TELE CONSULT [id number] Notes Entered by: MISA CASH 16 Jul 2015 1425 ------- ------- ------- ------- -- NETWORK RESULTS -ER- COLEEN WILLETT 07/16th [facility](C annon_F HC_Team B) th [facility](Can non_FHC_T eam B) OUTPATIENT [id number] Resched uled Thyroid blookwo rk COLEEN WILLETT 07/17 Released w/o Limitations th [facility](C annon_F HC_Team B) th [facility]M P) TELE CONSULT [id number] Notes Entered by: NATALIIA LIRA 17 Jul 2015 1524 ------- ------- ------- ------- -- EF Case Review SHAHEED BUCIO 07/17 [facility](E [facility]) [facility](Can non_FHC_T eam B) TELE CONSULT [id number] Notes Entered by: NEETU PEREZ 18 Jul 2015 0746 ------- ------- ------- ------- -- BACK IS OUT GLENDY SILVA 07/18 [facility](C annrhina_F HC_Team B) [facility](Can non_FHC_T eam B) TELE CONSULT [id number] Notes Entered by: MISA CASH 18 Jul 2015 1152 ------- ------- ------- ------- -- NETWORK RESULTS -ECHOCA RDIOGRA M-07/17 OCLEEN WILLETT 07/18 [facility](C annon_F HC_Team B) [facility](Can non_FHC_T eam B) TELE CONSULT [id number] Notes Entered by: MISA CASH 18 Jul 2015 1625 ------- ------- ------- ------- -- NETWORK RESULTS -MRI L SPINE-1 09/18/14 COLEEN WILLETT 07/18 [facility](C annrhina_F HC_Team B) th [facility](Can non_FHC_T eam B) TELE CONSULT [id number] Notes Entered by: MISA CASH 20 Jul 2015 0943 ------- ------- ------- ------- -- NETWORK RESULTS -ER and ER (2)- COLEEN WILLETT 07/20th [facility](C annon_F HC_Team B) th [facility](Can non_FHC_T eam B) TELE CONSULT [id number] Notes Entered by: THOMPSON 20 Jul 2015 1104 ------- ------- ------- ------- -- NETWORK RESULT- ER-JUL 01 COLEEN WILLETT 07/20th [facility](C annon_F HC_Team B) [facility](Can non_FHC_T eam B) TELE CONSULT [id number] Notes Entered by: THOMPSON 20 Jul 2015 1117 ------- ------- ------- ------- -- NETWORK RESULT- ER(2)-2 JUL 01 COLEEN WILLETT 07/20th [facility](C annon_F HC_Team B) th [facility](Can non_FHC_T eam B) TELE CONSULT [id number] Notes Entered by: ANISA MACHUCA 24 Jul 2015 0925 ------- ------- ------- ------- -- GLENDY LOUIE 07/24th [facility](C annon_F HC_Team B) th [facility](Can non_FHC_T eam B) TELE CONSULT [id number] Notes Entered by: MISA CASH 24 Jul 2015 1005 ------- ------- ------- ------- -- NETWORK RESULTS -HOLTER MONITOR DAY-08/31 COLEEN WILLETT 07/24th [facility] [employer] [facility](C annon_F HC_Team B) [facility](Can non_FHC_T eam B) TELE CONSULT [id number] Notes Entered by: HEATHER RUIZ 25 Jul 2015 0829 ------- ------- ------- ------- -- Network [facility] - Neurolo gy - 06/2015 COLEEN WILLETT 07/25th [facility] [employer] [facility] [employer](C annon_F HC_Team B) [facility](Can non_FHC_T eam B) TELE CONSULT [id number] Notes Entered by: NEETU PEREZ 30 Jul 2015 1404 ------- ------- ------- ------- -- URINE TEST GLENDY SILVA 07/30th [facility](C annon_F HC_Team B) [facility](Angel se Case Managemen t) TELE CONSULT [id number] Notes Entered by: TYRON HAYES 31 Jul 2015 1307 ------- ------- ------- ------- -- Elzbieta villeda for [facility] M&V JOSR HAYES 07/31 Other Not Elsewhere Classified [facility](N urse Case Managem ent) [facility](Angel se Case Managemen t) TELE CONSULT [id number] Notes Entered by: TYRON HAYES 01 Aug 2015 1423 ------- ------- ------- ------- -- [facility] JOSR HAYES 08/01 Other Not Elsewhere Classified [facility](N urse Case Managem ent) [facility](Can non_FHC_T eam B) TELE CONSULT [id number] Notes Entered by: ISHA RIZZO 07 Aug 2015 1440 ------- ------- ------- ------- -- [id number] [facility] Log AISHWARYA KLEIN 08/07 [facility](C annon_F HC_Team B) [facility](Can non_FHC_T eam B) TELE CONSULT [id number] Notes Entered by: MISA CASH 20 Aug 2015 1015 ------- ------- ------- ------- -- NETWORK RESULTS -OPERAT ELIZABETH NOTE- COLEEN WILLETT 08/20th [facility](C annon_F HC_Team B) [facility](Can non_FHC_T eam B) TELE CONSULT [id number] Notes Entered by: HEATHER RUIZ 21 Aug 2015 1250 ------- ------- ------- ------- -- Network Results - Cardiol ogy - 07/2015 COLEEN WILLETT 08/21th [facility](C annon_F HC_Team B) th [facility](Can non_FHC_T eam B) TELE CONSULT [id number] Notes Entered by: HEATHER RUIZ 31 Aug 2015 1010 ------- ------- ------- ------- -- Network Results - Cardiol ogy - 07/2015 COLEEN WILLETT 08/31th [facility](C annon_F HC_Team B) [facility](Can non_FHC_T eam B) OUTPATIENT [id number] lab work for COLEEN Sadler 09/04 Released w/o Limitations [facility](C annon_F HC_Team B) [facility](Can non_FHC_T eam B) TELE CONSULT [id number] Notes Entered by: ANISA MACHUCA 13 Sep 2015 1328 ------- ------- ------- ------- -- SLEEP MACHINE NEEDED AISHWARYA KLEIN 09/13th [facility](C annon_F HC_Team B) th [facility](Can non_FHC_T eam B) TELE CONSULT [id number] Notes Entered by: ANISA MACHUCA 17 Sep 2015 1420 ------- ------- ------- ------- -- MEDICAT ION GLENDY HARRIS 09/17 [facility](C annon_F HC_Team B) th [facility](Can non_FHC_T eam B) TELE CONSULT [id number] Notes Entered by: HEATHER RUIZ 20 Sep 2015 1015 ------- ------- ------- ------- -- Network Results - Neurolo gy - 08/2015 COLEEN WILLETT 09/20 [facility](C annon_F HC_Team B) th [facility](Can non_FHC_T eam B) TELE CONSULT [id number] Notes Entered by: HEATHER RUIZ 25 Sep 2015 0844 ------- ------- ------- ------- -- Network Results - Sleep Study - 07/2015 COLEEN WILLETT 09/25th [facility](C annon_F HC_Team B) th [facility](Can non_FHC_T eam B) TELE CONSULT [id number] Notes Entered by: MISA CASH 08 Oct 2015 0757 ------- ------- ------- ------- -- NETWORK RESULTS -CARDIO LOGY- COLEEN WILLETT 10/08th [facility](C annon_F HC_Team B) th [facility](Can non_FHC_T eam B) OUTPATIENT [id number] CC ACID REFLUX COLEEN WILLETT 10/08 Released w/o Limitations [facility](C annon_F HC_Team B) th [facility](Can non_FHC_T eam B) TELE CONSULT [id number] Notes Entered by: Wicho EDWARDS 12 Oct 2015 1512 ------- ------- ------- ------- -- Possibl e yeast infecti on due to antibio tics GLENDY SILVA 10/12 [facility](C annon_F HC_Team B) th [facility](Can non_FHC_T eam B) TELE CONSULT [id number] Notes Entered by: NEETU PEREZ 15 Oct 2015 1325 ------- ------- ------- ------- -- MED EDUARDO CASH Released w/o Limitations [facility](C annon_F HC_Team B) [facility](Can non_FHC_T eam B) TELE CONSULT [id number] Notes Entered by: HEATHER RUIZ 16 Oct 2015 1453 ------- ------- ------- ------- -- Network Results - Endocri nology - 08/2015 COLEEN WILLETT 10/15th [facility](C annon_F HC_Team B) th [facility](Director Of Investigations [facility]) TELE CONSULT [id number] Notes Entered by: LANI BARNHART 19 Oct 2015 1015 ------- ------- ------- ------- -- VULVA BLEEDIN G, ITCHY,R ED AND SWOLLEN BERNALALL FRANCOIS Steff 10/18 [facility] OUTPATIENT [id number] pelvic exam ALL BERNAL Steff 10/21 Released w/o Limitations [facility](Can non_FHC_T eam B) TELE CONSULT [id number] Notes Entered by: LANI BARNHART 23 Oct 2015 1223 ------- ------- ------- ------- -- LAB RESULTS BERNALALL FRANCOIS Steff 10/22 [facility](C annrhina_F HC_Team B) [facility](Can non_FHC_T eam B) TELE CONSULT [id number] Notes Entered by: MISA CASH 12 Nov 2015 1559 ------- ------- ------- ------- -- NETWORK RESULTS -CPAP COMPLIA NCE REPORT- 6 COLEEN WILLETT 11/11 [facility](C annrhina_F HC_Team B) [facility](Can non_FHC_T eam B) OUTPATIENT [id number] CC KNEES PAINFUL AND SWELLIN G GETTING WORSE COLEEN WILLETT 11/15 Released w/o Limitations [facility](C annrhina_F HC_Team B) [facility](Can non_FHC_T eam B) TELE CONSULT [id number] Notes Entered by: HEATHER RUIZ 16 Nov 2015 1410 ------- ------- ------- ------- -- Network Results - Neurosu rgery - 07/2015 ; Pain Managem ent - 10/2015 ; ARELI ZAMARRIPA A 11/15 [facility](C annon_F HC_Team B) th [facility]) OUTPATIENT [id number] Obesity , unspeci MANUEL Brown A 11/19 Released w/o Limitations [facility](N utritio nal Medicin e) [facility](Can non_FHC_T eam B) TELE CONSULT [id number] Notes Entered by: MISA CASH 21 Nov 2015 1352 ------- ------- ------- ------- -- NETWORK RESULTS -CAROTI D ARTERY DUPLEX REPORT- 6 COLEEN WILLETT 11/20 [facility](C annon_F HC_Team B) th [facility](Can non_FHC_T eam B) TELE CONSULT [id number] Notes Entered by: MISA CASH 23 Nov 2015 1718 ------- ------- ------- ------- -- NETWORK RESULTS -CARDIO LOGY- COLEEN WILLETT 11/22th [facility](C annon_F HC_Team B) th [facility](Can non_FHC_T eam B) TELE CONSULT [id number] Notes Entered by: MISA CASH 27 Nov 2015 1620 ------- ------- ------- ------- -- NETWORK RESULTS -MRI L and R KNEES-0 11/26/15 DIMITRY WILSON 11/26 Advice Assessment th [facility](C annon_F HC_Team B) th [facility](Can non_FHC_T eam B) TELE CONSULT [id number] Notes Entered by: Christiana SILVA 28 Nov 2015 1545 ------- ------- ------- ------- -- Med GLENDY Crabtree 11/27 [facility](C annon_F HC_Team B) [facility](Can non_FHC_T eam B) TELE CONSULT [id number] Notes Entered by: HEATHER RUIZ 04 Dec 2015 1058 ------- ------- ------- ------- -- Network Results - Podiatr y - 11/2015 COLEEN WILLETT 12/03th [facility](C annon_F HC_Team B) [facility](Can non_FHC_T eam B) TELE CONSULT [id number] Notes Entered by: MISA CASH 05 Dec 2015 1551 ------- ------- ------- ------- -- NETWORK RESULTS -UPPER GI ENDOSCO PY-10/17 09/01 COLEEN WILLETT 12/04 [facility](C annon_F HC_Team B) [facility](Can non_FHC_T eam B) TELE CONSULT [id number] Notes Entered by: Wicho EDWARDS 06 Dec 2015 1050 ------- ------- ------- ------- -- DIMITRY Light 12/05 Referred for Appointment [facility](C annon_F HC_Team B) [facility](Can non_FHC_T eam B) TELE CONSULT [id number] Notes Entered by: MISA CASH 06 Dec 2015 1722 ------- ------- ------- ------- -- NETWORK RESULTS -CARDIO LOGY- COLEEN WILLETT 04/21 /2016 [facility](C annon_F HC_Team B) [facility](Can non_FHC_T eam B) TELE CONSULT [id number] Notes Entered by: KODI COREY 10 Dec 2015 1133 ------- ------- ------- ------- -- Candelario shepard. [id number] COLEEN WILLETT 12/09 [facility](C annon_F HC_Team B) [facility](Can non_FHC_T eam B) OUTPATIENT [id number] thyriod f/u request ing contra [facility] COLEEN WILLETT 12/11 Released w/o Limitations [facility](C annon_F HC_Team B) th [facility](Can non_FHC_T eam B) TELE CONSULT [id number] Notes Entered by: LANI BARNHART 18 Dec 2015 1034 ------- ------- ------- ------- -- MEDICAT ION REFGLENDY MONTAGUE 12/17 [facility](C annon_F HC_Team B) [facility], DIRECT TO [facility] [id number] MAHAMED POWER 01/14 DISCHARGED HOME Harpreet [facility] [place] Harpreet [facility], [facility] TO [facility] [id number] [phone] MAHAMED POWER 01/21 DISCHARGED HOME [facility]) OUTPATIENT [id number] HAVING A REACTIO N TO HER BLOOD THINNER MICHAEL ROMERO 02/11 Released w/o Limitations [facility]prete [facility] Edwards(A [facility]my Medical [facility] F[facility]B [facility]) [facility]) OUTPATIENT [id number] Notes Entered by: Christiana FAM 13 Feb 2016 1322 ------- ------- ------- ------- -- Risk Managem ent Review SOHAM FAM 02/12 Released w/o Limitations [facility] Leanne Hirsch) [facility], DIRECT TO [facility]-[id number] SIGNSERIC 02/13 DISCHARGED HOME [facility]([place] [id number] SAUCEDO 02/13 Inpatient- Still a Patient [facility](M [facility] Pain Interdi sciplin bi) [facility]([place] Cardiolog y Anticoagu lation) TELE CONSULT [id number] Notes Entered by: LUNA 19 Feb 2016 1555 ------- ------- ------- ------- -- [facility] STEVEN Begum 02/18 [facility](M ad[place] Cardiol ogy Anticoa gulatio n) [facility] Leanne Hirsch) OUTPATIENT [id number] Notes Entered by: Christiana FAM 20 Feb 2016 1024 ------- ------- ------- ------- -- case managem ent SOHAM FAM 02/19 Released w/o Limitations [facility] Leanne Hirsch) [facility]([place] Cardiolog y Anticoagu lation) OUTPATIENT [id number] Pulmona ry embolis STEVEN Gutierrez 02/20 Released w/o Limitations [facility](M adigan Cardiol ogy Anticoa gulatio n) [facility]([place] Cardiolog y Anticoagu lation) TELE CONSULT [id number] Notes Entered by: Esther ESTEVES 25 Feb 2016 0932 ------- ------- ------- ------- -- Labs STEVEN BAXTER 02/24 [facility](M adigan Cardiol ogy Anticoa gulatio n) [facility]([place] Cardiolog y Anticoagu lation) TELE CONSULT [id number] Notes Entered by: LUNA 25 Feb 2016 1511 ------- ------- ------- ------- -- Pt not able to do labs today STEVEN BAXTER 02/24 [facility](M adsonia Cardiol ogy Anticoa gulatio n) [facility] [address]) TELE CONSULT [id number] Notes Entered by: VÍCTOR RODRIGUEZ 26 Feb 2016 0838 ------- ------- ------- ------- -- Appoint SOHAM Mejia 02/25 [facility] [address]) [facility]([place] Cardiolog y Anticoagu lation) TELE CONSULT [id number] Notes Entered by: LUNA 26 Feb 2016 1603 ------- ------- ------- ------- -- documen tation of INR results and mariahari STEVEN Morales 02/25 [facility](M ad[place] Cardiol ogy Anticoa gulatio n) [facility]) TELE CONSULT [id number] Notes Entered by: GABY MOLINA 27 Feb 2016 1116 ------- ------- ------- ------- -- Family hx breast/ ocarian cancers GABY MORE 02/26 [facility]) [facility] [place] F[facility]) OUTPATIENT [id number] Notes Entered by: Christiana FAM 28 Feb 2016 1049 ------- ------- ------- ------- -- case managem ent SOHAM FAM 02/27 Released w/o Limitations [facility](A [facility] F[facility]B [facility]) [facility]([place] Cardiolog y Anticoagu lation) TELE CONSULT [id number] Notes Entered by: ALEJANDRA AGRAWAL 29 Feb 2016 1636 ------- ------- ------- ------- -- nano berg managem ent ALEJANDRA AGRAWAL 02/28 [facility](M adigan Cardiol ogy Anticoa gulatio n) [facility]([place] Cardiolog y Anticoagu lation) TELE CONSULT [id number] Notes Entered by: ALEJANDRA AGRAWAL 10 Mar 2016 1348 ------- ------- ------- ------- -- nano berg managem ent ALEJANDRA AGRAWAL 03/10 [facility](M [place] Cardiol ogy Anticoa gulatio n) [facility]) OUTPATIENT [id number] Prebx appt GABY MORE 03/10 Released w/o Limitations [facility]) [facility]) OUTPATIENT [id number] Prebx ed/coun carrie GABY MORE 03/13 Released w/o Limitations [facility]) [facility]([place] Cardiolog y Anticoagu lation) TELE CONSULT [id number] Notes Entered by: LUNA 13 Mar 2016 1519 ------- ------- ------- ------- -- Patient has upcomin g procedu re, may need to tempora radha vail inSTEVEN Dailey 03/13 [facility](M ad[place] Cardiol ogy Anticoa gulatio n) [facility]([place] Cardiolog [facility] Anticoagu lation) TELE CONSULT [id number] Notes Entered by: ISHA MUNOZ 14 Mar 2016 1258 ------- ------- ------- ------- -- Documen tation of INR results and warfari ng dosing. \ ISHA [facility]OZ 03[facility]14 [facility] [facility] Anticoa gulatio n) [facility]([place] Cardiolog y Anticoagu lation) TELE CONSULT [id number] Notes Entered by: ISHA MUNOZ 17 Mar 2016 1325 ------- ------- ------- ------- -- Documen tation of INR results and warfari ng dosing. ISHA MUNOZ 03/17 [facility](M [place] Cardiol ogy Anticoa gulatio n) [facility] [address]) TELE CONSULT [id number] Notes Entered by: Steff JACOBSEN 18 Mar 2016 0905 ------- ------- ------- ------- -- Virtual Polypha rmacy review [facility] Policy [place] [id number] JONH JACOBSEN 03/18 [facility] [address]) [facility]([place] Cardiolog y Anticoagu lation) TELE CONSULT [id number] Notes Entered by: Mali GROVES 21 Mar 2016 1445 ------- ------- ------- ------- -- INR results and dosing plan GEORGETTE MOTA 03/21 [facility](M ad[place] Cardiol ogy Anticoa gulatio n) [facility] TELE CONSULT [id number] Notes Entered by: GABY MOLINA 02 Apr 2016 1327 ------- ------- ------- ------- -- Breast biopsy results GABY MORE 04/02 [facility]) [facility] igan Cardiolog y Anticoagu lation) TELE CONSULT [id number] Notes Entered by: SARA DAIGLE 04 Apr 2016 1145 ------- ------- ------- ------- -- Patient concern s ISHA MUNOZ 04/04 [facility](M ad[place] Cardiol ogy Anticoa gulatio n) [facility] [address]) OUTPATIENT [id number] migrane s/dizzy HARSHA Snyder 04/07 Released w/o Limitations [facility] [address]) [facility] igan Cardiolog y Anticoagu lation) TELE CONSULT [id number] Notes Entered by: Mali GROVES 11 Apr 2016 1526 ------- ------- ------- ------- -- INR results and dosing plan , venlafa xine 100mg starts tomorro w. ALEJANDRA AGRAWAL 04/11 [facility](M [place] Cardiol ogy Anticoa gulatio n) [facility]([address]) TELE CONSULT [id number] Notes Entered by: Christiana FAM 22 May 2016 0905 ------- ------- ------- ------- -- f/u med HARSHA NUNN 05/22 [facility] [address]) [facility]) TELE CONSULT [id number] Notes Entered by: GABY MOLINA 29 May 2016 1311 ------- ------- ------- ------- -- Family hx breast cancer GABY MORE 05/29 [facility]) [facility]([address]) TELE CONSULT [id number] Notes Entered by: JOSSELIN NEGRON 30 May 2016 1508 ------- ------- ------- ------- -- Med Rx problem s JOSSELIN NEGRON 05/30 [facility] [address]) [facility]([address]) TELE CONSULT [id number] Notes Entered by: JASMEET WOLFF 02 Jun 2016 0803 ------- ------- ------- ------- -- prescri ption not called in correct ly JOSSELIN NEGRON 06/02 [facility](A [address]) [facility]([address]) TELE CONSULT [id number] Notes Entered by: SAWYER GIORDANO 16 Jun 2016 0854 ------- ------- ------- ------- -- Mendy [facility] ANDI GIORDANO 06/16 [facility]A [address]) [facility]([address]) [facility]PAT[facility] [id number] [facility] myrandayness back pain HARSHA NUNN 06/18 Released w/o Limitations [facility](A [address]) [facility]([place] Cardiolog y Anticoagu lation) TELE CONSULT [id number] Notes Entered by: ISHA MUNOZ 24 Jun 2016 1245 ------- ------- ------- ------- -- Pt had PT/INR drawn with request of INR results and warfari n dosing / Documen tat ISHA MUNOZ 06/24 [facility] Cardiol ogy Anticoa gulatio n) [facility]([address]) OUTPATIENT [id number] VÍCTOR Munoz 07/07 [facility] w/o Limitations [facility]A [address]) [facility] Edwards([address]) TELE CONSULT [id number] Notes Entered by: VÍCTOR RODRIGUEZ 09 Jul 2016 1231 ------- ------- ------- ------- -- Medicat FILIPE Maxwell 07/09 [facility] [address]) [facility] OUTPATIENT [id number] Migrain e, unspeci fied, not intract able, with status migrain osus ADRIAN TAPIA 07/16 [facility]ased w/o Limitations [facility]) [facility]([address]) TELE CONSULT [id number] Notes Entered by: Christiana FAM 16 Jul 2016 1325 ------- ------- ------- ------- -- MRI order needed for Neurosu VÍCTOR Mustafa 07/16 [facility] [address]) [facility] iga Intervent ional Radiology ) OUTPATIENT [id number] Notes Entered by: NORBERT TAPIA 16 Jul 2016 1431 ------- ------- ------- ------- -- Botox ADRIAN TAPIA 07/16 [facility]ased w/o Limitations [facility] Interve ntional Radiolo gy) [facility]) TELE CONSULT [id number] Notes Entered by: Christiana FAM 17 Jul 2016 0912 ------- ------- ------- ------- -- rx request VÍCTOR RODRIGUEZ 07/17 [facility](A [facility] F[facility]) [facility](Ana rosurgery ) OUTPATIENT [id number] Low back pain HOWARD DEEDEE L 07/22 Released w/o Limitations [facility](N eurosur melissa) [facility]([place] Cardiolog y Anticoagu lation) TELE CONSULT [id number] Notes Entered by: ISHA MUNOZ 24 Jul 2016 0941 ------- ------- ------- ------- -- Pt had PT/INR drawn with request of INR results and warfari n dosing / Documen tat ISHA MUNOZ 07/24 [facility](M ad[place] Cardiol ogy Anticoa gulatio n) [facility]([place] [facility]) TELE CONSULT [id number] Notes Entered by: SAHARA POLLACK 29 Jul 2016 1019 ------- ------- ------- ------- -- NETWORK RESULTS /GI/REF LUX EVAL/DO S 6/UPLOA DED IN TEJAS SAHARA RAMÍREZ 07/29 Other Not Elsewhere Classified [facility](M [facility]) [facility]([place] [place] [facility]) TELE CONSULT [id number] Notes Entered by: SAHARA POLLACK 29 Jul 2016 1217 ------- ------- ------- ------- -- NETWORK RESULTS /GI/LAB RS/DOS 6/UPLOA DED IN SAHARA MAXWELL 07/29 Other Not Elsewhere Classified [facility](Rolando th[facility]) [facility]) OUTPATIENT [id number] DISCUSS BARIATR IC SURGERY VÍCTOR RODRIGUEZ 07/31 Released w/o Limitations [facility](A y [facility] F[facility]) [facility] [facility] [place] F01B [facility]) OUTPATIENT [id number] Notes Entered by: Christiana FAM 05 Aug 2016 1252 ------- ------- ------- ------- -- case manage ent SOHAM FAM 08/05 Released w/o Limitations [facility] F01B [facility]) [facility](Arm [place] 437791B Griff) TELE CONSULT [id number] Notes Entered by: Christiana FAM 05 Aug 2016 1258 ------- ------- ------- ------- -- bladder concern s VÍCTOR RODRIGUEZ 08/05 [facility] 1B [facility]) [facility]([place] 173371B Griff) TELE CONSULT [id number] Notes Entered by: VÍCTOR RODRIGUEZ 05 Aug 2016 1442 ------- ------- ------- ------- -- Parking JOSSELIN Littlejohn 08/05 Referred for Appointment [facility] F01B [place]) [facility](Ana rosurgery ) OUTPATIENT [id number] 2ND OPINION , PRIOR DR DK Ross PT. RAYMOND KENNEDY 08/06 Released w/o Limitations [facility](N eurosur melissa) [facility]) TELE CONSULT [id number] Notes Entered by: VÍCTOR RODRIGUEZ 06 Aug 2016 1508 ------- ------- ------- ------- -- Urine results DONNA REESE Christiana 08/06 [facility] for [facility] [address]) [facility](Mad [place] Cardiolog y Anticoagu lation) TELE CONSULT [id number] Notes Entered by: LUNA 07 Aug 2016 1442 ------- ------- ------- ------- -- End of Oral Anticoa gulatio n Therapy STEVEN BAXTER 08/07 [facility](M adigan Cardiol ogy Anticoa gulatio n) [facility] [place] Pain Interdisc iplinary) OUTPATIENT [id number] INTAKE DARRIAN LEACH Christiana 08/12 Released w/o Limitations [facility](M adigan Pain Interdi sciplin bi) [facility](Mad [place] [facility]) TELE CONSULT [id number] Notes Entered by: Vickie PEREZ 13 Aug 2016 1542 ------- ------- ------- ------- -- NETWORK RESULTS GI EGD 016 JO PEREZ 08/13 Other Not Elsewhere Classified [facility](M adigan [facility]) [facility] 1B [facility]) OUTPATIENT [id number] pain in back,ri bs and hips,fe ll last week VÍCTOR RODRIGUEZ 08/14 Released w/o Limitations [facility]) [facility]) TELE CONSULT [id number] Notes Entered by: VÍTCOR RODRIGUEZ 15 Aug 2016 1432 ------- ------- ------- ------- -- Follow- up VÍCTOR RODRIGUEZ 08/15 [facility](A rmy Medical Home F01B [facility]) [facility](Uro logy) TELE CONSULT [id number] Notes Entered by: REJI DIAZ 19 Aug 2016 1427 ------- ------- ------- ------- -- Hematur ia DANYELL DIAZ 08/19 Released w/o Limitations [facility](U rology) [facility] [place] [facility]) TELE CONSULT [id number] Notes Entered by: SINTIA NAVARRETE 20 Aug 2016 0805 ------- ------- ------- ------- -- NETWORK RESULTS /US RUQ/DOS [id number]/ UPLOADE D INTO [facility] KHADAR NAVARRETE 08/20 Other Not Elsewhere Classified [facility](M adigan [facility]) [facility](Gen eral Surgery) OUTPATIENT [id number] Obesity , unspeci fied IAN LOPEZ 08/21 Released w/o Limitations [facility](G eneral Surgery ) [facility] [place] [facility]) TELE CONSULT [id number] Notes Entered by: BRANDT BATISTA 22 Aug 2016 1103 ------- ------- ------- ------- -- NETWORK RESULTS GI DIAGNOS TIC STUDIES / LABS DOS 12.9.20 16 BRANDT BATISTA 08/22 Other Not Elsewhere Classified [facility](M adigan [facility]) [facility] [place] Pain Interdisc iplinary) OUTPATIENT [id number] low back pain (INT EVAL) FROILAN MORRIS 08/27 Released w/o Limitations [facility](M adigan Pain Interdi sciplin bi) [facility](Arm y Medical Home F01B [facility]) TELE CONSULT [id number] JOSSELIN NEGRON 08/29 [facility]B [facility] ADMISSION RESULTING FROM [facility], DIRECT TO [facility] [id number] RAYMOND KENNEDY 09/01 DISCHARGED HOME [facility]([place] Weight Managemen t Case Managemen t) OUTPATIENT [id number] Notes Entered by: MARISELA CANALES 04 Sep 2016 1447 ------- ------- ------- ------- -- removal from bariatr ic pathway JOSE E CANALES 09/04 Released w/o Limitations [facility](M adsonia Weight Managem ent Case Managem ent) [facility](Arm Medical Home 1B [place]) TELE CONSULT [id number] Notes Entered by: GIANFRANCO MONTALVO 05 Sep 2016 0857 ------- ------- ------- ------- -- [facility] Inpatie nt Follow Up GIANFRANCO MONTALVO 09/05 [facility] [place]) [facility] [place]) TELE CONSULT [id number] Notes Entered by: VÍCTOR RODRIGUEZ 05 Sep 2016 1117 ------- ------- ------- ------- -- ECHO Pain Report VÍCTOR RODRIGUEZ 09/05 [facility] 1B [place]) [facility] TO [facility] [id number] ARELI COUCH 09/08 [facility] [place]) TELE CONSULT [id number] Notes Entered by: GIANFRANCO MONTALVO 12 Sep 2016 0831 ------- ------- ------- ------- -- MAMC Inpatie nt Follow Up VÍCTOR RODRIGUEZ 09/12 [facility] 1B [place]) [facility] Breast [facility]) TELE CONSULT [id number] Notes Entered by: GABY MOLINA 17 Sep 2016 1101 ------- ------- ------- ------- -- Br cancer hi risk f/u GABY MORE 09/17 [facility]) [facility] [place] 015171B [facility]) TELE CONSULT [id number] Notes Entered by: Christiana FAM 17 Sep 2016 1529 ------- ------- ------- ------- -- med refill SOHAM FAM 09/17 [facility] 1B [place]) [facility]) OUTPATIENT [id number] Med Review BARDY SAUCEDO 09/19 Released w/o Limitations [facility]) [facility] [place] 015171B [facility]) OUTPATIENT [id number] f/u hosp discect malorie/torrez inectom y L5 VÍCTOR RODRIGUEZ 09/19 Released w/o Limitations [facility] 1B [place]) [facility](Uro logy) OUTPATIENT [id number] hematur OLIVE Ledbetter 09/23 Released w/o Limitations [facility](U rology) [facility] [place] 015171B [facility]) OUTPATIENT [id number] Notes Entered by: Christiana FAM 23 Sep 2016 1508 ------- ------- ------- ------- -- case managem ent SOHAM FAM 09/23 Released w/o Limitations [facility](A y Medical Home 1B [place]) [facility](Arm y Medical Home [facility] Griff) TELE CONSULT [id number] Notes Entered by: VÍCTOR RODRIGUEZ 24 Sep 2016 0717 ------- ------- ------- ------- -- Low Vit D SOHAM FAM 09/24 [facility]) [facility](Ana rosurgery ) OUTPATIENT [id number] post-op f/u, DOS 08 September 2016 RAYMOND KENNEDY 09/24 Released w/o Limitations [facility](N eurosur melissa) [facility](Arm y Medical Home [address]) TELE CONSULT [id number] Notes Entered by: Christiana FAM 24 Sep 2016 0943 ------- ------- ------- ------- -- referra SOHAM Kraus 09/24 [facility] 1B [place]) [facility] Director Of Investigations Oncology) OUTPATIENT [id number] 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/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/?H RT IESHA DAVALOS 09/30 Released w/o Limitations [facility](M adigan Director Of Investigations Oncolog y) [facility] Medical [facility]) OUTPATIENT [id number] Notes Entered by: Christiana FAM 20 Oct 2016 1455 ------- ------- ------- ------- -- Case Managem ent SOHAM FAM 10/20 Released w/o Limitations [facility] 1B [place]) [facility](Arm y Medical [address]) TELE CONSULT [id number] Notes Entered by: JOSSELIN NEGRON 28 Oct 2016 1504 ------- ------- ------- ------- -- Labs prior to apptj JOSSELIN NEGRON Sanjay 10/28 Referred for Appointment [facility] F01B [facility]) [facility](Ana rology Clinic) OUTPATIENT [id number] SantiagoADRIAN Parson 10/29 Released w/o Limitations [facility](N eurolog y Clinic) [facility] [place] F01B [place]) OUTPATIENT [id number] F/U FOR IRON LEVELS JEFFERYIRINA Steff 11/05 Released w/o Limitations [facility] [place] F01B [place]) [facility] [place] [facility]) TELE CONSULT [id number] Notes Entered by: SAHARA POLLACK 06 Nov 2016 0928 ------- ------- ------- ------- -- NETWORK RESULTS /GI/EGD BX/DOS 7/UPLOA DED IN TEJAS SAHARA RAMÍREZ 11/06 Other Not Elsewhere Classified [facility](M [facility]) [facility](Mad [place] Echo Pain Teleconfe ren) TELE CONSULT [id number] Notes Entered by: Sal[place] LEACH 13 Nov 2016 1735 ------- ------- ------- ------- -- ECHO Pain TeleCon ference Present ation 04 Sep 2016 DARRIAN LEACH 11/14 [facility](M adigan Echo Pain Telecon ference ) [facility] [place] F01B [facility]) OUTPATIENT [id number] Notes Entered by: Christiana FAM 30 Dec 2016 1731 ------- ------- ------- ------- -- case managem ent SOHAM FAM 12/31 Released w/o Limitations [facility] [place] F01B [place]) [facility] F01B Griff) TELE CONSULT [id number] Notes Entered by: Christiana FAM 08 Jan 2017 1427 ------- ------- ------- ------- -- radiolo gy request s JOSSELIN NEGRON 01/08 [facility]) [facility](Arm y Medical Home 1B [facility]) OUTPATIENT [id number] Pt fell, hurt her back JEANA PABLO Wero 01/08 Released w/o Limitations [facility]) [facility](Ana rosurgery ) OUTPATIENT [id number] had fall recentl y needs reeval. RAYMOND KENNEDY 01/20 [facility] w/o Limitations [facility] eurosur melissa) [facility] Health Outcome Managemen t) OUTPATIENT [id number] Notes Entered by: Christiana FAM 26 Jan 2017 1212 ------- ------- ------- ------- -- case managem ent SOHAM FAM 01/26 [facility]ased w/o Limitations [facility] Health Outcome Managem ent) [facility] [place] [address]15[address]B [facility]) TELE CONSULT [id number] Notes Entered by: JOSSELIN NEGRON 29 Jan 2017 0838 ------- ------- ------- ------- -- Imaging results ERIC JESSICA 01/29 [facility]B [facility]) [facility] y Medical [place] [address]15171B Griff) OUTPATIENT [id number] review dexa scan and labs JOSE RUANO V 02/06 [facility]ased w/o Limitations [facility]B [facility]) [facility] ) OUTPATIENT [id number] eye exam PAU KOEHLER 02/13 [facility]ased w/o Limitations [facility] Opt[facility]) [facility] Health Outcome Managemen t) OUTPATIENT [id number] Notes Entered by: Christiana FAM 17 Mar 2017 1106 ------- ------- ------- ------- -- case managem ent SOHAM FAM 03/17 [facility] Health Outcome Managem ent) [facility]([address] Griff) TELE CONSULT [id number] Notes Entered by: Christiana FAM 19 Mar 2017 1640 ------- ------- ------- ------- -- referra christiana request for Bariatr ic Surgery ERIC JESSICA 03/19 [facility] for [facility](A [place] 808041[place] [facility]) [facility]([place] 173371B Griff) OUTPATIENT [id number] referra villeda for bariatr ic surgery PABLO HILLS 03/23 [facility]ased w/o Limitations [facility]([place] 808041B [facility]) [facility]) OUTPATIENT [id number] well woman exam/di scuss hormone MARIBELL Zazueta 03/26 [facility]ased w/o Limitations [facility]) [facility]) TELE CONSULT [id number] Notes Entered by: GABY MOLINA 01 Apr 2017 1447 ------- ------- ------- ------- -- Family armando castañeda cancer counseling case manager GABY MORE 04/01 [facility]) [facility]([place] 173371B Griff) TELE CONSULT [id number] Notes Entered by: Christiana FAM 16 Apr 2017 1408 ------- ------- ------- ------- -- MED REFILL JESSICAERIC MG Christiana 04/16 Medication Refill Forwarded [facility](A y Medical Home F01B [place]) [facility] C Health Outcome Managemen t) OUTPATIENT [id number] Notes Entered by: Christiana FAM 21 Apr 2017 0929 ------- ------- ------- ------- -- case managem ent SOHAM FAM 04/21 Released w/o Limitations [facility] Outcome Managem ent) [facility](Gen eral Surgery) OUTPATIENT [id number] Obesity , unspeci fied IAN LOPEZ 04/23 Released w/o Limitations [facility](G eneral Surgery ) [facility](Ana rology Clinic) OUTPATIENT [id number] BotADRIAN Parson 04/24 Released w/o Limitations [facility](N eurolog y Clinic) [facility]([place] Weight Managemen t Case Managemen t) OUTPATIENT [id number] Bariatr ic intake JOSE E CANALES 04/28 Released w/o Limitations [facility](M [place] Weight Managem ent Case Managem ent) [facility] Nutrition [facility]) OUTPATIENT [id number] healthy eating PATEL QUINN 04/28 Released w/o Limitations [facility](M ad[facility] Nutriti on Clinic) [facility] y Medical Home F01B Griff) OUTPATIENT [id number] Initial bariatr ic pathway PABLO HILLS 04/28 Released w/o Limitations [facility](A y Medical Home F01B [place]) [facility](Mad [place] Social Work Outpatien t) OUTPATIENT [id number] Bariatr ic Support Group FRANSICO VEGA 04/29 Released w/o Limitations [facility](M ad[place] Social Work Outpati ent) [facility](Arm y Medical Home F0 [place]) TELE CONSULT [id number] PABLO HILLS 05/05 [facility](A rmy Medical Home F01B [place]) [facility]([place] Director Of Investigations Oncology) OUTPATIENT [id number] JERROD BARTON 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 W/STG OCT 03, COULD NO RETRIEV E RCLIN, GEORGIE GREENE 05/19 [facility] w/o Limitations [facility](M [place] Director Of Investigations Oncolog y) [facility]([place] Weight Managemen t Case Managemen t) OUTPATIENT [id number] Notes Entered by: ZARINA IBRAHIM 21 May 2017 0752 ------- ------- ------- ------- -- Chart review for bariamna akins DEVORAH ALCARAZ 05/21 [facility] Limitations [facility](M [place] Weight Managem ent Case [...] HEALTH AND BEHAVIOR INTERVENTION, EACH 15 MINUTES, [id number]; GROUP (2 OR MORE PATIENTS) 04/28 DoD MEDICAL NUTRITION THERAPY; GROUP (2 OR MORE INDIVIDUAL(S)), EACH 30 MINUTES 04/28 DoD COORDINATED CARE FEE, RISK ADJUSTED MAINTENANCE 04/28 DoD INJECTION(S), ANESTHETIC AGENT(S) AND/OR STEROID; GREATER OCCIPITAL NERVE 04/24 DoD PSYCHOTHERAPY, 60 MINUTES WITH PATIENT 04/23 DoD PHYS/OTH QUALIFIED HEALTH DIRECTOR MEDICAL SCIENCE QUALIFIED,EDUCATIO N,TRAIN,LICENSURE/ REGULATION (WHEN APPLICABLE) EDUC SER RENDERED TO PATS IN A GRP SETTING (EG,,OBESI TY,OR DIABETIC INSTRUCT) 04/23 [facility] BRIEF EMOTIONAL/BEHAVIOR AL ASSESSMENT (EG, DEPRESSION INVENTORY, [...] DoD CASE MANAGEMENT, EACH 15 MINUTES 03/17 [facility] DETERMINATION OF REFRACTIVE STATE 02/13 [...] NUMBER OF CONSTITUENTS; W/O MICRO, NON-AUTO 09/23 [facility] MEDICATION THERAPY MGT SERVICE(S) PROVIDED,A PHARMACISTWOOD F YAHAIRA-TO-FACE W PATIENT,WITH ASSESS & INTERVENE IF PROVIDED;EA ADDITION 15 MINUTES (LIST SEPARATELY IN ADDITION TO CODE FOR PRIM SERVICE) 09/19 [facility] COORDINATED CARE FEE, RISK ADJUSTED MAINTENANCE, LEVEL 3 09/16 [facility] INSPECTION OF LUMBOSACRAL JOINT, OPEN [...] POSTOPERATIVE PERIOD REASON RELATED ORIGINAL PROCEDURE 09/09 [facility] LAMINOTOMY (HEMILAMINECTOMY), WITH DECOMPRESSION OF [...] DoD PSYCHOTHERAPY, 60 MINUTES WITH PATIENT 08/26 [facility] PHYS/OTH QUALIFIED HEALTH DIRECTOR MEDICAL SCIENCE QUALIFIED,EDUCATIO N,TRAIN,LICENSURE/ REGULATION (WHEN APPLICABLE) EDUC SER RENDERED TO PATS IN A GRP SETTING (EG,,OBESI TY,OR DIABETIC INSTRUCT) 08/21 DoD CASE MANAGEMENT, EACH 15 MINUTES 08/20 [facility] PSYCHIATRIC DIAGNOSTIC EVALUATION WITH MEDICAL SERVICES 08/07 DoD CASE MANAGEMENT, EACH 15 MINUTES 08/05 [facility] BRIEF EMOTIONAL/BEHAVIOR AL ASSESSMENT (EG, DEPRESSION INVENTORY, ATTENTION-DEFICIT/ HYPERACTIVITY DISORDER [ADHD] SCALE), WITH SCORING AND DOCUMENTATION, PER STANDARDIZED INSTRUMENT 08/04 [facility] PSYCHIATRIC DIAGNOSTIC EVALUATION 07/31 DoD CASE MANAGEMENT, EACH 15 MINUTES 07/29 [facility] INJECTION(S), ANESTHETIC AGENT(S) AND/OR STEROID; GREATER OCCIPITAL NERVE 07/16 DoD CASE MANAGEMENT, EACH 15 MINUTES 07/15 [facility] PNEUMOCOCCAL POLYSACCHARIDE VACCINE, 23-VALENT (PPSV23), ADULT OR IMMUNOSUPPRESSED PATIENT DOSAGE, WHEN ADMINISTERED TO INDIVIDUALS 2 YEARS OR OLDER, FOR SUBCUTANEOUS OR INTRAMUSCULAR USE 07/09 [facility] PSYCHOTHERAPY, 45 MINUTES WITH PATIENT 07/09 DoD CASE MANAGEMENT, EACH 15 MINUTES 07/09 DoD CASE MANAGEMENT, EACH 15 MINUTES 07/02 DoD PSYCHOTHERAPY, 45 MINUTES WITH PATIENT 06/17 [facility] INTRAVENOUS INFUSION, HYDRATION; EACH ADDITIONAL HOUR (LIST SEPARATELY IN ADDITION TO CODE FOR PRIMARY PROCEDURE) 06/14 [facility] COORDINATED CARE FEE, RISK ADJUSTED [...] SPECIMEN,WHEN PERFORMED,PERCUT;F IRST LESION,INCLUDING ULTRASOUND GUIDANCE 03/18 [facility] PHYS/OTH QUALIFIED HEALTH DIRECTOR MEDICAL SCIENCE QUALIFIED,EDUCATIO N,TRAIN,LICENSURE/ REGULATION (WHEN APPLICABLE) EDUC SER RENDERED TO PATS IN A GRP SETTING (EG,,OBESI TY,OR DIABETIC INSTRUCT) 03/13 DoD CASE MANAGEMENT, EACH 15 MINUTES 02/27 DoD EDUCATION &TRAINING, PATIENT SELF-MGT QUALIFIED, NONPHYSICIAN HEALTH DIRECTOR MEDICAL SCIENCE USING STDIZED CURRICULUM, [id number] W THE PATIENT (COULD INCL CAREGIVER/FAMILY) EA [...] HEALTH AND BEHAVIOR INTERVENTION, EACH 15 MINUTES, VAGE-[id number]-ROQV; FAMILY (WITH THE PATIENT PRESENT) 01/23 DoD HEALTH&BEHAV ASSESSMENT (EG, HEALTH-FOC CLINICAL INTERVIEW, BEHAVIORAL OBSERVATIONS, PSYCHOPHYSICOLOGIC AL MONITOR, HEALTH-ORIENT QUESTIONNAIRES), EA 15 MIN [id number] W THE PATIENT; INIT ASSESSMENT 01/22 DoD INJECTION, NALOXONE HCL, PER 1 MG 01/22 [facility] HOME MANAGEMENT TREATMENT USING ASSISTIVE, ADAPTIVE, SUPPORTIVE [...] ASSISTIVE, ADAPTIVE, SUPPORTIVE OR PROTECTIVE EQUIPMENT 01/20 [facility] BED MOBILITY TREATMENT USING ASSISTIVE, ADAPTIVE, SUPPORTIVE OR PROTECTIVE EQUIPMENT 01/20 [facility] INTRODUCTION OF OTHER THERAPEUTIC SUBSTANCE INTO SUBCUTANEOUS TISSUE, PERCUTANEOUS APPROACH 01/20 [facility] MOTOR FUNCTION ASSESSMENT OF NEUROLOGICAL SYSTEM - LOWER BACK / LOWER EXTREMITY 01/20 [facility] INTRODUCTION OF ANALGESICS, HYPNOTICS, SEDATIVES INTO PERIPHERAL VEIN, PERCUTANEOUS APPROACH 01/20 [facility] HEALTH&BEHAV ASSESSMENT (EG, HEALTH-FOC CLINICAL INTERVIEW, BEHAVIORAL OBSERVATIONS, PSYCHOPHYSICOLOGIC AL MONITOR, HEALTH-ORIENT QUESTIONNAIRES), EA 15 MIN [id number] W THE PATIENT; INIT ASSESSMENT 01/17 [facility] INJECTION, MORPHINE SULFATE, UP TO 10 MG 01/13 [facility] Coordinated care fee, risk adjusted maintenance 02/[address] [facility] Non-Physician Phone Call To Patient/Provider Brief (5-10min) Non-Physician Phone Call To Patient/Provider Brief (5-10min) [phone] 11/[address] [facility] Medical Nutrition Therapy Group (2 or More Individual(s)) Medical Nutrition Therapy Group (2 or More Individual(s)) [id number] 11/[address] [facility] Non-Physician Phone Call To Patient/Provider Brief (5-10min) Non-Physician Phone Call To Patient/Provider Brief (5-10min) [id number] [facility] Non-Physician Phone Call To Patient/Provider Brief (5-10min) Non-Physician Phone Call To Patient/Provider Brief (5-10min) [phone] 09/[address] [facility] Non-Physician Phone Call To Patient/Provider Brief (5-10min) Non-Physician Phone Call To Patient/Provider Brief (5-10min) [id number] 08/[address] [facility] Case Management, each 15 minutes 08/[address] [facility] Case Management, each 15 minutes 07/31 JOSR HAYES 45 minutes - review of records, completion and fax of UHCM&V CM referral, and documentation [facility] Determination Of Refractive State Determination Of Refractive State [id number] 07/[address] [facility] Ophthalmological New Patient Start Comprehensive Care Ophthalmological New Patient Start Comprehensive Care [phone] 07/[address] [facility] Non-Physician Phone Call To Patient/Provider Brief (5-10min) Non-Physician Phone Call To Patient/Provider Brief (5-10min) [phone] 06/[address] [facility] Screening papanicolaou smear; obtaining, preparing and conveyance of cervical or vaginal smear to laboratory 06/[address] [facility] Non-Physician Phone Call To Patient/Provider Brief (5-10min) Non-Physician Phone Call To Patient/Provider Brief (5-10min) [id number] 06/[address] [facility] Non-Physician Phone Call To Patient/Provider Brief (5-10min) Non-Physician Phone Call To Patient/Provider Brief (5-10min) [id number] 05/[address] [facility] Case Management, each 15 minutes 05/21 DEVORAH ALCARAZ Chart review, relay health, and documentation [facility] Coordinated care fee, maintenance rate 05/[address] [facility] Health And Behav Intervention, Each 15 Min Grp (2 Or More) Health And Behav Intervention, Each 15 Min Grp (2 Or More) 26318 04/[address] [facility] Medical Nutrition Therapy Group (2 or More Individual(s)) Medical Nutrition Therapy Group (2 or More Individual(s)) 21461 04/[address] [facility] Coordinated care fee, risk adjusted maintenance 04/[address] [facility] Case Management, each 15 minutes 04/28 JOSE E CANALES AG#1,5,1,17 [facility] Injection, onabotulinumtoxina , 1 unit 04/[address] [facility] Nerve Block Greater Occipital 04/[address] [facility] -Supervised Group Educational Services -Supervised Group Educational Services 43530 04/[address] [facility] -Supervised Services Provision Of Educational Supplies -Supervised Services Provision Of Educational Supplies 31727 04/[address] [facility] Case Management, each 15 minutes 04/23 SOHAM FAM 2.5 hours for targeted assessment and coordination of services. [facility] Coordinated care fee, maintenance rate 04/23 SOHAM FAM Immunization Administration One Vaccine Immunization Administration One Vaccine 10396 03/27 P[place]LO H[place]S Hepatitis A And Hepatitis B (Intramuscular Use) Adult Dosage Hepatitis A And Hepatitis B (Intramuscular Use) Adult Dosage 17513 03/27 [place] Hep A-Hep B; Series #: 1; 1.0 mL; IM; Left Arm; Mfg: 2sms; Lot: [id number]; VIS given (Michael: 03/05/16; 03/05/16). [facility] Case Management, each 15 minutes 03/19 3 hours for targeted assessmetn and complex coordination of services. [facility] Coordinated care fee, risk adjusted maintenance 03/19 [facility] Determination Of Refractive State Determination Of Refractive State 44015 02/[address] [facility] Ophthalmological New Patient Start Comprehensive Care Ophthalmological New Patient Start Comprehensive Care 64796 02/13 CHAO KOEHLER Coordinated care fee, risk adjusted maintenance 01/30 SOHAM FAM 3.5 hrs spent on coordination of care, targeted assessment, and emotional support. Hanane Case Management, each 15 minutes 01/30 SOHAM FAM Case Management, each 15 minutes 01/06 SOHAM FAM 4 hrs for targeted assessment, coordination of services, and careplan. [facility] Coordinated care fee, risk adjusted maintenance 01/06 SOHAM FAM Nerve Block Greater Occipital 10/30 ADRIAN TAPIA Injection, onabotulinumtoxina , 1 unit 10/30 ADRIAN TAPIA Case Management, each 15 minutes 10/22 SOHAM FAM 3 hours for targeted assessment, coordination of care, and followup phone calls. [facility] Coordinated care fee, risk adjusted maintenance 10/22 SOHAM FAM Coordinated care fee, risk adjusted maintenance 09/26 SOHAM FAM Case Management, each 15 minutes 09/26 SOHAM FAM 4 hrs for targeted assessment, 3 phone followups, complex coordination of services, and patient activation simple for education. [facility] Routine UA Without Microscopic Examination Routine UA Without Microscopic Examination 24651 09/23 DOUGIE DIAZ Cystoscopy (Diagnostic) Cystoscopy (Diagnostic) 65851 09/[address] [facility] Medication Management By Pharmacist Each Additional 15 Min Medication Management By Pharmacist Each Additional 15 Min 73751 09/[address] [facility] Med Management By Pharmacist Initial 15 Min New Patient Med Management By Pharmacist Initial 15 Min New Patient [id number] 09/[address] [facility] Intervention And Counseling On Ce ation Of Tobacco Use Intervention And Counseling On Cessation Of Tobacco Use 4000F 09/[address] [facility] Case Management, each 15 minutes 09/17 SOHAM FAM 2 hrs spent doing inpatient hospital followup and coordination of services. [facility] Coordinated care fee, risk adjusted maintenance, Level 3 09/17 SOHAM FAM DoD Case Management, each 15 minutes 09/05 SOHAM FAM 4 hours for inpatient hospital followup, complex coordination of services, Multi D meeting for pain mgmt, and [address] [facility] Coordinated care fee, risk adjusted maintenance 09/[address] [facility] Coordinated care fee, maintenance rate 09/04 JOSE E CANALES DoD Case Management, each 15 minutes 09/04 JOSE E CANALES AG#2 DoD Case Management, each 15 minutes 08/26 SOHAM FAM 3 hours for targeted assessment, coordination of services with , emotional support. [facility] Coordinated care fee, risk adjusted maintenance 08/[address] [facility] Psychiatric Evaluation Review of Records and Reports Psychiatric Evaluation Review of Records and Reports 94353 08/21 IESHA LUONG The patient's available records (medication/pres criptions, relevant progress notes, and relevant labs) were reviewed outside of a face to face appointment for the purpose of aiding in treatment planning and/or development of diagnoses. DoD Case Management, each 15 minutes 08/07 SOHAM FAM 3 hrs spent with patient for targeted assessments, followup phone calls X 3, complex coordination of services. [facility] Coordinated care fee, risk adjusted maintenance 08/[address] [facility] Psychiatric Evaluation Comprehensive Examination Psychiatric Evaluation Comprehensive Examination 80831 07/31 YURIY LOPEZ DoD Case Management, each 15 minutes 07/31 SOHAM FAM 3 hours for targeted assessment, complex coordination of care. DoD Coordinated care fee, risk adjusted maintenance 07/31 SOHAM FAM Case Management, each 15 minutes 07/18 SOHAM FAM 4 hrs this week working on targeted assessment, complex coordination of services with multiple providers of care, multiple followup phone calls to patient, [facility] Coordinated care fee, risk adjusted [...] for pain management and lack of function. [facility] Coordinated care fee, risk adjusted maintenance 07/16 SOHAM FAM Immunization Administration One Vaccine Immunization Administration One Vaccine 36353 07/[address] [facility] Immunization Administration Each Additional Vaccine Immunization Administration Each Additional Vaccine 07422 07/09 VÍCTOR RODRIGUEZ 1. Patient denies feeling sick with fever 2. Patient denies having a serious reaction to a flu vaccine 3. Patient denies having Guillian-Scott syndrom (GBS) 4. Patient denies having a [...] benefits and risks of the influenza vaccine. [facility] Tdap Vaccine Tdap Vaccine 58012 07/09 VÍCTOR RODRIGUEZ Tdap; Series #: 1; .5 mL; IM; Right Arm; Mfg: 2sms; Lot: [id number]; VIS given (Michael: 10/10/14). [facility] Pneumococcal Polysaccharide Vaccine (Age 2Y+) Pneumococcal Polysaccharide Vaccine (Age 2Y+) 39335 07/09 VÍCTOR RODRIGUEZ Pneumococcal polysaccharide PPV23; Series #: 1; .5 mL; IM; Left Arm; Mfg: Merck; Lot: [id number]; VIS given (Michael: 12/08/14). [facility] Case Management, each 15 minutes 07/03 SOHAM FAM Targeted assessment, coordination of care, Multi D discussions. [facility] Coordinated care fee, risk adjusted maintenance 07/[address] [facility] Psychiat Ther Indiv Interactive Approximately 45-50 Minutes 06/24 VÍCTOR CRUZ Case Management, each 15 minutes 05/22 SOHAM FAM 3 hours for targeted assessment and complex coordination of care, [facility] Coordinated care fee, risk adjusted maintenance 05/22 SOHAM FAM Case Management, each 15 minutes 05/15 SOHAM FAM 5 hours for comprehensive care to targeted/modifie d followup for pain, updated careplan, complex coordination of services for multiple referrals, individual emotional support to include LUKAS and Depression scoring. [facility] Coordinated care fee, risk adjusted maintenance 05/15 SOHAM FAM Non-Physician Phone Call To Patient/Provider Brief (5-10min) Non-Physician Phone Call To Patient/Provider Brief (5-10min) 12883 04/14 KATHY GROVES Non-Physician Phone Call To Patient/Provider Brief (5-10min) Non-Physician Phone Call To Patient/Provider Brief (5-10min) 13868 03/[address].-Supervised Services Provision Of Educational Supplies -Supervised Services Provision Of Educational Supplies 10922 03/[address]Supervised Group Educational Services -Supervised Group Educational Services 31319 03/13 GABY MORE Case Management, each 15 minutes 03/04 SOHAM FAM 3 hours with multiple f/u calls to patient, complex coordinaton of services with multiple specialties and appts needed, Mult D meeting with two providers of care. [facility] Coordinated care fee, risk adjusted maintenance 03/04 SOHAM FAM Medication Management By Pharmacist Each Additional 15 Min Medication Management By Pharmacist Each Additional 15 Min 61902 02/25 STEVEN BAXTER Med Management By Pharmacist Initial 15 Min New Patient Med Management By Pharmacist Initial 15 Min New Patient [id number] 02/25 STEVEN BAXTER Preventive Medicine Anticoagulant Therapy Warfarin Preventive Medicine Anticoagulant Therapy Warfarin 4012F 02/25 STEVEN BAXTER Patient Counseling Medical Management Individual Patient Patient Counseling Medical Management Individual Patient [id number] 02/25 STEVEN BAXTER Case Management, each 15 minutes 02/21 SOHAM FAM 3 hrs spent doing Transitional Care post discharge from hospital, multi D with several providers of care, patient teaching/activat ion regarding anticoagulation therapy to assess understanding, and coordination of service. [facility] Coordinated care fee, risk adjusted maintenance, Level 3 02/21 SOHAM FAM Case Management, each 15 minutes 02/18 SOHAM FAM 5 hrs spent on the following: Initial Assessment, Face To Face Health Care Goal Planning, Complex Coordination of a Service with multiple specialties, Risk Assessment, Hospital Discharge, [facility] Social History Combined list of [...] section is an empty social history section. [facility] Assessment and Plan Combined list [...] spent 21 minutes of my 40 minutes [id number] with the patient discussing the examination, therapy, [...] tolerated the procedure well. Adrian Tapia MD [facility] Interventional Neuroradiology Staff [facility] Ordered: onabotulinumtoxinA, 200 units, IntraMuscular, Injection, Once, First Dose: 02/25/2018 16:00:00 PDT, Stop Date: 02/25/2018 16:00:00 PDT CHEMODEN,1 EXT;EA ADD,1-4 [facility] [place] [facility] [place] [address] N Block Inj, Occipital 10089 Common migraine without aura Ordered: onabotulinumtoxinA, 200 units, IntraMuscular, Injection, Once, First Dose: 02/25/2018 16:00:00 PDT, Stop Date: 02/25/2018 16:00:00 PDT [place] Musc Migraine 22962 Extracted from:Title: Office Clinic Note Author: PRITESHJACOBY Date: 01/26/18 1. D evice status Ordered: Ankle foot orthosis, ankle gauntlet L1902 Foot, arch support, removable, premolded, longitudinal L3040 Orthotic Mgmt+Trainj Uxtr Lxtr+/Trnk Ea 15 Min 02785 2. T ibialis tendonitis Ordered: Ankle foot orthosis, ankle gauntlet L1902 Foot, arch support, removable, premolded, longitudinal L3040 Orthotic Mgmt+Trainj Uxtr Lxtr+/Trnk Ea 15 Min 80934 3. T ibialis tendonitis Ordered: Ankle foot orthosis, ankle gauntlet L1902 Foot, arch support, removable, premolded, longitudinal L3040 Orthotic Mgmt+Trainj Uxtr Lxtr+/Trnk Ea 15 Min 68599 Extracted from:Title: Neurology Office Visit Note Author: ADIRAN TAPIA Date: 01/22/18 Cervico-occipital neuralgia 1. H [...] spent 21 minutes of my 40 minutes [id number]-[id number] with the patient discussing the examination, therapy, [...] tolerated the procedure well. Adrian Tapia MD [facility] Interventional Neuroradiology Ordered: Bilateral N Block Inj, Occipital 05290 Office Visit Level 4 Est 88472 Extracted from:Title: General Surgery Clinic Note Author: [...] understanding. Ordered: Office Visit Level 4 Est 58016 2. P endulous breast Bilateral. Will refer back to Plastics Clinic for further evaluation and treatment. Ordered: Office Visit Level 4 Est 37792 3. B ilateral foot pain Chronic. Will get bilateral foot xrays and will refer patient to Podiatry Clinic. patient is aware that her weight is a contributing factor. 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 pharmacy dispense (Rx) [Not filled] Medical Referral Request Medical Referral Request Medical Referral Request Extracted from:Title: Botox injections for migraine Author: NICHOLE AU Date: 12/03/17 1. C najmaadama migraine without aura OnabotulinumtoxinA(Botox) injections Lot #: [id number] Expiration Date: MAR 2020 Concentration: 0.1ml = 5 units, no EMG guidance Muscle Right ? L eft Procerus midline 5 Induction Heat Treater 5 units ? 5 units Frontalis 5 [...] Date: 12/03/2017 15:00:00 PDT [place] Musc Migraine 94608 Office Visit Level 2 Est 91996 Extracted from:Title: Clinical Pharmacy Note Bariatric Pathway [...] decreased. Recommend using calcium citrate. o [facility] patients who require medication for [...] Ordered: Medication Therapy Each Additional 15 Min 75436 Medication Therapy Initial 15 Min New Patient 32122 Extracted from:Title: Neurology Office Visit Note Author: [...] spent 21 minutes of my 40 minutes obpz-sr-eujp with the patient discussing the examination, therapy, [...] # 30 tabs, 0 total refill(s), 08/20/2017, [facility] pharmacy dispense (Rx) [Not filled] XR Calcaneous Left 02/06/[address] [place] [address] Assessment and Plan Extracted from:Title : Neurology [...] spent 21 minutes of my 40 minutes [id number] with the patient discussing the examination, therapy, [...] tolerated the procedure well. Adrian Tapia MD [facility] Interventional Neuroradiology Staff [facility] Ordered: onabotulinumtoxinA, 200 units, IntraMuscular, Injection, Once, First Dose: 02/25/2018 16:00:00 PDT, Stop Date: 02/25/2018 16:00:00 PDT CHEMODEN,1 EXT;EA ADD,1-4 [facility] [place] [place] [address] N Block Inj, Occipital 22548 Common migraine without aura Ordered: onabotulinumtoxinA, 200 units, IntraMuscular, Injection, Once, First Dose: 02/25/2018 16:00:00 PDT, Stop Date: 02/25/2018 16:00:00 PDT [place] Musc Migraine 12773 Extracted from:Title: Office Clinic Note Author: JACOBY JONAS Date: 01/26/18 1. D evice status Ordered: Ankle foot orthosis, ankle gauntlet L1902 Foot, arch support, removable, premolded, longitudinal L3040 Orthotic Mgmt+Trainj Uxtr Lxtr+/Trnk Ea 15 Min 15540 2. T ibialis tendonitis Ordered: Ankle foot orthosis, ankle gauntlet L1902 Foot, arch support, removable, premolded, longitudinal L3040 Orthotic Mgmt+Trainj Uxtr Lxtr+/Trnk Ea 15 Min 16511 3. T ibialis tendonitis Ordered: Ankle foot orthosis, ankle gauntlet L1902 Foot, arch support, removable, premolded, longitudinal L3040 Orthotic Mgmt+Trainj Uxtr Lxtr+/Trnk Ea 15 Min 39400 Extracted from:Title: Neurology Office Visit Note Author: [...] spent 21 minutes of my 40 minutes dzbv-wi-hizy with the patient discussing the examination, therapy, [...] tolerated the procedure well. Adrian Tapia MD [facility], Interventional Neuroradiology Ordered: Bilateral N Block Inj, Occipital 84083 Office Visit Level 4 Est 25099 Extracted from:Title: General Surgery Clinic Note Author: [...] understanding. Ordered: Office Visit Level 4 Est 67220 2. P endulous breast Bilateral. Will refer back to Plastics Clinic for further evaluation and treatment. Ordered: Office Visit Level 4 Est 70049 3. B ilateral foot pain Chronic. Will get bilateral foot xrays and will refer patient to Podiatry Clinic. patient is aware that her weight is a contributing factor. 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 pharmacy dispense (Rx) [Not filled] Medical Referral Request Medical Referral Request Medical Referral Request Extracted from:Title: Botox injections for migraine Author: NICHOLE AU Date: 12/03/17 1. C reva migraine without aura OnabotulinumtoxinA(Botox) injections Lot #: [id number] Expiration Date: MAR 2020 Concentration: 0.1ml = 5 units, no EMG guidance Muscle Right ? L eft Procerus midline 5 Induction Heat Treater 5 units ? 5 units Frontalis 5 [...] Date: 12/03/2017 15:00:00 PDT [place] Musc Migraine 06275 Office Visit Level 2 Est 82380 Extracted from:Title: Clinical Pharmacy Note Bariatric Pathway [...] decreased. Recommend using calcium citrate. o [facility] patients who require medication for [...] Ordered: Medication Therapy Each Additional 15 Min 29780 Medication Therapy Initial 15 Min New Patient 47217 Extracted from:Title: Neurology Office Visit Note Author: [...] spent 21 minutes of my 40 minutes rjyp-gy-vmna with the patient discussing the examination, therapy, [...] # 30 tabs, 0 total refill(s), 08/20/2017, [facility] pharmacy dispense (Rx) [Not filled] XR Calcaneous Left 02/06/[address] [place] [address] Functional Status Combined list of recent functional and cognitive assessments recorded at [facility] Functional Cameron Measurement (FIM) Scale: 1 = Total Assistance (Subject = 0% +), 2 = Maximal Assistance (Subject = 25% +), 3 = Moderate Assistance (Subject = 50% +), 4 = Minimal Assistance (Subject = 75% +), 5 = Supervision, 6 = Modified Cameron (Device), 7 = Complete Cameron (Timely, Safely). Assessment Date/Time Source Assessment Type Assessment Skill Assessment Score Assessment Details FUNCTIONAL 12/16/17 Home Dietary Supplements Captured Yes
--- OUTSIDE RECORDS SUMMARY | 2025-02-06 13:38 | XMS_ITS | Referral Summary ---
Author Organization [facility] Init iatives Address [address] [place] [address] Care Team Providers Care Research Group Director Name Role Phone Luciano Falk MD Primary Care Provider [phone] Allergies No known active allergies Social History [...] Date Reese rded Speak language other than [place] at home Not on file 09/04/2023 Want [...] Plan of Treatment Not on file [facility] Care Teams Research Group Director Relationship Specialty Start Date End Date Luciano Falk MD [address] [place] [id number] PCP - General Adolescent Medicine 05/09/23
--- OUTSIDE RECORDS SUMMARY | 2025-02-06 13:38 | XMS_ITS | Data Portability ---
Author Organization [facility] ADMIN Address [address] [place] [id number] Assessment Encounter Date Assessment Date Assessment LastModified by Organization Details LastModified Time 06/23/2024 06/23/2024 Ms. Castrejon was referred by Dr. Velez (neurology) for management of chronic migraines. She denies DM, history of infection, or anti-coagulan t use. [email or web address] Not available 06/23/2024 17:51:54 Plan of Treatment Reminders Order Date Submit Date Provider Last Modified By Organization Details Last Modified Time Details Appointments None recorded. Lab vitamin D, 25-hydroxy, total, serum 2023 024 WILLIS [facility], [address], [address], [place], [address], 4 20:39:28 CBC w/ auto diff 2023 024 WILLIS [facility], [address], [address], [place], [address], 4 20:39:24 thiamine, QN, blood 2023 024 WILLIS [facility], [address], [address], [place], [address], 4 20:39:29 prealbumin, serum 2023 024 WILLIS [facility], [address], [address], [place], [address], 4 20:39:33 copper, serum or plasma 2023 024 MARYAM [facility], [address], [address], [place], [address], 4 20:39:31 selenium, quantitativ e, blood 2023 024 MARYAM [facility], [address], [address], [place], [address], 4 20:39:33 zinc, serum or plasma 2023 024 MARYAM [facility], [address], [address], [place], [address], 4 20:39:32 CMP, serum or plasma 2023 024 MARYAM [facility], [address], [address], [place], [address], 4 20:39:25 iron + TIBC + ferritin, serum 2023 024 MARYAM [facility], [address], [address], [place], [address], 4 20:39:22 folate, serum 2023 024 MARYAM [facility], [address], [address], [place], [address], 4 20:39:27 vitamin E, serum 2023 024 MARYAM [facility], [address], [address], [place], [address], 4 20:39:26 vitamin A (retinol), serum 2023 024 MARYAM [facility], [address], [address], [place], [address], 4 20:39:28 TSH + free T4, serum 2023 024 MARYAM [facility], [address], [address], [place], [address], 4 20:39:23 methylmalon ate, QN, serum or plasma 2023 024 MARYAM [facility], [address], [address], [place], [address], 4 20:39:30 Referral None recorded. Procedures chemodenerv ation of muscle(s); muscle(s) innervated by facial, trigeminal, cervical spinal and accessory nerves, bilateral (PROC) - 41427, Botox injections for migraines - 155 units 2023 024 [email or web address] Not available 5 11:34:23 Surgeries esophagogas troduodenos copy (SURG) 2023 024 [email or web address] Mia Landaverde MD, [address], [address], [place], [address], 4 11:36:46 Imaging RF, upper gastrointes tinal tract + small bowel, w/ contrast PO 2023 024 [facility] (Centralized Scheduling), [address], [place], [address], 4 13:11:31 Medication Orders Botox 200 unit injection 2023 024 [email or web address] Not available 4 10:31:07 Botox 200 unit injection 2023 024 [email or web address] Not available 4 10:09:04 Botox 200 unit injection 2023 024 [email or web address] Not available 4 11:28:34 thiamine HCl (vitamin B1) 100 mg/mL injection solution 2023 024 [email or web address] Not available 4 10:37:12 cyanocobala min (vit B-12) 1,000 mcg/mL injection solution 2023 024 [email or web address] Not available 4 10:35:04 Patient TargetsNo targets recorded. Patient Instructions Encounter Date Encounter Id Patient Instructions Last Modified By Organization Details Last Modified Time 06/23/2024 [id number] I have discussed in great detail our [...] __ __ __ __ __ _ JACQUI: [id number] I have reviewed patient's JACQUI report prior to prescribing Schedule II, III, and IV medications that require review by law. [email or web address] Not available 06/23/2024 17:53:22 Reason for Referral None Reported. Results Created Date Observation Date Name Description Value Unit Range Abnormal Flag Note LastModifiedBy Organization Detail LastModifiedTime 08/25/19 24 08/26/2023 FE+TI BC+FE R iron bind.cap.(TI BC) 340 ug/dL 250-45 0 Not Available [facility] ([facility]) [address] [place], [address], 08/31/2023 20:39:22 08/25/19 24 08/26/2023 FE+TI BC+FE R UIBC 323 ug/dL 131-42 5 Not Available [facility] ([facility]) [address] [place], [address], 08/31/2023 20:39:22 08/25/19 24 08/26/2023 FE+TI BC+FE R iron 17 ug/dL 27-159 below low normal Not Available [facility] ([facility]) [address] [place], [address], 08/31/2023 20:39:22 08/25/19 24 08/26/2023 FE+TI BC+FE R iron saturation 5 % 15-55 alert low Not Available [facility] ([facility]) [address] [place], [address], 08/31/2023 20:39:22 08/25/19 24 08/26/2023 FE+TI BC+FE R ferritin 19 NG/mL 15-150 Not Available [facility] ([facility]) [address] [place], [address], 08/31/2023 20:39:22 08/25/19 24 08/26/2023 TSH+F REE T4 TSH 1.120 uIU/m L 0.450- 4.500 Not Available [facility] ([facility]) [address] [place], [address], 08/31/2023 20:39:23 08/25/19 24 08/26/2023 TSH+F REE T4 T4,free(dire ct) 1.10 NG/dL 0.82-1 .77 Not Available [facility] ([facility]) [address] [place], [address], 08/31/2023 20:39:23 08/25/19 24 08/26/2023 CBC WITH DIFFE RENTI AL/PL ATELE T WBC 7.8 x10e3 /uL 3.4-10 .8 Not Available [facility] ([facility]) [address] [place], [address], 08/31/2023 20:39:24 08/25/19 24 08/26/2023 CBC WITH DIFFE RENTI AL/PL ATELE T RBC 4.40 x10e6 /uL 3.77-5 .28 Not Available [facility] ([facility]) [address] [place], [address], 08/31/2023 20:39:24 08/25/19 24 08/26/2023 CBC WITH DIFFE RENTI AL/PL ATELE T hemoglobin 10.6 g/dL 11.1-1 5.9 below low normal Not Available [facility] ([facility]) [address] [place], [address], 08/31/2023 20:39:24 08/25/19 24 08/26/2023 CBC WITH DIFFE RENTI AL/PL ATELE T hematocrit 34.5 % 34.0-4 6.6 Not Available [facility] ([facility]) [address] [place], [address], 08/31/2023 20:39:24 08/25/19 24 08/26/2023 CBC WITH DIFFE RENTI AL/PL ATELE T MCV 78 fL 79-97 below low normal Not Available [facility] ([facility]) [address] [facility], [place], [address], 08/31/2023 20:39:24 08/25/19 24 08/26/2023 CBC WITH DIFFE RENTI AL/PL ATELE T MCH 24.1 pg 26.6-3 3.0 below low normal Not Available [facility] ([facility]) [address] [place], [address], 08/31/2023 20:39:24 08/25/19 24 08/26/2023 CBC WITH DIFFE RENTI AL/PL ATELE T MCHC 30.7 g/dL 31.5-3 5.7 below low normal Not Available [facility] ([facility]) [address] [place], [address], 08/31/2023 20:39:24 08/25/19 24 08/26/2023 CBC WITH DIFFE RENTI AL/PL ATELE T RDW 16.1 % 11.7-1 5.4 above high normal Not Available [facility] ([facility]) [address] [place], [address], 08/31/2023 20:39:24 08/25/19 24 08/26/2023 CBC WITH DIFFE RENTI AL/PL ATELE T platelets 263 x10e3 /uL 150-45 0 Not Available [facility] ([facility]) [address] [facility], [place], [address], 08/31/2023 20:39:24 08/25/19 24 08/26/2023 CBC WITH DIFFE RENTI AL/PL ATELE T neutrophils 48 % not estab. Not Available [facility] ([facility]) [address] [facility], [place], [address], 08/31/2023 20:39:24 08/25/19 24 08/26/2023 CBC WITH DIFFE RENTI AL/PL ATELE T lymphs 30 % not estab. Not Available [facility] ([facility]) [address] [facility], [place], [address], 08/31/2023 20:39:24 08/25/19 24 08/26/2023 CBC WITH DIFFE RENTI AL/PL ATELE T monocytes 7 % not estab. Not Available [facility] ([facility]) [address] [facility], [place], [address], 08/31/2023 20:39:24 08/25/19 24 08/26/2023 CBC WITH DIFFE RENTI AL/PL ATELE T eos 14 % not estab. Not Available [facility] ([facility]) [address] [facility], [place], [address], 08/31/2023 20:39:24 08/25/19 24 08/26/2023 CBC WITH DIFFE RENTI AL/PL ATELE T basos 1 % not estab. 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 0 Not Available [facility] ([facility]) [address] [facility], [place], [address], 08/31/2023 20:39:24 08/25/19 24 08/26/2023 CBC WITH DIFFE RENTI AL/PL ATELE T lymphs (absolute) 2.3 x10e3 /uL 0.7-3. 1 Not Available [facility] ([facility]) [address] [place], [address], 08/31/2023 20:39:24 08/25/19 24 08/26/2023 CBC WITH DIFFE RENTI AL/PL ATELE T monocytes(ab solute) 0.5 x10e3 /uL 0.1-0. 9 Not Available [facility] ([facility]) [address] [place], [address], 08/31/2023 20:39:24 08/25/19 24 08/26/2023 CBC WITH DIFFE RENTI AL/PL ATELE T eos (absolute) 1.1 x10e3 /uL 0.0-0. 4 above high normal Not Available [facility] ([facility]) [address] [place], [address], 08/31/2023 20:39:24 08/25/19 24 08/26/2023 CBC WITH DIFFE RENTI AL/PL ATELE T baso (absolute) 0.1 x10e3 /uL 0.0-0. 2 Not Available [facility] ([facility]) [address] [place], [address], 08/31/2023 20:39:24 08/25/19 24 08/26/2023 CBC WITH DIFFE RENTI AL/PL ATELE T immature granulocytes 0 % not estab. Not Available [facility] ([facility]) [address] [facility], [place], [address], 08/31/2023 20:39:24 08/25/19 24 08/26/2023 CBC WITH DIFFE RENTI AL/PL ATELE T immature grans (abs) 0.0 x10e3 /uL 0.0-0. 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 METAB OLIC PANEL (14) glucose 109 mg/dL 70-99 above high normal Not Available [facility] ([facility]) [address] [facility], [place], [address], 08/31/2023 20:39:25 08/25/19 24 08/26/2023 COMP. METAB OLIC PANEL (14) BUN 10 mg/dL 6-20 Not Available [facility] ([facility]) [address] [facility], [place], [address], 08/31/2023 20:39:25 08/25/19 24 08/26/2023 COMP. METAB OLIC PANEL (14) creatinine 0.92 mg/dL 0.57-1 .00 Not Available [facility] ([facility]) [address] [place], [address], 08/31/2023 20:39:25 08/25/19 24 08/26/2023 COMP. METAB OLIC PANEL (14) eGFR 81 mL/mi n/1.7 3 >59 Not Available [facility] ([facility]) [address] [facility], [place], [address], 08/31/2023 20:39:25 08/25/19 24 08/26/2023 COMP. METAB OLIC PANEL (14) BUN/creatini ne ratio 11 9-23 Not Available [facility] ([facility]) [address] [facility], [place], [address], 08/31/2023 20:39:25 08/25/19 24 08/26/2023 COMP. METAB OLIC PANEL (14) sodium 144 mmol/ L 134-14 4 Not Available [facility] ([facility]) [address] [facility], [place], [address], 08/31/2023 20:39:25 08/25/19 24 08/26/2023 COMP. METAB OLIC PANEL (14) potassium 4.2 mmol/ L 3.5-5. 2 Not Available [facility] ([facility]) [address] [facility], [place], [address], 08/31/2023 20:39:25 08/25/19 24 08/26/2023 COMP. METAB OLIC PANEL (14) chloride 103 mmol/ L 96-106 Not Available [facility] ([facility]) [address] [facility], [place], [address], 08/31/2023 20:39:25 08/25/19 24 08/26/2023 COMP. METAB OLIC PANEL (14) carbon dioxide, total 22 mmol/ L 20-29 Not Available [facility] ([facility]) [address] [facility], [place], [address], 08/31/2023 20:39:25 08/25/19 24 08/26/2023 COMP. METAB OLIC PANEL (14) calcium 9.1 mg/dL 8.7-10 .2 Not Available [facility] ([facility]) [address] [facility], [place], [address], 08/31/2023 20:39:25 08/25/19 24 08/26/2023 COMP. METAB OLIC PANEL (14) protein, total 7.1 g/dL 6.0-8. 5 Not Available [facility] ([facility]) [address] [facility], [place], [address], 08/31/2023 20:39:25 08/25/19 24 08/26/2023 COMP. METAB OLIC PANEL (14) albumin 4.3 g/dL 3.9-4. 9 Not Available [facility] ([facility]) [address] [facility], [place], [address], 08/31/2023 20:39:25 08/25/19 24 08/26/2023 COMP. METAB OLIC PANEL (14) globulin, total 2.8 g/dL 1.5-4. 5 Not Available [facility] ([facility]) [address] [place], [address], 08/31/2023 20:39:25 08/25/19 24 08/26/2023 COMP. METAB OLIC PANEL (14) A/G ratio 1.5 1.2-2. 2 Not Available [facility] ([facility]) [address] [place], [address], 08/31/2023 20:39:25 08/25/19 24 08/26/2023 COMP. METAB OLIC PANEL (14) bilirubin, total 0.2 mg/dL 0.0-1. 2 Not Available [facility] ([facility]) [address] [place], [address], 08/31/2023 20:39:25 08/25/19 24 08/26/2023 COMP. METAB OLIC PANEL (14) alkaline phosphatase 116 IU/L 44-121 Not Available [facility] ([facility]) [address] [place], [address], 08/31/2023 20:39:25 08/25/19 24 08/26/2023 COMP. METAB OLIC PANEL (14) AST (SGOT) 22 IU/L 0-40 Not Available [facility] ([facility]) [address] [place], [address], 08/31/2023 20:39:25 08/25/19 24 08/26/2023 COMP. METAB OLIC PANEL (14) ALT (SGPT) 12 IU/L 0-32 Not Available [facility] ([facility]) [address] [place], [address], 08/31/2023 20:39:25 08/25/19 24 08/30/2023 VITAM IN E vitamin E(alpha tocopherol) 8.0 mg/L 5.9-19 .4 Not Available [facility] ([facility]) [address] [place], [address], 08/31/2023 20:39:26 08/25/19 24 08/30/2023 VITAM IN [...] in E defic ient. Not Available [facility] ([facility]) [address] [place], [address], 08/31/2023 20:39:26 08/25/19 24 08/26/2023 FOLAT E (FOLI C ACID) , SERUM folate (folic acid), serum 13.0 NG/mL >3.0 A serum folat e francia ntrat ion of less than 3.1 ng/mL is consi dered to repre sent clini omar defic iency . Not Available [facility] ([facility]) [address] [facility], [place], [address], 08/31/2023 20:39:27 08/25/19 24 08/30/2023 VITAM IN [...] Drug Admin istra tion. Not Available [facility] ([facility]) [address] [facility], [place], [address], 08/31/2023 20:39:28 08/25/19 24 08/26/2023 VITAM IN [...] Ada vieira [place]: The Natio nal [facility] Press . 2. Luis Carlos xiao MF, Ryan lauren [place], Belkis off-F errar i NEVAREZ, et al. Evalu ation , treat ment, and preve ntion of vitam in D defic iency : an Endoc rine Socie ty clini omar pract ice guide line. JCEM. 2010; 96(7) :1911 -30. Not Available [facility] ([facility]) [address] [facility], [place], [address], 08/31/2023 20:39:28 08/25/19 24 08/29/2023 VITAM IN B1 (THIA MINE) , BLOOD vit. B1, whole blood 104.3 nmol/ L 66.5-2 00.0 Not Available [facility] ([facility]) [address] [facility] [place], [address], 08/31/2023 20:39:29 08/25/19 24 08/31/2023 METHY LMALO YVETTE ACID, SERUM methylmaloni c acid, serum 327 nmol/ L 0-378 Not Available [facility] ([facility]) [address] [facility], [place], [address], 08/31/2023 20:39:30 08/25/19 24 08/27/2023 COPPE R, SERUM OR PLASM A copper, serum or plasma 146 ug/dL 80-158 Detec tion Limit = 5 Not Available [facility] ([facility]) [address] [facility] [place], [address], 08/31/2023 20:39:31 08/25/19 24 08/27/2023 ZINC, PLASM A OR SERUM zinc, plasma or serum 73 ug/dL 44-115 Detec tion Limit = 5 Not Available [facility] ([facility]) [address] [facility] [place], [address], 08/31/2023 20:39:32 08/25/19 24 08/26/2023 PREAL BUMIN prealbumin 12 mg/dL 14-35 below low normal Not Available [facility] ([facility]) [address] [facility] [place], [address], 08/31/2023 20:39:32 08/25/19 24 08/28/2023 SELEN IUM, BLOOD selenium, blood 161 ug/L 100-34 0 Detec tion Limit = 10 Not Available [facility] ([facility]) [address], [place], [address], 08/31/2023 20:39:33 Result Notes None recorded. Problems Name Problem SNOMED Code Status Onset Date Resolution Date Notes Provider Name and Address Organization Details Recorded Time Anxiety 07513779 Active 2023 Carline Beardswort h null, [place] - [place] - [place] & [place] 14:56:25 Irritable bowel syndrome 06459895 Active 2023 [place] Beardswort h [place], [place] 14:56:37 Malignant neoplastic disease 363724148 Active 2023 [place] Beardswort h [place], [place] 14:56:45 Fibromyalg ia 918322089 Active 2023 [place] Beard[place], [place] 14:57:44 Migraine 48515055 Active 2023 [place] Beardswort [place] 14:57:51 Hyperlipid emia 63092156 Active 2023 [place] Beardswort h [place], [place] 4 14:57:57 Depressive disorder 90092633 Active 2023 [place] Beardswort h [place], [place] 4 14:58:03 Sleep apnea 41318513 Active 2023 [place] Beardswort [place], [place] 14:58:21 Arthritis 6225166 Active 2023 [place] Beard[place] 14:58:26 Osteoporos is 25950592 Active 2023 [place] Beard[place] 4 14:58:35 Gastroesop hageal reflux disease 527264622 Active 2023 [place] Beard[place] 4 14:58:40 Chronic migraine without aura 7991923864253 05 Active 2023 Milli Cornejo [place], [place] 4 17:49:42 Episodic migraine 6945626806363 06 Active 2023 Milli Cornejo [place], [place] 4 17:49:50 Headache 91365644 Active 2023 Milli Cornejo [place] 4 17:49:57 Chronic intractabl e migraine without aura 9074945908291 05 Active 2021 Vivi Velez, [address] [facility], [place], [address] , [place] [facility] [place] 2 10:20:51 History of bypass of stomach 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 Active 2022 GIA Wright [address], [place], [address] , [place] - [place] & [place] 3 13:58:14 Iron deficiency 13746409 Active 2022 GIA Wright [address], [place], [address] , [place] [facility] & [place] 3 13:58:16 Vitamin D deficiency 24432744 Active 2022 GIA Wright [address], [place], [address] , [place] - [place] & [place] 3 13:58:17 Gastrointe stinal hemorrhage 33067118 Active Breerobyn Bautista null, [place] 10:30:39 Problem Notes Documentation Provider Name and Address Organization Details Recorded Time Discharge Summary : Consult History and Physical [facility] Name Alexei Castrejon Date of Service 0742 [id number] (F) Attending GRACIE COLE Admitted [id number] Discharged Primary JESSICA ROOT - Addendum I [...] signed by CALEB DE LA ROSA on 7713 Chief Complaint blood in vomit History of [...] a day. She was last seen at [facility] yesterday and got 1 L of IV [...] 1 of 6 Consult History and Physical [facility] Name Alexei Castrejon Date of Service 0742 [id number] (F) Attending GRACIE COLE Admitted [id number] Discharged Primary JESSICA ROOT - Past Surgical [...] last night. 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 Alert and oriented x 4. 3 of 6 Consult History and Physical [facility] Name Alexei Castrejon Date of Service 0742 [id number] (F) Attending GRACIE COLE Admitted [id number] Discharged Primary JESSICA ROOT - Head: Normocephalic, [...] >60 CALCIUM 7.9 (L) MG 1.7 (L) 239 Hematology WBC 7.7 RBCS 3.3 (L) HGB 9.3 (L) HCT 28.9 (L) MCV 87.3 MCH 28.1 MCHC 32.2 RDW 13.5 PLT S 210 MPV 10.1 (H) NEUT% 44.4 LYMPH% 45.1 MONO% 6.8 EOS% 3.1 (H) BASO% 0.5 IG% 0.1 NRBC% 0.0 NEUT# 3.4 LYMPH# 3.5 (H) MONO# 0.5 EOS# 0.2 BASO# 0.0 IG# 0.01 NRBC# 0.[address] Scanning C6CABP 0 Blood Bank STATUS Transfused COMPAT Compatible UNIT TYP A Pos UNIT # [id number] DT/TM [id number] PRD CODE [id number] PROD ID Red Blood Cells VOLUME 350 SPEC EXP [id number] Hematology HGB 8.4 (L) HCT 25.3 [...] 4 of 6 Consult History and Physical [facility] Name Alexei Castrejon Date of Service 0742 [id number] (F) Attending GRACIE COLE Admitted [id number] Discharged Primary JESSICA ROOT - Coagulation PT 10.9 PTT 25.6 INR 1.0 Imaging Results [address] [place] [address] Name: ALEXEI CASTREJON Exam Date: 01/28/2024 : 1985 Age 38 years Gender: F Physician: DAMON LAZO Facility: [facility] Facility HSV: Inpatient Exam: CT ABD [...] 5 of 6 Consult History and Physical [facility] Name Alexei Castrejon Date of Service 0742 [id number] (F) Attending GRACIE COLE Admitted [id number] Discharged Primary JESSICA ROOT - Findings are compatible with a gastrojejunostomy marginal ulcer. Surgical consult is recommended. Reviewed, Interpreted and Dictated by Kyle Marie MD Transcribed by Sayda Rosas Authenticated and EASTERN Dictated By: Kyle Marie Transcribed By: Transcribed On: 01/29/2024 12:13 AM Electronically signed by: Kyle Marie 01/29/2024 Thank you for referring ALEXEI CASTREJON to [facility]. Problem List Gastrointestinal hemorrhage Assessment/Plan Will relay this information on to Dr. Velez and Dr. Landaverde. Assessment and plan Patient doing well. Encouraged ambulation and use of incentive spirometer frequently.. Follow-up in office i once discharged. Electronically signed by BERNARD BARR APRN on 1106 I hereby attest the note that was written on this patient accurately reflects the notations made when patient was examined. Electronically signed by CALEB DE LA ROSA on 8353 6 of 6 CC'ed Logic: Ordering Provider: GIA Hadley [address] [facility], [place], [address], ANDREY - DONNANT - [place] 02/16/2024 13:06:51 Procedures Surgical History Date Name Laterality Status Provider Name and Address Organization Details Recorded Time 2023 ESOPHAGOGASTRODUODENOSCOPY (SURG) completed Kelli BALDERAS - [place] 11:31:36 2020 repair of tendo achilles completed Bree BALDERAS - [facility] [place] 2 16:28:15 03/23/ 2021 Gastric Bypass completed Bree BALDERAS - [facility] & [place] 2 16:27:48 2018 ankle reconstruction completed Bree BALDERAS - [facility] & [place] 2 16:27:01 2015 Lumbar Spine Surgery completed Bree BALDERAS - [facility] & [place] 2 16:21:33 EGD completed Jan Maldonado-Bec lashon BALDERAS - [facility] & [place] 3 10:36:17 Total hysterectomy completed Bree BALDERAS - [facility] & [place] 2 16:20:22 partial fasciectomy of plantar fascia completed Bree BALDERAS - [facility] & [place] 2 16:20:47 Knee Surgery completed Bree BALDERAS - [facility] & [place] 2 16:21:04 exploratory laparotomy completed Earlene BALDERAS - [facility] & [place] 2 16:21:59 Transfusion bld/bld compnt completed Bree BALDERAS - [facility] & [place] 2 16:26:38 Cholecystectomy completed Bree Allena ANDREY - [facility] & [place] 2 10:18:00 Imaging Results None recorded. Procedure Notes None recorded. Medical Equipment None Reported. Allergies Allergen ID Allergen Name Allergen Category Reaction Reaction Severity Criticality Documentation Date Start Date Code Code System Note Provider Name and Address Organization Details Recorded Time 363909 Non-stero idal anti-infl ammatory agent (product) medicatio n Not available Not available Not available 02/26/2024 36104 005 SNOMED Other react ions and sever ities : 'Adve rse react ion to subst ance' . Bree mcelroy, ANDREY - [facility] & [place] 4 10:32:00 728101 hydromorp eladio medicatio n rash severe Not available 02/26/2024 3423 RxNorm Bree Michele mcelroy, ANDREY - [facility] & [place] 4 10:32:00 035580 ketorolac medicatio n rash Not available Not available 02/26/2024 66095 RxNorm Bree mcelroy, ANDREY - [facility] & [place] 4 10:32:00 903845 Milk (substanc e) food,medi cation Not available Not available Not available 06/23/2024 12701 002 SNOMED Carline mcelroy, ANDREY - [facility] & [place] 4 14:55:40 Medications [...] Updated DateTime 4 175.26 cm 25.7 kg/m2 73864.0 7 g 90 /min 98.3 [degF] 110 mm[Hg] 70 mm[Hg] Abby Holcomb [facility] & [place] 4 14:45:58 Date Recorded Body height Body mass index (BMI) Body weight Heart rate Systolic blood pressure Diastolic blood pressure Provider Name and Address Organization Details Last Updated DateTime 4 175.26 cm 26.2 kg/m2 74609.5 7 g 80 /min 107 mm[Hg] 79 mm[Hg] Bree Bautista [facility] & [place] 4 11:29:00 Date Recorded Body height Body mass index (BMI) Body weight Heart rate Systolic blood pressure Diastolic blood pressure Provider Name and Address Organization Details Last Updated DateTime 4 175.26 cm 24.6 kg/m2 80166.1 3 g 81 /min 122 mm[Hg] 80 mm[Hg] Bree BALDERAS - [facility] & [place] 4 10:10:48 Date Recorded Body height Body mass index (BMI) Body weight Heart rate Systolic blood pressure Diastolic blood pressure Provider Name and Address Organization Details Last Updated DateTime 4 175.26 cm 20.7 kg/m2 67505.9 3 g 75 /min 110 mm[Hg] 68 mm[Hg] Bree BALDERAS - [facility] & [place] 4 10:38:55 Date Recorded Body height Body mass index (BMI) Body weight Body temperature Oxygen saturation Oxygen saturation in Arterial blood by Pulse oximetry Heart rate Systolic blood pressure Diastolic blood pressure Provider Name and Address Organization Details Last Updated DateTime 4 175.26 cm 19.9 kg/m2 63067.9 7 g 97.1 [degF] 99 % 99 % 83 /min 121 mm[Hg] 80 mm[Hg] [facility] ANDREY - NT [facility] & [place] 4 14:54:56 Social History Question Answer Notes LastModified by Organizat ion Details LastModified Time Tobacco Smoking Status Former Smoker no tobacco use x 7yr, currently daily mariuana use GIA Wright [address] [facility], [place], [address], ANDREY [facility] & [place] 09/10/2022 13:43:16 Do [...] anxious, or unable to sleep at night)? [id number] Information not available 08/29/2022 Family History Relationship Description Onset Age of this Age Resolved Age Notes LastModified by Organization Details LastModified Time Mother Malignant tumor of breast [email or web address] Not available 02/2022 08:21:12 Mother Allergy pt. added direct ly (05/22) [email or web address] Not available 05/22/2022 12:36:00 Father Malignant tumor of kidney [email or web address] Not available 02/2022 08:21:12 Father Disorder of [...] Problems Y Reflux/GERD Y High Cholesterol Y Psychiatric/Mental Health Condition Y Heart Disease Rheumatoid Arthritis Y Headaches Y Fibromyalgia Y Gynecological History Statement/Question Response Abnormal Pap N Sexually Active? N Obstetrics History GPAL:G 0 P 0 0 0 0 Immunizations Vaccine Type Date Status Note Provider Nam e and Address Organization Details Recorded Time influenza, unspecified formulation 06/03/2023 completed Abby Zhang [place], [place] - [facility] [place] 08/25/2023 14:44:46 Past Encounters Encounter ID Performer Location Encounter Start Date Encounter Closed Date Diagnosis/Indication Diagnosis SNOMED-CT Code Diagnosis ICD10 Code Diagnosis Note [id number] Vivi DO SHANNA [facility] [address] [facility],[address] [place] [address] 05/20/2022 10:08:09 05/20/2022 10:40:41 Chronic intractable migraine without aura [id number] 99400 G43.719 She has done very well on the combinatio n of botox and ajovy but due to insurance change can no longer stay on this dual therapies. She will discontinu e the ajovy and I will have the office seek a new approval to continue with her botox treatments .In the meantime she is asked to keep a headache log. [id number] Vivi VelezDO SHANNA [facility] [address] [facility],[address] [place] [address] 05/23/2022 08:19:26 05/23/2022 08:47:35 Chronic intractable migraine without aura [id number] 94382 G43.719 [id number] [facility] [address] [facility],[address] [place] [address] 08/29/2022 08:21:08 08/29/2022 08:56:01 Chronic intractable migraine without aura [id number] 12094 G43.719 [id number] GIA Wright [facility] [address] [facility] [address] [place] [address] 09/10/2022 13:07:45 09/10/2022 14:53:51 Gastrojejunal ulcer 22255358 K28.[address] Fitz Velez [...] c ulcer. History of bypass of stomach 202553547 Z98.84 Long discussion today regarding need for routine follow-up and vitamin checks. patient voices understand ing of needed routine follow-up and agrees to be compliant with this. We are checking full bariatric panel today. Iron deficiency 07884273 E61.1 Vitamin D deficiency 347 63432 E55.9 History of gastrectomy 443617596 Z90.3 Patient is status post bariatric surgery and at increased risk for vitamin deficienci es and malnutriti on. Bariatric vitamin panel ordered today. Patient will be contacted to correct any vitamin deficienci es. [id number] Vivi Velez DO [facility] Neu[facility] [address] [facility],[address] [place] [address] 11/28/2022 08:14:33 11/28/2022 08:55:55 Chronic intractable migraine without aura 5231442656 62329 G43.719 Chronic condition that is stable. She is given Ajovy samples today. [id number] Vivi DO Agustin [facility] [address] [facility],[address] [place] [address] 02/27/2023 11:05:14 02/27/2023 11:33:40 Chronic intractable migraine without aura 2204041702 24549 G43.719 [id number] Vivi DO Agustin [facility] [address] [facility],[address] [place] [address] 05/29/2023 11:13:34 05/29/2023 11:43:52 Chronic intractable migraine without aura 2517619630 60131 G43.719 [id number] [facility] [address] [facility] [address] [place] [address] 08/25/2023 14:29:17 08/25/2023 15:27:36 Vomiting 528944813 R11.10 Discussed previous endoscopy September 2022 showing [...] GI have been resulted. Nutritiona lly compromised 974725495 E63.9 Discussed need for increased nutritiona l intake. Advised patient attempt p.o. stage I/2 as tolerated with focus on 70 g of protein and a 1000 calories. We will have dietitian meet with patient today for additional dietary support. History of gastrectomy 005011168 Z90.3 Patient is status post bariatric surgery and at increased risk for vitamin deficienci es and malnutriti on. Bariatric vitamin panel ordered today. Patient will be contacted to correct any vitamin deficienci es. Vitamin D deficiency 347 81257 E55.9 Marijuana user 723573625 F12.90 [id number] RUSSELL BREWSTER BS, RDN, LD [facility] [address] [facility] [address] [place] [address] 08/25/2023 15:31:07 08/25/2023 16:02:52 History of bypass of stomach 353457252 Z98.84 EGD ordered today, hx of jejunal anastomoti c ulcer [id number] Vivi Velez DO [facility] Neurology [address] [place] [address] 08/28/2023 11:21:49 08/28/2023 11:48:46 Chronic intractable migraine without aura 6618886836 62549 G43.504 [id number] Vivi Velez DO [facility] [address] [facility],[address] [place] [address] 11/27/2023 10:00:13 11/27/2023 10:35:46 Chronic intractable migraine without aura 0392846128 23538 G43.719 She is given a sample of Tiffany Diane quantity: 1, Lot #: [id number], Exp: 06/17/2025 [id number] Vivi VelezDO ButcherZ [facility] [address] [place] [address] 02/26/2024 10:25:30 02/26/2024 11:08:39 Chronic intractable migraine without aura 4361975585 15307 G43.719 She is given a sample of Souravovy Fayy quantity: 2, Lot #: [id number] , Exp: 12/2025 [id number] Ajit Grande MD [facility] [address] [place] [address] 06/23/2024 14:31:23 06/23/2024 14:58:43 Chronic migraine without aura 5161141271 59109 G43.709 - It appears that the intensity [...] patient for Botox injections . Episodic migraine 509973 8909 86618 G43.C1 Headache 66838767 R51.9 Health Concerns Section Related Observation LastModified by Organization Detai ls LastModified Time None Recorded Concern Status LastModified by Organization Details LastModified Time None Recorded Advance Directives Directive N: Payers Insurance Date Sequence Insurance Name Policy Number Policy Vaughn Covered Member ID Vaughn Member ID Guarantor Name 05/15/2022 1 [employer] - [employer] - [place] ( - PPO) Denilson Castrejon [id number] Alexei Castrejon 06/23/2024 1 FOR LIFE () Sandi Castrejon [id number] Alexei Castrejon 07/22/2024 1 [place] - [employer] [place] ( - PPO) Denilson Castrejon [id number] Alexei Castrejon 07/19/2024 2 [facility] (MEDICAID HMO) Alexei Castrejon [id number] Alexei Castrejon 05/20/2022 3 EAST - [employer] () Denilson Castrejon [id number] Alexei Castrejon 06/25/2022 1 UNSPECIFIED REMIT PAYOR Alexei Castrejon 06/23/2024 1 [employer] - [employer] () Alexei Castrejon [id number] Alexei Castrejon 06/10/2023 1 FOR LIFE ( - MEDICARE SUPPLEMENT) Denilson Castrejon [id number] Alexei Castrejon 03/16/2024 1 UNSPECIFIED REMIT PAYOR Alexei Castrejon 07/09/2020 SLIDING FEE SCHEDULE - DISCOUNT Alexei Castrejon 07/09/2020 SLIDING FEE SCHEDULE - DISCOUNT Alexei Castrejon 10/03/2021 1 EAST - [employer] () Denilson Castrejon [id number] Alexei Castrejon 06/23/2024 1 FOR LIFE () Alexei Castrejon [id number] Alexei Castrejon Notes Date Note Type Note [...] Last labs approximately 2 weeks ago at [facility]. Past history: March 06 upper [...] office since GIA Wright [address], [place], [address], [facility] & [place] 08/25/2023 15:42:54 08/25/2023 text/html RDN met w/ Alexei Castrejon who is s/p RNY (surgery date 2020) following their office visit regarding concern for recurring anastomotic ulcer. RDN reviewed diet stages 1 and 2 and advised ways to manage nausea. Pt expressed concerns that she is anorexic and also disclosed some concerns with memory issues. RDN scheduled pt to see psych in [place] on Thursday to address these concerns. [...] oz/dSource: water RUSSELL BREWSTER BS, RDN, LD [address], [place], [address], [facility] & [place] 08/25/2023 16:37:41 08/28/2023 text/html Vikash [...] a migraine today. Vivi Velez, DO [address] [facility], [place], [address], [place] [facility] [place] 08/28/2023 11:53:09 11/27/2023 text/html Vikash [...] a migraine today. Vivi Velez, DO [address] [facility], [place], [address], [place] [facility] [place] 11/27/2023 10:28:31 02/26/2024 text/html Alexei [...] a migraine today. Vivi Velez, DO [address] [facility], [place], [address], [facility] - [place] 02/26/2024 12:14:39 06/23/2024 text/html Ms. Castrejon was [...] none Imaging/Studies: none Ajit Grande MD [address], [place], [address], [facility] & [place] 06/24/2024 09:49:17 OBGyn Episode No OBEpisode recorded.
--- OUTSIDE RECORDS SUMMARY | 2025-02-06 13:39 | XMS_ITS | Clinical Summary ---
Author Organization [facility] [employer] Address [address] [place] [address] Care Team Providers Care City Supervisor Name Role Phone Luciano Falk MD Primary Care Provider [phone] Allergies No known active allergies Social History [...] Date Reese rded Speak language other than [place] at home Not on file 09/04/2023 Want [...] patient's age to complete this topic Insurance [facility] [address] [place] [id number] [facility] [employer] [facility] Care Teams City Supervisor Relationship Specialty Start Date End Date Luciano Falk MD [address] [place] [address] [place] [address] PCP - General Adolescent Medicine 05/09/23
--- OUTSIDE RECORDS SUMMARY | 2025-02-06 13:40 | XMS_ITS | Clinical Summary ---
Author Organization [facility] Address [address] [place] [address] Care Team Providers Care Skelp Processor Name Role Phone Luciano Falk MD Primary Care Provider + [phone] Allergies Active Allergy Reactions Criticality Noted Date [...] times a day. Active opioid or non-baclofenIn dications:Law Reporter maritza Back pain 1 each by Intrathecal [...] How often do you attend chur or zoroastrianism services? Never 04/21/2023 Do you belong to any clubs o r organizations such as faith groups, unions, fraternal or athletic groups, or [...] Recorded Patient Health Questionnaire-2 Score 4 04/21/2023 [facility] [place] of Occupat ional Health - Occupational Stress [...] place to sleep or slept in a prison (including now)? 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 No confirmatory testing is required. Blood Venous blood specimen / Unknown Venipuncture / Unknown 04/20/2023 11:18 PM EDT 04/20/2023 11:20 PM EDT us Kate B Idris MANAGER ACCOUNT MANAGEMENT LAB BLOOD ORDERABLES Lamar l Result [facility] [address] [place] [address] * Hepatitis C Antibody - ED (04/20/2023 11:18 PM EDT) Hepatitis C Antibody Negative Negative 04/20/2023 11:49 PM EDT [facility]ALTH[facility] Blood Venous blood specimen / Unknown Venipuncture / Unknown 04/20/2023 11:18 PM EDT 04/20/2023 11:20 PM EDT us Kate Grace Idris MANAGER ACCOUNT MANAGEMENT LAB BLOOD ORDERABLES Lamar l [facility] [address] [place] [address] from Last 3 Months or Most Recently Relevant to Health Maintenance Insurance [employer] MEDICAID [facility] Advance Directives Documents on File Type Date Recorded Patient 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 Yes * Full Code Date Activated Date Inactivated Comments 04/21/2023 12:10 AM 04/24/2023 4:04 PM Question Answer Comments Patient has decision-making capacity? Yes Care Teams Skelp Processor Relationship Specialty Start Date End Date Luciano Falk MD [address] [place] [address] PCP - General Internal Medicine 04/20/23
--- NOTE | 2025-02-06 13:56 | EXP.PAIN.SOA ---
[facility] Disclaimer: The information contained in this section may have been updated after the patient was seen, as this information can be updated by other users. Medical History (Updated 01/28/25 @ 22:40 by Ernesto Bolton MD) Chronic pain Encounter for routine gynecological examination Chronic upper abdominal pain Nausea vomiting and diarrhea Anxiety Psychiatric care Severe anxiety Peptic ulcer disease Edema Chronic low back pain Right shoulder pain Dizziness Atypical chest pain Nausea and vomiting Occult blood positive stool Atypical angina Diarrhea Abnormal result of cardiovascular function study Encounter for pre-operative cardiovascular clearance Abdominal pain Flu vaccine need Community acquired pneumonia Community acquired bacterial pneumonia Synovitis of right foot Morbid obesity with BMI of 40.0-44.9, adult Multiple joint pain Synovitis of left foot Metatarsus adductus of both feet Hypokalemia SHAUN (acute kidney injury) Class 3 severe obesity due to excess calories in adult Gastroenteritis Left ankle instability Metatarsus adductus of left foot Gastrocnemius equinus of left lower extremity Posterior tibial tendon dysfunction (PTTD) of left lower extremity Obesity Leukocytosis Acute renal insufficiency Hypokalemia Near syncope Gastroenteritis History of DVT (deep vein thrombosis) Palpitations Dizziness Ex-smoker Preoperative clearance Dyspnea Bilateral hip pain Chest pain Chest pain Pre-syncope Acute chest pain Acute upper GI bleed Headache Abdominal pain Exposure to hepatitis C Head ache Chronic nausea Chest pain Diarrhea Chest pain, non-cardiac Chronic headaches Right upper quadrant abdominal pain Tachycardia Shortness of breath Syncope LEONORA (obstructive sleep apnea) Elevated left ventricular end-diastolic pressure (LVEDP) Edema History of left heart catheterization SVT (supraventricular tachycardia) Pulmonary embolism Osteoarthritis Migraine HTN (hypertension) HLD (hyperlipidemia) Heart murmur GERD (gastroesophageal reflux disease) DVT (deep venous thrombosis) Afib Asthma Arrhythmia Anxiety History of pulmonary embolism Surgical History History of total abdominal hysterectomy Status post foot surgery History of bariatric surgery History of exploratory laparotomy History of cholecystectomy History of lumpectomy of left breast H/O knee surgery History of esophageal surgery H/O foot surgery Previous back surgery Family History Mother Family history of cancer Grandmother Family history of cancer Other Family history of hypertension Kidney disease Social History Smoking Status: Current some day smoker tobacco type: cigarettes packs per day: 4 second hand exposure: No alcohol intake: never substance use type: marijuana current occupational status: other Travel in the last 8 weeks?: None household members: spouse housing: house number of children: 0 current occupational exposures/hazards: No caffeine: No PM Subjective & Objective Subjective Subjective:: Patient is a pleasant 39-year-old female who presents today for worsening headaches and migraines. Today she rates her pain a 6 out of 10. She denies any new falls or injuries. She does state that she feels like her last Botox injections have officially worn off and she would like to get scheduled back. Patient does say that it did seem to really help and that she went from having daily headaches to 3 headaches a month following the Botox injections. Patient states it did really help in combination with her intrathecal pump that helps treat her chronic back pain. Patient denies any side effects. Her Dinesh has been reviewed and is appropriate. Review of Systems: General: No recent weight changes, no fever, no sleep disturbances Respiratory: No cough, no shortness of air, no recurring pulmonary infections Cardiovascular/peripheral vascular: No chest pain, no palpitations, no edema, no shortness of breath Gastrointestinal: No new onset incontinence, normal bowel movements reported Genitourinary: No new onset incontinence Musculoskeletal: Headaches/migraines Psychiatric: [Normal mood/affect] Neurological: [Denies weakness in extremities], [denies balance issues] Pain at rest (0-10 scale): 6 Objective Objective:: Physical Exam: General: Alert and oriented x3, no acute distress, pleasant and cooperative Lungs: Respirations even and unlabored, symmetrical chest expansion Eyes: PERRL Musculoskeletal: Flexion and extension of cervical [spine] within normal limits Neurological: Speech clear, no gross sensory deficit Has patient had previous pain injection?: No Conservative treatment options previously tried: Home exercise plan Length of treatment: Longer than 12 weeks Meds Home Medications and Allergies Home Medications ?Medication ?Instructions ?Recorded ?Confirmed ?Type pregabalin 200 mg capsule 200 mg PO BID RLS 02/05/21 01/27/25 History hydroxyzine pamoate 50 mg capsule 50 mg PO Q4H PRN . 07/18/24 01/27/25 History quetiapine 100 mg tablet 100 mg PO HS 07/18/24 01/27/25 History linaclotide 145 mcg capsule 145 mcg PO DAILY #30 caps 08/31/24 01/27/25 Rx (Linzess) ferric carboxymaltose 50 mg 750 mg (15 mL) IV Q7D 2 doses 11/02/24 01/27/25 Rx iron/mL intravenous solution (Injectafer) lorazepam 1 mg tablet 1 mg PO BID PRN abdominal pain #60 12/05/24 01/27/25 Rx tabs estradiol 0.01% (0.1 mg/gram) 0.25 appful vaginal .twice weekly 01/10/25 01/27/25 Rx vaginal cream (Estrace) #42.5 grams esomeprazole magnesium 20 mg 20 mg PO DAILY 8 weeks #56 caps 01/28/25 Rx capsule,delayed release metoclopramide HCl 10 mg tablet 10 mg PO Q6H PRN nausea and 01/28/25 Rx (Reglan) vomiting #20 tabs New Prescriptions to Start Prescriptions: Allergies Allergy/AdvReac Type Severity Reaction Status Date / Time hydromorphone (From Dilaudid) Allergy Intermediate Unknown Verified 01/10/25 14:43 allergy reaction NSAIDS (Non-Steroidal Allergy Unknown Unknown Verified 01/10/25 14:43 Anti-Inflamma allergy reaction lactose AdvReac Mild Nausea Verified 01/10/25 14:43 cilantro Allergy Severe throat and Uncoded 01/10/25 14:43 tongue swells, hives on face Assessment and Plan *Assessment and plan (1) Migraine: Status: Acute Category: Medical Code(s): G43.909 - Migraine, unspecified, not intractable, without status migrainosus Plan I did review over risk and benefits of repeat Botox for her migraines injections. Patient would like to proceed forward with this plan of care. Patient will be scheduled for Botox injections. These will be done without fluoroscopic or ultrasound guidance. Patient has been instructed to contact the clinic with any concerns before the next appointment. Dr. Jung has reviewed this note and agrees with this plan of care. This note was dictated using voice recognition software and make contain errors or omissions. All injections are used with Lidocaine, Bupivacaine and dexamethasone. Occasionally urine drug screen is needed to verify patient's compliance with our office pain contract. This is ordered based off specific treatments related to chronic pain with the potential to abuse certain medications.
[2025-02-06 14:30] VITALS: BP 85/54; BP 91/56; PULSE 78; O2SAT 98; BMI 18.8
== END 2025-02-06 23:59 | disposition home or self-care (01) ==
LOC: SC.PAIN 13:33
PROVIDERS: PCP Nurse Practitioner Family; Visit Provider Nurse Practitioner Family
DX: G43.909 Migraine, unspecified, not intractable, without status migrainosus (principal)
CPT/HCPCS: 99212; G0463

== ENCOUNTER 2025-03-06 14:51 | Day surgery (SDC) | payer OTHER, SELFPAY ==
[2025-03-06 15:35] VITALS: BP 113/77; PULSE 76; RESP 18; O2SAT 100
[2025-03-06 15:42] VITALS: BP 104/70; PULSE 69; RESP 18; O2SAT 100; BMI 19.8
--- NOTE | 2025-03-06 15:46 | P.PCN_ITS ---
Procedure Date: 03/06/25 Time: 15:47 Anesthesiologist:: Karen Gracia APRN Complications:: None Pre-procedure Diagnosis:: Chronic migraines, headaches, chronic back pain Post-procedure Diagnosis:: Same Indications for Procedure:: Patient is a pleasant 39-year-old female who presents today for Botox injections for migraines. Today she rates her pain a 4 out of 10. She denies any new trauma or injury. Patient has been doing the Botox injections for over 11 years with effective improvement. Patient states where she has tried some many different medications and interventions and this was the only thing that seemed to make a difference on her chronic migraines and headaches. Patient states that she does notice when they start to wear off and that normally they do provide more than 50%. Patient denies any other changes. She is still doing well with her intrathecal pump. Her Dinesh has been reviewed and is appropriate. Physical Exam: General: Alert and oriented x3, no acute distress, pleasant and cooperative Lungs: Respirations even and unlabored, symmetrical chest expansion Eyes: PERRL Musculoskeletal: Flexion and extension of cervical [spine] somewhat guarded secondary to pain, [antalgic gait noted] Neurological: Speech clear, no gross sensory deficit Procedure Details:: Patient was taken to the procedure room and placed in a seated position. The area over injection sites was cleansed with alcohol pads. Onabotulinum toxin a at a dilution of 5 units per 0.1 mL (50 units per 1 mL) was injected via a 30- gauge by 0.5 inch disposable needle with the following muscles: 1. Left upper extremity surgeon?1 site, 5 units 2. Right core greater?1 site, 5 units 3. Procerus?1 site, 5 units 4. Frontalis?4 sites, 20 units 5. Left temporalis?4 sites, 20 units 6. Right temporalis?4 sites, 20 units 7. Left occipitalis?3 sites, 15 units 8. Right occipitalis?3 sites, 15 units 9. Left cervical paraspinous muscles?2 sites, 10 units 10. Right cervical paraspinous muscles?2 sites, 10 units 11. Left trapezius?3 sites, 15 units 12. Right trapezius?3 sites, 15 units Plan and Disposition:: Patient tolerated the procedure well with no complications. Patient is scheduled for her next intrathecal refill in March. We will follow-up at that appointment on the Botox injections efficacy. Patient agrees with this plan of care. We will plan on submitting for repeat Botox injections in 3 months. Patient has been instructed to contact the clinic with any concerns before the next appointment. Dr. Jung has reviewed this note and agrees with this plan of care. This note was dictated using voice recognition software and make contain errors or omissions. All injections are used with Lidocaine, Bupivacaine and dexamethasone. Occasionally urine drug screen is needed to verify patient's compliance with our office pain contract. This is ordered based off specific treatments related to chronic pain with the potential to abuse certain medications.
[2025-03-06] MEDS: SODIUM CHLORIDE 0.9% 10ML VIAL 20 ML IV (15:47)
[2025-03-06 15:48] VITALS: BP 113/77; PULSE 76; RESP 18; O2SAT 100
[2025-03-06] MEDS: BOTULINUM TOXIN TYPE A 100 UNIT/ML 155 UNIT IM (15:48)
[2025-03-06 16:16] VITALS: BP 117/76; PULSE 66; RESP 18; O2SAT 100
== END 2025-03-06 15:48 | disposition home or self-care (01) ==
PROVIDERS: PCP Nurse Practitioner Family; Visit Provider Nurse Practitioner Family
DX: G43.909 Migraine, unspecified, not intractable, without status migrainosus (principal); G89.28 Other chronic postprocedural pain; M54.9 Dorsalgia, unspecified; I48.91 Unspecified atrial fibrillation; F41.9 Anxiety disorder, unspecified; J45.909 Unspecified asthma, uncomplicated; E66.9 Obesity, unspecified; E78.5 Hyperlipidemia, unspecified; I10 Essential (primary) hypertension; E66.01 Morbid (severe) obesity due to excess calories; I47.10 Supraventricular tachycardia, unspecified; F17.210 Nicotine dependence, cigarettes, uncomplicated; Z88.5 Allergy status to narcotic agent; Z88.6 Allergy status to analgesic agent; Z88.8 Allergy status to other drugs, medicaments and biological substances; Z91.018 Allergy to other foods; Z79.899 Other long term (current) drug therapy
CPT/HCPCS: 64615; J0585

== ENCOUNTER 2025-03-28 11:55 | Emergency (ER) | payer OTHER, SELFPAY ==
[2025-03-28] VITALS (10 sets, daily range): BP systolic 91–137; BP diastolic 60–95; PULSE 66–79; RESP 18; TEMP 36.7–36.9; O2SAT 96–100; BMI 19.8
--- OUTSIDE RECORDS SUMMARY | 2025-03-28 12:10 | XMS_ITS | Continuity of Care Document ---
Author Name [facility] Organization [facility] Care Team Providers Care Assisted Living Associate Name Role Phone [facility] Unavailable Unavailable Problems [...] malignant neoplasm, unspecified Active 7 Condition DoD Other osteoporosis without current pathological fracture Active [...] therapeutic drug level monitoring Active Condition DoD FDC (current) use of anticoagulants Active Condition DoD Personal history of other venous thrombosis and embolism Active Condition DoD Adjustment disorder with anxiety Active Condition DoD Dietary counseling and surveillance Active Condition DoD Body mass index (BMI) 40.0-44.9, adult Active Condition DoD Obesity, unspecified Active Condition DoD Adjustment disorder with anxious mood [...] Organization Osteoporosis (disorder) Active Condition Unknown Organization Medications Combined list of outpatient medications from [...] total refill(s ), Acute, 12/15/17 1:14:00 AM [facility], [facility] pharmacy dispense (Rx) Oral (given by mouth) [...] refill(s ), Acute, 05/15/19 2:00:00 AM T, [facility] pharmacy dispense (Rx) Oral (given by mouth) Complet ed 05/15/20192018 60.0 0125C-A Harpreet Benadryl 25 mg oral capsule 1 cap, Oral, every day at bedtime, PRN insomnia , # 30 cap, 0 total refill(s ), Acute, 12/09/17 5:55:00 PM [facility], [facility] pharmacy dispense (Rx) Oral (given by mouth) Discont inued 12/09/2017 7 2017 30.0 0125C-A Harpreet buPROPion 200 mg/12 hours (SR) oral tablet, extended release 1 tabs, Oral, BID, # 60 tabs, 1 total refill(s ), Maintena [facility] pharmacy dispense (Rx) Oral (given by mouth) Discont inued 12/16/2017 8 2017 60.0 ZZDONOT [id number] C-Madig an [place] buPROPion 200 mg/12 hours (SR) oral tablet, extended release buPROPio n 200 mg/12 hours (SR) oral tablet, extended release Start Date: 05/22/17 Stop Date: 09/30/17 Status: Iani silvia Repeat number: 1 Discont inued 09/30/20172017 [...] # 60 cap, 1 total refill(s ), [facility]ena [facility], [facility] pharmacy dispense (Rx) Discont inued 12/09/2017 8 2017 60.0 ZZDONOT [id number] C-Madig an [place] DULoxetine 30 mg oral delayed release capsule 1 cap, Oral, BID, 1 cap oral daily for 7 -14 days then two po daily, # 60 cap, 2 total refill(s ), [facility]ena [facility], [facility] pharmacy dispense (Rx) Oral (given by mouth) Ordered 8 2017 60.0 ZZDONOT [id number] C-Madig an [place] ergocalcife rol 50,000 intl units (1.25 mg) oral capsule cap, Oral, 0 total refill(s ), [facility] Oral (given by mouth) Discont inued 09/01/20172017 0125C-A CEM Mullins Ferrous Sulfate (Ferosul Eq.) Tablet 325 mg Oral Ferrous Sulfate (Ferosul Eq.) Tablet 325 mg Oral Start Date: 05/22/17 Stop Date: 12/09/17 Status: Iani silvia Repeat number: 1 Discont inued 12/09/20172017 No Facilit y Access folic acid 1 mg oral tablet folic acid 1 mg oral tablet Start Date: 05/22/17 Stop Date: 09/01/17 Status: Mary vega Repeat number: 1 Discont inued 09/01/20172017 No Facilit y Access gabapentin 600 mg oral tablet 1 tabs, Oral, BID, 3 day coverage supply, # 6 tabs, 0 total refill(s ), Hard Stop, 09/01/17 11:00:46 AM [facility] pharmacy dispense (Rx) Oral (given by mouth) Complet ed 09/01/2017 8 2017 6.0 ZZDONOT [id number] C-Madig an [place] gabapentin 600 mg oral tablet 1 tabs, Oral, BID, 3 day coverage supply, # 180 tabs, 0 total refill(s ), [facility] pharmacy dispense (Rx) Oral (given by mouth) Discont inued 12/09/2017 8 2017 180.0 ZZDONOT [id number] C-Madig an [place] gabapentin 600 mg oral tablet gabapent in 600 mg oral tablet Start Date: 05/22/17 Stop Date: 08/27/17 Status: Mary vega Repeat number: 1 Discont inued 08/27/20172017 No Facilit y Access ibuprofen 600 mg oral tablet 1 tabs, Oral, every 8 hr, X 10 days, # 30 tabs, 0 total refill(s ), Acute, 12/09/17 5:55:00 PM [facility] pharmacy dispense (Rx) Oral (given by mouth) Discont inued 12/09/20172017 30.0 0125A-A Harpreet Icy Hot with Capsaicin 0.025% topical cream 1 appl, Topical, BID, X 14 days, # 20 g, 0 total refill(s ), Acute, [facility] pharmacy dispense (Rx) Topica l (on the skin) Complet ed 08/26/20172017 20.0 0125A-A Harpreet lidocaine 5% topical film 1 patches, Topical, Daily, # 30 patches, 0 total refill(s ), [facility] pharmacy dispense (Rx) Topica l (on the skin) Discont inued 12/09/2017 8 2017 30.0 0125A-A CEM Mullins Lidoderm 5% topical film 1 patches, Topical, Daily, Leave on for up to 12 hours within a 24 hour period (12 hours on, 12 hours off), # 30 patches, 5 total refill(s ), [facility] pharmacy dispense (Rx) Topica l (on the skin) Ordered 8 2017 30.0 ZZDONOT [id number] [facility] Lyrica 150 mg Cap 150 mg, Oral, BID, # 60 EA, 3 total refill(s ), Hard Stop Oral (given by mouth) Complet ed 10/12/2017 8 2017 60.0 Ambulat ory Pharmac y magnesium aspartate 615 mg (61 mg magnesium) oral delayed release tablet 2 tabs, Oral, BID, # 120 tabs, 0 total refill(s ), [facility] pharmacy dispense (Rx) Oral (given by mouth) Ordered 2017 120.0 0125C-A Harpreet Maxalt-SALES BROKER 10 mg oral tablet, disintegrat ing 1 tabs, Oral, Daily, PRN migraine headache , may repeat dose every 2 hours up to a maximum of 30 mg in 24 hours, # 6 tabs, 0 total refill(s ), [facility] pharmacy dispense (Rx) Oral (given by mouth) Ordered 8 2017 6.0 0125C-A Harpreet Maxalt-SALES BROKER 10 mg oral tablet, disintegrat ing 1 tabs, Oral, Daily, PRN migraine headache , may repeat dose every 2 hours up to a maximum of 30 mg in 24 hours, # 6 tabs, 0 total refill(s ), Acute, 12/09/17 5:55:00 PM [facility] pharmacy dispense (Rx) Oral (given by mouth) Discont inued 12/09/2017 7 2017 6.0 0125C-A Harpreet Naprosyn 250 mg oral tablet 1 tabs, Oral, BID, # 30 tabs, 0 total refill(s ), Acute, 08/20/17 2:00:00 AM [facility] pharmacy dispense (Rx) Oral (given by mouth) Complet ed 08/20/2017 7 2017 30.0 ZHadlyeDONOT [id number] [facility] ondansetron 8 mg Tab-Dis 8 mg, # 30 EA, 3 total refill(s ), Hard Stop Discont inued 12/09/2017 8 2017 30.0 Ambulat ory Pharmac y pregabalin 150 mg oral capsule 1 cap, Oral, BID, # 60 cap, 3 total refill(s ), [facility] pharmacy dispense (Rx) Oral (given by mouth) Discont inued 02/25/2018 8 2017 60.0 0125C-A Harpreet pregabalin 150 mg oral capsule 1 cap, Oral, BID, # 180 cap, 3 total refill(s ), [facility] pharmacy dispense (Rx) Oral (given by [...] Start Date: 05/22/17 Stop Date: 12/09/17 Status: Mary vega Repeat number: 1 Discont inued 12/09/20172017 No Facilit y Access promethazin e 25 mg oral tablet 1 tabs, Oral, every 4 hr, PRN nausea/v omiting, # 60 tabs, 0 total refill(s ), [facility] pharmacy dispense (Rx) Oral (given by mouth) Discont inued 02/25/2018 7 2017 60.0 0125C-A Harpreet promethazin e 25 mg oral tablet 1 tabs, Oral, every 4 hr, PRN nausea/v omiting, # 60 tabs, 0 total refill(s ), [facility] dispense (Rx) Oral (given by mouth) Ordered 8 2017 60.0 0125C-A CEM Mullins propranolol 40 mg oral tablet 1 tabs, Oral, BID, Coverage supply, # 6 tabs, 0 total refill(s ), Hard Stop, [facility] pharmacy dispense (Rx) Oral (given by mouth) Complet ed 09/01/2017 8 2017 6.0 ZZDONOT [id number] C-Madig an [place] propranolol 40 mg oral tablet 1 tabs, Oral, BID, # 60 tabs, 0 total refill(s ), [facility] ([facility]) Oral (given by mouth) Discont inued 07/28/2017 7 2016 60.0 ZZDONOT [id number] C-Madig an [place] propranolol 40 mg oral tablet 1 tabs, Oral, BID, # 60 tabs, 0 total refill(s ), Hard Stop, [facility] pharmacy dispense (Rx) Oral (given by mouth) Complet ed 08/27/2017 7 2017 60.0 ZZDONOT [id number] C-Madig an [place] propranolol 40 mg oral tablet 1 tabs, Oral, BID, Coverage supply, # 60 tabs, 2 total refill(s ), Hard Stop, [facility] pharmacy dispense (Rx) Oral (given by mouth) Complet ed 12/16/2017 8 2017 60.0 ZZDONOT [id number] C-Madig an [place] propranolol 40 mg oral tablet 1 tabs, Oral, BID, Coverage supply, # 60 tabs, 2 total refill(s ), [facility]) Oral (given by mouth) Ordered 8 2017 60.0 ZZDONOT [id number] C-Madig an [place] propranolol 40 mg oral tablet proprano lol 40 mg oral tablet Start Date: 05/22/17 Stop Date: 06/24/17 Status: Mary vega Repeat number: 1 Discont inued 06/24/20172016 No Facilit y Access traZODone 50 mg oral tablet traZODon e 50 mg oral tablet Start Date: 05/22/17 Stop Date: 09/01/17 Status: Mary vega Repeat number: 1 Discont inued 09/01/20172017 No Facilit y Access zolpidem 5 mg oral tablet 1 tabs, Oral, Daily, PRN sleep, # 3 tabs, 0 total refill(s ), Hard Stop, 09/01/17 11:00:46 AM [facility], [facility] pharmacy dispense (Rx) Oral (given by mouth) Complet ed 09/01/2017 8 2017 3.0 ZZDONOT [id number] C-Madig an [place] zolpidem 5 mg oral tablet 1 tabs, Oral, Daily, PRN sleep, # 30 tabs, 2 total refill(s ), [facility] pharmacy dispense (Rx) Oral (given by mouth) Ordered 8 2017 30.0 ZZDONOT [id number] C-Madig an [place] zolpidem 5 mg oral tablet zolpidem 5 [...] ion Darvocet A500 Drug allergy Rash Active ZZDONOTUS [id number]-FG C McChord DARVOCET A500 (PROPOXYPHENE NAP/ACETAMINO PHEN) Drug allergy (disorder) Rash active 6 [facility] Dilaudid Drug allergy Rash Active JARED R0620P-XM C McChord DILAUDID (HYDROMORPHON E HCL) Drug allergy (disorder) Rash active 6 [facility] HYDROmorphone Propensity to adverse reactions to substance Rash Active 6 Unknown Organizat ion ketorolac Propensity to adverse reactions to substance Rash Active 6 Unknown Organizat ion Toradol Drug allergy Rash Active JARED [id number] C McChord TORADOL (KETOROLAC TROMETHAMINE) Drug allergy (disorder) Rash active 6 [facility] Immunizations Combined list of available immunizations from the Department of Defense and Veterans Affairs facilities. 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 Comments Source Tdap 2020 RADHA, () Not Given Tdap DoD Influenza, injectable, MDCK, preservative free, quadrivalent 2020 RADHA, () Not Given Influenza , injectabl e, MDCK, preservat elizabeth free, quadrival ent DoD pneumococcal polysaccharid e PPV23 2020 RADHA, () Not Given pneumococ omar polysacch aride PPV23 DoD COVID-19, mRNA, LNP-S, PF, 30 mcg/0.3 mL dose 2020 [employer]ENN[employer]ER [employer] (PFR) Not Given COVID-19, mRNA, LNP-S, PF, 30 mcg/0.3 mL dose DoD COVID-19, mRNA, LNP-S, PF, 30 mcg/0.3 mL dose 2020 [employer] (PFR) Not Given COVID-19, mRNA, LNP-S, [...] vaccine 1 2016 JEFERSON RANDALL NZ3TA 104 [facility] ([facility] complet ed hepatitis A and hepatitis B vaccine DoD Influenza, trivlanent, adjuvanted, pf 2015 zzLef t Arm [id number] 168 [employer] complet ed Influenza , trivlanen t, adjuvante d, pf 07/09/16 Given Ambulat ory Pharmac y tetanus, diphtheria, acellular pertu is [id number] tetanus, diphtheri a, acellular pertussis 07/09/16 Given Ambulat ory Pharmac y pneumococcal polysaccharid e, 23 [facility]ent [facility] [id number] 33 [employer] complet ed pneumococ omar polysacch aride, 23 valent 07/09/16 Given Ambulat ory Pharmac y pneumococcal polysaccharid e vaccine, 23 valent 1 2015 FILIPE TRAMMELL [id number] 33 Merck (MSD) compl et ed pneumococ omar polysacch aride vaccine, 23 valent DoD tetanus toxoid, reduced diphtheria toxoid, and acellular pertu is vaccine, adsorbed 1 2015 FILIPE TRAMMELL K2D2T 115 [facility] ([facility]) complet ed tetanus toxoid, reduced diphtheri a toxoid, and acellular pertussis vaccine, adsorbed DoD Influenza, seasonal, injectable, preservative free 1 2015 Unknown, Provider [id number] 140 [employer] (SEQ) complet ed Influenza , seasonal, injectabl e, preservat elizabeth free DoD Seasonal trivalent influenza vaccine, adjuvanted, preservative free 1 2015 FILIPE TRAMMELL [id number] 168 [employer] (SEQ) com plet ed Seasonal [...] TRANSCR IBED 62 complet ed Human Papilloma virus,eilzabeth drivalent (HPV4) 06/06/15 Given Ambulat ory Pharmac [...] Heart Rate Monitored 74 bpm 08/12/2017 07:34:[address] [place] [address] Heart Rate Monitored 96 bpm 08/12/2017 07:31:[address] [place] [address] Heart Rate Monitored 75 bpm 08/12/2017 05:58:[address] [place] [address] Respiratory Rate 16 br/min 09/01/2017 16:30:00 [id number]-Nmevnyj [place] Diastolic Blood Pressure 91 mm[Hg] 018 03:33:[address] [place] [address] Systolic Blood Pressure 123 mm[Hg] 12/06/19 18 03:33:[address] [place] [address] Peripheral Pulse Rate 92 bpm 12/05/2017 03:33:[address] [place] [address] Respiratory Rate 18 br/min 12/05/2017 03:33:[address] [place] [address] Mean Arterial Pressure, Cuff (Calc) 88 mm[Hg] 12/02/2017 20:31:[address] [place] [address] Temperature Tympanic 36.6 Berta 12/02/2017 20:31:[address] [place] [address] Systolic Blood Pressure 120 mm[Hg] 01/20/20 18 18:01:[address] [place] [address] Diastolic Blood Pressure 89 mm[Hg] 018 18:01:[address] [place] [address] Respiratory Rate 18 br/min 01/19/2018 18:01:[address] [place] [address] Temperature Tympanic 36.5 Berta 01/19/2018 18:01:[address] [place] [address] Peripheral Pulse Rate 86 bpm 01/19/2018 18:01:00 [facility] Harpreet Mean Arterial Pressure, Cuff (Calc) 99 mm[Hg] 01/19/2018 18:01:00 [facility] Respiratory Rate 16 br/min 08/12/2017 09:18:00 [facility]bin[facility] Harpreet Heart Rate Monitored 91 bpm 08/12/2017 09:18:00 AnetaFORMERLY [facility] Harpreet Systolic Blood Pressure 133 mm[Hg] 02/04/20 18 15:56:00 [facility] Harpreet Diastolic Blood Pressure 87 mm[Hg] 018 15:56:00 [facility] Harpreet Mean Arterial Pressure, Cuff (Calc) 102 mm[Hg] 02/03/2018 15:56:00 [facility]reet Peripheral Pulse Rate 107 bpm 02/03/2018 15:56:00 [facility]reet Mean Arterial Pressure, Cuff (Calc) 91 mm[Hg] 09/30/2017 22:07:00 [id number]-Haliiqf [place] Temperature Tympanic 36 Berta 09/30/2017 22:07:00 [id number]-Euecuoj [place] Temperature Tympanic 36.2 Berta 07/23/2017 17:47:00 Ambulatory Pharmacy Heart Rate Monitored 81 bpm 08/12/2017 08:18:00 RobbinWW [facility] Harpreet Respiratory Rate 16 br/min 08/12/2017 08:18:00 RobbinWW [facility] Harpreet Heart Rate Monitored 79 bpm 08/12/2017 07:19:00 [facility] Harpreet Heart Rate Monitored 79 bpm 08/12/2017 07:08:00 [facility] Harpreet Systolic Blood Pressure 108 mm[Hg] 12/10/19 18 21:49:00 [id number]-DFM McChord Diastolic Blood Pressure 76 mm[Hg] 018 21:49:00 [id number]-ARZ McChord Respiratory Rate 17 br/min 12/09/2017 21:49:00 ZVCOEHFMTS2327Z-RNN McChord Temperature Tympanic 36.7 Berta 12/09/2017 21:49:00 [id number]-VSN McChord Mean Arterial Pressure, Cuff (Calc) 87 mm[Hg] 12/09/2017 21:49:00 [id number]-ZAZ McChord Peripheral Pulse Rate 100 bpm 12/09/2017 21:49:00 [id number]-XRH McChord Respiratory Rate 18 br/min 01/25/2018 20:32:00 [facility] Harpreet Temperature Tympanic 35.4 Berta 01/25/2018 20:32:00 012-[facility] Peripheral Pulse Rate 95 bpm 01/25/2018 20:32:[address] [place], [place] [address] Mean Arterial Pressure, Cuff (Calc) 96 mm[Hg] 01/25/2018 20:32:[facility] 137 mm[Hg] 01/26/20 18 20:32:00 [facility] Di[facility] Blood Pressure 76 mm[Hg] 018 20:32:00 [facility] Sy[facility] Pressure 125 mm[Hg] 02/26/20 18 17:27:00 012-[facility] Diastolic Blood Pressure 85 mm[Hg] 018 17:27:[address] [place], [place] [address] Temperature Tympanic 36.2 Berta 02/25/2018 17:27:00 [facility] Mean Arterial Pressure, Cuff (Calc) 98 mm[Hg] 02/25/2018 17:27:00 [facility] Per[facility] Pulse Rate 90 bpm 02/25/2018 17:27:00 [facility] Temperature Tympanic 36.2 Berta 12/16/2017 15:20:00 [id number]-Eqtyeol [place] Mean Arterial Pressure, Cuff (Calc) 80 mm[Hg] 12/16/2017 15:20:00 [id number]-Dkemqgb [place] Systolic Blood Pressure 118 mm[Hg] 12/17/19 18 15:20:00 QHKVJWXSNL2343S-Ewddrih [place] Diastolic Blood Pressure 61 mm[Hg] 018 15:20:00 LHDZQKJSHT8735L-Wyoefqz [place] Peripheral Pulse Rate 82 bpm 12/16/2017 15:20:00 BHNEWWICHP6692B-Pqccexp [place] Heart Rate Monitored 74 bpm 08/12/2017 06:19:00 012-RAMIRO Mullins Diastolic Blood Pressure 94 mm[Hg] 018 05:04:00 012JACE Mullins Systolic Blood Pressure 141 mm[Hg] 12/06/19 18 05:04:00 012JACE Mullins Respiratory Rate 16 br/min 12/05/2017 05:04:00 012JACE Mullins Peripheral Pulse Rate 81 bpm 12/05/2017 05:04:00 JUDY Mullins Heart Rate Monitored 91 bpm 08/12/2017 07:01:00 012JACE Mullins Temperature Temporal Artery 36.6 Berta 08/12/2017 02:56:00 012Mirta-RAMIRO Mullins Systolic Blood Pressure 190 mm[Hg] 01/23/20 18 19:31:00 012Krishna-RAMIRO Mullins Diastolic Blood Pressure 80 mm[Hg] 018 19:31:00 012OLGA Mullins Temperature Tympanic 36.4 Berta 01/22/2018 19:31:00 012OLGA Mullins Peripheral Pulse Rate 82 bpm 01/22/2018 19:31:00 012Krishna-RAMIRO Mullins Mean Arterial Pressure, Cuff (Calc) 117 mm[Hg] 01/22/2018 19:31:00 012OLGA Mullins Temperature Temporal Artery 36.9 Berta 12/05/2017 00:42:00 012Mirta-RAMIRO Mullins Respiratory Rate 20 br/min 12/05/2017 00:42:00 012JACE Mullins Mean Arterial Pressure, Cuff (Calc) 88 mm[Hg] 12/15/2017 16:21:00 012Krishna-RAMIRO Mullins Peripheral Pulse Rate 97 bpm 12/15/2017 16:21:00 012Krishna-RAMIRO Mullins Systolic Blood Pressure 120 mm[Hg] 12/16/19 18 16:21:00 012Krishna-RAMIRO Mullins Diastolic Blood Pressure 72 mm[Hg] 018 16:21:00 012OLGA Mullins Temperature Tympanic 36.4 Berta 12/15/2017 16:21:00 012OLGA Mullins Respiratory Rate 18 br/min 12/15/2017 16:21:00 012OLGA Mullins Encounters Combined list of: 1) Encounters from Department of Veterans Affairs facilities going backup to the last 18 months, not all VA inpatient encounters are included; 2) Encounters from the Department of Defense facilities going backup to 280 months. Location Location Details Encounter Type Encounter Number Reason For Visit Attending Provider ADM Date DC Date Status Disposition Source th [facility](Can non_FHC_T eam B) TELE CONSULT [id number] Notes Entered by: SHAHRIAR SIERRA 06 Mar 2015 1329 ------- ------- ------- ------- -- NETWORK RESULT- -02/28 ARELI ZAMARRIPA 03/06th [facility](C annon_F HC_Team B) th [facility](Can non_FHC_T eam B) OUTPATIENT [id number] CC F/U COLEEN WILELTT 03/28 Released w/o Limitations th [facility](C annon_F HC_Team B) th [facility]) OUTPATIENT [id number] Per PCM JOSE MCINTYRE 04/03 Released w/o Limitations [facility]) [facility]) OUTPATIENT [id number] [facility] JOSE MCINTYRE 04/10 Released w/o Limitations [facility]) th [facility](Can non_FHC_T eam B) OUTPATIENT [id number] F/u per PCM COLEEN WILLETT 04/11 Released w/o Limitations th [facility](C annon_F HC_Team B) [facility](Can non_OpMed _Team A) TELE CONSULT [id number] Notes Entered by: MERLY WILKERSON 16 Apr 2015 1518 ------- ------- ------- ------- -- [facility] COLEEN WILLETT 04/16th [facility](C annon_O pMed_Te am A) [facility](Can non_FHC_T eam B) OUTPATIENT [id number] F/u Medicat ions COLEEN WILLETT 04/25 Released w/o Limitations [facility](C annrhina_F HC_Team B) [facility]) OUTPATIENT [id number] MARGARITA MAYSDorcas Marshall 04/25 Released w/o Limitations [facility]) [facility]) OUTPATIENT [id number] [facility] JOSE MCINTYRE 04/26 Released w/o Limitations [facility]) [facility](Can [facility]_T ea B) TELE CONSULT [id number] Notes Entered by: SHAHRIAR SIERRA 30 Apr 2015 1024 ------- ------- ------- ------- -- NETWORK TANNER- R KNEE XRAY-05/2015 COLEEN WILLETT 04/30th [facility](C lulu_Wero HC_Team B) th [facility]) OUTPATIENT [id number] [facility] MARGARITA MCINTYREDorcas Marshall 04/30 Released w/o Limitations th [facility]) [facility]) TELE CONSULT [id number] Notes Entered by: JOSE MCINTYRE 02 May 2015 0731 ------- ------- ------- ------- -- JOSE Jennings 05/02th [facility]) [facility](Can non_[facility]_T eam B) TELE CONSULT [id number] Notes Entered by: ANISA MACHUCA 02 May 2015 0812 ------- ------- ------- ------- -- ANGUS STAPLES [facility] 05/02 Referred for Appointment th [facility](C annon_F HC_Team B) th [facility](Can non_C_T eam B) TELE CONSULT [id number] Notes Entered by: HEATHER RUIZ 03 May 2015 1326 ------- ------- ------- ------- -- Network Results - Podiatr y - 04/2015 COLEEN WILLETT 05/03th [facility](C annon_F HC_Team B) th [facility](Can non_C_T eam B) TELE CONSULT [id number] Notes Entered by: LEATHA CARO 06 May 2015 1727 ------- ------- ------- ------- -- Network Results - MRI Brain - [id number] 8. COLEEN WILLETT 05/06th [facility](C annon_F HC_Team B) th [facility](Can non_[facility]_T eam B) TELE CONSULT [id number] Notes Entered by: Dorcas ARZOLA 10 May 2015 1151 ------- ------- ------- ------- -- BILATER AL MAMMOGR AM. LEFT BREAST ULTRASO UND RESULTS LINDA OAKES 05/10th [facility](C annon_F HC_Team B) [facility]) TELE CONSULT [id number] Notes Entered by: JOSE MCINTYRE 10 May 2015 1900 ------- ------- ------- ------- -- [facility] 05/11th [facility]) [facility]) OUTPATIENT [id number] BHJOSE MAYS 05/11 Admitted th [facility]) [facility](Can non_FHC_T eam B) OUTPATIENT [id number] [facility] COLEEN WILLETT 06/06 Released w/o Limitations [facility](Tio Mccrary HC_Team B) [facility] [facility]) TELE CONSULT [id number] Notes Entered by: JOSE MCINTYRE 06 Jun 2015 1302 ------- ------- ------- ------- -- JOSE Jennings 06/06th [employer]([facility]) [employer] [employer](Can non_Ped_T eam A) TELE CONSULT [id number] Notes Entered by: SAMANTHA WILLIS 11 Jun 2015 1109 ------- ------- ------- ------- -- Needle Stick AISHWARYA KLEIN 06/11th [employer]([facility] ed_Team A) th [employer]([facility]) OUTPATIENT [id number] [facility] JOSE MCINTYRE 06/12 Released w/o Limitations th [employer]([facility]) [employer] [employer] [facility]) OUTPATIENT [id number] PAP. 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, ALL D 06/25 Released w/o Limitations th [employer](G yn [facility]) [employer] [employer](Can non_FHC_T eam B) TELE CONSULT [id number] Notes Entered by: ISHA RIZZO 26 Jun 2015 1322 ------- ------- ------- ------- -- 16 June 2015 [facility] ER Log GLENDY SILVA Kamla 06/26th [employer](C annon_F HC_Team B) [employer] [employer]([facility]) TELE CONSULT [id number] Notes Entered by: CHALINO MCGARRY 26 Jun 2015 1328 ------- ------- ------- ------- -- Care Coordin tana. JOSE MCINTYRE 06/26th [employer]([facility]) th [employer](Can non_FHC_T eam B) TELE CONSULT [id number] Notes Entered by: NEETU PEREZ 02 Jul 2015 0913 ------- ------- ------- ------- -- LAB RESULTS AISHWARYA KLEIN 07/02th [employer](C annon_F HC_Team B) [employer](Can non_FHC_T eam B) OUTPATIENT [id number] URINATI NG BLOOD X2 DAYS COLEEN WILLETT 07/03 Released w/o Limitations th [employer](C annon_F HC_Team B) [employer] [id number] routine -ss TERRELL WILLAMS 07/03 Released w/o Limitations [employer](O ptometr y [facility]) [employer](Can non_FHC_T eam B) TELE CONSULT [id number] Notes Entered by: HEATHER RUIZ 06 Jul 2015 1022 ------- ------- ------- ------- -- Network Results - Mental Health - 06/2015 COLEEN WILLETT 07/06th [employer](C annon_F HC_Team B) [employer]([facility]) OUTPATIENT [id number] [facility] JOSE MCINTYRE 07/10 Released w/o Limitations [employer]([facility]) th [employer](Can non_FHC_T eam B) TELE CONSULT [id number] Notes Entered by: MISA CASH 16 Jul 2015 1425 ------- ------- ------- ------- -- NETWORK RESULTS -ER- COLEEN WILLETT 07/16th [employer](C annon_F HC_Team B) th [employer](Can non_FHC_T eam B) OUTPATIENT [id number] Resched uled Thyroid blookwo rk COLEEN WILLETT 07/17 Released w/o Limitations th [employer](C annon_F HC_Team B) th [employer]([facility] P) TELE CONSULT [id number] Notes Entered by: NATALIIA LIRA 17 Jul 2015 1524 ------- ------- ------- ------- -- [facility] Case Review SHAHEED BUCIO 07/17 [employer](E [facility]) th [employer](Can non_FHC_T eam B) TELE CONSULT [id number] Notes Entered by: NEETU PEREZ 18 Jul 2015 0746 ------- ------- ------- ------- -- BACK IS OUT GLENDY SILVA 07/18th [employer](C annon_F HC_Team B) th [employer](Can non_FHC_T eam B) TELE CONSULT [id number] Notes Entered by: MISA CASH 18 Jul 2015 1152 ------- ------- ------- ------- -- [facility] COLEEN WILLETT 07/18th [employer](C annrhina_F HC_Team B) [employer](Can non_FHC_T eam B) TELE CONSULT [id number] Notes Entered by: MISA CASH 18 Jul 2015 1625 ------- ------- ------- ------- -- NETWORK RESULTS -MRI L SPINE-1 09/18/14 COLEEN WILLETT 07/18 [employer](C annrhina_F HC_Team B) [employer](Can non_FHC_T eam B) TELE CONSULT [id number] Notes Entered by: MISA CASH 20 Jul 2015 0943 ------- ------- ------- ------- -- NETWORK RESULTS -ER and ER (2)- COLEEN WILLETT 07/20 [employer](C annrhina_F HC_Team B) [employer](Can non_FHC_T eam B) TELE CONSULT [id number] Notes Entered by: THOMPSON 20 Jul 2015 1104 ------- ------- ------- ------- -- NETWORK RESULT- ER-JUL 01 COLEEN WILLETT 07/20 [employer](C annrhina_F HC_Team B) [employer](Can non_FHC_T eam B) TELE CONSULT [id number] Notes Entered by: THOMPSON 20 Jul 2015 1117 ------- ------- ------- ------- -- NETWORK RESULT- ER(2)-2 JUL 01 COLEEN WILLETT 07/20th [employer](C annonSadeF HC_Team B) th [employer](Can non_C_T eam B) TELE CONSULT [id number] Notes Entered by: ANISA MACHUCA 24 Jul 2015 0925 ------- ------- ------- ------- -- REFERGLENDY BE 07/24 [employer](C annon_F HC_Team B) [employer]([facility]_T eam B) TELE CONSULT [id number] Notes Entered by: MISA CASH 24 Jul 2015 1005 ------- ------- ------- ------- -- NETWORK RESULTS -HOLTER MONITOR DAY-08/31 COLEEN WILLETT 07/24 [employer](C annon_F HC_Team B) [employer]([facility]_T eam B) TELE CONSULT [id number] Notes Entered by: HEATHER RUIZ 25 Jul 2015 0829 ------- ------- ------- ------- -- Network Results - Neurolo gy - 06/2015 COLEEN WILLETT 07/25 [employer](C annon_F HC_Team B) [employer](Can non_[facility]_T ea B) TELE CONSULT [id number] Notes Entered by: NEETU PEREZ 30 Jul 2015 1404 ------- ------- ------- ------- -- URINE TEST GLENDY SILVA 07/30th [employer](C annon_F HC_Team B) [employer]([facility]) TELE CONSULT [id number] Notes Entered by: TYRON HAYES 31 Jul 2015 1307 ------- ------- ------- ------- -- Referra christiana for [facility] M&V CM REBECA HAYESNicole Marshall 07/31 Other Not Elsewhere Classified [employer] [employer](N urse Case Managem ent) [employer](Angel leon Case Managemen t) TELE CONSULT [id number] Notes Entered by: TYRON HAYES 01 Aug 2015 1423 ------- ------- ------- ------- -- [facility] CM JOSR HAYES Rolando 08/01 Other Not Elsewhere Classified [employer] [employer](N bradley Case Managem ent) [employer](Can non_FHC_T eam B) TELE CONSULT [id number] Notes Entered by: ISHA RIZZO 07 Aug 2015 1440 ------- ------- ------- ------- -- [id number] [facility] [place] AISHWARYA Aguero 08/07th [employer](C annon_F HC_Team B) [employer] [employer](Can non_FHC_T eam B) TELE CONSULT [id number] Notes Entered by: MISA CASH 20 Aug 2015 1015 ------- ------- ------- ------- -- NETWORK RESULTS -OPERAT ELIZABETH NOTE- COLEEN WILLETT 08/20th [employer](C annon_F HC_Team B) [employer] [employer](Can non_FHC_T eam B) TELE CONSULT [id number] Notes Entered by: HEATHER RUIZ 21 Aug 2015 1250 ------- ------- ------- ------- -- Network Results - Cardiol ogy - 07/2015 COLEEN WILLETT 08/21 27th [employer](C annon_F HC_Team B) th [employer](Can non_FHC_T eam B) TELE CONSULT [id number] Notes Entered by: HEATHER RUIZ 31 Aug 2015 1010 ------- ------- ------- ------- -- Network Results - Cardiol ogy - 07/2015 COLEEN WILLETT 08/31th [employer](C annon_F HC_Team B) th [employer](Can non_FHC_T eam B) OUTPATIENT [id number] lab work for hep COLEEN Gallego 09/04 Released w/o Limitations th [employer](C annon_F HC_Team B) th [employer](Can non_FHC_T eam B) TELE CONSULT [id number] Notes Entered by: ANISA MACHUCA 13 Sep 2015 1328 ------- ------- ------- ------- -- SLEEP MACHINE NEEDED AISHWARYA KLEIN 09/13 [employer]([facility] annon_F HC_Team B) th [employer](Can non_FHC_T eam B) TELE CONSULT [id number] Notes Entered by: ANISA MACHUCA 17 Sep 2015 1420 ------- ------- ------- ------- -- MEDICAT ION GLENDY HARRIS 09/17th [employer](C annon_F HC_Team B) th [employer](Can non_FHC_T eam B) TELE CONSULT [id number] Notes Entered by: HEATHER RUIZ 20 Sep 2015 1015 ------- ------- ------- ------- -- Network Results - Neurolo gy - 08/2015 COLEEN WILLETT 09/20th [employer](C annon_F HC_Team B) th [employer](Can non_FHC_T eam B) TELE CONSULT [id number] Notes Entered by: HEATHER RUIZ 25 Sep 2015 0844 ------- ------- ------- ------- -- Network Results - Sleep Study - 07/2015 COLEEN WILLETT 09/25th [employer](C annon_F HC_Team B) th [employer](Can non_FHC_T eam B) TELE CONSULT [id number] Notes Entered by: MISA CASH 08 Oct 2015 0757 ------- ------- ------- ------- -- NETWORK RESULTS -CARDIO LOGY- COLEEN WILLETT 10/08th [employer](C annon_F HC_Team B) th [employer](Can non_FHC_T eam B) OUTPATIENT [id number] CC ACID REFLUX COLEEN WILLETT 10/08 Released w/o Limitations th [employer]([facility] annon_F HC_Team B) 27[facility] [employer](Can non_FHC_T eam B) TELE CONSULT [id number] Notes Entered by: Wicho EDWARDS 12 Oct 2015 1512 ------- ------- ------- ------- -- Possibl e yeast infecti on due to antibio tics GLENDY SILVA 10/12th [employer](C annon_F HC_Team B) [facility] [employer](Can non_FHC_T eam B) TELE CONSULT [id number] Notes Entered by: NEETU PEREZ 15 Oct 2015 1325 ------- ------- ------- ------- -- MED REFILL EDUARDO VELAZQUEZ EDWARD Released w/o Limitations [employer](C annon_F HC_Team B) [employer](Can non_FHC_T eam B) TELE CONSULT [id number] Notes Entered by: HEATHER RUIZ 16 Oct 2015 1453 ------- ------- ------- ------- -- Network Results - Endocri nology - 08/2015 COLEEN WILLETT 10/15 [employer](C annrhina_F HC_Team B) [employer] [facility]) TELE CONSULT [id number] Notes Entered by: LANI BARNHART 19 Oct 2015 1015 ------- ------- ------- ------- -- VULVA BLEEDIN G, ITCHY,R ED AND SWOLLEN ALL BERNAL 10/18 [employer]([facility]) [employer]([facility]) OUTPATIENT [id number] pelvic exam ALL BERNAL 10/21 Released w/o Limitations [employer]([facility]) [employer](Can non_FHC_T eam B) TELE CONSULT [id number] Notes Entered by: LANI BARNHART 23 Oct 2015 1223 ------- ------- ------- ------- -- LAB RESULTS ALL BERNAL 10/22 [employer](C annon_F HC_Team B) [employer](Can non_FHC_T eam B) TELE CONSULT [id number] Notes Entered by: MISA CASH 12 Nov 2015 1559 ------- ------- ------- ------- -- NETWORK RESULTS -CPAP COMPLIA NCE REPORT- 6 COLEEN WILLETT 11/11th [employer](C annon_F HC_Team B) [employer](Can non_FHC_T eam B) OUTPATIENT [id number] CC KNEES PAINFUL AND SWELLIN G GETTING WORSE COLEEN WILLETT 11/15 Released w/o Limitations [employer](C annon_F HC_Team B) th [employer](Can non_FHC_T eam B) TELE CONSULT [id number] Notes Entered by: HEATHER RUIZ 16 Nov 2015 1410 ------- ------- ------- ------- -- Network Results - Neurosu rgery - 07/2015 ; Pain Managem ent - 10/2015 ; ARELI ZAMARRIPA 11/15 [employer](C annon_F HC_Team B) th [employer] [facility] OUTPATIENT [id number] Obesity , unspeci MANUEL Brown 11/19 Released w/o Limitations [employer](N sugar Guerra e) th [employer](Can non_FHC_T eam B) TELE CONSULT [id number] Notes Entered by: MISA CASH 21 Nov 2015 1352 ------- ------- ------- ------- -- NETWORK RESULTS -CAROTI D ARTERY DUPLEX REPORT- 6 COLEEN WILLETT 11/20 [employer](C annon_F HC_Team B) th [employer](Can non_FHC_T eam B) TELE CONSULT [id number] Notes Entered by: MISA CASH 23 Nov 2015 1718 ------- ------- ------- ------- -- NETWORK RESULTS -CARDIO LOGY- COLEEN WILLETT 11/22th [employer](C annon_F HC_Team B) th [employer](Can non_FHC_T eam B) TELE CONSULT [id number] Notes Entered by: MISA CASH 27 Nov 2015 1620 ------- ------- ------- ------- -- NETWORK RESULTS -MRI L and R KNEES-0 11/26/15 EARLEVILLEDIMITRY N 11/26 Advice Assessment th [employer](C annon_F HC_Team B) th [employer](Can non_FHC_T eam B) TELE CONSULT [id number] Notes Entered by: Christiana SILVA 28 Nov 2015 1545 ------- ------- ------- ------- -- Med request GLENDY SILVA 11/27 [employer](C annon_F HC_Team B) th [employer](Can non_FHC_T eam B) TELE CONSULT [id number] Notes Entered by: HEATHER RUIZ 04 Dec 2015 1058 ------- ------- ------- ------- -- Network Results - Podiatr y - 11/2015 COLEEN WILLETT 12/03 [employer](C annon_F HC_Team B) th [employer](Can non_FHC_T eam B) TELE CONSULT [id number] Notes Entered by: MISA CASH 05 Dec 2015 1551 ------- ------- ------- ------- -- NETWORK RESULTS -UPPER GI ENDOSCO PY-10/17 09/01 COLEEN WILLETT 12/04 [employer](C annon_F HC_Team B) th [employer](Can non_FHC_T eam B) TELE CONSULT [id number] Notes Entered by: Wicho EDWARDS 06 Dec 2015 1050 ------- ------- ------- ------- -- Elzbieta WILSONDIMITRY Wicho 12/05 Referred for Appointment th [employer](C annon_F HC_Team B) th [employer](Can non_FHC_T eam B) TELE CONSULT [id number] Notes Entered by: MISA CASH 06 Dec 2015 1722 ------- ------- ------- ------- -- NETWORK RESULTS -CARDIO LOGY- COLEEN WILLETT 12/05th [employer](C annon_F HC_Team B) th [employer](Can non_FHC_T eam B) TELE CONSULT [id number] Notes Entered by: KODI COREY 10 Dec 2015 1133 ------- ------- ------- ------- -- Candelario shepard. [id number] COLEEN WILLETT 12/09th [employer](C annon_F HC_Team B) th [employer](Can non_FHC_T eam B) OUTPATIENT [id number] thyriod f/u request ing COLEEN Viyera 12/11 Released w/o Limitations th [employer](C annon_F HC_Team B) 27th [employer](Can non_FHC_T eam B) TELE CONSULT [id number] Notes Entered by: LANI BARNHART 18 Dec 2015 1034 ------- ------- ------- ------- -- MEDICAT ION REFGLENDY MONTAGUE 12/17th [employer](iTo Mccrary HC_Team B) [facility], DIRECT TO [facility] [id number] MAHAMED POWER 01/14 DISCHARGED HOME [facility], DIRECT TO [facility] [id number] MAHAMED POWER 01/21 DISCHARGED HOME [facility] [address]) OUTPATIENT [id number] HAVING A REACTIO N TO HER BLOOD THINNER MICHAEL ROMERO 02/11 Released w/o Limitations [facility]) [facility] y Medical [address]) OUTPATIENT [id number] Notes Entered by: Christiana FAM 13 Feb 2016 1322 ------- ------- ------- ------- -- Risk Managem ent Review SOHAM FAM 02/12 Released w/o Limitations [facility]) [facility], DIRECT TO [facility] [id number] ERIC ARTEAGA 02/13 DISCHARGED HOME [facility]([place] [facility] INPATIENT [id number] inpatie nt consult JEFF SAUCEDO 02/13 Inpatient- Still a Patient [facility]([place] [facility] [facility]) [facility] [facility] TELE CONSULT [id number] Notes Entered by: LUNA 19 Feb 2016 1555 ------- ------- ------- ------- -- Follow up hospita l davidar STEVEN Begum 02/18 [facility]([place] Cardiol ogy Anticoa gulatio n) [facility] F[facility]B [facility]) OUTPATIENT [id number] Notes Entered by: Christiana FAM 20 Feb 2016 1024 ------- ------- ------- ------- -- case managem ent SOHAM FAM 02/19 Released w/o Limitations [facility](A [address]) [facility]([place] [facility]) OUTPATIENT [id number] Pulmona ry embolis STEVEN Gutierrez 02/20 Released w/o Limitations [facility]([place] Cardiol ogy Anticoa gulatio n) [facility]([place] [facility]) TELE CONSULT [id number] Notes Entered by: Esther ESTEVES 25 Feb 2016 0932 ------- ------- ------- ------- -- Labs STEVEN BAXTER 02/24 [facility]([place] Cardiol ogy Anticoa gulatio n) [facility]([place] [facility]tico[facility]) TELE CONSULT [id number] Notes Entered by: LUNA 25 Feb 2016 1511 ------- ------- ------- ------- -- Pt not able to do labs today STEVEN BAXTER 02/24 [facility]([place] Cardiol ogy Anticoa gulatio n) [facility]([address]) TELE CONSULT [id number] Notes Entered by: VÍCTOR RODRIGUEZ 26 Feb 2016 0838 ------- ------- ------- ------- -- Appoint SOHAM Mejia 02/25 [facility](A [address]) [facility]([place] [facility]) TELE CONSULT [id number] Notes Entered by: LUNA 26 Feb 2016 1603 ------- ------- ------- ------- -- documen tation of INR results and STEVEN Albright 02[facility]25 [facility] [facility]ticoa [facility] n) [facility]) TELE CONSULT [id number] Notes Entered by: GABY MOLINA 27 Feb 2016 1116 ------- ------- ------- ------- -- Family hx breast/ ocarian cancers GABY MORE 02/26 [facility]) [facility] [address]) OUTPATIENT [id number] Notes Entered by: Christiana FAM 28 Feb 2016 1049 ------- ------- ------- ------- -- case managem SOHAM Betancourt 02/27 [facility]ased w/o Limitations [facility] [address]) [facility] igan Cardiolog y Anticoagu lation) TELE CONSULT [id number] Notes Entered by: ALEJANDRA AGRAWAL 29 Feb 2016 1636 ------- ------- ------- ------- -- warfchoco berg managem ent ALEJANDRA AGRAWAL S 02/28 [facility]([place] Cardiol [facility]gy Anticoa gulatio n) [facility] igan Cardiolog y Anticoagu lation) TELE CONSULT [id number] Notes Entered by: ALEJANDRA AGRAWAL 10 Mar 2016 1348 ------- ------- ------- ------- -- warfchoco berg managem ent ALEJANDRA AGRAWAL 03/10 [facility]([place] Cardiol ogy Anticoa gulatio n) [facility] OUTPATIENT [id number] Prebx appt DERIK GABY F 03/10 Released w/o Limitations [facility]) [facility] OUTPATIENT [id number] Prebx ed/coun carrie DERIK GABY F 03/13 Released w/o Limitations [facility]) [facility] igan Cardiolog y Anticoagu lation) TELE CONSULT [id number] Notes Entered by: KENNEDY E 13 Mar 2016 1519 ------- ------- ------- ------- -- Patient has upcomin g procedu re, may need to tempora rily discont inue STEVEN Xie 03/13 [facility]([place] Cardiol ogy Anticoa gulatio n) [facility] igan Cardiolog y Anticoagu lation) TELE CONSULT [id number] Notes Entered by: ISHA MUNOZ 14 Mar 2016 1258 ------- ------- ------- ------- -- Documen tation of INR results and warfari ng dosing. \ ISHA MUNOZ 03/14 [facility]([place] Cardiol [facility]gy Anticoa gulatio n) [facility] igan Cardiolog y Anticoagu lation) TELE CONSULT [id number] Notes Entered by: ISHA MUNOZ 17 Mar 2016 1325 ------- ------- ------- ------- -- Documen tation of INR results and warfari ng dosing. ISHA MUNOZ 03/17 [facility](Rolando ad[place] Cardiol ogy Anticoa gulatio n) [facility]([address]) TELE CONSULT [id number] Notes Entered by: Steff JACOBSEN 18 Mar 2016 0905 ------- ------- ------- ------- -- Virtual Polypha [facility] Policy Molina [id number] JONH JACOBSEN 03/18 [facility](A [address]) [facility] igan Cardiolog y Anticoagu lation) TELE CONSULT [id number] Notes Entered by: Mali GROVES 21 Mar 2016 1445 ------- ------- ------- ------- -- INR results and dosing plan GEORGETTE MOTA 03/21 [facility](M [place] Cardiol ogy Anticoa gulatio n) [facility]) TELE CONSULT [id number] Notes Entered by: GABY MOLINA 02 Apr 2016 1327 ------- ------- ------- ------- -- Breast biopsy results GABY MORE 04/02 [facility]) [facility] igan Cardiolog y Anticoagu lation) TELE CONSULT [id number] Notes Entered by: SARA DAIGLE 04 Apr 2016 1145 ------- ------- ------- ------- -- Patient concern s ISHA MUNOZ 04/04 [facility](M [place] Cardiol ogy Anticoa gulatio n) [facility]([address]) OUTPATIENT [id number] migrane s/dizzy HARSHA Snyder 04/07 Released w/o Limitations [facility](A [address]) [facility] iga Cardiolog y Anticoagu lation) TELE CONSULT [id number] Notes Entered by: Mali GROVES 11 Apr 2016 1526 ------- ------- ------- ------- -- INR results and dosing plan , venlafa xine 100mg starts tomorro wALEJANDRA HAWKINS 04/11 [facility] Cardiol ogy Anticoa gulatio n) [facility]([address]) TELE CONSULT [id number] Notes Entered by: Christiana FAM 22 May 2016 0905 ------- ------- ------- ------- -- f/u HARSHA De La Cruz 05/22 [facility](A [address]) [facility]) TELE CONSULT [id number] Notes Entered by: GABY MOLINA 29 May 2016 1311 ------- ------- ------- ------- -- Family hx breast cancer GABY MORE 05/29 [facility]) [facility]([address]) TELE CONSULT [id number] Notes Entered by: JOSSELIN NEGRON 30 May 2016 1508 ------- ------- ------- ------- -- Med Rx problem s JOSSELIN NEGRON 05/30 [facility] [address]) [facility]([address]) TELE CONSULT [id number] Notes Entered by: JASMEET WOLFF 02 Jun 2016 0803 ------- ------- ------- ------- -- prescri ption not called in correct ly JOSSELIN NEGRON Sanjay 06/02 [facility] for [facility] 1B Griff) [facility] Medical [place] [id number] Griff) TELE CONSULT [id number] Notes Entered by: SAWYER GIORDANO 16 Jun 2016 0854 ------- ------- ------- ------- -- Dischar [facility] ANDI GIORDANO 06/16 Referred for Appointment [facility](A [facility] 1B Griff) [facility] [place] [id number] Griff) OUTPATIENT [id number] [facility] back pain ARLINEHARSHA 06/18 Released w/o Limitations [facility](A [facility] 1B Griff) [facility]([place] Cardiolog y Anticoagu lation) TELE CONSULT [id number] Notes Entered by: ISHA MUNOZ 24 Jun 2016 1245 ------- ------- ------- ------- -- Pt had PT/INR drawn with request of INR results and warfari n dosing / Documen tat ISHA MUNOZ 06/24 [facility]([place] [facility] Cardiol ogy Anticoa gulatio n) [facility]([place] [address] Griff) OUTPATIENT [id number] pain VÍCTOR Wheat 07/07 Released w/o Limitations [facility](A [facility] 1B Griff) [facility]([place] [id number] Griff) TELE CONSULT [id number] Notes Entered by: VÍCTOR RODRIGUEZ 09 Jul 2016 1231 ------- ------- ------- ------- -- FILIPE Moreno 07/09 Released to Self Care [facility](A [facility] [address]) [facility] rology Clinic) OUTPATIENT [id number] Migrain e, unspeci fied, not intract able, with status migrain osus ADRIAN TAPIA 07/16 Released w/o Limitations [facility](N eurolog y Clinic) [facility]([address]) TELE CONSULT [id number] Notes Entered by: Christiana FAM 16 Jul 2016 1325 ------- ------- ------- ------- -- MRI order needed for Neurosu VÍCTOR Mustafa 07/16 [facility](A [address]) [facility] Intervent ional Radiology ) OUTPATIENT [id number] Notes Entered by: NORBERT TAPIA 16 Jul 2016 1431 ------- ------- ------- ------- -- Botox ADRIAN TAPIA 07/16 Released w/o Limitations [facility](M martha Interve ntional Radiolo gy) [facility]([address]) TELE CONSULT [id number] Notes Entered by: Christiana FAM 17 Jul 2016 0912 ------- ------- ------- ------- -- rx request VÍCTOR RODRIGUEZ 07/17 [facility](A [address]) [facility] rosurgery ) OUTPATIENT [id number] Low back pain HOWARD DEEDEE L 07/22 Released w/o Limitations [facility](N eurosur melissa) [facility] igan Cardiolog y Anticoagu lation) TELE CONSULT [id number] Notes Entered by: ISHA MUNOZ 24 Jul 2016 0941 ------- ------- ------- ------- -- Pt had PT/INR drawn with request of INR results and warfari n dosing / Documen ISHA Mcdonald Q 07/24 [facility]([place] Cardiol ogy Dequan berg) [facility]([place] [facility]) TELE CONSULT [id number] Notes Entered by: SAHARA POLLACK A 29 Jul 2016 1019 ------- ------- ------- ------- -- NETWORK RESULTS /GI/REF LUX EVAL/DO S /UPLOA DED IN [facility] A 07/29 Other Not Elsewhere Classified [facility] [facility]) [facility]([place] [facility]) TELE CONSULT [id number] Notes Entered by: SENTHIL BergSAHARA A 29 Jul 2016 1217 ------- ------- ------- ------- -- NETWORK RESULTS /GI/LAB RS/DOS /UPLOA [facility]ED [facility] A 07/29 Other Not Elsewhere Classified [facility] [facility]) [facility]([address]) OUTPATIENT [id number] DISCUSS BARIATR IC SURGERY VÍCTOR RODRIGUEZ 07/31 Released w/o Limitations [facility](A [facility] [place] [id number] [facility]) [facility]([place] [address] [facility]) OUTPATIENT [id number] Notes Entered by: Christiana FAM 05 Aug 2016 1252 ------- ------- ------- ------- -- case manage ent SOHAM FAM 08/05 Released w/o Limitations [facility](A [facility] 1B Griff) [facility]([place] [address] [facility]) TELE CONSULT [id number] Notes Entered by: hCristiana FAM 05 Aug 2016 1258 ------- ------- ------- ------- -- bladder concern s VÍCTOR RODRIUGEZ 08/05 [facility](A [facility] [address]) [facility] Medical [address]) TELE CONSULT [id number] Notes Entered by: VÍCTOR RODRIGUEZ 05 Aug 2016 1442 ------- ------- ------- ------- -- Parking Sticker JOSSELIN NEGRON 08/05 [facility] for [facility] [address]) [facility](Ana rosurgery ) OUTPATIENT [id number] 2ND OPINION , PRIOR DR DK Ross PT. RAYMOND KENNEDY 08/06 Released w/o Limitations [facility](N eurosur melissa) [facility]([address]) TELE CONSULT [id number] Notes Entered by: VÍCTOR RODRIGUEZ 06 Aug 2016 1508 ------- ------- ------- ------- -- Urine results DONNA REESE 08/06 [facility] [address]) [facility]([place] Cardiolog y Anticoagu lation) TELE CONSULT [id number] Notes Entered by: LUNA 07 Aug 2016 1442 ------- ------- ------- ------- -- End of Oral Anticoa gulatio n Therapy STEVEN BAXTER 08/07 [facility]([place] Cardiol ogy Anticoa gulatio n) [facility]([place] [facility] Interdisc iplinary) OUTPATIENT [id number] INTAKE DARRIAN LEACH 08/12 Released w/o Limitations [facility]([place] Pain Interdi sciplin bi) [facility]([place] [facility]) TELE CONSULT [id number] Notes Entered by: Vickie PEREZ 13 Aug 2016 1542 ------- ------- ------- ------- -- NETWORK RESULTS GI EGD 016 JO PEREZ 08/13 Other Not Elsewhere Classified [facility]) [facility](Arm y Medical Home F01B Griff) OUTPATIENT [id number] pain in back,ri bs and hips,fe ll last week VÍCTOR RODRIGUEZ 08/14 Released w/o Limitations [facility](A rmy Medical Home F01B [place]) [facility](Arm y Medical Home F01B Griff) TELE CONSULT [id number] Notes Entered by: VÍCTOR RODRIGUEZ 15 Aug 2016 1432 ------- ------- ------- ------- -- Follow- up VÍCTOR RODRIGUEZ 08/15 [facility](A [facility]my Medical Home F01B [place]) [facility](Uro logy) TELE CONSULT [id number] Notes Entered by: REJI DIAZ 19 Aug 2016 1427 ------- ------- ------- ------- -- DANYELL Cui 08/19 Released w/o Limitations [facility](U rology) [facility]([place] [facility]) TELE CONSULT [id number] Notes Entered by: SINTIA NAVARRETE 20 Aug 2016 0805 ------- ------- ------- ------- -- NETWORK RESULTS /US RUQ/DOS [id number]/ UPLOADE D INTO KHADAR RAMESH 08/20 Other Not Elsewhere Classified [facility] [facility]) [facility](Gen eral Surgery) OUTPATIENT [id number] Obesity , unspeci fied IAN LOPEZ 08/21 Released w/o Limitations [facility](G eneral Surgery ) [facility]([place] [facility]) TELE CONSULT [id number] Notes Entered by: BRANDT BATISTA 22 Aug 2016 1103 ------- ------- ------- ------- -- NETWORK RESULTS GI DIAGNOS TIC STUDIES / LABS DOS 12.9.20 16 BRANDT BATISTA 08/22 Other Not Elsewhere Classified [facility] [facility]) [facility]([place] Pain Interdisc iplinary) OUTPATIENT [id number] low back pain (INT EVAL) FROILAN MORRIS 08/27 Released w/o Limitations [facility]([place] Pain Interdi sciplin bi) [facility](Arm y Medical Home F01B Griff) TELE CONSULT [id number] JOSSELIN NEGRON 08/29 [facility]ment [facility] F01B Griff) [facility] ADMISSION RESULTING FROM [facility], DIRECT TO [facility] [id number] RAYMOND KENNEDY 09/01 DISCHARGED HOME [facility]([place] Weight Managemen t Case Managemen t) OUTPATIENT [id number] Notes Entered by: MARISELA CANALES 04 Sep 2016 1447 ------- ------- ------- ------- -- removal from bariatr ic pathway JOSE E CANALES 09/04 Released w/o Limitations [facility]([place] Weight Managem ent Case Managem ent) [facility] y Medical Home F01B Griff) TELE CONSULT [id number] Notes Entered by: GIANFRANCO MONTALVO 05 Sep 2016 0857 ------- ------- ------- ------- -- M[facility] Inpatie nt Follow Up GIANFRANCO MONTALVO 09/05 [facility](A [facility] F01B Griff) [facility](Arm y Medical Home F01B Griff) TELE CONSULT [id number] Notes Entered by: VÍCTOR RODRIGUEZ 05 Sep 2016 1117 ------- ------- ------- ------- -- ECHO Pain Report VÍCTOR RODRIGUEZ 09/05 [facility](A [facility] [address]) [facility] ER, DIRECT TO [id number] ARELI COUCH 09/08 DISCHARGED HOME [facility]([address]) TELE CONSULT [id number] Notes Entered by: GIANFRANCO MONTALVO 12 Sep 2016 0831 ------- ------- ------- ------- -- MAMC Inpatie nt Follow Up VÍCTOR RODRIGUEZ 09/12 [facility](A [address]) [facility]) TELE CONSULT [id number] Notes Entered by: GABY MOLINA 17 Sep 2016 1101 ------- ------- ------- ------- -- Br cancer hi risk f/u GABY MORE 09/17 [facility]) [facility]([address]) TELE CONSULT [id number] Notes Entered by: Christiana FAM 17 Sep 2016 1529 ------- ------- ------- ------- -- med refill SOHAM FAM 09/17 [facility](A [address]) [facility]) OUTPATIENT [id number] Med Review BRADY SAUCEDO 09/19 Released w/o Limitations [facility] F01B Griff) OUTPATIENT [id number] f/u hosp discect malorie/torrez inectom y L5 VÍCTOR RODRIGUEZ 09/19 Released w/o Limitations [facility](A [facility] [address]) [facility](Uro logy) OUTPATIENT [id number] hematur marcela OLIVE GIL 09/23 Released w/o Limitations [facility](U rology) [facility] Medical [address]) OUTPATIENT [id number] Notes Entered by: Christiana FAM 23 Sep 2016 1508 ------- ------- ------- ------- -- case managem ent SOHAM FAM 09/23 Released w/o Limitations [facility](A [facility] [address]) [facility]([address]) TELE CONSULT [id number] Notes Entered by: VÍCTOR RODRIGUEZ 24 Sep 2016 0717 ------- ------- ------- ------- -- SOHAM Nicholson 09/24 [facility] [address]) [facility](Ana rosurgery ) OUTPATIENT [id number] post-op f/u, DOS 08 September 2016 RAYMOND KENNEDY 09/24 Released w/o Limitations [facility](N eurosur melissa) [facility]([address]) TELE CONSULT [id number] Notes Entered by: Christiana FAM 24 Sep 2016 0943 ------- ------- ------- ------- -- SOHAM Trejo 09/24 [facility] [address]) [facility]([place] [employer] Floor Layer Oncology) OUTPATIENT [id number] 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 /VULVA CA IN 20/?H RT IESHA DAVALOS 09/30 Released w/o Limitations [facility]([place] [employer] Floor Layer Oncolog y) [facility] [place] [id number] [facility]) OUTPATIENT [id number] Notes Entered by: Christiana FAM 20 Oct 2016 1455 ------- ------- ------- ------- -- Case Managem ent SOHAM FAM 10/20 Released w/o Limitations [facility](A [facility] [place] [id number] [facility]) [facility]([address]) TELE CONSULT [id number] Notes Entered by: JOSSELIN NEGRON 28 Oct 2016 1504 ------- ------- ------- ------- -- Labs prior to apptj JOSSELIN NEGRON 10/28 Referred for Appointment [facility](A [address]) [facility](Ana rology Clinic) OUTPATIENT [id number] ADRIAN Mejia 10/29 Released w/o Limitations [facility](N eurolog y Clinic) [facility]([address]) OUTPATIENT [id number] F/U FOR IRON LEVELS IRINA GIL 11/05 Released w/o Limitations [facility](A [address]) [facility]([place] [facility]) TELE CONSULT [id number] Notes Entered by: SAHARA POLLACK 06 Nov 2016 0928 ------- ------- ------- ------- -- NETWORK RESULTS /GI/EGD BX/DOS 7/UPLOA DED IN LEESASAHARA DE PAZ 11/06 Other Not Elsewhere Classified [facility] [facility]) [facility]([place] Echo [facility]) TELE CONSULT [id number] Notes Entered by: Sal[place] LEACH 13 Nov 2016 1735 ------- ------- ------- ------- -- ECHO Pain TeleCon ference Present ation 04 Sep 2016 DARRIAN LEACH 11/14 [facility]([place] Echo Pain Telecon ference ) [facility] [address]) OUTPATIENT [id number] Notes Entered by: Christiana FAM 30 Dec 2016 1731 ------- ------- ------- ------- -- case managem ent SOHAM FAM 12/31 Released w/o Limitations [facility] [address]) [facility] [address]) TELE CONSULT [id number] Notes Entered by: Christiana FAM 08 Jan 2017 1427 ------- ------- ------- ------- -- radiolo gy request JOSSELIN Ryan 01/08 Referred for Appointment [facility] [address]) [facility] [address]) OUTPATIENT [id number] Pt fell, hurt her back PABLO HILLS 01/08 Released w/o Limitations [facility] [address]) [facility](Ana rosurgery ) OUTPATIENT [id number] had fall recentl y needs reeval. RAYMOND KENNEDY 01/20 Released w/o Limitations [facility](N eurosur melissa) [facility] C Health Outcome Managemen t) OUTPATIENT [id number] Notes Entered by: Christiana FAM 26 Jan 2017 1212 ------- ------- ------- ------- -- case managem ent SOHAM FAM 01/26 Released w/o Limitations [facility] Health Outcome Managem ent) [facility] [place] F01B Griff) TELE CONSULT [id number] Notes Entered by: JOSSELIN NEGRON 29 Jan 2017 0838 ------- ------- ------- ------- -- Imaging results ERIC JESSICA 01/29 [facility] Appointment [facility] [place] F01B Griff) [facility] F01B Griff) OUTPATIENT [id number] review dexa scan and labs JOSE RUANO V 02/06 Released w/o Limitations [facility](A [facility] [place] F01B Griff) [facility] Optometry ) OUTPATIENT [id number] eye exam PAU KOEHLER 02/13 Released w/o Limitations [facility] Optomet ry) [facility] Health Outcome Managemen t) OUTPATIENT [id number] Notes Entered by: Christiana FAM 17 Mar 2017 1106 ------- ------- ------- ------- -- case managem ent SOHAM FAM 03/17 [facility] Health Outcome Managem ent) [facility]([place] [address] Griff) TELE CONSULT [id number] Notes Entered by: Christiana FAM 19 Mar 2017 1640 ------- ------- ------- ------- -- referra l request for Bariatr ic Surgery ERIC JESSICA 03/19 Referred for Appointment [facility](A [facility] [place] F01B Griff) [facility] F01B Griff) OUTPATIENT [id number] referra villeda for bariatr ic surgery PABLO HILLS 03/23 Released w/o Limitations [facility](A [facility] [place] F01B Griff) [facility]) OUTPATIENT [id number] well woman exam/di scuss hormone MARIBELL Zazueta 03/26 Released w/o Limitations [facility]) [facility]) TELE CONSULT [id number] Notes Entered by: GABY MOLINA 01 Apr 2017 1447 ------- ------- ------- ------- -- 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 cancer 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 GABY MORE 04/01 [facility]) [facility] F01B [facility]) TELE CONSULT [id number] Notes Entered by: Christiana FAM 16 Apr 2017 1408 ------- ------- ------- ------- -- MED REFILL ERIC JESSICA 04/16 Medication Refill Forwarded [facility] y [facility] F01B [facility]) [facility] Health Outcome Managemen t) OUTPATIENT [id number] Notes Entered by: Christiana FAM 21 Apr 2017 0929 ------- ------- ------- ------- -- case managem ent SOHAM FAM 04/21 Released w/o Limitations [facility] Health Outcome Managem ent) [facility](Gen eral Surgery) OUTPATIENT [id number] Obesity , unspeci fied IAN LOPEZ 04/23 Released w/o Limitations [facility](G eneral Surgery ) [facility]a rology Clinic) OUTPATIENT [id number] ADRIAN Mejia 04/24 Released w/o Limitations [facility](N eurolog y Clinic) [facility] Case Managemen t) OUTPATIENT [id number] Bariatr JOSE E Mckinnon 04/28 Released w/o Limitations [facility]([place] Weight Managem ent Case Managem ent) [facility] Nutrition Clinic) OUTPATIENT [id number] healthy eating PATEL QUINN 04/28 Released w/o Limitations [facility] Nutriti on Clinic) [facility] Medical Home F01B Griff) OUTPATIENT [id number] Initial bariatr pathway PABLO HILLS 04/28 Released w/o Limitations [facility](A y Medical Home F01B Griff) [facility] igan Social Work Outpatien t) OUTPATIENT [id number] [facility] Support Group FRANSICO VEGA 04/29 Released w/o Limitations [facility](Rolando adigan Social Work Outpati ent) [facility] Medical [facility] F01B Griff) TELE CONSULT [id number] PABLO HILLS 05/05 [facility](A y Medical Home F01B Griff) [facility] igan [employer] Floor Layer Oncology) OUTPATIENT [id number] PT ESTEVAN BARTON 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, COULD NO RETRIEV E RCLIN, GEORGIE GREENE 05/19 Released w/o Limitations [facility](Rolando adigan [employer] Floor Layer Oncolog y) [facility] igan Weight Managemen t Case Managemen t) OUTPATIENT [id number] Notes Entered by: ZARINA IBRAHIM 21 May 2017 0752 ------- ------- ------- ------- -- [facility] DEVORAH ALCARAZ 05/21 Released w/o Limitations [facility]([place]ando ad[place] Weight Managem ent Case Managem ent) Procedures Combined list of: 1) Procedures from Department of Veterans Affairs facilities going back up to thelast 18 months, not all VA non-surgical procedures are included; 2) All procedures from the Department of Defense facilities. Procedure Procedure Type Code Date Perfomer Comments Sourc e TELE ASSESS & MGT SRV PROV QUAL [...] HEALTH AND BEHAVIOR INTERVENTION, EACH 15 MINUTES, [id number]; GROUP (2 OR MORE PATIENTS) 04/28 [facility] MEDICAL NUTRITION THERAPY; GROUP (2 OR MORE INDIVIDUAL(S)), EACH 30 MINUTES 04/28 [facility] COORDINATED CARE FEE, RISK ADJUSTED MAINTENANCE 04/28 [facility] INJECTION(S), ANESTHETIC AGENT(S) AND/OR STEROID; GREATER OCCIPITAL NERVE 04/24 [facility] PSYCHOTHERAPY, 60 MINUTES WITH PATIENT 04/23 [facility] PHYS/OTH QUALIFIED HEALTH LEAD RECOVERER QUALIFIED,EDUCATIO N,TRAIN,LICENSURE/ REGULATION (WHEN APPLICABLE) EDUC SER [...] NUMBER OF CONSTITUENTS; W/O MICRO, NON-AUTO 09/23 [facility] MEDICATION THERAPY MGT SERVICE(S) PROVIDED,A PHARMACISTWOOD F YAHAIRA-TO-FACE W PATIENT,WITH ASSESS & INTERVENE IF PROVIDED;EA ADDITION 15 MINUTES (LIST SEPARATELY IN ADDITION TO CODE FOR PRIM SERVICE) 09/19 [facility] COORDINATED CARE FEE, RISK ADJUSTED MAINTENANCE, LEVEL 3 09/16 [facility] INSPECTION OF LUMBOSACRAL JOINT, OPEN APPROACH 09/11 [facility] EXCISION OF LUMBOSACRAL DISC, OPEN APPROACH 09/11 [...] POSTOPERATIVE PERIOD REASON RELATED ORIGINAL PROCEDURE 09/09 [facility] LAMINOTOMY (HEMILAMINECTOMY), WITH DECOMPRESSION OF NERVE ROOT(S), INCLUDING PARTIAL FACETECTOMY, FORAMINOTOMY &/ EXCISION OF HERNIATED INTERVERTEBRAL DISC, REEXPLORATION, SINGLE INTERSPACE; LUMBAR 09/08 [facility] INJECTION, ONDANSETRON HCL, PER 1 MG 09/08 [facility] CASE MANAGEMENT, EACH 15 MINUTES 09/04 [facility] RELEASE LUMBAR NERVE, OPEN APPROACH 09/02 [facility] EXCISION OF LUMBOSACRAL DISC, OPEN APPROACH 09/02 [facility] CASE MANAGEMENT, EACH 15 MINUTES 09/02 [facility] LAMINECTOMY,FACETE CTOMY & FORAMINOTOMY (UNILATERAL OR BILATERAL W DECOMPRESSION OF SPINAL CORD,CAUDA EQUINA &/ NERVE ROOT[S],[EG,SPINAL OR LATERAL RECESS STENOSIS]),SINGLE VERTEBRAL SEGMENT;LUMBAR 09/02 [facility] INJECTION, ONDANSETRON HCL, PER 1 MG 09/01 [facility] PSYCHOTHERAPY, 60 MINUTES WITH PATIENT 08/26 [facility] PHYS/OTH QUALIFIED HEALTH LEAD RECOVERER QUALIFIED,EDUCATIO N,TRAIN,LICENSURE/ REGULATION (WHEN APPLICABLE) EDUC SER RENDERED TO PATS IN A GRP SETTING (EG,,OBESI TY,OR DIABETIC INSTRUCT) 08/21 [facility] CASE MANAGEMENT, EACH 15 MINUTES 08/20 [facility] PSYCHIATRIC DIAGNOSTIC EVALUATION WITH MEDICAL SERVICES 08/07 [facility] CASE MANAGEMENT, EACH 15 MINUTES 08/05 [facility] BRIEF EMOTIONAL/BEHAVIOR AL ASSESSMENT (EG, DEPRESSION INVENTORY, ATTENTION-DEFICIT/ HYPERACTIVITY DISORDER [ADHD] SCALE), WITH SCORING AND DOCUMENTATION, PER STANDARDIZED INSTRUMENT 08/04 [facility] PSYCHIATRIC DIAGNOSTIC EVALUATION 07/31 [facility] CASE MANAGEMENT, EACH 15 MINUTES 07/29 [facility] INJECTION(S), ANESTHETIC AGENT(S) AND/OR STEROID; GREATER OCCIPITAL NERVE 07/16 [facility] CASE MANAGEMENT, EACH 15 MINUTES 07/15 [facility] PNEUMOCOCCAL POLYSACCHARIDE VACCINE, 23-VALENT (PPSV23), ADULT OR [...] ADDITION TO CODE FOR PRIMARY PROCEDURE) 06/14 [facility] COORDINATED CARE FEE, RISK ADJUSTED MAINTENANCE 05/20 [facility] CASE MANAGEMENT, EACH 15 MINUTES 05/14 [facility] TELE ASSESS & MGT SRV PROV QUAL [...] SPECIMEN,WHEN PERFORMED,PERCUT;F IRST LESION,INCLUDING ULTRASOUND GUIDANCE 03/18 [facility] PHYS/OTH QUALIFIED HEALTH LEAD RECOVERER QUALIFIED,EDUCATIO N,TRAIN,LICENSURE/ REGULATION (WHEN APPLICABLE) EDUC SER RENDERED TO PATS IN A GRP SETTING (EG,,OBESI TY,OR DIABETIC INSTRUCT) 03/13 [facility] CASE MANAGEMENT, EACH 15 MINUTES 02/27 [facility] EDUCATION &TRAINING, PATIENT SELF-MGT QUALIFIED, NONPHYSICIAN HEALTH LEAD RECOVERER USING STDIZED CURRICULUM, JUFW-BD-NTKG W THE PATIENT (COULD INCL CAREGIVER/FAMILY) EA [...] HEALTH AND BEHAVIOR INTERVENTION, EACH 15 MINUTES, VMCE-DC-BVRA; FAMILY (WITH THE PATIENT PRESENT) 01/23 DoD HEALTH&BEHAV ASSESSMENT (EG, HEALTH-FOC CLINICAL INTERVIEW, BEHAVIORAL OBSERVATIONS, PSYCHOPHYSICOLOGIC AL MONITOR, HEALTH-ORIENT QUESTIONNAIRES), EA 15 MIN DTHN-JG-BNVM W THE PATIENT; INIT ASSESSMENT 01/22 [facility] [...] ASSISTIVE, ADAPTIVE, SUPPORTIVE OR PROTECTIVE EQUIPMENT 01/20 [facility] BED MOBILITY ASSESSMENT USING ASSISTIVE, ADAPTIVE, SUPPORTIVE OR PROTECTIVE EQUIPMENT 01/20 DoD RANGE OF MOTION AND JOINT INTEGRITY ASSESSMENT OF MUSCULOSKELETAL SYSTEM - LOWER BACK / LOWER EXTREMITY 01/20 [facility] MUSCLE PERFORMANCE ASSESSMENT OF MUSCULOSKELETAL SYSTEM - LOWER BACK / LOWER EXTREMITY USING ASSISTIVE, ADAPTIVE, SUPPORTIVE OR PROTECTIVE EQUIPMENT 01/20 [facility] RANGE OF MOTION AND JOINT INTEGRITY ASSESSMENT OF MUSCULOSKELETAL SYSTEM - UPPER BACK / UPPER EXTREMITY 01/20 [facility] MUSCLE PERFORMANCE ASSESSMENT OF MUSCULOSKELETAL SYSTEM - UPPER BACK / UPPER EXTREMITY USING ASSISTIVE, ADAPTIVE, SUPPORTIVE OR PROTECTIVE EQUIPMENT 01/20 [facility] TRANSFER TRAINING TREATMENT USING ASSISTIVE, ADAPTIVE, SUPPORTIVE OR PROTECTIVE EQUIPMENT 01/20 [facility] GROOMING/PERSONAL HYGIENE ASSESSMENT USING ASSISTIVE, ADAPTIVE, SUPPORTIVE OR PROTECTIVE EQUIPMENT 01/20 [facility] ERGONOMICS AND BODY MECHANICS ASSESSMENT USING ASSISTIVE, ADAPTIVE, SUPPORTIVE OR PROTECTIVE EQUIPMENT 01/20 [facility] BED MOBILITY TREATMENT USING ASSISTIVE, ADAPTIVE, SUPPORTIVE OR PROTECTIVE EQUIPMENT 01/20 [facility] INTRODUCTION OF OTHER THERAPEUTIC SUBSTANCE INTO SUBCUTANEOUS TISSUE, PERCUTANEOUS APPROACH 01/20 [facility] MOTOR FUNCTION ASSESSMENT OF NEUROLOGICAL SYSTEM - LOWER BACK / LOWER EXTREMITY 01/20 [facility] INTRODUCTION OF ANALGESICS, HYPNOTICS, SEDATIVES INTO PERIPHERAL VEIN, PERCUTANEOUS APPROACH 01/20 [facility] HEALTH&BEHAV ASSESSMENT (EG, HEALTH-FOC CLINICAL INTERVIEW, BEHAVIORAL OBSERVATIONS, PSYCHOPHYSICOLOGIC AL MONITOR, HEALTH-ORIENT QUESTIONNAIRES), EA 15 MIN CNBQ-AR-[id number] W THE PATIENT; INIT ASSESSMENT 01/17 [facility] INJECTION, MORPHINE SULFATE, UP TO 10 MG 01/13 [facility] Coordinated care fee, risk adjusted maintenance 02/18 SOHAM FAM [facility] Non-Physician Phone Call To Patient/Provider Brief (5-10min) Non-Physician Phone Call To Patient/Provider Brief (5-10min) [id number] 11/27 GLENDY SILVA [facility] Medical Nutrition Therapy Group (2 or More Individual(s)) Medical Nutrition Therapy Group (2 or More Individual(s)) [id number] 11/22 MANUEL MOSS [facility] Non-Physician Phone Call To Patient/Provider Brief (5-10min) Non-Physician Phone Call To Patient/Provider Brief (5-10min) [id number] GLENDY SILVA [facility] Non-Physician Phone Call To Patient/Provider Brief (5-10min) Non-Physician Phone Call To Patient/Provider Brief (5-10min) [id number] 09/13 AISHWARYA KLEIN [facility] Non-Physician Phone Call To Patient/Provider Brief (5-10min) Non-Physician Phone Call To Patient/Provider Brief (5-10min) [id number] 08/20 GLENDY SILVA [facility] Case Management, each 15 minutes 08/01 JOSR HAYES DoD Case Management, each 15 minutes 07/31 JOSR HAYES 45 minutes - review of records, completion and fax of UHCM&V CM referral, and documentation [facility] Determination Of Refractive State Determination Of Refractive State 34232 07/04 TERRELL WILLAMS [facility] Ophthalmological New Patient Start Comprehensive Care Ophthalmological New Patient Start Comprehensive Care [id number] 07/04 TERRELL WILLAMS [facility] Non-Physician Phone Call To Patient/Provider Brief (5-10min) Non-Physician Phone Call To Patient/Provider Brief (5-10min) [id number] 06/26 GLENDY SILVA [facility] Screening papanicolaou smear; obtaining, preparing and conveyance of cervical or vaginal smear to laboratory 06/25 ALL BERNAL [facility] Non-Physician Phone Call To Patient/Provider Brief (5-10min) Non-Physician Phone Call To Patient/Provider Brief (5-10min) [id number] 06/11 AISHWARYA KLEIN [facility] Non-Physician Phone Call To Patient/Provider Brief (5-10min) Non-Physician Phone Call To Patient/Provider Brief (5-10min) [id number] 05/03 ANGUS PEREZ [facility] Case Management, each 15 minutes 05/21 DEVORAH ALCARAZ Chart review, relay health, and documentation DoD Coordinated care fee, maintenance rate 05/21 DEVORAH ALCARAZ [facility] Health And Behav Intervention, Each 15 Min Grp (2 Or More) Health And Behav Intervention, Each 15 Min Grp (2 Or More) [phone] 04/29 FRANSICO VEGA [facility] Medical Nutrition Therapy Group (2 or More Individual(s)) Medical Nutrition Therapy Group (2 or More Individual(s)) [id number] 04/28 PATEL JARA [facility] Coordinated care fee, risk adjusted maintenance 04/28 JOSE E CANALES [facility] Case Management, each 15 minutes 04/28 JOSE E CANALES AG#1,5,1,17 [facility] Injection, onabotulinumtoxina , 1 unit 04/26 REGINA ADRIAN [facility] Nerve Block Greater Occipital 04/26 REGINAADRIAN [facility] Maldonado-Supervised Group Educational Services -Supervised Group Educational Services [id number] 04/[address]Supervised Services Provision Of Educational Supplies -Supervised Services Provision Of Educational Supplies [phone] 04/24 IAN LOPEZ Case Management, each 15 minutes 04/23 SOHAM FAM 2.5 hours for targeted assessment and coordination of services. [facility] Coordinated care fee, maintenance rate 04/23 SOHAM FAM Immunization Administration One Vaccine Immunization Administration One Vaccine 00068 03/27 PABLO HILLS Hepatitis A And Hepatitis B (Intramuscular Use) Adult Dosage Hepatitis A And Hepatitis B (Intramuscular Use) Adult Dosage 82855 03/27 [place] Hep A-Hep B; Series #: 1; 1.0 mL; IM; Left Arm; Mfg: EQO; Lot: [id number]; VIS given (Michael: 03/05/16; 03/05/16). [facility] Case Management, each 15 minutes 03/19 3 hours for targeted assessmetn and complex coordination of services. [facility] Coordinated care fee, risk adjusted maintenance 03/19 [facility] Determination Of Refractive State Determination Of Refractive State [id number] 02/13 CHAO OKEHLER [facility] Ophthalmological New Patient Start Comprehensive Care Ophthalmological New Patient Start Comprehensive Care [phone] 02/13 CHAO KOEHLER Coordinated care fee, risk adjusted maintenance 01/30 SOHAM FAM 3.5 hrs spent on coordination of care, targeted assessment, and emotional support. [facility] Case Management, each 15 minutes 01/30 SOHAM FAM Case Management, each 15 minutes 01/06 SOHAM FAM 4 hrs for targeted assessment, coordination of services, and careplan. [facility] Coordinated care fee, risk adjusted maintenance 01/06 SOHAM FAM Nerve Block Greater Occipital 10/30 ADRIAN TAPIA [facility] Injection, onabotulinumtoxina , 1 unit 10/30 ADRIAN TAPIA [facility] Case Management, each 15 minutes 10/22 SOHAM FAM 3 hours for targeted assessment, coordination of care, and followup phone calls. [facility] Coordinated care fee, risk adjusted maintenance 10/22 SOHAM FAM Coordinated care fee, risk adjusted maintenance 09/26 SOHAM FAM Case Management, each 15 minutes 09/26 SOHAM FAM 4 hrs for targeted assessment, 3 phone followups, complex coordination of services, and patient activation simple for education. [facility] Routine UA Without Microscopic Examination Routine UA Without Microscopic Examination 94943 09/23 DOUGIE DIAZ Cystoscopy (Diagnostic) Cystoscopy (Diagnostic) 76771 09/23 DOUGIE DIAZ Medication Management By Pharmacist Each Additional 15 Min Medication Management By Pharmacist Each Additional 15 Min [id number] 09/19 BRADY SAUCEDO Med Management By Pharmacist Initial 15 Min New Patient Med Management By Pharmacist Initial 15 Min New Patient [id number] 09/19 BRADY SAUCEDO Intervention And Counseling On Ce ation Of Tobacco Use Intervention And Counseling On Cessation Of Tobacco Use 4000F 09/19 BRADY SAUCEDO Case Management, each 15 minutes 09/17 SOHAM FAM 2 hrs spent doing inpatient hospital followup and coordination of services. [facility] Coordinated care fee, risk adjusted maintenance, Level 3 09/17 SOHAM FAM Case Management, each 15 minutes 09/05 SOHAM FAM 4 hours for inpatient hospital followup, complex coordination of services, Multi D meeting for pain mgmt, and 2 followup phone calls. [facility] Coordinated care fee, risk adjusted maintenance 09/05 SOHAM FAM Coordinated care fee, maintenance rate 09/04 JOSE E CANALES Case Management, each 15 minutes 09/04 JOSE E CANALES AG#2 [facility] Case Management, each 15 minutes 08/26 SOHAM FAM 3 hours for targeted assessment, coordination of services with , emotional support. [facility] Coordinated care fee, risk adjusted maintenance 08/26 SOHAM FAM Psychiatric Evaluation Review of Records and Reports Psychiatric Evaluation Review of Records and Reports 68116 08/21 IESHA LUONG The patient's available records (medication/pres criptions, relevant progress notes, and relevant labs) were reviewed outside of a face to face appointment for the purpose of aiding in treatment planning and/or development of diagnoses. [facility] Case Management, each 15 minutes 08/07 SOHAM FAM 3 hrs spent with patient for targeted assessments, followup phone calls X 3, complex coordination of services. [facility] Coordinated care fee, risk adjusted maintenance 08/07 SOHAM FAM Psychiatric Evaluation Comprehensive Examination Psychiatric Evaluation Comprehensive Examination 01885 07/31 YURIY LOPEZ Case Management, each 15 minutes 07/31 SOHAM FAM 3 hours for targeted assessment, complex coordination of care. [facility] Coordinated care fee, risk adjusted maintenance 07/31 SOHAM FAM Case Management, each 15 minutes 07/18 SOHAM FAM 4 hrs this week working on targeted assessment, complex coordination of services with multiple providers of care, multiple followup phone calls to patient, [facility] Coordinated care fee, risk adjusted maintenance, Level 3 07/18 SOHAM FAM Nerve Block Greater Occipital 07/16 ADRIAN TAPIA Injection, onabotulinumtoxina , 1 unit 07/16 ADRIAN TAPIA Psychiat Ther Indiv Interactive Approximately 45-50 Minutes 07/16 VÍCTOR CRUZ [facility] Case Management, each 15 minutes 07/16 SOHAM FAM 3 hours for targeted assessment, coordination of referrals, and emotional support for pain management and lack of function. [facility] Coordinated care fee, risk adjusted maintenance 07/16 SOHAM FAM [facility] Immunization Administration One Vaccine Immunization Administration One Vaccine 07110 07/09 VÍCTRO RODRIGUEZ [facility] Immunization Administration Each Additional Vaccine Immunization Administration Each Additional Vaccine 90366 07/09 VÍCTOR RODRIGUEZ 1. Patient denies feeling sick with fever 2. Patient denies having a serious reaction to a flu vaccine 3. Patient denies having [place] syndrom (GBS) 4. Patient denies having a [...] benefits and risks of the influenza vaccine. [facility] Tdap Vaccine Tdap Vaccine 90466 07/09 VÍCTOR RODRIGUEZ Tdap; Series #: 1; .5 mL; IM; Right Arm; Mfg: EQO; Lot: [id number]; VIS given (Michael: 10/10/14). [facility] Pneumococcal Polysaccharide Vaccine (Age 2Y+) Pneumococcal Polysaccharide Vaccine (Age 2Y+) 82893 07/09 VÍCTOR RODRIGUEZ Pneumococcal polysaccharide PPV23; Series #: 1; .5 mL; IM; Left Arm; Mfg: [employer] [place]; Lot: [id number]; VIS given (Michael: 12/08/14). [facility] Case Management, each 15 minutes 07/03 SOHAM FAM Targeted assessment, coordination of care, Multi D discussions. [facility] Coordinated care fee, risk adjusted maintenance 07/03 SOHAM FAM [facility] Psychiat Ther Indiv Interactive Approximately 45-50 Minutes 06/24 VÍCTOR CRUZ Case Management, each 15 minutes 05/22 SOHAM FAM 3 hours for targeted assessment and complex coordination of care, [facility] Coordinated care fee, risk adjusted maintenance 05/22 SOHAM FAM Case Management, each 15 minutes 05/15 SOHAM FAM 5 hours for comprehensive care to targeted/modifie d followup for pain, updated careplan, complex coordination of services for multiple referrals, individual emotional support to include LUKAS and Depression scoring. [facility] Coordinated care fee, risk adjusted maintenance 05/15 SOHAM FAM Non-Physician Phone Call To Patient/Provider Brief (5-10min) Non-Physician Phone Call To Patient/Provider Brief (5-10min) [id number] 04/14 KATHY GROVES [facility] Non-Physician Phone Call To Patient/Provider Brief (5-10min) Non-Physician Phone Call To Patient/Provider Brief (5-10min) [id number] 03/21 KATHY GROVES [facility] -Supervised Services Provision Of Educational Supplies -Supervised Services Provision Of Educational Supplies 30221 03/[address]Supervised Group Educational Services -Supervised Group Educational Services [id number] 03/13 GABY MORE [facility] Case Management, each 15 minutes 03/04 SOHAM FAM 3 hours with multiple f/u calls to patient, complex coordinaton of services with multiple specialties and appts needed, Mult D meeting with two providers of care. [facility] Coordinated care fee, risk adjusted maintenance 03/04 SOHAM FAM Medication Management By Pharmacist Each Additional 15 Min Medication Management By Pharmacist Each Additional 15 Min 14428 02/25 STEVEN BAXTER Med Management By Pharmacist Initial 15 Min New Patient Med Management By Pharmacist Initial 15 Min New Patient 61601 02/25 STEVEN BAXTER Preventive Medicine Anticoagulant Therapy Warfarin Preventive Medicine Anticoagulant Therapy Warfarin 4012F 02/25 SETVEN BAXTER Patient Counseling Medical Management Individual Patient Patient Counseling Medical Management Individual Patient [id number] 02/25 STEVEN BAXTER Case Management, each 15 minutes 02/21 SOHAM FAM 3 hrs spent doing Transitional Care post discharge from hospital, multi D with several providers of care, patient teaching/activat ion regarding anticoagulation therapy to assess understanding, and coordination of service. [facility] Coordinated care fee, risk adjusted maintenance, Level 3 02/21 SOHAM FAM Case Management, each 15 minutes 02/18 SOHAM FAM 5 hrs spent on the following: Initial Assessment, Face To Face Health Care Goal Planning, Complex Coordination of a Service with multiple specialties, Risk Assessment, Hospital Discharge, [facility] No data available for this section Ambul[facility] ry Pharmacy Social History Combined list of available smoking, tobacco, and other social history from [facility] and [facility] facilities. Social History Type Response Date Comment Sourc e Smoking Status Former smoker, quit more than 30 days ago 02/25/2018 Unknown Organization Sex Representation Female (finding) 05/22/2017 Unknown Organization This section is an empty social history section. [facility] Sexual Orientation Ambula tory Pharmacy Gender identity [...] from:Title : Neurology Office Visit Note Author: REGINANORBERTGOPAL Date: 02/26/18 Cervico-occipital neuralgia 1. H eadaches. [...] spent 21 minutes of my 40 minutes [id number] with the patient discussing the examination, therapy, [...] well. MD NICCI Cox, Interventional Neuroradiology Staff Ordered: onabotulinumtoxinA, 200 units, IntraMuscular, Injection, Once, First Dose: 02/25/2018 16:00:00 PDT, Stop Date: 02/25/2018 16:00:00 PDT CHEMODEN,1 EXT;EA ADD,1-4 [facility] 69705 N Block Inj, Occipital 69467 Common migraine without aura Ordered: onabotulinumtoxinA, 200 units, IntraMuscular, Injection, Once, First Dose: 02/25/2018 16:00:00 PDT, Stop Date: 02/25/2018 16:00:00 PDT [facility] Migraine 98855 Extracted from:Title: Office Clinic Note Author: JACOBY JONAS Date: 01/26/18 1. D evice status Ordered: Ankle foot orthosis, ankle gauntlet L1902 Foot, arch support, removable, premolded, longitudinal L3040 Orthotic Mgmt+Trainj Uxtr Lxtr+/Trnk Ea 15 Min 99541 2. T ibialis tendonitis Ordered: Ankle foot orthosis, ankle gauntlet L1902 Foot, arch support, removable, premolded, longitudinal L3040 Orthotic Mgmt+Trainj Uxtr Lxtr+/Trnk Ea 15 Min 67223 3. T ibialis tendonitis Ordered: Ankle foot orthosis, ankle gauntlet L1902 Foot, arch support, removable, premolded, longitudinal L3040 Orthotic Mgmt+Trainj Uxtr Lxtr+/Trnk Ea 15 Min 87467 Extracted from:Title: Neurology Office Visit Note Author: [...] spent 21 minutes of my 40 minutes [id number] with the patient discussing the examination, therapy, [...] tolerated the procedure well. Adrian Tapia MD [facility], Interventional Neuroradiology Ordered: Bilateral N Block Inj, Occipital 34596 Office Visit Level 4 Est 51317 Extracted from:Title: General Surgery Clinic Note Author: [...] understanding. Ordered: Office Visit Level 4 Est 56390 2. P endulous breast Bilateral. Will refer back to Plastics Clinic for further evaluation and treatment. Ordered: Office Visit Level 4 Est 30808 3. B ilateral foot pain Chronic. Will get bilateral foot xrays and will refer patient to Podiatry Clinic. patient is aware that her weight is a contributing factor. [place] APRN, AVIONICS INSTALLER Ordered: Office Visit Level 4 Est 40821 XR Foot 2 Views Bilateral Orders: lidocaine topical, 1 patches, Topical, Daily, Leave on for up to 12 hours within a 24 hour period (12 hours on, 12 hours off), # 30 patches, 5 total refill(s), [facility] pharmacy dispense (Rx) [Not filled] Medical Referral Request Medical Referral Request Medical Referral Request Extracted from:Title: Botox injections for migraine Author: NICHOLE AU Date: 12/03/17 1. C ommon migraine without aura OnabotulinumtoxinA(Botox) injections Lot #: [id number] Expiration Date: MAR 2020 Concentration: 0.1ml = 5 units, no EMG guidance Muscle Right ? L eft Procerus midline 5 Jewel Stringer 5 units ? 5 units Frontalis 5 [...] Date: 12/03/2017 15:00:00 PDT [facility] Musc Migraine 42778 Office Visit Level 2 Est 91144 Extracted from:Title: Clinical Pharmacy Note Bariatric Pathway [...] decreased. Recommend using calcium citrate. o M [facility] RYGB patients who require medication for [...] Ordered: Medication Therapy Each Additional 15 Min 41285 Medication Therapy Initial 15 Min New Patient 75132 Extracted from:Title: Neurology Office Visit Note Author: ADRIAN TAPIA Date: 07/24/17 Common migraine without aura Impression and Plan: 1. Headaches. Despite the poor interval, I will give Botox today. Since she has been on Botox for a while, I will try re-introducing Roseann as I discussed more triptan efficacy when [...] spent 21 minutes of my 40 minutes juhs-ui-qqgw with the patient discussing the examination, therapy, [...] # 30 tabs, 0 total refill(s), 08/20/2017, [facility] pharmacy dispense (Rx) [Not filled] XR Calcaneous Left 03/28/[address] [place] [address] Assessment and Plan Extracted from:Title : Neurology [...] spent 21 minutes of my 40 minutes [id number] with the patient discussing the examination, therapy, epidemiology, history, and natural course of the patient's condition to include the importance of sleep, weight loss, and stress avoidance; I also emphasized the need for regular q3 months dosing as well as the need for oral medications to help bridge the transient frequency increase between doses. T travis selby for allowing us to participate in [...] well. MD NICCI Cox, Interventional Neuroradiology Staff Ordered: onabotulinumtoxinA, 200 units, IntraMuscular, Injection, Once, First Dose: 02/25/2018 16:00:00 PDT, Stop Date: 02/25/2018 16:00:00 PDT CHEMODEN,1 EXT;EA ADD,1-4 [facility] 76358 N Block Inj, Occipital 31989 Common migraine without aura Ordered: onabotulinumtoxinA, 200 units, IntraMuscular, Injection, Once, First Dose: 02/25/2018 16:00:00 PDT, Stop Date: 02/25/2018 16:00:00 PDT [facility] Migraine 81794 Extracted from:Title: Office Clinic Note Author: JACOBY JONAS Date: 01/26/18 1. D evice status Ordered: Ankle foot orthosis, ankle gauntlet L1902 Foot, arch support, removable, premolded, longitudinal L3040 Orthotic Mgmt+Trainj Uxtr Lxtr+/Trnk Ea 15 Min 14674 2. T ibialis tendonitis Ordered: Ankle foot orthosis, ankle gauntlet L1902 Foot, arch support, removable, premolded, longitudinal L3040 Orthotic Mgmt+Trainj Uxtr Lxtr+/Trnk Ea 15 Min 15461 3. T ibialis tendonitis Ordered: Ankle foot orthosis, ankle gauntlet L1902 Foot, arch support, removable, premolded, longitudinal L3040 Orthotic Mgmt+Trainj Uxtr Lxtr+/Trnk Ea 15 Min 27134 Extracted from:Title: Neurology Office Visit Note Author: [...] spent 21 minutes of my 40 minutes nxrk-vw-rjmy with the patient discussing the examination, therapy, [...] tolerated the procedure well. Adrian Tapia MD [facility], Interventional Neuroradiology Ordered: Bilateral N Block Inj, Occipital 18165 Office Visit Level 4 Est 13055 Extracted from:Title: General Surgery Clinic Note Author: [...] understanding. Ordered: Office Visit Level 4 Est 45514 2. P endulous breast Bilateral. Will refer back to Plastics Clinic for further evaluation and treatment. Ordered: Office Visit Level 4 Est 61586 3. B ilateral foot pain Chronic. Will get bilateral foot xrays and will refer patient to Podiatry Clinic. patient is aware that her weight is a contributing factor. 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 L eft Procerus midline 5 Jewel Stringer 5 units ? 5 units Frontalis 5 [...] Date: 12/03/2017 15:00:00 PDT [facility] Migraine 43166 Office Visit Level 2 Est 99073 Extracted from:Title: Clinical Pharmacy Note Bariatric Pathway [...] decreased. Recommend using calcium citrate. o M [facility] patients who require medication for [...] Ordered: Medication Therapy Each Additional 15 Min 37780 Medication Therapy Initial 15 Min New Patient [id number] Extracted from:Title: Neurology Office Visit Note Author: [...] spent 21 minutes of my 40 minutes [id number] with the patient discussing the examination, therapy, [...] Neuroradiology Extracted from:Title: Heel Pain, LEFT Author: MARGARETRANDYJESUS Date: 07/20/17 1. H eel pain T x acute pain w/ naprosyn (pt has used before and causes no issue despite h/o allergy to toredol. X-ray today - R/O fx. If neg will consider heel cups or podiatry referral. Ordered: naproxen, 1 tabs, Oral, BID, # 30 tabs, 0 total refill(s), 08/20/2017, [facility] pharmacy dispense (Rx) [Not filled] XR Calcaneous Left 03/28/2025 [id number] [place] Functional Status Combined list of recent functional and cognitive assessments recorded at [facility] [employer] [facility] ([facility] Functional [place] Measurement (FIM) Scale: 1 = Total Assistance (Subject = 0% +), 2 = Maximal Assistance (Subject = 25% +), 3 = Moderate Assistance (Subject = 50% +), 4 = Minimal Assistance (Subject = 75% +), 5 = Supervision, 6 = Modified [place] (Device), 7 = Complete [place] (Timely, Safely). Assessment Date/Time Source Assessment Type Assessment Skill Assessment Score Assessment Details FUNCTIONAL 12/16/17 Home Dietary Supplements Captured Yes
--- NOTE | 2025-03-28 12:18 | CT_ITS ---
FINAL REPORT TECHNIQUE: Thin section axial images are obtained through the abdomen and pelvis after intravenous contrast. Reconstruction images were obtained from the axial data. Exam was performed using dose reduction techniques. CLINICAL HISTORY: lower abd pain / Hx abd surgeries COMPARISON: 01/28/2025 FINDINGS: LUNG BASES: Lung bases are clear. Heart size is normal. LIVER: Focal fatty change adjacent to the falciform ligament. Liver otherwise homogeneous. No focal lesion. GALLBLADDER/BILIARY SYSTEM: Gallbladder is absent. No gallstones. No biliary dilatation. SPLEEN: Small hypodense lesion in the lower pole of the spleen, stable. PANCREAS: Unremarkable. ADRENALS: Unremarkable. KIDNEYS/URETERS/BLADDER: No hydronephrosis, renal mass, or renal stone. Unremarkable urinary bladder. GI TRACT: Patient again noted to be status post gastric bypass. Wall thickening of the distal aspect of the [place] stomach with inflammatory changes between the proximal anastomosis and anterior wall of the excluded stomach. At the proximal anastomosis or may be small diverticulum. Small ulceration not excluded. Distal to this is wall thickening of the jejunum. Previously seen intussusception near the distal anastomosis is no longer present. Fluid-filled dilated small bowel loops are noted. Proximal portions of the colon are distended with fluid. Normal appendix. PELVIC ORGANS: Uterus absent. LYMPH NODES/RETROPERITONEUM/MESENTERY: No lymphadenopathy. No abdominal aortic aneurysm. ABDOMINAL WALL: The abdominal wall is intact. FREE FLUID: No ascites. BONES: No acute osseous abnormality. IMPRESSION: Persistent wall thickening of excluded stomach and persistent wall thickening of the jejunum at the proximal anastomosis presumed related to gastritis and enteritis. Possible diverticulum near the proximal anastomosis. Ulceration felt less likely but not excluded. Consider endoscopy or upper GI. Mild fluid distended proximal colon with fluid-filled dilated small bowel loops, enterocolitis not excluded. Reviewed, Interpreted and Dictated by Marcelina Valera MD Transcribed by Gloria Alegre Authenticated and [facility]
[2025-03-28 12:21] LABS: Hematocrit 39.3 % (37.0-47.0); Hemoglobin 13.1 g/dL (12.2-16.2); Immature Granulocytes % 0.2 %; Mean Corpuscular HGB Conc 33.3 g/dL (31.8-35.4); Mean Corpuscular Hemoglobin 29.9 pg (27.0-31.2); Mean Corpuscular Volume 89.7 fl (81-99); Nucleated Red Blood Cells % 0 %; Platelet Count 254 K/mm3 (142-424); Red Blood Count 4.38 M/mm3 (4.20-5.40); Red Cell Distribution Width-SD 44.0 fL; White Blood Count 10.6 K/mm3 (4.8-10.8)
--- NOTE | 2025-03-28 12:21 | ED_ITS ---
<Statement entered by Kamla Rosas MD - 03/29/25 15:42> I was consulted by the TRISTEN, and we discussed the complexity of the problems being addressed. I approved the treatment and management plan for this patient's care in the emergency department, thus performing a substantive portion of the medical decision making. Kamla Rosas MD, JOSE, FACEP Discharge Plan Disposition Patient Disposition: Home, Self-Care Prescriptions Prescriptions: No Action hydroxyzine pamoate 50 mg capsule 50 mg PO Q4H PRN (Reason: .) Patient Comments: TAKE ONE CAPSULE BY MOUTH EVERY 4 HOURS NEEDED quetiapine 100 mg tablet 100 mg PO HS Patient Comments: TAKE ONE TABLET BY MOUTH AT BEDTIME Linzess 145 mcg capsule 145 mcg PO DAILY Qty: 30 12RF Rx Instructions: Please take 1 capsule p.o. every morning (30 to 60 minutes prior to eating) pregabalin 200 mg capsule 200 mg PO BID Injectafer 50 mg iron/mL solution 750 mg IV Q7D estradiol [Estrace] 0.01 % (0.1 mg/gram) cream 0.25 appful vaginal .twice weekly Qty: 42.5 2RF Rx Instructions: please dispose of the applicator. Please apply a blueberry amount every night for two weeks. After this please apply twice a week for maintenance. lorazepam 1 mg tablet 1 mg PO BID PRN (Reason: abdominal pain) Qty: 60 4RF Rx Instructions: 1/2 to 1 tablet by mouth twice daily as needed for abdominal pain metoclopramide HCl [Reglan] 10 mg tablet 10 mg PO Q6H PRN (Reason: nausea and vomiting) Qty: 20 0RF esomeprazole magnesium 20 mg capsule,delayed release(DR/EC) 20 mg PO DAILY 56 Days Qty: 56 1RF Referrals Follow up/Referrals: Rupa Hicks APRN [Primary Care Provider, Family Practice] - See instructions Activity Restrictions/Add. Instructions Additional Instructions/Restrictions: Today you were evaluated in the emergency department, your CT did not show any acute findings however recommends that you have a endoscopy performed. Please call GI as we discussed for follow-up appointment. Please return to the ED for any worsening of your condition. Clinical Impressions Clinical Impression: Abdominal pain Instructions Patient Instructions: DI for Acute Abdominal Pain Print Language Print Language: Turkmen Discharge ED Provider: Kamla Rosas General Adult HPI General Chief complaint: Abdominal Pain Stated complaint: abdomen pain,blood in stool,fever, Time Seen by Provider: 03/28/25 12:13 Mode of Arrival: Wheelchair Source of Information: Patient Description of Symptoms (Recalled from ER Triage Doc. by RN): pt reports severe absominal pain x3 days. blood in stool. has a history of GI bleed. History of Present Illness HPI narrative: patient is a 39-year-old female PMHx history of bariatric surgery in 2020 with multiple postop complications, peptic ulcers, GI bleed, gastroenteritis, chronic pain, HTN, history of A-fib, GERD, depression, who presents to the ED for lower abdominal pain and states she has had blood in her stool for the past 2 days. Related Data Home Medications ?Medication ?Instructions ?Recorded ?Confirmed pregabalin 200 mg capsule 200 mg PO BID RLS 02/05/21 0 02/06/25 hydroxyzine pamoate 50 mg capsule 50 mg PO Q4H PRN . 1 09/18/23 02/06/25 quetiapine 100 mg tablet 100 mg PO HS 07/18/24 Previous Rx's ?Medication ?Instructions ?Recorded linaclotide 145 mcg capsule 145 mcg PO DAILY #30 caps 08/31/24 (Linzess) ferric carboxymaltose 50 mg 750 mg (15 mL) IV Q7D 2 do ses 11/02/24 iron/mL intravenous solution (Injectafer) estradiol 0.01% (0.1 mg/gram) 0.25 appful vaginal .twi ce weekly 01/10/25 vaginal cream (Estrace) #42.5 grams esomeprazole magnesium 20 mg 20 mg PO DAILY 8 weeks #5 6 caps 01/28/25 capsule,delayed release metoclopramide HCl 10 mg tablet 10 mg PO Q6H PRN nause a and 01/28/25 (Reglan) vomiting #20 tabs lorazepam 1 mg tablet 1 mg PO BID PRN abdominal pa in #60 03/07/25 tabs Allergies Allergy/AdvReac Type Severity Reaction Status Date / Time hydromorphone (From Dilaudid) Allergy Intermediate Unknown Verified 01/10/25 14:43 allergy reaction NSAIDS (Non-Steroidal Allergy Unknown Unknown Verified 01/10/25 14:43 Anti-Inflamma allergy reaction lactose AdvReac Mild Nausea Verified 01/10/25 14:43 cilantro Allergy Severe throat and Uncoded 01/10/25 14:43 tongue swells, hives on face [facility] Disclaimer: The information contained in this section may have been updated after the patient was seen, as this information can be updated by other users. Medical History (Updated 03/28/25 @ 15:04 by Roxana Huntley APRN) Chronic pain Encounter for routine gynecological examination Chronic upper abdominal pain Nausea vomiting and diarrhea Anxiety Psychiatric care Severe anxiety Peptic ulcer disease Edema Chronic low back pain Right shoulder pain Dizziness Atypical chest pain Nausea and vomiting Occult blood positive stool Atypical angina Diarrhea Abnormal result of cardiovascular function study Encounter for pre-operative cardiovascular clearance Abdominal pain Flu vaccine need Community acquired pneumonia Community acquired bacterial pneumonia Synovitis of right foot Morbid obesity with BMI of 40.0-44.9, adult Multiple joint pain Synovitis of left foot Metatarsus adductus of both feet Hypokalemia SHAUN (acute kidney injury) Class 3 severe obesity due to excess calories in adult Gastroenteritis Left ankle instability Metatarsus adductus of left foot Gastrocnemius equinus of left lower extremity Posterior tibial tendon dysfunction (PTTD) of left lower extremity Obesity Leukocytosis Acute renal insufficiency Hypokalemia Near syncope Gastroenteritis History of DVT (deep vein thrombosis) Palpitations Dizziness Ex-smoker Preoperative clearance Dyspnea Bilateral hip pain Chest pain Chest pain Pre-syncope Acute chest pain Acute upper GI bleed Headache Abdominal pain Exposure to hepatitis C Head ache Chronic nausea Chest pain Diarrhea Chest pain, non-cardiac Chronic headaches Right upper quadrant abdominal pain Tachycardia Shortness of breath Syncope LEONORA (obstructive sleep apnea) Elevated left ventricular end-diastolic pressure (LVEDP) Edema History of left heart catheterization SVT (supraventricular tachycardia) Pulmonary embolism Osteoarthritis Migraine HTN (hypertension) HLD (hyperlipidemia) Heart murmur GERD (gastroesophageal reflux disease) DVT (deep venous thrombosis) Afib Asthma Arrhythmia Anxiety History of pulmonary embolism Surgical History History of total abdominal hysterectomy Status post foot surgery History of bariatric surgery History of exploratory laparotomy History of cholecystectomy History of lumpectomy of left breast H/O knee surgery History of esophageal surgery H/O foot surgery Previous back surgery Family History Mother Family history of cancer Grandmother Family history of cancer Other Family history of hypertension Kidney disease Social History (Updated 03/06/25 @ 15:42 by Sharmin Coyne RN) Smoking Status: Current every day smoker tobacco type: cigarettes packs per day: 4 second hand exposure: No alcohol intake: never substance use type: marijuana current occupational status: other Travel in the last 8 weeks?: None household members: spouse housing: house number of children: 0 current occupational exposures/hazards: No caffeine: No Other Medical History Have you received the Flu Vaccine for this season: No Have you received the Pneumonia Vaccine: No ROS Obtained: Yes Systems reviewed as appropriate & no additional complaints except as documented Physical Exam General General appearance: alert and in no apparent distress Head Head exam: atraumatic Eye Eye exam: Present PERRL and EOMI Chest Chest inspection: Present normal inspection Respiratory Respiratory exam: Present normal lung sounds bilaterally and respiratory distress Cardiovascular Cardiovascular exam: Present regular rate Abdominal Exam Abdominal exam: Present soft and tenderness (lower abd pain ) Extremities Exam Extremities exam: Present full ROM Back Exam Back exam: Present full ROM Neurological Exam Neurological exam: Present alert and oriented X3 Psychiatric Psychiatric exam: Present normal affect Skin Skin exam: Present warm and dry Medical Decision Making Medical Records Screening: Per USPSTF and CDC recommendations, given the prevalence of disease in our region, it is our hospital?s policy to screen for HIV and viral Hepatitis for all patients aged 18 and over and those with ongoing risk factors. Dinesh Inquiry Pt receiving controlled substance: No Vital Signs: 03/28/25 12:10 03/28/25 12:30 03/28/25 13:00 Temperature 98.1 F Temperature Source Oral Pulse Rate 75 79 Pulse Rate [Right] 79 Respiratory Rate 18 Blood Pressure 105/69 L 108/71 L Blood Pressure [Right Arm] 137/95 H Blood Pressure Mean [Right Arm] 109 02 Sat by Pulse Oximetry 100 96 96 Oxygen Delivery Method 03/28/25 13:30 03/28/25 14:01 03/28/25 14:30 Temperature Temperature Source Pulse Rate 73 70 69 Pulse Rate [Right] Respiratory Rate Blood Pressure 104/74 L 111/75 91/60 L Blood Pressure [Right Arm] Blood Pressure Mean [Right Arm] 02 Sat by Pulse Oximetry 99 96 99 Oxygen Delivery Method 03/28/25 14:59 03/28/25 15:00 03/28/25 15:02 Temperature Temperature Source Pulse Rate 66 67 68 Pulse Rate [Right] Respiratory Rate Blood Pressure 94/62 L 92/60 L 97/69 L Blood Pressure [Right Arm] Blood Pressure Mean [Right Arm] 02 Sat by Pulse Oximetry 98 100 100 Oxygen Delivery Method 03/28/25 15:29 Temperature 98.4 F Temperature Source Pulse Rate 75 Pulse Rate [Right] Respiratory Rate 18 Blood Pressure 97/69 L Blood Pressure [Right Arm] Blood Pressure Mean [Right Arm] 02 Sat by Pulse Oximetry Oxygen Delivery Method Room Air Lab Data Lab Results 03/28/25 12:07: WBC 10.6, RBC 4.38, Hgb 13.1, Hct 39.3, MCV 89.7, MCH 29.9, MCHC 33.3, RDW 13.5, Plt Count 254, MPV 9.2, Neut % (Auto) 50.0, Lymph % (Auto) 37.3, [place] % (Auto) 8.9, Eos % (Auto) 3.0, Baso % (Auto) 0.6, Neut # (Auto) 5.3, Lymph # (Auto) 3.9, [place] # (Auto) 0.9, Eos # (Auto) 0.3, Baso # (Auto) 0.1, Sodium 138, Potassium 3.8, Chloride 98, Carbon Dioxide 31 H, Anion Gap 12.8, BUN 15, Creatinine 0.70, Estimated Creat Clear 103, Estimated GFR 93, Est GFR ( Amer) 112, Glucose 89, Calcium 9.4, Total Bilirubin 0.5, AST 30, ALT 17, Alkaline Phosphatase 117, Total Protein 8.2, Albumin 4.7, Globulin 3.5 H, Albumin/Globulin Ratio 1.3, Lipase 84 03/28/25 15:33: Urine HCG, Qual Negative 03/28/25 12:07 03/28/25 12:07 Orders (Tests/Meds): ED MEDICATIONS Discontinued Medications Generic Name Dose Route Start Last Admin Trade Name Freq PRN Reason Stop Dose Admin Sodium Chloride 1,000 mls @ 999 mls/hr 03/28/25 12:18 03/28/25 12:40 Sod Chlor 0.9% 1000ml Bag IV 03/28/25 13:18 999 mls/hr .Q1H1M ONE Administration Iopamidol 75 ml 03/28/25 13:05 03/28/25 13:06 Iopamidol-370 (76%);100ml Bottle IV 03/28/25 13:06 75 ml ONCE ONE Administration Morphine Sulfate 4 mg 03/28/25 12:19 03/28/25 12:40 Morphine 4mg/Ml Syringe IV 03/28/25 12:20 4 mg ONCE ONE Administration Morphine Sulfate 4 mg 03/28/25 14:18 03/28/25 14:23 Morphine 4mg/Ml Syringe IV 03/28/25 14:19 4 mg ONCE ONE Administration Ondansetron HCl 4 mg 03/28/25 12:19 03/28/25 12:39 Ondansetron 4mg/2ml Vial IV 03/28/25 12:20 4 mg ONCE ONE Administration Sodium Chloride 10 ml 03/28/25 13:05 03/28/25 13:06 Sodium Chloride 0.9% 10ml Syr (Rad Only) IV 03/28/25 13:06 10 ml ONCE ONE Administration ORDERS Category Date Time Status CT abdomen pelvis w con Stat Cat Scan 03/28/25 12:18 Completed CMP [Comprehensive Metabolic Panel] Stat Lab 03/28/25 12:07 Completed Complete Blood Count Auto Diff Stat Lab 03/28/25 12:07 Completed Lipase Stat Lab 03/28/25 12:07 Completed Urine , HCG Qual. Stat Lab 03/28/25 15:33 Completed Medical Decision Narrative: In summary, patient is a 39-year-old female PMHx history of bariatric surgery in 2020 with multiple postop complications, peptic ulcers, GI bleed, gastroenteritis, chronic pain, HTN, history of A-fib, GERD, depression, who presents to the ED for lower abdominal pain and states she has had blood in her stool for the past 2 days. Patient reports that yesterday she experienced nausea and vomiting, no hematochezia. Patient states she has not taken anything for pain prior to arrival, denies any allergies to medication. Denies fever, chills, body aches, headache, chest pain, shortness of breath, dysuria. Upon initial evaluation patient appears uncomfortable, she is alert and oriented, hemodynamically stable. Physical exam remarkable for soft abdomen, lower abdominal tenderness. Differential diagnosis include GI bleed, infectious process, sepsis, mesenteric ischemia, postop complications, among others. Discussed with patient we will proceed with labs, imaging. She will be symptomatically managed with IV fluids, morphine and Zofran. Labs reviewed. CBC unremarkable for any leukocytosis, stable H&H. CMP unremarkable for any actionable abnormalities. Lipase normal 84. Final read of the CT abdomen pelvis remarkable for persistent wall thickening of the jejunum and proximal anastomosis likely related to gastritis and enteritis. Advises to consider upper GI or endoscopy. Mild fluid-filled distended proximal colon with fluid dilated small bowel loops enterocolitis not excluded. Upon reassessment, patient states her pain has improved. We discussed the need for follow-up and need for GI, she states she will call the office tomorrow to make a follow-up appointment. We discussed return precautions to the ED and patient verbalized understanding. She remains hemodynamically stable and ambulatory upon discharge. Critical Care Critical Care Time Critical Care Time: No
[2025-03-28 12:24] LABS: Chloride 98 mmol/L (98-107)
[2025-03-28 12:25] LABS: Albumin Level 4.7 g/dl (3.5-5.0); Potassium 3.8 mmoL/L (3.5-5.1); Sodium 138 mmol/L (136-145)
[2025-03-28 12:27] LABS: Blood Urea Nitrogen 15 mg/dl (7-17); Creatinine Clearance Estimated 103 mL/min (50-200); Creatinine,Serum 0.70 mg/dl (0.52-1.04); Estimated Glomerular Filt Rate 93 ml/min (>60); GFR (African American) 112 ML/MIN (>60)
[2025-03-28 12:28] LABS: Alanine Aminotransferase 17 U/L (12-78); Albumin/Globulin Ratio 1.3 (1.1-1.8); Alkaline Phosphatase 117 U/L (38-126); Anion Gap 12.8 mEq/L (5-15); Aspartate Amino Transferase 30 U/L (14-36); Bilirubin,Total 0.5 mg/dl (0.2-1.3); Calcium 9.4 mg/dl (8.4-10.2); Carbon Dioxide 31 mmol/L (22.0-30.0); Globulin 3.5 g/dL (1.3-3.2); Glucose 89 mg/dl (74-100); Total Protein,Serum 8.2 g/dl (6.3-8.2)
[2025-03-28] MEDS: ONDANSETRON 4MG/2ML VIAL 4 MG IV (12:39)
[2025-03-28] MEDS: MORPHINE 4MG/ML SYRINGE 4 MG IV ×2 (12:40→14:23)
[2025-03-28] MEDS: 0.9 % SODIUM CHLORIDE 1000ML 1,000 ML 999 ML IV (12:40)
[2025-03-28 12:47] LABS: Lipase 84 U/L (23-300)
[2025-03-28] MEDS: IOPAMIDOL-370 (76%);100ML BOTTLE 75 ML IV (13:06)
[2025-03-28] MEDS: SODIUM CHLORIDE 0.9% 10ML SYR (RAD ONLY) 10 ML IV (13:06)
[2025-03-28 15:42] LABS: Urine Pregnancy, HCG Qual. Negative (Negative)
== END 2025-03-28 15:30 | disposition home or self-care (01) ==
PROVIDERS: Nurse Practitioner; Emergency Provider Student in an Organized Health Care Education/Training Program; PCP Nurse Practitioner Family
DX: R10.30 Lower abdominal pain, unspecified (principal); K52.9 Noninfective gastroenteritis and colitis, unspecified; F17.210 Nicotine dependence, cigarettes, uncomplicated; Z98.84 Bariatric surgery status
CPT/HCPCS: 74177; 80053; 81025; 83690; 85025; 96361; 96374; 96375; 96376; 99285; J2270; J2405; J7030; Q9967

== ENCOUNTER 2025-04-07 09:06 | Day surgery (SDC) | payer OTHER, SELFPAY ==
--- NOTE | 2025-04-07 09:11 | EXP.PM.HP ---
History of Present Illness *Admission Date: 04/07/25 *Reason for visit:: Intrathecal refill; DDD *History of present illness: Same [facility] Disclaimer: The information contained in this section may have been updated after the patient was seen, as this information can be updated by other users. Medical History (Updated 03/28/25 @ 15:04 by Roxana Huntley APRN) Chronic pain Encounter for routine gynecological examination Chronic upper abdominal pain Nausea vomiting and diarrhea Anxiety Psychiatric care Severe anxiety Peptic ulcer disease Edema Chronic low back pain Right shoulder pain Dizziness Atypical chest pain Nausea and vomiting Occult blood positive stool Atypical angina Diarrhea Abnormal result of cardiovascular function study Encounter for pre-operative cardiovascular clearance Abdominal pain Flu vaccine need Community acquired pneumonia Community acquired bacterial pneumonia Synovitis of right foot Morbid obesity with BMI of 40.0-44.9, adult Multiple joint pain Synovitis of left foot Metatarsus adductus of both feet Hypokalemia SHAUN (acute kidney injury) Class 3 severe obesity due to excess calories in adult Gastroenteritis Left ankle instability Metatarsus adductus of left foot Gastrocnemius equinus of left lower extremity Posterior tibial tendon dysfunction (PTTD) of left lower extremity Obesity Leukocytosis Acute renal insufficiency Hypokalemia Near syncope Gastroenteritis History of DVT (deep vein thrombosis) Palpitations Dizziness Ex-smoker Preoperative clearance Dyspnea Bilateral hip pain Chest pain Chest pain Pre-syncope Acute chest pain Acute upper GI bleed Headache Abdominal pain Exposure to hepatitis C Head ache Chronic nausea Chest pain Diarrhea Chest pain, non-cardiac Chronic headaches Right upper quadrant abdominal pain Tachycardia Shortness of breath Syncope LEONORA (obstructive sleep apnea) Elevated left ventricular end-diastolic pressure (LVEDP) Edema History of left heart catheterization SVT (supraventricular tachycardia) Pulmonary embolism Osteoarthritis Migraine HTN (hypertension) HLD (hyperlipidemia) Heart murmur GERD (gastroesophageal reflux disease) DVT (deep venous thrombosis) Afib Asthma Arrhythmia Anxiety History of pulmonary embolism Surgical History History of total abdominal hysterectomy Status post foot surgery History of bariatric surgery History of exploratory laparotomy History of cholecystectomy History of lumpectomy of left breast H/O knee surgery History of esophageal surgery H/O foot surgery Previous back surgery Family History Mother Family history of cancer Grandmother Family history of cancer Other Family history of hypertension Kidney disease Social History (Updated 03/06/25 @ 15:42 by Sharmin Coyne RN) Smoking Status: Current every day smoker tobacco type: cigarettes packs per day: 4 second hand exposure: No alcohol intake: never substance use type: marijuana current occupational status: other Travel in the last 8 weeks?: None household members: spouse housing: house number of children: 0 current occupational exposures/hazards: No caffeine: No Have you lived/traveled outside [place] in past 30 days?: No Contact w/someone who lives/traveled outside [place] past 30 days?: No Exposure to someone with infectious disease in past 14 days?: No Do you have a fever (greater than 100.4 F or 38 C)?: No Have you tested positive for COVID-19?: No Exposed to someone with COVID-19 in past 14 days?: No Do you have a sore throat?: No Do you have a cough?: No Do you have any weakness?: No Do you have any diarrhea?: No Are you experiencing any unusual bleeding?: No Do you have any muscle aches/pain?: No Do you have any abdominal pain?: No Are you experiencing loss of taste or smell?: No Other Medical History Have you received the Flu Vaccine for this season: No Have you received the Pneumonia Vaccine: No Meds Home Medications and Allergies Home Medications ?Medication ?Instructions ?Recorded ?Confirmed ?Type pregabalin 200 mg capsule 200 mg PO BID RLS 02/05/21 02/06/25 History hydroxyzine pamoate 50 mg capsule 50 mg PO Q4H PRN . 07/18/24 02/06/25 History quetiapine 100 mg tablet 100 mg PO HS 07/18/24 02/06/25 History linaclotide 145 mcg capsule 145 mcg PO DAILY #30 caps 08/31/24 02/06/25 Rx (Linzess) ferric carboxymaltose 50 mg 750 mg (15 mL) IV Q7D 2 doses 11/02/24 02/06/25 Rx iron/mL intravenous solution (Injectafer) estradiol 0.01% (0.1 mg/gram) 0.25 appful vaginal .twice weekly 01/10/25 02/06/25 Rx vaginal cream (Estrace) #42.5 grams esomeprazole magnesium 20 mg 20 mg PO DAILY 8 weeks #56 caps 01/28/25 02/06/25 Rx capsule,delayed release metoclopramide HCl 10 mg tablet 10 mg PO Q6H PRN nausea and 01/28/25 02/06/25 Rx (Reglan) vomiting #20 tabs lorazepam 1 mg tablet 1 mg PO BID PRN abdominal pain #60 03/07/25 Rx tabs New Prescriptions to Start Prescriptions: Allergies Allergy/AdvReac Type Severity Reaction Status Date / Time hydromorphone (From Dilaudid) Allergy Intermediate Unknown Verified 01/10/25 14:43 allergy reaction NSAIDS (Non-Steroidal Allergy Unknown Unknown Verified 01/10/25 14:43 Anti-Inflamma allergy reaction lactose AdvReac Mild Nausea Verified 01/10/25 14:43 cilantro Allergy Severe throat and Uncoded 01/10/25 14:43 tongue swells, hives on face Exam *Routine HEENT Exam Head: Present normocephalic and atraumatic Eye: Present PERRL ENT: Present mucous membranes moist *Routine Neck Exam Neck: Present supple *Routine Respiratory Exam Respiratory: Present CTA bilaterally *Routine Cardiovascular Exam Cardiovascular: Present RRR *Routine Abdominal Exam Abdominal: Present soft *Routine Rectal Exam Rectal:: deferred *Routine Genitalia Exam Genitalia:: deferred Routine Back/Spine/Pelvis Exam Back/Spine: Present pain with flexion *Routine Skin Exam Skin: Present intact and warm *Routine Neurological Exam Neurological: Present alert and oriented X3 Routine Psychiatric Exam Psychiatric: Present normal affect and normal thought process
--- NOTE | 2025-04-07 09:12 | P.PCN_ITS ---
Procedure Date: 04/07/25 Time: 09:35 Anesthesiologist:: Karen Gracia APRN Complications:: None Pre-procedure Diagnosis:: Degenerative disc disease of lumbar spine with lumbar radiculopathy symptoms, chronic pain syndrome, migraines Post-procedure Diagnosis:: Same Indications for Procedure:: Patient is a pleasant 39-year-old female who presents today for intrathecal refill and reprogram. She rates her pain today 4 out of 10. Patient denies any new falls or injuries. She does state that she has been having some headaches but is related to a tooth but does feel like the Botox has still been very beneficial for her chronic migraines. Patient is currently managed with Morphine 2 mg/mL with a daily dose of 0.2897 mg/day. She denies any side effects. Her Dinesh has been reviewed and is appropriate. Physical Exam: General: Alert and oriented x3, no acute distress, pleasant and cooperative Lungs: Respirations even and unlabored, symmetrical chest expansion Eyes: PERRL Musculoskeletal: Flexion and extension of lumbar [spine] somewhat guarded secondary to pain, [antalgic gait noted] Neurological: Speech clear, no gross sensory deficit Procedure Details:: Informed consent was obtained and the risk and benefits of the procedure were explained to the patient. The patient had noninvasive monitoring placed including noninvasive blood pressure cuff and pulse oximeter. Patient's pump was interrogated. The area over the pump was cleansed with chlorhexidine as a cleansing solution. In sterile fashion the pump was accessed with a 22-gauge needle. Approximately 8.5 mls of the pump solution was removed and discarded appropriately. The pump was then refilled with 20 mL's of morphine 2 mg/mL. The needle was withdrawn and a bandage was placed over the puncture site. The infusion rate was reprogrammed and continued at her current dosage. The patient tolerated well with no complication. Plan and Disposition:: Patient tolerated the procedure well with no complications and was discharged neurologically intact. Patient will return to clinic on or before their next intrathecal refill date. We will see the patient back in the clinic at the next intrathecal refill. Cornel mora has been instructed to contact the clinic with any concerns before the next appointment. Dr. Jung has reviewed this note and agrees with this plan of care. This note was dictated using voice recognition software and make contain errors or omissions. -- It Is medically necessary for this patient to continue to have their intrathecal pump refilled at regular intervals. This patient had an intrathecal pain pump implanted after meeting criteria of chronic intractable pain for greater than 3 months and failing conservative treatments. Patient has committed and been compliant to the treatment plan and all planned follow up care. Since implantation of the intrathecal pain pump, the patient has had decreased pain and been more functional. Oral medications have been reduced including intake of oral opioids. Patient continues to do well with intrathecal therapy with decrease in pain symptoms and increase in functional status. Stopping intrathecal medications can lead to life threatening withdrawal, seizures, cardiac arrest, severe pain, and possible . Pumps that are not refilled at regular intervals can be damages and cause and need for replacement. We continually titrate dose and concentration to optimize pain relief and function. We are limited in concentration for certain drugs to safely deliver medications through the pump and stay within the recommendations from the Polyanalges[employer] Consensus Committee Guidelines. Depending on dose and concentration these pumps may need to be refilled sooner than 3 months as we titrate. A UDS is needed to verify patient's compliance with our office pain contract. This is ordered based off specific treatments related to chronic pain with the potential to abuse certain medications.
[2025-04-07 09:13] VITALS: BP 117/82; PULSE 81; RESP 18; O2SAT 98; BMI 20.5
[2025-04-07 09:33] VITALS: BP 105/66; PULSE 91; RESP 18; O2SAT 97
[2025-04-07 09:40] VITALS: BP 98/65; PULSE 91; RESP 18; O2SAT 97
== END 2025-04-07 09:40 | disposition home or self-care (01) ==
PROVIDERS: PCP Nurse Practitioner Family; Visit Provider Nurse Practitioner Family
DX: Z45.1 Encounter for adjustment and management of infusion pump (principal); M51.16 Intervertebral disc disorders with radiculopathy, lumbar region; G89.4 Chronic pain syndrome; G43.909 Migraine, unspecified, not intractable, without status migrainosus; I48.91 Unspecified atrial fibrillation; F41.9 Anxiety disorder, unspecified; Z86.718 Personal history of other venous thrombosis and embolism; K21.9 Gastro-esophageal reflux disease without esophagitis; E78.5 Hyperlipidemia, unspecified; I10 Essential (primary) hypertension; G47.33 Obstructive sleep apnea (adult) (pediatric); F17.210 Nicotine dependence, cigarettes, uncomplicated; Z88.6 Allergy status to analgesic agent; Z88.5 Allergy status to narcotic agent; Z91.011 Allergy to milk products; Z91.018 Allergy to other foods; Z79.899 Other long term (current) drug therapy
CPT/HCPCS: 62370

== ENCOUNTER 2025-07-03 14:17 | Emergency (ER) | payer OTHER, SELFPAY ==
[2025-07-03] VITALS (8 sets, daily range): BP systolic 110–133; BP diastolic 82–94; PULSE 78–106; RESP 16–18; TEMP 37.1; O2SAT 95–100; BMI 17.9
--- NOTE | 2025-07-03 14:28 | CT_ITS ---
FINAL REPORT TECHNIQUE: After the administration of intravenous contrast, axial images were obtained through the abdomen and pelvis by computed tomography. This study was performed with technique to keep radiation doses as low as reasonably achievable, (ALARA). Individualized dose reduction techniques using automated exposure control or adjustment of the MA and/or KV according to the patient's size were employed. CLINICAL HISTORY: h/o keena en y; severe abd pain and anoxrexia COMPARISON: 03/28/2025 FINDINGS: Abdomen: The lung bases are clear. Gallbladder is not visualized. The liver is normal in size and attenuation. The spleen is unremarkable. The adrenals are normal. The pancreas is unremarkable. The kidneys enhance appropriately. The aorta is normal in caliber. There is no free fluid or adenopathy. 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 Pelvis: The appendix is not identified. The urinary bladder is decompressed. There is no free fluid or adenopathy. There is streak artifact from an intrathecal pump in the left superior gluteal region. IMPRESSION: No acute intra-abdominal process. Reviewed, Interpreted and Dictated by Carrington Snyder MD Transcribed by Dahlia Calderon Authenticated and [facility]
--- NOTE | 2025-07-03 14:32 | HMH.EDGENADL ---
Discharge Plan Disposition Chief Complaint: Psychiatric Symptoms Prescriptions Prescriptions: No Action Linzess 145 mcg capsule 145 mcg PO DAILY Qty: 30 12RF Rx Instructions: Please take 1 capsule p.o. every morning (30 to 60 minutes prior to eating) estradiol [Estrace] 0.01 % (0.1 mg/gram) cream 0.25 appful vaginal .twice weekly Qty: 42.5 2RF Rx Instructions: please dispose of the applicator. Please apply a blueberry amount every night for two weeks. After this please apply twice a week for maintenance. lorazepam 1 mg tablet 1 mg PO BID PRN (Reason: abdominal pain) Qty: 60 4RF Rx Instructions: 1/2 to 1 tablet by mouth twice daily as needed for abdominal pain quetiapine 100 mg tablet See Rx Instructions .ROUTE .COMPLEX Qty: 30 5RF Dose Instruction: TAKE ONE TABLET BY MOUTH EVERY DAY AT BEDTIME Rx Instructions: TAKE ONE TABLET BY MOUTH EVERY DAY AT BEDTIME hydroxyzine pamoate 50 mg capsule 50 mg PO Q8HP PRN (Reason: .) Qty: 90 0RF Referrals Follow up/Referrals: Rupa Hicks APRN [Primary Care Provider, Family Practice] - See instructions Clinical Impressions Clinical Impression: Protein malnutrition, Cachexia, Anorexia, History of Keena-en-Y gastric bypass, Chronic abdominal pain, Passive suicidal ideations Stand Alone Forms Stand Alone Forms: Transfer Record - ED Print Language Print Language: Senegalese Discharge ED Provider: Kamla Rosas General Adult HPI <Kalma Rosas MD - Last Filed: 07/03/25 14:38> General Chief complaint: Psychiatric Symptoms Stated complaint: mental health Time Seen by Provider: 07/03/25 14:18 History of Present Illness HPI narrative: Patient is a 40-year-old female who several years post Keena-en-Y gastric bypass by Dr. Velez in [place]. She states she has had severe and chronic abdominal pain associated with this has had known ulcerations in the past associated with this. She has been told by Dr. Maddox our music grapher that she needs to have a revision given the chronicity of this however she states that Dr. Velez when confronted with this stated while laughing that Dr. Maddox is not a bariatric surgeon. She also states that Dr. Velez told her that she needed a feeding tube however refused to give this to her as it would discolor her even though she said she would do it if it would stop her pain. Patient states that the pain is so bad at times that she feels like she wants to end her life currently she does not feel that way but states that the pain is so bad sometimes she does feel that way. States that she used to weigh 360 pounds now is down to 110 the pain is so bad that she cannot eat and that she has anorexia secondary to food aversion because every time she eats she has severe pain. Related Data Previous Rx's ?Medication ?Instructions ?Recorded linaclotide 145 mcg capsule 145 mcg PO DAILY #30 caps 08/31/24 (Linzess) estradiol 0.01% (0.1 mg/gram) 0.25 appful vaginal .twice weekly 01/10/25 vaginal cream (Estrace) #42.5 grams lorazepam 1 mg tablet 1 mg PO BID PRN abdominal pain #60 03/07/25 tabs quetiapine 100 mg tablet See Rx Instructions .Route 05/12/25 .COMPLEX #30 tabs hydroxyzine pamoate 50 mg capsule 50 mg PO Q8HP PRN . #90 caps 06/12/25 Allergies Allergy/AdvReac Type Severity Reaction Status Date / Time hydromorphone (From Dilaudid) Allergy Intermediate Unknown Verified 07/03/25 13:17 allergy reaction NSAIDS (Non-Steroidal Allergy Unknown Unknown Verified 07/03/25 13:17 Anti-Inflamma allergy reaction lactose AdvReac Mild Nausea Verified 07/03/25 13:17 cilantro Allergy Severe throat and Uncoded 07/03/25 13:17 tongue swells, hives on face [facility] <Kamla Rosas MD - Last Filed: 07/03/25 14:38> [facility] Disclaimer: The information contained in this section may have been updated after the patient was seen, as this information can be updated by other users. Medical History Neuropathy Hemorrhage of anastomosis due to ulcer Encounter to establish care Gastroenteritis Chronic pain Encounter for routine gynecological examination Chronic upper abdominal pain Nausea vomiting and diarrhea Anxiety Psychiatric care Severe anxiety Peptic ulcer disease Edema Chronic low back pain Right shoulder pain Dizziness Atypical chest pain Nausea and vomiting Occult blood positive stool Atypical angina Diarrhea Abnormal result of cardiovascular function study Encounter for pre-operative cardiovascular clearance Abdominal pain Flu vaccine need Community acquired pneumonia Community acquired bacterial pneumonia Synovitis of right foot Morbid obesity with BMI of 40.0-44.9, adult Multiple joint pain Synovitis of left foot Metatarsus adductus of both feet Hypokalemia SHAUN (acute kidney injury) Class 3 severe obesity due to excess calories in adult Gastroenteritis Intractable nausea and vomiting with inability to tolerate p.o. intake until the last 24 hours before discharge. Left ankle instability Metatarsus adductus of left foot Gastrocnemius equinus of left lower extremity Posterior tibial tendon dysfunction (PTTD) of left lower extremity Obesity Complicates all aspects of her care Leukocytosis Acute renal insufficiency Hypokalemia Near syncope Gastroenteritis History of DVT (deep vein thrombosis) Palpitations Dizziness Ex-smoker Preoperative clearance Dyspnea Bilateral hip pain Chest pain Chest pain Pre-syncope Acute chest pain Acute upper GI bleed Headache Abdominal pain Exposure to hepatitis C Head ache Chronic nausea Chest pain Diarrhea Chest pain, non-cardiac Chronic headaches Right upper quadrant abdominal pain Tachycardia Shortness of breath Syncope LEONORA (obstructive sleep apnea) Elevated left ventricular end-diastolic pressure (LVEDP) Edema History of left heart catheterization SVT (supraventricular tachycardia) Pulmonary embolism Osteoarthritis Migraine HTN (hypertension) HLD (hyperlipidemia) Heart murmur GERD (gastroesophageal reflux disease) DVT (deep venous thrombosis) Afib Asthma Arrhythmia Anxiety History of pulmonary embolism Surgical History History of total abdominal hysterectomy Status post foot surgery History of bariatric surgery History of exploratory laparotomy History of cholecystectomy History of lumpectomy of left breast H/O knee surgery History of esophageal surgery H/O foot surgery Previous back surgery Family History Mother Family history of cancer endometrial, cervical, breast Grandmother Family history of cancer cervical, breast Other Family history of hypertension Kidney disease Social History Smoking Status: Current every day smoker tobacco type: cigarettes packs per day: 4 second hand exposure: No alcohol intake: never substance use type: marijuana current occupational status: other Travel in the last 8 weeks?: None household members: spouse housing: house number of children: 0 current occupational exposures/hazards: No caffeine: No Have you lived/traveled outside US in past 30 days?: No Contact w/someone who lives/traveled outside US past 30 days?: No Exposure to someone with infectious disease in past 14 days?: No Do you have a fever (greater than 100.4 F or 38 C)?: No Have you tested positive for COVID-19?: No Exposed to someone with COVID-19 in past 14 days?: No Do you have a sore throat?: No Do you have a cough?: No Do you have any weakness?: No Do you have any diarrhea?: No Are you experiencing any unusual bleeding?: No Do you have any muscle aches/pain?: No Do you have any abdominal pain?: No Are you experiencing loss of taste or smell?: No Other Medical History Have you received the Flu Vaccine for this season: No Have you received the Pneumonia Vaccine: Yes <Kamla Rosas MD - Last Filed: 07/03/25 14:38> ROS Obtained: Yes All systems reviewed & no additional complaints except as documented Physical Exam <Kamla Rosas MD - Last Filed: 07/03/25 14:38> General General appearance: cachectic Respiratory Respiratory exam: Present normal lung sounds bilaterally Cardiovascular Cardiovascular exam: Present regular rate Abdominal Exam Abdominal exam: Present soft and tenderness (Diffuse tenderness primarily in the epigastric region) Neurological Exam Neurological exam: Present alert and oriented X3 Medical Decision Making <Kamla Rosas MD - Last Filed: 07/03/25 14:38> Medical Records Screening: Per USPSTF and CDC recommendations, given the prevalence of disease in our region, it is our hospital?s policy to screen for HIV and viral Hepatitis for all patients aged 18 and over and those with ongoing risk factors. Dinesh Inquiry Pt receiving controlled substance: No Vital Signs: 07/03/25 14:17 07/03/25 14:17 07/03/25 15:00 Temperature 98.7 F 98.7 F Temperature Source Oral Oral Pulse Rate 106 H 87 Pulse Rate [Right] 106 H Respiratory Rate 18 18 Blood Pressure 133/88 110/87 Blood Pressure [Right Arm] 133/88 Blood Pressure Mean [Right Arm] 103 Blood Pressure Source Automatic Cuff Blood Pressure Source [Right Arm] Automatic Cuff Blood Pressure Position Supine Blood Pressure Position [Right Arm] Supine 02 Sat by Pulse Oximetry 100 100 96 Oxygen Delivery Method Room Air Room Air 07/03/25 15:22 07/03/25 16:00 07/03/25 16:30 Temperature Temperature Source Pulse Rate 81 91 H Pulse Rate [Right] Respiratory Rate Blood Pressure 117/84 129/89 Blood Pressure [Right Arm] Blood Pressure Mean [Right Arm] Blood Pressure Source Blood Pressure Source [Right Arm] Blood Pressure Position Blood Pressure Position [Right Arm] 02 Sat by Pulse Oximetry 100 97 98 Oxygen Delivery Method Room Air 07/03/25 17:01 07/03/25 17:25 Temperature Temperature Source Pulse Rate 78 84 Pulse Rate [Right] Respiratory Rate Blood Pressure 122/87 128/94 H Blood Pressure [Right Arm] Blood Pressure Mean [Right Arm] Blood Pressure Source Blood Pressure Source [Right Arm] Blood Pressure Position Blood Pressure Position [Right Arm] 02 Sat by Pulse Oximetry 95 100 Oxygen Delivery Method Lab Data Lab Results 07/03/25 14:41: WBC 9.1, RBC 4.39, Hgb 12.5, Hct 39.3, MCV 89.5, MCH 28.5, MCHC 31.8, RDW 13.2, Plt Count 330, MPV 9.0, Neut % (Auto) 59.5, Lymph % (Auto) 28.3, Dawes % (Auto) 7.0, Eos % (Auto) 4.5, Baso % (Auto) 0.4, Neut # (Auto) 5.4, Lymph # (Auto) 2.6, Dawes # (Auto) 0.6, Eos # (Auto) 0.4, Baso # (Auto) 0.0, Sodium 140, Potassium 3.8, Chloride 101, Carbon Dioxide 31 H, Anion Gap 11.8, BUN 12, Creatinine 0.70, Estimated GFR 92, Est GFR ( Amer) 112, Glucose 82, Calcium 9.1, Phosphorus 3.5, Magnesium 1.8, Total Bilirubin 0.4, AST 29, ALT 12, Alkaline Phosphatase 125, Total Protein 8.4 H, Albumin 4.4, Globulin 4.0 H, Albumin/Globulin Ratio 1.1, Lipase 114 07/03/25 16:59: Lactate 0.8 07/03/25 14:41 07/03/25 14:41 Orders (Tests/Meds): ED MEDICATIONS Generic Name Dose Route Start Last Admin Trade Name Freq PRN Reason Stop Dose Admin Nicotine 21 mg 07/03/25 18:40 07/03/25 18:44 Nicotine 21mg/24hr Patch TD 08/02/25 18:39 21 mg DAILYP PRN Administration Nicotine Cravings Discontinued Medications Generic Name Dose Route Start Last Admin Trade Name Zahida PRN Reason Stop Dose Admin Lactated Ringer's 1,000 mls @ 999 mls/hr 07/03/25 14:30 07/03/25 16:46 Lactated Ringer's 1000 Ml Bag IV 07/03/25 15:30 Infused .Q1H1M CLARISA Infusion Iopamidol 75 ml 07/03/25 15:39 07/03/25 15:41 Iopamidol-370 (76%);100ml Bottle IV 07/03/25 15:40 75 ml ONCE ONE Administration Morphine Sulfate 4 mg 07/03/25 14:28 07/03/25 15:41 Morphine 4mg/Ml Syringe IV 07/03/25 14:29 4 mg ONCE ONE Administration Morphine Sulfate 4 mg 07/03/25 18:32 07/03/25 18:47 Morphine 4mg/Ml Syringe IV 07/03/25 18:33 4 mg ONCE ONE Administration Ondansetron HCl 4 mg 07/03/25 14:28 07/03/25 16:45 Ondansetron 4mg/2ml Vial IV 07/03/25 14:29 Not Given ONCE ONE ORDERS Category Date Time Status CT abdomen pelvis w con Stat Cat Scan 07/03/25 14:28 Completed Consult to Behavioral Health [CONS] Stat Cons 07/03/25 15:55 Active CBC w/Auto Diff [Complete Blood Count Auto Diff] Stat Lab 07/03/25 14:41 Completed CMP [Comprehensive Metabolic Panel] Stat Lab 07/03/25 14:41 Completed HIV Combo Stat Lab 07/03/25 14:41 Received Hepatitis C Ab Qual. W/ RFX Stat Lab 07/03/25 14:41 Received Lactic Acid Stat Lab 07/03/25 16:59 Completed Lipase Stat Lab 07/03/25 14:41 Completed Magnesium Stat Lab 07/03/25 14:41 Completed Phosphorous Stat Lab 07/03/25 14:41 Completed Prealbumin Stat Lab 07/03/25 16:59 Received Medical Decision Narrative: 40-year-old female with severe malnutrition and cachexia secondary to chronic anorexia associated with pain from food aversion and associated with her Keena-en-Y gastric bypass performed Dr. Velez many years ago with known history of anastomotic ulcers. She states that she has a very poor relationship with Dr. Velez given the fact that he has blown her off over the years as well as left at some of the other physician recommendations that she has been given in particular for the need for revision surgery. She has also tried to see other bariatric surgeons but they historically have not wanted to get involved in her case because she has been a patient of Dr. Velez's. She would like a second opinion. With regards to her emergent presentation today primarily I am concerned about her passive suicidal ideation as she states the pain is so bad that she does not want to live at times. She does not feel that way currently but I feel that we need to do more of a workup including looking for complications in particular she has a known history of anastomotic ulcerations which are very possible to be ongoing at the moment. Will get a CT scan basic blood work administer IV fluids pain medicine nausea medicine and reassess. We will attempt to discuss the case with another institution namely with Dr. Piper team at [facility] to see if they be willing to take her on as a patient despite her association with other surgeons in the past. Care will be transitioned to Dr. Ching at 3 PM. <Naima Ching, DO - Last Filed: 07/03/25 19:49> Vital Signs: 07/03/25 14:17 07/03/25 14:17 07/03/25 15:00 Temperature 98.7 F 98.7 F Temperature Source Oral Oral Pulse Rate 106 H 87 Pulse Rate [Right] 106 H Respiratory Rate 18 18 Blood Pressure 133/88 110/87 Blood Pressure [Right Arm] 133/88 Blood Pressure Mean [Right Arm] 103 Blood Pressure Source Automatic Cuff Blood Pressure Source [Right Arm] Automatic Cuff Blood Pressure Position Supine Blood Pressure Position [Right Arm] Supine 02 Sat by Pulse Oximetry 100 100 96 Oxygen Delivery Method Room Air Room Air 07/03/25 15:22 07/03/25 16:00 07/03/25 16:30 Temperature Temperature Source Pulse Rate 81 91 H Pulse Rate [Right] Respiratory Rate Blood Pressure 117/84 129/89 Blood Pressure [Right Arm] Blood Pressure Mean [Right Arm] Blood Pressure Source Blood Pressure Source [Right Arm] Blood Pressure Position Blood Pressure Position [Right Arm] 02 Sat by Pulse Oximetry 100 97 98 Oxygen Delivery Method Room Air 07/03/25 17:01 07/03/25 17:25 Temperature Temperature Source Pulse Rate 78 84 Pulse Rate [Right] Respiratory Rate Blood Pressure 122/87 128/94 H Blood Pressure [Right Arm] Blood Pressure Mean [Right Arm] Blood Pressure Source Blood Pressure Source [Right Arm] Blood Pressure Position Blood Pressure Position [Right Arm] 02 Sat by Pulse Oximetry 95 100 Oxygen Delivery Method Lab Data Lab results reviewed: Yes I reviewed the patient's lab results. Lab Results 07/03/25 14:41: WBC 9.1, RBC 4.39, Hgb 12.5, Hct 39.3, MCV 89.5, MCH 28.5, MCHC 31.8, RDW 13.2, Plt Count 330, MPV 9.0, Neut % (Auto) 59.5, Lymph % (Auto) 28.3, Dawes % (Auto) 7.0, Eos % (Auto) 4.5, Baso % (Auto) 0.4, Neut # (Auto) 5.4, Lymph # (Auto) 2.6, Dawes # (Auto) 0.6, Eos # (Auto) 0.4, Baso # (Auto) 0.0, Sodium 140, Potassium 3.8, Chloride 101, Carbon Dioxide 31 H, Anion Gap 11.8, BUN 12, Creatinine 0.70, Estimated GFR 92, Est GFR ( Amer) 112, Glucose 82, Calcium 9.1, Phosphorus 3.5, Magnesium 1.8, Total Bilirubin 0.4, AST 29, ALT 12, Alkaline Phosphatase 125, Total Protein 8.4 H, Albumin 4.4, Globulin 4.0 H, Albumin/Globulin Ratio 1.1, Lipase 114 07/03/25 16:59: Lactate 0.8 Orders (Tests/Meds): ED MEDICATIONS Generic Name Dose Route Start Last Admin Trade Name Freq PRN Reason Stop Dose Admin Nicotine 21 mg 07/03/25 18:40 07/03/25 18:44 Nicotine 21mg/24hr Patch TD 08/02/25 18:39 21 mg DAILYP PRN Administration Nicotine Cravings Discontinued Medications Generic Name Dose Route Start Last Admin Trade Name Freq PRN Reason Stop Dose Admin Lactated Ringer's 1,000 mls @ 999 mls/hr 07/03/25 14:30 07/03/25 16:46 Lactated Ringer's 1000 Ml Bag IV 07/03/25 15:30 Infused .Q1H1M CLARISA Infusion Iopamidol 75 ml 07/03/25 15:39 07/03/25 15:41 Iopamidol-370 (76%);100ml Bottle IV 07/03/25 15:40 75 ml ONCE ONE Administration Morphine Sulfate 4 mg 07/03/25 14:28 07/03/25 15:41 Morphine 4mg/Ml Syringe IV 07/03/25 14:29 4 mg ONCE ONE Administration Morphine Sulfate 4 mg 07/03/25 18:32 07/03/25 18:47 Morphine 4mg/Ml Syringe IV 07/03/25 18:33 4 mg ONCE ONE Administration Ondansetron HCl 4 mg 07/03/25 14:28 07/03/25 16:45 Ondansetron 4mg/2ml Vial IV 07/03/25 14:29 Not Given ONCE ONE ORDERS Category Date Time Status CT abdomen pelvis w con Stat Cat Scan 07/03/25 14:28 Completed Consult to Behavioral Health [CONS] Stat Cons 07/03/25 15:55 Active CBC w/Auto Diff [Complete Blood Count Auto Diff] Stat Lab 07/03/25 14:41 Completed CMP [Comprehensive Metabolic Panel] Stat Lab 07/03/25 14:41 Completed HIV Combo Stat Lab 07/03/25 14:41 Received Hepatitis C Ab Qual. W/ RFX Stat Lab 07/03/25 14:41 Received Lactic Acid Stat Lab 07/03/25 16:59 Completed Lipase Stat Lab 07/03/25 14:41 Completed Magnesium Stat Lab 07/03/25 14:41 Completed Phosphorous Stat Lab 07/03/25 14:41 Completed Prealbumin Stat Lab 07/03/25 16:59 Received Medical Decision Narrative: 40-year-old female with severe malnutrition and cachexia secondary to chronic anorexia associated with pain from food aversion and associated with her Keena-en-Y gastric bypass performed Dr. Velez many years ago with known history of anastomotic ulcers. She states that she has a very poor relationship with Dr. Velez given the fact that he has blown her off over the years as well as left at some of the other physician recommendations that she has been given in particular for the need for revision surgery. She has also tried to see other bariatric surgeons but they historically have not wanted to get involved in her case because she has been a patient of Dr. Velez's. She would like a second opinion. With regards to her emergent presentation today primarily I am concerned about her passive suicidal ideation as she states the pain is so bad that she does not want to live at times. She does not feel that way currently but I feel that we need to do more of a workup including looking for complications in particular she has a known history of anastomotic ulcerations which are very possible to be ongoing at the moment. Will get a CT scan basic blood work administer IV fluids pain medicine nausea medicine and reassess. We will attempt to discuss the case with another institution namely with Dr. Piper team at [facility] to see if they be willing to take her on as a patient despite her association with other surgeons in the past. Care will be transitioned to Dr. Ching at 3 PM. Naima Ching, DO I assumed care of the patient at 1500. I discussed with [facility] but due to capacity patient was not accepted. Patient stated that she did not want to go to [place] for care therefore I discussed with [facility] excepted the patient for transfer. Patient was willing to be seen and evaluated on a voluntary aspect for psychiatry once her medical workup has been completed. No involuntary hold was deemed necessary at this time. Patient was otherwise transferred to [facility] in stable condition via BLS. Critical Care <Kamla Rosas MD - Last Filed: 07/03/25 14:38> Critical Care Time Critical Care Time: Yes Attestation: On 07/03/25, the high probability of a clinically significant, sudden or life threatening deterioration of the following system(s) required my full and direct attention, intervention and personal management. The time I documented below is in addition to time spent performing reported procedures but includes the following listed in this critical care notation. Total Time Total Critical Care Time: 35
[2025-07-03 14:50] LABS: Hematocrit 39.3 % (37.0-47.0); Hemoglobin 12.5 g/dL (12.2-16.2); Immature Granulocytes % 0.3 %; Mean Corpuscular HGB Conc 31.8 g/dL (31.8-35.4); Mean Corpuscular Hemoglobin 28.5 pg (27.0-31.2); Mean Corpuscular Volume 89.5 fl (81-99); Nucleated Red Blood Cells % 0 %; Platelet Count 330 K/mm3 (142-424); Red Blood Count 4.39 M/mm3 (4.20-5.40); Red Cell Distribution Width-SD 43.5 fL; White Blood Count 9.1 K/mm3 (4.8-10.8)
[2025-07-03 14:57] LABS: Albumin Level 4.4 g/dl (3.5-5.0); Chloride 101 mmol/L (98-107); Potassium 3.8 mmoL/L (3.5-5.1); Sodium 140 mmol/L (136-145)
[2025-07-03 14:59] LABS: Lipase 114 U/L (23-300)
[2025-07-03 15:00] LABS: Alanine Aminotransferase 12 U/L (12-78); Albumin/Globulin Ratio 1.1 (1.1-1.8); Alkaline Phosphatase 125 U/L (38-126); Anion Gap 11.8 mEq/L (5-15); Aspartate Amino Transferase 29 U/L (14-36); Bilirubin,Total 0.4 mg/dl (0.2-1.3); Blood Urea Nitrogen 12 mg/dl (7-17); Calcium 9.1 mg/dl (8.4-10.2); Carbon Dioxide 31 mmol/L (22.0-30.0); Creatinine,Serum 0.70 mg/dl (0.52-1.04); Estimated Glomerular Filt Rate 92 ml/min (>60); GFR (African American) 112 ML/MIN (>60); Globulin 4.0 g/dL (1.3-3.2); Glucose 82 mg/dl (74-100); Magnesium 1.8 mg/dl (1.6-2.3); Phosphorous 3.5 mg/dl (2.5-4.5); Total Protein,Serum 8.4 g/dl (6.3-8.2)
--- NOTE | 2025-07-03 15:20 | PC.NURSE ---
Upon assessing and triaging the pt she was scored high risk on the suicidal scale. pt is voluntary at this time and wants to seek medical treatment evaluation at this time. Dr. Rosas notified.
[2025-07-03] MEDS: IOPAMIDOL-370 (76%);100ML BOTTLE 75 ML IV (15:41)
[2025-07-03] MEDS: MORPHINE 4MG/ML SYRINGE 4 MG IV ×2 (15:41→18:47)
[2025-07-03] MEDS: LACTATED RINGERS 1000ML 1,000 ML 999 ML IV (15:42)
--- NOTE | 2025-07-03 16:53 | PC.NURSE ---
Called [facility] per Dr Rosas to see about transferring this pt. Dr Rosas is actually speaking with the transfer center [facility] at this time.
--- NOTE | 2025-07-03 17:36 | PC.NURSE ---
calling [facility] at this time.
--- NOTE | 2025-07-03 17:53 | PC.NURSE ---
[facility] has called back and is speaking with Dr Ching at this time
--- OUTSIDE RECORDS SUMMARY | 2025-07-03 17:58 | XMS_ITS | Encounter Summary ---
Author Organization [place] [address] Care Team Providers Care Speech Language Pathologist Prn Name Role Phone Unavailable Primary Care Provider Unavailabl e Encounter Details Date Type Department Care Team (Late st Contact Info) Description 07/03/2025 5:58 PM [facility] Hospital Encounter [address] [phone] Zackery Villegas MD [address] [place] [address] Social History Tobacco Use Types Packs/Day Years Used Date Smoking Tobacco: Never Assessed Comments Unknown Sex and Gender Information Value Date Recorded Sex Assigned at Not on file Legal Sex Female 3:33 PM EDT Gender Identity Not on file Sexual Orientation Not on file documented as of this encounter Plan of Treatment Not on file documented as of this encounter Visit Diagnoses Not on filedocumented in this encounter
--- NOTE | 2025-07-03 18:01 | PC.NURSE ---
Accepted to [facility] Room 339.
--- NOTE | 2025-07-03 18:34 | PC.NURSE ---
at pts bedside. discussing with the pt about being transferred by EMS to [facility] for medical and psychiatric evaluation. pt is voluntary at this time and agreed to be transferred by EMS.
--- NOTE | 2025-07-03 18:40 | PC.NURSE ---
pt in ED for suicide ideation. pt attemped to leave ER. dispatch called to have officer come stage at ER incase pt tries to leave again.
[2025-07-03] MEDS: NICOTINE 21MG/24HR PATCH 21 MG TD (18:44)
--- NOTE | 2025-07-03 18:44 | PC.NURSE ---
Pt went by the tech in the room and tried to walkout. Was able to get ahead of her before she got out the lobby door. Talked to her calmy and softly and she stated she was just going to get a cup of coffee and ad a cigarette advised her that we could possibly arrange that and if i could and she agreed to go back to the room and wait. Dr Cihng was gonna order a nicotine patch and i went and got her a cup of coffee. after taking the cup of coffee to her she was calm and climbed back in the bed and would await transport.
--- NOTE | 2025-07-03 19:18 | PC.NURSE ---
Called report to DARCY Bonner at [facility].
--- NOTE | 2025-07-03 19:46 | PC.NURSE ---
Spoke with [facility]. EMS to make them aware of BLS transfer
[2025-07-03 20:43] LABS: Hepatitis C Ab Qual. W/ RFX NEGATIVE (Negative)
--- OUTSIDE RECORDS SUMMARY | 2025-07-03 21:16 | XMS_ITS | Clinical Summary ---
Author Organization [facility] Address [address] [place] [address] Care Team Providers Care Upstairs Maid Name Role Phone Unavailable Primary Care Provider Unavailabl e Social History Tobacco Use Types Packs/Day Years Used Date Smoking Tobacco: Never Assessed Comments Unknown Sex and Gender Information Value Date Recorded Sex Assigned at Not on file Legal Sex Female 10:33 AM EST Gender Identity Not on file Sexual Orientation Not on file Plan of Treatment Health Maintenance Due Date Last Done Comments HIV Screening 1984 Hepatitis C Screening 1984 MMR Vaccines (1 of 1 - Stand jennyfer series) 1985 Varicella Vaccines (1 of 2 - 13+ 2-dose series) 1997 Hepatitis B Screening 2002 DTaP/Tdap/Td Vaccines (1 - Tdap) 2003 Hepatitis B Vaccines (1 of 3 - 19+ 3-dose series) 2003 Pap Smear 2005 HPV Vaccines (1 - 3-dose SCD M series) 2011 Cervical Cancer Screening 2014 HPV/Cotest 2014 Mammogram 2024 Depression Risk Screening 08/17/2024 SDOH Screening 08/17/2024 COVID-19 Vaccine (2024-2 6 season) 2025 Influenza Vaccine (#1) 2025 Zoster Vaccines (1 of 2) 2034 HIB Vaccines Aged Out No longer eligi ble based on patient's age to complete this topic Hepatitis A Vaccines Aged Out No long er eligible based on patient's age to complete this topic IPV Vaccines Aged Out No longer eligi ble based on patient's age to complete this topic Meningococcal B Vaccine Aged Out No l onger eligible based on patient's age to complete this topic Meningococcal Vaccine Aged Out No edson ivette eligible based on patient's age to complete this topic Pneumococcal Vaccine Aged Out No long er eligible based on patient's age to complete this topic Rotavirus Vaccines Aged Out No longer eligible based on patient's age to complete this topic Insurance [facility] [facility] EM[facility]PARTMENT
--- OUTSIDE RECORDS SUMMARY | 2025-07-03 21:17 | XMS_ITS | Clinical Summary ---
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 Role Phone Unavailable Primary Care Provider Unavailabl e Encounters Date Type Department Care Team Description 07/03/2025 5:58 PM EST Hospital Encounter [address] [place], [place] [id number] Zackery Villegas MD from Last 3 Months Social History Tobacco Use Types Packs/Day Years Used Date Smoking Tobacco: Never Assessed Comments Unknown Sex and Gender Information Value Date Recorded Sex Assigned at Not on file Legal Sex Female 3:33 PM EDT Gender Identity Not on file Sexual Orientation Not on file Plan of Treatment Health Maintenance Due Date Last Done Comments Annual Wellness Exam 1987 DTaP/TDaP/Td (1 - Tdap) 2003 Hepatitis B Vaccine (1 of 3 - 19+ 3-dose series) 2003 COVID-19 Vaccine (2024-2 6 season) 2025 Influenza Vaccine (#1) 2025 Meningococcal B Vaccine Aged Out No l onger eligible based on patient's age to complete this topic Pneumococcal Vaccine 0-49 Aged Out No longer eligible based on patient's age to complete this topic
--- OUTSIDE RECORDS SUMMARY | 2025-07-03 21:18 | XMS_ITS | Referral Summary ---
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 Name Role Phone Luciano Falk MD Primary Care Provider + [phone] Allergies No known active allergies Social History Tobacco Use Types Packs/Day Years Used Date Smoking Tobacco: Never Assessed Food Insecurity Answer Date Recorded Food run [...] Date Reese rded Speak language other than Nauruan at home Not on file 09/04/2023 Want help with school or training Not on file 09/04/2023 Substance Use Answer Date Recorded Used [...] Plan of Treatment Not on file Insurance [employer] [facility] [employer] Care Teams Garage Door Opener Installer Relationship Specialty Start Date End Date Luciano Falk MD [address] [place] [id number] PCP - General Adolescent Medicine 05/09/23
--- OUTSIDE RECORDS SUMMARY | 2025-07-03 21:18 | XMS_ITS | Clinical Summary ---
Author Organization [facility] Address [address] [place] [address] Care Team Providers Care Fire Captain Name Role Phone Luciano Falk MD Primary Care Provider + [phone] Allergies Active Allergy Reactions Criticality Noted Date [...] times a day. 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 Never 04/21/2023 Do you belong to any clubs o r organizations such as nondenominational groups, unions, fraternal or athletic groups, or [...] Recorded Patient Health Questionnaire-2 Score 4 04/21/2023 [facility] [place] [facility] Occupat [facility] - Occupational Stress [...] place to sleep or slept in a penitentiary (including now)? 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 0 04/22/2023 CAGE Questionnaire Score 0 023 Utilities Answer Date Recorded In the past 12 months has th e Re[employer], gas, oil, or water company threatened to [...] Last Done Comments [facility]-Bone Density Scan 1984 [facility]-/Child/Adol SDOH Screenings 1984 [facility]-Obesity Intervention 1990 [facility]- SDOH Screenings 2002 [facility]-Adult SDOH Screenings 2002 [facility]-Zoster Vaccines (1 of 2) 2003 07/03/2015, 06/04/2015 [facility]-Pap Smear 2005 [facility]-Cervical Cancer Screening 2014 [facility]-HPV/Cotest 2014 [facility]-IPV Vaccines (2 of 3 - Adult catch-up series) 07/04/2015 06/06/2015 HPV Vaccines (3 - Risk 3-dose series) 03/25/2021 11/23/2020, 10/18/2020, 06/06/2015 [facility]-Depression Screening 04/21/2024 04/21/2023 [id number] Vaccine (4 - season) 2025 06/11/2023, 01/26/2021, 12/27/2020 [facility]-Influenza Vaccine (#1) 04/17/202506/11, 06/03/2023, 06/30/2022, Additional history exists [facility]-DTaP,Tdap,and Td Vaccines (4 - Td or Tdap) 07/03/2031 07/03/2021, 07/09/2016, 04/07/2014 [facility]-HIB Vaccines Aged Out 06/06/2015 No longer e ligible based on patient's age to complete this topic [facility]-Varicella Vaccines Completed 07/03/2015, 2014 [facility]-Hepatitis A Vaccines Aged Out 017, 07/03/2015, 06/04/2015 No longer eligible based on patient's age to complete this topic [facility]-Hepatitis B Vaccines Completed 017, 07/03/2015, 06/04/2015 [facility]-HIV Screening Completed 04/20/2023 [facility]-Hepatitis C Screening Completed 04/20/2023 [facility]-Pneumococcal Vaccine: Pediatrics (0 to 5 Years) and At-Risk Patients (6 to 49 Years) Completed 06/24/2023, 05/27/2021, 06/02/2019, Additional history exists [facility]-Rotavirus Vaccines Aged Out No lo nger [...] Reactive Non Reactive 04/20/2023 11:54 PM EDT [facility] Comment:Screening for HIV 1 & 2 antibodies, and P24 antigen is NONREACTIVE. No confirmatory testing is required. Blood Venous blood specimen / Unknown Venipuncture / Unknown 04/20/2023 11:18 PM EDT 04/20/2023 11:20 PM EDT Kate B Idris [facility] BLOOD ORDERABLES Lamar l Result [facility] [address] [place] [address] * Hepatitis C Antibody - ED (04/20/2023 11:18 PM EDT) Hepatitis C Antibody Negative Negative 04/20/2023 11:49 PM EDT HEALTHCARE [facility] Blood Venous blood specimen / Unknown Venipuncture / Unknown 04/20/2023 11:18 PM EDT 04/20/2023 11:20 PM EDT Kate Grace Idris [facility] BLOOD ORDERABLES Lamar l Result Performing Organization Address City/[facility]/ZIP Co de Phone Number [facility] [address] [place] [address] from Last 3 Months or Most Recently Relevant to Health Maintenance Insurance [facility] Advance Directives Documents on File Type Date Recorded Patient [facility]one Machine Feeder Expl madhav Advance Directives and Lesvia g Will 11/16/2023 8:16 AM * Full Code (Latest Code Status on File) Date Activated Date Inactivated Comments 11/13/2023 6:14 AM 11/15/2023 3:09 AM Question Answer Comments Patient has decision-making capacity? Yes * Full Code Date Activated Date Inactivated Comments 04/21/2023 12:10 AM 04/24/2023 4:04 PM Question Answer Comments Patient has decision-making capacity? Yes Care Teams Fire Captain Relationship Specialty Start Date End Date Luciano Falk MD [address] [place] [id number] PCP - General Internal Medicine 04/20/23
--- OUTSIDE RECORDS SUMMARY | 2025-07-03 21:19 | XMS_ITS | Clinical Summary ---
Author Organization [facility] ([place], [place], [place], [place], [place]) Address [address] [place] [address] Care Team Providers Care Guard Range Name Role Phone Luciano Falk MD Primary Care Provider + [phone] Allergies No known active allergies Social History [...] Date Reese rded Speak language other than Guinean at home Not on file 09/04/2023 Want [...] Hepatitis C Screening 2002 Pap Smear 2005 Breast Cancer Screening 2024 COVID-19 VACCINE ( season) 2025 01/26/2021, 12/27/2020 Influenza Vaccine (#1) 2025 2, 05/16/2022, 05/27/2021, Additional history exists DTAP/TDAP/TD VACCINES (4 - Td or Tdap) 07/03/2031 07/03/2021, 07/09/2016, 04/07/2014 Pneumococcal Vaccine: 0-49 Years Aged Out 05/27/2021, 06/02/2019, 07/09/2016, Additional history exists No longer eligible based on patient's age to [place] [phone] [facility] [employer] Care Teams Guard Range Relationship Specialty Start Date End Date Luciano Falk MD [address] [place] [address] [place] [id number] PCP - General Adolescent Medicine 05/09/23
[2025-07-05 08:38] LABS: Prealbumin 15 mg/dL (12-34)
== END 2025-07-03 20:36 | disposition other institution (70) ==
PROVIDERS: Emergency Provider Student in an Organized Health Care Education/Training Program; PCP Nurse Practitioner Family
DX: R45.851 Suicidal ideations (principal); R10.9 Unspecified abdominal pain; R63.0 Anorexia; R64 Cachexia; E46 Unspecified protein-calorie malnutrition
CPT/HCPCS: 74177; 80053; 83605; 83690; 83735; 84100; 84134; 85025; 86803; 87389; 96361; 96374; 96375; 96376; 99285; J2270; J7120; Q9967

== ENCOUNTER 2025-07-26 13:22 | Outpatient (CLI) | payer OTHER, MEDICAID, SELFPAY ==
[2025-07-26 13:54] LABS: Hematocrit 38.5 % (37.0-47.0); Hemoglobin 12.0 g/dL (12.2-16.2); Immature Granulocytes % 0.4 %; Mean Corpuscular HGB Conc 31.2 g/dL (31.8-35.4); Mean Corpuscular Hemoglobin 28.1 pg (27.0-31.2); Mean Corpuscular Volume 90.2 fl (81-99); Nucleated Red Blood Cells % 0 %; Platelet Count 268 K/mm3 (142-424); Red Blood Count 4.27 M/mm3 (4.20-5.40); Red Cell Distribution Width-SD 47.9 fL; White Blood Count 8.1 K/mm3 (4.8-10.8)
[2025-07-26 15:27] LABS: Alanine Aminotransferase 15 U/L (12-78); Albumin Level 4.2 g/dl (3.5-5.0); Albumin/Globulin Ratio 1.3 (1.1-1.8); Alkaline Phosphatase 89 U/L (38-126); Anion Gap 15.3 mEq/L (5-15); Aspartate Amino Transferase 23 U/L (14-36); Bilirubin,Total 0.3 mg/dl (0.2-1.3); Blood Urea Nitrogen 23 mg/dl (7-17); Calcium 9.3 mg/dl (8.4-10.2); Carbon Dioxide 25 mmol/L (22.0-30.0); Chloride 103 mmol/L (98-107); Cholesterol 144 mg/dl (140-200); Creatinine,Serum 0.80 mg/dl (0.52-1.04); Estimated Glomerular Filt Rate 79 ml/min (>60); GFR (African American) 96 ML/MIN (>60); Globulin 3.2 g/dL (1.3-3.2); Glucose 58 mg/dl (74-100); HDL Cholesterol 67 mg/dl (40-60); Potassium 4.3 mmoL/L (3.5-5.1); Sodium 139 mmol/L (136-145); Total Protein,Serum 7.4 g/dl (6.3-8.2); Triglycerides 60 mg/dl (30-150)
== END 2025-07-26 23:59 ==
LOC: LAB.DROPOF 07-28 11:32
PROVIDERS: PCP Nurse Practitioner Family; Visit Provider Nurse Practitioner Family
DX: Z78.9 Other specified health status (principal)
CPT/HCPCS: 80053; 80061; 85025

== ENCOUNTER 2025-07-31 13:19 | Outpatient (CLI) | payer OTHER, MEDICAID, SELFPAY ==
[2025-07-31 13:22] VITALS: BMI 20.7
[2025-07-31 13:46] LABS: Hematocrit 35.4 % (37.0-47.0); Hemoglobin 11.6 g/dL (12.2-16.2); Immature Granulocytes % 0.2 %; Mean Corpuscular HGB Conc 32.8 g/dL (31.8-35.4); Mean Corpuscular Hemoglobin 30.1 pg (27.0-31.2); Mean Corpuscular Volume 91.9 fl (81-99); Nucleated Red Blood Cells % 0 %; Platelet Count 241 K/mm3 (142-424); Red Blood Count 3.85 M/mm3 (4.20-5.40); Red Cell Distribution Width-SD 49.5 fL; White Blood Count 8.0 K/mm3 (4.8-10.8)
[2025-07-31 14:08] LABS: Alanine Aminotransferase 8 U/L (12-78); Albumin Level 3.7 g/dl (3.5-5.0); Albumin/Globulin Ratio 1.5 (1.1-1.8); Alkaline Phosphatase 51 U/L (38-126); Anion Gap 19.1 mEq/L (5-15); Aspartate Amino Transferase 26 U/L (14-36); Bilirubin,Total 0.5 mg/dl (0.2-1.3); Blood Urea Nitrogen 22 mg/dl (7-17); Calcium 8.5 mg/dl (8.4-10.2); Carbon Dioxide 19 mmol/L (22.0-30.0); Chloride 89 mmol/L (98-107); Cholesterol 119 mg/dl (140-200); Creatinine Clearance Estimated 82 mL/min (50-200); Creatinine,Serum 0.90 mg/dl (0.52-1.04); Estimated Glomerular Filt Rate 69 ml/min (>60); GFR (African American) 83 ML/MIN (>60); Globulin 2.5 g/dL (1.3-3.2); HDL Cholesterol 44 mg/dl (40-60); Sodium 121 mmol/L (136-145); Total Protein,Serum 6.2 g/dl (6.3-8.2)
[2025-07-31 14:22] LABS: Triglycerides 914 mg/dl (30-150)
[2025-07-31 14:23] LABS: Glucose 1216 mg/dl (74-100); Potassium 6.1 mmoL/L (3.5-5.1)
== END 2025-07-31 23:59 | disposition home or self-care (01) ==
PROVIDERS: PCP Nurse Practitioner Family; Visit Provider Nurse Practitioner Family
DX: Z78.9 Other specified health status (principal)
CPT/HCPCS: 36592; 80053; 80061; 85025; 96523

== ENCOUNTER 2025-07-31 15:53 | Emergency (ER) | payer OTHER, MEDICAID, SELFPAY ==
[2025-07-31 15:55] VITALS: BP 105/73; PULSE 102; RESP 18; TEMP 36.8; O2SAT 100; BMI 20.7
--- NOTE | 2025-07-31 16:09 | PC.NURSE ---
Called Dr. Chiu office to confirm pts sugar in office. They stated at 1335 today (07/31/25) it was called a critical to them at the level 1216, pt was told to come to the ER where her sugar here is 78 @1600
--- NOTE | 2025-07-31 16:17 | ED_ITS ---
<Statement entered by Naima Ching DO - 07/31/25 19:02> I was consulted by the TRISTEN, and we discussed the complexity of problems being addressed. I approve the treatment and management plan for this patient's care in the emergency department, thus performing a substantial portion of the medical decision making. Naima Ching DO Discharge Plan Disposition Patient Disposition: Home, Self-Care Prescriptions Prescriptions: No Action cholecalciferol (vitamin D3) [Vitamin D3] 25 mcg (1,000 unit) tablet 25 mcg PO DAILY quetiapine 100 mg tablet 100 mg PO HS Qty: 30 5RF quetiapine [Seroquel] 25 mg tablet 25 mg PO QAM Qty: 30 5RF pregabalin 200 mg capsule 200 mg PO BID Qty: 60 2RF naloxone 4 mg/actuation spray,non-aerosol 4 mg intranasal Q3M PRN (Reason: opioid overdose) Qty: 2 1RF oxycodone 5 mg tablet 5 - 10 mg PO Q6H PRN (Reason: severe pain) Qty: 120 0RF promethazine 25 mg tablet 25 mg PO Q6H PRN (Reason: nausea and vomiting) Qty: 60 0RF estradiol [Estrace] 0.01 % (0.1 mg/gram) cream 0.25 appful vaginal .twice weekly Qty: 42.5 2RF Rx Instructions: please dispose of the applicator. Please apply a blueberry amount every night for two weeks. After this please apply twice a week for maintenance. lorazepam 1 mg tablet 1 mg PO BID PRN (Reason: abdominal pain) Qty: 60 4RF Rx Instructions: 1/2 to 1 tablet by mouth twice daily as needed for abdominal pain hydroxyzine pamoate 50 mg capsule 50 mg PO Q8HP PRN (Reason: .) Qty: 90 0RF Referrals Follow up/Referrals: Rupa Hicks APRN [Primary Care Provider, Family Practice] - See instructions Clinical Impressions Clinical Impression: Impaired glucose tolerance (oral) Print Language Print Language: Khmer Discharge ED Provider: Naima Ching General Adult HPI General Stated complaint: High Blood sugar Time Seen by Provider: 07/31/25 16:07 History of Present Illness HPI narrative: 40-year-old female presents to the ED today after Rupa Hurtado office beronica her blood work out of her TPN line this morning and her glucose was 1300. She came in for evaluation of this. Her glucose fingerstick was 78. Patient does not need workup as this was a false read this morning because the blood was drawn from the line where the TPN was going in. Related Data Home Medications ?Medication ?Instructions ?Recorded ?Confirmed cholecalciferol (vitamin D3) 25 25 mcg PO DAILY 07/26/25 mcg (1,000 unit) tablet (Vitamin D3) Previous Rx's ?Medication ?Instructions ?Recorded estradiol 0.01% (0.1 mg/gram) 0.25 appful vaginal .twi ce weekly 01/10/25 vaginal cream (Estrace) #42.5 grams lorazepam 1 mg tablet 1 mg PO BID PRN abdominal pa in #60 03/07/25 tabs hydroxyzine pamoate 50 mg capsule 50 mg PO Q8HP PRN . #90 caps 06/12/25 naloxone 4 mg/actuation nasal spray 4 mg intranasal Q3 M PRN opioid 07/26/25 overdose #2 ea oxycodone 5 mg tablet 5 - 10 mg (1 - 2 x 5 mg) PO Q6H 07/26/25 PRN severe pain #120 tabs pregabalin 200 mg capsule 200 mg PO BID restless legs #60 07/26/25 caps promethazine 25 mg tablet 25 mg PO Q6H PRN nausea and 07/26/25 vomiting #60 tabs quetiapine 100 mg tablet 100 mg PO HS #30 tabs quetiapine 25 mg tablet (Seroquel) 25 mg PO QAM #30 ta bs 07/26/25 Allergies Allergy/AdvReac Type Severity Reaction Status Date / Time hydromorphone (From Dilaudid) Allergy Intermediate Unknown Verified 07/26/25 10:17 allergy reaction NSAIDS (Non-Steroidal Allergy Unknown Unknown Verified 07/26/25 10:17 Anti-Inflamma allergy reaction lactose AdvReac Mild Nausea Verified 07/26/25 10:17 cilantro Allergy Severe throat and Uncoded 07/26/25 10:17 tongue swells, hives on face PFSH PFS Disclaimer: The information contained in this section may have been updated after the patient was seen, as this information can be updated by other users. Medical History (Updated 07/31/25 @ 16:16 by Rina Frost (ED), [employer]ORER [employer]) Anorexia Acute exacerbation of chronic abdominal pain Abdominal pain Neuropathy Hemorrhage of anastomosis due to ulcer Encounter to establish care Gastroenteritis Chronic pain Encounter for routine gynecological examination Chronic upper abdominal pain Nausea vomiting and diarrhea Anxiety Psychiatric care Severe anxiety Peptic ulcer disease Edema Chronic low back pain Right shoulder pain Dizziness Atypical chest pain Nausea and vomiting Occult blood positive stool Atypical angina Diarrhea Abnormal result of cardiovascular function study Encounter for pre-operative cardiovascular clearance Abdominal pain Flu vaccine need Community acquired pneumonia Community acquired bacterial pneumonia Synovitis of right foot Morbid obesity with BMI of 40.0-44.9, adult Multiple joint pain Synovitis of left foot Metatarsus adductus of both feet Hypokalemia SHAUN (acute kidney injury) Class 3 severe obesity due to excess calories in adult Gastroenteritis Left ankle instability Metatarsus adductus of left foot Gastrocnemius equinus of left lower extremity Posterior tibial tendon dysfunction (PTTD) of left lower extremity Obesity Leukocytosis Acute renal insufficiency Hypokalemia Near syncope Gastroenteritis History of DVT (deep vein thrombosis) Palpitations Dizziness Ex-smoker Preoperative clearance Dyspnea Bilateral hip pain Chest pain Chest pain Pre-syncope Acute chest pain Acute upper GI bleed Headache Abdominal pain Exposure to hepatitis C Head ache Chronic nausea Chest pain Diarrhea Chest pain, non-cardiac Chronic headaches Right upper quadrant abdominal pain Tachycardia Shortness of breath Syncope LEONORA (obstructive sleep apnea) Elevated left ventricular end-diastolic pressure (LVEDP) Edema History of left heart catheterization SVT (supraventricular tachycardia) Pulmonary embolism Osteoarthritis Migraine HTN (hypertension) HLD (hyperlipidemia) Heart murmur GERD (gastroesophageal reflux disease) DVT (deep venous thrombosis) Afib Asthma Arrhythmia Anxiety History of pulmonary embolism Surgical History History of gastric bypass History of total abdominal hysterectomy Status post foot surgery History of bariatric surgery History of exploratory laparotomy History of cholecystectomy History of lumpectomy of left breast H/O knee surgery History of esophageal surgery H/O foot surgery Previous back surgery Family History Mother Family history of cancer endometrial, cervical, breast Grandmother Family history of cancer cervical, breast Other Family history of hypertension Kidney disease Social History Smoking Status: Current every day smoker tobacco type: cigarettes packs per day: 4 second hand exposure: No alcohol intake: never substance use type: marijuana current occupational status: other Travel in the last 8 weeks?: None household members: spouse housing: house number of children: 0 current occupational exposures/hazards: No caffeine: No Have you lived/traveled outside US in past 30 days?: No Contact w/someone who lives/traveled outside US past 30 days?: No Exposure to someone with infectious disease in past 14 days?: No Do you have a fever (greater than 100.4 F or 38 C)?: No Have you tested positive for COVID-19?: No Exposed to someone with COVID-19 in past 14 days?: No Do you have a sore throat?: No Do you have a cough?: No Do you have any weakness?: No Do you have any diarrhea?: No Are you experiencing any unusual bleeding?: No Do you have any muscle aches/pain?: No Do you have any abdominal pain?: No Are you experiencing loss of taste or smell?: No Other Medical History Have you received the Flu Vaccine for this season: No Have you received the Pneumonia Vaccine: Yes ROS Obtained: Yes Systems reviewed as appropriate & no additional complaints except as documented Physical Exam General General appearance: alert Respiratory Respiratory exam: Present other Cardiovascular Cardiovascular exam: Present other Neurological Exam Neurological exam: Present alert and oriented X3 Skin Skin exam: Present warm and dry Medical Decision Making Medical Records Screening: Per USPSTF and CDC recommendations, given the prevalence of disease in our region, it is our hospital?s policy to screen for HIV and viral Hepatitis for all patients aged 18 and over and those with ongoing risk factors. Dinesh Inquiry Pt receiving controlled substance: No Dinesh was queried for this patient: No Medical Decision Narrative: Patient safe for discharge home no workup required. Critical Care Critical Care Time Critical Care Time: No
[2025-07-31 16:18] VITALS: O2SAT 100
[2025-07-31 16:19] VITALS: BP 105/73; PULSE 99; RESP 18; TEMP 36.8; O2SAT 100
== END 2025-07-31 16:30 | disposition home or self-care (01) ==
PROVIDERS: Emergency Provider Student in an Organized Health Care Education/Training Program; PCP Nurse Practitioner Family
DX: Z00.00 Encounter for general adult medical examination without abnormal findings (principal)
CPT/HCPCS: 99282; 99284

== ENCOUNTER 2025-08-07 15:07 | Outpatient (CLI) | payer MEDICAID, OTHER, SELFPAY ==
--- OUTSIDE RECORDS SUMMARY | 2025-07-03 22:21 | XMS_ITS | Encounter Summary ---
Author Organization [place] [address] Care Team Providers Care Engagement Lead Name Role Phone Unavailable Primary Care Provider Unavailabl e Reason for Referral * Smoking Cessation (Routine) - Pending Review Specialty Diagnoses / Procedures Referred By Vish xiong Referred To Contact Diagnoses Nicotine dependence, unspecified, uncomplicated Zackery Villegas MD [address] [place] [address] Phone: tel: fax: Referral ID Status Reason Start Date Expiration Date V isits Requested Visits Authorized [id number] Pending Review 07/04/2025 07/04/2026 1 1 Reason for Visit * Auth/Cert/Inpt Specialty Diagnoses / Procedures Referred By Vish xiong Referred To Contact Diagnoses Abdominal pain Anorexia abd pain anorexia Referral ID Status Reason Start Date Expiration Date Visits Re quested Visits Authorized [id number] 1 1 Encounter Details Date Type Department Care Team (Latest Contact Info) Description 07/03/2025 10:21 PM EST - 07/19/2025 3:29 PM EST Hospital Encounter [facility] [address] [place] [address] Bradford Sauceda MD [address] [place] [address] Zackery Villegas MD [address] [place] [address] Pain of upper abdomen (Primary [...] care, and heating? Not very hard 07/04/2025 [facility] - Occupational [...] money to get more. Often true 07/04/2025 [facility] Utilities Answer Date Recorded In the past 12 months has th e electric, gas, oil, or water company threatened to shut off services in your home? No 07/04/2025 [facility] IP Transportation Answer D ate Recorded In [...] Ragsdale MD - 07/19/2025 10:48 AM EST [facility] Discharge Summary Patient Name: Alexei Macias : [...] mL, Intravenous, DAILY 6PM nalOXone 4 mg/actuation [place] Dose: 4 mg Qty: 1 Each Refills: 0 Commonly known as: NARCAN 4 mg, Nasal, PRN, Welling the contents of one device (0.1mL) into [...] Your Medications These medications were sent to [facility] [place] [address] - [address] [place] [address] [place] [address] - [phone] [place] [phone] oxyCODONE 5 mg Tab These medications were sent to [facility] [address], [facility] [address] Hours: Thursday-Thursday 9:00am - 5:00pm cholecalciferol (vitamin D3) 25 mcg (1,000 unit) Tab nalOXone 4 mg/actuation [place] pantoprazole 40 mg Tbec Information about where to get these medications is not yet available Ask your nurse or doctor about these medications fat emulsion 20 % Emul Condition at Discharge: good Disposition: Home Follow-up: [place] [phone] ([phone]) Follow up call for assistance wiht eating disorder Bright Cornelius MD [address] [facility] [facility] [address] Follow up 1-[address] weeks[address] follow up [facility] Follow up Rupa Hicks, PCP Follow up [...] for a peripherally inserted central catheter (PICC) (Gibraltarian) * Parenteral nutrition (Gibraltarian) documented in this encounter Medications at Time [...] or Restlessness. nalOXone (NARCAN) 4 mg/actuation Nasl Welling, Non-Aerosol Welling the contents of one device (0.1mL) into [...] End Date nalOXone (NARCAN) 4 mg/actuation Nasl Welling, Non-Aerosol Welling the contents of one device (0.1mL) into [...] given a copy. PICC in place at [place]. [employer] hr representative in the room to discuss teaching of TPN with pt. Pt was advised to call and make her follow-up appointments. Pt verbalized understanding. Pt's mom will be transporting her home. Pt had no further questions for me. 1550: Pt was transported off the unit via wheelchair. * Mia Shell CPhT - 07/19/2025 1:17 PM EST Discharge Medication Delivery Service DMD military administrative technician has delivered the following medications for Alexei Macias: Rx#[id number]:CHOLECALCIFEROL (VITAMIN D3) 25 MCG (1,000 UNIT) TABLET-1000 Units DAILY Rx#[id number]:NALOXONE 4 MG/ACTUATION NASAL SPRAY-4 mg PRN Date/Time of Delivery: 07/19/2025 1:17 PM Delivered to: patient while bedside; no questions for pharmacy Please contact DMD military administrative technician with any questions. Thanks! Mia Shell CPhT * Dinorah Hawk RN - 07/19/2025 11:58 AM EST 07/19/25 1153 Ongoing Discharge Planning Evaluation Completed by CC/SW Yes Discharge to Home with Family;Other(Comment) (home TPN for 2 months. No home health available.) Actual Discharge Plan 07/19/25 CC final note. Patient alert and oriented x3. Patient returning home in [place]. Mother will be providing transportation. [facility] is sending TPN to patient's room andthey will come and do superintendent menagerie and teaching once it is here. Informed patient TPN being shipped hereto patient's room. [facility] with Rupa Hicks NP at [facility] who will be following the patient while on TPN. Ms. Hicks will monitor labs, dressing changes and PICC line care. [facility] will be making an appointment for patient to go to [facility] for patient's care. No further needs. Final Note Referral to SEP Care Management (SEP patients only) No Discharge Round Completed Yes Care Coordination Discharge Ready? Yes Post Acute Provider [facility] DME Arranged at Discharge None Transportation at Discharge Personal vehicle Date Expected 07/19/25 Confirmed Discharge Transportation Plan? Yes Patient Aware and Agrees with DC Plan Yes MD Aware of Plan Yes RN Notified of Plan Yes * Kelli Woods MSW - 07/18/2025 3:51 PM EST 07/18/2025 [facility]/ SHYANNE GARCIA- RADHA checked in and followed [...] where she lives- tpn order faxed to [facility]. unable to accept pt. [facility] has accepted pt- faxed tpn order to [phone] attn Rupa Hicks NP or Lori.Phone # to [facility] [phone]. Rupa Hicks has accepted pt and will [...] Ragsdale MD - 07/18/2025 1:21 PM EST [facility] MEDICINE PROGRESS NOTE ASSESSMENT & PLAN: Generalized [...] Hx of PAF - Not on AC BUSINESS DIRECTOR Hx of CHF - Cardiology consulted, signed off - Echo 07/06 reviewed EDS - Per chart Hx of DVT, PE - Not on AC BUSINESS DIRECTOR ALEJANDRO - Iron studies 07/04 reviewed - [...] 07/18/25. Jayden Ragsdale MD * Graham Mello, [facility] - 07/18/2025 12:08 PM EST S: Alexei [...] electrolytes. Thanks, Graham Mello, PharmD * Kelli Granados, DATA ARCHITECT MANAGER - 07/18/2025 11:10 AM EST Inpatient Psychiatry [...] Seroquel 25mg qAM / 100mg qHS Continue BUSINESS DIRECTOR Ativan (noted increased from admission dose 1mg [...] Wellness Perspective: Yes Follow up: OP psych [facility] * Roxana Hodges - 07/17/2025 3:37 PM EST Images from the original note were not included. 07/17/25 1500 Reason for Visit Date of visit 07/17/25 Visited With Patient Visited By Wire Rope Fabrication Supervisor Reason for Visit Follow-up Patient Assessment Patient Appears Calm;Pleasant Patient Restoration at Registration None Interventions with Patient Collaboration Interventions Consulted with interdisciplinary team (Care linkage to bedside RN) Care Plan Plan for Follow-Up Wire Rope Fabrication Supervisor(s) remains available as needed Additional Notes Additional Notes if needed No spiritual/emotional needs at this time, director of graduate admissions(s) remain available as needed. Roxana Hodges MDiv Wire Rope Fabrication Supervisor, Pastoral and Spiritual Care For non-urgent requests, please place a Pastoral Care consult in [facility]. For all urgent matters, please send an urgent [facility] Secure Chat to the Pastoral Care group at your location. Between 11pm and 7am, please use On-Call Finder to send an [facility] Secure Chat to the on-call director of graduate admissions. Pastoral Care office phone numbers: EDG/COV/GRT [phone], [place] [phone], FTT [phone], DBN [phone] * Shelley Colon RD,LD - 07/17/2025 3:03 PM EST [facility] Nutrition Malnutrition Reassessment Evidence Supported Malnutrition Diagnosis: [...] Status: Active nutrition diagnosis Nutrition Prescription: Kcals: 5522-8280 kcal (30-35 kcal/55.9 kg) Protein (g): 67-84 [...] Of Nutrition Care: Collaboration with other providers (DATA ARCHITECT MANAGER, RN, Pharmacist) Nutrition Discharge Instructions: Home TPN [...] Occurrence: 1 Stool Appearance: (!) Type 6 [facility] Stool Chart Stool Color: Brown Stool Amount: Small Biochemical Data/Medical Tests: Pertinent Meds: protonix, miralax, Vitamins/Mineral Supplements: vit D Clinical Course: Clinical Course: Admitted d/t Chronic CP and epigastric pain.Surgery, GI, Cardiology and Psych consulted. Chronic Nausea, PUD, Recurrent vomiting. Chronic idiopathic [id number] EGD-MD notes will need a surgical J [...] helping. Wants to try soft foods today FDC planis to increase her strength w TPN before trying any further surgery to hopefuly correct the bypass issues Assessment/Plan: Generalized abdominal pain Acute exacerbation of chronic abdominal pain History of gastric bypass Chronic nausea GERD (gastroesophageal reflux disease) Peptic ulcer disease Persistent recurrent vomiting -- OTC PPI BUSINESS DIRECTOR. Continued -- pain management, supportive care, IVF [...] personality disorder (HCC) -- Ativan, Vistaril, Seroquel BUSINESS DIRECTOR. Continued -- psychiatry consulted -- more anxiety [...] Other chest pain -- cardiology consulted -- [place] to be atypical for CAD -- Suspect GI related -- Echo neg -Cards signed off Paroxysmal atrial fibrillation (HCC) -- history not clear -- not on any meds -- NSR currently Estevan-Danlos disease HTN (hypertension) -- not on any meds BUSINESS DIRECTOR -- patient reports that BP been running [...] Chronic pain Chronic abdominal pain -- Lyrica BUSINESS DIRECTOR. Continued -- Pain controlled with meds Cardiac murmur -- Echo as noted above History of chronic CHF -- not on any meds BUSINESS DIRECTOR -- Appears compensated -- Echo as noted [...] kcal, 252 g carb, 3.1 mg carb/kg/min. [id number]% of protein needs and low range of [...] 14.7 -- TPN Dental infection -- Augmentin BUSINESS DIRECTOR. Completed -- improving History of endometrial cancer [...] Procedure Component Value Units Date/Time Phosphorus Level [[id number]] (Normal) Collected: 07/17/25832 Order Status: Completed Specimen: Blood, Venous Updated: 07/17/25 0858 Phosphorus 3.9 mg/dL Triglycerides [[id number]] (Normal) Collected: 07/17/25555 Order Status: Completed Specimen: Blood, Venous Updated: 07/17/25 0807 Triglyceride 44 mg/dL Prealbumin [[id number]] (Abnormal) Collected: 07/17/25555 Order Status: Completed Specimen: Blood, Venous Updated: 07/17/25 0804 Prealbumin 16.9 mg/dL Hepatic Function Panel [[id number]] (Abnormal) Collected: 07/17/25555 Order Status: Completed Specimen: Blood, Venous Updated: 07/17/25622 Total Protein 6.3 gm/dL Albumin 3.4 gm/dL Bili Direct <0.2 mg/dL Bili Total <0.2 mg/dL AST 17 U/L ALT 12 U/L Alk Phos 90 U/L Phosphorus Level [[id number]] (Abnormal) Collected: 07/17/25555 Order Status: Completed Specimen: Blood, Venous Updated: 07/17/25622 Phosphorus 4.8 mg/dL Magnesium Level [[id number]] (Normal) Collected: 07/17/25555 Order Status: Completed Specimen: Blood, Venous Updated: 07/17/25622 Magnesium 2.1 mg/dL Basic Metabolic Panel [[id number]] (Abnormal) Collected: 07/17/25555 Order Status: Completed Specimen: Blood, Venous Updated: 07/17/25622 Sodium 140 mmol/L Potassium 4.6 mmol/L Chloride 103 mmol/L Total CO2 32 mmol/L Anion Gap 5 mmol/L Calcium 8.9 mg/dL Glucose Lvl 95 mg/dL BUN 21 mg/dL Creatinine 0.78 mg/dL eGFR (CKD-EPIcr 2020) 97 mL/min/1.73 m2 PT/INR [[id number]] (Normal) Collected: 07/17/25555 Order Status: Completed Specimen: Blood, Venous Updated: 07/17/25614 PT 11.6 second(s) INR 1.01 (ratio) Partial Thromboplastin Time [[id number]] (Normal) Collected: 07/17/25555 Order Status: Completed Specimen: Blood, Venous Updated: 07/17/25614 PTT 30.3 second(s) Ionized Calcium - Inpatient [[id number]] (Normal) Collected: 07/17/25555 Order Status: Completed Specimen: Blood, Venous Updated: 07/17/25606 Calcium Ionized 1.18 mmol/L CBC [[id number]] (Abnormal) Collected: 07/17/25555 Order Status: Completed Specimen: Blood, Venous Updated: 07/17/25605 WBC 5.1 x10(3)/mcL RBC 3.73 x10(6)/mcL Hgb 11.0 g/dL Hct 33.3 % MCV 89.3 fL MCH 29.5 pg MCHC 33.0 g/dL RDW 14.0 % Platelet 196 x10(3)/mcL MPV 10.1 fL Phosphorus Level [[id number]] (Normal) Collected: 07/16/25524 Order Status: Completed Specimen: Blood, Venous Updated: 07/16/25824 Phosphorus 4.0 mg/dL Magnesium Level [[id number]] (Normal) Collected: 07/16/25524 Order Status: Completed Specimen: Blood, Venous Updated: 07/16/25824 Magnesium 1.9 mg/dL Basic Metabolic Panel [[id number]] (Abnormal) Collected: 07/16/25524 Order Status: Completed Specimen: [...] disease Persistent recurrent vomiting -- OTC PPI BUSINESS DIRECTOR. Continued -- pain management, supportive care, IVF [...] personality disorder (HCC) -- Ativan, Vistaril, Seroquel BUSINESS DIRECTOR. Continued -- psychiatry consulted -- more anxiety [...] Other chest pain -- cardiology consulted -- [place] to be atypical for CAD -- Suspect GI related -- Echo neg -Cards signed off Paroxysmal atrial fibrillation (HCC) -- history not clear -- not on any meds -- NSR currently Estevan-Danlos disease HTN (hypertension) -- not on any meds BUSINESS DIRECTOR -- patient reports that BP been running [...] Chronic pain Chronic abdominal pain -- Lyrica BUSINESS DIRECTOR. Continued -- Pain controlled with meds Cardiac murmur -- Echo as noted above History of chronic CHF -- not on any meds BUSINESS DIRECTOR -- Appears compensated -- Echo as noted [...] kcal, 252 g carb, 3.1 mg carb/kg/min. [id number]% of protein needs and low range of calorie needs. Oral intake is dependent on pts pain, therefore any oral intake is a bonus. Medical Food Supplements: Glucerna Therapeutic; Beneprotein Vitamin and Mineral Supplements: Calcium; Vitamin D; Sodium; Chloride (Clinimix E) Nutrition-Related Medication Management: Protonix Collaboration And Referral Of Nutrition Care: Collaboration with other providers (DATA ARCHITECT MANAGER, RN, Pharmacist) -- B12 and folate wnl. Iron normal. Transferrin sat low, TIBC wnl. Mag wnl. Phos wnl. Triglyceride 59 -- Prealbumin 14.7 -- TPN Dental infection -- Augmentin BUSINESS DIRECTOR. Completed -- improving History of endometrial cancer [...] Procedure Component Value Units Date/Time Phosphorus Level [[id number]] (Normal) Collected: 07/16/25524 Order Status: Completed Specimen: Blood, Venous Updated: 07/16/25824 Phosphorus 4.0 mg/dL Magnesium Level [[id number]] (Normal) Collected: 07/16/25524 Order Status: Completed Specimen: Blood, Venous Updated: 07/16/25824 Magnesium 1.9 mg/dL Basic Metabolic Panel [[id number]] (Abnormal) Collected: 07/16/25524 Order Status: Completed Specimen: Blood, Venous Updated: 07/16/25 0616 Sodium 141 mmol/L Potassium 4.6 mmol/L Chloride 106 mmol/L Total CO2 32 mmol/L Anion Gap 3 mmol/L Calcium 8.5 mg/dL Glucose Lvl 102 mg/dL BUN 19 mg/dL Creatinine 0.81 mg/dL eGFR (CKD-EPIcr 2020) 92 mL/min/1.73 m2 BASIC METABOLIC PANEL [[id number]] (Abnormal) Collected: 07/15/25638 Order Status: Completed Specimen: Blood, Venous Updated: 07/15/25 0734 Sodium 141 mmol/L Potassium 4.6 mmol/L Chloride 106 mmol/L Total CO2 32 mmol/L Anion Gap 3 mmol/L Calcium 8.8 mg/dL Glucose Lvl 98 mg/dL BUN 16 mg/dL Creatinine 0.66 mg/dL eGFR (CKD-EPIcr 2020) 112 mL/min/1.73 m2 Phosphorus Level [[id number]] (Normal) Collected: 07/15/25638 Order Status: Completed Specimen: Blood, Venous Updated: 07/15/25 0734 Phosphorus 4.5 mg/dL Abelino Calderon MD 07/16/2025 11:23 AM Akil Cavazos [facility] - 07/16/2025 8:47 AM EST Pharmacy Consult [...] disease Persistent recurrent vomiting -- OTC PPI BUSINESS DIRECTOR. Continued -- pain management, supportive care, IVF [...] personality disorder (HCC) -- Ativan, Vistaril, Seroquel BUSINESS DIRECTOR. Continued -- psychiatry consulted -- more anxiety [...] Other chest pain -- cardiology consulted -- [place] to be atypical for CAD -- Suspect GI related -- Echo neg -Cards signed off Paroxysmal atrial fibrillation (HCC) -- history not clear -- not on any meds -- NSR currently Estevan-Danlos disease HTN (hypertension) -- not on any meds BUSINESS DIRECTOR -- patient reports that BP been running [...] Chronic pain Chronic abdominal pain -- Lyrica BUSINESS DIRECTOR. Continued -- Pain controlled with meds Cardiac murmur -- Echo as noted above History of chronic CHF -- not on any meds BUSINESS DIRECTOR -- Appears compensated -- Echo as noted [...] kcal, 252 g carb, 3.1 mg carb/kg/min. [id number]% of protein needs and low range of [...] 14.7 -- TPN Dental infection -- Augmentin BUSINESS DIRECTOR. Completed -- improving History of endometrial cancer [...] Component Value Units Date/Time BASIC METABOLIC PANEL [[id number]] (Abnormal) Collected: 07/15/25638 Order Status: Completed Specimen: Blood, Venous Updated: 07/15/25733 Sodium 141 mmol/L Potassium 4.6 mmol/L Chloride 106 mmol/L Total CO2 32 mmol/L Anion Gap 3 mmol/L Calcium 8.8 mg/dL Glucose Lvl 98 mg/dL BUN 16 mg/dL Creatinine 0.66 mg/dL eGFR (CKD-EPIcr 2020) 112 mL/min/1.73 m2 Phosphorus Level [[id number]] (Normal) Collected: 07/15/25638 Order Status: Completed Specimen: Blood, Venous Updated: 07/15/2534 Phosphorus 4.5 mg/dL Abelino Calderon MD 07/15/2025 10:09 AM * Akil Pichardo, [facility] - 07/15/2025 7:57 AM EST Pharmacy Consult [...] disease Persistent recurrent vomiting -- OTC PPI BUSINESS DIRECTOR. Continued -- pain management, supportive care, IVF [...] personality disorder (HCC) -- Ativan, Vistaril, Seroquel BUSINESS DIRECTOR. Continued -- psychiatry consulted -- more anxiety [...] Other chest pain -- cardiology consulted -- [place] to be atypical for CAD -- Suspect GI related -- Echo neg -Cards signed off Paroxysmal atrial fibrillation (HCC) -- history not clear -- not on any meds -- NSR currently Estevan-Danlos disease HTN (hypertension) -- not on any meds BUSINESS DIRECTOR -- patient reports that BP been running [...] Chronic pain Chronic abdominal pain -- Lyrica BUSINESS DIRECTOR. Continued -- Pain controlled with meds Cardiac murmur -- Echo as noted above History of chronic CHF -- not on any meds BUSINESS DIRECTOR -- Appears compensated -- Echo as noted [...] kcal, 252 g carb, 3.1 mg carb/kg/min. [id number]% of protein needs and low range of [...] 14.7 -- TPN Dental infection -- Augmentin BUSINESS DIRECTOR. Completed -- improving History of endometrial cancer [...] Component Value Units Date/Time Basic Metabolic Panel [[id number]] (Abnormal) Collected: 07/13/25 0603 Order Status: Completed Specimen: Blood, Venous Updated: 07/13/25 0653 Sodium 141 mmol/L Potassium 4.2 mmol/L Chloride 107 mmol/L Total CO2 30 mmol/L Anion Gap 4 mmol/L Calcium 8.9 mg/dL Glucose Lvl 82 mg/dL BUN 19 mg/dL Creatinine 0.75 mg/dL eGFR (CKD-EPIcr 2020) 101 mL/min/1.73 m2 Phosphorus Level [[id number]] (Abnormal) Collected: 07/13/25602 Order Status: Completed Specimen: Blood, Venous Updated: 07/13/25652 Phosphorus 4.6 mg/dL Magnesium Level [[id number]] (Normal) Collected: 07/13/25602 Order Status: Completed Specimen: Blood, Venous Updated: 07/13/25652 Magnesium 1.8 mg/dL Abelino Calderon MD 07/14/2025 1:53 PM * Pedrito Watts - 07/14/2025 1:36 PM EST Images from the original note were not included. 07/14/25 1117 Reason for Visit Date of visit 07/14/25 Visited With Patient Visited By CPE Gusset Ripper Reason for Visit Spiritual, emotional or social support Patient Assessment Patient Appears Calm;Pleasant;Positive Patient Restoration Upon Assessment None Spiritual Strengths and Coping Resources Accepts help from others Patient Spiritual Wellbeing Appears to be coping adequately Interventions with Patient Relationship Building Interventions Listened empathetically Bahai Interventions Prayer with patient or family (Patient asked Wire Rope Fabrication Supervisor internal auditor to pray for her Father who has cancer. Wire Rope Fabrication Supervisor internal auditor responded to the request of the patient by praying for the speedy recovery of her Father.) Outcomes Expressed Outcomes Appreciative of prayer/ritual;Appreciative of visit Care Plan Plan for Follow-Up Wire Rope Fabrication Supervisor(s) remains available as needed Pedrito Watts Wire Rope Fabrication Supervisor, Pastoral and Spiritual Care For non-urgent requests, please place a Pastoral Care consult in [facility]. For all urgent matters, please send an urgent [facility] Secure Chat to the Pastoral Care group at your location. Between 11pm and 7am, please use On-Call Finder to send an [facility] Secure Chat to the on-call director of graduate admissions. Pastoral Care office phone numbers: EDG/COV/GRT [phone], RASHEL [phone], FTT [phone], DBN [phone] * Tamara Waters DO - 07/14/2025 12:44 [...] Seroquel 25mg qAM / 100mg qHS Continue BUSINESS DIRECTOR Ativan (noted increased from admission dose 1mg [...] have generally been continued as was previously BUSINESS DIRECTOR - only adding Seroquel mid-daywhich was decreased [...] Past Psychiatric History inpatient: inpatient admission in [place] for anxiety Has been admitted to [facility] -anorexia and anxiety Had bariatric surgery 4 years ago, was 365 lbs, now weighs 108 lbs. Says no one cared about my anorexia Outpatient: Was going to [facility] in [place] -stopped going about 6 months ago after her health declined and she was not able to make appointments so she was released from care Also saw therapist in [place], [place] Med trials: was on Lamictal-reports [...] CANCER EXCISION SPINE SURGERY * Graham Mello [facility] - 07/14/2025 12:36 PM EST S: Alexei [...] 72 07/10/2025 Franky Gray MD Adult Psychiatrist [facility] * Abelino Calderon MD - 07/13/2025 9:10 AM EST Images from the original note were not included. PROGRESS NOTE Assessment/Plan: Generalized abdominal pain Acute exacerbation of chronic abdominal pain History of gastric bypass Chronic nausea GERD (gastroesophageal reflux disease) Peptic ulcer disease Persistent recurrent vomiting -- OTC PPI BUSINESS DIRECTOR. Continued -- pain management, supportive care, IVF [...] personality disorder (HCC) -- Ativan, Vistaril, Seroquel BUSINESS DIRECTOR. Continued -- psychiatry consulted -- more anxiety [...] Other chest pain -- cardiology consulted -- [place] to be atypical for CAD -- Suspect GI related -- Echo neg -Cards signed off Paroxysmal atrial fibrillation (HCC) -- history not clear -- not on any meds -- NSR currently Estevan-Danlos disease HTN (hypertension) -- not on any meds BUSINESS DIRECTOR -- patient reports that BP been running on low side for awhile -- monitor -- 106/68 today History of DVT (deep vein thrombosis) History of pulmonary embolism -- appears to be provoked -- no longer on anticoagulation Iron deficiency anemia -- Hemoglobin normal. MCV low Chronic low back pain Chronic pain Chronic abdominal pain -- Lyrica BUSINESS DIRECTOR. Continued -- Pain controlled with meds Cardiac murmur -- Echo as noted above History of chronic CHF -- not on any meds BUSINESS DIRECTOR -- Appears compensated -- Echo as noted [...] kcal, 252 g carb, 3.1 mg carb/kg/min. [id number]% of protein needs and low range of calorie needs. Oral intake is dependent on pts pain, therefore any oral intake is a bonus. Medical Food Supplements: Glucerna Therapeutic; Beneprotein Vitamin and Mineral Supplements: Calcium; Vitamin D; Sodium; Chloride (Clinimix E) Nutrition-Related Medication Management: Protonix Collaboration And Referral Of Nutrition Care: Collaboration with other providers (DATA ARCHITECT MANAGER, RN, Pharmacist) -- B12 and folate wnl. Iron normal. Transferrin sat low, TIBC wnl. Mag wnl. Phos wnl. Triglyceride 59 -- Prealbumin 14.7 -- TPN Dental infection -- Augmentin BUSINESS DIRECTOR. Completed -- improving History of endometrial cancer [...] Component Value Units Date/Time Basic Metabolic Panel [[id number]] (Abnormal) Collected: 07/13/25602 Order Status: Completed Specimen: Blood, Venous Updated: 07/13/25652 Sodium 141 mmol/L Potassium 4.2 mmol/L Chloride 107 mmol/L Total CO2 30 mmol/L Anion Gap 4 mmol/L Calcium 8.9 mg/dL Glucose Lvl 82 mg/dL BUN 19 mg/dL Creatinine 0.75 mg/dL eGFR (CKD-EPIcr 2020) 101 mL/min/1.73 m2 Phosphorus Level [[id number]] (Abnormal) Collected: 07/13/25602 Order Status: Completed Specimen: Blood, Venous Updated: 07/13/25652 Phosphorus 4.6 mg/dL Magnesium Level [[id number]] (Normal) Collected: 07/13/25602 Order Status: Completed Specimen: Blood, Venous Updated: 07/13/25652 Magnesium 1.8 mg/dL Abelino Calderon MD 07/13/2025 9:10 AM * Ulysses Lazcano MSW - 07/12/2025 1:32 PM EST 07/12/25 1332 Ongoing Discharge Planning Evaluation Completed by CC/RADHA Yes Actual Discharge Plan 07/12/25 RADHA UPDATE: [facility] waiting to hear back [...] will continue to monitor * Graham Mello, [facility] - 07/12/2025 10:41 AM EST S: Alexei [...] disease Persistent recurrent vomiting -- OTC PPI BUSINESS DIRECTOR. Continued -- pain management, supportive care, IVF [...] personality disorder (HCC) -- Ativan, Vistaril, Seroquel BUSINESS DIRECTOR. Continued -- psychiatry consulted -- more anxiety [...] Other chest pain -- cardiology consulted -- [place] to be atypical for CAD -- Suspect [...] HTN (hypertension) -- not on any meds BUSINESS DIRECTOR -- patient reports that BP been running on low side for awhile -- monitor -- 07/10/2025 in acceptable range History of DVT (deep vein thrombosis) History of pulmonary embolism -- appears to be provoked -- no longer on anticoagulation Iron deficiency anemia -- Hemoglobin normal. MCV low Chronic low back pain Chronic pain Chronic abdominal pain -- Lyrica BUSINESS DIRECTOR. Continued -- Pain controlled with meds Cardiac murmur -- Echo as noted above History of chronic CHF -- not on any meds BUSINESS DIRECTOR -- Appears compensated -- Echo as noted [...] kcal, 252 g carb, 3.1 mg carb/kg/min. [id number]% of protein needs and low range of calorie needs. Oral intake is dependent on pts pain, therefore any oral intake is a bonus. Medical Food Supplements: Glucerna Therapeutic; Beneprotein Vitamin and Mineral Supplements: Calcium; Vitamin D; Sodium; Chloride (Clinimix E) Nutrition-Related Medication Management: Protonix Collaboration And Referral Of Nutrition Care: Collaboration with other providers (DATA ARCHITECT MANAGER, RN, Pharmacist) -- B12 and folate wnl. Iron normal. Transferrin sat low, TIBC wnl. Mag wnl. Phos wnl. Triglyceride 59 -- Prealbumin 14.7 -- TPN Dental infection -- Augmentin BUSINESS DIRECTOR. Completed -- improving History of endometrial cancer [...] Results Procedure Component Value Units Date/Time Prealbumin [[id number]] (Abnormal) Collected: 07/10/25 0610 Order Status: Completed Specimen: Blood, Venous Updated: 07/10/25 1420 Prealbumin 10.4 mg/dL Abelino A Nienaber, MD 07/12/2025 9:47 AM TEN * Kelli Granados, DATA ARCHITECT MANAGER - 07/12/2025 9:44 AM EST Inpatient Psychiatry [...] Seroquel to minimize side effect potential Continue BUSINESS DIRECTOR lorazepam 0.5 mg BID PRN (rx'd by her OP GI team) PRN Vistaril available for anxiety Continue to encourage establishing outpatient mental treatment on an outpatient basis near her homeupon discharge as well as follow up with an eating disorder clinic She will be follow up by our psychiatric team over the weekend. We once again discussed following up with the [facility] other referrals: Eating disorder Clinic[facility] Home Page - 2nd Edition - Remedy Therapy [facility] Outpatient - [facility] [place]- Jesi Granados APRN, [facility] This chart was completed using voice recognition technology and may contain unintended errors. * Fang Rosas RD,LD - 07/12/2025 9:04 AM EST [facility] Nutrition Malnutrition Reassessment Evidence Supported Malnutrition Diagnosis: [...] Status: Active nutrition diagnosis Nutrition Prescription: Kcals: 9471-4709 kcal (30-35 kcal/55.9 kg) Protein (g): 67-84 Protein needs based on: 1.2-1.5 g Pro/55.9 kg Fluid (ml): 1 ml/kcal or per MD Other (comment): reviewed 07/10 Plan/Interventions: Meals and Snacks: Full Liquid (no carbonated beverages) Parenteral Nutrition/IV Fluids: Continue Clinimix 5/15 @ 70 ml/hr with daily lipids= 84 g protein, 1693 kcal, 252 g carb, 3.1 mg carb/kg/min. [id number]% of protein needs and low range of [...] Of Nutrition Care: Collaboration with other providers (DATA ARCHITECT MANAGER, RN, Pharmacist) Nutrition Discharge Instructions: Home TPN [...] Moe, PharmD * Abelino Calderon MD - 07/11/2025 9:11 AM EST Images from the original note were not included. PROGRESS NOTE Assessment/Plan: Generalized abdominal pain Acute exacerbation of chronic abdominal pain History of gastric bypass Chronic nausea GERD (gastroesophageal reflux disease) Peptic ulcer disease Persistent recurrent vomiting -- OTC PPI BUSINESS DIRECTOR. Continued -- pain management, supportive care, IVF [...] personality disorder (HCC) -- Ativan, Vistaril, Seroquel BUSINESS DIRECTOR. Continued -- psychiatry consulted -- more anxiety [...] Other chest pain -- cardiology consulted -- [place] to be atypical for CAD -- Suspect [...] HTN (hypertension) -- not on any meds BUSINESS DIRECTOR -- patient reports that BP been running on low side for awhile -- monitor -- 07/10/2025 in acceptable range History of DVT (deep vein thrombosis) History of pulmonary embolism -- appears to be provoked -- no longer on anticoagulation Iron deficiency anemia -- Hemoglobin normal. MCV low Chronic low back pain Chronic pain Chronic abdominal pain -- Lyrica BUSINESS DIRECTOR. Continued -- Pain controlled with meds Cardiac murmur -- Echo as noted above History of chronic CHF -- not on any meds BUSINESS DIRECTOR -- Appears compensated -- Echo as noted [...] kcal, 252 g carb, 3.1 mg carb/kg/min. [id number]% of protein needs and low range of [...] 14.7 -- TPN Dental infection -- Augmentin BUSINESS DIRECTOR. Completed -- improving History of endometrial cancer [...] Results Procedure Component Value Units Date/Time Prealbumin [[id number]] (Abnormal) Collected: 07/10/25609 Order Status: Completed Specimen: Blood, Venous Updated: 07/10/25 1420 Prealbumin 10.4 mg/dL Triglycerides [[id number]] (Normal) Collected: 07/10/25609 Order Status: Completed Specimen: Blood, Venous Updated: 07/10/25 0945 Triglyceride 73 mg/dL Basic Metabolic Panel [[id number]] (Abnormal) Collected: 07/10/25609 Order Status: Completed Specimen: Blood, Venous Updated: 07/10/25 0637 Sodium 139 mmol/L Potassium 4.4 mmol/L Chloride 107 mmol/L Total CO2 24 mmol/L Anion Gap 8 mmol/L Calcium 8.1 mg/dL Glucose Lvl 126 mg/dL BUN 12 mg/dL Creatinine 0.70 mg/dL eGFR (CKD-EPIcr 2020) 110 mL/min/1.73 m2 Hepatic Function Panel [[id number]] (Abnormal) Collected: 07/10/25609 Order Status: Completed Specimen: Blood, Venous Updated: 07/10/25 0637 Total Protein 6.1 gm/dL Albumin 3.2 gm/dL Bili Direct <0.2 mg/dL Bili Total <0.2 mg/dL AST 16 U/L ALT 9 U/L Alk Phos 132 U/L Phosphorus Level [[id number]] (Normal) Collected: 07/10/25609 Order Status: Completed Specimen: Blood, Venous Updated: 07/10/25636 Phosphorus 4.1 mg/dL Magnesium Level [[id number]] (Normal) Collected: 07/10/25609 Order Status: Completed Specimen: Blood, Venous Updated: 07/10/25636 Magnesium 1.8 mg/dL PT/INR [[id number]] (Normal) Collected: 07/10/25609 Order Status: Completed Specimen: Blood, Venous Updated: 07/10/25628 PT 12.5 second(s) INR 1.09 (ratio) Partial Thromboplastin Time [[id number]] (Normal) Collected: 07/10/25609 Order Status: Completed Specimen: Blood, Venous Updated: 07/10/25628 PTT 33.3 second(s) CBC [[id number]] (Abnormal) Collected: 07/10/25609 Order Status: Completed Specimen: [...] HTN (hypertension) -- not on any meds BUSINESS DIRECTOR -- patient reports that BP been running on low side for awhile -- monitor -- 07/10/2025 in acceptable range * Bradford Sauceda MD - 07/11/2025 12:02 AM ESTAssociated Problem(s): History of chronic CHF -- not on any meds BUSINESS DIRECTOR -- Appears compensated -- Echo as noted [...] kcal, 252 g carb, 3.1 mg carb/kg/min. [id number]% of protein needs and low range of calorie needs. Oral intake is dependent on pts pain, therefore any oral intake is a bonus. Medical Food Supplements: Glucerna Therapeutic; Beneprotein Vitamin and Mineral Supplements: Calcium; Vitamin D; Sodium; Chloride (Clinimix E) Nutrition-Related Medication Management: Protonix Collaboration And Referral Of Nutrition Care: Collaboration with other providers (DATA ARCHITECT MANAGER, RN, Pharmacist) -- B12 and folate wnl. [...] kcal, 252 g carb, 3.1 mg carb/kg/min. [id number]% of protein needs and low range of [...] (Alexei accompanied by her mother) Visited By Wire Rope Fabrication Supervisor Reason for Visit Follow-up Patient Assessment Patient Appears Calm;Positive Interventions with Patient Relationship Building Interventions Provided hospitality Exploration Interventions Provided caring and supportive presence Care Plan Plan for Follow-Up Wire Rope Fabrication Supervisor(s) remains available as needed Roxana Hodges MDiv Wire Rope Fabrication Supervisor, Pastoral and Spiritual Care For non-urgent requests, please place a Pastoral Care consult in [facility]. For all urgent matters, please send an urgent [facility] Secure Chat to the Pastoral Care group at your location. Between 11pm and 7am, please use On-Call Finder to send an [facility] Secure Chat to the on-call director of graduate admissions. Pastoral Care office phone numbers: EDG/COV/GRT [phone], RASHEL [phone], FTT [phone], DBN [phone] * Bradford Sauceda MD - 07/10/2025 4:36 PM ESTAssociated Problem(s): Generalized abdominal pain -- OTC PPI BUSINESS DIRECTOR. Continued -- pain management, supportive care, IVF [...] of chronic abdominal pain -- OTC PPI BUSINESS DIRECTOR. Continued -- pain management, supportive care, IVF [...] History of gastric bypass -- OTC PPI BUSINESS DIRECTOR. Continued -- pain management, supportive care, IVF [...] ESTAssociated Problem(s): Chronic nausea -- OTC PPI BUSINESS DIRECTOR. Continued -- pain management, supportive care, IVF [...] GERD (gastroesophageal reflux disease) -- OTC PPI BUSINESS DIRECTOR. Continued -- pain management, supportive care, IVF [...] Problem(s): Peptic ulcer disease -- OTC PPI BUSINESS DIRECTOR. Continued -- pain management, supportive care, IVF [...] Problem(s): Persistent recurrent vomiting -- OTC PPI BUSINESS DIRECTOR. Continued -- pain management, supportive care, IVF [...] Generalized anxiety disorder -- Ativan, Vistaril, Seroquel BUSINESS DIRECTOR. Continued -- psychiatry consulted -- more anxiety issues - psychiatry re-consulted. * Bradford Sauceda MD - 07/10/2025 2:25 PM ESTAssociated Problem(s): Major depressive disorder, recurrent, moderate (HCC) -- AtivanAlicial, Seroquel BUSINESS DIRECTOR. Continued -- psychiatry consulted -- more anxiety issues - psychiatry re-consulted. * Bradford Sauceda MD - 07/10/2025 2:25 PM ESTAssociated Problem(s): Insomnia due to mental disorder -- Ativan, Vistaril, Seroquel BUSINESS DIRECTOR. Continued -- psychiatry consulted -- more anxiety issues - psychiatry re-consulted. * Bradford Sauceda MD - 07/10/2025 2:25 PM ESTAssociated Problem(s): Adjustment disorder with mixed anxiety and depressed mood -- Ativan, Vistaril, Seroquel BUSINESS DIRECTOR. Continued -- psychiatry consulted -- more anxiety issues - psychiatry re-consulted. * Bradford Sauceda MD - 07/10/2025 2:25 PM ESTAssociated Problem(s): Acute reaction to situational stress -- Ativan, Alicial, Seroquel BUSINESS DIRECTOR. Continued -- psychiatry consulted -- more anxiety issues - psychiatry re-consulted. * Bradford Sauceda MD - 07/10/2025 2:25 PM ESTAssociated Problem(s): Borderline personality disorder (HCC) -- Ativan, Alicial, Seroquel BUSINESS DIRECTOR. Continued -- psychiatry consulted -- more anxiety [...] Other chest pain -- cardiology consulted -- [place] to be atypical for CAD -- Suspect [...] back pain Chronic abdominal pain -- Lyrica BUSINESS DIRECTOR. Continued -- Pain controlled with meds * Bradford Sauceda MD - 07/10/2025 2:25 PM ESTAssociated Problem(s): Chronic pain Chronic abdominal pain -- Lyrica BUSINESS DIRECTOR. Continued -- Pain controlled with meds * [...] PM ESTAssociated Problem(s): Dental infection -- Augmentin BUSINESS DIRECTOR. Continued -- improving * Bradford Sauceda MD - 07/10/2025 2:25 PM ESTAssociated Problem(s): Vitamin D insufficiency -- Vitamin D supplementation * Maureen Mcleod, GERONIMO,LD - 07/10/2025 1:29 PM EST [facility] Nutrition Malnutrition Reassessment Evidence Supported Malnutrition Diagnosis: [...] Status: Active nutrition diagnosis Nutrition Prescription: Kcals: 5614-2805 kcal (30-35 kcal/55.9 kg) Protein (g): 67-84 Protein needs based on: 1.2-1.5 g Pro/55.9 kg Fluid (ml): 1 ml/kcal or per MD Other (comment): reviewed 07/10 Plan/Interventions: Meals and Snacks: Full Liquid (no carbonated beverages) Parenteral Nutrition/IV Fluids: Continue Clinimix 5/15 @ 70 ml/hr with daily lipids= 84 g protein, 1693 kcal, 252 g carb, 3.1 mg carb/kg/min. [id number]% of protein needs and low range of [...] Of Nutrition Care: Collaboration with other providers (DATA ARCHITECT MANAGER, RN, Pharmacist) Nutrition Discharge Instructions: Home TPN [...] Stool Occurrence: 3 Stool Appearance: Type 5 [place] Stool Chart Stool Color: Brown Stool Amount: Medium Biochemical Data/Medical Tests: Pertinent Labs: gluc 126, H/H 9.9/30.9, Clinical Course: Clinical Course: Admitted d/t Chronic CP and epigastric pain.Surgery, GI, Cardiology and Psych consulted. Chronic Nausea, PUD, Recurrent vomiting. Chronic idiopathic /19 EGD-MD notes will need a surgical J [...] surgery at outside hospital. Admitted here from [facility]] ED. Bariatric surgery GI consulted. EGD show [...] disease Persistent recurrent vomiting -- OTC PPI BUSINESS DIRECTOR. Continued -- pain management, supportive care, IVF [...] personality disorder (HCC) -- Ativan, Vistaril, Seroquel BUSINESS DIRECTOR. Continued -- psychiatry consulted -- more anxiety [...] Other chest pain -- cardiology consulted -- [place] to be atypical for CAD -- Suspect [...] HTN (hypertension) -- not on any meds BUSINESS DIRECTOR -- patient reports that BP been running on low side for awhile -- monitor -- 07/10/2025 in acceptable range History of DVT (deep vein thrombosis) History of pulmonary embolism -- appears to be provoked -- no longer on anticoagulation Iron deficiency anemia -- Hemoglobin normal. MCV low Chronic low back pain Chronic pain Chronic abdominal pain -- Lyrica BUSINESS DIRECTOR. Continued -- Pain controlled with meds Cardiac murmur -- Echo as noted above History of chronic CHF -- not on any meds BUSINESS DIRECTOR -- Appears compensated -- Echo as noted [...] kcal, 252 g carb, 3.1 mg carb/kg/min. [id number]% of protein needs and low range of calorie needs. Oral intake is dependent on pts pain, therefore any oral intake is a bonus. Medical Food Supplements: Glucerna Therapeutic; Beneprotein Vitamin and Mineral Supplements: Calcium; Vitamin D; Sodium; Chloride (Clinimix E) Nutrition-Related Medication Management: Protonix Collaboration And Referral Of Nutrition Care: Collaboration with other providers (DATA ARCHITECT MANAGER, RN, Pharmacist) -- B12 and folate wnl. Iron normal. Transferrin sat low, TIBC wnl. Mag wnl. Phos wnl. Triglyceride 59 -- Prealbumin 14.7 -- TPN Dental infection -- Augmentin BUSINESS DIRECTOR. Continued -- improving History of endometrial cancer [...] Fluid Restriction(ml/24hr): Answer: No Carbonated Beverage 07/05/25 4591 Plan: Discussed with staff--with RN, care conference [...] = values in this interval not displayed. AR US UPPER EXTREMITY VENOUS RIGHT Result Date: 07/10/2025 Conclusions * No evidence of right upper extremity deep vein thrombosis. * Evidence of acute partially-occlusive superficial vein thrombosis of the basilic vein in zones 1 to 5. * No evidence of superficial thrombophlebitis detected in the right cephalic vein. * The contralateral left subclavian vein is widely patent and compressible. AR US LOWER EXTREMITY VENOUS LEFT Result Date: [...] MSW - 07/10/2025 11:33 AM EST 07/10/25 8959 Ongoing Discharge Planning Evaluation Completed by CC/RADHA Yes Actual Discharge Plan 07/10/25 RADHA UPDATE: Pt is being followed by [facility] for TPN, however has no doctor to follow her once DC. SW sent proactive referral to [facility] for possible placement. Pt is being followed by SHYANNE GARCIA. Pt transportation TBD day of DC. RADHA will continue to follow along. * Graham Mello [facility] - 07/10/2025 10:38 AM EST S: Alexei [...] Problem(s): Generalized abdominal pain -- OTC PPI BUSINESS DIRECTOR. Continued -- pain management, supportive care, IVF [...] of chronic abdominal pain -- OTC PPI BUSINESS DIRECTOR. Continued -- pain management, supportive care, IVF [...] History of gastric bypass -- OTC PPI BUSINESS DIRECTOR. Continued -- pain management, supportive care, IVF [...] ESTAssociated Problem(s): Chronic nausea -- OTC PPI BUSINESS DIRECTOR. Continued -- pain management, supportive care, IVF [...] GERD (gastroesophageal reflux disease) -- OTC PPI BUSINESS DIRECTOR. Continued -- pain management, supportive care, IVF [...] Problem(s): Peptic ulcer disease -- OTC PPI BUSINESS DIRECTOR. Continued -- pain management, supportive care, IVF [...] Problem(s): Persistent recurrent vomiting -- OTC PPI BUSINESS DIRECTOR. Continued -- pain management, supportive care, IVF [...] Other chest pain -- cardiology consulted -- [place] to be atypical for CAD -- Suspect [...] HTN (hypertension) -- not on any meds BUSINESS DIRECTOR -- monitor -- 07/09/2025 in acceptable range * Bradford Sauceda MD - 07/09/2025 3:03 PM ESTAssociated Problem(s): History of chronic CHF -- not on any meds BUSINESS DIRECTOR -- Appears compensated -- Echo as noted above. -- 07/09/2025 no acute issues * Bradford Sauceda MD - 07/09/2025 11:09 AM ESTAssociated Problem(s): Generalized anxiety disorder -- Ativan, Vistaril, Seroquel BUSINESS DIRECTOR. Continued -- psychiatry consulted * Bradford Sauceda MD - 07/09/2025 11:09 AM ESTAssociated Problem(s): Major depressive disorder, recurrent, moderate (HCC) -- Ativan, Vistaril, Seroquel BUSINESS DIRECTOR. Continued -- psychiatry consulted * Bradford Sauceda MD - 07/09/2025 11:09 AM ESTAssociated Problem(s): Insomnia due to mental disorder -- AtJay gimenez Seroquel BUSINESS DIRECTOR. Continued -- psychiatry consulted * Bradford Sauceda MD - 07/09/2025 11:09 AM ESTAssociated Problem(s): Adjustment disorder with mixed anxiety and depressed mood -- AtJay gimenez Seroquel BUSINESS DIRECTOR. Continued -- psychiatry consulted * Bradford Sauceda MD - 07/09/2025 11:09 AM ESTAssociated Problem(s): Acute reaction to situational stress -- AtivanJay Seroquel BUSINESS DIRECTOR. Continued -- psychiatry consulted * Bardford Sauceda MD - 07/09/2025 11:09 AM ESTAssociated Problem(s): Borderline personality disorder (HCC) -- AtJay gimenez Seroquel BUSINESS DIRECTOR. Continued -- psychiatry consulted * Bradford Sauceda [...] back pain Chronic abdominal pain -- Lyrica BUSINESS DIRECTOR. Continued -- Pain controlled with meds * Bradford Sauceda MD - 07/09/2025 11:09 AM ESTAssociated Problem(s): Chronic pain Chronic abdominal pain -- Lyrica BUSINESS DIRECTOR. Continued -- Pain controlled with meds * [...] 3/1 mg carb/kg/min. @ Goal TPN will [id number]% of protein needs and low range of calorie needs. Oral intake is dependent on pts pain, therefore any oral intake is a bonus. Medical Food Supplements: Glucerna Therapeutic; Beneprotein Vitamin and Mineral Supplements: Vitamin D (w/Clinimix E) Nutrition-Related Medication Management: Protonix Collaboration And Referral Of Nutrition Care: Collaboration with other providers (DATA ARCHITECT MANAGER, RN, Pharmacist) -- B12 and folate wnl. [...] 3/1 mg carb/kg/min. @ Goal TPN will [id number]% of protein needs and low range of calorie needs. Oral intake is dependent on pts pain, therefore any oral intake is a bonus. Medical Food Supplements: Glucerna Therapeutic; Beneprotein Vitamin and Mineral Supplements: Vitamin D (w/Clinimix E) Nutrition-Related Medication Management: Protonix Collaboration And Referral Of Nutrition Care: Collaboration with other providers (DATA ARCHITECT MANAGER, RN, Pharmacist) -- B12 and folate wnl. Iron normal. Transferrin sat low, TIBC wnl. Mag wnl. Phos wnl. Triglyceride 59 -- Prealbumin 14.7 -- TPN * Bradford Sauceda MD - 07/09/2025 11:09 AM ESTAssociated Problem(s): Dental infection -- Augmentin BUSINESS DIRECTOR. Continued -- improving * Bradford Sauceda MD [...] disease Persistent recurrent vomiting -- OTC PPI BUSINESS DIRECTOR. Continued -- pain management, supportive care, IVF [...] personality disorder (HCC) -- Ativan, Vistaril, Seroquel BUSINESS DIRECTOR. Continued -- psychiatry consulted Suicidal ideations -- Psychiatry consulted -- Suicide precautions -- Improved. No current suicidal ideations or Intent. -- CBO and suicide precautions discontinued. -- To follow-up outpatient with her mental health providers Anorexia -- Psychiatry and GI consulted -- EGD findings as noted above Cannabis dependence (HCC) -- Advised to stop Other chest pain -- cardiology consulted -- [place] to be atypical for CAD -- Suspect [...] HTN (hypertension) -- not on any meds BUSINESS DIRECTOR -- monitor -- 07/09/2025 in acceptable range History of DVT (deep vein thrombosis) History of pulmonary embolism -- appears to be provoked -- no longer on anticoagulation Iron deficiency anemia -- Hemoglobin normal. MCV low Chronic low back pain Chronic pain Chronic abdominal pain -- Lyrica BUSINESS DIRECTOR. Continued -- Pain controlled with meds Cardiac murmur -- Echo as noted above History of chronic CHF -- not on any meds BUSINESS DIRECTOR -- Appears compensated -- Echo as noted [...] Of Nutrition Care: Collaboration with other providers (DATA ARCHITECT MANAGER, RN, Pharmacist) -- B12 and folate wnl. Iron normal. Transferrin sat low, TIBC wnl. Mag wnl. Phos wnl. Triglyceride 59 -- Prealbumin 14.7 -- TPN Dental infection -- Augmentin BUSINESS DIRECTOR. Continued -- improving History of endometrial cancer [...] 07/09/25. Bradford Sauceda MD * Tiny Tellez, [facility] - 07/09/2025 9:26 AM EST Pharmacy Note: [...] Problem(s): Generalized abdominal pain -- OTC PPI BUSINESS DIRECTOR. Continued -- pain management, supportive care, IVF [...] of chronic abdominal pain -- OTC PPI BUSINESS DIRECTOR. Continued -- pain management, supportive care, IVF [...] History of gastric bypass -- OTC PPI BUSINESS DIRECTOR. Continued -- pain management, supportive care, IVF [...] ESTAssociated Problem(s): Chronic nausea -- OTC PPI BUSINESS DIRECTOR. Continued -- pain management, supportive care, IVF [...] GERD (gastroesophageal reflux disease) -- OTC PPI BUSINESS DIRECTOR. Continued -- pain management, supportive care, IVF [...] Problem(s): Peptic ulcer disease -- OTC PPI BUSINESS DIRECTOR. Continued -- pain management, supportive care, IVF [...] Problem(s): Persistent recurrent vomiting -- OTC PPI BUSINESS DIRECTOR. Continued -- pain management, supportive care, IVF [...] ESTAssociated Problem(s): Chronic nausea -- OTC PPI BUSINESS DIRECTOR. Continued -- pain management, supportive care, IVF [...] nutritional status improves. -- pain controlled. * Bradfodr Sauceda MD - 07/08/2025 8:21 PM ESTAssociated Problem(s): GERD (gastroesophageal reflux disease) -- OTC PPI BUSINESS DIRECTOR. Continued -- pain management, supportive care, IVF [...] Problem(s): Peptic ulcer disease -- OTC PPI BUSINESS DIRECTOR. Continued -- pain management, supportive care, IVF [...] Problem(s): Persistent recurrent vomiting -- OTC PPI BUSINESS DIRECTOR. Continued -- pain management, supportive care, IVF [...] HTN (hypertension) -- not on any meds BUSINESS DIRECTOR -- monitor -- 07/07/2025 in acceptable range * Bradford Sauceda MD - 07/08/2025 8:21 PM ESTAssociated Problem(s): Generalized anxiety disorder -- Ativan, Armandtaril, Seroquel BUSINESS DIRECTOR. Continued -- psychiatry consulted * Bradford Sauceda MD - 07/08/2025 8:21 PM ESTAssociated Problem(s): Major depressive disorder, recurrent, moderate (HCC) -- Ativan, Vistaril, Seroquel BUSINESS DIRECTOR. Continued -- psychiatry consulted * Bradford Sauceda MD - 07/08/2025 8:21 PM ESTAssociated Problem(s): Insomnia due to mental disorder -- Ativan, Vistaril, Seroquel BUSINESS DIRECTOR. Continued -- psychiatry consulted * Bradford Sauceda MD - 07/08/2025 8:21 PM ESTAssociated Problem(s): Adjustment disorder with mixed anxiety and depressed mood -- Ativan, Armandtaril, Seroquel BUSINESS DIRECTOR. Continued -- psychiatry consulted * Bradford Sauceda MD - 07/08/2025 8:21 PM ESTAssociated Problem(s): Acute reaction to situational stress -- AtivanAlicial Seroquel BUSINESS DIRECTOR. Continued -- psychiatry consulted * Bradford Sauceda MD - 07/08/2025 8:21 PM ESTAssociated Problem(s): Borderline personality disorder (HCC) -- Ativan, Alicial, Seroquel BUSINESS DIRECTOR. Continued -- psychiatry consulted * Bradford Sauceda [...] Other chest pain -- cardiology consulted -- [place] to be atypical for CAD -- Suspect [...] back pain Chronic abdominal pain -- Lyrica BUSINESS DIRECTOR. Continued -- Pain controlled with meds * Bradfrod Sauceda MD - 07/08/2025 8:21 PM ESTAssociated Problem(s): Chronic pain Chronic abdominal pain -- Lyrica BUSINESS DIRECTOR. Continued -- Pain controlled with meds * Bradford Sauceda MD - 07/08/2025 8:21 PM ESTAssociated Problem(s): Cardiac murmur -- Echo as noted above * Bradford Sauceda MD - 07/08/2025 8:21 PM ESTAssociated Problem(s): History of chronic CHF -- not on any meds BUSINESS DIRECTOR -- Appears compensated -- Echo as noted [...] 3/1 mg carb/kg/min. @ Goal TPN will [id number]% of protein needs and low range of calorie needs. Oral intake is dependent on pts pain, therefore any oral intake is a bonus. Medical Food Supplements: Glucerna Therapeutic; Beneprotein Vitamin and Mineral Supplements: Vitamin D (w/Clinimix E) Nutrition-Related Medication Management: Protonix Collaboration And Referral Of Nutrition Care: Collaboration with other providers (DATA ARCHITECT MANAGER, RN, Pharmacist) -- B12 and folate wnl. [...] 3/1 mg carb/kg/min. @ Goal TPN will [id number]% of protein needs and low range of calorie needs. Oral intake is dependent on pts pain, therefore any oral intake is a bonus. Medical Food Supplements: Glucerna Therapeutic; Beneprotein Vitamin and Mineral Supplements: Vitamin D (w/Clinimix E) Nutrition-Related Medication Management: Protonix Collaboration And Referral Of Nutrition Care: Collaboration with other providers (DATA ARCHITECT MANAGER, RN, Pharmacist) -- B12 and folate wnl. Iron normal. Transferrin sat low, TIBC wnl. Mag wnl. Phos wnl. Triglyceride 59 -- Prealbumin 14.7 -- TPN * Bradford Sauceda MD - 07/08/2025 8:21 PM ESTAssociated Problem(s): Dental infection -- Augmentin BUSINESS DIRECTOR. Continued -- improving * Bradford Sauceda MD - 07/08/2025 8:21 PM ESTAssociated Problem(s): Vitamin D insufficiency -- Vitamin D supplementation * Bradford Sauceda MD - 07/08/2025 8:21 PM ESTAssociated Problem(s): Generalized abdominal pain -- OTC PPI BUSINESS DIRECTOR. Continued -- pain management, supportive care, IVF [...] of chronic abdominal pain -- OTC PPI BUSINESS DIRECTOR. Continued -- pain management, supportive care, IVF [...] History of gastric bypass -- OTC PPI BUSINESS DIRECTOR. Continued -- pain management, supportive care, IVF [...] HTN (hypertension) -- not on any meds BUSINESS DIRECTOR -- monitor -- 07/08/2025 in acceptable range * Bradford Sauceda MD - 07/08/2025 7:47 PM ESTAssociated Problem(s): Generalized anxiety disorder -- Ativan, Alicial, Seroquel BUSINESS DIRECTOR. Continued -- psychiatry consulted * Bradford Sauceda MD - 07/08/2025 7:47 PM ESTAssociated Problem(s): Major depressive disorder, recurrent, moderate (HCC) -- Ativan, Armandtaril, Seroquel BUSINESS DIRECTOR. Continued -- psychiatry consulted * Bradford Sauceda MD - 07/08/2025 7:47 PM ESTAssociated Problem(s): Insomnia due to mental disorder -- Ativan, Armandtaril, Seroquel BUSINESS DIRECTOR. Continued -- psychiatry consulted * Bradford Sauceda MD - 07/08/2025 7:47 PM ESTAssociated Problem(s): Adjustment disorder with mixed anxiety and depressed mood -- AtivanArmandtaril, Seroquel BUSINESS DIRECTOR. Continued -- psychiatry consulted * Bradford Sauceda MD - 07/08/2025 7:47 PM ESTAssociated Problem(s): Acute reaction to situational stress -- Ativan, Vistaril, Seroquel BUSINESS DIRECTOR. Continued -- psychiatry consulted * Bradford Sauceda MD - 07/08/2025 7:47 PM ESTAssociated Problem(s): Borderline personality disorder (HCC) -- Ativan, Vistaril, Seroquel BUSINESS DIRECTOR. Continued -- psychiatry consulted * Bradford Sauceda [...] Other chest pain -- cardiology consulted -- [place] to be atypical for CAD -- Suspect [...] back pain Chronic abdominal pain -- Lyrica BUSINESS DIRECTOR. Continued -- Pain controlled with meds * Bradford Sauceda MD - 07/08/2025 7:47 PM ESTAssociated Problem(s): Chronic pain Chronic abdominal pain -- Lyrica BUSINESS DIRECTOR. Continued -- Pain controlled with meds * Bradford Sauceda MD - 07/08/2025 7:47 PM ESTAssociated Problem(s): Cardiac murmur -- Echo as noted above * Bradford Sauceda MD - 07/08/2025 7:47 PM ESTAssociated Problem(s): History of chronic CHF -- not on any meds BUSINESS DIRECTOR -- Appears compensated -- Echo as noted [...] Of Nutrition Care: Collaboration with other providers (DATA ARCHITECT MANAGER, RN, Pharmacist) -- B12 and folate wnl. [...] 3/1 mg carb/kg/min. @ Goal TPN will [id number]% of protein needs and low range of calorie needs. Oral intake is dependent on pts pain, therefore any oral intake is a bonus. Medical Food Supplements: Glucerna Therapeutic; Beneprotein Vitamin and Mineral Supplements: Vitamin D (w/Clinimix E) Nutrition-Related Medication Management: Protonix Collaboration And Referral Of Nutrition Care: Collaboration with other providers (DATA ARCHITECT MANAGER, RN, Pharmacist) -- B12 and folate wnl. Iron normal. Transferrin sat low, TIBC wnl. Mag wnl. Phos wnl. Triglyceride 59 -- Prealbumin 14.7 -- TPN * Bradford Sauceda MD - 07/08/2025 7:47 PM ESTAssociated Problem(s): Dental infection -- Augmentin BUSINESS DIRECTOR. Continued -- improving * Bradford Sauceda MD [...] disease Persistent recurrent vomiting -- OTC PPI BUSINESS DIRECTOR. Continued -- pain management, supportive care, IVF [...] personality disorder (HCC) -- Ativan, Vistaril, Seroquel BUSINESS DIRECTOR. Continued -- psychiatry consulted Suicidal ideations -- Psychiatry consulted -- Suicide precautions -- Improved. No current suicidal ideations or Intent. -- CBO and suicide precautions discontinued. -- To follow-up outpatient with her mental health providers Anorexia -- Psychiatry and GI consulted Cannabis dependence (HCC) -- Advised to stop Other chest pain -- cardiology consulted -- [place] to be atypical for CAD -- Suspect [...] HTN (hypertension) -- not on any meds BUSINESS DIRECTOR -- monitor -- 07/08/2025 in acceptable range History of DVT (deep vein thrombosis) History of pulmonary embolism -- appears to be provoked -- no longer on anticoagulation Iron deficiency anemia -- Hemoglobin normal. MCV Chronic low back pain Chronic pain Chronic abdominal pain -- Lyrica BUSINESS DIRECTOR. Continued -- Pain controlled with meds Cardiac murmur -- Echo as noted above History of chronic CHF -- not on any meds BUSINESS DIRECTOR -- Appears compensated -- Echo as noted [...] 3/1 mg carb/kg/min. @ Goal TPN will [id number]% of protein needs and low range of calorie needs. Oral intake is dependent on pts pain, therefore any oral intake is a bonus. Medical Food Supplements: Glucerna Therapeutic; Beneprotein Vitamin and Mineral Supplements: Vitamin D (w/Clinimix E) Nutrition-Related Medication Management: Protonix Collaboration And Referral Of Nutrition Care: Collaboration with other providers (DATA ARCHITECT MANAGER, RN, Pharmacist) -- B12 and folate wnl. Iron normal. Transferrin sat low, TIBC wnl. Mag wnl. Phos wnl. Triglyceride 59 -- Prealbumin 14.7 -- TPN Dental infection -- Augmentin BUSINESS DIRECTOR. Continued -- improving History of endometrial cancer [...] 07/08/25. Bradford Sauceda MD * Tiny Tellez [facility] - 07/08/2025 9:32 AM EST Pharmacy Note: [...] adjust electrolytes. Thank you, Tiny Tellez, PharmD, [facility] 07/08/2025 9:32 AM * Bradford Sauceda MD - 07/07/2025 11:17 PM EST Images from the original note were not included. PROGRESS NOTE Assessment/Plan: Assessment: Assessment & Plan Generalized abdominal pain Acute exacerbation of chronic abdominal pain History of gastric bypass Chronic nausea GERD (gastroesophageal reflux disease) Peptic ulcer disease Persistent recurrent vomiting -- OTC PPI BUSINESS DIRECTOR. Continued -- pain management, supportive care, IVF [...] HTN (hypertension) -- not on any meds BUSINESS DIRECTOR -- monitor -- 07/07/2025 in acceptable range Generalized anxiety disorder Major depressive disorder, recurrent, moderate (HCC) Insomnia due to mental disorder Adjustment disorder with mixed anxiety and depressed mood Acute reaction to situational stress Borderline personality disorder (HCC) -- Ativan, Vistaril, Seroquel BUSINESS DIRECTOR. Continued -- psychiatry consulted Suicidal ideations -- Psychiatry consulted -- Suicide precautions -- Improved. No current suicidal ideations or Intent. -- CBO and suicide precautions discontinued. -- To follow-up outpatient with her mental health providers Anorexia -- Psychiatry and GI consulted -- EGD findings as noted above Cannabis dependence (HCC) -- Advised to stop Other chest pain -- cardiology consulted -- [place] to be atypical for CAD -- Suspect [...] Chronic pain Chronic abdominal pain -- Lyrica BUSINESS DIRECTOR. Continued -- Pain controlled with meds Cardiac murmur -- Echo as noted above History of chronic CHF -- not on any meds BUSINESS DIRECTOR -- Appears compensated -- Echo as noted [...] 3/1 mg carb/kg/min. @ Goal TPN will [id number]% of protein needs and low range of calorie needs. Oral intake is dependent on pts pain, therefore any oral intake is a bonus. Medical Food Supplements: Glucerna Therapeutic; Beneprotein Vitamin and Mineral Supplements: Vitamin D (w/Clinimix E) Nutrition-Related Medication Management: Protonix Collaboration And Referral Of Nutrition Care: Collaboration with other providers (DATA ARCHITECT MANAGER, RN, Pharmacist) -- B12 and folate wnl. Iron normal. Transferrin sat low, TIBC wnl. Mag wnl. Phos wnl. Triglyceride 59 -- Prealbumin 14.7 -- TPN Dental infection -- Augmentin BUSINESS DIRECTOR. Continued -- improving History of endometrial cancer [...] visit 07/07/25 Visited With Patient Visited By Wire Rope Fabrication Supervisor Reason for Visit Follow-up Interventions with Family Empowerment Interventions Provided vice chancellor education (Wire Rope Fabrication Supervisor(s) will return Thu (07/10)) Care Plan Plan for Follow-Up Wire Rope Fabrication Supervisor(s) remains available as needed Additional Notes Additional Notes if needed (Alexei still catching up on much needed sleep. ) Roxana Hodges MDiv Wire Rope Fabrication Supervisor, Pastoral and Spiritual Care For non-urgent requests, please place a Pastoral Care consult in [facility]. For all urgent matters, please send an urgent [facility] Secure Chat to the Pastoral Care group at your location. Between 11pm and 7am, please use On-Call Finder to send an [facility] Secure Chat to the on-call director of graduate admissions. Pastoral Care office phone numbers: EDG/COV/GRT [phone], RASHEL [phone], FTT [phone], DBN [phone] * Roxana Hodges - 07/07/2025 5:53 PM EST Images from the original note were not included. 07/07/25 1700 Reason for Visit Date of visit 07/07/25 Visited With Patient asleep Visited By Wire Rope Fabrication Supervisor Reason for Visit Follow-up Interventions with Family Collaboration Interventions Consulted with interdisciplinary team Care Plan Plan for Follow-Up Wire Rope Fabrication Supervisor(s) will continue to follow throughout admission Roxana Hodges MDiv Wire Rope Fabrication Supervisor, Pastoral and Spiritual Care For non-urgent requests, please place a Pastoral Care consult in [facility]. For all urgent matters, please send an urgent Epic Secure Chat to the Pastoral Care group at your location. Between 11pm and 7am, please use On-Call Finder to send an Epic Secure Chat to the on-call director of graduate admissions. Pastoral Care office phone numbers: EDG/COV/GRT [phone], RASHEL [phone], FTT [phone], DBN [phone] * Roxana Hodges - 07/07/2025 3:30 PM EST 07/07/25 1500 Reason for Visit Date of visit 07/07/25 Visited With Patient not available Visited By Wire Rope Fabrication Supervisor Reason for Visit Follow-up Interventions with Family Collaboration Interventions Consulted with interdisciplinary team (Alexei marlow at this time) Care Plan Plan for Follow-Up Wire Rope Fabrication Supervisor(s) will continue to follow throughout admission Roxana Hodges MDiv Wire Rope Fabrication Supervisor, Pastoral and Spiritual Care For non-urgent requests, please place a Pastoral Care consult in [facility]. For all urgent matters, please send an urgent Epic Secure Chat to the Pastoral Care group at your location. Between 11pm and 7am, please use On-Call Finder to send an Epic Secure Chat to the on-call director of graduate admissions. Pastoral Care office phone numbers: EDG/COV/GRT [phone], RASHEL [phone], FTT [phone], DBN [phone] * Tiny Tellez [facility] - 07/07/2025 12:10 PM EST Pharmacy Note: [...] [address],[place] - 07/07/2025 9:16 AM EST [facility] Nutrition Malnutrition Reassessment Evidence Supported Malnutrition Diagnosis: [...] Status: Active nutrition diagnosis Nutrition Prescription: Kcals: [id number] kcal (30-35 kcal/55.9 kg). Goals for possible [...] Of Nutrition Care: Collaboration with other providers (DATA ARCHITECT MANAGER, RN, Pharmacist) Nutrition Discharge Instructions: Home TPN (total parenteral nutrition) and oral diet as tolerated.Recommend continue strawberry Glucerna and protein powder of choice as tolerated Alexei Macias is a 40 y.o. female patient. Admit Diagnosis: Abdominal pain [R10.9] Anorexia [R63.0] Reason For Assessment: Parenteral nutrition Subjective: Subjective Comment: Pt seen, reports good tolerance to [place] diet. Yesterday reported liking [place] Glucerna and was willing to drink, but today she reports not drinking any yesterday. Per DATA ARCHITECT MANAGER, ideally would like to d/c this weekend with home TPN. Labs look good, per discussion with DATA ARCHITECT MANAGER and pharmacist, will advance TPN to goal. [...] I/O last 3 completed shifts: In: 2705 [P.O.:7587] Out: - Edema: Abdomen: Abdominal/GI Abdomen Inspection: Soft, Flat Bowel Sounds (All Quadrants): Active, Audible Abdominal palpation: Tenderness When was last BM? (Date): 07/04/25 Stool Assessment: Stool Occurrence: 1 Stool Appearance: Type 5 [place] Stool Chart Stool Color: Brown Stool Amount: Medium Biochemical Data/Medical Tests: Pertinent Labs: 07/07 gluc 118, mg 1.9, Na+ 139, K+ 4.3, phos 3.8 Clinical Course: Clinical Course: Admitted d/t Chronic CP and epigastric pain.Surgery, GI, Cardiology and Psych consulted. Chronic Nausea, PUD, Recurrent vomiting. Chronic idiopathic [id number]/19 EGD-MD notes will need a surgical J tube or TPN. 07/06 start TPN * Tamara Karimi PA-C - 07/07/2025 9:00 AM EST General Surgery Attending Progress Note CSN:[id number] NAME:Alexei Macias :1985 Active Hospital Problems Diagnosis [...] 1-2 weeks F/U Appointment Schedule Method?: call [phone] Pain prescriptions sent to pharmacy?: No Antibiotic [...] Ref Range CASE REPORT Surgical Pathology Case: [id number] Authorizing Provider: David Peguero MD Collected: 07/05/2025 1431 Ordering Location: [address] Received: 07/05/2025 1534 Pathologist: Marilou Stanton [...] digital images (whole slide images) on the [employer] Digital Pathology platform validated at [facility]. EMBEDDED IMAGES PT / INR Collection Time: [...] back pain Chronic abdominal pain -- Lyrica BUSINESS DIRECTOR. Continued -- Pain controlled with meds * Bradford Sauceda MD - 07/06/2025 10:27 PM ESTAssociated Problem(s): Chronic pain Chronic abdominal pain -- Lyrica BUSINESS DIRECTOR. Continued -- Pain controlled with meds * Bradford Sauceda MD - 07/06/2025 10:27 PM ESTAssociated Problem(s): Cardiac murmur -- Echo as noted above * Bradford Sauceda MD - 07/06/2025 10:27 PM ESTAssociated Problem(s): History of chronic CHF -- not on any meds BUSINESS DIRECTOR -- Appears compensated -- Echo as noted [...] 3/1 mg carb/kg/min. @ Goal TPN will [id number]% of protein needs and low range of calorie needs. Oral intake is dependent on pts pain, therefore any oral intake is a bonus. Medical Food Supplements: Glucerna Therapeutic; Beneprotein Vitamin and Mineral Supplements: Vitamin D (w/Clinimix E) Nutrition-Related Medication Management: Protonix, LR's @ 75 ml/hr Collaboration And Referral Of Nutrition Care: Collaboration with other providers (DATA ARCHITECT MANAGER, RN) -- B12 and folate wnl. Iron [...] 3/1 mg carb/kg/min. @ Goal TPN will [id number]% of protein needs and low range of calorie needs. Oral intake is dependent on pts pain, therefore any oral intake is a bonus. Medical Food Supplements: Glucerna Therapeutic; Beneprotein Vitamin and Mineral Supplements: Vitamin D (w/Clinimix E) Nutrition-Related Medication Management: Protonix, LR's @ 75 ml/hr Collaboration And Referral Of Nutrition Care: Collaboration with other providers (DATA ARCHITECT MANAGER, RN) -- B12 and folate wnl. Iron normal. Transferrin sat low, TIBC wnl. Mag wnl. Phos wnl. Triglyceride 59 -- Prealbumin 14.7 -- TPN * Bradford Sauceda MD - 07/06/2025 10:27 PM ESTAssociated Problem(s): Dental infection -- Augmentin BUSINESS DIRECTOR. Continued -- improving * Bradford Sauceda MD - 07/06/2025 10:27 PM ESTAssociated Problem(s): Vitamin D insufficiency -- Vitamin D supplementation * Bradford Sauceda MD - 07/06/2025 10:27 PM ESTAssociated Problem(s): Generalized abdominal pain -- OTC PPI BUSINESS DIRECTOR. Continued -- pain management, supportive care, IVF [...] of chronic abdominal pain -- OTC PPI BUSINESS DIRECTOR. Continued -- pain management, supportive care, IVF [...] History of gastric bypass -- OTC PPI BUSINESS DIRECTOR. Continued -- pain management, supportive care, IVF [...] ESTAssociated Problem(s): Chronic nausea -- OTC PPI BUSINESS DIRECTOR. Continued -- pain management, supportive care, IVF [...] GERD (gastroesophageal reflux disease) -- OTC PPI BUSINESS DIRECTOR. Continued -- pain management, supportive care, IVF [...] Problem(s): Peptic ulcer disease -- OTC PPI BUSINESS DIRECTOR. Continued -- pain management, supportive care, IVF [...] Problem(s): Persistent recurrent vomiting -- OTC PPI BUSINESS DIRECTOR. Continued -- pain management, supportive care, IVF [...] Chronic idiopathic constipation -- GI consulted * Bradfrod Sauceda MD - 07/06/2025 10:27 PM ESTAssociated Problem(s): Paroxysmal atrial fibrillation (HCC) -- history not clear -- not on any meds * Bradford Sauceda MD - 07/06/2025 10:27 PM ESTAssociated Problem(s): HTN (hypertension) -- not on any meds BUSINESS DIRECTOR -- monitor -- 07/06/2025 in acceptable range * Bradford Sauceda MD - 07/06/2025 10:27 PM ESTAssociated Problem(s): Generalized anxiety disorder -- Ativan, Alicial, Seroquel BUSINESS DIRECTOR. Continued -- psychiatry consulted * Bradford Sauceda MD - 07/06/2025 10:27 PM ESTAssociated Problem(s): Major depressive disorder, recurrent, moderate (HCC) -- AtivanAlicial Seroquel BUSINESS DIRECTOR. Continued -- psychiatry consulted * Bradford Sauceda MD - 07/06/2025 10:27 PM ESTAssociated Problem(s): Insomnia due to mental disorder -- Ativan, Alicail, Seroquel BUSINESS DIRECTOR. Continued -- psychiatry consulted * Bradford Sauceda MD - 07/06/2025 10:27 PM ESTAssociated Problem(s): Adjustment disorder with mixed anxiety and depressed mood -- AtivanJay Seroquel BUSINESS DIRECTOR. Continued -- psychiatry consulted * Bradford Sauceda MD - 07/06/2025 10:27 PM ESTAssociated Problem(s): Acute reaction to situational stress -- AtivanJay Seroquel BUSINESS DIRECTOR. Continued -- psychiatry consulted * Bradford Sauceda MD - 07/06/2025 10:27 PM ESTAssociated Problem(s): Borderline personality disorder (HCC) -- Ativan, Vistaril, Seroquel BUSINESS DIRECTOR. Continued -- psychiatry consulted * Bradford Sauceda [...] Other chest pain -- cardiology consulted -- [place] to be atypical for CAD -- Suspect [...] disease Persistent recurrent vomiting -- OTC PPI BUSINESS DIRECTOR. Continued -- pain management, supportive care, IVF [...] HTN (hypertension) -- not on any meds BUSINESS DIRECTOR -- monitor -- 07/06/2025 in acceptable range Generalized anxiety disorder Major depressive disorder, recurrent, moderate (HCC) Insomnia due to mental disorder Adjustment disorder with mixed anxiety and depressed mood Acute reaction to situational stress Borderline personality disorder (HCC) -- Ativan, Vistaril, Seroquel BUSINESS DIRECTOR. Continued -- psychiatry consulted Suicidal ideations -- Psychiatry consulted -- Suicide precautions -- Improved. No current suicidal ideations or Intent. -- CBO and suicide precautions discontinued. -- To follow-up outpatient with her mental health providers Anorexia -- Psychiatry and GI consulted Cannabis dependence (HCC) -- Advised to stop Other chest pain -- cardiology consulted -- [place] to be atypical for CAD -- Suspect [...] Chronic pain Chronic abdominal pain -- Lyrica BUSINESS DIRECTOR. Continued -- Pain controlled with meds Cardiac murmur -- Echo as noted above History of chronic CHF -- not on any meds BUSINESS DIRECTOR -- Appears compensated -- Echo as noted [...] 14.7 -- TPN Dental infection -- Augmentin BUSINESS DIRECTOR. Continued -- improving History of endometrial cancer [...] visit 07/06/25 Visited With Patient Visited By Wire Rope Fabrication Supervisor Reason for Visit Follow-up Care Plan Plan for Follow-Up Wire Rope Fabrication Supervisor(s) will attempt follow-up visit(s) Additional Notes Additional Notes if needed Alexei keeps falling asleep, asked director of graduate admissions to come back tomorrow. Carpet Measurer will follow-up earlier in the afternoon 07/07. Roxana Hodges MDiv Wire Rope Fabrication Supervisor, Pastoral and Spiritual Care For non-urgent requests, please place a Pastoral Care consult in [facility]. For all urgent matters, please send an urgent Epic Secure Chat to the Pastoral Care group at your location. Between 11pm and 7am, please use On-Call Finder to send an Epic Secure Chat to the on-call director of graduate admissions. [facility] phone numbers: EDG/COV/GRT [phone], RASHEL [phone], FTT [phone], DBN [phone] * Roxana Hodges - 07/06/2025 7:59 PM EST Images from the original note were not included. 07/06/25 1900 Reason for Visit Date of visit 07/06/25 Visited With Patient asleep Visited By Wire Rope Fabrication Supervisor Reason for Visit Follow-up Interventions with Family Collaboration Interventions Consulted with interdisciplinary team Care Plan Plan for Follow-Up Wire Rope Fabrication Supervisor(s) will attempt follow-up visit(s) Roxana Hodges MDiv Wire Rope Fabrication Supervisor, Pastoral and Spiritual Care For non-urgent requests, please place a Pastoral Care consult in [facility]. For all urgent matters, please send an urgent Epic Secure Chat to the Pastoral Care group at your location. Between 11pm and 7am, please use On-Call Finder to send an Epic Secure Chat to the on-call director of graduate admissions. [facility] phone numbers: EDG/COV/GRT [phone], RASHEL [phone], FTT [phone], DBN [phone] * Kelli Woods MSW - 07/06/2025 4:54 PM EST 07/06/2025 FENCE RIDER/ SHYANNE GARCIA checked in and followed up [...] Discussed discharge plans with Care Team at [facility] Yes, with nurse in attendance;Yes, with doctor in attendance Actual Discharge Plan 07/06/25 UPDATE: [facility] has accepted Pt for TPN. Pt [place] be going [place] with TPN. Pt will be followed at [facility] for PICC care. Pt transportation TBD day of DC. SW will continue to follow along. * Ham Jaramillo MD - 07/06/2025 11:52 AM EST Reviewed echocardiogram complete no significant abnormalities noted. No further workup needed. Willsign off. * Ayaka Giraldo [facility] - 07/06/2025 11:45 AM EST Pharmacy Consult [...] Mcleod RD,LD - 07/06/2025 9:48 AM EST [facility] Nutrition Malnutrition Reassessment Evidence Supported Malnutrition Diagnosis: [...] Status: Active nutrition diagnosis Nutrition Prescription: Kcals: 3787-7201 kcal (30-35 kcal/55.9 kg). Goals for possible [...] Of Nutrition Care: Collaboration with other providers (DATA ARCHITECT MANAGER, RN) Nutrition Discharge Instructions: Home TPN (total [...] mom was on it .Per discussion with DATA ARCHITECT MANAGER, d/t malnourished state and use of cigarettesis [...] Stool Occurrence: 1 Stool Appearance: Type 5 [place] Stool Chart Stool Color: Brown Stool Amount: [...] Chronic Nausea, PUD, Recurrent vomiting. Chronic idiopathic [id number]/19 EGD-MD notes will need a surgical J tube or TPN. 07/06 start TPN * Tamara Karimi PA-C - 07/06/2025 8:30 AM EST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 [place] for anxiety- says they raine davies Has been admitted to [facility] -anorexia and anxiety Had bariatric surgery 4 years ago, was 365 lbs, now weighs 108 lbs. Says no one cared about my anorexia outpatient: Was going to [facility] in [place] -stopped going about 6months ago after her health declined and she was not able to makeappointments so she was released from care Also saw therapist in [place], [place] SI/SA: chronic thoughts but denied [...] reevaluate tomorrow. Will give a referral to [facility] to see if they can assist heranorexia-did explain that she has an underlying medical reason which maybe limiting factor to treatment options. She declined interest in Remeron for appetite Declines switch of Seroquel to olanzapine to help with appetite. No med changes made Ativan rx'd by her GI doc on an OP basis , continue BUSINESS DIRECTOR dose Jesi Granados APRN, PMHNP This chart [...] failure . [place]. Soft murmur on exam [...] chronic pericarditis andheart failure who sees a pan dumper in [place] presents with worseningepigastric pain. The epigastric pain [...] 4 mg Intravenous Q6H PRN Kathy Geronimo DATA ARCHITECT MANAGER oxyCODONE (ROXICODONE) immediate release tablet 5-10 mg [...] 8:30 AM ESTThis note is in progress. [facility] Surgical Consultation Note Admit Date: 07/03/2025 LOS: 1 day Body mass index is 18.2 kg/m . IMPRESSION Active Hospital Problems Diagnosis *Generalized abdominal pain PLAN s/p gastric bypass per Dr. Fitz Velez 2020 in [place], [place] Chronic abdominal pain with acute episode [...] surgicalhistory. Patient presents per direct admission/transfer from [facility], for which she was seen for this abdominal pain andsuicidal ideations - paper chart reviewed from [facility]. Patient reports shehad a gastric bypass per Dr. Fitz Velez in 2020. She reports she has hadabdominal pain, nausea, and vomiting since that surgery. She tells me thatshe has been to [facility], [facility], and for work upand treatment and [...] had an appendectomy. CT abd[facility]vis from [facility]03[facility]: no intraabdominalfindings CT abd/pelvis with contrast [...] Study: No results found for: TSH , O3FKYSQ , T3FREE Radiology: No results found. [1] [...] 25-50 mg, Oral, QID PRN,Houlehan, Kathy A, DATA ARCHITECT MANAGER LORazepam (ATIVAN) tablet 1 mg, 1 mg, Oral, BID PRN, Houlehan, KathleenA, DATA ARCHITECT MANAGER, 1 mg at 07/03/25 2344 ondansetron (ZOFRAN) tablet 4 mg, 4 mg, Oral, Q6H PRN OR ondansetron(ZOFRAN) injection 4 mg, 4 mg, Intravenous, Q6H PRN, Houlehan, Kathy A,DATA ARCHITECT MANAGER oxyCODONE (ROXICODONE) immediate release tablet 5-10 mg, 5-10 mg, Oral,Q4H PRN, Houlehan, Kathy A, DATA ARCHITECT MANAGER, 5 mg at 07/04/25 0726 pregabalin (LYRICA) capsule 200 mg, 200 mg, Oral, BID, Houlehan,Kathy A, DATA ARCHITECT MANAGER, 200 mg at 07/04/25 0846 QUEtiapine (SEROquel) tablet 100 mg, 100 mg, Oral, Nightly, Houlehan,Kathy A, DATA ARCHITECT MANAGER, 100 mg at 07/03/25 2345 [3] Past [...] GLUCOSE METER POC (07/19/2025 9:49 AM EST) [facility] Glucose Meter POC 82 70 - 100 mg/dL 07/19/2025 9:51 AM [facility] Sample Type Capillary 07/19/2025 9:51 AM [facility] Patient Status Non-Critical Patient 07/19/2025 9:51 AM EST [facility] Blood BLOOD SPECIMEN / Unknown 07/19/2025 9:49 AM EST 07/19/2025 9:51 AM EST us Zackery Villegas MD POINT OF CARE TEST ORDERAB LES Final Result Performing Organization Address [facility] Co de Phone Number [facility] [address] [place] [address] * GLUCOSE METER POC (07/19/2025 1:03 AM EST) Glucose Meter POC 83 70 - 100 mg/dL 07/19/2025 1:05 AM EST [facility] Sample Type Capillary 07/19/2025 1:05 AM EST [facility] Patient Status Non-Critical Patient 07/19/2025 1:05 AM EST [facility] Blood BLOOD SPECIMEN / Unknown 07/19/2025 1:03 AM EST 07/19/2025 1:05 AM EST us Zackery Villegas MD POINT OF CARE TEST ORDERAB LES Final Result Performing Organization Address [facility] de Phone Number [facility] [address] [place] [address] * (ABNORMAL) BASIC METABOLIC PANEL (07/18/2025 6:51 PM EST) Sodium 136 136 - 145 mmol/L 07/18/2025 7:26 PM EST [facility] Potassium 4.6 3.5 - 5.0 mmol/L 07/18/2025 7:26 PM EST [facility] Chloride 103 98 - 107 mmol/L 07/18/2025 7:26 PM EST [facility] Total CO2 29 22 - 29 mmol/L 07/18/2025 7:26 PM EST [facility] Anion Gap 4(L) 7 - 16 mmol/L 07/18/2025 7:26 PM EST [facility] Calcium 8.6 8.6 - 10.4 mg/dL 07/18/2025 7:26 PM EST [facility] Glucose Lvl 84 70 - 99 mg/dL 07/18/2025 7:26 PM EST [facility] BUN 17 6 - 20 mg/dL 07/18/2025 7:26 PM EST [facility] Creatinine 0.78 0.51 - 1.30 mg/dL 07/18/2025 7:26 PM EST [facility] eGFR (CKD-EPIcr 2020) 97 >=60 mL/min/1.7 3 m2 07/18/2025 7:26 PM EST [facility] Comment:Estimated GFR was ca lculated using the CKD-EPIcr (2020) equation refit without race. The equation is recommended by the National Kid[employer] - [place] [employer] Neph[employer] Task Force. Blood VENOUS BLOOD / Unknown Venipuncture / Unknown 07/18/2025 6:51 PM EST 07/18/2025 7:05 PM EST us Jayden Ragsdale MD CHEMISTRY ORDERABLES Final Res ult [facility] [address] [id number] * ECG AND WAVEFORMS - TELEMETRY (07/18/2025 7:03 AM EST) ECG INTERPRET NSR [facility] 07/18/2025 7:03 AM EST Narrative [facility] - 07/18/2025 8:11 AM EST ECB - ROUTINE AL 0.15 QRS 0.10 RR 0.87 QT 0.41 QTc 0.44 See Clinical Report link for waveform capture us Unknown Provider POINT OF CARE CARDIOLOGY Final Result [facility] [address] [place] [address] * GLUCOSE METER POC (07/18/2025 6:37 AM EST) Glucose Meter POC 89 70 - 100 mg/dL 07/18/2025 6:39 AM EST [facility] Sample Type Capillary 07/18/2025 6:39 AM EST [facility] Patient Status Non-Critical Patient 07/18/2025 6:39 AM EST [facility] Blood BLOOD SPECIMEN / Unknown 07/18/2025 6:37 AM EST 07/18/2025 6:39 AM EST us Zackery Villegas MD POINT OF CARE TEST ORDERAB LES Final Result Performing Organization Address City/[facility]/ZIP Co de Phone Number [facility] [address] [place] [address] * GLUCOSE METER POC (07/18/2025 1:04 AM EST) Glucose Meter POC 71 70 - 100 mg/dL 07/18/2025 1:06 AM EST [facility] Sample Type Capillary 07/18/2025 1:06 AM EST [facility] Patient Status Non-Critical Patient 07/18/2025 1:06 AM EST [facility] Blood BLOOD SPECIMEN / Unknown 07/18/2025 1:04 AM EST 07/18/2025 1:06 AM EST us Zackery Villegas MD POINT OF CARE TEST ORDERAB LES Final Result Performing Organization Address [facility] Co de Phone Number [facility] [address] [place] [address] * ECG AND WAVEFORMS - TELEMETRY (07/17/2025 7:31 PM EST) ECG INTERPRET NSR [facility] 07/17/2025 7:31 PM EST Narrative [facility] - 07/17/2025 9:04 PM EST ROUTINE (CB) AL 0.15 QRS 0.06 RR 0.78 QT 0.35 QTc 0.39 See Clinical Report link for waveform capture us Unknown Provider POINT OF CARE CARDIOLOGY Final Result Performing Organization Address City/[facility]/ZIP Co de Phone Number [facility] [address] [place], [place] [address] * (ABNORMAL) GLUCOSE METER POC (07/17/2025 6:05 PM EST) Glucose Meter POC 145(H) 70 - 100 mg/dL 07/17/2025 6:06 PM EST [facility] Sample Type Capillary 07/17/2025 6:06 PM EST [facility] Patient Status Non-Critical Patient 07/17/2025 6:06 PM EST [facility] Blood BLOOD SPECIMEN / Unknown 07/17/2025 6:05 PM EST 07/17/2025 6:06 PM EST us Zackery Villegas MD POINT OF CARE TEST ORDERAB LES Final Result [facility] [address] [facility] [place] [address] * XR CHEST AP PORTABLE (07/17/2025 12:20 [...] METER POC (07/17/2025 11:40 AM EST) Pathologist [facility] Glucose Meter POC 93 70 - 100 mg/dL 07/17/2025 11:41 AM EST [facility] Sample Type Capillary 07/17/2025 11:41 AM EST [facility] Patient Status Non-Critical Patient 07/17/2025 11:41 AM EST [facility] Blood BLOOD SPECIMEN / Unknown 07/17/2025 11:40 AM EST 07/17/2025 11:41 AM EST Zackery Villegas MD POINT OF CARE TEST ORDERAB LES Final Result Performing Organization Address [facility] Co de Phone Number [facility] [address] [place] [address] * PHOSPHORUS LEVEL (07/17/2025 8:33 AM EST) [facility] Phosphorus 3.9 2.5 - 4.5 mg/dL 07/17/2025 8:58 AM EST [facility] Blood VENOUS BLOOD / Unknown Venipuncture / Unknown 07/17/2025 8:33 AM EST 07/17/2025 8:39 AM EST Abelino Calderon MD CHEMISTRY ORDERABLES Final Re sult Performing Organization Address [facility] Co de Phone Number [facility] [address] [place] [address] * ECG AND WAVEFORMS - TELEMETRY (07/17/2025 7:02 AM EST) Pathologist [facility] ECG INTERPRET NSR [facility] 07/17/2025 7:02 AM EST Narrative [facility] - 07/17/2025 8:45 AM EST VR, ROUTINE AL 0.15 QRS 0.10 RR 0.78 QT 0.39 QTc 0.44 See Clinical Report link for waveform capture us Unknown Provider POINT OF CARE CARDIOLOGY Final Result [facility] [address] [place] [address] * (ABNORMAL) GLUCOSE METER POC (07/17/2025 6:59 AM EST) [facility] Glucose Meter POC 133(H) 70 - 100 mg/dL 07/17/2025 7:01 AM EST [facility] Sample Type Capillary 07/17/2025 7:01 AM EST [facility] Patient Status Non-Critical Patient 07/17/2025 7:01 AM EST [facility] Blood BLOOD SPECIMEN / Unknown 07/17/2025 6:59 AM EST 07/17/2025 7:01 AM EST us Zackery Villegas MD POINT OF CARE TEST ORDERAB LES Final Result [facility] [address] [id number] * (ABNORMAL) PREALBUMIN (07/17/2025 5:56 AM EST) [facility] Prealbumin 16.9(L) 20.0 - 40.0 mg/dL 07/17/2025 8:04 AM EST [facility] Blood VENOUS BLOOD / Unknown Venipuncture / Unknown 07/17/2025 5:56 AM EST 07/17/2025 6:01 AM EST us Stephanie Adamson DATA ARCHITECT MANAGER CHEMISTRY ORDERABLES Fi nal Result PREFERRED [facility] [employer] [address] [place] [address] * TRIGLYCERIDES (07/17/2025 5:56 AM EST) Triglyceride 44 <150 mg/dL 07/17/2025 8:07 AM EST [employer] Comment: < 150 Normal 150 - 199 Borderline High 200 - 499 High >= 500 Very High Blood VENOUS BLOOD / Unknown Venipuncture / Unknown 07/17/2025 5:56 AM EST 07/17/2025 6:01 AM EST Stephanie Adamson DATA ARCHITECT MANAGER CHEMISTRY ORDERABLES Fi nal Result Performing Organization Address City/[facility]/ZIP Co de Phone Number [employer] [facility] [address] , [place] [address] * PARTIAL THROMBOPLASTIN TIME (07/17/2025 5:56 AM EST) Pathologist [facility] PTT 30.3 25.7 - 36.8 second(s) 07/17/2025 6:15 AM EST [facility] Comment: Therapeutic range for unfractionated [...] EST 07/17/2025 6:02 AM EST Stephanie Adamson DATA ARCHITECT MANAGER HEMATOLOGY ORDERABLES F inal Result [facility] [address] [place] [address] * PT / INR (07/17/2025 5:56 AM EST) Pathologist [facility] PT 11.6 10.5 - 13.6 second(s) 07/17/2025 6:15 AM EST [facility] INR 1.01 0.91 - 1.18 (ratio) 07/17/2025 6:15 AM EST [facility] Comment: Level of Therapy Indications Target INR Range Standard Dose Treatment and prophylaxis of venous 2.0 - 3.0 thrombosis, pulmonary embolism High Dose High risk patients with mechanical 2.5 - 3.5 heart valves Blood VENOUS BLOOD / Unknown Venipuncture / Unknown 07/17/2025 5:56 AM EST 07/17/2025 6:02 AM EST Stephanie Adamson DATA ARCHITECT MANAGER HEMATOLOGY ORDERABLES F inal Result Performing Organization Address [facility] de Phone Number [facility] [address] [place] [address] * MAGNESIUM LEVEL (07/17/2025 5:56 AM EST) Magnesium 2.1 1.6 - 2.4 mg/dL 07/17/2025 6:23 AM EST [facility] Blood VENOUS BLOOD / Unknown Venipuncture / Unknown 07/17/2025 5:56 AM EST 07/17/2025 6:01 AM EST Stephanie Adamson DATA ARCHITECT MANAGER CHEMISTRY ORDERABLES Fi nal Result Performing Organization Address [facility] de Phone Number [facility] [address] [place] [address] * (ABNORMAL) PHOSPHORUS LEVEL (07/17/2025 5:56 AM EST) Phosphorus 4.8(H) 2.5 - 4.5 mg/dL 07/17/2025 6:23 AM EST [facility] Blood VENOUS BLOOD / Unknown Venipuncture / Unknown 07/17/2025 5:56 AM EST 07/17/2025 6:01 AM EST Stephanie Adamson DATA ARCHITECT MANAGER CHEMISTRY ORDERABLES Fi nal Result Performing Organization Address City/[facility] de Phone Number [facility] [address] [place] [address] * (ABNORMAL) HEPATIC FUNCTION PANEL (07/17/2025 5:56 AM EST) Pathologist [facility] Total Protein 6.3(L) 6.4 - 8.3 gm/dL 07/17/2025 6:23 AM EST [facility] Albumin 3.4(L) 3.5 - 5.2 gm/dL 07/17/2025 6:23 AM EST [facility] Bili Direct <0.2 0.0 - 0.3 mg/dL 07/17/2025 6:23 AM EST [facility] Bili Total <0.2(L) 0.2 - 1.3 mg/dL 07/17/2025 6:23 AM EST [facility] AST 17 <=40 U/L 07/17/2025 6:23 AM EST [facility] ALT 12 <=41 U/L 07/17/2025 6:23 AM EST [facility] Alk Phos 90 36 - 123 U/L 07/17/2025 6:23 AM EST [facility] Blood VENOUS BLOOD / Unknown Venipuncture / Unknown 07/17/2025 5:56 AM EST 07/17/2025 6:01 AM EST us Stephanie Adamson DATA ARCHITECT MANAGER CHEMISTRY ORDERABLES Fi nal Result [facility] [address] [place] [address] * (ABNORMAL) CBC (07/17/2025 5:56 AM EST) Pathologist [facility] WBC 5.1 3.7 - 10.3 x10(3)/mcL 07/17/2025 6:06 AM EST [facility] RBC 3.73(L) 3.90 - 5.20 x10(6)/mcL 07/17/2025 6:06 AM EST [facility] Hgb 11.0(L) 11.2 - 15.7 g/dL 07/17/2025 6:06 AM EST [facility] Hct 33.3(L) 34.0 - 45.0 % 07/17/2025 6:06 AM [facility] MCV 89.3 80.0 - 100.0 fL 07/17/2025 6:06 AM EST [facility] MCH 29.5 26.0 - 34.0 pg 07/17/2025 6:06 AM EST [facility] MCHC 33.0 30.7 - 35.5 g/dL 07/17/2025 6:06 AM EST [facility] RDW 14.0 <=14.9 % 07/17/2025 6:06 AM EST [facility] Platelet 196 155 - 369 x10(3)/mcL 07/17/2025 6:06 AM [facility] MPV 10.1 8.8 - 12.5 fL 07/17/2025 6:06 AM [facility] Blood VENOUS BLOOD / Unknown Venipuncture / Unknown 07/17/2025 5:56 AM EST 07/17/2025 6:01 AM EST us Stephanie Adamson DATA ARCHITECT MANAGER HEMATOLOGY ORDERABLES F inal Result [facility] [address] [place] [address] * (ABNORMAL) BASIC METABOLIC PANEL (07/17/2025 5:56 AM EST) Sodium 140 136 - 145 mmol/L 07/17/2025 6:23 AM [facility] Potassium 4.6 3.5 - 5.0 mmol/L 07/17/2025 6:23 AM [facility] Chloride 103 98 - 107 mmol/L 07/17/2025 6:23 AM [facility] Total CO2 32(H) 22 - 29 mmol/L 07/17/2025 6:23 AM [facility] Anion Gap 5(L) 7 - 16 mmol/L 07/17/2025 6:23 AM [facility] Calcium 8.9 8.6 - 10.4 mg/dL 07/17/2025 6:23 AM [facility] Glucose Lvl 95 70 - 99 mg/dL 07/17/2025 6:23 AM [facility] BUN 21(H) 6 - 20 mg/dL 07/17/2025 6:23 AM [facility] Creatinine 0.78 0.51 - 1.30 mg/dL 07/17/2025 6:23 AM [facility] eGFR (CKD-EPIcr 2020) 97 >=60 mL/min/1.7 3 m2 07/17/2025 6:23 AM [facility] Comment:Estimated GFR was ca lculated using the CKD-EPIcr (2020) equation refit without race. The equation is recommended by the National Kid[employer] - [place] [employer] Nephrology Task Force. Blood VENOUS BLOOD / Unknown Venipuncture / Unknown 07/17/2025 5:56 AM EST 07/17/2025 6:01 AM EST us Stephanie Adamson APRN CHEMISTRY ORDERABLES Fi nal Result Performing Organization Address City/[facility]/ZIP Co de Phone Number [facility] [address] [place] [address] * IONIZED CALCIUM - INPATIENT (07/17/2025 5:56 AM EST) Calcium Ionized 1.18 1.12 - 1.32 mmol/L 07/17/2025 6:07 AM EST [facility] Blood VENOUS BLOOD / Unknown Venipuncture / Unknown 07/17/2025 5:56 AM EST 07/17/2025 6:01 AM EST us Zackery Villegas MD CHEMISTRY ORDERABLES Final Result [facility] [address] [place] [address] * GLUCOSE METER POC (07/17/2025 12:07 AM EST) Glucose Meter POC 99 70 - 100 mg/dL 07/17/2025 12:09 AM EST [facility] Sample Type Capillary 07/17/2025 12:09 AM EST [facility] Patient Status Non-Critical Patient 07/17/2025 12:09 AM EST [facility] Blood BLOOD SPECIMEN / Unknown 07/17/2025 12:07 AM EST 07/17/2025 12:09 AM EST us Zackery Villegas MD POINT OF CARE TEST ORDERAB LES Final Result [facility] [address] [place] [address] * ECG AND WAVEFORMS - TELEMETRY (07/16/2025 7:34 PM EST) ECG INTERPRET NSR [facility] 07/16/2025 7:34 PM EST Narrative [facility] - 07/16/2025 7:39 PM EST ROUTINE/ RG AL 0.16 QRS 0.10 RR 0.66 QT 0.35 QTc 0.43 See Clinical Report link for waveform capture us Unknown Provider POINT OF CARE CARDIOLOGY Final Result [facility] [address] [place] [address] * GLUCOSE METER POC (07/16/2025 6:24 PM EST) Glucose Meter POC 89 70 - 100 mg/dL 07/16/2025 6:25 PM EST [facility] Sample Type Capillary 07/16/2025 6:25 PM EST [facility] Patient Status Non-Critical Patient 07/16/2025 6:25 PM EST [facility] Blood BLOOD SPECIMEN / Unknown 07/16/2025 6:24 PM EST 07/16/2025 6:25 PM EST us Zackery Villegas MD POINT OF CARE TEST ORDERAB LES Final Result [facility] [address] [place] [address] * GLUCOSE METER POC (07/16/2025 12:16 PM EST) Glucose Meter POC 76 70 - 100 mg/dL 07/16/2025 12:18 PM EST [facility] Sample Type Capillary 07/16/2025 12:18 PM EST [facility] Patient Status Non-Critical Patient 07/16/2025 12:18 PM EST [facility] Blood BLOOD SPECIMEN / Unknown 07/16/2025 12:16 PM EST 07/16/2025 12:18 PM EST Zackery Villegas MD POINT OF CARE TEST ORDERAB LES Final Result [facility] [address] [id number] * ECG AND WAVEFORMS - TELEMETRY (07/16/2025 8:00 AM EST) ECG INTERPRET NSR [facility] 07/16/2025 8:00 AM EST Narrative [facility] - 07/16/2025 9:21 AM EST DT/ROUTINE AL 0.15 QRS 0.09 RR 0.80 QT 0.38 QTc 0.43 See Clinical Report link for waveform capture us Unknown Provider POINT OF CARE CARDIOLOGY Final Result [facility] [address] [place] [address] * GLUCOSE METER POC (07/16/2025 6:21 AM EST) Glucose Meter POC 90 70 - 100 mg/dL 07/16/2025 6:22 AM EST [facility] Sample Type Capillary 07/16/2025 6:22 AM EST [facility] Patient Status Non-Critical Patient 07/16/2025 6:22 AM EST [facility] Blood BLOOD SPECIMEN / Unknown 07/16/2025 6:21 AM EST 07/16/2025 6:22 AM EST Zackery Villegas MD POINT OF CARE TEST ORDERAB LES Final Result Performing Organization Address [facility] de Phone Number [facility] [address] [place] [address] * MAGNESIUM LEVEL (07/16/2025 5:25 AM EST) Pathologist [facility] Magnesium 1.9 1.6 - 2.4 mg/dL 07/16/2025 8:25 AM EST [facility] Blood VENOUS BLOOD / Unknown Venipuncture / Unknown 07/16/2025 5:25 AM EST 07/16/2025 5:55 AM EST us Zackery Villegas MD CHEMISTRY ORDERABLES Final Result Performing Organization Address [facility] de Phone Number [facility] [address] [place] [address] * PHOSPHORUS LEVEL (07/16/2025 5:25 AM EST) Pathologist [facility] Phosphorus 4.0 2.5 - 4.5 mg/dL 07/16/2025 8:25 AM EST [facility] Blood VENOUS BLOOD / Unknown Venipuncture / Unknown 07/16/2025 5:25 AM EST 07/16/2025 5:55 AM EST us Zackery Villegas MD CHEMISTRY ORDERABLES Final Result Performing Organization Address [facility] de Phone Number [facility] [address] [place] [address] * (ABNORMAL) BASIC METABOLIC PANEL (07/16/2025 5:25 AM EST) Pathologist [facility] Sodium 141 136 - 145 mmol/L 07/16/2025 6:16 AM EST [facility] Potassium 4.6 3.5 - 5.0 mmol/L 07/16/2025 6:16 AM EST [facility] Chloride 106 98 - 107 mmol/L 07/16/2025 6:16 AM EST [facility] Total CO2 32(H) 22 - 29 mmol/L 07/16/2025 6:16 AM EST [facility] Anion Gap 3(L) 7 - 16 mmol/L 07/16/2025 6:16 AM EST [facility] Calcium 8.5(L) 8.6 - 10.4 mg/dL 07/16/2025 6:16 AM EST [facility] Glucose Lvl 102(H) 70 - 99 mg/dL 07/16/2025 6:16 AM EST [facility] BUN 19 6 - 20 mg/dL 07/16/2025 6:16 AM EST [facility] Creatinine 0.81 0.51 - 1.30 mg/dL 07/16/2025 6:16 AM EST [facility] eGFR (CKD-EPIcr 2020) 92 >=60 mL/min/1.7 3 m2 07/16/2025 6:16 AM EST [facility] Comment:Estimated GFR was ca lculated using the CKD-EPIcr (2020) equation refit without race. The equation is recommended by the [employer] - [place] [employer]ph[employer] Task Force. Blood VENOUS BLOOD / Unknown Venipuncture / Unknown 07/16/2025 5:25 AM EST 07/16/2025 5:55 AM EST us Abelino Calderon MD CHEMISTRY ORDERABLES Final Re sult [facility] [address] [place] [address] * GLUCOSE METER POC (07/16/2025 12:02 AM EST) Glucose Meter POC 94 70 - 100 mg/dL 07/16/2025 12:04 AM EST [facility] Sample Type Capillary 07/16/2025 12:04 AM EST [facility] Patient Status Non-Critical Patient 07/16/2025 12:04 AM EST [facility] Blood BLOOD SPECIMEN / Unknown 07/16/2025 12:02 AM EST 07/16/2025 12:04 AM EST us Zackery Villegas MD POINT OF CARE TEST ORDERAB LES Final Result [facility] [address] [place] [address] * ECG AND WAVEFORMS - TELEMETRY (07/15/2025 7:22 PM EST) ECG INTERPRET NSR [facility] 07/15/2025 7:22 PM EST Narrative [facility] - 07/15/2025 7:35 PM EST ROUTINE/ RG AL 0.18 QRS 0.08 RR 0.81 QT 0.35 QTc 0.39 See Clinical Report link for waveform capture us Unknown Provider POINT OF CARE CARDIOLOGY Final Result Performing Organization Address City/[facility]/ZIP Co de Phone Number [facility] [address] [place] [address] * GLUCOSE METER POC (07/15/2025 6:48 PM EST) Glucose Meter POC 73 70 - 100 mg/dL 07/15/2025 6:49 PM EST [facility] Sample Type Capillary 07/15/2025 6:49 PM EST [facility] Patient Status Non-Critical Patient 07/15/2025 6:49 PM EST [facility] Blood BLOOD SPECIMEN / Unknown 07/15/2025 6:48 PM EST 07/15/2025 6:49 PM EST us Zackery Villegas MD POINT OF CARE TEST ORDERAB LES Final Result [facility] [address] [place] [address] * (ABNORMAL) GLUCOSE METER POC (07/15/2025 12:25 PM EST) Glucose Meter POC 102(H) 70 - 100 mg/dL 07/15/2025 12:26 PM EST [facility] Sample Type Capillary 07/15/2025 12:26 PM EST [facility] Patient Status Non-Critical Patient 07/15/2025 12:26 PM EST [facility] Blood BLOOD SPECIMEN / Unknown 07/15/2025 12:25 PM EST 07/15/2025 12:26 PM EST us Zackery Villegas MD POINT OF CARE TEST ORDERAB LES Final Result Performing Organization Address [facility] Co de Phone Number [facility] [address] [place] [address] * ECG AND WAVEFORMS - TELEMETRY (07/15/2025 7:38 AM EST) Pathologist [facility] ECG INTERPRET NSR [facility] 07/15/2025 7:38 AM EST Narrative [facility] - 07/15/2025 7:47 AM EST DT/ROUTINE AL 0.19 QRS 0.07 RR 0.76 QT 0.37 QTc 0.43 See Clinical Report link for waveform capture us Unknown Provider POINT OF CARE CARDIOLOGY Final Result Performing Organization Address [facility] Co de Phone Number [facility] [address] [place] [address] * PHOSPHORUS LEVEL (07/15/2025 6:39 AM EST) [facility] Phosphorus 4.5 2.5 - 4.5 mg/dL 07/15/2025 7:34 AM EST [facility] Blood VENOUS BLOOD / Unknown Venipuncture / Unknown 07/15/2025 6:39 AM EST 07/15/2025 7:05 AM EST us Abelino Calderon MD CHEMISTRY ORDERABLES Final Re sult Performing Organization Address City/[facility] Co de Phone Number [facility] [address] [place] [address] * (ABNORMAL) BASIC METABOLIC PANEL (07/15/2025 6:39 AM EST) [facility] Sodium 141 136 - 145 mmol/L 07/15/2025 7:34 AM EST [facility] Potassium 4.6 3.5 - 5.0 mmol/L 07/15/2025 7:34 AM EST [facility] Chloride 106 98 - 107 mmol/L 07/15/2025 7:34 AM EST [facility] Total CO2 32(H) 22 - 29 mmol/L 07/15/2025 7:34 AM [facility] Anion Gap 3(L) 7 - 16 mmol/L 07/15/2025 7:34 AM EST [facility] Calcium 8.8 8.6 - 10.4 mg/dL 07/15/2025 7:34 AM [facility] Glucose Lvl 98 70 - 99 mg/dL 07/15/2025 7:34 AM [facility] BUN 16 6 - 20 mg/dL 07/15/2025 7:34 AM [facility] Creatinine 0.66 0.51 - 1.30 mg/dL 07/15/2025 7:34 AM [facility] eGFR (CKD-EPIcr 2020) 112 >=60 mL/min/1.7 3 m2 07/15/2025 7:34 AM [facility] Comment:Estimated GFR was ca lculated using the CKD-EPIcr (2020) equation refit without race. The equation is recommended by the [employer] - [place] [employer] Neph[employer] Task Force. Blood VENOUS BLOOD / Unknown Venipuncture / Unknown 07/15/2025 6:39 AM EST 07/15/2025 7:05 AM EST us Abelino Calderon MD CHEMISTRY ORDERABLES Final Re sult [facility] [address] [place] [id number] * (ABNORMAL) GLUCOSE METER POC (07/15/2025 1:05 AM EST) Glucose Meter POC 101(H) 70 - 100 mg/dL 07/15/2025 1:07 AM EST [facility] Sample Type Capillary 07/15/2025 1:07 AM [facility] Patient Status Non-Critical Patient 07/15/2025 1:07 AM [facility] Blood BLOOD SPECIMEN / Unknown 07/15/2025 1:05 AM EST 07/15/2025 1:07 AM EST us Zackery Villegas MD POINT OF CARE TEST ORDERAB LES Final Result [facility] [address] [place] [address] * ECG AND WAVEFORMS - TELEMETRY (07/14/2025 7:21 PM EST) ECG INTERPRET NSR [facility] 07/14/2025 7:21 PM EST Narrative [facility] - 07/14/2025 7:28 PM EST ROUTINE/AJ AL 0.13 QRS 0.09 RR 0.73 QT 0.37 QTc 0.43 See Clinical Report link for waveform capture us Unknown Provider POINT OF CARE CARDIOLOGY Final Result Performing Organization Address City/[facility]/ZIP Co de Phone Number [facility] [address] [place] [address] * GLUCOSE METER POC (07/14/2025 6:56 PM EST) Glucose Meter POC 79 70 - 100 mg/dL 07/14/2025 6:58 PM EST [facility] Sample Type Capillary 07/14/2025 6:58 PM EST [facility] Patient Status Non-Critical Patient 07/14/2025 6:58 PM EST [facility] Blood BLOOD SPECIMEN / Unknown 07/14/2025 6:56 PM EST 07/14/2025 6:58 PM EST us Zackery Villegas MD POINT OF CARE TEST ORDERAB LES Final Result [facility] [address] [place] [address] * GLUCOSE METER POC (07/14/2025 3:16 PM EST) Glucose Meter POC 74 70 - 100 mg/dL 07/14/2025 3:18 PM EST [facility] Sample Type Capillary 07/14/2025 3:18 PM EST [facility] Patient Status Non-Critical Patient 07/14/2025 3:18 PM EST [facility] Blood BLOOD SPECIMEN / Unknown 07/14/2025 3:16 PM EST 07/14/2025 3:18 PM EST Zackery Villegas MD POINT OF CARE TEST ORDERAB LES Final Result [facility] [address] [place] [address] * [facility] UPPER EXTREMITY VENOUS RIGHT (07/14/2025 12:24 [...] MD IMG VASCULAR ORDERABLES Final Result * [facility] LOWER EXTREMITY VENOUS BILATERAL (07/14/2025 12:24 [...] (07/14/2025 8:08 AM EST) ECG INTERPRET NSR [facility] 07/14/2025 8:08 AM EST Narrative [facility] - 07/14/2025 8:17 AM EST DT/ROUTINE AL 0.15 QRS 0.10 RR 0.94 QT 0.42 QTc 0.43 See Clinical Report link for waveform capture us Unknown Provider POINT OF CARE CARDIOLOGY Final Result [facility] [address] [place] [address] * GLUCOSE METER POC (07/14/2025 6:13 AM EST) Glucose Meter POC 98 70 - 100 mg/dL 07/14/2025 6:15 AM EST [facility] Sample Type Capillary 07/14/2025 6:15 AM EST [facility] Patient Status Non-Critical Patient 07/14/2025 6:15 AM EST [facility] Blood BLOOD SPECIMEN / Unknown 07/14/2025 6:13 AM EST 07/14/2025 6:15 AM EST us Zackery Villegas MD POINT OF CARE TEST ORDERAB LES Final Result [facility] [address] [place] [address] * (ABNORMAL) GLUCOSE METER POC (07/14/2025 12:12 AM EST) Glucose Meter POC 113(H) 70 - 100 mg/dL 07/14/2025 12:14 AM EST [facility] Sample Type Capillary 07/14/2025 12:14 AM EST [facility] Patient Status Non-Critical Patient 07/14/2025 12:14 AM EST [facility] Blood BLOOD SPECIMEN / Unknown 07/14/2025 12:12 AM EST 07/14/2025 12:14 AM EST us Zackery Villegas MD POINT OF CARE TEST ORDERAB LES Final Result [facility] [address] [place] [address] * ECG AND WAVEFORMS - TELEMETRY (07/13/2025 9:28 PM EST) ECG INTERPRET NSR [facility] 07/13/2025 9:28 PM EST Narrative [facility] - 07/13/2025 9:38 PM EST ROUTINE (CB) AL 0.16 QRS 0.07 RR 0.80 QT 0.37 QTc 0.41 See Clinical Report link for waveform capture us Unknown Provider POINT OF CARE CARDIOLOGY Final Result Performing Organization Address City/[facility]/ZIP Co de Phone Number [facility] [address] [place] [address] * GLUCOSE METER POC (07/13/2025 6:03 PM EST) Glucose Meter POC 80 70 - 100 mg/dL 07/13/2025 6:04 PM EST [facility] Sample Type Capillary 07/13/2025 6:04 PM EST [facility] Patient Status Non-Critical Patient 07/13/2025 6:04 PM EST [facility] Blood BLOOD SPECIMEN / Unknown 07/13/2025 6:03 PM EST 07/13/2025 6:04 PM EST us Zackery Villegas MD POINT OF CARE TEST ORDERAB LES Final Result Performing Organization Address City/[facility]/ZIP Co de Phone Number [facility] [address] [place] [address] * GLUCOSE METER POC (07/13/2025 12:00 PM EST) Glucose Meter POC 86 70 - 100 mg/dL 07/13/2025 12:01 PM EST [facility] Sample Type Capillary 07/13/2025 12:01 PM EST [facility] Patient Status Non-Critical Patient 07/13/2025 12:01 PM EST [facility] Blood BLOOD SPECIMEN / Unknown 07/13/2025 12:00 PM EST 07/13/2025 12:01 PM EST us Zackery Villegas MD POINT OF CARE TEST ORDERAB LES Final Result [facility] [address] [place] [address] * ECG AND WAVEFORMS - TELEMETRY (07/13/2025 7:52 AM EST) ECG INTERPRET NSR [facility] 07/13/2025 7:52 AM EST Narrative [facility] - 07/13/2025 7:53 AM EST ROUTINE/PB AL 0.12 QRS 0.08 RR 0.95 QT 0.35 QTc 0.36 See Clinical Report link for waveform capture us Unknown Provider POINT OF CARE CARDIOLOGY Final Result [facility] [address] [place] [address] * (ABNORMAL) GLUCOSE METER POC (07/13/2025 6:37 AM EST) Glucose Meter POC 106(H) 70 - 100 mg/dL 07/13/2025 6:39 AM EST [facility] Sample Type Capillary 07/13/2025 6:39 AM EST [facility] Patient Status Non-Critical Patient 07/13/2025 6:39 AM EST [facility] Blood BLOOD SPECIMEN / Unknown 07/13/2025 6:37 AM EST 07/13/2025 6:39 AM EST Zackery Villegas MD POINT OF CARE TEST ORDERAB LES Final Result Performing Organization Address [facility] de Phone Number [facility] [address] [place] [address] * MAGNESIUM LEVEL (07/13/2025 6:03 AM EST) Magnesium 1.8 1.6 - 2.4 mg/dL 07/13/2025 6:53 AM EST [facility] Blood VENOUS BLOOD / Unknown Venipuncture / Unknown 07/13/2025 6:03 AM EST 07/13/2025 6:27 AM EST Stephanie Adamson DATA ARCHITECT MANAGER CHEMISTRY ORDERABLES Fi nal Result Performing Organization Address [facility] Phone Number [facility] [address] [place] [address] * (ABNORMAL) PHOSPHORUS LEVEL (07/13/2025 6:03 AM EST) Phosphorus 4.6(H) 2.5 - 4.5 mg/dL 07/13/2025 6:53 AM EST [facility] Blood VENOUS BLOOD / Unknown Venipuncture / Unknown 07/13/2025 6:03 AM EST 07/13/2025 6:27 AM EST Stephanie Adamson DATA ARCHITECT MANAGER CHEMISTRY ORDERABLES Fi nal Result Performing Organization Address [facility] de Phone Number [facility] [address] [place] [address] * (ABNORMAL) BASIC METABOLIC PANEL (07/13/2025 6:03 AM EST) Sodium 141 136 - 145 mmol/L 07/13/2025 6:53 AM EST [facility] Potassium 4.2 3.5 - 5.0 mmol/L 07/13/2025 6:53 AM EST [facility] Chloride 107 98 - 107 mmol/L 07/13/2025 6:53 AM EST [facility] Total CO2 30(H) 22 - 29 mmol/L 07/13/2025 6:53 AM EST [facility] Anion Gap 4(L) 7 - 16 mmol/L 07/13/2025 6:53 AM EST [facility] Calcium 8.9 8.6 - 10.4 mg/dL 07/13/2025 6:53 AM [facility] Glucose Lvl 82 70 - 99 mg/dL 07/13/2025 6:53 AM EST [facility] BUN 19 6 - 20 mg/dL 07/13/2025 6:53 AM [facility] Creatinine 0.75 0.51 - 1.30 mg/dL 07/13/2025 6:53 AM [facility] eGFR (CKD-EPIcr 2020) 101 >=60 mL/min/1.7 3 m2 07/13/2025 6:53 AM [facility] Comment:Estimated GFR was ca lculated using the CKD-EPIcr (2020) equation refit without race. The equation is recommended by the [employer] - [place] [employer] Neph[employer] Task Force. Blood VENOUS BLOOD / Unknown Venipuncture / Unknown 07/13/2025 6:03 AM EST 07/13/2025 6:27 AM EST Stephanie Adamson DATA ARCHITECT MANAGER CHEMISTRY ORDERABLES Fi nal Result [facility] [address] [place] [phone] * (ABNORMAL) GLUCOSE METER POC (07/12/2025 11:49 PM EST) [facility] Glucose Meter POC 112(H) 70 - 100 mg/dL 07/12/2025 11:50 PM EST [facility] Sample Type Capillary 07/12/2025 11:50 PM EST [facility] Patient Status Non-Critical Patient 07/12/2025 11:50 PM EST [facility] Blood BLOOD SPECIMEN / Unknown 07/12/2025 11:49 PM EST 07/12/2025 11:50 PM EST us Zackery Villegas MD POINT OF CARE TEST ORDERAB LES Final Result Performing Organization Address City/[facility]/ZIP Co de Phone Number [facility] [address] [place] [address] * ECG AND WAVEFORMS - TELEMETRY (07/12/2025 8:13 PM EST) ECG INTERPRET NSR [facility] 07/12/2025 8:13 PM EST Narrative [facility] - 07/12/2025 8:15 PM EST TW/ROUTINE AL 0.10 QRS 0.11 RR 0.68 QT 0.33 See Clinical Report link for waveform capture us Unknown Provider POINT OF CARE CARDIOLOGY Final Result Performing Organization Address [facility] Co de Phone Number [facility] [address] [place] [address] * GLUCOSE METER POC (07/12/2025 11:49 AM EST) Glucose Meter POC 76 70 - 100 mg/dL 07/12/2025 11:51 AM EST [facility] Sample Type Capillary 07/12/2025 11:51 AM EST [facility] Patient Status Non-Critical Patient 07/12/2025 11:51 AM EST [facility] Blood BLOOD SPECIMEN / Unknown 07/12/2025 11:49 AM EST 07/12/2025 11:51 AM EST us Zackery Villegas MD POINT OF CARE TEST ORDERAB LES Final Result Performing Organization Address City/[facility]/ZIP Co de Phone Number [facility] [address] [place] [address] * ECG AND WAVEFORMS - TELEMETRY (07/12/2025 7:35 AM EST) ECG INTERPRET Sinus Bradycardia [facility] 07/12/2025 7:35 AM EST Narrative [facility] - 07/12/2025 7:54 AM EST [place] ROUTINE AL 0.16 QRS 0.08 RR 1.06 QT 0.38 See Clinical Report link for waveform capture us Unknown Provider POINT OF CARE CARDIOLOGY Final Result [facility] [address] [place] [address] * GLUCOSE METER POC (07/12/2025 5:23 AM EST) Glucose Meter POC 78 70 - 100 mg/dL 07/12/2025 5:24 AM EST [facility] Sample Type Capillary 07/12/2025 5:24 AM EST [facility] Patient Status Non-Critical Patient 07/12/2025 5:24 AM EST [facility] Blood BLOOD SPECIMEN / Unknown 07/12/2025 5:23 AM EST 07/12/2025 5:24 AM EST us Zackery Villegas MD POINT OF CARE TEST ORDERAB LES Final Result Performing Organization Address City/[facility]/ZIP Co de Phone Number [facility] [address] [place] [address] * GLUCOSE METER POC (07/11/2025 11:55 PM EST) Glucose Meter POC 84 70 - 100 mg/dL 07/12/2025 2:08 AM EST [facility] Sample Type Capillary 07/12/2025 2:08 AM EST [facility] Patient Status Non-Critical Patient 07/12/2025 2:08 AM EST [facility] Blood BLOOD SPECIMEN / Unknown 07/11/2025 11:55 PM EST 07/12/2025 2:08 AM EST us Zackery Villegas MD POINT OF CARE TEST ORDERAB LES Final Result Performing Organization Address City/[facility] Co de Phone Number [facility] [address] [place] [address] * ECG AND WAVEFORMS - TELEMETRY (07/11/2025 9:00 PM EST) ECG INTERPRET NSR [facility] 07/11/2025 9:00 PM EST Narrative [facility] - 07/11/2025 9:03 PM EST TW/ROUTINE AL 0.10 QRS 0.10 RR 0.89 QT 0.38 See Clinical Report link for waveform capture us Unknown Provider POINT OF CARE CARDIOLOGY Final Result Performing Organization Address City/[facility]/ZIP Co de Phone Number [facility] [address] [place] [address] * GLUCOSE METER POC (07/11/2025 5:56 PM EST) Glucose Meter POC 77 70 - 100 mg/dL 07/11/2025 5:57 PM EST [facility] Sample Type Capillary 07/11/2025 5:57 PM EST [facility] Patient Status Non-Critical Patient 07/11/2025 5:57 PM EST [facility] Blood BLOOD SPECIMEN / Unknown 07/11/2025 5:56 PM EST 07/11/2025 5:57 PM EST us Zackery Villegas MD POINT OF CARE TEST ORDERAB LES Final Result Performing Organization Address City/[facility]/ZIP Co de Phone Number [facility] [address] [place] [phone] * ECG AND WAVEFORMS - TELEMETRY (07/11/2025 2:30 PM EST) ECG INTERPRET NSR [facility] 07/11/2025 2:30 PM EST Narrative [facility] - 07/11/2025 2:31 PM EST [place] ROUTINE AL 0.16 QRS 0.09 RR 0.61 QT 0.33 See Clinical Report link for waveform capture us Unknown Provider POINT OF CARE CARDIOLOGY Final Result Performing Organization Address City/[facility]/ZIP Co de Phone Number [facility] [address] [place] [address] * (ABNORMAL) GLUCOSE METER POC (07/11/2025 1:03 PM EST) Glucose Meter POC 102(H) 70 - 100 mg/dL 07/11/2025 1:04 PM EST [facility] Sample Type Capillary 07/11/2025 1:04 PM EST [facility] Patient Status Non-Critical Patient 07/11/2025 1:04 PM EST [facility] Blood BLOOD SPECIMEN / Unknown 07/11/2025 1:03 PM EST 07/11/2025 1:04 PM EST us Zackery Villegas MD POINT OF CARE TEST ORDERAB LES Final Result Performing Organization Address City/[facility]/ZIP Co de Phone Number [facility] [address] [place] [address] * GLUCOSE METER POC (07/11/2025 11:58 AM EST) Glucose Meter POC 99 70 - 100 mg/dL 07/11/2025 12:00 PM EST [facility] Sample Type Capillary 07/11/2025 12:00 PM EST [facility] Patient Status Non-Critical Patient 07/11/2025 12:00 PM EST [facility] Blood BLOOD SPECIMEN / Unknown 07/11/2025 11:58 AM EST 07/11/2025 12:00 PM EST us Zackery Villegas MD POINT OF CARE TEST ORDERAB LES Final Result Performing Organization Address City/[facility]/ZIP Co de Phone Number [facility] [address] [place] [address] * GLUCOSE METER POC (07/11/2025 7:04 AM EST) Glucose Meter POC 93 70 - 100 mg/dL 07/11/2025 7:06 AM EST [facility] Sample Type Capillary 07/11/2025 7:06 AM EST [facility] Patient Status Non-Critical Patient 07/11/2025 7:06 AM EST [facility] Blood BLOOD SPECIMEN / Unknown 07/11/2025 7:04 AM EST 07/11/2025 7:06 AM EST us Zackery Villegas MD POINT OF CARE TEST ORDERAB LES Final Result Performing Organization Address City/[facility]/ZIP Co de Phone Number [facility] [address] [place] [address] * GLUCOSE METER POC (07/10/2025 11:18 PM EST) Glucose Meter POC 96 70 - 100 mg/dL 07/10/2025 11:20 PM EST [facility] Sample Type Capillary 07/10/2025 11:20 PM EST [facility] Patient Status Non-Critical Patient 07/10/2025 11:20 PM EST [facility] Blood BLOOD SPECIMEN / Unknown 07/10/2025 11:18 PM EST 07/10/2025 11:20 PM EST us Zackery Villegas MD POINT OF CARE TEST ORDERAB LES Final Result Performing Organization Address [facility] Co de Phone Number [facility] [address] [place] [address] * GLUCOSE METER POC (07/10/2025 5:38 PM EST) Glucose Meter POC 91 70 - 100 mg/dL 07/10/2025 5:40 PM EST [facility] Sample Type Capillary 07/10/2025 5:40 PM EST [facility] Patient Status Non-Critical Patient 07/10/2025 5:40 PM EST [facility] Blood BLOOD SPECIMEN / Unknown 07/10/2025 5:38 PM EST 07/10/2025 5:40 PM EST us Zackery Villegas MD POINT OF CARE TEST ORDERAB LES Final Result Performing Organization Address [facility] Co de Phone Number [facility] [address] [place] [address] * GLUCOSE METER POC (07/10/2025 12:27 PM EST) Glucose Meter POC 83 70 - 100 mg/dL 07/10/2025 12:29 PM EST [facility] Sample Type Capillary 07/10/2025 12:29 PM EST [facility] Patient Status Non-Critical Patient 07/10/2025 12:29 PM EST [facility] Blood BLOOD SPECIMEN / Unknown 07/10/2025 12:27 PM EST 07/10/2025 12:29 PM EST Zackery Villegas MD POINT OF CARE TEST ORDERAB LES Final Result [facility] [address] [place] [address] * [facility] LOWER EXTREMITY VENOUS LEFT (07/10/2025 8:10 [...] APRN IMG VASCULAR ORDERABLES Final Result * [facility] UPPER EXTREMITY VENOUS RIGHT (07/10/2025 8:10 [...] 40.0 mg/dL 07/10/2025 2:20 PM EST [employer] Blood VENOUS BLOOD / Unknown Venipuncture / Unknown 07/10/2025 6:10 AM EST 07/10/2025 6:14 AM EST Stephanie Adamson DATA ARCHITECT MANAGER CHEMISTRY ORDERABLES nal Result [employer] [address] [place] [address] , [place] [address] * TRIGLYCERIDES (07/10/2025 6:10 AM EST) Triglyceride 73 <150 mg/dL 07/10/2025 9:45 AM EST [employer] Comment: < 150 Normal 150 - 199 Borderline High 200 - 499 High >= 500 Very High Blood VENOUS BLOOD / Unknown Venipuncture / Unknown 07/10/2025 6:10 AM EST 07/10/2025 6:15 AM EST Stephanie Adamson DATA ARCHITECT MANAGER CHEMISTRY ORDERABLES Fi nal Result Performing Organization Address City/[facility]/ZIP Co de Phone Number [facility] [employer], [address], [place] [address] * PARTIAL THROMBOPLASTIN TIME (07/10/2025 6:10 AM EST) PTT 33.3 25.7 - 36.8 second(s) 07/10/2025 6:29 AM EST [facility] Comment: Therapeutic range for unfractionated [...] ORDERABLES F inal Result Performing Organization Address [facility] Co de Phone Number [facility] [address] [phone] * PT / INR (07/10/2025 6:10 AM EST) PT 12.5 10.5 - 13.6 second(s) 07/10/2025 6:29 AM EST [facility] INR 1.09 0.91 - 1.18 (ratio) 07/10/2025 6:29 AM EST [facility] Comment: Level of Therapy Indications Target INR Range Standard Dose Treatment and prophylaxis of venous 2.0 - 3.0 thrombosis, pulmonary embolism High Dose High risk patients with mechanical 2.5 - 3.5 heart valves Blood VENOUS BLOOD / Unknown Venipuncture / Unknown 07/10/2025 6:10 AM EST 07/10/2025 6:15 AM EST us Stephanie Adamson DATA ARCHITECT MANAGER HEMATOLOGY ORDERABLES F inal Result Performing Organization Address [facility] de Phone Number [facility] [address] [place] [address] * MAGNESIUM LEVEL (07/10/2025 6:10 AM EST) Magnesium 1.8 1.6 - 2.4 mg/dL 07/10/2025 6:37 AM EST [facility] Blood VENOUS BLOOD / Unknown Venipuncture / Unknown 07/10/2025 6:10 AM EST 07/10/2025 6:14 AM EST us Stephanie Adamson DATA ARCHITECT MANAGER CHEMISTRY ORDERABLES Fi nal Result Performing Organization Address [facility] de Phone Number [facility] [address] [place] [address] * PHOSPHORUS LEVEL (07/10/2025 6:10 AM EST) Phosphorus 4.1 2.5 - 4.5 mg/dL 07/10/2025 6:37 AM EST [facility] Blood VENOUS BLOOD / Unknown Venipuncture / Unknown 07/10/2025 6:10 AM EST 07/10/2025 6:14 AM EST us Stephanie Adamson DATA ARCHITECT MANAGER CHEMISTRY ORDERABLES Fi nal Result Performing Organization Address [facility] de Phone Number [facility] [address] [place] [address] * (ABNORMAL) HEPATIC FUNCTION PANEL (07/10/2025 6:10 AM EST) Total Protein 6.1(L) 6.4 - 8.3 gm/dL 07/10/2025 6:37 AM EST [facility] Albumin 3.2(L) 3.5 - 5.2 gm/dL 07/10/2025 6:37 AM EST [facility] Bili Direct <0.2 0.0 - 0.3 mg/dL 07/10/2025 6:37 AM EST [facility] Bili Total <0.2(L) 0.2 - 1.3 mg/dL 07/10/2025 6:37 AM EST [facility] AST 16 <=40 U/L 07/10/2025 6:37 AM EST [facility] ALT 9 <=41 U/L 07/10/2025 6:37 AM EST [facility] Alk Phos 132(H) 36 - 123 U/L 07/10/2025 6:37 AM EST [facility] Blood VENOUS BLOOD / Unknown Venipuncture / Unknown 07/10/2025 6:10 AM EST 07/10/2025 6:14 AM EST us Stephanie Adamson DATA ARCHITECT MANAGER CHEMISTRY ORDERABLES Fi nal Result [facility] [address] [phone] * (ABNORMAL) CBC (07/10/2025 6:10 AM EST) WBC 6.8 3.7 - 10.3 x10(3)/mcL 07/10/2025 6:18 AM EST [facility] RBC 3.38(L) 3.90 - 5.20 x10(6)/mcL 07/10/2025 6:18 AM EST [facility] Hgb 9.9(L) 11.2 - 15.7 g/dL 07/10/2025 6:18 AM EST [facility] Hct 30.9(L) 34.0 - 45.0 % 07/10/2025 6:18 AM EST [facility] MCV 91.4 80.0 - 100.0 fL 07/10/2025 6:18 AM EST [facility] MCH 29.3 26.0 - 34.0 pg 07/10/2025 6:18 AM EST [facility] MCHC 32.0 30.7 - 35.5 g/dL 07/10/2025 6:18 AM EST [facility] RDW 13.4 <=14.9 % 07/10/2025 6:18 AM EST [facility] Platelet 219 155 - 369 x10(3)/mcL 07/10/2025 6:18 AM EST [facility] MPV 9.3 8.8 - 12.5 fL 07/10/2025 6:18 AM EST [facility] Blood VENOUS BLOOD / Unknown Venipuncture / Unknown 07/10/2025 6:10 AM EST 07/10/2025 6:15 AM EST us Stephanie Proan Juan Diego DATA ARCHITECT MANAGER HEMATOLOGY ORDERABLES F inal Result [facility] [address] [place] [address] * (ABNORMAL) BASIC METABOLIC PANEL (07/10/2025 6:10 AM EST) Sodium 139 136 - 145 mmol/L 07/10/2025 6:37 AM [facility] Potassium 4.4 3.5 - 5.0 mmol/L 07/10/2025 6:37 AM [facility] Chloride 107 98 - 107 mmol/L 07/10/2025 6:37 AM [facility] Total CO2 24 22 - 29 mmol/L 07/10/2025 6:37 AM [facility] Anion Gap 8 7 - 16 mmol/L 07/10/2025 6:37 AM [facility] Calcium 8.1(L) 8.6 - 10.4 mg/dL 07/10/2025 6:37 AM [facility] Glucose Lvl 126(H) 70 - 99 mg/dL 07/10/2025 6:37 AM [facility] BUN 12 6 - 20 mg/dL 07/10/2025 6:37 AM [facility] Creatinine 0.70 0.51 - 1.30 mg/dL 07/10/2025 6:37 AM [facility] eGFR (CKD-EPIcr 2020) 110 >=60 mL/min/1.7 3 m2 07/10/2025 6:37 AM [facility] Comment:Estimated GFR was ca lculated using the CKD-EPIcr (2020) equation refit without race. The equation is recommended by the [employer] - [place] [employer] Neph[employer] Task Force. Blood VENOUS BLOOD / Unknown Venipuncture / Unknown 07/10/2025 6:10 AM EST 07/10/2025 6:14 AM EST us Stephanie Adamson DATA ARCHITECT MANAGER CHEMISTRY ORDERABLES Fi nal Result Performing Organization Address City/[facility]/ZIP Co de Phone Number [facility] [address] [place] [address] * (ABNORMAL) GLUCOSE METER POC (07/10/2025 6:00 AM EST) Glucose Meter POC 138(H) 70 - 100 mg/dL 07/10/2025 6:01 AM EST [facility] Sample Type Capillary 07/10/2025 6:01 AM EST [facility] Patient Status Non-Critical Patient 07/10/2025 6:01 AM EST [facility] Blood BLOOD SPECIMEN / Unknown 07/10/2025 6:00 AM EST 07/10/2025 6:01 AM EST us Zackery Villegas MD POINT OF CARE TEST ORDERAB LES Final Result Performing Organization Address [facility] Co de Phone Number [facility] [address] [place] [address] * (ABNORMAL) GLUCOSE METER POC (07/09/2025 11:48 PM EST) Glucose Meter POC 125(H) 70 - 100 mg/dL 07/09/2025 11:50 PM EST [facility] Sample Type Capillary 07/09/2025 11:50 PM EST [facility] Patient Status Non-Critical Patient 07/09/2025 11:50 PM EST [facility] Blood BLOOD SPECIMEN / Unknown 07/09/2025 11:48 PM EST 07/09/2025 11:50 PM EST us Zackery Villegas MD POINT OF CARE TEST ORDERAB LES Final Result [facility] [address] [place] [address] * GLUCOSE METER POC (07/09/2025 6:14 PM EST) Glucose Meter POC 91 70 - 100 mg/dL 07/09/2025 6:16 PM EST [facility] Sample Type Capillary 07/09/2025 6:16 PM EST [facility] Patient Status Non-Critical Patient 07/09/2025 6:16 PM EST [facility] Blood BLOOD SPECIMEN / Unknown 07/09/2025 6:14 PM EST 07/09/2025 6:16 PM EST us Zackery Villegas MD POINT OF CARE TEST ORDERAB LES Final Result [facility] [address] [place] [address] * XR CHEST PA AND LATERAL (07/09/2025 [...] GLUCOSE METER POC (07/09/2025 12:29 PM EST) [facility] Glucose Meter POC 94 70 - 100 mg/dL 07/09/2025 12:31 PM EST [facility] Sample Type Capillary 07/09/2025 12:31 PM EST [facility] Patient Status Non-Critical Patient 07/09/2025 12:31 PM EST [facility] Blood BLOOD SPECIMEN / Unknown 07/09/2025 12:29 PM EST 07/09/2025 12:31 PM EST Zackery Villegas MD POINT OF CARE TEST ORDERAB LES Final Result Performing Organization Address City/[facility]/ZIP Co de Phone Number [facility] [address] [place] [address] * PHOSPHORUS LEVEL (07/09/2025 6:16 AM EST) [facility] Phosphorus 4.4 2.5 - 4.5 mg/dL 07/09/2025 6:50 AM EST [facility] Blood VENOUS BLOOD / Unknown Venipuncture / Unknown 07/09/2025 6:16 AM EST 07/09/2025 6:22 AM EST Stephanie Adamson DATA ARCHITECT MANAGER CHEMISTRY ORDERABLES Fi nal Result Performing Organization Address City/[facility]/ZIP Co de Phone Number [facility] [address] [place] [address] * MAGNESIUM LEVEL (07/09/2025 6:16 AM EST) Pathologist [facility] Magnesium 1.9 1.6 - 2.4 mg/dL 07/09/2025 6:50 AM EST [facility] Blood VENOUS BLOOD / Unknown Venipuncture / Unknown 07/09/2025 6:16 AM EST 07/09/2025 6:22 AM EST us Stephanie Adamson DATA ARCHITECT MANAGER CHEMISTRY ORDERABLES Fi nal Result [facility] [address] [place] [address] * (ABNORMAL) BASIC METABOLIC PANEL (07/09/2025 6:16 AM EST) Pathologist [facility] Sodium 141 136 - 145 mmol/L 07/09/2025 6:50 AM EST [facility] Potassium 4.7 3.5 - 5.0 mmol/L 07/09/2025 6:50 AM EST [facility] Chloride 107 98 - 107 mmol/L 07/09/2025 6:50 AM EST [facility] Total CO2 27 22 - 29 mmol/L 07/09/2025 6:50 AM EST [facility] Anion Gap 7 7 - 16 mmol/L 07/09/2025 6:50 AM EST [facility] Calcium 8.4(L) 8.6 - 10.4 mg/dL 07/09/2025 6:50 AM EST [facility] Glucose Lvl 92 70 - 99 mg/dL 07/09/2025 6:50 AM EST [facility] BUN 11 6 - 20 mg/dL 07/09/2025 6:50 AM EST [facility] Creatinine 0.76 0.51 - 1.30 mg/dL 07/09/2025 6:50 AM [facility] eGFR (CKD-EPIcr 2020) 100 >=60 mL/min/1.7 3 m2 07/09/2025 6:50 AM [facility] Comment:Estimated GFR was ca lculated using the CKD-EPIcr (2020) equation refit without race. The equation is recommended by the [employer] - [place] [employer] Neph[employer] Task Force. Blood VENOUS BLOOD / Unknown Venipuncture / Unknown 07/09/2025 6:16 AM EST 07/09/2025 6:22 AM EST Stephanie Adamson DATA ARCHITECT MANAGER CHEMISTRY ORDERABLES Fi nal Result [facility] [address] [place] [address] * (ABNORMAL) GLUCOSE METER POC (07/09/2025 6:01 AM EST) Glucose Meter POC 108(H) 70 - 100 mg/dL 07/09/2025 6:02 AM EST [facility] Sample Type Capillary 07/09/2025 6:02 AM EST [facility] Patient Status Non-Critical Patient 07/09/2025 6:02 AM EST [facility] Blood BLOOD SPECIMEN / Unknown 07/09/2025 6:01 AM EST 07/09/2025 6:02 AM EST us Zackery Villegas MD POINT OF CARE TEST ORDERAB LES Final Result Performing Organization Address City/[facility]/ZIP Co de Phone Number [facility] [address] [place] [address] * GLUCOSE METER POC (07/08/2025 11:45 PM EST) Glucose Meter POC 93 70 - 100 mg/dL 07/08/2025 11:47 PM EST [facility] Sample Type Capillary 07/08/2025 11:47 PM EST [facility] Patient Status Non-Critical Patient 07/08/2025 11:47 PM EST [facility] Blood BLOOD SPECIMEN / Unknown 07/08/2025 11:45 PM EST 07/08/2025 11:47 PM EST Zackery Villegas MD POINT OF CARE TEST ORDERAB LES Final Result [facility] [address] [place] [address] * (ABNORMAL) GLUCOSE METER POC (07/08/2025 5:59 PM EST) Glucose Meter POC 114(H) 70 - 100 mg/dL 07/08/2025 6:01 PM EST [facility] Sample Type Capillary 07/08/2025 6:01 PM EST [facility] Patient Status Non-Critical Patient 07/08/2025 6:01 PM EST [facility] Blood BLOOD SPECIMEN / Unknown 07/08/2025 5:59 PM EST 07/08/2025 6:01 PM EST Zackery Villegas MD POINT OF CARE TEST ORDERAB LES Final Result Performing Organization Address City/[facility]/ZIP Co de Phone Number [facility] [address] [place] [address] * (ABNORMAL) GLUCOSE METER POC (07/08/2025 1:45 PM EST) Glucose Meter POC 103(H) 70 - 100 mg/dL 07/08/2025 1:47 PM EST [facility] Sample Type Capillary 07/08/2025 1:47 PM EST [facility] Patient Status Non-Critical Patient 07/08/2025 1:47 PM EST [facility] Blood BLOOD SPECIMEN / Unknown 07/08/2025 1:45 PM EST 07/08/2025 1:47 PM EST us Zackery Villegas MD POINT OF CARE TEST ORDERAB LES Final Result Performing Organization Address City/[facility]/ZIP Co de Phone Number [facility] [address] [place] [address] * GLUCOSE METER POC (07/08/2025 9:02 AM EST) Glucose Meter POC 89 70 - 100 mg/dL 07/08/2025 9:04 AM EST [facility] Sample Type Capillary 07/08/2025 9:04 AM EST [facility] Patient Status Non-Critical Patient 07/08/2025 9:04 AM EST [facility] Blood BLOOD SPECIMEN / Unknown 07/08/2025 9:02 AM EST 07/08/2025 9:04 AM EST us Zackery Villegas MD POINT OF CARE TEST ORDERAB LES Final Result Performing Organization Address [facility] Co de Phone Number [facility] [address] [place] [address] * (ABNORMAL) GLUCOSE METER POC (07/08/2025 6:34 AM EST) Glucose Meter POC 103(H) 70 - 100 mg/dL 07/08/2025 6:36 AM EST [facility] Sample Type Capillary 07/08/2025 6:36 AM EST [facility] Patient Status Non-Critical Patient 07/08/2025 6:36 AM EST [facility] Blood BLOOD SPECIMEN / Unknown 07/08/2025 6:34 AM EST 07/08/2025 6:36 AM EST us Zackery Villegas MD POINT OF CARE TEST ORDERAB LES Final Result Performing Organization Address [facility] de Phone Number [facility] [address] [place] [address] * MAGNESIUM LEVEL (07/08/2025 5:15 AM EST) Pathologist [facility] Magnesium 2.1 1.6 - 2.4 mg/dL 07/08/2025 5:49 AM EST [facility] Blood VENOUS BLOOD / Unknown Venipuncture / Unknown 07/08/2025 5:15 AM EST 07/08/2025 5:19 AM EST us Stephanie Adamson DATA ARCHITECT MANAGER CHEMISTRY ORDERABLES Fi nal Result Performing Organization Address City/[facility]/ZIP Co de Phone Number [facility] [address] [place] [address] * PHOSPHORUS LEVEL (07/08/2025 5:15 AM EST) Phosphorus 3.6 2.5 - 4.5 mg/dL 07/08/2025 5:49 AM EST [facility] Blood VENOUS BLOOD / Unknown Venipuncture / Unknown 07/08/2025 5:15 AM EST 07/08/2025 5:19 AM EST us Stephanie Adamson DATA ARCHITECT MANAGER CHEMISTRY ORDERABLES Fi nal Result [facility] [address] [id number] * (ABNORMAL) BASIC METABOLIC PANEL (07/08/2025 5:15 AM EST) Sodium 139 136 - 145 mmol/L 07/08/2025 5:49 AM EST [facility] Potassium 4.8 3.5 - 5.0 mmol/L 07/08/2025 5:49 AM [facility] Chloride 106 98 - 107 mmol/L 07/08/2025 5:49 AM EST [facility] Total CO2 31(H) 22 - 29 mmol/L 07/08/2025 5:49 AM EST [facility] Anion Gap 2(L) 7 - 16 mmol/L 07/08/2025 5:49 AM [facility] Calcium 8.4(L) 8.6 - 10.4 mg/dL 07/08/2025 5:49 AM [facility] Glucose Lvl 97 70 - 99 mg/dL 07/08/2025 5:49 AM EST [facility] BUN 9 6 - 20 mg/dL 07/08/2025 5:49 AM EST [facility] Creatinine 0.79 0.51 - 1.30 mg/dL 07/08/2025 5:49 AM [facility] eGFR (CKD-EPIcr 2020) 95 >=60 mL/min/1.7 3 m2 07/08/2025 5:49 AM EST [facility] Comment:Estimated GFR was ca lculated using the CKD-EPIcr (2020) equation refit without race. The equation is recommended by the [employer] - [place] [employer] Neph[employer] Task Force. Blood VENOUS BLOOD / Unknown Venipuncture / Unknown 07/08/2025 5:15 AM EST 07/08/2025 5:19 AM EST Stephanie Adamson DATA ARCHITECT MANAGER CHEMISTRY ORDERABLES Fi nal Result [facility] [address] [place] [address] * GLUCOSE METER POC (07/08/2025 12:05 AM EST) Glucose Meter POC 97 70 - 100 mg/dL 07/08/2025 12:07 AM EST [facility] Sample Type Capillary 07/08/2025 12:07 AM EST [facility] Patient Status Non-Critical Patient 07/08/2025 12:07 AM EST [facility] Blood BLOOD SPECIMEN / Unknown 07/08/2025 12:05 AM EST 07/08/2025 12:07 AM EST Zackery Villegas MD POINT OF CARE TEST ORDERAB LES Final Result Performing Organization Address City/[facility]/ZIP Co de Phone Number [facility] [address] [place] [address] * GLUCOSE METER POC (07/07/2025 12:48 PM EST) Glucose Meter POC 82 70 - 100 mg/dL 07/07/2025 12:49 PM EST [facility] Sample Type Capillary 07/07/2025 12:49 PM EST [facility] Patient Status Non-Critical Patient 07/07/2025 12:49 PM EST [facility] Blood BLOOD SPECIMEN / Unknown 07/07/2025 12:48 PM EST 07/07/2025 12:49 PM EST Zackery Villegas MD POINT OF CARE TEST ORDERAB LES Final Result Performing Organization Address City/[facility]/ZIP Co de Phone Number [facility] [address] [place] [address] * IONIZED CALCIUM - INPATIENT (07/07/2025 8:19 AM EST) Calcium Ionized 1.15 1.12 - 1.32 mmol/L 07/07/2025 8:33 AM EST [facility] Blood VENOUS BLOOD / Unknown Venipuncture / Unknown 07/07/2025 8:19 AM EST 07/07/2025 8:28 AM EST Karen Campos DATA ARCHITECT MANAGER CHEMISTRY ORDERABLES Final Result Performing Organization Address [facility] Co de Phone Number [facility] [address] [place] [address] * EXTRA LAVENDER (07/07/2025 5:52 AM EST) Blood VENOUS BLOOD / Unknown Venipuncture / Unknown 07/07/2025 5:52 AM EST 07/07/2025 6:06 AM EST Zackery Villegas MD HEMATOLOGY ORDERABLES Lamar l Result Performing Organization Address [facility] de Phone Number [facility] [address] [place] [address] * MAGNESIUM LEVEL (07/07/2025 5:52 AM EST) Pathologist [facility] Magnesium 1.9 1.6 - 2.4 mg/dL 07/07/2025 6:27 AM EST [facility] Blood VENOUS BLOOD / Unknown Venipuncture / Unknown 07/07/2025 5:52 AM EST 07/07/2025 6:04 AM EST Stephanie Adamson DATA ARCHITECT MANAGER CHEMISTRY ORDERABLES Fi nal Result Performing Organization Address [facility] de Phone Number [facility] [address] [place] [address] * PHOSPHORUS LEVEL (07/07/2025 5:52 AM EST) Phosphorus 3.8 2.5 - 4.5 mg/dL 07/07/2025 6:27 AM EST [facility] Blood VENOUS BLOOD / Unknown Venipuncture / Unknown 07/07/2025 5:52 AM EST 07/07/2025 6:04 AM EST Stephanie Adamson DATA ARCHITECT MANAGER CHEMISTRY ORDERABLES Fi nal Result [facility] [address] [place] [address] * (ABNORMAL) BASIC METABOLIC PANEL (07/07/2025 5:52 AM EST) Sodium 139 136 - 145 mmol/L 07/07/2025 6:27 AM EST [facility] Potassium 4.3 3.5 - 5.0 mmol/L 07/07/2025 6:27 AM EST [facility] Chloride 106 98 - 107 mmol/L 07/07/2025 6:27 AM EST [facility] Total CO2 29 22 - 29 mmol/L 07/07/2025 6:27 AM EST [facility] Anion Gap 4(L) 7 - 16 mmol/L 07/07/2025 6:27 AM [facility] Calcium 8.1(L) 8.6 - 10.4 mg/dL 07/07/2025 6:27 AM EST [facility] Glucose Lvl 118(H) 70 - 99 mg/dL 07/07/2025 6:27 AM EST [facility] BUN 7 6 - 20 mg/dL 07/07/2025 6:27 AM [facility] Creatinine 0.81 0.51 - 1.30 mg/dL 07/07/2025 6:27 AM EST [facility] eGFR (CKD-EPIcr 2020) 92 >=60 mL/min/1.7 3 m2 07/07/2025 6:27 AM EST [facility] Comment:Estimated GFR was ca lculated using the CKD-EPIcr (2020) equation refit without race. The equation is recommended by the [employer] - [place] [employer] Neph[employer] Task Force. Blood VENOUS BLOOD / Unknown Venipuncture / Unknown 07/07/2025 5:52 AM EST 07/07/2025 6:04 AM EST us Stephanie Adamson DATA ARCHITECT MANAGER CHEMISTRY ORDERABLES Fi nal Result [facility] [address] [place] [address] * (ABNORMAL) GLUCOSE METER POC (07/07/2025 5:47 AM EST) Glucose Meter POC 135(H) 70 - 100 mg/dL 07/07/2025 5:50 AM EST [facility] Sample Type Capillary 07/07/2025 5:50 AM EST [facility] Patient Status Non-Critical Patient 07/07/2025 5:50 AM EST [facility] Blood BLOOD SPECIMEN / Unknown 07/07/2025 5:47 AM EST 07/07/2025 5:50 AM EST us Zackery Villegas MD POINT OF CARE TEST ORDERAB LES Final Result Performing Organization Address City/[facility] Co de Phone Number [facility] [address] [place] [address] * (ABNORMAL) GLUCOSE METER POC (07/07/2025 12:04 AM EST) Glucose Meter POC 171(H) 70 - 100 mg/dL 07/07/2025 12:05 AM EST [facility] Sample Type Capillary 07/07/2025 12:05 AM EST [facility] Patient Status Non-Critical Patient 07/07/2025 12:05 AM EST [facility] Blood BLOOD SPECIMEN / Unknown 07/07/2025 12:04 AM EST 07/07/2025 12:05 AM EST us Zackery Villegas MD POINT OF CARE TEST ORDERAB LES Final Result Performing Organization Address City/[facility] Co de Phone Number [facility] [address] [place] [address] * BEDSIDE PICC INSERTION (PICC TEAM RN) (07/06/2025 10:18 AM EST) Narrative [facility] - 07/06/2025 10:18 AM EST Neo [...] SURGI MAHENDRA ORDERABLES Edited Result - Final [facility] [address] [place] [address] * EC ECHOCARDIOGRAM COMPLETE W DOPPLER AND [...] PICC nurse, utilizing 3CG technology. Karen Campos DATA ARCHITECT MANAGER IMG US ORDERABLES Fin al Result * MAGNESIUM LEVEL (07/06/2025 5:05 AM EST) Magnesium 2.0 1.6 - 2.4 mg/dL 07/06/2025 5:48 AM EST [facility] Blood VENOUS BLOOD / Unknown Venipuncture / Unknown 07/06/2025 5:05 AM EST 07/06/2025 5:24 AM EST Stephanie Adamson DATA ARCHITECT MANAGER CHEMISTRY ORDERABLES Fi nal Result Performing Organization Address [facility] Co de Phone Number [facility] [address] [place] [address] * PHOSPHORUS LEVEL (07/06/2025 5:05 AM EST) Phosphorus 4.4 2.5 - 4.5 mg/dL 07/06/2025 5:48 AM EST [facility] Blood VENOUS BLOOD / Unknown Venipuncture / Unknown 07/06/2025 5:05 AM EST 07/06/2025 5:24 AM EST Stephanie Adamson DATA ARCHITECT MANAGER CHEMISTRY ORDERABLES Fi nal Result Performing Organization Address City/[facility] Co de Phone Number [facility] [address] [place] [address] * (ABNORMAL) HEPATIC FUNCTION PANEL (07/06/2025 5:05 AM EST) Total Protein 6.0(L) 6.4 - 8.3 gm/dL 07/06/2025 5:48 AM EST [facility] Albumin 3.2(L) 3.5 - 5.2 gm/dL 07/06/2025 5:48 AM EST [facility] Bili Direct <0.2 0.0 - 0.3 mg/dL 07/06/2025 5:48 AM EST [facility] Bili Total 0.2 0.2 - 1.3 mg/dL 07/06/2025 5:48 AM EST [facility] AST 18 <=40 U/L 07/06/2025 5:48 AM EST [facility] ALT 6 <=41 U/L 07/06/2025 5:48 AM EST [facility] Alk Phos 100 36 - 123 U/L 07/06/2025 5:48 AM EST [facility] Blood VENOUS BLOOD / Unknown Venipuncture / Unknown 07/06/2025 5:05 AM EST 07/06/2025 5:24 AM EST Stephanie Adamson DATA ARCHITECT MANAGER CHEMISTRY ORDERABLES Fi nal Result [facility] [address], [place] [id number] * (ABNORMAL) BASIC METABOLIC PANEL (07/06/2025 5:05 AM EST) Pathologist [facility] Sodium 140 136 - 145 mmol/L 07/06/2025 5:48 AM EST [facility] Potassium 4.1 3.5 - 5.0 mmol/L 07/06/2025 5:48 AM EST [facility] Chloride 103 98 - 107 mmol/L 07/06/2025 5:48 AM EST [facility] Total CO2 28 22 - 29 mmol/L 07/06/2025 5:48 AM EST [facility] Anion Gap 9 7 - 16 mmol/L 07/06/2025 5:48 AM EST [facility] Calcium 8.4(L) 8.6 - 10.4 mg/dL 07/06/2025 5:48 AM EST [facility] Glucose Lvl 102(H) 70 - 99 mg/dL 07/06/2025 5:48 AM EST [facility] BUN 5(L) 6 - 20 mg/dL 07/06/2025 5:48 AM EST [facility] Creatinine 0.79 0.51 - 1.30 mg/dL 07/06/2025 5:48 AM EST [facility] eGFR (CKD-EPIcr 2020) 95 >=60 mL/min/1.7 3 m2 07/06/2025 5:48 AM EST [facility] Comment:Estimated GFR was ca lculated using the CKD-EPIcr (2020) equation refit without race. The equation is recommended by the [employer] Kid[employer] - [place] [employer] Nephrology Task Force. Blood VENOUS BLOOD / Unknown Venipuncture / Unknown 07/06/2025 5:05 AM EST 07/06/2025 5:24 AM EST Stephanie Adamson DATA ARCHITECT MANAGER CHEMISTRY ORDERABLES Fi nal Result [facility] [address] [place] [id number] * (ABNORMAL) PREALBUMIN (07/05/2025 5:02 PM EST) Prealbumin 14.5(L) 20.0 - 40.0 mg/dL 07/05/2025 7:42 PM EST [facility] Blood VENOUS BLOOD / Unknown Venipuncture / Unknown 07/05/2025 5:02 PM EST 07/05/2025 5:06 PM EST Stephanie Adamson DATA ARCHITECT MANAGER CHEMISTRY ORDERABLES Fi nal Result [employer] [address] [place] [address] , [place] [address] * TRIGLYCERIDES (07/05/2025 5:02 PM EST) Pathologist [facility] Triglyceride 61 <150 mg/dL 07/06/2025 1:43 AM EST [employer] Comment: < 150 Normal 150 - 199 Borderline High 200 - 499 High >= 500 Very High Blood VENOUS BLOOD / Unknown Venipuncture / Unknown 07/05/2025 5:02 PM EST 07/05/2025 5:06 PM EST Stephanie Adamson DATA ARCHITECT MANAGER CHEMISTRY ORDERABLES Fi nal Result [employer] [address] [facility] , [place] [address] * TRIGLYCERIDES (07/05/2025 5:02 PM EST) [facility] Triglyceride 59 <150 mg/dL 07/05/2025 7:54 PM EST [employer] Comment: < 150 Normal 150 - 199 Borderline High 200 - 499 High >= 500 Very High Blood VENOUS BLOOD / Unknown Venipuncture / Unknown 07/05/2025 5:02 PM EST 07/05/2025 5:06 PM EST Stephanie Adamson DATA ARCHITECT MANAGER CHEMISTRY ORDERABLES Fi nal Result Performing Organization Address City/[facility]/ZIP Co de Phone Number [employer] [address] [facility] , [place] [address] * MAGNESIUM LEVEL (07/05/2025 5:02 PM EST) Pathologist [facility] Magnesium 1.9 1.6 - 2.4 mg/dL 07/05/2025 5:26 PM EST [facility] Blood VENOUS BLOOD / Unknown Venipuncture / Unknown 07/05/2025 5:02 PM EST 07/05/2025 5:06 PM EST Stephanie Adamson DATA ARCHITECT MANAGER CHEMISTRY ORDERABLES Fi nal Result [facility] [address] [place] [address] * PHOSPHORUS LEVEL (07/05/2025 5:02 PM EST) Pathologist [facility] Phosphorus 3.3 2.5 - 4.5 mg/dL 07/05/2025 5:26 PM EST [facility] Blood VENOUS BLOOD / Unknown Venipuncture / Unknown 07/05/2025 5:02 PM EST 07/05/2025 5:06 PM EST Stephanie Adamson DATA ARCHITECT MANAGER CHEMISTRY ORDERABLES Fi nal Result Performing Organization Address City/[facility]/ZIP Co de Phone Number [facility] [address] [place] [address] * (ABNORMAL) HEPATIC FUNCTION PANEL (07/05/2025 5:02 PM EST) [facility] Total Protein 7.6 6.4 - 8.3 gm/dL 07/05/2025 5:26 PM EST [facility] Albumin 4.0 3.5 - 5.2 gm/dL 07/05/2025 5:26 PM EST [facility] Bili Direct <0.2 0.0 - 0.3 mg/dL 07/05/2025 5:26 PM EST [facility] Bili Total 0.3 0.2 - 1.3 mg/dL 07/05/2025 5:26 PM EST [facility] AST 20 <=40 U/L 07/05/2025 5:26 PM EST [facility] ALT 7 <=41 U/L 07/05/2025 5:26 PM EST [facility] Alk Phos 127(H) 36 - 123 U/L 07/05/2025 5:26 PM EST [facility] Blood VENOUS BLOOD / Unknown Venipuncture / Unknown 07/05/2025 5:02 PM EST 07/05/2025 5:06 PM EST Stephanie Adamson DATA ARCHITECT MANAGER CHEMISTRY ORDERABLES Fi nal Result Performing Organization Address City/[facility]/ZIP Co de Phone Number [facility] [address] [place] [address] * (ABNORMAL) CBC (07/05/2025 5:02 PM EST) WBC 7.8 3.7 - 10.3 x10(3)/mcL 07/05/2025 5:08 PM EST [facility] RBC 4.21 3.90 - 5.20 x10(6)/mcL 07/05/2025 5:08 PM EST [facility] Hgb 12.2 11.2 - 15.7 g/dL 07/05/2025 5:08 PM EST [facility] Hct 37.0 34.0 - 45.0 % 07/05/2025 5:08 PM EST [facility] MCV 87.9 80.0 - 100.0 fL 07/05/2025 5:08 PM EST [facility] MCH 29.0 26.0 - 34.0 pg 07/05/2025 5:08 PM EST [facility] MCHC 33.0 30.7 - 35.5 g/dL 07/05/2025 5:08 PM EST [facility] RDW 13.2 <=14.9 % 07/05/2025 5:08 PM EST [facility] Platelet 319 155 - 369 x10(3)/mcL 07/05/2025 5:08 PM EST [facility] MPV 8.7(L) 8.8 - 12.5 fL 07/05/2025 5:08 PM EST [facility] Blood VENOUS BLOOD / Unknown Venipuncture / Unknown 07/05/2025 5:02 PM EST 07/05/2025 5:06 PM EST us Stephanie Adamson DATA ARCHITECT MANAGER HEMATOLOGY ORDERABLES F inal Result [facility] [address] [place] [address] * (ABNORMAL) BASIC METABOLIC PANEL (07/05/2025 5:02 PM EST) Pathologist [facility] Sodium 138 136 - 145 mmol/L 07/05/2025 5:26 PM EST [facility] Potassium 4.0 3.5 - 5.0 mmol/L 07/05/2025 5:26 PM EST [facility] Chloride 100 98 - 107 mmol/L 07/05/2025 5:26 PM EST [facility] Total CO2 28 22 - 29 mmol/L 07/05/2025 5:26 PM [facility] Anion Gap 10 7 - 16 mmol/L 07/05/2025 5:26 PM [facility] Calcium 9.4 8.6 - 10.4 mg/dL 07/05/2025 5:26 PM [facility] Glucose Lvl 130(H) 70 - 99 mg/dL 07/05/2025 5:26 PM [facility] BUN 4(L) 6 - 20 mg/dL 07/05/2025 5:26 PM [facility] Creatinine 0.76 0.51 - 1.30 mg/dL 07/05/2025 5:26 PM [facility] eGFR (CKD-EPIcr 2020) 100 >=60 mL/min/1.7 3 m2 07/05/2025 5:26 PM [facility] Comment:Estimated GFR was ca lculated using the CKD-EPIcr (2020) equation refit without race. The equation is recommended by the [employer] Kid[employer] - [place] [employer] Nephrology Task Force. Blood VENOUS BLOOD / Unknown Venipuncture / Unknown 07/05/2025 5:02 PM EST 07/05/2025 5:06 PM EST Stephanie Adamson DATA ARCHITECT MANAGER CHEMISTRY ORDERABLES Fi nal Result [facility] [address] [place] [address] * PARTIAL THROMBOPLASTIN TIME (07/05/2025 5:01 PM EST) PTT 34.9 25.7 - 36.8 second(s) 07/05/2025 5:18 PM EST [facility] Comment: Therapeutic range for unfractionated [...] EST 07/05/2025 5:06 PM EST Stephanie Adamson [facility] HEMATOLOGY ORDERABLES F inal Result Performing Organization Address [facility] de Phone Number [facility] [address] [place] [address] * PT / INR (07/05/2025 5:01 PM EST) PT 12.2 10.5 - 13.6 second(s) 07/05/2025 5:18 PM EST [facility] INR 1.06 0.91 - 1.18 (ratio) 07/05/2025 5:18 PM EST [facility] Comment: Level of Therapy Indications Target INR Range Standard Dose Treatment and prophylaxis of venous 2.0 - 3.0 thrombosis, pulmonary embolism High Dose High risk patients with mechanical 2.5 - 3.5 heart valves Blood VENOUS BLOOD / Unknown Venipuncture / Unknown 07/05/2025 5:01 PM EST 07/05/2025 5:06 PM EST Stephanie Unger [facility] HEMATOLOGY ORDERABLES F inal Result Performing Organization Address [facility] de Phone Number [facility] [address] [place] [address] * ESOPHAGOGASTRODUODENOSCOPY (EGD) (07/05/2025 2:34 [...] anastomosis Staff Staff Role Caterina Rodas RN Events Intern DESTINY Brannon CRNA, MD Anesthesiologist David Rm [...] Room 07/05 02:34 PM us Margaux Easley DATA ARCHITECT MANAGER ENDOSCOPY PROCEDURE ORDER JUAN JOSE Final Result * PATHOLOGY TISSUE REQUEST (07/05/2025 2:31 PM EST) CASE REPORT Surgical Pathology Case: [id number] Authorizing Provider: David Peguero MD Collected: 07/05/2025 1431 Ordering Location: [facility] 3 Received: 07/05/2025 1534 Pathologist: Marilou Stanton MD Specimen: Gastric, Gastric biopsies via forceps 07/06/2025 2:32 PM EST [facility] FINAL DIAGNOSIS A. Gastric biopsies: - Gastric body type mucosa with mild chronic inflammation. - Negative for H. pylori organisms on H&E stained slides. 07/06/2025 2:32 PM EST [facility] at 1432 EST GROSS DESCRIPTION A. Received in formalin and labeled with the patient's name, medical record number, and gastric biopsies are 4 fragments of yost tissue ranging from 0.5 to 0.6 cm in greatest dimension. Entirely submitted in A1. Jame Lancaster 07/06/2025 07/06/2025 2:32 PM EST [facility] MICROSCOPIC DESCRIPTION The microscopic examination may have been rendered in whole, or in part, by analyzing high-resolutio n digital images (whole slide images) on the [employer] Digital Pathology platform validated at [facility]. 07/06/2025 2:32 PM EST [facility] EMBEDDED IMAGES 07/06/2025 2:32 PM EST [facility] Tissue STOMACH STRUCTURE / Unknown 07/05/2025 2:31 PM EST 07/05/2025 3:34 PM EST us David Rm MD PATHOLOGY ORDERABLES Final Result [facility] [address] [place] [address] * VITAMIN B1 (THIAMINE) WHOLE BLOOD -REF LAB (07/04/2025 9:37 AM EST) Vit B1 WB 132 70 - 180 nmol/L 07/07/2025 1:33 PM EST [facility] Comment: INTERPRETIVE INFORMATION: Vitamin B1, Whole Blood This assay measures the concentration of thiamine diphosphate (TDP), the primary active form of vitamin B1. Approximately 90 percent of vitamin B1 present in whole blood is TDP. Thiamine and thiamine monophosphate, which comprise the remaining 10 percent, are not measured. This test was developed and its performance characteristics determined by [facility]. It has not been cleared or approved by the [place] Food and Drug Administration. This test was performed in a CLIA certified laboratory and is intended for clinical purposes. Performed By: [facility] [address] [place] [address] Ceo Ziff Davis: Sagar Kolb MD, PhD CLIA Number: [id number] Blood VENOUS BLOOD / Unknown Venipuncture / Unknown 07/04/2025 9:37 AM EST 07/04/2025 9:52 AM EST Tamara Karimi PA-C CHEMISTRY ORDERABLES Final R esult [facility] [address] [place] [address] * NICOTINE+METABOLITE, SERUM/PLASMA - REF LAB (07/04/2025 9:36 AM EST) Cotinine, SP 157 ng/mL 07/07/2025 1:10 PM EST [facility] Nicotine, SP 17 ng/mL 07/07/2025 1:10 PM EST [facility] Comment: INTERPRETIVE INFORMATION: Nicotine and Metabolites, [...] developed and its performance characteristics determined by [facility]. It has not been cleared or approved by the US Food and Drug Administration. This test was performed in a CLIA certified laboratory and is intended for clinical purposes. Performed By: [facility] [address] [place] [address] Ceo Z[employer] Davis: Sagar Kolb MD, PhD CLIA Number: [id number] Blood VENOUS BLOOD / Unknown Venipuncture / Unknown 07/04/2025 9:36 AM EST 07/04/2025 9:54 AM EST Tamara Karimi PA-C CHEMISTRY ORDERABLES Final R esult [employer] [address] [place] [address] * (ABNORMAL) VITAMIN D 25 HYDROXY (07/04/2025 9:36 AM EST) Pathologist [facility] Vit D 25 OH 27.2(L) 30.0 - 150.0 ng/mL 07/04/2025 1:08 PM EST [facility] Comment: Preferred: >= 30 ng/mL Insufficient: 21-29 [...] Karimi PA-C CHEMISTRY ORDERABLES Final R esult [facility] [address] [facility] , [place] [address] * VITAMIN B12/ FOLIC ACID (07/04/2025 9:36 AM EST) Pathologist [facility] Vitamin B12 781 232 - 1,245 pg/mL 07/04/2025 1:08 PM EST [facility] Folate 6.93 >=4.80 ng/mL 07/04/2025 1:08 PM EST [employer] Blood VENOUS BLOOD / Unknown Venipuncture / Unknown 07/04/2025 9:36 AM EST 07/04/2025 9:53 AM EST Narrative PREFERRED [facility] [employer], [facility] - 07/04/2025 1:08 PM EST Ingestion of tarik doses of biotin (>5 mg/day) taken within 8 hours of drawing blood sample can interfere with this immunoassay test. Tamara Karimi PA-C CHEMISTRY ORDERABLES Final R esult Performing Organization Address City/[facility]/ZIP Co de Phone Number PREFERRED LAB [employer] [address] [facility] , [place] [address] * (ABNORMAL) IRON+TIBC (07/04/2025 9:36 AM EST) Iron 43 30 - 160 mcg/dL 07/04/2025 12:51 PM EST PREFERRED LAB [facility], [facility] Transferrin 181(L) 200 - 360 mg/dL 07/04/2025 12:51 PM EST PREFERRED LAB [facility], [facility] Transferrin Saturation 17(L) 20 - 50 % 07/04/2025 12:51 PM EST PREFERRED LAB [facility], [facility] TIBC 253 250 - 400 mcg/dL 07/04/2025 12:51 PM EST PREFERRED LAB [facility], [facility] Blood VENOUS BLOOD / Unknown Venipuncture / Unknown 07/04/2025 9:36 AM EST 07/04/2025 9:53 AM EST Tamara Karimi PA-C CHEMISTRY ORDERABLES Final R esult Performing Organization Address City/[facility] Co de Phone Number PREFERRED LAB [employer], [facility] [address] [facility] , [place] [address] * (ABNORMAL) PREALBUMIN (07/04/2025 9:36 AM EST) Prealbumin 14.7(L) 20.0 - 40.0 mg/dL 07/04/2025 2:19 PM EST PREFERRED LAB [facility], [employer] Blood VENOUS BLOOD / Unknown Venipuncture / Unknown 07/04/2025 9:36 AM EST 07/04/2025 9:53 AM EST Tamara Karimi PA-C CHEMISTRY ORDERABLES Final R ult [employer] [facility] [address] [facility] , [facility] [place] [address] * (ABNORMAL) HEPATIC FUNCTION PANEL (07/04/2025 5:48 AM EST) Total Protein 6.1(L) 6.4 - 8.3 gm/dL 07/04/2025 9:34 AM EST [facility] Albumin 3.3(L) 3.5 - 5.2 gm/dL 07/04/2025 9:34 AM EST [facility] Bili Direct <0.2 0.0 - 0.3 mg/dL 07/04/2025 9:34 AM EST [facility] Bili Total 0.2 0.2 - 1.3 mg/dL 07/04/2025 9:34 AM EST [facility] AST 15 <=40 U/L 07/04/2025 9:34 AM EST [facility] ALT 6 <=41 U/L 07/04/2025 9:34 AM EST [facility] Alk Phos 100 36 - 123 U/L 07/04/2025 9:34 AM EST [facility] Blood VENOUS BLOOD / Unknown Venipuncture / Unknown 07/04/2025 5:48 AM EST 07/04/2025 6:10 AM EST Tamara Karimi PA-C CHEMISTRY ORDERABLES Final R esult [facility] [address] [place] [address] * (ABNORMAL) CBC WITH DIFF (07/04/2025 5:48 AM EST) WBC 7.9 3.7 - 10.3 x10(3)/mcL 07/04/2025 6:14 AM EST [facility] RBC 3.56(L) 3.90 - 5.20 x10(6)/mcL 07/04/2025 6:14 AM [facility] Hgb 10.4(L) 11.2 - 15.7 g/dL 07/04/2025 6:14 AM [facility] Hct 31.6(L) 34.0 - 45.0 % 07/04/2025 6:14 AM [facility] MCV 88.8 80.0 - 100.0 fL 07/04/2025 6:14 AM [facility] MCH 29.2 26.0 - 34.0 pg 07/04/2025 6:14 AM [facility] MCHC 32.9 30.7 - 35.5 g/dL 07/04/2025 6:14 AM [facility] RDW 13.2 <=14.9 % 07/04/2025 6:14 AM [facility] Platelet 283 155 - 369 x10(3)/mcL 07/04/2025 6:14 AM [facility] MPV 9.2 8.8 - 12.5 fL 07/04/2025 6:14 AM [facility] Neut Percent 41.4 % 07/04/2025 6:14 AM [facility] Comment:Neutrophils equals s egs plus bands Imm Gran% 0.4 % 07/04/2025 6:14 AM [facility] Comment:Automated count of m etamyelocytes, myelocytes and promyelocytes. Lymph Percent 40.4 % 07/04/2025 6:14 AM [facility] [place] Percent 9.8 % 07/04/2025 6:14 AM [facility] Eos Percent 7.1 % 07/04/2025 6:14 AM [facility] Baso Percent 0.9 % 07/04/2025 6:14 AM [facility] Neut # 3.3 1.6 - 6.1 x10(3)/mcL 07/04/2025 6:14 AM [facility] Comment:Neutrophils equals s egs plus bands IMMGRAN# 0.0 0.0 - 0.1 x10(3)/mcL 07/04/2025 6:14 AM [facility] Comment:Automated count of m etamyelocytes, myelocytes and promyelocytes. An absolute IG <0.1 is reported as 0.0. Lymph # 3.2 1.2 - 3.9 x10(3)/mcL 07/04/2025 6:14 AM EST [facility] [place] # 0.8 0.3 - 0.9 x10(3)/mcL 07/04/2025 6:14 AM EST [facility] Eos# 0.6(H) 0.0 - 0.5 x10(3)/mcL 07/04/2025 6:14 AM EST [facility] Baso # 0.1 0.0 - 0.1 x10(3)/[facility] 07/04/2025 6:14 AM EST [facility] Blood VENOUS BLOOD / Unknown Venipuncture / Unknown 07/04/2025 5:48 AM EST 07/04/2025 6:10 AM EST Kathy Geronimo DATA ARCHITECT MANAGER HEMATOLOGY ORDERABLES F inal Result [facility] [address] [place] [id number] * (ABNORMAL) BASIC METABOLIC PANEL (07/04/2025 5:48 AM EST) Sodium 143 136 - 145 mmol/L 07/04/2025 6:32 AM EST [facility] Potassium 4.4 3.5 - 5.0 mmol/L 07/04/2025 6:32 AM EST [facility] Chloride 107 98 - 107 mmol/L 07/04/2025 6:32 AM EST [facility] Total CO2 31(H) 22 - 29 mmol/L 07/04/2025 6:32 AM EST [facility] Anion Gap 5(L) 7 - 16 mmol/L 07/04/2025 6:32 AM EST [facility] Calcium 8.5(L) 8.6 - 10.4 mg/dL 07/04/2025 6:32 AM EST [facility] Glucose Lvl 87 70 - 99 mg/dL 07/04/2025 6:32 AM EST [facility] BUN 10 6 - 20 mg/dL 07/04/2025 6:32 AM EST [facility] Creatinine 0.82 0.51 - 1.30 mg/dL 07/04/2025 6:32 AM EST [facility] eGFR (CKD-EPIcr 2020) 91 >=60 mL/min/1.7 3 m2 07/04/2025 6:32 AM EST [facility] Comment:Estimated GFR was ca lculated using the CKD-EPIcr (2020) equation refit without race. The equation is recommended by the National Kid[employer] - [place] [employer] Nephrology Task Force. Blood VENOUS BLOOD / Unknown Venipuncture / Unknown 07/04/2025 5:48 AM EST 07/04/2025 6:10 AM EST Kathy Geronimo DATA ARCHITECT MANAGER CHEMISTRY ORDERABLES Fi nal Result Performing Organization Address City/State/[facility] Co de Phone Number [facility] [address] [place] [address] documented in this encounter Visit Diagnoses Diagnosis [...] diet. Not for IV use. Supplied by [employer] flavored Given 07/10/2025 9:00 AM EST 1 [...] Nausea 1056 (See Alternative - Provider: Delma Story RN) 0919 (Given - Provider: Rupa Leach, [...] Intravenous, at 150-600 mL/hr, PRN, Starting on Lala 07/06/25 at 1005, [...]
--- OUTSIDE RECORDS SUMMARY | 2025-07-05 14:21 | XMS_ITS | Encounter Summary ---
Author Organization [place] [address] Care Team Providers Care Appeals Examiner Name Role Phone Unavailable Primary Care Provider Unavailabl e Reason for Visit * Auth/Cert/Inpt Specialty Diagnoses / Procedures Referred By Vish xiong Referred To Contact Diagnoses Abdominal pain Anorexia abd pain anorexia Referral ID Status Reason Start Date Expiration Date Visits Re quested Visits Authorized [id number] 1 1 Encounter Details Date Type Department Care Team (Late st Contact Info) Description 07/05/2025 2:21 PM EST Anesthesia Event [facility] [address] [facility]. [place] [id number] Bolivar Stephenson MD [address] [place] [address] [address] [place] [address] Anesthesia Record Procedure Summary Procedure Name Responsible Anesthesiologist Anesthesia Start Time Anesthesia Stop Time ESOPHAGOGASTRODUODENOSCOPY (EGD) Bolivar Stephenson MD 1 09/04/24 1421 07/05/25 1434 Events Date Time Event Comment 07/05/2025 1251 1348 AN Equip Check 1421 An Start 1421 An Start Data 1423 Start Supplemental O2 Disabl es direct capture of O2 [ANES AGENT O2 [[id number]] and Air flow [ANES AGENT AIR [[id number]] variables into chart. 1424 Immediate Pre Anesthetic Ass es 1426 Anesthesia Ready 1428 Time out 1428 Incision 1434 an stop data 1434 Handoff I completed my SBAR handoff to the receiving nurse which has included the followin. Identification of the patient, family, or patient surrogate 2. Identification of the responsible practitioner 3. Pertinent medical history 4. Surgical procedure and reason for procedure 5. Intraoperative anesthetic management 6. All current lines, drains and respiratory support. 7. Outstanding follow up orders (X-rays, consults etc) 8. Expectations/Plans for the early post-procedure period 9. Opportunity for questions and acknowledgement of understanding from the receiving PACU/ICU steam crane operator 5134 An Stop Meds Name Total lidocaine injection 1% 20 mg propofol (DIPRIVAN) injection 100 mg propofol (DIPRIVAN) infusion 10 mg/mL 75 ,465 mcg lactated ringers infusion 200 mL * Agents Name O2 N2O Air * Blood No blood administrations on file. Lines, Drains, and Airways Type Details Placement Removal Peripheral IV 07/05/25; 1242; 20; Right, Anterior; Forearm; Elizabeth RN; 1; 07/06/25; 1007; Therapy completed; Catheter intact, Dressing applied, No Complications 07/05/25 1242 by Deb Campos, DARCY 07/06/25 1007 by Neo Evans RN Airway Device: Nasal Cannul a Salter; Placement Date: 07/05/25; Placement Time: 1423 (created via procedure documentation); Removal Date: 07/05/25; Removal Time: 19007/05/25 1424 by Margaux Almanza, GREEN MARKETING ANALYST 07/05/25 1900 by Abby Madden, DARCY documented in this encounter Social History Tobacco Use Types Packs/Day Years Used Date Smoking Tobacco: Some Days Cigarettes Smokeless Tobacco: Former Alcohol Use Standard Drinks/Week Comments Not Currently 0 (1 standard drink = 0.6 oz pur e alcohol) PHQ-2 Answer Date Recorded PHQ-2 Total Score 2 07/04/2025 Overall Financial Resource Strain (CARDIA) Answe r Date Recorded How hard is it for you to pa y for the very basics like food, housing, medical care, and heating? Not very hard 07/04/2025 [facility] [place] of Occupat ional Health - Occupational Stress [...] money to get more. Often true 07/04/2025 [facility] Utilities Answer Date Recorded In the past 12 months has th e electric, gas, oil, or water company threatened to shut off services in your home? No 07/04/2025 [facility] IP Transportation Answer D ate [...] on file documented as of this encounter Procedure Notes * Margaux Almanza CRNA - 07/05/2025 2:24 PM ESTAssociated Order(s): Airway Intraop Airway Placement: Date/Time: 07/05/2025 2:24 PM Airway type: Nasal cannula salter documented in this encounter OR Notes * Anesthesia Postprocedure Evaluation - Bolivar Stephenson MD - 07/05/2025 3:06 PM EST Post-Anesthesia Evaluation Note Patient Name: Alexei Macias Patient Date: July 05, 2025 Post-Anesthesia Evaluation Patient Location: [facility] Post op vitals: stable Difficult airway: no Nausea controlled: yes Level of consciousness: awake, alert and oriented Post anesthesia pain: adequate analgesia Long acting local anesthetic: n/a Airway patency: patent Respiratory status: spontaneous ventilation and room air Cardiovascular status: stable Hydration status: euvolemic Temperature: Normothermia Perioperative complications: NONE Vitals Value Taken Time BP 98/73 07/05/25 14:49 Resp 16 07/05/25 14:49 SpO2 97 % 07/05/25 14:49 Temp 36.8 ??C (98.2 ??F) 07/05/25 14:36 Pulse 59 07/05/25 14:49 * Anesthesia Preprocedure Evaluation - Bolivar Stephenson MD - 07/05/2025 12:46 PM EST Pre-Anesthesia Evaluation Note Patient Name: Alexei Macias Sex: female Patient : 1985 Age: 40 y.o. Patient Date: July 05, 2025 Anesthesia Evaluation Previous anesthesia. 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 Anesthesia Plan ASA 3 Last solid intake: The patient has not eaten within the last 8 hours. Last clear liquid intake: The patient has not had clear liquids within the last 2 hours. Last tobacco use: The patient has not used tobacco today. Anesthesia Plan: MAC Induction: intravenous Monitors: STD Has upper lip metal piercing, told of burn risks Informed consent Anesthetic plan and risks discussed with: patient. Chart Reviewed and patient examined documented in this encounter Plan of Treatment Not on file documented as of this encounter Procedures Procedure Name Priority Date/Time Associated Diagnosis Comments INTRAOP AIRWAY PLACEMENT Routine 07/05/2025 2:24 PM EST documented in this encounter Results * INTRAOP AIRWAY PLACEMENT (07/05/2025 2:24 PM EST) Narrative [facility] - 07/05/2025 2:24 PM EST Margaux Almanza CRNA 07/05/2025 2:24 PM Intraop Airway Placement: Date/Time: 07/05/2025 2:24 PM Airway type: Nasal cannula salter us Bolivar Stephenson MD [place] ANESTHESIA Final Result [facility] [address] [place] [address] documented in this encounter Visit Diagnoses Not on filedocumented in this encounter Administered Medications Inactive Administered Medications - up to 1 most recent administrations Medication Order MAR Action Action Date Dose Rate Site lactated ringers infusion Intravenous, at 75 mL/hr, CONTINUOUS, Starting on Thu07/05/25 at 1415, Until Lala 07/06/25 at 1414, Pre-procedure(ENDO) IV Restarted 07/05/2025 2:21 PM EST lidocaine 1% 10 mg/mL (1 %) injection Intravenous, PRN (Anesthesia), Starting on Thu07/05/25 at 1425, Until Thu07/05/25 at 1457, Anesthesia Intra-op Given 07/05/2025 2:25 PM EST 20 mg propofol (DIPRIVAN) infusion 10 mg/mL Intravenous, CONTINUOUS PRN, Starting on Thu07/05/25 at 1425, Until Thu07/05/25 at 1457, Anesthesia Intra-op New Bag 07/05/2025 2:25 PM EST 150 mcg/kg/min 50.31 mL/hr propofoL (DIPRIVAN) injection Intravenous, PRN (Anesthesia), Starting on Thu07/05/25 at 1425, Until Thu07/05/25 at 1457, Anesthesia Intra-op Given 07/05/2025 2:25 PM EST 100 mg documented in this encounter Additional Health Concerns Assessment Noted Time PHQ-9 Depression Total Score: 2 07/04/20 2:43 PM EST PHQ-2 Depression Total Score: 2 07/04/20 2:43 PM EST documented as of this encounter
--- OUTSIDE RECORDS SUMMARY | 2025-07-06 08:40 | XMS_ITS | Encounter Summary ---
Author Organization [place] [address] Care Team Providers Care Mechanism Inspector Name Role Phone Unavailable Primary Care Provider Unavailabl e Encounter Details Date Type Department Care Team (Late st Contact Info) Description 07/06/2025 8:40 AM EST Ancillary Procedure [facility] [address] [place] [address] Social History Tobacco Use Types Packs/Day Years [...] care, and heating? Not very hard 07/04/2025 [facility] [place] of Occupat ional Health - Occupational Stress [...] to get more. Often true 07/04/2025 [facility] Utilities Answer Date Recorded In the past 12 months has th e electric, gas, oil, or water company threatened to shut off services in your home? No 07/04/2025 [facility] IP Transportation Answer D ate Recorded [...]
--- OUTSIDE RECORDS SUMMARY | 2025-08-07 15:16 | XMS_ITS | Clinical Summary ---
Author Organization [facility] Address [address] [place] [address] Care Team Providers Care Office Helper Clerical Name Role Phone Unavailable Primary Care Provider [...] age to complete this topic Insurance [employer] [facility] [place]
--- OUTSIDE RECORDS SUMMARY | 2025-08-07 15:16 | XMS_ITS | Clinical Summary ---
Author Organization [facility] Address [facility] [place] [address] Phone Care Team Providers Care Thoracic Medicine Specialist Name Role Phone Unavailable Primary Care Provider Unavailabl e Allergies Active Allergy Reactions Criticality Noted Date Comments Coriander & Cilantro (Coriandrum Sativum) Anaphylaxis High 07/03/2025 Ibuprofen Other (See Comments) 07/03/2025 Post op bariatric Medications QUEtiapine (SEROQUEL) 100 mg Oral Tablet Take 100 mg by mouth nightly. Active pregabalin (LYRICA) 150 mg Oral Capsule Take 200 mg by mouth 2 times daily. Active LORazepam (ATIVAN) 1 mg Oral Tablet Take 1 mg by mouth 2 times daily as needed for Anxiety or Restlessness. Active hydrOXYzine (VISTARIL) 50 mg Oral Capsule Take 50 mg by mouth 4 times daily as needed for Other (anxiety). Active cholecalciferol , vitamin D3, 25 mcg (1,000 unit) Oral Tablet Take 1 Tablet by mouth daily for 30 days. 30 Tablet 07/19/2025 1:08 PM EST 5 08/19/19 26 Active fat emulsion 20 % IV Emulsion Inject 250 mL into the vein daily at 6pm. 5 Active pantoprazole (PROTONIX) 40 mg Oral Tablet, Delayed Release (E.C.) Take 1 Tablet by mouth 2 times daily for 60 days. 120 Tablet 5 09/17/19 26 Active oxyCODONE (ROXICODONE) 5 mg Oral Tablet Take 1-2 Tablets by mouth every 6 hours as needed for Acute Pain (R52). 24 Tablet 5 Active nalOXone (NARCAN) 4 mg/actuation Nasl [place], Non-Aerosol [place] the contents of one device (0.1mL) into one nostril upon signs of opioid overdose. Call 911. May repeat dose in other nostril if no response within 2-3 minutes. 2 Each 07/19/2025 1:08 PM EST Active amoxicillin-cla vulanate (AUGMENTIN) 500-125 mg Oral Tablet Take 500 mg by mouth 3 times daily. 07/19/20 Discontinu ed(Stop Taking at Discharge) estradioL (ESTRACE) 0.01 % (0.1 mg/gram) Vagl Cream Place 4 g vaginally two times a week. 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 Left leg pain 07/10/2025 Assessment & Plan (07/11/2025 12:02 AM EST): -- Venous duplex of left lower extremity: Acute reaction to situational stress 07/06/2025 Assessment & Plan (07/10/2025 2:25 PM EST): -- Ativan, Vistaril, Seroquel [employer]. Continued -- psychiatry consulted -- more anxiety issues - psychiatry re-consulted. Assessment & Plan (07/09/2025 11:09 AM EST): -- Ativan, Vistaril, Seroquel [employer]. Continued -- psychiatry consulted Assessment & Plan (07/08/2025 8:21 PM EST): -- Ativan, Vistaril, Seroquel [employer]. Continued -- psychiatry consulted Assessment & Plan (07/08/2025 7:47 PM EST): -- Ativan, Vistaril, Seroquel [employer]. Continued -- psychiatry consulted Assessment & Plan (07/06/2025 10:27 PM EST): -- Ativan, Vistaril, Seroquel [employer]. Continued -- psychiatry consulted Assessment & Plan (07/06/2025 12:36 AM EST): -- Ativan, Vistaril, Seroquel [employer]. Continued Assessment & Plan (07/06/2025 12:18 AM EST): -- Ativan, Vistaril, Seroquel [employer]. Continued Vitamin D insufficiency 07/06/2025 Assessment & Plan (07/10/2025 2:25 PM EST): -- Vitamin D supplementation Assessment & Plan (07/09/2025 11:09 AM EST): -- Vitamin D supplementation Assessment & Plan (07/08/2025 8:21 PM EST): -- Vitamin D supplementation Assessment & Plan (07/08/2025 7:47 PM EST): -- Vitamin D supplementation Assessment & Plan (07/06/2025 10:27 PM EST): -- Vitamin D supplementation Borderline personality disorder 07/05/2025 Assessment & Plan (07/18/2025 3:17 PM EST): - Continue Seroquel 25mg qAM, 100mg qhs [...] timeline to achieve treatment goals: 1-6 months Assessment & Plan (07/10/2025 2:25 PM EST): -- Ativan, Vistaril, Seroquel [employer]. Continued -- psychiatry consulted -- more anxiety issues - psychiatry re-consulted. Assessment & Plan (07/09/2025 11:09 AM EST): -- Ativan, Vistaril, Seroquel [employer]. Continued -- psychiatry consulted Assessment & Plan (07/08/2025 8:21 PM EST): -- Ativan, Vistaril, Seroquel [employer]. Continued -- psychiatry consulted Assessment & Plan (07/08/2025 7:47 PM EST): -- Ativan, Vistaril, Seroquel [employer]. Continued -- psychiatry consulted Assessment & Plan (07/06/2025 10:27 PM EST): -- Ativan, Vistaril, Seroquel [employer]. Continued -- psychiatry consulted Underweight 07/05/2025 Assessment & Plan (07/11/2025 12:02 AM EST): -- Affecting all aspects of patient's health [...] kcal, 252 g carb, 3.1 mg carb/kg/min. [id number]% of protein needs and low range of calorie needs. Oral intake is dependent on pts pain, therefore any oral intake is a bonus. Medical Food Supplements: Glucerna Therapeutic; Beneprotein Vitamin and Mineral Supplements: Calcium; Vitamin D; Sodium; Chloride (Clinimix E) Nutrition-Related Medication Management: Protonix Collaboration And Referral Of Nutrition Care: Collaboration with other providers (SCREEN OPERATOR, RN, Pharmacist) -- B12 and folate wnl. Iron normal. Transferrin sat low, TIBC wnl. Mag wnl. Phos wnl. Triglyceride 59 -- Prealbumin 14.7 -- TPN Assessment & Plan (07/09/2025 11:09 AM EST): -- Affecting all aspects of patient's health [...] 3/1 mg carb/kg/min. @ Goal TPN will [id number]% of protein needs and low range of calorie needs. Oral intake is dependent on pts pain, therefore any oral intake is a bonus. Medical Food Supplements: Glucerna Therapeutic; Beneprotein Vitamin and Mineral Supplements: Vitamin D (w/Clinimix E) Nutrition-Related Medication Management: Protonix Collaboration And Referral Of Nutrition Care: Collaboration with other providers (SCREEN OPERATOR, RN, Pharmacist) -- B12 and folate wnl. Iron normal. Transferrin sat low, TIBC wnl. Mag wnl. Phos wnl. Triglyceride 59 -- Prealbumin 14.7 -- TPN Assessment & Plan (07/08/2025 8:21 PM EST): -- Affecting all aspects of patient's health [...] Of Nutrition Care: Collaboration with other providers (SCREEN OPERATOR, RN, Pharmacist) -- B12 and folate wnl. Iron normal. Transferrin sat low, TIBC wnl. Mag wnl. Phos wnl. Triglyceride 59 -- Prealbumin 14.7 -- TPN Assessment & Plan (07/08/2025 7:47 PM EST): -- Affecting all aspects of patient's health [...] 3/1 mg carb/kg/min. @ Goal TPN will [id number]% of protein needs and low range of calorie needs. Oral intake is dependent on pts pain, therefore any oral intake is a bonus. Medical Food Supplements: Glucerna Therapeutic; Beneprotein Vitamin and Mineral Supplements: Vitamin D (w/Clinimix E) Nutrition-Related Medication Management: Protonix Collaboration And Referral Of Nutrition Care: Collaboration with other providers (SCREEN OPERATOR, RN, Pharmacist) -- B12 and folate wnl. Iron normal. Transferrin sat low, TIBC wnl. Mag wnl. Phos wnl. Triglyceride 59 -- Prealbumin 14.7 -- TPN Assessment & Plan (07/06/2025 10:27 PM EST): -- Affecting all aspects of patient's health [...] 3/1 mg carb/kg/min. @ Goal TPN will [id number]% of protein needs and low range of [...] Triglyceride 59 -- Prealbumin 14.7 -- TPN Assessment & Plan (07/06/2025 12:36 AM EST): -- Affecting all aspects of patient's health [...] to advance oral diet and/or consideration for nutrition support) Parenteral Nutrition/IV Fluids: Pt asking about possibilty [...] Phos wnl. Triglyceride 59 -- Prealbumin 14.7 Assessment & Plan (07/06/2025 12:18 AM EST): -- Affecting all aspects of patient's health and care Moderate protein-calorie malnutrition 07/05/2025 Assessment & Plan (07/11/2025 12:02 AM EST): -- Affecting all aspects of patient's health [...] carbonated beverages) Parenteral Nutrition/IV Fluids: Continue Clinimix 12/29 @ 70 ml/hr with daily lipids= 84 g protein, 1693 kcal, 252 g carb, 3.1 mg carb/kg/min. [id number]% of protein needs and low range of calorie needs. Oral intake is dependent on pts pain, therefore any oral intake is a bonus. Medical Food Supplements: Glucerna Therapeutic; Beneprotein Vitamin and Mineral Supplements: Calcium; Vitamin D; Sodium; Chloride (Clinimix E) Nutrition-Related Medication Management: Protonix Collaboration And Referral Of Nutrition Care: Collaboration with other providers (SCREEN OPERATOR, RN, Pharmacist) -- B12 and folate wnl. Iron normal. Transferrin sat low, TIBC wnl. Mag wnl. Phos wnl. Triglyceride 59 -- Prealbumin 14.7 -- TPN Assessment & Plan (07/09/2025 11:09 AM EST): -- Affecting all aspects of patient's health [...] 3/1 mg carb/kg/min. @ Goal TPN will [id number]% of protein needs and low range of [...] Triglyceride 59 -- Prealbumin 14.7 -- TPN Assessment & Plan (07/08/2025 8:21 PM EST): -- Affecting all aspects of patient's health [...] 3/1 mg carb/kg/min. @ Goal TPN will [id number]% of protein needs and low range of [...] Triglyceride 59 -- Prealbumin 14.7 -- TPN Assessment & Plan (07/08/2025 7:47 PM EST): -- Affecting all aspects of patient's health [...] Triglyceride 59 -- Prealbumin 14.7 -- TPN Assessment & Plan (07/06/2025 10:27 PM EST): -- Affecting all aspects of patient's health [...] 3/1 mg carb/kg/min. @ Goal TPN will [id number]% of protein needs and low range of calorie needs. Oral intake is dependent on pts pain, therefore any oral intake is a bonus. Medical Food Supplements: Glucerna Therapeutic; Beneprotein Vitamin and Mineral Supplements: Vitamin D (w/Clinimix E) Nutrition-Related Medication Management: Protonix, LR's @ 75 ml/hr Collaboration And Referral Of Nutrition Care: Collaboration with other providers (SCREEN OPERATOR, RN) -- B12 and folate wnl. Iron normal. Transferrin sat low, TIBC wnl. Mag wnl. Phos wnl. Triglyceride 59 -- Prealbumin 14.7 -- TPN Assessment & Plan (07/06/2025 12:36 AM EST): -- Affecting all aspects of patient's health [...] to advance oral diet and/or consideration for nutrition support) Parenteral Nutrition/IV Fluids: Pt asking about possibilty [...] Phos wnl. Triglyceride 59 -- Prealbumin 14.7 Assessment & Plan (07/06/2025 12:18 AM EST): -- Affecting all aspects of patient's health and care Dental infection 07/05/2025 Assessment & Plan (07/10/2025 2:25 PM EST): -- Augmentin [employer]. Continued -- improving Assessment & Plan (07/09/2025 11:09 AM EST): -- Augmentin [employer]. Continued -- improving Assessment & Plan (07/08/2025 8:21 PM EST): -- Augmentin [employer]. Continued -- improving Assessment & Plan (07/08/2025 7:47 PM EST): -- Augmentin [employer]. Continued -- improving Assessment & Plan (07/06/2025 10:27 PM EST): -- Augmentin [employer]. Continued -- improving Assessment & Plan (07/06/2025 12:38 AM EST): -- Augmentin [employer]. Continued -- improving Assessment & Plan (07/06/2025 12:18 AM EST): -- Augmentin [employer]. Continued Persistent recurrent vomiting 07/05/2025 Assessment & Plan (07/10/2025 4:36 PM EST): -- OTC PPI [employer]. Continued -- pain management, supportive care, IVF [...] for DVT but with evidence of acute partially-occlusive superficial vein thrombosis of the basilic vein in zones 1 to 5. Assessment & Plan (07/09/2025 3:03 PM EST): -- OTC PPI [employer]. Continued -- pain management, supportive care, IVF [...] upper arm to right neck pain 07/09 Assessment & Plan (07/08/2025 8:21 PM EST): -- OTC PPI [employer]. Continued -- pain management, supportive care, IVF [...] and nutritional status improves. -- pain controlled. Assessment & Plan (07/08/2025 8:27 PM EST): -- OTC PPI [employer]. Continued -- pain management, supportive care, IVF [...] and nutritional status improves. -- 07/08/2025 stable Assessment & Plan (07/06/2025 10:27 PM EST): -- OTC PPI [employer]. Continued -- pain management, supportive care, IVF [...] TPN per general surgery recommendations -- recommended Assessment & Plan (07/06/2025 12:36 AM EST): -- OTC PPI [employer]. Continued -- pain management, supportive care, IVF [...] starting on TPN per general surgery recommendations Assessment & Plan (07/06/2025 12:18 AM EST): -- OTC PPI [employer] -- in setting of gastric bypass surgery, hx of marginal ulcers, PUD, cannabis use Generalized abdominal pain 07/04/2025 Assessment & Plan (07/10/2025 4:36 PM EST): -- OTC PPI [employer]. Continued -- pain management, supportive care, IVF [...] for DVT but with evidence of acute partially-occlusive superficial vein thrombosis of the basilic vein in zones 1 to 5. Assessment & Plan (07/09/2025 3:03 PM EST): -- OTC PPI [employer]. Continued -- pain management, supportive care, IVF [...] upper arm to right neck pain 07/09 Assessment & Plan (07/08/2025 8:21 PM EST): -- OTC PPI [employer]. Continued -- pain management, supportive care, IVF [...] and nutritional status improves. -- pain controlled. Assessment & Plan (07/08/2025 8:27 PM EST): -- OTC PPI [employer]. Continued -- pain management, supportive care, IVF [...] and nutritional status improves. -- 07/08/2025 stable Assessment & Plan (07/06/2025 10:27 PM EST): -- OTC PPI [employer]. Continued -- pain management, supportive care, IVF [...] TPN per general surgery recommendations -- recommended Assessment & Plan (07/06/2025 12:36 AM EST): -- OTC PPI [employer]. Continued -- pain management, supportive care, IVF [...] starting on TPN per general surgery recommendations Assessment & Plan (07/06/2025 12:18 AM EST): -- OTC PPI [employer] -- in setting of gastric bypass surgery, hx of marginal ulcers, PUD, cannabis use History of endometrial cancer 07/04/2025 Assessment & Plan (07/11/2025 12:02 AM EST): d History of gastric bypass 07/04/2025 Assessment & Plan (07/10/2025 4:36 PM EST): -- OTC PPI [employer]. Continued -- pain management, supportive care, IVF [...] for DVT but with evidence of acute partially-occlusive superficial vein thrombosis of the basilic vein in zones 1 to 5. Assessment & Plan (07/09/2025 3:03 PM EST): -- OTC PPI [employer]. Continued -- pain management, supportive care, IVF [...] upper arm to right neck pain 07/09 Assessment & Plan (07/08/2025 8:21 PM EST): -- OTC PPI [employer]. Continued -- pain management, supportive care, IVF [...] and nutritional status improves. -- pain controlled. Assessment & Plan (07/08/2025 8:27 PM EST): -- OTC PPI [employer]. Continued -- pain management, supportive care, IVF [...] and nutritional status improves. -- 07/08/2025 stable Assessment & Plan (07/06/2025 10:27 PM EST): -- OTC PPI [employer]. Continued -- pain management, supportive care, IVF [...] TPN per general surgery recommendations -- recommended Assessment & Plan (07/06/2025 12:36 AM EST): -- OTC PPI [employer]. Continued -- pain management, supportive care, IVF [...] starting on TPN per general surgery recommendations Assessment & Plan (07/06/2025 12:18 AM EST): -- OTC PPI [employer] -- in setting of gastric bypass surgery, hx of marginal ulcers, PUD, cannabis use History of pulmonary embolism 07/04/2025 Assessment & Plan (07/10/2025 2:25 PM EST): -- appears to be provoked -- no longer on anticoagulation Assessment & Plan (07/09/2025 11:09 AM EST): -- appears to be provoked -- no longer on anticoagulation Assessment & Plan (07/08/2025 8:21 PM EST): -- appears to be provoked -- no longer on anticoagulation Assessment & Plan (07/08/2025 7:47 PM EST): -- appears to be provoked -- no longer on anticoagulation Assessment & Plan (07/06/2025 10:27 PM EST): -- appears to be provoked -- no longer on anticoagulation Assessment & Plan (07/06/2025 12:36 AM EST): -- appears to be provoked -- no longer on anticoagulation Assessment & Plan (07/06/2025 12:18 AM EST): -- appears to be provoked -- no longer on anticoagulation Cannabis dependence 07/04/2025 Assessment & Plan (07/18/2025 3:17 PM EST): - Continue Seroquel 25mg qAM, 100mg qhs [...] timeline to achieve treatment goals: 1-6 months Assessment & Plan (07/10/2025 2:25 PM EST): -- Advised to stop Assessment & Plan (07/09/2025 11:09 AM EST): -- Advised to stop Assessment & Plan (07/08/2025 8:21 PM EST): -- Advised to stop Assessment & Plan (07/08/2025 7:47 PM EST): -- Advised to stop Assessment & Plan (07/06/2025 10:27 PM EST): -- Advised to stop Paroxysmal atrial fibrillation 07/04/2025 Assessment & Plan (07/11/2025 12:02 AM EST): -- history not clear -- not on any meds -- 07/10/2025 appears regular Assessment & Plan (07/09/2025 3:03 PM EST): -- history not clear -- not on any meds -- appears regular Assessment & Plan (07/08/2025 8:21 PM EST): -- history not clear -- not on any meds Assessment & Plan (07/08/2025 7:47 PM EST): -- history not clear -- not on any meds Assessment & Plan (07/06/2025 10:27 PM EST): -- history not clear -- not on any meds Assessment & Plan (07/06/2025 12:36 AM EST): -- history not clear -- not on any meds Assessment & Plan (07/06/2025 12:18 AM EST): -- history not clear -- not on any meds Chronic idiopathic constipation 07/04/2025 Assessment & Plan (07/10/2025 2:25 PM EST): -- GI consulted -- Bowel regimen -- -07/08/2020 Assessment & Plan (07/09/2025 3:03 PM EST): -- GI consulted -- Bowel regimen -- -07/08/2020 Assessment & Plan (07/08/2025 8:21 PM EST): -- GI consulted Assessment & Plan (07/08/2025 7:47 PM EST): -- GI consulted Assessment & Plan (07/06/2025 10:27 PM EST): -- GI consulted Assessment & Plan (07/06/2025 12:36 AM EST): -- GI consulted Chronic nausea 07/04/2025 Assessment & Plan (07/10/2025 4:36 PM EST): -- OTC PPI [employer]. Continued -- pain management, supportive care, IVF [...] for DVT but with evidence of acute partially-occlusive superficial vein thrombosis of the basilic vein in zones 1 to 5. Assessment & Plan (07/09/2025 3:03 PM EST): -- OTC PPI [employer]. Continued -- pain management, supportive care, IVF [...] upper arm to right neck pain 07/09 Assessment & Plan (07/08/2025 8:21 PM EST): -- OTC PPI [employer]. Continued -- pain management, supportive care, IVF [...] and nutritional status improves. -- pain controlled. Assessment & Plan (07/08/2025 8:27 PM EST): -- OTC PPI [employer]. Continued -- pain management, supportive care, IVF [...] and nutritional status improves. -- 07/08/2025 stable Assessment & Plan (07/06/2025 10:27 PM EST): -- OTC PPI [employer]. Continued -- pain management, supportive care, IVF [...] TPN per general surgery recommendations -- recommended Assessment & Plan (07/06/2025 12:36 AM EST): -- OTC PPI [employer]. 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 Continued -- psychiatry consulted -- more anxiety issues - psychiatry re-consulted. Assessment & Plan (07/09/2025 11:09 AM EST): -- Ativan, Vistaril, Seroquel [employer]. Continued -- psychiatry consulted Assessment & Plan (07/08/2025 8:21 PM EST): -- Ativan, Vistaril, Seroquel [employer]. Continued -- psychiatry consulted Assessment & Plan (07/08/2025 7:47 PM EST): -- Ativan, Vistaril, Seroquel [employer]. Continued -- psychiatry consulted Assessment & Plan (07/06/2025 10:27 PM EST): -- Ativan, Vistaril, Seroquel [employer]. Continued -- psychiatry consulted Assessment & Plan (07/06/2025 12:36 AM EST): -- Ativan, Vistaril, Seroquel [employer]. Continued Assessment & Plan (07/06/2025 12:18 AM EST): -- Ativan, Vistaril, Seroquel [employer]. Continued GERD (gastroesophageal reflux disease) Assessment & Plan (07/10/2025 4:36 PM EST): -- OTC PPI [employer]. Continued -- pain management, supportive care, IVF [...] for DVT but with evidence of acute partially-occlusive superficial vein thrombosis of the basilic vein in zones 1 to 5. Assessment & Plan (07/09/2025 3:03 PM EST): -- OTC PPI [employer]. Continued -- pain management, supportive care, IVF [...] upper arm to right neck pain 07/09 Assessment & Plan (07/08/2025 8:21 PM EST): -- OTC PPI [employer]. Continued -- pain management, supportive care, IVF [...] and nutritional status improves. -- pain controlled. Assessment & Plan (07/08/2025 8:27 PM EST): -- OTC PPI [employer]. Continued -- pain management, supportive care, IVF [...] and nutritional status improves. -- 07/08/2025 stable Assessment & Plan (07/06/2025 10:27 PM EST): -- OTC PPI [employer]. Continued -- pain management, supportive care, IVF [...] TPN per general surgery recommendations -- recommended Assessment & Plan (07/06/2025 12:36 AM EST): -- OTC PPI [employer]. Continued -- pain management, supportive care, IVF [...] starting on TPN per general surgery recommendations Assessment & Plan (07/06/2025 12:18 AM EST): -- OTC PPI [employer] -- in setting of gastric bypass surgery, hx of marginal ulcers, PUD, cannabis use History of DVT (deep vein thrombosis) 07/04/2025 Assessment & Plan (07/10/2025 2:25 PM EST): -- appears to be provoked -- no longer on anticoagulation Assessment & Plan (07/09/2025 11:09 AM EST): -- appears to be provoked -- no longer on anticoagulation Assessment & Plan (07/08/2025 8:21 PM EST): -- appears to be provoked -- no longer on anticoagulation Assessment & Plan (07/08/2025 7:47 PM EST): -- appears to be provoked -- no longer on anticoagulation Assessment & Plan (07/06/2025 10:27 PM EST): -- appears to be provoked -- no longer on anticoagulation Assessment & Plan (07/06/2025 12:36 AM EST): -- appears to be provoked -- no longer on anticoagulation Assessment & Plan (07/06/2025 12:18 AM EST): -- appears to be provoked -- no longer on anticoagulation History of major depression 07/04/2025 Overview (07/04/2025): Complicates all aspects of her care and follow-up HTN (hypertension) 07/04/2025 Assessment & Plan (07/11/2025 12:02 AM EST): -- not on any meds [employer] -- patient reports that BP been running on low side for awhile -- monitor -- 07/10/2025 in acceptable range Assessment & Plan (07/09/2025 3:03 PM EST): -- not on any meds [employer] -- monitor -- 07/09/2025 in acceptable range Assessment & Plan (07/08/2025 8:21 PM EST): -- not on any meds [employer] -- monitor -- 07/07/2025 in acceptable range Assessment & Plan (07/08/2025 7:47 PM EST): -- not on any meds [employer] -- monitor -- 07/08/2025 in acceptable range Assessment & Plan (07/06/2025 10:27 PM EST): -- not on any meds [employer] -- monitor -- 07/06/2025 in acceptable range Assessment & Plan (07/06/2025 12:36 AM EST): -- not on any meds [employer] -- monitor -- 07/06/2025 in acceptable range Iron deficiency anemia 07/04/2025 Assessment & Plan (07/10/2025 2:25 PM EST): -- Hemoglobin normal. MCV low Assessment & Plan (07/09/2025 11:09 AM EST): -- Hemoglobin normal. MCV low Assessment & Plan (07/08/2025 8:21 PM EST): -- Hemoglobin normal. MCV low Assessment & Plan (07/08/2025 7:47 PM EST): -- Hemoglobin normal. MCV Assessment & Plan (07/06/2025 10:27 PM EST): -- Hemoglobin normal. MCV Assessment & Plan (07/06/2025 12:36 AM EST): -- Hemoglobin normal. MCV Assessment & Plan (07/06/2025 12:18 AM EST): -- Multiple joint pain 07/04/2025 Peptic ulcer disease 07/04/2025 Assessment & Plan (07/10/2025 4:36 PM EST): -- OTC PPI [employer]. Continued -- pain management, supportive care, IVF [...] for DVT but with evidence of acute partially-occlusive superficial vein thrombosis of the basilic vein in zones 1 to 5. Assessment & Plan (07/09/2025 3:03 PM EST): -- OTC PPI [employer]. Continued -- pain management, supportive care, IVF [...] upper arm to right neck pain 07/09 Assessment & Plan (07/08/2025 8:21 PM EST): -- OTC PPI [employer]. Continued -- pain management, supportive care, IVF [...] and nutritional status improves. -- pain controlled. Assessment & Plan (07/08/2025 8:27 PM EST): -- OTC PPI [employer]. Continued -- pain management, supportive care, IVF [...] and nutritional status improves. -- 07/08/2025 stable Assessment & Plan (07/06/2025 10:27 PM EST): -- OTC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 (TYLENOL) tablet 650 mg, 650 mg, Oral, Q4H PRN, Kathy Geronimo, SCREEN OPERATOR flu vac triv (PF) (FLULAVAL/FLUARIX) injection 0.5 mL, 0.5 mL,Intramuscular, ONCE, Zackery Villegas MD hydrOXYzine (VISTARIL) capsule 25-50 mg, 25-50 mg, Oral, QID PRN,Kathy Geronimo APRN LORazepam (ATIVAN) tablet 1 mg, 1 mg, Oral, BID PRN, Carlos Geronimo APRN, 1 mg at 07/03/25 7992 ondansetron (ZOFRAN) tablet 4 mg, 4 mg, Oral, Q6H PRN OR ondansetron(ZOFRAN) injection 4 mg, 4 mg, Intravenous, Q6H PRN, Houlehan, Kathy A,SCREEN OPERATOR oxyCODONE (ROXICODONE) immediate release tablet 5-10 mg, 5-10 mg, Oral,Q4H PRN, Houlehan, Kathy A, SCREEN OPERATOR, 5 mg at 07/04/25 0726 pregabalin (LYRICA) capsule 200 mg, 200 mg, Oral, BID, Houlehan,Kathy A, SCREEN OPERATOR, 200 mg at 07/04/25 0846 QUEtiapine (SEROquel) tablet 100 mg, 100 mg, Oral, Nightly, Houlehan,Kathy A, SCREEN OPERATOR, 100 mg at 07/03/25 2345 [3] Past [...] [6] History reviewed. No pertinent family history. from Last 3 Months Results * GLUCOSE METER POC (07/19/2025 9:49 AM EST) Only the most recent of47 resultswithin the time period is included. [facility] Glucose Meter POC 82 70 - 100 mg/dL 07/19/2025 9:51 AM EST [facility] Sample Type Capillary 07/19/2025 9:51 AM EST [facility] Patient Status Non-Critical Patient 07/19/2025 9:51 AM EST [facility] Blood BLOOD SPECIMEN / Unknown 07/19/2025 9:49 AM EST 07/19/2025 9:51 AM EST us Zackery Villegas MD POINT OF CARE TEST ORDERAB LES Final Result [facility] [address] [place] [address] * (ABNORMAL) BASIC METABOLIC PANEL (07/18/2025 6:51 PM EST) Only the most recent of12 resultswithin the time period is included. Sodium 136 136 - 145 mmol/L 07/18/2025 7:26 PM EST [facility] Potassium 4.6 3.5 - 5.0 mmol/L 07/18/2025 7:26 PM EST [facility] Chloride 103 98 - 107 mmol/L 07/18/2025 7:26 PM EST [facility] Total CO2 29 22 - 29 mmol/L 07/18/2025 7:26 PM EST [facility] Anion Gap 4(L) 7 - 16 mmol/L 07/18/2025 7:26 PM EST [facility] Calcium 8.6 8.6 - 10.4 mg/dL 07/18/2025 7:26 PM EST [facility] Glucose Lvl 84 70 - 99 mg/dL 07/18/2025 7:26 PM EST [facility] BUN 17 6 - 20 mg/dL 07/18/2025 7:26 PM EST [facility] Creatinine 0.78 0.51 - 1.30 mg/dL 07/18/2025 7:26 PM EST [facility] eGFR (CKD-EPIcr 2020) 97 >=60 mL/min/1.7 3 m2 07/18/2025 7:26 PM EST [facility] Comment:Estimated GFR was ca lculated using the CKD-EPIcr (2020) equation refit without race. The equation is recommended by the National Kidney Foundation - [place] [employer] of Nephrology Task Force. Blood VENOUS BLOOD / Unknown Venipuncture / Unknown 07/18/2025 6:51 PM EST 07/18/2025 7:05 PM EST us Jayden Ragsdale MD CHEMISTRY ORDERABLES Final Res ult [facility] [address] [place] [address] * ECG AND WAVEFORMS - TELEMETRY (07/18/2025 7:03 AM EST) Only the most recent of15 resultswithin the time period is included. ECG INTERPRET NSR [facility] 07/18/2025 7:03 AM EST Narrative [facility] - 07/18/2025 8:11 AM EST ECB - ROUTINE RI 0.15 QRS 0.10 RR 0.87 QT 0.41 QTc 0.44 See Clinical Report link for waveform capture us Unknown Provider POINT OF CARE CARDIOLOGY Final Result [facility] [address] [place] [address] * XR CHEST AP PORTABLE (07/17/2025 12:20 [...] please contactthe office of the ordering clinician. Abelino Calderon MD IMG DIAGNOSTIC IMAGING ORDERA BLES Final Result * PHOSPHORUS LEVEL (07/17/2025 8:33 AM EST) Only the most recent of11 resultswithin the time period is included. Phosphorus 3.9 2.5 - 4.5 mg/dL 07/17/2025 8:58 AM EST [facility] Blood VENOUS BLOOD / Unknown Venipuncture / Unknown 07/17/2025 8:33 AM EST 07/17/2025 8:39 AM EST Abelino Calderon MD CHEMISTRY ORDERABLES Final Re sult Performing Organization Address City/[facility] Co de Phone Number [facility] [address] [place] [address] * IONIZED CALCIUM - INPATIENT (07/17/2025 5:56 AM EST) Only the most recent of2 resultswithin the time period is included. Pathologist [facility] Calcium Ionized 1.18 1.12 - 1.32 mmol/L 07/17/2025 6:07 AM EST [facility] Blood VENOUS BLOOD / Unknown Venipuncture / Unknown 07/17/2025 5:56 AM EST 07/17/2025 6:01 AM EST Zackery Villegas MD CHEMISTRY ORDERABLES Final Result Performing Organization Address [facility] Co de Phone Number [facility] [address] [place] [address] * (ABNORMAL) CBC (07/17/2025 5:56 AM EST) Only the most recent of3 resultswithin the time period is included. WBC 5.1 3.7 - 10.3 x10(3)/mcL 07/17/2025 6:06 AM EST [facility] RBC 3.73(L) 3.90 - 5.20 x10(6)/mcL 07/17/2025 6:06 AM [facility] Hgb 11.0(L) 11.2 - 15.7 g/dL 07/17/2025 6:06 AM [facility] Hct 33.3(L) 34.0 - 45.0 % 07/17/2025 6:06 AM [facility] MCV 89.3 80.0 - 100.0 fL 07/17/2025 6:06 AM [facility] MCH 29.5 26.0 - 34.0 pg 07/17/2025 6:06 AM [facility] MCHC 33.0 30.7 - 35.5 g/dL 07/17/2025 6:06 AM [facility] RDW 14.0 <=14.9 % 07/17/2025 6:06 AM [facility] Platelet 196 155 - 369 x10(3)/mcL 07/17/2025 6:06 AM [facility] MPV 10.1 8.8 - 12.5 fL 07/17/2025 6:06 AM [facility] Blood VENOUS BLOOD / Unknown Venipuncture / Unknown 07/17/2025 5:56 AM EST 07/17/2025 6:01 AM EST Stephanie Adamson SCREEN OPERATOR HEMATOLOGY ORDERABLES F inal Result [facility] [address] [place] [address] * PARTIAL THROMBOPLASTIN TIME (07/17/2025 5:56 AM EST) Only the most recent of3 resultswithin the time period is included. PTT 30.3 25.7 - 36.8 second(s) 07/17/2025 6:15 AM [facility] Comment: Therapeutic range for unfractionated heparin: 50.1 [...] 5:56 AM EST 07/17/2025 6:02 AM EST Stephanieestefany Adamson SCREEN OPERATOR HEMATOLOGY ORDERABLES F inal Result [facility] [address] [place] [address] * PT / INR (07/17/2025 5:56 AM EST) Only the most recent of3 resultswithin the time period is included. PT 11.6 10.5 - 13.6 second(s) 07/17/2025 6:15 AM EST [facility] INR 1.01 0.91 - 1.18 (ratio) 07/17/2025 6:15 AM EST [facility] Comment: Level of Therapy Indications Target INR Range Standard Dose Treatment and prophylaxis of venous 2.0 - 3.0 thrombosis, pulmonary embolism High Dose High risk patients with mechanical 2.5 - 3.5 heart valves Blood VENOUS BLOOD / Unknown Venipuncture / Unknown 07/17/2025 5:56 AM EST 07/17/2025 6:02 AM EST Stephanie Adamson SCREEN OPERATOR HEMATOLOGY ORDERABLES F inal Result [facility] [address] [place] [address] * TRIGLYCERIDES (07/17/2025 5:56 AM EST) Only the most recent of4 resultswithin the time period is included. Triglyceride 44 <150 mg/dL 07/17/2025 8:07 AM EST [employer] Comment: < 150 Normal 150 - 199 Borderline High 200 - 499 High >= 500 Very High Blood VENOUS BLOOD / Unknown Venipuncture / Unknown 07/17/2025 5:56 AM EST 07/17/2025 6:01 AM EST Stephanie Adamson SCREEN OPERATOR CHEMISTRY ORDERABLES Fi nal Result Performing Organization Address City/[facility] Co de Phone Number [facility] [facility] [address] [facility] , [address] [place] [phone] * (ABNORMAL) PREALBUMIN (07/17/2025 5:56 AM EST) Only the most recent of4 resultswithin the time period is included. Prealbumin 16.9(L) 20.0 - 40.0 mg/dL 07/17/2025 8:04 AM EST [facility] [employer] Blood VENOUS BLOOD / Unknown Venipuncture / Unknown 07/17/2025 5:56 AM EST 07/17/2025 6:01 AM EST Stephanie Adamson SCREEN OPERATOR CHEMISTRY ORDERABLES Fi nal Result Performing Organization Address [facility] de Phone Number [facility] [place] [address] , [place] [address] * MAGNESIUM LEVEL (07/17/2025 5:56 AM EST) Only the most recent of9 resultswithin the time period is included. Magnesium 2.1 1.6 - 2.4 mg/dL 07/17/2025 6:23 AM EST [facility] Blood VENOUS BLOOD / Unknown Venipuncture / Unknown 07/17/2025 5:56 AM EST 07/17/2025 6:01 AM EST Stephanie Adamson SCREEN OPERATOR CHEMISTRY ORDERABLES Fi nal Result Performing Organization Address City/[facility] Co de Phone Number [facility] [address] [place] [address] * (ABNORMAL) HEPATIC FUNCTION PANEL (07/17/2025 5:56 AM EST) Only the most recent of5 resultswithin the time period is included. Total Protein 6.3(L) 6.4 - 8.3 gm/dL 07/17/2025 6:23 AM EST [facility] Albumin 3.4(L) 3.5 - 5.2 gm/dL 07/17/2025 6:23 AM EST [facility] Bili Direct <0.2 0.0 - 0.3 mg/dL 07/17/2025 6:23 AM EST [facility] Bili Total <0.2(L) 0.2 - 1.3 mg/dL 07/17/2025 6:23 AM EST [facility] AST 17 <=40 U/L 07/17/2025 6:23 AM EST [facility] ALT 12 <=41 U/L 07/17/2025 6:23 AM EST [facility] Alk Phos 90 36 - 123 U/L 07/17/2025 6:23 AM EST [facility] Blood VENOUS BLOOD / Unknown Venipuncture / Unknown 07/17/2025 5:56 AM EST 07/17/2025 6:01 AM EST Stephanie Adamson SCREEN OPERATOR CHEMISTRY ORDERABLES Fi nal Result [facility] [address] [place] [address] * VA US UPPER EXTREMITY VENOUS RIGHT (07/14/2025 12:24 PM EST) Only the most recent of2 resultswithin the time period is included. Anatomical Region Laterality Modality Vascular, Arm Vascular [...] is widely patent andcompressible. Abelino Calderon MD [facility] VASCULAR ORDERABLES Final Result * [facility] LOWER EXTREMITY VENOUS BILATERAL (07/14/2025 12:24 PM [...] superficial thrombosis identified in the bilaterallower extremities. Abelino Calderon MD [facility] VASCULAR ORDERABLES Final Result * [facility] LOWER EXTREMITY VENOUS LEFT (07/10/2025 8:10 AM [...] the contralateral right common femoral vein. Kathy Toscano Juanpablo FUENTES [facility] VASCULAR ORDERABLES Final Result * XR CHEST PA AND LATERAL (07/09/2025 [...] ORDERABLE S Edited Result - Final * EXTRA LAVENDER (07/07/2025 5:52 AM EST) Blood VENOUS BLOOD / Unknown Venipuncture / Unknown 07/07/2025 5:52 AM EST 07/07/2025 6:06 AM EST Zackery Villegas MD HEMATOLOGY ORDERABLES Lamar l Result Performing Organization Address City/[facility] Co de Phone Number [facility] [address] [place], [place] [id number] * BEDSIDE PICC INSERTION (PICC TEAM RN) (07/06/2025 10:18 AM EST) Narrative [facility] - 07/06/2025 10:18 AM EST Neo [...] SURGI MAHENDRA ORDERABLES Edited Result - Final Performing Organization Address City/[facility]/ZIP Co de Phone Number [facility] [address] [place] [address] * EC ECHOCARDIOGRAM COMPLETE W DOPPLER AND [...] 3GC VERIFICATION (07/06/2025 8:36 AM EST) Narrative [facility] - 07/06/2025 8:36 AM EST PICC placement performed at the bedside. The study images are for reference only and will not be interpreted by a radiologist. Placement will be determined by the bedside PICC nurse, utilizing 3CG technology. Karen Campos APRN IMG US ORDERABLES Fin al Result * ESOPHAGOGASTRODUODENOSCOPY (EGD) (07/05/2025 2:34 PM EST) [...] anastomosis Staff Staff Role Caterina Rodas RN Housekeeper/Custodian/Laundry Worker DESTINY Brannon CRNA, MD Anesthesiologist David Rm [...] Out - Proc. Room 07/05 02:34 PM Margaux Easley APRN ENDOSCOPY PROCEDURE ORDER JUAN JOSE Final Result * PATHOLOGY TISSUE REQUEST (07/05/2025 2:31 PM EST) CASE REPORT Surgical Pathology Case: [id number] Authorizing Provider: David Peguero MD Collected: 07/05/2025 1431 Ordering Location: [facility] [address] Received: 07/05/2025 1534 Pathologist: Marilou Stanton MD Specimen: Gastric, Gastric biopsies via forceps 07/06/2025 2:32 PM EST [facility] FINAL DIAGNOSIS A. Gastric biopsies: - Gastric body type mucosa with mild chronic inflammation. - Negative for H. pylori organisms on H&E stained slides. 07/06/2025 2:32 PM EST [facility] at 1432 EST GROSS DESCRIPTION A. Received in formalin and labeled with the patient's name, medical record number, and gastric biopsies are 4 fragments of yost tissue ranging from 0.5 to 0.6 cm in greatest dimension. Entirely submitted in A1. Jameana luisa Lancaster 07/06/2025 07/06/2025 2:32 PM EST [facility] MICROSCOPIC DESCRIPTION The microscopic examination may have been rendered in whole, or in part, by analyzing high-resolutio n digital images (whole slide images) on the [employer] Digital Pathology platform validated at [facility]. 07/06/2025 2:32 PM EST [facility] EMBEDDED IMAGES 07/06/2025 2:32 PM EST [facility] Tissue STOMACH STRUCTURE / Unknown 07/05/2025 2:31 PM EST 07/05/2025 3:34 PM EST us David Rm MD PATHOLOGY ORDERABLES Final Result Performing Organization Address City/[facility]/ZIP Co de Phone Number [facility] [address] [place] [address] * INTRAOP AIRWAY PLACEMENT (07/05/2025 2:24 PM EST) Narrative [facility] - 07/05/2025 2:24 PM EST Margaux Almanza CRNA 07/05/2025 2:24 PM Intraop Airway Placement: Date/Time: 07/05/2025 2:24 PM Airway type: Nasal cannula salter us Bolivar Stephenson MD RI ANESTHESIA Final Result Performing Organization Address [facility]/ZIP Co de Phone Number [facility] [address] [place] [address] * VITAMIN B1 (THIAMINE) WHOLE BLOOD -REF LAB (07/04/2025 9:37 AM EST) Vit B1 WB 132 70 - 180 nmol/L 07/07/2025 1:33 PM EST [employer] Comment: INTERPRETIVE INFORMATION: Vitamin B1, Whole Blood This assay measures the concentration of thiamine diphosphate (TDP), the primary active form of vitamin B1. Approximately 90 percent of vitamin B1 present in whole blood is TDP. Thiamine and thiamine monophosphate, which comprise the remaining 10 percent, are not measured. This test was developed and its performance characteristics determined by [facility]. It has not been cleared or approved by the US Food and Drug Administration. This test was performed in a CLIA certified laboratory and is intended for clinical purposes. Performed By: [facility] [address] [place] [address] Regional Facilities Manager: Sagar Kolb MD, PhD CLIA Number: [id number] Blood VENOUS BLOOD / Unknown Venipuncture / Unknown 07/04/2025 9:37 AM EST 07/04/2025 9:52 AM EST Tamara Karimi PA-C CHEMISTRY ORDERABLES Final R esult [facility] [address] [place] [address] * NICOTINE+METABOLITE, SERUM/PLASMA - REF LAB (07/04/2025 9:36 AM EST) Cotinine, SP 157 ng/mL 07/07/2025 1:10 PM EST [employer] [facility] Nicotine, SP 17 ng/mL 07/07/2025 1:10 PM EST [employer] Comment: INTERPRETIVE INFORMATION: Nicotine and Metabolites, Serum [...] developed and its performance characteristics determined by [facility]. It has not been cleared or approved by the US Food and Drug Administration. This test was performed in a CLIA certified laboratory and is intended for clinical purposes. Performed By: [facility] [address] [place] [address] Regional Facilities Manager: Sagar Kolb MD, PhD CLIA Number: [id number] Blood VENOUS BLOOD / Unknown Venipuncture / Unknown 07/04/2025 9:36 AM EST 07/04/2025 9:54 AM EST Tamara Karimi PA-C CHEMISTRY ORDERABLES Final R esult Performing Organization Address [facility]/ZIP Co de Phone Number [facility] [address] [place] [address] * (ABNORMAL) IRON+TIBC (07/04/2025 9:36 AM EST) Iron 43 30 - 160 mcg/dL 07/04/2025 12:51 PM EST [facility] Transferrin 181(L) 200 - 360 mg/dL 07/04/2025 12:51 PM EST [facility] Transferrin Saturation 17(L) 20 - 50 % 07/04/2025 12:51 PM EST [facility] TIBC 253 250 - 400 mcg/dL 07/04/2025 12:51 PM EST [facility] Blood VENOUS BLOOD / Unknown Venipuncture / Unknown 07/04/2025 9:36 AM EST 07/04/2025 9:53 AM EST Tamara Karimi PA-C CHEMISTRY ORDERABLES Final R esult [facility] [address] [facility] [facility] [address] , [place] [address] * VITAMIN B12/ FOLIC ACID (07/04/2025 9:36 AM EST) Vitamin B12 781 232 - 1,245 pg/mL 07/04/2025 1:08 PM EST [facility] Folate 6.93 >=4.80 ng/mL 07/04/2025 1:08 PM EST [facility] [place] Blood VENOUS BLOOD / Unknown Venipuncture / Unknown 07/04/2025 9:36 AM EST 07/04/2025 9:53 AM EST Narrative [facility] [place] - 07/04/2025 1:08 PM EST Ingestion of tarik doses of biotin (>5 mg/day) taken within 8 hours of drawing blood sample can interfere with this immunoassay test. Tamara Karimi PA-C CHEMISTRY ORDERABLES Final [facility] Performing Organization Address [facility] Phone Number [facility] [place] [employer] [address] [place] [phone] * (ABNORMAL) VITAMIN D 25 HYDROXY (07/04/2025 9:36 AM EST) Vit D 25 OH 27.2(L) 30.0 - 150.0 ng/mL 07/04/2025 1:08 PM EST [facility] [address] Comment: Preferred: >= 30 ng/mL Insufficient: 21-29 [...] ORDERABLES Final R esult Performing Organization Address [facility] Co de Phone Number [facility] [place] [employer] , [place] [address] * (ABNORMAL) CBC WITH DIFF (07/04/2025 5:48 AM EST) [facility] WBC 7.9 3.7 - 10.3 x10(3)/mcL 07/04/2025 6:14 AM EST [facility] RBC 3.56(L) 3.90 - 5.20 x10(6)/mcL 07/04/2025 6:14 AM [facility] Hgb 10.4(L) 11.2 - 15.7 g/dL 07/04/2025 6:14 AM [facility] Hct 31.6(L) 34.0 - 45.0 % 07/04/2025 6:14 AM [facility] MCV 88.8 80.0 - 100.0 fL 07/04/2025 6:14 AM [facility] MCH 29.2 26.0 - 34.0 pg 07/04/2025 6:14 AM [facility] MCHC 32.9 30.7 - 35.5 g/dL 07/04/2025 6:14 AM [facility] RDW 13.2 <=14.9 % 07/04/2025 6:14 AM [facility] Platelet 283 155 - 369 x10(3)/mcL 07/04/2025 6:14 AM [facility] MPV 9.2 8.8 - 12.5 fL 07/04/2025 6:14 AM [facility] Neut Percent 41.4 % 07/04/2025 6:14 AM [facility] Comment:Neutrophils equals s egs plus bands Imm Gran% 0.4 % 07/04/2025 6:14 AM [facility] Comment:Automated count of m etamyelocytes, myelocytes and promyelocytes. Lymph Percent 40.4 % 07/04/2025 6:14 AM [facility] Percent 9.8 % 07/04/2025 6:14 AM [facility] Eos Percent 7.1 % 07/04/2025 6:14 AM [facility] Baso Percent 0.9 % 07/04/2025 6:14 AM [facility] Neut # 3.3 1.6 - 6.1 x10(3)/[facility] 07/04/2025 6:14 AM EST [facility] Comment:Neutrophils equals s egs plus bands IMMGRAN# 0.0 0.0 - 0.1 x10(3)/[facility] 07/04/2025 6:14 AM EST [facility] Comment:Automated count of m etamyelocytes, myelocytes and promyelocytes. An absolute IG <0.1 is reported as 0.0. Lymph # 3.2 1.2 - 3.9 x10(3)/[facility] 07/04/2025 6:14 AM EST [facility] # 0.8 0.3 - 0.9 x10(3)/[facility] 07/04/2025 6:14 AM EST [facility] Eos# 0.6(H) 0.0 - 0.5 x10(3)/[facility] 07/04/2025 6:14 AM EST [facility] Baso # 0.1 0.0 - 0.1 x10(3)/[facility] 07/04/2025 6:14 AM EST [facility] Blood VENOUS BLOOD / Unknown Venipuncture / Unknown 07/04/2025 5:48 AM EST 07/04/2025 6:10 AM EST Kathy Geronimo SCREEN OPERATOR HEMATOLOGY ORDERABLES F inal Result [facility] [address] [place], [place] [id number] from Last 3 Months Insurance [facility] [address] [facility] , [address] [facility] [facility] [employer] [place] [address] [facility] Advance Directives For more information, please contact: [phone] * Full Code (Latest Code Status on File) Date Activated Date Inactivated Comments 07/04/2025 10:29 AM 07/19/2025 7:48 PM
--- OUTSIDE RECORDS SUMMARY | 2025-08-07 15:17 | XMS_ITS | Clinical Summary ---
Author Organization [employer] ([place], [place], [place], [place], [place]) Address [address] [place] [address] Care Team Providers Care Deckhand Clam Dredge Name Role Phone Luciano Falk MD Primary Care Provider + [phone] Allergies No known active allergies Social History [...] Date Reese rded Speak language other than Georgian at home Not on file 09/04/2023 Want [...] age to complete [place] [id number] [facility] Kuaidi Dache Care Teams Deckhand Clam Dredge Relationship Specialty Start Date End Date Luciano Falk MD [address] [place] [address] PCP - General Adolescent Medicine 05/09/23
--- OUTSIDE RECORDS SUMMARY | 2025-08-07 15:17 | XMS_ITS | Referral Summary ---
Author Organization [employer] ([place], [place], [place], [place], [place]) Address [address] [place] [address] Care Team Providers Care Intellectual Property Legal Assistant Name Role Phone Luciano Falk MD Primary Care Provider + [phone] Allergies No known active allergies Social History [...] Date Reese rded Speak language other than Senegalese at home Not on file 09/04/2023 Want [...] of Treatment Not on file Insurance [employer] [facility] [place] Care Teams Intellectual Property Legal Assistant Relationship Specialty Start Date End Date Luciano Falk MD [address] [place] [address] PCP - General Adolescent Medicine 05/09/23
--- OUTSIDE RECORDS SUMMARY | 2025-08-07 15:17 | XMS_ITS | Clinical Summary ---
Author Organization [facility] Address [address] [place] [address] Care Team Providers Care Nurse Practitioner Hospitalist Name Role Phone Luciano Falk MD Primary Care Provider + [phone] Allergies Active Allergy Reactions Criticality Noted Date [...] times a day. Active opioid or non-baclofenIn dications:Boarder Steam maritza Back pain 1 each by Intrathecal [...] How often do you attend chur or faith services? Never 04/21/2023 Do you belong to any clubs o r organizations such as episcopalian groups, unions, fraternal or athletic groups, or [...] Recorded Patient Health Questionnaire-2 Score 4 04/21/2023 [facility] of Occupat ional Health - Occupational Stress [...] place to sleep or slept in a care home (including now)? No 11/13/2023 CAGE ASSESSMENT Answer [...] drink first t charity in the morning (EYE-MANAGER OF CONSTRUCTION) to steady your nerves or to get rid of a hangover? 0 04/22/2023 CAGE Questionnaire Score 0 023 Utilities Answer Date Recorded In the past 12 months has th e [employer], gas, oil, or water company threatened to [...] 11/23/2020, 10/18/2020, 06/06/2015 [facility]-Depression Screening 04/21/2024 04/21/2023 [id number] Vaccine (4 - season) 2025 06/11/2023, 01/26/2021, [...] Reactive Non Reactive 04/20/2023 11:54 PM EDT [facility] Comment:Screening for HIV 1 & 2 antibodies, and P24 antigen is NONREACTIVE. No confirmatory testing is required. Blood Venous blood specimen / Unknown Venipuncture / Unknown 04/20/2023 11:18 PM EDT 04/20/2023 11:20 PM EDT Kate B Idris UTILITY LOCATE TECHNICIAN LAB BLOOD ORDERABLES Lamar l Result [facility] [address] [place] [address] * Hepatitis C Antibody - ED (04/20/2023 11:18 PM EDT) Hepatitis C Antibody Negative Negative 04/20/2023 11:49 PM EDT [facility] Blood Venous blood specimen / Unknown Venipuncture / Unknown 04/20/2023 11:18 PM EDT 04/20/2023 11:20 PM EDT Kate Grace Idris UTILITY LOCATE TECHNICIAN LAB BLOOD ORDERABLES Lamar l Result Performing Organization Address City/[facility]/ZIP Co de Phone Number [facility] [address] [place] [address] from Last 3 Months or Most Recently Relevant to Health Maintenance Insurance [facility] Advance Directives Documents on File Type Date Recorded Patient Canal Structure Operator Expl madhav Advance Directives and Lesvia g Will 11/16/2023 8:16 AM * Full Code (Latest Code Status on File) Date Activated Date Inactivated Comments 11/13/2023 6:14 AM 11/15/2023 3:09 AM Question Answer Comments Patient has decision-making capacity? Yes * Full Code Date Activated Date Inactivated Comments 04/21/2023 12:10 AM 04/24/2023 4:04 PM Question Answer Comments Patient has decision-making capacity? Yes Care Teams Nurse Practitioner Hospitalist Relationship Specialty Start Date End Date Luciano Falk MD [address] [place] [address] PCP - General Internal Medicine 04/20/23
[2025-08-07 15:26] VITALS: BMI 20.7
--- NOTE | 2025-08-07 15:30 | PC.NURSE ---
beronica labs ordered by from open port on double lumen picc. wasted 16ml blood and attached vacutainer for lab tubes. flushed picc with 10ml saline and changed blue end cap. pt tolerated well.
[2025-08-07 15:34] LABS: Hematocrit 35.0 % (37.0-47.0); Hemoglobin 11.7 g/dL (12.2-16.2); Immature Granulocytes % 0.4 %; Mean Corpuscular HGB Conc 33.4 g/dL (31.8-35.4); Mean Corpuscular Hemoglobin 29.4 pg (27.0-31.2); Mean Corpuscular Volume 87.9 fl (81-99); Nucleated Red Blood Cells % 0 %; Platelet Count 261 K/mm3 (142-424); Red Blood Count 3.98 M/mm3 (4.20-5.40); Red Cell Distribution Width-SD 46.7 fL; White Blood Count 8.5 K/mm3 (4.8-10.8)
[2025-08-07 15:52] LABS: Albumin Level 3.8 g/dl (3.5-5.0); Chloride 90 mmol/L (98-107); Sodium 120 mmol/L (136-145)
[2025-08-07 15:55] LABS: Alanine Aminotransferase 13 U/L (12-78); Albumin/Globulin Ratio 1.7 (1.1-1.8); Anion Gap 15.3 mEq/L (5-15); Aspartate Amino Transferase 33 U/L (14-36); Blood Urea Nitrogen 21 mg/dl (7-17); Carbon Dioxide 21 mmol/L (22.0-30.0); Creatinine Clearance Estimated 82 mL/min (50-200); Creatinine,Serum 0.90 mg/dl (0.52-1.04); Estimated Glomerular Filt Rate 69 ml/min (>60); GFR (African American) 83 ML/MIN (>60); Globulin 2.2 g/dL (1.3-3.2); Total Protein,Serum 6.0 g/dl (6.3-8.2)
[2025-08-07 15:56] LABS: Alkaline Phosphatase 44 U/L (38-126); Bilirubin,Total 0.2 mg/dl (0.2-1.3); Calcium 8.6 mg/dl (8.4-10.2); Cholesterol 110 mg/dl (140-200); HDL Cholesterol 55 mg/dl (40-60)
[2025-08-07 16:17] LABS: Potassium 6.3 mmoL/L (3.5-5.1)
[2025-08-07 16:18] LABS: Glucose 1296 mg/dl (74-100); Triglycerides 875 mg/dl (30-150)
[2025-08-07 16:46] LABS: Albumin Level 4.5 g/dl (3.5-5.0); Chloride 100 mmol/L (98-107)
[2025-08-07 16:47] LABS: Potassium 4.7 mmoL/L (3.5-5.1); Sodium 139 mmol/L (136-145)
[2025-08-07 16:49] LABS: Alanine Aminotransferase 17 U/L (12-78); Albumin/Globulin Ratio 1.3 (1.1-1.8); Alkaline Phosphatase 83 U/L (38-126); Anion Gap 12.7 mEq/L (5-15); Aspartate Amino Transferase 30 U/L (14-36); Blood Urea Nitrogen 24 mg/dl (7-17); Carbon Dioxide 31 mmol/L (22.0-30.0); Cholesterol 143 mg/dl (140-200); Creatinine Clearance Estimated 82 mL/min (50-200); Creatinine,Serum 0.90 mg/dl (0.52-1.04); Estimated Glomerular Filt Rate 69 ml/min (>60); GFR (African American) 83 ML/MIN (>60); Globulin 3.6 g/dL (1.3-3.2); Total Protein,Serum 8.1 g/dl (6.3-8.2); Triglycerides 65 mg/dl (30-150)
[2025-08-07 16:50] LABS: Bilirubin,Total 0.1 mg/dl (0.2-1.3); Calcium 9.5 mg/dl (8.4-10.2); Glucose 108 mg/dl (74-100); HDL Cholesterol 70 mg/dl (40-60)
== END 2025-08-07 23:59 | disposition home or self-care (01) ==
LOC: INF 15:13
PROVIDERS: PCP Nurse Practitioner Family; Visit Provider Nurse Practitioner Family
DX: Z78.9 Other specified health status (principal)
CPT/HCPCS: 36415; 80053; 80061; 85025

== ENCOUNTER 2025-08-14 15:20 | Outpatient (CLI) | payer MEDICAID, OTHER, SELFPAY ==
--- OUTSIDE RECORDS SUMMARY | 2025-07-03 22:21 | XMS_ITS | Encounter Summary ---
Author Organization [place] [address] Care Team Providers Care Floor Scrubber Name Role Phone Unavailable Primary Care Provider Unavailabl e Reason for Referral * Smoking Cessation (Routine) - Pending Review Specialty Diagnoses / Procedures Referred By Vish xiong Referred To Contact Diagnoses Nicotine dependence, unspecified, uncomplicated Zackery Villegas MD [address] [place] [address] Phone: tel: fax: Referral ID Status Reason Start Date Expiration Date V isits Requested Visits Authorized [id number] Pending Review 07/04/2025 07/04/2026 1 1 Reason for Visit * Auth/Cert/Inpt Specialty Diagnoses / Procedures Referred By Vish xiong Referred To Contact Diagnoses Abdominal pain Anorexia abd pain anorexia Referral ID Status Reason Start Date Expiration Date Visits Re quested Visits Authorized [id number] 1 1 Encounter Details Date Type Department Care Team (Latest Contact Info) Description 07/03/2025 10:21 PM EST - 07/19/2025 3:29 PM EST Hospital Encounter [facility] [address] [place] [address] Bradford Sauceda MD [address] [place] [address] Zackery Villegas MD [address] [place] [address] Pain of upper abdomen (Primary Dx) Discharge Disposition: Home or Self Care Social History Tobacco Use Types Packs/Day Years Used Date Smoking Tobacco: Some Days Cigarettes Smokeless Tobacco: Former Tobacco Cessation:Ready to Q uit: Yes; Counseling Given: Not Answered Alcohol Use Standard Drinks/Week Comments Not Currently 0 (1 standard drink = 0.6 oz pur e alcohol) PHQ-2 Answer Date Recorded PHQ-2 Total Score 2 07/04/2025 Overall Financial Resource Strain (CARDIA) Answe r Date Recorded How hard is it for you to pa y for the very basics like food, housing, medical care, and heating? Not very hard 07/04/2025 [facility] - Occupational Stress Questionnaire Answer Date Recorded Do you feel stress - tense, restless, nervous, or anxious, or unable to sleep at night because your mind is troubled all the time - these days? Only a little 07/04/2025 Exercise Vital Sign Answer Date Recorde d On average, how many days pe r week do you engage in moderate to strenuous exercise (like a brisk walk)? 0 days 07/04/2025 On average, how many minutes do you engage in exercise at this level? 0 min 07/04/2025 Hunger Vital Sign Answer Date Recorded Within the past 12 months, y ou worried that your food would run out before you got the money to buy more. Often true 07/04/20 25 Within the past 12 months, t he food you bought just didn't last and you didn't have money to get more. Often true 07/04/2025 [facility] Utilities Answer Date Recorded In the past 12 months has th e electric, gas, oil, or water company threatened to shut off services in your home? No 07/04/2025 [facility] IP Transportation Answer D ate Recorded In the past 12 months, has l ack of reliable transportation kept you from medical appointments, meetings, work or from getting things needed for daily living? No 07/04/2025 Comments No Sex and Gender Information Value Date Recorded Sex Assigned at Not on file Legal Sex Female 3:33 PM EDT Gender Identity Not on file Sexual Orientation Not on file documented as of this encounter Last Filed Vital Signs Vital Sign Reading Time Taken Comments Blood Pressure 119/70 07/19/2025 9:00 AM EST Pulse 84 07/19/2025 9:00 AM EST Temperature 36.8 C (98.2 F) 07/19/2025 9:00 AM EST Respiratory Rate 16 07/19/2025 9:00 AM EST Oxygen Saturation 100% 07/19/2025 9:00 AM EST Inhaled Oxygen Concentration - - Weight 63.5 kg (140 lb) 07/17/2025 7:00 AM EST Height 175.3 cm (5' 9 ) 07/03/2025 11:18 PM EST Body Mass Index 20.67 07/03/2025 11:18 PM EST documented in this encounter Functional Status * Question Answer Date of Assessment Author Is the person deaf or does h e/she have serious difficulty hearing? No 07/19/2025 1:07 PM EST Soham Fajardo RN Is the person blind or does he/she have serious difficulty seeing even when wearing glasses? No 07/19/2025 1:07 PM Soham Deras RN Does this person have seriou s difficulty walking or climbing stairs? No 07/19/2025 1:07 PM Soham Deras RN Does this person have diffic ulty dressing or bathing? No 07/19/2025 1:07 PM Soham Deras RN * Is the person deaf or does he/she have serious difficulty hearing? Answer Date of Assessment Author No 07/19/2025 1:07 PM Meaghan Deras RN * Is the person blind or does he/she have serious difficulty seeing even when wearing glasses? Answer Date of Assessment Author No 07/19/2025 1:07 PM Meaghan Deras RN * Does this person have serious difficulty walking or climbing stairs? Answer Date of Assessment Author No 07/19/2025 1:07 PM Meaghan Deras RN * Does this person have difficulty dressing or bathing? Answer Date of Assessment Author No 07/19/2025 1:07 PM Meaghan Deras RN * Because of a physical, mental or emotional condition, does this person have difficulty doing errands alone such as visiting a doctor's office or shopping? Answer Date of Assessment Author No 07/19/2025 1:07 PM Meaghan Deras RN * Question Answer Date of Assessment Author Little interest or pleasure in doing things 1 07/04/2025 2:43 PM EST Katelyn Mc RN Feeling down, depressed, or hopeless 1 07/04/2025 2:43 PM Katelyn Gipson RN PHQ-2 Total Score 2 07/04/2025 2:43 PM Katelyn Gipson RN * PHQ-9 Total Score Answer Date of Assessment Author 2 07/04/2025 2:43 PM Katelyn Gipson RN * PHQ-2 Total Score Answer Date of Assessment Author 2 07/04/2025 2:43 PM Katelyn Gipson RN documented as of this encounter Mental Status * Question Answer Entry Date Author Because of a physical, menta l or emotional condition, does this person have difficulty doing errands alone such as visiting a doctor's office or shopping? No 07/19/2025 1:07 PM Kamla Deras RN Because of a physical, menta l or emotional condition, does this person have serious difficulty concentrating, remembering or making decisions? No 07/19/2025 1:07 PM Soham Deras RN * Because of a physical, mental or emotional condition, does this person have serious difficulty concentrating, remembering or making decisions? Answer Entry Date Author No 07/19/2025 1:07 PM Meaghan Deras RN documented in this encounter Discharge Summaries * Jayden Ragsdale MD - 07/19/2025 10:48 AM EST [facility] Discharge Summary Patient Name: Alexei Macias : 1985 Admit Date: 07/03/2025 Discharge Date: 07/19/2025 Admitting Physician: Zackery Villegas MD Discharging Physician: Jayden Ragsdale MD Reason for Hospitalization: Active Hospital Problems Anorexia nervosa (HCC) Anxiety disorder due to general medical condition Superficial thrombophlebitis of right upper extremity Left leg pain Acute reaction to situational stress Vitamin D insufficiency Borderline personality disorder (HCC) Underweight Moderate protein-calorie malnutrition Dental infection Persistent recurrent vomiting *Generalized abdominal pain History of endometrial cancer History of gastric bypass History of pulmonary embolism Cannabis dependence (HCC) Other chest pain Cardiac murmur History of chronic CHF Abdominal pain Suicidal ideations Paroxysmal atrial fibrillation (HCC) Chronic idiopathic constipation Chronic nausea Anorexia Estevan-Danlos disease Generalized anxiety disorder GERD (gastroesophageal reflux disease) History of DVT (deep vein thrombosis) HTN (hypertension) Iron deficiency anemia Peptic ulcer disease Acute exacerbation of chronic abdominal pain Chronic pain Insomnia due to mental disorder Major depressive disorder, recurrent, moderate (HCC) Nicotine dependence Chronic low back pain Adjustment disorder with mixed anxiety and depressed mood Brief Hospital Summary: Alexei Macias is a 40 y.o. female admitted for generalized abdominal pain. GI and surgery consulted. 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 This is most likely the site of the gastro-jejunostomy . Patient recommended to remain on Protonix BID therapy. Stricture also raised concern for patient being able to tolerate more than a liquid diet. Surgery recommended patient remain on TPN for nutritional support. She is planned to follow up with surgery as outpatient. She was instructed to avoid tobacco and nicotine use asoutpatient. Patient also reported suicidal ideation during admission. She was evaluated and clearedby psychiatry. She was recommended to follow up with psychiatry as outpatient. She also completed course of Augmentin for dental infection. Patient given short supply of pain medication at discharge.She was instructed to discuss this with her pain management provider. Patient discharged home to follow up with surgery and primary care. Consultants: IP CONSULT TO GENERAL SURGERY IP CONSULT TO NUTRITION IP CONSULT TO GI IP CONSULT TO PSYCHIATRY IP CONSULT TO CARDIOLOGY IP CONSULT TO PHARMACY IP CONSULT TO NUTRITION DME ORDERS IP CONSULT TO PSYCHIATRY IP CONSULT TO PSYCHIATRY DME ORDERS HOME HEALTH ORDERS (FACE TO FACE ENCOUNTER) Discharge Exam: General: No acute distress. Lungs: Clear to auscultation bilaterally. Normal effort. Cardiac: Regular rate and rhythm. Abdomen: Soft. No tenderness. No distention. Normal bowel sounds. Extremities: No edema BLE Skin: Warm, dry. Neurologic: Alert. No gross focal deficits. Correct Full Discharge Med List: Medication List START taking these medications cholecalciferol (vitamin D3) 25 mcg (1,000 unit) Tab Dose: 1,000 Units Qty: 30 Tablet Refills: 0 Start: July 20, 2025 1,000 Units, Oral, DAILY fat emulsion 20 % Emul Dose: 250 mL Refills: 0 250 mL, Intravenous, DAILY 6PM nalOXone 4 mg/actuation [place] Dose: 4 mg Qty: 1 Each Refills: 0 Commonly known as: NARCAN 4 mg, Nasal, PRN, [place] the contents of one device (0.1mL) into one nostril upon signs of opioid overdose. Call 911. May repeat dose in other nostril if no response within 2-3 minutes. oxyCODONE 5 mg Tab Dose: 5-10 mg Qty: 24 Tablet Refills: 0 Commonly known as: ROXICODONE 5-10 mg, Oral, EVERY 6 HOURS PRN pantoprazole 40 mg Tbec Dose: 40 mg Qty: 120 Tablet Refills: 0 Commonly known as: PROTONIX 40 mg, Oral, 2 TIMES DAILY CONTINUE taking these medications hydrOXYzine 50 mg Cap Dose: 50 mg Refills: 0 Commonly known as: VISTARIL LORazepam 1 mg Tab Dose: 1 mg Refills: 0 Commonly known as: ATIVAN pregabalin 150 mg Cap Dose: 200 mg Refills: 0 Commonly known as: LYRICA QUEtiapine 100 mg Tab Dose: 100 mg Refills: 0 Commonly known as: SEROquel STOP taking these medications amoxicillin-clavulanate 500-125 mg Tab Commonly known as: AUGMENTIN estradioL 0.01 % (0.1 mg/gram) Crea Commonly known as: ESTRACE Where to Get Your Medications These medications were sent to [facility] [place] [address] - [address] [place] [address] [place] [address] - [phone] [place] [id number] oxyCODONE 5 mg Tab These medications were sent to [facility] [address], [facility] [address] Hours: Thursday-Thursday 9:00am - 5:00pm cholecalciferol (vitamin D3) 25 mcg (1,000 unit) Tab nalOXone 4 mg/actuation [place] pantoprazole 40 mg Tbec Information about where to get these medications is not yet available Ask your nurse or doctor about these medications fat emulsion 20 % Emul Condition at Discharge: good Disposition: Home Follow-up: [place] [phone] ([id number]) Follow up call for assistance wiht eating disorder Bright Cornelius MD [address] [facility] [place] [address] Follow up 1-2 weeks. Surgery follow up [facility] Follow up Rupa Hicks, PCP Follow up in 3 day(s) Follow up with primary care Primary GI Follow up Follow up with primary GI in [address] Jung Follow up Follow up with pain management Time spent on discharge: 30 to 74 minutes Jayden Ragsdale MD documented in this encounter Discharge Instructions * Discharge Instr - Diet* Maureen Mcleod RD,KAYLA - 07/06/2025 9:48 AM EST Home TPN (total parenteral nutrition) and oral diet as tolerated. Recommend continue strawberry Glucerna and protein poweder of choice as tolerated * Attachments The following attachments cannot be sent through Care Everywhere. * How to care for a peripherally inserted central catheter (PICC) (Burundian) * Parenteral nutrition (Burundian) documented in this encounter Medications at Time of Discharge cholecalciferol, vitamin D3, 25 mcg (1,000 unit) Oral Tablet Take 1 Tablet by mouth daily for 30 days. 30 Tablet 07/19/2025 1:08 PM EST 07/20/2025 08/19/2025 fat emulsion 20 % IV Emulsion Inject 250 mL into the vein daily at 6pm. 07/19/2025 hydrOXYzine (VISTARIL) 50 mg Oral Capsule Take 50 mg by mouth 4 times daily as needed for Other (anxiety). LORazepam (ATIVAN) 1 mg Oral Tablet Take 1 mg by mouth 2 times daily as needed for Anxiety or Restlessness. nalOXone (NARCAN) 4 mg/actuation Nasl [place], Non-Aerosol [place] the contents of one device (0.1mL) into one nostril upon signs of opioid overdose. Call 911. May repeat dose in other nostril if no response within 2-3 minutes. 2 Each 07/19/2025 1:08 PM EST 07/19/2025 oxyCODONE (ROXICODONE) 5 mg Oral Tablet Take 1-2 Tablets by mouth every 6 hours as needed for Acute Pain (R52). 24 Tablet 07/19/2025 pantoprazole (PROTONIX) 40 mg Oral Tablet, Delayed Release (E.C.) Take 1 Tablet by mouth 2 times daily for 60 days. 120 Tablet 07/19/2025 09/17/2025 pregabalin (LYRICA) 150 mg Oral Capsule Take 200 mg by mouth 2 times daily. QUEtiapine (SEROQUEL) 100 mg Oral Tablet Take 100 mg by mouth nightly. documented as of this encounter Ordered Prescriptions Prescription Sig Dispense Quantity Refills Last Filled Start Date End Date nalOXone (NARCAN) 4 mg/actuation Nasl [place], Non-Aerosol [place] the contents of one device (0.1mL) into one nostril upon signs of opioid overdose. Call 911. May repeat dose in other nostril if no response within 2-3 minutes. 2 Each 07/19/2025 1:08 PM EST 07/19/2025 oxyCODONE (ROXICODONE) 5 mg Oral Tablet Take 1-2 Tablets by mouth every 6 hours as needed for Acute Pain (R52). 24 Tablet 07/19/2025 pantoprazole (PROTONIX) 40 mg Oral Tablet, Delayed Release (E.C.) Take 1 Tablet by mouth 2 times daily for 60 days. 120 Tablet 07/19/2025 fat emulsion 20 % IV Emulsion Inject 250 mL into the vein daily at 6pm. 07/19/2025 cholecalciferol, vitamin D3, 25 mcg (1,000 unit) Oral Tablet Take 1 Tablet by mouth daily for 30 days. 30 Tablet 07/19/2025 1:08 PM EST 07/20/2025 6 documented in this encounter Discharge Disposition Disposition Code Departure Means Destination Comment s Home or Self Care Car Home documented in this encounter Progress Notes * Alicia Rhodes RN - 07/19/2025 2:37 PM EST I went over discharge instructions with pt. Pt was given a copy. PICC in place at [place]. [employer] sales representative in the room to discuss teaching of TPN with pt. Pt was advised to call and make her follow-up appointments. Pt verbalized understanding. Pt's mom will be transporting her home. Pt had no further questions for me. 1550: Pt was transported off the unit via wheelchair. * Mia Shell CPhT - 07/19/2025 1:17 PM EST Discharge Medication Delivery Service [employer] injection mold technician has delivered the following medications for Alexei Macias: Rx#[id number]:CHOLECALCIFEROL (VITAMIN D3) 25 MCG (1,000 UNIT) TABLET-1000 Units DAILY Rx#[id number]:NALOXONE 4 MG/ACTUATION NASAL SPRAY-4 mg PRN Date/Time of Delivery: 07/19/2025 1:17 PM Delivered to: patient while bedside; no questions for pharmacy Please contact [employer] injection mold technician with any questions. Thanks! Mia Shell CPhT * Dinorah Hawk RN - 07/19/2025 11:58 AM EST 07/19/25 1153 Ongoing Discharge Planning Evaluation Completed by CC/SW Yes Discharge to Home with Family;Other(Comment) (home TPN for 2 months. No home health available.) Actual Discharge Plan 07/19/25 CC final note. Patient alert and oriented x3. Patient returning home in [place]. Mother will be providing transportation. [facility] is sending TPN to patient's room andthey will come and do steel fabricating supervisor and teaching once it is here. Informed patient TPN being shipped hereto patient's room. [facility] has been in contact with Rupa Hicks NP at [facility] who will be following the patient while on TPN. Ms. Hicks will monitor labs, dressing changes and PICC line care. [facility] will be making an appointment for patient to go to [facility] for patient's care. No further needs. Final Note Referral to SEP Care Management (SEP patients only) No Discharge Round Completed Yes Care Coordination Discharge Ready? Yes Post Acute Provider [facility] DME Arranged at Discharge None Transportation at Discharge Personal vehicle Date Expected 07/19/25 Confirmed Discharge Transportation Plan? Yes Patient Aware and Agrees with DC Plan Yes MD Aware of Plan Yes RN Notified of Plan Yes * Kelli Woods MSW - 07/18/2025 3:51 PM EST 07/18/2025 CAKE ICER/ SHYANNE GARCIA- RADHA checked in and followed up with patient regarding JACY consult for cannabis and tobacco. Patient reports feeling anxious about going home. SW provided active listening and support to patient. SW engaged patient in utilizing relaxation techniques such as guided imagery to try and decrease anxiety. Patient reports feeling calm; however, denies feeling less anxious. NO SUDquestions or needs identified at this time. TEN * Katelyn Mc RN - 07/18/2025 3:25 PM EST 07/18/25 1520 Ongoing Discharge Planning Evaluation Actual Discharge Plan 07/18/25 RADHA UPDATE: [facility] is following for TPN and is working on finding a doctor closer to where she lives- tpn order faxed to [facility]. unable to accept pt. [facility] has accepted pt- faxed tpn order to [phone] attn Rupa Hicks NP or Lori.Phone # to [facility] [phone]. Rupa Hicks has accepted pt and will follow her tpn infusion after d/c. maria to educate pt tomorrow 07/19/25 on tpn infusion. Awaiting PICC line orders for labs and dressing changes. Pt transportation TBD day of DC. SW will continue to follow along. * Jose Gray MD - 07/18/2025 3:17 PM ESTAssociated Problem(s): Adjustment disorder with mixed anxiety and depressed mood - Continue Seroquel 25mg qAM, 100mg qhs - Continue hydroxyzine 25-50mg QID PRN for mild-moderate anxiety - Continue Ativan 1mg BID PRN for severe anxiety (can be prescribed at discharge since she was consistently prescribed it per dispense report) In addition to medication management, I performed psychodynamic psychotherapy with goal of improve pertinent symptoms. Total time: 30 minutes Start time: 9:44am Finish time: 10am Status: improving Anticipated timeline to achieve treatment goals: 1-6 months * Jose Gray MD - 07/18/2025 3:17 PM ESTAssociated Problem(s): Generalized anxiety disorder - Continue Seroquel 25mg qAM, 100mg qhs - Continue hydroxyzine 25-50mg QID PRN for mild-moderate anxiety - Continue Ativan 1mg BID PRN for severe anxiety (can be prescribed at discharge since she was consistently prescribed it per dispense report) In addition to medication management, I performed psychodynamic psychotherapy with goal of improve pertinent symptoms. Total time: 30 minutes Start time: 9:44am Finish time: 10am Status: improving Anticipated timeline to achieve treatment goals: 1-6 months * Jose Gray MD - 07/18/2025 3:17 PM ESTAssociated Problem(s): Major depressive disorder, recurrent, moderate (HCC) - Continue Seroquel 25mg qAM, 100mg qhs - Continue hydroxyzine 25-50mg QID PRN for mild-moderate anxiety - Continue Ativan 1mg BID PRN for severe anxiety (can be prescribed at discharge since she was consistently prescribed it per dispense report) In addition to medication management, I performed psychodynamic psychotherapy with goal of improve pertinent symptoms. Total time: 30 minutes Start time: 9:44am Finish time: 10am Status: improving Anticipated timeline to achieve treatment goals: 1-6 months * Jose Gray MD - 07/18/2025 3:17 PM ESTAssociated Problem(s): Nicotine dependence - Continue Seroquel 25mg qAM, 100mg qhs - Continue hydroxyzine 25-50mg QID PRN for mild-moderate anxiety - Continue Ativan 1mg BID PRN for severe anxiety (can be prescribed at discharge since she was consistently prescribed it per dispense report) In addition to medication management, I performed psychodynamic psychotherapy with goal of improve pertinent symptoms. Total time: 30 minutes Start time: 9:44am Finish time: 10am Status: improving Anticipated timeline to achieve treatment goals: 1-6 months * Jose Gray MD - 07/18/2025 3:17 PM ESTAssociated Problem(s): Borderline personality disorder (HCC) - Continue Seroquel 25mg qAM, 100mg qhs - Continue hydroxyzine 25-50mg QID PRN for mild-moderate anxiety - Continue Ativan 1mg BID PRN for severe anxiety (can be prescribed at discharge since she was consistently prescribed it per dispense report) In addition to medication management, I performed psychodynamic psychotherapy with goal of improve pertinent symptoms. Total time: 30 minutes Start time: 9:44am Finish time: 10am Status: improving Anticipated timeline to achieve treatment goals: 1-6 months * Jose Gray MD - 07/18/2025 3:17 PM ESTAssociated Problem(s): Anorexia nervosa (HCC) - Continue Seroquel 25mg qAM, 100mg qhs - Continue hydroxyzine 25-50mg QID PRN for mild-moderate anxiety - Continue Ativan 1mg BID PRN for severe anxiety (can be prescribed at discharge since she was consistently prescribed it per dispense report) In addition to medication management, I performed psychodynamic psychotherapy with goal of improve pertinent symptoms. Total time: 30 minutes Start time: 9:44am Finish time: 10am Status: improving Anticipated timeline to achieve treatment goals: 1-6 months * Jose Gray MD - 07/18/2025 3:17 PM ESTAssociated Problem(s): Cannabis dependence (HCC) - Continue Seroquel 25mg qAM, 100mg qhs - Continue hydroxyzine 25-50mg QID PRN for mild-moderate anxiety - Continue Ativan 1mg BID PRN for severe anxiety (can be prescribed at discharge since she was consistently prescribed it per dispense report) In addition to medication management, I performed psychodynamic psychotherapy with goal of improve pertinent symptoms. Total time: 30 minutes Start time: 9:44am Finish time: 10am Status: improving Anticipated timeline to achieve treatment goals: 1-6 months * Jayden Ragsdale MD - 07/18/2025 1:21 PM EST [facility] MEDICINE PROGRESS NOTE ASSESSMENT & PLAN: Generalized abdominal pain, Hx of gastric bypass, PUD, GERD, anorexia - Surgery, bariatrics consulted - S/P EGD 07/06 - PPI BID - TPN - Per chart, patient planned to continue on TPN at discharge. 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 Possibly tomorrow Active Hospital Problems Diagnosis *Generalized abdominal pain Anorexia nervosa (HCC) Anxiety disorder due to general medical condition Superficial thrombophlebitis of right upper extremity Left leg pain Acute reaction to situational stress Vitamin D insufficiency Borderline personality disorder (HCC) Underweight Moderate protein-calorie malnutrition Dental infection Persistent recurrent vomiting History of endometrial cancer History of gastric bypass History of pulmonary embolism Cannabis dependence (HCC) Other chest pain Cardiac murmur History of chronic CHF Abdominal pain Suicidal ideations Paroxysmal atrial fibrillation (HCC) Chronic idiopathic constipation Chronic nausea Anorexia Estevan-Danlos disease Generalized anxiety disorder GERD (gastroesophageal reflux disease) History of DVT (deep vein thrombosis) HTN (hypertension) Iron deficiency anemia Peptic ulcer disease Acute exacerbation of chronic abdominal pain Chronic pain Insomnia due to mental disorder Major depressive disorder, recurrent, moderate (HCC) Nicotine dependence Chronic low back pain Adjustment disorder with mixed anxiety and depressed mood SUBJECTIVE: Alexei Macias is a 40 y.o. female being followed for Generalized abdominal pain. Seen and examined today. Patient reports wanting to use nicotine patch. Discussed recommendations from surgery team. ROS: No fever. OBJECTIVE: Vitals reviewed General: NAD Lungs: CTAB. Normal effort Cardiac: RRR Abdomen: Soft. No TTP. ND. NBS Skin: Warm, dry Neurologic: Alert. Ox3 Labs: Laboratory data and diagnostic testing reviewed from 07/18/25. Jayden Ragsdale MD * Graham Mello, [facility] - 07/18/2025 12:08 PM EST S: Alexei Macias is a(n) 40 y.o. female with abdominal pain and recurrent vomiting with history of gastric bypass surgery (2020), cannabis use, and PUD. EGD findings on 07/05 with stricture at the GJ anastomosis. Pharmacy managing TPN electrolytes. Patient is expected to be discharged on TPN. O: Most Recent Labs: Recent Labs 07/17/25555 WBC 5.1 HGB 11.0* HCT 33.3* PLT 196 Recent Labs 07/15/25 0639 07/16/2552407/17/25 05 NA 141 141 140 K 4.6 4.6 4.6 CL 106 106 103 CO2 32* 32* 32* CALCIUM 8.8 8.5* 8.9 CAIONIZED -- -- 1.18 BUN 16 19 21* CREATININE 0.66 0.81 0.78 GLU 98 102* 95 Recent Labs 07/13/25 0603 07/15/25 0639 07/16/25 0525 07/17/25 0556 07/17/25 0833 ALKPHOS -- -- -- 90 -- MG 1.8 -- 1.9 2.1 -- PHOS 4.6* < > 4.0 4.8* 3.9 PREALBUMIN -- -- -- 16.9* -- < > = values in this interval not displayed. Recent Labs 07/17/25 05 ALT 12 AST 17 BILIDIR <0.2 LABBILI <0.2* Recent Labs 07/17/25 05 TRIG 44 Recent Labs 07/17/25555 INR 1.01 LABPT 11.6 Weight: 140 lb (63.5 kg) A/P: Day 13 of TPN. Fingerstick blood glucose readings have been WNL. Physician orders and progress notes reviewed. TPN formula: High Protein (150g CHO/L, 50g protein/L) TPN lipids: 50g daily TPN rate: 70 mL/hour (at goal) Additional IV fluids: none Electrolytes have been stable. No new labs today. Will continue TPN electrolytes/additives with Standard Electrolytes/Additives: Sodium Chloride 26 mEq/L Sodium Acetate 9.5 mEq/L Potassium Acetate 20 mEq/L Potassium Phosphate 0 mmol/L Calcium Chloride 4.5 mEq/L Magnesium Sulfate 5 mEq/L MVI 10 mL/bag Trace Elements 1 mL/bag Pharmacy will follow patient and adjust electrolytes. Thanks, Graham Mello, PharmD * Kelli Granaods, [employer] - 07/18/2025 11:10 AM EST Inpatient Psychiatry Progress Note Admit Date: 07/03/2025 LOS: 15 days Attending: Zackery Villegas MD Subjective: Diagnoses remain unchanged. Plan remains as previously discussed Still with ongoing nausea and anxiety. Calm when seen today. remains cooperative with care. She now has a PCP established and is hoping to be discharged tomorrow. Overall coloration and appearance improved compared to other days, appears recently groomed. Objective: Patient Vitals for the past 24 hrs: BP Temp Temp src Pulse Resp SpO2 07/18/25 0824 123/67 98.1 ??F (36.7 ??C) Oral 74 16 100 % 07/18/25 0551 -- -- -- 70 -- -- 07/18/25 0329 -- -- -- 68 -- -- 07/18/25 0121 -- -- -- 77 -- -- 07/17/25 2326 -- -- -- 94 -- -- 07/17/252050 -- 97.9 ??F (36.6 ??C) Oral -- -- -- 07/17/25 2012 108/75 -- -- 70 -- 100 % 07/17/25 1800 119/67 98.5 ??F (36.9 ??C) Oral 105 16 100 % 07/17/25 1729 -- -- -- 77 -- -- 07/17/25 1656 -- -- -- 85 -- -- 07/17/25 1412 -- -- -- 81 -- -- Review of Systems: For complete review of systems, please refer to H&P done by hospitalist. General: No distress. Psych/Behavioral: The patient is nervous/anxious. + for depression + substance abuse Scheduled Meds: cholecalciferol (vitamin D3) 1,000 Units Oral Daily estradioL 4 g Vaginal Once per day on Thursday fat emulsion 250 mL Intravenous Daily flu vac triv (PF) 0.5 mL Intramuscular ONCE pantoprazole 40 mg Oral BID polyethylene glycol 17 g Oral BID pregabalin 200 mg Oral BID QUEtiapine 100 mg Oral Nightly And QUEtiapine 25 mg Oral Daily sodium chloride 0.9% 10 mL Intravenous 3 times per day Mental Status Exam: Estimated Reliability: Questionable Musculoskeletal: resting in bed Appearance: Fair Dress: Gown Psychomotor Activity: Normal Responsiveness: Alert Speech:Normal rate and tone Mood:terrible Affect: Constricted Thought Process: Goal Directed Thought Content: No Disturbances Perception: No Disturbances Orientation: Person, Place, and Time Memory: Intact Insight: Understands nature of condition Judgement: Fair SI/HI:denied by patient , not evident Active Hospital Problems Diagnosis *Generalized abdominal pain Anorexia nervosa (HCC) Anxiety disorder due to general medical condition Superficial thrombophlebitis of right upper extremity Left leg pain Acute reaction to situational stress Vitamin D insufficiency Borderline personality disorder (HCC) Underweight Moderate protein-calorie malnutrition Dental infection Persistent recurrent vomiting History of endometrial cancer History of gastric bypass History of pulmonary embolism Cannabis dependence (HCC) Other chest pain Cardiac murmur History of chronic CHF Abdominal pain Suicidal ideations Paroxysmal atrial fibrillation (HCC) Chronic idiopathic constipation Chronic nausea Anorexia Estevan-Danlos disease Generalized anxiety disorder GERD (gastroesophageal reflux disease) History of DVT (deep vein thrombosis) HTN (hypertension) Iron deficiency anemia Peptic ulcer disease Acute exacerbation of chronic abdominal pain Chronic pain Insomnia due to mental disorder Major depressive disorder, recurrent, moderate (HCC) Nicotine dependence Chronic low back pain Adjustment disorder with mixed anxiety and depressed mood Assessment and plan: Borderline personality disorder (BPD) MDD Cannabis dependence Disordered eating, unspecified (HCC) Anxiety disorder due to general medical condition Continue Seroquel 25mg qAM / 100mg qHS Continue CUT IN WORKER Ativan (noted increased from admission dose 1mg BID PRN) and Hydroxyzine PRN for anxiety No changes from psych team indicated. Psychiatrically cleared for discharge. Again stressed importance of outpatient follow up for her mental health , referrals provided Jesi Granados APRN, PMHNP This chart was completed using voice recognition technology and may contain unintended errors. Behavioral Health Discharge from Mental Wellness Perspective: Yes Follow up: OP psych [facility] * Roxana Hodges - 07/17/2025 3:37 PM EST Images from the original note were not included. 07/17/25 1500 Reason for Visit Date of visit 07/17/25 Visited With Patient Visited By Resort Desk Clerk Reason for Visit Follow-up Patient Assessment Patient Appears Calm;Pleasant Patient Protestant at Registration None Interventions with Patient Collaboration Interventions Consulted with interdisciplinary team (Care linkage to bedside RN) Care Plan Plan for Follow-Up Resort Desk Clerk(s) remains available as needed Additional Notes Additional Notes if needed No spiritual/emotional needs at this time, slab conditioner supervisor(s) remain available as needed. Roxana Hdoges MDiv Resort Desk Clerk, Pastoral and Spiritual Care For non-urgent requests, please place a Pastoral Care consult in PSYCHIATRIC. For all urgent matters, please send an urgent [facility] Secure Chat to the Pastoral Care group at your location. Between 11pm and 7am, please use On-Call Finder to send an [facility] Secure Chat to the on-call slab conditioner supervisor. Pastoral Care office phone numbers: EDG/COV/GRT [phone], RASHEL [phone], FTT [phone], DBN [phone] * Shelley Colon RD,LD - 07/17/2025 3:03 PM EST [facility] Nutrition Malnutrition Reassessment Evidence Supported Malnutrition Diagnosis: Moderate protein-calorie malnutrition In the context of: Starvation Related (Social/Environmental) Indicators: moderate fat depletion, mild muscle mass depletion, < or equal to 50% energy intake compared to estimate energy needs for > or equal to 1 month (additional indicators, BMI @18.2 and @ 84% of IBW) Nutrition Problem/Diagnosis: Nutrition Diagnosis Problem 1: Moderate starvation related malnutrition related to psychological cause or life stress, altered GI function as evidenced by intake 0-25%, new medical diagnosis or change in existing diagnosis or condition. Status: Active nutrition diagnosis Nutrition Prescription: Kcals: 7957-7629 kcal (30-35 kcal/55.9 kg) Protein (g): 67-84 Protein needs based on: 1.2-1.5 g Pro/55.9 kg Fluid (ml): 1 ml/kcal or per MD Other (comment): reviewed 07/10 Plan/Interventions: Meals and Snacks: Clear Liquid Parenteral Nutrition/IV Fluids: Continue Clinimix 12/29 @ 70 ml/hr with daily lipids= 84 g protein, 1693 kcal, 252 g carb, 3.1 mg carb/kg/min. Meets 100% of protein needs and low range of calorie needs. Oral intake is dependent on pts pain, therefore any oral intake is a bonus. Medical Food Supplements: Glucerna Therapeutic, Beneprotein Medical Food/Supplement Freq: Order as desired Vitamin and Mineral Supplements: Vitamin D Nutrition-Related Medication Management: protonix, miraalx Nutrition Education: Supplements, TPN, Importance of nutrition to healing and recovery Collaboration And Referral Of Nutrition Care: Collaboration with other providers (NE[employer]ER[employer]AN, RN, Pharmacist) Nutrition Discharge Instructions: Home TPN (total parenteral nutrition) and oral diet as tolerated.Recommend continue strawberry Glucerna and protein poweder of choice as tolerated Alexei Macias is a 40 y.o. female patient. Admit Diagnosis: Abdominal pain [R10.9] Anorexia [R63.0] Subjective: Subjective Comment: Follow-up. Pt receiving care at time of visit. Noted diet advanced to SB6, thendowngraded to CLD. TPN recs above. Will follow. Anthropometric Measurements: Height: 5' 9 (175.3 cm) Weight: 140 lb (63.5 kg) BMI (Calculated): 20.67 BMI Assessment: 18.5-24.9 Normal IBW +/- 10%: 145 lb (65.8 kg) % IBW: 97 Food/Nutrition Related History: Dietary Orders Ordered Clear Liquid Diet Fluid Restriction(ml/24hr): No Carbonated Beverage DIET EFFECTIVE NOW 07/17/25 1217 TPN Orders TPN ADULT (Clinimix) DAILY 6PM Admin Instructions: This bag delivers the components listed below over 24 hours based on an infusion rate of 70 ml/hour. 84 grams/day Amino Acids 252 grams/day Dextrose 43.7 mEq/day Sodium Chloride 16 mEq/day Sodium Acetate 33.6 mEq/day Potassium Acetate 0 mmol/day Potassium Phosphate 7.6 mEq/day Calcium Chloride 8.4 mEq/day Magnesium Sulfate 10 mL/day MVI (Multivitamin)
1 mL/day Trace El ements *Central Line Use Only* Use ONLY pharmacy supplied tubing and filter. Do not use extension sets longer than 7 inches. Infusion requires use of filter. For non-lipid days, utilize 0.22 micron filter set. Refer to Clinical Skills for additional information. Upon discontinuation of the TPN, ramp down the rate as follows: Decrease TPN rate by 50% for the first hour, then decrease rate again by50% for the second hour, then discontinue TPN. If TPN rate is less than 25 mL/hr when ordered to bediscontinued, then discontinue TPN without the taper. Check blood sugar at third hour after TPN discontinuation. VESICANT Electronically Signed By: Abelino Calderon MD [ ] Food Insecurity Within the past 12 months, you worried that your food would run out before you got the money to buymore.: Often true Within the past 12 months, the food you bought just didn't last and you didn't have money to get more.: Often true % Avg Meals Consumed: 62.5 % (avg of 2 meals) Tube Feeding?: No TPN?: Yes Formula: Clinimix 12/29 Rate: 70 TPN Received (ml): 1882 ml % of TPN Goal Rate Met: 112 % Lipids Freq - 250ml: Daily Food Allergies: (Coriander and Cilantro) Nutrition Focused Physical Findings: LDAs- Active NG/OG/NJ,Wound,Pressure Injury,or Drain None I/O last 3 completed shifts: In: 3179.8 [P.O.:490; I.V.:446.2] Out: 2 [Urine:1; Emesis/NG output:1] Edema:Right Upper Extremity Edema: Trace Left Upper Extremity Edema: Trace Right Lower Extremity Edema: +2 Left Lower Extremity Edema: +2 Abdomen: Abdominal/GI Abdomen Inspection: Soft Bowel Sounds (All Quadrants): Active, Audible Abdominal palpation: Tenderness Nausea: Yes Diarrhea: No When was last BM? (Date): 07/17/25 (Reported by patient) Stool Assessment: Stool Occurrence: 1 Stool Appearance: (!) Type 6 [place] Stool Chart Stool Color: Brown Stool Amount: Small Biochemical Data/Medical Tests: Pertinent Meds: protonix, miralax, Vitamins/Mineral Supplements: vit D Clinical Course: Clinical Course: Admitted d/t Chronic CP and epigastric pain.Surgery, GI, Cardiology and Psych consulted. Chronic Nausea, PUD, Recurrent vomiting. Chronic idiopathic [id number] EGD-MD notes will need a surgical J tube or TPN. 07/06 start TPN, 07/07 advance to goal feed 07/08 addition of lipids-TPN meeting 100% needs. Care coordination working on d/c plan. Diet advanced to SB6. Downgraded to CLD. * Graham Mello RPH - 07/17/2025 2:09 PM EST S: Alexei Macias is a(n) 40 y.o. female with abdominal pain and recurrent vomiting with history of gastric bypass surgery (2020), cannabis use, and PUD. EGD findings on 07/05 with stricture at the GJ anastomosis. Pharmacy managing TPN electrolytes. Patient is expected to be discharged on TPN. O: Most Recent Labs: Recent Labs 07/17/25 0556 WBC 5.1 HGB 11.0* HCT 33.3* PLT 196 Recent Labs 07/15/25 0639 07/16/25 0525 07/17/25 0556 NA 141 141 140 K 4.6 4.6 4.6 CL 106 106 103 CO2 32* 32* 32* CALCIUM 8.8 8.5* 8.9 CAIONIZED -- -- 1.18 BUN 16 19 21* CREATININE 0.66 0.81 0.78 GLU 98 102* 95 Recent Labs 07/13/25 0603 07/15/25 0639 07/16/25 0525 07/17/25 0556 07/17/25 0833 ALKPHOS -- -- -- 90 -- MG 1.8 -- 1.9 2.1 -- PHOS 4.6* < > 4.0 4.8* 3.9 PREALBUMIN -- -- -- 16.9* -- < > = values in this interval not displayed. Recent Labs 07/17/25 0556 ALT 12 AST 17 BILIDIR <0.2 LABBILI <0.2* Recent Labs 07/17/25 0556 TRIG 44 Recent Labs 07/17/25 0556 INR 1.01 LABPT 11.6 Weight: 140 lb (63.5 kg) A/P: Day 12 of TPN. Fingerstick blood glucose readings have been WNL. Physician orders and progress notes reviewed. TPN formula: High Protein (150g CHO/L, 50g protein/L) TPN lipids: 50g daily TPN rate: 70 mL/hour (at goal) Additional IV fluids: none Electrolytes have been stable. Phos level re-drawn this morning and 2nd level was therapeutic. Will continue TPN electrolytes/additives with Standard Electrolytes/Additives: Sodium Chloride 26 mEq/L Sodium Acetate 9.5 mEq/L Potassium Acetate 20 mEq/L Potassium Phosphate 0 mmol/L Calcium Chloride 4.5 mEq/L Magnesium Sulfate 5 mEq/L MVI 10 mL/bag Trace Elements 1 mL/bag Pharmacy will follow patient and adjust electrolytes. ThanksGraham, PharmD * Abelino Calderon MD - 07/17/2025 9:46 AM EST Images from the original note were not included. PROGRESS NOTE Admitted with: 07/03* Generalized abdominal pain EDOD: Not Ready for Discharge because: complications from previous Gastricd Bypass - is on TPN and needs OP doc to follow her. Has some edema and lasix helping. Wants to try soft foods today senior care planis to increase her strength w TPN before trying any further surgery to hopefuly correct the bypass issues Assessment/Plan: Generalized abdominal pain Acute exacerbation of chronic abdominal pain History of gastric bypass Chronic nausea GERD (gastroesophageal reflux disease) Peptic ulcer disease Persistent recurrent vomiting -- OTC PPI 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 This is most likely the site of the gastro-jejunostomy. This could not be traversed with the scope. Performed forceps biopsies in the stomach to rule out H. pylori. The esophagus appeared normal. GI Recommendation Neg for H pylori Pantoprazole 40mg BID Sucralfate QID I do not expect patient to be able to tolerate solid food. She will need a surgical J tube or TPN. -- Pathology: A. Gastric biopsies: - Gastric body type mucosa with mild chronic inflammation. - Negative for H. pylori organisms on H&E stained slides. -- started on TPN per general surgery recommendations - high risk treatment monitoring for line infection, bacteremia, glucose and electrolyte abnormalities and hepatic dysfunction. -- recommend tobacco and cannabis cessation -- considerations for surgical revision or reversal once off tobacco and cannabis for 2 months and nutritional status improves. -- pain controlled. -wants to try increasing feeds today and will try soft diet today Chronic idiopathic constipation -- GI consulted -- Bowel regimen -- improved Generalized anxiety disorder Major depressive disorder, recurrent, moderate (HCC) Insomnia due to mental disorder Adjustment disorder with mixed anxiety and depressed mood Acute reaction to situational stress Borderline personality disorder (HCC) -- Ativan, Vistaril, Seroquel 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 Continued -- psychiatry consulted -- more anxiety issues - psychiatry re-consulted. Suicidal ideations -- Psychiatry consulted -- Suicide precautions -- Improved. No current suicidal ideations or Intent. 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 -- 07/10/2025 no acute issues Nicotine dependence -- Affecting all aspects of patient's health and care -- Nicotine replacement patch. Patient discontinued. Underweight Moderate protein-calorie malnutrition -- Affecting all aspects of patient's health and care Evidence Supported Malnutrition Diagnosis: Moderate protein-calorie malnutrition Starvation Related (Social/Environmental) Indicators: moderate fat depletion; mild muscle mass depletion; < or equal to 50% energy intake compared to estimate energy needs for > or equal to 1 month (additional indicators, BMI @18.2 and @ 84% of IBW) Meals and Snacks: Full Liquid (no carbonated beverages) Parenteral Nutrition/IV Fluids: Continue Clinimix 5/15 @ 70 ml/hr with daily lipids= 84 g protein, 1693 kcal, 252 g carb, 3.1 mg carb/kg/min. [id number]% of protein needs and low range of calorie needs. Oral intake is dependent on pts pain, therefore any oral intake is a bonus. Medical Food Supplements: Glucerna Therapeutic; Beneprotein Vitamin and Mineral Supplements: Calcium; Vitamin D; Sodium; Chloride (Clinimix E) Nutrition-Related Medication Management: Protonix Collaboration And Referral Of Nutrition Care: Collaboration with other providers (GINA, RN, Pharmacist) -- B12 and folate wnl. Iron normal. Transferrin sat low, TIBC wnl. Mag wnl. Phos wnl. 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 Completed -- improving History of endometrial cancer Vitamin D insufficiency -- Vitamin D supplementation Superficial thrombophlebitis of right upper extremity -- right arm pain, in setting of picc caroline e -- acute partially-occlusive superficial vein thrombosis of the basilic vein in zones 1 to 5. --increased edema -Repeat Scan reviewed > neg Leg edema -Neg for DVT -Repeat Lasix x1 again today at 60 mg -Follow UOP and edema -Follow electrolytes Dispo: Home w TPN when Able VTE Prophylaxis: Active Hospital Problems Diagnosis *Generalized abdominal pain Anorexia nervosa (HCC) Anxiety disorder due to general medical condition Superficial thrombophlebitis of right upper extremity Left leg pain Acute reaction to situational stress Vitamin D insufficiency Borderline personality disorder (HCC) Underweight Moderate protein-calorie malnutrition Dental infection Persistent recurrent vomiting History of endometrial cancer History of gastric bypass History of pulmonary embolism Cannabis dependence (HCC) Other chest pain Cardiac murmur History of chronic CHF Abdominal pain Suicidal ideations Paroxysmal atrial fibrillation (HCC) Chronic idiopathic constipation Chronic nausea Anorexia Estevan-Danlos disease Generalized anxiety disorder GERD (gastroesophageal reflux disease) History of DVT (deep vein thrombosis) HTN (hypertension) Iron deficiency anemia Peptic ulcer disease Acute exacerbation of chronic abdominal pain Chronic pain Insomnia due to mental disorder Major depressive disorder, recurrent, moderate (HCC) Nicotine dependence Chronic low back pain Adjustment disorder with mixed anxiety and depressed mood Subjective: Asking for soft diet today - Still w some edema Objective: BP 124/88 (BP Location: Left arm, Patient Position: Sitting) Pulse 77 Temp 98 ??F (36.7 ??C) (Oral) Resp 16 Ht 5' 9 (1.753 m) Wt 140 lb (63.5 kg) SpO2 100% BMI 20.67 kg/m?? I/O last 3 completed shifts: In: 2919 [P.O.:720; I.V.:316.9] Out: 1 [Urine:1] Weight: 140 lb (63.5 kg) Constitutional: Alert and oriented to person, place, and time. No distress. Cardiovascular: Normal rate and regular rhythm. Exam reveals no friction rub. No murmur heard. Pulmonary/Chest: Effort normal and breath sounds normal. No respiratory distress. There are no wheezes. Abdominal: Soft. Bowel sounds are normal. No distension. There is no tenderness. There is no rebound and no guarding. Musculoskeletal:1-2+ non pitting edema. Neurological: Grossly normal. Skin: Skin is warm and dry. No erythema. Labs: Laboratory data and diagnostic testing reviewed 07/17/25. Lab Results Procedure Component Value Units Date/Time Phosphorus Level [[id number]] (Normal) Collected: 07/17/25832 Order Status: Completed Specimen: Blood, Venous Updated: 07/17/25 0858 Phosphorus 3.9 mg/dL Triglycerides [[id number]] (Normal) Collected: 07/17/25555 Order Status: Completed Specimen: Blood, Venous Updated: 07/17/25 0807 Triglyceride 44 mg/dL Prealbumin [[id number]] (Abnormal) Collected: 07/17/25555 Order Status: Completed Specimen: Blood, Venous Updated: 07/17/25 0804 Prealbumin 16.9 mg/dL Hepatic Function Panel [[id number]] (Abnormal) Collected: 07/17/25555 Order Status: Completed Specimen: Blood, Venous Updated: 07/17/25622 Total Protein 6.3 gm/dL Albumin 3.4 gm/dL Bili Direct <0.2 mg/dL Bili Total <0.2 mg/dL AST 17 U/L ALT 12 U/L Alk Phos 90 U/L Phosphorus Level [[id number]] (Abnormal) Collected: 07/17/25555 Order Status: Completed Specimen: Blood, Venous Updated: 07/17/25622 Phosphorus 4.8 mg/dL Magnesium Level [[id number]] (Normal) Collected: 07/17/25555 Order Status: Completed Specimen: Blood, Venous Updated: 07/17/25622 Magnesium 2.1 mg/dL Basic Metabolic Panel [[id number]] (Abnormal) Collected: 07/17/25555 Order Status: Completed Specimen: Blood, Venous Updated: 07/17/25622 Sodium 140 mmol/L Potassium 4.6 mmol/L Chloride 103 mmol/L Total CO2 32 mmol/L Anion Gap 5 mmol/L Calcium 8.9 mg/dL Glucose Lvl 95 mg/dL BUN 21 mg/dL Creatinine 0.78 mg/dL eGFR (CKD-EPIcr 2020) 97 mL/min/1.73 m2 PT/INR [[id number]] (Normal) Collected: 07/17/25555 Order Status: Completed Specimen: Blood, Venous Updated: 07/17/25614 PT 11.6 second(s) INR 1.01 (ratio) Partial Thromboplastin Time [[id number]] (Normal) Collected: 07/17/25555 Order Status: Completed Specimen: Blood, Venous Updated: 07/17/25614 PTT 30.3 second(s) Ionized Calcium - Inpatient [[id number]] (Normal) Collected: 07/17/25555 Order Status: Completed Specimen: Blood, Venous Updated: 07/17/25606 Calcium Ionized 1.18 mmol/L CBC [[id number]] (Abnormal) Collected: 07/17/25555 Order Status: Completed Specimen: Blood, Venous Updated: 07/17/25605 WBC 5.1 x10(3)/mcL RBC 3.73 x10(6)/mcL Hgb 11.0 g/dL Hct 33.3 % MCV 89.3 fL MCH 29.5 pg MCHC 33.0 g/dL RDW 14.0 % Platelet 196 x10(3)/mcL MPV 10.1 fL Phosphorus Level [[id number]] (Normal) Collected: 07/16/25524 Order Status: Completed Specimen: Blood, Venous Updated: 07/16/25824 Phosphorus 4.0 mg/dL Magnesium Level [[id number]] (Normal) Collected: 07/16/25524 Order Status: Completed Specimen: Blood, Venous Updated: 07/16/25824 Magnesium 1.9 mg/dL Basic Metabolic Panel [[id number]] (Abnormal) Collected: 07/16/25524 Order Status: Completed Specimen: Blood, Venous Updated: 07/16/25615 Sodium 141 mmol/L Potassium 4.6 mmol/L Chloride 106 mmol/L Total CO2 32 mmol/L Anion Gap 3 mmol/L Calcium 8.5 mg/dL Glucose Lvl 102 mg/dL BUN 19 mg/dL Creatinine 0.81 mg/dL eGFR (CKD-EPIcr 2020) 92 mL/min/1.73 m2 Abelino Calderon MD 07/17/2025 9:46 AM * Abelino Calderon MD - 07/16/2025 11:23 AM EST Images from the original note were not included. 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 This is most likely the site of the gastro-jejunostomy. This could not be traversed with the scope. Performed forceps biopsies in the stomach to rule out H. pylori. The esophagus appeared normal. GI Recommendation Neg for H pylori Pantoprazole 40mg BID Sucralfate QID I do not expect patient to be able to tolerate solid food. She will need a surgical J tube or TPN. -- Pathology: A. Gastric biopsies: - Gastric body type mucosa with mild chronic inflammation. - Negative for H. pylori organisms on H&E stained slides. -- started on TPN per general surgery recommendations - high risk treatment monitoring for line infection, bacteremia, glucose and electrolyte abnormalities and hepatic dysfunction. -- recommend tobacco and cannabis cessation -- considerations for surgical revision or reversal once off tobacco and cannabis for 2 months and nutritional status improves. -- pain controlled. 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 Continued -- psychiatry consulted -- more anxiety issues - psychiatry re-consulted. Suicidal ideations -- Psychiatry consulted -- Suicide precautions -- Improved. No current suicidal ideations or Intent. 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 -- 07/10/2025 no acute issues Nicotine dependence -- Affecting all aspects of patient's health and care -- Nicotine replacement patch. Patient discontinued. Underweight Moderate protein-calorie malnutrition -- Affecting all aspects of patient's health and care Evidence Supported Malnutrition Diagnosis: Moderate protein-calorie malnutrition Starvation Related (Social/Environmental) Indicators: moderate fat depletion; mild muscle mass depletion; < or equal to 50% energy intake compared to estimate energy needs for > or equal to 1 month (additional indicators, BMI @18.2 and @ 84% of IBW) Meals and Snacks: Full Liquid (no carbonated beverages) Parenteral Nutrition/IV Fluids: Continue Clinimix 5/15 @ 70 ml/hr with daily lipids= 84 g protein, 1693 kcal, 252 g carb, 3.1 mg carb/kg/min. [id number]% of protein needs and low range of calorie needs. Oral intake is dependent on pts pain, therefore any oral intake is a bonus. Medical Food Supplements: Glucerna Therapeutic; Beneprotein Vitamin and Mineral Supplements: Calcium; Vitamin D; Sodium; Chloride (Clinimix E) Nutrition-Related Medication Management: Protonix Collaboration And Referral Of Nutrition Care: Collaboration with other providers (NEWS CAMERAMAN, RN, Pharmacist) -- B12 and folate wnl. Iron normal. Transferrin sat low, TIBC wnl. Mag wnl. Phos wnl. 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 Completed -- improving History of endometrial cancer Vitamin D insufficiency -- Vitamin D supplementation Superficial thrombophlebitis of right upper extremity -- right arm pain, in setting of picc caroline e -- acute partially-occlusive superficial vein thrombosis of the basilic vein in zones 1 to 5. --increased edema -Repeat Scan reviewed Leg edema -Neg for DVT -Repeat Lasix x1 today at 60 mg -Follow UOP and edema -Follow electrolytes Dispo: Home w TPN when Able VTE Prophylaxis: Active Hospital Problems Diagnosis *Generalized abdominal pain Anorexia nervosa (HCC) Anxiety disorder due to general medical condition Superficial thrombophlebitis of right upper extremity Left leg pain Acute reaction to situational stress Vitamin D insufficiency Borderline personality disorder (HCC) Underweight Moderate protein-calorie malnutrition Dental infection Persistent recurrent vomiting History of endometrial cancer History of gastric bypass History of pulmonary embolism Cannabis dependence (HCC) Other chest pain Cardiac murmur History of chronic CHF Abdominal pain Suicidal ideations Paroxysmal atrial fibrillation (HCC) Chronic idiopathic constipation Chronic nausea Anorexia Estevan-Danlos disease Generalized anxiety disorder GERD (gastroesophageal reflux disease) History of DVT (deep vein thrombosis) HTN (hypertension) Iron deficiency anemia Peptic ulcer disease Acute exacerbation of chronic abdominal pain Chronic pain Insomnia due to mental disorder Major depressive disorder, recurrent, moderate (HCC) Nicotine dependence Chronic low back pain Adjustment disorder with mixed anxiety and depressed mood Subjective: Good UOP Still some edema Objective: BP 100/57 Pulse 77 Temp 97.6 ??F (36.4 ??C) (Oral) Resp 16 Ht 5' 9 (1.753 m) Wt 141 lb 11.2 oz (64.3 kg) SpO2 100% BMI 20.93 kg/m?? I/O last 3 completed shifts: In: 2723.4 [P.O.:1120; I.V.:173] Out: - Weight: 141 lb 11.2 oz (64.3 kg) Constitutional: Alert and oriented to person, place, and time. No distress. Cardiovascular: Normal rate and regular rhythm. Exam reveals no friction rub. No murmur heard. Pulmonary/Chest: Effort normal and breath sounds normal. No respiratory distress. There are no wheezes. Abdominal: Soft. Bowel sounds are normal. No distension. There is no tenderness. There is no rebound and no guarding. Musculoskeletal: 1-2 + non pitting edema. Neurological: Grossly normal. Skin: Skin is warm and dry. No erythema. Labs: Laboratory data and diagnostic testing reviewed 07/16/25. Lab Results Procedure Component Value Units Date/Time Phosphorus Level [[id number]] (Normal) Collected: 07/16/25524 Order Status: Completed Specimen: Blood, Venous Updated: 07/16/25824 Phosphorus 4.0 mg/dL Magnesium Level [[id number]] (Normal) Collected: 07/16/25524 Order Status: Completed Specimen: Blood, Venous Updated: 07/16/25824 Magnesium 1.9 mg/dL Basic Metabolic Panel [[id number]] (Abnormal) Collected: 07/16/25524 Order Status: Completed Specimen: Blood, Venous Updated: 07/16/25 0616 Sodium 141 mmol/L Potassium 4.6 mmol/L Chloride 106 mmol/L Total CO2 32 mmol/L Anion Gap 3 mmol/L Calcium 8.5 mg/dL Glucose Lvl 102 mg/dL BUN 19 mg/dL Creatinine 0.81 mg/dL eGFR (CKD-EPIcr 2020) 92 mL/min/1.73 m2 BASIC METABOLIC PANEL [[id number]] (Abnormal) Collected: 07/15/25638 Order Status: Completed Specimen: Blood, Venous Updated: 07/15/25 0734 Sodium 141 mmol/L Potassium 4.6 mmol/L Chloride 106 mmol/L Total CO2 32 mmol/L Anion Gap 3 mmol/L Calcium 8.8 mg/dL Glucose Lvl 98 mg/dL BUN 16 mg/dL Creatinine 0.66 mg/dL eGFR (CKD-EPIcr 2020) 112 mL/min/1.73 m2 Phosphorus Level [[id number]] (Normal) Collected: 07/15/25638 Order Status: Completed Specimen: Blood, Venous Updated: 07/15/25 0734 Phosphorus 4.5 mg/dL Abelino Calderon MD 07/16/2025 11:23 AM Akil Cavazos [facility] - 07/16/2025 8:47 AM EST Pharmacy Consult - TPN S: Alexei Macias is a(n) 40 y.o. female with abdominal pain and recurrent vomiting with history of gastric bypass surgery (2020), cannabis use, and PUD. EGD findings on 07/05 with stricture at the GJ anastomosis. Pharmacy managing TPN electrolytes. Patient is expected to be discharged on TPN. O: Most Recent Labs: Recent Labs 07/10/25 0610 WBC 6.8 HGB 9.9* HCT 30.9* PLT 219 Recent Labs 07/13/25 0603 07/15/25 0639 07/16/25 0525 NA 141 141 141 K 4.2 4.6 4.6 CL 107 106 106 CO2 30* 32* 32* CALCIUM 8.9 8.8 8.5* BUN 19 16 19 CREATININE 0.75 0.66 0.81 GLU 82 98 102* Recent Labs 07/10/25 0610 07/13/25 0603 07/15/25 0639 07/16/25 0525 ALKPHOS 132* -- -- -- MG 1.8 1.8 -- 1.9 PHOS 4.1 4.6* 4.5 4.0 PREALBUMIN 10.4* -- -- -- Recent Labs 07/10/25 0610 ALT 9 AST 16 BILIDIR <0.2 LABBILI <0.2* Recent Labs 07/10/25 0610 TRIG 73 Recent Labs 07/10/25 0610 INR 1.09 LABPT 12.5 Weight: 141 lb 11.2 oz (64.3 kg) ASSESSMENT AND PLAN: Day 11 of TPN. Plans to advance diet not noted at this time. Fingerstick blood glucose readings have been stable. Physician orders and progress notes reviewed. TPN formula: High Protein (150g CHO/L, 50g protein/L) TPN lipids: 50g daily TPN rate: 70 mL/hour Additional IV fluids: none Electrolytes have been stable (after switching off clinimix-E product). - Phos remains borderline high this AM, will continue. - Calcium low at 8.4, however when corrected for low album level is WNL Will continue TPN electrolytes/additives with Standard Electrolytes/Additives: Sodium Chloride 26 mEq/L Sodium Acetate 9.5 mEq/L Potassium Acetate 20 mEq/L Potassium Phosphate 0 mmol/L Calcium Chloride 4.5 mEq/L Magnesium Sulfate 5 mEq/L MVI 10 mL/bag Trace Elements 1 mL/bag Pharmacy will follow patient and adjust electrolytes. Thank you for the consult, Ivelisse Pichardo, PharmD, BCPS * Abelino Calderon MD - 07/15/2025 10:09 AM EST Images from the original note were not included. 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 This is most likely the site of the gastro-jejunostomy. This could not be traversed with the scope. Performed forceps biopsies in the stomach to rule out H. pylori. The esophagus appeared normal. GI Recommendation Neg for H pylori Pantoprazole 40mg BID Sucralfate QID I do not expect patient to be able to tolerate solid food. She will need a surgical J tube or TPN. -- Pathology: A. Gastric biopsies: - Gastric body type mucosa with mild chronic inflammation. - Negative for H. pylori organisms on H&E stained slides. -- started on TPN per general surgery recommendations - high risk treatment monitoring for line infection, bacteremia, glucose and electrolyte abnormalities and hepatic dysfunction. -- recommend tobacco and cannabis cessation -- considerations for surgical revision or reversal once off tobacco and cannabis for 2 months and nutritional status improves. -- pain controlled. 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 Continued -- psychiatry consulted -- more anxiety issues - psychiatry re-consulted. Suicidal ideations -- Psychiatry consulted -- Suicide precautions -- Improved. No current suicidal ideations or Intent. 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 -- 07/10/2025 no acute issues Nicotine dependence -- Affecting all aspects of patient's health and care -- Nicotine replacement patch. Patient discontinued. Underweight Moderate protein-calorie malnutrition -- Affecting all aspects of patient's health and care Evidence Supported Malnutrition Diagnosis: Moderate protein-calorie malnutrition Starvation Related (Social/Environmental) Indicators: moderate fat depletion; mild muscle mass depletion; < or equal to 50% energy intake compared to estimate energy needs for > or equal to 1 month (additional indicators, BMI @18.2 and @ 84% of IBW) Meals and Snacks: Full Liquid (no carbonated beverages) Parenteral Nutrition/IV Fluids: Continue Clinimix 5/15 @ 70 ml/hr with daily lipids= 84 g protein, 1693 kcal, 252 g carb, 3.1 mg carb/kg/min. [id number]% of protein needs and low range of calorie needs. Oral intake is dependent on pts pain, therefore any oral intake is a bonus. Medical Food Supplements: Glucerna Therapeutic; Beneprotein Vitamin and Mineral Supplements: Calcium; Vitamin D; Sodium; Chloride (Clinimix E) Nutrition-Related Medication Management: Protonix Collaboration And Referral Of Nutrition Care: Collaboration with other providers (GINA, RN, Pharmacist) -- B12 and folate wnl. Iron normal. Transferrin sat low, TIBC wnl. Mag wnl. Phos wnl. 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 Completed -- improving History of endometrial cancer Vitamin D insufficiency -- Vitamin D supplementation Superficial thrombophlebitis of right upper extremity -- right arm pain, in setting of picc caroline e -- acute partially-occlusive superficial vein thrombosis of the basilic vein in zones 1 to 5. --increased edema -Repeat Scan reviewed Leg edema -Neg for DVT -Lasix x1 today -Follow electrolytes VTE Prophylaxis: Active Hospital Problems Diagnosis *Generalized abdominal pain Anorexia nervosa (HCC) Anxiety disorder due to general medical condition Superficial thrombophlebitis of right upper extremity Left leg pain Acute reaction to situational stress Vitamin D insufficiency Borderline personality disorder (HCC) Underweight Moderate protein-calorie malnutrition Dental infection Persistent recurrent vomiting History of endometrial cancer History of gastric bypass History of pulmonary embolism Cannabis dependence (HCC) Other chest pain Cardiac murmur History of chronic CHF Abdominal pain Suicidal ideations Paroxysmal atrial fibrillation (HCC) Chronic idiopathic constipation Chronic nausea Anorexia Estevan-Danlos disease Generalized anxiety disorder GERD (gastroesophageal reflux disease) History of DVT (deep vein thrombosis) HTN (hypertension) Iron deficiency anemia Peptic ulcer disease Acute exacerbation of chronic abdominal pain Chronic pain Insomnia due to mental disorder Major depressive disorder, recurrent, moderate (HCC) Nicotine dependence Chronic low back pain Adjustment disorder with mixed anxiety and depressed mood Subjective: NV last PM better - Still edema - Good spirits today otherwise Objective: BP 107/68 Pulse 73 Temp 98.5 ??F (36.9 ??C) (Oral) Resp 16 Ht 5' 9 (1.753 m) Wt 141 lb 11.2 oz (64.3 kg) SpO2 100% BMI 20.93 kg/m?? I/O last 3 completed shifts: In: 1285.3 [I.V.:117.5] Out: - Weight: 141 lb 11.2 oz (64.3 kg) Constitutional: Alert and oriented to person, place, and time. No distress. Cardiovascular: Normal rate and regular rhythm. Exam reveals no friction rub. No murmur heard. Pulmonary/Chest: Effort normal and breath sounds normal. No respiratory distress. There are no wheezes. Abdominal: Soft. Bowel sounds are normal. No distension. There is no tenderness. There is no rebound and no guarding. Musculoskeletal: 2+ non pitting edema. Neurological: Grossly normal. Skin: Skin is warm and dry. No erythema. Labs: Laboratory data and diagnostic testing reviewed 07/15/25. Lab Results Procedure Component Value Units Date/Time BASIC METABOLIC PANEL [[id number]] (Abnormal) Collected: 07/15/25638 Order Status: Completed Specimen: Blood, Venous Updated: 07/15/25733 Sodium 141 mmol/L Potassium 4.6 mmol/L Chloride 106 mmol/L Total CO2 32 mmol/L Anion Gap 3 mmol/L Calcium 8.8 mg/dL Glucose Lvl 98 mg/dL BUN 16 mg/dL Creatinine 0.66 mg/dL eGFR (CKD-EPIcr 2020) 112 mL/min/1.73 m2 Phosphorus Level [[id number]] (Normal) Collected: 07/15/25638 Order Status: Completed Specimen: Blood, Venous Updated: 07/15/2534 Phosphorus 4.5 mg/dL Abelino Calderon MD 07/15/2025 10:09 AM * Akil Pichardo, [facility] - 07/15/2025 7:57 AM EST Pharmacy Consult - TPN S: Alexei Macias is a(n) 40 y.o. female with abdominal pain and recurrent vomiting with history of gastric bypass surgery (2020), cannabis use, and PUD. EGD findings on 07/05 with stricture at the GJ anastomosis. Pharmacy managing TPN electrolytes. Patient is expected to be discharged on TPN. O: Most Recent Labs: Recent Labs 07/10/25 0610 WBC 6.8 HGB 9.9* HCT 30.9* PLT 219 Recent Labs 07/10/25 0610 07/13/25 0603 07/15/25 0639 NA 139 141 141 K 4.4 4.2 4.6 CL 107 107 106 CO2 24 30* 32* CALCIUM 8.1* 8.9 8.8 BUN 12 19 16 CREATININE 0.70 0.75 0.66 GLU 126* 82 98 Recent Labs 07/09/25 0616 07/10/25 0610 07/13/25 0603 07/15/25 0639 ALKPHOS -- 132* -- -- MG 1.9 1.8 1.8 -- PHOS 4.4 4.1 4.6* 4.5 PREALBUMIN -- 10.4* -- -- Recent Labs 07/10/25 0610 ALT 9 AST 16 BILIDIR <0.2 LABBILI <0.2* Recent Labs 07/10/25 0610 TRIG 73 Recent Labs 07/10/25 0610 INR 1.09 LABPT 12.5 Weight: 141 lb 11.2 oz (64.3 kg) ASSESSMENT AND PLAN: Day 10 of TPN. Plans to advance diet not noted at this time. Fingerstick blood glucose readings have been stable. Physician orders and progress notes reviewed. TPN formula: High Protein (150g CHO/L, 50g protein/L) TPN lipids: 50g daily TPN rate: 70 mL/hour Additional IV fluids: none Electrolytes have been stable (after switching off clinimix-E product). Phos remains borderline high this AM, will continue. Will continue TPN electrolytes/additives with Standard Electrolytes/Additives: Sodium Chloride 26 mEq/L Sodium Acetate 9.5 mEq/L Potassium Acetate 20 mEq/L Potassium Phosphate 0 mmol/L Calcium Chloride 4.5 mEq/L Magnesium Sulfate 5 mEq/L MVI 10 mL/bag Trace Elements 1 mL/bag Pharmacy will follow patient and adjust electrolytes. Thank you for the consult, Ivelisse Pichardo, PharmD, BCPS * Abelino Calderon MD - 07/14/2025 1:53 PM EST Images from the original note were not included. 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 This is most likely the site of the gastro-jejunostomy. This could not be traversed with the scope. Performed forceps biopsies in the stomach to rule out H. pylori. The esophagus appeared normal. GI Recommendation Neg for H pylori Pantoprazole 40mg BID Sucralfate QID I do not expect patient to be able to tolerate solid food. She will need a surgical J tube or TPN. -- Pathology: A. Gastric biopsies: - Gastric body type mucosa with mild chronic inflammation. - Negative for H. pylori organisms on H&E stained slides. -- started on TPN per general surgery recommendations - high risk treatment monitoring for line infection, bacteremia, glucose and electrolyte abnormalities and hepatic dysfunction. -- recommend tobacco and cannabis cessation -- considerations for surgical revision or reversal once off tobacco and cannabis for 2 months and nutritional status improves. -- pain controlled. 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 Continued -- psychiatry consulted -- more anxiety issues - psychiatry re-consulted. Suicidal ideations -- Psychiatry consulted -- Suicide precautions -- Improved. No current suicidal ideations or Intent. 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 -- 07/10/2025 no acute issues Nicotine dependence -- Affecting all aspects of patient's health and care -- Nicotine replacement patch. Patient discontinued. Underweight Moderate protein-calorie malnutrition -- Affecting all aspects of patient's health and care Evidence Supported Malnutrition Diagnosis: Moderate protein-calorie malnutrition Starvation Related (Social/Environmental) Indicators: moderate fat depletion; mild muscle mass depletion; < or equal to 50%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 WORKER -- patient reports that BP been running on low side for awhile -- monitor -- 106/68 today History of DVT (deep vein thrombosis) History of pulmonary embolism -- appears to be provoked -- no longer on anticoagulation Iron deficiency anemia -- Hemoglobin normal. 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 -- 07/10/2025 no acute issues Nicotine dependence -- Affecting all aspects of patient's health and care -- Nicotine replacement patch. Patient discontinued. Underweight Moderate protein-calorie malnutrition -- Affecting all aspects of patient's health and care Evidence Supported Malnutrition Diagnosis: Moderate protein-calorie malnutrition Starvation Related (Social/Environmental) Indicators: moderate fat depletion; mild muscle mass depletion; < or equal to 50% energy intake compared to estimate energy needs for > or equal to 1 month (additional indicators, BMI @18.2 and @ 84% of IBW) Meals and Snacks: Full Liquid (no carbonated beverages) Parenteral Nutrition/IV Fluids: Continue Clinimix 5/15 @ 70 ml/hr with daily lipids= 84 g protein, 1693 kcal, 252 g carb, 3.1 mg carb/kg/min. [id number]% of protein needs and low range of calorie needs. Oral intake is dependent on pts pain, therefore any oral intake is a bonus. Medical Food Supplements: Glucerna Therapeutic; Beneprotein Vitamin and Mineral Supplements: Calcium; Vitamin D; Sodium; Chloride (Clinimix E) Nutrition-Related Medication Management: Protonix Collaboration And Referral Of Nutrition Care: Collaboration with other providers (NEWS CAMERAMAN, RN, Pharmacist) -- B12 and folate wnl. Iron normal. Transferrin sat low, TIBC wnl. Mag wnl. Phos wnl. 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 Completed -- improving History of endometrial cancer Vitamin D insufficiency -- Vitamin D supplementation Superficial thrombophlebitis of right upper extremity -- right arm pain, in setting of picc caroline e -- acute partially-occlusive superficial vein thrombosis of the basilic vein in zones 1 to 5. --Improved Left leg pain -- Venous duplex of left lower extremity neg for DVT --Improved Dispo: TBD VTE Prophylaxis: Active Hospital Problems Diagnosis *Generalized abdominal pain Anorexia nervosa (HCC) Anxiety disorder due to general medical condition Superficial thrombophlebitis of right upper extremity Left leg pain Acute reaction to situational stress Vitamin D insufficiency Borderline personality disorder (HCC) Underweight Moderate protein-calorie malnutrition Dental infection Persistent recurrent vomiting History of endometrial cancer History of gastric bypass History of pulmonary embolism Cannabis dependence (HCC) Other chest pain Cardiac murmur History of chronic CHF Abdominal pain Suicidal ideations Paroxysmal atrial fibrillation (HCC) Chronic idiopathic constipation Chronic nausea Anorexia Estevan-Danlos disease Generalized anxiety disorder GERD (gastroesophageal reflux disease) History of DVT (deep vein thrombosis) HTN (hypertension) Iron deficiency anemia Peptic ulcer disease Acute exacerbation of chronic abdominal pain Chronic pain Insomnia due to mental disorder Major depressive disorder, recurrent, moderate (HCC) Nicotine dependence Chronic low back pain Adjustment disorder with mixed anxiety and depressed mood Subjective: Pian control good thjis AM - Trying some yogurt. No FC no NV no CP noSOB Objective: BP 106/68 (BP Location: Right arm, Patient Position: Semi Fowlers) Pulse 73 Temp 98 ??F (36.7 ??C) (Oral) Resp 16 Ht 5' 9 (1.753 m) Wt 141 lb 11.2 oz (64.3 kg) SpO2 99% BMI 20.93 kg/m?? I/O last 3 completed shifts: In: 739.5 [I.V.:101.3] Out: - Weight: 141 lb 11.2 oz (64.3 kg) Constitutional: Alert and oriented to person, place, and time. No distress. Cardiovascular: Normal rate and regular rhythm. Exam reveals no friction rub. No murmur heard. Pulmonary/Chest: Effort normal and breath sounds normal. No respiratory distress. There are no wheezes. Abdominal: Soft. Bowel sounds are normal. No distension. There is no tenderness. There is no rebound and no guarding. Musculoskeletal: No edema. Neurological: Grossly normal. Skin: Skin is warm and dry. No erythema. Labs: Laboratory data and diagnostic testing reviewed 07/13/25. Lab Results Procedure Component Value Units Date/Time Basic Metabolic Panel [[id number]] (Abnormal) Collected: 07/13/25602 Order Status: Completed Specimen: Blood, Venous Updated: 07/13/25652 Sodium 141 mmol/L Potassium 4.2 mmol/L Chloride 107 mmol/L Total CO2 30 mmol/L Anion Gap 4 mmol/L Calcium 8.9 mg/dL Glucose Lvl 82 mg/dL BUN 19 mg/dL Creatinine 0.75 mg/dL eGFR (CKD-EPIcr 2020) 101 mL/min/1.73 m2 Phosphorus Level [[id number]] (Abnormal) Collected: 07/13/25602 Order Status: Completed Specimen: Blood, Venous Updated: 07/13/25652 Phosphorus 4.6 mg/dL Magnesium Level [[id number]] (Normal) Collected: 07/13/25602 Order Status: Completed Specimen: Blood, Venous Updated: 07/13/25652 Magnesium 1.8 mg/dL Abelino Calderon MD 07/13/2025 9:10 AM * Ulysses Lazcano MSW - 07/12/2025 1:32 PM EST 07/12/25 1332 Ongoing Discharge Planning Evaluation Completed by CC/RADHA Yes Actual Discharge Plan 07/12/25 RADHA UPDATE: SW [facility] with [facility] and they are waiting to hear back from Pt PCP to see if they can follow Pt for TPN. Pt currently has no one to follow along. Pt transportation TBD of DC. SW will continue to follow along. * Solange Schumacher RN - 07/12/2025 1:12 PM EST entered pts room, she was in the bathroom doing her CHG bath when she spontaneously started bleeding from her PICC line. assisted pt back to bed, applied pressure to site to stop bleeding. removed dressing and applied quick clot, cleaned around site & changed dressing, claves changed, iv tubingchanged - notified charge who notified MD. order obtained to discontinue lovenox, site is intact with no signs of bleeding. will continue to monitor * Graham Mello, [facility] - 07/12/2025 10:41 AM EST S: Alexei Macias is a(n) 40 y.o. female with abdominal pain and recurrent vomiting with history of gastric bypass surgery (2020), cannabis use, and PUD. EGD findings on 07/05 with stricture at the GJ anastomosis. Pharmacy managing TPN electrolytes. Patient is expected to be discharged on TPN. O: Most Recent Labs: Recent Labs 07/05/25170107/10/25 0610 WBC 7.8 6.8 HGB 12.2 9.9* HCT 37.0 30.9* PLT 319 219 Recent Labs 07/07/25 0819 07/08/25 0515 07/09/25 0616 07/10/25 0610 NA -- 139 141 139 K -- 4.8 4.7 4.4 CL -- 106 107 107 CO2 -- 31* 27 24 CALCIUM -- 8.4* 8.4* 8.1* CAIONIZED 1.15 -- -- -- BUN -- 9 11 12 CREATININE -- 0.79 0.76 0.70 GLU -- 97 92 126* Recent Labs 07/05/25 1702 07/06/25 0505 07/07/25 0552 07/08/25 0515 07/09/25 0616 07/10/25 0610 ALKPHOS 127* 100 -- -- -- 132* MG 1.9 2.0 < > 2.1 1.9 1.8 PHOS 3.3 4.4 < > 3.6 4.4 4.1 PREALBUMIN 14.5* -- -- -- -- 10.4* < > = values in this interval not displayed. Recent Labs 07/05/25 17007/06/25 0505 07/10/25 0610 ALT 7 6 9 AST 20 18 16 BILIDIR <0.2 <0.2 <0.2 LABBILI 0.3 0.2 <0.2* Recent Labs 07/05/25 1702 07/10/25 0610 TRIG 61 59 73 Recent Labs 07/05/25 1701 07/10/25 0610 INR 1.06 1.09 LABPT 12.2 12.5 Weight: 141 lb 11.2 oz (64.3 kg) A/P: Day 7 of TPN. Fingerstick blood glucose readings have been WNL. Physician orders and progress notes reviewed. TPN formula: High Protein (150g CHO/L, 50g protein/L) TPN lipids: 50g daily TPN rate: 70 mL/hour (at goal) Additional IV fluids: none Electrolytes have been stable. Will continue TPN electrolytes/additives with Clinimix-E Electrolytes/Additives: Sodium Chloride 10 mEq/L Sodium Acetate Trihydrate 25 mEq/L Potassium Phosphate 15 mmol/L (30 mEq K+) Calcium Chloride 4.5 mEq/L Magnesium Chloride 5 mEq/L MVI 10 mL/bag Trace Elements 1 mL/bag Pharmacy will follow patient and adjust electrolytes. Graham Moe, PharmD * Abelino Calderon MD - 07/12/2025 9:47 AM EST Images from the original note were not included. 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 This is most likely the site of the gastro-jejunostomy. This could not be traversed with the scope. Performed forceps biopsies in the stomach to rule out H. pylori. The esophagus appeared normal. GI Recommendation Neg for H pylori Pantoprazole 40mg BID Sucralfate QID I do not expect patient to be able to tolerate solid food. She will need a surgical J tube or TPN. -- Pathology: A. Gastric biopsies: - Gastric body type mucosa with mild chronic inflammation. - Negative for H. pylori organisms on H&E stained slides. -- started on TPN per general surgery recommendations - high risk treatment monitoring for line infection, bacteremia, glucose and electrolyte abnormalities and hepatic dysfunction. -- recommend tobacco and cannabis cessation -- considerations for surgical revision or reversal once off tobacco and cannabis for 2 months and nutritional status improves. -- pain controlled. -- Right upper arm to right neck pain 07/09 -- CXR, personally reviewed: No acute finding. Right PICC line with tip somewhat obscured although overlying the mid to lower SVC. -- Venous duplex of RUE negative for DVT but with evidence of acute partially- occlusive superficialvein thrombosis of the basilic vein in zones 1 to 5. 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 Continued -- psychiatry consulted -- more anxiety issues - psychiatry re-consulted. Suicidal ideations -- Psychiatry consulted -- Suicide precautions -- Improved. No current suicidal ideations or Intent. -- CBO and suicide precautions discontinued. -- Still feels very anxious and depressed and asking to see psych Anorexia -- Psychiatry and GI consulted -- EGD findings as noted above Cannabis dependence (HCC) -- Advised to stop Other chest pain -- cardiology consulted -- [place] to be atypical for CAD -- Suspect GI related -- If echocardiogram unremarkable, no further cardiac workup recommended -- Echocardiogram: * Left ventricular chamber dimension is normal. * Left ventricular function is normal with an estimated ejection fraction of 55-60%. * Left ventricular segmental wall motion is normal. * The left ventricular diastolic function is normal. * Right ventricular systolic function is normal. * Estimated pulmonary artery systolic pressure is 31 mmHg. 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 -- 07/10/2025 no acute issues Nicotine dependence -- Affecting all aspects of patient's health and care -- Nicotine replacement patch. Patient discontinued. Underweight Moderate protein-calorie malnutrition -- Affecting all aspects of patient's health and care Evidence Supported Malnutrition Diagnosis: Moderate protein-calorie malnutrition Starvation Related (Social/Environmental) Indicators: moderate fat depletion; mild muscle mass depletion; < or equal to 50% energy intake compared to estimate energy needs for > or equal to 1 month (additional indicators, BMI @18.2 and @ 84% of IBW) Meals and Snacks: Full Liquid (no carbonated beverages) Parenteral Nutrition/IV Fluids: Continue Clinimix 5/15 @ 70 ml/hr with daily lipids= 84 g protein, 1693 kcal, 252 g carb, 3.1 mg carb/kg/min. [id number]% of protein needs and low range of calorie needs. Oral intake is dependent on pts pain, therefore any oral intake is a bonus. Medical Food Supplements: Glucerna Therapeutic; Beneprotein Vitamin and Mineral Supplements: Calcium; Vitamin D; Sodium; Chloride (Clinimix E) Nutrition-Related Medication Management: Protonix Collaboration And Referral Of Nutrition Care: Collaboration with other providers (NEWS CAMERAMAN, RN, Pharmacist) -- B12 and folate wnl. Iron normal. Transferrin sat low, TIBC wnl. Mag wnl. Phos wnl. 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 Completed -- improving History of endometrial cancer d Vitamin D insufficiency -- Vitamin D supplementation Superficial thrombophlebitis of right upper extremity -- right arm pain, in setting of picc caroline e -- acute partially-occlusive superficial vein thrombosis of the basilic vein in zones 1 to 5. Left leg pain -- Venous duplex of left lower extremity neg for DVT Dispo: TBD VTE Prophylaxis: Qualifying Pharmacologic Prophylaxis enoxaparin (LOVENOX) injection 40 mg DAILY - LMWH/Xa Active Hospital Problems Diagnosis *Generalized abdominal pain Superficial thrombophlebitis of right upper extremity Left leg pain Acute reaction to situational stress Vitamin D insufficiency Borderline personality disorder (HCC) Underweight Moderate protein-calorie malnutrition Dental infection Persistent recurrent vomiting History of endometrial cancer History of gastric bypass History of pulmonary embolism Cannabis dependence (HCC) Other chest pain Cardiac murmur History of chronic CHF Abdominal pain Suicidal ideations Paroxysmal atrial fibrillation (HCC) Chronic idiopathic constipation Chronic nausea Anorexia Estevan-Danlos disease Generalized anxiety disorder GERD (gastroesophageal reflux disease) History of DVT (deep vein thrombosis) HTN (hypertension) Iron deficiency anemia Peptic ulcer disease Acute exacerbation of chronic abdominal pain Chronic pain Insomnia due to mental disorder Major depressive disorder, recurrent, moderate (HCC) Nicotine dependence Chronic low back pain Adjustment disorder with mixed anxiety and depressed mood Subjective: Still w constant ABD pian no CP noSOB no FC no diarrhea Objective: BP 102/53 (BP Location: Right arm, Patient Position: Lying left side) Pulse 64 Temp 98 ??F (36.7 ??C) (Oral) Resp 16 Ht 5' 9 (1.753 m) Wt 141 lb 11.2 oz (64.3 kg) SpO2 100% BMI 20.93 kg/m?? I/O last 3 completed shifts: In: 3727.9 [P.O.:850; I.V.:467.2] Out: 50 [Urine:50] Weight: 141 lb 11.2 oz (64.3 kg) Constitutional: Thin female - Alert and oriented to person, place, and time. No distress. Cardiovascular: Normal rate and regular rhythm. Exam reveals no friction rub. No murmur heard. Pulmonary/Chest: Effort normal and breath sounds normal. No respiratory distress. There are no wheezes. Abdominal: Soft. Bowel sounds are normal. No distension. There is no tenderness. There is no rebound and no guarding. Musculoskeletal: No edema. Neurological: Grossly normal. Skin: Skin is warm and dry. No erythema. Labs: Laboratory data and diagnostic testing reviewed 07/12/25. Lab Results Procedure Component Value Units Date/Time Prealbumin [[id number]] (Abnormal) Collected: 07/10/25 0610 Order Status: Completed Specimen: Blood, Venous Updated: 07/10/25 1420 Prealbumin 10.4 mg/dL Abelino A Nienaber, MD 07/12/2025 9:47 AM TEN * Kelli Granados, [employer] - 07/12/2025 9:44 AM EST Inpatient Psychiatry Progress Note Admit Date: 07/03/2025 LOS: 9 days Attending: Zackery Villegas MD Subjective: The patient was seen for psychiatric follow-up for anxiety and anorexia. She does meet some criteria for Anorexia in the sense that she does have an intense fear of becoming overweight, however she reports she primarily doesn't eat because of pain since her gastric bypasssurgery. She says she looks disgusting because of how swollen she is from all the fluids (getting TPN and fluids). Says she has been staring at the lipids infusion, of which she refers to as bag of fat and has to keep telling herself it is for nutrition. She was calm, up fidgeting around/straightening up items on her bedside table for a bit. Eventuallysat on bed to participate in a more direct conversation. At one point become tremulous while she is talking, otherwise not visibly anxious. Requesting for someone to talk to about her anorexia. She is difficult, as her history changes somewhat during each encounter, will at times say oh I don't remember that conversation during attempt to clarify based of prior history given During out initial encounter, she did report being overweight and having fears of becoming fat again , however she at that time denied having history of bulimia. Today she say otherwise and reports Then proceeds to tell me how she used to purge her food, of which she denied during our initial encounter. She continues to deny suicidal ideations. Staff says she got very upset they had to take her vape away, she was no abiding by hospital policy. Also made several attempts to leave the unit and was also dissatisfied with this policy. Reportedly fainted in her room yesterday, no injuries sustained Objective: Patient Vitals for the past 24 hrs: BP Temp Temp src Pulse Resp SpO2 07/12/25 0740 102/53 98 ??F (36.7 ??C) Oral 64 16 100 % 07/12/25 0513 -- -- -- 70 -- -- 07/12/25 0107 -- -- -- 70 -- -- 07/11/25 2355 94/51 -- -- -- -- -- 07/11/25 2340 (!) 86/47 98.1 ??F (36.7 ??C) Oral 78 16 99 % 07/11/25 2314 -- -- -- 93 -- -- 07/11/25 1714 -- -- -- 84 -- -- 07/11/25 1517 -- -- -- 88 -- -- 07/11/25 1500 115/60 98.1 ??F (36.7 ??C) Oral 95 16 100 % 07/11/25 1258 116/71 -- -- 92 18 100 % Review of Systems: For complete review of systems, please refer to H&P done by hospitalist. General: No distress. Psych/Behavioral: The patient is nervous/anxious. + for depression + appetite changes Scheduled Meds: cholecalciferol (vitamin D3) 1,000 Units Oral Daily enoxaparin 40 mg Subcutaneous Daily - LMWH/Xa estradioL 4 g Vaginal Once per day on Thursday fat emulsion 250 mL Intravenous Daily flu vac triv (PF) 0.5 mL Intramuscular ONCE pantoprazole 40 mg Oral BID polyethylene glycol 17 g Oral BID pregabalin 200 mg Oral BID QUEtiapine 100 mg Oral Nightly And QUEtiapine 50 mg Oral Daily sodium chloride 0.9% 10 mL Intravenous 3 times per day Mental Status Exam: Appearance: Fair Dress: Gown Psychomotor Activity: Normal Attitude: Cooperative Responsiveness: Alert Speech:Normal rate and tone Mood: I dont even know Affect: Constricted Thought Process: Goal Directed Thought Content: No Disturbances Perception: No Disturbances Orientation: Person, Place, and Time Memory: Intact Insight: Understands nature of condition Judgement: Fair SI/HI:denied by patient , not evident Active Hospital Problems Diagnosis *Generalized abdominal pain Superficial thrombophlebitis of right upper extremity Left leg pain Acute reaction to situational stress Vitamin D insufficiency Borderline personality disorder (HCC) Underweight Moderate protein-calorie malnutrition Dental infection Persistent recurrent vomiting History of endometrial cancer History of gastric bypass History of pulmonary embolism Cannabis dependence (HCC) Other chest pain Cardiac murmur History of chronic CHF Abdominal pain Suicidal ideations Paroxysmal atrial fibrillation (HCC) Chronic idiopathic constipation Chronic nausea Anorexia Estevan-Danlos disease Generalized anxiety disorder GERD (gastroesophageal reflux disease) History of DVT (deep vein thrombosis) HTN (hypertension) Iron deficiency anemia Peptic ulcer disease Acute exacerbation of chronic abdominal pain Chronic pain Insomnia due to mental disorder Major depressive disorder, recurrent, moderate (HCC) Nicotine dependence Chronic low back pain Adjustment disorder with mixed anxiety and depressed mood Time spent 51 min preparing to see the patient, obtained updates and history from nursing staff, medications reviewed/adjusted, spoke with nursing Assessment and plan: Borderline personality disorder MDD Cannabis dependence Anorexia, unspecified (HCC) Anxiety disorder due to general medical condition Decrease daytime doses of Seroquel to 25 mg due to hypotension-continue 100 mg nightly. She is adamant this is the only thing that helps her sleep. 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 We once again discussed following up with the [facility] other referrals: Eating disorder Clinic-[facility] Home Page - 2nd Edition - Remedy Therapy [facility]- [facility] - [facility]- Jesi Granados APRN, [facility] This chart was completed using voice recognition technology and may contain unintended errors. * Fang Rosas RD,LD - 07/12/2025 9:04 AM EST [facility] Nutrition Malnutrition Reassessment Evidence Supported Malnutrition Diagnosis: Moderate protein-calorie malnutrition In the context of: Starvation Related (Social/Environmental) Indicators: moderate fat depletion, mild muscle mass depletion, < or equal to 50% energy intake compared to estimate energy needs for > or equal to 1 month (additional indicators, BMI @18.2 and @ 84% of IBW) Nutrition Problem/Diagnosis: Nutrition Diagnosis Problem 1: Moderate starvation related malnutrition related to psychological cause or life stress, altered GI function as evidenced by intake 0-25%, new medical diagnosis or change in existing diagnosis or condition. Status: Active nutrition diagnosis Nutrition Prescription: Kcals: 8084-1959 kcal (30-35 kcal/55.9 kg) Protein (g): 67-84 Protein needs based on: 1.2-1.5 g Pro/55.9 kg Fluid (ml): 1 ml/kcal or per MD Other (comment): reviewed 07/10 Plan/Interventions: Meals and Snacks: Full Liquid (no carbonated beverages) Parenteral Nutrition/IV Fluids: Continue Clinimix 5/15 @ 70 ml/hr with daily lipids= 84 g protein, 1693 kcal, 252 g carb, 3.1 mg carb/kg/min. [id number]% of protein needs and low range of calorie needs. Oral intake is dependent on pts pain, therefore any oral intake is a bonus. Medical Food/Supplement Freq: Order as desired Vitamin and Mineral Supplements: Calcium, Vitamin D, Sodium, Chloride (Clinimix E) Nutrition-Related Medication Management: Protonix Nutrition Education: Supplements, TPN, Importance of nutrition to healing and recovery Collaboration And Referral Of Nutrition Care: Collaboration with other providers (NEWS CAMERAMAN, RN, Pharmacist) Nutrition Discharge Instructions: Home TPN (total parenteral nutrition) and oral diet as tolerated.Recommend continue strawberry Glucerna and protein poweder of choice as tolerated Alexei Macias is a 40 y.o. female patient. Admit Diagnosis: Abdominal pain [R10.9] Anorexia [R63.0] Subjective: Subjective Comment: Brief follow up. Pt reports doing well and taking in a little bit . TPN infusing as ordered. Anthropometric Measurements: Height: 5' 9 (175.3 cm) Weight: 141 lb 11.2 oz (64.3 kg) BMI (Calculated): 20.93 Food/Nutrition Related History: Dietary Orders Ordered Full Liquid Diet Fluid Restriction(ml/24hr): No Carbonated Beverage DIET EFFECTIVE NOW 07/05/25 1531 TPN Orders TPN ADULT w/ Electrolytes (Clinimix-E) DAILY 6PM Admin Instructions: This bag delivers the components listed below over 24 hours based on an infusion rate of 70 ml/hour. 84 grams/day Amino Acids 252 grams/day Dextrose 16.8 mEq/day Sodium Chloride 42 mEq/day Sodium Acetate Trihydrate 25.2 mmol/day Potassium Phosphate 7.6 mEq/day Calcium Chloride 8.4 mEq/day Magnesium Chloride 10 mL/day MVI (Multivitamin) 1 mL/day Trace Elements *Central Line Use Only* Use ONLY pharmacy supplied tubing and filter. Do not use extension sets longer than 7 inches.Infusion requires use of filter. For non-lipid days, utilize 0.22 micron filter set. Refer to Clinical Skills for additional information. Upon discontinuation of the TPN, ramp down the rate as follows: Decrease TPN rate by 50% for the first hour, then decrease rate again by 50% for the second hour,then discontinue TPN. If TPN rate is less than 25 mL/hr when ordered to be discontinued, then discontinue TPN without the taper. Check blood sugar at third hour after TPN discontinuation. VESICANT Electronically Signed By: Stephanie Adamson APRN [ ] * Graham Mello RPH - 07/11/2025 11:21 AM EST S: Alexei Macias is a(n) 40 y.o. female with abdominal pain and recurrent vomiting with history of gastric bypass surgery (2020), cannabis use, and PUD. EGD findings on 07/05 with stricture at the GJ anastomosis. Pharmacy managing TPN electrolytes. Patient is expected to be discharged on TPN. O: Most Recent Labs: Recent Labs 07/05/25 1702 07/10/25 0610 WBC 7.8 6.8 HGB 12.2 9.9* HCT 37.0 30.9* PLT 319 219 Recent Labs 07/07/25 0819 07/08/25 0515 07/09/25 0616 07/10/25 0610 NA -- 139 141 139 K -- 4.8 4.7 4.4 CL -- 106 107 107 CO2 -- 31* 27 24 CALCIUM -- 8.4* 8.4* 8.1* CAIONIZED 1.15 -- -- -- BUN -- 9 11 12 CREATININE -- 0.79 0.76 0.70 GLU -- 97 92 126* Recent Labs 07/05/25 17007/06/25 0505 07/07/25 0552 07/08/25 0515 07/09/25 0616 07/10/25 0610 ALKPHOS 127* 100 -- -- -- 132* MG 1.9 2.0 < > 2.1 1.9 1.8 PHOS 3.3 4.4 < > 3.6 4.4 4.1 PREALBUMIN 14.5* -- -- -- -- 10.4* < > = values in this interval not displayed. Recent Labs 07/05/25 17007/06/25 0505 07/10/25 0610 ALT 7 6 9 AST 20 18 16 BILIDIR <0.2 <0.2 <0.2 LABBILI 0.3 0.2 <0.2* Recent Labs 07/05/25 17007/10/25 0610 TRIG 61 59 73 Recent Labs 07/05/25 1701 07/10/25 0610 INR 1.06 1.09 LABPT 12.2 12.5 Weight: 141 lb 11.2 oz (64.3 kg) A/P: Day 6 of TPN. Fingerstick blood glucose readings have been WNL. Physician orders and progress notes reviewed. TPN formula: High Protein (150g CHO/L, 50g protein/L) TPN lipids: 50g daily TPN rate: 70 mL/hour (at goal) Additional IV fluids: none Electrolytes have been stable. Will continue TPN electrolytes/additives with Clinimix-E Electrolytes/Additives: Sodium Chloride 10 mEq/L Sodium Acetate Trihydrate 25 mEq/L Potassium Phosphate 15 mmol/L (30 mEq K+) Calcium Chloride 4.5 mEq/L Magnesium Chloride 5 mEq/L MVI 10 mL/bag Trace Elements 1 mL/bag Pharmacy will follow patient and adjust electrolytes. Graham Moe, PharmD * Abelino Caledron MD - 07/11/2025 9:11 AM EST Images from the original note were not included. 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 This is most likely the site of the gastro-jejunostomy. This could not be traversed with the scope. Performed forceps biopsies in the stomach to rule out H. pylori. The esophagus appeared normal. GI Recommendation Neg for H pylori Pantoprazole 40mg BID Sucralfate QID I do not expect patient to be able to tolerate solid food. She will need a surgical J tube or TPN. -- Pathology: A. Gastric biopsies: - Gastric body type mucosa with mild chronic inflammation. - Negative for H. pylori organisms on H&E stained slides. -- started on TPN per general surgery recommendations - high risk treatment monitoring for line infection, bacteremia, glucose and electrolyte abnormalities and hepatic dysfunction. -- recommend tobacco and cannabis cessation -- considerations for surgical revision or reversal once off tobacco and cannabis for 2 months and nutritional status improves. -- pain controlled. -- Right upper arm to right neck pain 07/09 -- CXR, personally reviewed: No acute finding. Right PICC line with tip somewhat obscured although overlying the mid to lower SVC. -- Venous duplex of RUE negative for DVT but with evidence of acute partially- occlusive superficialvein thrombosis of the basilic vein in zones 1 to 5. 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 Continued -- psychiatry consulted -- more anxiety issues - psychiatry re-consulted. Suicidal ideations -- Psychiatry consulted -- Suicide precautions -- Improved. No current suicidal ideations or Intent. -- CBO and suicide precautions discontinued. -- Still feels very anxious and depressed and asking to see psych Anorexia -- Psychiatry and GI consulted -- EGD findings as noted above Cannabis dependence (HCC) -- Advised to stop Other chest pain -- cardiology consulted -- [place] to be atypical for CAD -- Suspect GI related -- If echocardiogram unremarkable, no further cardiac workup recommended -- Echocardiogram: * Left ventricular chamber dimension is normal. * Left ventricular function is normal with an estimated ejection fraction of 55-60%. * Left ventricular segmental wall motion is normal. * The left ventricular diastolic function is normal. * Right ventricular systolic function is normal. * Estimated pulmonary artery systolic pressure is 31 mmHg. 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 -- 07/10/2025 no acute issues Nicotine dependence -- Affecting all aspects of patient's health and care -- Nicotine replacement patch. Patient discontinued. Underweight Moderate protein-calorie malnutrition -- Affecting all aspects of patient's health and care Evidence Supported Malnutrition Diagnosis: Moderate protein-calorie malnutrition Starvation Related (Social/Environmental) Indicators: moderate fat depletion; mild muscle mass depletion; < or equal to 50% energy intake compared to estimate energy needs for > or equal to 1 month (additional indicators, BMI @18.2 and @ 84% of IBW) Meals and Snacks: Full Liquid (no carbonated beverages) Parenteral Nutrition/IV Fluids: Continue Clinimix /15 @ 70 ml/hr with daily lipids= 84 g protein, 1693 kcal, 252 g carb, 3.1 mg carb/kg/min. [id number]% of protein needs and low range of calorie needs. Oral intake is dependent on pts pain, therefore any oral intake is a bonus. Medical Food Supplements: Glucerna Therapeutic; Beneprotein Vitamin and Mineral Supplements: Calcium; Vitamin D; Sodium; Chloride (Clinimix E) Nutrition-Related Medication Management: Protonix Collaboration And Referral Of Nutrition Care: Collaboration with other providers (GINA, RN, Pharmacist) -- B12 and folate wnl. Iron normal. Transferrin sat low, TIBC wnl. Mag wnl. Phos wnl. 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 Completed -- improving History of endometrial cancer d Vitamin D insufficiency -- Vitamin D supplementation Superficial thrombophlebitis of right upper extremity -- right arm pain, in setting of picc caroline e -- acute partially-occlusive superficial vein thrombosis of the basilic vein in zones 1 to 5. Left leg pain -- Venous duplex of left lower extremity neg for DVT Dispo: TBD VTE Prophylaxis: Qualifying Pharmacologic Prophylaxis enoxaparin (LOVENOX) injection 40 mg DAILY - LMWH/Xa Active Hospital Problems Diagnosis *Generalized abdominal pain Superficial thrombophlebitis of right upper extremity Left leg pain Acute reaction to situational stress Vitamin D insufficiency Borderline personality disorder (HCC) Underweight Moderate protein-calorie malnutrition Dental infection Persistent recurrent vomiting History of endometrial cancer History of gastric bypass History of pulmonary embolism Cannabis dependence (HCC) Other chest pain Cardiac murmur History of chronic CHF Abdominal pain Suicidal ideations Paroxysmal atrial fibrillation (HCC) Chronic idiopathic constipation Chronic nausea Anorexia Estevan-Danlos disease Generalized anxiety disorder GERD (gastroesophageal reflux disease) History of DVT (deep vein thrombosis) HTN (hypertension) Iron deficiency anemia Peptic ulcer disease Acute exacerbation of chronic abdominal pain Chronic pain Insomnia due to mental disorder Major depressive disorder, recurrent, moderate (HCC) Nicotine dependence Chronic low back pain Adjustment disorder with mixed anxiety and depressed mood Subjective: Anxious - nervous - asking to see psych today Objective: BP 100/68 (BP Location: Left arm, Patient Position: Sitting) Pulse 72 Temp 98 ??F (36.7 ??C) (Oral) Resp 16 Ht 5' 9 (1.753 m) Wt 141 lb 11.2 oz (64.3 kg) SpO2 99% BMI 20.93 kg/m?? I/O last 3 completed shifts: In: 4245.3 [P.O.:2460; I.V.:243] Out: - Weight: 141 lb 11.2 oz (64.3 kg) Constitutional: Alert and oriented to person, place, and time. No distress. Cardiovascular: Normal rate and regular rhythm. Exam reveals no friction rub. No murmur heard. Pulmonary/Chest: Effort normal and breath sounds normal. No respiratory distress. There are no wheezes. Abdominal: Soft. Bowel sounds are normal. No distension. There is no tenderness. There is no rebound and no guarding. Musculoskeletal: No edema. Neurological: Grossly normal. Skin: Skin is warm and dry. No erythema. Labs: Laboratory data and diagnostic testing reviewed 07/11/25. Lab Results Procedure Component Value Units Date/Time Prealbumin [[id number]] (Abnormal) Collected: 07/10/25609 Order Status: Completed Specimen: Blood, Venous Updated: 07/10/25 1420 Prealbumin 10.4 mg/dL Triglycerides [[id number]] (Normal) Collected: 07/10/25609 Order Status: Completed Specimen: Blood, Venous Updated: 07/10/25 0945 Triglyceride 73 mg/dL Basic Metabolic Panel [[id number]] (Abnormal) Collected: 07/10/25609 Order Status: Completed Specimen: Blood, Venous Updated: 07/10/25 0637 Sodium 139 mmol/L Potassium 4.4 mmol/L Chloride 107 mmol/L Total CO2 24 mmol/L Anion Gap 8 mmol/L Calcium 8.1 mg/dL Glucose Lvl 126 mg/dL BUN 12 mg/dL Creatinine 0.70 mg/dL eGFR (CKD-EPIcr 2020) 110 mL/min/1.73 m2 Hepatic Function Panel [[id number]] (Abnormal) Collected: 07/10/25609 Order Status: Completed Specimen: Blood, Venous Updated: 07/10/25 0637 Total Protein 6.1 gm/dL Albumin 3.2 gm/dL Bili Direct <0.2 mg/dL Bili Total <0.2 mg/dL AST 16 U/L ALT 9 U/L Alk Phos 132 U/L Phosphorus Level [[id number]] (Normal) Collected: 07/10/25609 Order Status: Completed Specimen: Blood, Venous Updated: 07/10/25636 Phosphorus 4.1 mg/dL Magnesium Level [[id number]] (Normal) Collected: 07/10/25609 Order Status: Completed Specimen: Blood, Venous Updated: 07/10/25636 Magnesium 1.8 mg/dL PT/INR [[id number]] (Normal) Collected: 07/10/25609 Order Status: Completed Specimen: Blood, Venous Updated: 07/10/25628 PT 12.5 second(s) INR 1.09 (ratio) Partial Thromboplastin Time [[id number]] (Normal) Collected: 07/10/25609 Order Status: Completed Specimen: Blood, Venous Updated: 07/10/25628 PTT 33.3 second(s) CBC [[id number]] (Abnormal) Collected: 07/10/25609 Order Status: Completed Specimen: Blood, Venous Updated: 07/10/25617 WBC 6.8 x10(3)/mcL RBC 3.38 x10(6)/mcL Hgb 9.9 g/dL Hct 30.9 % MCV 91.4 fL MCH 29.3 pg MCHC 32.0 g/dL RDW 13.4 % Platelet 219 x10(3)/mcL MPV 9.3 fL Abelino Calderon MD 07/11/2025 9:11 AM * Bradford Sauceda MD - 07/11/2025 12:02 AM ESTAssociated Problem(s): Paroxysmal atrial fibrillation (HCC) -- history not clear -- not on any meds -- 07/10/2025 appears regular * Bradford Sauceda MD - 07/11/2025 12:02 AM ESTAssociated Problem(s): HTN (hypertension) -- not on any meds 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 -- 07/10/2025 no acute issues * Bradford Sauceda MD - 07/11/2025 12:02 AM ESTAssociated Problem(s): Underweight -- Affecting all aspects of patient's health and care Evidence Supported Malnutrition Diagnosis: Moderate protein-calorie malnutrition Starvation Related (Social/Environmental) Indicators: moderate fat depletion; mild muscle mass depletion; < or equal to 50% energy intake compared to estimate energy needs for > or equal to 1 month (additional indicators, BMI @18.2 and @ 84% of IBW) Meals and Snacks: Full Liquid (no carbonated beverages) Parenteral Nutrition/IV Fluids: Continue Clinimix 5/15 @ 70 ml/hr with daily lipids= 84 g protein, 1693 kcal, 252 g carb, 3.1 mg carb/kg/min. [id number]% of protein needs and low range of calorie needs. Oral intake is dependent on pts pain, therefore any oral intake is a bonus. Medical Food Supplements: Glucerna Therapeutic; Beneprotein Vitamin and Mineral Supplements: Calcium; Vitamin D; Sodium; Chloride (Clinimix E) Nutrition-Related Medication Management: Protonix Collaboration And Referral Of Nutrition Care: Collaboration with other providers (NEWS CAMERAMAN, RN, Pharmacist) -- B12 and folate wnl. Iron normal. Transferrin sat low, TIBC wnl. Mag wnl. Phos wnl. Triglyceride 59 -- Prealbumin 14.7 -- TPN * Bradford Sauceda MD - 07/11/2025 12:02 AM ESTAssociated Problem(s): Moderate protein-calorie malnutrition -- Affecting all aspects of patient's health and care Evidence Supported Malnutrition Diagnosis: Moderate protein-calorie malnutrition Starvation Related (Social/Environmental) Indicators: moderate fat depletion; mild muscle mass depletion; < or equal to 50% energy intake compared to estimate energy needs for > or equal to 1 month (additional indicators, BMI @18.2 and @ 84% of IBW) Meals and Snacks: Full Liquid (no carbonated beverages) Parenteral Nutrition/IV Fluids: Continue Clinimix 5/15 @ 70 ml/hr with daily lipids= 84 g protein, 1693 kcal, 252 g carb, 3.1 mg carb/kg/min. [id number]% of protein needs and low range of calorie needs. Oral intake is dependent on pts pain, therefore any oral intake is a bonus. Medical Food Supplements: Glucerna Therapeutic; Beneprotein Vitamin and Mineral Supplements: Calcium; Vitamin D; Sodium; Chloride (Clinimix E) Nutrition-Related Medication Management: Protonix Collaboration And Referral Of Nutrition Care: Collaboration with other providers (GINA, RN, Pharmacist) -- B12 and folate wnl. Iron normal. Transferrin sat low, TIBC wnl. Mag wnl. Phos wnl. Triglyceride 59 -- Prealbumin 14.7 -- TPN * Bradford Sauceda MD - 07/11/2025 12:02 AM ESTAssociated Problem(s): History of endometrial cancer d * Bradford Sauceda MD - 07/11/2025 12:02 AM ESTAssociated Problem(s): Superficial thrombophlebitis of right upper extremity -- right arm pain, in setting of picc caroline e -- acute partially-occlusive superficial vein thrombosis of the basilic vein in zones 1 to 5. * Bradford Sauceda MD - 07/11/2025 12:02 AM ESTAssociated Problem(s): Left leg pain -- Venous duplex of left lower extremity: * Roxana Hodges - 07/10/2025 8:12 PM EST Images from the original note were not included. 07/10/251999 Reason for Visit Date of visit 07/10/25 Visited With Patient and family/visitors (Alexei accompanied by her mother) Visited By Resort Desk Clerk Reason for Visit Follow-up Patient Assessment Patient Appears Calm;Positive Interventions with Patient Relationship Building Interventions Provided hospitality Exploration Interventions Provided caring and supportive presence Care Plan Plan for Follow-Up Resort Desk Clerk(s) remains available as needed Roxana Hodges MDiv Resort Desk Clerk, Pastoral and Spiritual Care For non-urgent requests, please place a Pastoral Care consult in PSYCHIATRIC. For all urgent matters, please send an urgent [facility] Secure Chat to the Pastoral Care group at your location. Between 11pm and 7am, please use On-Call Finder to send an [facility] Secure Chat to the on-call slab conditioner supervisor. 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 This is most likely the site of the gastro-jejunostomy. This could not be traversed with the scope. Performed forceps biopsies in the stomach to rule out H. pylori. The esophagus appeared normal. GI Recommendation Await pathology results Pantoprazole 40mg BID Sucralfate QID I do not expect patient to be able to tolerate solid food. She will need a surgical J tube or TPN. -- Pathology: A. Gastric biopsies: - Gastric body type mucosa with mild chronic inflammation. - Negative for H. pylori organisms on H&E stained slides. -- started on TPN per general surgery recommendations - high risk treatment monitoring for line infection, bacteremia, glucose and electrolyte abnormalities and hepatic dysfunction. -- recommend tobacco and cannabis cessation -- considerations for surgical revision or reversal once off tobacco and cannabis for 2 months and nutritional status improves. -- pain controlled. -- Right upper arm to right neck pain 07/09 -- CXR, personally reviewed: No acute finding. Right PICC line with tip somewhat obscured although overlying the mid to lower SVC. -- Venous duplex of RUE negative for DVT but with evidence of acute partially- occlusive superficialvein thrombosis of the basilic vein in zones 1 to 5. 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 This is most likely the site of the gastro-jejunostomy. This could not be traversed with the scope. Performed forceps biopsies in the stomach to rule out H. pylori. The esophagus appeared normal. GI Recommendation Await pathology results Pantoprazole 40mg BID Sucralfate QID I do not expect patient to be able to tolerate solid food. She will need a surgical J tube or TPN. -- Pathology: A. Gastric biopsies: - Gastric body type mucosa with mild chronic inflammation. - Negative for H. pylori organisms on H&E stained slides. -- started on TPN per general surgery recommendations - high risk treatment monitoring for line infection, bacteremia, glucose and electrolyte abnormalities and hepatic dysfunction. -- recommend tobacco and cannabis cessation -- considerations for surgical revision or reversal once off tobacco and cannabis for 2 months and nutritional status improves. -- pain controlled. -- Right upper arm to right neck pain 07/09 -- CXR, personally reviewed: No acute finding. Right PICC line with tip somewhat obscured although overlying the mid to lower SVC. -- Venous duplex of RUE negative for DVT but with evidence of acute partially- occlusive superficialvein thrombosis of the basilic vein in zones 1 to 5. 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 This is most likely the site of the gastro-jejunostomy. This could not be traversed with the scope. Performed forceps biopsies in the stomach to rule out H. pylori. The esophagus appeared normal. GI Recommendation Await pathology results Pantoprazole 40mg BID Sucralfate QID I do not expect patient to be able to tolerate solid food. She will need a surgical J tube or TPN. -- Pathology: A. Gastric biopsies: - Gastric body type mucosa with mild chronic inflammation. - Negative for H. pylori organisms on H&E stained slides. -- started on TPN per general surgery recommendations - high risk treatment monitoring for line infection, bacteremia, glucose and electrolyte abnormalities and hepatic dysfunction. -- recommend tobacco and cannabis cessation -- considerations for surgical revision or reversal once off tobacco and cannabis for 2 months and nutritional status improves. -- pain controlled. -- Right upper arm to right neck pain 07/09 -- CXR, personally reviewed: No acute finding. Right PICC line with tip somewhat obscured although overlying the mid to lower SVC. -- Venous duplex of RUE negative for DVT but with evidence of acute partially- occlusive superficialvein thrombosis of the basilic vein in zones 1 to 5. 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 This is most likely the site of the gastro-jejunostomy. This could not be traversed with the scope. Performed forceps biopsies in the stomach to rule out H. pylori. The esophagus appeared normal. GI Recommendation Await pathology results Pantoprazole 40mg BID Sucralfate QID I do not expect patient to be able to tolerate solid food. She will need a surgical J tube or TPN. -- Pathology: A. Gastric biopsies: - Gastric body type mucosa with mild chronic inflammation. - Negative for H. pylori organisms on H&E stained slides. -- started on TPN per general surgery recommendations - high risk treatment monitoring for line infection, bacteremia, glucose and electrolyte abnormalities and hepatic dysfunction. -- recommend tobacco and cannabis cessation -- considerations for surgical revision or reversal once off tobacco and cannabis for 2 months and nutritional status improves. -- pain controlled. -- Right upper arm to right neck pain 07/09 -- CXR, personally reviewed: No acute finding. Right PICC line with tip somewhat obscured although overlying the mid to lower SVC. -- Venous duplex of RUE negative for DVT but with evidence of acute partially- occlusive superficialvein thrombosis of the basilic vein in zones 1 to 5. 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 This is most likely the site of the gastro-jejunostomy. This could not be traversed with the scope. Performed forceps biopsies in the stomach to rule out H. pylori. The esophagus appeared normal. GI Recommendation Await pathology results Pantoprazole 40mg BID Sucralfate QID I do not expect patient to be able to tolerate solid food. She will need a surgical J tube or TPN. -- Pathology: A. Gastric biopsies: - Gastric body type mucosa with mild chronic inflammation. - Negative for H. pylori organisms on H&E stained slides. -- started on TPN per general surgery recommendations - high risk treatment monitoring for line infection, bacteremia, glucose and electrolyte abnormalities and hepatic dysfunction. -- recommend tobacco and cannabis cessation -- considerations for surgical revision or reversal once off tobacco and cannabis for 2 months and nutritional status improves. -- pain controlled. -- Right upper arm to right neck pain 07/09 -- CXR, personally reviewed: No acute finding. Right PICC line with tip somewhat obscured although overlying the mid to lower SVC. -- Venous duplex of RUE negative for DVT but with evidence of acute partially- occlusive superficialvein thrombosis of the basilic vein in zones 1 to 5. * Bradford Sauceda MD - 07/10/2025 4:36 PM ESTAssociated Problem(s): Peptic ulcer disease -- OTC PPI 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 This is most likely the site of the gastro-jejunostomy. This could not be traversed with the scope. Performed forceps biopsies in the stomach to rule out H. pylori. The esophagus appeared normal. GI Recommendation Await pathology results Pantoprazole 40mg BID Sucralfate QID I do not expect patient to be able to tolerate solid food. She will need a surgical J tube or TPN. -- Pathology: A. Gastric biopsies: - Gastric body type mucosa with mild chronic inflammation. - Negative for H. pylori organisms on H&E stained slides. -- started on TPN per general surgery recommendations - high risk treatment monitoring for line infection, bacteremia, glucose and electrolyte abnormalities and hepatic dysfunction. -- recommend tobacco and cannabis cessation -- considerations for surgical revision or reversal once off tobacco and cannabis for 2 months and nutritional status improves. -- pain controlled. -- Right upper arm to right neck pain 07/09 -- CXR, personally reviewed: No acute finding. Right PICC line with tip somewhat obscured although overlying the mid to lower SVC. -- Venous duplex of RUE negative for DVT but with evidence of acute partially- occlusive superficialvein thrombosis of the basilic vein in zones 1 to 5. 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 This is most likely the site of the gastro-jejunostomy. This could not be traversed with the scope. Performed forceps biopsies in the stomach to rule out H. pylori. The esophagus appeared normal. GI Recommendation Await pathology results Pantoprazole 40mg BID Sucralfate QID I do not expect patient to be able to tolerate solid food. She will need a surgical J tube or TPN. -- Pathology: A. Gastric biopsies: - Gastric body type mucosa with mild chronic inflammation. - Negative for H. pylori organisms on H&E stained slides. -- started on TPN per general surgery recommendations - high risk treatment monitoring for line infection, bacteremia, glucose and electrolyte abnormalities and hepatic dysfunction. -- recommend tobacco and cannabis cessation -- considerations for surgical revision or reversal once off tobacco and cannabis for 2 months and nutritional status improves. -- pain controlled. -- Right upper arm to right neck pain 07/09 -- CXR, personally reviewed: No acute finding. Right PICC line with tip somewhat obscured although overlying the mid to lower SVC. -- Venous duplex of RUE negative for DVT but with evidence of acute partially- occlusive superficialvein thrombosis of the basilic vein in zones 1 to 5. * Bradford Sauceda MD - 07/10/2025 2:25 PM ESTAssociated Problem(s): Chronic idiopathic constipation -- GI consulted -- Bowel regimen -- BM-07/08/2020 * Bradford Sauceda MD - 07/10/2025 2:25 PM ESTAssociated Problem(s): Generalized anxiety disorder -- Ativan, Vistaril, Seroquel 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 Continued -- psychiatry consulted -- more anxiety issues - psychiatry re-consulted. * Bradford Sauceda MD - 07/10/2025 2:25 PM ESTAssociated Problem(s): Major depressive disorder, recurrent, moderate (HCC) -- AtivanAlicial, Seroquel 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 Continued -- psychiatry consulted -- more anxiety issues - psychiatry re-consulted. * Bradford Sauceda MD - 07/10/2025 2:25 PM ESTAssociated Problem(s): Insomnia due to mental disorder -- Ativan, Vistaril, Seroquel 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 Continued -- psychiatry consulted -- more anxiety issues - psychiatry re-consulted. * Bradford Sauceda MD - 07/10/2025 2:25 PM ESTAssociated Problem(s): Adjustment disorder with mixed anxiety and depressed mood -- Ativan, Vistaril, Seroquel 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 Continued -- psychiatry consulted -- more anxiety issues - psychiatry re-consulted. * Bradford Sauceda MD - 07/10/2025 2:25 PM ESTAssociated Problem(s): Acute reaction to situational stress -- Ativan, Alicial, Seroquel 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 Continued -- psychiatry consulted -- more anxiety issues - psychiatry re-consulted. * Bradford Sauceda MD - 07/10/2025 2:25 PM ESTAssociated Problem(s): Borderline personality disorder (HCC) -- Ativan, Alicial, Seroquel 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 Continued -- psychiatry consulted -- more anxiety issues - psychiatry re-consulted. * Bradford Sauceda MD - 07/10/2025 2:25 PM ESTAssociated Problem(s): Suicidal ideations -- Psychiatry consulted -- Suicide precautions -- Improved. No current suicidal ideations or Intent. -- CBO and suicide precautions discontinued. -- To follow-up outpatient with her mental health providers * Bradford Sauceda MD - 07/10/2025 2:25 PM ESTAssociated Problem(s): Anorexia -- Psychiatry and GI consulted -- EGD findings as noted above * Bradford Sauceda MD - 07/10/2025 2:25 PM ESTAssociated Problem(s): Cannabis dependence (HCC) -- Advised to stop * Bradford Sauceda MD - 07/10/2025 2:25 PM ESTAssociated Problem(s): Other chest pain -- cardiology consulted -- [place] to be atypical for CAD -- Suspect GI related -- If echocardiogram unremarkable, no further cardiac workup recommended -- Echocardiogram: * Left ventricular chamber dimension is normal. * Left ventricular function is normal with an estimated ejection fraction of 55-60%. * Left ventricular segmental wall motion is normal. * The left ventricular diastolic function is normal. * Right ventricular systolic function is normal. * Estimated pulmonary artery systolic pressure is 31 mmHg. * Bradford Sauceda MD - 07/10/2025 2:25 PM ESTAssociated Problem(s): History of DVT (deep vein thrombosis) -- appears to be provoked -- no longer on anticoagulation * Bradford Sauceda MD - 07/10/2025 2:25 PM ESTAssociated Problem(s): History of pulmonary embolism -- appears to be provoked -- no longer on anticoagulation * Bradford Sauceda MD - 07/10/2025 2:25 PM ESTAssociated Problem(s): Iron deficiency anemia -- Hemoglobin normal. MCV low * Bradford Sauceda MD - 07/10/2025 2:25 PM ESTAssociated Problem(s): Chronic low back pain Chronic abdominal pain -- Lyrica 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 Continued -- Pain controlled with meds * Bradford Sauceda MD - 07/10/2025 2:25 PM ESTAssociated Problem(s): Chronic pain Chronic abdominal pain -- Lyrica 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 Continued -- Pain controlled with meds * Bradford Sauceda MD - 07/10/2025 2:25 PM ESTAssociated Problem(s): Cardiac murmur -- Echo as noted above * Bradford Sauceda MD - 07/10/2025 2:25 PM ESTAssociated Problem(s): Nicotine dependence -- Affecting all aspects of patient's health and care -- Nicotine replacement patch. Patient discontinued. * Bradford Sauceda MD - 07/10/2025 2:25 PM ESTAssociated Problem(s): Dental infection -- Augmentin 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 Continued -- improving * Bradford Sauceda MD - 07/10/2025 2:25 PM ESTAssociated Problem(s): Vitamin D insufficiency -- Vitamin D supplementation * Maureen Mcleod, GERONIMO,LD - 07/10/2025 1:29 PM EST [facility] Nutrition Malnutrition Reassessment Evidence Supported Malnutrition Diagnosis: Moderate protein-calorie malnutrition In the context of: Starvation Related (Social/Environmental) Indicators: moderate fat depletion, mild muscle mass depletion, < or equal to 50% energy intake compared to estimate energy needs for > or equal to 1 month (additional indicators, BMI @18.2 and @ 84% of IBW) Nutrition Problem/Diagnosis: Nutrition Diagnosis Problem 1: Moderate starvation related malnutrition related to psychological cause or life stress, altered GI function as evidenced by intake 0-25%, new medical diagnosis or change in existing diagnosis or condition. Status: Active nutrition diagnosis Nutrition Prescription: Kcals: 3728-2016 kcal (30-35 kcal/55.9 kg) Protein (g): 67-84 Protein needs based on: 1.2-1.5 g Pro/55.9 kg Fluid (ml): 1 ml/kcal or per MD Other (comment): reviewed 07/10 Plan/Interventions: Meals and Snacks: Full Liquid (no carbonated beverages) Parenteral Nutrition/IV Fluids: Continue Clinimix 5/15 @ 70 ml/hr with daily lipids= 84 g protein, 1693 kcal, 252 g carb, 3.1 mg carb/kg/min. [id number]% of protein needs and low range of calorie needs. Oral intake is dependent on pts pain, therefore any oral intake is a bonus. Medical Food/Supplement Freq: Pt to request as desired Vitamin and Mineral Supplements: Calcium, Vitamin D, Sodium, Chloride (Clinimix E) Nutrition-Related Medication Management: Protonix Nutrition Education: Supplements, TPN, Importance of nutrition to healing and recovery Collaboration And Referral Of Nutrition Care: Collaboration with other providers (NEWS CAMERAMAN, RN, Pharmacist) Nutrition Discharge Instructions: Home TPN (total parenteral nutrition) and oral diet as tolerated.Recommend continue strawberry Glucerna and protein poweder of choice as tolerated Alexei Macias is a 40 y.o. female patient. Admit Diagnosis: Abdominal pain [R10.9] Anorexia [R63.0] Reason For Assessment: Parenteral nutrition Subjective: Subjective Comment: Pt seen. Has been refusing Ensure, Glucerna and Beneprotein. States I do really well with the chicken broth . Any oral intake is a bonus and helpful to maintain gut integrity. Will cancel oral supplements per pt request. Pt state If I think my stomach can handle it, I'll just ask for them . TPN as ordered remains appropriate. Anthropometric Measurements: Height: 5' 9 (175.3 cm) Weight: 141 lb 11.2 oz (64.3 kg) (Seems out her norm. Weighed 123# yesterday.) BMI (Calculated): 20.93 Food/Nutrition Related History: Dietary Orders Ordered Full Liquid Diet Fluid Restriction(ml/24hr): No Carbonated Beverage DIET EFFECTIVE NOW 07/05/25 1531 TPN Orders TPN ADULT w/ Electrolytes (Clinimix-E) DAILY 6PM Admin Instructions: This bag delivers the components listed below over 24 hours based on an infusion rate of 70 ml/hour. 84 grams/day Amino Acids 252 grams/day Dextrose 16.8 mEq/day Sodium Chloride 42 mEq/day Sodium Acetate Trihydrate 25.2 mmol/day Potassium Phosphate 7.6 mEq/day Calcium Chloride 8.4 mEq/day Magnesium Chloride 10 mL/day MVI (Multivitamin) 1 mL/day Trace Elements *Central Line Use Only* Use ONLY pharmacy supplied tubing and filter. Do not use extension sets longer than 7 inches.Infusion requires use of filter. For non-lipid days, utilize 0.22 micron filter set. Refer to Clinical Skills for additional information. Upon discontinuation of the TPN, ramp down the rate as follows: Decrease TPN rate by 50% for the first hour, then decrease rate again by 50% for the second hour,then discontinue TPN. If TPN rate is less than 25 mL/hr when ordered to be discontinued, then discontinue TPN without the taper. Check blood sugar at third hour after TPN discontinuation. VESICANT Electronically Signed By: Stephanie Adamson APRN [ ] BENEPROTEIN powder oral supplement 2 Packet Oral BID with Meals 2 Packet at 07/10/25 0900 GLUCERNA Therapeutic oral supplement 1 'box' Oral TID with Meals 1 'box' at 07/10/25 0900 Food Insecurity Within the past 12 months, you worried that your food would run out before you got the money to buymore.: Often true Within the past 12 months, the food you bought just didn't last and you didn't have money to get more.: Often true % Avg Meals Consumed: (last documented intake as 2 pudding on 07/07, reports taking broth daily) Supplement Acceptance: Declining, Will request as desired. Refused all Ensure high protein, refused4 of 10 Glucerna and 5 of 8 beneprotein TPN?: Yes Formula: Clinimix 15 Rate: 70 TPN Received (ml): 1093.1 ml % of TPN Goal Rate Met: 65 % Lipids Freq - 250ml: Daily Nutrition Focused Physical Findings: LDAs- Active NG/OG/NJ,Wound,Pressure Injury,or Drain None I/O last 3 completed shifts: In: 2129.2 [P.O.:934; I.V.:102] Out: - Edema:Right Lower Extremity Edema: Non-pitting Left Lower Extremity Edema: Non-pitting Abdomen: Abdominal/GI Abdomen Inspection: Flat, Soft Bowel Sounds (All Quadrants): Active Abdominal palpation: Tenderness Diarrhea: Yes When was last BM? (Date): 07/08/25 Stool Assessment: Stool Occurrence: 3 Stool Appearance: Type 5 [place] Stool Chart Stool Color: Brown Stool Amount: Medium Biochemical Data/Medical Tests: Pertinent Labs: gluc 126, H/H 9.9/30.9, Clinical Course: Clinical Course: Admitted d/t Chronic CP and epigastric pain.Surgery, GI, Cardiology and Psych consulted. Chronic Nausea, PUD, Recurrent vomiting. Chronic idiopathic [id number] EGD-MD notes will need a surgical J tube or TPN. 07/06 start TPN, 07/07 advance to goal feed 07/08 addition of lipids-TPN meeting 100%needs. Care coordination working on d/c plan * Bradford Sauceda MD - 07/10/2025 1:12 PM EST Images from the original note were not included. PROGRESS NOTE Admitted with: 07/03* Generalized abdominal pain, nausea, vomiting, and anorexia. History of bariatric surgery at outside hospital. Admitted here from [facility] ED. Bariatric surgery GI consulted. EGD show significant ulcerated fibrotic stricture in the gastric pouch, most likely the site of the gastrojejunostomy. Patient started on TPN. To be considered for revision or reversal if she nutritionally improves with TPN and she has been off of tobacco/marijuana for 2 months. Ariadne is working on arrangements for TPN ischemic challenge. Developed superficial thrombophlebitis of the right arm. Psychiatry also was consulted for suicidal ideation with plans that she relates to the severityof her abdominal pains. Hx of depression and anxiety and borderline personality disorder. EDOD: Not Ready for Discharge because: Need for ongoing medical management, arrangement for TPN. 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 This is most likely the site of the gastro-jejunostomy. This could not be traversed with the scope. Performed forceps biopsies in the stomach to rule out H. pylori. The esophagus appeared normal. GI Recommendation Await pathology results Pantoprazole 40mg BID Sucralfate QID I do not expect patient to be able to tolerate solid food. She will need a surgical J tube or TPN. -- Pathology: A. Gastric biopsies: - Gastric body type mucosa with mild chronic inflammation. - Negative for H. pylori organisms on H&E stained slides. -- started on TPN per general surgery recommendations - high risk treatment monitoring for line infection, bacteremia, glucose and electrolyte abnormalities and hepatic dysfunction. -- recommend tobacco and cannabis cessation -- considerations for surgical revision or reversal once off tobacco and cannabis for 2 months and nutritional status improves. -- pain controlled. -- Right upper arm to right neck pain 07/09 -- CXR, personally reviewed: No acute finding. Right PICC line with tip somewhat obscured although overlying the mid to lower SVC. -- Venous duplex of RUE negative for DVT but with evidence of acute partially- occlusive superficialvein thrombosis of the basilic vein in zones 1 to 5. Chronic idiopathic constipation -- GI consulted -- Bowel regimen -- BM-07/08/2020 Generalized anxiety disorder Major depressive disorder, recurrent, moderate (HCC) Insomnia due to mental disorder Adjustment disorder with mixed anxiety and depressed mood Acute reaction to situational stress Borderline personality disorder (HCC) -- Ativan, Vistaril, Seroquel 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 Continued -- psychiatry consulted -- more anxiety issues - psychiatry re-consulted. Suicidal ideations -- Psychiatry consulted -- Suicide precautions -- Improved. No current suicidal ideations or Intent. -- CBO and suicide precautions discontinued. -- To follow-up outpatient with her mental health providers Anorexia -- Psychiatry and GI consulted -- EGD findings as noted above Cannabis dependence (HCC) -- Advised to stop Other chest pain -- cardiology consulted -- [place] to be atypical for CAD -- Suspect GI related -- If echocardiogram unremarkable, no further cardiac workup recommended -- Echocardiogram: * Left ventricular chamber dimension is normal. * Left ventricular function is normal with an estimated ejection fraction of 55-60%. * Left ventricular segmental wall motion is normal. * The left ventricular diastolic function is normal. * Right ventricular systolic function is normal. * Estimated pulmonary artery systolic pressure is 31 mmHg. 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 -- 07/10/2025 no acute issues Nicotine dependence -- Affecting all aspects of patient's health and care -- Nicotine replacement patch. Patient discontinued. Underweight Moderate protein-calorie malnutrition -- Affecting all aspects of patient's health and care Evidence Supported Malnutrition Diagnosis: Moderate protein-calorie malnutrition Starvation Related (Social/Environmental) Indicators: moderate fat depletion; mild muscle mass depletion; < or equal to 50% energy intake compared to estimate energy needs for > or equal to 1 month (additional indicators, BMI @18.2 and @ 84% of IBW) Meals and Snacks: Full Liquid (no carbonated beverages) Parenteral Nutrition/IV Fluids: Continue Clinimix 5/15 @ 70 ml/hr with daily lipids= 84 g protein, 1693 kcal, 252 g carb, 3.1 mg carb/kg/min. [id number]% of protein needs and low range of calorie needs. Oral intake is dependent on pts pain, therefore any oral intake is a bonus. Medical Food Supplements: Glucerna Therapeutic; Beneprotein Vitamin and Mineral Supplements: Calcium; Vitamin D; Sodium; Chloride (Clinimix E) Nutrition-Related Medication Management: Protonix Collaboration And Referral Of Nutrition Care: Collaboration with other providers (NEWS CAMERAMAN, RN, Pharmacist) -- B12 and folate wnl. Iron normal. Transferrin sat low, TIBC wnl. Mag wnl. Phos wnl. 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 Continued -- improving History of endometrial cancer d Vitamin D insufficiency -- Vitamin D supplementation Superficial thrombophlebitis of right upper extremity -- right arm pain, in setting of picc caroline e -- acute partially-occlusive superficial vein thrombosis of the basilic vein in zones 1 to 5. Left leg pain -- Venous duplex of left lower extremity: ------ VTE Prophylaxis: Dietary Orders (From admission, onward) Ordered Full Liquid Diet Fluid Restriction(ml/24hr): No Carbonated Beverage DIET EFFECTIVE NOW Question: Fluid Restriction(ml/24hr): Answer: No Carbonated Beverage 07/05/25 3561 Plan: Discussed with staff--with RN, care conference with charge nurse, care coordination/ social serviceand clinical pharmacist Discussed with patient and her mother at bedside Initially was going to pull picc and place new. On discussion with VAT team, hospital protocol is to not remove picc unless there are significant signs or symptoms. Continue with above and current treatment plans and per recommendations by consultants evaluating patient, with additions and exceptions as noted above. Please refer to orders for complete details of patient's care plans Medically Ready for Discharge?: No EDOD: Not Ready for Discharge because: Needing ongoing medical management, needing TPN to be arranged forhome Active Hospital Problems Diagnosis *Generalized abdominal pain Acute reaction to situational stress Vitamin D insufficiency Borderline personality disorder (HCC) Underweight Moderate protein-calorie malnutrition Dental infection Persistent recurrent vomiting History of endometrial cancer History of gastric bypass History of pulmonary embolism Cannabis dependence (HCC) Other chest pain Cardiac murmur History of chronic CHF Abdominal pain Suicidal ideations Paroxysmal atrial fibrillation (HCC) Chronic idiopathic constipation Chronic nausea Anorexia Estevan-Danlos disease Generalized anxiety disorder GERD (gastroesophageal reflux disease) History of DVT (deep vein thrombosis) HTN (hypertension) Iron deficiency anemia Peptic ulcer disease Acute exacerbation of chronic abdominal pain Chronic pain Insomnia due to mental disorder Major depressive disorder, recurrent, moderate (HCC) Nicotine dependence Chronic low back pain Adjustment disorder with mixed anxiety and depressed mood CC / HPI: Alexei Macias is a(n)40 y.o. female admitted for work-up and treatment for No chief complaint on file. Generalized abdominal pain Subjective: Right arm pain some better today. Complains of having some leg swelling, especially on the right. Concern for DVT. ROS: No chest pain or shortness of breath. Medications reviewed: amoxicillin-clavulanate 1 Tablet Oral BID BENEPROTEIN powder 2 Packet Oral BID with Meals calcium gluconate in NaCl, iso-osm 1 g Intravenous Once cholecalciferol (vitamin D3) 1,000 Units Oral Daily estradioL 4 g Vaginal Once per day on Thursday fat emulsion 250 mL Intravenous Daily flu vac triv (PF) 0.5 mL Intramuscular ONCE GLUCERNA Therapeutic 1 'box' Oral TID with Meals mupirocin Nasal BID pantoprazole 40 mg Oral BID polyethylene glycol 17 g Oral BID pregabalin 200 mg Oral BID QUEtiapine 100 mg Oral Nightly And QUEtiapine 50 mg Oral Daily sodium chloride 0.9% 10 mL Intravenous 3 times per day TPN ADULT w/ Electrolytes (Clinimix-E) 70 mL/hr at 07/10/25 0804 acetaminophen, alteplase, bisacodyL, hydrOXYzine, LORazepam, ondansetron OR ondansetron, oxyCODONE, QUEtiapine, sodium chloride 0.9%, sodium chloride 0.9% Objective: Patient Vitals for the past 24 hrs: BP Temp Temp src Pulse Resp SpO2 Weight 07/10/25 0826 95/56 97.7 ??F (36.5 ??C) Oral 80 16 100 % -- 07/10/25 0635 -- -- -- -- -- -- 141 lb 11.2 oz (64.3 kg) 07/09/25 2140 -- -- -- -- -- -- 123 lb 0.3 oz (55.8 kg) 07/09/25 2031 96/50 98.1 ??F (36.7 ??C) Oral 84 16 99 % -- 07/09/25 1426 91/57 -- -- 81 16 99 % -- Physical Exam: General Alert, NAD Psych Normal mood and affect Neck Supple Respiratory Respirations easy, CTA, =BS, good AM Cardiac RRR Abdominal +BS, Soft, ND, mild mid to epigastric tenderness Musculoskeletal 1+ edema. No calf tenderness. Left leg without erythema or warmth. Neurologic Oriented Lymph Skin Data reviewed: Recent Labs 07/04/25 0548 07/04/25 0548 07/04/25 0936 07/05/25 1701 07/05/25 1702 07/06/25 0505 07/07/25 0552 07/08/25 0515 07/09/25 0616 07/10/25 0610 WBC 7.9 -- -- -- 7.8 -- -- -- -- 6.8 HGB 10.4* -- -- -- 12.2 -- -- -- -- 9.9* HCT 31.6* -- -- -- 37.0 -- -- -- -- 30.9* MCV 88.8 -- -- -- 87.9 -- -- -- -- 91.4 PLT 283 -- -- -- 319 -- -- -- -- 219 NA 143 -- -- -- 138 140 < > 139 141 139 K 4.4 -- -- -- 4.0 4.1 < > 4.8 4.7 4.4 CL 107 -- -- -- 100 103 < > 106 107 107 CO2 31* -- -- -- 28 28 < > 31* 27 24 BUN 10 -- -- -- 4* 5* < > 9 11 12 CREATININE 0.82 -- -- -- 0.76 0.79 < > 0.79 0.76 0.70 MG -- < > -- -- 1.9 2.0 < > 2.1 1.9 1.8 PREALBUMIN -- -- 14.7* -- 14.5* -- -- -- -- -- PROT 6.1* -- -- -- 7.6 6.0* -- -- -- 6.1* ALT 6 -- -- -- 7 6 -- -- -- 9 AST 15 -- -- -- 20 18 -- -- -- 16 ALKPHOS 100 -- -- -- 127* 100 -- -- -- 132* LABBILI 0.2 -- -- -- 0.3 0.2 -- -- -- <0.2* BILIDIR <0.2 -- -- -- <0.2 <0.2 -- -- -- <0.2 INR -- -- -- 1.06 -- -- -- -- -- 1.09 PTT -- -- -- 34.9 -- -- -- -- -- 33.3 < > = values in this interval not displayed. UT US UPPER EXTREMITY VENOUS RIGHT Result Date: 07/10/2025 Conclusions * No evidence of right upper extremity deep vein thrombosis. * Evidence of acute partially-occlusive superficial vein thrombosis of the basilic vein in zones 1 to 5. * No evidence of superficial thrombophlebitis detected in the right cephalic vein. * The contralateral left subclavian vein is widely patent and compressible. UT US LOWER EXTREMITY VENOUS LEFT Result Date: 07/10/2025 Conclusions * No evidence of deep vein thrombosis identified in the left lower extremity. * The left peroneal veins are not well visualized secondary to edema and vessel depth. Cannot exclude isolated cases of deep vein thrombosis in the veins that are not well visualized. * No evidence of superficial vein thrombosis identified in the left lower extremity. * No evidence of thrombosis is noted in the contralateral right common femoral vein. XR CHEST PA AND LATERAL Addendum Date: 07/09/2025 Addendum: Right PICC line with tip somewhat obscured although overlying the mid to lower SVC. Result Date: 07/09/2025 PA AND LATERAL CHEST X-RAY, 07/09/2025 3:21 PM CLINICAL HISTORY: -right chest and neck pain COMPARISON: None. PROCEDURE COMMENTS: Frontal and lateral views of the chest. FINDINGS: Heart and mediastinal contours within normal limits for technique. No active failure, pneumonia, or visible effusion. No visible pneumothorax. No acute finding. - Note: Radiology results need to be interpreted within a comprehensive clinical context. If you have questions about the radiology report, please contact the office of the orderingclinician. FSBS: Lab Results Component Value Date FSBS 83 07/10/2025 FSBS 138 (H) 07/10/2025 FSBS 125 (H) 07/09/2025 FSBS 91 07/09/2025 FSBS 94 07/09/2025 FSBS 108 (H) 07/09/2025 FSBS 93 07/08/2025 FSBS 114 (H) 07/08/2025 EKG tele, ordered for above reasons, reviewed personally: N/A Labs: Laboratory data and diagnostic testing personally reviewed from 07/10/25. Bradford Sauceda MD * Ulysses Lazcano MSW - 07/10/2025 11:33 AM EST 07/10/25 3106 Ongoing Discharge Planning Evaluation Completed by CC/RADHA Yes Actual Discharge Plan 07/10/25 RADHA UPDATE: Pt is being followed by [facility] for TPN, however has no doctor to follow her once DC. SW sent proactive referral to [facility] for possible placement. Pt is being followed by SHYANNE GARCIA. Pt transportation TBD day of DC. RADHA will continue to follow along. * Graham Mello [facility] - 07/10/2025 10:38 AM EST S: Alexei Macias is a(n) 40 y.o. female admitted with abdominal pain and recurrent vomiting with history of gastric bypass surgery (2020), cannabis use, and PUD. EGD findings on 07/05 with stricture at theGJ anastomosis. Pharmacy managing TPN electrolytes. Patient is expected to be discharged on TPN. O: Most Recent Labs: Recent Labs 07/04/25 0548 07/05/25170107/10/25 0610 WBC 7.9 7.8 6.8 HGB 10.4* 12.2 9.9* HCT 31.6* 37.0 30.9* PLT 283 319 219 Recent Labs 07/07/25 0819 07/08/25 0515 07/09/25 0616 07/10/25 0610 NA -- 139 141 139 K -- 4.8 4.7 4.4 CL -- 106 107 107 CO2 -- 31* 27 24 CALCIUM -- 8.4* 8.4* 8.1* CAIONIZED 1.15 -- -- -- BUN -- 9 11 12 CREATININE -- 0.79 0.76 0.70 GLU -- 97 92 126* Recent Labs 07/04/25 0548 07/04/25 0936 07/05/25 1702 07/06/25 0505 07/07/25 0552 07/08/25 0515 07/09/25 0616 07/10/25 0610 ALKPHOS -- -- 127* 100 -- -- -- 132* MG < > -- 1.9 2.0 < > 2.1 1.9 1.8 PHOS < > -- 3.3 4.4 < > 3.6 4.4 4.1 PREALBUMIN -- 14.7* 14.5* -- -- -- -- -- < > = values in this interval not displayed. Recent Labs 07/05/25 1702 07/06/25 0505 07/10/25 0610 ALT 7 6 9 AST 20 18 16 BILIDIR <0.2 <0.2 <0.2 LABBILI 0.3 0.2 <0.2* Recent Labs 07/05/25 1702 07/10/25 0610 TRIG 61 59 73 Recent Labs 07/05/25 1701 07/10/25 0610 INR 1.06 1.09 LABPT 12.2 12.5 Weight: 141 lb 11.2 oz (64.3 kg) A/P: Day 5 of TPN. Fingerstick blood glucose readings have been WNL. Physician orders and progress notes reviewed. TPN formula: High Protein (150g CHO/L, 50g protein/L) TPN lipids: 50g daily TPN rate: 70 mL/hour (at goal) Additional IV fluids: none Electrolytes have been stable. Calcium slightly low, will replace with Calcium Gluconate 2g. Will continue TPN electrolytes/additives with Clinimix-E Electrolytes/Additives: Sodium Chloride 10 mEq/L Sodium Acetate Trihydrate 25 mEq/L Potassium Phosphate 15 mmol/L (30 mEq K+) Calcium Chloride 4.5 mEq/L Magnesium Chloride 5 mEq/L MVI 10 mL/bag Trace Elements 1 mL/bag Pharmacy will follow patient and adjust electrolytes. Thanks, Graham Mello, PharmD Bradford Lopez MD - 07/09/2025 3:03 PM ESTAssociated Problem(s): Generalized abdominal pain -- OTC PPI 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 This is most likely the site of the gastro-jejunostomy. This could not be traversed with the scope. Performed forceps biopsies in the stomach to rule out H. pylori. The esophagus appeared normal. GI Recommendation Await pathology results Pantoprazole 40mg BID Sucralfate QID I do not expect patient to be able to tolerate solid food. She will need a surgical J tube or TPN. -- Pathology: A. Gastric biopsies: - Gastric body type mucosa with mild chronic inflammation. - Negative for H. pylori organisms on H&E stained slides. -- started on TPN per general surgery recommendations - high risk treatment monitoring for line infection, bacteremia, glucose and electrolyte abnormalities and hepatic dysfunction. -- recommend tobacco and cannabis cessation -- considerations for surgical revision or reversal once off tobacco and cannabis for 2 months and nutritional status improves. -- pain controlled. -- Right upper arm to right neck pain 07/09 * Bradford Sauceda MD - 07/09/2025 3:03 PM ESTAssociated Problem(s): Acute exacerbation of chronic abdominal pain -- OTC PPI 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 This is most likely the site of the gastro-jejunostomy. This could not be traversed with the scope. Performed forceps biopsies in the stomach to rule out H. pylori. The esophagus appeared normal. GI Recommendation Await pathology results Pantoprazole 40mg BID Sucralfate QID I do not expect patient to be able to tolerate solid food. She will need a surgical J tube or TPN. -- Pathology: A. Gastric biopsies: - Gastric body type mucosa with mild chronic inflammation. - Negative for H. pylori organisms on H&E stained slides. -- started on TPN per general surgery recommendations - high risk treatment monitoring for line infection, bacteremia, glucose and electrolyte abnormalities and hepatic dysfunction. -- recommend tobacco and cannabis cessation -- considerations for surgical revision or reversal once off tobacco and cannabis for 2 months and nutritional status improves. -- pain controlled. -- Right upper arm to right neck pain 07/09 * Bradford Sauceda MD - 07/09/2025 3:03 PM ESTAssociated Problem(s): History of gastric bypass -- OTC PPI 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 This is most likely the site of the gastro-jejunostomy. This could not be traversed with the scope. Performed forceps biopsies in the stomach to rule out H. pylori. The esophagus appeared normal. GI Recommendation Await pathology results Pantoprazole 40mg BID Sucralfate QID I do not expect patient to be able to tolerate solid food. She will need a surgical J tube or TPN. -- Pathology: A. Gastric biopsies: - Gastric body type mucosa with mild chronic inflammation. - Negative for H. pylori organisms on H&E stained slides. -- started on TPN per general surgery recommendations - high risk treatment monitoring for line infection, bacteremia, glucose and electrolyte abnormalities and hepatic dysfunction. -- recommend tobacco and cannabis cessation -- considerations for surgical revision or reversal once off tobacco and cannabis for 2 months and nutritional status improves. -- pain controlled. -- Right upper arm to right neck pain 07/09 * Bradford Sauceda MD - 07/09/2025 3:03 PM ESTAssociated Problem(s): Chronic nausea -- OTC PPI 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 This is most likely the site of the gastro-jejunostomy. This could not be traversed with the scope. Performed forceps biopsies in the stomach to rule out H. pylori. The esophagus appeared normal. GI Recommendation Await pathology results Pantoprazole 40mg BID Sucralfate QID I do not expect patient to be able to tolerate solid food. She will need a surgical J tube or TPN. -- Pathology: A. Gastric biopsies: - Gastric body type mucosa with mild chronic inflammation. - Negative for H. pylori organisms on H&E stained slides. -- started on TPN per general surgery recommendations - high risk treatment monitoring for line infection, bacteremia, glucose and electrolyte abnormalities and hepatic dysfunction. -- recommend tobacco and cannabis cessation -- considerations for surgical revision or reversal once off tobacco and cannabis for 2 months and nutritional status improves. -- pain controlled. -- Right upper arm to right neck pain 07/09 * Bradford Sauceda MD - 07/09/2025 3:03 PM ESTAssociated Problem(s): GERD (gastroesophageal reflux disease) -- OTC PPI 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 This is most likely the site of the gastro-jejunostomy. This could not be traversed with the scope. Performed forceps biopsies in the stomach to rule out H. pylori. The esophagus appeared normal. GI Recommendation Await pathology results Pantoprazole 40mg BID Sucralfate QID I do not expect patient to be able to tolerate solid food. She will need a surgical J tube or TPN. -- Pathology: A. Gastric biopsies: - Gastric body type mucosa with mild chronic inflammation. - Negative for H. pylori organisms on H&E stained slides. -- started on TPN per general surgery recommendations - high risk treatment monitoring for line infection, bacteremia, glucose and electrolyte abnormalities and hepatic dysfunction. -- recommend tobacco and cannabis cessation -- considerations for surgical revision or reversal once off tobacco and cannabis for 2 months and nutritional status improves. -- pain controlled. -- Right upper arm to right neck pain 07/09 * Bradford Sauceda MD - 07/09/2025 3:03 PM ESTAssociated Problem(s): Peptic ulcer disease -- OTC PPI 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 This is most likely the site of the gastro-jejunostomy. This could not be traversed with the scope. Performed forceps biopsies in the stomach to rule out H. pylori. The esophagus appeared normal. GI Recommendation Await pathology results Pantoprazole 40mg BID Sucralfate QID I do not expect patient to be able to tolerate solid food. She will need a surgical J tube or TPN. -- Pathology: A. Gastric biopsies: - Gastric body type mucosa with mild chronic inflammation. - Negative for H. pylori organisms on H&E stained slides. -- started on TPN per general surgery recommendations - high risk treatment monitoring for line infection, bacteremia, glucose and electrolyte abnormalities and hepatic dysfunction. -- recommend tobacco and cannabis cessation -- considerations for surgical revision or reversal once off tobacco and cannabis for 2 months and nutritional status improves. -- pain controlled. -- Right upper arm to right neck pain 07/09 * Bradford Sauceda MD - 07/09/2025 3:03 PM ESTAssociated Problem(s): Persistent recurrent vomiting -- OTC PPI 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 This is most likely the site of the gastro-jejunostomy. This could not be traversed with the scope. Performed forceps biopsies in the stomach to rule out H. pylori. The esophagus appeared normal. GI Recommendation Await pathology results Pantoprazole 40mg BID Sucralfate QID I do not expect patient to be able to tolerate solid food. She will need a surgical J tube or TPN. -- Pathology: A. Gastric biopsies: - Gastric body type mucosa with mild chronic inflammation. - Negative for H. pylori organisms on H&E stained slides. -- started on TPN per general surgery recommendations - high risk treatment monitoring for line infection, bacteremia, glucose and electrolyte abnormalities and hepatic dysfunction. -- recommend tobacco and cannabis cessation -- considerations for surgical revision or reversal once off tobacco and cannabis for 2 months and nutritional status improves. -- pain controlled. -- Right upper arm to right neck pain 07/09 * Bradford Sauceda MD - 07/09/2025 3:03 PM ESTAssociated Problem(s): Chronic idiopathic constipation -- GI consulted -- Bowel regimen -- BM-07/08/2020 * Bradford Sauceda MD - 07/09/2025 3:03 PM ESTAssociated Problem(s): Other chest pain -- cardiology consulted -- [place] to be atypical for CAD -- Suspect GI related -- If echocardiogram unremarkable, no further cardiac workup recommended -- Echocardiogram: * Left ventricular chamber dimension is normal. * Left ventricular function is normal with an estimated ejection fraction of 55-60%. * Left ventricular segmental wall motion is normal. * The left ventricular diastolic function is normal. * Right ventricular systolic function is normal. * Estimated pulmonary artery systolic pressure is 31 mmHg. * Bradford Sauceda MD - 07/09/2025 3:03 PM ESTAssociated Problem(s): Paroxysmal atrial fibrillation (HCC) -- history not clear -- not on any meds -- appears regular * Bradford Sauceda MD - 07/09/2025 3:03 PM ESTAssociated Problem(s): HTN (hypertension) -- not on any meds CUT IN WORKER -- monitor -- 07/09/2025 in acceptable range * Bradford Sauceda MD - 07/09/2025 3:03 PM ESTAssociated Problem(s): History of chronic CHF -- not on any meds 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 -- 07/09/2025 no acute issues * Bradford Sauceda MD - 07/09/2025 11:09 AM ESTAssociated Problem(s): Generalized anxiety disorder -- Ativan, Vistaril, Seroquel 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 Continued -- psychiatry consulted * Bradford Sauceda MD - 07/09/2025 11:09 AM ESTAssociated Problem(s): Major depressive disorder, recurrent, moderate (HCC) -- Ativan, Vistaril, Seroquel 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 Continued -- psychiatry consulted * Bradford Sauceda MD - 07/09/2025 11:09 AM ESTAssociated Problem(s): Insomnia due to mental disorder -- AtJay gimenez Seroquel 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 Continued -- psychiatry consulted * Bradford Sauceda MD - 07/09/2025 11:09 AM ESTAssociated Problem(s): Adjustment disorder with mixed anxiety and depressed mood -- AtJay gimenez Seroquel 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 Continued -- psychiatry consulted * Bradford Sauceda MD - 07/09/2025 11:09 AM ESTAssociated Problem(s): Acute reaction to situational stress -- AtivanJay Seroquel 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 Continued -- psychiatry consulted * Bradford Suaceda MD - 07/09/2025 11:09 AM ESTAssociated Problem(s): Borderline personality disorder (HCC) -- AtJay gimenez Seroquel 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 Continued -- psychiatry consulted * Bradford Sauceda MD - 07/09/2025 11:09 AM ESTAssociated Problem(s): Suicidal ideations -- Psychiatry consulted -- Suicide precautions -- Improved. No current suicidal ideations or Intent. -- CBO and suicide precautions discontinued. -- To follow-up outpatient with her mental health providers * Bradford Sauceda MD - 07/09/2025 11:09 AM ESTAssociated Problem(s): Anorexia -- Psychiatry and GI consulted -- EGD findings as noted above * Bradford Sauceda MD - 07/09/2025 11:09 AM ESTAssociated Problem(s): Cannabis dependence (HCC) -- Advised to stop * Bradford Sauceda MD - 07/09/2025 11:09 AM ESTAssociated Problem(s): History of DVT (deep vein thrombosis) -- appears to be provoked -- no longer on anticoagulation * Bradford Sauceda MD - 07/09/2025 11:09 AM ESTAssociated Problem(s): History of pulmonary embolism -- appears to be provoked -- no longer on anticoagulation * Bradford Sauceda MD - 07/09/2025 11:09 AM ESTAssociated Problem(s): Iron deficiency anemia -- Hemoglobin normal. MCV low * Bradford Sauceda MD - 07/09/2025 11:09 AM ESTAssociated Problem(s): Chronic low back pain Chronic abdominal pain -- Lyrica 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 Continued -- Pain controlled with meds * Bradford Sauceda MD - 07/09/2025 11:09 AM ESTAssociated Problem(s): Chronic pain Chronic abdominal pain -- Lyrica 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 Continued -- Pain controlled with meds * Bradford Sauceda MD - 07/09/2025 11:09 AM ESTAssociated Problem(s): Cardiac murmur -- Echo as noted above * Bradford Sauceda MD - 07/09/2025 11:09 AM ESTAssociated Problem(s): Nicotine dependence -- Affecting all aspects of patient's health and care -- Nicotine replacement patch. Patient discontinued. * Bradford Sauceda MD - 07/09/2025 11:09 AM ESTAssociated Problem(s): Underweight -- Affecting all aspects of patient's health and care Evidence Supported Malnutrition Diagnosis: Moderate protein-calorie malnutrition Starvation Related (Social/Environmental) Indicators: moderate fat depletion; mild muscle mass depletion; < or equal to 50% energy intake compared to estimate energy needs for > or equal to 1 month (additional indicators, BMI @18.2 and @ 84% of IBW) Meals and Snacks: Full Liquid (no carbonated beverages) Parenteral Nutrition/IV Fluids: Advance TPN to goal feed of Clinimix 5/15 @ 70 ml/hr today , with addition of daily lipids Thursday = 84 g protein, 1693 kcal, 252 g carb, 3/1 mg carb/kg/min. @ Goal TPN will % of protein needs and low range of calorie needs. Oral intake is dependent on pts pain, therefore any oral intake is a bonus. Medical Food Supplements: Glucerna Therapeutic; Beneprotein Vitamin and Mineral Supplements: Vitamin D (w/Clinimix E) Nutrition-Related Medication Management: Protonix Collaboration And Referral Of Nutrition Care: Collaboration with other providers (NEWS CAMERAMAN, RN, Pharmacist) -- B12 and folate wnl. Iron normal. Transferrin sat low, TIBC wnl. Mag wnl. Phos wnl. Triglyceride 59 -- Prealbumin 14.7 -- TPN * Bradford Sauceda MD - 07/09/2025 11:09 AM ESTAssociated Problem(s): Moderate protein-calorie malnutrition -- Affecting all aspects of patient's health and care Evidence Supported Malnutrition Diagnosis: Moderate protein-calorie malnutrition Starvation Related (Social/Environmental) Indicators: moderate fat depletion; mild muscle mass depletion; < or equal to 50% energy intake compared to estimate energy needs for > or equal to 1 month (additional indicators, BMI @18.2 and @ 84% of IBW) Meals and Snacks: Full Liquid (no carbonated beverages) Parenteral Nutrition/IV Fluids: Advance TPN to goal feed of Clinimix 5/15 @ 70 ml/hr today , with addition of daily lipids Thursday = 84 g protein, 1693 kcal, 252 g carb, 3/1 mg carb/kg/min. @ Goal TPN will % of protein needs and low range of calorie needs. Oral intake is dependent on pts pain, therefore any oral intake is a bonus. Medical Food Supplements: Glucerna Therapeutic; Beneprotein Vitamin and Mineral Supplements: Vitamin D (w/Clinimix E) Nutrition-Related Medication Management: Protonix Collaboration And Referral Of Nutrition Care: Collaboration with other providers (NEWS CAMERAMAN, RN, Pharmacist) -- B12 and folate wnl. Iron normal. Transferrin sat low, TIBC wnl. Mag wnl. Phos wnl. Triglyceride 59 -- Prealbumin 14.7 -- TPN * Bradford Sauceda MD - 07/09/2025 11:09 AM ESTAssociated Problem(s): Dental infection -- Augmentin 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 Continued -- improving * Bradford Sauceda MD - 07/09/2025 11:09 AM ESTAssociated Problem(s): Vitamin D insufficiency -- Vitamin D supplementation * Bradford Sauceda MD - 07/09/2025 11:09 AM EST Images from the original note were not included. 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 This is most likely the site of the gastro-jejunostomy. This could not be traversed with the scope. Performed forceps biopsies in the stomach to rule out H. pylori. The esophagus appeared normal. GI Recommendation Await pathology results Pantoprazole 40mg BID Sucralfate QID I do not expect patient to be able to tolerate solid food. She will need a surgical J tube or TPN. -- Pathology: A. Gastric biopsies: - Gastric body type mucosa with mild chronic inflammation. - Negative for H. pylori organisms on H&E stained slides. -- started on TPN per general surgery recommendations - high risk treatment monitoring for line infection, bacteremia, glucose and electrolyte abnormalities and hepatic dysfunction. -- recommend tobacco and cannabis cessation -- considerations for surgical revision or reversal once off tobacco and cannabis for 2 months and nutritional status improves. -- pain controlled. 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 Continued -- psychiatry consulted Suicidal ideations -- Psychiatry consulted -- Suicide precautions -- Improved. No current suicidal ideations or Intent. -- CBO and suicide precautions discontinued. -- To follow-up outpatient with her mental health providers Anorexia -- Psychiatry and GI consulted -- EGD findings as noted above Cannabis dependence (HCC) -- Advised to stop Other chest pain -- cardiology consulted -- [place] to be atypical for CAD -- Suspect GI related -- If echocardiogram unremarkable, no further cardiac workup recommended -- Echocardiogram: * Left ventricular chamber dimension is normal. * Left ventricular function is normal with an estimated ejection fraction of 55-60%. * Left ventricular segmental wall motion is normal. * The left ventricular diastolic function is normal. * Right ventricular systolic function is normal. * Estimated pulmonary artery systolic pressure is 31 mmHg. 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 -- 07/09/2025 no acute issues Nicotine dependence -- Affecting all aspects of patient's health and care -- Nicotine replacement patch. Patient discontinued. Underweight Moderate protein-calorie malnutrition -- Affecting all aspects of patient's health and care Evidence Supported Malnutrition Diagnosis: Moderate protein-calorie malnutrition Starvation Related (Social/Environmental) Indicators: moderate fat depletion; mild muscle mass depletion; < or equal to 50% energy intake compared to estimate energy needs for > or equal to 1 month (additional indicators, BMI @18.2 and @ 84% of IBW) Meals and Snacks: Full Liquid (no carbonated beverages) Parenteral Nutrition/IV Fluids: Advance TPN to goal feed of Clinimix 5/15 @ 70 ml/hr today , with addition of daily lipids Thursday = 84 g protein, 1693 kcal, 252 g carb, 3/1 mg carb/kg/min. @ Goal TPN will % of protein needs and low range of calorie needs. Oral intake is dependent on pts pain, therefore any oral intake is a bonus. Medical Food Supplements: Glucerna Therapeutic; Beneprotein Vitamin and Mineral Supplements: Vitamin D (w/Clinimix E) Nutrition-Related Medication Management: Protonix Collaboration And Referral Of Nutrition Care: Collaboration with other providers (NEWS CAMERAMAN, RN, Pharmacist) -- B12 and folate wnl. Iron normal. Transferrin sat low, TIBC wnl. Mag wnl. Phos wnl. 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 Continued -- improving History of endometrial cancer Vitamin D insufficiency -- Vitamin D supplementation ------ VTE Prophylaxis: Dietary Orders (From admission, onward) Ordered Full Liquid Diet Fluid Restriction(ml/24hr): No Carbonated Beverage DIET EFFECTIVE NOW Question: Fluid Restriction(ml/24hr): Answer: No Carbonated Beverage 07/05/25 1531 Plan: Discussed with staff--with RN, care conference with charge nurse, care coordination/ social serviceand clinical pharmacist Discussed with patient Check chest x-ray Check venous duplex of right upper arm Arrange for outpatient TPN Continue with above and current treatment plans and per recommendations by consultants evaluating patient, with additions and exceptions as noted above. Please refer to orders for complete details of patient's care plans Medically Ready for Discharge?: No EDOD: 07/10/2025 Not Ready for Discharge because: Needing ongoing medical management as noted above. Active Hospital Problems Diagnosis *Generalized abdominal pain Acute reaction to situational stress Vitamin D insufficiency Borderline personality disorder (HCC) Underweight Moderate protein-calorie malnutrition Dental infection Persistent recurrent vomiting History of endometrial cancer History of gastric bypass History of pulmonary embolism Cannabis dependence (HCC) Other chest pain Cardiac murmur History of chronic CHF Abdominal pain Suicidal ideations Paroxysmal atrial fibrillation (HCC) Chronic idiopathic constipation Chronic nausea Anorexia Estevan-Danlos disease Generalized anxiety disorder GERD (gastroesophageal reflux disease) History of DVT (deep vein thrombosis) HTN (hypertension) Iron deficiency anemia Peptic ulcer disease Acute exacerbation of chronic abdominal pain Chronic pain Insomnia due to mental disorder Major depressive disorder, recurrent, moderate (HCC) Nicotine dependence Chronic low back pain Adjustment disorder with mixed anxiety and depressed mood CC / HPI: Alexei Macias is a(n)40 y.o. female admitted for work-up and treatment for No chief complaint on file. Generalized abdominal pain Subjective: Having some pain in her right upper arm radiating to right shoulder and right side of her neck. No injury or trauma to that area. Staff at had not noted anything abnormal on exam. PICC line is infusing and flushing fine. No weakness. ROS: No shortness of breath. Cardiac negative. Medications reviewed: amoxicillin-clavulanate 1 Tablet Oral BID BENEPROTEIN powder 2 Packet Oral BID with Meals cholecalciferol (vitamin D3) 1,000 Units Oral Daily ENSURE High Protein 1 Box Oral TID with Meals estradioL 4 g Vaginal Once per day on Thursday fat emulsion 250 mL Intravenous Daily flu vac triv (PF) 0.5 mL Intramuscular ONCE GLUCERNA Therapeutic 1 'box' Oral TID with Meals mupirocin Nasal BID pantoprazole 40 mg Oral BID polyethylene glycol 17 g Oral BID pregabalin 200 mg Oral BID QUEtiapine 100 mg Oral Nightly sodium chloride 0.9% 10 mL Intravenous 3 times per day TPN ADULT w/ Electrolytes (Clinimix-E) 70 mL/hr at 07/08/25 2147 acetaminophen, alteplase, bisacodyL, hydrOXYzine, LORazepam, ondansetron OR ondansetron, oxyCODONE, sodium chloride 0.9%, sodium chloride 0.9% Objective: Patient Vitals for the past 24 hrs: BP Temp Temp src Pulse Resp SpO2 07/09/25 0833 104/61 98.1 ??F (36.7 ??C) Oral 64 16 96 % 07/08/253 99/57 99.2 ??F (37.3 ??C) Oral 70 16 100 % Physical Exam: General Alert, NAD Psych Normal mood and affect Neck Supple. No swelling or tenderness noted. No erythema or ecchymosis noted. Respiratory Respirations easy, CTA, =BS, good AM Cardiac RRR Abdominal +BS, Soft, ND, NT Musculoskeletal No edema. Right arm without any swelling, erythema, or ecchymosis. PICC site normal. Range of motion of elbow and shoulder normal. No swelling of the joints noted. Neurovascular intact in right hand. Nontender to palpation elsewhere right arm, shoulder and neck. Neurologic Oriented Lymph Skin Data reviewed: Recent Labs 07/04/25 0548 07/04/25 0548 07/04/25 0936 07/05/25 1701 07/05/25 1702 07/06/25 0505 07/07/25 0552 07/08/25 0515 07/09/25 0616 WBC 7.9 -- -- -- 7.8 -- -- -- -- HGB 10.4* -- -- -- 12.2 -- -- -- -- HCT 31.6* -- -- -- 37.0 -- -- -- -- MCV 88.8 -- -- -- 87.9 -- -- -- -- PLT 283 -- -- -- 319 -- -- -- -- NA 143 -- -- -- 138 140 139 139 141 K 4.4 -- -- -- 4.0 4.1 4.3 4.8 4.7 CL 107 -- -- -- 100 103 106 106 107 CO2 31* -- -- -- 28 28 29 31* 27 BUN 10 -- -- -- 4* 5* 7 9 11 CREATININE 0.82 -- -- -- 0.76 0.79 0.81 0.79 0.76 MG -- < > -- -- 1.9 2.0 1.9 2.1 1.9 PREALBUMIN -- -- 14.7* -- 14.5* -- -- -- -- PROT 6.1* -- -- -- 7.6 6.0* -- -- -- ALT 6 -- -- -- 7 6 -- -- -- AST 15 -- -- -- 20 18 -- -- -- ALKPHOS 100 -- -- -- 127* 100 -- -- -- LABBILI 0.2 -- -- -- 0.3 0.2 -- -- -- BILIDIR <0.2 -- -- -- <0.2 <0.2 -- -- -- INR -- -- -- 1.06 -- -- -- -- -- PTT -- -- -- 34.9 -- -- -- -- -- < > = values in this interval not displayed. No results found. FSBS: Lab Results Component Value Date FSBS 108 (H) 07/09/2025 FSBS 93 07/08/2025 FSBS 114 (H) 07/08/2025 FSBS 103 (H) 07/08/2025 FSBS 89 07/08/2025 FSBS 103 (H) 07/08/2025 FSBS 97 07/08/2025 FSBS 82 07/07/2025 EKG tele, ordered for above reasons, reviewed personally: N/A Labs: Laboratory data and diagnostic testing personally reviewed from 07/09/25. Bradford Sauceda MD * Tiny Tellez, [facility] - 07/09/2025 9:26 AM EST Pharmacy Note: TPN S: Alexei Macias is a(n) 40 y.o. female admitted with abdominal pain and recurrent vomiting with history of gastric bypass surgery (2020), cannabis use, and PUD. EGD findings on 07/05 with stricture at theGJ anastomosis. Pharmacy managing TPN electrolytes. O: Most Recent Labs: Recent Labs 07/04/2554707/05/251701 WBC 7.9 7.8 HGB 10.4* 12.2 HCT 31.6* 37.0 PLT 283 319 Recent Labs 07/07/25 0552 07/07/25 0819 07/08/25 0515 07/09/25 0616 NA 139 -- 139 141 K 4.3 -- 4.8 4.7 CL 106 -- 106 107 CO2 29 -- 31* 27 CALCIUM 8.1* -- 8.4* 8.4* CAIONIZED -- 1.15 -- -- BUN 7 -- 9 11 CREATININE 0.81 -- 0.79 0.76 GLU 118* -- 97 92 Recent Labs 07/04/2554707/04/25 0936 07/05/25170107/05/25 17007/06/25 0505 07/07/25 0552 07/08/25 0515 07/09/25 0616 ALKPHOS 100 -- 127* -- 100 -- -- -- MG -- -- 1.9 < > 2.0 1.9 2.1 1.9 PHOS -- -- 3.3 < > 4.4 3.8 3.6 4.4 PREALBUMIN -- 14.7* 14.5* -- -- -- -- -- < > = values in this interval not displayed. Recent Labs 07/04/2554707/05/25170107/06/25 0505 ALT 6 7 6 AST 15 20 18 BILIDIR <0.2 <0.2 <0.2 LABBILI 0.2 0.3 0.2 Recent Labs 07/05/251701 TRIG 61 59 Recent Labs 11/19/25 1701 INR 1.06 LABPT 12.2 Weight: 123 lb 0.3 oz (55.8 kg) A/P: Day 4 of TPN Fingerstick blood glucose readings have been at goal (<180 mg/dL) Full liquid diet ordered --> as tolerated, but not to the point of causing pain or nausea or vomiting per surgery Plans for discharge with TPN when arranged Physician orders and progress notes reviewed. TPN formula: High Protein (150g CHO/L, 50g protein/L) TPN lipids: 50g daily TPN rate: 70 mL/hour (at goal) Additional IV fluids: none Electrolytes stable. No changes to current TPN formulation. Will continue TPN electrolytes/additives with Clinimix-E Electrolytes/Additives: Sodium Chloride 10 mEq/L Sodium Acetate Trihydrate 25 mEq/L Potassium Phosphate 15 mmol/L (30 mEq K+) Calcium Chloride 4.5 mEq/L Magnesium Chloride 5 mEq/L MVI 10 mL/bag Trace Elements 1 mL/bag Pharmacy will follow patient and adjust electrolytes. 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 This is most likely the site of the gastro-jejunostomy. This could not be traversed with the scope. Performed forceps biopsies in the stomach to rule out H. pylori. The esophagus appeared normal. GI Recommendation Await pathology results Pantoprazole 40mg BID Sucralfate QID I do not expect patient to be able to tolerate solid food. She will need a surgical J tube or TPN. -- Pathology: A. Gastric biopsies: - Gastric body type mucosa with mild chronic inflammation. - Negative for H. pylori organisms on H&E stained slides. -- started on TPN per general surgery recommendations - high risk treatment monitoring for line infection, bacteremia, glucose and electrolyte abnormalities and hepatic dysfunction. -- recommend tobacco and cannabis cessation -- considerations for surgical revision or reversal once off tobacco and cannabis for 2 months and nutritional status improves. 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 This is most likely the site of the gastro-jejunostomy. This could not be traversed with the scope. Performed forceps biopsies in the stomach to rule out H. pylori. The esophagus appeared normal. GI Recommendation Await pathology results Pantoprazole 40mg BID Sucralfate QID I do not expect patient to be able to tolerate solid food. She will need a surgical J tube or TPN. -- Pathology: A. Gastric biopsies: - Gastric body type mucosa with mild chronic inflammation. - Negative for H. pylori organisms on H&E stained slides. -- started on TPN per general surgery recommendations - high risk treatment monitoring for line infection, bacteremia, glucose and electrolyte abnormalities and hepatic dysfunction. -- recommend tobacco and cannabis cessation -- considerations for surgical revision or reversal once off tobacco and cannabis for 2 months and nutritional status improves. -- 07/08/2025 stable * Bradford Sauceda MD - 07/08/2025 8:27 PM ESTAssociated Problem(s): History of gastric bypass -- OTC PPI 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 This is most likely the site of the gastro-jejunostomy. This could not be traversed with the scope. Performed forceps biopsies in the stomach to rule out H. pylori. The esophagus appeared normal. GI Recommendation Await pathology results Pantoprazole 40mg BID Sucralfate QID I do not expect patient to be able to tolerate solid food. She will need a surgical J tube or TPN. -- Pathology: A. Gastric biopsies: - Gastric body type mucosa with mild chronic inflammation. - Negative for H. pylori organisms on H&E stained slides. -- started on TPN per general surgery recommendations - high risk treatment monitoring for line infection, bacteremia, glucose and electrolyte abnormalities and hepatic dysfunction. -- recommend tobacco and cannabis cessation -- considerations for surgical revision or reversal once off tobacco and cannabis for 2 months and nutritional status improves. 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 This is most likely the site of the gastro-jejunostomy. This could not be traversed with the scope. Performed forceps biopsies in the stomach to rule out H. pylori. The esophagus appeared normal. GI Recommendation Await pathology results Pantoprazole 40mg BID Sucralfate QID I do not expect patient to be able to tolerate solid food. She will need a surgical J tube or TPN. -- Pathology: A. Gastric biopsies: - Gastric body type mucosa with mild chronic inflammation. - Negative for H. pylori organisms on H&E stained slides. -- started on TPN per general surgery recommendations - high risk treatment monitoring for line infection, bacteremia, glucose and electrolyte abnormalities and hepatic dysfunction. -- recommend tobacco and cannabis cessation -- considerations for surgical revision or reversal once off tobacco and cannabis for 2 months and nutritional status improves. 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 This is most likely the site of the gastro-jejunostomy. This could not be traversed with the scope. Performed forceps biopsies in the stomach to rule out H. pylori. The esophagus appeared normal. GI Recommendation Await pathology results Pantoprazole 40mg BID Sucralfate QID I do not expect patient to be able to tolerate solid food. She will need a surgical J tube or TPN. -- Pathology: A. Gastric biopsies: - Gastric body type mucosa with mild chronic inflammation. - Negative for H. pylori organisms on H&E stained slides. -- started on TPN per general surgery recommendations - high risk treatment monitoring for line infection, bacteremia, glucose and electrolyte abnormalities and hepatic dysfunction. -- recommend tobacco and cannabis cessation -- considerations for surgical revision or reversal once off tobacco and cannabis for 2 months and nutritional status improves. -- 07/08/2025 stable * Bradford Sauceda MD - 07/08/2025 8:27 PM ESTAssociated Problem(s): Peptic ulcer disease -- OTC PPI 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 This is most likely the site of the gastro-jejunostomy. This could not be traversed with the scope. Performed forceps biopsies in the stomach to rule out H. pylori. The esophagus appeared normal. GI Recommendation Await pathology results Pantoprazole 40mg BID Sucralfate QID I do not expect patient to be able to tolerate solid food. She will need a surgical J tube or TPN. -- Pathology: A. Gastric biopsies: - Gastric body type mucosa with mild chronic inflammation. - Negative for H. pylori organisms on H&E stained slides. -- started on TPN per general surgery recommendations - high risk treatment monitoring for line infection, bacteremia, glucose and electrolyte abnormalities and hepatic dysfunction. -- recommend tobacco and cannabis cessation -- considerations for surgical revision or reversal once off tobacco and cannabis for 2 months and nutritional status improves. 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 This is most likely the site of the gastro-jejunostomy. This could not be traversed with the scope. Performed forceps biopsies in the stomach to rule out H. pylori. The esophagus appeared normal. GI Recommendation Await pathology results Pantoprazole 40mg BID Sucralfate QID I do not expect patient to be able to tolerate solid food. She will need a surgical J tube or TPN. -- Pathology: A. Gastric biopsies: - Gastric body type mucosa with mild chronic inflammation. - Negative for H. pylori organisms on H&E stained slides. -- started on TPN per general surgery recommendations - high risk treatment monitoring for line infection, bacteremia, glucose and electrolyte abnormalities and hepatic dysfunction. -- recommend tobacco and cannabis cessation -- considerations for surgical revision or reversal once off tobacco and cannabis for 2 months and nutritional status improves. 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 This is most likely the site of the gastro-jejunostomy. This could not be traversed with the scope. Performed forceps biopsies in the stomach to rule out H. pylori. The esophagus appeared normal. GI Recommendation Await pathology results Pantoprazole 40mg BID Sucralfate QID I do not expect patient to be able to tolerate solid food. She will need a surgical J tube or TPN. -- Pathology: A. Gastric biopsies: - Gastric body type mucosa with mild chronic inflammation. - Negative for H. pylori organisms on H&E stained slides. -- started on TPN per general surgery recommendations - high risk treatment monitoring for line infection, bacteremia, glucose and electrolyte abnormalities and hepatic dysfunction. -- recommend tobacco and cannabis cessation -- considerations for surgical revision or reversal once off tobacco and cannabis for 2 months and nutritional status improves. -- pain controlled. 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 This is most likely the site of the gastro-jejunostomy. This could not be traversed with the scope. Performed forceps biopsies in the stomach to rule out H. pylori. The esophagus appeared normal. GI Recommendation Await pathology results Pantoprazole 40mg BID Sucralfate QID I do not expect patient to be able to tolerate solid food. She will need a surgical J tube or TPN. -- Pathology: A. Gastric biopsies: - Gastric body type mucosa with mild chronic inflammation. - Negative for H. pylori organisms on H&E stained slides. -- started on TPN per general surgery recommendations - high risk treatment monitoring for line infection, bacteremia, glucose and electrolyte abnormalities and hepatic dysfunction. -- recommend tobacco and cannabis cessation -- considerations for surgical revision or reversal once off tobacco and cannabis for 2 months and nutritional status improves. -- pain controlled. 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 This is most likely the site of the gastro-jejunostomy. This could not be traversed with the scope. Performed forceps biopsies in the stomach to rule out H. pylori. The esophagus appeared normal. GI Recommendation Await pathology results Pantoprazole 40mg BID Sucralfate QID I do not expect patient to be able to tolerate solid food. She will need a surgical J tube or TPN. -- Pathology: A. Gastric biopsies: - Gastric body type mucosa with mild chronic inflammation. - Negative for H. pylori organisms on H&E stained slides. -- started on TPN per general surgery recommendations - high risk treatment monitoring for line infection, bacteremia, glucose and electrolyte abnormalities and hepatic dysfunction. -- recommend tobacco and cannabis cessation -- considerations for surgical revision or reversal once off tobacco and cannabis for 2 months and nutritional status improves. -- pain controlled. * Bradford Sauceda MD - 07/08/2025 8:21 PM ESTAssociated Problem(s): Persistent recurrent vomiting -- OTC PPI 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 This is most likely the site of the gastro-jejunostomy. This could not be traversed with the scope. Performed forceps biopsies in the stomach to rule out H. pylori. The esophagus appeared normal. GI Recommendation Await pathology results Pantoprazole 40mg BID Sucralfate QID I do not expect patient to be able to tolerate solid food. She will need a surgical J tube or TPN. -- Pathology: A. Gastric biopsies: - Gastric body type mucosa with mild chronic inflammation. - Negative for H. pylori organisms on H&E stained slides. -- started on TPN per general surgery recommendations - high risk treatment monitoring for line infection, bacteremia, glucose and electrolyte abnormalities and hepatic dysfunction. -- recommend tobacco and cannabis cessation -- considerations for surgical revision or reversal once off tobacco and cannabis for 2 months and nutritional status improves. -- pain controlled. * Bradford Sauceda MD - 07/08/2025 8:21 PM ESTAssociated Problem(s): Chronic idiopathic constipation -- GI consulted * Bradford Sauceda MD - 07/08/2025 8:21 PM ESTAssociated Problem(s): Paroxysmal atrial fibrillation (HCC) -- history not clear -- not on any meds * Bradford Sauceda MD - 07/08/2025 8:21 PM ESTAssociated Problem(s): HTN (hypertension) -- not on any meds CUT IN WORKER -- monitor -- 07/07/2025 in acceptable range * Bradford Sauceda MD - 07/08/2025 8:21 PM ESTAssociated Problem(s): Generalized anxiety disorder -- Ativan, Armandtaril, Seroquel 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 Continued -- psychiatry consulted * Bradford Sauceda MD - 07/08/2025 8:21 PM ESTAssociated Problem(s): Major depressive disorder, recurrent, moderate (HCC) -- Ativan, Vistaril, Seroquel 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 Continued -- psychiatry consulted * Bradford Sauceda MD - 07/08/2025 8:21 PM ESTAssociated Problem(s): Insomnia due to mental disorder -- Ativan, Vistaril, Seroquel 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 Continued -- psychiatry consulted * Bradford Sauceda MD - 07/08/2025 8:21 PM ESTAssociated Problem(s): Adjustment disorder with mixed anxiety and depressed mood -- Ativan, Armandtaril, Seroquel 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 Continued -- psychiatry consulted * Bradford Sauceda MD - 07/08/2025 8:21 PM ESTAssociated Problem(s): Acute reaction to situational stress -- AtivanAlicial Seroquel 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 Continued -- psychiatry consulted * Bradford Sauceda MD - 07/08/2025 8:21 PM ESTAssociated Problem(s): Borderline personality disorder (HCC) -- Ativan, Alicial, Seroquel 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 Continued -- psychiatry consulted * Bradford Sauceda MD - 07/08/2025 8:21 PM ESTAssociated Problem(s): Suicidal ideations -- Psychiatry consulted -- Suicide precautions -- Improved. No current suicidal ideations or Intent. -- CBO and suicide precautions discontinued. -- To follow-up outpatient with her mental health providers * Bradford Sauceda MD - 07/08/2025 8:21 PM ESTAssociated Problem(s): Anorexia -- Psychiatry and GI consulted -- EGD findings as noted above * Bradford Sauceda MD - 07/08/2025 8:21 PM ESTAssociated Problem(s): Cannabis dependence (HCC) -- Advised to stop * Bradford Sauceda MD - 07/08/2025 8:21 PM ESTAssociated Problem(s): Other chest pain -- cardiology consulted -- [place] to be atypical for CAD -- Suspect GI related -- If echocardiogram unremarkable, no further cardiac workup recommended -- Echocardiogram: * Left ventricular chamber dimension is normal. * Left ventricular function is normal with an estimated ejection fraction of 55-60%. * Left ventricular segmental wall motion is normal. * The left ventricular diastolic function is normal. * Right ventricular systolic function is normal. * Estimated pulmonary artery systolic pressure is 31 mmHg. * Bradford Sauceda MD - 07/08/2025 8:21 PM ESTAssociated Problem(s): History of DVT (deep vein thrombosis) -- appears to be provoked -- no longer on anticoagulation * Bradford Sauceda MD - 07/08/2025 8:21 PM ESTAssociated Problem(s): History of pulmonary embolism -- appears to be provoked -- no longer on anticoagulation * Bradford Sauceda MD - 07/08/2025 8:21 PM ESTAssociated Problem(s): Iron deficiency anemia -- Hemoglobin normal. MCV low * Bradford Sauceda MD - 07/08/2025 8:21 PM ESTAssociated Problem(s): Chronic low back pain Chronic abdominal pain -- Lyrica 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 Continued -- Pain controlled with meds * Bradford Sauceda MD - 07/08/2025 8:21 PM ESTAssociated Problem(s): Chronic pain Chronic abdominal pain -- Lyrica 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 Continued -- Pain controlled with meds * Bradford Sauceda MD - 07/08/2025 8:21 PM ESTAssociated Problem(s): Cardiac murmur -- Echo as noted above * Bradford Sauceda MD - 07/08/2025 8:21 PM ESTAssociated Problem(s): History of chronic CHF -- not on any meds 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 -- no acute issues * Bradford Sauceda MD - 07/08/2025 8:21 PM ESTAssociated Problem(s): Nicotine dependence -- Affecting all aspects of patient's health and care -- Nicotine replacement patch. Patient discontinued. * Bradford Sauceda MD - 07/08/2025 8:21 PM ESTAssociated Problem(s): Underweight -- Affecting all aspects of patient's health and care Evidence Supported Malnutrition Diagnosis: Moderate protein-calorie malnutrition Starvation Related (Social/Environmental) Indicators: moderate fat depletion; mild muscle mass depletion; < or equal to 50% energy intake compared to estimate energy needs for > or equal to 1 month (additional indicators, BMI @18.2 and @ 84% of IBW) Meals and Snacks: Full Liquid (no carbonated beverages) Parenteral Nutrition/IV Fluids: Advance TPN to goal feed of Clinimix 515 @ 70 ml/hr today , with addition of daily lipids Thursday = 84 g protein, 1693 kcal, 252 g carb, 3/1 mg carb/kg/min. @ Goal TPN will [id number]% of protein needs and low range of calorie needs. Oral intake is dependent on pts pain, therefore any oral intake is a bonus. Medical Food Supplements: Glucerna Therapeutic; Beneprotein Vitamin and Mineral Supplements: Vitamin D (w/Clinimix E) Nutrition-Related Medication Management: Protonix Collaboration And Referral Of Nutrition Care: Collaboration with other providers (NEWS CAMERAMAN, RN, Pharmacist) -- B12 and folate wnl. Iron normal. Transferrin sat low, TIBC wnl. Mag wnl. Phos wnl. Triglyceride 59 -- Prealbumin 14.7 -- TPN * Bradford Sauceda MD - 07/08/2025 8:21 PM ESTAssociated Problem(s): Moderate protein-calorie malnutrition -- Affecting all aspects of patient's health and care Evidence Supported Malnutrition Diagnosis: Moderate protein-calorie malnutrition Starvation Related (Social/Environmental) Indicators: moderate fat depletion; mild muscle mass depletion; < or equal to 50% energy intake compared to estimate energy needs for > or equal to 1 month (additional indicators, BMI @18.2 and @ 84% of IBW) Meals and Snacks: Full Liquid (no carbonated beverages) Parenteral Nutrition/IV Fluids: Advance TPN to goal feed of Clinimix 5/15 @ 70 ml/hr today , with addition of daily lipids Thursday = 84 g protein, 1693 kcal, 252 g carb, 3/1 mg carb/kg/min. @ Goal TPN will [id number]% of protein needs and low range of calorie needs. Oral intake is dependent on pts pain, therefore any oral intake is a bonus. Medical Food Supplements: Glucerna Therapeutic; Beneprotein Vitamin and Mineral Supplements: Vitamin D (w/Clinimix E) Nutrition-Related Medication Management: Protonix Collaboration And Referral Of Nutrition Care: Collaboration with other providers (NEWS CAMERAMAN, RN, Pharmacist) -- B12 and folate wnl. Iron normal. Transferrin sat low, TIBC wnl. Mag wnl. Phos wnl. Triglyceride 59 -- Prealbumin 14.7 -- TPN * Bradford Sauceda MD - 07/08/2025 8:21 PM ESTAssociated Problem(s): Dental infection -- Augmentin 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 Continued -- improving * Bradford Sauceda MD - 07/08/2025 8:21 PM ESTAssociated Problem(s): Vitamin D insufficiency -- Vitamin D supplementation * Bradford Sauceda MD - 07/08/2025 8:21 PM ESTAssociated Problem(s): Generalized abdominal pain -- OTC PPI 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 This is most likely the site of the gastro-jejunostomy. This could not be traversed with the scope. Performed forceps biopsies in the stomach to rule out H. pylori. The esophagus appeared normal. GI Recommendation Await pathology results Pantoprazole 40mg BID Sucralfate QID I do not expect patient to be able to tolerate solid food. She will need a surgical J tube or TPN. -- Pathology: A. Gastric biopsies: - Gastric body type mucosa with mild chronic inflammation. - Negative for H. pylori organisms on H&E stained slides. -- started on TPN per general surgery recommendations - high risk treatment monitoring for line infection, bacteremia, glucose and electrolyte abnormalities and hepatic dysfunction. -- recommend tobacco and cannabis cessation -- considerations for surgical revision or reversal once off tobacco and cannabis for 2 months and nutritional status improves. -- pain controlled. * Bradford Sauceda MD - 07/08/2025 8:21 PM ESTAssociated Problem(s): Acute exacerbation of chronic abdominal pain -- OTC PPI 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 This is most likely the site of the gastro-jejunostomy. This could not be traversed with the scope. Performed forceps biopsies in the stomach to rule out H. pylori. The esophagus appeared normal. GI Recommendation Await pathology results Pantoprazole 40mg BID Sucralfate QID I do not expect patient to be able to tolerate solid food. She will need a surgical J tube or TPN. -- Pathology: A. Gastric biopsies: - Gastric body type mucosa with mild chronic inflammation. - Negative for H. pylori organisms on H&E stained slides. -- started on TPN per general surgery recommendations - high risk treatment monitoring for line infection, bacteremia, glucose and electrolyte abnormalities and hepatic dysfunction. -- recommend tobacco and cannabis cessation -- considerations for surgical revision or reversal once off tobacco and cannabis for 2 months and nutritional status improves. -- pain controlled. * Bradford Sauceda MD - 07/08/2025 8:21 PM ESTAssociated Problem(s): History of gastric bypass -- OTC PPI 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 This is most likely the site of the gastro-jejunostomy. This could not be traversed with the scope. Performed forceps biopsies in the stomach to rule out H. pylori. The esophagus appeared normal. GI Recommendation Await pathology results Pantoprazole 40mg BID Sucralfate QID I do not expect patient to be able to tolerate solid food. She will need a surgical J tube or TPN. -- Pathology: A. Gastric biopsies: - Gastric body type mucosa with mild chronic inflammation. - Negative for H. pylori organisms on H&E stained slides. -- started on TPN per general surgery recommendations - high risk treatment monitoring for line infection, bacteremia, glucose and electrolyte abnormalities and hepatic dysfunction. -- recommend tobacco and cannabis cessation -- considerations for surgical revision or reversal once off tobacco and cannabis for 2 months and nutritional status improves. -- pain controlled. * Bradford Sauceda MD - 07/08/2025 7:47 PM ESTAssociated Problem(s): Chronic idiopathic constipation -- GI consulted * Bradford Sauceda MD - 07/08/2025 7:47 PM ESTAssociated Problem(s): Paroxysmal atrial fibrillation (HCC) -- history not clear -- not on any meds * Bradford Sauceda MD - 07/08/2025 7:47 PM ESTAssociated Problem(s): HTN (hypertension) -- not on any meds CUT IN WORKER -- monitor -- 07/08/2025 in acceptable range * Bradford Sauceda MD - 07/08/2025 7:47 PM ESTAssociated Problem(s): Generalized anxiety disorder -- Ativan, Alicial, Seroquel 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 Continued -- psychiatry consulted * Bradford Sauceda MD - 07/08/2025 7:47 PM ESTAssociated Problem(s): Major depressive disorder, recurrent, moderate (HCC) -- Ativan, Armandtaril, Seroquel 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 Continued -- psychiatry consulted * Bradford Sauceda MD - 07/08/2025 7:47 PM ESTAssociated Problem(s): Insomnia due to mental disorder -- Ativan, Armandtaril, Seroquel 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 Continued -- psychiatry consulted * Bradford Sauceda MD - 07/08/2025 7:47 PM ESTAssociated Problem(s): Adjustment disorder with mixed anxiety and depressed mood -- AtivanArmandtaril, Seroquel 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 Continued -- psychiatry consulted * Bradford Sauceda MD - 07/08/2025 7:47 PM ESTAssociated Problem(s): Acute reaction to situational stress -- Ativan, Vistaril, Seroquel 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 Continued -- psychiatry consulted * Bradford Sauceda MD - 07/08/2025 7:47 PM ESTAssociated Problem(s): Borderline personality disorder (HCC) -- Ativan, Vistaril, Seroquel 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 Continued -- psychiatry consulted * Bradford Sauceda MD - 07/08/2025 7:47 PM ESTAssociated Problem(s): Suicidal ideations -- Psychiatry consulted -- Suicide precautions -- Improved. No current suicidal ideations or Intent. -- CBO and suicide precautions discontinued. -- To follow-up outpatient with her mental health providers * Bradford Sauceda MD - 07/08/2025 7:47 PM ESTAssociated Problem(s): Anorexia -- Psychiatry and GI consulted * Bradford Sauceda MD - 07/08/2025 7:47 PM ESTAssociated Problem(s): Cannabis dependence (HCC) -- Advised to stop * Bradford Sauceda MD - 07/08/2025 7:47 PM ESTAssociated Problem(s): Other chest pain -- cardiology consulted -- [place] to be atypical for CAD -- Suspect GI related -- If echocardiogram unremarkable, no further cardiac workup recommended -- Echocardiogram: * Left ventricular chamber dimension is normal. * Left ventricular function is normal with an estimated ejection fraction of 55-60%. * Left ventricular segmental wall motion is normal. * The left ventricular diastolic function is normal. * Right ventricular systolic function is normal. * Estimated pulmonary artery systolic pressure is 31 mmHg. * Bradford Sauceda MD - 07/08/2025 7:47 PM ESTAssociated Problem(s): History of DVT (deep vein thrombosis) -- appears to be provoked -- no longer on anticoagulation * Bradford Sauceda MD - 07/08/2025 7:47 PM ESTAssociated Problem(s): History of pulmonary embolism -- appears to be provoked -- no longer on anticoagulation * Bradford Sauceda MD - 07/08/2025 7:47 PM ESTAssociated Problem(s): Iron deficiency anemia -- Hemoglobin normal. MCV * Bradford Sauceda MD - 07/08/2025 7:47 PM ESTAssociated Problem(s): Chronic low back pain Chronic abdominal pain -- Lyrica 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 Continued -- Pain controlled with meds * Bradford Sauceda MD - 07/08/2025 7:47 PM ESTAssociated Problem(s): Chronic pain Chronic abdominal pain -- Lyrica 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 Continued -- Pain controlled with meds * Bradford Sauceda MD - 07/08/2025 7:47 PM ESTAssociated Problem(s): Cardiac murmur -- Echo as noted above * Bradford Sauceda MD - 07/08/2025 7:47 PM ESTAssociated Problem(s): History of chronic CHF -- not on any meds 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 * Bradford Sauceda MD - 07/08/2025 7:47 PM ESTAssociated Problem(s): Nicotine dependence -- Affecting all aspects of patient's health and care -- Nicotine replacement patch. Patient discontinued. * Bradford Sauceda MD - 07/08/2025 7:47 PM ESTAssociated Problem(s): Underweight -- Affecting all aspects of patient's health and care Evidence Supported Malnutrition Diagnosis: Moderate protein-calorie malnutrition Starvation Related (Social/Environmental) Indicators: moderate fat depletion; mild muscle mass depletion; < or equal to 50% energy intake compared to estimate energy needs for > or equal to 1 month (additional indicators, BMI @18.2 and @ 84% of IBW) Meals and Snacks: Full Liquid (no carbonated beverages) Parenteral Nutrition/IV Fluids: Advance TPN to goal feed of Clinimix 5/15 @ 70 ml/hr today , with addition of daily lipids Thursday = 84 g protein, 1693 kcal, 252 g carb, 3/1 mg carb/kg/min. @ Goal TPN will [id number]% of protein needs and low range of calorie needs. Oral intake is dependent on pts pain, therefore any oral intake is a bonus. Medical Food Supplements: Glucerna Therapeutic; Beneprotein Vitamin and Mineral Supplements: Vitamin D (w/Clinimix E) Nutrition-Related Medication Management: Protonix Collaboration And Referral Of Nutrition Care: Collaboration with other providers (NEWS CAMERAMAN, RN, Pharmacist) -- B12 and folate wnl. Iron normal. Transferrin sat low, TIBC wnl. Mag wnl. Phos wnl. Triglyceride 59 -- Prealbumin 14.7 -- TPN * Bradford Sauceda MD - 07/08/2025 7:47 PM ESTAssociated Problem(s): Moderate protein-calorie malnutrition -- Affecting all aspects of patient's health and care Evidence Supported Malnutrition Diagnosis: Moderate protein-calorie malnutrition Starvation Related (Social/Environmental) Indicators: moderate fat depletion; mild muscle mass depletion; < or equal to 50% energy intake compared to estimate energy needs for > or equal to 1 month (additional indicators, BMI @18.2 and @ 84% of IBW) Meals and Snacks: Full Liquid (no carbonated beverages) Parenteral Nutrition/IV Fluids: Advance TPN to goal feed of Clinimix 5/15 @ 70 ml/hr today , with addition of daily lipids Thursday = 84 g protein, 1693 kcal, 252 g carb, 3/1 mg carb/kg/min. @ Goal TPN will % of protein needs and low range of calorie needs. Oral intake is dependent on pts pain, therefore any oral intake is a bonus. Medical Food Supplements: Glucerna Therapeutic; Beneprotein Vitamin and Mineral Supplements: Vitamin D (w/Clinimix E) Nutrition-Related Medication Management: Protonix Collaboration And Referral Of Nutrition Care: Collaboration with other providers (NEWS CAMERAMAN, RN, Pharmacist) -- B12 and folate wnl. Iron normal. Transferrin sat low, TIBC wnl. Mag wnl. Phos wnl. Triglyceride 59 -- Prealbumin 14.7 -- TPN * Bradford Sauceda MD - 07/08/2025 7:47 PM ESTAssociated Problem(s): Dental infection -- Augmentin 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 Continued -- improving * Bradford Sauceda MD - 07/08/2025 7:47 PM ESTAssociated Problem(s): Vitamin D insufficiency -- Vitamin D supplementation * Bradford Sauceda MD - 07/08/2025 7:16 PM EST Images from the original note were not included. 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 This is most likely the site of the gastro-jejunostomy. This could not be traversed with the scope. Performed forceps biopsies in the stomach to rule out H. pylori. The esophagus appeared normal. GI Recommendation Await pathology results Pantoprazole 40mg BID Sucralfate QID I do not expect patient to be able to tolerate solid food. She will need a surgical J tube or TPN. -- Pathology: A. Gastric biopsies: - Gastric body type mucosa with mild chronic inflammation. - Negative for H. pylori organisms on H&E stained slides. -- started on TPN per general surgery recommendations - high risk treatment monitoring for line infection, bacteremia, glucose and electrolyte abnormalities and hepatic dysfunction. -- recommend tobacco and cannabis cessation -- considerations for surgical revision or reversal once off tobacco and cannabis for 2 months and nutritional status improves. -- 07/08/2025 stable Chronic idiopathic constipation -- GI consulted Generalized anxiety disorder Major depressive disorder, recurrent, moderate (HCC) Insomnia due to mental disorder Adjustment disorder with mixed anxiety and depressed mood Acute reaction to situational stress Borderline personality disorder (HCC) -- Ativan, Vistaril, Seroquel 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 Continued -- psychiatry consulted Suicidal ideations -- Psychiatry consulted -- Suicide precautions -- Improved. No current suicidal ideations or Intent. -- CBO and suicide precautions discontinued. -- To follow-up outpatient with her mental health providers Anorexia -- Psychiatry and GI consulted Cannabis dependence (HCC) -- Advised to stop Other chest pain -- cardiology consulted -- [place] to be atypical for CAD -- Suspect GI related -- If echocardiogram unremarkable, no further cardiac workup recommended -- Echocardiogram: * Left ventricular chamber dimension is normal. * Left ventricular function is normal with an estimated ejection fraction of 55-60%. * Left ventricular segmental wall motion is normal. * The left ventricular diastolic function is normal. * Right ventricular systolic function is normal. * Estimated pulmonary artery systolic pressure is 31 mmHg. Paroxysmal atrial fibrillation (HCC) -- history not clear -- not on any meds Estevan-Danlos disease HTN (hypertension) -- not on any meds CUT IN WORKER -- monitor -- 07/08/2025 in acceptable range History of DVT (deep vein thrombosis) History of pulmonary embolism -- appears to be provoked -- no longer on anticoagulation Iron deficiency anemia -- Hemoglobin normal. 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 Nicotine dependence -- Affecting all aspects of patient's health and care -- Nicotine replacement patch. Patient discontinued. Underweight Moderate protein-calorie malnutrition -- Affecting all aspects of patient's health and care Evidence Supported Malnutrition Diagnosis: Moderate protein-calorie malnutrition Starvation Related (Social/Environmental) Indicators: moderate fat depletion; mild muscle mass depletion; < or equal to 50% energy intake compared to estimate energy needs for > or equal to 1 month (additional indicators, BMI @18.2 and @ 84% of IBW) Meals and Snacks: Full Liquid (no carbonated beverages) Parenteral Nutrition/IV Fluids: Advance TPN to goal feed of Clinimix 5/15 @ 70 ml/hr today , with addition of daily lipids Thursday = 84 g protein, 1693 kcal, 252 g carb, 3/1 mg carb/kg/min. @ Goal TPN will % of protein needs and low range of calorie needs. Oral intake is dependent on pts pain, therefore any oral intake is a bonus. Medical Food Supplements: Glucerna Therapeutic; Beneprotein Vitamin and Mineral Supplements: Vitamin D (w/Clinimix E) Nutrition-Related Medication Management: Protonix Collaboration And Referral Of Nutrition Care: Collaboration with other providers (NEWS CAMERAMAN, RN, Pharmacist) -- B12 and folate wnl. Iron normal. Transferrin sat low, TIBC wnl. Mag wnl. Phos wnl. 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 Continued -- improving History of endometrial cancer Vitamin D insufficiency -- Vitamin D supplementation ------ VTE Prophylaxis: Dietary Orders (From admission, onward) Ordered Full Liquid Diet Fluid Restriction(ml/24hr): No Carbonated Beverage DIET EFFECTIVE NOW Question: Fluid Restriction(ml/24hr): Answer: No Carbonated Beverage 07/05/25 1531 Plan: Discussed with staff--with RN, care conference with charge nurse, care coordination/ social serviceand clinical pharmacist Discussed with patient Continue with above and current treatment plans and per recommendations by consultants evaluating patient, with additions and exceptions as noted above. Please refer to orders for complete details of patient's care plans Medically Ready for Discharge?: No EDOD: 07/10/2025 Not Ready for Discharge because: Ongoing medical management as noted above Active Hospital Problems Diagnosis *Generalized abdominal pain Acute reaction to situational stress Vitamin D insufficiency Borderline personality disorder (HCC) Underweight Moderate protein-calorie malnutrition Dental infection Persistent recurrent vomiting History of endometrial cancer History of gastric bypass History of pulmonary embolism Cannabis dependence (HCC) Other chest pain Cardiac murmur History of chronic CHF Abdominal pain Suicidal ideations Paroxysmal atrial fibrillation (HCC) Chronic idiopathic constipation Chronic nausea Anorexia Estevan-Danlos disease Generalized anxiety disorder GERD (gastroesophageal reflux disease) History of DVT (deep vein thrombosis) HTN (hypertension) Iron deficiency anemia Peptic ulcer disease Acute exacerbation of chronic abdominal pain Chronic pain Insomnia due to mental disorder Major depressive disorder, recurrent, moderate (HCC) Nicotine dependence Chronic low back pain Adjustment disorder with mixed anxiety and depressed mood CC / HPI: Alexei Macias is a(n)40 y.o. female admitted for work-up and treatment for No chief complaint on file. Generalized abdominal pain Subjective: Exam anxiety currently. Abdominal pain worse this evening. Just recently pain medication and anxiety medication ROS: Respiratory negative. Cardiac negative. 2 bowel movements today. Medications reviewed: amoxicillin-clavulanate 1 Tablet Oral BID BENEPROTEIN powder 2 Packet Oral BID with Meals cholecalciferol (vitamin D3) 1,000 Units Oral Daily ENSURE High Protein 1 Box Oral TID with Meals estradioL 4 g Vaginal Once per day on Thursday fat emulsion 250 mL Intravenous Daily flu vac triv (PF) 0.5 mL Intramuscular ONCE GLUCERNA Therapeutic 1 'box' Oral TID with Meals mupirocin Nasal BID pantoprazole 40 mg Oral BID polyethylene glycol 17 g Oral BID pregabalin 200 mg Oral BID QUEtiapine 100 mg Oral Nightly sodium chloride 0.9% 10 mL Intravenous 3 times per day TPN ADULT w/ Electrolytes (Clinimix-E) 70 mL/hr at 07/08/25 1809 acetaminophen, alteplase, bisacodyL, hydrOXYzine, LORazepam, ondansetron OR ondansetron, oxyCODONE, sodium chloride 0.9%, sodium chloride 0.9% Objective: Patient Vitals for the past 24 hrs: BP Temp Temp src Pulse Resp SpO2 Weight 07/08/25 1018 91/56 -- -- 69 16 100 % -- 07/08/25 0706 -- -- -- -- -- -- 123 lb 0.3 oz (55.8 kg) 07/08/25 0257 91/ -- -- -- -- -- -- 07/08/25 0150 (!) 86/53 -- -- 60 -- 100 % -- 07/07/252001 91/57 98.2 ??F (36.8 ??C) Oral 61 16 100 % -- Physical Exam: General Alert, NAD Psych Anxious Neck Supple Respiratory Respirations easy, CTA, =BS, good AM Cardiac RRR Abdominal +BS, Soft, ND, tender mid to upper abdomen Musculoskeletal No edema Neurologic Oriented. Stable Lymph Skin Data reviewed: Recent Labs 07/04/25 0548 07/04/25 0548 07/04/25 0936 07/05/25 1701 07/05/25 1702 07/06/25 0505 07/07/25 0552 07/08/25 0515 WBC 7.9 -- -- -- 7.8 -- -- -- HGB 10.4* -- -- -- 12.2 -- -- -- HCT 31.6* -- -- -- 37.0 -- -- -- MCV 88.8 -- -- -- 87.9 -- -- -- PLT 283 -- -- -- 319 -- -- -- NA 143 -- -- -- 138 140 139 139 K 4.4 -- -- -- 4.0 4.1 4.3 4.8 CL 107 -- -- -- 100 103 106 106 CO2 31* -- -- -- 28 28 29 31* BUN 10 -- -- -- 4* 5* 7 9 CREATININE 0.82 -- -- -- 0.76 0.79 0.81 0.79 MG -- < > -- -- 1.9 2.0 1.9 2.1 PREALBUMIN -- -- 14.7* -- 14.5* -- -- -- PROT 6.1* -- -- -- 7.6 6.0* -- -- ALT 6 -- -- -- 7 6 -- -- AST 15 -- -- -- 20 18 -- -- ALKPHOS 100 -- -- -- 127* 100 -- -- LABBILI 0.2 -- -- -- 0.3 0.2 -- -- BILIDIR <0.2 -- -- -- <0.2 <0.2 -- -- INR -- -- -- 1.06 -- -- -- -- PTT -- -- -- 34.9 -- -- -- -- < > = values in this interval not displayed. No results found. FSBS: Lab Results Component Value Date FSBS 114 (H) 07/08/2025 FSBS 103 (H) 07/08/2025 FSBS 89 07/08/2025 FSBS 103 (H) 07/08/2025 FSBS 97 07/08/2025 FSBS 82 07/07/2025 FSBS 135 (H) 07/07/2025 FSBS 171 (H) 07/07/2025 EKG tele, ordered for above reasons, reviewed personally: N/A Labs: Laboratory data and diagnostic testing personally reviewed from 07/08/25. Bradford Sauceda MD * Tiny Tellez [facility] - 07/08/2025 9:32 AM EST Pharmacy Note: TPN S: Alexei Macias is a(n) 40 y.o. female admitted with abdominal pain and recurrent vomiting with history of gastric bypass surgery (2020), cannabis use, and PUD. EGD findings on 07/05 with stricture at theGJ anastomosis. Pharmacy managing TPN electrolytes. O: Most Recent Labs: Recent Labs 07/04/25 0507/05/251701 WBC 7.9 7.8 HGB 10.4* 12.2 HCT 31.6* 37.0 PLT 283 319 Recent Labs 07/06/25 0505 07/07/25 0552 07/07/25 0819 07/08/25 0515 NA 140 139 -- 139 K 4.1 4.3 -- 4.8 CL 103 106 -- 106 CO2 28 29 -- 31* CALCIUM 8.4* 8.1* -- 8.4* CAIONIZED -- -- 1.15 -- BUN 5* 7 -- 9 CREATININE 0.79 0.81 -- 0.79 GLU 102* 118* -- 97 Recent Labs 07/04/25 0548 07/04/25 0936 07/05/25 17007/05/25 17007/06/25 0505 07/07/25 0552 07/08/25 0515 ALKPHOS 100 -- 127* -- 100 -- -- MG -- -- 1.9 < > 2.0 1.9 2.1 PHOS -- -- 3.3 < > 4.4 3.8 3.6 PREALBUMIN -- 14.7* 14.5* -- -- -- -- < > = values in this interval not displayed. Recent Labs 07/04/25 0548 07/05/25170107/06/25 050 ALT 6 7 6 AST 15 20 18 BILIDIR <0.2 <0.2 <0.2 LABBILI 0.2 0.3 0.2 Recent Labs 07/05/251701 TRIG 61 59 Recent Labs 07/05/251700 INR 1.06 LABPT 12.2 Weight: 123 lb 0.3 oz (55.8 kg) A/P: Day 3 of TPN Fingerstick blood glucose readings have been at goal (<180 mg/dL) Full liquid diet ordered --> as tolerated, but not to the point of causing pain or nausea or vomiting per surgery Plans for discharge with TPN when arranged Physician orders and progress notes reviewed. TPN formula: High Protein (150g CHO/L, 50g protein/L) TPN lipids: None currently - adding lipids daily TPN rate: 70 mL/hour (at goal) Additional IV fluids: None Electrolytes stable and WNL. Will add daily lipids. No changes to TPN formulation today. Will continue TPN electrolytes/additives with Clinimix-E Electrolytes/Additives: Sodium Chloride 10 mEq/L Sodium Acetate Trihydrate 25 mEq/L Potassium Phosphate 15 mmol/L (30 mEq K+) Calcium Chloride 4.5 mEq/L Magnesium Chloride 5 mEq/L MVI 10 mL/bag Trace Elements 1 mL/bag Pharmacy will follow patient and adjust electrolytes. Thank you, Tiny Tellez, PharmD, [facility] 07/08/2025 9:32 AM * Bradford Sauceda MD - 07/07/2025 11:17 PM EST Images from the original note were not included. 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 This is most likely the site of the gastro-jejunostomy. This could not be traversed with the scope. Performed forceps biopsies in the stomach to rule out H. pylori. The esophagus appeared normal. GI Recommendation Await pathology results Pantoprazole 40mg BID Sucralfate QID I do not expect patient to be able to tolerate solid food. She will need a surgical J tube or TPN. -- Pathology: A. Gastric biopsies: - Gastric body type mucosa with mild chronic inflammation. - Negative for H. pylori organisms on H&E stained slides. -- started on TPN per general surgery recommendations - high risk treatment monitoring for line infection, bacteremia, glucose and electrolyte abnormalities and hepatic dysfunction. -- recommend tobacco and cannabis cessation -- considerations for surgical revision or reversal once off tobacco and cannabis for 2 months and nutritional status improves. -- pain controlled. 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 Continued -- psychiatry consulted Suicidal ideations -- Psychiatry consulted -- Suicide precautions -- Improved. No current suicidal ideations or Intent. -- CBO and suicide precautions discontinued. -- To follow-up outpatient with her mental health providers Anorexia -- Psychiatry and GI consulted -- EGD findings as noted above Cannabis dependence (HCC) -- Advised to stop Other chest pain -- cardiology consulted -- [place] to be atypical for CAD -- Suspect GI related -- If echocardiogram unremarkable, no further cardiac workup recommended -- Echocardiogram: * Left ventricular chamber dimension is normal. * Left ventricular function is normal with an estimated ejection fraction of 55-60%. * Left ventricular segmental wall motion is normal. * The left ventricular diastolic function is normal. * Right ventricular systolic function is normal. * Estimated pulmonary artery systolic pressure is 31 mmHg. History of DVT (deep vein thrombosis) History of pulmonary embolism -- appears to be provoked -- no longer on anticoagulation Iron deficiency anemia -- Hemoglobin normal. 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 -- no acute issues Nicotine dependence -- Affecting all aspects of patient's health and care -- Nicotine replacement patch. Patient discontinued. Underweight Moderate protein-calorie malnutrition -- Affecting all aspects of patient's health and care Evidence Supported Malnutrition Diagnosis: Moderate protein-calorie malnutrition Starvation Related (Social/Environmental) Indicators: moderate fat depletion; mild muscle mass depletion; < or equal to 50% energy intake compared to estimate energy needs for > or equal to 1 month (additional indicators, BMI @18.2 and @ 84% of IBW) Meals and Snacks: Full Liquid (no carbonated beverages) Parenteral Nutrition/IV Fluids: Advance TPN to goal feed of Clinimix 12/29 @ 70 ml/hr today , with addition of daily lipids Thursday = 84 g protein, 1693 kcal, 252 g carb, 3/1 mg carb/kg/min. @ Goal TPN will [id number]% of protein needs and low range of calorie needs. Oral intake is dependent on pts pain, therefore any oral intake is a bonus. Medical Food Supplements: Glucerna Therapeutic; Beneprotein Vitamin and Mineral Supplements: Vitamin D (w/Clinimix E) Nutrition-Related Medication Management: Protonix Collaboration And Referral Of Nutrition Care: Collaboration with other providers (NEWS CAMERAMAN, RN, Pharmacist) -- B12 and folate wnl. Iron normal. Transferrin sat low, TIBC wnl. Mag wnl. Phos wnl. 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 Continued -- improving History of endometrial cancer Vitamin D insufficiency -- Vitamin D supplementation ------ VTE Prophylaxis: Dietary Orders (From admission, onward) Ordered Full Liquid Diet Fluid Restriction(ml/24hr): No Carbonated Beverage DIET EFFECTIVE NOW Question: Fluid Restriction(ml/24hr): Answer: No Carbonated Beverage 07/05/25 1531 Plan: Discussed with staff--with RN, care conference with charge nurse Discussed with patient Continue with above and current treatment plans and per recommendations by consultants evaluating patient, with additions and exceptions as noted above. Please refer to orders for complete details of patient's care plans Medically Ready for Discharge?: No EDOD: 07/10/2025 Not Ready for Discharge because: Ongoing medical management as noted above Active Hospital Problems Diagnosis *Generalized abdominal pain Acute reaction to situational stress Vitamin D insufficiency Borderline personality disorder (HCC) Underweight Moderate protein-calorie malnutrition Dental infection Persistent recurrent vomiting History of endometrial cancer History of gastric bypass History of pulmonary embolism Cannabis dependence (HCC) Other chest pain Cardiac murmur History of chronic CHF Abdominal pain Suicidal ideations Paroxysmal atrial fibrillation (HCC) Chronic idiopathic constipation Chronic nausea Anorexia Estevan-Danlos disease Generalized anxiety disorder GERD (gastroesophageal reflux disease) History of DVT (deep vein thrombosis) HTN (hypertension) Iron deficiency anemia Peptic ulcer disease Acute exacerbation of chronic abdominal pain Chronic pain Insomnia due to mental disorder Major depressive disorder, recurrent, moderate (HCC) Nicotine dependence Chronic low back pain Adjustment disorder with mixed anxiety and depressed mood CC / HPI: Alexei Macias is a(n)40 y.o. female admitted for work-up and treatment for No chief complaint on file. Generalized abdominal pain Subjective: Doing okay. Pain under control with meds. No nausea vomiting. NEVAREZ earlier in AM. Better after compazine and mag IV. ROS: Cardiac negative. Medications reviewed Objective: Patient Vitals: BP Temp Temp src Pulse Resp SpO2 Weight 07/07/252001 91/57 98.2 ??F (36.8 ??C) Oral 61 16 100 % -- Physical Exam: General Alert, NAD Psych Emotional tonight Neck Supple Respiratory Respirations easy, CTA, =BS, good AM Cardiac RRR Abdominal +BS, Soft, ND, mildly tender in the mid upper abdomen Musculoskeletal No edema Neurologic Oriented. Nonfocal Lymph Skin Data reviewed: Recent Labs 07/04/25 0548 07/04/25 0548 07/04/25 0936 07/05/25 1701 07/05/25 1702 07/06/25 0505 07/07/25 0552 WBC 7.9 -- -- -- 7.8 -- -- HGB 10.4* -- -- -- 12.2 -- -- HCT 31.6* -- -- -- 37.0 -- -- MCV 88.8 -- -- -- 87.9 -- -- PLT 283 -- -- -- 319 -- -- NA 143 -- -- -- 138 140 139 K 4.4 -- -- -- 4.0 4.1 4.3 CL 107 -- -- -- 100 103 106 CO2 31* -- -- -- 28 28 29 BUN 10 -- -- -- 4* 5* 7 CREATININE 0.82 -- -- -- 0.76 0.79 0.81 MG -- < > -- -- 1.9 2.0 1.9 PREALBUMIN -- -- 14.7* -- 14.5* -- -- PROT 6.1* -- -- -- 7.6 6.0* -- ALT 6 -- -- -- 7 6 -- AST 15 -- -- -- 20 18 -- ALKPHOS 100 -- -- -- 127* 100 -- LABBILI 0.2 -- -- -- 0.3 0.2 -- BILIDIR <0.2 -- -- -- <0.2 <0.2 -- INR -- -- -- 1.06 -- -- -- PTT -- -- -- 34.9 -- -- -- < > = values in this interval not displayed. No results found. FSBS: Lab Results Component Value Date FSBS 82 07/07/2025 FSBS 135 (H) 07/07/2025 FSBS 171 (H) 07/07/2025 EKG tele, ordered for above reasons, reviewed personally: N/A Labs: Laboratory data and diagnostic testing personally reviewed from 07/07/25. Bradford Sauceda MD * Roxana Hodges - 07/07/2025 8:10 PM EST Images from the original note were not included. 07/07/251999 Reason for Visit Date of visit 07/07/25 Visited With Patient Visited By Resort Desk Clerk Reason for Visit Follow-up Interventions with Family Empowerment Interventions Provided city maintenance manager education (Resort Desk Clerk(s) will return Thu (07/10)) Care Plan Plan for Follow-Up Resort Desk Clerk(s) remains available as needed Additional Notes Additional Notes if needed (Alexei still catching up on much needed sleep. ) Roxana Hodges MDiv Resort Desk Clerk, Pastoral and Spiritual Care For non-urgent requests, please place a Pastoral Care consult in PSYCHIATRIC. For all urgent matters, please send an urgent [facility] Secure Chat to the Pastoral Care group at your location. Between 11pm and 7am, please use On-Call Finder to send an [facility] Secure Chat to the on-call slab conditioner supervisor. Pastoral Care office phone numbers: EDG/COV/GRT [phone], RASHEL [phone], FTT [phone], DBN [phone] * Roxana Hodges - 07/07/2025 5:53 PM EST Images from the original note were not included. 07/07/25 1700 Reason for Visit Date of visit 07/07/25 Visited With Patient asleep Visited By Resort Desk Clerk Reason for Visit Follow-up Interventions with Family Collaboration Interventions Consulted with interdisciplinary team Care Plan Plan for Follow-Up Resort Desk Clerk(s) will continue to follow throughout admission Roxana Hodges MDiv Resort Desk Clerk, Pastoral and Spiritual Care For non-urgent requests, please place a Pastoral Care consult in EPIC. For all urgent matters, please send an urgent Epic Secure Chat to the Pastoral Care group at your location. Between 11pm and 7am, please use On-Call Finder to send an Epic Secure Chat to the on-call slab conditioner supervisor. Pastoral Care office phone numbers: EDG/COV/GRT [phone], RASHEL [phone], FTT [phone], DBN [phone] * Roxana Hodges - 07/07/2025 3:30 PM EST 07/07/25 1500 Reason for Visit Date of visit 07/07/25 Visited With Patient not available Visited By Resort Desk Clerk Reason for Visit Follow-up Interventions with Family Collaboration Interventions Consulted with interdisciplinary team (Alexei marlow at this time) Care Plan Plan for Follow-Up Resort Desk Clerk(s) will continue to follow throughout admission Roxana Hodges MDiv Resort Desk Clerk, Pastoral and Spiritual Care For non-urgent requests, please place a Pastoral Care consult in EPIC. For all urgent matters, please send an urgent Epic Secure Chat to the Pastoral Care group at your location. Between 11pm and 7am, please use On-Call Finder to send an Epic Secure Chat to the on-call slab conditioner supervisor. Pastoral Care office phone numbers: EDG/COV/GRT [phone], RASHEL [phone], FTT [phone], DBN [phone] * Tiny Tellez [facility] - 07/07/2025 12:10 PM EST Pharmacy Note: TPN S: Alexei Macias is a(n) 40 y.o. female admitted with abdominal pain and recurrent vomiting with history of gastric bypass surgery (2020), cannabis use, and PUD. EGD findings on 07/05 with stricture at theGJ anastomosis. Pharmacy managing TPN electrolytes. O: Most Recent Labs: Recent Labs 07/04/25 0548 07/05/25 170 WBC 7.9 7.8 HGB 10.4* 12.2 HCT 31.6* 37.0 PLT 283 319 Recent Labs 07/05/25 1702 07/06/25 0505 07/07/25 0552 07/07/25 0819 NA 138 140 139 -- K 4.0 4.1 4.3 -- CL 100 103 106 -- CO2 28 28 29 -- CALCIUM 9.4 8.4* 8.1* -- CAIONIZED -- -- -- 1.15 BUN 4* 5* 7 -- CREATININE 0.76 0.79 0.81 -- GLU 130* 102* 118* -- Recent Labs 07/04/25 0548 07/04/25 0936 07/05/25 1702 07/06/25 0505 07/07/25 0552 ALKPHOS 100 -- 127* 100 -- MG -- -- 1.9 2.0 1.9 PHOS -- -- 3.3 4.4 3.8 PREALBUMIN -- 14.7* 14.5* -- -- Recent Labs 07/04/25 0548 07/05/25 1702 07/06/25 0505 ALT 6 7 6 AST 15 20 18 BILIDIR <0.2 <0.2 <0.2 LABBILI 0.2 0.3 0.2 Recent Labs 07/05/25 1702 TRIG 61 59 Recent Labs 07/05/25 170 INR 1.06 LABPT 12.2 Weight: 123 lb 4.8 oz (55.9 kg) A/P: Day 2 of TPN No plans to advance diet - patient will be discharged on TPN once set up Fingerstick blood glucose readings have been at goal (<180 mg/dL) Physician orders and progress notes reviewed. TPN formula: High Protein (150g CHO/L, 50g protein/L) TPN lipids: None currently TPN rate: 42 mL/hour --->advancing to goal of 70 mL/hr today Additional IV fluids: None Electrolytes stable. Advancing to goal rate this evening. No changes to TPN formulation. Will continue TPN electrolytes/additives with Clinimix-E Electrolytes/Additives: Sodium Chloride 10 mEq/L Sodium Acetate Trihydrate 25 mEq/L Potassium Phosphate 15 mmol/L (30 mEq K+) Calcium Chloride 4.5 mEq/L Magnesium Chloride 5 mEq/L MVI 10 mL/bag Trace Elements 1 mL/bag Pharmacy will follow patient and adjust electrolytes. Thank you, Tiny Tellez PharmSteff, BCPS 07/07/2025 12:09 PM * Maureen Mcleod RD,LD - 07/07/2025 9:16 AM EST [facility] Nutrition Malnutrition Reassessment Evidence Supported Malnutrition Diagnosis: Moderate protein-calorie malnutrition In the context of: Starvation Related (Social/Environmental) Indicators: moderate fat depletion, mild muscle mass depletion, < or equal to 50% energy intake compared to estimate energy needs for > or equal to 1 month (additional indicators, BMI @18.2 and @ 84% of IBW) Nutrition Problem/Diagnosis: Nutrition Diagnosis Problem 1: Moderate starvation related malnutrition related to psychological cause or life stress, altered GI function as evidenced by NPO or clear liquid status due to medical condition, criteria asidentified in malnutrition assessment, new medical diagnosis or change in existing diagnosis or condition. Status: Active nutrition diagnosis Nutrition Prescription: Kcals: 3468-2446 kcal (30-35 kcal/55.9 kg). Goals for possible refeeding syndrome= 559-1118 kcal (10-20 kcal/kg) Protein (g): 67-84 Protein needs based on: 1.2-1.5 g Pro/55.9 kg Fluid (ml): 1 ml/kcal or per MD Plan/Interventions: Meals and Snacks: Full Liquid (no carbonated beverages) Parenteral Nutrition/IV Fluids: Advance TPN to goal feed of Clinimix 5/15 @ 70 ml/hr today , with addition of daily lipids Thursday = 84 g protein, 1693 kcal, 252 g carb, 3/1 mg carb/kg/min. @ Goal TPN will % of protein needs and low range of calorie needs. Oral intake is dependent on pts pain, therefore any oral intake is a bonus. Medical Food Supplements: Glucerna Therapeutic, Beneprotein Medical Food/Supplement Freq: [place] Glucerna tid, Beneprotein tid Vitamin and Mineral Supplements: Vitamin D (w/Clinimix E) Nutrition-Related Medication Management: Protonix Nutrition Education: Supplements, TPN, Importance of nutrition to healing and recovery Collaboration And Referral Of Nutrition Care: Collaboration with other providers (NEWS CAMERAMAN, RN, Pharmacist) Nutrition Discharge Instructions: Home TPN (total parenteral nutrition) and oral diet as tolerated.Recommend continue strawberry Glucerna and protein powder of choice as tolerated Alexei Macias is a 40 y.o. female patient. Admit Diagnosis: Abdominal pain [R10.9] Anorexia [R63.0] Reason For Assessment: Parenteral nutrition Subjective: Subjective Comment: Pt seen, reports good tolerance to [place] diet. Yesterday reported liking [place] Glucerna and was willing to drink, but today she reports not drinking any yesterday. Per NEWS CAMERAMAN, ideally would like to d/c this weekend with home TPN. Labs look good, per discussion with NEWS CAMERAMAN and pharmacist, will advance TPN to goal. Food/Nutrition Related History: Dietary Orders Ordered Full Liquid Diet Fluid Restriction(ml/24hr): No Carbonated Beverage DIET EFFECTIVE NOW 07/05/25 1531 TPN Orders TPN ADULT w/ Electrolytes (Clinimix-E) DAILY 6PM Admin Instructions: This bag delivers the components listed below over 24 hours based on an infusion rate of 42 ml/hour. 50.4 grams/day Amino Acids 151.2 grams/day Dextrose 10.1 mEq/day Sodium Chloride 25.2 mEq/day Sodium Acetate Trihydrate 15.1 mmol/day Potassium Phosphate 4.5 mEq/day Calcium Chloride 5 mEq/day Magnesium Chloride 10 mL/day MVI (Multivitamin) 1 mL/day Trace Elements *Central LineUse Only* Use ONLY pharmacy supplied tubing and filter. Do not use extension sets longer than 7 inches. Infusion requires use of filter. For non- lipid days, utilize 0.22 micron filter set. Refer to Clinical Skills for additional information. Upon discontinuation of the TPN, ramp down the rate as follows: Decrease TPN rate by 50% for the first hour, then decrease rate again by 50% for the second hour, then discontinue TPN. If TPN rate is less than 25 mL/hr when ordered to be discontinued, then discontinue TPN without the taper. Check blood sugar at third hour after TPN discontinuation. VESICANT Electronically Signed By: Stephanie Adamson APRN [ ] BENEPROTEIN powder oral supplement 2 Packet Oral BID with Meals ENSURE High Protein oral supplement 1 Each Oral TID with Meals GLUCERNA Therapeutic oral supplement 1 'box' Oral TID with Meals 1 'box' at 07/06/25 0933 Food Insecurity Within the past 12 months, you worried that your food would run out before you got the money to buymore.: Often true Within the past 12 months, the food you bought just didn't last and you didn't have money to get more.: Often true Supplement Acceptance: Reports liking strwbry Glucerna, but did not drink yesterday TPN?: Yes Formula: Clinimix 12/29 Rate: 42 TPN Received (ml): 68 ml (?? reached out to RN about documentation) % of TPN Goal Rate Met: 4 % Nutrition Focused Physical Findings: LDAs- Active NG/OG/NJ,Wound,Pressure Injury,or Drain None I/O last 3 completed shifts: In: 2705 [P.O.:0067] Out: - Edema: Abdomen: Abdominal/GI Abdomen Inspection: Soft, Flat Bowel Sounds (All Quadrants): Active, Audible Abdominal palpation: Tenderness When was last BM? (Date): 07/04/25 Stool Assessment: Stool Occurrence: 1 Stool Appearance: Type 5 [place] Stool Chart Stool Color: Brown Stool Amount: Medium Biochemical Data/Medical Tests: Pertinent Labs: 07/07 gluc 118, mg 1.9, Na+ 139, K+ 4.3, phos 3.8 Clinical Course: Clinical Course: Admitted d/t Chronic CP and epigastric pain.Surgery, GI, Cardiology and Psych consulted. Chronic Nausea, PUD, Recurrent vomiting. Chronic idiopathic [id number] EGD-MD notes will need a surgical J tube or TPN. 07/06 start TPN * Tamara Karimi PA-C - 07/07/2025 9:00 AM EST General Surgery Attending Progress Note CSN:[id number] NAME:Alexei Macias :1985 Active Hospital Problems Diagnosis *Generalized abdominal pain Acute reaction to situational stress Vitamin D insufficiency Borderline personality disorder (HCC) Underweight Moderate protein-calorie malnutrition Dental infection Persistent recurrent vomiting History of endometrial cancer History of gastric bypass History of pulmonary embolism Cannabis dependence (HCC) Other chest pain Cardiac murmur History of chronic CHF Abdominal pain Suicidal ideations Paroxysmal atrial fibrillation (HCC) Chronic idiopathic constipation Chronic nausea Anorexia Estevan-Danlos disease Generalized anxiety disorder GERD (gastroesophageal reflux disease) History of DVT (deep vein thrombosis) HTN (hypertension) Iron deficiency anemia Peptic ulcer disease Acute exacerbation of chronic abdominal pain Chronic pain Insomnia due to mental disorder Major depressive disorder, recurrent, moderate (HCC) Nicotine dependence Chronic low back pain Adjustment disorder with mixed anxiety and depressed mood Impression/Plan: f/u generalized abdominal pain PICC line and TPN MIVF Oral antibiotics per primary (for abscessed tooth) PPI BID - diet as tolerated is reasonable from a surgery standpoint - but not to the point of causing pain or nausea or vomiting. full liquids is the recommendation per GI No acute surgical interventions planned at this time Rest of care per primary team Dr Cornelius/Dr Simon/Dr Mcdowell to follow with further recommendations General Surgery Disposition Perspective - Medically Ready for Discharge: Yes Timeframe for Follow-up?: 1-2 weeks F/U Appointment Schedule Method?: call [phone] Pain prescriptions sent to pharmacy?: No Antibiotic prescriptions sent to pharmacy?: No Adequate mobility?: Yes Will the patient need home health?: Yes Home Health Details: Per care coordination Will sign off?: Yes Subjective: sitting up in bed, denies nausea or vomiting. still asking for more food. Vitals: Vitals: 07/07/25 0728 07/07/25 0812 07/07/25 0821 07/07/25 1026 BP: (!) 83/48 (!) 89/49 100/61 BP Location: Left arm Patient Position: Pulse: 65 66 Resp: 16 Temp: 97.9 ??F (36.6 ??C) TempSrc: Oral SpO2: 99% 100% Weight: Height: I/O last 3 completed shifts: In: 2705 [P.O.:2637] Out: - I/O this shift: In: 560.7 Out: - FULL LIQUID DIET Exam: BP 100/61 (BP Location: Left arm) Pulse 66 Temp 97.9 ??F (36.6 ??C) (Oral) Resp 16 Ht 5' 9 (1.753 m) Wt 123 lb 4.8 oz (55.9 kg) SpO2 100% BMI 18.21 kg/m?? General appearance: alert, appears stated age, cachectic, cooperative, and no distress Abdomen: soft, scaphoid abdomen, tender in epigastrium Labs: Recent Results (from the past 48 hours) PATHOLOGY TISSUE REQUEST Collection Time: 07/05/25 2:31 PM Result Value Ref Range CASE REPORT Surgical Pathology Case: [id number] Authorizing Provider: David Peguero MD Collected: 07/05/2025 1431 Ordering Location: [address] Received: 07/05/2025 1534 Pathologist: Marilou Stanton MD Specimen: Gastric, Gastric biopsies via forceps FINAL DIAGNOSIS A. Gastric biopsies: - Gastric body type mucosa with mild chronic inflammation. - Negative for H. pylori organisms on H&E stained slides. GROSS DESCRIPTION A. Received in formalin and labeled with the patient's name, medical record number, and gastric biopsies are 4 fragments of yost tissue ranging from 0.5 to 0.6 cm in greatest dimension. Entirely submitted in A1. Jame Lancaster 07/06/2025 MICROSCOPIC DESCRIPTION The microscopic examination may have been rendered in whole, or in part, by analyzing high-resolution digital images (whole slide images) on the [employer] Digital Pathology platform validated at [facility]. EMBEDDED IMAGES PT / INR Collection Time: 07/05/25 5:01 PM Result Value Ref Range PT 12.2 10.5 - 13.6 second(s) INR 1.06 0.91 - 1.18 (ratio) PARTIAL THROMBOPLASTIN TIME Collection Time: 07/05/25 5:01 PM Result Value Ref Range PTT 34.9 25.7 - 36.8 second(s) BASIC METABOLIC PANEL Collection Time: 07/05/25 5:02 PM Result Value Ref Range Sodium 138 136 - 145 mmol/L Potassium 4.0 3.5 - 5.0 mmol/L Chloride 100 98 - 107 mmol/L Total CO2 28 22 - 29 mmol/L Anion Gap 10 7 - 16 mmol/L Calcium 9.4 8.6 - 10.4 mg/dL Glucose Lvl 130 (H) 70 - 99 mg/dL BUN 4 (L) 6 - 20 mg/dL Creatinine 0.76 0.51 - 1.30 mg/dL eGFR (CKD-EPIcr 2020) 100 >=60 mL/min/1.73 m2 CBC Collection Time: 07/05/25 5:02 PM Result Value Ref Range WBC 7.8 3.7 - 10.3 x10(3)/mcL RBC 4.21 3.90 - 5.20 x10(6)/mcL Hgb 12.2 11.2 - 15.7 g/dL Hct 37.0 34.0 - 45.0 % MCV 87.9 80.0 - 100.0 fL MCH 29.0 26.0 - 34.0 pg MCHC 33.0 30.7 - 35.5 g/dL RDW 13.2 <=14.9 % Platelet 319 155 - 369 x10(3)/mcL MPV 8.7 (L) 8.8 - 12.5 fL HEPATIC FUNCTION PANEL Collection Time: 07/05/25 5:02 PM Result Value Ref Range Total Protein 7.6 6.4 - 8.3 gm/dL Albumin 4.0 3.5 - 5.2 gm/dL Bili Direct <0.2 0.0 - 0.3 mg/dL Bili Total 0.3 0.2 - 1.3 mg/dL AST 20 <=40 U/L ALT 7 <=41 U/L Alk Phos 127 (H) 36 - 123 U/L PHOSPHORUS LEVEL Collection Time: 07/05/25 5:02 PM Result Value Ref Range Phosphorus 3.3 2.5 - 4.5 mg/dL MAGNESIUM LEVEL Collection Time: 07/05/25 5:02 PM Result Value Ref Range Magnesium 1.9 1.6 - 2.4 mg/dL TRIGLYCERIDES Collection Time: 07/05/25 5:02 PM Result Value Ref Range Triglyceride 59 <150 mg/dL PREALBUMIN Collection Time: 07/05/25 5:02 PM Result Value Ref Range Prealbumin 14.5 (L) 20.0 - 40.0 mg/dL TRIGLYCERIDES Collection Time: 07/05/25 5:02 PM Result Value Ref Range Triglyceride 61 <150 mg/dL BASIC METABOLIC PANEL Collection Time: 07/06/25 5:05 AM Result Value Ref Range Sodium 140 136 - 145 mmol/L Potassium 4.1 3.5 - 5.0 mmol/L Chloride 103 98 - 107 mmol/L Total CO2 28 22 - 29 mmol/L Anion Gap 9 7 - 16 mmol/L Calcium 8.4 (L) 8.6 - 10.4 mg/dL Glucose Lvl 102 (H) 70 - 99 mg/dL BUN 5 (L) 6 - 20 mg/dL Creatinine 0.79 0.51 - 1.30 mg/dL eGFR (CKD-EPIcr 2020) 95 >=60 mL/min/1.73 m2 HEPATIC FUNCTION PANEL Collection Time: 07/06/25 5:05 AM Result Value Ref Range Total Protein 6.0 (L) 6.4 - 8.3 gm/dL Albumin 3.2 (L) 3.5 - 5.2 gm/dL Bili Direct <0.2 0.0 - 0.3 mg/dL Bili Total 0.2 0.2 - 1.3 mg/dL AST 18 <=40 U/L ALT 6 <=41 U/L Alk Phos 100 36 - 123 U/L PHOSPHORUS LEVEL Collection Time: 07/06/25 5:05 AM Result Value Ref Range Phosphorus 4.4 2.5 - 4.5 mg/dL MAGNESIUM LEVEL Collection Time: 07/06/25 5:05 AM Result Value Ref Range Magnesium 2.0 1.6 - 2.4 mg/dL EC ECHOCARDIOGRAM COMPLETE W DOPPLER AND COLOR FLOW MAPPING Collection Time: 07/06/25 9:37 AM Result Value Ref Range Ejection Fraction 55-60% LV DIASTOLIC PLAX 4.6 cm MITRAL REGURGITATION trace AORTIC STENOSIS no GLUCOSE METER POC Collection Time: 07/07/25 12:04 AM Result Value Ref Range Glucose Meter POC 171 (H) 70 - 100 mg/dL Sample Type Capillary Patient Status Non-Critical Patient GLUCOSE METER POC Collection Time: 07/07/25 5:47 AM Result Value Ref Range Glucose Meter POC 135 (H) 70 - 100 mg/dL Sample Type Capillary Patient Status Non-Critical Patient BASIC METABOLIC PANEL Collection Time: 07/07/25 5:52 AM Result Value Ref Range Sodium 139 136 - 145 mmol/L Potassium 4.3 3.5 - 5.0 mmol/L Chloride 106 98 - 107 mmol/L Total CO2 29 22 - 29 mmol/L Anion Gap 4 (L) 7 - 16 mmol/L Calcium 8.1 (L) 8.6 - 10.4 mg/dL Glucose Lvl 118 (H) 70 - 99 mg/dL BUN 7 6 - 20 mg/dL Creatinine 0.81 0.51 - 1.30 mg/dL eGFR (CKD-EPIcr 2020) 92 >=60 mL/min/1.73 m2 PHOSPHORUS LEVEL Collection Time: 07/07/25 5:52 AM Result Value Ref Range Phosphorus 3.8 2.5 - 4.5 mg/dL MAGNESIUM LEVEL Collection Time: 07/07/25 5:52 AM Result Value Ref Range Magnesium 1.9 1.6 - 2.4 mg/dL IONIZED CALCIUM - INPATIENT Collection Time: 07/07/25 8:19 AM Result Value Ref Range Calcium Ionized 1.15 1.12 - 1.32 mmol/L Imaging: No results found. Tamara Karimi PA-C Cosigned by Bright Cornelius MD at 07/07/2025 12:20 PM EST Associated attestation - Bright Cornelius MD - 07/07/2025 12:20 PM EST Patient not seen Chart reviewed and discussed with team No plans for any surgery until she quits smoking. OK to d/c on TPN. F/U in office * Bradford Sauceda MD - 07/06/2025 10:27 PM ESTAssociated Problem(s): History of pulmonary embolism -- appears to be provoked -- no longer on anticoagulation * Bradford Sauceda MD - 07/06/2025 10:27 PM ESTAssociated Problem(s): Iron deficiency anemia -- Hemoglobin normal. MCV * Bradford Sauceda MD - 07/06/2025 10:27 PM ESTAssociated Problem(s): Chronic low back pain Chronic abdominal pain -- Lyrica 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 Continued -- Pain controlled with meds * Bradford Sauceda MD - 07/06/2025 10:27 PM ESTAssociated Problem(s): Chronic pain Chronic abdominal pain -- Lyrica 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 Continued -- Pain controlled with meds * Bradford Sauceda MD - 07/06/2025 10:27 PM ESTAssociated Problem(s): Cardiac murmur -- Echo as noted above * Bradford Sauceda MD - 07/06/2025 10:27 PM ESTAssociated Problem(s): History of chronic CHF -- not on any meds 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 * Bradford Sauceda MD - 07/06/2025 10:27 PM ESTAssociated Problem(s): Nicotine dependence -- Affecting all aspects of patient's health and care -- Nicotine replacement patch. Patient discontinued. * Bradford Sauceda MD - 07/06/2025 10:27 PM ESTAssociated Problem(s): Underweight -- Affecting all aspects of patient's health and care Evidence Supported Malnutrition Diagnosis: Moderate protein-calorie malnutrition Starvation Related (Social/Environmental) Indicators: moderate fat depletion; mild muscle mass depletion; < or equal to 50% energy intake compared to estimate energy needs for > or equal to 1 month (additional indicators, BMI @18.2 and @ 84% of IBW) Meals and Snacks: Full Liquid (no carbonated beverages) Parenteral Nutrition/IV Fluids: Recommend Clinimix 5/15 @ 42 ml/hr =50 g protein, 710 kcal. As tolerated recommend advance to ultimate goal feed of Clinimix 5/15 @ 70 ml/hr with daily lipids = 84 g protein, 1693 kcal, 252 g carb, 3/1 mg carb/kg/min. @ Goal TPN will [id number]% of protein needs and low range of calorie needs. Oral intake is dependent on pts pain, therefore any oral intake is a bonus. Medical Food Supplements: Glucerna Therapeutic; Beneprotein Vitamin and Mineral Supplements: Vitamin D (w/Clinimix E) Nutrition-Related Medication Management: Protonix, LR's @ 75 ml/hr Collaboration And Referral Of Nutrition Care: Collaboration with other providers (NEWS CAMERAMAN, RN) -- B12 and folate wnl. Iron normal. Transferrin sat low, TIBC wnl. Mag wnl. Phos wnl. Triglyceride 59 -- Prealbumin 14.7 -- TPN * Bradford Sauceda MD - 07/06/2025 10:27 PM ESTAssociated Problem(s): Moderate protein-calorie malnutrition -- Affecting all aspects of patient's health and care Evidence Supported Malnutrition Diagnosis: Moderate protein-calorie malnutrition Starvation Related (Social/Environmental) Indicators: moderate fat depletion; mild muscle mass depletion; < or equal to 50% energy intake compared to estimate energy needs for > or equal to 1 month (additional indicators, BMI @18.2 and @ 84% of IBW) Meals and Snacks: Full Liquid (no carbonated beverages) Parenteral Nutrition/IV Fluids: Recommend Clinimix 5/15 @ 42 ml/hr =50 g protein, 710 kcal. As tolerated recommend advance to ultimate goal feed of Clinimix 5/15 @ 70 ml/hr with daily lipids = 84 g protein, 1693 kcal, 252 g carb, 3/1 mg carb/kg/min. @ Goal TPN will [id number]% of protein needs and low range of calorie needs. Oral intake is dependent on pts pain, therefore any oral intake is a bonus. Medical Food Supplements: Glucerna Therapeutic; Beneprotein Vitamin and Mineral Supplements: Vitamin D (w/Clinimix E) Nutrition-Related Medication Management: Protonix, LR's @ 75 ml/hr Collaboration And Referral Of Nutrition Care: Collaboration with other providers (NEWS CAMERAMAN, RN) -- B12 and folate wnl. Iron normal. Transferrin sat low, TIBC wnl. Mag wnl. Phos wnl. Triglyceride 59 -- Prealbumin 14.7 -- TPN * Bradford Sauceda MD - 07/06/2025 10:27 PM ESTAssociated Problem(s): Dental infection -- Augmentin 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 Continued -- improving * Bradford Sauceda MD - 07/06/2025 10:27 PM ESTAssociated Problem(s): Vitamin D insufficiency -- Vitamin D supplementation * Bradford Sauceda MD - 07/06/2025 10:27 PM ESTAssociated Problem(s): Generalized abdominal pain -- OTC PPI 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 This is most likely the site of the gastro-jejunostomy. This could not be traversed with the scope. Performed forceps biopsies in the stomach to rule out H. pylori. The esophagus appeared normal. GI Recommendation Await pathology results Pantoprazole 40mg BID Sucralfate QID I do not expect patient to be able to tolerate solid food. She will need a surgical J tube or TPN. -- Pathology: A. Gastric biopsies: - Gastric body type mucosa with mild chronic inflammation. - Negative for H. pylori organisms on H&E stained slides. 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 This is most likely the site of the gastro-jejunostomy. This could not be traversed with the scope. Performed forceps biopsies in the stomach to rule out H. pylori. The esophagus appeared normal. GI Recommendation Await pathology results Pantoprazole 40mg BID Sucralfate QID I do not expect patient to be able to tolerate solid food. She will need a surgical J tube or TPN. -- Pathology: A. Gastric biopsies: - Gastric body type mucosa with mild chronic inflammation. - Negative for H. pylori organisms on H&E stained slides. -- starting on TPN per general surgery recommendations -- recommended * Bradford Sauceda MD - 07/06/2025 10:27 PM ESTAssociated Problem(s): History of gastric bypass -- OTC PPI 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 This is most likely the site of the gastro-jejunostomy. This could not be traversed with the scope. Performed forceps biopsies in the stomach to rule out H. pylori. The esophagus appeared normal. GI Recommendation Await pathology results Pantoprazole 40mg BID Sucralfate QID I do not expect patient to be able to tolerate solid food. She will need a surgical J tube or TPN. -- Pathology: A. Gastric biopsies: - Gastric body type mucosa with mild chronic inflammation. - Negative for H. pylori organisms on H&E stained slides. -- starting on TPN per general surgery recommendations -- recommended * Bradford Sauceda MD - 07/06/2025 10:27 PM ESTAssociated Problem(s): Chronic nausea -- OTC PPI 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 This is most likely the site of the gastro-jejunostomy. This could not be traversed with the scope. Performed forceps biopsies in the stomach to rule out H. pylori. The esophagus appeared normal. GI Recommendation Await pathology results Pantoprazole 40mg BID Sucralfate QID I do not expect patient to be able to tolerate solid food. She will need a surgical J tube or TPN. -- Pathology: A. Gastric biopsies: - Gastric body type mucosa with mild chronic inflammation. - Negative for H. pylori organisms on H&E stained slides. -- starting on TPN per general surgery recommendations -- recommended * Bradford Sauceda MD - 07/06/2025 10:27 PM ESTAssociated Problem(s): GERD (gastroesophageal reflux disease) -- OTC PPI 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 This is most likely the site of the gastro-jejunostomy. This could not be traversed with the scope. Performed forceps biopsies in the stomach to rule out H. pylori. The esophagus appeared normal. GI Recommendation Await pathology results Pantoprazole 40mg BID Sucralfate QID I do not expect patient to be able to tolerate solid food. She will need a surgical J tube or TPN. -- Pathology: A. Gastric biopsies: - Gastric body type mucosa with mild chronic inflammation. - Negative for H. pylori organisms on H&E stained slides. -- starting on TPN per general surgery recommendations -- recommended * Bradford Sauceda MD - 07/06/2025 10:27 PM ESTAssociated Problem(s): Peptic ulcer disease -- OTC PPI 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 This is most likely the site of the gastro-jejunostomy. This could not be traversed with the scope. Performed forceps biopsies in the stomach to rule out H. pylori. The esophagus appeared normal. GI Recommendation Await pathology results Pantoprazole 40mg BID Sucralfate QID I do not expect patient to be able to tolerate solid food. She will need a surgical J tube or TPN. -- Pathology: A. Gastric biopsies: - Gastric body type mucosa with mild chronic inflammation. - Negative for H. pylori organisms on H&E stained slides. -- starting on TPN per general surgery recommendations -- recommended * Bradford Sauceda MD - 07/06/2025 10:27 PM ESTAssociated Problem(s): Persistent recurrent vomiting -- OTC PPI 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 This is most likely the site of the gastro-jejunostomy. This could not be traversed with the scope. Performed forceps biopsies in the stomach to rule out H. pylori. The esophagus appeared normal. GI Recommendation Await pathology results Pantoprazole 40mg BID Sucralfate QID I do not expect patient to be able to tolerate solid food. She will need a surgical J tube or TPN. -- Pathology: A. Gastric biopsies: - Gastric body type mucosa with mild chronic inflammation. - Negative for H. pylori organisms on H&E stained slides. -- starting on TPN per general surgery recommendations -- recommended * Bradford Sauceda MD - 07/06/2025 10:27 PM ESTAssociated Problem(s): Chronic idiopathic constipation -- GI consulted * Bradford Sauceda MD - 07/06/2025 10:27 PM ESTAssociated Problem(s): Paroxysmal atrial fibrillation (HCC) -- history not clear -- not on any meds * Bradford Sauceda MD - 07/06/2025 10:27 PM ESTAssociated Problem(s): HTN (hypertension) -- not on any meds CUT IN WORKER -- monitor -- 07/06/2025 in acceptable range * Bradford Sauceda MD - 07/06/2025 10:27 PM ESTAssociated Problem(s): Generalized anxiety disorder -- Ativan, Alicial, Seroquel 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 Continued -- psychiatry consulted * Bradford Sauceda MD - 07/06/2025 10:27 PM ESTAssociated Problem(s): Major depressive disorder, recurrent, moderate (HCC) -- AtivanAlicial Seroquel 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 Continued -- psychiatry consulted * Bradford Sauceda MD - 07/06/2025 10:27 PM ESTAssociated Problem(s): Insomnia due to mental disorder -- Ativan, Alicial, Seroquel 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 Continued -- psychiatry consulted * Bradford Sauceda MD - 07/06/2025 10:27 PM ESTAssociated Problem(s): Adjustment disorder with mixed anxiety and depressed mood -- AtivanJay Seroquel 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 Continued -- psychiatry consulted * Bradford Sauceda MD - 07/06/2025 10:27 PM ESTAssociated Problem(s): Acute reaction to situational stress -- AtivanJay Seroquel 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 Continued -- psychiatry consulted * Bradford Sauceda MD - 07/06/2025 10:27 PM ESTAssociated Problem(s): Borderline personality disorder (HCC) -- Ativan, Vistaril, Seroquel 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 Continued -- psychiatry consulted * Bradford Sauceda MD - 07/06/2025 10:27 PM ESTAssociated Problem(s): Suicidal ideations -- Psychiatry consulted -- Suicide precautions -- Improved. No current suicidal ideations or Intent. -- CBO and suicide precautions discontinued. -- To follow-up outpatient with her mental health providers * Bradford Sauceda MD - 07/06/2025 10:27 PM ESTAssociated Problem(s): Anorexia -- Psychiatry and GI consulted * Bradford Sauceda MD - 07/06/2025 10:27 PM ESTAssociated Problem(s): Cannabis dependence (HCC) -- Advised to stop * Bradford Sauceda MD - 07/06/2025 10:27 PM ESTAssociated Problem(s): Other chest pain -- cardiology consulted -- [place] to be atypical for CAD -- Suspect GI related -- If echocardiogram unremarkable, no further cardiac workup recommended -- Echocardiogram: * Left ventricular chamber dimension is normal. * Left ventricular function is normal with an estimated ejection fraction of 55-60%. * Left ventricular segmental wall motion is normal. * The left ventricular diastolic function is normal. * Right ventricular systolic function is normal. * Estimated pulmonary artery systolic pressure is 31 mmHg. * Bradford Sauceda MD - 07/06/2025 10:27 PM ESTAssociated Problem(s): History of DVT (deep vein thrombosis) -- appears to be provoked -- no longer on anticoagulation * Bradford Sauceda MD - 07/06/2025 10:16 PM EST Images from the original note were not included. 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 This is most likely the site of the gastro-jejunostomy. This could not be traversed with the scope. Performed forceps biopsies in the stomach to rule out H. pylori. The esophagus appeared normal. GI Recommendation Await pathology results Pantoprazole 40mg BID Sucralfate QID I do not expect patient to be able to tolerate solid food. She will need a surgical J tube or TPN. -- Pathology: A. Gastric biopsies: - Gastric body type mucosa with mild chronic inflammation. - Negative for H. pylori organisms on H&E stained slides. 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 Continued -- psychiatry consulted Suicidal ideations -- Psychiatry consulted -- Suicide precautions -- Improved. No current suicidal ideations or Intent. -- CBO and suicide precautions discontinued. -- To follow-up outpatient with her mental health providers Anorexia -- Psychiatry and GI consulted Cannabis dependence (HCC) -- Advised to stop Other chest pain -- cardiology consulted -- [place] to be atypical for CAD -- Suspect GI related -- If echocardiogram unremarkable, no further cardiac workup recommended -- Echocardiogram: * Left ventricular chamber dimension is normal. * Left ventricular function is normal with an estimated ejection fraction of 55-60%. * Left ventricular segmental wall motion is normal. * The left ventricular diastolic function is normal. * Right ventricular systolic function is normal. * Estimated pulmonary artery systolic pressure is 31 mmHg. History of DVT (deep vein thrombosis) History of pulmonary embolism -- appears to be provoked -- no longer on anticoagulation Iron deficiency anemia -- Hemoglobin normal. 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 Nicotine dependence -- Affecting all aspects of patient's health and care -- Nicotine replacement patch. Patient discontinued. Underweight Moderate protein-calorie malnutrition -- Affecting all aspects of patient's health and care Evidence Supported Malnutrition Diagnosis: Moderate protein-calorie malnutrition Starvation Related (Social/Environmental) Indicators: moderate fat depletion; mild muscle mass depletion; < or equal to 50% energy intake compared to estimate energy needs for > or equal to 1 month (additional indicators, BMI @18.2 and @ 84% of IBW) Meals and Snacks: Full Liquid (no carbonated beverages) Parenteral Nutrition/IV Fluids: Recommend Clinimix 5/15 @ 42 ml/hr =50 g protein, 710 kcal. As tolerated recommend advance to ultimate goal feed of Clinimix 5/15 @ 70 ml/hr with daily lipids = 84 g protein, 1693 kcal, 252 g carb, 3/1 mg carb/kg/min. @ Goal TPN will [id number]% of protein needs and low range of calorie needs. Oral intake is dependent on pts pain, therefore any oral intake is a bonus. Medical Food Supplements: Glucerna Therapeutic; Beneprotein Vitamin and Mineral Supplements: Vitamin D (w/Clinimix E) Nutrition-Related Medication Management: Protonix, LR's @ 75 ml/hr Collaboration And Referral Of Nutrition Care: Collaboration with other providers (GINA, RN) -- B12 and folate wnl. Iron normal. Transferrin sat low, TIBC wnl. Mag wnl. Phos wnl. 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 Continued -- improving History of endometrial cancer Vitamin D insufficiency -- Vitamin D supplementation ------ VTE Prophylaxis: Dietary Orders (From admission, onward) Ordered Full Liquid Diet Fluid Restriction(ml/24hr): No Carbonated Beverage DIET EFFECTIVE NOW Question: Fluid Restriction(ml/24hr): Answer: No Carbonated Beverage 07/05/25 1531 Plan: Discussed with staff--with RN, care conference with charge nurse, care coordination/ social serviceand clinical pharmacist Discussed with patient Work on arranging home TPN Continue with above and current treatment plans and per recommendations by consultants evaluating patient, with additions and exceptions as noted above. Please refer to orders for complete details of patient's care plans Medically Ready for Discharge?: No EDOD: 07/13/2025 Not Ready for Discharge because: Ongoing medical management as noted above Active Hospital Problems Diagnosis *Generalized abdominal pain Acute reaction to situational stress Vitamin D insufficiency Borderline personality disorder (HCC) Underweight Moderate protein-calorie malnutrition Dental infection Persistent recurrent vomiting History of endometrial cancer History of gastric bypass History of pulmonary embolism Cannabis dependence (HCC) Other chest pain Cardiac murmur History of chronic CHF Abdominal pain Suicidal ideations Paroxysmal atrial fibrillation (HCC) Chronic idiopathic constipation Chronic nausea Anorexia Estevan-Danlos disease Generalized anxiety disorder GERD (gastroesophageal reflux disease) History of DVT (deep vein thrombosis) HTN (hypertension) Iron deficiency anemia Peptic ulcer disease Acute exacerbation of chronic abdominal pain Chronic pain Insomnia due to mental disorder Major depressive disorder, recurrent, moderate (HCC) Nicotine dependence Chronic low back pain Adjustment disorder with mixed anxiety and depressed mood CC / HPI: Alexei Macias is a(n)40 y.o. female admitted for work-up and treatment for No chief complaint on file. Generalized abdominal pain Subjective: Feeling better. Pain controlled. No nausea or vomiting. Says she actually is feeling hungry and wants to eat more food. Says that this has not happened in a long time. ROS: Respiratory negative. No BM. Reports she is committed to stopping tobacco and cannabis. Denies any suicidal ideations or plans Medications reviewed: amoxicillin-clavulanate 1 Tablet Oral BID BENEPROTEIN powder 2 Packet Oral BID with Meals cholecalciferol (vitamin D3) 1,000 Units Oral Daily ENSURE High Protein 1 Box Oral TID with Meals estradioL 4 g Vaginal Once per day on Thursday flu vac triv (PF) 0.5 mL Intramuscular ONCE GLUCERNA Therapeutic 1 'box' Oral TID with Meals mupirocin Nasal BID pantoprazole 40 mg Oral BID polyethylene glycol 17 g Oral BID pregabalin 200 mg Oral BID QUEtiapine 100 mg Oral Nightly sodium chloride 0.9% 10 mL Intravenous 3 times per day TPN ADULT w/ Electrolytes (Clinimix-E) 42 mL/hr at 07/06/25 194 acetaminophen, alteplase, bisacodyL, hydrOXYzine, LORazepam, ondansetron OR ondansetron, oxyCODONE, sodium chloride 0.9%, sodium chloride 0.9% Objective: Patient Vitals for the past 24 hrs: BP Temp Temp src Pulse Resp SpO2 Weight 07/06/25 2100 105/61 98.7 ??F (37.1 ??C) Oral 82 18 100 % -- 07/06/25 1514 (!) 89/61 98.7 ??F (37.1 ??C) Oral 88 18 100 % -- 07/06/25 0916 101/74 97.9 ??F (36.6 ??C) Oral 78 18 100 % -- 07/06/25 0511 -- -- -- -- -- -- 123 lb 4.8 oz (55.9 kg) Physical Exam: General Alert, NAD Psych Normal mood and affect Neck Supple Respiratory Respirations easy, CTA, =BS, good AM Cardiac RRR Abdominal +BS, Soft, ND, mild mid to upper abdominal tenderness. Musculoskeletal No edema Neurologic Oriented. Speech normal. Follows simple. Lymph Skin Data reviewed: Recent Labs 07/04/25 0548 07/04/25 0936 07/05/25 1701 07/05/25 1702 07/06/25 0505 WBC 7.9 -- -- 7.8 -- HGB 10.4* -- -- 12.2 -- HCT 31.6* -- -- 37.0 -- MCV 88.8 -- -- 87.9 -- PLT 283 -- -- 319 -- NA 143 -- -- 138 140 K 4.4 -- -- 4.0 4.1 CL 107 -- -- 100 103 CO2 31* -- -- 28 28 BUN 10 -- -- 4* 5* CREATININE 0.82 -- -- 0.76 0.79 MG -- -- -- 1.9 2.0 PREALBUMIN -- 14.7* -- 14.5* -- PROT 6.1* -- -- 7.6 6.0* ALT 6 -- -- 7 6 AST 15 -- -- 20 18 ALKPHOS 100 -- -- 127* 100 LABBILI 0.2 -- -- 0.3 0.2 BILIDIR <0.2 -- -- <0.2 <0.2 INR -- -- 1.06 -- -- PTT -- -- 34.9 -- -- EC ECHOCARDIOGRAM COMPLETE W DOPPLER AND COLOR FLOW MAPPING Result Date: 07/06/2025 Conclusions * Left ventricular chamber dimension is normal. * Left ventricular function is normal with an estimated ejection fraction of 55-60%. * Left ventricular segmental wall motion is normal. * The left ventricular diastolic function is normal. * Right ventricular systolic function is normal. * Estimated pulmonary artery systolic pressure is 31 mmHg. US 3GC VERIFICATION Result Date: 07/06/2025 PICC placement performed at the bedside. The study images are for reference only and will not be interpreted by a radiologist. Placement will be determined by the bedside PICC nurse, utilizing 3CG technology. FSBS: No results found for: FSBS EKG tele, ordered for above reasons, reviewed personally: N/A 6 Labs: Laboratory data and diagnostic testing personally reviewed from 07/06/25. Bradford Sauceda MD * Roxana Hodges - 07/06/2025 9:24 PM EST Images from the original note were not included. 07/06/25 2100 Reason for Visit Date of visit 07/06/25 Visited With Patient Visited By Resort Desk Clerk Reason for Visit Follow-up Care Plan Plan for Follow-Up Resort Desk Clerk(s) will attempt follow-up visit(s) Additional Notes Additional Notes if needed Alexei keeps falling asleep, asked slab conditioner supervisor to come back tomorrow. Director Of Casework Services will follow-up earlier in the afternoon 07/07. Roxana Hodges MDiv Resort Desk Clerk, Pastoral and Spiritual Care For non-urgent requests, please place a Pastoral Care consult in PSYCHIATRIC. For all urgent matters, please send an urgent Epic Secure Chat to the Pastoral Care group at your location. Between 11pm and 7am, please use On-Call Finder to send an Epic Secure Chat to the on-call slab conditioner supervisor. [facility]: EDG/COV/GRT [phone], RASHEL [phone], FTT [phone], DBN [phone] * Roxana Hodges - 07/06/2025 7:59 PM EST Images from the original note were not included. 07/06/25 1900 Reason for Visit Date of visit 07/06/25 Visited With Patient asleep Visited By Resort Desk Clerk Reason for Visit Follow-up Interventions with Family Collaboration Interventions Consulted with interdisciplinary team Care Plan Plan for Follow-Up Resort Desk Clerk(s) will attempt follow-up visit(s) Roxana Hodges MDiv Resort Desk Clerk, Pastoral and Spiritual Care For non-urgent requests, please place a Pastoral Care consult in PSYCHIATRIC. For all urgent matters, please send an urgent Epic Secure Chat to the Pastoral Care group at your location. Between 11pm and 7am, please use On-Call Finder to send an Epic Secure Chat to the on-call slab conditioner supervisor. [facility]: EDG/COV/GRT [phone], RASHEL [phone], FTT [phone], DBN [phone] * Kelli Woods MSW - 07/06/2025 4:54 PM EST 07/06/2025 CAKE ICER/ SHYANNE GARCIA checked in and followed up with patient regarding JACY consult for cannabis and tobacco. Patient presented in bed coloring. No JACY questions or needs identified. Patient reports she will look at resources provided when she gets out of the hospital. Patient declined discussing the mental health outpatient treatment. SHYANNE GARCIA following along as needed. * Kelli Granados APRN - 07/06/2025 1:59 PM EST Inpatient Psychiatry Progress Note Admit Date: 07/03/2025 LOS: 3 days Attending: Zackery Villegas MD Subjective: The patient was seen for psychiatric follow-up for suicidal comments. Uo in room, organizing bedside table. Says he anxiety is ???through the roof?? Her mother is lying in the hospital bed on approach. She is able to recite her EGD test results Pain still controlled adamantly denies active SI Fay for safety denies ever saying anything about bleeding out however that is false because not only has she said it to staff, she said it to me yesterday None the less she has consistently denied intent despite her comments; just vividly describes her plan if she were to make an attempt Seems future oriented Has to stop smoking prior to PEG tube placement Objective: Patient Vitals for the past 24 hrs: BP Temp Temp src Pulse Resp SpO2 Weight 07/06/25 0916 101/74 97.9 ??F (36.6 ??C) Oral 78 18 100 % -- 07/06/25 0511 -- -- -- -- -- -- 123 lb 4.8 oz (55.9 kg) 07/05/25 1940 100/67 99.1 ??F (37.3 ??C) Oral 108 18 96 % -- 07/05/25 1544 134/89 97.8 ??F (36.6 ??C) Oral 104 18 94 % -- 07/05/25 1508 118/98 -- -- 95 18 99 % -- 07/05/25 1449 98/73 -- -- 59 16 97 % -- 07/05/25 1436 92/66 98.2 ??F (36.8 ??C) Forehead -- 16 97 % -- Review of Systems: For complete review of systems, please refer to H&P done by hospitalist. General: No distress. Neuro:+ for weakness + speech changes Psych/Behavioral: The patient is nervous/anxious. + for depression + substance use Scheduled Meds: amoxicillin-clavulanate 1 Tablet Oral BID BENEPROTEIN powder 2 Packet Oral BID with Meals cholecalciferol (vitamin D3) 1,000 Units Oral Daily ENSURE High Protein 1 Box Oral TID with Meals estradioL 4 g Vaginal Once per day on Thursday flu vac triv (PF) 0.5 mL Intramuscular ONCE GLUCERNA Therapeutic 1 'box' Oral TID with Meals mupirocin Nasal BID pantoprazole 40 mg Oral BID polyethylene glycol 17 g Oral BID pregabalin 200 mg Oral BID QUEtiapine 100 mg Oral Nightly sodium chloride 0.9% 10 mL Intravenous 3 times per day Mental Status Exam: (there are no changes to the MSE from the previous day encounter) Estimated Reliability: Questionable Musculoskeletal: resting in bed Gait: not tested Appearance: Fair Dress: Gown Psychomotor Activity: Normal Attitude: Cooperative Responsiveness: Alert Speech:Normal rate and tone Mood: ???anxious?? Affect: Appropriate Thought Process: Goal Directed Thought Content: No Disturbances Perception: No Disturbances Orientation: Person, Place, and Time Memory: Intact Insight: Understands nature of condition Judgement: Fair Abnormal Involuntary Movement: None SI/HI:denied by patient , not evident Active Hospital Problems Diagnosis *Generalized abdominal pain Acute reaction to situational stress Vitamin D insufficiency Borderline personality disorder (HCC) Underweight Moderate protein-calorie malnutrition Dental infection Persistent recurrent vomiting History of endometrial cancer History of gastric bypass History of pulmonary embolism Cannabis dependence (HCC) Other chest pain Cardiac murmur History of chronic CHF Abdominal pain Suicidal ideations Paroxysmal atrial fibrillation (HCC) Chronic idiopathic constipation Chronic nausea Anorexia Estevan-Danlos disease Generalized anxiety disorder GERD (gastroesophageal reflux disease) History of DVT (deep vein thrombosis) HTN (hypertension) Iron deficiency anemia Peptic ulcer disease Acute exacerbation of chronic abdominal pain Chronic pain Insomnia due to mental disorder Major depressive disorder, recurrent, moderate (HCC) Nicotine dependence Chronic low back pain Adjustment disorder with mixed anxiety and depressed mood Time spent >50 min preparing to see the patient, obtained updates and history from nursing staff, medications reviewed/adjusted, spoke with nursing and collaborating psychiatrist. Risks and benefits of medications were discussed with patient. Supportive therapy with behavioral interventions provided for symptoms. Assessment and plan: Borderline personality disorder MDD Cannabis dependence Denies suicidal intent or current ideations outpatient mental health follow indicated we again discussed referrals however she wants to look into tele psych option or places closer to her home CVO and suicide precaution will be discontinued DW collaborating psychiatrist Psychiatrically cleared for discharge Jesi Granados APRN, PMPAULP This chart was completed using voice recognition technology and may contain unintended errors. Behavioral Health Discharge from Mental Wellness Perspective: Yes Follow up: op mental health Medication Recommendation: see above * Ulysses Lazcano MSW - 07/06/2025 1:26 PM EST 07/06/25 1325 Ongoing Discharge Planning Evaluation Completed by CC/SW Yes Discussed discharge plans with Care Team at [facility] Yes, with nurse in attendance;Yes, with doctor in attendance Actual Discharge Plan 07/06/25 UPDATE: [facility] has [facility] Pt for TPN. Pt will be going home at [place] with TPN. Pt will be followed at [facility] for PICC care. Pt transportation TBD day of DC. SW will continue to follow along. * Ham Jaramillo MD - 07/06/2025 11:52 AM EST Reviewed echocardiogram complete no significant abnormalities noted. No further workup needed. Willsign off. * Ayaka Giraldo [facility] - 07/06/2025 11:45 AM EST Pharmacy Consult - TPN S: Alexei Macias is a(n) 40 y.o. 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 Pharmacy managing TPN electrolytes. O: Most Recent Labs: Recent Labs 07/04/25 0548 07/05/25 1702 WBC 7.9 7.8 HGB 10.4* 12.2 HCT 31.6* 37.0 PLT 283 319 Recent Labs 07/04/25 0548 07/05/25 1702 07/06/25 0505 NA 143 138 140 K 4.4 4.0 4.1 CL 107 100 103 CO2 31* 28 28 CALCIUM 8.5* 9.4 8.4* BUN 10 4* 5* CREATININE 0.82 0.76 0.79 GLU 87 130* 102* Recent Labs 07/04/25 0548 07/04/25 0936 07/05/25 1702 07/06/25 0505 ALKPHOS 100 -- 127* 100 MG -- -- 1.9 2.0 PHOS -- -- 3.3 4.4 PREALBUMIN -- 14.7* 14.5* -- Recent Labs 07/04/25 0548 07/05/25 1702 07/06/25 0505 ALT 6 7 6 AST 15 20 18 BILIDIR <0.2 <0.2 <0.2 LABBILI 0.2 0.3 0.2 Recent Labs 07/05/25 170 TRIG 61 59 Recent Labs 07/05/25 1701 INR 1.06 LABPT 12.2 Weight: 123 lb 4.8 oz (55.9 kg) A/P: Day 1 of TPN. Fingerstick blood glucose readings have been within goal of <180. Physician orders and progress notes reviewed. TPN formula: High Protein (150g CHO/L, 50g protein/L) TPN lipids: None TPN rate: 42 mL/hour; goal rate 70 ml/hour with daily lipids Additional IV fluids: none Electrolytes have been stable Will initiate TPN electrolytes/additives with Clinimix-E Electrolytes/Additives: Sodium Chloride 10 mEq/L Sodium Acetate Trihydrate 25 mEq/L Potassium Phosphate 15 mmol/L (30 mEq K+) Calcium Chloride 4.5 mEq/L Magnesium Chloride 5 mEq/L MVI 10 mL/bag Trace Elements 1 mL/bag Pharmacy will follow patient and adjust electrolytes. Thanks! Ayaka Giraldo, PharmD * Maureen Mcleod RD,LD - 07/06/2025 9:48 AM EST [facility] Nutrition Malnutrition Reassessment Evidence Supported Malnutrition Diagnosis: Moderate protein-calorie malnutrition In the context of: Starvation Related (Social/Environmental) Indicators: moderate fat depletion, mild muscle mass depletion, < or equal to 50% energy intake compared to estimate energy needs for > or equal to 1 month (additional indicators, BMI @18.2 and @ 84% of IBW) Nutrition Problem/Diagnosis: Nutrition Diagnosis Problem 1: Moderate starvation related malnutrition related to psychological cause or life stress, altered GI function as evidenced by NPO or clear liquid status due to medical condition, criteria asidentified in malnutrition assessment, new medical diagnosis or change in existing diagnosis or condition. Status: Active nutrition diagnosis Nutrition Prescription: Kcals: 9671-1116 kcal (30-35 kcal/55.9 kg). Goals for possible refeeding syndrome= 559-1118 kcal (10-20 kcal/kg) Protein (g): 67-84 Protein needs based on: 1.2-1.5 g Pro/55.9 kg Fluid (ml): 1 ml/kcal or per MD Plan/Interventions: Meals and Snacks: Full Liquid (no carbonated beverages) Parenteral Nutrition/IV Fluids: Recommend Clinimix 5/15 @ 42 ml/hr =50 g protein, 710 kcal. As tolerated recommend advance to ultimate goal feed of Clinimix 5/15 @ 70 ml/hr with daily lipids = 84 g protein, 1693 kcal, 252 g carb, 3/1 mg carb/kg/min. @ Goal TPN will % of protein needs and low range of calorie needs. Oral intake is dependenton pts pain, therefore any oral intake is a bonus. Medical Food Supplements: Glucerna Therapeutic, Beneprotein Medical Food/Supplement Freq: Jose Mariawbry Glucerna tid, Beneprotein tid Vitamin and Mineral Supplements: Vitamin D (w/Clinimix E) Nutrition-Related Medication Management: Protonix, LR's @ 75 ml/hr Nutrition Education: Oriented to Current Diet Order, Supplements, Importance of nutrition to healing and recovery, Other (Provided with handout on suggested Vitamin Regimen (when off TPN) and proteinsupplements as recommended by wt management center) Collaboration And Referral Of Nutrition Care: Collaboration with other providers (NEWS CAMERAMAN, RN) Nutrition Discharge Instructions: Home TPN (total parenteral nutrition) and oral diet as tolerated.Recommend continue strawberry Glucerna and protein poweder of choice as tolerated Alexei Macias is a 40 y.o. female patient. Admit Diagnosis: Abdominal pain [R10.9] Anorexia [R63.0] Reason For Assessment: Parenteral nutrition Subjective: Subjective Comment: TPN to start pending PICC line placement. Recs discussed with Pharmacist. High risk for refeeding syndrome, recommend close monitoring/replacement of electrolytes as indicated . On initial assessment she adamantly refused all oral nutrition supplements, but now is doing well with strawberry Glucerna. States Its the only one I can tolerate . Although she made a face about beneprotein, she did use some at breakfast today. Provided with written info from wt management center on suggested protein supplements for home. Pt appreciative of info provided. Oriented to concept of TPN. States my mom was on it .Per discussion with NEWS CAMERAMAN, d/t malnourished state and use of cigarettesis not a good surgical candidate at this time. Will need home TPN in preparation for future surgery. Anthropometric Measurements: Height: 5' 9 (175.3 cm) Weight: 123 lb 4.8 oz (55.9 kg) BMI (Calculated): 18.21 Other (Comment): No significant wt change from 07/03 to 07/06 Food/Nutrition Related History: Dietary Orders Ordered Full Liquid Diet Fluid Restriction(ml/24hr): No Carbonated Beverage DIET EFFECTIVE NOW 07/05/25 1531 TPN Orders TPN ADULT w/ Electrolytes (Clinimix-E) DAILY 6PM Admin Instructions: This bag delivers the components listed below over 24 hours based on an infusion rate of 42 ml/hour. 50.4 grams/day Amino Acids 151.2 grams/day Dextrose 10.1 mEq/day Sodium Chloride 25.2 mEq/day Sodium Acetate Trihydrate 15.1 mmol/day Potassium Phosphate 4.5 mEq/day Calcium Chloride 5 mEq/day Magnesium Chloride 10 mL/day MVI (Multivitamin) 1 mL/day Trace Elements *Central LineUse Only* Use ONLY pharmacy supplied tubing and filter. Do not use extension sets longer than 7 inches. Infusion requires use of filter. For non- lipid days, utilize 0.22 micron filter set. Refer to Clinical Skills for additional information. Upon discontinuation of the TPN, ramp down the rate as follows: Decrease TPN rate by 50% for the first hour, then decrease rate again by 50% for the second hour, then discontinue TPN. If TPN rate is less than 25 mL/hr when ordered to be discontinued, then discontinue TPN without the taper. Check blood sugar at third hour after TPN discontinuation. VESICANT Electronically Signed By: Stephanie Adamson APRN [ ] BENEPROTEIN powder oral supplement 2 Packet Oral BID with Meals ENSURE High Protein oral supplement 1 Each Oral TID with Meals GLUCERNA Therapeutic oral supplement 1 'box' Oral TID with Meals 1 'box' at 07/06/25 0933 Food Insecurity Within the past 12 months, you worried that your food would run out before you got the money to buymore.: Often true Within the past 12 months, the food you bought just didn't last and you didn't have money to get more.: Often true Nutrition Focused Physical Findings: LDAs- Active NG/OG/NJ,Wound,Pressure Injury,or Drain None I/O last 3 completed shifts: In: 0 [P.O.:1920; I.V.:200] Out: 0 Edema: Abdomen: Abdominal/GI Abdomen Inspection: Soft, Flat Bowel Sounds (All Quadrants): Active Abdominal palpation: Tenderness When was last BM? (Date): 07/04/25 Stool Assessment: Stool Occurrence: 1 Stool Appearance: Type 5 [place] Stool Chart Stool Color: Brown Stool Amount: Medium Biochemical Data/Medical Tests: Pertinent Labs: 07/06 gluc 102, Na+ 140, K+ 4.1, mg. 2.0, phos 4.4 Pertinent Medical Tests/Procedures: 07/05 EGD-ulcerated and fibrotic stricture (not traversable) inthe gastric pouch., Esophagus normal, Stomach biopsies pending, 07/06 PICC line for TPN Clinical Course: Clinical Course: Admitted d/t Chronic CP and epigastric pain.Surgery, GI, Cardiology and Psych consulted. Chronic Nausea, PUD, Recurrent vomiting. Chronic idiopathic [id number] EGD-MD notes will need a surgical J tube or TPN. 07/06 start TPN * Tamara Karimi PA-C - 07/06/2025 8:30 AM EST General Surgery Attending Progress Note CSN:[id number] NAME:Alexei Macias :1985 Active Hospital Problems Diagnosis *Generalized abdominal pain Acute reaction to situational stress Vitamin D insufficiency Borderline personality disorder (HCC) Underweight Moderate protein-calorie malnutrition Dental infection Persistent recurrent vomiting History of endometrial cancer History of gastric bypass History of pulmonary embolism Cannabis dependence (HCC) Other chest pain Cardiac murmur History of chronic CHF Abdominal pain Suicidal ideations Paroxysmal atrial fibrillation (HCC) Chronic idiopathic constipation Chronic nausea Anorexia Estevan-Danlos disease Generalized anxiety disorder GERD (gastroesophageal reflux disease) History of DVT (deep vein thrombosis) HTN (hypertension) Iron deficiency anemia Peptic ulcer disease Acute exacerbation of chronic abdominal pain Chronic pain Insomnia due to mental disorder Major depressive disorder, recurrent, moderate (HCC) Nicotine dependence Chronic low back pain Adjustment disorder with mixed anxiety and depressed mood Impression/Plan: f/u generalized abdominal pain PICC line and TPN EGD recs: Await pathology results Pantoprazole 40mg BID Sucralfate QID I do not expect patient to be able to tolerate solid food. She will need a surgical J tube or TPN MIVF Oral antibiotics per primary (for abscessed tooth) PPI BID - diet as tolerated is reasonable from a surgery standpoint - but not to the point of causing pain or nausea or vomiting. liquids is the recommendation per GI No acute surgical interventions planned at this time General Surgery Disposition Perspective - Medically Ready for Discharge: No - anticipated admission stay: > 48 hours Rest of care per primary team Dr Cornelius/Dr Simon/Dr Mcdowell to follow with further recommendations Subjective: sitting up in bed, denies abdominal pain, but there is a little discomfort. Still with nausea, denies vomiting. Asking for food because she does not have pain. Vitals: Vitals: 07/05/25 1544 07/05/25 19407/06/25 0511 07/06/25 0916 BP: 134/89 100/67 101/74 BP Location: Right arm Right arm Right arm Patient Position: Semi Fowlers Sitting Semi Fowlers Pulse: 104 108 78 Resp: 18 18 18 Temp: 97.8 ??F (36.6 ??C) 99.1 ??F (37.3 ??C) 97.9 ??F (36.6 ??C) TempSrc: Oral Oral Oral SpO2: 94% 96% 100% Weight: 123 lb 4.8 oz (55.9 kg) Height: I/O last 3 completed shifts: In: 2119 [P.O.:1920; I.V.:200] Out: 0 I/O this shift: In: 237 [P.O.:237] Out: - FULL LIQUID DIET Exam: BP 101/74 (BP Location: Right arm, Patient Position: Semi Fowlers) Pulse 78 Temp 97.9 ??F (36.6??C) (Oral) Resp 18 Ht 5' 9 (1.753 m) Wt 123 lb 4.8 oz (55.9 kg) SpO2 100% BMI 18.21 kg/m?? General appearance: alert, appears stated age, cooperative, and no distress Abdomen: soft, nondistended, mild diffuse tenderness Labs: Recent Results (from the past 48 hours) PT / INR Collection Time: 07/05/25 5:01 PM Result Value Ref Range PT 12.2 10.5 - 13.6 second(s) INR 1.06 0.91 - 1.18 (ratio) PARTIAL THROMBOPLASTIN TIME Collection Time: 07/05/25 5:01 PM Result Value Ref Range PTT 34.9 25.7 - 36.8 second(s) BASIC METABOLIC PANEL Collection Time: 07/05/25 5:02 PM Result Value Ref Range Sodium 138 136 - 145 mmol/L Potassium 4.0 3.5 - 5.0 mmol/L Chloride 100 98 - 107 mmol/L Total CO2 28 22 - 29 mmol/L Anion Gap 10 7 - 16 mmol/L Calcium 9.4 8.6 - 10.4 mg/dL Glucose Lvl 130 (H) 70 - 99 mg/dL BUN 4 (L) 6 - 20 mg/dL Creatinine 0.76 0.51 - 1.30 mg/dL eGFR (CKD-EPIcr 2020) 100 >=60 mL/min/1.73 m2 CBC Collection Time: 07/05/25 5:02 PM Result Value Ref Range WBC 7.8 3.7 - 10.3 x10(3)/mcL RBC 4.21 3.90 - 5.20 x10(6)/mcL Hgb 12.2 11.2 - 15.7 g/dL Hct 37.0 34.0 - 45.0 % MCV 87.9 80.0 - 100.0 fL MCH 29.0 26.0 - 34.0 pg MCHC 33.0 30.7 - 35.5 g/dL RDW 13.2 <=14.9 % Platelet 319 155 - 369 x10(3)/mcL MPV 8.7 (L) 8.8 - 12.5 fL HEPATIC FUNCTION PANEL Collection Time: 07/05/25 5:02 PM Result Value Ref Range Total Protein 7.6 6.4 - 8.3 gm/dL Albumin 4.0 3.5 - 5.2 gm/dL Bili Direct <0.2 0.0 - 0.3 mg/dL Bili Total 0.3 0.2 - 1.3 mg/dL AST 20 <=40 U/L ALT 7 <=41 U/L Alk Phos 127 (H) 36 - 123 U/L PHOSPHORUS LEVEL Collection Time: 07/05/25 5:02 PM Result Value Ref Range Phosphorus 3.3 2.5 - 4.5 mg/dL MAGNESIUM LEVEL Collection Time: 07/05/25 5:02 PM Result Value Ref Range Magnesium 1.9 1.6 - 2.4 mg/dL TRIGLYCERIDES Collection Time: 07/05/25 5:02 PM Result Value Ref Range Triglyceride 59 <150 mg/dL PREALBUMIN Collection Time: 07/05/25 5:02 PM Result Value Ref Range Prealbumin 14.5 (L) 20.0 - 40.0 mg/dL TRIGLYCERIDES Collection Time: 07/05/25 5:02 PM Result Value Ref Range Triglyceride 61 <150 mg/dL BASIC METABOLIC PANEL Collection Time: 07/06/25 5:05 AM Result Value Ref Range Sodium 140 136 - 145 mmol/L Potassium 4.1 3.5 - 5.0 mmol/L Chloride 103 98 - 107 mmol/L Total CO2 28 22 - 29 mmol/L Anion Gap 9 7 - 16 mmol/L Calcium 8.4 (L) 8.6 - 10.4 mg/dL Glucose Lvl 102 (H) 70 - 99 mg/dL BUN 5 (L) 6 - 20 mg/dL Creatinine 0.79 0.51 - 1.30 mg/dL eGFR (CKD-EPIcr 2020) 95 >=60 mL/min/1.73 m2 HEPATIC FUNCTION PANEL Collection Time: 07/06/25 5:05 AM Result Value Ref Range Total Protein 6.0 (L) 6.4 - 8.3 gm/dL Albumin 3.2 (L) 3.5 - 5.2 gm/dL Bili Direct <0.2 0.0 - 0.3 mg/dL Bili Total 0.2 0.2 - 1.3 mg/dL AST 18 <=40 U/L ALT 6 <=41 U/L Alk Phos 100 36 - 123 U/L PHOSPHORUS LEVEL Collection Time: 07/06/25 5:05 AM Result Value Ref Range Phosphorus 4.4 2.5 - 4.5 mg/dL MAGNESIUM LEVEL Collection Time: 07/06/25 5:05 AM Result Value Ref Range Magnesium 2.0 1.6 - 2.4 mg/dL Imaging: US 3GC VERIFICATION Result Date: 07/06/2025 PICC placement performed at the bedside. The study images are for reference only and will not be interpreted by a radiologist. Placement will be determined by the bedside PICC nurse, utilizing 3CG technology. ESOPHAGOGASTRODUODENOSCOPY (EGD) Result Date: 07/05/2025 Table formatting from the original result was not included. 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 This is most likely the site of the gastro-jejunostomy. This could not be traversed with the scope. Performed forceps biopsies in the stomach to rule out H. pylori. The esophagus appeared normal. Recommendation Await pathology results Pantoprazole 40mg BID Sucralfate QID I do not expect patient to be able to tolerate solid food. She will need a surgical Jtube or TPN. Pre-Procedure Diagnosis / Indication Pain of upper abdomen Post-Procedure Diagnosis Ulcerated and strictured gastro-enteric anastomosis Staff Staff Role Caterina Rodas RN Cruise Coordinator Margaux Almanza, DESTINY BUSINESS SUPPORT LIAISON Bolivar Stephenson MD Anesthesiologist David Rm MD Performing Provider Medications See Anesthesia Record. Preprocedure A history and physical has been performed, and patient medication allergies have been reviewed. The patient's tolerance of previous anesthesia has been reviewed. The risks and benefits of the procedure and the sedation options and risks were discussed with the patient. All questions were answered and informed consent obtained. ASA 3 - Patient withsevere systemic disease Details of the Procedure The patient underwent monitored anesthesia care, which was administered by an anesthesia professional. The patient's blood pressure, heart rate, levelof consciousness, oxygen saturation, respirations, ECG and ETCO2 were monitored throughout the procedure. The scope was introduced into the mouth through a bite block and advanced to the stomach. Insufflated with carbon dioxide. Retroflexion was performed in the cardia. The patient experienced no bl ood loss. The procedure was not difficult. The patient tolerated the procedure well. There were no apparent adverse events. Patient provided education and educated on specific discharge instructions.Patient educated on medications given during the procedure and new medications for discharge. Patient verbalizes understanding of discharge education. Patient stable and awaiting transport for discharge. Events Procedure Events Event Event Time ENDO SCOPE IN TIME 07/05/2025 2:28 PM ENDO SCOPE OUT TIME 07/05/2025 2:32 PM Specimens ID Type Source Tests Collected by Time 1 : Gastric biopsies via forceps Tissue Gastric PATHOLOGY TISSUE REQUEST David Peguero MD 07/05/2025 1431 Anesthesia Event Time In Patient In - Proc. Room 07/05 02:21 PM Patient Out - Proc. Room 07/05 02:34 PM Tamara Karimi PA-C Cosigned by Jamil Simon MD at 07/06/2025 2:42 PM EST Associated attestation - Jamil Simon MD - 07/06/2025 2:42 PM EST I have reviewed the history, relevant notes and labs/imaging; and did personally examine the patient and agree with assessment and plan mentioned by GIA Godinez. EGD reviewed- has stricture at the GJ anastomosis Constitutional: oriented to person, place, and time. appears well-developed and cooperative. Pulmonary/Chest:No respiratory distress. Abdominal: min tenderness in the epigastric area Neurological: alert and oriented to person, place, and time. Skin: Skin is warm and intact. Psychiatric: normal mood and affect. Normal behavior. I discussed with her and her mother about the abnormal endoscopy findings. Informed them that tobacco/ carbonation and NSAID's are the most common cause for strictures / bleeding She will have to abstain from tobacco usage completely. Will discuss about surgical revision /. Reversal once she is tobacco free Full liquid diet PPI BID Carafate TPN rest of the management as per the medical team No immediate surgery is needed at present Can be discharged home if home TPN is set up Can F/U with us at the clinic in 1-2 weeks / PRN * Bradford Sauceda MD - 07/06/2025 12:38 AM ESTAssociated Problem(s): Dental infection -- Augmentin 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 Continued -- improving * Bradford Sauceda MD - 07/06/2025 12:36 AM ESTAssociated Problem(s): Generalized anxiety disorder -- AtivanAlicial Seroquel 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 Continued * Bradford Sauceda MD - 07/06/2025 12:36 AM ESTAssociated Problem(s): Major depressive disorder, recurrent, moderate (HCC) -- AtivanJay Seroquel 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 Continued * Bradford Sauceda MD - 07/06/2025 12:36 AM ESTAssociated Problem(s): Insomnia due to mental disorder -- Ativan, Vistaril, Seroquel 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 Continued * Bradford Sauceda MD - 07/06/2025 12:36 AM ESTAssociated Problem(s): Adjustment disorder with mixed anxiety and depressed mood -- AtivanArmandtaril, Seroquel 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 Continued * Bradford Sauceda MD - 07/06/2025 12:36 AM ESTAssociated Problem(s): Acute reaction to situational stress -- Ativan, Alicial, Seroquel 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 Continued * Bradford Sauceda MD - 07/06/2025 12:36 AM ESTAssociated Problem(s): Suicidal ideations -- Psychiatry consulted * Bradford Sauceda MD - 07/06/2025 12:36 AM ESTAssociated Problem(s): Anorexia -- Psychiatry and GI consulted * Bradford Sauceda MD - 07/06/2025 12:36 AM ESTAssociated Problem(s): History of DVT (deep vein thrombosis) -- appears to be provoked -- no longer on anticoagulation * Bradford Sauceda MD - 07/06/2025 12:36 AM ESTAssociated Problem(s): History of pulmonary embolism -- appears to be provoked -- no longer on anticoagulation * Bradford Sauceda MD - 07/06/2025 12:36 AM ESTAssociated Problem(s): Iron deficiency anemia -- Hemoglobin normal. MCV * Bradford Sauceda MD - 07/06/2025 12:36 AM ESTAssociated Problem(s): Chronic low back pain Chronic abdominal pain -- Lyrica 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 Continued * Bradford Sauceda MD - 07/06/2025 12:36 AM ESTAssociated Problem(s): Chronic pain Chronic abdominal pain -- Lyrica 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 Continued * Bradford Sauceda MD - 07/06/2025 12:36 AM ESTAssociated Problem(s): Other chest pain -- cardiology consulted -- [place] to be atypical for CAD -- Suspect GI related -- If echocardiogram unremarkable, no further cardiac workup recommended -- Echocardiogram: Pending * Bradford Sauceda MD - 07/06/2025 12:36 AM ESTAssociated Problem(s): History of chronic CHF -- not on any meds CUT IN WORKER -- Appears compensated * Bradford Sauceda MD - 07/06/2025 12:36 AM ESTAssociated Problem(s): Nicotine dependence -- Affecting all aspects of patient's health and care * Bradford Sauceda MD - 07/06/2025 12:36 AM ESTAssociated Problem(s): Underweight -- Affecting all aspects of patient's health and care Evidence Supported Malnutrition Diagnosis: Moderate protein-calorie malnutrition Starvation Related (Social/Environmental) Indicators: moderate fat depletion; mild muscle mass depletion; < or equal to 50% energy intake compared to estimate energy needs for > or equal to 1 month (additional indicators, BMI @18.2 and @ 84% of IBW) Meals and Snacks: NPO (Will monitor ability to advance oral diet and/or consideration for nutritionsupport) Parenteral Nutrition/IV Fluids: Pt asking about possibilty for TPN, will defer to Vitamin and Mineral Supplements: -- (May consider a bariatric MVI-liquid and powder form-no gummies, recommend 1000mg calcuim w/VitD3, and B12 -per wt management guidelines) Nutrition-Related Medication Management: Protonix, Carafate Collaboration And Referral Of Nutrition Care: Collaboration with other providers (RN) -- B12 and folate wnl. Iron normal. Transferrin sat low, TIBC wnl. Mag wnl. Phos wnl. Triglyceride 59 -- Prealbumin 14.7 * Bradford Sauceda MD - 07/06/2025 12:36 AM ESTAssociated Problem(s): Moderate protein-calorie malnutrition -- Affecting all aspects of patient's health and care Evidence Supported Malnutrition Diagnosis: Moderate protein-calorie malnutrition Starvation Related (Social/Environmental) Indicators: moderate fat depletion; mild muscle mass depletion; < or equal to 50% energy intake compared to estimate energy needs for > or equal to 1 month (additional indicators, BMI @18.2 and @ 84% of IBW) Meals and Snacks: NPO (Will monitor ability to advance oral diet and/or consideration for nutritionsupport) Parenteral Nutrition/IV Fluids: Pt asking about possibilty for TPN, will defer to Vitamin and Mineral Supplements: -- (May consider a bariatric MVI-liquid and powder form-no gummies, recommend 1000mg calcuim w/VitD3, and B12 -per wt management guidelines) Nutrition-Related Medication Management: Protonix, Carafate Collaboration And Referral Of Nutrition Care: Collaboration with other providers (RN) -- B12 and folate wnl. Iron normal. Transferrin sat low, TIBC wnl. Mag wnl. Phos wnl. [id number] -- Prealbumin 14.7 * Bradford Sauceda MD - 07/06/2025 12:36 AM ESTAssociated Problem(s): Generalized abdominal pain -- OTC PPI 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 This is most likely the site of the gastro-jejunostomy. This could not be traversed with the scope. Performed forceps biopsies in the stomach to rule out H. pylori. The esophagus appeared normal. GI Recommendation Await pathology results Pantoprazole 40mg BID Sucralfate QID I do not expect patient to be able to tolerate solid food. She will need a surgical J tube or TPN. -- starting on TPN per general surgery recommendations * Bradford Sauceda MD - 07/06/2025 12:36 AM ESTAssociated Problem(s): Acute exacerbation of chronic abdominal pain -- OTC PPI 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 This is most likely the site of the gastro-jejunostomy. This could not be traversed with the scope. Performed forceps biopsies in the stomach to rule out H. pylori. The esophagus appeared normal. GI Recommendation Await pathology results Pantoprazole 40mg BID Sucralfate QID I do not expect patient to be able to tolerate solid food. She will need a surgical J tube or TPN. -- starting on TPN per general surgery recommendations * Bradford Sauceda MD - 07/06/2025 12:36 AM ESTAssociated Problem(s): History of gastric bypass -- OTC PPI 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 This is most likely the site of the gastro-jejunostomy. This could not be traversed with the scope. Performed forceps biopsies in the stomach to rule out H. pylori. The esophagus appeared normal. GI Recommendation Await pathology results Pantoprazole 40mg BID Sucralfate QID I do not expect patient to be able to tolerate solid food. She will need a surgical J tube or TPN. -- starting on TPN per general surgery recommendations * Bradford Sauceda MD - 07/06/2025 12:36 AM ESTAssociated Problem(s): Chronic nausea -- OTC PPI 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 This is most likely the site of the gastro-jejunostomy. This could not be traversed with the scope. Performed forceps biopsies in the stomach to rule out H. pylori. The esophagus appeared normal. GI Recommendation Await pathology results Pantoprazole 40mg BID Sucralfate QID I do not expect patient to be able to tolerate solid food. She will need a surgical J tube or TPN. -- starting on TPN per general surgery recommendations * Bradford Sauceda MD - 07/06/2025 12:36 AM ESTAssociated Problem(s): GERD (gastroesophageal reflux disease) -- OTC PPI 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 This is most likely the site of the gastro-jejunostomy. This could not be traversed with the scope. Performed forceps biopsies in the stomach to rule out H. pylori. The esophagus appeared normal. GI Recommendation Await pathology results Pantoprazole 40mg BID Sucralfate QID I do not expect patient to be able to tolerate solid food. She will need a surgical J tube or TPN. -- starting on TPN per general surgery recommendations * Bradford Sauceda MD - 07/06/2025 12:36 AM ESTAssociated Problem(s): Peptic ulcer disease -- OTC PPI 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 This is most likely the site of the gastro-jejunostomy. This could not be traversed with the scope. Performed forceps biopsies in the stomach to rule out H. pylori. The esophagus appeared normal. GI Recommendation Await pathology results Pantoprazole 40mg BID Sucralfate QID I do not expect patient to be able to tolerate solid food. She will need a surgical J tube or TPN. -- starting on TPN per general surgery recommendations * Bradford Sauceda MD - 07/06/2025 12:36 AM ESTAssociated Problem(s): Persistent recurrent vomiting -- OTC PPI 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 This is most likely the site of the gastro-jejunostomy. This could not be traversed with the scope. Performed forceps biopsies in the stomach to rule out H. pylori. The esophagus appeared normal. GI Recommendation Await pathology results Pantoprazole 40mg BID Sucralfate QID I do not expect patient to be able to tolerate solid food. She will need a surgical J tube or TPN. -- starting on TPN per general surgery recommendations * Bradford Sauceda MD - 07/06/2025 12:36 AM ESTAssociated Problem(s): Chronic idiopathic constipation -- GI consulted * Bradford Sauceda MD - 07/06/2025 12:36 AM ESTAssociated Problem(s): Paroxysmal atrial fibrillation (HCC) -- history not clear -- not on any meds * Bradford Sauceda MD - 07/06/2025 12:36 AM ESTAssociated Problem(s): HTN (hypertension) -- not on any meds CUT IN WORKER -- monitor -- 07/06/2025 in acceptable range * Bradford Sauceda MD - 07/06/2025 12:18 AM ESTAssociated Problem(s): Generalized abdominal pain -- OTC PPI CUT IN WORKER -- in setting of gastric bypass surgery, hx of marginal ulcers, PUD, cannabis use * Bradford Sauceda MD - 07/06/2025 12:18 AM ESTAssociated Problem(s): Acute exacerbation of chronic abdominal pain -- OTC PPI CUT IN WORKER -- in setting of gastric bypass surgery, hx of marginal ulcers, PUD, cannabis use * Bradford Sauceda MD - 07/06/2025 12:18 AM ESTAssociated Problem(s): History of gastric bypass -- OTC PPI CUT IN WORKER -- in setting of gastric bypass surgery, hx of marginal ulcers, PUD, cannabis use * Bradford Sauceda MD - 07/06/2025 12:18 AM ESTAssociated Problem(s): Chronic nausea -- OTC PPI CUT IN WORKER -- in setting of gastric bypass surgery, hx of marginal ulcers, PUD, cannabis use * Bradford Sauceda MD - 07/06/2025 12:18 AM ESTAssociated Problem(s): GERD (gastroesophageal reflux disease) -- OTC PPI CUT IN WORKER -- in setting of gastric bypass surgery, hx of marginal ulcers, PUD, cannabis use * Bradford Sauceda MD - 07/06/2025 12:18 AM ESTAssociated Problem(s): Peptic ulcer disease -- OTC PPI CUT IN WORKER -- in setting of gastric bypass surgery, hx of marginal ulcers, PUD, cannabis use * Bradford Sauceda MD - 07/06/2025 12:18 AM ESTAssociated Problem(s): Persistent recurrent vomiting -- OTC PPI CUT IN WORKER -- in setting of gastric bypass surgery, hx of marginal ulcers, PUD, cannabis use * Bradford Sauceda MD - 07/06/2025 12:18 AM ESTAssociated Problem(s): Paroxysmal atrial fibrillation (HCC) -- history not clear -- not on any meds * Bradford Sauceda MD - 07/06/2025 12:18 AM ESTAssociated Problem(s): Generalized anxiety disorder -- AtJay gimenez Seroquel 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 Continued * Bradford Sauceda MD - 07/06/2025 12:18 AM ESTAssociated Problem(s): Major depressive disorder, recurrent, moderate (HCC) -- AtJay gimenez Seroquel 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 Continued * Bradford Sauceda MD - 07/06/2025 12:18 AM ESTAssociated Problem(s): Insomnia due to mental disorder -- AtJay gimenez Seroquel 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 Continued * Bradford Sauceda MD - 07/06/2025 12:18 AM ESTAssociated Problem(s): Adjustment disorder with mixed anxiety and depressed mood -- Jay Perry Seroquel 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 Continued * Bradford Sauceda MD - 07/06/2025 12:18 AM ESTAssociated Problem(s): Acute reaction to situational stress -- Jay Perry Seroquel 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 Continued * Bradford Sauceda MD - 07/06/2025 12:18 AM ESTAssociated Problem(s): History of DVT (deep vein thrombosis) -- appears to be provoked -- no longer on anticoagulation * Bradford Sauceda MD - 07/06/2025 12:18 AM ESTAssociated Problem(s): History of pulmonary embolism -- appears to be provoked -- no longer on anticoagulation * Bradford Sauceda MD - 07/06/2025 12:18 AM ESTAssociated Problem(s): Iron deficiency anemia -- * Bradford Sauceda MD - 07/06/2025 12:18 AM ESTAssociated Problem(s): Nicotine dependence -- Affecting all aspects of patient's health and care * Bradford Sauceda MD - 07/06/2025 12:18 AM ESTAssociated Problem(s): Chronic low back pain Chronic abdominal pain -- Lyrica 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 Continued * Bradford Sauceda MD - 07/06/2025 12:18 AM ESTAssociated Problem(s): Chronic pain Chronic abdominal pain -- Lyrica 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 Continued * Bradford Sauecda MD - 07/06/2025 12:18 AM ESTAssociated Problem(s): History of chronic CHF -- not on any meds CUT IN WORKER -- Appears compensated * Bradford Sauceda MD - 07/06/2025 12:18 AM ESTAssociated Problem(s): Underweight -- Affecting all aspects of patient's health and care * Bradford Sauceda MD - 07/06/2025 12:18 AM ESTAssociated Problem(s): Moderate protein-calorie malnutrition -- Affecting all aspects of patient's health and care * Bradford Sauceda MD - 07/06/2025 12:18 AM ESTAssociated Problem(s): Dental infection -- Augmentin 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 Continued * Bradford Sauceda MD - 07/05/2025 9:02 PM EST Images from the original note were not included. 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 This is most likely the site of the gastro-jejunostomy. This could not be traversed with the scope. Performed forceps biopsies in the stomach to rule out H. pylori. The esophagus appeared normal. GI Recommendation Await pathology results Pantoprazole 40mg BID Sucralfate QID I do not expect patient to be able to tolerate solid food. She will need a surgical J tube or TPN. -- starting on TPN per general surgery recommendations Chronic idiopathic constipation -- GI consulted Paroxysmal atrial fibrillation (HCC) -- history not clear -- not on any meds Estevan-Danlos disease HTN (hypertension) -- not on any meds CUT IN WORKER -- monitor -- 07/06/2025 in acceptable range Generalized anxiety disorder Major depressive disorder, recurrent, moderate (HCC) Insomnia due to mental disorder Adjustment disorder with mixed anxiety and depressed mood Acute reaction to situational stress -- Ativan, Vistaril, Seroquel 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 Continued Suicidal ideations -- Psychiatry consulted Anorexia -- Psychiatry and GI consulted Borderline personality disorder (HCC) Cannabis dependence (HCC) Other chest pain -- cardiology consulted -- [place] to be atypical for CAD -- Suspect GI related -- If echocardiogram unremarkable, no further cardiac workup recommended -- Echocardiogram: Pending History of DVT (deep vein thrombosis) History of pulmonary embolism -- appears to be provoked -- no longer on anticoagulation Iron deficiency anemia -- Hemoglobin normal. 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 Continued Cardiac murmur History of chronic CHF -- not on any meds CUT IN WORKER -- Appears compensated Nicotine dependence -- Affecting all aspects of patient's health and care Underweight Moderate protein-calorie malnutrition -- Affecting all aspects of patient's health and care Evidence Supported Malnutrition Diagnosis: Moderate protein-calorie malnutrition Starvation Related (Social/Environmental) Indicators: moderate fat depletion; mild muscle mass depletion; < or equal to 50% energy intake compared to estimate energy needs for > or equal to 1 month (additional indicators, BMI @18.2 and @ 84% of IBW) Meals and Snacks: NPO (Will monitor ability to advance oral diet and/or consideration for nutritionsupport) Parenteral Nutrition/IV Fluids: Pt asking about possibilty for TPN, will defer to MD Vitamin and Mineral Supplements: -- (May consider a bariatric MVI-liquid and powder form-no gummies, recommend 1000mg calcuim w/VitD3, and B12 -per wt management guidelines) Nutrition-Related Medication Management: Protonix, Carafate Collaboration And Referral Of Nutrition Care: Collaboration with other providers (RN) -- B12 and folate wnl. Iron normal. Transferrin sat low, TIBC wnl. Mag wnl. Phos wnl. Triglyceride 59 -- Prealbumin 14.7 Dental infection -- Augmentin 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 Continued -- improving History of endometrial cancer Vitamin D insufficiency ------ VTE Prophylaxis: Dietary Orders (From admission, onward) Ordered Full Liquid Diet Fluid Restriction(ml/24hr): No Carbonated Beverage DIET EFFECTIVE NOW Question: Fluid Restriction(ml/24hr): Answer: No Carbonated Beverage 07/05/25 1531 Plan: Discussed with staff--with RN, care conference with charge nurse, care coordination/ social serviceand clinical pharmacist Discussed with patient and her mother at bedside Cardiology, GI, general surgery, and psychiatry consults appreciated Discussed with Dr. Simon To have PICC and start on TPN Lin D supplement Continue with above and current treatment plans and per recommendations by consultants evaluating patient, with additions and exceptions as noted above. Please refer to orders for complete details of patient's care plans Medically Ready for Discharge?: No EDOD: 07/10/2025 Not Ready for Discharge because: In need of ongoing medical management as noted above Active Hospital Problems Diagnosis *Generalized abdominal pain Borderline personality disorder (HCC) History of endometrial cancer History of gastric bypass History of pulmonary embolism Cannabis dependence (HCC) Other chest pain Cardiac murmur History of chronic CHF Abdominal pain Suicidal ideations Atrial fibrillation (HCC) Chronic idiopathic constipation Chronic nausea Anorexia Estevan-Danlos disease Generalized anxiety disorder GERD (gastroesophageal reflux disease) History of DVT (deep vein thrombosis) HTN (hypertension) Iron deficiency anemia Peptic ulcer disease Acute exacerbation of chronic abdominal pain Chronic pain Insomnia due to mental disorder Major depressive disorder, recurrent, moderate (HCC) Nicotine dependence Chronic low back pain CC / HPI: Alexei Macias is a(n)40 y.o. female admitted for work-up and treatment for No chief complaint on file. Generalized abdominal pain Subjective: Pain better controlled with meds. Some nausea. Meds helping. No vomiting. ROS: Respiratory negative. Still some intermittent stabbing left to mid lower chest pains. Medications reviewed: amoxicillin-clavulanate 1 Tablet Oral BID ENSURE High Protein 1 Box Oral TID with Meals estradioL 4 g Vaginal Once per day on Thursday flu vac triv (PF) 0.5 mL Intramuscular ONCE [START ON 07/06/2025] GLUCERNA Therapeutic 1 'box' Oral TID with Meals pantoprazole 40 mg Oral BID pregabalin 200 mg Oral BID QUEtiapine 100 mg Oral Nightly lactated ringers Stopped (07/05/251943) TPN ADULT w/ Electrolytes (Clinimix-E) acetaminophen, bisacodyL, droPERidol, fentaNYL, HYDROmorphone, hydrOXYzine, LORazepam, ondansetron OR ondansetron, ondansetron OR ondansetron, oxyCODONE, oxyCODONE Objective: Patient Vitals for the past 24 hrs: BP Temp Temp src Pulse Resp SpO2 07/05/25 1940 100/67 99.1 ??F (37.3 ??C) Oral 108 18 96 % 07/05/25 1544 134/89 97.8 ??F (36.6 ??C) Oral 104 18 94 % 07/05/25 1508 118/98 -- -- 95 18 99 % 07/05/25 1449 98/73 -- -- 59 16 97 % 07/05/25 1436 92/66 98.2 ??F (36.8 ??C) Forehead -- 16 97 % 07/05/25 1234 106/71 99 ??F (37.2 ??C) Forehead 75 16 97 % 07/05/25 0850 100/73 98.3 ??F (36.8 ??C) Oral 76 16 99 % 07/05/25 0055 109/67 97.8 ??F (36.6 ??C) Oral 91 16 96 % Physical Exam: General Alert, NAD Psych Normal mood and affect Neck Supple Respiratory Respirations easy, CTA, =BS, good AM Cardiac RRR Abdominal +BS, Soft, ND, mild tenderness in upper abdomen Musculoskeletal No edema Neurologic Oriented. Stable Lymph Skin Data reviewed: Recent Labs 07/04/25 0548 07/04/25 0936 07/05/25 1701 07/05/25 1702 WBC 7.9 -- -- 7.8 HGB 10.4* -- -- 12.2 HCT 31.6* -- -- 37.0 MCV 88.8 -- -- 87.9 PLT 283 -- -- 319 NA 143 -- -- 138 K 4.4 -- -- 4.0 CL 107 -- -- 100 CO2 31* -- -- 28 BUN 10 -- -- 4* CREATININE 0.82 -- -- 0.76 MG -- -- -- 1.9 PREALBUMIN -- 14.7* -- 14.5* PROT 6.1* -- -- 7.6 ALT 6 -- -- 7 AST 15 -- -- 20 ALKPHOS 100 -- -- 127* LABBILI 0.2 -- -- 0.3 BILIDIR <0.2 -- -- <0.2 INR -- -- 1.06 -- PTT -- -- 34.9 -- ESOPHAGOGASTRODUODENOSCOPY (EGD) Result Date: 07/05/2025 Table formatting from the original result was not included. 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 This is most likely the site of the gastro-jejunostomy. This could not be traversed with the scope. Performed forceps biopsies in the stomach to rule out H. pylori. The esophagus appeared normal. Recommendation Await pathology results Pantoprazole 40mg BID Sucralfate QID I do not expect patient to be able to tolerate solid food. She will need a surgical Jtube or TPN. Pre-Procedure Diagnosis / Indication Pain of upper abdomen Post-Procedure Diagnosis Ulcerated and strictured gastro-enteric anastomosis Staff Staff Role Caterina Rodas RN Cruise Coordinator DESTINY Brannon CRNA, MD Anesthesiologist David Rm MD Performing Provider Medications See Anesthesia Record. Preprocedure A history and physical has been performed, and patient medication allergies have been reviewed. The patient's tolerance of previous anesthesia has been reviewed. The risks and benefits of the procedure and the sedation options and risks were discussed with the patient. All questions were answered and informed consent obtained. ASA 3 - Patient withsevere systemic disease Details of the Procedure The patient underwent monitored anesthesia care, which was administered by an anesthesia professional. The patient's blood pressure, heart rate, levelof consciousness, oxygen saturation, respirations, ECG and ETCO2 were monitored throughout the procedure. The scope was introduced into the mouth through a bite block and advanced to the stomach. Insufflated with carbon dioxide. Retroflexion was performed in the cardia. The patient experienced no bl ood loss. The procedure was not difficult. The patient tolerated the procedure well. There were no apparent adverse events. Patient provided education and educated on specific discharge instructions.Patient educated on medications given during the procedure and new medications for discharge. Patient verbalizes understanding of discharge education. Patient stable and awaiting transport for discharge. Events Procedure Events Event Event Time ENDO SCOPE IN TIME 07/05/2025 2:28 PM ENDO SCOPE OUT TIME 07/05/2025 2:32 PM Specimens ID Type Source Tests Collected by Time 1 : Gastric biopsies via forceps Tissue Gastric PATHOLOGY TISSUE REQUEST David Peguero MD 07/05/2025 1431 Anesthesia Event Time In Patient In - Proc. Room 07/05 02:21 PM Patient Out - Proc. Room 07/05 02:34 PM FSBS: No results found for: FSBS EKG tele, ordered for above reasons, reviewed personally: NA Labs: Laboratory data and diagnostic testing personally reviewed from 07/05/25. Bradford Sauceda MD * Roxana Hodges - 07/05/2025 8:38 PM EST Images from the original note were not included. 07/05/251999 Reason for Visit Date of visit 07/05/25 Visited With Patient Visited By Resort Desk Clerk Reason for Visit Follow-up Patient Assessment Patient Appears Calm;Positive (Alexei is having a really good day. ) Outcomes Expressed Outcomes Expressed gratitude Care Plan Plan for Follow-Up Resort Desk Clerk(s) will continue to follow throughout admission Additional Notes Additional Notes if needed (Alexei asked service writer to return at later time, tomorrow is great. ) Roxana Hodges MDiv Resort Desk Clerk, Pastoral and Spiritual Care For non-urgent requests, please place a Pastoral Care consult in PSYCHIATRIC. For all urgent matters, please send an urgent [facility] Secure Chat to the Pastoral Care group at your location. Between 11pm and 7am, please use On-Call Finder to send an [facility] Secure Chat to the on-call slab conditioner supervisor. Pastoral Care office phone numbers: EDG/COV/GRT [phone], RASHEL [phone], FTT [phone], DBN [phone] * Kelli Woods MSW - 07/05/2025 8:33 PM EST 07/05/2025 FLOYD/ SHYANNE GARCIA- SW received a referral for chemical dependency consult. SW introduced self, went over SW role, and met with patient regarding JACY consult for cannabis and tobacco dependence. Educational handouts on the affects of cannabis on the body was provided, and SW reviewed information with patient. SW provided education on cannabis hyperemesis syndrome. Tobacco cessation resourceswere provided. Handouts and resources for JACY treatment were provided. Patient reports needing to stop smoking to have a surgery. [place] techniques were used to explore patients mental health and cannabis use. Patient reports she hasdone years of therapy and is not currently seeing a therapist. Patient reports she felt comfortablewith her last therapist; however, reports she was not getting anything out of it. SW provided mental health resources and discussed different types of therapy. Patient reports whereshe lives there is minimum to no treatment options. SW and patient discussed telehealth options, which patient is interested in. Mental health resources provided. Patient has also been seen by psych here in the hospital. SHYANNE SW following. * Stephanie Tobias [facility] - 07/05/2025 3:50 PM EST Pharmacy Note - TPN Therapy S: Alexei Macias is a(n) 40 y.o. female being initiated on TPN for diet augmentation while on liquid dietdue to ulcerated and fibrotic stricture in the gastric pouch. Pharmacy consulted to manage TPN electrolytes O: Most Recent Labs: Recent Labs 07/04/25 0548 WBC 7.9 HGB 10.4* HCT 31.6* PLT 283 Recent Labs 07/04/25 0548 NA 143 K 4.4 CL 107 CO2 31* CALCIUM 8.5* BUN 10 CREATININE 0.82 GLU 87 Recent Labs 07/04/25 0548 07/04/25 0936 ALKPHOS 100 -- PREALBUMIN -- 14.7* Recent Labs 07/04/25 0548 ALT 6 AST 15 BILIDIR <0.2 LABBILI 0.2 Weight: 123 lb 3.8 oz (55.9 kg) A/P: Fingerstick blood glucose readings have not bee checked in past 24 hours. Blood glucose 87 on BMP on 07/04. Physician orders and progress notes reviewed. TPN formula: High Protein (150g CHO/L, 50g protein/L) TPN lipids: None TPN rate: 42 mL/hour Additional IV fluids: none Will initiate TPN electrolytes/additives with Standard Electrolytes/Additives (pending today's BMP results): Sodium Chloride 26 mEq/L Sodium Acetate 9.5 mEq/L Potassium Acetate 20 mEq/L Potassium Phosphate 15 mmol/L Calcium Chloride 4.5 mEq/L Magnesium Sulfate 5 mEq/L MVI 10 mL/bag Trace Elements 1 mL/bag Pharmacy will follow patient and adjust electrolytes. Thank you, Stephanie Tobias, PharmD, BCPS, BCCCP * Stephanie Adamson, [employer] - 07/05/2025 9:14 AM EST General Surgery Attending Progress Note CSN:[id number] NAME:Alexei Macias :1985 Impression/Plan: f/u generalized abdominal pain NPO w/ meds EGD scheduled for today MIVF Oral antibiotics per primary (for abscessed tooth) PPI BID No acute surgical interventions planned at this time General Surgery Disposition Perspective - Medically Ready for Discharge: No - anticipated admission stay: > 48 hours Rest of care per primary team Dr Cornelius/Dr Simon/Dr Mcdowell to follow with further recommendations Subjective: Resting in bed Sitter at bedside Vitals: Vitals: 07/04/25 1516 07/04/257 07/05/25 0055 07/05/25 0850 BP: 108/64 102/70 109/67 100/73 BP Location: Right arm Right arm Right arm Right arm Patient Position: Semi Fowlers Semi Fowlers Semi Fowlers Semi Fowlers Pulse: 84 81 91 76 Resp: Temp: 98.5 ??F (36.9 ??C) 98.2 ??F (36.8 ??C) 97.8 ??F (36.6 ??C) 98.3 ??F (36.8 ??C) TempSrc: Oral Oral Oral Oral SpO2: 99% 100% 96% 99% Weight: Height: I/O last 3 completed shifts: In: 360 [P.O.:360] Out: - No intake/output data recorded. NPO DIET Exam: BP 100/73 (BP Location: Right arm, Patient Position: Semi Fowlers) Pulse 76 Temp 98.3 ??F (36.8??C) (Oral) Resp 16 Ht 5' 9 (1.753 m) Wt 123 lb 3.8 oz (55.9 kg) SpO2 99% BMI 18.20 kg/m?? General appearance: resting in bed Abdomen: soft, non-tender; bowel sounds normal; no masses, no organomegaly Labs: Recent Results (from the past 48 hours) BASIC METABOLIC PANEL Collection Time: 07/04/25 5:48 AM Result Value Ref Range Sodium 143 136 - 145 mmol/L Potassium 4.4 3.5 - 5.0 mmol/L Chloride 107 98 - 107 mmol/L Total CO2 31 (H) 22 - 29 mmol/L Anion Gap 5 (L) 7 - 16 mmol/L Calcium 8.5 (L) 8.6 - 10.4 mg/dL Glucose Lvl 87 70 - 99 mg/dL BUN 10 6 - 20 mg/dL Creatinine 0.82 0.51 - 1.30 mg/dL eGFR (CKD-EPIcr 2020) 91 >=60 mL/min/1.73 m2 CBC WITH DIFF Collection Time: 07/04/25 5:48 AM Result Value Ref Range WBC 7.9 3.7 - 10.3 x10(3)/mcL RBC 3.56 (L) 3.90 - 5.20 x10(6)/mcL Hgb 10.4 (L) 11.2 - 15.7 g/dL Hct 31.6 (L) 34.0 - 45.0 % MCV 88.8 80.0 - 100.0 fL MCH 29.2 26.0 - 34.0 pg MCHC 32.9 30.7 - 35.5 g/dL RDW 13.2 <=14.9 % Platelet 283 155 - 369 x10(3)/mcL MPV 9.2 8.8 - 12.5 fL Neut Percent 41.4 % Imm Gran% 0.4 % Lymph Percent 40.4 % [place] Percent 9.8 % Eos Percent 7.1 % Baso Percent 0.9 % Neut # 3.3 1.6 - 6.1 x10(3)/mcL IMMGRAN# 0.0 0.0 - 0.1 x10(3)/mcL Lymph # 3.2 1.2 - 3.9 x10(3)/mcL [place] # 0.8 0.3 - 0.9 x10(3)/mcL Eos# 0.6 (H) 0.0 - 0.5 x10(3)/mcL Baso # 0.1 0.0 - 0.1 x10(3)/mcL HEPATIC FUNCTION PANEL Collection Time: 07/04/25 5:48 AM Result Value Ref Range Total Protein 6.1 (L) 6.4 - 8.3 gm/dL Albumin 3.3 (L) 3.5 - 5.2 gm/dL Bili Direct <0.2 0.0 - 0.3 mg/dL Bili Total 0.2 0.2 - 1.3 mg/dL AST 15 <=40 U/L ALT 6 <=41 U/L Alk Phos 100 36 - 123 U/L PREALBUMIN Collection Time: 07/04/25 9:36 AM Result Value Ref Range Prealbumin 14.7 (L) 20.0 - 40.0 mg/dL IRON+TIBC Collection Time: 07/04/25 9:36 AM Result Value Ref Range Iron 43 30 - 160 mcg/dL Transferrin 181 (L) 200 - 360 mg/dL Transferrin Saturation 17 (L) 20 - 50 % TIBC 253 250 - 400 mcg/dL VITAMIN B12/ FOLIC ACID Collection Time: 07/04/25 9:36 AM Result Value Ref Range Vitamin B12 781 232 - 1,245 pg/mL Folate 6.93 >=4.80 ng/mL VITAMIN D 25 HYDROXY Collection Time: 07/04/25 9:36 AM Result Value Ref Range Vit D 25 OH 27.2 (L) 30.0 - 150.0 ng/mL Imaging: No results found. Stephanie Adamson APRN Cosigned by Bright Cornelius MD at 07/05/2025 2:15 PM EST Associated attestation - Bright Cornelius MD - 07/05/2025 2:15 PM EST Seen and examined Plans for EGD Suspect marginal ulcer Smoking cessation, PPIs, carafate Will follow * Roxana Hodges - 07/04/2025 8:11 PM EST Images from the original note were not included. 07/04/251999 Reason for Visit Date of visit 07/04/25 Visited With Patient Visited By Resort Desk Clerk Referral Source Nurse;Clinical Blow Moulding Machine Operator (Alexei requesting to visit chapel; request approved by nursing professor.) Reason for Visit Follow-up Patient Assessment Patient Appears Calm;Tearful Patient Protestant Upon Assessment (Belief in God.) Spiritual Strengths and Coping Resources Pets;Resilience or adaptability;Self- reflection;Accepts help from others;Sense of humor;Meaning or purpose;Spends time in prayer/spiritual practices Spiritual and Emotional Concerns Concerned for family coping/well-being;Grief/loss Patient Spiritual Wellbeing Moderate Acuity - Spiritual Distress Interventions with Patient Relationship Building Interventions Cultivated a relationship of care and support;Provided hospitality (Resort Desk Clerk escorted Alexei to chapel) Islam Interventions (Resort Desk Clerk will hold her , Richie, in prayer for his safety, protection, for nothing badto happen to him. ) Exploration Interventions Facilitated life review/reflection;Provided caring and supportive presence;Helped identify and clarify feelings or concerns;Explored spiritual needs and resources Empowerment Interventions Affirmed patient's experience;Affirmed individual's own spiritual journey Collaboration Interventions Consulted with interdisciplinary team Outcomes Expressed Outcomes Expressed gratitude;Progressed toward autonomy Care Plan Plan for Follow-Up Resort Desk Clerk(s) will continue to follow throughout admission Roxana Hodges MDiv Resort Desk Clerk, Pastoral and Spiritual Care For non-urgent requests, please place a Pastoral Care consult in PSYCHIATRIC. For all urgent matters, please send an urgent Epic Secure Chat to the Pastoral Care group at your location. Between 11pm and 7am, please use On-Call Finder to send an Epic Secure Chat to the on-call slab conditioner supervisor. Pastoral Care office phone numbers: EDG/COV/GRT [phone], RASHEL [phone], FTT [phone], DBN [phone] * Roxana Hodges - 07/04/2025 4:33 PM EST Images from the original note were not included. 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 ) Spiritual and Emotional Concerns Concerned for family coping/well-being;Coping with chronic illness;Struggling with the will to live;Grief/loss Patient Spiritual Wellbeing Moderate Acuity - Spiritual Distress Interventions with Patient Relationship Building Interventions Cultivated a relationship of care and support;Listened empathetically Exploration Interventions Provided safe space to process emotions or concerns;Facilitated search for meaning/purpose;Discussed illness/injury and its impact;Explored relational needs and resources;Identified and reinforced appropriate coping strategies and strengths Empowerment Interventions Affirmed patient's experience Outcomes Expressed Outcomes Appreciative of visit Care Plan Plan for Follow-Up Resort Desk Clerk(s) will continue to follow throughout admission Add to Follow Up List No Roxana Hodges MDiv Resort Desk Clerk, Pastoral and Spiritual Care For non-urgent requests, please place a Pastoral Care consult in PSYCHIATRIC. For all urgent matters, please send an urgent [facility] Secure Chat to the Pastoral Care group at your location. Between 11pm and 7am, please use On-Call Finder to send an [facility] Secure Chat to the on-call slab conditioner supervisor. Pastoral Care office phone numbers: EDG/COV/GRT [phone], RASHEL [phone], FTT [phone], DBN [phone] TEN * Katelyn Mc RN - 07/04/2025 2:50 PM EST 07/04/25 1447 Discharge Planning Evaluation Completed by CC/SW Yes Does patient meet high risk triggers? Change in baseline mobility;Recent decline in ability to carefor self physically IP Mental Health Referral Pending Yes Who you interviewed In person interview with patient Mental Status Alert and oriented Decision Maker Patient Who does pt identify as their caregiver/support person who will be their active partner in the dc planning process Pt identified caregiver/support person for dc planning process Caregiver Name Wade Bunn (Mother) Caregiver (Mobile) Does patient need jewelry polisher? No DME Used at Home CPAP Is PCP listed on facesheet correct? No Who does patient report as PCP? Rupa Hicks at [facility] Quality of Support System Good Identified psychosocial/financial issues Recent decline in ability to care for self Follow Up Assigned To: Referral not needed concern identified and addressed by City Planning Teacher Anticipated post-acute care needs Home with OP Follow Up Discussed discharge plans with Patient/Family/Caregiver/Support Person Yes, Discussed with patient Discussed discharge plans with Care Team at [facility] Yes, with nurse in attendance;Yes, with doctor in attendance Patient's goals for recovery Return to Prior Level of Functioning Actual Discharge Plan 07/04/25 CC INITIAL: Pt was admitted for abdominal pain. Pt lives with spouseand parents live next door. Pt was A&O and states before abdominal pain was able to take care of herself. Pt denies any HHC and states had a Cpap. Pcp: Rupa Hicks, Pharm: [facility], Nok: mom- Wade. Pt denies any issues. Pt states sometimes not enough money to purchase food-Pt toolkit with resources given to pt. Pt states at d/c, her mom, Wade, will drive her home. CC following. * Maureen Mcleod RD,LD - 07/04/2025 2:01 PM EST [facility] Nutrition Malnutrition Assessment Evidence Supported Malnutrition Diagnosis: Moderate protein-calorie malnutrition In the context of: Starvation Related (Social/Environmental) Indicators: moderate fat depletion;mild muscle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 history significant for a total abdominal hysterectomy due to endometrial cancer, exploratory surgery due to Endometriosis, Gastric bypass, cholecystectomy, and according to her chart she has had an appendectomy. CT abd/pelvis from 07/03/25 [facility]: no intraabdominal findings CT abd/pelvis with contrast from 01/2025 from : IMPRESSION: 1. Considerable gastric wall thickening with submucosal edema and adjacent perigastric edema in keeping with acute gastritis. 2. Proximal jejunal wall thickening at the jejunal anastomosis, further complicated by a short segmental intussusception. 3. Mild mesenteric and body wall edema. 4. No bowel obstruction or free air. 5. Fluid-filled nondilated distal small bowel likely sequela of enteritis. 6. Hepatic steatosis. 7. Status post gastric bypass. 8. Additional chronic and incidental findings. ALLERGIES Allergies[1] CURRENT MEDICATIONS Current Medications[2] PAST MEDICAL HISTORY Past Medical History[3] PAST SURGICAL HISTORY Surgical History[4] SOCIAL HISTORY Social History[5] FAMILY HISTORY Family History[6] Scheduled Meds: flu vac triv (PF) 0.5 mL Intramuscular ONCE pregabalin 200 mg Oral BID QUEtiapine 100 mg Oral Nightly Continuous Infusions: PRN Meds:acetaminophen, hydrOXYzine, LORazepam, ondansetron OR ondansetron, oxyCODONE ROS Pertinent items are noted in HPI. Patient Vitals for the past 24 hrs: BP Temp Temp src Pulse Resp SpO2 Height Weight 07/04/25 0844 108/77 98.1 ??F (36.7 ??C) Oral 87 16 99 % -- -- 07/03/25 2318 -- -- -- -- -- -- 5' 9 (1.753 m) 123 lb 3.8 oz (55.9 kg) 07/03/25 2229 117/74 99.3 ??F (37.4 ??C) Oral 98 16 100 % -- -- I/O last 3 completed shifts: In: 120 [P.O.:120] Out: - No intake/output data recorded. BP 108/77 (BP Location: Right arm, Patient Position: Semi Fowlers) Pulse 87 Temp 98.1 ??F (36.7??C) (Oral) Resp 16 Ht 5' 9 (1.753 m) Wt 123 lb 3.8 oz (55.9 kg) SpO2 99% BMI 18.20 kg/m?? General appearance: alert, appears stated age, cachectic, cooperative, no distress, and pale Abdomen: Xiphoid process is clearly visible. scaphoid abdomen, soft in the upper abdomen, but firm across the lower suprapubic region. tender to palpation diffusely, jumps with palpation of RLQ and epigastrium. Labs: CBC: Lab Results Component Value Date WBC 7.9 07/04/2025 RBC 3.56 (L) 07/04/2025 HGB 10.4 (L) 07/04/2025 HCT 31.6 (L) 07/04/2025 MCV 88.8 07/04/2025 MCHC 32.9 07/04/2025 RDW 13.2 07/04/2025 PLT 283 07/04/2025 MPV 9.2 07/04/2025 BMP: Lab Results Component Value Date NA 143 07/04/2025 K 4.4 07/04/2025 CL 107 07/04/2025 CO2 31 (H) 07/04/2025 BUN 10 07/04/2025 CREATININE 0.82 07/04/2025 CALCIUM 8.5 (L) 07/04/2025 GLU 87 07/04/2025 No results found for: ALKPHOS , ALT , AST , PROT , LABBILI , BILIDIR , IBILI , LABALBU No results found for: AMYLASE , LIPASE No results found for: SPECGRAV , UAPROTEIN , BLOODU , NITRITE , LEUKOCYTESUR , WBCUA , RBCUA UA POC: No results found for: UACOLORPOC , UAAPPEARPOC , UAGLUCPOC , UAKETONESPOC , UABLOODPOC , UAPHPOC , UAPROTEINPOC , UALEUKESTPOC , UASGPOC Coagulation: No results found for: PT , INR , APTT , HEPARINLEVEL Cardiac markers: No results found for: CKMB , TROPT , MYOGLOBIN ABGs: No results found for: PH , PCO2 , PO2 , HCO3 , TCO2 , BASEEXCESS , O2SAT , INSPIREDO2 , SPECIMENTYPE Thyroid Study: No results found for: TSH , Y3GTYHD , T3FREE Radiology: No results found. [1] Allergies Allergen Reactions Coriander & Cilantro (Coriandrum Sativum) Anaphylaxis Ibuprofen Other (See Comments) Post op bariatric [2] Current Facility-Administered Medications: acetaminophen (TYLENOL) tablet 650 mg, 650 mg, Oral, Q4H PRN, Kathy Geronimo APRN flu vac triv (PF) (FLULAVAL/FLUARIX) injection 0.5 mL, 0.5 mL, Intramuscular, ONCE, Zackery Villegas MD hydrOXYzine (VISTARIL) capsule 25-50 mg, 25-50 mg, Oral, QID PRN, Kathy Geronimo APRN LORazepam (ATIVAN) tablet 1 mg, 1 mg, Oral, BID PRN, Kathy Geronimo APRN, 1 mg at 07/03/25 7884 ondansetron (ZOFRAN) tablet 4 mg, 4 mg, Oral, Q6H PRN OR ondansetron (ZOFRAN) injection 4 mg, 4mg, Intravenous, Q6H PRN, Houlehan, Kathy A, [employer] oxyCODONE (ROXICODONE) immediate release tablet 5-10 mg, 5-10 mg, Oral, Q4H PRN, Houlehan, KathleenA, NEWS CAMERAMAN, 5 mg at 07/04/25 0726 pregabalin (LYRICA) capsule 200 mg, 200 mg, Oral, BID, Houlehan, Kathy A, NEWS CAMER[employer]AN, 200 mg at 07/04/25 0846 QUEtiapine (SEROquel) tablet 100 mg, 100 mg, Oral, Nightly, Houlehan, Kathy A, NEWS CAMERAMAN, 100 mg at 07/03/25 2345 [3] Past Medical History: Diagnosis Date Estevan-Danlos disease History of ankle surgery History of lumbosacral spine surgery Pain of intrathecal infusion pump pocket after insertion [4] Past Surgical History: Procedure Laterality Date APPENDECTOMY BACK SURGERY CHOLECYSTECTOMY HYSTERECTOMY [5] Social History Tobacco Use Smoking status: Some Days Types: Cigarettes Smokeless tobacco: Former Vaping Use Vaping status: Former Substances: Nicotine, THC, CBD, Flavoring, Y Devices: Disposable, Pre-filled or refillable cartridge, Refillable tank, Pre- filled pod, Y Substance Use Topics Alcohol use: Not Currently Drug use: Yes Types: Marijuana [6] History reviewed. No pertinent family history. Cosigned by Jamil Simon MD at 07/04/2025 10:14 PM EST Associated attestation - Jamil Simon MD - 07/04/2025 10:14 PM EST I have reviewed the history, relevant notes and labs/imaging; and did personally examine the patient and agree with assessment and plan mentioned by GIA Godinez. HPI:Ms.Ronny Macias is a 40 yr old female who was transferred from an out side hospital for evaluation of chronic abdominal pain. She says she had a gastric bypass in 2020 at [facility] and her weightwas 370 lbs. She has been having upper abdominal pain since her surgery. Her pain is felt in between her ribs and under her left ribcage . The pain goes under and towards her lower abdomen and then to the sides. Pain is worse after eating. She has nausea with vomiting. Not sure if she has blood in the vomitus. No fever or chills. She has constipation. She has the pain since her surgery and had a cholecystectomy with in few months after her bypass. She was seen at multiple hospitals for her painand was told to go back to see her surgeon. She doesn't want to go back as they didn't offer her anything. She is a smoker and is not on any blood thinners. She also had a hysterectomy. Constitutional: oriented to person, place, and time and cooperative. Pulmonary/Chest:No respiratory distress. Abdominal: min tenderness in the epigastric area Rest of the abdomen is soft Neurological: alert and oriented to person, place, and time. Skin: Skin is warm and intact. Psychiatric: normal mood and affect. Normal behavior. Stable vitals HCT, albumin and prealbumin are low CT abdomen - images not uploaded to [employer] yet IMP: chronic abdominal pain Gastric bypass status Smoker Malnutrition I feel her chronic upper abdominal pain is from a marginal ulcer Will ask GI to proceed with an UGI endoscopy Can have full liquid diet till MN PPI BID Carafate Rest of the management as per the medical team Will need to quit using tobacco No carbonation May need to get a PICC line and start her on TPN Surgery will follow documented in this encounter Miscellaneous Notes * Utilization Review Notes - Gill Higgins RN - 07/18/2025 1:41 PM EST Continued Stay Review - Patient admitted inpatient to med surg on 07/03/25 for general abdominal pain. IP order is on the chart Continues stay on med surg monitored unit. Afebrile, VSS, 100% on room air CO2 32, BUN 21, albumin 3.4 Fat emulsion infusion, IV Zofran, Roxicodone PO used x 17 doses in past 92 hours TPN administration - nutrition following Behavior Health following for anxiety disorder and borderline personality disorder Admitted with: 07/03/25 Generalized abdominal pain Not Ready for Discharge because: complications from previous Gastricd Bypass - is on TPN and needs OP doc to follow her. Has some edema and lasix helping. Wants to try soft foods today senior care planis to increase her strength w TPN before trying any further surgery to hopefuly correct the bypass issues Cardiac monitoring, suicide precautions CC following for DC needs - home with TPN * Utilization Review Notes - Gill Higgins RN - 07/14/2025 2:02 PM EST Continued Stay Review - Patient admitted inpatient to med surg on 07/03/25 for general abdominal pain. IP order is on the chart Continues stay on med surg monitored unit. Afebrile, VSS, 99% on room air CO2 30, anion gap 4, phosphorus 4.6 VA US lower extremities - results pending Fat emulsion infusion, Roxicodone prn Adult TPN Continuous cardiac monitoring, EGD 07/06/25 GI Recommendation Neg for H pylori Pantoprazole 40mg BID Sucralfate QID I do not expect patient to be able to tolerate solid food. She will need a surgical J tube or TPN. -- Pathology: A. Gastric biopsies: - Gastric body type mucosa with mild chronic inflammation. - Negative for H. pylori organisms on H&E stained slides. -- started on TPN per general surgery recommendations - high risk treatment monitoring for line infection, bacteremia, glucose and electrolyte abnormalities and hepatic dysfunction. -- recommend tobacco and cannabis cessation -- considerations for surgical revision or reversal once off tobacco and cannabis for 2 months and nutritional status improves. -- pain controlled. CC/SW following for DC needs * Utilization Review Notes - Gill Higgins RN - 07/11/2025 12:11 PM EST Continued Stay Review - Patient admitted inpatient to med surg on 07/03/25 for general abdominal pain. IP order is on the chart VITALS: T 99, BP 98/49, HR 72, RR 16, 99% on room air LABS: calcium 8.1, albumin 3.2 MEDS: fat emulsion 20% IV infusion, TPN ORDERS: Consult to psychiatry, GI consulted, TPN, suicide precautions NOTES: EDOD: Not Ready for Discharge because: Need for ongoing medical management, arrangement for TPN. DC PLAN: CC following * Utilization Review Notes - Gill Higgins RN - 07/07/2025 1:12 PM EST Continued Stay Review - Patient admitted inpatient to med surg on 07/03/25 for general abdominal pain. 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 Continued -- pain management, supportive care, IVF -- in setting of gastric bypass surgery, hx of marginal ulcers, PUD, cannabis use -- GI and bariatric surgery consulted -- added carafate -- EGD 07/06/2025 CC following for DC planning. * Plan of Care - Margaux Easley APRN - 07/06/2025 2:05 PM EST SEP GI EGD yesterday findings of ulcerated and fibrotic stricture (not traversable). Surgery team following, plans for TPN, full liquid diet has been started. No additional plans/recommendations from GI at this time, will not follow, call with any concerns/questions. Margaux Easley APRN * Utilization Review Notes - Gill Higgins RN - 07/04/2025 1:37 PM EST Initial Review - Patient admitted inpatient to med surg on 07/03/25 for general abdominal pain. IP order is on the chart. VITALS: T99.3, PB 108/77, HR 87, RR 16, 99% on room air MEDS: Augmentin PO (abscessed tooth), Roxicodone PO x 3 doses ORDERS: NPO with meds, GI consult, psychiatry consult, nutrition consult, ECHO Psychiatry consulted for suicidal ideations - eval pending Cardiology consulted - h/o of Afib, PE, potential need for clearance for EGD/surgery possibility inthe future NOTES: Surgery note 07/04/25 No acute surgical intervention planned at this time, any Increased pain, increasing leukocytosis, increasing SIRS criteria, etc., would prompt a change in management to operative intervention DC PLAN: CC following documented in this encounter Plan of Treatment Scheduled Referrals Name Type Priority Associated Diagnoses Orde r Schedule AMB REFERRAL TO TOBACCO CESSATION PROGRAM Outpatient Referral Routine Ordered: 07/04/2025 documented as of this encounter Procedures Procedure Name Priority Date/Time Associated Diagnosis Comments GLUCOSE METER POC Routine 07/19/2025 9:49 AM EST GLUCOSE METER POC Routine 07/19/2025 1:03 AM EST BASIC METABOLIC PANEL BABAR 07/18/2025 6:51 PM EST ECG AND WAVEFORMS - TELEMETRY Routine 07/18/2025 7:03 AM EST GLUCOSE METER POC Routine 07/18/2025 6:37 AM EST GLUCOSE METER POC Routine 07/18/2025 1:04 AM EST ECG AND WAVEFORMS - TELEMETRY Routine 07/17/2025 7:31 PM EST GLUCOSE METER POC Routine 07/17/2025 6:05 PM EST XR CHEST AP PORTABLE STAT 07/17/2025 12:20 PM EST GLUCOSE METER POC Routine 07/17/2025 11:40 AM EST PHOSPHORUS LEVEL BABAR 07/17/2025 8:33 AM EST ECG AND WAVEFORMS - TELEMETRY Routine 07/17/2025 7:02 AM EST GLUCOSE METER POC Routine 07/17/2025 6:59 AM EST CALCIUM, IONIZED Early AM 07/17/2025 5:56 AM EST CBC Timed 07/17/2025 5:56 AM EST PARTIAL THROMBOPLASTIN TIME Timed 08/2024 5:56 AM EST PT / INR Timed 07/17/2025 5:56 AM EST TRIGLYCERIDES Timed 07/17/2025 5:56 AM EST PREALBUMIN Timed 07/17/2025 5:56 AM EST PHOSPHORUS LEVEL Timed 07/17/2025 5:56 AM EST MAGNESIUM LEVEL Timed 07/17/2025 5:56 AM EST HEPATIC FUNCTION PANEL Timed 5:56 AM EST BASIC METABOLIC PANEL Timed 07/17/2025 5:56 AM EST GLUCOSE METER POC Routine 07/17/2025 12:07 AM EST ECG AND WAVEFORMS - TELEMETRY Routine 07/16/2025 7:34 PM EST GLUCOSE METER POC Routine 07/16/2025 6:24 PM EST GLUCOSE METER POC Routine 07/16/2025 12:16 PM EST ECG AND WAVEFORMS - TELEMETRY Routine 07/16/2025 8:00 AM EST GLUCOSE METER POC Routine 07/16/2025 6:21 AM EST PHOSPHORUS LEVEL Add-On 07/16/2025 5:25 AM EST MAGNESIUM LEVEL Add-On 07/16/2025 5:25 AM EST BASIC METABOLIC PANEL Routine 07/16/2025 5:25 AM EST GLUCOSE METER POC Routine 07/16/2025 12:02 AM EST ECG AND WAVEFORMS - TELEMETRY Routine 07/15/2025 7:22 PM EST GLUCOSE METER POC Routine 07/15/2025 6:48 PM EST GLUCOSE METER POC Routine 07/15/2025 12:25 PM EST ECG AND WAVEFORMS - TELEMETRY Routine 07/15/2025 7:38 AM EST PHOSPHORUS LEVEL Early AM 07/15/2025 6:39 AM EST BASIC METABOLIC PANEL Early AM 07/15/2025 6:39 AM EST GLUCOSE METER POC Routine 07/15/2025 1:05 AM EST ECG AND WAVEFORMS - TELEMETRY Routine 07/14/2025 7:21 PM EST GLUCOSE METER POC Routine 07/14/2025 6:56 PM EST GLUCOSE METER POC Routine 07/14/2025 3:16 PM EST VA US UPPER EXTREMITY VENOUS RIGHT Routine 07/14/2025 12:24 PM EST VA US LOWER EXTREMITY VENOUS BILATERAL BABAR 07/14/2025 12:24 PM EST ECG AND WAVEFORMS - TELEMETRY Routine 07/14/2025 8:08 AM EST GLUCOSE METER POC Routine 07/14/2025 6:13 AM EST GLUCOSE METER POC Routine 07/14/2025 12:12 AM EST ECG AND WAVEFORMS - TELEMETRY Routine 07/13/2025 9:28 PM EST GLUCOSE METER POC Routine 07/13/2025 6:03 PM EST GLUCOSE METER POC Routine 07/13/2025 12:00 PM EST ECG AND WAVEFORMS - TELEMETRY Routine 07/13/2025 7:52 AM EST GLUCOSE METER POC Routine 07/13/2025 6:37 AM EST PHOSPHORUS LEVEL Timed 07/13/2025 6:03 AM EST MAGNESIUM LEVEL Timed 07/13/2025 6:03 AM EST BASIC METABOLIC PANEL Timed 07/13/2025 6:03 AM EST GLUCOSE METER POC Routine 07/12/2025 11:49 PM EST ECG AND WAVEFORMS - TELEMETRY Routine 07/12/2025 8:13 PM EST GLUCOSE METER POC Routine 07/12/2025 11:49 AM EST ECG AND WAVEFORMS - TELEMETRY Routine 07/12/2025 7:35 AM EST GLUCOSE METER POC Routine 07/12/2025 5:23 AM EST GLUCOSE METER POC Routine 07/11/2025 11:55 PM EST ECG AND WAVEFORMS - TELEMETRY Routine 07/11/2025 9:00 PM EST GLUCOSE METER POC Routine 07/11/2025 5:56 PM EST ECG AND WAVEFORMS - TELEMETRY Routine 07/11/2025 2:30 PM EST GLUCOSE METER POC Routine 07/11/2025 1:03 PM EST GLUCOSE METER POC Routine 07/11/2025 11:58 AM EST GLUCOSE METER POC Routine 07/11/2025 7:04 AM EST GLUCOSE METER POC Routine 07/10/2025 11:18 PM EST GLUCOSE METER POC Routine 07/10/2025 5:38 PM EST GLUCOSE METER POC Routine 07/10/2025 12:27 PM EST VA US LOWER EXTREMITY VENOUS LEFT Routine 07/10/2025 8:10 AM EST VA US UPPER EXTREMITY VENOUS RIGHT Routine 07/10/2025 8:10 AM EST CBC Timed 07/10/2025 6:10 AM EST PARTIAL THROMBOPLASTIN TIME Timed 06/18 6:10 AM EST PT / INR Timed 07/10/2025 6:10 AM EST TRIGLYCERIDES Timed 07/10/2025 6:10 AM EST PREALBUMIN Timed 07/10/2025 6:10 AM EST PHOSPHORUS LEVEL Timed 07/10/2025 6:10 AM EST MAGNESIUM LEVEL Timed 07/10/2025 6:10 AM EST HEPATIC FUNCTION PANEL Timed 6:10 AM EST BASIC METABOLIC PANEL Timed 07/10/2025 6:10 AM EST GLUCOSE METER POC Routine 07/10/2025 6:00 AM EST GLUCOSE METER POC Routine 07/09/2025 11:48 PM EST GLUCOSE METER POC Routine 07/09/2025 6:14 PM EST XR CHEST PA AND LATERAL BABAR 07/09/20 3:21 PM EST GLUCOSE METER POC Routine 07/09/2025 12:29 PM EST PHOSPHORUS LEVEL Timed 07/09/2025 6:16 AM EST MAGNESIUM LEVEL Timed 07/09/2025 6:16 AM EST BASIC METABOLIC PANEL Early AM 07/09/2025 6:16 AM EST GLUCOSE METER POC Routine 07/09/2025 6:01 AM EST GLUCOSE METER POC Routine 07/08/2025 11:45 PM EST GLUCOSE METER POC Routine 07/08/2025 5:59 PM EST GLUCOSE METER POC Routine 07/08/2025 1:45 PM EST GLUCOSE METER POC Routine 07/08/2025 9:02 AM EST GLUCOSE METER POC Routine 07/08/2025 6:34 AM EST PHOSPHORUS LEVEL Early AM 07/08/2025 5:15 AM EST MAGNESIUM LEVEL Early AM 07/08/2025 5:15 AM EST BASIC METABOLIC PANEL Early AM 07/08/2025 5:15 AM EST GLUCOSE METER POC Routine 07/08/2025 12:05 AM EST GLUCOSE METER POC Routine 07/07/2025 12:48 PM EST CALCIUM, IONIZED BABAR 07/07/2025 8:19 AM EST EXTRA TUBES PANEL Routine 07/07/2025 5:52 AM EST EXTRA LAVENDER Routine 07/07/2025 5:52 AM EST PHOSPHORUS LEVEL Early AM 07/07/2025 5:52 AM EST MAGNESIUM LEVEL Early AM 07/07/2025 5:52 AM EST BASIC METABOLIC PANEL Early AM 07/07/2025 5:52 AM EST GLUCOSE METER POC Routine 07/07/2025 5:47 AM EST GLUCOSE METER POC Routine 07/07/2025 12:04 AM EST BEDSIDE PICC INSERTION (PICC TEAM RN) Routine 07/06/2025 10:18 AM EST EC ECHOCARDIOGRAM COMPLETE W DOPPLER AND COLOR FLOW MAPPING Routine 07/06/2025 9:37 AM EST US 3GC VERIFICATION STAT 07/06/2025 8:36 AM EST PHOSPHORUS LEVEL Early AM 07/06/2025 5:05 AM EST MAGNESIUM LEVEL Early AM 07/06/2025 5:05 AM EST HEPATIC FUNCTION PANEL Early AM 5:05 AM EST BASIC METABOLIC PANEL Early AM 07/06/2025 5:05 AM EST ADMIT Routine 07/05/2025 9:55 PM EST CBC BABAR 07/05/2025 5:02 PM EST TRIGLYCERIDES Routine 07/05/2025 5:02 PM EST TRIGLYCERIDES BABAR 07/05/2025 5:02 PM EST PREALBUMIN BABAR 07/05/2025 5:02 PM EST PHOSPHORUS LEVEL BABAR 07/05/2025 5:02 PM EST MAGNESIUM LEVEL BABAR 07/05/2025 5:02 PM EST HEPATIC FUNCTION PANEL BABAR 5:02 PM EST BASIC METABOLIC PANEL BABAR 07/05/2025 5:02 PM EST PARTIAL THROMBOPLASTIN TIME BABAR 06/17 5:01 PM EST PT / INR BABAR 07/05/2025 5:01 PM EST IP CONSULT TO NUTRITION Routine 07/05/20 3:32 PM EST ESOPHAGOGASTRODUODENOSCOPY (EGD) Routine 07/05/2025 2:34 PM EST Pain of upper abdomen PATHOLOGY TISSUE REQUEST Routine 025 2:31 PM EST Pain of upper abdomen IV SITE CARE Routine 07/05/2025 12:38 PM EST ADMIT Routine 07/04/2025 1:35 PM EST VITAMIN B1 (THIAMINE) WHOLE BLOOD -REF LAB Routine 07/04/2025 9:37 AM EST NICOTINE+METABOLITE, SERUM/PLASMA - REF LAB Routine 07/04/2025 9:36 AM EST IRON+TIBC Routine 07/04/2025 9:36 AM EST VITAMIN B12/ FOLIC ACID Routine 07/04/20 9:36 AM EST VITAMIN D 25 HYDROXY Routine 07/04/2025 9:36 AM EST PREALBUMIN Routine 07/04/2025 9:36 AM EST IP CONSULT TO GI Routine 07/04/2025 9:12 AM EST Procedure Note - David Peguero MD - 07/04/2025 6:33 PM ESTThis note is in progress. [facility] Consult Note Primary Care Physician: No primary care provider on file. Date of Admission: 07/03/2025 Date of Consultation: 07/04/2025 Reason for Consult: abdominal pain HPI: Alexei Macias is a 40 y.o. female referred to me in consultation byDr. Bradford Sauceda for evaluation of above cc. 40 YO female, unknown to our service, pmhx includes chronic pain,Estevan-Danlos disease. Patient presented to [facility] ED for acute on chronicabdominal pain , she was admitted to [facility] for further care. Patientwith history of gastric bypass in 2020, reports chronic worsening painsince her surgery. She reports multiple upper endoscopies in the past,many times with ulcers everywhere , she is non-compliant with PPItherapy, reports to smoking around 5 cigarettes daily. Denies any NSAIDuse/alcohol. Patient does admit to smoking marijuana/using THC gummiesregularly to help stimulate appetite. CTAP from ED with no acutefindings. Patient reports last EGD about 1 year ago. She describeschronic intermittent black/blood in stools and emesis. Stated shetypically has a bowel movement every 1 to 2 weeks. Patient reports chronic pain since her surgery but has had worseningsymptoms in the last 2 years. Patient describes diffuse abdominal pain,worse with movement and PO intake. Reports she mainly eats crackers/chipsand warm liquids. Tearful during my history, reported that she does notwish to live if her pain cannot be controlled, Psych has been consultedhere. Prior Endoscopies: Prescriptions Prior to Admission[1] Current Medications: amoxicillin-clavulanate 1 Tablet Oral BID estradioL 4 g Vaginal Once per day on Thursday flu vac triv (PF) 0.5 mL Intramuscular ONCE pantoprazole 40 mg Oral BID pregabalin 200 mg Oral BID QUEtiapine 100 mg Oral Nightly sucralfate 2 g Oral BID Allergies: Allergies[2] Past Medical History: Past Medical History[3] Past Surgical History: Surgical History[4] Family History: Family History[5] Social History: Social History[6] ROS Constitutional: Denies fever,sweats, chills or weight loss Eyes: Denies change in visual acuity HENT: Denies hearing loss or dizziness Respiratory: Denies cough or shortness of breath Cardiovascular: Denies edema or chest pain : Denies dysuria, hematuria, urgency or frequency Musculoskeletal: Denies back pain or joint pain Integument: Denies rash Neurologic: Denies headache, previous stroke, TIA, confusion Endocrine: Denies polyuria or polydipsia Lymphatic: Denies swollen glands Psychiatric: Denies depression or anxiety Hematologic: Denies easy bruising All other systems were reviewed and were negative except for those notedabove in HPI. PHYSICAL EXAM: VITAL SIGNS: BP 108/64 (BP Location: Right arm, Patient Position: SemiFowlers) Pulse 84 Temp 98.5 F (36.9 C) (Oral) Resp 18 Ht 5'9 (1.753 m) Wt 123 lb 3.8 oz (55.9 kg) SpO2 99% BMI 18.20 kg/m Date 07/04/25 0700 - 07/05/25 0659 Shift 0333-7440 5740-1369 8736-8569 24 Hour Total INTAKE P.O. 360 360 Shift Total(mL/kg) 360(6.4) 360(6.4) OUTPUT Shift Total(mL/kg) Weight (kg) 55.9 55.9 55.9 55.9 Constitutional: Well developed. Well nourished. Non-toxic appearance.No acute distress HENT: Normocephalic. Atraumatic. Bilateral external ears normal. Moistmucous membranes. Eyes: No scleral icterus Neck: Supple, no thyromegaly Lymphatic: No cervical or inguinal lymphadenopathy noted. Cardiovascular: RRR, No edema Thorax & Lungs: Breathing comfortably. GI: Abdomen is soft, diffusely tender. No guarding, spasm or rebound. Nohepatomegaly. No splenomegaly. No ascites Rectal: Deferred. : No CVA tenderness, kidneys not ballotable, Skin: Warm, dry. No erythema. No rash. Extremities: No clubbing. No cyanosis. Palpable pulses. No edema Neurologic: Alert & oriented x 3, No Asterixis RESULTS Lab Results Component Value Date ALT 6 07/04/2025 AST 15 07/04/2025 ALKPHOS 100 07/04/2025 BILIDIR <0.2 07/04/2025 PROT 6.1 (L) 07/04/2025 Lab Results Component Value Date WBC 7.9 07/04/2025 HGB 10.4 (L) 07/04/2025 HCT 31.6 (L) 07/04/2025 MCV 88.8 07/04/2025 PLT 283 07/04/2025 Lab Results Component Value Date CREATININE 0.82 07/04/2025 BUN 10 07/04/2025 NA 143 07/04/2025 K 4.4 07/04/2025 CL 107 07/04/2025 CO2 31 (H) 07/04/2025 No results found. IMAGES No results found for this or any previous visit. No results found for this or any previous visit. No results found for this or any previous visit. Microbiology No results found for: OCCULTBLD ASSESSMENT # Acute on chronic abdominal pain # Anorexia # history of RYGB # history of endometriosis # history of cholecystectomy # Estevan Danlos # normocytic anemia PLAN - EGD tomorrow - PPI 40mg BID - hold sucralfate prior to EGD; may resume tomorrow. - okay for clear liquids as it seems they are well tolerated usually.. - NPO after NM Gastroenterology Disposition Perspective -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 Co de Phone Number [facility] [address] [place] [address] * GLUCOSE METER POC (07/18/2025 1:04 AM EST) Glucose Meter POC 71 70 - 100 mg/dL 07/18/2025 1:06 AM EST [facility] Sample Type Capillary 07/18/2025 1:06 AM EST [facility] Patient Status Non-Critical Patient 07/18/2025 1:06 AM EST [facility] Blood BLOOD SPECIMEN / Unknown 07/18/2025 1:04 AM EST 07/18/2025 1:06 AM EST us Zackery Villegas MD POINT OF CARE TEST ORDERAB LES Final Result Performing Organization Address [facility] Co de Phone Number [facility] [address] [place] [address] * ECG AND WAVEFORMS - TELEMETRY (07/17/2025 7:31 PM EST) ECG INTERPRET NSR [facility] 07/17/2025 7:31 PM EST Narrative [facility] - 07/17/2025 9:04 PM EST ROUTINE (CB) WA 0.15 QRS 0.06 RR 0.78 QT 0.35 QTc 0.39 See Clinical Report link for waveform capture us Unknown Provider POINT OF CARE CARDIOLOGY Final Result Performing Organization Address City/[facility]/ZIP Co de Phone Number [facility] [address] [place], [place] [id number] * (ABNORMAL) GLUCOSE METER POC (07/17/2025 6:05 PM EST) Glucose Meter POC 145(H) 70 - 100 mg/dL 07/17/2025 6:06 PM EST [facility] Sample Type Capillary 07/17/2025 6:06 PM EST [facility] Patient Status Non-Critical Patient 07/17/2025 6:06 PM EST [facility] Blood BLOOD SPECIMEN / Unknown 07/17/2025 6:05 PM EST 07/17/2025 6:06 PM EST us Zackery Villegas MD POINT OF CARE TEST ORDERAB LES Final Result [facility] [address] [place] [address] * XR CHEST AP PORTABLE (07/17/2025 12:20 PM EST) Anatomical Region Laterality Modality Chest Radiographic Joanne ging 07/17/2025 12:2 0 PM EST Impressions 07/17/2025 12:55 PM EST PICC line tip overlies the SVC. - Note: Radiology results need to be interpreted within a comprehensive clinical context. If you have questions about the radiology report, please contact the office of the ordering clinician. Narrative 07/17/2025 12:55 PM EST XR CHEST AP PORTABLE, 07/17/2025 12:20 PM CLINICAL HISTORY: -PICC tip location due to no blood return after alteplase x 2 COMPARISON: 07/09/2025. PROCEDURE COMMENTS: AP portable technique. FINDINGS: Support devices: Right PICC line tip overlies the SVC approximately 4.3 cm above the cavoatrial junction. Heart and mediastinal contours within normal limits for technique. No active failure, pneumonia, or visible effusion. No visible pneumothorax. Procedure Note Pao Littlejohn MD - 07/17/2025 XR CHEST AP PORTABLE, 07/17/2025 12:20 PM CLINICAL HISTORY: -PICC tip location due to no blood return afteralteplase x 2 COMPARISON: 07/09/2025. PROCEDURE COMMENTS: AP portable technique. FINDINGS: Support devices: Right PICC line tip overlies the SVC approximately 4.3 cmabove the cavoatrial junction. Heart and mediastinal contours within normal limits for technique. Noactive failure, pneumonia, or visible effusion. No visible pneumothorax. IMPRESSION: PICC line tip overlies the SVC. - Note: Radiology results need to be interpreted within a comprehensiveclinical context. If you have questions about the radiology report, please contactthe office of the ordering clinician. us Abelino Calderon MD IMG DIAGNOSTIC IMAGING ORDERA BLES Final Result * GLUCOSE METER POC (07/17/2025 11:40 AM EST) Pathologist [facility] Glucose Meter POC 93 70 - 100 mg/dL 07/17/2025 11:41 AM EST [facility] Sample Type Capillary 07/17/2025 11:41 AM EST [facility] Patient Status Non-Critical Patient 07/17/2025 11:41 AM EST [facility] Blood BLOOD SPECIMEN / Unknown 07/17/2025 11:40 AM EST 07/17/2025 11:41 AM EST Zackery Villegas MD POINT OF CARE TEST ORDERAB LES Final Result Performing Organization Address [facility] Co de Phone Number [facility] [address] [place] [address] * PHOSPHORUS LEVEL (07/17/2025 8:33 AM EST) [facility] Phosphorus 3.9 2.5 - 4.5 mg/dL 07/17/2025 8:58 AM EST [facility] Blood VENOUS BLOOD / Unknown Venipuncture / Unknown 07/17/2025 8:33 AM EST 07/17/2025 8:39 AM EST Abelino Calderon MD CHEMISTRY ORDERABLES Final Re sult Performing Organization Address [facility] Co de Phone Number [facility] [address] [place] [address] * ECG AND WAVEFORMS - TELEMETRY (07/17/2025 7:02 AM EST) Pathologist [facility] ECG INTERPRET NSR [facility] 07/17/2025 7:02 AM EST Narrative [facility] - 07/17/2025 8:45 AM EST VR, ROUTINE WA 0.15 QRS 0.10 RR 0.78 QT 0.39 QTc 0.44 See Clinical Report link for waveform capture us Unknown Provider POINT OF CARE CARDIOLOGY Final Result [facility] [address] [place] [address] * (ABNORMAL) GLUCOSE METER POC (07/17/2025 6:59 AM EST) [facility] Glucose Meter POC 133(H) 70 - 100 mg/dL 07/17/2025 7:01 AM EST [facility] Sample Type Capillary 07/17/2025 7:01 AM EST [facility] Patient Status Non-Critical Patient 07/17/2025 7:01 AM EST [facility] Blood BLOOD SPECIMEN / Unknown 07/17/2025 6:59 AM EST 07/17/2025 7:01 AM EST us Zackery Villegas MD POINT OF CARE TEST ORDERAB LES Final Result [facility] [address] [place] [id number] * (ABNORMAL) PREALBUMIN (07/17/2025 5:56 AM EST) [facility] Prealbumin 16.9(L) 20.0 - 40.0 mg/dL 07/17/2025 8:04 AM EST [facility] Blood VENOUS BLOOD / Unknown Venipuncture / Unknown 07/17/2025 5:56 AM EST 07/17/2025 6:01 AM EST us Stephanie Adamson [employer] CHEMISTRY ORDERABLES Fi nal Result [facility] [employer] [address] [place] [address] * TRIGLYCERIDES (07/17/2025 5:56 AM EST) Triglyceride 44 <150 mg/dL 07/17/2025 8:07 AM EST [email or web address] Comment: < 150 Normal 150 - 199 Borderline High 200 - 499 High >= 500 Very High Blood VENOUS BLOOD / Unknown Venipuncture / Unknown 07/17/2025 5:56 AM EST 07/17/2025 6:01 AM EST Stephanie Adamson [employer] CHEMISTRY ORDERABLES Fi nal Result Performing Organization Address City/[facility]/ZIP Co de Phone Number [email or web address] [address] , [place] [address] * PARTIAL THROMBOPLASTIN TIME (07/17/2025 5:56 AM EST) Pathologist [facility] PTT 30.3 25.7 - 36.8 second(s) 07/17/2025 6:15 AM EST [facility] Comment: Therapeutic range for unfractionated heparin: 50.1 - 98.7 seconds Therapeutic range for direct thrombin inhibitors: Argatroban is 1.5 to 3 times the aPTT baseline. Lepirudin is 1.5 to 2 times the aPTT baseline. The aPTT should not exceed 100 seconds. The dosage of Argatroban should be decreased in patients with hepatic impairment. The dosage of Lepirudin should be decreased in renal insufficiency. Blood VENOUS BLOOD / Unknown Venipuncture / Unknown 07/17/2025 5:56 AM EST 07/17/2025 6:02 AM EST Stephanie Adamson [employer] HEMATOLOGY ORDERABLES F inal Result [facility] [address] [place] [address] * PT / INR (07/17/2025 5:56 AM EST) Pathologist [facility] PT 11.6 10.5 - 13.6 second(s) 07/17/2025 6:15 AM EST [facility] INR 1.01 0.91 - 1.18 (ratio) 07/17/2025 6:15 AM EST [facility] Comment: Level of Therapy Indications Target INR Range Standard Dose Treatment and prophylaxis of venous 2.0 - 3.0 thrombosis, pulmonary embolism High Dose High risk patients with mechanical 2.5 - 3.5 heart valves Blood VENOUS BLOOD / Unknown Venipuncture / Unknown 07/17/2025 5:56 AM EST 07/17/2025 6:02 AM EST Stephanie Adamson [employer] HEMATOLOGY ORDERABLES F inal Result Performing Organization Address [facility] de Phone Number [facility] [address] [place] [address] * MAGNESIUM LEVEL (07/17/2025 5:56 AM EST) Magnesium 2.1 1.6 - 2.4 mg/dL 07/17/2025 6:23 AM EST [facility] Blood VENOUS BLOOD / Unknown Venipuncture / Unknown 07/17/2025 5:56 AM EST 07/17/2025 6:01 AM EST Stephanie Adamson [employer] CHEMISTRY ORDERABLES Fi nal Result Performing Organization Address [facility] de Phone Number [facility] [address] [place] [address] * (ABNORMAL) PHOSPHORUS LEVEL (07/17/2025 5:56 AM EST) Phosphorus 4.8(H) 2.5 - 4.5 mg/dL 07/17/2025 6:23 AM EST [facility] Blood VENOUS BLOOD / Unknown Venipuncture / Unknown 07/17/2025 5:56 AM EST 07/17/2025 6:01 AM EST Stephanie Adamson [employer] CHEMISTRY ORDERABLES Fi nal Result Performing Organization Address City/[facility] de Phone Number [facility] [address] [place] [address] * (ABNORMAL) HEPATIC FUNCTION PANEL (07/17/2025 5:56 AM EST) Pathologist [facility] Total Protein 6.3(L) 6.4 - 8.3 gm/dL 07/17/2025 6:23 AM EST [facility] Albumin 3.4(L) 3.5 - 5.2 gm/dL 07/17/2025 6:23 AM EST [facility] Bili Direct <0.2 0.0 - 0.3 mg/dL 07/17/2025 6:23 AM EST [facility] Bili Total <0.2(L) 0.2 - 1.3 mg/dL 07/17/2025 6:23 AM EST [facility] AST 17 <=40 U/L 07/17/2025 6:23 AM EST [facility] ALT 12 <=41 U/L 07/17/2025 6:23 AM EST [facility] Alk Phos 90 36 - 123 U/L 07/17/2025 6:23 AM EST [facility] Blood VENOUS BLOOD / Unknown Venipuncture / Unknown 07/17/2025 5:56 AM EST 07/17/2025 6:01 AM EST us Stephanie Adamson [employer] CHEMISTRY ORDERABLES Fi nal Result [facility] [address] [place] [address] * (ABNORMAL) CBC (07/17/2025 5:56 AM EST) Pathologist [facility] WBC 5.1 3.7 - 10.3 x10(3)/mcL 07/17/2025 6:06 AM EST [facility] RBC 3.73(L) 3.90 - 5.20 x10(6)/mcL 07/17/2025 6:06 AM EST [facility] Hgb 11.0(L) 11.2 - 15.7 g/dL 07/17/2025 6:06 AM EST [facility] Hct 33.3(L) 34.0 - 45.0 % 07/17/2025 6:06 AM [facility] MCV 89.3 80.0 - 100.0 fL 07/17/2025 6:06 AM EST [facility] MCH 29.5 26.0 - 34.0 pg 07/17/2025 6:06 AM EST [facility] MCHC 33.0 30.7 - 35.5 g/dL 07/17/2025 6:06 AM EST [facility] RDW 14.0 <=14.9 % 07/17/2025 6:06 AM EST [facility] Platelet 196 155 - 369 x10(3)/mcL 07/17/2025 6:06 AM [facility] MPV 10.1 8.8 - 12.5 fL 07/17/2025 6:06 AM [facility] Blood VENOUS BLOOD / Unknown Venipuncture / Unknown 07/17/2025 5:56 AM EST 07/17/2025 6:01 AM EST us Stephanie Adamson [employer] HEMATOLOGY ORDERABLES F inal Result [facility] [address] [place] [address] * (ABNORMAL) BASIC METABOLIC PANEL (07/17/2025 5:56 AM EST) Sodium 140 136 - 145 mmol/L 07/17/2025 6:23 AM [facility] Potassium 4.6 3.5 - 5.0 mmol/L 07/17/2025 6:23 AM [facility] Chloride 103 98 - 107 mmol/L 07/17/2025 6:23 AM [facility] Total CO2 32(H) 22 - 29 mmol/L 07/17/2025 6:23 AM [facility] Anion Gap 5(L) 7 - 16 mmol/L 07/17/2025 6:23 AM [facility] Calcium 8.9 8.6 - 10.4 mg/dL 07/17/2025 6:23 AM [facility] Glucose Lvl 95 70 - 99 mg/dL 07/17/2025 6:23 AM [facility] BUN 21(H) 6 - 20 mg/dL 07/17/2025 6:23 AM [facility] Creatinine 0.78 0.51 - 1.30 mg/dL 07/17/2025 6:23 AM [facility] eGFR (CKD-EPIcr 2020) 97 >=60 mL/min/1.7 3 m2 07/17/2025 6:23 AM [facility] Comment:Estimated GFR was ca lculated using the CKD-EPIcr (2020) equation refit without race. The equation is recommended by the [employer] - [place] [employer] Nephrology Task Force. Blood VENOUS BLOOD / Unknown Venipuncture / Unknown 07/17/2025 5:56 AM EST 07/17/2025 6:01 AM EST us Stephanie Adamson APRN CHEMISTRY ORDERABLES Fi nal Result Performing Organization Address City/[facility]/ZIP Co de Phone Number [facility] [address] [place] [address] * IONIZED CALCIUM - INPATIENT (07/17/2025 5:56 AM EST) Calcium Ionized 1.18 1.12 - 1.32 mmol/L 07/17/2025 6:07 AM EST [facility] Blood VENOUS BLOOD / Unknown Venipuncture / Unknown 07/17/2025 5:56 AM EST 07/17/2025 6:01 AM EST us Zackery Villegas MD CHEMISTRY ORDERABLES Final Result [facility] [address] [place] [address] * GLUCOSE METER POC (07/17/2025 12:07 AM EST) Glucose Meter POC 99 70 - 100 mg/dL 07/17/2025 12:09 AM EST [facility] Sample Type Capillary 07/17/2025 12:09 AM EST [facility] Patient Status Non-Critical Patient 07/17/2025 12:09 AM EST [facility] Blood BLOOD SPECIMEN / Unknown 07/17/2025 12:07 AM EST 07/17/2025 12:09 AM EST us Zackery Villegas MD POINT OF CARE TEST ORDERAB LES Final Result [facility] [address] [place] [address] * ECG AND WAVEFORMS - TELEMETRY (07/16/2025 7:34 PM EST) ECG INTERPRET NSR [facility] 07/16/2025 7:34 PM EST Narrative [facility] - 07/16/2025 7:39 PM EST ROUTINE/ RG WA 0.16 QRS 0.10 RR 0.66 QT 0.35 QTc 0.43 See Clinical Report link for waveform capture us Unknown Provider POINT OF CARE CARDIOLOGY Final Result [facility] [address] [place] [address] * GLUCOSE METER POC (07/16/2025 6:24 PM EST) Glucose Meter POC 89 70 - 100 mg/dL 07/16/2025 6:25 PM EST [facility] Sample Type Capillary 07/16/2025 6:25 PM EST [facility] Patient Status Non-Critical Patient 07/16/2025 6:25 PM EST [facility] Blood BLOOD SPECIMEN / Unknown 07/16/2025 6:24 PM EST 07/16/2025 6:25 PM EST us Zackery Villegas MD POINT OF CARE TEST ORDERAB LES Final Result [facility] [address] [place] [address] * GLUCOSE METER POC (07/16/2025 12:16 PM EST) Glucose Meter POC 76 70 - 100 mg/dL 07/16/2025 12:18 PM EST [facility] Sample Type Capillary 07/16/2025 12:18 PM EST [facility] Patient Status Non-Critical Patient 07/16/2025 12:18 PM EST [facility] Blood BLOOD SPECIMEN / Unknown 07/16/2025 12:16 PM EST 07/16/2025 12:18 PM EST Zackery Villegas MD POINT OF CARE TEST ORDERAB LES Final Result [facility] [address] [place] [id number] * ECG AND WAVEFORMS - TELEMETRY (07/16/2025 8:00 AM EST) ECG INTERPRET NSR [facility] 07/16/2025 8:00 AM EST Narrative [facility] - 07/16/2025 9:21 AM EST DT/ROUTINE WA 0.15 QRS 0.09 RR 0.80 QT 0.38 QTc 0.43 See Clinical Report link for waveform capture us Unknown Provider POINT OF CARE CARDIOLOGY Final Result [facility] [address] [place] [address] * GLUCOSE METER POC (07/16/2025 6:21 AM EST) Glucose Meter POC 90 70 - 100 mg/dL 07/16/2025 6:22 AM EST [facility] Sample Type Capillary 07/16/2025 6:22 AM EST [facility] Patient Status Non-Critical Patient 07/16/2025 6:22 AM EST [facility] Blood BLOOD SPECIMEN / Unknown 07/16/2025 6:21 AM EST 07/16/2025 6:22 AM EST Zackery Villegas MD POINT OF CARE TEST ORDERAB LES Final Result Performing Organization Address [facility] de Phone Number [facility] [address] [place] [address] * MAGNESIUM LEVEL (07/16/2025 5:25 AM EST) Pathologist [facility] Magnesium 1.9 1.6 - 2.4 mg/dL 07/16/2025 8:25 AM EST [facility] Blood VENOUS BLOOD / Unknown Venipuncture / Unknown 07/16/2025 5:25 AM EST 07/16/2025 5:55 AM EST us Zackery Villegas MD CHEMISTRY ORDERABLES Final Result Performing Organization Address [facility] de Phone Number [facility] [address] [place] [address] * PHOSPHORUS LEVEL (07/16/2025 5:25 AM EST) Pathologist [facility] Phosphorus 4.0 2.5 - 4.5 mg/dL 07/16/2025 8:25 AM EST [facility] Blood VENOUS BLOOD / Unknown Venipuncture / Unknown 07/16/2025 5:25 AM EST 07/16/2025 5:55 AM EST us Zackery Villegas MD CHEMISTRY ORDERABLES Final Result Performing Organization Address [facility] de Phone Number [facility] [address] [place] [address] * (ABNORMAL) BASIC METABOLIC PANEL (07/16/2025 5:25 AM EST) Pathologist [facility] Sodium 141 136 - 145 mmol/L 07/16/2025 6:16 AM EST [facility] Potassium 4.6 3.5 - 5.0 mmol/L 07/16/2025 6:16 AM EST [facility] Chloride 106 98 - 107 mmol/L 07/16/2025 6:16 AM EST [facility] Total CO2 32(H) 22 - 29 mmol/L 07/16/2025 6:16 AM EST [facility] Anion Gap 3(L) 7 - 16 mmol/L 07/16/2025 6:16 AM EST [facility] Calcium 8.5(L) 8.6 - 10.4 mg/dL 07/16/2025 6:16 AM EST [facility] Glucose Lvl 102(H) 70 - 99 mg/dL 07/16/2025 6:16 AM EST [facility] BUN 19 6 - 20 mg/dL 07/16/2025 6:16 AM EST [facility] Creatinine 0.81 0.51 - 1.30 mg/dL 07/16/2025 6:16 AM EST [facility] eGFR (CKD-EPIcr 2020) 92 >=60 mL/min/1.7 3 m2 07/16/2025 6:16 AM EST [facility] Comment:Estimated GFR was ca lculated using the CKD-EPIcr (2020) equation refit without race. The equation is recommended by the [employer] - [place] [employer]ph[employer] Task Force. Blood VENOUS BLOOD / Unknown Venipuncture / Unknown 07/16/2025 5:25 AM EST 07/16/2025 5:55 AM EST us Abelino Calderon MD CHEMISTRY ORDERABLES Final Re sult [facility] [address] [place] [address] * GLUCOSE METER POC (07/16/2025 12:02 AM EST) Glucose Meter POC 94 70 - 100 mg/dL 07/16/2025 12:04 AM EST [facility] Sample Type Capillary 07/16/2025 12:04 AM EST [facility] Patient Status Non-Critical Patient 07/16/2025 12:04 AM EST [facility] Blood BLOOD SPECIMEN / Unknown 07/16/2025 12:02 AM EST 07/16/2025 12:04 AM EST us Zackery Villegas MD POINT OF CARE TEST ORDERAB LES Final Result [facility] [address] [place] [address] * ECG AND WAVEFORMS - TELEMETRY (07/15/2025 7:22 PM EST) ECG INTERPRET NSR [facility] 07/15/2025 7:22 PM EST Narrative [facility] - 07/15/2025 7:35 PM EST ROUTINE/ RG WA 0.18 QRS 0.08 RR 0.81 QT 0.35 QTc 0.39 See Clinical Report link for waveform capture us Unknown Provider POINT OF CARE CARDIOLOGY Final Result Performing Organization Address City/[facility]/ZIP Co de Phone Number [facility] [address] [place] [address] * GLUCOSE METER POC (07/15/2025 6:48 PM EST) Glucose Meter POC 73 70 - 100 mg/dL 07/15/2025 6:49 PM EST [facility] Sample Type Capillary 07/15/2025 6:49 PM EST [facility] Patient Status Non-Critical Patient 07/15/2025 6:49 PM EST [facility] Blood BLOOD SPECIMEN / Unknown 07/15/2025 6:48 PM EST 07/15/2025 6:49 PM EST us Zackery Villegas MD POINT OF CARE TEST ORDERAB LES Final Result [facility] [address] [place] [address] * (ABNORMAL) GLUCOSE METER POC (07/15/2025 12:25 PM EST) Glucose Meter POC 102(H) 70 - 100 mg/dL 07/15/2025 12:26 PM EST [facility] Sample Type Capillary 07/15/2025 12:26 PM EST [facility] Patient Status Non-Critical Patient 07/15/2025 12:26 PM EST [facility] Blood BLOOD SPECIMEN / Unknown 07/15/2025 12:25 PM EST 07/15/2025 12:26 PM EST us Zackery Villegas MD POINT OF CARE TEST ORDERAB LES Final Result Performing Organization Address [facility] Co de Phone Number [facility] [address] [place] [address] * ECG AND WAVEFORMS - TELEMETRY (07/15/2025 7:38 AM EST) Pathologist [facility] ECG INTERPRET NSR [facility] 07/15/2025 7:38 AM EST Narrative [facility] - 07/15/2025 7:47 AM EST DT/ROUTINE WA 0.19 QRS 0.07 RR 0.76 QT 0.37 QTc 0.43 See Clinical Report link for waveform capture us Unknown Provider POINT OF CARE CARDIOLOGY Final Result Performing Organization Address [facility] Co de Phone Number [facility] [address] [place] [address] * PHOSPHORUS LEVEL (07/15/2025 6:39 AM EST) [facility] Phosphorus 4.5 2.5 - 4.5 mg/dL 07/15/2025 7:34 AM EST [facility] Blood VENOUS BLOOD / Unknown Venipuncture / Unknown 07/15/2025 6:39 AM EST 07/15/2025 7:05 AM EST us Abelino Calderon MD CHEMISTRY ORDERABLES Final Re sult Performing Organization Address City/[facility] Co de Phone Number [facility] [address] [place] [address] * (ABNORMAL) BASIC METABOLIC PANEL (07/15/2025 6:39 AM EST) [facility] Sodium 141 136 - 145 mmol/L 07/15/2025 7:34 AM EST [facility] Potassium 4.6 3.5 - 5.0 mmol/L 07/15/2025 7:34 AM EST [facility] Chloride 106 98 - 107 mmol/L 07/15/2025 7:34 AM EST [facility] Total CO2 32(H) 22 - 29 mmol/L 07/15/2025 7:34 AM [facility] Anion Gap 3(L) 7 - 16 mmol/L 07/15/2025 7:34 AM EST [facility] Calcium 8.8 8.6 - 10.4 mg/dL 07/15/2025 7:34 AM [facility] Glucose Lvl 98 70 - 99 mg/dL 07/15/2025 7:34 AM [facility] BUN 16 6 - 20 mg/dL 07/15/2025 7:34 AM [facility] Creatinine 0.66 0.51 - 1.30 mg/dL 07/15/2025 7:34 AM [facility] eGFR (CKD-EPIcr 2020) 112 >=60 mL/min/1.7 3 m2 07/15/2025 7:34 AM [facility] Comment:Estimated GFR was ca lculated using the CKD-EPIcr (2020) equation refit without race. The equation is recommended by the [employer] - [employer] [employer] Task Force. Blood VENOUS BLOOD / Unknown Venipuncture / Unknown 07/15/2025 6:39 AM EST 07/15/2025 7:05 AM EST us Abelino Calderon MD CHEMISTRY ORDERABLES Final Re sult [facility] [address] [place] [id number] * (ABNORMAL) GLUCOSE METER POC (07/15/2025 1:05 AM EST) Glucose Meter POC 101(H) 70 - 100 mg/dL 07/15/2025 1:07 AM EST [facility] Sample Type Capillary 07/15/2025 1:07 AM [facility] Patient Status Non-Critical Patient 07/15/2025 1:07 AM [facility] Blood BLOOD SPECIMEN / Unknown 07/15/2025 1:05 AM EST 07/15/2025 1:07 AM EST us Zackery Villegas MD POINT OF CARE TEST ORDERAB LES Final Result [facility] [address] [place] [address] * ECG AND WAVEFORMS - TELEMETRY (07/14/2025 7:21 PM EST) ECG INTERPRET NSR [facility] 07/14/2025 7:21 PM EST Narrative [facility] - 07/14/2025 7:28 PM EST ROUTINE/AJ WA 0.13 QRS 0.09 RR 0.73 QT 0.37 QTc 0.43 See Clinical Report link for waveform capture us Unknown Provider POINT OF CARE CARDIOLOGY Final Result Performing Organization Address City/[facility]/ZIP Co de Phone Number [facility] [address] [place] [address] * GLUCOSE METER POC (07/14/2025 6:56 PM EST) Glucose Meter POC 79 70 - 100 mg/dL 07/14/2025 6:58 PM EST [facility] Sample Type Capillary 07/14/2025 6:58 PM EST [facility] Patient Status Non-Critical Patient 07/14/2025 6:58 PM EST [facility] Blood BLOOD SPECIMEN / Unknown 07/14/2025 6:56 PM EST 07/14/2025 6:58 PM EST us Zackery Villegas MD POINT OF CARE TEST ORDERAB LES Final Result [facility] [address] [place] [address] * GLUCOSE METER POC (07/14/2025 3:16 PM EST) Glucose Meter POC 74 70 - 100 mg/dL 07/14/2025 3:18 PM EST [facility] Sample Type Capillary 07/14/2025 3:18 PM EST [facility] Patient Status Non-Critical Patient 07/14/2025 3:18 PM EST [facility] Blood BLOOD SPECIMEN / Unknown 07/14/2025 3:16 PM EST 07/14/2025 3:18 PM EST Zackery Villegas MD POINT OF CARE TEST ORDERAB LES Final Result [facility] [address] [place] [address] * [facility] UPPER EXTREMITY VENOUS RIGHT (07/14/2025 12:24 PM EST) Anatomical Region Laterality Modality Vascular, Arm Vascular Imaging 07/14/2025 12:1 2 PM EST Impressions 07/14/2025 4:16 PM EST Conclusions * Unable to visualize deep/superficial veins at zone 4-5 due to PICC line dressing placement. Unable to determine if thrombosis is present. * The remaining deep veins of the right upper extremity are widely patent and compressible. * The remaining right basilic and cephalic veins are compressible throughout. * The contralateral left subclavian vein is widely patent and compressible. Narrative Procedure Note Vinod Brock MD - 07/14/2025 IMPRESSION Conclusions * Unable to visualize deep/superficial veins at zone 4-5 due to PICCline dressing placement. Unable to determine if thrombosis is present. * The remaining deep veins of the right upper extremity are widelypatent and compressible. * The remaining right basilic and cephalic veins are compressible throughout. * The contralateral left subclavian vein is widely patent andcompressible. Abelino Calderon MD IMG VASCULAR ORDERABLES Final Result * [facility] LOWER EXTREMITY VENOUS BILATERAL (07/14/2025 12:24 PM EST) Anatomical Region Laterality Modality Vascular, Leg Vascular Imaging 07/14/2025 11:5 9 AM EST Impressions 07/14/2025 3:59 PM EST Conclusions * No evidence of deep vein thrombosis identified in the bilateral lower extremities. * No evidence of superficial thrombosis identified in the bilateral lower extremities. Narrative Procedure Note Vinod Brock MD - 07/14/2025 IMPRESSION Conclusions * No evidence of deep vein thrombosis identified in the bilaterallower extremities. * No evidence of superficial thrombosis identified in the bilaterallower extremities. us Abelino Calderon MD IMG VASCULAR ORDERABLES Final Result * ECG AND WAVEFORMS - TELEMETRY (07/14/2025 8:08 AM EST) ECG INTERPRET NSR [facility] 07/14/2025 8:08 AM EST Narrative [facility] - 07/14/2025 8:17 AM EST DT/ROUTINE WA 0.15 QRS 0.10 RR 0.94 QT 0.42 QTc 0.43 See Clinical Report link for waveform capture us Unknown Provider POINT OF CARE CARDIOLOGY Final Result [facility] [address] [place] [address] * GLUCOSE METER POC (07/14/2025 6:13 AM EST) Glucose Meter POC 98 70 - 100 mg/dL 07/14/2025 6:15 AM EST [facility] Sample Type Capillary 07/14/2025 6:15 AM EST [facility] Patient Status Non-Critical Patient 07/14/2025 6:15 AM EST [facility] Blood BLOOD SPECIMEN / Unknown 07/14/2025 6:13 AM EST 07/14/2025 6:15 AM EST us Zackery Villegas MD POINT OF CARE TEST ORDERAB LES Final Result [facility] [address] [place] [address] * (ABNORMAL) GLUCOSE METER POC (07/14/2025 12:12 AM EST) Glucose Meter POC 113(H) 70 - 100 mg/dL 07/14/2025 12:14 AM EST [facility] Sample Type Capillary 07/14/2025 12:14 AM EST [facility] Patient Status Non-Critical Patient 07/14/2025 12:14 AM EST [facility] Blood BLOOD SPECIMEN / Unknown 07/14/2025 12:12 AM EST 07/14/2025 12:14 AM EST us Zackery Villegas MD POINT OF CARE TEST ORDERAB LES Final Result [facility] [address] [place] [address] * ECG AND WAVEFORMS - TELEMETRY (07/13/2025 9:28 PM EST) ECG INTERPRET NSR [facility] 07/13/2025 9:28 PM EST Narrative [facility] - 07/13/2025 9:38 PM EST ROUTINE (CB) WA 0.16 QRS 0.07 RR 0.80 QT 0.37 QTc 0.41 See Clinical Report link for waveform capture us Unknown Provider POINT OF CARE CARDIOLOGY Final Result Performing Organization Address City/[facility]/ZIP Co de Phone Number [facility] [address] [place] [address] * GLUCOSE METER POC (07/13/2025 6:03 PM EST) Glucose Meter POC 80 70 - 100 mg/dL 07/13/2025 6:04 PM EST [facility] Sample Type Capillary 07/13/2025 6:04 PM EST [facility] Patient Status Non-Critical Patient 07/13/2025 6:04 PM EST [facility] Blood BLOOD SPECIMEN / Unknown 07/13/2025 6:03 PM EST 07/13/2025 6:04 PM EST us Zackery Villegas MD POINT OF CARE TEST ORDERAB LES Final Result Performing Organization Address City/[facility]/ZIP Co de Phone Number [facility] [address] [place] [address] * GLUCOSE METER POC (07/13/2025 12:00 PM EST) Glucose Meter POC 86 70 - 100 mg/dL 07/13/2025 12:01 PM EST [facility] Sample Type Capillary 07/13/2025 12:01 PM EST [facility] Patient Status Non-Critical Patient 07/13/2025 12:01 PM EST [facility] Blood BLOOD SPECIMEN / Unknown 07/13/2025 12:00 PM EST 07/13/2025 12:01 PM EST us Zackery Villegas MD POINT OF CARE TEST ORDERAB LES Final Result [facility] [address] [place] [address] * ECG AND WAVEFORMS - TELEMETRY (07/13/2025 7:52 AM EST) ECG INTERPRET NSR [facility] 07/13/2025 7:52 AM EST Narrative [facility] - 07/13/2025 7:53 AM EST ROUTINE/PB WA 0.12 QRS 0.08 RR 0.95 QT 0.35 QTc 0.36 See Clinical Report link for waveform capture us Unknown Provider POINT OF CARE CARDIOLOGY Final Result [facility] [address] [place] [address] * (ABNORMAL) GLUCOSE METER POC (07/13/2025 6:37 AM EST) Glucose Meter POC 106(H) 70 - 100 mg/dL 07/13/2025 6:39 AM EST [facility] Sample Type Capillary 07/13/2025 6:39 AM EST [facility] Patient Status Non-Critical Patient 07/13/2025 6:39 AM EST [facility] Blood BLOOD SPECIMEN / Unknown 07/13/2025 6:37 AM EST 07/13/2025 6:39 AM EST Zackery Villegas MD POINT OF CARE TEST ORDERAB LES Final Result Performing Organization Address [facility] de Phone Number [facility] [address] [place] [address] * MAGNESIUM LEVEL (07/13/2025 6:03 AM EST) Magnesium 1.8 1.6 - 2.4 mg/dL 07/13/2025 6:53 AM EST [facility] Blood VENOUS BLOOD / Unknown Venipuncture / Unknown 07/13/2025 6:03 AM EST 07/13/2025 6:27 AM EST Stephaine Adamson [employer] CHEMISTRY ORDERABLES Fi nal Result Performing Organization Address [facility] Phone Number [facility] [address] [place] [address] * (ABNORMAL) PHOSPHORUS LEVEL (07/13/2025 6:03 AM EST) Phosphorus 4.6(H) 2.5 - 4.5 mg/dL 07/13/2025 6:53 AM EST [facility] Blood VENOUS BLOOD / Unknown Venipuncture / Unknown 07/13/2025 6:03 AM EST 07/13/2025 6:27 AM EST Stephanie Adamson [employer] CHEMISTRY ORDERABLES Fi nal Result Performing Organization Address [facility] de Phone Number [facility] [address] [place] [address] * (ABNORMAL) BASIC METABOLIC PANEL (07/13/2025 6:03 AM EST) Sodium 141 136 - 145 mmol/L 07/13/2025 6:53 AM EST [facility] Potassium 4.2 3.5 - 5.0 mmol/L 07/13/2025 6:53 AM EST [facility] Chloride 107 98 - 107 mmol/L 07/13/2025 6:53 AM EST [facility] Total CO2 30(H) 22 - 29 mmol/L 07/13/2025 6:53 AM EST [facility] Anion Gap 4(L) 7 - 16 mmol/L 07/13/2025 6:53 AM EST [facility] Calcium 8.9 8.6 - 10.4 mg/dL 07/13/2025 6:53 AM [facility] Glucose Lvl 82 70 - 99 mg/dL 07/13/2025 6:53 AM EST [facility] BUN 19 6 - 20 mg/dL 07/13/2025 6:53 AM [facility] Creatinine 0.75 0.51 - 1.30 mg/dL 07/13/2025 6:53 AM [facility] eGFR (CKD-EPIcr 2020) 101 >=60 mL/min/1.7 3 m2 07/13/2025 6:53 AM [facility] Comment:Estimated GFR was ca lculated using the CKD-EPIcr (2020) equation refit without race. The equation is recommended by the [employer] - [place] [employer] Neph[employer] Task Force. Blood VENOUS BLOOD / Unknown Venipuncture / Unknown 07/13/2025 6:03 AM EST 07/13/2025 6:27 AM EST Stephanie Adamson [employer] CHEMISTRY ORDERABLES Fi nal Result [facility] [address] [place] [id number] * (ABNORMAL) GLUCOSE METER POC (07/12/2025 11:49 PM EST) [facility] Glucose Meter POC 112(H) 70 - 100 mg/dL 07/12/2025 11:50 PM EST [facility] Sample Type Capillary 07/12/2025 11:50 PM EST [facility] Patient Status Non-Critical Patient 07/12/2025 11:50 PM EST [facility] Blood BLOOD SPECIMEN / Unknown 07/12/2025 11:49 PM EST 07/12/2025 11:50 PM EST us Zackery Villegas MD POINT OF CARE TEST ORDERAB LES Final Result Performing Organization Address City/[facility]/ZIP Co de Phone Number [facility] [address] [place] [address] * ECG AND WAVEFORMS - TELEMETRY (07/12/2025 8:13 PM EST) ECG INTERPRET NSR [facility] 07/12/2025 8:13 PM EST Narrative [facility] - 07/12/2025 8:15 PM EST TW/ROUTINE WA 0.10 QRS 0.11 RR 0.68 QT 0.33 See Clinical Report link for waveform capture us Unknown Provider POINT OF CARE CARDIOLOGY Final Result Performing Organization Address [facility] Co de Phone Number [facility] [address] [place] [address] * GLUCOSE METER POC (07/12/2025 11:49 AM EST) Glucose Meter POC 76 70 - 100 mg/dL 07/12/2025 11:51 AM EST [facility] Sample Type Capillary 07/12/2025 11:51 AM EST [facility] Patient Status Non-Critical Patient 07/12/2025 11:51 AM EST [facility] Blood BLOOD SPECIMEN / Unknown 07/12/2025 11:49 AM EST 07/12/2025 11:51 AM EST us Zackery Villegas MD POINT OF CARE TEST ORDERAB LES Final Result Performing Organization Address City/[facility]/ZIP Co de Phone Number [facility] [address] [place] [address] * ECG AND WAVEFORMS - TELEMETRY (07/12/2025 7:35 AM EST) ECG INTERPRET Sinus Bradycardia [facility] 07/12/2025 7:35 AM EST Narrative [facility] - 07/12/2025 7:54 AM EST [place] ROUTINE WA 0.16 QRS 0.08 RR 1.06 QT 0.38 See Clinical Report link for waveform capture us Unknown Provider POINT OF CARE CARDIOLOGY Final Result [facility] [address] [place] [address] * GLUCOSE METER POC (07/12/2025 5:23 AM EST) Glucose Meter POC 78 70 - 100 mg/dL 07/12/2025 5:24 AM EST [facility] Sample Type Capillary 07/12/2025 5:24 AM EST [facility] Patient Status Non-Critical Patient 07/12/2025 5:24 AM EST [facility] Blood BLOOD SPECIMEN / Unknown 07/12/2025 5:23 AM EST 07/12/2025 5:24 AM EST us Zackery Villegas MD POINT OF CARE TEST ORDERAB LES Final Result Performing Organization Address City/[facility]/ZIP Co de Phone Number [facility] [address] [place] [address] * GLUCOSE METER POC (07/11/2025 11:55 PM EST) Glucose Meter POC 84 70 - 100 mg/dL 07/12/2025 2:08 AM EST [facility] Sample Type Capillary 07/12/2025 2:08 AM EST [facility] Patient Status Non-Critical Patient 07/12/2025 2:08 AM EST [facility] Blood BLOOD SPECIMEN / Unknown 07/11/2025 11:55 PM EST 07/12/2025 2:08 AM EST us Zackery Villegas MD POINT OF CARE TEST ORDERAB LES Final Result Performing Organization Address City/[facility] Co de Phone Number [facility] [address] [place] [address] * ECG AND WAVEFORMS - TELEMETRY (07/11/2025 9:00 PM EST) ECG INTERPRET NSR [facility] 07/11/2025 9:00 PM EST Narrative [facility] - 07/11/2025 9:03 PM EST TW/ROUTINE WA 0.10 QRS 0.10 RR 0.89 QT 0.38 See Clinical Report link for waveform capture us Unknown Provider POINT OF CARE CARDIOLOGY Final Result Performing Organization Address City/[facility]/ZIP Co de Phone Number [facility] [address] [place] [address] * GLUCOSE METER POC (07/11/2025 5:56 PM EST) Glucose Meter POC 77 70 - 100 mg/dL 07/11/2025 5:57 PM EST [facility] Sample Type Capillary 07/11/2025 5:57 PM EST [facility] Patient Status Non-Critical Patient 07/11/2025 5:57 PM EST [facility] Blood BLOOD SPECIMEN / Unknown 07/11/2025 5:56 PM EST 07/11/2025 5:57 PM EST us Zackery Villegas MD POINT OF CARE TEST ORDERAB LES Final Result Performing Organization Address City/[facility]/ZIP Co de Phone Number [facility] [address] [place] [phone] * ECG AND WAVEFORMS - TELEMETRY (07/11/2025 2:30 PM EST) ECG INTERPRET NSR [facility] 07/11/2025 2:30 PM EST Narrative [facility] - 07/11/2025 2:31 PM EST [place] ROUTINE WA 0.16 QRS 0.09 RR 0.61 QT 0.33 See Clinical Report link for waveform capture us Unknown Provider POINT OF CARE CARDIOLOGY Final Result Performing Organization Address City/[facility]/ZIP Co de Phone Number [facility] [address] [place] [address] * (ABNORMAL) GLUCOSE METER POC (07/11/2025 1:03 PM EST) Glucose Meter POC 102(H) 70 - 100 mg/dL 07/11/2025 1:04 PM EST [facility] Sample Type Capillary 07/11/2025 1:04 PM EST [facility] Patient Status Non-Critical Patient 07/11/2025 1:04 PM EST [facility] Blood BLOOD SPECIMEN / Unknown 07/11/2025 1:03 PM EST 07/11/2025 1:04 PM EST us Zackery Villegas MD POINT OF CARE TEST ORDERAB LES Final Result Performing Organization Address City/[facility]/ZIP Co de Phone Number [facility] [address] [place] [address] * GLUCOSE METER POC (07/11/2025 11:58 AM EST) Glucose Meter POC 99 70 - 100 mg/dL 07/11/2025 12:00 PM EST [facility] Sample Type Capillary 07/11/2025 12:00 PM EST [facility] Patient Status Non-Critical Patient 07/11/2025 12:00 PM EST [facility] Blood BLOOD SPECIMEN / Unknown 07/11/2025 11:58 AM EST 07/11/2025 12:00 PM EST us Zackery Villegas MD POINT OF CARE TEST ORDERAB LES Final Result Performing Organization Address City/[facility]/ZIP Co de Phone Number [facility] [address] [place] [address] * GLUCOSE METER POC (07/11/2025 7:04 AM EST) Glucose Meter POC 93 70 - 100 mg/dL 07/11/2025 7:06 AM EST [facility] Sample Type Capillary 07/11/2025 7:06 AM EST [facility] Patient Status Non-Critical Patient 07/11/2025 7:06 AM EST [facility] Blood BLOOD SPECIMEN / Unknown 07/11/2025 7:04 AM EST 07/11/2025 7:06 AM EST us Zackery Villegas MD POINT OF CARE TEST ORDERAB LES Final Result Performing Organization Address City/[facility]/ZIP Co de Phone Number [facility] [address] [place] [address] * GLUCOSE METER POC (07/10/2025 11:18 PM EST) Glucose Meter POC 96 70 - 100 mg/dL 07/10/2025 11:20 PM EST [facility] Sample Type Capillary 07/10/2025 11:20 PM EST [facility] Patient Status Non-Critical Patient 07/10/2025 11:20 PM EST [facility] Blood BLOOD SPECIMEN / Unknown 07/10/2025 11:18 PM EST 07/10/2025 11:20 PM EST us Zackery Villegas MD POINT OF CARE TEST ORDERAB LES Final Result Performing Organization Address [facility] Co de Phone Number [facility] [address] [place] [address] * GLUCOSE METER POC (07/10/2025 5:38 PM EST) Glucose Meter POC 91 70 - 100 mg/dL 07/10/2025 5:40 PM EST [facility] Sample Type Capillary 07/10/2025 5:40 PM EST [facility] Patient Status Non-Critical Patient 07/10/2025 5:40 PM EST [facility] Blood BLOOD SPECIMEN / Unknown 07/10/2025 5:38 PM EST 07/10/2025 5:40 PM EST us Zackery Villegas MD POINT OF CARE TEST ORDERAB LES Final Result Performing Organization Address City/[facility] Co de Phone Number [facility] [address] [place] [address] * GLUCOSE METER POC (07/10/2025 12:27 PM EST) Glucose Meter POC 83 70 - 100 mg/dL 07/10/2025 12:29 PM EST [facility] Sample Type Capillary 07/10/2025 12:29 PM EST [facility] Patient Status Non-Critical Patient 07/10/2025 12:29 PM EST [facility] Blood BLOOD SPECIMEN / Unknown 07/10/2025 12:27 PM EST 07/10/2025 12:29 PM EST Zackery Villegas MD POINT OF CARE TEST ORDERAB LES Final Result [facility] [address] [place] [address] * [facility] LOWER EXTREMITY VENOUS LEFT (07/10/2025 8:10 AM EST) Anatomical Region Laterality Modality Vascular, Thigh, Leg Vascular Im aging 07/10/2025 7:54 AM EST Impressions 07/10/2025 8:27 AM EST Conclusions * No evidence of deep vein thrombosis identified in the left lower extremity. * The left peroneal veins are not well visualized secondary to edema and vessel depth. Cannot exclude isolated cases of deep vein thrombosis in the veins that are not well visualized. * No evidence of superficial vein thrombosis identified in the left lower extremity. * No evidence of thrombosis is noted in the contralateral right common femoral vein. Narrative Procedure Note Jose Carlson MD - 07/10/2025 IMPRESSION Conclusions * No evidence of deep vein thrombosis identified in the left lower extremity. * The left peroneal veins are not well visualized secondary to edemaand vessel depth. Cannot exclude isolated cases of deep vein thrombosis inthe veins that are not well visualized. * No evidence of superficial vein thrombosis identified in the leftlower extremity. * No evidence of thrombosis is noted in the contralateral right common femoral vein. Kathy Geronimo APRN IMG VASCULAR ORDERABLES Final Result * [facility] UPPER EXTREMITY VENOUS RIGHT (07/10/2025 8:10 AM EST) Anatomical Region Laterality Modality Vascular, Arm Vascular Imaging 07/10/2025 7:33 AM EST Impressions 07/10/2025 10:31 AM EST Conclusions * No evidence of right upper extremity deep vein thrombosis. * Evidence of acute partially-occlusive superficial vein thrombosis of the basilic vein in zones 1 to 5. * No evidence of superficial thrombophlebitis detected in the right cephalic vein. * The contralateral left subclavian vein is widely patent and compressible. Narrative Procedure Note Jose Carlson MD - 07/10/2025 IMPRESSION Conclusions * No evidence of right upper extremity deep vein thrombosis. * Evidence of acute partially-occlusive superficial vein thrombosis ofthe basilic vein in zones 1 to 5. * No evidence of superficial thrombophlebitis detected in the rightcephalic vein. * The contralateral left subclavian vein is widely patent andcompressible. Bradford Sauceda MD IMG VASCULAR ORDERABLES Final Re sult * (ABNORMAL) PREALBUMIN (07/10/2025 6:10 AM EST) Prealbumin 10.4(L) 20.0 - 40.0 mg/dL 07/10/2025 2:20 PM EST [employer] 360 Blood VENOUS BLOOD / Unknown Venipuncture / Unknown 07/10/2025 6:10 AM EST 07/10/2025 6:14 AM EST Stephanie Adamson [employer] CHEMISTRY ORDERABLES nal Result [email or web address] [address] [place] [address] , [place] [address] * TRIGLYCERIDES (07/10/2025 6:10 AM EST) Triglyceride 73 <150 mg/dL 07/10/2025 9:45 AM EST [email or web address] Comment: < 150 Normal 150 - 199 Borderline High 200 - 499 High >= 500 Very High Blood VENOUS BLOOD / Unknown Venipuncture / Unknown 07/10/2025 6:10 AM EST 07/10/2025 6:15 AM EST Stephanie Adamson [employer] CHEMISTRY ORDERABLES Fi nal Result Performing Organization Address City/[facility]/ZIP Co de Phone Number [facility] [employer], [address], [place] [address] * PARTIAL THROMBOPLASTIN TIME (07/10/2025 6:10 AM EST) PTT 33.3 25.7 - 36.8 second(s) 07/10/2025 6:29 AM EST [facility] Comment: Therapeutic range for unfractionated heparin: 50.1 - 98.7 seconds Therapeutic range for direct thrombin inhibitors: Argatroban is 1.5 to 3 times the aPTT baseline. Lepirudin is 1.5 to 2 times the aPTT baseline. The aPTT should not exceed 100 seconds. The dosage of Argatroban should be decreased in patients with hepatic impairment. The dosage of Lepirudin should be decreased in renal insufficiency. Blood VENOUS BLOOD / Unknown Venipuncture / Unknown 07/10/2025 6:10 AM EST 07/10/2025 6:15 AM EST Stephanie Adamson APRN HEMATOLOGY ORDERABLES F inal Result Performing Organization Address [facility] Co de Phone Number [facility] [address] [phone] * PT / INR (07/10/2025 6:10 AM EST) PT 12.5 10.5 - 13.6 second(s) 07/10/2025 6:29 AM EST [facility] INR 1.09 0.91 - 1.18 (ratio) 07/10/2025 6:29 AM EST [facility] Comment: Level of Therapy Indications Target INR Range Standard Dose Treatment and prophylaxis of venous 2.0 - 3.0 thrombosis, pulmonary embolism High Dose High risk patients with mechanical 2.5 - 3.5 heart valves Blood VENOUS BLOOD / Unknown Venipuncture / Unknown 07/10/2025 6:10 AM EST 07/10/2025 6:15 AM EST us Stephanie Adamson [employer] HEMATOLOGY ORDERABLES F inal Result Performing Organization Address [facility] de Phone Number [facility] [address] [place] [address] * MAGNESIUM LEVEL (07/10/2025 6:10 AM EST) Magnesium 1.8 1.6 - 2.4 mg/dL 07/10/2025 6:37 AM EST [facility] Blood VENOUS BLOOD / Unknown Venipuncture / Unknown 07/10/2025 6:10 AM EST 07/10/2025 6:14 AM EST us Stephanie Adamson [employer] CHEMISTRY ORDERABLES Fi nal Result Performing Organization Address [facility] de Phone Number [facility] [address] [place] [address] * PHOSPHORUS LEVEL (07/10/2025 6:10 AM EST) Phosphorus 4.1 2.5 - 4.5 mg/dL 07/10/2025 6:37 AM EST [facility] Blood VENOUS BLOOD / Unknown Venipuncture / Unknown 07/10/2025 6:10 AM EST 07/10/2025 6:14 AM EST us Stephanie Adamson [employer] CHEMISTRY ORDERABLES Fi nal Result Performing Organization Address [facility] de Phone Number [facility] [address] [place] [address] * (ABNORMAL) HEPATIC FUNCTION PANEL (07/10/2025 6:10 AM EST) Total Protein 6.1(L) 6.4 - 8.3 gm/dL 07/10/2025 6:37 AM EST [facility] Albumin 3.2(L) 3.5 - 5.2 gm/dL 07/10/2025 6:37 AM EST [facility] Bili Direct <0.2 0.0 - 0.3 mg/dL 07/10/2025 6:37 AM EST [facility] Bili Total <0.2(L) 0.2 - 1.3 mg/dL 07/10/2025 6:37 AM EST [facility] AST 16 <=40 U/L 07/10/2025 6:37 AM EST [facility] ALT 9 <=41 U/L 07/10/2025 6:37 AM EST [facility] Alk Phos 132(H) 36 - 123 U/L 07/10/2025 6:37 AM EST [facility] Blood VENOUS BLOOD / Unknown Venipuncture / Unknown 07/10/2025 6:10 AM EST 07/10/2025 6:14 AM EST us Stephanie Adamson [employer] CHEMISTRY ORDERABLES Fi nal Result [facility] [address] [phone] * (ABNORMAL) CBC (07/10/2025 6:10 AM EST) WBC 6.8 3.7 - 10.3 x10(3)/mcL 07/10/2025 6:18 AM EST [facility] RBC 3.38(L) 3.90 - 5.20 x10(6)/mcL 07/10/2025 6:18 AM EST [facility] Hgb 9.9(L) 11.2 - 15.7 g/dL 07/10/2025 6:18 AM EST [facility] Hct 30.9(L) 34.0 - 45.0 % 07/10/2025 6:18 AM EST [facility] MCV 91.4 80.0 - 100.0 fL 07/10/2025 6:18 AM EST [facility] MCH 29.3 26.0 - 34.0 pg 07/10/2025 6:18 AM EST [facility] MCHC 32.0 30.7 - 35.5 g/dL 07/10/2025 6:18 AM EST [facility] RDW 13.4 <=14.9 % 07/10/2025 6:18 AM EST [facility] Platelet 219 155 - 369 x10(3)/mcL 07/10/2025 6:18 AM EST [facility] MPV 9.3 8.8 - 12.5 fL 07/10/2025 6:18 AM EST [facility] Blood VENOUS BLOOD / Unknown Venipuncture / Unknown 07/10/2025 6:10 AM EST 07/10/2025 6:15 AM EST us Stephanie Proan Juan [place] [employer] HEMATOLOGY ORDERABLES F inal Result [facility] [address] [place] [address] * (ABNORMAL) BASIC METABOLIC PANEL (07/10/2025 6:10 AM EST) Sodium 139 136 - 145 mmol/L 07/10/2025 6:37 AM [facility] Potassium 4.4 3.5 - 5.0 mmol/L 07/10/2025 6:37 AM [facility] Chloride 107 98 - 107 mmol/L 07/10/2025 6:37 AM [facility] Total CO2 24 22 - 29 mmol/L 07/10/2025 6:37 AM [facility] Anion Gap 8 7 - 16 mmol/L 07/10/2025 6:37 AM [facility] Calcium 8.1(L) 8.6 - 10.4 mg/dL 07/10/2025 6:37 AM [facility] Glucose Lvl 126(H) 70 - 99 mg/dL 07/10/2025 6:37 AM [facility] BUN 12 6 - 20 mg/dL 07/10/2025 6:37 AM [facility] Creatinine 0.70 0.51 - 1.30 mg/dL 07/10/2025 6:37 AM [facility] eGFR (CKD-EPIcr 2020) 110 >=60 mL/min/1.7 3 m2 07/10/2025 6:37 AM [facility] Comment:Estimated GFR was ca lculated using the CKD-EPIcr (2020) equation refit without race. The equation is recommended by the [employer] - [place] [employer] Neph[employer] Task Force. Blood VENOUS BLOOD / Unknown Venipuncture / Unknown 07/10/2025 6:10 AM EST 07/10/2025 6:14 AM EST us Stephanie Adamson [employer] CHEMISTRY ORDERABLES Fi nal Result Performing Organization Address City/[facility]/ZIP Co de Phone Number [facility] [address] [place] [address] * (ABNORMAL) GLUCOSE METER POC (07/10/2025 6:00 AM EST) Glucose Meter POC 138(H) 70 - 100 mg/dL 07/10/2025 6:01 AM EST [facility] Sample Type Capillary 07/10/2025 6:01 AM EST [facility] Patient Status Non-Critical Patient 07/10/2025 6:01 AM EST [facility] Blood BLOOD SPECIMEN / Unknown 07/10/2025 6:00 AM EST 07/10/2025 6:01 AM EST us Zackery Villegas MD POINT OF CARE TEST ORDERAB LES Final Result Performing Organization Address [facility] Co de Phone Number [facility] [address] [place] [address] * (ABNORMAL) GLUCOSE METER POC (07/09/2025 11:48 PM EST) Glucose Meter POC 125(H) 70 - 100 mg/dL 07/09/2025 11:50 PM EST [facility] Sample Type Capillary 07/09/2025 11:50 PM EST [facility] Patient Status Non-Critical Patient 07/09/2025 11:50 PM EST [facility] Blood BLOOD SPECIMEN / Unknown 07/09/2025 11:48 PM EST 07/09/2025 11:50 PM EST us Zackery Villegas MD POINT OF CARE TEST ORDERAB LES Final Result [facility] [address] [place] [address] * GLUCOSE METER POC (07/09/2025 6:14 PM EST) Glucose Meter POC 91 70 - 100 mg/dL 07/09/2025 6:16 PM EST [facility] Sample Type Capillary 07/09/2025 6:16 PM EST [facility] Patient Status Non-Critical Patient 07/09/2025 6:16 PM EST [facility] Blood BLOOD SPECIMEN / Unknown 07/09/2025 6:14 PM EST 07/09/2025 6:16 PM EST us Zackrey Villegas MD POINT OF CARE TEST ORDERAB LES Final Result [facility] [address] [place] [address] * XR CHEST PA AND LATERAL (07/09/2025 3:21 PM EST) Anatomical Region Laterality Modality Chest Radiographic Joanne ging 07/09/2025 3:21 PM EST Addenda Addendum by Jaciel Mcbride MD on 07/09/2025 6:00 PM EST Addendum: Right PICC line with tip somewhat obscured although overlying the mid to lower SVC. Impressions 07/09/2025 4:53 PM EST No acute finding. - Note: Radiology results need to be interpreted within a comprehensive clinical context. If you have questions about the radiology report, please contact the office of the ordering clinician. Narrative 07/09/2025 4:53 PM EST PA AND LATERAL CHEST X-RAY, 07/09/2025 3:21 PM CLINICAL HISTORY: -right chest and neck pain COMPARISON: None. PROCEDURE COMMENTS: Frontal and lateral views of the chest. FINDINGS: Heart and mediastinal contours within normal limits for technique. No active failure, pneumonia, or visible effusion. No visible pneumothorax. Procedure Note Jaciel Mcbride MD - 07/09/2025 PA AND LATERAL CHEST X-RAY, 07/09/2025 3:21 PM CLINICAL HISTORY: -right chest and neck pain COMPARISON: None. PROCEDURE COMMENTS: Frontal and lateral views of the chest. FINDINGS: Heart and mediastinal contours within normal limits for technique. Noactive failure, pneumonia, or visible effusion. No visible pneumothorax. IMPRESSION: No acute finding. - Note: Radiology results need to be interpreted within a comprehensiveclinical context. If you have questions about the radiology report, please contactthe office of the ordering clinician. Bradford Sauceda MD IMG DIAGNOSTIC IMAGING ORDERABLE S Edited Result - Final * GLUCOSE METER POC (07/09/2025 12:29 PM EST) [facility] Glucose Meter POC 94 70 - 100 mg/dL 07/09/2025 12:31 PM EST [facility] Sample Type Capillary 07/09/2025 12:31 PM EST [facility] Patient Status Non-Critical Patient 07/09/2025 12:31 PM EST [facility] Blood BLOOD SPECIMEN / Unknown 07/09/2025 12:29 PM EST 07/09/2025 12:31 PM EST Zackery Villegas MD POINT OF CARE TEST ORDERAB LES Final Result Performing Organization Address City/[facility]/ZIP Co de Phone Number [facility] [address] [place] [address] * PHOSPHORUS LEVEL (07/09/2025 6:16 AM EST) [facility] Phosphorus 4.4 2.5 - 4.5 mg/dL 07/09/2025 6:50 AM EST [facility] Blood VENOUS BLOOD / Unknown Venipuncture / Unknown 07/09/2025 6:16 AM EST 07/09/2025 6:22 AM EST Stephanie Adamson [employer] CHEMISTRY ORDERABLES Fi nal Result Performing Organization Address City/[facility]/ZIP Co de Phone Number [facility] [address] [place] [address] * MAGNESIUM LEVEL (07/09/2025 6:16 AM EST) Pathologist [facility] Magnesium 1.9 1.6 - 2.4 mg/dL 07/09/2025 6:50 AM EST [facility] Blood VENOUS BLOOD / Unknown Venipuncture / Unknown 07/09/2025 6:16 AM EST 07/09/2025 6:22 AM EST us Stephanie Adamson [employer] CHEMISTRY ORDERABLES Fi nal Result [facility] [address] [place] [address] * (ABNORMAL) BASIC METABOLIC PANEL (07/09/2025 6:16 AM EST) Pathologist [facility] Sodium 141 136 - 145 mmol/L 07/09/2025 6:50 AM EST [facility] Potassium 4.7 3.5 - 5.0 mmol/L 07/09/2025 6:50 AM EST [facility] Chloride 107 98 - 107 mmol/L 07/09/2025 6:50 AM EST [facility] Total CO2 27 22 - 29 mmol/L 07/09/2025 6:50 AM EST [facility] Anion Gap 7 7 - 16 mmol/L 07/09/2025 6:50 AM EST [facility] Calcium 8.4(L) 8.6 - 10.4 mg/dL 07/09/2025 6:50 AM EST [facility] Glucose Lvl 92 70 - 99 mg/dL 07/09/2025 6:50 AM EST [facility] BUN 11 6 - 20 mg/dL 07/09/2025 6:50 AM EST [facility] Creatinine 0.76 0.51 - 1.30 mg/dL 07/09/2025 6:50 AM [facility] eGFR (CKD-EPIcr 2020) 100 >=60 mL/min/1.7 3 m2 07/09/2025 6:50 AM [facility] Comment:Estimated GFR was ca lculated using the CKD-EPIcr (2020) equation refit without race. The equation is recommended by the [employer] - [place] [employer] Neph[employer] Task Force. Blood VENOUS BLOOD / Unknown Venipuncture / Unknown 07/09/2025 6:16 AM EST 07/09/2025 6:22 AM EST Stephanie Adamson [employer] CHEMISTRY ORDERABLES Fi nal Result [facility] [address] [place] [address] * (ABNORMAL) GLUCOSE METER POC (07/09/2025 6:01 AM EST) Glucose Meter POC 108(H) 70 - 100 mg/dL 07/09/2025 6:02 AM EST [facility] Sample Type Capillary 07/09/2025 6:02 AM EST [facility] Patient Status Non-Critical Patient 07/09/2025 6:02 AM EST [facility] Blood BLOOD SPECIMEN / Unknown 07/09/2025 6:01 AM EST 07/09/2025 6:02 AM EST us Zackery Villegas MD POINT OF CARE TEST ORDERAB LES Final Result Performing Organization Address City/[facility]/ZIP Co de Phone Number [facility] [address] [place] [address] * GLUCOSE METER POC (07/08/2025 11:45 PM EST) Glucose Meter POC 93 70 - 100 mg/dL 07/08/2025 11:47 PM EST [facility] Sample Type Capillary 07/08/2025 11:47 PM EST [facility] Patient Status Non-Critical Patient 07/08/2025 11:47 PM EST [facility] Blood BLOOD SPECIMEN / Unknown 07/08/2025 11:45 PM EST 07/08/2025 11:47 PM EST Zackery Villegas MD POINT OF CARE TEST ORDERAB LES Final Result [facility] [address] [place] [address] * (ABNORMAL) GLUCOSE METER POC (07/08/2025 5:59 PM EST) Glucose Meter POC 114(H) 70 - 100 mg/dL 07/08/2025 6:01 PM EST [facility] Sample Type Capillary 07/08/2025 6:01 PM EST [facility] Patient Status Non-Critical Patient 07/08/2025 6:01 PM EST [facility] Blood BLOOD SPECIMEN / Unknown 07/08/2025 5:59 PM EST 07/08/2025 6:01 PM EST Zackery Villegas MD POINT OF CARE TEST ORDERAB LES Final Result Performing Organization Address City/[facility]/ZIP Co de Phone Number [facility] [address] [place] [address] * (ABNORMAL) GLUCOSE METER POC (07/08/2025 1:45 PM EST) Glucose Meter POC 103(H) 70 - 100 mg/dL 07/08/2025 1:47 PM EST [facility] Sample Type Capillary 07/08/2025 1:47 PM EST [facility] Patient Status Non-Critical Patient 07/08/2025 1:47 PM EST [facility] Blood BLOOD SPECIMEN / Unknown 07/08/2025 1:45 PM EST 07/08/2025 1:47 PM EST us Zackery Villegas MD POINT OF CARE TEST ORDERAB LES Final Result Performing Organization Address City/[facility]/ZIP Co de Phone Number [facility] [address] [place] [address] * GLUCOSE METER POC (07/08/2025 9:02 AM EST) Glucose Meter POC 89 70 - 100 mg/dL 07/08/2025 9:04 AM EST [facility] Sample Type Capillary 07/08/2025 9:04 AM EST [facility] Patient Status Non-Critical Patient 07/08/2025 9:04 AM EST [facility] Blood BLOOD SPECIMEN / Unknown 07/08/2025 9:02 AM EST 07/08/2025 9:04 AM EST us Zackery Villegas MD POINT OF CARE TEST ORDERAB LES Final Result Performing Organization Address [facility] Co de Phone Number [facility] [address] [place] [address] * (ABNORMAL) GLUCOSE METER POC (07/08/2025 6:34 AM EST) Glucose Meter POC 103(H) 70 - 100 mg/dL 07/08/2025 6:36 AM EST [facility] Sample Type Capillary 07/08/2025 6:36 AM EST [facility] Patient Status Non-Critical Patient 07/08/2025 6:36 AM EST [facility] Blood BLOOD SPECIMEN / Unknown 07/08/2025 6:34 AM EST 07/08/2025 6:36 AM EST us Zackery Villegas MD POINT OF CARE TEST ORDERAB LES Final Result Performing Organization Address [facility] de Phone Number [facility] [address] [place] [address] * MAGNESIUM LEVEL (07/08/2025 5:15 AM EST) Pathologist [facility] Magnesium 2.1 1.6 - 2.4 mg/dL 07/08/2025 5:49 AM EST [facility] Blood VENOUS BLOOD / Unknown Venipuncture / Unknown 07/08/2025 5:15 AM EST 07/08/2025 5:19 AM EST us Stephanie Adamson [employer] CHEMISTRY ORDERABLES Fi nal Result Performing Organization Address City/[facility]/ZIP Co de Phone Number [facility] [address] [place] [address] * PHOSPHORUS LEVEL (07/08/2025 5:15 AM EST) Phosphorus 3.6 2.5 - 4.5 mg/dL 07/08/2025 5:49 AM EST [facility] Blood VENOUS BLOOD / Unknown Venipuncture / Unknown 07/08/2025 5:15 AM EST 07/08/2025 5:19 AM EST us Stephanie Adamson [employer] CHEMISTRY ORDERABLES Fi nal Result [facility] [address] [id number] * (ABNORMAL) BASIC METABOLIC PANEL (07/08/2025 5:15 AM EST) Sodium 139 136 - 145 mmol/L 07/08/2025 5:49 AM EST [facility] Potassium 4.8 3.5 - 5.0 mmol/L 07/08/2025 5:49 AM [facility] Chloride 106 98 - 107 mmol/L 07/08/2025 5:49 AM EST [facility] Total CO2 31(H) 22 - 29 mmol/L 07/08/2025 5:49 AM EST [facility] Anion Gap 2(L) 7 - 16 mmol/L 07/08/2025 5:49 AM [facility] Calcium 8.4(L) 8.6 - 10.4 mg/dL 07/08/2025 5:49 AM [facility] Glucose Lvl 97 70 - 99 mg/dL 07/08/2025 5:49 AM EST [facility] BUN 9 6 - 20 mg/dL 07/08/2025 5:49 AM EST [facility] Creatinine 0.79 0.51 - 1.30 mg/dL 07/08/2025 5:49 AM [facility] eGFR (CKD-EPIcr 2020) 95 >=60 mL/min/1.7 3 m2 07/08/2025 5:49 AM EST [facility] Comment:Estimated GFR was ca lculated using the CKD-EPIcr (2020) equation refit without race. The equation is recommended by the [employer] - [place] [employer] Nephrology Task Force. Blood VENOUS BLOOD / Unknown Venipuncture / Unknown 07/08/2025 5:15 AM EST 07/08/2025 5:19 AM EST Stephanie Adamson [employer] CHEMISTRY ORDERABLES Fi nal Result [facility] [address] [place] [address] * GLUCOSE METER POC (07/08/2025 12:05 AM EST) Glucose Meter POC 97 70 - 100 mg/dL 07/08/2025 12:07 AM EST [facility] Sample Type Capillary 07/08/2025 12:07 AM EST [facility] Patient Status Non-Critical Patient 07/08/2025 12:07 AM EST [facility] Blood BLOOD SPECIMEN / Unknown 07/08/2025 12:05 AM EST 07/08/2025 12:07 AM EST Zackery Villegas MD POINT OF CARE TEST ORDERAB LES Final Result Performing Organization Address City/[facility]/ZIP Co de Phone Number [facility] [address] [place] [address] * GLUCOSE METER POC (07/07/2025 12:48 PM EST) Glucose Meter POC 82 70 - 100 mg/dL 07/07/2025 12:49 PM EST [facility] Sample Type Capillary 07/07/2025 12:49 PM EST [facility] Patient Status Non-Critical Patient 07/07/2025 12:49 PM EST [facility] Blood BLOOD SPECIMEN / Unknown 07/07/2025 12:48 PM EST 07/07/2025 12:49 PM EST Zackery Villegas MD POINT OF CARE TEST ORDERAB LES Final Result Performing Organization Address City/[facility]/ZIP Co de Phone Number [facility] [address] [place] [address] * IONIZED CALCIUM - INPATIENT (07/07/2025 8:19 AM EST) Calcium Ionized 1.15 1.12 - 1.32 mmol/L 07/07/2025 8:33 AM EST [facility] Blood VENOUS BLOOD / Unknown Venipuncture / Unknown 07/07/2025 8:19 AM EST 07/07/2025 8:28 AM EST Karen Campos [employer] CHEMISTRY ORDERABLES Final Result Performing Organization Address [facility] Co de Phone Number [facility] [address] [place] [address] * EXTRA LAVENDER (07/07/2025 5:52 AM EST) Blood VENOUS BLOOD / Unknown Venipuncture / Unknown 07/07/2025 5:52 AM EST 07/07/2025 6:06 AM EST Zackery Villegas MD HEMATOLOGY ORDERABLES Lamar l Result Performing Organization Address [facility] de Phone Number [facility] [address] [place] [address] * MAGNESIUM LEVEL (07/07/2025 5:52 AM EST) Pathologist [facility] Magnesium 1.9 1.6 - 2.4 mg/dL 07/07/2025 6:27 AM EST [facility] Blood VENOUS BLOOD / Unknown Venipuncture / Unknown 07/07/2025 5:52 AM EST 07/07/2025 6:04 AM EST Stephanie Adamson [employer] CHEMISTRY ORDERABLES Fi nal Result Performing Organization Address [facility] de Phone Number [facility] [address] [place] [address] * PHOSPHORUS LEVEL (07/07/2025 5:52 AM EST) Phosphorus 3.8 2.5 - 4.5 mg/dL 07/07/2025 6:27 AM EST [facility] Blood VENOUS BLOOD / Unknown Venipuncture / Unknown 07/07/2025 5:52 AM EST 07/07/2025 6:04 AM EST Stephanie Adamson [employer] CHEMISTRY ORDERABLES Fi nal Result [facility] [address] [place] [address] * (ABNORMAL) BASIC METABOLIC PANEL (07/07/2025 5:52 AM EST) Sodium 139 136 - 145 mmol/L 07/07/2025 6:27 AM EST [facility] Potassium 4.3 3.5 - 5.0 mmol/L 07/07/2025 6:27 AM EST [facility] Chloride 106 98 - 107 mmol/L 07/07/2025 6:27 AM EST [facility] Total CO2 29 22 - 29 mmol/L 07/07/2025 6:27 AM EST [facility] Anion Gap 4(L) 7 - 16 mmol/L 07/07/2025 6:27 AM [facility] Calcium 8.1(L) 8.6 - 10.4 mg/dL 07/07/2025 6:27 AM EST [facility] Glucose Lvl 118(H) 70 - 99 mg/dL 07/07/2025 6:27 AM EST [facility] BUN 7 6 - 20 mg/dL 07/07/2025 6:27 AM [facility] Creatinine 0.81 0.51 - 1.30 mg/dL 07/07/2025 6:27 AM EST [facility] eGFR (CKD-EPIcr 2020) 92 >=60 mL/min/1.7 3 m2 07/07/2025 6:27 AM EST [facility] Comment:Estimated GFR was ca lculated using the CKD-EPIcr (2020) equation refit without race. The equation is recommended by the [employer] - [employer] [employer] Task Force. Blood VENOUS BLOOD / Unknown Venipuncture / Unknown 07/07/2025 5:52 AM EST 07/07/2025 6:04 AM EST us Stephanie Adamson [employer] CHEMISTRY ORDERABLES Fi nal Result [facility] [address] [place] [address] * (ABNORMAL) GLUCOSE METER POC (07/07/2025 5:47 AM EST) Glucose Meter POC 135(H) 70 - 100 mg/dL 07/07/2025 5:50 AM EST [facility] Sample Type Capillary 07/07/2025 5:50 AM EST [facility] Patient Status Non-Critical Patient 07/07/2025 5:50 AM EST [facility] Blood BLOOD SPECIMEN / Unknown 07/07/2025 5:47 AM EST 07/07/2025 5:50 AM EST us Zackery Villegas MD POINT OF CARE TEST ORDERAB LES Final Result Performing Organization Address City/[facility] Co de Phone Number [facility] [address] [place] [address] * (ABNORMAL) GLUCOSE METER POC (07/07/2025 12:04 AM EST) Glucose Meter POC 171(H) 70 - 100 mg/dL 07/07/2025 12:05 AM EST [facility] Sample Type Capillary 07/07/2025 12:05 AM EST [facility] Patient Status Non-Critical Patient 07/07/2025 12:05 AM EST [facility] Blood BLOOD SPECIMEN / Unknown 07/07/2025 12:04 AM EST 07/07/2025 12:05 AM EST us Zackery Villegas MD POINT OF CARE TEST ORDERAB LES Final Result Performing Organization Address City/[facility] Co de Phone Number [facility] [address] [place] [address] * BEDSIDE PICC INSERTION (PICC TEAM RN) (07/06/2025 10:18 AM EST) Narrative [facility] - 07/06/2025 10:18 AM EST Neo Evans RN 07/06/2025 10:20 AM Show images for US 3GC VERIFICATION Procedure was performed by Jewel Khan RN VAT. Patient was informed of risks and benefit of procedure and consent was given. Ultrasound interrogation performed of the right basilic vein. It is shown to be patent and compressible. This was documented with a permanent image. The catheter was placed using all elements of maximal sterile barrier technique as well as all elements of sterile ultrasound technique. Following sterile skin preparation and local anesthesia under ultrasound guidance the vein was punctured. This allowed guide wire and introducer sheath insertion. Guidewire was removed and verified by second individual. Through the introducer sheath a PICC was inserted. Catheter tip was positioned in the lower 1/3 cavoatrial junction per measurement/3cg technology. Catheter was cut to 41 cm with internal measurement at 41 cm. Catheter aspirated and flushed freely. The catheter was secured to the skin surface. Sterile CHG dressing was applied. Patient tolerated the procedure well. Karen Campos APRN PROCEDURE/MINOR SURGI MAHENDRA ORDERABLES Edited Result - Final [facility] [address] [place] [address] * EC ECHOCARDIOGRAM COMPLETE W DOPPLER AND COLOR FLOW MAPPING (07/06/2025 9:37 AM EST) Ejection Fraction 55-60% PYRAMIS LV DIASTOLIC PLAX 4.6 cm PYRAMIS MITRAL REGURGITATION trace PYRAMIS AORTIC STENOSIS no PYRAMIS Anatomical Region Laterality Modality Electrocardiogra phy 07/06/2025 8:46 AM EST Impressions 07/06/2025 11:51 AM EST Conclusions * Left ventricular chamber dimension is normal. * Left ventricular function is normal with an estimated ejection fraction of 55-60%. * Left ventricular segmental wall motion is normal. * The left ventricular diastolic function is normal. * Right ventricular systolic function is normal. * Estimated pulmonary artery systolic pressure is 31 mmHg. Narrative Procedure Note Ham Jaramillo MD - 07/06/2025 IMPRESSION Conclusions * Left ventricular chamber dimension is normal. * Left ventricular function is normal with an estimated ejectionfraction of 55-60%. * Left ventricular segmental wall motion is normal. * The left ventricular diastolic function is normal. * Right ventricular systolic function is normal. * Estimated pulmonary artery systolic pressure is 31 mmHg. Ham Jaramillo MD IMG ECHO ORDERABLES Final Result * US 3GC VERIFICATION (07/06/2025 8:36 AM EST) Abbi Navarrete - 07/06/2025 8:36 AM EST PICC placement performed at the bedside. The study images are for reference only and will not be interpreted by a radiologist. Placement will be determined by the bedside PICC nurse, utilizing 3CG technology. Karen Campos [employer] IMG US ORDERABLES Fin al Result * MAGNESIUM LEVEL (07/06/2025 5:05 AM EST) Magnesium 2.0 1.6 - 2.4 mg/dL 07/06/2025 5:48 AM EST [facility] Blood VENOUS BLOOD / Unknown Venipuncture / Unknown 07/06/2025 5:05 AM EST 07/06/2025 5:24 AM EST Stephanie Adamson [employer] CHEMISTRY ORDERABLES Fi nal Result Performing Organization Address [facility] Co de Phone Number [facility] [address] [place] [address] * PHOSPHORUS LEVEL (07/06/2025 5:05 AM EST) Phosphorus 4.4 2.5 - 4.5 mg/dL 07/06/2025 5:48 AM EST [facility] Blood VENOUS BLOOD / Unknown Venipuncture / Unknown 07/06/2025 5:05 AM EST 07/06/2025 5:24 AM EST Stephanie Adamson [employer] CHEMISTRY ORDERABLES Fi nal Result Performing Organization Address City/[facility] Co de Phone Number [facility] [address] [place] [address] * (ABNORMAL) HEPATIC FUNCTION PANEL (07/06/2025 5:05 AM EST) Total Protein 6.0(L) 6.4 - 8.3 gm/dL 07/06/2025 5:48 AM EST [facility] Albumin 3.2(L) 3.5 - 5.2 gm/dL 07/06/2025 5:48 AM EST [facility] Bili Direct <0.2 0.0 - 0.3 mg/dL 07/06/2025 5:48 AM EST [facility] Bili Total 0.2 0.2 - 1.3 mg/dL 07/06/2025 5:48 AM EST [facility] AST 18 <=40 U/L 07/06/2025 5:48 AM EST [facility] ALT 6 <=41 U/L 07/06/2025 5:48 AM EST [facility] Alk Phos 100 36 - 123 U/L 07/06/2025 5:48 AM EST [facility] Blood VENOUS BLOOD / Unknown Venipuncture / Unknown 07/06/2025 5:05 AM EST 07/06/2025 5:24 AM EST Stephanie Adamson [employer] CHEMISTRY ORDERABLES Fi nal Result [facility] [address], [place] [id number] * (ABNORMAL) BASIC METABOLIC PANEL (07/06/2025 5:05 AM EST) Pathologist [facility] Sodium 140 136 - 145 mmol/L 07/06/2025 5:48 AM EST [facility] Potassium 4.1 3.5 - 5.0 mmol/L 07/06/2025 5:48 AM EST [facility] Chloride 103 98 - 107 mmol/L 07/06/2025 5:48 AM EST [facility] Total CO2 28 22 - 29 mmol/L 07/06/2025 5:48 AM EST [facility] Anion Gap 9 7 - 16 mmol/L 07/06/2025 5:48 AM EST [facility] Calcium 8.4(L) 8.6 - 10.4 mg/dL 07/06/2025 5:48 AM EST [facility] Glucose Lvl 102(H) 70 - 99 mg/dL 07/06/2025 5:48 AM EST [facility] BUN 5(L) 6 - 20 mg/dL 07/06/2025 5:48 AM EST [facility] Creatinine 0.79 0.51 - 1.30 mg/dL 07/06/2025 5:48 AM EST [facility] eGFR (CKD-EPIcr 2020) 95 >=60 mL/min/1.7 3 m2 07/06/2025 5:48 AM EST [facility] Comment:Estimated GFR was ca lculated using the CKD-EPIcr (2020) equation refit without race. The equation is recommended by the National Kidney [employer] - [place] [employer] Neph[employer] Task Force. Blood VENOUS BLOOD / Unknown Venipuncture / Unknown 07/06/2025 5:05 AM EST 07/06/2025 5:24 AM EST Stephanie Adamson [employer] CHEMISTRY ORDERABLES Fi nal Result [facility] [address] [place] [id number] * (ABNORMAL) PREALBUMIN (07/05/2025 5:02 PM EST) Prealbumin 14.5(L) 20.0 - 40.0 mg/dL 07/05/2025 7:42 PM EST [facility] Blood VENOUS BLOOD / Unknown Venipuncture / Unknown 07/05/2025 5:02 PM EST 07/05/2025 5:06 PM EST Stephanie Adamson [employer] CHEMISTRY ORDERABLES Fi nal Result [email or web address] [address] [place] [address] , [place] [address] * TRIGLYCERIDES (07/05/2025 5:02 PM EST) Pathologist [facility] Triglyceride 61 <150 mg/dL 07/06/2025 1:43 AM EST [email or web address] Comment: < 150 Normal 150 - 199 Borderline High 200 - 499 High >= 500 Very High Blood VENOUS BLOOD / Unknown Venipuncture / Unknown 07/05/2025 5:02 PM EST 07/05/2025 5:06 PM EST Stephanie Adamson [employer] CHEMISTRY ORDERABLES Fi nal Result [email or web address] [address] [facility] , [place] [address] * TRIGLYCERIDES (07/05/2025 5:02 PM EST) [facility] Triglyceride 59 <150 mg/dL 07/05/2025 7:54 PM EST [email or web address] Comment: < 150 Normal 150 - 199 Borderline High 200 - 499 High >= 500 Very High Blood VENOUS BLOOD / Unknown Venipuncture / Unknown 07/05/2025 5:02 PM EST 07/05/2025 5:06 PM EST Stephanie Adamson [employer] CHEMISTRY ORDERABLES Fi nal Result Performing Organization Address City/[facility]/ZIP Co de Phone Number [email or web address] [address] [facility] , [place] [address] * MAGNESIUM LEVEL (07/05/2025 5:02 PM EST) Pathologist [facility] Magnesium 1.9 1.6 - 2.4 mg/dL 07/05/2025 5:26 PM EST [facility] Blood VENOUS BLOOD / Unknown Venipuncture / Unknown 07/05/2025 5:02 PM EST 07/05/2025 5:06 PM EST Stephanie Adamson [employer] CHEMISTRY ORDERABLES Fi nal Result [facility] [address] [place] [address] * PHOSPHORUS LEVEL (07/05/2025 5:02 PM EST) Pathologist [facility] Phosphorus 3.3 2.5 - 4.5 mg/dL 07/05/2025 5:26 PM EST [facility] Blood VENOUS BLOOD / Unknown Venipuncture / Unknown 07/05/2025 5:02 PM EST 07/05/2025 5:06 PM EST Stephanie Adamson [employer] CHEMISTRY ORDERABLES Fi nal Result Performing Organization Address City/[facility]/ZIP Co de Phone Number [facility] [address] [place] [address] * (ABNORMAL) HEPATIC FUNCTION PANEL (07/05/2025 5:02 PM EST) [facility] Total Protein 7.6 6.4 - 8.3 gm/dL 07/05/2025 5:26 PM EST [facility] Albumin 4.0 3.5 - 5.2 gm/dL 07/05/2025 5:26 PM EST [facility] Bili Direct <0.2 0.0 - 0.3 mg/dL 07/05/2025 5:26 PM EST [facility] Bili Total 0.3 0.2 - 1.3 mg/dL 07/05/2025 5:26 PM EST [facility] AST 20 <=40 U/L 07/05/2025 5:26 PM EST [facility] ALT 7 <=41 U/L 07/05/2025 5:26 PM EST [facility] Alk Phos 127(H) 36 - 123 U/L 07/05/2025 5:26 PM EST [facility] Blood VENOUS BLOOD / Unknown Venipuncture / Unknown 07/05/2025 5:02 PM EST 07/05/2025 5:06 PM EST Stephanie Adamson [employer] CHEMISTRY ORDERABLES Fi nal Result Performing Organization Address City/[facility]/ZIP Co de Phone Number [facility] [address] [place] [address] * (ABNORMAL) CBC (07/05/2025 5:02 PM EST) WBC 7.8 3.7 - 10.3 x10(3)/mcL 07/05/2025 5:08 PM EST [facility] RBC 4.21 3.90 - 5.20 x10(6)/mcL 07/05/2025 5:08 PM EST [facility] Hgb 12.2 11.2 - 15.7 g/dL 07/05/2025 5:08 PM EST [facility] Hct 37.0 34.0 - 45.0 % 07/05/2025 5:08 PM EST [facility] MCV 87.9 80.0 - 100.0 fL 07/05/2025 5:08 PM EST [facility] MCH 29.0 26.0 - 34.0 pg 07/05/2025 5:08 PM EST [facility] MCHC 33.0 30.7 - 35.5 g/dL 07/05/2025 5:08 PM EST [facility] RDW 13.2 <=14.9 % 07/05/2025 5:08 PM EST [facility] Platelet 319 155 - 369 x10(3)/mcL 07/05/2025 5:08 PM EST [facility] MPV 8.7(L) 8.8 - 12.5 fL 07/05/2025 5:08 PM EST [facility] Blood VENOUS BLOOD / Unknown Venipuncture / Unknown 07/05/2025 5:02 PM EST 07/05/2025 5:06 PM EST us Stephanie Adamson [employer] HEMATOLOGY ORDERABLES F inal Result [facility] [address] [place] [address] * (ABNORMAL) BASIC METABOLIC PANEL (07/05/2025 5:02 PM EST) Pathologist [facility] Sodium 138 136 - 145 mmol/L 07/05/2025 5:26 PM EST [facility] Potassium 4.0 3.5 - 5.0 mmol/L 07/05/2025 5:26 PM EST [facility] Chloride 100 98 - 107 mmol/L 07/05/2025 5:26 PM EST [facility] Total CO2 28 22 - 29 mmol/L 07/05/2025 5:26 PM [facility] Anion Gap 10 7 - 16 mmol/L 07/05/2025 5:26 PM [facility] Calcium 9.4 8.6 - 10.4 mg/dL 07/05/2025 5:26 PM [facility] Glucose Lvl 130(H) 70 - 99 mg/dL 07/05/2025 5:26 PM [facility] BUN 4(L) 6 - 20 mg/dL 07/05/2025 5:26 PM [facility] Creatinine 0.76 0.51 - 1.30 mg/dL 07/05/2025 5:26 PM [facility] eGFR (CKD-EPIcr 2020) 100 >=60 mL/min/1.7 3 m2 07/05/2025 5:26 PM [facility] Comment:Estimated GFR was ca lculated using the CKD-EPIcr (2020) equation refit without race. The equation is recommended by the National Kidney Foundation - [place] [employer] Nephrology Task Force. Blood VENOUS BLOOD / Unknown Venipuncture / Unknown 07/05/2025 5:02 PM EST 07/05/2025 5:06 PM EST Stephanie Adamson [employer] CHEMISTRY ORDERABLES Fi nal Result [facility] [address] [place] [address] * PARTIAL THROMBOPLASTIN TIME (07/05/2025 5:01 PM EST) PTT 34.9 25.7 - 36.8 second(s) 07/05/2025 5:18 PM EST [facility] Comment: Therapeutic range for unfractionated heparin: 50.1 - 98.7 seconds Therapeutic range for direct thrombin inhibitors: Argatroban is 1.5 to 3 times the aPTT baseline. Lepirudin is 1.5 to 2 times the aPTT baseline. The aPTT should not exceed 100 seconds. The dosage of Argatroban should be decreased in patients with hepatic impairment. The dosage of Lepirudin should be decreased in renal insufficiency. Blood VENOUS BLOOD / Unknown Venipuncture / Unknown 07/05/2025 5:01 PM EST 07/05/2025 5:06 PM EST Stephanie Adamson [facility] HEMATOLOGY ORDERABLES F inal Result Performing Organization Address [facility] de Phone Number [facility] [address] [place] [address] * PT / INR (07/05/2025 5:01 PM EST) PT 12.2 10.5 - 13.6 second(s) 07/05/2025 5:18 PM EST [facility] INR 1.06 0.91 - 1.18 (ratio) 07/05/2025 5:18 PM EST [facility] Comment: Level of Therapy Indications Target INR Range Standard Dose Treatment and prophylaxis of venous 2.0 - 3.0 thrombosis, pulmonary embolism High Dose High risk patients with mechanical 2.5 - 3.5 heart valves Blood VENOUS BLOOD / Unknown Venipuncture / Unknown 07/05/2025 5:01 PM EST 07/05/2025 5:06 PM EST Stephanie Unger [facility] HEMATOLOGY ORDERABLES F inal Result Performing Organization Address [facility] de Phone Number [facility] [address] [place] [address] * ESOPHAGOGASTRODUODENOSCOPY (EGD) (07/05/2025 2:34 PM EST) Anatomical Region Laterality Modality Endoscopy Narrative 07/05/2025 3:05 PM EST Table formatting from the original result was not included. 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 This is most likely the site of the gastro-jejunostomy. This could not be traversed with the scope. Performed forceps biopsies in the stomach to rule out H. pylori. The esophagus appeared normal. Recommendation Await pathology results Pantoprazole 40mg BID Sucralfate QID I do not expect patient to be able to tolerate solid food. She will need a surgical J tube or TPN. Pre-Procedure Diagnosis / Indication Pain of upper abdomen Post-Procedure Diagnosis Ulcerated and strictured gastro-enteric anastomosis Staff Staff Role Caterina Rodas RN Cruise Coordinator DESTINY Branonn CRNA, MD Anesthesiologist David Rm MD Performing Provider Medications See Anesthesia Record. Preprocedure A history and physical has been performed, and patient medication allergies have been reviewed. The patient's tolerance of previous anesthesia has been reviewed. The risks and benefits of the procedure and the sedation options and risks were discussed with the patient. All questions were answered and informed consent obtained. ASA 3 - Patient with severe systemic disease Details of the Procedure The patient underwent monitored anesthesia care, which was administered by an anesthesia professional. The patient's blood pressure, heart rate, level of consciousness, oxygen saturation, respirations, ECG and ETCO2 were monitored throughout the procedure. The scope was introduced into the mouth through a bite block and advanced to the stomach. Insufflated with carbon dioxide. Retroflexion was performed in the cardia. The patient experienced no blood loss. The procedure was not difficult. The patient tolerated the procedure well. There were no apparent adverse events. Patient provided education and educated on specific discharge instructions. Patient educated on medications given during the procedure and new medications for discharge. Patient verbalizes understanding of discharge education. Patient stable and awaiting transport for discharge. Events Procedure Events Event Event Time ENDO SCOPE IN TIME 07/05/2025 2:28 PM ENDO SCOPE OUT TIME 07/05/2025 2:32 PM Specimens ID Type Source Tests Collected by Time 1 : Gastric biopsies via forceps Tissue Gastric PATHOLOGY TISSUE REQUEST David Peguero MD 07/05/2025 1431 Anesthesia Event Time In Patient In - Proc. Room 07/05 02:21 PM Patient Out - Proc. Room 07/05 02:34 PM us Margaux Easley [employer] ENDOSCOPY PROCEDURE ORDER JUAN JOSE Final Result * PATHOLOGY TISSUE REQUEST (07/05/2025 2:31 PM EST) CASE REPORT Surgical Pathology Case: [id number] Authorizing Provider: David Peguero MD Collected: 07/05/2025 1431 Ordering Location: [facility] 3 Received: 07/05/2025 1534 Pathologist: Marilou Stanton MD Specimen: Gastric, Gastric biopsies via forceps 07/06/2025 2:32 PM EST [facility] FINAL DIAGNOSIS A. Gastric biopsies: - Gastric body type mucosa with mild chronic inflammation. - Negative for H. pylori organisms on H&E stained slides. 07/06/2025 2:32 PM EST [facility] at 1432 EST GROSS DESCRIPTION A. Received in formalin and labeled with the patient's name, medical record number, and gastric biopsies are 4 fragments of yost tissue ranging from 0.5 to 0.6 cm in greatest dimension. Entirely submitted in A1. Jame Lancaster 07/06/2025 07/06/2025 2:32 PM EST [facility] MICROSCOPIC DESCRIPTION The microscopic examination may have been rendered in whole, or in part, by analyzing high-resolutio n digital images (whole slide images) on the [employer] Digital Pathology platform validated at [facility]. 07/06/2025 2:32 PM EST [facility] EMBEDDED IMAGES 07/06/2025 2:32 PM EST [facility] Tissue STOMACH STRUCTURE / Unknown 07/05/2025 2:31 PM EST 07/05/2025 3:34 PM EST us David Rm MD PATHOLOGY ORDERABLES Final Result [facility] [address] [place] [address] * VITAMIN B1 (THIAMINE) WHOLE BLOOD -REF LAB (07/04/2025 9:37 AM EST) Vit B1 WB 132 70 - 180 nmol/L 07/07/2025 1:33 PM EST [facility] Comment: INTERPRETIVE INFORMATION: Vitamin B1, Whole Blood This assay measures the concentration of thiamine diphosphate (TDP), the primary active form of vitamin B1. Approximately 90 percent of vitamin B1 present in whole blood is TDP. Thiamine and thiamine monophosphate, which comprise the remaining 10 percent, are not measured. This test was developed and its performance characteristics determined by [facility]. It has not been cleared or approved by the [place] Food and Drug Administration. This test was performed in a CLIA certified laboratory and is intended for clinical purposes. Performed By: [facility] [address] [place] [address] Computer Systems Information Director: Sagar Kolb MD, PhD CLIA Number: [id number] Blood VENOUS BLOOD / Unknown Venipuncture / Unknown 07/04/2025 9:37 AM EST 07/04/2025 9:52 AM EST Tamara Karimi PA-C CHEMISTRY ORDERABLES Final R esult [facility] [address] [place] [address] * NICOTINE+METABOLITE, SERUM/PLASMA - REF LAB (07/04/2025 9:36 AM EST) Cotinine, SP 157 ng/mL 07/07/2025 1:10 PM EST [facility] Nicotine, SP 17 ng/mL 07/07/2025 1:10 PM EST [facility] Comment: INTERPRETIVE INFORMATION: Nicotine and Metabolites, Serum or Plasma, Quantitative Methodology: Quantitative Liquid Chromatography-Tandem Mass Spectrometry Positive cutoff: 5 ng/mL For medical purposes only; not valid for forensic use. This test is designed to evaluate recent use of nicotine-containing products. Passive and active exposure cannot be discriminated definitively, although a cutoff of 10 ng/mL cotinine is frequently used for surgery qualification purposes. For smoking cessation programs or compliance testing, the absence of expected drug(s) and/or drug metabolite(s) may indicate non-compliance, inappropriate timing of specimen collection relative to drug administration, poor drug absorption, or limitations of testing. This test cannot distinguish between use of tobacco and purified nicotine products. The concentration value must be greater than or equal to the cutoff to be reported as positive. This test was developed and its performance characteristics determined by [facility]. It has not been cleared or approved by the US Food and Drug Administration. This test was performed in a CLIA certified laboratory and is intended for clinical purposes. Performed By: [facility] [address] [place] [address] Computer Systems Information Director: Sagar Kolb MD, PhD CLIA Number: [id number] Blood VENOUS BLOOD / Unknown Venipuncture / Unknown 07/04/2025 9:36 AM EST 07/04/2025 9:54 AM EST Tamara Karimi PA-C CHEMISTRY ORDERABLES Final R esult [email or web address] [address] [place] [address] * (ABNORMAL) VITAMIN D 25 HYDROXY (07/04/2025 9:36 AM EST) Pathologist [facility] Vit D 25 OH 27.2(L) 30.0 - 150.0 ng/mL 07/04/2025 1:08 PM EST [facility] Comment: Preferred: >= 30 ng/mL Insufficient: 21-29 ng/mL Deficient <= 20 ng/mL Possible Toxicity: >150 ng/mL Samples should not be taken from patients receiving therapy with high biotin doses (i.e. > 5 mg/day) until at least 8 hours following the last biotin administration. Blood VENOUS BLOOD / Unknown Venipuncture / Unknown 07/04/2025 9:36 AM EST 07/04/2025 9:53 AM EST Tamara Karimi PA-C CHEMISTRY ORDERABLES Final R esult [email or web address] [address] [facility] , [place] [address] * VITAMIN B12/ FOLIC ACID (07/04/2025 9:36 AM EST) Pathologist [facility] Vitamin B12 781 232 - 1,245 pg/mL 07/04/2025 1:08 PM EST [facility] Folate 6.93 >=4.80 ng/mL 07/04/2025 1:08 PM EST [email or web address] Blood VENOUS BLOOD / Unknown Venipuncture / Unknown 07/04/2025 9:36 AM EST 07/04/2025 9:53 AM EST Narrative PREFERRED [facility], [facility] - 07/04/2025 1:08 PM EST Ingestion of tarik doses of biotin (>5 mg/day) taken within 8 hours of drawing blood sample can interfere with this immunoassay test. Tamara Karimi PA-C CHEMISTRY ORDERABLES Final R esult Performing Organization Address City/[facility]/ZIP Co de Phone Number PREFERRED LAB [facility] [address] [facility] , [place] [address] * (ABNORMAL) IRON+TIBC (07/04/2025 9:36 AM EST) Iron 43 30 - 160 mcg/dL 07/04/2025 12:51 PM EST PREFERRED LAB [facility], [facility] Transferrin 181(L) 200 - 360 mg/dL 07/04/2025 12:51 PM EST PREFERRED LAB [facility], [facility] Transferrin Saturation 17(L) 20 - 50 % 07/04/2025 12:51 PM EST PREFERRED LAB [facility], [facility] TIBC 253 250 - 400 mcg/dL 07/04/2025 12:51 PM EST PREFERRED LAB [facility], [facility] Blood VENOUS BLOOD / Unknown Venipuncture / Unknown 07/04/2025 9:36 AM EST 07/04/2025 9:53 AM EST Tamara Karimi PA-C CHEMISTRY ORDERABLES Final R esult Performing Organization Address City/[facility] Co de Phone Number PREFERRED LAB [facility], [facility] [address] [facility] , [place] [address] * (ABNORMAL) PREALBUMIN (07/04/2025 9:36 AM EST) Prealbumin 14.7(L) 20.0 - 40.0 mg/dL 07/04/2025 2:19 PM EST [facility]REFERRED [facility], [employer] Blood VENOUS BLOOD / Unknown Venipuncture / Unknown 07/04/2025 9:36 AM EST 07/04/2025 9:53 AM EST Tamara Karimi PA-C CHEMISTRY ORDERABLES Final R ult [email or web address] [address] [facility] , [facility] [place] [address] * (ABNORMAL) HEPATIC FUNCTION PANEL (07/04/2025 5:48 AM EST) Total Protein 6.1(L) 6.4 - 8.3 gm/dL 07/04/2025 9:34 AM EST [facility] Albumin 3.3(L) 3.5 - 5.2 gm/dL 07/04/2025 9:34 AM EST [facility] Bili Direct <0.2 0.0 - 0.3 mg/dL 07/04/2025 9:34 AM EST [facility] Bili Total 0.2 0.2 - 1.3 mg/dL 07/04/2025 9:34 AM EST [facility] AST 15 <=40 U/L 07/04/2025 9:34 AM EST [facility] ALT 6 <=41 U/L 07/04/2025 9:34 AM EST [facility] Alk Phos 100 36 - 123 U/L 07/04/2025 9:34 AM EST [facility] Blood VENOUS BLOOD / Unknown Venipuncture / Unknown 07/04/2025 5:48 AM EST 07/04/2025 6:10 AM EST Tamara Karimi PA-C CHEMISTRY ORDERABLES Final R esult [facility] [address] [place] [address] * (ABNORMAL) CBC WITH DIFF (07/04/2025 5:48 AM EST) WBC 7.9 3.7 - 10.3 x10(3)/mcL 07/04/2025 6:14 AM EST [facility] RBC 3.56(L) 3.90 - 5.20 x10(6)/mcL 07/04/2025 6:14 AM [facility] Hgb 10.4(L) 11.2 - 15.7 g/dL 07/04/2025 6:14 AM [facility] Hct 31.6(L) 34.0 - 45.0 % 07/04/2025 6:14 AM [facility] MCV 88.8 80.0 - 100.0 fL 07/04/2025 6:14 AM [facility] MCH 29.2 26.0 - 34.0 pg 07/04/2025 6:14 AM [facility] MCHC 32.9 30.7 - 35.5 g/dL 07/04/2025 6:14 AM [facility] RDW 13.2 <=14.9 % 07/04/2025 6:14 AM [facility] Platelet 283 155 - 369 x10(3)/mcL 07/04/2025 6:14 AM [facility] MPV 9.2 8.8 - 12.5 fL 07/04/2025 6:14 AM [facility] Neut Percent 41.4 % 07/04/2025 6:14 AM [facility] Comment:Neutrophils equals s egs plus bands Imm Gran% 0.4 % 07/04/2025 6:14 AM [facility] Comment:Automated count of m etamyelocytes, myelocytes and promyelocytes. Lymph Percent 40.4 % 07/04/2025 6:14 AM [facility] [place] Percent 9.8 % 07/04/2025 6:14 AM [facility] Eos Percent 7.1 % 07/04/2025 6:14 AM [facility] Baso Percent 0.9 % 07/04/2025 6:14 AM [facility] Neut # 3.3 1.6 - 6.1 x10(3)/mcL 07/04/2025 6:14 AM [facility] Comment:Neutrophils equals s egs plus bands IMMGRAN# 0.0 0.0 - 0.1 x10(3)/mcL 07/04/2025 6:14 AM [facility] Comment:Automated count of m etamyelocytes, myelocytes and promyelocytes. An absolute IG <0.1 is reported as 0.0. Lymph # 3.2 1.2 - 3.9 x10(3)/mcL 07/04/2025 6:14 AM EST [facility] [place] # 0.8 0.3 - 0.9 x10(3)/mcL 07/04/2025 6:14 AM EST [facility] Eos# 0.6(H) 0.0 - 0.5 x10(3)/mcL 07/04/2025 6:14 AM EST [facility] Baso # 0.1 0.0 - 0.1 x10(3)/[facility] 07/04/2025 6:14 AM EST [facility] Blood VENOUS BLOOD / Unknown Venipuncture / Unknown 07/04/2025 5:48 AM EST 07/04/2025 6:10 AM EST Kathy Geronimo NEWS [employer] HEMATOLOGY ORDERABLES F inal Result [facility] [address] [id number] * (ABNORMAL) BASIC METABOLIC PANEL (07/04/2025 5:48 AM EST) Sodium 143 136 - 145 mmol/L 07/04/2025 6:32 AM EST [facility] Potassium 4.4 3.5 - 5.0 mmol/L 07/04/2025 6:32 AM EST [facility] Chloride 107 98 - 107 mmol/L 07/04/2025 6:32 AM EST [facility] Total CO2 31(H) 22 - 29 mmol/L 07/04/2025 6:32 AM EST [facility] Anion Gap 5(L) 7 - 16 mmol/L 07/04/2025 6:32 AM EST [facility] Calcium 8.5(L) 8.6 - 10.4 mg/dL 07/04/2025 6:32 AM EST [facility] Glucose Lvl 87 70 - 99 mg/dL 07/04/2025 6:32 AM EST [facility] BUN 10 6 - 20 mg/dL 07/04/2025 6:32 AM EST [facility] Creatinine 0.82 0.51 - 1.30 mg/dL 07/04/2025 6:32 AM EST [facility] eGFR (CKD-EPIcr 2020) 91 >=60 mL/min/1.7 3 m2 07/04/2025 6:32 AM EST [facility] Comment:Estimated GFR was ca lculated using the CKD-EPIcr (2020) equation refit without race. The equation is recommended by the [employer] - [place] [employer]ph[employer] Task Force. Blood VENOUS BLOOD / Unknown Venipuncture / Unknown 07/04/2025 5:48 AM EST 07/04/2025 6:10 AM EST Kathy Geronimo [employer] CHEMISTRY ORDERABLES Fi nal Result Performing Organization Address City/State/[facility] Co de Phone Number [facility] [address] [place] [address] documented in this encounter Visit Diagnoses Diagnosis Generalized abdominal pain- Primary Abdominal pain, generalized Pain of upper abdomen Abdominal pain, other specified site History of endometrial cancer Personal history of malignant neoplasm of other parts of uterus History of gastric bypass Bariatric surgery status History of pulmonary embolism Personal history of pulmonary embolism Cannabis dependence (HCC) Cannabis dependence, unspecified Other chest pain Cardiac murmur Undiagnosed cardiac murmurs History of chronic CHF Personal history of other diseases of circulatory system Abdominal pain Abdominal pain, unspecified site Suicidal ideations Suicidal ideation Paroxysmal atrial fibrillation (HCC) Atrial fibrillation Chronic idiopathic constipation Unspecified constipation Chronic nausea Nausea alone Anorexia Estevan-Danlos disease Estevan-Danlos syndrome Generalized anxiety disorder GERD (gastroesophageal reflux disease) Esophageal reflux History of DVT (deep vein thrombosis) Personal history of venous thrombosis and embolism HTN (hypertension) Unspecified essential hypertension Insomnia due to mental disorder Iron deficiency anemia Iron deficiency anemia, unspecified Major depressive disorder, recurrent, moderate (HCC) Major depressive disorder, recurrent episode, moderate Nicotine dependence Tobacco use disorder Peptic ulcer disease Peptic ulcer, unspecified site, unspecified as acute or chronic, without mention of hemorrhage, perforation, or obstruction Acute exacerbation of chronic abdominal pain Chronic low back pain Lumbago Chronic pain Other chronic pain Borderline personality disorder (HCC) Borderline personality disorder Adjustment disorder with mixed anxiety and depressed mood Underweight Moderate protein-calorie malnutrition Malnutrition of moderate degree Dental infection Acute apical periodontitis of pulpal origin Persistent recurrent vomiting Acute reaction to situational stress Vitamin D insufficiency Unspecified vitamin D deficiency Superficial thrombophlebitis of right upper extremity Left leg pain Pain in limb Anorexia nervosa (HCC) Anorexia nervosa Anxiety disorder due to general medical condition documented in this encounter Admitting Diagnoses Diagnosis Abdominal pain Abdominal pain, unspecified site Anorexia documented in this encounter Administered Medications Inactive Administered Medications - up to 1 most recent administrations Medication Order MAR Action Action Date Dose Rate Site alteplase (ACTIVASE) injection 1 mg 1 mg, Intercatheter, PRN, Starting on Thu07/06/25 at 1005, Until Thu07/19/25 at 1948, Clotted line, For catheter occlusion. Instill alteplase into occluded catheter and allow to dwell for 30 minutes. If catheter function not restored, continue to dwell for an additional 90 minutes (120 minutes total). May repeat x 1 for a total of 2 mg. Contact pharmacy for dose. Given 07/17/2025 2:02 PM EST 1 mg amoxicillin-clavulanat e (AUGMENTIN) 875-125 mg per tablet 1 Tablet 1 Tablet, Oral, 2 TIMES DAILY, 14 doses, First dose on Thu07/04/25 at 1115, Last dose on Thu07/10/25 at 2100, Reason for Therapy: Infection Suspected, Indication: Intra-abdominal Given 07/10/2025 8:40 PM EST 1 Tablet BENEPROTEIN powder oral supplement 2 Packet 2 Packet, Oral, 2 TIMES DAILY WITH MEALS (NUTR), First dose on Thu07/06/25 at 1800, Until Discontinued, Mix 1 packet into at least 4 oz of beverage or soft food until dissolved. Do not administer if NPO. Administer orally. Not for IV use. Supplied by [employer] Given 07/10/2025 9:00 AM EST 2 Packets bisacodyL (DULCOLAX) suppository 10 mg 10 mg, Rectal, DAILY PRN, Starting on Thu07/04/25 at 1235, Until Thu07/19/25 at 1948, Constipation Given 07/04/2025 1:28 PM EST 10 mg calcium gluconate in NaCl, iso-osm 1 gram/50 mL IVPB 1 g 1 g, Intravenous, ONCE, 1 dose, On Thu07/10/25 at 1145, Administer over 60 Minutes, Infuse 2 x calcium gluconate 1 gram IVPB for a total dose of 2 gram calcium gluconate. IV Started 07/10/2025 12:58 PM EST 1 g 50 mL/hr calcium gluconate in NaCl, iso-osm 1 gram/50 mL IVPB 1 g 1 g, Intravenous, ONCE, 1 dose, On 07/10/25 at 1145, Administer over 60 Minutes, Infuse 2 x calcium gluconate 1 gram IVPB for a total dose of 2 gram calcium gluconate. IVPB Started During Downtime 07/10/2025 11:08 AM EST 1 g 50 mL/hr cholecalciferol (vitamin D3) tablet 1,000 Units 1,000 Units, Oral, DAILY, First dose on Thu07/06/25 at 0900, Until Discontinued Given 07/19/2025 9:39 AM EST 1,000 Units enoxaparin (LOVENOX) injection 40 mg 40 mg, Subcutaneous, DAILY - LMWH/Xa, First dose on Thu07/10/25 at 1630, Until Discontinued Given 07/11/2025 10:28 AM EST 40 mg Left Arm estradioL (ESTRACE) 0.01 % (0.1 mg/gram) vaginal cream 4 g 4 g, Vaginal, TWICE WEEKLY () (Once per day on Thursday), First dose on Thu07/04/25 at 1200, Until Discontinued Given 07/18/2025 9:21 AM EST 4 g fat emulsion 20 % infusion 250 mL 250 mL, Intravenous, DAILY 6PM, First dose on Thu07/08/25 at 1800, Until Discontinued, Administer over 10 Hours, Do NOT administer if allergic to eggs, egg products, soybeans or soy products. Use ONLY pharmacy supplied tubing. Do not use extension sets longer than 7 inches. Infusion requires the use of a 1.2 micron filter set. [facility] Rate/Dose Verify 07/18/2025 10:00 PM EST 25 mL/hr fUROsemide (LASix) injection 40 mg 40 mg, Intravenous, ONCE, 1 dose, On Thu07/10/25 at 1645, Give IV push at 20 to 40 mg/min. MAX ADMIN RATE = 40 mg/min Given 07/10/2025 3:56 PM EST 40 mg fUROsemide (LASix) injection 40 mg 40 mg, Intravenous, ONCE, 1 dose, On 07/15/25 at 1200, Give IV push at 20 to 40 mg/min. MAX ADMIN RATE = 40 mg/min Given 07/15/2025 1:38 PM EST 40 mg fUROsemide (LASix) injection 60 mg 60 mg, Intravenous, ONCE, 1 dose, On 07/16/25 at 1300, Give IV push at 20 to 40 mg/min. MAX ADMIN RATE = 40 mg/min Given 07/16/2025 2:23 PM EST 60 mg fUROsemide (LASix) injection 60 mg 60 mg, Intravenous, ONCE, 1 dose, On 07/17/25 at 1000, Give IV push at 20 to 40 mg/min. MAX ADMIN RATE = 40 mg/min Given 07/17/2025 11:00 AM EST 60 mg GLUCERNA Therapeutic oral supplement 1 'box' 1 'box', Oral, 3 TIMES DAILY WITH MEALS (NUTR), First dose on Lala 07/06/25 at 0900, Until Discontinued, Administer orally. Do not administer if NPO or on clear liquid diet. Not for IV use. Supplied by [employer] [place] flavored Given 07/10/2025 9:00 AM EST 1 'box' hydrOXYzine (VISTARIL) capsule 25-50 mg 25-50 mg, Oral, 4 TIMES DAILY PRN, Starting on Thu07/03/25 at 2300, Until Thu07/19/25 at 1948, Anxiety Given 07/19/2025 9:39 AM EST 25 mg lactated ringers infusion Intravenous, at 75 mL/hr, CONTINUOUS, Starting on Thu07/05/25 at 1415, Until Thu07/06/25 at 1414, Pre-procedure(ENDO) IV Restarted 07/05/2025 2:21 PM EST lidocaine 10 mg/mL (1 %) injection (PF) 1 mL 1 mL, Subcutaneous, ONCE, 1 dose, On Thu07/06/25 at 1145, Use 1% Lidocaine 1 mL intradermally and subcutaneously at insertion site for local anesthetic. Given by Other 07/06/2025 10:17 AM EST 1 mL Right Arm LORazepam (ATIVAN) tablet 1 mg 1 mg, Oral, 2 TIMES DAILY PRN, Starting on Thu07/03/25 at 2300, Until Thu07/19/25 at 1948, Anxiety, Restlessness Given 07/19/2025 11:18 AM EST 1 mg magnesium sulfate in dextrose 5% infusion 1 g 1 g, Intravenous, at 100 mL/hr, ONCE, 1 dose, On Thu07/07/25 at 1345, Infuse 1 x Magnesium Sulfate 1 g IVPB for a total dose of 1 g Magnesium Sulfate IV Started 07/07/2025 1:46 PM EST 1 g 100 mL/hr mupirocin (BACTROBAN) 2 % ointment Nasal, 2 TIMES DAILY, 10 doses, First dose on Thu07/06/25 at 1145, Last dose on Thu07/10/25 at 2100 Given 07/10/2025 8:40 PM EST Both Nares ondansetron (ZOFRAN) injection 4 mg 4 mg, Intravenous, EVERY 6 HOURS PRN, Starting on Thu07/03/25 at 2259, Until Thu07/19/25 at 1948, Nausea Given 07/17/2025 10:56 AM EST 4 mg ondansetron (ZOFRAN) tablet 4 mg 4 mg, Oral, EVERY 6 HOURS PRN, Starting on Thu07/03/25 at 2259, Until Thu07/19/25 at 1948, Nausea Given 07/18/2025 9:19 AM EST 4 mg oxyCODONE (ROXICODONE) immediate release tablet 5-10 mg 5-10 mg, Oral, EVERY 4 HOURS PRN, Starting on Thu07/03/25 at 2303, Until Thu07/19/25 at 1948, Pain, Pain Unrelieved by Oral Non-Opioid Therapy Given 07/19/2025 2:37 PM EST 10 mg pantoprazole (PROTONIX) tablet 40 mg 40 mg, Oral, 2 TIMES DAILY, First dose on Thu07/04/25 at 0945, Until Discontinued, Do not crush or chew Given 07/19/2025 9:39 AM EST 40 mg polyethylene glycol (GLYCOLAX, MIRALAX) packet 17 g 17 g, Oral, 2 TIMES DAILY, First dose on Thu07/06/25 at 0200, Until Discontinued, Mix in 8 oz of water Given 07/16/2025 9:03 PM EST 17 g pregabalin (LYRICA) capsule 200 mg 200 mg, Oral, 2 TIMES DAILY, First dose on Thu07/04/25 at 0045, Until Discontinued Given 07/19/2025 9:39 AM EST 200 mg prochlorperazine edisylate (COMPAZINE) injection 10 mg 10 mg, Intravenous, ONCE, 1 dose, On Thu07/07/25 at 1345 Given 07/07/2025 1:41 PM EST 10 mg prochlorperazine edisylate (COMPAZINE) injection 5 mg 5 mg, Intravenous, ONCE, 1 dose, On Thu07/14/25 at 2000 Given 07/14/2025 9:14 PM EST 5 mg promethazine (PHENERGAN) tablet 25 mg 25 mg, Oral, ONCE PRN, 1 dose, Starting on Thu07/14/25 at 1954, Until Thu07/14/25 at 2008, Nausea Given 07/14/2025 8:08 PM EST 25 mg QUEtiapine (SEROquel) tablet 100 mg 100 mg, Oral, NIGHTLY, First dose on Thu07/04/25 at 0045, Until Discontinued Given 07/09/2025 9:12 PM EST 100 mg QUEtiapine (SEROquel) tablet 100 mg 100 mg, Oral, NIGHTLY, First dose (after last modification) on Thu07/10/25 at 2100, Until Discontinued Given 07/11/2025 8:24 PM EST 100 mg QUEtiapine (SEROquel) tablet 100 mg 100 mg, Oral, NIGHTLY, First dose (after last modification) on Thu07/12/25 at 2100, Until Discontinued Given 07/18/2025 9:53 PM EST 100 mg QUEtiapine (SEROquel) tablet 25 mg 25 mg, Oral, DAILY, First dose (after last modification) on Thu07/13/25 at 0900, Until Discontinued Given 07/19/2025 9:39 AM EST 25 mg QUEtiapine (SEROquel) tablet 50 mg 50 mg, Oral, DAILY, First dose on Thu07/10/25 at 1100, Until Discontinued Given 07/12/2025 8:29 AM EST 50 mg QUEtiapine (SEROquel) tablet 50 mg 50 mg, Oral, 2 TIMES DAILY PRN, Starting on Thu07/10/25 at 0916, Until Thu07/12/25 at 1002, Anxiety, Agitation Given 07/11/2025 12:44 PM EST 50 mg sodium chloride 0.9 % 1,000 mL IV bolus Intravenous, ONCE, 1 dose, On Thu07/07/25 at 1000, at 983.6 mL/hr IV Started 07/07/2025 9:19 AM EST 983.6 mL/hr sodium chloride 0.9% IV line flush 20-50 mL 20-50 mL, Intravenous, at 150-600 mL/hr, PRN, Starting on Thu07/06/25 at 1005, Until Thu07/19/25 at 1948, Line Care, *Not to be used for red and blue lumen on dialysis catheters* Flush with a minimum of 20 mL after IVPB to insure complete administration of the dose. May use the saline infusion to back flush IVPB tubing as needed. sodium chloride 0.9% syringe 10 mL 10 mL, Intravenous, EVERY 8 HOURS SCHEDULED (3 times per day), First dose on Thu07/06/25 at 1400, Until Discontinued, Saline locked lumens on central lines should be checked for blood return and flushed every 8 hours. Lumens with running IVF/drips should be checked for blood return and flushed whenever tubing is changed, a minimum of every 7 days. Given 07/19/2025 3:00 PM EST 10 mL sodium chloride 0.9% syringe Intravenous, PRN, Starting on Thu07/06/25 at 1005, Until Thu07/19/25 at 1948, Line Care, *Not to be used for red and blue lumen on dialysis catheters* Flush with 5-10 mL saline pre/post IVP, 10 mL prior to IVPB or blood product administration, and 20 mL post blood draws for CENTRAL lines. sucralfate (CARAFATE) tablet 2 g 2 g, Oral, 2 TIMES DAILY, First dose on Thu07/04/25 at 1145, Until Discontinued, Hold enteral feeding 1 hour before and 1 hour after administration Crush and mix with 1 tablespoon of water to make a slurry. take medication as such Given 07/04/2025 11:30 AM EST 2 g sucralfate (CARAFATE) tablet 2 g 2 g, Oral, 2 TIMES DAILY, First dose (after last reorder) on Thu07/19/25 at 1200, Until Discontinued, Hold enteral feeding 1 hour before and 1 hour after administration Crush and mix with 1 tablespoon of water to make a slurry. take medication as such Given 07/19/2025 11:18 AM EST 2 g TPN ADULT (Clinimix) DAILY 6PM, First dose on Thu07/13/25 at 1800, Until Discontinued, Administer over 24 Hours, at 70 mL/hr, 2,000 mL, Central, This bag delivers the components listed below over 24 hours based on an infusion rate of 70 ml/hour. 84 grams/day Amino Acids 252 grams/day Dextrose 43.7 mEq/day Sodium Chloride 16 mEq/day Sodium Acetate 33.6 mEq/day Potassium Acetate 0 mmol/day Potassium Phosphate 7.6 mEq/day Calcium Chloride 8.4 mEq/day Magnesium Sulfate 10 mL/day MVI (Multivitamin), 1 mL/day Trace Elements *Central Line Use Only* Use ONLY pharmacy supplied tubing and filter. Do not use extension sets longer than 7 inches. Infusion requires use of filter. For non-lipid days, utilize 0.22 micron filter set. Refer to Clinical Skills for additional information. Upon discontinuation of the TPN, ramp down the rate as follows: Decrease TPN rate by 50% for the first hour, then decrease rate again by 50% for the second hour, then discontinue TPN. If TPN rate is less than 25 mL/hr when ordered to be discontinued, then discontinue TPN without the taper. Check blood sugar at third hour after TPN discontinuation. VESICANT, Central Rate/Dose Verify 07/18/2025 10:00 PM EST 70 mL/hr TPN ADULT w/ Electrolytes (Clinimix-E) DAILY 6PM, 2 doses, First dose on Thu07/05/25 at 1800, Last dose on Thu07/06/25 at 1800, Administer over 24 Hours, at 42 mL/hr, 1,000 mL, Central, This bag delivers the components listed below over 24 hours based on an infusion rate of 42 ml/hour. 50.4 grams/day Amino Acids 151.2 grams/day Dextrose 10.1 mEq/day Sodium Chloride 25.2 mEq/day Sodium Acetate Trihydrate 15.1 mmol/day Potassium Phosphate 4.5 mEq/day Calcium Chloride 5 mEq/day Magnesium Chloride 10 mL/day MVI (Multivitamin) 1 mL/day Trace Elements *Central Line Use Only* Use ONLY pharmacy supplied tubing and filter. Do not use extension sets longer than 7 inches. Infusion requires use of filter. For non-lipid days, utilize 0.22 micron filter set. Refer to Clinical Skills for additional information. Upon discontinuation of the TPN, ramp down the rate as follows: Decrease TPN rate by 50% for the first hour, then decrease rate again by 50% for the second hour, then discontinue TPN. If TPN rate is less than 25 mL/hr when ordered to be discontinued, then discontinue TPN without the taper. Check blood sugar at third hour after TPN discontinuation. VESICANT, Central Rate/Dose Verify 07/07/2025 9:19 AM EST 42 mL/hr TPN ADULT w/ Electrolytes (Clinimix-E) DAILY 6PM, 6 doses, First dose on Thu07/07/25 at 1800, Last dose on Thu07/12/25 at 1800, Administer over 24 Hours, at 70 mL/hr, 2,000 mL, Central, This bag delivers the components listed below over 24 hours based on an infusion rate of 70 ml/hour. 84 grams/day Amino Acids 252 grams/day Dextrose 16.8 mEq/day Sodium Chloride 42 mEq/day Sodium Acetate Trihydrate 25.2 mmol/day Potassium Phosphate 7.6 mEq/day Calcium Chloride 8.4 mEq/day Magnesium Chloride 10 mL/day MVI (Multivitamin) 1 mL/day Trace Elements *Central Line Use Only* Use ONLY pharmacy supplied tubing and filter. Do not use extension sets longer than 7 inches. Infusion requires use of filter. For non-lipid days, utilize 0.22 micron filter set. Refer to Clinical Skills for additional information. Upon discontinuation of the TPN, ramp down the rate as follows: Decrease TPN rate by 50% for the first hour, then decrease rate again by 50% for the second hour, then discontinue TPN. If TPN rate is less than 25 mL/hr when ordered to be discontinued, then discontinue TPN without the taper. Check blood sugar at third hour after TPN discontinuation. VESICANT, Central Rate/Dose Verify 07/13/2025 7:31 AM EST 70 mL/hr documented in this encounter Discontinued Medications Medication Sig Discontinue Reason Start Date End Da te amoxicillin-clavulana te (AUGMENTIN) 500-125 mg Oral Tablet Take 500 mg by mouth 3 times daily. Stop Taking at Discharge 07/19/2025 estradioL (ESTRACE) 0.01 % (0.1 mg/gram) Vagl Cream Place 4 g vaginally two times a week. Stop Taking at Discharge 07/19/2025 documented as of this encounter Historical Medications * This list may reflect changes made after this encounter. hydrOXYzine (VISTARIL) 50 mg Oral Capsule Take 50 mg by mouth 4 times daily as needed for Other (anxiety). LORazepam (ATIVAN) 1 mg Oral Tablet Take 1 mg by mouth 2 times daily as needed for Anxiety or Restlessness. pregabalin (LYRICA) 150 mg Oral Capsule Take 200 mg by mouth 2 times daily. QUEtiapine (SEROQUEL) 100 mg Oral Tablet Take 100 mg by mouth nightly. estradioL (ESTRACE) 0.01 % (0.1 mg/gram) Vagl Cream Place 4 g vaginally two times a week. 5 amoxicillin-clav ulanate (AUGMENTIN) 500-125 mg Oral Tablet Take 500 mg by mouth 3 times daily. 5 added in this encounter Active and Recently Administered Medications Times are shown in EST. Scheduled Medication Order 07/17/2025 07/18/2025 07/19/2025 cholecalciferol (vitamin D3) tablet 1,000 Units 1,000 Units, Oral, DAILY, First dose on Lala 07/06/25 at 0900, Until Discontinued 0800 (Given - Provider: Delma Story RN) 0835 (Given - Provider: Rupa Leach RN) 0939 (Given - Provider: Alicia Rhodes RN) estradioL (ESTRACE) 0.01 % (0.1 mg/gram) vaginal cream 4 g 4 g, Vaginal, TWICE WEEKLY () (Once per day on Thursday), First dose on Thu07/04/25 at 1200, Until Discontinued 0921 (Given - Provider: Rupa Leach RN) fat emulsion 20 % infusion 250 mL 250 mL, Intravenous, DAILY 6PM, First dose on Thu07/08/25 at 1800, Until Discontinued, Administer over 10 Hours, Do NOT administer if allergic to eggs, egg products, soybeans or soy products. Use ONLY pharmacy supplied tubing. Do not use extension sets longer than 7 inches. Infusion requires the use of a 1.2 micron filter set. VESICANT 0432 (Stopped - Provider: Delma Story RN)183 (New Bag - Provider: Delma Story RN)190 (Rate/Dose Verify - Provider: Delma Story RN)2014 (Rate/Dose Verify - Provider: Leatha Ibanez RN) 191 (New Bag - Provider: Rupa Leach RN)220 (Rate/Dose Verify - Provider: Leatha Ibanez RN) 0552 (Stopped - Provider: Leatha Ibanez RN) fUROsemide (LASix) injection 60 mg (COMPLETED) 60 mg, Intravenous, ONCE, 1 dose, On Thu07/17/25 at 1000, Give IV push at 20 to 40 mg/min. MAX ADMIN RATE = 40 mg/min 1100 (Given - Provider: Delma Story RN) pantoprazole (PROTONIX) tablet 40 mg 40 mg, Oral, 2 TIMES DAILY, First dose on Thu07/04/25 at 0945, Until Discontinued, Do not crush or chew 0800 (Given - Provider: Delma Story RN)2051 (Given - Provider: Leatha Ibanez RN) 0835 (Given - Provider: Rupa Leach RN)2152 (Given - Provider: Leatha Ibanez RN) 0939 (Given - Provider: Alicia Rhodes, DARCY) polyethylene glycol (GLYCOLAX, MIRALAX) packet 17 g 17 g, Oral, 2 TIMES DAILY, First dose on Thu07/06/25 at 0200, Until Discontinued, Mix in 8 oz of water 0757 (Not Given - Provider: Delma Story RN - Reason: Patient Declined)2052 (Not Given - Provider: Leatha Ibanez RN - Reason: Patient Declined - Comment: two loose stools today) 0840 (Not Given - Provider: Rupa Leach RN - Reason: Patient Declined)224 (Not Given - Provider: Leatha Ibanez RN - Reason: Other - Comment: patient having liquid stools) 0939 (Not Given - Provider: Alicia Rhodes, DARCY - Reason: Patient Declined) pregabalin (LYRICA) capsule 200 mg 200 mg, Oral, 2 TIMES DAILY, First dose on Thu07/04/25 at 0045, Until Discontinued 0800 (Given - Provider: Delma Story RN)2051 (Given - Provider: Leatha Ibanez RN) 08 (Given - Provider: Rupa Leach RN)2152 (Given - Provider: Leatha Ibanez RN) 0939 (Given - Provider: Alicia Rhodes, RN) QUEtiapine (SEROquel) tablet 100 mg(Linked Group 1) 100 mg, Oral, NIGHTLY, First dose (after last modification) on Thu07/12/25 at 2100, Until Discontinued 2051 (Given - Provider: Leatha Ibanez RN) 2152 (Given - Provider: Leatha Ibanez RN) QUEtiapine (SEROquel) tablet 25 mg(Linked Group 1) 25 mg, Oral, DAILY, First dose (after last modification) on Thu07/13/25 at 0900, Until Discontinued 0822 (Given - Provider: Delma Story RN) 08 (Given - Provider: Rupa Leach RN) 0939 (Given - Provider: Alicia Rhodes, DARCY) sodium chloride 0.9% syringe 10 mL 10 mL, Intravenous, EVERY 8 HOURS SCHEDULED (3 times per day), First dose on Thu07/06/25 at 1400, Until Discontinued, Saline locked lumens on central lines should be checked for blood return and flushed every 8 hours. Lumens with running IVF/drips should be checked for blood return and flushed whenever tubing is changed, a minimum of every 7 days. 0540 (Given - Provider: Rhonda Bardales RN)1402 (Given - Provider: Delma Story RN)2052 (Given - Provider: Leatha Ibanez RN) 0505 (Given - Provider: Leatha Ibanez, DARCY)1326 (Given - Provider: Rupa Leach, DARCY)2152 (Given - Provider: Leatha Ibanez, DARCY) 0554 (Given - Provider: Leatha Ibanez RN)1500 (Given - Provider: Alicia Rhodes, DARCY) sucralfate (CARAFATE) tablet 2 g (CANCELED) 2 g, Oral, 2 TIMES DAILY, First dose (after last reorder) on Thu07/19/25 at 1200, Until Discontinued, Hold enteral feeding 1 hour before and 1 hour after administration Crush and mix with 1 tablespoon of water to make a slurry. take medication as such 1118 (Given - Provider: Alicia Rhodes RN) TPN ADULT (Clinimix) DAILY 6PM, First dose on Lala 07/13/25 at 1800, Until Discontinued, Administer over 24 Hours, at 70 mL/hr, 2,000 mL, Central, This bag delivers the components listed below over 24 hours based on an infusion rate of 70 ml/hour. 84 grams/day Amino Acids 252 grams/day Dextrose 43.7 mEq/day Sodium Chloride 16 mEq/day Sodium Acetate 33.6 mEq/day Potassium Acetate 0 mmol/day Potassium Phosphate 7.6 mEq/day Calcium Chloride 8.4 mEq/day Magnesium Sulfate 10 mL/day MVI (Multivitamin), 1 mL/day Trace Elements *Central Line Use Only* Use ONLY pharmacy supplied tubing and filter. Do not use extension sets longer than 7 inches. Infusion requires use of filter. For non-lipid days, utilize 0.22 micron filter set. Refer to Clinical Skills for additional information. Upon discontinuation of the TPN, ramp down the rate as follows: Decrease TPN rate by 50% for the first hour, then decrease rate again by 50% for the second hour, then discontinue TPN. If TPN rate is less than 25 mL/hr when ordered to be discontinued, then discontinue TPN without the taper. Check blood sugar at third hour after TPN discontinuation. VESICANT, Central 0430 (Stopped - Provider: Delma Story RN)1837 (New Bag - Provider: Delma Story RN)1901 (Rate/Dose Verify - Provider: Delma Story RN)2015 (Rate/Dose Verify - Provider: Leatha Ibanez, DARCY) 0750 (Rate/Dose Verify - Provider: Rupa Leach, RN)1859 (New Bag - Provider: Rupa Leach RN)2200 (Rate/Dose Verify - Provider: Leatha Ibanez, DARCY) 194 (Due: Stopped) PRN Medication Order 07/17/2025 07/18/2025 07/19/2025 acetaminophen (TYLENOL) tablet 650 mg 650 mg, Oral, EVERY 4 HOURS PRN, Starting on 07/03/25 at 2302, Until Thu07/19/25 at 1948, Pain, Fever, Headaches, Maximum adult dose of acetaminophen is 4000 mg from all sources in 24 hours. alteplase (ACTIVASE) injection 1 mg 1 mg, Intercatheter, PRN, Starting on Lala 07/06/25 at 1005, Until Thu07/19/25 at 1948, Clotted line, For catheter occlusion. Instill alteplase into occluded catheter and allow to dwell for 30 minutes. If catheter function not restored, continue to dwell for an additional 90 minutes (120 minutes total). May repeat x 1 for a total of 2 mg. Contact pharmacy for dose. 1402 (Given - Provider: Delma Story RN) bisacodyL (DULCOLAX) suppository 10 mg 10 mg, Rectal, DAILY PRN, Starting on Tu07/04/25 at 1235, Until Thu07/19/25 at 1948, Constipation hydrOXYzine (VISTARIL) capsule 25-50 mg 25-50 mg, Oral, 4 TIMES DAILY PRN, Starting on Thu07/03/25 at 2300, Until Thu07/19/25 at 1948, Anxiety 1415 (Given - Provider: Delma Story RN) 0505 (Given - Provider: Leatha Ibanez RN)1227 (Given - Provider: Rupa Leach, RN)2153 (Given - Provider: Leatha Ibanez, DARCY) 0939 (Given - Provider: Alicia Rhodes, DARCY) LORazepam (ATIVAN) tablet 1 mg 1 mg, Oral, 2 TIMES DAILY PRN, Starting on Thu07/03/25 at 2300, Until Thu07/19/25 at 1948, Anxiety, Restlessness 0800 (Given - Provider: Delma Story RN)2014 (Given - Provider: Leatha Ibanez, DARCY) 0835 (Given - Provider: Rupa Leach, RN)2359 (Given - Provider: Leatha Ibanez, DARCY) 1118 (Given - Provider: Alicia Rhodes, RN) ondansetron (ZOFRAN) injection 4 mg(Linked Group 2) 4 mg, Intravenous, EVERY 6 HOURS PRN, Starting on Thu07/03/25 at 2259, Until Thu07/19/25 at 1948, Nausea 1056 (Given - Provider: Delma Story RN) 0919 (See Alternative - Provider: Rupa Leach, RN) ondansetron (ZOFRAN) tablet 4 mg(Linked Group 2) 4 mg, Oral, EVERY 6 HOURS PRN, Starting on Thu07/03/25 at 2259, Until Thu07/19/25 at 1948, Nausea 1056 (See Alternative - Provider: Delma Stroy RN) 0919 (Given - Provider: Rupa Leach, DARCY) oxyCODONE (ROXICODONE) immediate release tablet 5-10 mg 5-10 mg, Oral, EVERY 4 HOURS PRN, Starting on Thu07/03/25 at 2303, Until Thu07/19/25 at 1948, Pain, Pain Unrelieved by Oral Non-Opioid Therapy 0656 (Given - Provider: Taylor Montoya RN)1056 (Given - Provider: Delma Story RN)1518 (Given - Provider: Delma Story RN)2014 (Given - Provider: Leatha Ibanez RN) 0457 (Given - Provider: Wilberto Ureña RN)0919 (Given - Provider: Rupa Leach, DARCY)1355 (Given - Provider: Lauren Camarena RN)1912 (Given - Provider: Rupa Leach, DARCY)2359 (Given - Provider: Leatha Ibanez RN) 0939 (Given - Provider: Alicia Rhodes, DARCY)1437 (Given - Provider: Alicia Rhodes, DARCY) sodium chloride 0.9% IV line flush 20-50 mL 20-50 mL, Intravenous, at 150-600 mL/hr, PRN, Starting on Laal 07/06/25 at 1005, Until Thu07/19/25 at 1948, Line Care, *Not to be used for red and blue lumen on dialysis catheters* Flush with a minimum of 20 mL after IVPB to insure complete administration of the dose. May use the saline infusion to back flush IVPB tubing as needed. sodium chloride 0.9% syringe Intravenous, PRN, Starting on Lala 07/06/25 at 1005, Until Thu07/19/25 at 1948, Line Care, *Not to be used for red and blue lumen on dialysis catheters* Flush with 5-10 mL saline pre/post IVP, 10 mL prior to IVPB or blood product administration, and 20 mL post blood draws for CENTRAL lines. Linked Groups Order Group 1: QUEtiapine (SEROquel) tablet 100 mgJump to med 100 mg, Oral, NIGHTLY, First dose (after last modification) on Thu07/12/25 at 2100, Until Discontinued And QUEtiapine (SEROquel) tablet 25 mgJump to med 25 mg, Oral, DAILY, First dose (after last modification) on Lala 07/13/25 at 0900, Until Discontinued Group 2: ondansetron (ZOFRAN) tablet 4 mgJump to med 4 mg, Oral, EVERY 6 HOURS PRN, Starting on Thu07/03/25 at 2259, Until Thu07/19/25 at 1948, Nausea Or ondansetron (ZOFRAN) injection 4 mgJump to med 4 mg, Intravenous, EVERY 6 HOURS PRN, Starting on Thu07/03/25 at 2259, Until Thu07/19/25 at 1948, Nausea documented in this encounter Orders Medications Ordered That Nicholas ht Not Have Been Administered Count Last Ordered Date First Ordered Date sodium chloride 0.9% IV line flush 20-50 mL 1 07/06/2025 sodium chloride 0.9% syringe 1 07/06/2025 droPERidol (INAPSINE) injection 0.625 mg 1 07/05/2025 ENSURE High Protein oral supplement 1 Each 1 07/05/2025 fentaNYL (SUBLIMAZE) injection 25 mcg 1 HYDROmorphone (DILAUDID) injection 0.5 mg 1 07/05/2025 ondansetron (ZOFRAN) injection 4 mg 1 07/05 ondansetron (ZOFRAN-ODT) dis integrating tablet 8 mg 1 07/05/2025 oxyCODONE (ROXICODONE) immed iate release tablet 5 mg 1 07/05/2025 bisacodyL (DULCOLAX) suppository 10 mg 1 acetaminophen (TYLENOL) tablet 650 mg 1 Nursing Count Last Ordered Date First Orde red Date NURSING COMMUNICATION 2 07/05/2025 RELEASE FROM ANESTHESIA CARE 1 07/05/2025 ACKNOWLEDGEMENT OF CONSENT 1 07/04/2025 Consult Count Last Ordered Date First Orde red Date IP CONSULT TO NUTRITION 2 07/05/202506/17 IP CONSULT TO CARDIOLOGY 1 07/04/2025 IP CONSULT TO GI 1 07/04/2025 IP CONSULT TO PSYCHIATRY 1 07/04/2025 IP CONSULT TO GENERAL SURGERY 1 07/03/2025 IV Count Last Ordered Date First Orde red Date IV SITE CARE 1 07/05/2025 Admission Count Last Ordered Date First Orde red Date ADMIT 2 07/05/2025 07/04/2025 Discharge Count Last Ordered Date First Orde red Date DISCHARGE PATIENT 1 07/19/2025 documented in this encounter Additional Health Concerns Assessment Noted Time PHQ-9 Depression Total Score: 2 07/04/20 25 2:43 PM EST PHQ-2 Depression Total Score: 2 07/04/20 25 2:43 PM EST documented as of this encounter
--- OUTSIDE RECORDS SUMMARY | 2025-07-05 14:21 | XMS_ITS | Encounter Summary ---
Author Organization [place] [address] Care Team Providers Care Clerk Entry Level Name Role Phone Unavailable Primary Care Provider Unavailabl e Reason for Visit * Auth/Cert/Inpt Specialty Diagnoses / Procedures Referred By Vish xiong Referred To Contact Diagnoses Abdominal pain Anorexia abd pain anorexia Referral ID Status Reason Start Date Expiration Date Visits Re quested Visits Authorized [id number] 1 1 Encounter Details Date Type Department Care Team (Late st Contact Info) Description 07/05/2025 2:21 PM EST Anesthesia Event [facility] [address] [facility]. [place] [id number] Bolivar Stephenson MD [address] [place] [address] [address] [place] [address] Anesthesia Record Procedure Summary Procedure Name Responsible Anesthesiologist Anesthesia Start Time Anesthesia Stop Time ESOPHAGOGASTRODUODENOSCOPY (EGD) Bolivar Stephenson MD 1 09/04/24 1421 07/05/25 1434 Events Date Time Event Comment 07/05/2025 1251 1348 AN Equip Check 1421 An Start 1421 An Start Data 1423 Start Supplemental O2 Disabl es direct capture of O2 [ANES AGENT O2 [[id number]] and Air flow [ANES AGENT AIR [[id number]] variables into chart. 1424 Immediate Pre Anesthetic [...] of understanding from the receiving PACU/ICU steam shovel operator 3834 An Stop Meds Name Total lidocaine injection [...] Removal Time: 19007/05/25 1424 by Margaux Almanza, EARLY BREASTFEEDING CARE SPECIALIST 07/05/25 1900 by Abby Madden, DARCY documented [...] care, and heating? Not very hard 07/04/2025 [facility] of Occupat ional Health - Occupational Stress [...] money to get more. Often true 07/04/2025 [facility] Utilities Answer Date Recorded In the past 12 months has th e electric, gas, oil, or water company threatened to shut off services in your home? 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
--- OUTSIDE RECORDS SUMMARY | 2025-07-06 08:40 | XMS_ITS | Encounter Summary ---
Author Organization [place] [address] Care Team Providers Care Grant Officer Name Role Phone Unavailable Primary Care Provider Unavailabl e Encounter Details Date Type Department Care Team (Late st Contact Info) Description 07/06/2025 8:40 AM EST Ancillary Procedure [facility] [address] [place] [address] Social History Tobacco Use Types Packs/Day Years [...] care, and heating? Not very hard 07/04/2025 [facility] [place] of Occupat ional Health - Occupational Stress [...] money to get more. Often true 07/04/2025 [facility] Utilities Answer Date Recorded In the past 12 months has th e electric, gas, oil, or water company threatened to shut off services in your home? No 07/04/2025 [facility] IP Transportation Answer D ate Recorded [...] Procedure Name Priority Date/Time Associated Diagnosis Comments US 3GC VERIFICATION STAT 07/06/2025 8 :36 AM EST documented in this encounter Results * US 3GC VERIFICATION (07/06/2025 8:36 AM EST) Narrative Genericuser, Audit - 07/06/2025 8:36 AM EST PICC placement performed at the bedside. The study images are for reference only and will not be interpreted by a radiologist. Placement will be determined by the bedside PICC nurse, utilizing 3CG technology. us Karen Campos APRN IMG US ORDERABLES Fin al Result documented in this encounter Visit Diagnoses Not on filedocumented in this encounter Additional Health Concerns Assessment Noted Time PHQ-9 Depression Total Score: 2 07/04/20 2:43 PM EST PHQ-2 Depression Total Score: 2 07/04/20 2:43 PM EST documented as of this encounter
--- OUTSIDE RECORDS SUMMARY | 2025-08-14 15:23 | XMS_ITS | Clinical Summary ---
Author Organization [facility] Address [address] [place] [address] Care Team Providers Care Gambling Monitor Name Role Phone Unavailable Primary Care Provider [...] age to complete this topic Insurance [facility]ET[facility]
--- OUTSIDE RECORDS SUMMARY | 2025-08-14 15:24 | XMS_ITS | Clinical Summary ---
Author Organization [facility] Address [facility] [place] [address] Phone Care Team Providers Care Ruling Machine Set Up Operator Name Role Phone Unavailable Primary Care [...] 5 Active nalOXone (NARCAN) 4 mg/actuation Nasl [place], Non-Aerosol [place] the contents of one device (0.1mL) into [...] 2:25 PM EST): -- Ativan, Vistaril, Seroquel MOTION GRAPHICS ARTIST. Continued -- psychiatry consulted -- more anxiety issues - psychiatry re-consulted. Assessment & Plan (07/09/2025 11:09 AM EST): -- Ativan, Vistaril, Seroquel MOTION GRAPHICS ARTIST. Continued -- psychiatry consulted Assessment & Plan (07/08/2025 8:21 PM EST): -- Ativan, Vistaril, Seroquel MOTION GRAPHICS ARTIST. Continued -- psychiatry consulted Assessment & Plan (07/08/2025 7:47 PM EST): -- Ativan, Vistaril, Seroquel MOTION GRAPHICS ARTIST. Continued -- psychiatry consulted Assessment & Plan (07/06/2025 10:27 PM EST): -- Ativan, Vistaril, Seroquel MOTION GRAPHICS ARTIST. Continued -- psychiatry consulted Assessment & Plan (07/06/2025 12:36 AM EST): -- Ativan, Vistaril, Seroquel MOTION GRAPHICS ARTIST. Continued Assessment & Plan (07/06/2025 12:18 AM EST): -- Ativan, Vistaril, Seroquel MOTION GRAPHICS ARTIST. Continued Vitamin D insufficiency 07/06/2025 Assessment & [...] 2:25 PM EST): -- Ativan, Vistaril, Seroquel MOTION GRAPHICS ARTIST. Continued -- psychiatry consulted -- more anxiety issues - psychiatry re-consulted. Assessment & Plan (07/09/2025 11:09 AM EST): -- Ativan, Vistaril, Seroquel MOTION GRAPHICS ARTIST. Continued -- psychiatry consulted Assessment & Plan (07/08/2025 8:21 PM EST): -- Ativan, Vistaril, Seroquel MOTION GRAPHICS ARTIST. Continued -- psychiatry consulted Assessment & Plan (07/08/2025 7:47 PM EST): -- Ativan, Vistaril, Seroquel MOTION GRAPHICS ARTIST. Continued -- psychiatry consulted Assessment & Plan (07/06/2025 10:27 PM EST): -- Ativan, Vistaril, Seroquel MOTION GRAPHICS ARTIST. Continued -- psychiatry consulted Underweight 07/05/2025 Assessment [...] kcal, 252 g carb, 3.1 mg carb/kg/min. [id number]% of protein needs and low range of calorie needs. Oral intake is dependent on pts pain, therefore any oral intake is a bonus. Medical Food Supplements: Glucerna Therapeutic; Beneprotein Vitamin and Mineral Supplements: Calcium; Vitamin D; Sodium; Chloride (Clinimix E) Nutrition-Related Medication Management: Protonix Collaboration And Referral Of Nutrition Care: Collaboration with other providers ([employer] LOADER, RN, Pharmacist) -- B12 and folate wnl. [...] 3/1 mg carb/kg/min. @ Goal TPN will [id number]% of protein needs and low range of calorie needs. Oral intake is dependent on pts pain, therefore any oral intake is a bonus. Medical Food Supplements: Glucerna Therapeutic; Beneprotein Vitamin and Mineral Supplements: Vitamin D (w/Clinimix E) Nutrition-Related Medication Management: Protonix Collaboration And Referral Of Nutrition Care: Collaboration with other providers ([employer] LOADER, RN, Pharmacist) -- B12 and folate wnl. [...] Of Nutrition Care: Collaboration with other providers ([employer] LOADER, RN, Pharmacist) -- B12 and folate wnl. [...] Of Nutrition Care: Collaboration with other providers ([employer] LOADER, RN, Pharmacist) -- B12 and folate wnl. [...] 3/1 mg carb/kg/min. @ Goal TPN will [id number]% of protein needs and low range of [...] kcal, 252 g carb, 3.1 mg carb/kg/min. [id number]% of protein needs and low range of calorie needs. Oral intake is dependent on pts pain, therefore any oral intake is a bonus. Medical Food Supplements: Glucerna Therapeutic; Beneprotein Vitamin and Mineral Supplements: Calcium; Vitamin D; Sodium; Chloride (Clinimix E) Nutrition-Related Medication Management: Protonix Collaboration And Referral Of Nutrition Care: Collaboration with other providers ([employer] LOADER, RN, Pharmacist) -- B12 and folate wnl. [...] 3/1 mg carb/kg/min. @ Goal TPN will [id number]% of protein needs and low range of [...] 3/1 mg carb/kg/min. @ Goal TPN will [id number]% of protein needs and low range of [...] 3/1 mg carb/kg/min. @ Goal TPN will [id number]% of protein needs and low range of calorie needs. Oral intake is dependent on pts pain, therefore any oral intake is a bonus. Medical Food Supplements: Glucerna Therapeutic; Beneprotein Vitamin and Mineral Supplements: Vitamin D (w/Clinimix E) Nutrition-Related Medication Management: Protonix, LR's @ 75 ml/hr Collaboration And Referral Of Nutrition Care: Collaboration with other providers ([employer] LOADER, RN) -- B12 and folate wnl. Iron [...] Plan (07/10/2025 2:25 PM EST): -- Augmentin MOTION GRAPHICS ARTIST. Continued -- improving Assessment & Plan (07/09/2025 11:09 AM EST): -- Augmentin MOTION GRAPHICS ARTIST. Continued -- improving Assessment & Plan (07/08/2025 8:21 PM EST): -- Augmentin MOTION GRAPHICS ARTIST. Continued -- improving Assessment & Plan (07/08/2025 7:47 PM EST): -- Augmentin MOTION GRAPHICS ARTIST. Continued -- improving Assessment & Plan (07/06/2025 10:27 PM EST): -- Augmentin MOTION GRAPHICS ARTIST. Continued -- improving Assessment & Plan (07/06/2025 12:38 AM EST): -- Augmentin MOTION GRAPHICS ARTIST. Continued -- improving Assessment & Plan (07/06/2025 12:18 AM EST): -- Augmentin MOTION GRAPHICS ARTIST. Continued Persistent recurrent vomiting 07/05/2025 Assessment & Plan (07/10/2025 4:36 PM EST): -- OTC PPI MOTION GRAPHICS ARTIST. Continued -- pain management, supportive care, IVF [...] (07/09/2025 3:03 PM EST): -- OTC PPI MOTION GRAPHICS ARTIST. Continued -- pain management, supportive care, IVF [...] (07/08/2025 8:21 PM EST): -- OTC PPI MOTION GRAPHICS ARTIST. Continued -- pain management, supportive care, IVF [...] (07/08/2025 8:27 PM EST): -- OTC PPI MOTION GRAPHICS ARTIST. Continued -- pain management, supportive care, IVF [...] (07/06/2025 10:27 PM EST): -- OTC PPI MOTION GRAPHICS ARTIST. Continued -- pain management, supportive care, IVF [...] (07/06/2025 12:36 AM EST): -- OTC PPI MOTION GRAPHICS ARTIST. Continued -- pain management, supportive care, IVF [...] (07/06/2025 12:18 AM EST): -- OTC PPI MOTION GRAPHICS ARTIST -- in setting of gastric bypass surgery, hx of marginal ulcers, PUD, cannabis use Generalized abdominal pain 07/04/2025 Assessment & Plan (07/10/2025 4:36 PM EST): -- OTC PPI MOTION GRAPHICS ARTIST. Continued -- pain management, supportive care, IVF [...] (07/09/2025 3:03 PM EST): -- OTC PPI MOTION GRAPHICS ARTIST. Continued -- pain management, supportive care, IVF [...] (07/08/2025 8:21 PM EST): -- OTC PPI MOTION GRAPHICS ARTIST. Continued -- pain management, supportive care, IVF [...] (07/08/2025 8:27 PM EST): -- OTC PPI MOTION GRAPHICS ARTIST. Continued -- pain management, supportive care, IVF [...] (07/06/2025 10:27 PM EST): -- OTC PPI MOTION GRAPHICS ARTIST. Continued -- pain management, supportive care, IVF [...] (07/06/2025 12:36 AM EST): -- OTC PPI MOTION GRAPHICS ARTIST. Continued -- pain management, supportive care, IVF [...] (07/06/2025 12:18 AM EST): -- OTC PPI MOTION GRAPHICS ARTIST -- in setting of gastric bypass surgery, hx of marginal ulcers, PUD, cannabis use History of endometrial cancer 07/04/2025 Assessment & Plan (07/11/2025 12:02 AM EST): d History of gastric bypass 07/04/2025 Assessment & Plan (07/10/2025 4:36 PM EST): -- OTC PPI MOTION GRAPHICS ARTIST. Continued -- pain management, supportive care, IVF [...] (07/09/2025 3:03 PM EST): -- OTC PPI MOTION GRAPHICS ARTIST. Continued -- pain management, supportive care, IVF [...] (07/08/2025 8:21 PM EST): -- OTC PPI MOTION GRAPHICS ARTIST. Continued -- pain management, supportive care, IVF [...] (07/08/2025 8:27 PM EST): -- OTC PPI MOTION GRAPHICS ARTIST. Continued -- pain management, supportive care, IVF [...] (07/06/2025 10:27 PM EST): -- OTC PPI MOTION GRAPHICS ARTIST. Continued -- pain management, supportive care, IVF [...] (07/06/2025 12:36 AM EST): -- OTC PPI MOTION GRAPHICS ARTIST. Continued -- pain management, supportive care, IVF [...] (07/06/2025 12:18 AM EST): -- OTC PPI MOTION GRAPHICS ARTIST -- in setting of gastric bypass surgery, [...] (07/10/2025 4:36 PM EST): -- OTC PPI MOTION GRAPHICS ARTIST. Continued -- pain management, supportive care, IVF [...] (07/09/2025 3:03 PM EST): -- OTC PPI MOTION GRAPHICS ARTIST. Continued -- pain management, supportive care, IVF [...] (07/08/2025 8:21 PM EST): -- OTC PPI MOTION GRAPHICS ARTIST. Continued -- pain management, supportive care, IVF [...] (07/08/2025 8:27 PM EST): -- OTC PPI MOTION GRAPHICS ARTIST. Continued -- pain management, supportive care, IVF [...] (07/06/2025 10:27 PM EST): -- OTC PPI MOTION GRAPHICS ARTIST. Continued -- pain management, supportive care, IVF [...] (07/06/2025 12:36 AM EST): -- OTC PPI MOTION GRAPHICS ARTIST. Continued -- pain management, supportive care, IVF [...] (07/06/2025 12:18 AM EST): -- OTC PPI MOTION GRAPHICS ARTIST -- in setting of gastric bypass surgery, [...] 2:25 PM EST): -- Ativan, Vistaril, Seroquel MOTION GRAPHICS ARTIST. Continued -- psychiatry consulted -- more anxiety issues - psychiatry re-consulted. Assessment & Plan (07/09/2025 11:09 AM EST): -- Ativan, Vistaril, Seroquel MOTION GRAPHICS ARTIST. Continued -- psychiatry consulted Assessment & Plan (07/08/2025 8:21 PM EST): -- Ativan, Vistaril, Seroquel MOTION GRAPHICS ARTIST. Continued -- psychiatry consulted Assessment & Plan (07/08/2025 7:47 PM EST): -- Ativan, Vistaril, Seroquel MOTION GRAPHICS ARTIST. Continued -- psychiatry consulted Assessment & Plan (07/06/2025 10:27 PM EST): -- Ativan, Vistaril, Seroquel MOTION GRAPHICS ARTIST. Continued -- psychiatry consulted Assessment & Plan (07/06/2025 12:36 AM EST): -- Ativan, Vistaril, Seroquel MOTION GRAPHICS ARTIST. Continued Assessment & Plan (07/06/2025 12:18 AM EST): -- Ativan, Vistaril, Seroquel MOTION GRAPHICS ARTIST. Continued GERD (gastroesophageal reflux disease) Assessment & Plan (07/10/2025 4:36 PM EST): -- OTC PPI MOTION GRAPHICS ARTIST. Continued -- pain management, supportive care, IVF [...] (07/09/2025 3:03 PM EST): -- OTC PPI MOTION GRAPHICS ARTIST. Continued -- pain management, supportive care, IVF [...] (07/08/2025 8:21 PM EST): -- OTC PPI MOTION GRAPHICS ARTIST. Continued -- pain management, supportive care, IVF [...] (07/08/2025 8:27 PM EST): -- OTC PPI MOTION GRAPHICS ARTIST. Continued -- pain management, supportive care, IVF [...] (07/06/2025 10:27 PM EST): -- OTC PPI MOTION GRAPHICS ARTIST. Continued -- pain management, supportive care, IVF [...] (07/06/2025 12:36 AM EST): -- OTC PPI MOTION GRAPHICS ARTIST. Continued -- pain management, supportive care, IVF [...] (07/06/2025 12:18 AM EST): -- OTC PPI MOTION GRAPHICS ARTIST -- in setting of gastric bypass surgery, [...] AM EST): -- not on any meds MOTION GRAPHICS ARTIST -- patient reports that BP been running on low side for awhile -- monitor -- 07/10/2025 in acceptable range Assessment & Plan (07/09/2025 3:03 PM EST): -- not on any meds MOTION GRAPHICS ARTIST -- monitor -- 07/09/2025 in acceptable range Assessment & Plan (07/08/2025 8:21 PM EST): -- not on any meds MOTION GRAPHICS ARTIST -- monitor -- 07/07/2025 in acceptable range Assessment & Plan (07/08/2025 7:47 PM EST): -- not on any meds MOTION GRAPHICS ARTIST -- monitor -- 07/08/2025 in acceptable range Assessment & Plan (07/06/2025 10:27 PM EST): -- not on any meds MOTION GRAPHICS ARTIST -- monitor -- 07/06/2025 in acceptable range Assessment & Plan (07/06/2025 12:36 AM EST): -- not on any meds MOTION GRAPHICS ARTIST -- monitor -- 07/06/2025 in acceptable range [...] (07/10/2025 4:36 PM EST): -- OTC PPI MOTION GRAPHICS ARTIST. Continued -- pain management, supportive care, IVF [...] (07/09/2025 3:03 PM EST): -- OTC PPI MOTION GRAPHICS ARTIST. Continued -- pain management, supportive care, IVF [...] (07/08/2025 8:21 PM EST): -- OTC PPI MOTION GRAPHICS ARTIST. Continued -- pain management, supportive care, IVF [...] (07/08/2025 8:27 PM EST): -- OTC PPI MOTION GRAPHICS ARTIST. Continued -- pain management, supportive care, IVF [...] (07/06/2025 10:27 PM EST): -- OTC PPI MOTION GRAPHICS ARTIST. Continued -- pain management, supportive care, IVF [...] (07/06/2025 12:36 AM EST): -- OTC PPI MOTION GRAPHICS ARTIST. Continued -- pain management, supportive care, IVF [...] (07/06/2025 12:18 AM EST): -- OTC PPI MOTION GRAPHICS ARTIST -- in setting of gastric bypass surgery, hx of marginal ulcers, PUD, cannabis use Acute exacerbation of chronic abdominal pain Assessment & Plan (07/10/2025 4:36 PM EST): -- OTC PPI MOTION GRAPHICS ARTIST. Continued -- pain management, supportive care, IVF [...] (07/09/2025 3:03 PM EST): -- OTC PPI MOTION GRAPHICS ARTIST. Continued -- pain management, supportive care, IVF [...] (07/08/2025 8:21 PM EST): -- OTC PPI MOTION GRAPHICS ARTIST. Continued -- pain management, supportive care, IVF [...] (07/08/2025 8:27 PM EST): -- OTC PPI MOTION GRAPHICS ARTIST. Continued -- pain management, supportive care, IVF [...] (07/06/2025 10:27 PM EST): -- OTC PPI MOTION GRAPHICS ARTIST. Continued -- pain management, supportive care, IVF [...] (07/06/2025 12:36 AM EST): -- OTC PPI MOTION GRAPHICS ARTIST. Continued -- pain management, supportive care, IVF [...] (07/06/2025 12:18 AM EST): -- OTC PPI MOTION GRAPHICS ARTIST -- in setting of gastric bypass surgery, hx of marginal ulcers, PUD, cannabis use Chronic pain 07/04/2025 Assessment & Plan (07/10/2025 2:25 PM EST): Chronic abdominal pain -- Lyrica MOTION GRAPHICS ARTIST. Continued -- Pain controlled with meds Assessment & Plan (07/09/2025 11:09 AM EST): Chronic abdominal pain -- Lyrica MOTION GRAPHICS ARTIST. Continued -- Pain controlled with meds Assessment & Plan (07/08/2025 8:21 PM EST): Chronic abdominal pain -- Lyrica MOTION GRAPHICS ARTIST. Continued -- Pain controlled with meds Assessment & Plan (07/08/2025 7:47 PM EST): Chronic abdominal pain -- Lyrica MOTION GRAPHICS ARTIST. Continued -- Pain controlled with meds Assessment & Plan (07/06/2025 10:27 PM EST): Chronic abdominal pain -- Lyrica MOTION GRAPHICS ARTIST. Continued -- Pain controlled with meds Assessment & Plan (07/06/2025 12:36 AM EST): Chronic abdominal pain -- Lyrica MOTION GRAPHICS ARTIST. Continued Assessment & Plan (07/06/2025 12:18 AM EST): Chronic abdominal pain -- Lyrica MOTION GRAPHICS ARTIST. Continued Other chest pain 07/04/2025 Assessment & Plan (07/10/2025 2:25 PM EST): -- cardiology consulted -- [place] to be atypical for CAD -- Suspect [...] 3:03 PM EST): -- cardiology consulted -- [place] to be atypical for CAD -- Suspect [...] 8:21 PM EST): -- cardiology consulted -- [place] to be atypical for CAD -- Suspect [...] 7:47 PM EST): -- cardiology consulted -- [place] to be atypical for CAD -- Suspect [...] 10:27 PM EST): -- cardiology consulted -- [place] to be atypical for CAD -- Suspect [...] 12:36 AM EST): -- cardiology consulted -- [place] to be atypical for CAD -- Suspect [...] AM EST): -- not on any meds MOTION GRAPHICS ARTIST -- Appears compensated -- Echo as noted above. -- 07/10/2025 no acute issues Assessment & Plan (07/09/2025 3:03 PM EST): -- not on any meds MOTION GRAPHICS ARTIST -- Appears compensated -- Echo as noted above. -- 07/09/2025 no acute issues Assessment & Plan (07/08/2025 8:21 PM EST): -- not on any meds MOTION GRAPHICS ARTIST -- Appears compensated -- Echo as noted above. -- no acute issues Assessment & Plan (07/08/2025 7:47 PM EST): -- not on any meds MOTION GRAPHICS ARTIST -- Appears compensated -- Echo as noted above. Assessment & Plan (07/06/2025 10:27 PM EST): -- not on any meds MOTION GRAPHICS ARTIST -- Appears compensated -- Echo as noted above. Assessment & Plan (07/06/2025 12:36 AM EST): -- not on any meds MOTION GRAPHICS ARTIST -- Appears compensated Assessment & Plan (07/06/2025 12:18 AM EST): -- not on any meds MOTION GRAPHICS ARTIST -- Appears compensated Abdominal pain 07/04/2025 Suicidal [...] 2:25 PM EST): -- Ativan, Vistaril, Seroquel MOTION GRAPHICS ARTIST. Continued -- psychiatry consulted -- more anxiety issues - psychiatry re-consulted. Assessment & Plan (07/09/2025 11:09 AM EST): -- Ativan, Vistaril, Seroquel MOTION GRAPHICS ARTIST. Continued -- psychiatry consulted Assessment & Plan (07/08/2025 8:21 PM EST): -- Ativan, Vistaril, Seroquel MOTION GRAPHICS ARTIST. Continued -- psychiatry consulted Assessment & Plan (07/08/2025 7:47 PM EST): -- Ativan, Vistaril, Seroquel MOTION GRAPHICS ARTIST. Continued -- psychiatry consulted Assessment & Plan (07/06/2025 10:27 PM EST): -- Ativan, Vistaril, Seroquel MOTION GRAPHICS ARTIST. Continued -- psychiatry consulted Assessment & Plan (07/06/2025 12:36 AM EST): -- Ativan, Vistaril, Seroquel MOTION GRAPHICS ARTIST. Continued Assessment & Plan (07/06/2025 12:18 AM EST): -- Ativan, Vistaril, Seroquel MOTION GRAPHICS ARTIST. Continued Insomnia due to mental disorder 04/20/2023 Assessment & Plan (07/10/2025 2:25 PM EST): -- Ativan, Vistaril, Seroquel MOTION GRAPHICS ARTIST. Continued -- psychiatry consulted -- more anxiety issues - psychiatry re-consulted. Assessment & Plan (07/09/2025 11:09 AM EST): -- Ativan, Vistaril, Seroquel MOTION GRAPHICS ARTIST. Continued -- psychiatry consulted Assessment & Plan (07/08/2025 8:21 PM EST): -- Ativan, Vistaril, Seroquel MOTION GRAPHICS ARTIST. Continued -- psychiatry consulted Assessment & Plan (07/08/2025 7:47 PM EST): -- Ativan, Vistaril, Seroquel MOTION GRAPHICS ARTIST. Continued -- psychiatry consulted Assessment & Plan (07/06/2025 10:27 PM EST): -- Ativan, Vistaril, Seroquel MOTION GRAPHICS ARTIST. Continued -- psychiatry consulted Assessment & Plan (07/06/2025 12:36 AM EST): -- Ativan, Vistaril, Seroquel MOTION GRAPHICS ARTIST. Continued Assessment & Plan (07/06/2025 12:18 AM EST): -- Ativan, Vistaril, Seroquel MOTION GRAPHICS ARTIST. Continued Major depressive disorder, recurrent, moderate 0 [...] 2:25 PM EST): -- Ativan, Vistaril, Seroquel MOTION GRAPHICS ARTIST. Continued -- psychiatry consulted -- more anxiety issues - psychiatry re-consulted. Assessment & Plan (07/09/2025 11:09 AM EST): -- Ativan, Vistaril, Seroquel MOTION GRAPHICS ARTIST. Continued -- psychiatry consulted Assessment & Plan (07/08/2025 8:21 PM EST): -- Ativan, Vistaril, Seroquel MOTION GRAPHICS ARTIST. Continued -- psychiatry consulted Assessment & Plan (07/08/2025 7:47 PM EST): -- Ativan, Vistaril, Seroquel MOTION GRAPHICS ARTIST. Continued -- psychiatry consulted Assessment & Plan (07/06/2025 10:27 PM EST): -- Ativan, Vistaril, Seroquel MOTION GRAPHICS ARTIST. Continued -- psychiatry consulted Assessment & Plan (07/06/2025 12:36 AM EST): -- Ativan, Vistaril, Seroquel MOTION GRAPHICS ARTIST. Continued Assessment & Plan (07/06/2025 12:18 AM EST): -- Ativan, Vistaril, Seroquel MOTION GRAPHICS ARTIST. Continued Nicotine dependence 04/20/2023 Assessment & Plan [...] PM EST): Chronic abdominal pain -- Lyrica MOTION GRAPHICS ARTIST. Continued -- Pain controlled with meds Assessment & Plan (07/09/2025 11:09 AM EST): Chronic abdominal pain -- Lyrica MOTION GRAPHICS ARTIST. Continued -- Pain controlled with meds Assessment & Plan (07/08/2025 8:21 PM EST): Chronic abdominal pain -- Lyrica MOTION GRAPHICS ARTIST. Continued -- Pain controlled with meds Assessment & Plan (07/08/2025 7:47 PM EST): Chronic abdominal pain -- Lyrica MOTION GRAPHICS ARTIST. Continued -- Pain controlled with meds Assessment & Plan (07/06/2025 10:27 PM EST): Chronic abdominal pain -- Lyrica MOTION GRAPHICS ARTIST. Continued -- Pain controlled with meds Assessment & Plan (07/06/2025 12:36 AM EST): Chronic abdominal pain -- Lyrica MOTION GRAPHICS ARTIST. Continued Assessment & Plan (07/06/2025 12:18 AM EST): Chronic abdominal pain -- Lyrica MOTION GRAPHICS ARTIST. Continued Common migraine without aura 07/23/2017 Encounters Date Type Department Care Team Description 07/06/2025 8:40 AM EST Ancillary Procedure [facility] [address] [place] [address] 07/05/2025 2:21 PM EST Anesthesia Event [facility] [address] [place] [address] Bolivar Stephenson MD 07/03/2025 10:21 PM EST - 07/19/2025 3:29 PM EST Hospital Encounter [facility] [address] [place] [address] Bradford Sauceda MD Myrtil, Christopher, MD Pain [...] care, and heating? Not very hard 07/04/2025 [facility] [place] [facility] - Occupational Stress [...] to get more. Often true 07/04/2025 [facility] Utilities Answer Date Recorded In the past 12 months has th e electric, gas, oil, or water company threatened to shut off services in your home? No 07/04/2025 [facility] IP Transportation Answer D ate Recorded [...] failure . [place]. Soft murmur on exam sounds like likely flow murmur but will getechocardiogram to evaluate. Chronic epigastric pain. Per primary History of anorexia. States that she has had an extensive workup [facility] unclear of etiology. States she gets sick every time she eats andhas severe abdominal pain. Will get echocardiogram if normal, no further cardiac workup. CC: Chest pain, history of heart failure, chronic epigastric pain,anorexia Subjective HPI Patient is 40 y.o. 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 The epigastric pain [...] mg Oral QID PRN Kathy Geronimo A, [employer] BARGE LOADER LORazepam (ATIVAN) tablet 1 mg 1 mg Oral BID PRN Orestes Geronimoeen A,C[employer] BO[employer] BARGE LOADER 1 mg at 07/03/25 2344 ondansetron (ZOFRAN) tablet 4 mg 4 mg Oral Q6H PRN Kathy Geronimo A,[employer] BARGE LOADER Or ondansetron (ZOFRAN) injection 4 mg 4 mg Intravenous Q6H PRN Juanpablo,Kathy A, [employer] BARGE LOADER oxyCODONE (ROXICODONE) immediate release tablet 5-10 mg 5-10 mg Oral Q4HPRN Orestes Geronimoeen A, [employer] BAR[employer] LOADER 5 mg at 07/04/25 0726 pantoprazole (PROTONIX) tablet 40 mg 40 mg Oral BID Tamara Karimi PA-C 40 mg at 07/04/25 0954 pregabalin (LYRICA) capsule 200 mg 200 mg Oral BID Orestes Geronimoeen A,[employer] BARGE LOADER 200 mg at 07/04/25 0846 QUEtiapine (SEROquel) tablet 100 mg 100 mg Oral Nightly Kathy Geronimo A, [employer] BARGE LOADER 100 mg at 07/03/25 2345 sucralfate (CARAFATE) [...] raine davies Has been admitted to [facility] -anorexia and anxiety Had bariatric surgery 4 years ago, was 365 lbs, now weighs 108 lbs. Says no one cared about my anorexia outpatient: Was going to [facility] in [place] -stopped going about 6months ago after her health declined and she was not able to makeappointments so she was released from care Also saw therapist in [place], [place] SI/SA: chronic thoughts but denied [...] reevaluate tomorrow. Will give a referral to [facility] to see if they can assist heranorexia-did explain that she has an underlying medical reason which maybe limiting factor to treatment options. She declined interest in Remeron for appetite Declines switch of Seroquel to olanzapine to help with appetite. No med changes made Ativan rx'd by her GI doc on an OP basis , continue MOTION GRAPHICS ARTIST dose Jesi Granados APRN, PMHNP This chart was completed using voice recognition technology and maycontain unintended errors. Behavioral Health Discharge from Mental Wellness Perspective: No Suspectmedically induced and ok once medically stable, but would continue tomonitor IP CONSULT TO GI Routine 07/04/2025 9:12 AM EST Procedure Note - David Peguero MD - 07/04/2025 6:33 PM ESTThis note is in progress. [facility] Consult Note Primary Care Physician: No primary care provider on file. Date of Admission: 07/03/2025 Date of Consultation: 07/04/2025 Reason for Consult: abdominal pain HPI: Alexei Castrejon is a 40 y.o. female referred to me in consultation byDr. Bradford Sauceda for evaluation of above cc. 40 YO female, unknown to our service, pmhx includes chronic pain,Estevan-Danlos disease. Patient presented to [facility] ED for acute on chronicabdominal pain , she was admitted to [facility] for further care. Patientwith history [...] Date 07/04/25 0700 - 07/05/25 0659 Shift [phone] 24 Hour Total INTAKE P.O. 360 360 [...] are well tolerated usually.. - NPO after [place] [facility] Disposition Perspective - Medically Ready for [...] by: David Rm MD, 07/04/2025 6:33 PM Senior Policy Associate [facility] [phone] [1] Medications Prior to Admission Medication Sig [...] 8:30 AM ESTThis note is in progress. [facility] Surgical Consultation Note Admit Date: 07/03/2025 LOS: 1 day Body mass index is 18.2 kg/m . IMPRESSION Active Hospital Problems Diagnosis *Generalized abdominal pain PLAN s/p gastric bypass per Dr. Fitz Velez 2020 in [place], [place] Chronic abdominal pain with acute episode [...] surgicalhistory. Patient presents per direct admission/transfer from [facility], for which she was seen for this abdominal pain andsuicidal ideations - paper chart reviewed from [facility]. Patient reports shehad a gastric bypass per Dr. Fitz Velez in 2020. She reports she has hadabdominal pain, nausea, and vomiting since that surgery. She tells me thatshe has been to [facility], [facility], and for work upand treatment and nothing has helped. She endorses taking Omeprazole oncedaily. She tells me that she eats maybe a few potato chips per day becauseeverything else hurts hard abdomen and gives her nausea and vomiting. Sheendorses taking a Women's 50+ one-a-day multivitamin. She reports to [facility] she does smoke cigarettes, but on a bad day, her max would be 5. Shedenies any alcohol use. Past abdominal surgical history significant for a total abdominalhysterectomy due to endometrial cancer, exploratory surgery due toEndometriosis, Gastric bypass, cholecystectomy, and according to her chartshe has had an appendectomy. CT abd/pelvis from 07/03/25 [facility]: no intraabdominalfindings CT abd/pelvis with contrast [...] Study: No results found for: TSH , [id number] , T3FREE Radiology: No results found. [1] Allergies Allergen Reactions Coriander & Cilantro (Coriandrum Sativum) Anaphylaxis Ibuprofen Other (See Comments) Post op bariatric [2] Current Facility-Administered Medications: acetaminophen (TYLENOL) tablet 650 mg, 650 mg, Oral, Q4H PRN, Kathy Geronimo, [employer] flu vac triv (PF) (FLULAVAL/FLUARIX) injection 0.5 mL, 0.5 mL,Intramuscular, ONCE, Zackery Villegas MD hydrOXYzine (VISTARIL) capsule 25-50 mg, 25-50 mg, Oral, QID PRN,Kathy Geronimo APRN LORazepam (ATIVAN) tablet 1 mg, 1 mg, Oral, BID PRN, Carlos Geronimo APRN, 1 mg at 07/03/25 9210 ondansetron (ZOFRAN) tablet 4 mg, 4 mg, Oral, Q6H PRN OR ondansetron(ZOFRAN) injection 4 mg, 4 mg, Intravenous, Q6H PRN, Houlehan, Kathy A,[employer] oxyCODONE (ROXICODONE) immediate release tablet 5-10 mg, 5-10 mg, Oral,Q4H PRN, Houlehan, Kathy A, [employer], 5 mg at 07/04/25 0726 pregabalin (LYRICA) capsule 200 mg, 200 mg, Oral, BID, Houlehan,Kathy A, [employer], 200 mg at 07/04/25 0846 QUEtiapine (SEROquel) tablet 100 mg, 100 mg, Oral, Nightly, Houlehan,Kathy A, [employer], 100 mg at 07/03/25 2345 [3] Past [...] of47 resultswithin the time period is included. [facility] Glucose Meter POC 82 70 - 100 mg/dL 07/19/2025 9:51 AM EST [facility] Sample Type Capillary 07/19/2025 9:51 AM EST [facility] Patient Status Non-Critical Patient 07/19/2025 9:51 AM EST [facility] Blood BLOOD SPECIMEN / Unknown 07/19/2025 9:49 AM EST 07/19/2025 9:51 AM EST us Zackery Villegas MD POINT OF CARE TEST ORDERAB LES Final Result [facility] [address] [place] [address] * (ABNORMAL) BASIC METABOLIC PANEL (07/18/2025 6:51 PM EST) Only the most recent of12 resultswithin the time period is included. Sodium 136 136 - 145 mmol/L 07/18/2025 7:26 PM EST [facility] Potassium 4.6 3.5 - 5.0 mmol/L 07/18/2025 7:26 PM EST [facility] Chloride 103 98 - 107 mmol/L 07/18/2025 7:26 PM EST [facility] Total CO2 29 22 - 29 mmol/L 07/18/2025 7:26 PM EST [facility] Anion Gap 4(L) 7 - 16 mmol/L 07/18/2025 7:26 PM EST [facility] Calcium 8.6 8.6 - 10.4 mg/dL 07/18/2025 7:26 PM EST [facility] Glucose Lvl 84 70 - 99 mg/dL 07/18/2025 7:26 PM EST [facility] BUN 17 6 - 20 mg/dL 07/18/2025 7:26 PM EST [facility] Creatinine 0.78 0.51 - 1.30 mg/dL 07/18/2025 7:26 PM EST [facility] eGFR (CKD-EPIcr 2020) 97 >=60 mL/min/1.7 3 m2 07/18/2025 7:26 PM EST [facility] Comment:Estimated GFR was ca lculated using the CKD-EPIcr (2020) equation refit without race. The equation is recommended by the National Kidney Foundation - [place] [employer] of Nephrology Task Force. Blood VENOUS BLOOD / Unknown Venipuncture / Unknown 07/18/2025 6:51 PM EST 07/18/2025 7:05 PM EST us Jayden Ragsdale MD CHEMISTRY ORDERABLES Final Res ult [facility] [address] [place] [address] * ECG AND WAVEFORMS - TELEMETRY (07/18/2025 7:03 AM EST) Only the most recent of15 resultswithin the time period is included. ECG INTERPRET NSR [facility] 07/18/2025 7:03 AM EST Narrative [facility] - 07/18/2025 8:11 AM EST ECB - ROUTINE [place] 0.15 QRS 0.10 RR 0.87 QT 0.41 QTc 0.44 See Clinical Report link for waveform capture us Unknown Provider POINT OF CARE CARDIOLOGY Final Result [facility] [address] [place] [address] * XR CHEST AP PORTABLE (07/17/2025 12:20 [...] - 4.5 mg/dL 07/17/2025 8:58 AM EST [facility] Blood VENOUS BLOOD / Unknown Venipuncture / Unknown 07/17/2025 8:33 AM EST 07/17/2025 8:39 AM EST Abelino Calderon MD CHEMISTRY ORDERABLES Final Re sult Performing Organization Address City/[facility] Co de Phone Number [facility] [address] [place] [address] * IONIZED CALCIUM - INPATIENT (07/17/2025 5:56 AM EST) Only the most recent of2 resultswithin the time period is included. Pathologist [facility] Calcium Ionized 1.18 1.12 - 1.32 mmol/L 07/17/2025 6:07 AM EST [facility] Blood VENOUS BLOOD / Unknown Venipuncture / Unknown 07/17/2025 5:56 AM EST 07/17/2025 6:01 AM EST Zackery Villegas MD CHEMISTRY ORDERABLES Final Result Performing Organization Address [facility] Co de Phone Number [facility] [address] [place] [address] * (ABNORMAL) CBC (07/17/2025 5:56 AM EST) Only the most recent of3 resultswithin the time period is included. WBC 5.1 3.7 - 10.3 x10(3)/mcL 07/17/2025 6:06 AM EST [facility] RBC 3.73(L) 3.90 - 5.20 x10(6)/mcL 07/17/2025 6:06 AM [facility] Hgb 11.0(L) 11.2 - 15.7 g/dL 07/17/2025 6:06 AM [facility] Hct 33.3(L) 34.0 - 45.0 % 07/17/2025 6:06 AM [facility] MCV 89.3 80.0 - 100.0 fL 07/17/2025 6:06 AM [facility] MCH 29.5 26.0 - 34.0 pg 07/17/2025 6:06 AM [facility] MCHC 33.0 30.7 - 35.5 g/dL 07/17/2025 6:06 AM [facility] RDW 14.0 <=14.9 % 07/17/2025 6:06 AM [facility] Platelet 196 155 - 369 x10(3)/mcL 07/17/2025 6:06 AM [facility] MPV 10.1 8.8 - 12.5 fL 07/17/2025 6:06 AM [facility] Blood VENOUS BLOOD / Unknown Venipuncture / Unknown 07/17/2025 5:56 AM EST 07/17/2025 6:01 AM EST Stephanie Adamson [employer] HEMATOLOGY ORDERABLES F inal Result [facility] [address] [place] [address] * PARTIAL THROMBOPLASTIN TIME (07/17/2025 5:56 AM EST) Only the most recent of3 resultswithin the time period is included. PTT 30.3 25.7 - 36.8 second(s) 07/17/2025 6:15 AM [facility] Comment: Therapeutic range for unfractionated heparin: 50.1 [...] EST 07/17/2025 6:02 AM EST Stephanieestefany Adamson [employer] HEMATOLOGY ORDERABLES F inal Result [facility] [address] [place] [address] * PT / INR (07/17/2025 5:56 AM EST) Only the most recent of3 resultswithin the time period is included. PT 11.6 10.5 - 13.6 second(s) 07/17/2025 6:15 AM EST [facility] INR 1.01 0.91 - 1.18 (ratio) 07/17/2025 6:15 AM EST [facility] Comment: Level of Therapy Indications Target INR Range Standard Dose Treatment and prophylaxis of venous 2.0 - 3.0 thrombosis, pulmonary embolism High Dose High risk patients with mechanical 2.5 - 3.5 heart valves Blood VENOUS BLOOD / Unknown Venipuncture / Unknown 07/17/2025 5:56 AM EST 07/17/2025 6:02 AM EST Stephanie Adamson [employer] HEMATOLOGY ORDERABLES F inal Result [facility] [address] [place] [address] * TRIGLYCERIDES (07/17/2025 5:56 AM EST) Only the most recent of4 resultswithin the time period is included. Triglyceride 44 <150 mg/dL 07/17/2025 8:07 AM EST [employer] Comment: < 150 Normal 150 - 199 Borderline High 200 - 499 High >= 500 Very High Blood VENOUS BLOOD / Unknown Venipuncture / Unknown 07/17/2025 5:56 AM EST 07/17/2025 6:01 AM EST Stephanie Adamson [employer] CHEMISTRY ORDERABLES Fi nal Result Performing Organization Address City/[facility] Co de Phone Number [facility] [employer] [facility] [address] [facility] , [address] [place] [phone] * (ABNORMAL) PREALBUMIN (07/17/2025 5:56 AM EST) Only the most recent of4 resultswithin the time period is included. Prealbumin 16.9(L) 20.0 - 40.0 mg/dL 07/17/2025 8:04 AM EST [facility] [employer] Blood VENOUS BLOOD / Unknown Venipuncture / Unknown 07/17/2025 5:56 AM EST 07/17/2025 6:01 AM EST Stephanie Adamson [employer] CHEMISTRY ORDERABLES Fi nal Result Performing Organization Address [facility] de Phone Number [facility] [employer] [address] , [place] [address] * MAGNESIUM LEVEL (07/17/2025 5:56 AM EST) Only the most recent of9 resultswithin the time period is included. Magnesium 2.1 1.6 - 2.4 mg/dL 07/17/2025 6:23 AM EST [facility] Blood VENOUS BLOOD / Unknown Venipuncture / Unknown 07/17/2025 5:56 AM EST 07/17/2025 6:01 AM EST Stephanie Adamson [employer] CHEMISTRY ORDERABLES Fi nal Result Performing Organization Address City/[facility] Co de Phone Number [facility] [address] [place] [address] * (ABNORMAL) HEPATIC FUNCTION PANEL (07/17/2025 5:56 AM EST) Only the most recent of5 resultswithin the time period is included. Total Protein 6.3(L) 6.4 - 8.3 gm/dL 07/17/2025 6:23 AM EST [facility] Albumin 3.4(L) 3.5 - 5.2 gm/dL 07/17/2025 6:23 AM EST [facility] Bili Direct <0.2 0.0 - 0.3 mg/dL 07/17/2025 6:23 AM EST [facility] Bili Total <0.2(L) 0.2 - 1.3 mg/dL 07/17/2025 6:23 AM EST [facility] AST 17 <=40 U/L 07/17/2025 6:23 AM EST [facility] ALT 12 <=41 U/L 07/17/2025 6:23 AM EST [facility] Alk Phos 90 36 - 123 U/L 07/17/2025 6:23 AM EST [facility] Blood VENOUS BLOOD / Unknown Venipuncture / Unknown 07/17/2025 5:56 AM EST 07/17/2025 6:01 AM EST Stephanie Adamson [employer] CHEMISTRY ORDERABLES Fi nal Result [facility] [address] [place] [address] * VA US UPPER EXTREMITY [...] is widely patent andcompressible. Abelino Calderon MD [facility] VASCULAR ORDERABLES Final Result * [facility] LOWER EXTREMITY VENOUS BILATERAL (07/14/2025 12:24 PM [...] in the bilaterallower extremities. Abelino Calderon MD [facility] VASCULAR ORDERABLES Final Result * [facility] LOWER EXTREMITY VENOUS LEFT (07/10/2025 8:10 AM [...] common femoral vein. Kathy Toscano Juanpablo FUENTES [facility] VASCULAR ORDERABLES Final Result * XR CHEST [...] ORDERABLES Lamar l Result Performing Organization Address City/[facility] Co de Phone Number [facility] [address] [place], [place] [id number] * BEDSIDE PICC INSERTION (PICC TEAM RN) (07/06/2025 10:18 AM EST) Narrative [facility] - 07/06/2025 10:18 AM EST [...] Edited Result - Final Performing Organization Address City/[facility]/ZIP Co de Phone Number [facility] [address] [place] [address] * EC ECHOCARDIOGRAM COMPLETE W [...] anastomosis Staff Staff Role Caterina Rodas RN Room Server DESTINY Brannon CRNA, MD Anesthesiologist David Rm [...] PM EST) CASE REPORT Surgical Pathology Case: [id number] Authorizing Provider: David Peguero MD Collected: 07/05/2025 1431 Ordering Location: [facility] [address] Received: 07/05/2025 1534 Pathologist: Marilou Stanton MD Specimen: Gastric, Gastric biopsies via forceps 07/06/2025 2:32 PM EST [facility] FINAL DIAGNOSIS A. Gastric biopsies: - Gastric body type mucosa with mild chronic inflammation. - Negative for H. pylori organisms on H&E stained slides. 07/06/2025 2:32 PM EST [facility] at 1432 EST GROSS DESCRIPTION A. Received in formalin and labeled with the patient's name, medical record number, and gastric biopsies are 4 fragments of yost tissue ranging from 0.5 to 0.6 cm in greatest dimension. Entirely submitted in A1. Jameana luisa Lancaster 07/06/2025 07/06/2025 2:32 PM EST [facility] MICROSCOPIC DESCRIPTION The microscopic examination may have been rendered in whole, or in part, by analyzing high-resolutio n digital images (whole slide images) on the [employer] Digital Pathology platform validated at [facility]. 07/06/2025 2:32 PM EST [facility] EMBEDDED IMAGES 07/06/2025 2:32 PM EST [facility] Tissue STOMACH STRUCTURE / Unknown 07/05/2025 2:31 PM EST 07/05/2025 3:34 PM EST us David Rm MD PATHOLOGY ORDERABLES Final Result Performing Organization Address City/[facility]/ZIP Co de Phone Number [facility] [address] [place] [address] * INTRAOP AIRWAY PLACEMENT (07/05/2025 2:24 PM EST) Narrative [facility] - 07/05/2025 2:24 PM EST Margaux Almanza CRNA 07/05/2025 2:24 PM Intraop Airway Placement: Date/Time: 07/05/2025 2:24 PM Airway type: Nasal cannula salter us Bolivar Stephenson MD [place] ANESTHESIA Final Result Performing Organization Address [facility]/ZIP Co de Phone Number [facility] [address] [place] [address] * VITAMIN B1 (THIAMINE) WHOLE BLOOD -REF LAB (07/04/2025 9:37 AM EST) Vit B1 WB 132 70 - 180 nmol/L 07/07/2025 1:33 PM EST [employer] Comment: INTERPRETIVE INFORMATION: Vitamin B1, Whole Blood This assay measures the concentration of thiamine diphosphate (TDP), the primary active form of vitamin B1. Approximately 90 percent of vitamin B1 present in whole blood is TDP. Thiamine and thiamine monophosphate, which comprise the remaining 10 percent, are not measured. This test was developed and its performance characteristics determined by [employer]. It has not been cleared or approved by the US Food and Drug Administration. This test was performed in a CLIA certified laboratory and is intended for clinical purposes. Performed By: [facility] [address] [place] [address] Hydraulic Barker Operator: Sagar Kolb MD, PhD CLIA Number: [id number] Blood VENOUS BLOOD / Unknown Venipuncture / Unknown 07/04/2025 9:37 AM EST 07/04/2025 9:52 AM EST Tamara Karimi PA-C CHEMISTRY ORDERABLES Final R esult [facility] [address] [place] [address] * NICOTINE+METABOLITE, SERUM/PLASMA - REF LAB (07/04/2025 9:36 AM EST) Cotinine, SP 157 ng/mL 07/07/2025 1:10 PM EST [employer] Nicotine, SP 17 ng/mL 07/07/2025 1:10 PM EST [facility] [employer] Comment: INTERPRETIVE INFORMATION: Nicotine and Metabolites, Serum [...] developed and its performance characteristics determined by [employer]. It has not been cleared or approved by the US Food and Drug Administration. This test was performed in a CLIA certified laboratory and is intended for clinical purposes. Performed By: [facility] [address] [place] [address] Hydraulic Barker Operator: Sagar Kolb MD, PhD CLIA Number: [id number] Blood VENOUS BLOOD / Unknown Venipuncture / Unknown 07/04/2025 9:36 AM EST 07/04/2025 9:54 AM EST Tamara Karimi PA-C CHEMISTRY ORDERABLES Final R esult Performing Organization Address [facility]/ZIP Co de Phone Number [facility] [address] [place] [address] * (ABNORMAL) IRON+TIBC (07/04/2025 9:36 AM EST) Iron 43 30 - 160 mcg/dL 07/04/2025 12:51 PM EST [facility] Transferrin 181(L) 200 - 360 mg/dL 07/04/2025 12:51 PM EST [facility] Transferrin Saturation 17(L) 20 - 50 % 07/04/2025 12:51 PM EST [facility] TIBC 253 250 - 400 mcg/dL 07/04/2025 12:51 PM EST [facility] Blood VENOUS BLOOD / Unknown Venipuncture / Unknown 07/04/2025 9:36 AM EST 07/04/2025 9:53 AM EST Tamara Karimi PA-C CHEMISTRY ORDERABLES Final R esult [facility] [address] [facility] , [place] [address] * VITAMIN B12/ FOLIC ACID (07/04/2025 9:36 AM EST) Vitamin B12 781 232 - 1,245 pg/mL 07/04/2025 1:08 PM EST [facility] [employer] Folate 6.93 >=4.80 ng/mL 07/04/2025 1:08 PM EST [facility] [employer] [facility] Blood VENOUS BLOOD / Unknown Venipuncture / Unknown 07/04/2025 9:36 AM EST 07/04/2025 9:53 AM EST Narrative [facility] [employer] [facility] - 07/04/2025 1:08 PM EST Ingestion of tarik doses of biotin (>5 mg/day) taken within 8 hours of drawing blood sample can interfere with this immunoassay test. Tamara Karimi PA-C CHEMISTRY ORDERABLES Final [facility] Performing Organization Address [facility] Phone Number [facility] [employer] [place] [phone] * (ABNORMAL) VITAMIN D 25 HYDROXY (07/04/2025 9:36 AM EST) Vit D 25 OH 27.2(L) 30.0 - 150.0 ng/mL 07/04/2025 1:08 PM EST [facility] [employer] [facility] Comment: Preferred: >= 30 ng/mL Insufficient: 21-29 [...] ORDERABLES Final R esult Performing Organization Address [facility] Co de Phone Number [facility] [employer] , [place] [address] * (ABNORMAL) CBC WITH DIFF (07/04/2025 5:48 AM EST) [facility] WBC 7.9 3.7 - 10.3 x10(3)/mcL 07/04/2025 6:14 AM EST [facility] RBC 3.56(L) 3.90 - 5.20 x10(6)/mcL 07/04/2025 6:14 AM [facility] Hgb 10.4(L) 11.2 - 15.7 g/dL 07/04/2025 6:14 AM [facility] Hct 31.6(L) 34.0 - 45.0 % 07/04/2025 6:14 AM [facility] MCV 88.8 80.0 - 100.0 fL 07/04/2025 6:14 AM [facility] MCH 29.2 26.0 - 34.0 pg 07/04/2025 6:14 AM [facility] MCHC 32.9 30.7 - 35.5 g/dL 07/04/2025 6:14 AM [facility] RDW 13.2 <=14.9 % 07/04/2025 6:14 AM [facility] Platelet 283 155 - 369 x10(3)/mcL 07/04/2025 6:14 AM [facility] MPV 9.2 8.8 - 12.5 fL 07/04/2025 6:14 AM [facility] Neut Percent 41.4 % 07/04/2025 6:14 AM [facility] Comment:Neutrophils equals s egs plus bands Imm Gran% 0.4 % 07/04/2025 6:14 AM [facility] Comment:Automated count of m etamyelocytes, myelocytes and promyelocytes. Lymph Percent 40.4 % 07/04/2025 6:14 AM [facility] [place] Percent 9.8 % 07/04/2025 6:14 AM [facility] Eos Percent 7.1 % 07/04/2025 6:14 AM [facility] Baso Percent 0.9 % 07/04/2025 6:14 AM [facility] Neut # 3.3 1.6 - 6.1 x10(3)/[facility] 07/04/2025 6:14 AM EST [facility] Comment:Neutrophils equals s egs plus bands IMMGRAN# 0.0 0.0 - 0.1 x10(3)/[facility] 07/04/2025 6:14 AM EST [facility] Comment:Automated count of m etamyelocytes, myelocytes and promyelocytes. An absolute IG <0.1 is reported as 0.0. Lymph # 3.2 1.2 - 3.9 x10(3)/[facility] 07/04/2025 6:14 AM EST [facility] [place] # 0.8 0.3 - 0.9 x10(3)/[facility] 07/04/2025 6:14 AM EST [facility] Eos# 0.6(H) 0.0 - 0.5 x10(3)/[facility] 07/04/2025 6:14 AM EST [facility] Baso # 0.1 0.0 - 0.1 x10(3)/[facility] 07/04/2025 6:14 AM EST [facility] Blood VENOUS BLOOD / Unknown Venipuncture / Unknown 07/04/2025 5:48 AM EST 07/04/2025 6:10 AM EST Kathy Geronimo C[employer] HEMATOLOGY ORDERABLES F inal Result [facility] [address] [place], [place] [id number] from Last 3 Months Insurance [facility] [address] [facility] , [address] [facility] [employer] [address] [facility] Advance Directives For more information, please contact: [phone] * Full Code (Latest Code Status on File) Date Activated Date Inactivated Comments 07/04/2025 10:29 AM 07/19/2025 7:48 PM
--- OUTSIDE RECORDS SUMMARY | 2025-08-14 15:25 | XMS_ITS | Clinical Summary ---
Author Organization [employer] ([place], [place], [place], [place], [place]) Address [address] [place] [address] Care Team Providers Care Product Craftsman Name Role Phone Luciano Falk MD Primary Care Provider + [phone] Allergies No known active allergies Social History [...] Date Reese rded Speak language other than Citizen [place] at home Not on file 09/04/2023 Want [...] age to complete [place] [id number] [facility] [employer] Care Teams Product Craftsman Relationship Specialty Start Date End Date Luciano Falk MD [address] [place] [address] [place] [address] PCP - General Adolescent Medicine 05/09/23
--- OUTSIDE RECORDS SUMMARY | 2025-08-14 15:25 | XMS_ITS | Referral Summary ---
Author Organization [employer] ([place], [place], [place], [place], [place]) Address [address] [place] [address] Care Team Providers Care Telegraph Office Manager Name Role Phone Luciano Falk MD Primary Care Provider + [phone] Allergies No known active allergies Social History [...] Date Reese rded Speak language other than [place] Islander at home Not on file 09/04/2023 Want [...] of Treatment Not on file Insurance [facility] [facility] [employer] Care Teams Telegraph Office Manager Relationship Specialty Start Date End Date Luciano Falk MD [address] [place] [address] [place] [address] PCP - General Adolescent Medicine 05/09/23
--- OUTSIDE RECORDS SUMMARY | 2025-08-14 15:25 | XMS_ITS | Clinical Summary ---
Author Organization [facility] Address [address] [place] [address] Care Team Providers Care Biotechnologist Name Role Phone Luciano Falk MD Primary Care Provider [phone] Allergies Active Allergy Reactions Criticality Noted Date [...] times a day. Active opioid or non-baclofenIn dications:Legal Adviser maritza Back pain 1 each by Intrathecal [...] How often do you attend chur or uatsdin services? Never 04/21/2023 Do you belong to any clubs o r organizations such as mandaen groups, unions, fraternal or athletic groups, or [...] Patient Health Questionnaire-2 Score 4 04/21/2023 [facility] Occupat ional Health - Occupational Stress [...] place to sleep or slept in a correction (including now)? No 11/13/2023 CAGE ASSESSMENT Answer [...] drink first t charity in the morning (EYE-GRAIN SACKER) to steady your nerves or to get rid of a hangover? 0 04/22/2023 CAGE Questionnaire Score 0 023 Utilities Answer Date Recorded In the past 12 months has th e [employer], gas, oil, or water company threatened to [...] 11/23/2020, 10/18/2020, 06/06/2015 [facility]-Depression Screening 04/21/2024 04/21/2023 [id number] Vaccine (4 - season) 2025 06/11/2023, 01/26/2021, [...] Reactive Non Reactive 04/20/2023 11:54 PM EDT [facility] Comment:Screening for HIV 1 & 2 antibodies, and P24 antigen is NONREACTIVE. No confirmatory testing is required. Blood Venous blood specimen / Unknown Venipuncture / Unknown 04/20/2023 11:18 PM EDT 04/20/2023 11:20 PM EDT Kate B Idris [employer] [facility] BLOOD ORDERABLES Lamar l Result [facility] [address] [place] [address] * Hepatitis C Antibody - ED (04/20/2023 11:18 PM EDT) Hepatitis C Antibody Negative Negative 04/20/2023 11:49 PM EDT [facility] Blood Venous blood specimen / Unknown Venipuncture / Unknown 04/20/2023 11:18 PM EDT 04/20/2023 11:20 PM EDT Kate Marinmond [employer] [facility] BLOOD ORDERABLES [facility] [address] [place] [address] from Last 3 Months or Most Recently Relevant to Health Maintenance Insurance [employer] Advance Directives Documents on File Type Date Recorded Patient Department Secretary Expl madhav Advance Directives and Lesvia g Will 11/16/2023 8:16 AM * Full Code (Latest Code Status on File) Date Activated Date Inactivated Comments 11/13/2023 6:14 AM 11/15/2023 3:09 AM Question Answer Comments Patient has decision-making capacity? Yes * Full Code Date Activated Date Inactivated Comments 04/21/2023 12:10 AM 04/24/2023 4:04 PM Question Answer Comments Patient has decision-making capacity? Yes Care Teams Biotechnologist Relationship Specialty Start Date End Date Luciano Falk MD [facility] [id number] PCP - General Internal Medicine 04/20/23
[2025-08-14 15:31] LABS: Hematocrit 38.1 % (37.0-47.0); Hemoglobin 12.3 g/dL (12.2-16.2); Immature Granulocytes % 0.4 %; Mean Corpuscular HGB Conc 32.3 g/dL (31.8-35.4); Mean Corpuscular Hemoglobin 29.3 pg (27.0-31.2); Mean Corpuscular Volume 90.7 fl (81-99); Nucleated Red Blood Cells % 0 %; Platelet Count 264 K/mm3 (142-424); Red Blood Count 4.20 M/mm3 (4.20-5.40); Red Cell Distribution Width-SD 47.4 fL; White Blood Count 7.9 K/mm3 (4.8-10.8)
[2025-08-14 15:37] LABS: Albumin Level 4.4 g/dl (3.5-5.0); Chloride 100 mmol/L (98-107); Potassium 4.1 mmoL/L (3.5-5.1); Sodium 137 mmol/L (136-145)
[2025-08-14 15:40] LABS: Alanine Aminotransferase 27 U/L (12-78); Albumin/Globulin Ratio 1.2 (1.1-1.8); Alkaline Phosphatase 87 U/L (38-126); Anion Gap 11.1 mEq/L (5-15); Aspartate Amino Transferase 35 U/L (14-36); Bilirubin,Total 0.2 mg/dl (0.2-1.3); Blood Urea Nitrogen 30 mg/dl (7-17); Calcium 9.7 mg/dl (8.4-10.2); Carbon Dioxide 30 mmol/L (22.0-30.0); Cholesterol 147 mg/dl (140-200); Creatinine,Serum 1.00 mg/dl (0.52-1.04); Estimated Glomerular Filt Rate 61 ml/min (>60); GFR (African American) 74 ML/MIN (>60); Globulin 3.6 g/dL (1.3-3.2); Glucose 137 mg/dl (74-100); HDL Cholesterol 71 mg/dl (40-60); Total Protein,Serum 8.0 g/dl (6.3-8.2); Triglycerides 80 mg/dl (30-150)
== END 2025-08-14 23:59 | disposition home or self-care (01) ==
PROVIDERS: PCP Nurse Practitioner Family; Visit Provider Nurse Practitioner Family
DX: Z78.9 Other specified health status (principal); Z45.2 Encounter for adjustment and management of vascular access device
CPT/HCPCS: 36415; 80053; 80061; 85025; 96523